=== PATIENT | female | born 1935 | race Caucasian/White ===

== ENCOUNTER 2016-11-03 | Outpatient (CLI) | payer MEDICARE, OTHER | END 2016-11-03 20:48 | disposition critical access hospital (66) | CPT/HCPCS: A0425; A0427 ==

== ENCOUNTER 2016-11-03 21:03 | Inpatient (IN) | payer MEDICARE, OTHER ==
[2016-11-03] MEDS ORDERED: IPRATROPIUM/ALBUTEROL 3 ML NEB INH STA (21:25)
[2016-11-03] MEDS ORDERED: DEXAMETHASONE 10 MG/ML VIAL IVP STA (21:26)
[2016-11-03] MEDS ORDERED: IPRATROPIUM/ALBUTEROL 3 ML NEB INH ONE (21:32)
[2016-11-03] MEDS ORDERED: DEXAMETHASONE 10 MG/ML VIAL ONE (21:35)
[2016-11-03] MEDS ORDERED: CHERRY SYRUP 10 ML UDC PO ONE (21:35)
[2016-11-03] MEDS ORDERED: OSELTAMIVIR 75 MG CAPSULE PO STA (22:00)
[2016-11-03] MEDS ORDERED: OSELTAMIVIR 75 MG CAPSULE PO ONE (22:03)
[2016-11-03] MEDS ORDERED: ALBUTEROL NEB 2.5 MG/3 ML INH STA ×2 (22:04→22:28)
[2016-11-03] MEDS ORDERED: ALBUTEROL NEB 2.5 MG/3 ML INH ONE ×2 (22:14→22:29)
[2016-11-03] MEDS ORDERED: ONDANSETRON 4 MG/2 ML VIAL IVP PRN (22:43)
[2016-11-03] MEDS ORDERED: SODIUM CHLORIDE FLUSH 0.9% 10 ML SYRINGE IVP PRN (22:43)
[2016-11-03] MEDS ORDERED: ACETAMINOPHEN 325 MG TABLET PO PRN (22:43)
[2016-11-03] MEDS ORDERED: PROCHLORPERAZINE 10 MG/2 ML VIAL IVP PRN (22:43)
[2016-11-03] MEDS ORDERED: HYDROcod/ACETAM 5/325 MG TABLET PO PRN (22:43)
[2016-11-03] MEDS ORDERED: ZOLPIDEM 5 MG TABLET PO PRN (22:43)
[2016-11-03] MEDS ORDERED: ALBUTEROL NEB 2.5 MG/3 ML INH PRN (22:43)
[2016-11-03] MEDS ORDERED: HYDROcod/ACETAM 10 MG/325 MG TABLET PO PRN (22:43)
[2016-11-03] MEDS: IPRATROPIUM/ALBUTEROL 3 ML NEB INH SCH (23:45)
[2016-11-04] MEDS: AZITHROMYCIN INJ 500 MG in SODIUM CHLORIDE 0.9% 250 ML IV SCH ×2 (00:12→22:51)
[2016-11-04] MEDS: methylPREDNISolone SUCCINATE 40 MG/ML VIAL IVP SCH ×3 (06:28→22:51)
[2016-11-04] MEDS: PANTOPRAZOLE 40 MG TABLET PO SCH (06:28)
[2016-11-04] MEDS: SODIUM CHLORIDE FLUSH 0.9% 10 ML SYRINGE IVP SCH ×3 (06:29→20:28)
[2016-11-04] MEDS: IPRATROPIUM/ALBUTEROL 3 ML NEB INH SCH ×4 (07:15→20:10)
[2016-11-04] MEDS: FENOFIBRATE 48 MG TABLET PO SCH (08:10)
[2016-11-04] MEDS: ASPIRIN EC 81 MG TABLET PO SCH (08:10)
[2016-11-04] MEDS: LISINOPRIL 5 MG TABLET PO SCH (08:10)
[2016-11-04] MEDS: LORATADINE 10 MG TABLET PO SCH (08:10)
[2016-11-04] MEDS: hydroCHLOROthiazide 25 MG TABLET PO SCH (08:11)
[2016-11-04] MEDS: METOPROLOL TARTRATE 50 MG TABLET PO SCH ×2 (08:11→20:27)
[2016-11-04] MEDS: OSELTAMIVIR 30 MG CAPSULE PO SCH ×2 (08:11→20:26)
[2016-11-04] MEDS: ENOXAPARIN 40 MG/0.4 ML SYRINGE SUBQ SCH (08:13)
[2016-11-04] MEDS: POLYETHYLENE GLYCOL 3350 17 GM PACKET PO SCH (08:14)
[2016-11-04] MEDS ORDERED: LOSARTAN 50 MG TABLET PO SCH (09:00)
[2016-11-04] MEDS: INSULIN ASPART 300 UNIT/3 ML PEN SUBQ SCH ×2 (17:10→20:27)
[2016-11-04] MEDS ORDERED: ATORVASTATIN 40 MG TABLET PO SCH (21:00)
[2016-11-05] MEDS: PANTOPRAZOLE 40 MG TABLET PO SCH (06:18)
[2016-11-05] MEDS: methylPREDNISolone SUCCINATE 40 MG/ML VIAL IVP SCH (06:19)
[2016-11-05] MEDS: SODIUM CHLORIDE FLUSH 0.9% 10 ML SYRINGE IVP SCH (06:19)
[2016-11-05] MEDS: ENOXAPARIN 40 MG/0.4 ML SYRINGE SUBQ SCH (08:07)
[2016-11-05] MEDS: METOPROLOL TARTRATE 50 MG TABLET PO SCH (08:07)
[2016-11-05] MEDS: OSELTAMIVIR 30 MG CAPSULE PO SCH (08:10)
[2016-11-05] MEDS: INSULIN ASPART 300 UNIT/3 ML PEN SUBQ SCH (08:10)
[2016-11-05] MEDS: FENOFIBRATE 48 MG TABLET PO SCH (08:10)
[2016-11-05] MEDS: hydroCHLOROthiazide 25 MG TABLET PO SCH (08:10)
[2016-11-05] MEDS: ASPIRIN EC 81 MG TABLET PO SCH (08:10)
[2016-11-05] MEDS: LISINOPRIL 5 MG TABLET PO SCH (08:10)
[2016-11-05] MEDS: LORATADINE 10 MG TABLET PO SCH (08:10)
[2016-11-05] MEDS: POLYETHYLENE GLYCOL 3350 17 GM PACKET PO SCH (08:36)
[2016-11-05] MEDS ORDERED: FERROUS SULFATE 325 MG TABLET PO SCH (09:00)
[2016-11-05] MEDS ORDERED: DOCUSATE SODIUM 250 MG CAPSULE PO SCH (09:00)
== END 2016-11-05 10:15 | disposition home or self-care (01) | DRG 194 ==
DX: J10.1 Influenza due to other identified influenza virus with other respiratory manifestations (principal); J44.1 Chronic obstructive pulmonary disease with (acute) exacerbation; J06.9 Acute upper respiratory infection, unspecified; J45.901 Unspecified asthma with (acute) exacerbation; E78.00 Pure hypercholesterolemia, unspecified; Z68.41 Body mass index [BMI] 40.0-44.9, adult; I10 Essential (primary) hypertension; Z79.82 Long term (current) use of aspirin; I25.10 Atherosclerotic heart disease of native coronary artery without angina pectoris; Z95.1 Presence of aortocoronary bypass graft; J45.909 Unspecified asthma, uncomplicated; Z95.5 Presence of coronary angioplasty implant and graft; I25.2 Old myocardial infarction; K21.9 Gastro-esophageal reflux disease without esophagitis; D72.829 Elevated white blood cell count, unspecified; T38.0X5A Adverse effect of glucocorticoids and synthetic analogues, initial encounter; E78.5 Hyperlipidemia, unspecified; Z85.3 Personal history of malignant neoplasm of breast; E66.01 Morbid (severe) obesity due to excess calories; Z81.1 Family history of alcohol abuse and dependence; Z77.22 Contact with and (suspected) exposure to environmental tobacco smoke (acute) (chronic); Z85.42 Personal history of malignant neoplasm of other parts of uterus; R09.02 Hypoxemia; M19.90 Unspecified osteoarthritis, unspecified site; M54.9 Dorsalgia, unspecified; M25.559 Pain in unspecified hip; G89.29 Other chronic pain; M25.562 Pain in left knee; M25.561 Pain in right knee; Z92.21 Personal history of antineoplastic chemotherapy; Z92.3 Personal history of irradiation

== ENCOUNTER 2017-11-08 17:08 | Outpatient (CLI) | payer MEDICARE, OTHER | END 2017-11-08 17:09 | disposition short-term general hospital (02) | LOC: EMS 17:08 | PROVIDERS: ATTEND Surgery | DX: R53.1 Weakness (principal); R42 Dizziness and giddiness; R06.02 Shortness of breath | CPT/HCPCS: A0425; A0429; A0888 ==

== ENCOUNTER 2017-11-25 08:00 | Outpatient (CLI) | payer MEDICARE, OTHER ==
[2017-11-25 19:29] LABS: INR 1.3 (0.8-1.2); PT - PROTHROMBIN TIME 14.2 secs (9.9-12.6)
[2017-11-25 19:35] LABS: CALCIUM 9.2 mg/dL (8.5-10.3); CREATININE 1.2 mg/dL (0.4-1.0)
== END 2017-11-25 23:59 | disposition home or self-care (01) ==
LOC: LAB.N 08:00
PROVIDERS: ATTEND Family Medicine
DX: I48.0 Paroxysmal atrial fibrillation (principal); I10 Essential (primary) hypertension; I50.20 Unspecified systolic (congestive) heart failure; E78.5 Hyperlipidemia, unspecified
CPT/HCPCS: 36415; 80048; 85610

== ENCOUNTER 2017-12-01 19:52 | Outpatient (CLI) | payer MEDICARE, OTHER | END 2017-12-01 19:53 | disposition critical access hospital (66) | LOC: EMS 19:52 | PROVIDERS: ATTEND Surgery | DX: R07.9 Chest pain, unspecified (principal) | CPT/HCPCS: A0425; A0427 ==

== ENCOUNTER 2017-12-01 20:13 | Emergency (ER) | payer MEDICARE, OTHER ==
--- NOTE | 2017-12-01 20:29 | ED Physician Documentation ---
PD HPI CHEST PAIN - Stated complaint Stated Complaint: CP - Chief complaint Chief Complaint: Cardiac - History obtained from History obtained from: Patient - History of Present Illness Timing - onset: Today (this morning) Timing - onset during: Rest Timing - details: Gradual onset, Now resolved, Waxing and waning Pain level now: 0 (at time of triage nurse's assessment, patient reported 3 (of 10) pain, but she tells me on my HPI that her symptoms have resolved) Quality: Other (burning) Location: Epigastric Radiation: Back, Other (chest) Improved by: Nothing Worsened by: Other (no exacerbating factors) Associated symptoms: Shortness of air (mild), Nausea, Vomiting (x 1). No: Feeling faint / dizzy, General Weakness, Palpitations Recently seen: Emergency Dept (T+R from ED 3 days ago; notes reviewed on MIN- NS and they reflect similar presentation with unremarkable w/u including blood tests and CT A/P with contrast) Review of Systems Constitutional: denies: Fever, Chills, Sweats Cardiac: reports: Chest pain / pressure. denies: Palpitations Respiratory: reports: Dyspnea. denies: Cough GI: reports: Abdominal Pain, Nausea, Vomiting. denies: Abdominal Swelling, Constipation, Diarrhea : denies: Dysuria, Frequency Musculoskeletal: reports: Back pain Neurologic: denies: Generalized weakness, Focal weakness, Numbness, Altered mental status, Headache PD PAST MEDICAL HISTORY - Past Medical History Cardiovascular: Hypertension, High cholesterol, Coronary artery disease, [place] Respiratory: Asthma, Pneumonia, Other Endocrine/Autoimmune: None GI: GERD, Colon polyps, Chronic diarrhea, Other : Kidney stones, Other HEENT: Other Psych: Anxiety, Other Musculoskeletal: Osteoarthritis, Chronic back pain Derm: None - Past Surgical History General: Cholecystectomy, Colonoscopy Ortho: Arthroscopic surgery /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 MANAGER: 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, Other Cardiovascular: CABG, Coronary stent - Present Medications Home Medications: Ambulatory Orders Medication Instructions Recorded Confirmed Albuterol Sulfate [Proair Hfa 2 puffs INH Q6H PRN 03/31/15 11/04/16 Inhaler] Aspirin [Aspir 81] 81 mg PO DAILY 03/31/15 11/03/16 Docusate Calcium 240 mg PO DAILY 03/31/15 11/03/16 Esomeprazole Magnesium 40 mg PO DAILY 03/31/15 11/03/16 Fenofibrate 160 mg PO DAILY 03/31/15 11/03/16 Hydrochlorothiazide 25 mg PO DAILY 03/31/15 11/03/16 Loratadine [Allergy Relief] 10 mg PO DAILY 03/31/15 11/03/16 Losartan Potassium 50 mg PO DAILY 03/31/15 11/03/16 Metoprolol Tartrate [Lopressor] 50 mg PO BID 03/31/15 11/03/16 [place]-3 Fatty Acids/Fish Oil 1 gm PO DAILY 03/31/15 11/04/16 [[place] 3 1,000 mg Softgel] Simvastatin 80 mg PO QPM 03/31/15 11/03/16 Docusate Sodium [Dss] 250 mg PO DAILY 11/04/16 11/04/16 Ferrous Sulfate 325 mg PO DAILY 11/04/16 11/04/16 Azithromycin 500 mg PO DAILY #3 tablet 11/05/16 Omeprazole [PriLOSEC] 10 mg PO QDAC #30 capsule 11/05/16 Oseltamivir [Tamiflu] 30 mg PO BID #16 capsule 11/05/16 - Allergies Allergies/Adverse Reactions: Allergies Allergy/AdvReac Type Severity Reaction Status Date / Time furosemide Allergy Intermediate Rash Verified 12/01/17 20:23 lisinopril AdvReac Mild Cough Verified 12/01/17 20:23 - Social History Does the pt smoke?: No Smoking Status: Never smoker Does the pt drink ETOH?: No Does the pt have substance abuse?: No - Immunizations Immunizations are current?: Yes PD ED PE NORMAL - Vitals Vital signs reviewed: Yes - General General: Alert and oriented X 3, No acute distress, Well developed/nourished - HEENT HEENT: Moist mucous membranes - Neck Neck: Supple, no meningeal sign - Cardiac Cardiac: RRR, No murmur - Respiratory Respiratory: No respiratory distress, Clear bilaterally - Abdomen Abdomen: Soft, Non tender, Non distended - Back Back: No CVA TTP - Derm Derm: Normal color, Warm and dry - Extremities Extremities: No edema - Neuro Neuro: Alert and oriented X 3 Results - Vitals Vitals: Vital Signs - 24 hr 12/01/17 12/01/17 12/01/17 20:15 20:20 21:00 Temperature 36.0 C L Heart Rate 67 68 Respiratory 16 23 Rate Blood Pressure 149/84 H 149/84 H Blood Pressure 149/84 H [Left] Blood Pressure 163/80 H [Right] O2 Saturation 95 96 12/01/17 12/01/17 21:31 22:40 Temperature 36.3 C L Heart Rate 68 69 Respiratory 18 18 Rate Blood Pressure 163/87 H 148/80 H Blood Pressure [Left] Blood Pressure [Right] O2 Saturation 94 97 Oxygen O2 Source Room air - EKG (time done) No standard instances Rate: Rate (enter#) (70) Rhythm: NSR [place]: Normal Intervals: Normal [place] QRS: Normal Ischemia: Normal ST segments, Non specific changes (flat T waves diffusely) - Labs Labs: Laboratory Tests 12/01/17 12/01/17 12/01/17 20:45 20:45 20:45 WBC 7.7 RBC 4.30 Hgb 12.9 Hct 39.5 MCV 91.9 MCH 30.0 MCHC 32.6 RDW 13.9 Plt Count 246 MPV 8.4 Neut # 5.5 Lymph # 1.5 [place] # 0.5 Eos # 0.1 Baso # 0.1 Absolute Nucleated RBC 0.00 Nucleated RBC % 0.0 PT INR APTT Sodium 135 Potassium 3.6 Chloride 102 Carbon Dioxide 24 Anion Gap 9.0 BUN 19 Creatinine 1.0 Estimated GFR (MDRD) 53 L Glucose 135 H Calcium 9.0 Total Bilirubin 0.3 AST 17 ALT 11 Alkaline Phosphatase 81 Troponin I < 0.04 Total Protein 6.7 Albumin 3.7 Globulin 3.0 Albumin/Globulin Ratio 1.2 Lipase 12 L Urine Color Urine Clarity Urine pH Ur Specific [place] Urine Protein Urine Glucose (UA) Urine Ketones Urine Occult Blood Urine Nitrite Urine Bilirubin Urine Urobilinogen Ur Leukocyte Esterase Ur Microscopic Review Urine Culture Comments 12/01/17 12/01/17 20:45 21:40 WBC RBC Hgb Hct MCV MCH MCHC RDW Plt Count MPV Neut # Lymph # [place] # Eos # Baso # Absolute Nucleated RBC Nucleated RBC % PT 29.7 H INR 2.7 H APTT 39.8 H Sodium Potassium Chloride Carbon Dioxide Anion Gap BUN Creatinine Estimated GFR (MDRD) Glucose Calcium Total Bilirubin AST ALT Alkaline Phosphatase Troponin I Total Protein Albumin Globulin Albumin/Globulin Ratio Lipase Urine Color YELLOW Urine Clarity CLEAR Urine pH 6.0 Ur Specific [place] 1.010 Urine Protein NEGATIVE Urine Glucose (UA) NEGATIVE Urine Ketones NEGATIVE Urine Occult Blood NEGATIVE Urine Nitrite NEGATIVE Urine Bilirubin NEGATIVE Urine Urobilinogen 0.2 (NORMAL) Ur Leukocyte Esterase NEGATIVE Ur Microscopic Review NOT INDICATED Urine Culture Comments NOT INDICATED PD MEDICAL DECISION MAKING - ED course Complexity details: reviewed old records (reviewed CT report and ED report from [facility] ED visit (on [facility] system)), reviewed results, re-evaluated patient, considered differential, d/w patient ED course: Patient remained asymptomatic during ED stay Departure - Departure Disposition: 01 Home, Self Care Clinical Impression: Chest pain, Abdominal pain Condition: Good Instructions: ED Abdominal Pain Unkn Cause, ED Chest Pain Atypical Unkn Cause Follow-Up: Ariela Mohan DO [Primary Care Provider] - (Tuesday as scheduled) Discharge Date/Time: 12/01/17 21:45
[2017-12-01 20:55] LABS: BASOPHILS # (AUTO) 0.1 10^3/uL (0.0-0.1); BASOPHILS % (AUTO) 0.8 %; EOSINOPHILS # (AUTO) 0.1 10^3/uL (0.0-0.7); EOSINOPHILS % (AUTO) 0.7 %; HGB - HEMOGLOBIN 12.9 g/dL (12.0-16.0); LYMPHOCYTES # (AUTO) 1.5 10^3/uL (1.5-3.5); LYMPHOCYTES % (AUTO) 19.6 %; MEAN CORPUSCULAR HGB CONC 32.6 g/dL (32.0-36.0); MEAN CORPUSCULAR VOLUME 91.9 fL (81.0-99.0); MEAN PLATELET VOLUME 8.4 fL (7.9-10.8); MONOCYTES # (AUTO) 0.5 10^3/uL (0.0-1.0); MONOCYTES % (AUTO) 6.5 %; NEUTROPHILS # (AUTO) 5.5 10^3/uL (1.5-6.6); NEUTROPHILS % (AUTO) 72.4 %; PLT - PLATELET COUNT 246 10^3/uL (130-450); RED CELL DISTRIBUTION WIDTH 13.9 % (12.0-15.0); WHITE BLOOD COUNT 7.7 x10^3/uL (4.8-10.8)
[2017-12-01 20:58] LABS: INR 2.7 (0.8-1.2); PT - PROTHROMBIN TIME 29.7 secs (9.9-12.6)
[2017-12-01 21:07] LABS: ALBUMIN 3.7 g/dL (3.2-5.5); ALBUMIN/GLOBULIN RATIO 1.2 (1.0-2.2); BILIRUBIN,TOTAL 0.3 mg/dL (0.2-1.0); TOTAL PROTEIN 6.7 g/dL (6.7-8.2)
[2017-12-01 21:46] LABS: BILIRUBIN,URINE NEGATIVE (NEGATIVE); GLUCOSE, URINE (UA) NEGATIVE (NEGATIVE); KETONES,URINE (UA) NEGATIVE (NEGATIVE); LEUKOCYTE ESTERASE, URINE NEGATIVE (NEGATIVE); NITRITE,URINE NEGATIVE (NEGATIVE); OCCULT BLOOD,URINE NEGATIVE (NEGATIVE); PROTEIN,URINE NEGATIVE (NEGATIVE); UROBILINOGEN,URINE 0.2 (NORMAL) E.U./dL (NORMAL)
[2017-12-01 21:47] LABS: CLARITY,URINE CLEAR (CLEAR)
[2017-12-01 22:48] VITALS: BP 148/80
== END 2017-12-01 21:45 | disposition home or self-care (01) ==
LOC: ED 20:13
DX: R07.9 Chest pain, unspecified (principal); R10.9 Unspecified abdominal pain; I45.81 Long QT syndrome; I10 Essential (primary) hypertension; I25.2 Old myocardial infarction; I25.10 Atherosclerotic heart disease of native coronary artery without angina pectoris; E78.00 Pure hypercholesterolemia, unspecified; Z95.1 Presence of aortocoronary bypass graft; Z95.5 Presence of coronary angioplasty implant and graft; Z79.82 Long term (current) use of aspirin
CPT/HCPCS: 36415; 80053; 81001; 81003; 83690; 84484; 85025; 85610; 85730; 87086; 93005; 99283; 99284

== ENCOUNTER 2017-12-13 10:10 | Outpatient (CLI) | payer MEDICARE, OTHER ==
[2017-12-13 13:31] LABS: GLUCOSE, URINE (UA) NEGATIVE (NEGATIVE); KETONES,URINE (UA) NEGATIVE (NEGATIVE); LEUKOCYTE ESTERASE, URINE MODERATE (NEGATIVE); NITRITE,URINE NEGATIVE (NEGATIVE); OCCULT BLOOD,URINE SMALL (NEGATIVE); PH,URINE 5.5 PH (5.0-7.5); PROTEIN,URINE NEGATIVE (NEGATIVE); UROBILINOGEN,URINE 0.2 (NORMAL) E.U./dL (NORMAL)
[2017-12-13 13:34] LABS: BILIRUBIN,URINE NEGATIVE (NEGATIVE); CLARITY,URINE CLOUDY (CLEAR); ICTOTEST,URINE NEGATIVE
[2017-12-13 13:41] LABS: BACTERIA,URINE Many /HPF (None Seen); RBC,URINE 0-5 /HPF (0-5); SQUAMOUS EPITHELIAL CELL,UR FEW Squamous (<= Few)
== END 2017-12-13 10:11 | disposition home or self-care (01) ==
LOC: LAB.R 10:10
PROVIDERS: ATTEND Psychiatry & Neurology Neurology
DX: R30.0 Dysuria (principal)
CPT/HCPCS: 81001; 81003; 87086

== ENCOUNTER 2017-12-14 12:00 | Outpatient (CLI) | payer MEDICARE, OTHER | END 2017-12-14 12:01 | disposition home or self-care (01) | LOC: LAB.R 12:00 | PROVIDERS: ATTEND Family Medicine | DX: R19.7 Diarrhea, unspecified (principal) | CPT/HCPCS: 87045; 87046; 87177; 87209; 87493 ==

== ENCOUNTER 2018-01-01 04:00 | Outpatient (CLI) | payer MEDICARE, OTHER ==
[2018-01-02 19:08] LABS: BILIRUBIN,URINE NEGATIVE (NEGATIVE); GLUCOSE, URINE (UA) NEGATIVE (NEGATIVE); KETONES,URINE (UA) NEGATIVE (NEGATIVE); LEUKOCYTE ESTERASE, URINE SMALL (NEGATIVE); NITRITE,URINE NEGATIVE (NEGATIVE); OCCULT BLOOD,URINE NEGATIVE (NEGATIVE); PH,URINE 5.5 PH (5.0-7.5); PROTEIN,URINE NEGATIVE (NEGATIVE); UROBILINOGEN,URINE 0.2 (NORMAL) E.U./dL (NORMAL)
[2018-01-02 19:17] LABS: CLARITY,URINE HAZY (CLEAR)
[2018-01-02 19:36] LABS: BACTERIA,URINE Many /HPF (None Seen); RBC,URINE 0-5 /HPF (0-5); SQUAMOUS EPITHELIAL CELL,UR FEW Squamous (<= Few)
== END 2018-01-02 08:01 | disposition home or self-care (01) ==
LOC: LAB.N 04:00
PROVIDERS: ATTEND Family Medicine
DX: R30.0 Dysuria (principal)
CPT/HCPCS: 81001; 81003; 87086

== ENCOUNTER 2018-01-18 12:30 | Outpatient (CLI) | payer MEDICARE, OTHER | END 2018-01-18 12:31 | disposition critical access hospital (66) | LOC: EMS 12:30 | PROVIDERS: ATTEND Surgery | DX: R47.81 Slurred speech (principal) | CPT/HCPCS: A0425; A0427 ==

== ENCOUNTER 2018-01-18 12:52 | Emergency (ER) | payer MEDICARE, OTHER ==
[2018-01-18 13:11] VITALS: BP 146/82
--- NOTE | 2018-01-18 13:12 | ED Physician Documentation ---
PD HPI FOCAL NEURO - Stated complaint Stated Complaint: POSS STROKE - Chief complaint Chief Complaint: Neuro - History obtained from History obtained from: Patient, EMS, Other (records review) - History of Present Illness Timing - onset: Other (82-year-old woman who per EMS report had stroke with left -sided deficits a couple of months ago. She is a history of A. fib, CABG. She is not currently on anticoagulation. She is also had uterine cancer, breast cancer. She is undergoing home health care, recently had diarrheal illness which has resolved. C. difficile tests and cultures were negative per report. She presents to the emergency department because over the last few days she has had difficulty using the right lower extremity, it is burning and giving out on her.) Review of Systems Ten Systems: 10 systems reviewed and negative Constitutional: denies: Fever, Chills Cardiac: denies: Chest pain / pressure, Palpitations Respiratory: denies: Dyspnea, Cough GI: reports: Nausea, Vomiting, Diarrhea. 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: 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, Other Cardiovascular: CABG, Coronary stent - Present Medications Home Medications: Ambulatory Orders Medication Instructions Recorded Confirmed Albuterol Sulfate [Proair Hfa 2 puffs INH Q6H PRN 03/31/15 11/04/16 Inhaler] Aspirin [Aspir 81] 81 mg PO DAILY 03/31/15 11/03/16 Docusate Calcium 240 mg PO DAILY 03/31/15 11/03/16 Esomeprazole Magnesium 40 mg PO DAILY 03/31/15 11/03/16 Fenofibrate 160 mg PO DAILY 03/31/15 11/03/16 Hydrochlorothiazide 25 mg PO DAILY 03/31/15 11/03/16 Loratadine [Allergy Relief] 10 mg PO DAILY 03/31/15 11/03/16 Losartan Potassium 50 mg PO DAILY 03/31/15 11/03/16 Metoprolol Tartrate [Lopressor] 50 mg PO BID 03/31/15 11/03/16 [place]-3 Fatty Acids/Fish Oil 1 gm PO DAILY 03/31/15 11/04/16 [[place] 3 1,000 mg Softgel] Simvastatin 80 mg PO QPM 03/31/15 11/03/16 Docusate Sodium [Dss] 250 mg PO DAILY 11/04/16 11/04/16 Ferrous Sulfate 325 mg PO DAILY 11/04/16 11/04/16 Azithromycin 500 mg PO DAILY #3 tablet 11/05/16 Omeprazole [PriLOSEC] 10 mg PO QDAC #30 capsule 11/05/16 Oseltamivir [Tamiflu] 30 mg PO BID #16 capsule 11/05/16 - Allergies Allergies/Adverse Reactions: Allergies Allergy/AdvReac Type Severity Reaction Status Date / Time furosemide Allergy Intermediate Rash Verified 12/01/17 20:23 lisinopril AdvReac Mild Cough Verified 12/01/17 20:23 - Social History Does the pt smoke?: No Smoking Status: Never smoker Does the pt drink ETOH?: No Does the pt have substance abuse?: No - Family History Family history: reports: Non contributory - Immunizations Immunizations are current?: Yes - POLST Patient has POLST: No PD ED PE NORMAL - Vitals Vital signs reviewed: Yes - General General: No acute distress, Well developed/nourished, Other (She is oriented to person and place but is fuzzy on the date) - HEENT HEENT: PERRL, EOMI - Neck Neck: Supple, no meningeal sign, No bony TTP - Cardiac Cardiac: RRR, No murmur - Respiratory Respiratory: No respiratory distress, Clear bilaterally - Abdomen Abdomen: Normal bowel sounds, Soft, Non tender - Derm Derm: Normal color, Warm and dry - Extremities Extremities: Other (The right lower extremity is pulseless, and unable to identify pedal pulses by hand or with the Doppler. It is slightly discolored compared to the left and is diffusely tender. She has normal radial pulses on the right.) - Neuro Neuro: traffic line painter 2-12 intact Eye Opening: Spontaneous Motor: Obeys Commands Verbal: Confused (slight) GCS Score: 14 - Psych Psych: Normal mood, Normal affect NIHSS - Time Time: 14:05 - Level of Consciousness Level of consciousness: (0) Alert, Keenly responsive LOC Questions: (1) Answers one Q correctly (says it is November) LOC Commands: (0) Performs both correctly - Gaze Best Gaze: (0) Normal - Visual Visual: (0) No loss - Facial Palsy Facial Palsy: (0) Normal, symmetrical movement - Motor Arms (both separate) Motor Arm (right): (0) No drift Motor Arm (left): (0) No drift - Motor Legs (both separate) Motor Leg (right): (1) Drift Motor Leg (left): (1) Drift - Limb Ataxia Limb Ataxia: (0) Absent - Sensory Sensory: (0) Normal - Best Language Best Language: (0) No aphasia - Dysarthria Dysarthria: (0) Normal - Extinction and Inattention (formally neg Extinction and inattention: (0) No abnormality - Total Score/Results Total Score/Result: 3 Results - Vitals Vitals: Vital Signs - 24 hr 01/18/18 01/18/18 12:42 13:11 Temperature 36.2 C L Heart Rate 90 88 Respiratory 18 16 Rate Blood Pressure 145/76 H 146/82 H O2 Saturation 99 99 Oxygen O2 Source Room air - EKG (time done) 1303 Rate: Rate (enter#) (91) Rhythm: NSR [place]: Normal Intervals: Normal [place] QRS: Normal Ischemia: Non specific changes Computer interpretation: Agree with computer - Labs Labs: Laboratory Tests 01/18/18 01/18/18 01/18/18 13:13 13:13 13:13 WBC 8.3 RBC 3.75 L Hgb 11.6 L Hct 35.1 L MCV 93.7 MCH 31.0 MCHC 33.1 RDW 15.2 H Plt Count 205 MPV 7.9 Neut # 6.3 Lymph # 1.4 L [place] # 0.5 Eos # 0.1 Baso # 0.0 Absolute Nucleated RBC 0.00 Nucleated RBC % 0.0 PT 11.7 INR 1.0 Sodium 137 Potassium 2.8 L Chloride 102 Carbon Dioxide 24 Anion Gap 11.0 BUN 13 Creatinine 1.3 H Estimated GFR (MDRD) 39 L Glucose 123 H Lactic Acid Calcium 8.8 Total Bilirubin 0.9 AST 32 ALT 15 Alkaline Phosphatase 72 Total Protein 6.4 L Albumin 3.4 Globulin 3.0 Albumin/Globulin Ratio 1.1 Lipase 12 L Urine Color Urine Clarity Urine pH Ur Specific [place] Urine Protein Urine Glucose (UA) Urine Ketones Urine Occult Blood Urine Nitrite Urine Bilirubin Urine Urobilinogen Ur Leukocyte Esterase Ur Microscopic Review Urine Culture Comments 01/18/18 01/18/18 13:13 14:21 WBC RBC Hgb Hct MCV MCH MCHC RDW Plt Count MPV Neut # Lymph # [place] # Eos # Baso # Absolute Nucleated RBC Nucleated RBC % PT INR Sodium Potassium Chloride Carbon Dioxide Anion Gap BUN Creatinine Estimated GFR (MDRD) Glucose Lactic Acid 1.4 Calcium Total Bilirubin AST ALT Alkaline Phosphatase Total Protein Albumin Globulin Albumin/Globulin Ratio Lipase Urine Color YELLOW Urine Clarity CLEAR Urine pH 5.5 Ur Specific [place] 1.020 Urine Protein NEGATIVE Urine Glucose (UA) NEGATIVE Urine Ketones NEGATIVE Urine Occult Blood NEGATIVE Urine Nitrite NEGATIVE Urine Bilirubin NEGATIVE Urine Urobilinogen 0.2 (NORMAL) Ur Leukocyte Esterase NEGATIVE Ur Microscopic Review NOT INDICATED Urine Culture Comments NOT INDICATED - Rads (name of study) CT Head Radiology: EMP read contemporaneously (Old Lg Right parietal infarct) 2v chest Radiology: EMP read contemporaneously (NAD) RLE arterial duplex Radiology: Discussed with rads (Per Dr. 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 She presents as a stroke code with right leg not working but also pain and is found on exam to have a pulseless leg. She was sent over to ultrasound which confirmed that she had a large arterial occlusion in that leg, she was started on a heparin drip and the case was discussed by phone with Dr. Tobias, the vascular surgeon at [facility] who accepted the patient and would like her flown because he anticipates she will need to go to the operating room posthaste. [place] were completed. Departure - Departure Disposition: 02 Transfer Acute Care Hosp Clinical Impression: Arterial occlusion, lower extremity, Stroke-like symptoms Condition: Serious Discharge Date/Time: 01/18/18 15:20
[2018-01-18 13:20] LABS: BASOPHILS % (AUTO) 0.4 %; EOSINOPHILS # (AUTO) 0.1 10^3/uL (0.0-0.7); EOSINOPHILS % (AUTO) 1.1 %; HGB - HEMOGLOBIN 11.6 g/dL (12.0-16.0); LYMPHOCYTES # (AUTO) 1.4 10^3/uL (1.5-3.5); LYMPHOCYTES % (AUTO) 16.9 %; MEAN CORPUSCULAR HGB CONC 33.1 g/dL (32.0-36.0); MEAN CORPUSCULAR VOLUME 93.7 fL (81.0-99.0); MEAN PLATELET VOLUME 7.9 fL (7.9-10.8); MONOCYTES # (AUTO) 0.5 10^3/uL (0.0-1.0); MONOCYTES % (AUTO) 5.8 %; NEUTROPHILS # (AUTO) 6.3 10^3/uL (1.5-6.6); NEUTROPHILS % (AUTO) 75.8 %; PLT - PLATELET COUNT 205 10^3/uL (130-450); RED BLOOD COUNT 3.75 10^6/uL (4.20-5.40); RED CELL DISTRIBUTION WIDTH 15.2 % (12.0-15.0); WHITE BLOOD COUNT 8.3 x10^3/uL (4.8-10.8)
[2018-01-18 13:27] LABS: PT - PROTHROMBIN TIME 11.7 secs (9.9-12.6)
[2018-01-18 13:33] LABS: ALBUMIN 3.4 g/dL (3.2-5.5); ALBUMIN/GLOBULIN RATIO 1.1 (1.0-2.2); BILIRUBIN,TOTAL 0.9 mg/dL (0.2-1.0); CALCIUM 8.8 mg/dL (8.5-10.3); CREATININE 1.3 mg/dL (0.4-1.0); TOTAL PROTEIN 6.4 g/dL (6.7-8.2)
--- NOTE | 2018-01-18 13:51 | CT Preliminary Report ---
Exam: CT HEAD W/O IMPRESSION: 1. No acute hemorrhage or mass effect. 2. 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 [facility] SITE ID: [id number]
--- NOTE | 2018-01-18 13:51 | CT Report ---
EXAM: CT HEAD EXAM DATE: 01/18/2018 01:26 PM. CLINICAL HISTORY: R side defects. COMPARISON: None. TECHNIQUE: Multiaxial CT images were obtained from the foramen magnum to the vertex. Reformats: Coron al. IV contrast: None. In accordance with CT protocol optimization, one or more of the following dose reduction techniques w ere utilized for this exam: automated exposure control, adjustment of mA and/or KV based on patient s ize, or use of iterative reconstructive technique. FINDINGS: Parenchyma: There is a moderate to large chronic-appearing area of encephalomalacia in the right temp oral lobe and parietal lobe. Negative for acute intracranial hemorrhage. There is no midline shift. N o herniation. Extraaxial Spaces: Normal for age. No subdural or epidural collections identified. Ventricles: Normal in size and position. Sinuses and Orbits: Imaged paranasal sinuses, orbits, and mastoids show no significant abnormality. Bones: There is an incidental calcified mass in the anterior right scalp measuring 9 mm in diameter. There is no calvarium fracture. Other: None. IMPRESSION: 1. No acute hemorrhage or mass effect. 2. 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 [facility] Referring Provider Line: [phone] SITE ID: [id number]
--- NOTE | 2018-01-18 14:00 | XRAY Report ---
EXAM: CHEST RADIOGRAPHY EXAM DATE: 01/18/2018 01:33 PM. CLINICAL HISTORY: CVA, afib. COMPARISON: 11/03/2016. TECHNIQUE: 2 views. FINDINGS: Lungs/Pleura: No focal opacities evident. No pleural effusion. No pneumothorax. Normal volumes. Mediastinum: Previous median sternotomy noted. Trachea is midline. Other: None. IMPRESSION: No acute cardiopulmonary abnormality. [facility] Referring Provider Line: [phone] SITE ID: [id number]
--- NOTE | 2018-01-18 14:00 | XRAY Preliminary Report ---
Exam: XR CHEST 2 VIEW X-RAY IMPRESSION: No acute cardiopulmonary abnormality. [facility] SITE ID: [id number]
[2018-01-18] MEDS ORDERED: HEPARIN 25000UNITS/500ML (D5W) 25,000 UNIT/500 ML BAG IV STA (14:04)
[2018-01-18] MEDS ORDERED: HEPARIN 5,000 UNIT/ML VIAL IVP ONE (14:04)
[2018-01-18] MEDS ORDERED: POTASSIUM CHLOR 10 MEQ/100 ML 10 MEQ/100 ML BAG IV ONE (14:27)
[2018-01-18 14:29] LABS: BILIRUBIN,URINE NEGATIVE (NEGATIVE); GLUCOSE, URINE (UA) NEGATIVE (NEGATIVE); KETONES,URINE (UA) NEGATIVE (NEGATIVE); LEUKOCYTE ESTERASE, URINE NEGATIVE (NEGATIVE); NITRITE,URINE NEGATIVE (NEGATIVE); OCCULT BLOOD,URINE NEGATIVE (NEGATIVE); PH,URINE 5.5 PH (5.0-7.5); PROTEIN,URINE NEGATIVE (NEGATIVE); UROBILINOGEN,URINE 0.2 (NORMAL) E.U./dL (NORMAL)
[2018-01-18 14:31] LABS: CLARITY,URINE CLEAR (CLEAR)
--- NOTE | 2018-01-18 15:19 | Ultrasound Report ---
EXAM: RIGHT LEG ARTERIAL DUPLEX 01/18/2018 CLINICAL INDICATION: Pulseless right leg. TECHNIQUE: Real-time sonographic vascular imaging was performed by the parachute manufacturing supervisor through the RIGHT lower extremity utilizing both color flow and Doppler spectral analysis. Multiple patient service representative static images were saved for review. RIGHT SIDE SITE PSV WAVEFORM STEN SMOKING PIPE MOUNTER -- occluded -- PSFA -- occluded -- MSFA -- occluded -- DSFA 14 monophasic -- PFA -- occluded -- POP 11 monophasic -- ZENIA 4 monophasic -- WARP SPLITTER 9 monophasic -- PER -- not well seen -- DPA -- not well seen -- FINDINGS: There is no arterial flow in the right common femoral, proximal superficial femoral, profunda femoris, or mid superficial femoral artery. There is a collateral vessel providing inflow to the distal superficial femoral artery, with monophasic flow in the distal superficial femoral, popliteal, anterior tibial, and posterior tibial arteries. The peroneal artery and dorsalis pedis were not identified. Scanning up the right external iliac flow demonstrates a small amount of flow proximally, with occlusion in the mid portion. IMPRESSION: RIGHT LEG EXTERNAL ILIAC ARTERY, COMMON FEMORAL, AND SUPERFICIAL FEMORAL OCCLUSION, WITH COLLATERAL RECONSTITUTION IN THE RIGHT DISTAL SUPERFICIAL FEMORAL ARTERY PROVIDING MONOPHASIC FLOW INTO THE CALF. CRITICAL RESULT: Results called to Dr. Segundo in the emergency department on at 2 p.m. TD: 01/18/2018 15:18 MTDD
== END 2018-01-18 15:20 | disposition short-term general hospital (02) ==
LOC: EDUNIT# → ED 12:52
DX: I74.3 Embolism and thrombosis of arteries of the lower extremities (principal); I74.5 Embolism and thrombosis of iliac artery; I25.10 Atherosclerotic heart disease of native coronary artery without angina pectoris; E78.00 Pure hypercholesterolemia, unspecified; I10 Essential (primary) hypertension; I25.2 Old myocardial infarction; C50.919 Malignant neoplasm of unspecified site of unspecified female breast; C55 Malignant neoplasm of uterus, part unspecified; R94.31 Abnormal electrocardiogram [ECG] [EKG]; I48.91 Unspecified atrial fibrillation; Z79.01 Long term (current) use of anticoagulants; Z86.73 Personal history of transient ischemic attack (TIA), and cerebral infarction without residual deficits; Z95.5 Presence of coronary angioplasty implant and graft; Z95.1 Presence of aortocoronary bypass graft; Z79.82 Long term (current) use of aspirin
CPT/HCPCS: 36415; 51701; 70450; 71046; 80053; 81001; 81003; 83605; 83690; 85025; 85610; 87086; 93005; 96365; 96375; 96376; 99284; 99285

== ENCOUNTER 2018-02-06 08:00 | Outpatient (CLI) | payer MEDICARE, OTHER ==
[2018-02-06 22:50] LABS: HGB - HEMOGLOBIN 9.3 g/dL (12.0-16.0); MEAN CORPUSCULAR HGB CONC 31.9 g/dL (32.0-36.0); MEAN CORPUSCULAR VOLUME 94.1 fL (81.0-99.0); MEAN PLATELET VOLUME 8.4 fL (7.9-10.8); RED BLOOD COUNT 3.11 10^6/uL (4.20-5.40); RED CELL DISTRIBUTION WIDTH 17.4 % (12.0-15.0); WHITE BLOOD COUNT 5.2 x10^3/uL (4.8-10.8)
== END 2018-02-06 23:59 ==
LOC: LAB.R 08:00
DX: G08 Intracranial and intraspinal phlebitis and thrombophlebitis (principal); I82.C11 Acute embolism and thrombosis of right internal jugular vein
CPT/HCPCS: 85027

== ENCOUNTER 2018-05-14 19:52 | Outpatient (CLI) | payer MEDICARE, OTHER | END 2018-05-14 19:53 | disposition critical access hospital (66) | LOC: EMS 19:52 | PROVIDERS: ATTEND Surgery | DX: R11.2 Nausea with vomiting, unspecified (principal); R10.9 Unspecified abdominal pain; R07.9 Chest pain, unspecified | CPT/HCPCS: A0425; A0427 ==

== ENCOUNTER 2018-05-14 20:15 | Inpatient (IN) | payer MEDICARE, OTHER ==
[2018-05-14] MEDS ORDERED: ONDANSETRON 4 MG/2 ML VIAL IVP STA (20:34)
--- NOTE | 2018-05-14 20:40 | ED Physician Documentation ---
PD HPI ABD PAIN - Stated complaint Stated Complaint: CHEST PAIN - Chief complaint Chief Complaint: General - History obtained from History obtained from: Patient - History of Present Illness Timing - onset: Today Timing - details: Gradual onset, Still present Quality: Cramping, Aching Location: All over / everywhere Radiation: Chest Similar symptoms before: Has not had sx before Recently seen: Not recently seen - Additional information Additional information: Patient is an 82 year old female with a history of cad and chronic yeast infections who is presenting to the emergency department for nausea, vomiting diarrhea abdominal pain and chest pain. patient reports that she has had the abdominal symptoms for the last two days but developed the chest pain about an hour ago. ems was called and patient was treated with nitro with no relief. Review of Systems Constitutional: reports: Chills. denies: Fever Eyes: reports: Reviewed and negative Nose: reports: Reviewed and negative Throat: reports: Reviewed and negative Cardiac: reports: Chest pain / pressure, Palpitations, Pedal edema Respiratory: denies: Dyspnea, Cough GI: reports: Abdominal Pain, Nausea, Vomiting, Diarrhea : denies: Dysuria, Frequency Musculoskeletal: reports: Back pain Neurologic: reports: Reviewed and negative PD PAST MEDICAL HISTORY - Past Medical History Cardiovascular: Hypertension, High cholesterol, Coronary artery disease, [place] Respiratory: Asthma, Pneumonia, Other Endocrine/Autoimmune: None GI: GERD, Colon polyps, Chronic diarrhea, Other : Kidney stones, Other HEENT: Other Psych: Anxiety, Other Musculoskeletal: Osteoarthritis, Chronic back pain Derm: None - Past Surgical History General: Cholecystectomy, Colonoscopy 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: 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, Other Cardiovascular: CABG, Coronary stent - Present Medications Home Medications: Ambulatory Orders Medication Instructions Recorded Confirmed Albuterol Sulfate [Proair Hfa 2 puffs INH Q6H PRN 03/31/15 11/04/16 Inhaler] Aspirin [Aspir 81] 81 mg PO DAILY 03/31/15 11/03/16 Docusate Calcium 240 mg PO DAILY 03/31/15 11/03/16 Esomeprazole Magnesium 40 mg PO DAILY 03/31/15 11/03/16 Fenofibrate 160 mg PO DAILY 03/31/15 11/03/16 Hydrochlorothiazide 25 mg PO DAILY 03/31/15 11/03/16 Loratadine [Allergy Relief] 10 mg PO DAILY 03/31/15 11/03/16 Losartan Potassium 50 mg PO DAILY 03/31/15 11/03/16 Metoprolol Tartrate [Lopressor] 50 mg PO BID 03/31/15 11/03/16 [place]-3 Fatty Acids/Fish Oil 1 gm PO DAILY 03/31/15 11/04/16 [[place] 3 1,000 mg Softgel] Simvastatin 80 mg PO QPM 03/31/15 11/03/16 Docusate Sodium [Dss] 250 mg PO DAILY 11/04/16 11/04/16 Ferrous Sulfate 325 mg PO DAILY 11/04/16 11/04/16 Azithromycin 500 mg PO DAILY #3 tablet 11/05/16 Omeprazole [PriLOSEC] 10 mg PO QDAC #30 capsule 11/05/16 Oseltamivir [Tamiflu] 30 mg PO BID #16 capsule 11/05/16 - Allergies Allergies/Adverse Reactions: Allergies Allergy/AdvReac Type Severity Reaction Status Date / Time furosemide Allergy Intermediate Rash Verified 05/14/18 20:25 lisinopril AdvReac Mild Cough Verified 05/14/18 20:25 - Social History Does the pt smoke?: No Smoking Status: Never smoker Does the pt drink ETOH?: No Does the pt have substance abuse?: No - Immunizations Immunizations are current?: Yes - POLST Patient has POLST: No PD ED PE NORMAL - Vitals Vital signs reviewed: Yes - General General: Alert and oriented X 3 - HEENT HEENT: Atraumatic - Cardiac Cardiac: RRR - Respiratory Respiratory: No respiratory distress, Clear bilaterally - Abdomen Abdomen: Soft - Neuro Neuro: Alert and oriented X 3, Normal speech Eye Opening: Spontaneous - Psych Psych: Normal mood PD ED PE EXPANDED - HEENT HEENT: Dry mucous membranes - Abdomen Abdomen: Tender to palpation, Epigastric, Generalized/diffuse. No: Rebound - Derm Derm: Other (rash in patient's diaper region consistent with yeast infection) Results - Vitals Vitals: Vital Signs - 24 hr 05/14/18 05/14/18 20:19 22:20 Temperature 36.6 C Heart Rate 89 96 Respiratory 18 15 Rate Blood Pressure 152/86 H 152/85 H O2 Saturation 95 100 Oxygen O2 Source Room air - EKG (time done) 2025 Rate: Rate (enter#) (93) Rhythm: NSR, Other (trigeminy) [place]: Normal Intervals: Normal MA Compare to prior EKG: Changed from prior EKG - Labs Labs: Laboratory Tests 05/14/18 05/14/18 05/14/18 20:49 20:49 20:49 WBC 6.7 RBC 4.01 L Hgb 11.6 L Hct 35.9 L MCV 89.4 MCH 29.0 MCHC 32.4 RDW 20.5 H Plt Count 253 MPV 8.5 Neut # (Auto) 4.0 Lymph # (Auto) 2.1 [place] # (Auto) 0.6 Eos # (Auto) 0.0 Baso # (Auto) 0.0 Absolute Nucleated RBC 0.00 Nucleated RBC % 0.0 Manual Slide Review Indicated Platelet Estimate NORMAL (130-450,000) Platelet Morphology NORMAL APPEARANCE RBC Morph Micro Appear 2+ POIKILOCYTOSIS Sodium 137 Potassium 2.5 L* Chloride 98 L Carbon Dioxide 25 Anion Gap 14.0 H BUN 7 Creatinine 0.5 Estimated GFR (MDRD) 119 Glucose 87 Calcium 8.3 L Total Bilirubin 1.0 AST 12 ALT < 10 L Alkaline Phosphatase 94 Troponin I < 0.04 B-Natriuretic Peptide Total Protein 6.1 L Albumin 2.6 L Globulin 3.5 Albumin/Globulin Ratio 0.7 L Lipase 27 Urine Color Urine Clarity Urine pH Ur Specific [place] Urine Protein Urine Glucose (UA) Urine Ketones Urine Occult Blood Urine Nitrite Urine Bilirubin Urine Urobilinogen Ur Leukocyte Esterase Ur Microscopic Review Urine Culture Comments 05/14/18 05/14/18 20:49 21:30 WBC RBC Hgb Hct MCV MCH MCHC RDW Plt Count MPV Neut # (Auto) Lymph # (Auto) [place] # (Auto) Eos # (Auto) Baso # (Auto) Absolute Nucleated RBC Nucleated RBC % Manual Slide Review Platelet Estimate Platelet Morphology RBC Morph Micro Appear Sodium Potassium Chloride Carbon Dioxide Anion Gap BUN Creatinine Estimated GFR (MDRD) Glucose Calcium Total Bilirubin AST ALT Alkaline Phosphatase Troponin I B-Natriuretic Peptide 96 Total Protein Albumin Globulin Albumin/Globulin Ratio Lipase Urine Color LT. YELLOW Urine Clarity CLEAR Urine pH 6.0 Ur Specific [place] <=1.005 Urine Protein NEGATIVE Urine Glucose (UA) NEGATIVE Urine Ketones 15 H Urine Occult Blood NEGATIVE Urine Nitrite NEGATIVE Urine Bilirubin NEGATIVE Urine Urobilinogen 0.2 (NORMAL) Ur Leukocyte Esterase NEGATIVE Ur Microscopic Review NOT INDICATED Urine Culture Comments NOT INDICATED - Rads (name of study) ct abd pelvis Radiology: Final report received (no acute intrabdominal pathology) PD MEDICAL DECISION MAKING - ED course Complexity details: reviewed old records, reviewed results, re-evaluated patient , considered differential, d/w patient, d/w family, d/w sr 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 Iv access was gained and labs were drawn. patient was treated with fluids, and zofran. Imaging was ordered. ekg was performed and patient was found to be in trigeminy. Patient's was found to be hypokalemic at 2.5 and potassium was started. Patient's other diagnostics were relatively unremarkable. case was discussed with the hospitalist and patient was placed in observation for further care. - Sepsis Event Vital Signs: Vital Signs - 24 hr 05/14/18 05/14/18 20:19 22:20 Temperature 36.6 C Heart Rate 89 96 Respiratory 18 15 Rate Blood Pressure 152/86 H 152/85 H O2 Saturation 95 100 Oxygen O2 Source Room air Departure - Departure Disposition: ED Place in Observation Clinical Impression: Hypokalemia, Abdominal pain Condition: Stable
[2018-05-14 20:56] LABS: BASOPHILS % (AUTO) 0.4 %; EOSINOPHILS % (AUTO) 0.4 %; HGB - HEMOGLOBIN 11.6 g/dL (12.0-16.0); LYMPHOCYTES # (AUTO) 2.1 10^3/uL (1.5-3.5); LYMPHOCYTES % (AUTO) 31.6 %; MEAN CORPUSCULAR HGB CONC 32.4 g/dL (32.0-36.0); MEAN CORPUSCULAR VOLUME 89.4 fL (81.0-99.0); MEAN PLATELET VOLUME 8.5 fL (7.9-10.8); MONOCYTES # (AUTO) 0.6 10^3/uL (0.0-1.0); MONOCYTES % (AUTO) 8.3 %; NEUTROPHILS % (AUTO) 59.3 %; PLT - PLATELET COUNT 253 10^3/uL (130-450); RED BLOOD COUNT 4.01 10^6/uL (4.20-5.40); RED CELL DISTRIBUTION WIDTH 20.5 % (12.0-15.0); WHITE BLOOD COUNT 6.7 x10^3/uL (4.8-10.8)
[2018-05-14 21:10] LABS: ALBUMIN 2.6 g/dL (3.2-5.5); ALBUMIN/GLOBULIN RATIO 0.7 (1.0-2.2); ALKALINE PHOSPHATASE 94 IU/L (42-121); ALT ALANINE AMINOTRANSFERASE < 10 IU/L (10-60); AST ASPARTATE AMINOTRANSFERASE 12 IU/L (10-42); BUN - BLOOD UREA NITROGEN 7 mg/dL (6-20); CALCIUM 8.3 mg/dL (8.5-10.3); CARBON DIOXIDE - CO2 25 mmol/L (21-32); CHLORIDE 98 mmol/L (101-111); CREATININE 0.5 mg/dL (0.4-1.0); GFR - MDRD 119 (>89); GLUCOSE 87 mg/dL (70-100); LIPASE 27 U/L (22-51); SODIUM 137 mmol/L (135-145); TOTAL PROTEIN 6.1 g/dL (6.7-8.2)
[2018-05-14 21:12] LABS: PLATELET ESTIMATE, MANUAL NORMAL (130-450,000) (NORMAL); PLATELET MORPHOLOGY NORMAL APPEARANCE (NORMAL)
[2018-05-14] MEDS ORDERED: SODIUM CHLORIDE 0.9% 1,000 ML IV ONE (21:29)
[2018-05-14] MEDS ORDERED: POTASSIUM CHLOR 10 MEQ/100 ML 10 MEQ/100 ML BAG IV ONE (21:29)
[2018-05-14 21:48] LABS: GLUCOSE, URINE (UA) NEGATIVE (NEGATIVE); KETONES,URINE (UA) 15 mg/dL (NEGATIVE); LEUKOCYTE ESTERASE, URINE NEGATIVE (NEGATIVE); NITRITE,URINE NEGATIVE (NEGATIVE); OCCULT BLOOD,URINE NEGATIVE (NEGATIVE); PROTEIN,URINE NEGATIVE (NEGATIVE); UROBILINOGEN,URINE 0.2 (NORMAL) E.U./dL (NORMAL)
[2018-05-14 21:50] LABS: BILIRUBIN,URINE NEGATIVE (NEGATIVE); CLARITY,URINE CLEAR (CLEAR); ICTOTEST,URINE NEGATIVE
[2018-05-14] MEDS ORDERED: IOPAMIDOL-300 100 ML VIAL ONE (21:52)
[2018-05-14] MEDS ORDERED: IOPAMIDOL-300 100 ML VIAL IVP ONE (23:17)
--- NOTE | 2018-05-14 23:31 | CT Report ---
Procedure Date: 05/14/2018 Accession Number: [id number] / [id number] Procedure: CT - Abdomen/Pelvis W/ CPT Code: FULL RESULT: EXAM: CT ABDOMEN AND PELVIS EXAM DATE: 05/14/2018 10:59 PM. CLINICAL HISTORY: Diffuse abdomen pain. Nausea and vomiting for 2 days. COMPARISONS: None. TECHNIQUE: Routine helical CT imaging was performed through the abdomen and pelvis. IV contrast: 100 cc of Isovue-300. Enteric contrast: No. Reconstructions: Coronal and sagittal. In accordance with CT protocol optimization, one or more of the following dose reduction techniques were utilized for this exam: automated exposure control, adjustment of mA and/or KV based on patient size, or use of iterative reconstructive technique. FINDINGS: Lung Bases: Coronary artery calcification noted. Liver: Normal. No masses. Gallbladder/Bile Ducts: Cholecystectomy. No dilated ducts. Spleen: Normal. Pancreas: Normal. Adrenal Glands: Normal. Kidneys: Small right upper pole cyst, otherwise unremarkable. Peritoneal Cavity/Bowel: Mild diverticulosis. No free fluid, free air or adenopathy. No masses or acute inflammatory process. The appendix is well visualized and normal. Pelvic Organs: 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. Unremarkable bladder. Vasculature: No aortic enlargement. Moderate atherosclerotic calcification Bones: No significant abnormality. Other: None. IMPRESSION: 1. Mild diverticulosis without diverticulitis or other acute bowel abnormality. 2. Cholecystectomy and hysterectomy noted. RADIA
[2018-05-15] MEDS ORDERED: TEMAZEPAM 15 MG CAPSULE PO PRN (00:16)
[2018-05-15] MEDS ORDERED: FLUCONAZOLE 100 MG TABLET PO STA (00:28)
--- NOTE | 2018-05-15 00:30 | HISTORY & PHYSICAL EXAMINATION ---
Chief Complaint - Chief Complaint Chief Complaint: Nausea, vomiting, abdominal and chest pain History of Present Illness - Admitted From Admitted From:: home - History Obtained From History obtained from: Pt, Pt's son, ED physician - History of Present Illness HPI Comment/Other: Mrs. Pina Middleton is a very pleasant 82-year-old female who lives with her son and has a past medical history significant for coronary artery disease, status post coronary artery bypass graft 8 or 9 years ago, left breast cancer, morbid obesity, uterine cancer, hypertension, hyperlipidemia, COPD, osteoarthritis, and gastroesophageal reflux disease. She also has a history of chronic yeast infections. Over the past few days the patient has been having increasing abdominal discomfort with nausea and vomiting; she had diarrhea 2 days ago. Her son brought her to the emergency department where she was examined and found to be in mild distress. Initial labs found the patient have significant hypokalemia with a potassium level of 2.5., And a mildly elevated anion gap of 14. She is also found to be malnourished with total protein of 6.1 and albumin of 2.6. Initial troponin was negative. A BNP was done which was within normal limits, 96. A urinalysis was done which was negative for any urinary tract infection, and a CT scan of the abdomen and pelvis was positive only for mild diverticulosis without diverticulitis or other acute bowel abnormality and noted that the patient had undergone a cholecystectomy and hysterectomy in the past. At this time, given the patient's significant hypokalemia at 2.5, her weakness and probable dehydrated state, and it is felt to be prudent to bring her into the hospital in an observation bed on telemetry, replace her electrolyte abnormalities, and rehydrate her. We will continue with the serial troponins and treat her comorbidities. 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, Other Cardiovascular: reports: CABG, Coronary stent - Family & Social History Family History: Mother: (Mother in childbirth), Father: , Cancer (Father of throat cancer), Sister: , Diabetes, Type 2, Brother: , CAD, Hyperlipidemia, Hypertension, [place] Living arrangement: At home Living Situation: With family - Substance History Use: Uses substance without health or social issues: NONE Abuse: Recurrent use of substance despite neg consequences: NONE Dependence: Experiences withdrawal or developed tolerances: NONE - POLST Patient has POLST: No POLST Status: Full Code Meds/Allgy - Home Medications Home Medications: Ambulatory Orders Medication Instructions Recorded Confirmed Albuterol Sulfate [Proair Hfa 2 puffs INH Q6H PRN 03/31/15 11/04/16 Inhaler] Aspirin [Aspir 81] 81 mg PO DAILY 03/31/15 11/03/16 Docusate Calcium 240 mg PO DAILY 03/31/15 11/03/16 Esomeprazole Magnesium 40 mg PO DAILY 03/31/15 11/03/16 Fenofibrate 160 mg PO DAILY 03/31/15 11/03/16 Hydrochlorothiazide 25 mg PO DAILY 03/31/15 11/03/16 Loratadine [Allergy Relief] 10 mg PO DAILY 03/31/15 11/03/16 Losartan Potassium 50 mg PO DAILY 03/31/15 11/03/16 Metoprolol Tartrate [Lopressor] 50 mg PO BID 03/31/15 11/03/16 [place]-3 Fatty Acids/Fish Oil 1 gm PO DAILY 03/31/15 11/04/16 [[place] 3 1,000 mg Softgel] Simvastatin 80 mg PO QPM 03/31/15 11/03/16 Docusate Sodium [Dss] 250 mg PO DAILY 11/04/16 11/04/16 Ferrous Sulfate 325 mg PO DAILY 11/04/16 11/04/16 Azithromycin 500 mg PO DAILY #3 tablet 11/05/16 Omeprazole [PriLOSEC] 10 mg PO QDAC #30 capsule 11/05/16 Oseltamivir [Tamiflu] 30 mg PO BID #16 capsule 11/05/16 - Allergies Allergies/Adverse Reactions: Allergies Allergy/AdvReac Type Severity Reaction Status Date / Time furosemide Allergy Intermediate Rash Verified 05/14/18 20:25 lisinopril AdvReac Mild Cough Verified 05/14/18 20:25 Review of Systems - Constitutional Constitutional: reports: Fatigue, Weakness, Poor appetite, Weight loss. denies : Fever, Chills - Eyes Eyes: denies: Pain, Irritation, Amaurosis, Blurred vision, Dipolpia - Ears, Nose & Throat Ears, Nose & Throat: reports: Hearing loss. denies: Ear pain, Tinnitus, Vertigo , Nasal pain, Nosebleeds, Mouth lesions - Cardiovascular Cariovascular: denies: Palpitations, Chest pain, Edema, Syncope, Orthopnea - Respiratory Respiratory: denies: Cough, Sputum production, Wheezing, Hemoptysis, Orthopnea, SOB at rest, SOB with exertion - Gastrointestinal Gastrointestinal: reports: Abdominal pain, Diarrhea, Nausea, Vomiting. denies: Rectal bleeding, Black stools, Bloody stools, Bile emesis - Genitourinary Genitourinary: denies: Dysuria, Frequency, Urgency, Hematuria - Musculoskeletal Musculoskeletal: denies: Muscle pain, Back pain, Muscle aches, Stiffness - Integumentary Integumentary: denies: Rash, Pruritis, Lesions, Dryness - Neurological Neurological: reports: General weakness. denies: Focal weakness, Headache, Dizziness - Psychiatric Psychiatric: denies: Depression, Anxiety, Suicidal, Hallucinations - Endocrine Endocrine: denies: Polyuria, Polydypsia, Polyphagia - Hematologic/Lymphatic Hematologic/Lymphatic: denies: Anemia, Bruising, Petechiae, Lymphadenopathy - All Other Systems All Other Systems: reports: Reviewed and negative Exam - Vital Signs Reviewed Vital Signs: Yes Vital Signs: Vital Signs x48h Temp Pulse Resp BP Pulse Ox 05/14/18 22:20 96 15 152/85 H 100 05/14/18 20:19 36.6 C 89 18 152/86 H 95 - Physical Exam General Appearance: positive: No acute distress, Alert Eyes Bilateral: positive: Normal inspection, PERRL, EOMI, No lid inflammation, Conjunctivae nml, No scleral icterus ENT: positive: ENT inspection nml, Pharynx nml, Dry mucous membranes. negative : Oral lesions Neck: positive: Nml inspection, Thyroid nml, No JVD, Trachea midline. negative : Thyromegaly Respiratory: positive: Chest non-tender, No respiratory distress, Breath sounds nml. negative: Wheezes, Rales, Rhonchi Cardiovascular: positive: Regular rate & rhythm, No murmur, No gallop Peripheral Pulses: positive: 1+ Abdomen: positive: Non-tender, No organomegaly, Nml bowel sounds, No distention. negative: Guarding, Rebound Back: positive: Nml inspection. negative: CVA tenderness (R), CVA tenderness (L ) Skin: positive: Color nml, No rash, Warm, Dry. negative: Cyanosis Extremities: positive: Non-tender, Full ROM, Nml appearance, No pedal edema Neurologic/Psychiatric: positive: Oriented x3, CN's nml (2-12), Motor nml, Sensation nml, Mood/affect nml Conclusion/Plan - Problem List (1) Hypokalemia Conclusion/Plan: The patient was severely hypokalemic and we are correcting with IV fluids, IV riders, and oral supplements. I am unsure as to why the patient has become so hypokalemic; does not appear to be related to her current medications. I will ask pharmacy to review. (2) Abdominal pain Conclusion/Plan: The patient has had abdominal pain, nausea, vomiting, and diarrhea. This appears to be viral gastroenteritis. We will rehydrate her, correct her electrolyte abnormalities, and start her on a clear liquid diet, advancing as tolerated. (3) HTN (hypertension) Conclusion/Plan: The patient has a history of hypertension and takes metoprolol, losartan, and hydrochlorothiazide at home. We will restart these medications while she is inpatient. If she continues to be hypertensive we will consider adding as needed clonidine. (4) Coronary artery disease Conclusion/Plan: The patient has a history of coronary artery disease and underwent a CABG about 8 or 9 years ago. There is also remote history of a myocardial infarction according to the medical records. I will restart her on her baby aspirin and medications for her dyslipidemia and hypertension. We will obtain an echocardiogram because of the [place] history. (5) Hyperlipidemia Conclusion/Plan: The patient has a history of dyslipidemia and takes fenofibrate, omega-3 fatty acids, and simvastatin at home. We will continue these while she is inpatient. (6) COPD (chronic obstructive pulmonary disease) Conclusion/Plan: Patient has a history of COPD and takes albuterol at home. We will order DuoNeb nebulizer treatments as needed. (7) Gastroesophageal reflux disease Conclusion/Plan: The patient has a history of gastroesophageal reflux disease and takes Nexium at home. We will continue this while she is inpatient. (8) History of left breast cancer Conclusion/Plan: The patient has a history of breast cancer and is status post left mastectomy. There is no evidence of recurrence at this time. (9) Morbid obesity Conclusion/Plan: The patient is morbidly obese. We will obtain a nutritional consult. - Lab Results Lab results reviewed: Yes Fish Bones: 05/14/18 20:49 05/14/18 20:49 - Diagnostic Imaging Results Diagnostic Imaging Results: positive: Final report reviewed Diagnostic Imaging Results Comments: EXAM: CT ABDOMEN AND PELVIS EXAM DATE: 05/14/2018 10:59 PM. CLINICAL HISTORY: Diffuse abdomen pain. Nausea and vomiting for 2 days. COMPARISONS: None. TECHNIQUE: Routine helical CT imaging was performed through the abdomen and pelvis. IV contrast: 100 cc of Isovue-300. Enteric contrast: No. Reconstructions: Coronal and sagittal. In accordance with CT protocol optimization, one or more of the following dose reduction techniques were utilized for this exam: automated exposure control, adjustment of mA and/or KV based on patient size, or use of iterative reconstructive technique. FINDINGS: Lung Bases: Coronary artery calcification noted. Liver: Normal. No masses. Gallbladder/Bile Ducts: Cholecystectomy. No dilated ducts. Spleen: Normal. Pancreas: Normal. Adrenal Glands: Normal. Kidneys: Small right upper pole cyst, otherwise unremarkable. Peritoneal Cavity/Bowel: Mild diverticulosis. No free fluid, free air or adenopathy. No masses or acute inflammatory process. The appendix is well visualized and normal. Pelvic Organs: 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. Unremarkable bladder. Vasculature: No aortic enlargement. Moderate atherosclerotic calcification Bones: No significant abnormality. Other: None. IMPRESSION: 1. Mild diverticulosis without diverticulitis or other acute bowel abnormality. 2. Cholecystectomy and hysterectomy noted. Core Measures - Anticipated LOS I expect patient to be DC'd or transferred within 96 hours.: Yes - DVT/VTE - Prophylaxis VTE/DVT Device ordered at admit?: Yes
[2018-05-15] MEDS ORDERED: D5.45NS W/20 MEQ KCL 1,000 ML IV SCH (01:00)
[2018-05-15] MEDS: SODIUM CHLORIDE FLUSH 0.9% 10 ML SYRINGE IVP SCH ×4 (01:05→23:22)
[2018-05-15] MEDS ORDERED: IPRATROPIUM/ALBUTEROL 3 ML NEB INH PRN (01:11)
[2018-05-15 05:50] LABS: PT - PROTHROMBIN TIME 50.5 secs (9.9-12.6)
[2018-05-15 05:51] LABS: HGB - HEMOGLOBIN 11.4 g/dL (12.0-16.0); MEAN CORPUSCULAR HEMOGLOBIN 28.9 pg (27.0-31.0); MEAN CORPUSCULAR HGB CONC 32.4 g/dL (32.0-36.0); MEAN PLATELET VOLUME 8.7 fL (7.9-10.8); RED BLOOD COUNT 3.94 10^6/uL (4.20-5.40); RED CELL DISTRIBUTION WIDTH 20.3 % (12.0-15.0); WHITE BLOOD COUNT 8.6 x10^3/uL (4.8-10.8)
[2018-05-15 05:54] LABS: INR 4.7 (0.8-1.2)
[2018-05-15 05:55] LABS: CALCIUM 8.1 mg/dL (8.5-10.3); CREATININE 0.5 mg/dL (0.4-1.0)
[2018-05-15] MEDS: PANTOPRAZOLE 40 MG TABLET PO SCH (06:15)
[2018-05-15] MEDS: HYDROcod/ACETAM 5/325 MG TABLET PO PRN (06:15)
[2018-05-15] MEDS ORDERED: MIN OIL/DIMETHICON/COCONUT OIL 92 GM TUBE TOP PRN (07:10)
[2018-05-15] MEDS ORDERED: POTASSIUM CHLORIDE 20 MEQ TABLET PO SCH (07:20)
[2018-05-15] MEDS ORDERED: POTASSIUM CHLORIDE INJ 40 MEQ in SODIUM CHLORIDE 0.9% 480 ML IV ONE (08:00)
[2018-05-15] MEDS: ASPIRIN EC 81 MG TABLET PO SCH (08:38)
[2018-05-15] MEDS: hydroCHLOROthiazide 25 MG TABLET PO SCH (08:38)
[2018-05-15] MEDS: LOSARTAN 50 MG TABLET PO SCH (08:38)
[2018-05-15] MEDS: METOPROLOL TARTRATE 50 MG TABLET PO SCH ×2 (08:38→20:35)
[2018-05-15] MEDS: POLYETHYLENE GLYCOL 3350 17 GM PACKET PO SCH (08:45)
[2018-05-15] MEDS: NYSTATIN POWDER 15 GM TOP SCH ×2 (08:46→20:39)
[2018-05-15] MEDS: CALCIUM CARBONATE CHEW 500 MG TABLET PO SCH ×2 (09:08→20:35)
[2018-05-15] MEDS ORDERED: NITROGLYCERIN SL 0.4 MG TABLET SL PRN (10:47)
[2018-05-15] MEDS ORDERED: ALBUTEROL NEB 2.5 MG/3 ML INH PRN ×2 (10:47→22:59)
[2018-05-15] MEDS ORDERED: NYSTATIN CREAM 15 GM TUBE TOP SCH (12:00)
[2018-05-15] MEDS ORDERED: PROMETHAZINE INJ 25 MG in SODIUM CHLORIDE 0.9% 50 ML IV PRN (13:08)
--- NOTE | 2018-05-15 13:12 | PROVIDER PROGRESS NOTE ---
Subjective - Prog Note Date Prog Note Date: 05/15/18 - Subjective Subjective: pt denies chest pain. pt report she burning sensation from upper epigastric to lower quadrant of abdomen. Pt denies fever, chill, cough, shortness of breath. pt report she still has some nausea and vomiting. Current Medications - Current Medications Current Medications: Active Medications Hydrocodone Bitart/Acetaminophen ([place] 5/325) 1 tab PO Q4HR PRN PRN Reason: Pain 5 to 7 Last Admin: 05/15/18 06:15 Dose: 1 tab Albuterol () 2.5 mg INH RTQ4H PRN PRN Reason: Wheezing Albuterol/Ipratropium (Duoneb) 3 ml INH Q4HR PRN PRN Reason: Wheezing Aspirin (Ecotrin) 81 mg PO DAILY [facility] Last Admin: 05/15/18 08:38 Dose: 81 mg Atorvastatin Calcium (Lipitor) 80 mg PO QPM [facility] Calcium Carbonate/Glycine (Tums) 500 mg PO BID [facility] Last Admin: 05/15/18 09:08 Dose: 500 mg Hydrochlorothiazide (Hydrodiuril) 25 mg PO DAILY [facility] Last Admin: 05/15/18 08:38 Dose: 25 mg Sodium Chloride (Normal Saline 0.9%) 1,000 mls @ 100 mls/hr IV .Q10H [facility] Promethazine HCl 25 mg/ Sodium (Chloride) 51 mls @ 100 mls/hr IV Q6H PRN PRN Reason: Nausea / Vomiting Loratadine (Claritin) 10 mg PO DAILY [facility] Losartan Potassium (Cozaar) 50 mg PO DAILY [facility] Last Admin: 05/15/18 08:38 Dose: 50 mg Metoprolol Tartrate (Lopressor) 50 mg PO BID [facility] Last Admin: 05/15/18 08:38 Dose: 50 mg Mineral Oil (Cavilon) 1 applic TOP PRN PRN PRN Reason: Skin Care Last Admin: 05/15/18 07:26 Dose: 1 applic Nitroglycerin (Nitrostat) 0.4 mg SL Q5MIN PRN PRN Reason: Chest Pain Nystatin (Nystop) 0 applic TOP BID [facility] Last Admin: 05/15/18 08:46 Dose: 1 applic Nystatin (Mycostatin Cream) 1 applic TOP BID [facility] [id number]-6-[id number] Ethyl Esters (Lovaza) 1 gm PO DAILY [facility] Pantoprazole Sodium (Protonix) 40 mg PO QDAC [facility] Last Admin: 05/15/18 06:15 Dose: 40 mg Polyethylene Glycol (Miralax) 17 gm PO DAILY [facility] Last Admin: 05/15/18 08:45 Dose: 17 gm Sodium Chloride (Normal Saline Flush 0.9%) 10 ml IVP PRN PRN PRN Reason: NEEDED PER PROVIDER ORDERS Sodium Chloride (Normal Saline Flush 0.9%) 10 ml IVP 0100,0900,1700 [facility] Last Admin: 05/15/18 08:47 Dose: Not Given Temazepam (Restoril) 15 mg PO QPM PRN PRN Reason: Insomnia Albuterol Sulfate [Proair Hfa Inhaler] 2 puffs INH Q6H PRN 03/31/15 Loratadine [Allergy Relief] 10 mg PO DAILY 03/31/15 Metoprolol Tartrate [Lopressor] 50 mg PO BID 03/31/15 [place]-3 Fatty Acids/Fish Oil [[place] 3 1,000 mg Softgel] 1 gm PO DAILY 03/31/15 Atorvastatin Calcium 80 mg PO QPM 05/15/18 Hydrocodone/Acetaminophen [Hydrocodone-Acetamin 5-325 mg] 1 tab PO BID PRN 05/15 Nitroglycerin [Nitroglycerin] 0.4 mg SL Q5MIN PRN MDD 3 DOSES 05/15/18 Ondansetron Odt [Zofran Odt] 4 mg PO Q6HR PRN 05/15/18 Pantoprazole Sodium 40 mg PO DAILY 05/15/18 Warfarin Sodium [Warfarin Sodium] 5 mg PO DAILY 05/15/18 Objective - Vital Signs/Intake & Output Reviewed Vital Signs: Yes Vital Signs: Vital Signs x48h Temp Pulse Resp BP BP Pulse Ox 05/15/18 12:39 36.6 C 77 16 108/51 L 95 05/15/18 08:38 127/76 05/15/18 07:26 36.6 C 94 18 127/76 95 Intake & Output: Intake & Output 05/12/18 05/13/18 05/14/18 05/15/18 23:59 23:59 23:59 23:59 Intake Total 2500 Balance 2500 - Objective General Appearance: positive: No acute distress, Alert. negative: Lethargic Eyes Bilateral: positive: Normal inspection, PERRL, No lid inflammation, Conjunctivae nml ENT: positive: ENT inspection nml, Pharynx nml, No signs of dehydration. negative: Purulent nasal drainage, Pharyngeal erythema, Oral lesions Neck: positive: Nml inspection, Thyroid nml, No JVD, Trachea midline. negative : Thyromegaly, Lymphadenopathy (R), Lymphadenopathy (L), Stiff neck, Swelling/ bruising, Tracheal deviation Respiratory: positive: Chest non-tender, No respiratory distress, Breath sounds nml. negative: Wheezes, Rales, Rhonchi Cardiovascular: positive: Regular rate & rhythm, No murmur, No gallop. negative : Irregularly irregular, Extrasystoles, Tachycardia, Bradycardia, JVD present, Systolic murmur, Diastolic murmur Peripheral Pulses: 2+ Radial (R), 2+ Radial (L), 2+ Dorsalis pedis (R), 2+ Dorsalis pedis (L) Abdomen: positive: Non-tender, No organomegaly, Nml bowel sounds, No distention. negative: Tenderness, Guarding, Rebound Back: positive: Nml inspection. negative: CVA tenderness (R), CVA tenderness (L ) Skin: positive: Color nml, No rash, Warm, Dry. negative: Cyanosis, Diaphoresis , Pallor Extremities: positive: Non-tender, Full ROM, Nml appearance. negative: Calf tenderness, Joint swelling, Chelsy's sign/cords Neurologic/Psychiatric: positive: Motor nml, Sensation nml. negative: Weakness , Sensory loss, Facial droop, Slurred/abnml speech, Depressed mood/affect - Lab Results Fish Bones: 05/15/18 05:35 05/15/18 12:45 Other Labs: Lab Results x24hrs 05/15/18 05/15/18 05/15/18 Range/Units 12:45 07:55 07:55 WBC (4.8-10.8) x10^3/uL RBC (4.20-5.40) 10^6/uL Hgb (12.0-16.0) g/dL Hct (37.0-47.0) % MCV (81.0-99.0) fL MCH (27.0-31.0) pg MCHC (32.0-36.0) g/dL RDW (12.0-15.0) % Plt Count (130-450) 10^3/uL MPV (7.9-10.8) fL PT (9.9-12.6) secs INR (0.8-1.2) D-Dimer < 200.0 L (200.0-255.0) ng/mL Sodium (135-145) mmol/L Potassium 4.0 (3.5-5.0) mmol/L Chloride (101-111) mmol/L Carbon Dioxide (21-32) mmol/L Anion Gap (6-13) BUN (6-20) mg/dL Creatinine (0.4-1.0) mg/dL Estimated GFR (MDRD) (>89) Glucose (70-100) mg/dL Calcium (8.5-10.3) mg/dL Troponin I < 0.04 (<0.49) ng/mL 05/15/18 05/15/18 05/15/18 Range/Units 05:35 05:35 05:35 WBC 8.6 (4.8-10.8) x10^3/uL RBC 3.94 L (4.20-5.40) 10^6/uL Hgb 11.4 L (12.0-16.0) g/dL Hct 35.1 L (37.0-47.0) % MCV 89.0 (81.0-99.0) fL MCH 28.9 (27.0-31.0) pg MCHC 32.4 (32.0-36.0) g/dL RDW 20.3 H (12.0-15.0) % Plt Count 277 (130-450) 10^3/uL MPV 8.7 (7.9-10.8) fL PT 50.5 H (9.9-12.6) secs INR 4.7 H* (0.8-1.2) D-Dimer (200.0-255.0) ng/mL Sodium 138 (135-145) mmol/L Potassium 2.8 L (3.5-5.0) mmol/L Chloride 101 (101-111) mmol/L Carbon Dioxide 25 (21-32) mmol/L Anion Gap 12.0 (6-13) BUN 5 L (6-20) mg/dL Creatinine 0.5 (0.4-1.0) mg/dL Estimated GFR (MDRD) 119 (>89) Glucose 108 H (70-100) mg/dL Calcium 8.1 L (8.5-10.3) mg/dL Troponin I (<0.49) ng/mL 05/15/18 Range/Units 05:32 WBC (4.8-10.8) x10^3/uL RBC (4.20-5.40) 10^6/uL Hgb (12.0-16.0) g/dL Hct (37.0-47.0) % MCV (81.0-99.0) fL MCH (27.0-31.0) pg MCHC (32.0-36.0) g/dL RDW (12.0-15.0) % Plt Count (130-450) 10^3/uL MPV (7.9-10.8) fL PT (9.9-12.6) secs INR (0.8-1.2) D-Dimer (200.0-255.0) ng/mL Sodium (135-145) mmol/L Potassium (3.5-5.0) mmol/L Chloride (101-111) mmol/L Carbon Dioxide (21-32) mmol/L Anion Gap (6-13) BUN (6-20) mg/dL Creatinine (0.4-1.0) mg/dL Estimated GFR (MDRD) (>89) Glucose (70-100) mg/dL Calcium (8.5-10.3) mg/dL Troponin I < 0.04 (<0.49) ng/mL ABX Reporting Has patient been on IV antibiotics over the past 48 hours?: No Assessment/Plan - Problem List (1) Hypokalemia Impression: Conclusion/Plan: resolved The patient was severely hypokalemic and we are correcting with IV fluids, IV riders, and oral supplements. I am unsure as to why the patient has become so hypokalemic; does not appear to be related to her current medications. I will ask pharmacy to review. (2) Abdominal pain Conclusion/Plan: 05/15, better, CT of abdomen is unremarkable. pt report burning sensation of upper and lower GI pain, add Tums PRN The patient has had abdominal pain, nausea, vomiting, and diarrhea. This appears to be viral gastroenteritis. We will rehydrate her, correct her electrolyte abnormalities, and start her on a clear liquid diet, advancing as tolerated. (3) HTN (hypertension) Conclusion/Plan: stable The patient has a history of hypertension and takes metoprolol, losartan, and hydrochlorothiazide at home. We will restart these medications while she is inpatient. If she continues to be hypertensive we will consider adding as needed clonidine. (4) Coronary artery disease Conclusion/Plan: stable, monitor with tele/vital The patient has a history of coronary artery disease and underwent a CABG about 8 or 9 years ago. There is also remote history of a myocardial infarction according to the medical records. I will restart her on her baby aspirin and medications for her dyslipidemia and hypertension. We will obtain an echocardiogram because of the [facility]. (5) Hyperlipidemia Conclusion/Plan: The patient has a history of dyslipidemia and takes fenofibrate, omega-3 fatty acids, and simvastatin at home. We will continue these while she is inpatient. (6) COPD (chronic obstructive pulmonary disease) Conclusion/Plan: Patient has a history of COPD and takes albuterol at home. We will order DuoNeb nebulizer treatments as needed. (7) Gastroesophageal reflux disease Conclusion/Plan: The patient has a history of gastroesophageal reflux disease and takes Nexium at home. We will continue this while she is inpatient. (8) History of left breast cancer continue support (9) nausea and vomiting it seems from pt's viral gastritis IVF, hydration antiemesis PRN daily lab and vital monitor
[2018-05-15] MEDS: SODIUM CHLORIDE 0.9% 1,000 ML IV SCH (14:10)
[2018-05-15] MEDS: MICONAZOLE CREAM (EXTRA-THICK) 92 GM TUBE TOP PRN (14:47)
[2018-05-15] MEDS: ATORVASTATIN 40 MG TABLET PO SCH (20:35)
[2018-05-15] MEDS: MICONAZOLE CREAM (EXTRA-THICK) 92 GM TUBE TOP SCH (20:35)
[2018-05-16] MEDS: SODIUM CHLORIDE 0.9% 1,000 ML IV SCH (00:02)
[2018-05-16] MEDS: HYDROcod/ACETAM 5/325 MG TABLET PO PRN ×2 (00:06→13:32)
[2018-05-16] MEDS: MICONAZOLE CREAM (EXTRA-THICK) 92 GM TUBE TOP PRN ×3 (00:24→21:52)
[2018-05-16] MEDS: PANTOPRAZOLE 40 MG TABLET PO SCH (06:16)
[2018-05-16 06:19] LABS: MEAN CORPUSCULAR HEMOGLOBIN 29.3 pg (27.0-31.0); MEAN CORPUSCULAR HGB CONC 33.1 g/dL (32.0-36.0); MEAN CORPUSCULAR VOLUME 88.4 fL (81.0-99.0); MEAN PLATELET VOLUME 7.9 fL (7.9-10.8); RED BLOOD COUNT 3.43 10^6/uL (4.20-5.40); RED CELL DISTRIBUTION WIDTH 20.3 % (12.0-15.0); WHITE BLOOD COUNT 5.4 x10^3/uL (4.8-10.8)
[2018-05-16 06:25] LABS: PT - PROTHROMBIN TIME 66.6 secs (9.9-12.6)
[2018-05-16 06:34] LABS: BUN - BLOOD UREA NITROGEN < 5 mg/dL (6-20); CALCIUM 7.8 mg/dL (8.5-10.3); CARBON DIOXIDE - CO2 28 mmol/L (21-32); CHLORIDE 106 mmol/L (101-111); CREATININE 0.5 mg/dL (0.4-1.0); GFR - MDRD 119 (>89); GLUCOSE 81 mg/dL (70-100); SODIUM 139 mmol/L (135-145)
[2018-05-16 06:41] LABS: INR 6.3 (0.8-1.2)
[2018-05-16] MEDS ORDERED: POTASSIUM CHLORIDE 20 MEQ TABLET PO ONE (07:31)
[2018-05-16] MEDS ORDERED: POTASSIUM CHLOR 10 MEQ/100 ML 10 MEQ/100 ML BAG IV ONE (07:32)
[2018-05-16] MEDS ORDERED: CALCIUM GLUCONATE 1,000 MG in SODIUM CHLORIDE 0.9% 50 ML IV ONE (07:34)
[2018-05-16 07:54] LABS: MEAN RETIC VALUE 127.8; RED BLOOD COUNT 3.42 10^6/uL (4.20-5.40)
[2018-05-16] MEDS: CALCIUM CITRATE 250 MG TABLET PO SCH ×2 (08:15→09:53)
[2018-05-16 08:20] LABS: FERRITIN 200.3 ng/mL (11.0-306.8)
[2018-05-16 08:23] LABS: % IRON SATURATION 40 % (20-50); IRON 52 ug/dL (28-170); TOTAL IRON BINDING CAPACITY 130 ug/dL (250-450); TRANSFERRIN 93 mg/dL (192-382)
[2018-05-16] MEDS ORDERED: PROCHLORPERAZINE 10 MG/2 ML VIAL IVP PRN (08:49)
[2018-05-16] MEDS: SODIUM CHLORIDE FLUSH 0.9% 10 ML SYRINGE IVP SCH ×2 (08:51→18:30)
[2018-05-16] MEDS: ONDANSETRON 4 MG/2 ML VIAL IVP PRN (08:51)
[2018-05-16] MEDS: POLYETHYLENE GLYCOL 3350 17 GM PACKET PO SCH (08:55)
[2018-05-16] MEDS: OMEGA-3 ACID ETHYL ESTERS 1 GM CAPSULE PO SCH (09:29)
[2018-05-16] MEDS: METOPROLOL TARTRATE 50 MG TABLET PO SCH ×2 (09:29→21:49)
[2018-05-16] MEDS: LOSARTAN 50 MG TABLET PO SCH (09:29)
[2018-05-16] MEDS: LORATADINE 10 MG TABLET PO SCH (09:30)
[2018-05-16] MEDS: hydroCHLOROthiazide 25 MG TABLET PO SCH (09:30)
[2018-05-16] MEDS: ASPIRIN EC 81 MG TABLET PO SCH (09:31)
[2018-05-16] MEDS: CALCIUM CARBONATE CHEW 500 MG TABLET PO SCH ×2 (09:34→21:52)
[2018-05-16] MEDS: PANTOPRAZOLE 40 MG VIAL IVP SCH ×2 (09:35→21:52)
--- NOTE | 2018-05-16 09:37 | XRAY Report ---
Procedure Date: 05/16/2018 Accession Number: [id number] / [id number] Procedure: XR - Chest 1 View X-Ray CPT Code: 54954 FULL RESULT: EXAM: CHEST RADIOGRAPHY EXAM DATE: 05/16/2018 09:12 AM. CLINICAL HISTORY: SOB. COMPARISON: 01/18/2018 TECHNIQUE: 1 view. FINDINGS: Lungs/Pleura: No focal opacities evident. No pleural effusion. No pneumothorax. Mediastinum: Status post sternotomy and coronary artery bypass. Grossly normal heart size. Other: Surgical clips left axilla. IMPRESSION: Clear lungs. No acute findings. [facility]
[2018-05-16] MEDS: NYSTATIN POWDER 15 GM TOP SCH ×2 (09:54→21:52)
[2018-05-16] MEDS: MICONAZOLE CREAM (EXTRA-THICK) 92 GM TUBE TOP SCH ×2 (09:54→21:53)
[2018-05-16 11:06] LABS: BILIRUBIN,URINE NEGATIVE (NEGATIVE); GLUCOSE, URINE (UA) NEGATIVE (NEGATIVE); KETONES,URINE (UA) NEGATIVE (NEGATIVE); LEUKOCYTE ESTERASE, URINE NEGATIVE (NEGATIVE); NITRITE,URINE NEGATIVE (NEGATIVE); OCCULT BLOOD,URINE NEGATIVE (NEGATIVE); PROTEIN,URINE NEGATIVE (NEGATIVE); UROBILINOGEN,URINE 0.2 (NORMAL) E.U./dL (NORMAL)
[2018-05-16 11:10] LABS: CLARITY,URINE CLEAR (CLEAR)
[2018-05-16] MEDS: NS W/20 MEQ KCL 1,000 ML IV SCH (11:33)
[2018-05-16 11:38] LABS: BACTERIA,URINE Rare /HPF (None Seen); RBC,URINE None Seen /HPF (0-5); SQUAMOUS EPITHELIAL CELL,UR FEW Squamous (<= Few)
--- NOTE | 2018-05-16 12:31 | CT Report ---
Procedure Date: 05/16/2018 Accession Number: [id number] / [id number] Procedure: CT - Head W/O CPT Code: FULL RESULT: EXAM: CT HEAD EXAM DATE: 05/16/2018 10:36 AM. CLINICAL HISTORY: Headache. COMPARISON: 01/18/2018. TECHNIQUE: Multiaxial CT images were obtained from the foramen magnum to the vertex. Reformats: Sagittal and coronal. IV contrast: None. In accordance with CT protocol optimization, one or more of the following dose reduction techniques were utilized for this exam: automated exposure control, adjustment of mA and/or KV based on patient size, or use of iterative reconstructive technique. FINDINGS: Parenchyma: No intraparenchymal hemorrhage. No evidence of mass, midline shift, or CT findings of acute infarction. 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 Nino-white differentiation is distinct. Extraaxial Spaces: Normal for age. No subdural or epidural collections identified. Ventricles: Normal in size and position. Sinuses and Orbits: Imaged paranasal sinuses, orbits, and mastoids show no significant abnormality. Bones: No evidence of fracture or calvarial defect. 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 Other: No acute findings since 01/18/2018. IMPRESSION: Negative for an acute intracranial process or significant change compared with 01/18/2018. Chronic changes are present. [facility]IA
[2018-05-16] MEDS: SACCHAROMYCES BOULARDII 250 MG CAPSULE PO SCH ×2 (13:32→18:42)
--- NOTE | 2018-05-16 13:45 | PROVIDER PROGRESS NOTE ---
Subjective - Prog Note Date Prog Note Date: 05/16/18 - Subjective Pt reports feeling: No change Subjective: pt still complain of nausea and vomiting. he abdominal pain is controlled. she report she did not have much appetite as well. She denies cough, fever, chill, chest pain, shortness of breath. Current Medications - Current Medications Current Medications: Active Medications Hydrocodone Bitart/Acetaminophen ([place] 5/325) 1 tab PO Q4HR PRN PRN Reason: Pain 5 to 7 Last Admin: 05/16/18 13:32 Dose: 1 tab Albuterol () 2.5 mg INH Q6HR PRN PRN Reason: Wheezing Last Admin: 05/16/18 08:29 Dose: 2.5 mg Aspirin (Ecotrin) 81 mg PO DAILY REPLACED BY [facility] Last Admin: 05/16/18 09:31 Dose: 81 mg Atorvastatin Calcium (Lipitor) 80 mg PO QPM [facility]PL[facility] BY [facility] Last Admin: 05/15/18 20:35 Dose: 80 mg Calcium Carbonate/Glycine (Tums) 500 mg PO BID [facility] Last Admin: 05/16/18 09:34 Dose: 500 mg Calcium Citrate () 250 mg PO DAILY [facility] Last Admin: 05/16/18 09:53 Dose: 250 mg Carboxymethylcellulose (Refresh 1% Ophth Drops) 1 drops EACHEYE Q4HR PRN PRN Reason: Dry Eye Hydrochlorothiazide (Hydrodiuril) 25 mg PO DAILY [facility] Last Admin: 05/16/18 09:30 Dose: 25 mg Promethazine HCl 25 mg/ Sodium (Chloride) 51 mls @ 100 mls/hr IV Q6H PRN PRN Reason: Nausea / Vomiting Potassium Chloride/Sodium Chloride (Normal Saline 0.9% W/20 Meq Kcl) 1,000 mls @ 85 mls/hr IV .[id number] REPLACED BY [facility] Last Infusion: 05/16/18 13:42 Dose: 0 mls/hr Loratadine (Claritin) 10 mg PO DAILY [facility] Last Admin: 05/16/18 09:30 Dose: 10 mg Losartan Potassium (Cozaar) 50 mg PO DAILY [facility] Last Admin: 05/16/18 09:29 Dose: 50 mg Metoprolol Tartrate (Lopressor) 50 mg PO BID [facility] Last Admin: 05/16/18 09:29 Dose: 50 mg Miconazole (Secura Extra-Thick) 1 applic TOP BID [facility]PL[facility] BY [facility] Last Admin: 05/16/18 09:54 Dose: 1 applic Miconazole (Secura Extra-Thick) 1 applic TOP PRN PRN PRN Reason: AFFECTED SKIN Last Admin: 05/16/18 09:54 Dose: 1 applic Mineral Oil (Cavilon) 1 applic TOP PRN PRN PRN Reason: Skin Care Last Admin: 05/15/18 07:26 Dose: 1 applic Multivitamins/Minerals (Theragran M) 1 tab PO DAILYWM REPLACED BY [facility] Nitroglycerin (Nitrostat) 0.4 mg SL Q5MIN PRN PRN Reason: Chest Pain Nystatin (Nystop) 0 applic TOP BID [facility]PL[facility] BY [facility] Last Admin: 05/16/18 09:54 Dose: Not Given Detzw-8-Jjyn Ethyl Esters (Lovaza) 1 gm PO DAILY [facility]PL[facility] BY [facility] Last Admin: 05/16/18 09:29 Dose: 1 gm Ondansetron HCl (Zofran Inj) 4 mg IVP Q4HR PRN PRN Reason: Nausea / Vomiting Last Admin: 05/16/18 08:51 Dose: 4 mg Pantoprazole Sodium (Protonix) 40 mg IVP BID [facility]PL[facility] BY [facility] Last Admin: 05/16/18 09:35 Dose: 40 mg Polyethylene Glycol (Miralax) 17 gm PO DAILY [facility]PL[facility] BY [facility] Last Admin: 05/16/18 08:55 Dose: Not Given Prochlorperazine Edisylate (Compazine Inj) 10 mg IVP Q4HR PRN PRN Reason: Nausea / Vomiting Saccharomyces Boulardii (Florastor) 250 mg PO BIDWM REPLACED BY [facility] Last Admin: 05/16/18 13:32 Dose: 250 mg Sodium Chloride (Normal Saline Flush 0.9%) 10 ml IVP PRN PRN PRN Reason: NEEDED PER PROVIDER ORDERS Sodium Chloride (Normal Saline Flush 0.9%) 10 ml IVP 0100,0900,1700 REPLACED BY [facility] Last Admin: 05/16/18 08:51 Dose: 10 ml Temazepam (Restoril) 15 mg PO QPM PRN PRN Reason: Insomnia Albuterol Sulfate [Proair Hfa Inhaler] 2 puffs INH Q6H PRN 03/31/15 Loratadine [Allergy Relief] 10 mg PO DAILY 03/31/15 Metoprolol Tartrate [Lopressor] 50 mg PO BID 07/06/15 [place]-3 Fatty Acids/Fish Oil [[place] 3 1,000 mg Softgel] 1 gm PO DAILY 03/31/15 Atorvastatin Calcium 80 mg PO QPM 05/15/18 Hydrocodone/Acetaminophen [Hydrocodone-Acetamin 5-325 mg] 1 tab PO BID PRN 05/15 Nitroglycerin [Nitroglycerin] 0.4 mg SL Q5MIN PRN MDD 3 DOSES 05/15/18 Ondansetron Odt [Zofran Odt] 4 mg PO Q6HR PRN 05/15/18 Pantoprazole Sodium 40 mg PO DAILY 05/15/18 Warfarin Sodium [Warfarin Sodium] 1.5 mg PO DAILY 05/15/18 Objective - Vital Signs/Intake & Output Reviewed Vital Signs: Yes Intake & Output: Intake & Output 05/13/18 05/14/18 05/15/18 05/16/18 23:59 23:59 23:59 23:59 Intake Total 392.75 Output Total 0 Balance 392.75 - Objective General Appearance: positive: No acute distress, Alert. negative: Lethargic Eyes Bilateral: positive: Normal inspection, PERRL, No lid inflammation, Conjunctivae nml ENT: positive: ENT inspection nml, Pharynx nml, No signs of dehydration. negative: Purulent nasal drainage, Pharyngeal erythema, Oral lesions Neck: positive: Nml inspection, Thyroid nml, No JVD, Trachea midline. negative : Thyromegaly, Lymphadenopathy (R), Lymphadenopathy (L), Stiff neck, Swelling/ bruising, Tracheal deviation Respiratory: positive: Chest non-tender, No respiratory distress, Breath sounds nml. negative: Wheezes, Rales, Rhonchi Cardiovascular: positive: Regular rate & rhythm, No murmur, No gallop. negative : Irregularly irregular, Extrasystoles, Tachycardia, Bradycardia, JVD present, Systolic murmur, Diastolic murmur Peripheral Pulses: 2+ Radial (R), 2+ Radial (L), 2+ Dorsalis pedis (R), 2+ Dorsalis pedis (L) Abdomen: positive: Non-tender, No organomegaly, Nml bowel sounds, No distention. negative: Tenderness, Guarding, Rebound Back: positive: Nml inspection. negative: CVA tenderness (R), CVA tenderness (L ) Skin: positive: Color nml, Warm, Dry, Skin rash, Decubitus. negative: Cyanosis , Diaphoresis, Pallor Extremities: positive: Non-tender, Full ROM, Nml appearance. negative: Calf tenderness, Joint swelling, Chelsy's sign/cords Neurologic/Psychiatric: positive: Oriented x3, Sensation nml, Mood/affect nml. negative: Weakness, Sensory loss, Facial droop, Slurred/abnml speech, Depressed mood/affect - Lab Results Fish Bones: 05/16/18 06:11 05/16/18 06:11 Other Labs: Lab Results x24hrs 05/16/18 05/16/18 Range/Units 11:31 10:50 Lactic Acid 2.9 H (0.5-2.2) mmol/L Urine Color YELLOW Urine Clarity CLEAR (CLEAR) Urine pH 6.0 (5.0-7.5) PH Ur Specific [place] 1.010 (1.002-1.030) Urine Protein NEGATIVE (NEGATIVE) mg/dL Urine Glucose (UA) NEGATIVE (NEGATIVE) mg/dL Urine Ketones NEGATIVE (NEGATIVE) mg/dL Urine Occult Blood NEGATIVE (NEGATIVE) Urine Nitrite NEGATIVE (NEGATIVE) Urine Bilirubin NEGATIVE (NEGATIVE) Urine Urobilinogen 0.2 (NORMAL) (NORMAL) E.U./dL Ur Leukocyte Esterase NEGATIVE (NEGATIVE) Urine RBC None Seen (0-5) /HPF Urine WBC 0-3 (0-5) /HPF Ur Squamous Epith Cells FEW Squamous (<= Few) Urine Bacteria Rare (None Seen) /HPF Urine Culture Comments NOT INDICATED ABX Reporting Has patient been on IV antibiotics over the past 48 hours?: No Assessment/Plan - Problem List (1) Hypokalemia Impression: Conclusion/Plan: 05/16 pt continue to have N/V, potassium today is 3. replacement of potassium recheck potassium control N/V resolved The patient was severely hypokalemic and we are correcting with IV fluids, IV riders, and oral supplements. I am unsure as to why the patient has become so hypokalemic; does not appear to be related to her current medications. I will ask pharmacy to review. (2) Abdominal pain Conclusion/Plan: controlled. 05/15, better, CT of abdomen is unremarkable. pt report burning sensation of upper and lower GI pain, add Tums PRN The patient has had abdominal pain, nausea, vomiting, and diarrhea. This appears to be viral gastroenteritis. We will rehydrate her, correct her electrolyte abnormalities, and start her on a clear liquid diet, advancing as tolerated. (3) HTN (hypertension) Conclusion/Plan: stable The patient has a history of hypertension and takes metoprolol, losartan, and hydrochlorothiazide at home. We will restart these medications while she is inpatient. If she continues to be hypertensive we will consider adding as needed clonidine. (4) Coronary artery disease Conclusion/Plan: stable, monitor with tele/vital The patient has a history of coronary artery disease and underwent a CABG about 8 or 9 years ago. There is also remote history of a myocardial infarction according to the medical records. I will restart her on her baby aspirin and medications for her dyslipidemia and hypertension. We will obtain an echocardiogram because of the [facility] history. (5) Hyperlipidemia Conclusion/Plan: The patient has a history of dyslipidemia and takes fenofibrate, omega-3 fatty acids, and simvastatin at home. We will continue these while she is inpatient. (6) COPD (chronic obstructive pulmonary disease) Conclusion/Plan: Patient has a history of COPD and takes albuterol at home. We will order DuoNeb nebulizer treatments as needed. (7) Gastroesophageal reflux disease Conclusion/Plan: 05/16 IV of Protonix Bid The patient has a history of gastroesophageal reflux disease and takes Nexium at home. We will continue this while she is inpatient. (8) History of left breast cancer continue support (9) nausea and vomiting 05/16 pt report she still has some N/V add Protonix IV Bid add Compazine and Phanergan PRN continue IVF of NS it seems from pt's viral gastritis IVF, hydration antiemesis PRN daily lab and vital monitor
[2018-05-16] MEDS: ATORVASTATIN 40 MG TABLET PO SCH (21:49)
[2018-05-17] MEDS: SODIUM CHLORIDE FLUSH 0.9% 10 ML SYRINGE IVP SCH ×4 (00:19→19:40)
[2018-05-17] MEDS: NS W/20 MEQ KCL 1,000 ML IV SCH (00:19)
[2018-05-17 04:55] LABS: HGB - HEMOGLOBIN 10.3 g/dL (12.0-16.0); MEAN CORPUSCULAR HEMOGLOBIN 29.4 pg (27.0-31.0); MEAN CORPUSCULAR VOLUME 88.9 fL (81.0-99.0); MEAN PLATELET VOLUME 8.7 fL (7.9-10.8); RED BLOOD COUNT 3.52 10^6/uL (4.20-5.40); WHITE BLOOD COUNT 5.7 x10^3/uL (4.8-10.8)
[2018-05-17 05:00] LABS: PT - PROTHROMBIN TIME 64.7 secs (9.9-12.6)
[2018-05-17 05:01] LABS: BUN - BLOOD UREA NITROGEN < 5 mg/dL (6-20); CALCIUM 8.1 mg/dL (8.5-10.3); CARBON DIOXIDE - CO2 28 mmol/L (21-32); CHLORIDE 105 mmol/L (101-111); CREATININE 0.5 mg/dL (0.4-1.0); GFR - MDRD 119 (>89); GLUCOSE 81 mg/dL (70-100); SODIUM 138 mmol/L (135-145)
[2018-05-17 05:18] LABS: INR 6.1 (0.8-1.2)
[2018-05-17] MEDS: CARBOXYMETHYLCELLULOSE OPHTH DROPS EACHEYE PRN ×2 (06:42→17:38)
[2018-05-17] MEDS: MICONAZOLE CREAM (EXTRA-THICK) 92 GM TUBE TOP PRN ×2 (06:44→08:36)
[2018-05-17] MEDS: LOSARTAN 50 MG TABLET PO SCH (08:32)
[2018-05-17] MEDS: LORATADINE 10 MG TABLET PO SCH (08:32)
[2018-05-17] MEDS: CALCIUM CITRATE 250 MG TABLET PO SCH (08:32)
[2018-05-17] MEDS: hydroCHLOROthiazide 25 MG TABLET PO SCH (08:32)
[2018-05-17] MEDS: CALCIUM CARBONATE CHEW 500 MG TABLET PO SCH ×2 (08:33→19:39)
[2018-05-17] MEDS: SACCHAROMYCES BOULARDII 250 MG CAPSULE PO SCH ×2 (08:33→17:33)
[2018-05-17] MEDS: OMEGA-3 ACID ETHYL ESTERS 1 GM CAPSULE PO SCH (08:33)
[2018-05-17] MEDS: METOPROLOL TARTRATE 50 MG TABLET PO SCH ×2 (08:33→19:40)
[2018-05-17] MEDS: ASPIRIN EC 81 MG TABLET PO SCH (08:36)
[2018-05-17] MEDS: NYSTATIN POWDER 15 GM TOP SCH ×2 (08:37→19:42)
[2018-05-17] MEDS: POLYETHYLENE GLYCOL 3350 17 GM PACKET PO SCH (08:37)
[2018-05-17] MEDS: MICONAZOLE CREAM (EXTRA-THICK) 92 GM TUBE TOP SCH ×2 (08:37→19:41)
[2018-05-17] MEDS: PANTOPRAZOLE 40 MG VIAL IVP SCH ×2 (08:37→19:40)
[2018-05-17] MEDS ORDERED: IOPAMIDOL-300 100 ML VIAL ONE (09:08)
[2018-05-17] MEDS ORDERED: chlorproMAZINE 25 MG in SODIUM CHLORIDE 0.9% 500 ML IV ONE (10:30)
[2018-05-17] MEDS ORDERED: chlorproMAZINE 25 MG TABLET PO PRN (12:00)
[2018-05-17] MEDS ORDERED: D5.45NS W/20 MEQ KCL 1,000 ML IV STA (12:04)
[2018-05-17] MEDS: MULTIVITAMIN W/MINERALS TABLET PO SCH (12:06)
--- NOTE | 2018-05-17 13:02 | CT Report ---
Procedure Date: 05/17/2018 Accession Number: [id number] / [id number] Procedure: CT - Chest W/ CPT Code: FULL RESULT: EXAM: CT CHEST EXAM DATE: 05/17/2018 10:01 AM. CLINICAL HISTORY: SOB, cough. COMPARISONS: 07/13/2010 TECHNIQUE: Routine helical CT imaging was performed through the chest. IV contrast: 80 cc Isovue 300 Reconstructions: Coronal and sagittal. In accordance with CT protocol optimization, one or more of the following dose reduction techniques were utilized for this exam: automated exposure control, adjustment of mA and/or KV based on patient size, or use of iterative reconstructive technique. FINDINGS: Lungs/Pleura: No nodules, bronchial thickening, consolidation, or edema. Pulmonary vasculature is normal. No pericardial effusion. Bilateral Pleural effusion are present. No pneumothorax. Mediastinum: Status post sternotomy and CABG. No adenopathy or masses. The heart size is normal calcification in the aortic arch. Bones: Degenerative change thoracic spine Included upper Abdomen: Right renal cyst. Surgical clips right upper quadrant and left axilla. Other: None. IMPRESSION: Bilateral pleural effusions. Otherwise negative chest CT status post CABG [facility]
[2018-05-17] MEDS ORDERED: IOPAMIDOL-300 100 ML VIAL IVP ONE (13:06)
[2018-05-17] MEDS: HYDROcod/ACETAM 5/325 MG TABLET PO PRN (13:12)
--- NOTE | 2018-05-17 13:19 | PROVIDER PROGRESS NOTE ---
Subjective - Prog Note Date Prog Note Date: 05/17/18 - Subjective Pt reports feeling: No change Subjective: pt report she continue to have intermittent nausea and vomiting. pt's son reported pt had EGD done at [facility] on January 2018. Since pt had dysphagia after pt had stroke on 2017. Per pt's son state pt did not have significant findings at that EGD. I will request the report. Pt also present mild wheezing and mild cough. Pt is allergy to furosemide. Pt denies fever, chill, chest pain. Current Medications - Current Medications Current Medications: Active Medications Hydrocodone Bitart/Acetaminophen ([place] 5/325) 1 tab PO Q4HR PRN PRN Reason: Pain 5 to 7 Last Admin: 05/17/18 13:12 Dose: 1 tab Albuterol () 2.5 mg INH Q6HR PRN PRN Reason: Wheezing Last Admin: 05/16/18 08:29 Dose: 2.5 mg Aspirin (Ecotrin) 81 mg PO DAILY [facility] Last Admin: 05/17/18 08:36 Dose: 81 mg Atorvastatin Calcium (Lipitor) 80 mg PO QPM [facility] Last Admin: 05/16/18 21:49 Dose: 80 mg Calcium Carbonate/Glycine (Tums) 500 mg PO BID [facility] Last Admin: 05/17/18 08:33 Dose: 500 mg Calcium Citrate () 250 mg PO DAILY [facility] Last Admin: 05/17/18 08:32 Dose: 250 mg Carboxymethylcellulose (Refresh 1% Ophth Drops) 1 drops EACHEYE Q4HR PRN PRN Reason: Dry Eye Last Admin: 05/17/18 06:42 Dose: 1 drops Chlorpromazine HCl (Thorazine) 25 mg PO TID PRN PRN Reason: Hiccups Diphenhydramine HCl (Benadryl) 25 mg PO Q4HR PRN PRN Reason: Allergy Symptoms Hydrochlorothiazide (Hydrodiuril) 25 mg PO DAILY [facility] Last Admin: 05/17/18 08:32 Dose: 25 mg Promethazine HCl 25 mg/ Sodium (Chloride) 51 mls @ 100 mls/hr IV Q6H PRN PRN Reason: Nausea / Vomiting Loratadine (Claritin) 10 mg PO DAILY [facility] Last Admin: 05/17/18 08:32 Dose: 10 mg Losartan Potassium (Cozaar) 50 mg PO DAILY [facility] Last Admin: 05/17/18 08:32 Dose: 50 mg Metoprolol Tartrate (Lopressor) 50 mg PO BID [facility] Last Admin: 05/17/18 08:33 Dose: 50 mg Miconazole (Secura Extra-Thick) 1 applic TOP BID [facility] Last Admin: 05/17/18 08:37 Dose: 1 applic Miconazole (Secura Extra-Thick) 1 applic TOP PRN PRN PRN Reason: AFFECTED SKIN Last Admin: 05/17/18 08:36 Dose: 1 applic Mineral Oil (Cavilon) 1 applic TOP PRN PRN PRN Reason: Skin Care Last Admin: 05/15/18 07:26 Dose: 1 applic Multivitamins/Minerals (Theragran M) 1 tab PO DAILYWM [facility] Last Admin: 05/17/18 12:06 Dose: Not Given Nitroglycerin (Nitrostat) 0.4 mg SL Q5MIN PRN PRN Reason: Chest Pain Nystatin (Nystop) 0 applic TOP BID [facility] Last Admin: 05/17/18 08:37 Dose: 1 applic [id number] Ethyl Esters (Lovaza) 1 gm PO DAILY [facility] Last Admin: 05/17/18 08:33 Dose: 1 gm Ondansetron HCl (Zofran Inj) 4 mg IVP Q4HR PRN PRN Reason: Nausea / Vomiting Last Admin: 05/16/18 08:51 Dose: 4 mg Pantoprazole Sodium (Protonix) 40 mg IVP BID [facility] Last Admin: 05/17/18 08:37 Dose: 40 mg Polyethylene Glycol (Miralax) 17 gm PO DAILY [facility] Last Admin: 05/17/18 08:37 Dose: Not Given Prochlorperazine Edisylate (Compazine Inj) 10 mg IVP Q4HR PRN PRN Reason: Nausea / Vomiting Saccharomyces Boulardii (Florastor) 250 mg PO BIDWM [facility] Last Admin: 05/17/18 08:33 Dose: 250 mg Sodium Chloride (Normal Saline Flush 0.9%) 10 ml IVP PRN PRN PRN Reason: NEEDED PER PROVIDER ORDERS Sodium Chloride (Normal Saline Flush 0.9%) 10 ml IVP 0100,0900,1700 [facility] Last Admin: 05/17/18 08:38 Dose: 10 ml Temazepam (Restoril) 15 mg PO QPM PRN PRN Reason: Insomnia Albuterol Sulfate [Proair Hfa Inhaler] 2 puffs INH Q6H PRN 03/31/15 Loratadine [Allergy Relief] 10 mg PO DAILY 03/31/15 Metoprolol Tartrate [Lopressor] 50 mg PO BID 03/31/15 [place]-3 Fatty Acids/Fish Oil [[place] 3 1,000 mg Softgel] 1 gm PO DAILY 03/31/15 Atorvastatin Calcium 80 mg PO QPM 05/15/18 Hydrocodone/Acetaminophen [Hydrocodone-Acetamin 5-325 mg] 1 tab PO BID PRN 05/15 Nitroglycerin [Nitroglycerin] 0.4 mg SL Q5MIN PRN MDD 3 DOSES 05/15/18 Ondansetron Odt [Zofran Odt] 4 mg PO Q6HR PRN 05/15/18 Pantoprazole Sodium 40 mg PO DAILY 05/15/18 Warfarin Sodium [Warfarin Sodium] 1.5 mg PO DAILY 05/15/18 Objective - Vital Signs/Intake & Output Reviewed Vital Signs: Yes Vital Signs: Vital Signs x48h Temp Pulse Pulse Resp BP BP Pulse Ox 05/17/18 12:03 36.7 C 82 20 144/77 H 96 05/17/18 09:30 84 19 05/17/18 08:33 153/84 H 05/17/18 08:10 36.7 C 87 20 153/84 H 95 05/17/18 05:32 36.9 C 84 16 144/61 H 94 Intake & Output: Intake & Output 05/14/18 05/15/18 05/16/18 05/17/18 23:59 23:59 23:59 23:59 Intake Total 1662.75 2053.25 Output Total 450 750 Balance 1212.75 1303.25 - Objective General Appearance: positive: No acute distress, Alert. negative: Lethargic Eyes Bilateral: positive: Normal inspection, PERRL, No lid inflammation, Conjunctivae nml ENT: positive: ENT inspection nml, Pharynx nml, No signs of dehydration. negative: Purulent nasal drainage, Pharyngeal erythema, Oral lesions Neck: positive: Nml inspection, Thyroid nml, No JVD, Trachea midline. negative : Thyromegaly, Lymphadenopathy (R), Lymphadenopathy (L), Stiff neck, Swelling/ bruising, Tracheal deviation Respiratory: positive: Chest non-tender, No respiratory distress, Wheezes. negative: Rales, Rhonchi Cardiovascular: positive: Regular rate & rhythm, No murmur, No gallop. negative : Irregularly irregular, Extrasystoles, Tachycardia, Bradycardia, JVD present, Systolic murmur, Diastolic murmur Peripheral Pulses: 2+ Radial (R), 2+ Radial (L), 2+ Dorsalis pedis (R), 2+ Dorsalis pedis (L) Abdomen: positive: Non-tender, No organomegaly, Nml bowel sounds, No distention. negative: Tenderness, Guarding, Rebound Back: positive: Nml inspection. negative: CVA tenderness (R), CVA tenderness (L ) Skin: positive: Color nml, No rash, Warm, Dry. negative: Cyanosis, Diaphoresis , Pallor, Skin rash Extremities: positive: Non-tender, Full ROM, Nml appearance. negative: Calf tenderness, Joint swelling, Chelsy's sign/cords Neurologic/Psychiatric: positive: Sensation nml, Mood/affect nml. negative: Weakness, Sensory loss, Facial droop, Slurred/abnml speech, Depressed mood/ affect - Lab Results Fish Bones: 05/17/18 04:25 05/17/18 04:25 Other Labs: Lab Results x24hrs 05/17/18 05/17/18 05/17/18 Range/Units 04:25 04:25 04:25 WBC 5.7 (4.8-10.8) x10^3/uL RBC 3.52 L (4.20-5.40) 10^6/uL Hgb 10.3 L (12.0-16.0) g/dL Hct 31.3 L (37.0-47.0) % MCV 88.9 (81.0-99.0) fL MCH 29.4 (27.0-31.0) pg MCHC 33.0 (32.0-36.0) g/dL RDW 21.0 H (12.0-15.0) % Plt Count 224 (130-450) 10^3/uL MPV 8.7 (7.9-10.8) fL PT 64.7 H (9.9-12.6) secs INR 6.1 H* (0.8-1.2) Sodium 138 (135-145) mmol/L Potassium 3.9 (3.5-5.0) mmol/L Chloride 105 (101-111) mmol/L Carbon Dioxide 28 (21-32) mmol/L Anion Gap 5.0 L (6-13) BUN < 5 L (6-20) mg/dL Creatinine 0.5 (0.4-1.0) mg/dL Estimated GFR (MDRD) 119 (>89) Glucose 81 (70-100) mg/dL Lactic Acid (0.5-2.2) mmol/L Calcium 8.1 L (8.5-10.3) mg/dL Lactate Dehydrogenase (91-225) IU/L 05/17/18 05/16/18 Range/Units 04:25 14:56 WBC (4.8-10.8) x10^3/uL RBC (4.20-5.40) 10^6/uL Hgb (12.0-16.0) g/dL Hct (37.0-47.0) % MCV (81.0-99.0) fL MCH (27.0-31.0) pg MCHC (32.0-36.0) g/dL RDW (12.0-15.0) % Plt Count (130-450) 10^3/uL MPV (7.9-10.8) fL PT (9.9-12.6) secs INR (0.8-1.2) Sodium (135-145) mmol/L Potassium (3.5-5.0) mmol/L Chloride (101-111) mmol/L Carbon Dioxide (21-32) mmol/L Anion Gap (6-13) BUN (6-20) mg/dL Creatinine (0.4-1.0) mg/dL Estimated GFR (MDRD) (>89) Glucose (70-100) mg/dL Lactic Acid 2.7 H (0.5-2.2) mmol/L Calcium (8.5-10.3) mg/dL Lactate Dehydrogenase 137 (91-225) IU/L ABX Reporting Has patient been on IV antibiotics over the past 48 hours?: No Assessment/Plan - Problem List (1) Hypokalemia Impression: Impression: 05/17 resolved 05/16 pt continue to have N/V, potassium today is 3. replacement of potassium recheck potassium control N/V resolved The patient was severely hypokalemic and we are correcting with IV fluids, IV riders, and oral supplements. I am unsure as to why the patient has become so hypokalemic; does not appear to be related to her current medications. I will ask pharmacy to review. (2) Abdominal pain Conclusion/Plan: 05/17 no complaints for abdominal pain controlled. 05/15, better, CT of abdomen is unremarkable. pt report burning sensation of upper and lower GI pain, add Tums PRN The patient has had abdominal pain, nausea, vomiting, and diarrhea. This appears to be viral gastroenteritis. We will rehydrate her, correct her electrolyte abnormalities, and start her on a clear liquid diet, advancing as tolerated. (3) HTN (hypertension) Conclusion/Plan: stable The patient has a history of hypertension and takes metoprolol, losartan, and hydrochlorothiazide at home. We will restart these medications while she is inpatient. If she continues to be hypertensive we will consider adding as needed clonidine. (4) Coronary artery disease Conclusion/Plan: stable, monitor with tele/[email or web address] The patient has a history of coronary artery disease and underwent a CABG about 8 or 9 years ago. There is also remote history of a myocardial infarction according to the medical records. I will restart her on her baby aspirin and medications for her dyslipidemia and hypertension. We will obtain an echocardiogram because of the [place] history. (5) Hyperlipidemia Conclusion/Plan: The patient has a history of dyslipidemia and takes fenofibrate, omega-3 fatty acids, and simvastatin at home. We will continue these while she is inpatient. (6) COPD (chronic obstructive pulmonary disease) Conclusion/Plan: Patient has a history of COPD and takes albuterol at home. We will order DuoNeb nebulizer treatments as needed. (7) Gastroesophageal reflux disease Conclusion/Plan: 05/16 IV of Protonix Bid The patient has a history of gastroesophageal reflux disease and takes Nexium at home. We will continue this while she is inpatient. (8) History of left breast cancer continue support (9) nausea and vomiting 05/17, pt's son report pt has been dysphagia, persistent hiccups-like nausea and vomiting since pt had stroke on 2017. [facility]. This was found in this EGD: ulcerates mucosa in the esophagus, LA grade D erosive esophagitis, normal stomach, normal examination duodenum, no specimens collected. Pt is advised to take Omeprazole Bid for 2 months, then 40 mg daily, and follow repeat EGD in 2-3 months to confirm. But pt did not follow up yet consult with Dr. Pedraza to see if we can do EGD in here to see if healing of her esophagitis continue Protonix Bid IV continue antiemesis PRN 05/16 pt report she still has some N/V add Protonix IV Bid add Compazine and Phanergan PRN continue IVF of NS it seems from pt's viral gastritis IVF, hydration antiemesis PRN daily lab and vital monitor (10) Wheezing 05/[address] reveals bilateral pleural effusion without other significant findings pt had 96% sats on room air pt is allergy to Lasix, but rash allergy. discussed with pharmacy if another diuretics for pt No other good choose, PO Lasix at 20 mg, PRN Benadryl, nurse closely monitor pt for any allergy reaction potassium 20 meq lab and vital monitor
[2018-05-17] MEDS ORDERED: POTASSIUM CHLORIDE 20 MEQ TABLET PO ONE (14:15)
[2018-05-17] MEDS ORDERED: [UNRECOGNIZED DRUG - OTHER] IV ONE (14:15)
[2018-05-17] MEDS ORDERED: SODIUM CHLORIDE 0.9% IV ONE (14:15)
[2018-05-17] MEDS ORDERED: FUROSEMIDE 20 MG TABLET PO STA (14:38)
[2018-05-17] MEDS ORDERED: diphenhydrAMINE 25 MG CAPSULE PO PRN (14:52)
--- NOTE | 2018-05-17 18:48 | CONSULTATION NOTE ---
Referring Provider Name of Referring Provider:: Zuniga Consult Date: 05/17/18 Chief Complaint - Chief Complaint Chief Complaint: N/V/abd pain History of Present Illness - Admitted From Admitted From:: ER - History Obtained From Records Reviewed: yes History obtained from: pt, records Exam Limitations: memory impairment - History of Present Illness HPI Comment/Other: 82 yo female admitted 2 days ago with several day hx of N/V/periumbilical abdominal pain/diarrhea, nonbloody, with associated volume depletion. She was evaluated with Chest and abd/pelvic CT studies which failed to show significant pathology. Since admission her sx have slowly improved and now reports no further diarrhea, no abd pain, and is able to tolerate a liquid diet well today. No fever/chills. She is s/p remote cholecystectomy and has no hx PUD. 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 She was treated with PPI therapy and advised to have a f/u EGD in 2 months, but has yet to f/u. She reports minimal dysphagia at present, primarily for pills. She denies heartburn on her present medical regimen. She doesn't beilieve that she has ever had a colonoscopy but her record notes a hx of colon polyps. She thinks her father may have suffered from colon cancer. No recent wt changes that she is aware of. No melena/BRBPR. 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, Alzhiemer's, CVA Endocrine/Autoimmune: reports: None GI: reports: GERD, Colon polyps, Chronic diarrhea, Other : reports: Kidney stones, Other HEENT: reports: Other Psych: reports: Anxiety, Other Musculoskeletal: reports: Osteoarthritis, Chronic back pain Derm: reports: None MRSA Hx?: No - Past Surgical History General: reports: Cholecystectomy, Colonoscopy Ortho: reports: Arthroscopic surgery /[employer] TITLES: reports: 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, Other Cardiovascular: reports: CABG, Coronary stent - Family & Social History Family History: Mother: (Mother in childbirth), Father: , Cancer (Father of throat cancer), Sister: , Diabetes, Type 2, Brother: , CAD, Hyperlipidemia, Hypertension, [place] Living arrangement: At home Living Situation: With family - Substance History Use: Uses substance without health or social issues: NONE Abuse: Recurrent use of substance despite neg consequences: NONE Dependence: Experiences withdrawal or developed tolerances: NONE - POLST Patient has POLST: No POLST Status: Full Code Meds/Allgy - Home Medications Home Medications: Ambulatory Orders Medication Instructions Recorded Confirmed Albuterol Sulfate [Proair Hfa 2 puffs INH Q6H PRN 03/31/15 05/15/18 Inhaler] Loratadine [Allergy Relief] 10 mg PO DAILY 03/31/15 05/15/18 Metoprolol Tartrate [Lopressor] 50 mg PO BID 03/31/15 05/15/18 [place]-3 Fatty Acids/Fish Oil 1 gm PO DAILY 03/31/15 05/15/18 [[place] 3 1,000 mg Softgel] Atorvastatin Calcium 80 mg PO QPM 05/15/18 05/15/18 Hydrocodone/Acetaminophen 1 tab PO BID PRN 05/15/18 05/15/18 [Hydrocodone-Acetamin 5-325 mg] Nitroglycerin [Nitroglycerin] 0.4 mg SL Q5MIN PRN MDD 3 DOSES 05/15/18 05/15/18 Ondansetron Odt [Zofran Odt] 4 mg PO Q6HR PRN 05/15/18 05/15/18 Pantoprazole Sodium 40 mg PO DAILY 05/15/18 05/15/18 Warfarin Sodium [Warfarin Sodium] 1.5 mg PO DAILY 05/15/18 - Allergies Allergies/Adverse Reactions: Allergies Allergy/AdvReac Type Severity Reaction Status Date / Time furosemide Allergy Intermediate Rash Verified 05/14/18 20:25 lisinopril AdvReac Mild Cough Verified 05/14/18 20:25 Review of Systems - Constitutional Constitutional: reports: Poor appetite. denies: Fatigue, Fever, Chills, Weakness, Weight gain, Weight loss - Gastrointestinal Gastrointestinal: reports: Abdominal pain, Diarrhea, Change in bowel habits, Nausea, Vomiting, Reflux/heartburn, Poor appetite. denies: Black stools, Bloody stools, Abdoul blood emesis, Coffee grounds emesis - Hematologic/Lymphatic Hematologic/Lymphatic: denies: Blood clots, Bleeding tendencies - All Other Systems All Other Systems: reports: Other (limited by memory dysfunction) Exam - Vital Signs Reviewed Vital Signs: Yes Vital Signs: Vital Signs x48h Temp Pulse Resp BP Pulse Ox 05/17/18 15:45 36.8 C 98 18 148/66 H 93 05/17/18 12:03 36.7 C 82 20 144/77 H 96 - Physical Exam General Appearance: positive: No acute distress, Alert Eyes Bilateral: positive: Conjunctivae nml, No scleral icterus ENT: positive: Pharynx nml, No signs of dehydration Neck: positive: No JVD. negative: Lymphadenopathy (R), Lymphadenopathy (L) Respiratory: positive: Chest non-tender, No respiratory distress, Breath sounds nml Cardiovascular: positive: Regular rate & rhythm, No murmur, No gallop Abdomen: positive: Non-tender, No organomegaly, Nml bowel sounds, No distention. negative: Guarding, Rebound, Hepatomegaly, Splenomegaly, Mass Skin: positive: Color nml, No rash, Warm, Dry. negative: Cyanosis Extremities: positive: Nml appearance, Pedal edema (1+). negative: Calf tenderness Conclusion/Plan - Diagnosis Diagnosis: 1. N/V/abd pain/diarrhea, resolving; likely viral syndrome/ gastroenteritis with associated volume depletion. 2. GERD with severe erosive esophagitis, clinically improve with PPI therapy. 3. hypoprothrombinemia of unclear etiology, likely due to drug interaction, stress of associated GI illness, etc - Plan Plan: Agree with advancing diet as tolerated; correct over anticoagulation status; consider outpt f/u of erosive esophagitis with EGD either here or back in [place]. Thanks, - Lab Results Lab results reviewed: Yes Fish Bones: 05/17/18 04:25 05/17/18 04:25 Other Lab Results: INR 6; lactate was 2.7; lft's nl. - Diagnostic Imaging Results Diagnostic Imaging Results: positive: Final report reviewed Diagnostic Imaging Results Comments: see hpi - EKG Results EKG Interpreted Independently: No
[2018-05-17] MEDS: ATORVASTATIN 40 MG TABLET PO SCH (19:40)
[2018-05-18] MEDS: SODIUM CHLORIDE FLUSH 0.9% 10 ML SYRINGE IVP SCH ×3 (00:26→17:00)
[2018-05-18] MEDS: HYDROcod/ACETAM 5/325 MG TABLET PO PRN (00:26)
[2018-05-18] MEDS: CARBOXYMETHYLCELLULOSE OPHTH DROPS EACHEYE PRN ×2 (00:27→20:41)
[2018-05-18] MEDS: MICONAZOLE CREAM (EXTRA-THICK) 92 GM TUBE TOP PRN ×2 (00:27→17:01)
[2018-05-18] MEDS: ONDANSETRON 4 MG/2 ML VIAL IVP PRN ×2 (00:42→10:38)
[2018-05-18] MEDS: SODIUM CHLORIDE FLUSH 0.9% 10 ML SYRINGE IVP PRN ×2 (00:42→20:42)
[2018-05-18 05:09] LABS: HGB - HEMOGLOBIN 10.5 g/dL (12.0-16.0); MEAN CORPUSCULAR HGB CONC 32.5 g/dL (32.0-36.0); MEAN CORPUSCULAR VOLUME 89.3 fL (81.0-99.0); RED BLOOD COUNT 3.62 10^6/uL (4.20-5.40); RED CELL DISTRIBUTION WIDTH 20.3 % (12.0-15.0); WHITE BLOOD COUNT 5.4 x10^3/uL (4.8-10.8)
[2018-05-18 05:19] LABS: INR 4.3 (0.8-1.2); PT - PROTHROMBIN TIME 45.9 secs (9.9-12.6)
[2018-05-18 05:20] LABS: BUN - BLOOD UREA NITROGEN < 5 mg/dL (6-20); CALCIUM 8.2 mg/dL (8.5-10.3); CARBON DIOXIDE - CO2 31 mmol/L (21-32); CHLORIDE 103 mmol/L (101-111); CREATININE 0.6 mg/dL (0.4-1.0); GFR - MDRD 96 (>89); GLUCOSE 87 mg/dL (70-100); SODIUM 139 mmol/L (135-145)
[2018-05-18] MEDS: PANTOPRAZOLE 40 MG VIAL IVP SCH ×2 (09:02→20:41)
[2018-05-18] MEDS: POLYETHYLENE GLYCOL 3350 17 GM PACKET PO SCH (09:07)
[2018-05-18] MEDS: METOPROLOL TARTRATE 50 MG TABLET PO SCH ×2 (09:07→20:42)
[2018-05-18] MEDS: CALCIUM CARBONATE CHEW 500 MG TABLET PO SCH ×2 (09:07→20:42)
[2018-05-18] MEDS: OMEGA-3 ACID ETHYL ESTERS 1 GM CAPSULE PO SCH (09:07)
[2018-05-18] MEDS: LOSARTAN 50 MG TABLET PO SCH (09:13)
[2018-05-18] MEDS: hydroCHLOROthiazide 25 MG TABLET PO SCH (09:13)
[2018-05-18] MEDS: FUROSEMIDE 20 MG TABLET PO SCH (09:13)
[2018-05-18] MEDS: MULTIVITAMIN W/MINERALS TABLET PO SCH (09:13)
[2018-05-18] MEDS: CALCIUM CITRATE 250 MG TABLET PO SCH (09:13)
[2018-05-18] MEDS: MICONAZOLE CREAM (EXTRA-THICK) 92 GM TUBE TOP SCH ×2 (09:14→20:48)
[2018-05-18] MEDS: LORATADINE 10 MG TABLET PO SCH (09:14)
[2018-05-18] MEDS: SACCHAROMYCES BOULARDII 250 MG CAPSULE PO SCH ×2 (09:14→17:00)
[2018-05-18] MEDS: NYSTATIN POWDER 15 GM TOP SCH ×2 (09:14→20:48)
[2018-05-18] MEDS ORDERED: LIDOCAINE-MPF 2% 5 ML VIAL IM ONE (10:00)
[2018-05-18] MEDS ORDERED: PROPOFOL 200 MG/20 ML VIAL IVP ONE (10:00)
--- NOTE | 2018-05-18 10:22 | XRAY Report ---
Reason: abdominal pain Procedure Date: 05/18/2018 Accession Number: [id number] / [id number] Procedure: XR - Abdomen 2 View X-Ray CPT Code: 96467 FULL RESULT: EXAM: ABDOMEN RADIOGRAPHY EXAM DATE: 05/18/2018 10:02 AM. CLINICAL HISTORY: Abdomen pain COMPARISON: CT 05/14/2018. TECHNIQUE: 2 views. FINDINGS: Lung Bases: Unremarkable. Bowel Gas Pattern: Within normal limits. No dilated loops or abnormal fluid levels. Free Air: None. Other: Changes of prior sternotomy. Surgical clips left axilla and right upper quadrant. Degenerative change in the spine. IMPRESSION: Nonspecific 2-view abdomen x-ray. [facility]
--- NOTE | 2018-05-18 12:55 | PROVIDER PROGRESS NOTE ---
Subjective - Prog Note Date Prog Note Date: 05/18/18 - Subjective Pt reports feeling: No change Subjective: pt still has some nausea and vomiting, and some mild diffused abdominal pain. Pt 's PCP, Dr. Edwards, call me today morning. Dr. Edwards reports pt has been on nausea, vomiting and mild abdominal pain for quite long period time. It is pt 's chronic condition for a while. She will fax pt's last SNF discharge to me. Pt had EGD done at [facility], which found pt had grade D erosive esophagitis. pt did not follow up to have EGD to monitor healing condition. Discuss with Dr. Ajay Pedraza to Plan pt have EGD on tomorrow. Pt's INR is 4.3, already hold Coumadin when pt was inpt. Pt's CT was unremarkable. Plate xray is ordered to monitor pt any gas pattern change Current Medications - Current Medications Current Medications: Active Medications Hydrocodone Bitart/Acetaminophen ([place] 5/325) 1 tab PO Q4HR PRN PRN Reason: Pain 5 to 7 Last Admin: 05/18/18 00:26 Dose: 1 tab Albuterol () 2.5 mg INH Q6HR PRN PRN Reason: Wheezing Last Admin: 05/16/18 08:29 Dose: 2.5 mg Atorvastatin Calcium (Lipitor) 80 mg PO QPM [facility] Last Admin: 05/17/18 19:40 Dose: 80 mg Calcium Carbonate/Glycine (Tums) 500 mg PO BID [facility] Last Admin: 05/18/18 09:07 Dose: 500 mg Calcium Citrate () 250 mg PO DAILY [facility] Last Admin: 05/18/18 09:13 Dose: 250 mg Carboxymethylcellulose (Refresh 1% Ophth Drops) 1 drops EACHEYE Q4HR PRN PRN Reason: Dry Eye Last Admin: 05/18/18 00:27 Dose: 1 drops Chlorpromazine HCl (Thorazine) 25 mg PO TID PRN PRN Reason: Hiccups Diphenhydramine HCl (Benadryl) 25 mg PO Q4HR PRN PRN Reason: Allergy Symptoms Furosemide (Lasix) 20 mg PO DAILY [facility] Last Admin: 05/18/18 09:13 Dose: 20 mg Hydrochlorothiazide (Hydrodiuril) 25 mg PO DAILY [facility] Last Admin: 05/18/18 09:13 Dose: 25 mg Promethazine HCl 25 mg/ Sodium (Chloride) 51 mls @ 100 mls/hr IV Q6H PRN PRN Reason: Nausea / Vomiting Loratadine (Claritin) 10 mg PO DAILY [facility] Last Admin: 05/18/18 09:14 Dose: 10 mg Losartan Potassium (Cozaar) 50 mg PO DAILY [facility] Last Admin: 05/18/18 09:13 Dose: 50 mg Metoprolol Tartrate (Lopressor) 50 mg PO BID [facility] Last Admin: 05/18/18 09:07 Dose: 50 mg Miconazole (Secura Extra-Thick) 1 applic TOP BID [facility] Last Admin: 05/18/18 09:14 Dose: 1 applic Miconazole (Secura Extra-Thick) 1 applic TOP PRN PRN PRN Reason: AFFECTED SKIN Last Admin: 05/18/18 00:27 Dose: 1 applic Mineral Oil (Cavilon) 1 applic TOP PRN PRN PRN Reason: Skin Care Last Admin: 05/15/18 07:26 Dose: 1 applic Multivitamins/Minerals (Theragran M) 1 tab PO DAILYWM [facility] Last Admin: 05/18/18 09:13 Dose: 1 tab Nitroglycerin (Nitrostat) 0.4 mg SL Q5MIN PRN PRN Reason: Chest Pain Nystatin (Nystop) 0 applic TOP BID [facility] Last Admin: 05/18/18 09:14 Dose: Not Given [id number] Ethyl Esters (Lovaza) 1 gm PO DAILY [facility] Last Admin: 05/18/18 09:07 Dose: 1 gm Ondansetron HCl (Zofran Inj) 4 mg IVP Q4HR PRN PRN Reason: Nausea / Vomiting Last Admin: 05/18/18 10:38 Dose: 4 mg Pantoprazole Sodium (Protonix) 40 mg IVP BID [facility] Last Admin: 05/18/18 09:02 Dose: 40 mg Polyethylene Glycol (Miralax) 17 gm PO DAILY [facility] Last Admin: 05/18/18 09:07 Dose: Not Given Prochlorperazine Edisylate (Compazine Inj) 10 mg IVP Q4HR PRN PRN Reason: Nausea / Vomiting Saccharomyces Boulardii (Florastor) 250 mg PO BIDWM [facility] Last Admin: 05/18/18 09:14 Dose: 250 mg Sodium Chloride (Normal Saline Flush 0.9%) 10 ml IVP PRN PRN PRN Reason: NEEDED PER PROVIDER ORDERS Last Admin: 05/18/18 00:42 Dose: 10 ml Sodium Chloride (Normal Saline Flush 0.9%) 10 ml IVP [id number],0900,1700 [facility] Last Admin: 05/18/18 09:03 Dose: 10 ml Temazepam (Restoril) 15 mg PO QPM PRN PRN Reason: Insomnia Albuterol Sulfate [Proair Hfa Inhaler] 2 puffs INH Q6H PRN 03/31/15 Loratadine [Allergy Relief] 10 mg PO DAILY 03/31/15 Metoprolol Tartrate [Lopressor] 50 mg PO BID 03/31/15 [place]-3 Fatty Acids/Fish Oil [[place] 3 1,000 mg Softgel] 1 gm PO DAILY 03/31/15 Atorvastatin Calcium 80 mg PO QPM 05/15/18 Hydrocodone/Acetaminophen [Hydrocodone-Acetamin 5-325 mg] 1 tab PO BID PRN 05/15 Nitroglycerin [Nitroglycerin] 0.4 mg SL Q5MIN PRN MDD 3 DOSES 05/15/18 Ondansetron Odt [Zofran Odt] 4 mg PO Q6HR PRN 05/15/18 Pantoprazole Sodium 40 mg PO DAILY 05/15/18 Warfarin Sodium [Warfarin Sodium] 1.5 mg PO DAILY 05/15/18 Objective - Vital Signs/Intake & Output Reviewed Vital Signs: Yes Vital Signs: Vital Signs x48h Temp Pulse Resp BP BP Pulse Ox 05/18/18 09:27 36.8 C 80 20 143/74 H 94 05/18/18 09:07 143/74 H Intake & Output: Intake & Output 05/15/18 05/16/18 05/17/18 05/18/18 23:59 23:59 23:59 23:59 Intake Total 1662.75 3843.25 100 Output Total 450 1850 200 Balance 1212.75 1993.25 -100 - Objective General Appearance: positive: No acute distress, Alert. negative: Lethargic Eyes Bilateral: positive: Normal inspection, PERRL, No lid inflammation, Conjunctivae nml ENT: positive: ENT inspection nml, Pharynx nml, No signs of dehydration. negative: Purulent nasal drainage, Pharyngeal erythema, Oral lesions Neck: positive: Nml inspection, Thyroid nml, No JVD, Trachea midline. negative : Thyromegaly, Lymphadenopathy (R), Lymphadenopathy (L), Stiff neck, Swelling/ bruising, Tracheal deviation Respiratory: positive: Chest non-tender, No respiratory distress, Breath sounds nml. negative: Wheezes, Rales, Rhonchi Cardiovascular: positive: Regular rate & rhythm, No murmur, No gallop. negative : Irregularly irregular, Extrasystoles, Tachycardia, Bradycardia, JVD present, Systolic murmur, Diastolic murmur Peripheral Pulses: 2+ Radial (R), 2+ Radial (L), 2+ Dorsalis pedis (R), 2+ Dorsalis pedis (L) Abdomen: positive: No organomegaly, Nml bowel sounds, No distention, Tenderness. negative: Guarding, Rebound Back: positive: Nml inspection. negative: CVA tenderness (R), CVA tenderness (L ) Skin: positive: Color nml, No rash, Warm, Dry. negative: Cyanosis, Diaphoresis , Pallor Extremities: positive: Non-tender, Nml appearance. negative: Pedal edema, Calf tenderness, Joint swelling, Chelsy's sign/cords Neurologic/Psychiatric: positive: Sensation nml, Mood/affect nml. negative: Disoriented to time, Weakness, Facial droop, Slurred/abnml speech, Depressed mood/affect - Lab Results Fish Bones: 05/18/18 04:30 05/18/18 04:30 Other Labs: Lab Results x24hrs 05/18/18 05/18/18 05/18/18 Range/Units 08:29 04:30 04:30 WBC (4.8-10.8) x10^3/uL RBC (4.20-5.40) 10^6/uL Hgb (12.0-16.0) g/dL Hct (37.0-47.0) % MCV (81.0-99.0) fL MCH (27.0-31.0) pg MCHC (32.0-36.0) g/dL RDW (12.0-15.0) % Plt Count (130-450) 10^3/uL MPV (7.9-10.8) fL PT 45.9 H (9.9-12.6) secs INR 4.3 H (0.8-1.2) Sodium 139 (135-145) mmol/L Potassium 4.0 (3.5-5.0) mmol/L Chloride 103 (101-111) mmol/L Carbon Dioxide 31 (21-32) mmol/L Anion Gap 5.0 L (6-13) BUN < 5 L (6-20) mg/dL Creatinine 0.6 (0.4-1.0) mg/dL Estimated GFR (MDRD) 96 (>89) Glucose 87 (70-100) mg/dL Lactic Acid 1.1 (0.5-2.2) mmol/L Calcium 8.2 L (8.5-10.3) mg/dL 05/18/18 Range/Units 04:30 WBC 5.4 (4.8-10.8) x10^3/uL RBC 3.62 L (4.20-5.40) 10^6/uL Hgb 10.5 L (12.0-16.0) g/dL Hct 32.3 L (37.0-47.0) % MCV 89.3 (81.0-99.0) fL MCH 29.0 (27.0-31.0) pg MCHC 32.5 (32.0-36.0) g/dL RDW 20.3 H (12.0-15.0) % Plt Count 224 (130-450) 10^3/uL MPV 9.0 (7.9-10.8) fL PT (9.9-12.6) secs INR (0.8-1.2) Sodium (135-145) mmol/L Potassium (3.5-5.0) mmol/L Chloride (101-111) mmol/L Carbon Dioxide (21-32) mmol/L Anion Gap (6-13) BUN (6-20) mg/dL Creatinine (0.4-1.0) mg/dL Estimated GFR (MDRD) (>89) Glucose (70-100) mg/dL Lactic Acid (0.5-2.2) mmol/L Calcium (8.5-10.3) mg/dL ABX Reporting Has patient been on IV antibiotics over the past 48 hours?: No Assessment/Plan - Problem List (1) Hypokalemia Impression: Impression: 05/18 resolved 05/17 resolved 05/16 pt continue to have N/V, potassium today is 3. replacement of potassium recheck potassium control N/V resolved The patient was severely hypokalemic and we are correcting with IV fluids, IV riders, and oral supplements. I am unsure as to why the patient has become so hypokalemic; does not appear to be related to her current medications. I will ask pharmacy to review. (2) Abdominal pain Conclusion/Plan: 05/18 still complain of diffused abdominal pain. Pt's PCP called me pt has been this chronic condition for quite long time. CT of abdomen was unremarkable. Xray of abdomen reveals no acute abnormal pattern. will have EGD on tomorrow to monitor the healing status since pt did not follow up check of her severe erosive esophagitis and ulcer. 05/17 no complaints for abdominal pain controlled. 05/15, better, CT of abdomen is unremarkable. pt report burning sensation of upper and lower GI pain, add Tums PRN The patient has had abdominal pain, nausea, vomiting, and diarrhea. This appears to be viral gastroenteritis. We will rehydrate her, correct her electrolyte abnormalities, and start her on a clear liquid diet, advancing as tolerated. (3) HTN (hypertension) Conclusion/Plan: stable The patient has a history of hypertension and takes metoprolol, losartan, and hydrochlorothiazide at home. We will restart these medications while she is inpatient. If she continues to be hypertensive we will consider adding as needed clonidine. (4) Coronary artery disease Conclusion/Plan: stable, monitor with tele/vital The patient has a history of coronary artery disease and underwent a CABG about 8 or 9 years ago. There is also remote history of a myocardial infarction according to the medical records. I will restart her on her baby aspirin and medications for her dyslipidemia and hypertension. We will obtain an echocardiogram because of the NC history. (5) Hyperlipidemia Conclusion/Plan: The patient has a history of dyslipidemia and takes fenofibrate, omega-3 fatty acids, and simvastatin at home. We will continue these while she is inpatient. (6) COPD (chronic obstructive pulmonary disease) Conclusion/Plan: Patient has a history of COPD and takes albuterol at home. We will order DuoNeb nebulizer treatments as needed. (7) Gastroesophageal reflux disease Conclusion/Plan: 05/16 IV of Protonix Bid The patient has a history of gastroesophageal reflux disease and takes Nexium at home. We will continue this while she is inpatient. (8) History of left breast cancer continue support (9) nausea and vomiting 05/18 request nurse on time let pt have antiemesis PRN pt will have EGD on tomorrow to check healing status of erosive esophagitis continue lab monitor, vital monitor 05/17, pt's son report pt has been dysphagia, persistent hiccups-like nausea and vomiting since pt had stroke on 2017. Pt had EGD done at [facility] on 01/2018. This was found in this EGD: ulcerates mucosa in the esophagus, LA grade D erosive esophagitis, normal stomach, normal examination duodenum, no specimens collected. Pt is advised to take Omeprazole Bid for 2 months, then 40 mg daily, and follow repeat EGD in 2-3 months to confirm. But pt did not follow up yet consult with Dr. Pedraza to see if we can do EGD in here to see if healing of her esophagitis continue Protonix Bid IV continue antiemesis PRN 05/16 pt report she still has some N/V add Protonix IV Bid add Compazine and Phanergan PRN continue IVF of NS it seems from pt's viral gastritis IVF, hydration antiemesis PRN daily lab and vital monitor (10) Wheezing 05/18 great improved. no SOB. pt has 94% sats on room air continue lower dosage of Lasix. 05/[address] reveals bilateral pleural effusion without other significant findings pt had 96% sats on room air pt is allergy to Lasix, but rash allergy. discussed with pharmacy if another diuretics for pt No other good choose, PO Lasix at 20 mg, PRN Benadryl, nurse closely monitor pt for any allergy reaction potassium 20 meq lab and vital monitor
--- NOTE | 2018-05-18 17:54 | PROVIDER PROGRESS NOTE ---
Assessment/Plan - Problem List (1) Abdominal pain Qualifiers: Abdominal location: generalized Qualified Code(s): R10.84 - Generalized abdominal pain Assessment/Plan: Appears to be slowly improving but morning N/V persists. Rec: EGD in am. Dr. Gomez aware and will see pt in am to arrange. - Current Meds Current Meds: Current Medications Generic Name Dose Route Start Last Admin Trade Name Freq PRN Reason Stop Dose Admin Hydrocodone Bitart/Acetaminophen 1 tab 05/15/18 00:16 05/18/18 00:26 [place] 5/325 PO 1 tab Q4HR PRN Administration Pain 5 to 7 Albuterol 2.5 mg 05/15/18 22:59 05/16/18 08:29 INH 2.5 mg Q6HR PRN Administration Wheezing Atorvastatin Calcium 80 mg 05/15/18 21:00 05/17/18 19:40 Lipitor PO 80 mg QPM [facility] Administration Calcium Carbonate/Glycine 500 mg 05/15/18 09:00 05/18/18 09:07 Tums PO 500 mg BID [facility] Administration Calcium Citrate 250 mg 05/16/18 08:00 05/18/18 09:13 PO 250 mg DAILY [facility] Administration Carboxymethylcellulose 1 drops 05/16/18 09:25 05/18/18 00:27 Refresh 1% Ophth Drops EACHEYE 1 drops Q4HR PRN Administration Dry Eye Furosemide 20 mg 05/18/18 09:00 05/18/18 09:13 Lasix PO 20 mg DAILY [facility] Administration Hydrochlorothiazide 25 mg 05/15/18 09:00 05/18/18 09:13 Hydrodiuril PO 25 mg DAILY [facility] Administration Loratadine 10 mg 05/16/18 09:00 05/18/18 09:14 Claritin PO 10 mg DAILY [facility] Administration Losartan Potassium 50 mg 05/15/18 09:00 05/18/18 09:13 Cozaar PO 50 mg DAILY [facility] Administration Metoprolol Tartrate 50 mg 05/15/18 09:00 05/18/18 09:07 Lopressor PO 50 mg BID [facility] Administration Miconazole 1 applic 05/15/18 21:00 05/18/18 09:14 Secura Extra-Thick TOP 1 applic BID [facility] Administration Miconazole 1 applic 05/15/18 14:28 05/18/18 17:01 Secura Extra-Thick TOP 1 applic PRN PRN Administration AFFECTED SKIN Mineral Oil 1 applic 05/15/18 07:10 05/15/18 07:26 Cavilon TOP 1 applic PRN PRN Administration Skin Care Multivitamins/Minerals 1 tab 05/17/18 11:30 05/18/18 09:13 Theragran M PO 1 tab DAILYWM [facility] Administration Nystatin 0 applic 05/15/18 09:00 05/18/18 09:14 Nystop TOP Not Given BID [facility] [id number]-[id number] Ethyl Esters 1 gm 05/16/18 09:00 05/18/18 09:07 Lovaza PO 1 gm DAILY [facility] Administration Ondansetron HCl 4 mg 05/16/18 08:08 05/18/18 10:38 Zofran Inj IVP 4 mg Q4HR PRN Administration Nausea / Vomiting Pantoprazole Sodium 40 mg 05/16/18 09:00 05/18/18 09:02 Protonix IVP 40 mg BID [facility] Administration Polyethylene Glycol 17 gm 05/15/18 09:00 05/18/18 09:07 Miralax PO Not Given DAILY [facility] Saccharomyces Boulardii 250 mg 05/16/18 13:00 05/18/18 17:00 Florastor PO 250 mg BIDWM [facility] Administration Sodium Chloride 10 ml 05/15/18 00:16 05/18/18 00:42 Normal Saline Flush 0.9% IVP 10 ml PRN PRN Administration NEEDED PER PROVIDER ORDERS Sodium Chloride 10 ml 05/15/18 01:00 05/18/18 17:00 Normal Saline Flush 0.9% IVP 10 ml 0100,0900,1700 DENILSON Administration - Lab Result Lab results reviewed: Yes Fish Bone Diagrams: 05/18/18 04:30 05/18/18 04:30 - Diagnostic Imaging Results Diagnostic Imaging Results: Final report reviewed Diagnostic Imaging Results Comments: 2 view abd series this am nl. - Additional Planning Condition/Complexity: Improved (Abd pain, N/V persist, slowly improving, may be chronic condition; no evidence of bowel obstruction or intraabd neoplasm or inflammatory process at present. Plan EGD tomorrow if INR satisfactory to reassess erosive esophagitis and further evaluate UGI sx.) Subjective - Subjective Patient Reports: Feeling Better (noted abd pain, N/V this am but now resolved, tolerated evening meal without difficulty.) Objective Vital Signs: Vital Signs - 24 hr 05/17/18 05/17/18 05/17/18 18:55 19:40 21:58 Temperature 36.8 C Heart Rate 88 Heart Rate [ 100 Brachial] Respiratory 18 18 Rate Blood Pressure 153/81 H Blood Pressure [Right Ankle] Blood Pressure 153/81 H [Right Brachial artery] O2 Saturation 92 05/18/18 05/18/18 05/18/18 00:25 04:15 09:07 Temperature 37.0 C 37.0 C Heart Rate Heart Rate [ 75 80 Brachial] Respiratory 16 16 Rate Blood Pressure 143/74 H Blood Pressure [Right Ankle] Blood Pressure 122/66 131/48 H [Right Brachial artery] O2 Saturation 93 93 05/18/18 05/18/18 05/18/18 09:27 14:45 15:30 Temperature 36.8 C 36.8 C 36.3 C L Heart Rate Heart Rate [ 80 66 81 Brachial] Respiratory 20 18 20 Rate Blood Pressure Blood Pressure 149/77 H 95/58 L [Right Ankle] Blood Pressure 143/74 H [Right Brachial artery] O2 Saturation 94 95 94 05/18/18 15:48 Temperature Heart Rate Heart Rate [ Brachial] Respiratory Rate Blood Pressure Blood Pressure [Right Ankle] Blood Pressure 135/67 H [Right Brachial artery] O2 Saturation Oxygen O2 Source Room air I&O (Last 24 Hrs): Intake and Output Totals x24h 05/16/18 05/17/18 05/18/18 23:59 23:59 23:59 Intake Total 1662.75 3843.25 500 Output Total 450 1850 1600 Balance 1212.75 1993.25 -1100 General: Alert, Cooperative, No acute distress Abdomen: Normal bowel sounds, Soft, No tenderness, No hepatospenomegaly, No masses - Results Results: Laboratory Results WBC 5.4 x10^3/uL (4.8-10.8) 05/18/18 04:30 RBC 3.62 10^6/uL (4.20-5.40) L 05/18/18 04:30 Hgb 10.5 g/dL (12.0-16.0) L 05/18/18 04:30 Hct 32.3 % (37.0-47.0) L 05/18/18 04:30 MCV 89.3 fL (81.0-99.0) 05/18/18 04:30 MCH 29.0 pg (27.0-31.0) 05/18/18 04:30 MCHC 32.5 g/dL (32.0-36.0) 05/18/18 04:30 RDW 20.3 % (12.0-15.0) H 05/18/18 04:30 Plt Count 224 10^3/uL (130-450) 05/18/18 04:30 MPV 9.0 fL (7.9-10.8) 05/18/18 04:30 Reticulocyte % (Auto) 0.83 % (0.5-2.3) 05/16/18 06:11 Neut # (Auto) 4.0 10^3/uL (1.5-6.6) 05/14/18 20:49 Lymph # (Auto) 2.1 10^3/uL (1.5-3.5) 05/14/18 20:49 [place] # (Auto) 0.6 10^3/uL (0.0-1.0) 05/14/18 20:49 Eos # (Auto) 0.0 10^3/uL (0.0-0.7) 05/14/18 20:49 Baso # (Auto) 0.0 10^3/uL (0.0-0.1) 05/14/18 20:49 Absolute Nucleated RBC 0.00 x10^3/uL 05/14/18 20:49 Nucleated RBC % 0.0 /100WBC 05/14/18 20:49 Manual Slide Review Indicated 05/14/18 20:49 Platelet Estimate NORMAL (130-450,000) (NORMAL) 05/14/18 20:49 Platelet Morphology NORMAL APPEARANCE (NORMAL) 05/14/18 20:49 RBC Morph Micro Appear 2+ ANISOCYTOSIS (NORMAL) 1+ HYPOCHROMASIA (NORMAL) 2 + POIKILOCYTOSIS (NORMAL) 05/14/18 20:49 RBC Morph Micro Appear 2+ ANISOCYTOSIS (NORMAL) 1+ HYPOCHROMASIA (NORMAL) 2 + POIKILOCYTOSIS (NORMAL) 05/14/18 20:49 RBC Morph Micro Appear 2+ ANISOCYTOSIS (NORMAL) 1+ HYPOCHROMASIA (NORMAL) 2 + POIKILOCYTOSIS (NORMAL) 05/14/18 20:49 Absolute Retic 0.028 10^6/uL (0.020-0.110) 05/16/18 06:11 PT 45.9 secs (9.9-12.6) H 05/18/18 04:30 INR 4.3 (0.8-1.2) H 05/18/18 04:30 D-Dimer < 200.0 ng/mL (200.0-255.0) L 05/15/18 07:55 Sodium 139 mmol/L (135-145) 05/18/18 04:30 Potassium 4.0 mmol/L (3.5-5.0) 05/18/18 04:30 Chloride 103 mmol/L (101-111) 05/18/18 04:30 Carbon Dioxide 31 mmol/L (21-32) 05/18/18 04:30 Anion Gap 5.0 (6-13) L 05/18/18 04:30 BUN < 5 mg/dL (6-20) L 05/18/18 04:30 Creatinine 0.6 mg/dL (0.4-1.0) 05/18/18 04:30 Estimated GFR (MDRD) 96 (>89) 05/18/18 04:30 Glucose 87 mg/dL (70-100) 05/18/18 04:30 Lactic Acid 1.1 mmol/L (0.5-2.2) 05/18/18 08:29 Calcium 8.2 mg/dL (8.5-10.3) L 05/18/18 04:30 Iron 52 ug/dL (28-170) 05/16/18 06:11 TIBC 130 ug/dL (250-450) L 05/16/18 06:11 % Saturation 40 % (20-50) 05/16/18 06:11 Transferrin 93 mg/dL (192-382) L 05/16/18 06:11 Ferritin 200.3 ng/mL (11.0-306.8) 05/16/18 06:11 Total Bilirubin 1.0 mg/dL (0.2-1.0) 05/14/18 20:49 AST 12 IU/L (10-42) 05/14/18 20:49 ALT < 10 IU/L (10-60) L 05/14/18 20:49 Alkaline Phosphatase 94 IU/L (42-121) 05/14/18 20:49 Lactate Dehydrogenase 137 IU/L (91-225) 05/17/18 04:25 Troponin I < 0.04 ng/mL (<0.49) 05/15/18 07:55 B-Natriuretic Peptide 96 pg/mL (5-100) 05/14/18 20:49 Total Protein 6.1 g/dL (6.7-8.2) L 05/14/18 20:49 Albumin 2.6 g/dL (3.2-5.5) L 05/14/18 20:49 Globulin 3.5 g/dL (2.1-4.2) 05/14/18 20:49 Albumin/Globulin Ratio 0.7 (1.0-2.2) L 05/14/18 20:49 Lipase 27 U/L (22-51) 05/14/18 20:49 Vitamin B12 243 pg/mL (180-914) 05/16/18 06:11 Urine Color YELLOW 05/16/18 10:50 Urine Clarity CLEAR (CLEAR) 05/16/18 10:50 Urine pH 6.0 PH (5.0-7.5) 05/16/18 10:50 Ur Specific [place] 1.010 (1.002-1.030) 05/16/18 10:50 Urine Protein NEGATIVE mg/dL (NEGATIVE) 05/16/18 10:50 Urine Glucose (UA) NEGATIVE mg/dL (NEGATIVE) 05/16/18 10:50 Urine Ketones NEGATIVE mg/dL (NEGATIVE) 05/16/18 10:50 Urine Occult Blood NEGATIVE (NEGATIVE) 05/16/18 10:50 Urine Nitrite NEGATIVE (NEGATIVE) 05/16/18 10:50 Urine Bilirubin NEGATIVE (NEGATIVE) 05/16/18 10:50 Urine Urobilinogen 0.2 (NORMAL) E.U./dL (NORMAL) 05/16/18 10:50 Ur Leukocyte Esterase NEGATIVE (NEGATIVE) 05/16/18 10:50 Urine RBC None Seen /HPF (0-5) 05/16/18 10:50 Urine WBC 0-3 /HPF (0-5) 05/16/18 10:50 Ur Squamous Epith Cells FEW Squamous (<= Few) 05/16/18 10:50 Urine Bacteria Rare /HPF (None Seen) 05/16/18 10:50 Ur Microscopic Review NOT INDICATED 05/14/18 21:30 Urine Culture Comments NOT INDICATED 05/16/18 10:50 - Procedures Procedures: Procedures LOCAL EXCIS BREAST LES (04/01/15) ABX Reporting Has patient been on IV antibiotics over the past 48 hours?: No
[2018-05-18] MEDS: ATORVASTATIN 40 MG TABLET PO SCH (20:42)
[2018-05-19] MEDS: SODIUM CHLORIDE FLUSH 0.9% 10 ML SYRINGE IVP SCH ×2 (01:57→09:06)
[2018-05-19 05:20] LABS: BASOPHILS % (AUTO) 0.3 %; EOSINOPHILS # (AUTO) 0.2 10^3/uL (0.0-0.7); EOSINOPHILS % (AUTO) 2.8 %; HGB - HEMOGLOBIN 11.1 g/dL (12.0-16.0); LYMPHOCYTES # (AUTO) 2.7 10^3/uL (1.5-3.5); LYMPHOCYTES % (AUTO) 39.4 %; MEAN CORPUSCULAR HEMOGLOBIN 28.9 pg (27.0-31.0); MEAN CORPUSCULAR HGB CONC 32.5 g/dL (32.0-36.0); MEAN CORPUSCULAR VOLUME 88.8 fL (81.0-99.0); MEAN PLATELET VOLUME 9.2 fL (7.9-10.8); MONOCYTES # (AUTO) 0.6 10^3/uL (0.0-1.0); MONOCYTES % (AUTO) 9.1 %; NEUTROPHILS # (AUTO) 3.4 10^3/uL (1.5-6.6); NEUTROPHILS % (AUTO) 48.4 %; PLT - PLATELET COUNT 251 10^3/uL (130-450); RED BLOOD COUNT 3.84 10^6/uL (4.20-5.40); RED CELL DISTRIBUTION WIDTH 20.6 % (12.0-15.0); WHITE BLOOD COUNT 6.9 x10^3/uL (4.8-10.8)
[2018-05-19 05:25] LABS: ALBUMIN 2.1 g/dL (3.2-5.5); ALBUMIN/GLOBULIN RATIO 0.7 (1.0-2.2); ALKALINE PHOSPHATASE 90 IU/L (42-121); ALT ALANINE AMINOTRANSFERASE 11 IU/L (10-60); AST ASPARTATE AMINOTRANSFERASE 18 IU/L (10-42); BILIRUBIN,TOTAL 0.9 mg/dL (0.2-1.0); BUN - BLOOD UREA NITROGEN < 5 mg/dL (6-20); CALCIUM 8.2 mg/dL (8.5-10.3); CARBON DIOXIDE - CO2 29 mmol/L (21-32); CHLORIDE 101 mmol/L (101-111); CREATININE 0.6 mg/dL (0.4-1.0); GFR - MDRD 96 (>89); GLUCOSE 94 mg/dL (70-100); MAGNESIUM 1.1 mg/dL (1.7-2.8); SODIUM 137 mmol/L (135-145)
[2018-05-19] MEDS ORDERED: ONDANSETRON ODT 4 MG TABLET PO PRN (08:03)
[2018-05-19] MEDS ORDERED: HYDROcod/ACET 5/325 Prepack 4 PO PRN (08:03)
[2018-05-19] MEDS ORDERED: LIDO GARGLE 30 ML BOTTLE ONE (08:41)
[2018-05-19] MEDS ORDERED: LIDO GARGLE 30 ML BOTTLE PO ONE (08:46)
[2018-05-19] MEDS: MICONAZOLE CREAM (EXTRA-THICK) 92 GM TUBE TOP PRN (09:05)
[2018-05-19] MEDS: NYSTATIN POWDER 15 GM TOP SCH (09:05)
[2018-05-19] MEDS: ONDANSETRON 4 MG/2 ML VIAL IVP PRN (09:06)
[2018-05-19] MEDS: MICONAZOLE CREAM (EXTRA-THICK) 92 GM TUBE TOP SCH (09:08)
--- NOTE | 2018-05-19 09:25 | ANESTHESIA ---
Pre-Anesthesia VS, & Labs - Diagnosis Diagnosis 1. N/V/abd pain/diarrhea, resolving; likely viral syndrome/gastroenteritis with associated volume depletion. 2. GERD with severe erosive esophagitis, clinically improve with PPI therapy. 3. hypoprothrombinemia of unclear etiology, likely due to drug interaction, stress of associated GI illness, etc - Procedure EGD Vital Signs: Temp Pulse Resp BP Pulse Ox 36.7 C 79 18 141/68 H 94 05/19/18 08:11 05/19/18 08:11 05/19/18 08:11 05/19/18 08:11 05/19/18 08:11 - NPO >8 hours - Is Patient ?: Not Applicable - Lab Results Lab results reviewed: Yes Fish Bones: 05/19/18 04:35 05/19/18 04:35 Home Medications and Allergies Home Medications: Ambulatory Orders Medication Instructions Recorded Confirmed Albuterol Sulfate [Proair Hfa 2 puffs INH Q6H PRN 03/31/15 05/15/18 Inhaler] Loratadine [Allergy Relief] 10 mg PO DAILY 03/31/15 05/15/18 Metoprolol Tartrate [Lopressor] 50 mg PO BID 03/31/15 05/15/18 [place]-3 Fatty Acids/Fish Oil 1 gm PO DAILY 03/31/15 05/15/18 [[place] 3 1,000 mg Softgel] Atorvastatin Calcium 80 mg PO QPM 05/15/18 05/15/18 Hydrocodone/Acetaminophen 1 tab PO BID PRN 05/15/18 05/15/18 [Hydrocodone-Acetamin 5-325 mg] Nitroglycerin [Nitroglycerin] 0.4 mg SL Q5MIN PRN MDD 3 DOSES 05/15/18 05/15/18 Ondansetron Odt [Zofran Odt] 4 mg PO Q6HR PRN 05/15/18 05/15/18 Pantoprazole Sodium 40 mg PO DAILY 05/15/18 05/15/18 Warfarin Sodium [Warfarin Sodium] 1.5 mg PO DAILY 05/15/18 Allergies/Adverse Reactions: Allergies Allergy/AdvReac Type Severity Reaction Status Date / Time furosemide Allergy Intermediate Rash Verified 05/14/18 20:25 lisinopril AdvReac Mild Cough Verified 05/14/18 20:25 Anes History & Medical History - Anesthetic History Anesthesia Complications: reports: No previous complications - Medical History Cardiovascular: reports: Hypertension, High cholesterol, Coronary artery disease , [place] Pulmonary: reports: Asthma, Pneumonia, Other Gastrointestinal: reports: GERD, Colon polyps, Chronic diarrhea, Other Urinary: reports: Kidney stones, Other 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, Alzhiemer's, CVA Musculoskeletal: reports: Osteoarthritis, Chronic back pain Endocrine/Autoimmune: reports: None Blood Disorders: reports: None Skin: reports: None Smoking Status: Never smoker - Surgical History General: Cholecystectomy, Colonoscopy Cardiothoracic: CABG, Coronary stent Gynecologic: 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, Other Orthopedic: Arthroscopic surgery Exam Dental: WNL Mallampati classification: III Respiratory: Lungs clear Cardiovascular: Regular rate, Normal S1, Normal S2 Mental/Cognitive Status: Alert/Oriented X3 Plan Anesthesia Type: MAC Consent for Procedure(s) Verified and Reviewed: Yes Code Status: Attempt Resuscitation ASA classification: 3-Severe systemic disease Is this case an emergency?: Yes
[2018-05-19] MEDS ORDERED: LACTATED RINGERS 1,000 ML IV ONE (09:30)
--- NOTE | 2018-05-19 10:00 | OPERATIVE REPORT ---
Operative Report - General Admit Date: 05/16/18 Procedure Date: 05/19/18 Planned Procedure: EGD Pre-Op Diagnosis: Epigastric abdominal pain; N/V; h/o erosive esophagitis/ gastritis Procedure Performed: EGD Post Op Diagnosis: normal EGD - Procedure Note Primary Surgeon: Rocio Gambino MD Anesthesia Provider: Chantal Franklin Anesthesia Technique: MAC Pathology: N/A Complications: NONE - Other Other Information/Narrative: After informed consent was obtained, the pt was taken to the endoscopy room and a time-out was done. IV sedation was initiated and she was placed in the lateral decubitus position with the head of the bed elevated 30 degrees. A bite block was placed. Once she was adequately sedated, the scope was inserted and advanced into the esophagus and into the stomach. The stomach was insufflated. It was noted to be normal in appearance. The pylorus was also normal. The pylorus was entered and the scope advanced into the first and second parts of the duodenum which appeared normal. The scope was withdrawn back into the stomach and no abnormalities were seen. The scope was retroflexed and the EG junction was also noted to be normal. The scope was withdrawn and again the stomach and esophagus showed no abnormalities. The pt tolerated the procedure well and was sent to the PACU in stable condition.
[2018-05-19] MEDS: CALCIUM CARBONATE CHEW 500 MG TABLET PO SCH (10:46)
[2018-05-19] MEDS: POLYETHYLENE GLYCOL 3350 17 GM PACKET PO SCH (10:47)
[2018-05-19] MEDS: SACCHAROMYCES BOULARDII 250 MG CAPSULE PO SCH ×2 (11:06→16:26)
[2018-05-19] MEDS: LORATADINE 10 MG TABLET PO SCH (11:07)
[2018-05-19] MEDS: METOPROLOL TARTRATE 50 MG TABLET PO SCH (11:07)
[2018-05-19] MEDS: LOSARTAN 50 MG TABLET PO SCH (11:07)
[2018-05-19] MEDS: FUROSEMIDE 20 MG TABLET PO SCH (11:07)
[2018-05-19] MEDS: hydroCHLOROthiazide 25 MG TABLET PO SCH (11:07)
[2018-05-19] MEDS: CALCIUM CITRATE 250 MG TABLET PO SCH (11:07)
[2018-05-19] MEDS: OMEGA-3 ACID ETHYL ESTERS 1 GM CAPSULE PO SCH (11:07)
[2018-05-19] MEDS ORDERED: MAGNESIUM OXIDE 400 MG TABLET PO ONE ×2 (14:23→17:00)
--- NOTE | 2018-05-19 15:50 | Discharge Plan ---
Discharge Plan Disposition: Home, Self Care Condition: Good Diet: Regular Activity Restrictions: Activity as Tolerated Shower Restrictions: No Driving Restrictions: Yes Weight Bearing: Full Weight Additional Instructions or Follow Up instructions: You were admitted with nausea, vomiting and diarrhea. Your electrolytes were replaced, and you underwent an EGD that was normal, preliminary reports. You were watched closely for post-procedure side effects. You were given a lunch time meal, and tolerated this well. We recommend no new medications, and continue taking all of your previous home medications. You can resume your blood thinner, coumadin. This morning your INR was 3.0. Please see your PCP within one week as a follow up to this hospital stay. No Smoking: If you smoke, Please STOP! Call for help. Follow-up with: Ariela Mhoan DO [Primary Care Provider] -
--- NOTE | 2018-05-19 15:58 | DISCHARGE SUMMARY ---
"Discharge Summary Admit Date: 05/15/18 Discharge Date: 05/19/18 Discharging Provider: JULIETTE Noonan Primary Care Provider: Ariela Mohan Code Status: Attempt Resuscitation Condition at Discharge: Good Discharge Disposition: 01 Home, Self Care - DIAGNOSES Admission Diagnoses: Hypokalemia (E87.6) Unspecified abdominal pain (R10.9) Essential (primary) hypertension (I10) Atherosclerotic heart disease of [place] coronary artery without angina pectoris (I25.10) Hyperlipidemia, unspecified (E78.5) Chronic obstructive pulmonary disease, unspecified (J44.9) Gastro-esophageal reflux disease without esophagitis (K21.9) Personal history of malignant neoplasm of breast (Z85.3) Morbid (severe) obesity due to excess calories (E66.01) Discharge Diagnoses with Status of Each Condition: Hypokalemia (E87.6) resolved. Abdominal pain (R10.9) chronic, stable. Hypertension (I10) chronic, stable. Coronary artery disease (I25.10) chronic, stable. Hyperlipidemia (E78.5) chronic, stable. COPD (chronic obstructive pulmonary disease) (J44.9) chronic, stable. Gastroesophageal reflux disease (K21.9) chronic, stable. History of left breast cancer (Z85.3) chronic, stable. Nausea & vomiting (R11.2) chronic, normal EGD, stable. - HPI History of Present Illness: Mrs. Pina Middleton is an 82-year-old female who lives with her son and has a past medical history of coronary artery disease, status post coronary artery bypass graft 8 or 9 years ago, left breast cancer, morbid obesity, uterine cancer, hypertension, hyperlipidemia, COPD, osteoarthritis, gastroesophageal reflux disease and recurrent, chronic yeast infections. Over the past few days the patient has been having increasing abdominal discomfort with nausea and vomiting, with reports of diarrhea 2 days ago. Her son brought her to the emergency department where she was examined and found to be in mild distress. Initial labs showed significant hypokalemia with a potassium level of 2.5, a mildly elevated anion gap of 14. She is also found to be malnourished with total protein of 6.1 and albumin of 2.6. Initial troponin was negative. A BNP was done which was within normal limits, at 96. A UA was collected and was negative for a urinary tract infection. An abdomen and pelvis CT was positive for mild diverticulosis without diverticulitis or other acute bowel abnormalities, showed evidence of a previous cholecystectomy and hysterectomy in the past. She has been accepted to be admitted to observation to further treat significant hypokalemia at 2.5, give IVFs to treat her suspected dehydrated state, evaluate the etiology of her profound weakness, monitor on telemetry, and continue with the serial troponins and treat her co-morbidities. - CONSULTS | PROCEDURES Consultations: General surgery-EGD - HOSPITAL COURSE Hospital Course: Although the patient was originally intended for observation status, due to her increased INR and the waiting period required, she was changed to an inpatient status so that she would undergo appropriate testing for her presenting symptoms of nausea. Upon discharge she was noted to have her usual chronic, daily nausea, but was no longer vomiting and tolerated a few meals after her EGD procedure that was completed by our GI (general surgery team). Our hospitalist staff received a call from the patient's PCP, Dr. Edwards, and reports that the patient has had ongoing nausea, vomiting and mild abdominal pain for quite long period time. A fax of the the patient's last SNF discharge was obtained which clarified the prior testing at [facility], which found a grade D erosive esophagitis, and recommended a follow up EGD to monitor healing condition-and this was not completed. Our GI team was consulted, and as stated earlier, the patient underwent an EGD, which found no abnormalities, and no clear explanation for her chronic nausea. Disposition: The patient was discharged home late in the day after her EGD to monitor and was considered to be medically stable. She was transported via private car home with her son and her presenting condition was thought to be at baseline. She did not require oxygen and was instructed to see her PCP within one week of this stay. I personally spoke to her son over the phone to inform him of the discharge plans. - ALLERGIES Allergies/Adverse Reactions: Allergies Allergy/AdvReac Type Severity Reaction Status Date / Time furosemide Allergy Intermediate Rash Verified 05/14/18 20:25 lisinopril AdvReac Mild Cough Verified 05/14/18 20:25 - MEDICATIONS Home Medications: Ambulatory Orders Medication Instructions Recorded Confirmed Albuterol Sulfate [Proair Hfa 2 puffs INH Q6H PRN 03/31/15 05/15/18 Inhaler] Loratadine [Allergy Relief] 10 mg PO DAILY 03/31/15 05/15/18 Metoprolol Tartrate [Lopressor] 50 mg PO BID 03/31/15 05/15/18 [place]-3 Fatty Acids/Fish Oil 1 gm PO DAILY 03/31/15 05/15/18 [[place] 3 1,000 mg Softgel] Atorvastatin Calcium 80 mg PO QPM 05/15/18 05/15/18 Hydrocodone/Acetaminophen 1 tab PO BID PRN 05/15/18 05/15/18 [Hydrocodone-Acetamin 5-325 mg] Nitroglycerin 0.4 mg SL Q5MIN PRN MDD 3 DOSES 05/15/18 05/15/18 Ondansetron Odt [Zofran Odt] 4 mg PO Q6HR PRN 05/15/18 05/15/18 Pantoprazole Sodium 40 mg PO DAILY 05/15/18 05/15/18 Warfarin Sodium 1.5 mg PO DAILY 05/15/18 - PHYSICAL EXAM AT DISCHARGE General Appearance: positive: No acute distress, Alert Eyes Bilateral: positive: Normal inspection, PERRL ENT: positive: ENT inspection nml, Pharynx nml, No signs of dehydration Neck: positive: Nml inspection, Thyroid nml, No JVD, Trachea midline Respiratory: positive: Chest non-tender, No respiratory distress, Breath sounds nml Cardiovascular: positive: Regular rate & rhythm, No gallop, Systolic murmur, Decreased pulse(s) Peripheral Pulses: positive: 2+ Abdomen: positive: Non-tender, Nml bowel sounds, No distention Back: positive: Nml inspection Skin: positive: No rash, Warm, Dry Extremities: positive: Non-tender, Full ROM, Pedal edema (chronic, BLE) Neurologic/Psychiatric: positive: CN's nml (2-12), Weakness, Sensory loss, Slurred/abnml speech (chronic, sluggish speech related to dementia.), Depressed mood/affect Reflexes: Bicep (R): 2+, Bicep (L): 2+ - LABS Result Diagrams: 05/19/18 04:35 05/19/18 04:35 - DIAGNOSTIC IMAGING Diagnostic Imaging Results: Final report reviewed Diagnostic Imaging Results Comments: EXAM: CT ABDOMEN AND PELVIS EXAM DATE: 05/14/2018 10:59 PM. IMPRESSION: 1. Mild diverticulosis without diverticulitis or other acute bowel abnormality. 2. Cholecystectomy and hysterectomy noted. EXAM: CHEST RADIOGRAPHY EXAM DATE: 05/16/2018 09:12 AM. IMPRESSION: Clear lungs. No acute findings. EXAM: CT HEAD EXAM DATE: 05/16/2018 10:36 AM. Other: No acute findings since 01/18/2018. IMPRESSION: Negative for an acute intracranial process or significant change compared with 01/18/2018. Chronic changes are present. EXAM: CT CHEST EXAM DATE: 05/17/2018 10:01 AM. IMPRESSION: Bilateral pleural effusions. Otherwise negative chest CT status post CABG EXAM: ABDOMEN RADIOGRAPHY EXAM DATE: 05/18/2018 10:02 AM. IMPRESSION: Nonspecific 2-view abdomen x-ray. ECHOCARDIOGRAM: 05/15/18 Final results read by Rhoda Mckinney MD 1. Overall LV systolic function is normal with an EF of 65-70%. 2. The RV is normal in size and function. 3. Mild tricuspid regurg. 4. Mildly abnormal right heart pressures. 5. The RVSP at rest is 48 mmHg. - FOLLOW UP Follow Up: Disposition: Home, Self Care Condition: Good Diet: Regular Activity Restrictions: Activity as Tolerated Shower Restrictions: No Driving Restrictions: Yes Weight Bearing: Full Weight Additional Instructions or Follow Up instructions: You were admitted with nausea, vomiting and diarrhea. Your electrolytes were replaced, and you underwent an EGD that was normal, preliminary reports. You were watched closely for post-procedure side effects. You were given a lunch time meal, and tolerated this well. We recommend no new medications, and continue taking all of your previous home medications. You can resume your blood thinner, coumadin. This morning your INR was 3.0. Please see your PCP within one week as a follow up to this hospital stay. - TIME SPENT Time Spent in Discharge (Minutes): 65"
[2018-05-19 16:08] VITALS: BP 144/69
[2018-05-19] MEDS: HYDROcod/ACETAM 5/325 MG TABLET PO PRN (16:34)
[2018-05-20] MEDS ORDERED: PANTOPRAZOLE 40 MG TABLET PO SCH (07:00)
== END 2018-05-19 17:00 | disposition home or self-care (01) | DRG 392 ==
LOC: EDUNIT# → ED 20:15 → MS2 05-15 00:16 → OBSVTOIN 05-16 10:06
PROVIDERS: ADMIT Hospitalist; ATTEND Nurse Practitioner
PROC: 0DJ08ZZ Inspection of Upper Intestinal Tract, Via Natural or Artificial Opening Endoscopic (ICD-10-PCS; principal; 2018-05-19 09:40)
DX: R11.2 Nausea with vomiting, unspecified (principal); J90 Pleural effusion, not elsewhere classified; E46 Unspecified protein-calorie malnutrition; E87.6 Hypokalemia; E86.0 Dehydration; R10.9 Unspecified abdominal pain; I25.10 Atherosclerotic heart disease of native coronary artery without angina pectoris; Z95.1 Presence of aortocoronary bypass graft; E66.01 Morbid (severe) obesity due to excess calories; Z68.33 Body mass index [BMI] 33.0-33.9, adult; I10 Essential (primary) hypertension; E78.5 Hyperlipidemia, unspecified; J44.9 Chronic obstructive pulmonary disease, unspecified; K21.9 Gastro-esophageal reflux disease without esophagitis; B37.2 Candidiasis of skin and nail; L22 Diaper dermatitis; K57.90 Diverticulosis of intestine, part unspecified, without perforation or abscess without bleeding; Z79.01 Long term (current) use of anticoagulants; R13.10 Dysphagia, unspecified; Z85.3 Personal history of malignant neoplasm of breast
CPT/HCPCS: 36415; 70450; 71045; 71260; 74019; 74177; 80048; 80053; 81001; 81003; 82607; 82728; 83540; 83605; 83615; 83690; 83735; 83880; 84132; 84466; 84484; 85025; 85027; 85044; 85379; 85610; 87040; 87086; 93005; 93306; 94640; 96361; 96365; 96366; 96367; 96375; 96376; 99284

== ENCOUNTER 2018-06-06 10:14 | Outpatient (CLI) | payer MEDICARE, OTHER | END 2018-06-06 10:15 | disposition short-term general hospital (02) | LOC: EMS 10:14 | PROVIDERS: ATTEND Surgery | DX: R11.2 Nausea with vomiting, unspecified (principal); R10.817 Generalized abdominal tenderness | CPT/HCPCS: A0425; A0429 ==

== ENCOUNTER 2018-07-13 15:47 | Outpatient (CLI) | payer MEDICARE, OTHER | END 2018-07-13 15:48 | disposition short-term general hospital (02) | LOC: EMS 15:47 | PROVIDERS: ATTEND Surgery | DX: R55 Syncope and collapse (principal) | CPT/HCPCS: A0425; A0427; A0888 ==

== ENCOUNTER 2019-09-23 12:33 | Outpatient (CLI) | payer MEDICARE, OTHER | END 2019-09-23 12:34 | disposition short-term general hospital (02) | LOC: EMS 12:33 | PROVIDERS: ATTEND Surgery | DX: R11.2 Nausea with vomiting, unspecified (principal); R19.7 Diarrhea, unspecified | CPT/HCPCS: A0425; A0429; A0888 ==

== ENCOUNTER 2020-07-11 18:51 | Outpatient (CLI) | payer MEDICARE, OTHER | END 2020-07-11 18:52 | disposition critical access hospital (66) | LOC: EMS 18:51 | PROVIDERS: ATTEND Surgery | DX: R41.82 Altered mental status, unspecified (principal); R30.0 Dysuria | CPT/HCPCS: A0425; A0427 ==

== ENCOUNTER 2020-07-11 19:09 | Emergency (ER) | payer MEDICARE, OTHER ==
--- NOTE | 2020-07-11 19:21 | ED Physician Documentation ---
PD HPI FOCAL NEURO - Stated complaint Stated Complaint: AMS, AGITATED - Chief complaint Chief Complaint: Neuro - History obtained from History obtained from: Patient, EMS - Additional information Additional information: This is an 84-year-old woman who presents by ambulance for sudden altered mental status. Per the chart she has a history of coronary disease, bypass graft, breast cancer, COPD, GERD. Patient is unable to give any history because of altered mental status, but report from the paramedics suggest that at her baseline mentally seems normal. Her son is not accompanying her on initial evaluation. Acutely became altered and agitated at 6:15 PM tonight. Blood sugar in route was 71. Noted to be in atrial fibrillation in route. 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 EDITOR: 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, Other Cardiovascular: CABG, Coronary stent - Present Medications Home Medications: Ambulatory Orders Medication Instructions Recorded Confirmed Albuterol Sulfate [Proair Hfa 2 puffs INH Q6H PRN 03/31/15 05/15/18 Inhaler] Loratadine [Allergy Relief] 10 mg PO DAILY 03/31/15 05/15/18 Metoprolol Tartrate [Lopressor] 50 mg PO BID 03/31/15 05/15/18 [place]-3 Fatty Acids/Fish Oil 1 gm PO DAILY 03/31/15 05/15/18 [[place] 3 1,000 mg Softgel] Atorvastatin Calcium 80 mg PO QPM 05/15/18 05/15/18 Hydrocodone/Acetaminophen 1 tab PO BID PRN 05/15/18 05/15/18 [Hydrocodone-Acetamin 5-325 mg] Nitroglycerin 0.4 mg SL Q5MIN PRN MDD 3 DOSES 05/15/18 05/15/18 Ondansetron Odt [Zofran Odt] 4 mg PO Q6HR PRN 05/15/18 05/15/18 Pantoprazole Sodium 40 mg PO DAILY 05/15/18 05/15/18 Warfarin Sodium 1.5 mg PO DAILY 05/15/18 - Allergies Allergies/Adverse Reactions: Allergies Allergy/AdvReac Type Severity Reaction Status Date / Time furosemide Allergy Intermediate Rash Verified 05/14/18 20:25 Penicillins Allergy Rash Verified 07/11/20 19:18 lisinopril AdvReac Mild Cough Verified 05/14/18 20:25 - Social History Does the pt smoke?: No Smoking Status: Never smoker Does the pt drink ETOH?: No Does the pt have substance abuse?: No - Immunizations Immunizations are current?: Yes - POLST Patient has POLST: No POLST Status: Full Code PD ED PE NORMAL - Vitals Vital signs reviewed: Yes - General General: Other (Says her name but otherwise just says "help me". She is somewhat agitated. Only follows very simple commands on occasion, usually not) - HEENT HEENT: PERRL, Moist mucous membranes - Cardiac Cardiac: Other (Irregularly irregular) - Respiratory Respiratory: No respiratory distress, Clear bilaterally - Abdomen Abdomen: Non tender - Back Back: No CVA TTP, No spinal TTP - Derm Derm: Normal color, Warm and dry - Extremities Extremities: No edema - Neuro Neuro: Other (Moves all 4 extremities with good strength and withdraws to all 4 by pain. Will not follow commands to check specifics though.) Eye Opening: Spontaneous Motor: Localizes to Pain Verbal: Inappropriate GCS Score: 12 Results - Vitals Vitals: Vital Signs - 24 hr 07/11/20 07/11/20 07/11/20 19:14 19:23 21:17 Temperature 96.6 C H 35.9 C L 36.6 C Heart Rate 101 H 101 H 76 Respiratory 20 20 16 Rate Blood Pressure 169/109 H 169/109 H 109/87 H O2 Saturation 98 98 99 Oxygen O2 Source Room air - EKG (time done) 2005 Rate: Rate (enter#) (82) Rhythm: Atrial fibrillation Leon: Normal QRS: LVH Ischemia: Non specific changes Computer interpretation: Agree with computer - Labs Labs: Laboratory Tests 07/11/20 07/11/20 07/11/20 19:29 19:29 19:29 WBC 5.6 RBC 4.30 Hgb 13.2 Hct 41.1 MCV 95.6 MCH 30.7 MCHC 32.1 RDW 13.3 Plt Count 180 MPV 9.4 Neut # (Auto) 3.1 Lymph # (Auto) 1.8 Frontier # (Auto) 0.6 Eos # (Auto) 0.1 Baso # (Auto) 0.0 Absolute Nucleated RBC 0.00 Nucleated RBC % 0.0 PT 12.4 INR 1.1 Sodium 135 Potassium 3.8 Chloride 99 L Carbon Dioxide 24 Anion Gap 12.0 BUN 13 Creatinine 0.7 Estimated GFR (MDRD) 80 L Glucose 83 Calcium 9.4 Total Bilirubin 1.5 H AST 17 ALT 11 Alkaline Phosphatase 90 Total Protein 7.5 Albumin 4.1 Globulin 3.4 Albumin/Globulin Ratio 1.2 PD MEDICAL DECISION MAKING - ED course ED course: 84-year-old woman presents with an aphasia, agitation, potentially some left-s ided deficits. Not much else that would cause such an acute changes what was described by the paramedics. The son was not here on initial evaluation nor did he arrived promptly to discuss the case. Went over the CT which showed an old right parietal stroke present on prior imaging but a newer age-indeterminate left cerebellar stroke. No large vessel occlusion on angiography. She did have some carotid stenoses but nothing tight. This was discussed with telestroke neurologist who will examine her as well. I tried calling all 3 numbers on the chart to try to get a hold of the son. 2 were disconnected and one said the customer was simply unavailable without an option for voicemail. Dr. Schneider, telestroke neurologist saw the patient and examined her and felt that she should receive P TPA, felt likely that she was having a right MCA stroke that was acute. TPA was ordered but her blood pressure at that time was 200/149 necessitating blood pressure control prior to TPA administration. Note that we could not consent the patient for TPA and her son was unreachable, the telestroke neurologist felt that we should go ahead and give it regardless. We did discuss that she is right at the 3-hour tammie too and feels like it is currently the standard of care to give TPA under the circumstances. After labetalol we were able to control her blood pressure and TPA bolus was given at 9:35 PM. Arrangements were being made to send her to [facility]. "Beds were tight." Care to Dr. Silva at shift change to give signout to the union representative at [facility] for transfer. - Critical Care Time(min): 45 Time Includes: Direct patient care, Review records, Reassess patient, Document care, Coordinate care, Medical consult Data interpretation: Labs, Pulse ox Procedures excluded from critical care time: EKG Departure - Departure Disposition: 02 Transfer Acute Care Hosp Clinical Impression: Cerebrovascular accident (CVA) Condition: Critical
[2020-07-11] MEDS ORDERED: LORazepam 2 MG/ML VIAL IVP STA (19:28)
[2020-07-11] MEDS ORDERED: IOVERSOL 320 100 ML VIAL IVP ONE ×2 (19:30→20:15)
[2020-07-11 19:33] LABS: BASOPHILS % (AUTO) 0.7 %; EOSINOPHILS # (AUTO) 0.1 10^3/uL (0.0-0.7); EOSINOPHILS % (AUTO) 1.4 %; HGB - HEMOGLOBIN 13.2 g/dL (12.0-16.0); LYMPHOCYTES # (AUTO) 1.8 10^3/uL (1.5-3.5); LYMPHOCYTES % (AUTO) 32.3 %; MEAN CORPUSCULAR HEMOGLOBIN 30.7 pg (27.0-31.0); MEAN CORPUSCULAR HGB CONC 32.1 g/dL (32.0-36.0); MEAN CORPUSCULAR VOLUME 95.6 fL (81.0-99.0); MEAN PLATELET VOLUME 9.4 fL (7.9-10.8); MONOCYTES # (AUTO) 0.6 10^3/uL (0.0-1.0); MONOCYTES % (AUTO) 9.9 %; NEUTROPHILS # (AUTO) 3.1 10^3/uL (1.5-6.6); NEUTROPHILS % (AUTO) 55.5 %; PLT - PLATELET COUNT 180 10^3/uL (130-450); RED CELL DISTRIBUTION WIDTH 13.3 % (12.0-15.0); WHITE BLOOD COUNT 5.6 x10^3/uL (4.8-10.8)
[2020-07-11 19:38] LABS: INR 1.1 (0.8-1.2); PT - PROTHROMBIN TIME 12.4 secs (9.9-12.6)
[2020-07-11 19:44] LABS: ALBUMIN 4.1 g/dL (3.2-5.5); ALBUMIN/GLOBULIN RATIO 1.2 (1.0-2.2); BILIRUBIN,TOTAL 1.5 mg/dL (0.2-1.0); CALCIUM 9.4 mg/dL (8.5-10.3); CREATININE 0.7 mg/dL (0.4-1.0); TOTAL PROTEIN 7.5 g/dL (6.7-8.2)
--- NOTE | 2020-07-11 20:15 | CT Report ---
PROCEDURE: Head W/O Stroke Protocol INDICATIONS: stroke like symptoms TECHNIQUE: Noncontrast 4.5 mm thick angled axial sections acquired from the foramen magnum to the vertex, with c oronal reformats. For radiation dose reduction, the following was used: automated exposure control, adjustment of mA and/or kV according to patient size. COMPARISON: 05/16/2018 FINDINGS: Image quality: Excellent. CSF spaces: Basal cisterns are patent. No extra-axial fluid collections. Ventricles are normal in size and shape. Brain: Old moderate right temporal MCA distribution infarct. Subtle hypodensity, superior right cereb ellum, not previously present. Skull and face: Calvarium and visualized facial bones are intact, without suspicious lesions. Sinuses: Visualized sinuses and mastoids are clear. IMPRESSION: 1. Old moderate right MCA distribution infarct. 2. Small subtle hypodensity, superior right cerebellum, representing a possible infarct of uncertain, not previously present. Above discussed with ABBEY OCHOA at the time of dictation on 07/11/2020 at 2014 hours. This study fulfills neurological imaging criteria for inclusion or exclusion of acute stroke therapie s based on available published neurological imaging guidelines. Reviewed by: Isidro Jeff MD on 07/11/2020 8:13 PM PDT Approved by: Isidro Jeff MD on 07/11/2020 8:13 PM PDT Station ID: [id number]
--- NOTE | 2020-07-11 20:26 | CT Report ---
PROCEDURE: ANGIO NECK W INDICATIONS: stroke like symptoms CONTRAST: IV CONTRAST: Optiray 320 ml: 100 PO CONTRAST: *NO PO CONTRAST TECHNIQUE: After the administration of intravenous contrast, 1.5 mm axial sections acquired from the aortic arch to the [place]. Coronal 3-D maximum intensity projection (MIP) and/or volume rendering ref ormats were then performed. For radiation dose reduction, the following was used: automated exposur e control, adjustment of mA and/or kV according to patient size. COMPARISON: None. FINDINGS: Image quality: Excellent. Carotid system: The great vessels demonstrate a conventional anatomy as they arise from the aortic a [facility]. The origins of the common carotid arteries appear patent. The common carotid arteries demonstr ate normal calibers and courses. There is bilateral calcified atherosclerotic plaque at the bifurcati on regions with less than 50% bilateral internal carotid artery origin stenoses. Posterior circulation: The origins of the vertebral arteries appear patent. The more superior porti ons of the vertebral arteries demonstrate normal course and caliber. They join to form a normal appe aring basilar artery. Soft tissues: Visualized neck soft tissues demonstrate no suspicious abnormalities. The thyroid gla nd is normal in size. Bones: No suspicious bony lesions. Visualized cervical spine appears normally aligned. IMPRESSION: 1. Bilateral less than 50% internal carotid artery origin stenoses. 2. Otherwise unremarkable CTA neck with contrast. Above discussed with ABBEY OCHOA at the time of dictation on 07/11/2020 at 2030 hours. The estimate of stenosis included in the report of the imaging study was calculated using the NASCET method Reviewed by: Isidro Jeff MD on 07/11/2020 8:25 PM PDT Approved by: Isidro Jeff MD on 07/11/2020 8:25 PM PDT Station ID: [id number]
--- NOTE | 2020-07-11 20:31 | CT Report ---
PROCEDURE: ANGIO HEAD W/WO INDICATIONS: stroke like symptoms CONTRAST: IV CONTRAST: Optiray 320 ml: 100 PO CONTRAST: *NO PO CONTRAST TECHNIQUE: Precontrast 4.5 mm thick angled axial sections acquired from the foramen magnum to the vertex. Afte r the administration of intravenous contrast, 1 mm thick sections acquired through the [place] of [place] is. Postcontrast 4.5 mm thick sections then re-acquired from the foramen magnum to the vertex. 3-di mensional dcxmnsp-ltlppwxkc-okilmcztlh (MIP) and/or volume rendering reformats were acquired of the c entral intracranial vasculature. For radiation dose reduction, the following was used: automated ex posure control, adjustment of mA and/or kV according to patient size. COMPARISON: CTA Neck with contrast from the same day. Noncontrast head CT from the same day. FINDINGS: Image quality: Excellent. Anterior circulation: Intracranial internal carotid arteries are normal in size and flow. The flow within the paired anterior cerebral arteries is normal and symmetric. The flow within the middle cer ebral arteries is normal and symmetric. The anterior communicating artery is seen. No aneurysms are seen. Posterior circulation: Visualized portions of the vertebral arteries demonstrate normal caliber, and join to form a normal appearing basilar artery. Flow within the posterior cerebral arteries is norm al and symmetric. No aneurysms are seen. CSF spaces: Ventricles are normal in size and shape. Basal cisterns are patent. No extra-axial flu id collections. Brain: Old moderate right MCA distribution right temporal infarct. Subtle small, right superior cereb ellum, possibly representing infarct of unknown duration. Skull and face: Calvarium and facial bones appear intact, without suspicious lesions. Sinuses: Visualized sinuses and mastoids are clear. IMPRESSION: 1. Old moderate right MCA distribution infarct. 2. Age-indeterminate small focal superior right cerebellar infarct. 3. No evidence of intracranial stenosis, aneurysm, occlusion, or focal filling defect. Above discussed with ABBEY OCHOA at the time of dictation on 07/11/2020 at 2030 hours. Reviewed by: Isidro Jeff MD on 07/11/2020 8:29 PM PDT Approved by: Isidro Jeff MD on 07/11/2020 8:29 PM PDT Station ID: [id number]
[2020-07-11] MEDS ORDERED: ALTEPLASE 100 MG in WATER FOR INJECTION,STERILE 100 ML IV STA (21:10)
[2020-07-11] MEDS ORDERED: LABETALOL 20 MG/4 ML SYRINGE IVP STA (21:10)
[2020-07-11] MEDS ORDERED: LABETALOL 20 MG/4 ML SYRINGE IVP ONE (21:19)
[2020-07-11] MEDS ORDERED: ALTEPLASE IV STA (21:26)
[2020-07-11] MEDS ORDERED: WATER FOR INJECTION STERILE IV STA (21:26)
[2020-07-11] MEDS ORDERED: ALTEPLASE 100 MG VIAL ONE (21:35)
[2020-07-11 23:01] VITALS: BP 140/100
--- NOTE | 2020-07-11 23:02 | ED Physician Documentation ---
ED Addendum - Addendum Addendum: 07/11/20 23:00 The son arrived. I updated him about the tpa and CVA findings on exam. He states pt taken off anticoagulation about 1 yr ago, b/c ""she was fine, didn't need it anymore." Doesn't sound like there was any contraindication to anticoagulation (i.e I asked about bleeding). I asked registration to update his contact info. He did agree to tpa after the fact.
--- NOTE | 2020-07-12 07:50 | ED Physician Documentation ---
ED Addendum - Addendum Addendum: 07/12/20 07:49 Received sign out from Dr. Segundo at end of his shift. Patient received tPA for suspected CVA and sign out is given for pending disposition to [facility]. I heard back from call taker at [facility], Dr. Иван Villarreal, who accepts patient. Patient transferred to [facility] by air.
== END 2020-07-11 23:46 | disposition short-term general hospital (02) ==
LOC: EDUNIT# → ED 19:09
DX: I63.9 Cerebral infarction, unspecified (principal); R47.01 Aphasia; I48.91 Unspecified atrial fibrillation; G30.9 Alzheimer's disease, unspecified; F02.80 Dementia in other diseases classified elsewhere, unspecified severity, without behavioral disturbance, psychotic disturbance, mood disturbance, and anxiety; I10 Essential (primary) hypertension; J44.9 Chronic obstructive pulmonary disease, unspecified; I25.10 Atherosclerotic heart disease of native coronary artery without angina pectoris; Z95.1 Presence of aortocoronary bypass graft; I25.2 Old myocardial infarction; K21.9 Gastro-esophageal reflux disease without esophagitis; Z85.3 Personal history of malignant neoplasm of breast
CPT/HCPCS: 36415; 37195; 70496; 70498; 80053; 85025; 85610; 93005; 96374; 96375; 99291; J2060; J2997; Q9967; 70450; 96365

== ENCOUNTER 2021-03-27 09:30 | Outpatient (CLI) | payer MEDICARE, OTHER | END 2021-03-27 09:31 | disposition short-term general hospital (02) | LOC: EMS 09:30 | DX: R10.9 Unspecified abdominal pain (principal); R11.2 Nausea with vomiting, unspecified; R19.7 Diarrhea, unspecified; R30.0 Dysuria | CPT/HCPCS: A0425; A0429 ==

== ENCOUNTER 2021-06-08 18:48 | Outpatient (CLI) | payer MEDICARE, OTHER | END 2021-06-08 18:49 | disposition short-term general hospital (02) | LOC: EMS 18:48 | DX: R07.9 Chest pain, unspecified (principal); R06.02 Shortness of breath; R30.0 Dysuria | CPT/HCPCS: A0425; A0427 ==

== ENCOUNTER 2021-07-10 15:33 | Outpatient (CLI) | payer MEDICARE, OTHER | END 2021-07-10 15:34 | disposition short-term general hospital (02) | LOC: EMS 15:33 | DX: R06.00 Dyspnea, unspecified (principal); R53.1 Weakness | CPT/HCPCS: A0425; A0429 ==

== ENCOUNTER 2021-10-10 19:15 | Outpatient (CLI) | payer MEDICARE, OTHER | END 2021-10-10 19:16 | disposition critical access hospital (66) | LOC: EMS 19:15 | DX: R10.9 Unspecified abdominal pain (principal); K59.00 Constipation, unspecified | CPT/HCPCS: A0425; A0429 ==

== ENCOUNTER 2021-10-10 19:34 | Emergency (ER) | payer MEDICARE, OTHER ==
--- NOTE | 2021-10-10 19:51 | ED Physician Documentation ---
PD HPI ABD PAIN - Stated complaint Stated Complaint: CONSTIPATION/ABD PX - Chief complaint Chief Complaint: Abd Pain - History obtained from History obtained from: Patient, EMS - Additional information Additional information: 85-year-old woman presents by ambulance for constipation. States she has not had any bowel movement for the last 2 weeks. Nothing specific changed that would have caused her to be constipated. She has a history of coronary disease with CABG, breast cancer, COPD GERD and stroke. She is complaining of both abdominal and rectal pressure. Review of Systems Ten Systems: 10 systems reviewed and negative Constitutional: reports: Reviewed and negative Throat: reports: Reviewed and negative Cardiac: reports: Reviewed and negative PD PAST MEDICAL HISTORY - Past Medical History Cardiovascular: Hypertension, High cholesterol, Coronary artery disease, [place] Respiratory: Asthma, Pneumonia, Other Neuro: None, Alzhiemer's, CVA, Peripheral neuropathy Endocrine/Autoimmune: None GI: GERD, Colon polyps, Chronic diarrhea, Other : Kidney stones, Other HEENT: Other Psych: Anxiety, Other Musculoskeletal: Osteoarthritis, Chronic back pain Derm: None - Past Surgical History Past Surgical History: Yes General: Cholecystectomy, Colonoscopy Ortho: Arthroscopic surgery /[employer]: 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, Other Cardiovascular: CABG, Coronary stent - Present Medications Home Medications: Ambulatory Orders Medication Instructions Recorded Confirmed Albuterol Sulfate [Proair Hfa 2 puffs INH Q6H PRN 03/31/15 05/15/18 Inhaler] Loratadine [Allergy Relief] 10 mg PO DAILY 03/31/15 05/15/18 Metoprolol Tartrate [Lopressor] 50 mg PO BID 03/31/15 05/15/18 [place]-3 Fatty Acids/Fish Oil 1 gm PO DAILY 03/31/15 05/15/18 [[place] 3 1,000 mg Softgel] Atorvastatin Calcium 80 mg PO QPM 05/15/18 05/15/18 Hydrocodone/Acetaminophen 1 tab PO BID PRN 05/15/18 05/15/18 [Hydrocodone-Acetamin 5-325 mg] Nitroglycerin 0.4 mg SL Q5MIN PRN MDD 3 DOSES 05/15/18 05/15/18 Ondansetron Odt [Zofran Odt] 4 mg PO Q6HR PRN 05/15/18 05/15/18 Pantoprazole Sodium 40 mg PO DAILY 05/15/18 05/15/18 Warfarin Sodium 1.5 mg PO DAILY 05/15/18 polyethylene glycoL 3350 [Miralax] 17 gm PO DAILY PRN #1 bottle 10/10/21 - Allergies Allergies/Adverse Reactions: Allergies Allergy/AdvReac Type Severity Reaction Status Date / Time furosemide Allergy Intermediate Rash Verified 10/10/21 19:47 Penicillins Allergy Rash Verified 10/10/21 19:47 lisinopril AdvReac Mild Cough Verified 10/10/21 19:47 - Social History Does the pt smoke?: No Smoking Status: Never smoker Does the pt drink ETOH?: No Does the pt have substance abuse?: No - Immunizations Immunizations are current?: Yes - POLST Patient has POLST: No POLST Status: Full Code PD ED PE NORMAL - Vitals Vital signs reviewed: Yes - General General: Alert and oriented X 3, No acute distress - HEENT HEENT: PERRL, EOMI - Cardiac Cardiac: No murmur, Other (Frequent extrasystoles on the monitor looking like PACs.) - Respiratory Respiratory: No respiratory distress, Clear bilaterally - Abdomen Abdomen: Other (Diminished but not absent bowel sounds without abdominal tenderness.) - Female Female : Other (Mariajose DOAN present and chaperoning, firm fecal impaction which was partially disimpacted and a oil enema was placed during exam.) - Back Back: No CVA TTP, No spinal TTP - Derm Derm: Normal color, Warm and dry - Extremities Extremities: No edema, No calf tenderness / cord - Neuro Neuro: Alert and oriented X 3, Normal speech Results - Vitals Vitals: Vital Signs - 24 hr 10/10/21 10/10/21 10/10/21 19:36 19:46 21:46 Temperature 36.8 C 36.8 C 36.6 C Heart Rate 68 68 66 Respiratory 16 16 16 Rate Blood Pressure 189/75 H 189/75 H 160/80 H O2 Saturation 94 94 96 Oxygen O2 Source Room air PD MEDICAL DECISION MAKING - ED course ED course: 85-year-old woman with a fecal impaction. Initial mineral oil enema was placed during the initial examination. RN reported to me a small bowel movement after but the patient was not feeling much better. This was followed by magnesium citrate and Dulcolax as well as second enema with no output. I personally reexamined the patient and did a soapsuds enema followed by a large volume manual disimpaction with significant stool output. Departure - Departure Disposition: 01 Home, Self Care Clinical Impression: Fecal impaction Condition: Good Record reviewed to determine appropriate education?: Yes Instructions: ED Impaction Fecal Treated Prescriptions: polyethylene glycoL 3350 [Miralax] 17 gm PO DAILY PRN #1 bottle PRN Reason: Constipation Comments: You were seen today with for a fecal impaction which is a large ball of stool stuck in the bottom part of the colon. This was removed with a combination of manual disimpaction and enemas x3. Return for new or worsening symptoms or if not better over the next 24 hours. Follow-up with your doctor next week for reevaluation.
[2021-10-10] MEDS ORDERED: MAGNESIUM CITRATE 296 ML BOTTLE PO STA (21:04)
[2021-10-10 23:33] VITALS: BP 158/82
== END 2021-10-10 23:33 | disposition home or self-care (01) ==
LOC: EDUNIT# → ED 19:34
DX: K56.41 Fecal impaction (principal); I49.1 Atrial premature depolarization; I10 Essential (primary) hypertension; I25.10 Atherosclerotic heart disease of native coronary artery without angina pectoris; Z95.1 Presence of aortocoronary bypass graft
CPT/HCPCS: 99282; 99283; A9270

== ENCOUNTER 2021-12-16 08:00 | Outpatient (CLI) | payer MEDICARE, OTHER | END 2021-12-16 23:59 | LOC: LAB.N 08:00 | PROVIDERS: ATTEND Nurse Practitioner | DX: R30.0 Dysuria (principal) | CPT/HCPCS: 87086 ==

== ENCOUNTER 2022-01-18 08:13 | Outpatient (CLI) | payer MEDICARE, OTHER | END 2022-01-18 08:14 | disposition short-term general hospital (02) | LOC: EMS 08:13 | DX: R06.00 Dyspnea, unspecified (principal); R60.0 Localized edema | CPT/HCPCS: A0425; A0429 ==

== ENCOUNTER 2022-02-03 13:52 | Outpatient (CLI) | payer MEDICARE, OTHER | END 2022-02-03 23:59 | disposition short-term general hospital (02) | LOC: EMS 13:52 | DX: M79.605 Pain in left leg (principal); M79.604 Pain in right leg; M79.89 Other specified soft tissue disorders; R26.2 Difficulty in walking, not elsewhere classified | CPT/HCPCS: A0425; A0429 ==

== ENCOUNTER 2022-02-13 19:57 | Outpatient (CLI) | payer MEDICARE, OTHER | END 2022-02-13 19:58 | disposition short-term general hospital (02) | LOC: EMS 19:57 | DX: R10.30 Lower abdominal pain, unspecified (principal); M25.562 Pain in left knee; Z59.1 Inadequate housing | CPT/HCPCS: A0425; A0429 ==

== ENCOUNTER 2022-02-16 17:44 | Outpatient (CLI) | payer MEDICARE, OTHER | END 2022-02-16 17:45 | disposition short-term general hospital (02) | LOC: EMS 17:44 | DX: R40.0 Somnolence (principal); I48.91 Unspecified atrial fibrillation | CPT/HCPCS: A0425; A0427 ==

== ENCOUNTER 2022-06-02 15:59 | Outpatient (CLI) | payer MEDICARE, OTHER | END 2022-06-02 16:00 | disposition critical access hospital (66) | LOC: EMS 15:59 | DX: H57.13 Ocular pain, bilateral (principal); M79.672 Pain in left foot; M79.671 Pain in right foot; F03.90 Unspecified dementia, unspecified severity, without behavioral disturbance, psychotic disturbance, mood disturbance, and anxiety; Z59.00 Homelessness unspecified ==

== ENCOUNTER 2022-06-02 16:18 | Inpatient (IN) | payer MEDICARE, OTHER, MEDICAID ==
[2022-06-02] MEDS ORDERED: POLYMYXIN B/TRIMETH OPHTH DROPS EACHEYE STA (16:44)
--- OUTSIDE RECORDS SUMMARY | 2022-06-02 16:45 | EXTERNAL MEDICAL SUMMARY RPT | Continuity of Care Document ---
:1935 Author Organization [facility] Address [address] [place] [address] Phone Allergies and Intolerances date description facility type (no date) Mild [facility] (unknown) (no date) furosemide [facility] (unknown) (no date) lisinopril [facility] (unknown) (no date) sertraline [facility] (unknown) Encounters No information. Functional Status No information. Immunizations No information. Medications date description facility +0000 gabapentin 300 MG Oral Capsule [facility] [id number]+0000 Mirtazapine 15 MG Oral Tablet [facility] +0000 Diclofenac Sodium 0.01 MG/MG Topical G el [facility] +0000 Acetaminophen 325 MG / Hydrocodone [facility] Bitartrate 5 MG Oral Tablet +0000 Metoprolol Tartrate 25 MG Oral Tablet [facility] [id number]+0000 Losartan Potassium 50 MG Oral Tablet [facility] Problems No information. Procedures date description facility + Diagnosis [facility] +0000 Finding [facility] +0000 General Physician [facility] Results/Labs test date author facility value unit interpret ation Result panel 1 (unknown) (no (unknown) (unknown) (no value) (units (unk nown) date) unknown) (unknown) (no (unknown) (unknown) [address] [place] [address] (units (unknown) date) unknown) (unknown) (no (unknown) (unknown) [place], [place] (units ( unknown) date) [id number] unknown) (unknown) (no (unknown) (unknown) [facility] (units (unknown) date) unknown) (unknown) (no (unknown) (unknown) Signed (units (unkno wn) date) unknown) (unknown) (no (unknown) (unknown) XRay Report (units (un known) date) unknown) (unknown) (no (unknown) (unknown) (no value) (units (unk nown) date) unknown) (unknown) (no (unknown) (unknown) 03/17/22 (units (unkno wn) date) unknown) (unknown) (no (unknown) (unknown) 1. 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 (unknown) (no (unknown) (unknown) Approved by: (units (u nknown) date) Hemant Marvin, unknown) Peterson on 03/17/2022 at 23:01 (unknown) (no (unknown) (unknown) Bones and chest (units (unknown) date) wall: No unknown) suspicious bony lesions. Overlying soft tissues (unknown) (no (unknown) (unknown) COMPARISON: (units (un known) date) [facility], unknown) CR, XR CHEST 1V, 02/13/2022, 20:46. (unknown) (no (unknown) (unknown) Dictated by: (units (u nknown) date) Hemant Marvin, unknown) Peterson on 03/17/2022 at 23:00 (unknown) (no (unknown) (unknown) FINDINGS: (units (unkn own) date) unknown) (unknown) (no (unknown) (unknown) IMPRESSION: (units (un known) date) unknown) (unknown) (no (unknown) (unknown) INDICATIONS: (units (u nknown) date) chest pain unknown) (unknown) (no (unknown) (unknown) Lungs and (units (unkn own) date) pleura: There is unknown) hyperinflation of the lungs with flattening of the (unknown) (no (unknown) (unknown) [id number] (units (unk nown) date) unknown) (unknown) (no (unknown) (unknown) Mediastinum: (units (u nknown) date) Mediastinal unknown) contours are unchanged. Heart size is mildly (unknown) (no (unknown) (unknown) Surgical changes (units (unknown) date) and devices: unknown) Postsurgical changes are redemonstrated in the (unknown) (no (unknown) (unknown) TECHNIQUE: One (units (unknown) date) view of the chest unknown) was acquired. (unknown) (no (unknown) (unknown) and left axilla. (units (unknown) date) unknown) (unknown) (no (unknown) (unknown) hemidiaphragms (units (unknown) date) compatible with unknown) COPD. No acute consolidation. No pleural (unknown) (no (unknown) (unknown) pneumothorax. (units ( unknown) date) unknown) (unknown) (no (unknown) (unknown) unremarkable. (units ( unknown) date) unknown) (unknown) (no (unknown) (unknown) Accession (units (unkn own) date) Number: unknown) [id number] (unknown) (no (unknown) (unknown) Age/Sex: 86 / F (units (unknown) date) Date of unknown) Service: (unknown) (no (unknown) (unknown) : 1935 (units (unknown) date) Acct:[id number] unknown) (unknown) (no (unknown) (unknown) Loc: ED (units (unkno wn) date) unknown) (unknown) (no (unknown) (unknown) Ordering (units (unkno wn) date) Provider: unknown) Jossue Salcido MD (unknown) (no (unknown) (unknown) PROCEDURE: XR (units (unknown) date) CHEST 1V unknown) (unknown) (no (unknown) (unknown) Patient: (units (unkno wn) date) Jackie Prather unknown) S MR#: (unknown) (no (unknown) (unknown) Procedure: XR (units ( unknown) date) chest 1V unknown) (unknown) (no (unknown) (unknown) appear (units (unkno wn) date) unknown) (unknown) (no (unknown) (unknown) effusions or (units (u nknown) date) unknown) (unknown) (no (unknown) (unknown) enlarged. (units (unkn own) date) unknown) (unknown) (no (unknown) (unknown) mediastinum (units (un known) date) unknown) Result panel 2 (unknown) (no (unknown) (unknown) 2. This likely is (units (unknown) date) contributing unknown) greatly to problem 1. Continue home (unknown) (no (unknown) (unknown) Qty: 1 0RF (units (unk nown) date) unknown) (unknown) (no (unknown) (unknown) (no value) (units (unk nown) date) unknown) (unknown) (no (unknown) (unknown) Date of Service: (units (unknown) date) 03/17/22 unknown) (unknown) (no (unknown) (unknown) (no value) (units (unk nown) date) unknown) (unknown) (no (unknown) (unknown) 'DRUGGED' (units (unkn own) date) unknown) (unknown) (no (unknown) (unknown) 02/16/22 23:18 (units (unknown) date) unknown) (unknown) (no (unknown) (unknown) 02/17/22 01:58 (units (unknown) date) unknown) (unknown) (no (unknown) (unknown) 02/17/22 02:01 (units (unknown) date) unknown) (unknown) (no (unknown) (unknown) 02/17/22 05:08 (units (unknown) date) unknown) (unknown) (no (unknown) (unknown) 03/17/22 20:07 (units (unknown) date) unknown) (unknown) (no (unknown) (unknown) 1 tab PO BID PRN (units (unknown) date) (Reason: pain) Qty: unknown) 20 0RF (unknown) (no (unknown) (unknown) 1 tab under tongue (units (unknown) date) every five minutes unknown) up to three times, call 911 if no (unknown) (no (unknown) (unknown) 1. Physical (units (un known) date) debility/deconditio unknown) gelacio (unknown) (no (unknown) (unknown) 12.5 mg PO DAILY (units (unknown) date) Qty: 45 0RF unknown) (unknown) (no (unknown) (unknown) 2 g topical QID (units (unknown) date) Qty: 100 0RF unknown) (unknown) (no (unknown) (unknown) 3. Atrial (units (unkn own) date) fibrillation unknown) (unknown) (no (unknown) (unknown) 300 mg PO TID Qty: (units (unknown) date) 270 0RF unknown) (unknown) (no (unknown) (unknown) 4. 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 Will continue (units (unknown) date) torsemide 20 mg unknown) daily on discharge. (unknown) (no (unknown) (unknown) 40 mg PO BEDTIME (units (unknown) date) Qty: 90 0RF unknown) (unknown) (no (unknown) (unknown) 40 mg PO DAILY (units (unknown) date) Qty: 90 0RF unknown) (unknown) (no (unknown) (unknown) 5 mg PO BID Qty: (units (unknown) date) 180 1RF unknown) (unknown) (no (unknown) (unknown) 5. Hypertension (units (unknown) date) unknown) (unknown) (no (unknown) (unknown) 5. Will resume (units (unknown) date) home losartan 50 mg unknown) daily. (unknown) (no (unknown) (unknown) 50 mg PO DAILY (units (unknown) date) Qty: 90 1RF unknown) (unknown) (no (unknown) (unknown) 6. Conservative (units (unknown) date) management and unknown) encouraged ambulation. (unknown) (no (unknown) (unknown) 6. Constipation (units (unknown) date) with impaction, unknown) improved (unknown) (no (unknown) (unknown) Allergies (units (unkn own) date) unknown) (unknown) (no (unknown) (unknown) As directed (units (un known) date) unknown) (unknown) (no (unknown) (unknown) Assessment: (units (un known) date) unknown) (unknown) (no (unknown) (unknown) Comment: (units (unkno wn) date) unknown) (unknown) (no (unknown) (unknown) Comment: APS case (units (unknown) date) for neglect unknown) (unknown) (no (unknown) (unknown) Comment: Failure (units (unknown) date) to thrive, needs unknown) placement? (unknown) (no (unknown) (unknown) Comment: Prior (units (unknown) date) CVA, mild unknown) dysarthria, syncopal episode (unknown) (no (unknown) (unknown) Comment: Prior (units (unknown) date) CVA, syncopal unknown) episode (unknown) (no (unknown) (unknown) Comment: Prior (units (unknown) date) CVA, syncopal unknown) episode, cognitive eval (unknown) (no (unknown) (unknown) Consult to (units (unk nown) date) Dietitian, Adult unknown) Routine (unknown) (no (unknown) (unknown) Consult to (units (unk nown) date) Discharge Planning unknown) Routine (unknown) (no (unknown) (unknown) Consult to [facility] - (units (unknown) 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) Routine (unknown) (no (unknown) (unknown) Consult to (units (unk nown) date) Occupational unknown) Therapy Evaluate + Treat (unknown) (no (unknown) (unknown) Consult to (units (unk nown) date) Physical Therapy unknown) Evaluate + Treat (unknown) (no (unknown) (unknown) Consult to Social (units (unknown) date) Services Routine unknown) (unknown) (no (unknown) (unknown) Consult to Speech (units (unknown) date) Therapy Evaluate + unknown) Treat (unknown) (no (unknown) (unknown) Discharge (units (unkn own) date) Diagnosis: unknown) (unknown) (no (unknown) (unknown) Discharge Summary (units (unknown) date) unknown) (unknown) (no (unknown) (unknown) Discharge (units (unkn own) date) provider: unknown) (unknown) (no (unknown) (unknown) Dose Instruction: (units (unknown) date) unknown) (unknown) (no (unknown) (unknown) ED Orders (units (unkn own) date) unknown) (unknown) (no (unknown) (unknown) Emergency Report (units (unknown) date) unknown) (unknown) (no (unknown) (unknown) Soo Singh MD (units (unknown) date) unknown) (unknown) (no (unknown) (unknown) Hold Instructions: (units (unknown) date) stopped at unknown) [facility] ([facility]) (no (unknown) (unknown) Hospital Course (units (unknown) date) unknown) (unknown) (no (unknown) (unknown) [facility] (units (unknown) date) [address] unknown) [place] [address] (unknown) (no (unknown) (unknown) Patient unable to (units (unknown) date) walk 200 feet unknown) without stopping to rest. (unknown) (no (unknown) (unknown) Physician (units (unkn own) date) Instructions: unknown) Evaluate and Treat (unknown) (no (unknown) (unknown) Physician (units (unkn own) date) Instructions: unknown) Evaluate and treat (unknown) (no (unknown) (unknown) Plan: (units (unkno wn) date) unknown) (unknown) (no (unknown) (unknown) Previous Rx's (units ( unknown) date) unknown) (unknown) (no (unknown) (unknown) Reason For Exam: (units (unknown) date) malnutrition + no unknown) teeth (unknown) (no (unknown) (unknown) Rx Instructions: (units (unknown) date) unknown) (unknown) (no (unknown) (unknown) See Rx (units (unkno wn) date) Instructions unknown) .ROUTE .MEDSUPPLY Qty: 1 0RF (unknown) (no (unknown) (unknown) See Rx (units (unkno wn) date) Instructions unknown) Sublingual PRN PRN (Reason: Chest Pain) Qty: 30 0RF (unknown) (no (unknown) (unknown) Stop: 03/17/22 (units (unknown) date) 21:32 unknown) (unknown) (no (unknown) (unknown) Summary (units (unkno wn) date) unknown) (unknown) (no (unknown) (unknown) Vital Signs - 8 hr (units (unknown) date) unknown) (unknown) (no (unknown) (unknown) apply to single (units (unknown) date) elbow, wrist or unknown) hand; for hand includes palm/fingers/back of (unknown) (no (unknown) (unknown) (no value) (units (unk nown) date) unknown) (unknown) (no (unknown) (unknown) (DME) Aerochamber (units (unknown) date) MV Spacer unknown) (unknown) (no (unknown) (unknown) (DME) Handicap (units (unknown) date) Parking unknown) (unknown) (no (unknown) (unknown) ADDENDUMAs an (units (unknown) date) addendum to the unknown) assessment and plan portion of this note, (unknown) (no (unknown) (unknown) apixaban 5 mg (units ( unknown) date) tablet unknown) (unknown) (no (unknown) (unknown) atorvastatin 40 mg (units (unknown) date) tablet unknown) (unknown) (no (unknown) (unknown) diclofenac sodium (units (unknown) date) 1 % gel unknown) (unknown) (no (unknown) (unknown) gabapentin (units (unk nown) date) [Neurontin] 300 mg unknown) capsule (unknown) (no (unknown) (unknown) hydrocodone-acetam (units (unknown) date) inophen 5-325 mg unknown) tablet (unknown) (no (unknown) (unknown) losartan 50 mg (units (unknown) date) tablet unknown) (unknown) (no (unknown) (unknown) metoprolol (units (unk nown) date) tartrate 25 mg unknown) tablet (unknown) (no (unknown) (unknown) nitroglycerin (units ( unknown) date) [Nitrostat] 0.4 mg unknown) tablet, sublingual (unknown) (no (unknown) (unknown) pantoprazole 40 mg (units (unknown) date) tablet,delayed unknown) release (DR/EC) (unknown) (no (unknown) (unknown) 03/17/22 (units (unkno wn) date) unknown) (unknown) (no (unknown) (unknown) 3. Will continue (units (unknown) date) Eliquis 5 mg bid unknown) for anticoagulation, with Lopressor 12.5 mg (unknown) (no (unknown) (unknown) Medication (units (unk nown) date) Instructions unknown) Recorded (unknown) (no (unknown) (unknown) Patient is awake (units (unknown) date) alert oriented x3. unknown) (unknown) (no (unknown) (unknown) <Electronically (units (unknown) date) signed by Soo unknown) MD [facility]> (unknown) (no (unknown) (unknown) (12/05/17) (units (unk nown) date) unknown) (unknown) (no (unknown) (unknown) (Aerochamber MV (units (unknown) date) spacer) unknown) (unknown) (no (unknown) (unknown) (Neurontin) (units (un known) date) unknown) (unknown) (no (unknown) (unknown) 02/16/22 21:54 (units (unknown) date) unknown) (unknown) (no (unknown) (unknown) 02/20/22 1321 (units ( unknown) date) unknown) (unknown) (no (unknown) (unknown) 03/17/22 20:07 (units (unknown) date) unknown) (unknown) (no (unknown) (unknown) 03/17/22 21:08 (units (unknown) date) unknown) (unknown) (no (unknown) (unknown) 03/17/22 21:09 (units (unknown) date) unknown) (unknown) (no (unknown) (unknown) 1. Physical (units (un known) date) debility/deconditio unknown) gelacio (unknown) (no (unknown) (unknown) 1. This is likely (units (unknown) date) a function of unknown) advancing age and sedentary status at home. The (unknown) (no (unknown) (unknown) 1. This is likely (units (unknown) date) a function of unknown) advancing age and sedentary status at home. 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 This likely is (units (unknown) date) contributing unknown) greatly to problem 1. Continue home (unknown) (no (unknown) (unknown) 21:05 (units (unkno wn) date) unknown) (unknown) (no (unknown) (unknown) 3. Atrial (units (unkn own) date) fibrillation unknown) (unknown) (no (unknown) (unknown) 3. Will continue (units (unknown) date) Eliquis 5 mg bid unknown) for anticoagulation, with Lopressor 12.5 mg (unknown) (no (unknown) (unknown) 4. 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 Will continue (units (unknown) date) torsemide 20 mg unknown) daily on discharge. (unknown) (no (unknown) (unknown) 5. Hypertension (units (unknown) date) unknown) (unknown) (no (unknown) (unknown) 5. Will resume (units (unknown) date) home losartan 50 mg unknown) daily. (unknown) (no (unknown) (unknown) 6. Conservative (units (unknown) date) management and unknown) encouraged ambulation. (unknown) (no (unknown) (unknown) 6. Constipation (units (unknown) date) with impaction, unknown) improved (unknown) (no (unknown) (unknown) ? (units (unknown) date) ? unknown) ? Date of (unknown) (no (unknown) (unknown) Abdominal pain (units (unknown) date) unknown) (unknown) (no (unknown) (unknown) Acct:[id number] (units (unknown) date) unknown) (unknown) (no (unknown) (unknown) Acute pancreatitis (units (unknown) date) unknown) (unknown) (no (unknown) (unknown) Addendum (units (unkno wn) date) Documented By: unknown) (unknown) (no (unknown) (unknown) Addendum Signed (units (unknown) date) By: unknown) (unknown) (no (unknown) (unknown) Age/Sex: 86 / F (units (unknown) date) unknown) (unknown) (no (unknown) (unknown) Age/Sex: 86 / F (units (unknown) date) unknown) (unknown) (no (unknown) (unknown) Allergy/AdvReac (units (unknown) date) Type Severity unknown) Reaction Status Date / Time (unknown) (no (unknown) (unknown) Anesthesia (units (unk nown) date) unknown) (unknown) (no (unknown) (unknown) Anxiety (units (unkno wn) date) unknown) 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 () (unknown) (no (unknown) (unknown) 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 unknown) (unknown) (no (unknown) (unknown) Blood Pressure (units (unknown) date) 201/119 H 03/17/22 unknown) 21:05 (unknown) (no (unknown) (unknown) Blood Pressure (units (unknown) date) 201/119 H unknown) (unknown) (no (unknown) (unknown) Breast cancer (units ( unknown) date) () unknown) (unknown) (no (unknown) (unknown) 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) unknown) (unknown) (no (unknown) (unknown) CARDIOVASCULAR: (units (unknown) date) Positive for chest unknown) pain, negative for palpitations (unknown) (no (unknown) (unknown) CARDIOVASCULAR: (units (unknown) date) Regular rate and unknown) rhythm without murmurs (unknown) (no (unknown) (unknown) CT of the head did (units (unknown) date) report prior unknown) cortical and subcortical encephalomalacia on the (unknown) (no (unknown) (unknown) Calcified nodule (units (unknown) date) unknown) (unknown) (no (unknown) (unknown) Jackie Prather (units (unknown) date) is an 86-year-old unknown) female with a history of chronic abdominal (unknown) (no (unknown) (unknown) 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 (unknown) (no (unknown) (unknown) Cervical cancer, (units (unknown) date) FIGO stage I unknown) (unknown) (no (unknown) (unknown) Chief Complaint: (units (unknown) date) Chest Pain unknown) (unknown) (no (unknown) (unknown) Chief complaint: (units (unknown) date) Decreased LOC unknown) (unknown) (no (unknown) (unknown) Cholelithiasis (units (unknown) date) unknown) (unknown) (no (unknown) (unknown) Chronic back pain (units (unknown) date) unknown) (unknown) (no (unknown) (unknown) Complete Blood (units (unknown) date) Count AUTO DIFF unknown) Stat (unknown) (no (unknown) (unknown) Comprehensive (units ( unknown) date) Metabolic Panel unknown) Stat (unknown) (no (unknown) (unknown) Consult to [facility] - (units (unknown) 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) Stat (unknown) (no (unknown) (unknown) Consults: (units (unkn own) date) unknown) (unknown) (no (unknown) (unknown) Course (units (unkno wn) date) unknown) (unknown) (no (unknown) (unknown) Course Narrative: (units (unknown) date) unknown) (unknown) (no (unknown) (unknown) : 1935 (units (unknown) date) Acct:[id number] unknown) (unknown) (no (unknown) (unknown) : 1935 (units (unknown) date) unknown) (unknown) (no (unknown) (unknown) Date of admission: (units (unknown) date) unknown) (unknown) (no (unknown) (unknown) Departure (units (unkn own) date) unknown) (unknown) (no (unknown) (unknown) Developmental (units ( unknown) date) disorder unknown) (unknown) (no (unknown) (unknown) Diarrhea (units (unkno wn) date) unknown) (unknown) (no (unknown) (unknown) Differential (units (u nknown) date) Diagnosis unknown) (unknown) (no (unknown) (unknown) Differential (units (un known) date) diagnosis: Likely unknown) stable angina, unstable angina pectoris, atypical (unknown) (no (unknown) (unknown) Discharge (units (unkn own) date) Assessment + Plan unknown) (unknown) (no (unknown) (unknown) Discharge Date: (units (unknown) date) 02/19/22 unknown) (unknown) (no (unknown) (unknown) Discharge Plan (units (unknown) date) unknown) (unknown) (no (unknown) (unknown) Discharge (units (unkn own) date) Providers unknown) (unknown) (no (unknown) (unknown) Discontinued (units (u nknown) date) Medications unknown) (unknown) (no (unknown) (unknown) ECG Data (units (unkno wn) date) unknown) (unknown) (no (unknown) (unknown) EKG-12 Lead Stat (units (unknown) date) unknown) (unknown) (no (unknown) (unknown) ENT: Mucous (units (u nknown) date) membranes moist. unknown) (unknown) (no (unknown) (unknown) ER Physician: (units ( unknown) date) Jossue Salcido MD unknown) (unknown) (no (unknown) (unknown) EXTREMITIES: No (units (unknown) date) gross deformities. unknown) (unknown) (no (unknown) (unknown) EYES: Pupils equal (units (unknown) date) round No scleral unknown) icterus. (unknown) (no (unknown) (unknown) Essential (units (unkn own) date) hypertension unknown) (09/28/12) (unknown) (no (unknown) (unknown) Exam (units (unkno wn) date) unknown) (unknown) (no (unknown) (unknown) Exam Narrative: (units (unknown) date) unknown) (unknown) (no (unknown) (unknown) Failure to thrive (units (unknown) date) in adult unknown) (unknown) (no (unknown) (unknown) Fibrocystic breast (units (unknown) date) disease unknown) (unknown) (no (unknown) (unknown) GASTROINTESTINAL: (units (unknown) date) Abdomen soft, unknown) non-tender (unknown) (no (unknown) (unknown) GASTROINTESTINAL: (units (unknown) date) Denies nausea, unknown) vomiting, abdominal pain (unknown) (no (unknown) (unknown) GENERAL: Denies (units (unknown) date) chills, fatigue, unknown) malaise, fever, sweats. (unknown) (no (unknown) (unknown) GENERAL: in no (units (unknown) date) distress, not toxic unknown) not dyspneic (unknown) (no (unknown) (unknown) GERD (units (unkno wn) date) (gastroesophageal unknown) reflux disease) (unknown) (no (unknown) (unknown) : Denies (units (unk nown) date) dysuria, frequency, unknown) hematuria (unknown) (no (unknown) (unknown) Alyssa Robison MD (units (unknown) date) unknown) (unknown) (no (unknown) (unknown) General (units (unkno wn) date) unknown) (unknown) (no (unknown) (unknown) HEAD: (units (unkno wn) date) Normocephalic. unknown) (unknown) (no (unknown) (unknown) HEENT: Denies (units ( unknown) date) sinus pain, ear unknown) pain, sore throat (unknown) (no (unknown) (unknown) HPI - Chest Pain (units (unknown) date) unknown) (unknown) (no (unknown) (unknown) HPI narrative: (units (unknown) date) unknown) (unknown) (no (unknown) (unknown) Handicap Parking (units (unknown) date) #1 ea 01/12/19 unknown) (unknown) (no (unknown) (unknown) Soo Singh MD (units (unknown) date) unknown) (unknown) (no (unknown) (unknown) History of Present (units (unknown) date) Illness unknown) (unknown) (no (unknown) (unknown) History of colon (units (unknown) date) polyps (09/28/12) unknown) (unknown) (no (unknown) (unknown) History of left (units (unknown) date) breast cancer unknown) (-2008) (unknown) (no (unknown) (unknown) Hyperlipidemia (units (unknown) date) unknown) 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) unknown) (unknown) (no (unknown) (unknown) Initial Vital (units ( unknown) date) Signs unknown) (unknown) (no (unknown) (unknown) Initial Vital (units ( unknown) date) Signs: unknown) (unknown) (no (unknown) (unknown) Interpretation: (units (unknown) date) unknown) (unknown) (no (unknown) (unknown) Lab Data (units (unkno wn) date) unknown) (unknown) (no (unknown) (unknown) Limitations: (units (u nknown) date) altered mental unknown) status (unknown) (no (unknown) (unknown) Lipase Stat (units (un known) date) unknown) (unknown) (no (unknown) (unknown) [id number] (units (unk nown) date) unknown) (unknown) (no (unknown) (unknown) MCA territory and (units (unknown) date) suggested if there unknown) were concerned of an acute on chronic CVA (unknown) (no (unknown) (unknown) MDM - Chest Pain (units (unknown) date) unknown) (unknown) (no (unknown) (unknown) MR#: [id number] (units (unknown) date) unknown) (unknown) (no (unknown) (unknown) MUSCULOSKELETAL: (units (unknown) date) denies muscle or unknown) bony pain (unknown) (no (unknown) (unknown) Magnesium Stat (units (unknown) date) unknown) (unknown) (no (unknown) (unknown) Measles (units (unkno wn) date) unknown) (unknown) (no (unknown) (unknown) Medical History (units (unknown) date) (Reviewed 03/17/22 unknown) @ 21:36 by Jossue Salcido MD) 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 unknown) (unknown) (no (unknown) (unknown) NEURO: AOx4. (units (u nknown) date) unknown) (unknown) (no (unknown) (unknown) NEUROLOGIC: Denies (units (unknown) date) weakness, numbness unknown) (unknown) (no (unknown) (unknown) Narrative (units (unkn own) date) unknown) (unknown) (no (unknown) (unknown) Narrative: (units (unk nown) date) unknown) (unknown) (no (unknown) (unknown) Narrative: (units (unk nown) date) unknown) (unknown) (no (unknown) (unknown) No Action (units (unkn own) date) unknown) (unknown) (no (unknown) (unknown) No new issues (units ( unknown) date) during course of unknown) stay (unknown) (no (unknown) (unknown) No recent illness (units (unknown) date) fever chills cough unknown) cold or congestion. No urinary complaints. (unknown) (no (unknown) (unknown) Ordered: (units (unkno wn) date) unknown) (unknown) (no (unknown) (unknown) Orders (units (unkno wn) date) unknown) (unknown) (no (unknown) (unknown) Osteoarthritis of (units (unknown) date) knees, bilateral unknown) (unknown) (no (unknown) (unknown) Oxygen Delivery (units (unknown) date) Method 03/17/22 unknown) 21:05 (unknown) (no (unknown) (unknown) Oxygen Delivery (units (unknown) date) Method Room Air unknown) (unknown) (no (unknown) (unknown) PSYCH: Not (units (un known) date) anxious, is unknown) cooperative (unknown) (no (unknown) (unknown) Patient (units (unkno wn) date) Disposition: Home unknown) (unknown) (no (unknown) (unknown) Patient History (units (unknown) date) unknown) (unknown) (no (unknown) (unknown) Patient brought (units (unknown) date) here by ambulance unknown) from home. Complaints of chest pain relief (unknown) (no (unknown) (unknown) Patient: (units (unkno wn) date) Jackie Prather unknown) MR#: (unknown) (no (unknown) (unknown) Patient: (units (unkno wn) date) Jackie Prather unknown) (unknown) (no (unknown) (unknown) 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) (unknown) (no (unknown) (unknown) Plan: (units (unkno wn) date) unknown) (unknown) (no (unknown) (unknown) Prescriptions: (units (unknown) date) unknown) (unknown) (no (unknown) (unknown) Primary care (units (u nknown) date) physician: unknown) (unknown) (no (unknown) (unknown) 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) () (unknown) (no (unknown) (unknown) 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) (unknown) (no (unknown) (unknown) Provider (units (unkno wn) date) unknown) (unknown) (no (unknown) (unknown) Provider:?Lex Singh (units (unknown) date) megan REGAN unknown) (unknown) (no (unknown) (unknown) Pulse Oximetry 96 (units (unknown) date) 03/17/22 21:05 unknown) (unknown) (no (unknown) (unknown) Pulse Oximetry 96 (units (unknown) date) unknown) (unknown) (no (unknown) (unknown) Pulse Rate 118 H (units (unknown) date) 03/17/22 21:05 unknown) (unknown) (no (unknown) (unknown) Pulse Rate 118 H (units (unknown) date) unknown) (unknown) (no (unknown) (unknown) RESPIRATORY: Clear (units (unknown) date) to auscultation. unknown) Breath sounds equal bilaterally. No wheezes, (unknown) (no (unknown) (unknown) RESPIRATORY: (units (u nknown) date) Denies dyspnea, unknown) cough (unknown) (no (unknown) (unknown) ROS Unobtainable: (units (unknown) date) All systems unknown) reviewed + are unremarkable except as noted in HPI (unknown) (no (unknown) (unknown) Related Data (units (u nknown) date) unknown) (unknown) (no (unknown) (unknown) Respiratory Rate (units (unknown) date) 20 03/17/22 21:05 unknown) (unknown) (no (unknown) (unknown) Respiratory Rate (units (unknown) date) 20 unknown) (unknown) (no (unknown) (unknown) Result diagrams: (units (unknown) date) unknown) (unknown) (no (unknown) (unknown) Review of Systems (units (unknown) date) unknown) (unknown) (no (unknown) (unknown) SKIN: Warm and (units (unknown) date) dry unknown) (unknown) (no (unknown) (unknown) SKIN: Denies rash, (units (unknown) date) skin lesions unknown) (unknown) (no (unknown) (unknown) Service: 02/16/22 (units (unknown) date) unknown) (unknown) (no (unknown) (unknown) She presented (units ( unknown) date) today with EMS and unknown) she was very confused and apparently covered (unknown) (no (unknown) (unknown) She told the nurse (units (unknown) date) that she lives in unknown) an apartment that is connected to the house (unknown) (no (unknown) (unknown) Signed By: (units (unk nown) date) unknown) (unknown) (no (unknown) (unknown) Smoking Status: (units (unknown) date) Never smoker unknown) (unknown) (no (unknown) (unknown) Smoking Status: (units (unknown) date) Never smoker unknown) (unknown) (no (unknown) (unknown) Social History (units (unknown) date) (Reviewed 03/17/22 unknown) @ 21:36 by Jossue Salcido MD) (unknown) (no (unknown) (unknown) Source: patient (units (unknown) date) unknown) (unknown) (no (unknown) (unknown) Speech and (units (unk nown) date) language unknown) 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 (09/28/12) (unknown) (no (unknown) (unknown) Stated Complaint: (units (unknown) date) Chest Pain, Welfare unknown) check (unknown) (no (unknown) (unknown) Status post (units (un known) date) arthroscopy unknown) (unknown) (no (unknown) (unknown) Status post biopsy (units (unknown) date) () unknown) (unknown) (no (unknown) (unknown) Status post breast (units (unknown) date) lumpectomy () unknown) (unknown) (no (unknown) (unknown) Status post (units (un known) date) cholecystectomy unknown) (unknown) (no (unknown) (unknown) 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 (unknown) (no (unknown) (unknown) Status post (units (un known) date) hysterectomy unknown) () (unknown) (no (unknown) (unknown) Substance Use (units ( unknown) date) Type: does not use unknown) (unknown) (no (unknown) (unknown) Surgical History (units (unknown) date) (Reviewed 03/17/22 unknown) @ 21:36 by Jossue Salcido MD) (unknown) (no (unknown) (unknown) 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, NYHA (unknown) (no (unknown) (unknown) Temperature 97.7 (units (unknown) date) F 03/17/22 21:05 unknown) (unknown) (no (unknown) (unknown) Temperature 97.7 F (units (unknown) date) unknown) (unknown) (no (unknown) (unknown) Time Seen by (units (u nknown) date) Provider: 03/17/22 unknown) 21:24 (unknown) (no (unknown) (unknown) Troponin + CK (units ( unknown) date) Cardiac Panel Stat unknown) (unknown) (no (unknown) (unknown) Vital Signs (units (un known) date) unknown) (unknown) (no (unknown) (unknown) Vital signs: (units (u nknown) date) unknown) (unknown) (no (unknown) (unknown) Written by (units (unk nown) date) admitting provider. unknown) (unknown) (no (unknown) (unknown) XR chest 1V Stat (units (unknown) date) unknown) (unknown) (no (unknown) (unknown) [Embedded Image (units (unknown) date) Not Available] unknown) (unknown) (no (unknown) (unknown) acute (units (unkno wn) date) diverticulitis.? unknown) WBC is unremarkable, she has a creatinine bump of 1.06 (unknown) (no (unknown) (unknown) alcohol intake (units (unknown) date) frequency: unknown) holidays/special occasions only (unknown) (no (unknown) (unknown) alcohol intake: (units (unknown) date) never unknown) (unknown) (no (unknown) (unknown) and apparently that (units (unknown) date) is been an issue.? unknown) Review of case management note written on (unknown) (no (unknown) (unknown) and below (units (unkn own) date) unknown) (unknown) (no (unknown) (unknown) apixaban 5 mg (units ( unknown) date) tablet 5 mg PO BID unknown) #180 tabs 03/11/21 (unknown) (no (unknown) (unknown) atherosclerotic (units (unknown) date) plaque protecting unknown) meds. (unknown) (no (unknown) (unknown) atorvastatin 40 mg (units (unknown) date) tablet 40 mg PO unknown) BEDTIME #90 tabs 12/11/21 (unknown) (no (unknown) (unknown) because supposedly (units (unknown) date) her son found her unknown) passed out on the ?marcell potty'.? Patient (unknown) (no (unknown) (unknown) butter cookies and (units (unknown) date) then has maybe a unknown) hot meal, usually hamburger.? (unknown) (no (unknown) (unknown) by cab.? She was (units (unknown) date) apparently seen in unknown) the emergency department on February 14 and at (unknown) (no (unknown) (unknown) chest abdomen and (units (unknown) date) pelvis reported a unknown) small right upper lobe 0.4 cm pulmonary (unknown) (no (unknown) (unknown) chest pain, st (units (unknown) date) elevation unknown) myocardial infarction and chest pain (unknown) (no (unknown) (unknown) class 2 (06/05/11) (units (unknown) date) unknown) (unknown) (no (unknown) (unknown) contaminated and a (units (unknown) date) culture was not unknown) able to be grown or specified. (unknown) (no (unknown) (unknown) daily for rate (units (unknown) date) control. unknown) (unknown) (no (unknown) (unknown) diclofenac sodium (units (unknown) date) 1 % topical gel 2 g unknown) topical QID #100 grams 02/03/22 (unknown) (no (unknown) (unknown) discharge note (units (unknown) date) below. Denies any unknown) recent illness. No fall or injury. She (unknown) (no (unknown) (unknown) distention in the (units (unknown) date) rectum likely unknown) impaction and colonic diverticulosis without (unknown) (no (unknown) (unknown) furosemide (units (unk nown) date) [FUROSEMIDE] unknown) Allergy Mild RASH Verified 02/16/22 18:19 (unknown) (no (unknown) (unknown) gabapentin 300 mg (units (unknown) date) capsule 300 mg PO unknown) TID #270 caps 11/18/21 (unknown) (no (unknown) (unknown) hand (units (unkno wn) date) unknown) (unknown) (no (unknown) (unknown) household members: (units (unknown) date) children unknown) (unknown) (no (unknown) (unknown) hydrocodone 5 (units ( unknown) date) mg-acetaminophen unknown) 325 1 tab PO BID PRN pain #20 tabs 03/02/22 (unknown) (no (unknown) (unknown) in the process of (units (unknown) date) being evicted from unknown) an apartment however she has tenant rights (unknown) (no (unknown) (unknown) inhalational (units (u nknown) date) spacing device #1 unknown) ea 11/01/19 (unknown) (no (unknown) (unknown) last month for (units (unknown) date) multiple problems. unknown) Did have echocardiogram done. Please see (unknown) (no (unknown) (unknown) likely adversely (units (unknown) date) affecting all of unknown) the patient's other comorbidities. (unknown) (no (unknown) (unknown) lisinopril AdvReac (units (unknown) date) Mild Cough Verified unknown) 02/16/22 18:19 (unknown) (no (unknown) (unknown) lives with her son (units (unknown) date) and was recently unknown) homeless.? She was apparently confused, (unknown) (no (unknown) (unknown) losartan 50 mg (units (unknown) date) tablet 50 mg PO unknown) DAILY #90 tabs 02/09/22 (unknown) (no (unknown) (unknown) metoprolol (units (unk nown) date) tartrate 25 mg unknown) tablet 12.5 mg PO DAILY #45 tabs 12/11/21 (unknown) (no (unknown) (unknown) mg tablet (units (unkn own) date) unknown) (unknown) (no (unknown) (unknown) multiple times (units (unknown) date) when the son was unknown) contacted he was hard to be connected to and (unknown) (no (unknown) (unknown) nitroglycerin 0.4 (units (unknown) date) mg sublingual See unknown) Rx Instructions sublingual PRN 10/26/21 (unknown) (no (unknown) (unknown) nodule with (units (un known) date) recommendations for unknown) follow-up in 12 months and moderate stool (unknown) (no (unknown) (unknown) pain, CAD, (units (unk nown) date) anxiety, atrial unknown) fibrillation on anticoagulation, history of (unknown) (no (unknown) (unknown) pantoprazole 40 mg (units (unknown) date) tablet,delayed 40 unknown) mg PO DAILY #90 tabs 02/09/22 (unknown) (no (unknown) (unknown) patient declined (units (unknown) date) SNF placement, and unknown) will receive home health aide on discharge. (unknown) (no (unknown) (unknown) please add the (units (unknown) date) following: severe, unknown) acute protein-calorie malnutrition. This is (unknown) (no (unknown) (unknown) rales, or rhonchi. (units (unknown) date) unknown) (unknown) (no (unknown) (unknown) release (units (unkno wn) date) unknown) (unknown) (no (unknown) (unknown) relief. (units (unkno wn) date) unknown) (unknown) (no (unknown) (unknown) right MCA infarct (units (unknown) date) unknown) (unknown) (no (unknown) (unknown) right parietal and (units (unknown) date) temporal lobes unknown) consistent with a prior infarct in the right (unknown) (no (unknown) (unknown) sertraline (units (unk nown) date) [SERTRALINE] unknown) Allergy Mild FEELS Verified 02/16/22 18:19 (unknown) (no (unknown) (unknown) states she is in a (units (unknown) date) better living unknown) condition since being discharged last month. (unknown) (no (unknown) (unknown) states she only (units (unknown) date) eats 2 times a day unknown) consisting mostly of putting and peanut (unknown) (no (unknown) (unknown) tablet (Nitrostat) (units (unknown) date) PRN Chest Pain #30 unknown) tabs (unknown) (no (unknown) (unknown) that her son lives (units (unknown) date) in and when unknown) discussing her case with the ED provider, she was (unknown) (no (unknown) (unknown) that time there (units (unknown) date) objective will to unknown) obtain a urinalysis however it appeared to be (unknown) (no (unknown) (unknown) the indicates (units (unknown) date) that she has no unknown) running water in her home and reportedly (unknown) (no (unknown) (unknown) 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 History of (units (unknown) date) coronary disease unknown) with bypass surgery. Recently admitted here (unknown) (no (unknown) (unknown) to have the (units (un known) date) patient undergo MRI unknown) imaging to further delineate this.? CT of the (unknown) (no (unknown) (unknown) trace leukocyte (units (unknown) date) esterase and will unknown) be cultured.? COVID-19 PCR is negative. (unknown) (no (unknown) (unknown) unkempt and (units (un known) date) appeared to be not unknown) cared for hygienic Jael.? It appears that (unknown) (no (unknown) (unknown) when they were (units (unknown) date) able to reach him unknown) he would request that the patient be sent home (unknown) (no (unknown) (unknown) with an EGFR of (units (unknown) date) 52, alk-phos unknown) elevated at 146 UA is positive for ketones and (unknown) (no (unknown) (unknown) with home (units (unkn own) date) nitroglycerin. To unknown) calm 81 mg aspirin. Denies any chest pain at this (unknown) (no (unknown) (unknown) with stool and (units (unknown) date) urine. unknown) Result panel 3 (unknown) (no date) (unknown) (unknown) 0 /uL (unkn own) (unknown) (no date) (unknown) (unknown) 0 /uL (unkn own) (unknown) (no date) (unknown) (unknown) 0.7 % (unkn own) (unknown) (no date) (unknown) (unknown) 0.8 % (unkn own) (unknown) (no date) (unknown) (unknown) 13.0 g/dL (unkn own) (unknown) (no date) (unknown) (unknown) 1300 /uL (unkn own) (unknown) (no date) (unknown) (unknown) 14.7 % (unkn own) (unknown) (no date) (unknown) (unknown) 20.2 % (unkn own) (unknown) (no date) (unknown) (unknown) 250 X10 3/uL (unkn own) (unknown) (no date) (unknown) (unknown) 30.1 PG (unkn own) (unknown) (no date) (unknown) (unknown) 33.2 % (unkn own) (unknown) (no date) (unknown) (unknown) 39.2 % (unkn own) (unknown) (no date) (unknown) (unknown) 4.32 X10 6/uL (unkn own) (unknown) (no date) (unknown) (unknown) 400 /uL (unkn own) (unknown) (no date) (unknown) (unknown) 4400 /uL (unkn own) (unknown) (no date) (unknown) (unknown) 6.2 X10 3/uL (unkn own) (unknown) (no date) (unknown) (unknown) 7.2 % (unkn own) (unknown) (no date) (unknown) (unknown) 71.1 % (unkn own) (unknown) (no date) (unknown) (unknown) 90.9 fL (unkn own) Result panel 4 (unknown) (no date) (unknown) (unknown) > 60 mL/min (unkn own) (unknown) (no date) (unknown) (unknown) < 20 U/L (unkn own) (unknown) (no date) (unknown) (unknown) 0.87 mg/dL (unkn own) (unknown) (no date) (unknown) (unknown) 0.9 mg/dL (unkn own) (unknown) (no date) (unknown) (unknown) 1.2 (units (unkn own) unknown) (unknown) (no date) (unknown) (unknown) 10 IU/L (unkn own) (unknown) (no date) (unknown) (unknown) 103 mmol/L (unkn own) (unknown) (no date) (unknown) (unknown) 116 U/L (unkn own) (unknown) (no date) (unknown) (unknown) 140 mmol/L (unkn own) (unknown) (no date) (unknown) (unknown) 18 mg/dL (unkn own) (unknown) (no date) (unknown) (unknown) 2.0 mg/dL (unkn own) (unknown) (no date) (unknown) (unknown) 20.7 (units (unkn own) unknown) (unknown) (no date) (unknown) (unknown) 26 IU/L (unkn own) (unknown) (no date) (unknown) (unknown) 27 mmol/L (unkn own) (unknown) (no date) (unknown) (unknown) 3.5 g/dL (unkn own) (unknown) (no date) (unknown) (unknown) 4.1 g/dL (unkn own) (unknown) (no date) (unknown) (unknown) 4.5 mmol/L (unkn own) (unknown) (no date) (unknown) (unknown) 45 U/L (unkn own) (unknown) (no date) (unknown) (unknown) 7.6 g/dL (unkn own) (unknown) (no date) (unknown) (unknown) 9.1 mg/dL (unkn own) (unknown) (no date) (unknown) (unknown) 99 mg/dL (unkn own) (unknown) (no date) (unknown) (unknown) Test not % (unkn own) performed (unknown) (no date) (unknown) (unknown) Test not ng/mL (unkn own) performed Result panel 5 (unknown) (no date) (unknown) (unknown) > 60 mL/min (unkn own) (unknown) (no date) (unknown) (unknown) < 0.012 ng/mL (unkn own) (unknown) (no date) (unknown) (unknown) < 20 U/L (unkn own) (unknown) (no date) (unknown) (unknown) 0.87 mg/dL (unkn own) (unknown) (no date) (unknown) (unknown) 0.9 mg/dL (unkn own) (unknown) (no date) (unknown) (unknown) 1.2 (units (unkn own) unknown) (unknown) (no date) (unknown) (unknown) 10 IU/L (unkn own) (unknown) (no date) (unknown) (unknown) 103 mmol/L (unkn own) (unknown) (no date) (unknown) (unknown) 116 U/L (unkn own) (unknown) (no date) (unknown) (unknown) 140 mmol/L (unkn own) (unknown) (no date) (unknown) (unknown) 18 mg/dL (unkn own) (unknown) (no date) (unknown) (unknown) 2.0 mg/dL (unkn own) (unknown) (no date) (unknown) (unknown) 20.7 (units (unkn own) unknown) (unknown) (no date) (unknown) (unknown) 26 IU/L (unkn own) (unknown) (no date) (unknown) (unknown) 27 mmol/L (unkn own) (unknown) (no date) (unknown) (unknown) 3.5 g/dL (unkn own) (unknown) (no date) (unknown) (unknown) 4.1 g/dL (unkn own) (unknown) (no date) (unknown) (unknown) 4.5 mmol/L (unkn own) (unknown) (no date) (unknown) (unknown) 45 U/L (unkn own) (unknown) (no date) (unknown) (unknown) 7.6 g/dL (unkn own) (unknown) (no date) (unknown) (unknown) 9.1 mg/dL (unkn own) (unknown) (no date) (unknown) (unknown) 99 mg/dL (unkn own) (unknown) (no date) (unknown) (unknown) Test not % (unkn own) performed (unknown) (no date) (unknown) (unknown) Test not ng/mL (unkn own) performed Result panel 6 (unknown) (no date) (unknown) (unknown) Negative (units (unkn own) unknown) Result panel 7 (unknown) (no date) (unknown) (unknown) < 0.012 ng/mL (unkn own) Result panel 8 (unknown) (no (unknown) (unknown) 2. This likely is (units (unknown) date) contributing unknown) greatly to problem 1. Continue home (unknown) (no (unknown) (unknown) Qty: 1 0RF (units (unk nown) date) unknown) (unknown) (no (unknown) (unknown) (no value) (units (unk nown) date) unknown) (unknown) (no (unknown) (unknown) Date of Service: (units (unknown) date) 03/17/22 unknown) (unknown) (no (unknown) (unknown) (no value) (units (unk nown) date) unknown) (unknown) (no (unknown) (unknown) 'DRUGGED' (units (unkn own) date) unknown) (unknown) (no (unknown) (unknown) 02/16/22 23:18 (units (unknown) date) unknown) (unknown) (no (unknown) (unknown) 02/17/22 01:58 (units (unknown) date) unknown) (unknown) (no (unknown) (unknown) 02/17/22 02:01 (units (unknown) date) unknown) (unknown) (no (unknown) (unknown) 02/17/22 05:08 (units (unknown) date) unknown) (unknown) (no (unknown) (unknown) 03/17/22 20:07 (units (unknown) date) unknown) (unknown) (no (unknown) (unknown) 1 tab PO BID PRN (units (unknown) date) (Reason: pain) Qty: unknown) 20 0RF (unknown) (no (unknown) (unknown) 1 tab under tongue (units (unknown) date) every five minutes unknown) up to three times, call 911 if no (unknown) (no (unknown) (unknown) 1. Physical (units (un known) date) debility/deconditio unknown) gelacio (unknown) (no (unknown) (unknown) 12.5 mg PO DAILY (units (unknown) date) Qty: 45 0RF unknown) (unknown) (no (unknown) (unknown) [facility] (units (unknown) date) unknown) (unknown) (no (unknown) (unknown) 2 g topical QID (units (unknown) date) Qty: 100 0RF unknown) (unknown) (no (unknown) (unknown) 3. Atrial (units (unkn own) date) fibrillation unknown) (unknown) (no (unknown) (unknown) 300 mg PO TID Qty: (units (unknown) date) 270 0RF unknown) (unknown) (no (unknown) (unknown) 4. 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 Will continue (units (unknown) date) torsemide 20 mg unknown) daily on discharge. (unknown) (no (unknown) (unknown) 40 mg PO BEDTIME (units (unknown) date) Qty: 90 0RF unknown) (unknown) (no (unknown) (unknown) 40 mg PO DAILY (units (unknown) date) Qty: 90 0RF unknown) (unknown) (no (unknown) (unknown) 5 mg PO BID Qty: (units (unknown) date) 180 1RF unknown) (unknown) (no (unknown) (unknown) 5. Hypertension (units (unknown) date) unknown) (unknown) (no (unknown) (unknown) 5. Will resume (units (unknown) date) home losartan 50 mg unknown) daily. (unknown) (no (unknown) (unknown) 50 mg PO DAILY (units (unknown) date) Qty: 90 1RF unknown) (unknown) (no (unknown) (unknown) 6. Conservative (units (unknown) date) management and unknown) encouraged ambulation. (unknown) (no (unknown) (unknown) 6. Constipation (units (unknown) date) with impaction, unknown) improved (unknown) (no (unknown) (unknown) Allergies (units (unkn own) date) unknown) (unknown) (no (unknown) (unknown) [place], [place] (units ( unknown) date) [id number] unknown) (unknown) (no (unknown) (unknown) As directed (units (un known) date) unknown) (unknown) (no (unknown) (unknown) Assessment: (units (un known) date) unknown) (unknown) (no (unknown) (unknown) Comment: (units (unkno wn) date) unknown) (unknown) (no (unknown) (unknown) Comment: APS case (units (unknown) date) for neglect unknown) (unknown) (no (unknown) (unknown) Comment: Failure (units (unknown) date) to thrive, needs unknown) placement? (unknown) (no (unknown) (unknown) Comment: Prior (units (unknown) date) CVA, mild unknown) dysarthria, syncopal episode (unknown) (no (unknown) (unknown) Comment: Prior (units (unknown) date) CVA, syncopal unknown) episode (unknown) (no (unknown) (unknown) Comment: Prior (units (unknown) date) CVA, syncopal unknown) episode, cognitive eval (unknown) (no (unknown) (unknown) Consult to (units (unk nown) date) Dietitian, Adult unknown) Routine (unknown) (no (unknown) (unknown) Consult to (units (unk nown) date) Discharge Planning unknown) Routine (unknown) (no (unknown) (unknown) Consult to [facility] - (units (unknown) 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) Routine (unknown) (no (unknown) (unknown) Consult to (units (unk nown) date) Occupational unknown) Therapy Evaluate + Treat (unknown) (no (unknown) (unknown) Consult to (units (unk nown) date) Physical Therapy unknown) Evaluate + Treat (unknown) (no (unknown) (unknown) Consult to Social (units (unknown) date) Services Routine unknown) (unknown) (no (unknown) (unknown) Consult to Speech (units (unknown) date) Therapy Evaluate + unknown) Treat (unknown) (no (unknown) (unknown) Discharge (units (unkn own) date) Diagnosis: unknown) (unknown) (no (unknown) (unknown) Discharge Summary (units (unknown) date) unknown) (unknown) (no (unknown) (unknown) Discharge (units (unkn own) date) provider: unknown) (unknown) (no (unknown) (unknown) Documented By: EB (units (unknown) date) unknown) (unknown) (no (unknown) (unknown) Documented By: NR (units (unknown) date) unknown) (unknown) (no (unknown) (unknown) Dose Instruction: (units (unknown) date) unknown) (unknown) (no (unknown) (unknown) ED Orders (units (unkn own) date) unknown) (unknown) (no (unknown) (unknown) Echocardiography (units (unknown) date) Report unknown) (unknown) (no (unknown) (unknown) Emergency Report (units (unknown) date) unknown) (unknown) (no (unknown) (unknown) Soo Singh MD (units (unknown) date) unknown) (unknown) (no (unknown) (unknown) Hold Instructions: (units (unknown) date) stopped at unknown) [facility] ([facility]) (no (unknown) (unknown) Hospital Course (units (unknown) date) unknown) (unknown) (no (unknown) (unknown) [facility] (units (unknown) date) unknown) (unknown) (no (unknown) (unknown) [facility] (units (unknown) date) [address] unknown) [place] [id number] (unknown) (no (unknown) (unknown) Lab Results (units (un known) date) unknown) (unknown) (no (unknown) (unknown) Last Admin: (units (un known) date) 03/17/22 22:13 unknown) Dose: 243 mg (unknown) (no (unknown) (unknown) Last Admin: (units (un known) date) 03/18/22 00:06 unknown) Dose: 25 mg (unknown) (no (unknown) (unknown) Last Admin: (units (un known) date) 03/18/22 00:06 unknown) Dose: 5 mg (unknown) (no (unknown) (unknown) Patient unable to (units (unknown) date) walk 200 feet unknown) without stopping to rest. (unknown) (no (unknown) (unknown) Physician (units (unkn own) date) Instructions: unknown) Evaluate and Treat (unknown) (no (unknown) (unknown) Physician (units (unkn own) date) Instructions: unknown) Evaluate and treat (unknown) (no (unknown) (unknown) Plan: (units (unkno wn) date) unknown) (unknown) (no (unknown) (unknown) Previous Rx's (units ( unknown) date) unknown) (unknown) (no (unknown) (unknown) Reason For Exam: (units (unknown) date) malnutrition + no unknown) teeth (unknown) (no (unknown) (unknown) Rx Instructions: (units (unknown) date) unknown) (unknown) (no (unknown) (unknown) See Rx (units (unkno wn) date) Instructions unknown) .ROUTE .MEDSUPPLY Qty: 1 0RF (unknown) (no (unknown) (unknown) See Rx (units (unkno wn) date) Instructions unknown) Sublingual PRN PRN (Reason: Chest Pain) Qty: 30 0RF (unknown) (no (unknown) (unknown) Signed (units (unkno wn) date) unknown) (unknown) (no (unknown) (unknown) Stop: 03/17/22 (units (unknown) date) 21:32 unknown) (unknown) (no (unknown) (unknown) Stop: 03/17/22 (units (unknown) date) 23:33 unknown) (unknown) (no (unknown) (unknown) Summary (units (unkno wn) date) unknown) (unknown) (no (unknown) (unknown) Vital Signs - 8 hr (units (unknown) date) unknown) (unknown) (no (unknown) (unknown) apply to single (units (unknown) date) elbow, wrist or unknown) hand; for hand includes palm/fingers/back of (unknown) (no (unknown) (unknown) (no value) (units (unk nown) date) unknown) (unknown) (no (unknown) (unknown) (DME) Aerochamber (units (unknown) date) MV Spacer unknown) (unknown) (no (unknown) (unknown) (DME) Handicap (units (unknown) date) Parking unknown) (unknown) (no (unknown) (unknown) ADDENDUMAs an (units (unknown) date) addendum to the unknown) assessment and plan portion of this note, (unknown) (no (unknown) (unknown) 01:30 (units (unkno wn) date) unknown) (unknown) (no (unknown) (unknown) 03/17/22 03/17/22 (units (unknown) date) 03/17/22 unknown) Range/Units (unknown) (no (unknown) (unknown) 03/18/22 (units (unkno wn) date) Range/Units unknown) (unknown) (no (unknown) (unknown) 20:07 20:07 22:12 (units (unknown) date) unknown) (unknown) (no (unknown) (unknown) apixaban 5 mg (units ( unknown) date) tablet unknown) (unknown) (no (unknown) (unknown) atorvastatin 40 mg (units (unknown) date) tablet unknown) (unknown) (no (unknown) (unknown) diclofenac sodium (units (unknown) date) 1 % gel unknown) (unknown) (no (unknown) (unknown) gabapentin (units (unk nown) date) [Neurontin] 300 mg unknown) capsule (unknown) (no (unknown) (unknown) hydrocodone-acetam (units (unknown) date) inophen 5-325 mg unknown) tablet (unknown) (no (unknown) (unknown) losartan 50 mg (units (unknown) date) tablet unknown) (unknown) (no (unknown) (unknown) metoprolol (units (unk nown) date) tartrate 25 mg unknown) tablet (unknown) (no (unknown) (unknown) nitroglycerin (units ( unknown) date) [Nitrostat] 0.4 mg unknown) tablet, sublingual (unknown) (no (unknown) (unknown) pantoprazole 40 mg (units (unknown) date) tablet,delayed unknown) release (DR/EC) (unknown) (no (unknown) (unknown) 03/17/22 (units (unkno wn) date) unknown) (unknown) (no (unknown) (unknown) 3. Will continue (units (unknown) date) Eliquis 5 mg bid unknown) for anticoagulation, with Lopressor 12.5 mg (unknown) (no (unknown) (unknown) Medication (units (unk nown) date) Instructions unknown) Recorded (unknown) (no (unknown) (unknown) Patient is awake (units (unknown) date) alert oriented x3. unknown) (unknown) (no (unknown) (unknown) and below (units (unkn own) date) unknown) (unknown) (no (unknown) (unknown) chest pain, st (units (unknown) date) elevation unknown) myocardial infarction and chest pain (unknown) (no (unknown) (unknown) rales, or rhonchi. (units (unknown) date) unknown) (unknown) (no (unknown) (unknown) <Electronically (units (unknown) date) signed by Soo unknown) MD [facility]> (unknown) (no (unknown) (unknown) (12/05/17) (units (unk nown) date) unknown) (unknown) (no (unknown) (unknown) (Aerochamber MV (units (unknown) date) spacer) unknown) (unknown) (no (unknown) (unknown) (Neurontin) (units (un known) date) unknown) (unknown) (no (unknown) (unknown) +---------+? (units (unknown) date) ? unknown) [phone]? +---------+ (unknown) (no (unknown) (unknown) +---------+? (units (unknown) date) ? unknown) Hospital? +---------+ (unknown) (no (unknown) (unknown) + (units (unknown) date) unknown) ---+ (unknown) (no (unknown) (unknown) 00:06 03/18/22 (units (unknown) date) unknown) (unknown) (no (unknown) (unknown) 01:00 (units (unkno wn) date) unknown) (unknown) (no (unknown) (unknown) 02/16/22 21:54 (units (unknown) date) unknown) (unknown) (no (unknown) (unknown) 02/20/22 1321 (units ( unknown) date) unknown) (unknown) (no (unknown) (unknown) 03/17/22 20:07 (units (unknown) date) unknown) (unknown) (no (unknown) (unknown) 03/17/22 21:08 (units (unknown) date) unknown) (unknown) (no (unknown) (unknown) 03/17/22 21:09 (units (unknown) date) unknown) (unknown) (no (unknown) (unknown) 03/18/22 00:22 (units (unknown) date) unknown) (unknown) (no (unknown) (unknown) 03/18/22 01:30 (units (unknown) date) unknown) (unknown) (no (unknown) (unknown) 1. Physical (units (un known) date) debility/deconditio unknown) gelacio (unknown) (no (unknown) (unknown) 1. This is likely (units (unknown) date) a function of unknown) advancing age and sedentary status at home. The (unknown) (no (unknown) (unknown) 1. This is likely (units (unknown) date) a function of unknown) advancing age and sedentary status at home. 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 This likely is (units (unknown) date) contributing unknown) greatly to problem 1. Continue home (unknown) (no (unknown) (unknown) 215-1 (units (unkno wn) date) unknown) (unknown) (no (unknown) (unknown) 21:05 03/18/22 (units (unknown) date) unknown) (unknown) (no (unknown) (unknown) 3. Atrial (units (unkn own) date) fibrillation unknown) (unknown) (no (unknown) (unknown) 3. Will continue (units (unknown) date) Eliquis 5 mg bid unknown) for anticoagulation, with Lopressor 12.5 mg (unknown) (no (unknown) (unknown) 4. 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 Will continue (units (unknown) date) torsemide 20 mg unknown) daily on discharge. (unknown) (no (unknown) (unknown) 5. Hypertension (units (unknown) date) unknown) (unknown) (no (unknown) (unknown) 5. Will resume (units (unknown) date) home losartan 50 mg unknown) daily. (unknown) (no (unknown) (unknown) 6. Conservative (units (unknown) date) management and unknown) encouraged ambulation. (unknown) (no (unknown) (unknown) 6. Constipation (units (unknown) date) with impaction, unknown) improved (unknown) (no (unknown) (unknown) : ? : ? ? ? (units (unknown) date) ? unknown) Phone: [phone]? : ? : (unknown) (no (unknown) (unknown) : ? :? (units (unknown) date) ? [address] ? : ? : (unknown) (no (unknown) (unknown) : ? :? (units (unknown) date) ? unknown) [id number] ? : ? : (unknown) (no (unknown) (unknown) : ? :? (units (unknown) date) ? unknown) [place], [place] ? : ? : (unknown) (no (unknown) (unknown) :Account #: (units (un known) date) [id number]? unknown) Gender: Female ? BSA: 1.7 m2? ? : (unknown) (no (unknown) (unknown) :: 1935? (units (unknown) date) ? Age: unknown) 86 yrs? BP: 184/97 mmHg: (unknown) (no (unknown) (unknown) :Hospital MRN #: (units (unknown) date) [id number] ? ? unknown) ReadingLocation: ? Weight: 128 lb : (unknown) (no (unknown) (unknown) :Name: YAMILKA, (units (unknown) date) JACKIE S? ? ? unknown) Study Date: 02/17/2022 ? Height: 67 in? : (unknown) (no (unknown) (unknown) :Ordering (units (unkn own) date) Physician: ASHA, unknown) DEBRAPerformed By: Lyly Casanova? : (unknown) (no (unknown) (unknown) :Reason For Study: (units (unknown) date) CVA? unknown) ? : (unknown) (no (unknown) (unknown) :Referring: BARRY, (units (unknown) date) ELIANA ? unknown) ? : (unknown) (no (unknown) (unknown) ? (units (unkno wn) date) unknown) (unknown) (no (unknown) (unknown) ? (units (unknown) date) ? unknown) ? Date of (unknown) (no (unknown) (unknown) ? (units (unknown) date) ? unknown) [place] (unknown) (no (unknown) (unknown) ? (units (unknown) date) Electronically unknown) signed by: Charlie Clemente on 02/17/2022 09:11 (unknown) (no (unknown) (unknown) ? (units (unkno wn) date) unknown) (unknown) (no (unknown) (unknown) ? (units (unknown) date) ? unknown) sev ratio: 0.49 (unknown) (no (unknown) (unknown) ? (units (unknown) date) ? unknown) Echocardiogram Report (unknown) (no (unknown) (unknown) ALT (<35) IU/L (units (unknown) date) unknown) (unknown) (no (unknown) (unknown) ALT 10 (<35) (units (unknown) date) IU/L unknown) (unknown) (no (unknown) (unknown) AST (14-36) (units ( unknown) date) IU/L unknown) (unknown) (no (unknown) (unknown) AST 26 (14-36) (units (unknown) date) IU/L unknown) (unknown) (no (unknown) (unknown) Abdominal pain (units (unknown) date) unknown) (unknown) (no (unknown) (unknown) Accession Number: (units (unknown) date) [id number] ?? unknown) (unknown) (no (unknown) (unknown) Acct:[id number] (units (unknown) date) unknown) (unknown) (no (unknown) (unknown) Acute pancreatitis (units (unknown) date) unknown) (unknown) (no (unknown) (unknown) Addendum (units (unkno wn) date) Documented By: unknown) (unknown) (no (unknown) (unknown) Addendum Signed (units (unknown) date) By: unknown) (unknown) (no (unknown) (unknown) Age/Sex: 86 / F (units (unknown) date) unknown) (unknown) (no (unknown) (unknown) Age/Sex: 86 / F (units (unknown) date) unknown) (unknown) (no (unknown) (unknown) Albumin (units (o wn) date) (3.5-5.0) g/dL unknown) (unknown) (no (unknown) (unknown) Albumin 4.1 (units ( unknown) date) (3.5-5.0) g/dL unknown) (unknown) (no (unknown) (unknown) Albumin/Globulin (units (unknown) date) Ratio (1.0-2.8) unknown) (unknown) (no (unknown) (unknown) Albumin/Globulin (units (unknown) date) Ratio 1.2 unknown) (1.0-2.8) (unknown) (no (unknown) (unknown) Alkaline (units (o wn) date) Phosphatase unknown) (38-126) U/L (unknown) (no (unknown) (unknown) Alkaline (units (o wn) date) Phosphatase 116 unknown) (38-126) U/L (unknown) (no (unknown) (unknown) Allergy/AdvReac (units (unknown) date) Type Severity unknown) Reaction Status Date / Time (unknown) (no (unknown) (unknown) Anesthesia (units (unk nown) date) unknown) (unknown) (no (unknown) (unknown) Anxiety (units (unkno wn) date) unknown) (unknown) (no (unknown) (unknown) Ao V2 VTI: 24.6 cm (units (unknown) date) ? unknown) SALO(V,D): 1.4 cm2 (unknown) (no (unknown) (unknown) Ao V2 max: 137.4 (units (unknown) date) cm/sec? unknown) LVOT Max Benjamin: 61.4 cm/sec (unknown) (no (unknown) (unknown) Ao V2 mean: 98.4 (units (unknown) date) cm/sec? LV unknown) V1 max P.5 mmHg (unknown) (no (unknown) (unknown) Ao max P.6 (units (unknown) date) mmHg? unknown) LV V1 VTI: 11.9 cm (unknown) (no (unknown) (unknown) Ao mean P.3 (units (unknown) date) mmHg ? unknown) SALO(I,D): 1.5 cm2 (unknown) (no (unknown) (unknown) Aortic Valve: ? (units (unknown) date) The aortic valve is unknown) mildly calcified. 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 The left (units (unknown) date) atrium is severely unknown) dilated. The right atrium is severely (unknown) (no (unknown) (unknown) Atrial (units (unkno wn) date) fibrillation rate unknown) [address] elevation or depression (unknown) (no (unknown) (unknown) BACK: No flank (units (unknown) date) tenderness. unknown) (unknown) (no (unknown) (unknown) BUN (7-17) (units (u nknown) date) mg/dL unknown) (unknown) (no (unknown) (unknown) BUN 18 H (units (unk nown) date) (7-17) mg/dL unknown) (unknown) (no (unknown) (unknown) BUN/Creatinine (units (unknown) date) Ratio (6-) unknown) (unknown) (no (unknown) (unknown) BUN/Creatinine (units (unknown) date) Ratio 20.7 unknown) (-22) (unknown) (no (unknown) (unknown) Baso # (Auto) (units ( unknown) date) (0-100) /uL unknown) (unknown) (no (unknown) (unknown) Baso # (Auto) 0 (units (unknown) date) (0-100) /uL unknown) (unknown) (no (unknown) (unknown) Baso % (Auto) (units ( unknown) date) (0-2) % unknown) (unknown) (no (unknown) (unknown) Baso % (Auto) 0.7 (units (unknown) date) (0-2) % unknown) (unknown) (no (unknown) (unknown) Blood Pressure (units (unknown) date) 201/119 H 03/17/22 unknown) 21:05 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) unknown) (unknown) (no (unknown) (unknown) CARDIOVASCULAR: (units (unknown) date) Positive for chest unknown) pain, negative for palpitations (unknown) (no (unknown) (unknown) CARDIOVASCULAR: (units (unknown) date) Regular rate and unknown) rhythm without murmurs (unknown) (no (unknown) (unknown) CK-MB (CK-2) (units (u nknown) date) unknown) (unknown) (no (unknown) (unknown) CK-MB (CK-2) TNP (units (unknown) date) unknown) (unknown) (no (unknown) (unknown) CK-MB (CK-2) Rel (units (unknown) date) Index unknown) (unknown) (no (unknown) (unknown) CK-MB (CK-2) Rel (units (unknown) date) Index TNP unknown) (unknown) (no (unknown) (unknown) COVID19 -Nasal (units (unknown) date) RAPID/Pre-Proc Stat unknown) (unknown) (no (unknown) (unknown) CT of the head did (units (unknown) date) report prior unknown) cortical and subcortical encephalomalacia on the (unknown) (no (unknown) (unknown) Calcified nodule (units (unknown) date) unknown) (unknown) (no (unknown) (unknown) Calcium (units (unkno wn) date) (8.4-10.2) mg/dL unknown) (unknown) (no (unknown) (unknown) Calcium 9.1 (units ( unknown) date) (8.4-10.2) mg/dL unknown) (unknown) (no (unknown) (unknown) Carbon Dioxide (units (unknown) date) (22-32) mmol/L unknown) (unknown) (no (unknown) (unknown) Carbon Dioxide (units (unknown) date) 27 (22-32) unknown) mmol/L (unknown) (no (unknown) (unknown) Jackie Prather (units (unknown) date) is an 86-year-old unknown) female with a history of chronic abdominal (unknown) (no (unknown) (unknown) 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 (unknown) (no (unknown) (unknown) Cervical cancer, (units (unknown) date) FIGO stage I unknown) (unknown) (no (unknown) (unknown) Chief Complaint: (units (unknown) date) Chest Pain unknown) (unknown) (no (unknown) (unknown) Chief complaint: (units (unknown) date) Decreased LOC unknown) (unknown) (no (unknown) (unknown) Chloride (units (unkno wn) date) (98-107) mmol/L unknown) (unknown) (no (unknown) (unknown) Chloride 103 (units (unknown) date) (98-107) mmol/L unknown) (unknown) (no (unknown) (unknown) Cholelithiasis (units (unknown) date) unknown) (unknown) (no (unknown) (unknown) Chronic back pain (units (unknown) date) unknown) (unknown) (no (unknown) (unknown) Comparison is made (units (unknown) date) with the unknown) echocardiogram of 08/17/2019. The patient was in (unknown) (no (unknown) (unknown) Complete Blood (units (unknown) date) Count AUTO DIFF unknown) Stat (unknown) (no (unknown) (unknown) Comprehensive (units ( unknown) date) Metabolic Panel unknown) Stat (unknown) (no (unknown) (unknown) Consult to [facility] - (units (unknown) 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) Stat (unknown) (no (unknown) (unknown) Consults: (units (unkn own) date) unknown) (unknown) (no (unknown) (unknown) Course (units (unkno wn) date) unknown) (unknown) (no (unknown) (unknown) Course Narrative: (units (unknown) date) unknown) (unknown) (no (unknown) (unknown) Creatinine (units (unk nown) date) (0.52-1.04) mg/dL unknown) (unknown) (no (unknown) (unknown) Creatinine 0.87 (units (unknown) date) (0.52-1.04) mg/dL unknown) (unknown) (no (unknown) (unknown) : 1935 (units (unknown) date) Acct:[id number] unknown) (unknown) (no (unknown) (unknown) : 1935 (units (unknown) date) unknown) (unknown) (no (unknown) (unknown) Date of Service: (units (unknown) date) 02/17/22 unknown) (unknown) (no (unknown) (unknown) Date of admission: (units (unknown) date) unknown) (unknown) (no (unknown) (unknown) Departure (units (unkn own) date) unknown) (unknown) (no (unknown) (unknown) Developmental (units ( unknown) date) disorder unknown) (unknown) (no (unknown) (unknown) Diarrhea (units (unkno wn) date) unknown) (unknown) (no (unknown) (unknown) Differential (units (u nknown) date) Diagnosis unknown) (unknown) (no (unknown) (unknown) Differential (units (un known) date) diagnosis: Likely unknown) stable angina, unstable angina pectoris, atypical (unknown) (no (unknown) (unknown) Discharge (units (unkn own) date) Assessment + Plan unknown) (unknown) (no (unknown) (unknown) Discharge Date: (units (unknown) date) 02/19/22 unknown) (unknown) (no (unknown) (unknown) Discharge Plan (units (unknown) date) unknown) (unknown) (no (unknown) (unknown) Discharge (units (unkn own) date) Providers unknown) (unknown) (no (unknown) (unknown) Discontinued (units (u nknown) date) Medications unknown) (unknown) (no (unknown) (unknown) Doppler (units (unkno wn) date) Measurements + unknown) Calculations (unknown) (no (unknown) (unknown) E/E' lat: 10.4 (units (unknown) date) unknown) (unknown) (no (unknown) (unknown) E/E' med: 16.6 ? ? (units (unknown) date) ? PA unknown) mean P.8 mmHg (unknown) (no (unknown) (unknown) E/e' average: 13.5 (units (unknown) date) unknown) (unknown) (no (unknown) (unknown) ECG Data (units (unkno wn) date) unknown) (unknown) (no (unknown) (unknown) EKG-12 Lead Stat (units (unknown) date) unknown) (unknown) (no (unknown) (unknown) ENT: Mucous (units (u nknown) date) membranes moist. unknown) (unknown) (no (unknown) (unknown) ER Physician: (units ( unknown) date) Jossue Salcido MD unknown) (unknown) (no (unknown) (unknown) EXTREMITIES: No (units (unknown) date) gross deformities. unknown) (unknown) (no (unknown) (unknown) EYES: Pupils equal (units (unknown) date) round No scleral unknown) icterus. (unknown) (no (unknown) (unknown) Eos # (Auto) (units (u nknown) date) (0-450) /uL unknown) (unknown) (no (unknown) (unknown) Eos # (Auto) 0 (units (unknown) date) (0-450) /uL unknown) (unknown) (no (unknown) (unknown) Eos % (Auto) (units (u nknown) date) (2-4) % unknown) (unknown) (no (unknown) (unknown) Eos % (Auto) 0.8 (units (unknown) date) L (2-4) % unknown) (unknown) (no (unknown) (unknown) Essential (units (unkn own) date) hypertension unknown) (09/28/12) (unknown) (no (unknown) (unknown) Estimated GFR > (units (unknown) date) 60 (>60) mL/min unknown) (unknown) (no (unknown) (unknown) Estimated GFR (units ( unknown) date) (>60) mL/min unknown) (unknown) (no (unknown) (unknown) Exam (units (unkno wn) date) unknown) (unknown) (no (unknown) (unknown) Exam Narrative: (units (unknown) date) unknown) (unknown) (no (unknown) (unknown) FS: 18.5 %? (units (unknown) date) ? unknown) ? asc Aorta Diam: 3.2 cm (unknown) (no (unknown) (unknown) Failure to thrive (units (unknown) date) in adult unknown) (unknown) (no (unknown) (unknown) Fibrocystic breast (units (unknown) date) disease unknown) (unknown) (no (unknown) (unknown) GASTROINTESTINAL: (units (unknown) date) Abdomen soft, unknown) non-tender (unknown) (no (unknown) (unknown) GASTROINTESTINAL: (units (unknown) date) Denies nausea, unknown) vomiting, abdominal pain (unknown) (no (unknown) (unknown) GENERAL: Denies (units (unknown) date) chills, fatigue, unknown) malaise, fever, sweats. (unknown) (no (unknown) (unknown) GENERAL: in no (units (unknown) date) distress, not toxic unknown) not dyspneic (unknown) (no (unknown) (unknown) GERD (units (unkno wn) date) (gastroesophageal unknown) reflux disease) (unknown) (no (unknown) (unknown) : Denies (units (unk nown) date) dysuria, frequency, unknown) hematuria (unknown) (no (unknown) (unknown) Alyssa Robison MD (units (unknown) date) unknown) (unknown) (no (unknown) (unknown) General (units (unkno wn) date) unknown) (unknown) (no (unknown) (unknown) GenericComposite[?? (units (unknown) date) ? unknown) ? SALO indexed to BSA (cm^2/m^2): 0.90 ] (unknown) (no (unknown) (unknown) GenericComposite[L (units (unknown) date) V cage. unknown) diameter/BSA (cm/m^2): 2.9 ] (unknown) (no (unknown) (unknown) GenericComposite[L (units (unknown) date) V sys. diameter/BSA unknown) (cm/m^2): 2.4 ] (unknown) (no (unknown) (unknown) GenericComposite[P (units (unknown) date) lt Count unknown) (150-400) X10^3/uL ] (unknown) (no (unknown) (unknown) GenericComposite[P (units (unknown) date) lt Count 250 unknown) (150-400) X10^3/uL ] (unknown) (no (unknown) (unknown) GenericComposite[R (units (unknown) date) BC (4.0-5.2) unknown) X10^6/uL ] (unknown) (no (unknown) (unknown) GenericComposite[R (units (unknown) date) BC 4.32 unknown) (4.0-5.2) X10^6/uL ] (unknown) (no (unknown) (unknown) GenericComposite[W (units (unknown) date) BC (4.5-11.0) unknown) X10^3/uL ] (unknown) (no (unknown) (unknown) GenericComposite[W (units (unknown) date) BC 6.2 unknown) (4.5-11.0) X10^3/uL ] (unknown) (no (unknown) (unknown) Globulin (units (unkno wn) date) (1.7-4.1) g/dL unknown) (unknown) (no (unknown) (unknown) Globulin 3.5 (units (unknown) date) (1.7-4.1) g/dL unknown) (unknown) (no (unknown) (unknown) Glucose (80-110) (units (unknown) date) mg/dL unknown) (unknown) (no (unknown) (unknown) Glucose 99 (units (u nknown) date) (80-110) mg/dL unknown) (unknown) (no (unknown) (unknown) Great Vessels: ? (units (unknown) date) The aortic root is unknown) normal size. The dimensions of the (unknown) (no (unknown) (unknown) HEAD: (units (unkno wn) date) Normocephalic. unknown) (unknown) (no (unknown) (unknown) HEENT: Denies (units ( unknown) date) sinus pain, ear unknown) pain, sore throat (unknown) (no (unknown) (unknown) HPI - Chest Pain (units (unknown) date) unknown) (unknown) (no (unknown) (unknown) HPI narrative: (units (unknown) date) unknown) (unknown) (no (unknown) (unknown) Handicap Parking (units (unknown) date) #1 ea 01/12/19 unknown) (unknown) (no (unknown) (unknown) Soo Singh MD (units (unknown) date) unknown) (unknown) (no (unknown) (unknown) Hct (36-46) % (units (unknown) date) unknown) (unknown) (no (unknown) (unknown) Hct 39.2 (units (unkn own) date) (36-46) % unknown) (unknown) (no (unknown) (unknown) Hgb (12.0-16.0) (units (unknown) date) g/dL unknown) (unknown) (no (unknown) (unknown) Hgb 13.0 (units (unkn own) date) (12.0-16.0) g/dL unknown) (unknown) (no (unknown) (unknown) History of Present (units (unknown) date) Illness unknown) (unknown) (no (unknown) (unknown) History of colon (units (unknown) date) polyps (09/28/12) unknown) (unknown) (no (unknown) (unknown) History of left (units (unknown) date) breast cancer unknown) (-2008) (unknown) (no (unknown) (unknown) Hyperlipidemia (units (unknown) date) unknown) 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 unknown) ? RA long axis: 6.0 cm (unknown) (no (unknown) (unknown) LA A4 area: 30.0 (units (unknown) date) cm2? unknown) ? RA area: 23.9 cm2 (unknown) (no (unknown) (unknown) LA length (vol): (units (unknown) date) 6.6 cm ? unknown) ? RA vol: 80.6 ml (unknown) (no (unknown) (unknown) LA vol index: 63.5 (units (unknown) date) ml/m2? unknown) ? IVC diam: 1.4 cm (unknown) (no (unknown) (unknown) LA vol: 106.2 ml? (units (unknown) date) ? unknown) ? RA : 48.2 ml/m2 (unknown) (no (unknown) (unknown) LVIDd: 4.9 cm ? ? (units (unknown) date) ? unknown) ? LVOT diam: 2.0 cm (unknown) (no (unknown) (unknown) LVIDs: 4.0 cm ? ? (units (unknown) date) ? unknown) ? Ao root diam: 3.2 cm (unknown) (no (unknown) (unknown) LVPWd: 0.96 cm (units (unknown) date) unknown) (unknown) (no (unknown) (unknown) Lab Data (units (unkno wn) date) unknown) (unknown) (no (unknown) (unknown) Labs: (units (unkno wn) date) unknown) (unknown) (no (unknown) (unknown) Lat Peak E[place]: (units (unknown) date) 9.3 cm/sec? ? ? PA unknown) pr(Accel): 44.7 mmHg (unknown) (no (unknown) (unknown) Left Ventricle: ? (units (unknown) date) The left ventricle unknown) is normal in size and wall thickness. The (unknown) (no (unknown) (unknown) Limitations: (units (u nknown) date) altered mental unknown) status (unknown) (no (unknown) (unknown) Lipase (23-300) (units (unknown) date) U/L unknown) (unknown) (no (unknown) (unknown) Lipase 45 (units (un known) date) (23-300) U/L unknown) (unknown) (no (unknown) (unknown) Lipase Stat (units (un known) date) unknown) (unknown) (no (unknown) (unknown) Loc: [facility] (units (unkno wn) date) unknown) (unknown) (no (unknown) (unknown) Lymph # (Auto) (units (unknown) date) (4100-1401) /uL unknown) (unknown) (no (unknown) (unknown) Lymph # (Auto) (units (unknown) date) 1300 (9468-1879) unknown) /uL (unknown) (no (unknown) (unknown) Lymph % (Auto) (units (unknown) date) (25-40) % unknown) (unknown) (no (unknown) (unknown) Lymph % (Auto) (units (unknown) date) 20.2 L (25-40) unknown) % (unknown) (no (unknown) (unknown) [id number] (units (unk nown) date) unknown) (unknown) (no (unknown) (unknown) MCA territory and (units (unknown) date) suggested if there unknown) were concerned of an acute on chronic CVA (unknown) (no (unknown) (unknown) MCH (26-34) PG (units (unknown) date) unknown) (unknown) (no (unknown) (unknown) MCH 30.1 (units (unkn own) date) (26-34) PG unknown) (unknown) (no (unknown) (unknown) MCHC (30-36) % (units (unknown) date) unknown) (unknown) (no (unknown) (unknown) MCHC 33.2 (units (unk nown) date) (30-36) % unknown) (unknown) (no (unknown) (unknown) MCV (80-100) fL (units (unknown) date) unknown) (unknown) (no (unknown) (unknown) MCV 90.9 (units (unkn own) date) (80-100) fL unknown) (unknown) (no (unknown) (unknown) MDM - Chest Pain (units (unknown) date) unknown) (unknown) (no (unknown) (unknown) MMode/2D (units (unkno wn) date) Measurements + unknown) Calculations (unknown) (no (unknown) (unknown) MR#: [id number] (units (unknown) date) unknown) (unknown) (no (unknown) (unknown) MUSCULOSKELETAL: (units (unknown) date) denies muscle or unknown) bony pain (unknown) (no (unknown) (unknown) MV A max benjamin: 2.1 (units (unknown) date) cm/sec ? TR unknown) max P.8 mmHg (unknown) (no (unknown) (unknown) MV E max benjamin: 96.4 (units (unknown) date) cm/sec? TR unknown) max benjamin: 228.2 cm/sec (unknown) (no (unknown) (unknown) MV E/A: 46.5 ? ? ? (units (unknown) date) ? PA V2 unknown) max: 95.2 cm/sec (unknown) (no (unknown) (unknown) MV dec time: 0.23 (units (unknown) date) sec unknown) (unknown) (no (unknown) (unknown) Magnesium (units (unkn own) date) (1.6-2.3) mg/dL unknown) (unknown) (no (unknown) (unknown) Magnesium 2.0 (units (unknown) date) (1.6-2.3) mg/dL unknown) (unknown) (no (unknown) (unknown) Magnesium Stat (units (unknown) date) unknown) (unknown) (no (unknown) (unknown) Measles (units (unkno wn) date) unknown) (unknown) (no (unknown) (unknown) Med Peak E' Benjamin: (units (unknown) date) 5.8 cm/sec? ? ? 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 (units (unknown) date) There is moderate unknown) mitral annular calcification. The mitral (unknown) (no (unknown) (unknown) Mode of arrival: (units (unknown) date) EMS unknown) (unknown) (no (unknown) (unknown) [place] # (Auto) (units ( unknown) date) (0-900) /uL unknown) (unknown) (no (unknown) (unknown) [place] # (Auto) 400 (units (unknown) date) (0-900) /uL unknown) (unknown) (no (unknown) (unknown) [place] % (Auto) (units ( unknown) date) (3-14) % unknown) (unknown) (no (unknown) (unknown) [place] % (Auto) 7.2 (units (unknown) date) (3-14) % unknown) (unknown) (no (unknown) (unknown) NECK: Trachea (units ( unknown) date) midline. unknown) (unknown) (no (unknown) (unknown) NEURO: AOx4. (units (u nknown) date) unknown) (unknown) (no (unknown) (unknown) NEUROLOGIC: Denies (units (unknown) date) weakness, numbness unknown) (unknown) (no (unknown) (unknown) Narrative (units (unkn own) date) unknown) (unknown) (no (unknown) (unknown) Narrative: (units (unk nown) date) unknown) (unknown) (no (unknown) (unknown) Narrative: (units (unk nown) date) unknown) (unknown) (no (unknown) (unknown) Neut # (Auto) (units ( unknown) date) (1774-0885) /uL unknown) (unknown) (no (unknown) (unknown) Neut # (Auto) (units ( unknown) date) 4400 (0762-7310) unknown) /uL (unknown) (no (unknown) (unknown) Neut % (Auto) (units ( unknown) date) (50-75) % unknown) (unknown) (no (unknown) (unknown) Neut % (Auto) (units ( unknown) date) 71.1 (50-75) % unknown) (unknown) (no (unknown) (unknown) No Action (units (unkn own) date) unknown) (unknown) (no (unknown) (unknown) No chest pain (units ( unknown) date) here. Blood unknown) pressure 170/89. It has improved. Reviewed results (unknown) (no (unknown) (unknown) No new issues (units ( unknown) date) during course of unknown) stay (unknown) (no (unknown) (unknown) No recent illness (units (unknown) date) fever chills cough unknown) cold or congestion. No urinary complaints. (unknown) (no (unknown) (unknown) Ordered: (units (unkno wn) date) unknown) (unknown) (no (unknown) (unknown) Ordering Provider: (units (unknown) date) Eliana Barry unknown) (unknown) (no (unknown) (unknown) Orders (units (unkno wn) date) unknown) (unknown) (no (unknown) (unknown) Osteoarthritis of (units (unknown) date) knees, bilateral unknown) (unknown) (no (unknown) (unknown) Overall no (units (unk nown) date) significant change unknown) from prior exam. However, there the MR and TR (unknown) (no (unknown) (unknown) Oxygen Delivery (units (unknown) date) Method 03/17/22 unknown) 21:05 (unknown) (no (unknown) (unknown) Oxygen Delivery (units (unknown) date) Method Room Air unknown) (unknown) (no (unknown) (unknown) PSYCH: Not (units (un known) date) anxious, is unknown) cooperative (unknown) (no (unknown) (unknown) Patient (units (unkno wn) date) Disposition: Home unknown) (unknown) (no (unknown) (unknown) Patient History (units (unknown) date) unknown) (unknown) (no (unknown) (unknown) Patient brought (units (unknown) date) here by ambulance unknown) from home. Complaints of chest pain relief (unknown) (no (unknown) (unknown) Patient: (units (unkno wn) date) Jackie Prather unknown) MR#: (unknown) (no (unknown) (unknown) Patient: (units (unkno wn) date) Jackie Prather unknown) (unknown) (no (unknown) (unknown) Pericardium/ (units (u nknown) date) Pleura ? There is unknown) no pericardial effusion. 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 (units (unknown) date) The pulmonic valve unknown) is not well seen, but is grossly normal. (unknown) (no (unknown) (unknown) Pulse Oximetry 96 (units (unknown) date) 03/17/22 21:05 unknown) (unknown) (no (unknown) (unknown) Pulse Oximetry 96 (units (unknown) date) unknown) (unknown) (no (unknown) (unknown) Pulse Rate 118 H (units (unknown) date) 03/17/22 21:05 unknown) (unknown) (no (unknown) (unknown) Pulse Rate 118 H (units (unknown) date) 98 H 82 unknown) (unknown) (no (unknown) (unknown) RDW (11.6-14.8) (units (unknown) date) % unknown) (unknown) (no (unknown) (unknown) RDW 14.7 (units (unkn own) date) (11.6-14.8) % unknown) (unknown) (no (unknown) (unknown) RESPIRATORY: Clear (units (unknown) date) to auscultation. unknown) Breath sounds equal bilaterally. No wheezes, (unknown) (no (unknown) (unknown) RESPIRATORY: (units (u nknown) date) Denies dyspnea, unknown) cough (unknown) (no (unknown) (unknown) ROS Unobtainable: (units (unknown) date) All systems unknown) reviewed + are unremarkable except as noted in HPI (unknown) (no (unknown) (unknown) RVD1 (basal): 3.8 (units (unknown) date) cm unknown) (unknown) (no (unknown) (unknown) RVD2 (mid): 3.8 cm (units (unknown) date) unknown) (unknown) (no (unknown) (unknown) Reading (units (unkno wn) date) Physician:AM unknown) (unknown) (no (unknown) (unknown) Reevaluation #1: (units (unknown) date) unknown) (unknown) (no (unknown) (unknown) Reevaluation(s) (units (unknown) date) unknown) (unknown) (no (unknown) (unknown) Related Data (units (u nknown) date) unknown) (unknown) (no (unknown) (unknown) Respiratory Rate (units (unknown) date) 20 03/17/22 21:05 unknown) (unknown) (no (unknown) (unknown) Respiratory Rate (units (unknown) date) 20 unknown) (unknown) (no (unknown) (unknown) Result diagrams: (units (unknown) date) unknown) (unknown) (no (unknown) (unknown) Review of Systems (units (unknown) date) unknown) (unknown) (no (unknown) (unknown) Right Ventricle: ? (units (unknown) date) The right ventricle unknown) is normal size. Right ventricular (unknown) (no (unknown) (unknown) Right ventricular (units (unknown) date) systolic function unknown) is mild to moderately reduced. (unknown) (no (unknown) (unknown) SARS-CoV-2 (PCR) (units (unknown) date) Negative unknown) (Negative) (unknown) (no (unknown) (unknown) SARS-CoV-2 (PCR) (units (unknown) date) (Negative) unknown) (unknown) (no (unknown) (unknown) SKIN: Warm and (units (unknown) date) dry unknown) (unknown) (no (unknown) (unknown) SKIN: Denies rash, (units (unknown) date) skin lesions unknown) (unknown) (no (unknown) (unknown) SV(LVOT): 36.8 ml (units (unknown) date) unknown) (unknown) (no (unknown) (unknown) Service: 02/16/22 (units (unknown) date) unknown) (unknown) (no (unknown) (unknown) She presented (units ( unknown) date) today with EMS and unknown) she was very confused and apparently covered (unknown) (no (unknown) (unknown) She told the nurse (units (unknown) date) that she lives in unknown) an apartment that is connected to the house (unknown) (no (unknown) (unknown) Signed By: (units (unk nown) date) unknown) (unknown) (no (unknown) (unknown) Smoking Status: (units (unknown) date) Never smoker unknown) (unknown) (no (unknown) (unknown) Smoking Status: (units (unknown) date) Never smoker unknown) (unknown) (no (unknown) (unknown) Social History (units (unknown) date) (Reviewed 03/17/22 unknown) @ 21:36 by Jossue Salcido MD) (unknown) (no (unknown) (unknown) Sodium (137-145) (units (unknown) date) mmol/L unknown) (unknown) (no (unknown) (unknown) Sodium 140 (units (u nknown) date) (137-145) mmol/L unknown) (unknown) (no (unknown) (unknown) Source: patient (units (unknown) date) unknown) (unknown) (no (unknown) (unknown) Speech and (units (unk nown) date) language unknown) 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 (09/28/12) (unknown) (no (unknown) (unknown) Stated Complaint: (units (unknown) date) Chest Pain, Welfare unknown) check (unknown) (no (unknown) (unknown) Status post (units (un known) date) arthroscopy unknown) (unknown) (no (unknown) (unknown) Status post biopsy (units (unknown) date) () unknown) (unknown) (no (unknown) (unknown) Status post breast (units (unknown) date) lumpectomy (-2008) unknown) (unknown) (no (unknown) (unknown) Status post (units (un known) date) cholecystectomy unknown) (unknown) (no (unknown) (unknown) 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 (unknown) (no (unknown) (unknown) Status post (units (un known) date) hysterectomy unknown) (-2009) (unknown) (no (unknown) (unknown) Substance Use (units ( unknown) date) Type: does not use unknown) (unknown) (no (unknown) (unknown) Surgical History (units (unknown) date) (Reviewed 03/17/22 unknown) @ 21:36 by Jossue Salcido MD) (unknown) (no (unknown) (unknown) 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 (unknown) (no (unknown) (unknown) The ejection (units (u nknown) date) fraction is unknown) estimated to be 35-40%. (unknown) (no (unknown) (unknown) The inferior and (units (unknown) date) inferposterior are unknown) relatively more hypokinetic, but overall (unknown) (no (unknown) (unknown) The left atrium is (units (unknown) date) severely dilated. unknown) (unknown) (no (unknown) (unknown) The left ventricle (units (unknown) date) is normal in size unknown) and wall thickness. (unknown) (no (unknown) (unknown) The pulmonary (units ( unknown) date) hypertension is unknown) improved from prior exam. (unknown) (no (unknown) (unknown) The right atrium (units (unknown) date) is severely unknown) dilated. (unknown) (no (unknown) (unknown) The right (units (unkn own) date) ventricular unknown) systolic pressure is estimated to be at least 29 mmHg (unknown) (no (unknown) (unknown) There is mild (units ( unknown) date) mitral unknown) regurgitation. (unknown) (no (unknown) (unknown) There is mild to (units (unknown) date) moderate global unknown) hypokinesis of the left ventricle. (unknown) (no (unknown) (unknown) There is mild (units ( unknown) date) tricuspid unknown) regurgitation. The right ventricular systolic pressure (unknown) (no (unknown) (unknown) There is moderate (units (unknown) date) mitral annular unknown) calcification. (unknown) (no (unknown) (unknown) There is no (units (un known) date) pulmonic valvular unknown) regurgitation. (unknown) (no (unknown) (unknown) Time Seen by (units (u nknown) date) Provider: 03/17/22 unknown) 21:24 (unknown) (no (unknown) (unknown) Time: 02:33 (units (un known) date) unknown) (unknown) (no (unknown) (unknown) Total Bilirubin (units (unknown) date) (0.2-1.3) mg/dL unknown) (unknown) (no (unknown) (unknown) Total Bilirubin (units (unknown) date) 0.9 (0.2-1.3) unknown) mg/dL (unknown) (no (unknown) (unknown) Total Creatine (units (unknown) date) Kinase < 20 L unknown) (30-135) U/L (unknown) (no (unknown) (unknown) Total Creatine (units (unknown) date) Kinase (30-135) unknown) U/L (unknown) (no (unknown) (unknown) Total Protein (units ( unknown) date) (6.3-8.2) g/dL unknown) (unknown) (no (unknown) (unknown) Total Protein (units ( unknown) date) 7.6 (6.3-8.2) unknown) g/dL (unknown) (no (unknown) (unknown) Tricuspid Valve: ? (units (unknown) date) The tricuspid valve unknown) is normal in structure and function. (unknown) (no (unknown) (unknown) Troponin + CK (units ( unknown) date) Cardiac Panel Stat unknown) (unknown) (no (unknown) (unknown) Troponin I < (units (unknown) date) 0.012 unknown) (0.01-0.034) ng/mL (unknown) (no (unknown) (unknown) Troponin I < (units ( unknown) date) 0.012 (0.01-0.034) unknown) ng/mL (unknown) (no (unknown) (unknown) Troponin I Stat (units (unknown) date) unknown) (unknown) (no (unknown) (unknown) Vital Signs (units (un known) date) unknown) (unknown) (no (unknown) (unknown) Vital signs: (units (u nknown) date) unknown) (unknown) (no (unknown) (unknown) Written by (units (unk nown) date) admitting provider. unknown) (unknown) (no (unknown) (unknown) XR chest 1V Stat (units (unknown) date) unknown) (unknown) (no (unknown) (unknown) [Embedded Image (units (unknown) date) Not Available] unknown) (unknown) (no (unknown) (unknown) (units (unknown) date) unknown) ___ (unknown) (no (unknown) (unknown) acute (units (unkno wn) date) diverticulitis.? unknown) WBC is unremarkable, she has a creatinine bump of 1.06 (unknown) (no (unknown) (unknown) alcohol intake (units (unknown) date) frequency: unknown) holidays/special occasions only (unknown) (no (unknown) (unknown) alcohol intake: (units (unknown) date) never unknown) (unknown) (no (unknown) (unknown) and Doppler was (units (unknown) date) performed. The unknown) study quality was technically adequate. (unknown) (no (unknown) (unknown) and apparently that (units (unknown) date) is been an issue.? unknown) Review of case management note written on (unknown) (no (unknown) (unknown) apixaban 5 mg (units ( unknown) date) tablet 5 mg PO BID unknown) #180 tabs 03/11/21 (unknown) (no (unknown) (unknown) are now mild (units (u nknown) date) instead of unknown) moderate. (unknown) (no (unknown) (unknown) ascending aorta (units (unknown) date) are normal. The IVC unknown) is of normal diameter and collapses less (unknown) (no (unknown) (unknown) atherosclerotic (units (unknown) date) plaque protecting unknown) meds. (unknown) (no (unknown) (unknown) atorvastatin 40 mg (units (unknown) date) tablet 40 mg PO unknown) BEDTIME #90 tabs 12/11/21 (unknown) (no (unknown) (unknown) atrial (units (unkno wn) date) fibrillation with unknown) heart rates between 54-75 bpm during the exam. (unknown) (no (unknown) (unknown) based on an (units (un known) date) estimated right unknown) atrial pressure of 8 mm Hg. (unknown) (no (unknown) (unknown) because supposedly (units (unknown) date) her son found her unknown) passed out on the ?marcell potty'.? Patient (unknown) (no (unknown) (unknown) butter cookies and (units (unknown) date) then has maybe a unknown) hot meal, usually hamburger.? (unknown) (no (unknown) (unknown) by cab.? She was (units (unknown) date) apparently seen in unknown) the emergency department on February 14 and at (unknown) (no (unknown) (unknown) chest abdomen and (units (unknown) date) pelvis reported a unknown) small right upper lobe 0.4 cm pulmonary (unknown) (no (unknown) (unknown) class 2 (06/05/11) (units (unknown) date) unknown) (unknown) (no (unknown) (unknown) contaminated and a (units (unknown) date) culture was not unknown) able to be grown or specified. (unknown) (no (unknown) (unknown) daily for rate (units (unknown) date) control. unknown) (unknown) (no (unknown) (unknown) diclofenac sodium (units (unknown) date) 1 % topical gel 2 g unknown) topical QID #100 grams 02/03/22 (unknown) (no (unknown) (unknown) dilated. There is (units (unknown) date) no Doppler evidence unknown) for an interatrial shunt. (unknown) (no (unknown) (unknown) discharge note (units (unknown) date) below. Denies any unknown) recent illness. No fall or injury. She (unknown) (no (unknown) (unknown) distention in the (units (unknown) date) rectum likely unknown) impaction and colonic diverticulosis without (unknown) (no (unknown) (unknown) effusion. (units (unkn own) date) unknown) (unknown) (no (unknown) (unknown) ejection fraction (units (unknown) date) is estimated to be unknown) 35-40%. There is mild to moderate global (unknown) (no (unknown) (unknown) function could not (units (unknown) date) be accurately unknown) assessed due to atrial fibrillation. (unknown) (no (unknown) (unknown) furosemide (units (unk nown) date) [FUROSEMIDE] unknown) Allergy Mild RASH Verified 02/16/22 18:19 (unknown) (no (unknown) (unknown) gabapentin 300 mg (units (unknown) date) capsule 300 mg PO unknown) TID #270 caps 11/18/21 (unknown) (no (unknown) (unknown) hand (units (unkno wn) date) unknown) (unknown) (no (unknown) (unknown) hemodynamically (units (unknown) date) significant unknown) valvular aortic stenosis. There is trace aortic (unknown) (no (unknown) (unknown) household members: (units (unknown) date) children unknown) (unknown) (no (unknown) (unknown) hydrocodone 5 (units ( unknown) date) mg-acetaminophen unknown) 325 1 tab PO BID PRN pain #20 tabs 03/02/22 (unknown) (no (unknown) (unknown) hypokinesis of the (units (unknown) date) left ventricle. The unknown) inferior and inferposterior are (unknown) (no (unknown) (unknown) in the process of (units (unknown) date) being evicted from unknown) an apartment however she has tenant rights (unknown) (no (unknown) (unknown) inhalational (units (u nknown) date) spacing device #1 unknown) ea 11/01/19 (unknown) (no (unknown) (unknown) is estimated to be (units (unknown) date) at least 29 mmHg unknown) based on an estimated right atrial (unknown) (no (unknown) (unknown) last month for (units (unknown) date) multiple problems. unknown) Did have echocardiogram done. Please see (unknown) (no (unknown) (unknown) likely adversely (units (unknown) date) affecting all of unknown) the patient's other comorbidities. (unknown) (no (unknown) (unknown) lisinopril AdvReac (units (unknown) date) Mild Cough Verified unknown) 02/16/22 18:19 (unknown) (no (unknown) (unknown) lives with her son (units (unknown) date) and was recently unknown) homeless.? She was apparently confused, (unknown) (no (unknown) (unknown) losartan 50 mg (units (unknown) date) tablet 50 mg PO unknown) DAILY #90 tabs 02/09/22 (unknown) (no (unknown) (unknown) metoprolol (units (unk nown) date) tartrate 25 mg unknown) tablet 12.5 mg PO DAILY #45 tabs 12/11/21 (unknown) (no (unknown) (unknown) mg tablet (units (unkn own) date) unknown) (unknown) (no (unknown) (unknown) multiple times (units (unknown) date) when the son was unknown) contacted he was hard to be connected to and (unknown) (no (unknown) (unknown) nitroglycerin 0.4 (units (unknown) date) mg sublingual See unknown) Rx Instructions sublingual PRN 10/26/21 (unknown) (no (unknown) (unknown) nodule with (units (un known) date) recommendations for unknown) follow-up in 12 months and moderate stool (unknown) (no (unknown) (unknown) pain, CAD, (units (unk nown) date) anxiety, atrial unknown) fibrillation on anticoagulation, history of (unknown) (no (unknown) (unknown) pantoprazole 40 mg (units (unknown) date) tablet,delayed 40 unknown) mg PO DAILY #90 tabs 02/09/22 (unknown) (no (unknown) (unknown) patient declined (units (unknown) date) SNF placement, and unknown) will receive home health aide on discharge. (unknown) (no (unknown) (unknown) please add the (units (unknown) date) following: severe, unknown) acute protein-calorie malnutrition. This is (unknown) (no (unknown) (unknown) pressure of 8 mm (units (unknown) date) Hg. unknown) (unknown) (no (unknown) (unknown) regurgitation. (units (unknown) date) unknown) (unknown) (no (unknown) (unknown) relatively more (units (unknown) date) hypokinetic, but unknown) overall unchanged from prior exam. Diastolic (unknown) (no (unknown) (unknown) release (units (unkno wn) date) unknown) (unknown) (no (unknown) (unknown) relief. (units (unkno wn) date) unknown) (unknown) (no (unknown) (unknown) right MCA infarct (units (unknown) date) unknown) (unknown) (no (unknown) (unknown) right parietal and (units (unknown) date) temporal lobes unknown) consistent with a prior infarct in the right (unknown) (no (unknown) (unknown) sertraline (units (unk nown) date) [SERTRALINE] unknown) Allergy Mild FEELS Verified 02/16/22 18:19 (unknown) (no (unknown) (unknown) states she is in a (units (unknown) date) better living unknown) condition since being discharged last month. (unknown) (no (unknown) (unknown) states she only (units (unknown) date) eats 2 times a day unknown) consisting mostly of putting and peanut (unknown) (no (unknown) (unknown) systolic function (units (unknown) date) is mild to unknown) moderately reduced. (unknown) (no (unknown) (unknown) tablet (Nitrostat) (units (unknown) date) PRN Chest Pain #30 unknown) tabs (unknown) (no (unknown) (unknown) than 50% with a (units (unknown) date) sniff. This unknown) suggests a right atrial pressure of 8 mm Hg. 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 History of (units (unknown) date) coronary disease unknown) with bypass surgery. Recently admitted here (unknown) (no (unknown) (unknown) to have the (units (un known) date) patient undergo MRI unknown) imaging to further delineate this.? CT of the (unknown) (no (unknown) (unknown) trace leukocyte (units (unknown) date) esterase and will unknown) be cultured.? COVID-19 PCR is negative. (unknown) (no (unknown) (unknown) unchanged from (units (unknown) date) prior exam. unknown) (unknown) (no (unknown) (unknown) unkempt and (units (un known) date) appeared to be not unknown) cared for [facility].? It appears that (unknown) (no (unknown) (unknown) valve leaflets are (units (unknown) date) mildly calcified. unknown) There is mild mitral regurgitation. (unknown) (no (unknown) (unknown) when they were (units (unknown) date) able to reach him unknown) he would request that the patient be sent home (unknown) (no (unknown) (unknown) with an EGFR of (units (unknown) date) 52, alk-phos unknown) elevated at 146 UA is positive for ketones and (unknown) (no (unknown) (unknown) with home (units (unkn own) date) nitroglycerin. To unknown) calm 81 mg aspirin. Denies any chest pain at this (unknown) (no (unknown) (unknown) with patient. (units ( unknown) date) Agrees for admit. unknown) (unknown) (no (unknown) (unknown) with stool and (units (unknown) date) urine. unknown) Result panel 9 (unknown) (no (unknown) (unknown) 2. This likely is (units (unknown) date) contributing unknown) greatly to problem 1. Continue home (unknown) (no (unknown) (unknown) Qty: 1 0RF (units (unk nown) date) unknown) (unknown) (no (unknown) (unknown) (no value) (units (unk nown) date) unknown) (unknown) (no (unknown) (unknown) Date of Service: (units (unknown) date) 03/17/22 unknown) (unknown) (no (unknown) (unknown) (no value) (units (unk nown) date) unknown) (unknown) (no (unknown) (unknown) 'DRUGGED' (units (unkn own) date) unknown) (unknown) (no (unknown) (unknown) 02/16/22 23:18 (units (unknown) date) unknown) (unknown) (no (unknown) (unknown) 02/17/22 01:58 (units (unknown) date) unknown) (unknown) (no (unknown) (unknown) 02/17/22 02:01 (units (unknown) date) unknown) (unknown) (no (unknown) (unknown) 02/17/22 05:08 (units (unknown) date) unknown) (unknown) (no (unknown) (unknown) 03/17/22 20:07 (units (unknown) date) unknown) (unknown) (no (unknown) (unknown) 1 tab PO BID PRN (units (unknown) date) (Reason: pain) Qty: unknown) 20 0RF (unknown) (no (unknown) (unknown) 1 tab under tongue (units (unknown) date) every five minutes unknown) up to three times, call 911 if no (unknown) (no (unknown) (unknown) 1. Physical (units (un known) date) debility/deconditio unknown) gelacio (unknown) (no (unknown) (unknown) 12.5 mg PO DAILY (units (unknown) date) Qty: 45 0RF unknown) (unknown) (no (unknown) (unknown) [address] [place] [address] (units (unknown) date) unknown) (unknown) (no (unknown) (unknown) 2 g topical QID (units (unknown) date) Qty: 100 0RF unknown) (unknown) (no (unknown) (unknown) 3. Atrial (units (unkn own) date) fibrillation unknown) (unknown) (no (unknown) (unknown) 300 mg PO TID Qty: (units (unknown) date) 270 0RF unknown) (unknown) (no (unknown) (unknown) 4. 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 Will continue (units (unknown) date) torsemide 20 mg unknown) daily on discharge. (unknown) (no (unknown) (unknown) 40 mg PO BEDTIME (units (unknown) date) Qty: 90 0RF unknown) (unknown) (no (unknown) (unknown) 40 mg PO DAILY (units (unknown) date) Qty: 90 0RF unknown) (unknown) (no (unknown) (unknown) 5 mg PO BID Qty: (units (unknown) date) 180 1RF unknown) (unknown) (no (unknown) (unknown) 5. Hypertension (units (unknown) date) unknown) (unknown) (no (unknown) (unknown) 5. Will resume (units (unknown) date) home losartan 50 mg unknown) daily. (unknown) (no (unknown) (unknown) 50 mg PO DAILY (units (unknown) date) Qty: 90 1RF unknown) (unknown) (no (unknown) (unknown) 6. Conservative (units (unknown) date) management and unknown) encouraged ambulation. (unknown) (no (unknown) (unknown) 6. Constipation (units (unknown) date) with impaction, unknown) improved (unknown) (no (unknown) (unknown) Allergies (units (unkn own) date) unknown) (unknown) (no (unknown) (unknown) [place], [place] (units ( unknown) date) [id number] unknown) (unknown) (no (unknown) (unknown) As directed (units (un known) date) unknown) (unknown) (no (unknown) (unknown) Assessment: (units (un known) date) unknown) (unknown) (no (unknown) (unknown) Comment: (units (unkno wn) date) unknown) (unknown) (no (unknown) (unknown) Comment: APS case (units (unknown) date) for neglect unknown) (unknown) (no (unknown) (unknown) Comment: Failure (units (unknown) date) to thrive, needs unknown) placement? (unknown) (no (unknown) (unknown) Comment: Prior (units (unknown) date) CVA, mild unknown) dysarthria, syncopal episode (unknown) (no (unknown) (unknown) Comment: Prior (units (unknown) date) CVA, syncopal unknown) episode (unknown) (no (unknown) (unknown) Comment: Prior (units (unknown) date) CVA, syncopal unknown) episode, cognitive eval (unknown) (no (unknown) (unknown) Consult to (units (unk nown) date) Dietitian, Adult unknown) Routine (unknown) (no (unknown) (unknown) Consult to (units (unk nown) date) Discharge Planning unknown) Routine (unknown) (no (unknown) (unknown) Consult to WE[employer]TER - (units (unknown) 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) Routine (unknown) (no (unknown) (unknown) Consult to (units (unk nown) date) Occupational unknown) Therapy Evaluate + Treat (unknown) (no (unknown) (unknown) Consult to (units (unk nown) date) Physical Therapy unknown) Evaluate + Treat (unknown) (no (unknown) (unknown) Consult to Social (units (unknown) date) Services Routine unknown) (unknown) (no (unknown) (unknown) Consult to Speech (units (unknown) date) Therapy Evaluate + unknown) Treat (unknown) (no (unknown) (unknown) Discharge (units (unkn own) date) Diagnosis: unknown) (unknown) (no (unknown) (unknown) Discharge Summary (units (unknown) date) unknown) (unknown) (no (unknown) (unknown) Discharge (units (unkn own) date) provider: unknown) (unknown) (no (unknown) (unknown) Documented By: EB (units (unknown) date) unknown) (unknown) (no (unknown) (unknown) Documented By: NR (units (unknown) date) unknown) (unknown) (no (unknown) (unknown) Dose Instruction: (units (unknown) date) unknown) (unknown) (no (unknown) (unknown) ED Orders (units (unkn own) date) unknown) (unknown) (no (unknown) (unknown) Echocardiography (units (unknown) date) Report unknown) (unknown) (no (unknown) (unknown) Emergency Report (units (unknown) date) unknown) (unknown) (no (unknown) (unknown) Soo Singh MD (units (unknown) date) unknown) (unknown) (no (unknown) (unknown) Hold Instructions: (units (unknown) date) stopped at unknown) [facility] ([facility]) (no (unknown) (unknown) Hospital Course (units (unknown) date) unknown) (unknown) (no (unknown) (unknown) [facility] (units (unknown) date) unknown) (unknown) (no (unknown) (unknown) [facility] (units (unknown) date) [address] unknown) [place] [address] (unknown) (no (unknown) (unknown) Lab Results (units (un known) date) unknown) (unknown) (no (unknown) (unknown) Last Admin: (units (un known) date) 03/17/22 22:13 unknown) Dose: 243 mg (unknown) (no (unknown) (unknown) Last Admin: (units (un known) date) 03/18/22 00:06 unknown) Dose: 25 mg (unknown) (no (unknown) (unknown) Last Admin: (units (un known) date) 03/18/22 00:06 unknown) Dose: 5 mg (unknown) (no (unknown) (unknown) Patient unable to (units (unknown) date) walk 200 feet unknown) without stopping to rest. (unknown) (no (unknown) (unknown) Physician (units (unkn own) date) Instructions: unknown) Evaluate and Treat (unknown) (no (unknown) (unknown) Physician (units (unkn own) date) Instructions: unknown) Evaluate and treat (unknown) (no (unknown) (unknown) Plan: (units (unkno wn) date) unknown) (unknown) (no (unknown) (unknown) Previous Rx's (units ( unknown) date) unknown) (unknown) (no (unknown) (unknown) Reason For Exam: (units (unknown) date) malnutrition + no unknown) teeth (unknown) (no (unknown) (unknown) Rx Instructions: (units (unknown) date) unknown) (unknown) (no (unknown) (unknown) See Rx (units (unkno wn) date) Instructions unknown) .ROUTE .MEDSUPPLY Qty: 1 0RF (unknown) (no (unknown) (unknown) See Rx (units (unkno wn) date) Instructions unknown) Sublingual PRN PRN (Reason: Chest Pain) Qty: 30 0RF (unknown) (no (unknown) (unknown) Signed (units (unkno wn) date) unknown) (unknown) (no (unknown) (unknown) Stop: 03/17/22 (units (unknown) date) 21:32 unknown) (unknown) (no (unknown) (unknown) Stop: 03/17/22 (units (unknown) date) 23:33 unknown) (unknown) (no (unknown) (unknown) Summary (units (unkno wn) date) unknown) (unknown) (no (unknown) (unknown) Vital Signs - 8 hr (units (unknown) date) unknown) (unknown) (no (unknown) (unknown) apply to single (units (unknown) date) elbow, wrist or unknown) hand; for hand includes palm/fingers/back of (unknown) (no (unknown) (unknown) (no value) (units (unk nown) date) unknown) (unknown) (no (unknown) (unknown) (DME) Aerochamber (units (unknown) date) MV Spacer unknown) (unknown) (no (unknown) (unknown) (DME) Handicap (units (unknown) date) Parking unknown) (unknown) (no (unknown) (unknown) ADDENDUMAs an (units (unknown) date) addendum to the unknown) assessment and plan portion of this note, (unknown) (no (unknown) (unknown) 01:30 (units (o wn) date) unknown) (unknown) (no (unknown) (unknown) 03/17/22 03/17/22 (units (unknown) date) 03/17/22 unknown) Range/Units (unknown) (no (unknown) (unknown) 03/18/22 (units (o wn) date) Range/Units unknown) (unknown) (no (unknown) (unknown) 20:07 20:07 22:12 (units (unknown) date) unknown) (unknown) (no (unknown) (unknown) apixaban 5 mg (units ( unknown) date) tablet unknown) (unknown) (no (unknown) (unknown) atorvastatin 40 mg (units (unknown) date) tablet unknown) (unknown) (no (unknown) (unknown) diclofenac sodium (units (unknown) date) 1 % gel unknown) (unknown) (no (unknown) (unknown) gabapentin (units (unk n) date) [Neurontin] 300 mg unknown) capsule (unknown) (no (unknown) (unknown) hydrocodone-acetam (units (unknown) date) inophen 5-325 mg unknown) tablet (unknown) (no (unknown) (unknown) losartan 50 mg (units (unknown) date) tablet unknown) (unknown) (no (unknown) (unknown) metoprolol (units (unk nown) date) tartrate 25 mg unknown) tablet (unknown) (no (unknown) (unknown) nitroglycerin (units ( unknown) date) [Nitrostat] 0.4 mg unknown) tablet, sublingual (unknown) (no (unknown) (unknown) pantoprazole 40 mg (units (unknown) date) tablet,delayed unknown) release (DR/EC) (unknown) (no (unknown) (unknown) 03/17/22 (units (unkno wn) date) unknown) (unknown) (no (unknown) (unknown) 3. Will continue (units (unknown) date) Eliquis 5 mg bid unknown) for anticoagulation, with Lopressor 12.5 mg (unknown) (no (unknown) (unknown) Medication (units (unk nown) date) Instructions unknown) Recorded (unknown) (no (unknown) (unknown) Patient is awake (units (unknown) date) alert oriented x3. unknown) (unknown) (no (unknown) (unknown) and below (units (unkn own) date) unknown) (unknown) (no (unknown) (unknown) chest pain, st (units (unknown) date) elevation unknown) myocardial infarction and chest pain (unknown) (no (unknown) (unknown) rales, or rhonchi. (units (unknown) date) unknown) (unknown) (no (unknown) (unknown) <Electronically (units (unknown) date) signed by Soo unknown) MD Francisco> (unknown) (no (unknown) (unknown) (12/05/17) (units (unk nown) date) unknown) (unknown) (no (unknown) (unknown) (Aerochamber MV (units (unknown) date) spacer) unknown) (unknown) (no (unknown) (unknown) (Neurontin) (units (un known) date) unknown) (unknown) (no (unknown) (unknown) +---------+? (units (unknown) date) ? unknown) [phone]? +---------+ (unknown) (no (unknown) (unknown) +---------+? (units (unknown) date) ? unknown) Hospital? +---------+ (unknown) (no (unknown) (unknown) + (units (unknown) date) unknown) ---+ (unknown) (no (unknown) (unknown) 00:06 03/18/22 (units (unknown) date) unknown) (unknown) (no (unknown) (unknown) 01:00 (units (unkno wn) date) unknown) (unknown) (no (unknown) (unknown) 02/16/22 21:54 (units (unknown) date) unknown) (unknown) (no (unknown) (unknown) 02/20/22 1321 (units ( unknown) date) unknown) (unknown) (no (unknown) (unknown) 03/17/22 20:07 (units (unknown) date) unknown) (unknown) (no (unknown) (unknown) 03/17/22 21:08 (units (unknown) date) unknown) (unknown) (no (unknown) (unknown) 03/17/22 21:09 (units (unknown) date) unknown) (unknown) (no (unknown) (unknown) 03/18/22 00:22 (units (unknown) date) unknown) (unknown) (no (unknown) (unknown) 03/18/22 01:30 (units (unknown) date) unknown) (unknown) (no (unknown) (unknown) 1. Physical (units (un known) date) debility/deconditio unknown) gelacio (unknown) (no (unknown) (unknown) 1. This is likely (units (unknown) date) a function of unknown) advancing age and sedentary status at home. The (unknown) (no (unknown) (unknown) 1. This is likely (units (unknown) date) a function of unknown) advancing age and sedentary status at home. 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 This likely is (units (unknown) date) contributing unknown) greatly to problem 1. Continue home (unknown) (no (unknown) (unknown) 215-1 (units (unkno wn) date) unknown) (unknown) (no (unknown) (unknown) 21:05 03/18/22 (units (unknown) date) unknown) (unknown) (no (unknown) (unknown) 3. Atrial (units (unkn own) date) fibrillation unknown) (unknown) (no (unknown) (unknown) 3. Will continue (units (unknown) date) Eliquis 5 mg bid unknown) for anticoagulation, with Lopressor 12.5 mg (unknown) (no (unknown) (unknown) 4. 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 Will continue (units (unknown) date) torsemide 20 mg unknown) daily on discharge. (unknown) (no (unknown) (unknown) 5. Hypertension (units (unknown) date) unknown) (unknown) (no (unknown) (unknown) 5. Will resume (units (unknown) date) home losartan 50 mg unknown) daily. (unknown) (no (unknown) (unknown) 6. Conservative (units (unknown) date) management and unknown) encouraged ambulation. (unknown) (no (unknown) (unknown) 6. Constipation (units (unknown) date) with impaction, unknown) improved (unknown) (no (unknown) (unknown) : ? : ? ? ? (units (unknown) date) ? unknown) Phone: [phone]? : ? : (unknown) (no (unknown) (unknown) : ? :? (units (unknown) date) ? [address] ? : ? : (unknown) (no (unknown) (unknown) : ? :? (units (unknown) date) ? unknown) [id number] ? : ? : (unknown) (no (unknown) (unknown) : ? :? (units (unknown) date) ? unknown) [place], [place] ? : ? : (unknown) (no (unknown) (unknown) :Account #: (units (un known) date) [id number]? unknown) Gender: Female ? BSA: 1.7 m2? ? : (unknown) (no (unknown) (unknown) :: 1935? (units (unknown) date) ? Age: unknown) 86 yrs? BP: 184/97 mmHg: (unknown) (no (unknown) (unknown) :Hospital MRN #: (units (unknown) date) [id number] ? ? unknown) ReadingLocation: ? Weight: 128 lb : (unknown) (no (unknown) (unknown) :Name: YAMILKA, (units (unknown) date) JACKIE Barba? ? ? unknown) Study Date: 02/17/2022 ? Height: 67 in? : (unknown) (no (unknown) (unknown) :Ordering (units (unkn own) date) Physician: ASHA, ozzy) DEBRAPerformed By: Lyly Casanova? : (unknown) (no (unknown) (unknown) :Reason For Study: (units (unknown) date) CVA? unknown) ? : (unknown) (no (unknown) (unknown) :Referring: ASHA, (units (unknown) date) ELIANA ? unknown) ? : (unknown) (no (unknown) (unknown) ? (units (unkno wn) date) unknown) (unknown) (no (unknown) (unknown) ? (units (unknown) date) ? unknown) ? Date of (unknown) (no (unknown) (unknown) ? (units (unknown) date) ? unknown) [place] (unknown) (no (unknown) (unknown) ? (units (unknown) date) Electronically unknown) signed by: Charlie Clemente on 02/17/2022 09:11 (unknown) (no (unknown) (unknown) ? (units (unkno wn) date) unknown) (unknown) (no (unknown) (unknown) ? (units (unknown) date) ? unknown) sev ratio: 0.49 (unknown) (no (unknown) (unknown) ? (units (unknown) date) ? unknown) Echocardiogram Report (unknown) (no (unknown) (unknown) ALT (<35) IU/L (units (unknown) date) unknown) (unknown) (no (unknown) (unknown) ALT 10 (<35) (units (unknown) date) IU/L unknown) (unknown) (no (unknown) (unknown) AST (14-36) (units ( unknown) date) IU/L unknown) (unknown) (no (unknown) (unknown) AST 26 (14-36) (units (unknown) date) IU/L unknown) (unknown) (no (unknown) (unknown) Abdominal pain (units (unknown) date) unknown) (unknown) (no (unknown) (unknown) Accession Number: (units (unknown) date) [id number] ?? unknown) (unknown) (no (unknown) (unknown) Acct:[id number] (units (unknown) date) unknown) (unknown) (no (unknown) (unknown) Acute pancreatitis (units (unknown) date) unknown) (unknown) (no (unknown) (unknown) Addendum (units (unkno wn) date) Documented By: unknown) (unknown) (no (unknown) (unknown) Addendum Signed (units (unknown) date) By: unknown) (unknown) (no (unknown) (unknown) Age/Sex: 86 / F (units (unknown) date) unknown) (unknown) (no (unknown) (unknown) Age/Sex: 86 / F (units (unknown) date) unknown) (unknown) (no (unknown) (unknown) Albumin (units (unkno wn) date) (3.5-5.0) g/dL unknown) (unknown) (no (unknown) (unknown) Albumin 4.1 (units ( unknown) date) (3.5-5.0) g/dL unknown) (unknown) (no (unknown) (unknown) Albumin/Globulin (units (unknown) date) Ratio (1.0-2.8) unknown) (unknown) (no (unknown) (unknown) Albumin/Globulin (units (unknown) date) Ratio 1.2 unknown) (1.0-2.8) (unknown) (no (unknown) (unknown) Alkaline (units (unkno wn) date) Phosphatase unknown) (38-126) U/L (unknown) (no (unknown) (unknown) Alkaline (units (unkno wn) date) Phosphatase 116 unknown) (38-126) U/L (unknown) (no (unknown) (unknown) Allergy/AdvReac (units (unknown) date) Type Severity unknown) Reaction Status Date / Time (unknown) (no (unknown) (unknown) Anesthesia (units (unk nown) date) unknown) (unknown) (no (unknown) (unknown) Anxiety (units (unkno wn) date) unknown) (unknown) (no (unknown) (unknown) Ao V2 VTI: 24.6 cm (units (unknown) date) ? unknown) SALO(V,D): 1.4 cm2 (unknown) (no (unknown) (unknown) Ao V2 max: 137.4 (units (unknown) date) cm/sec? unknown) LVOT Max Benjamin: 61.4 cm/sec (unknown) (no (unknown) (unknown) Ao V2 mean: 98.4 (units (unknown) date) cm/sec? LV unknown) V1 max P.5 mmHg (unknown) (no (unknown) (unknown) Ao max P.6 (units (unknown) date) mmHg? unknown) LV V1 VTI: 11.9 cm (unknown) (no (unknown) (unknown) Ao mean P.3 (units (unknown) date) mmHg ? unknown) SALO(I,D): 1.5 cm2 (unknown) (no (unknown) (unknown) Aortic Valve: ? (units (unknown) date) The aortic valve is unknown) mildly calcified. 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 The left (units (unknown) date) atrium is severely unknown) dilated. The right atrium is severely (unknown) (no (unknown) (unknown) Atrial (units (unkno wn) date) fibrillation rate unknown) [address] elevation or depression (unknown) (no (unknown) (unknown) BACK: No flank (units (unknown) date) tenderness. unknown) (unknown) (no (unknown) (unknown) BUN (7-17) (units (u nknown) date) mg/dL unknown) (unknown) (no (unknown) (unknown) BUN 18 H (units (unk nown) date) (7-17) mg/dL unknown) (unknown) (no (unknown) (unknown) BUN/Creatinine (units (unknown) date) Ratio (6-22) unknown) (unknown) (no (unknown) (unknown) BUN/Creatinine (units (unknown) date) Ratio 20.7 unknown) (6-22) (unknown) (no (unknown) (unknown) Baso # (Auto) (units ( unknown) date) (0-100) /uL unknown) (unknown) (no (unknown) (unknown) Baso # (Auto) 0 (units (unknown) date) (0-100) /uL unknown) (unknown) (no (unknown) (unknown) Baso % (Auto) (units ( unknown) date) (0-2) % unknown) (unknown) (no (unknown) (unknown) Baso % (Auto) 0.7 (units (unknown) date) (0-2) % unknown) (unknown) (no (unknown) (unknown) Blood Pressure (units (unknown) date) 201/119 H 03/17/22 unknown) 21:05 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) unknown) (unknown) (no (unknown) (unknown) CARDIOVASCULAR: (units (unknown) date) Positive for chest unknown) pain, negative for palpitations (unknown) (no (unknown) (unknown) CARDIOVASCULAR: (units (unknown) date) Regular rate and unknown) rhythm without murmurs (unknown) (no (unknown) (unknown) CK-MB (CK-2) (units (u nknown) date) unknown) (unknown) (no (unknown) (unknown) CK-MB (CK-2) TNP (units (unknown) date) unknown) (unknown) (no (unknown) (unknown) CK-MB (CK-2) Rel (units (unknown) date) Index unknown) (unknown) (no (unknown) (unknown) CK-MB (CK-2) Rel (units (unknown) date) Index TNP unknown) (unknown) (no (unknown) (unknown) COVID19 -Nasal (units (unknown) date) RAPID/Pre-Proc Stat unknown) (unknown) (no (unknown) (unknown) CT of the head did (units (unknown) date) report prior unknown) cortical and subcortical encephalomalacia on the (unknown) (no (unknown) (unknown) Calcified nodule (units (unknown) date) unknown) (unknown) (no (unknown) (unknown) Calcium (units (unkno wn) date) (8.4-10.2) mg/dL unknown) (unknown) (no (unknown) (unknown) Calcium 9.1 (units ( unknown) date) (8.4-10.2) mg/dL unknown) (unknown) (no (unknown) (unknown) Carbon Dioxide (units (unknown) date) (22-32) mmol/L unknown) (unknown) (no (unknown) (unknown) Carbon Dioxide (units (unknown) date) 27 (22-32) unknown) mmol/L (unknown) (no (unknown) (unknown) Jackie Prather (units (unknown) date) is an 86-year-old unknown) female with a history of chronic abdominal (unknown) (no (unknown) (unknown) 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 (unknown) (no (unknown) (unknown) Cervical cancer, (units (unknown) date) FIGO stage I unknown) (unknown) (no (unknown) (unknown) Chief Complaint: (units (unknown) date) Chest Pain unknown) (unknown) (no (unknown) (unknown) Chief complaint: (units (unknown) date) Decreased LOC unknown) (unknown) (no (unknown) (unknown) Chloride (units (unkno wn) date) (98-107) mmol/L unknown) (unknown) (no (unknown) (unknown) Chloride 103 (units (unknown) date) (98-107) mmol/L unknown) (unknown) (no (unknown) (unknown) Cholelithiasis (units (unknown) date) unknown) (unknown) (no (unknown) (unknown) Chronic back pain (units (unknown) date) unknown) (unknown) (no (unknown) (unknown) Comparison is made (units (unknown) date) with the unknown) echocardiogram of 08/17/2019. 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) Stat (unknown) (no (unknown) (unknown) Consults: (units (unkn own) date) unknown) (unknown) (no (unknown) (unknown) Course (units (unkno wn) date) unknown) (unknown) (no (unknown) (unknown) Course Narrative: (units (unknown) date) unknown) (unknown) (no (unknown) (unknown) Creatinine (units (unk nown) date) (0.52-1.04) mg/dL unknown) (unknown) (no (unknown) (unknown) Creatinine 0.87 (units (unknown) date) (0.52-1.04) mg/dL unknown) (unknown) (no (unknown) (unknown) : 1935 (units (unknown) date) Acct:[id number] unknown) (unknown) (no (unknown) (unknown) : 1935 (units (unknown) date) unknown) (unknown) (no (unknown) (unknown) Date of Service: (units (unknown) date) 02/17/22 unknown) (unknown) (no (unknown) (unknown) Date of admission: (units (unknown) date) unknown) (unknown) (no (unknown) (unknown) Departure (units (unkn own) date) unknown) (unknown) (no (unknown) (unknown) Developmental (units ( unknown) date) disorder unknown) (unknown) (no (unknown) (unknown) Diarrhea (units (unkno wn) date) unknown) (unknown) (no (unknown) (unknown) Differential (units (u nknown) date) Diagnosis unknown) (unknown) (no (unknown) (unknown) Differential (units (un known) date) diagnosis: Likely unknown) stable angina, unstable angina pectoris, atypical (unknown) (no (unknown) (unknown) Discharge (units (unkn own) date) Assessment + Plan unknown) (unknown) (no (unknown) (unknown) Discharge Date: (units (unknown) date) 02/19/22 unknown) (unknown) (no (unknown) (unknown) Discharge Plan (units (unknown) date) unknown) (unknown) (no (unknown) (unknown) Discharge (units (unkn own) date) Providers unknown) (unknown) (no (unknown) (unknown) Discontinued (units (u nknown) date) Medications unknown) (unknown) (no (unknown) (unknown) Doppler (units (unkno wn) date) Measurements + unknown) Calculations (unknown) (no (unknown) (unknown) E/E' lat: 10.4 (units (unknown) date) unknown) (unknown) (no (unknown) (unknown) E/E' med: 16.6 ? ? (units (unknown) date) ? PA unknown) mean P.8 mmHg (unknown) (no (unknown) (unknown) E/e' average: 13.5 (units (unknown) date) unknown) (unknown) (no (unknown) (unknown) ECG Data (units (unkno wn) date) unknown) (unknown) (no (unknown) (unknown) EKG-12 Lead Stat (units (unknown) date) unknown) (unknown) (no (unknown) (unknown) ENT: Mucous (units (u nknown) date) membranes moist. unknown) (unknown) (no (unknown) (unknown) ER Physician: (units ( unknown) date) Jossue Salcido MD unknown) (unknown) (no (unknown) (unknown) EXTREMITIES: No (units (unknown) date) gross deformities. unknown) (unknown) (no (unknown) (unknown) EYES: Pupils equal (units (unknown) date) round No scleral unknown) icterus. (unknown) (no (unknown) (unknown) Eos # (Auto) (units (u nknown) date) (0-450) /uL unknown) (unknown) (no (unknown) (unknown) Eos # (Auto) 0 (units (unknown) date) (0-450) /uL unknown) (unknown) (no (unknown) (unknown) Eos % (Auto) (units (u nknown) date) (2-4) % unknown) (unknown) (no (unknown) (unknown) Eos % (Auto) 0.8 (units (unknown) date) L (2-4) % unknown) (unknown) (no (unknown) (unknown) Essential (units (unkn own) date) hypertension unknown) (09/28/12) (unknown) (no (unknown) (unknown) Estimated GFR > (units (unknown) date) 60 (>60) mL/min unknown) (unknown) (no (unknown) (unknown) Estimated GFR (units ( unknown) date) (>60) mL/min unknown) (unknown) (no (unknown) (unknown) Exam (units (unkno wn) date) unknown) (unknown) (no (unknown) (unknown) Exam Narrative: (units (unknown) date) unknown) (unknown) (no (unknown) (unknown) FS: 18.5 %? (units (unknown) date) ? unknown) ? asc Aorta Diam: 3.2 cm (unknown) (no (unknown) (unknown) Failure to thrive (units (unknown) date) in adult unknown) (unknown) (no (unknown) (unknown) Fibrocystic breast (units (unknown) date) disease unknown) (unknown) (no (unknown) (unknown) GASTROINTESTINAL: (units (unknown) date) Abdomen soft, unknown) non-tender (unknown) (no (unknown) (unknown) GASTROINTESTINAL: (units (unknown) date) Denies nausea, unknown) vomiting, abdominal pain (unknown) (no (unknown) (unknown) GENERAL: Denies (units (unknown) date) chills, fatigue, unknown) malaise, fever, sweats. (unknown) (no (unknown) (unknown) GENERAL: in no (units (unknown) date) distress, not toxic unknown) not dyspneic (unknown) (no (unknown) (unknown) GERD (units (unkno wn) date) (gastroesophageal unknown) reflux disease) (unknown) (no (unknown) (unknown) : Denies (units (unk nown) date) dysuria, frequency, unknown) hematuria (unknown) (no (unknown) (unknown) Alyssa Robison MD (units (unknown) date) unknown) (unknown) (no (unknown) (unknown) General (units (unkno wn) date) unknown) (unknown) (no (unknown) (unknown) GenericComposite[?? (units (unknown) date) ? unknown) ? SALO indexed to BSA (cm^2/m^2): 0.90 ] (unknown) (no (unknown) (unknown) GenericComposite[L (units (unknown) date) V cage. unknown) diameter/BSA (cm/m^2): 2.9 ] (unknown) (no (unknown) (unknown) GenericComposite[L (units (unknown) date) V sys. diameter/BSA unknown) (cm/m^2): 2.4 ] (unknown) (no (unknown) (unknown) GenericComposite[P (units (unknown) date) lt Count unknown) (150-400) X10^3/uL ] (unknown) (no (unknown) (unknown) GenericComposite[P (units (unknown) date) lt Count 250 unknown) (150-400) X10^3/uL ] (unknown) (no (unknown) (unknown) GenericComposite[R (units (unknown) date) BC (4.0-5.2) unknown) X10^6/uL ] (unknown) (no (unknown) (unknown) GenericComposite[R (units (unknown) date) BC 4.32 unknown) (4.0-5.2) X10^6/uL ] (unknown) (no (unknown) (unknown) GenericComposite[W (units (unknown) date) BC (4.5-11.0) unknown) X10^3/uL ] (unknown) (no (unknown) (unknown) GenericComposite[W (units (unknown) date) BC 6.2 unknown) (4.5-11.0) X10^3/uL ] (unknown) (no (unknown) (unknown) Globulin (units (unkno wn) date) (1.7-4.1) g/dL unknown) (unknown) (no (unknown) (unknown) Globulin 3.5 (units (unknown) date) (1.7-4.1) g/dL unknown) (unknown) (no (unknown) (unknown) Glucose (80-110) (units (unknown) date) mg/dL unknown) (unknown) (no (unknown) (unknown) Glucose 99 (units (u nknown) date) (80-110) mg/dL unknown) (unknown) (no (unknown) (unknown) Great Vessels: ? (units (unknown) date) The aortic root is unknown) normal size. The dimensions of the (unknown) (no (unknown) (unknown) HEAD: (units (unkno wn) date) Normocephalic. unknown) (unknown) (no (unknown) (unknown) HEENT: Denies (units ( unknown) date) sinus pain, ear unknown) pain, sore throat (unknown) (no (unknown) (unknown) HPI - Chest Pain (units (unknown) date) unknown) (unknown) (no (unknown) (unknown) HPI narrative: (units (unknown) date) unknown) (unknown) (no (unknown) (unknown) Handicap Parking (units (unknown) date) #1 ea 01/12/19 unknown) (unknown) (no (unknown) (unknown) Soo Singh MD (units (unknown) date) unknown) (unknown) (no (unknown) (unknown) Hct (36-46) % (units (unknown) date) unknown) (unknown) (no (unknown) (unknown) Hct 39.2 (units (unkn own) date) (36-46) % unknown) (unknown) (no (unknown) (unknown) Hgb (12.0-16.0) (units (unknown) date) g/dL unknown) (unknown) (no (unknown) (unknown) Hgb 13.0 (units (unkn own) date) (12.0-16.0) g/dL unknown) (unknown) (no (unknown) (unknown) History of Present (units (unknown) date) Illness unknown) (unknown) (no (unknown) (unknown) History of colon (units (unknown) date) polyps (09/28/12) unknown) (unknown) (no (unknown) (unknown) History of left (units (unknown) date) breast cancer unknown) (-2008) (unknown) (no (unknown) (unknown) Hyperlipidemia (units (unknown) date) unknown) 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 unknown) ? RA long axis: 6.0 cm (unknown) (no (unknown) (unknown) LA A4 area: 30.0 (units (unknown) date) cm2? unknown) ? RA area: 23.9 cm2 (unknown) (no (unknown) (unknown) LA length (vol): (units (unknown) date) 6.6 cm ? unknown) ? RA vol: 80.6 ml (unknown) (no (unknown) (unknown) LA vol index: 63.5 (units (unknown) date) ml/m2? unknown) ? IVC diam: 1.4 cm (unknown) (no (unknown) (unknown) LA vol: 106.2 ml? (units (unknown) date) ? unknown) ? RA : 48.2 ml/m2 (unknown) (no (unknown) (unknown) LVIDd: 4.9 cm ? ? (units (unknown) date) ? unknown) ? LVOT diam: 2.0 cm (unknown) (no (unknown) (unknown) LVIDs: 4.0 cm ? ? (units (unknown) date) ? unknown) ? Ao root diam: 3.2 cm (unknown) (no (unknown) (unknown) LVPWd: 0.96 cm (units (unknown) date) unknown) (unknown) (no (unknown) (unknown) Lab Data (units (unkno wn) date) unknown) (unknown) (no (unknown) (unknown) Labs: (units (unkno wn) date) unknown) (unknown) (no (unknown) (unknown) Lat Peak E' Benjamin: (units (unknown) date) 9.3 cm/sec? ? ? PA unknown) pr(Accel): 44.7 mmHg (unknown) (no (unknown) (unknown) Left Ventricle: ? (units (unknown) date) The left ventricle unknown) is normal in size and wall thickness. The (unknown) (no (unknown) (unknown) Limitations: (units (u nknown) date) altered mental unknown) status (unknown) (no (unknown) (unknown) Lipase (23-300) (units (unknown) date) U/L unknown) (unknown) (no (unknown) (unknown) Lipase 45 (units (un known) date) (23-300) U/L unknown) (unknown) (no (unknown) (unknown) Lipase Stat (units (un known) date) unknown) (unknown) (no (unknown) (unknown) Loc: [facility] (units (unkno wn) date) unknown) (unknown) (no (unknown) (unknown) Lymph # (Auto) (units (unknown) date) (0308-0923) /uL unknown) (unknown) (no (unknown) (unknown) Lymph # (Auto) (units (unknown) date) 1300 (5907-8356) unknown) /uL (unknown) (no (unknown) (unknown) Lymph % (Auto) (units (unknown) date) (25-40) % unknown) (unknown) (no (unknown) (unknown) Lymph % (Auto) (units (unknown) date) 20.2 L (25-40) unknown) % (unknown) (no (unknown) (unknown) [id number] (units (unk nown) date) unknown) (unknown) (no (unknown) (unknown) MCA territory and (units (unknown) date) suggested if there unknown) were concerned of an acute on chronic CVA (unknown) (no (unknown) (unknown) MCH (26-34) PG (units (unknown) date) unknown) (unknown) (no (unknown) (unknown) MCH 30.1 (units (unkn own) date) (26-34) PG unknown) (unknown) (no (unknown) (unknown) MCHC (30-36) % (units (unknown) date) unknown) (unknown) (no (unknown) (unknown) MCHC 33.2 (units (unk nown) date) (30-36) % unknown) (unknown) (no (unknown) (unknown) MCV (80-100) fL (units (unknown) date) unknown) (unknown) (no (unknown) (unknown) MCV 90.9 (units (unkn own) date) (80-100) fL unknown) (unknown) (no (unknown) (unknown) MDM - Chest Pain (units (unknown) date) unknown) (unknown) (no (unknown) (unknown) MMode/2D (units (unkno wn) date) Measurements + unknown) Calculations (unknown) (no (unknown) (unknown) MR#: [id number] (units (unknown) date) unknown) (unknown) (no (unknown) (unknown) MUSCULOSKELETAL: (units (unknown) date) denies muscle or unknown) bony pain (unknown) (no (unknown) (unknown) MV A max benjamin: 2.1 (units (unknown) date) cm/sec ? TR unknown) max P.8 mmHg (unknown) (no (unknown) (unknown) MV E max benjamin: 96.4 (units (unknown) date) cm/sec? TR unknown) max benjamin: 228.2 cm/sec (unknown) (no (unknown) (unknown) MV E/A: 46.5 ? ? ? (units (unknown) date) ? PA V2 unknown) max: 95.2 cm/sec (unknown) (no (unknown) (unknown) MV dec time: 0.23 (units (unknown) date) sec unknown) (unknown) (no (unknown) (unknown) Magnesium (units (unkn own) date) (1.6-2.3) mg/dL unknown) (unknown) (no (unknown) (unknown) Magnesium 2.0 (units (unknown) date) (1.6-2.3) mg/dL unknown) (unknown) (no (unknown) (unknown) Magnesium Stat (units (unknown) date) unknown) (unknown) (no (unknown) (unknown) Measles (units (unkno wn) date) unknown) (unknown) (no (unknown) (unknown) Med Peak E' Benjamin: (units (unknown) date) 5.8 cm/sec? ? ? 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 (units (unknown) date) There is moderate unknown) mitral annular calcification. The mitral (unknown) (no (unknown) (unknown) Mode of arrival: (units (unknown) date) EMS unknown) (unknown) (no (unknown) (unknown) [place] # (Auto) (units ( unknown) date) (0-900) /uL unknown) (unknown) (no (unknown) (unknown) [place] # (Auto) 400 (units (unknown) date) (0-900) /uL unknown) (unknown) (no (unknown) (unknown) [place] % (Auto) (units ( unknown) date) (3-14) % unknown) (unknown) (no (unknown) (unknown) [place] % (Auto) 7.2 (units (unknown) date) (3-14) % unknown) (unknown) (no (unknown) (unknown) NECK: Trachea (units ( unknown) date) midline. unknown) (unknown) (no (unknown) (unknown) NEURO: AOx4. (units (u nknown) date) unknown) (unknown) (no (unknown) (unknown) NEUROLOGIC: Denies (units (unknown) date) weakness, numbness unknown) (unknown) (no (unknown) (unknown) Narrative (units (unkn own) date) unknown) (unknown) (no (unknown) (unknown) Narrative: (units (unk nown) date) unknown) (unknown) (no (unknown) (unknown) Narrative: (units (unk nown) date) unknown) (unknown) (no (unknown) (unknown) Neut # (Auto) (units ( unknown) date) (8068-5880) /uL unknown) (unknown) (no (unknown) (unknown) Neut # (Auto) (units ( unknown) date) 4400 (7486-9110) unknown) /uL (unknown) (no (unknown) (unknown) Neut % (Auto) (units ( unknown) date) (50-75) % unknown) (unknown) (no (unknown) (unknown) Neut % (Auto) (units ( unknown) date) 71.1 (50-75) % unknown) (unknown) (no (unknown) (unknown) No Action (units (unkn own) date) unknown) (unknown) (no (unknown) (unknown) No chest pain (units ( unknown) date) here. Blood unknown) pressure 170/89. It has improved. Reviewed results (unknown) (no (unknown) (unknown) No new issues (units ( unknown) date) during course of unknown) stay (unknown) (no (unknown) (unknown) No recent illness (units (unknown) date) fever chills cough unknown) cold or congestion. No urinary complaints. (unknown) (no (unknown) (unknown) Ordered: (units (unkno wn) date) unknown) (unknown) (no (unknown) (unknown) Ordering Provider: (units (unknown) date) Eliana Barry unknown) (unknown) (no (unknown) (unknown) Orders (units (unkno wn) date) unknown) (unknown) (no (unknown) (unknown) Osteoarthritis of (units (unknown) date) knees, bilateral unknown) (unknown) (no (unknown) (unknown) Overall no (units (unk nown) date) significant change unknown) from prior exam. However, there the MR and TR (unknown) (no (unknown) (unknown) Oxygen Delivery (units (unknown) date) Method 03/17/22 unknown) 21:05 (unknown) (no (unknown) (unknown) Oxygen Delivery (units (unknown) date) Method Room Air unknown) (unknown) (no (unknown) (unknown) PSYCH: Not (units (un known) date) anxious, is unknown) cooperative (unknown) (no (unknown) (unknown) Patient (units (unkno wn) date) Disposition: Home unknown) (unknown) (no (unknown) (unknown) Patient History (units (unknown) date) unknown) (unknown) (no (unknown) (unknown) Patient brought (units (unknown) date) here by ambulance unknown) from home. Complaints of chest pain relief (unknown) (no (unknown) (unknown) Patient: (units (unkno wn) date) Jackie Prather unknown) MR#: (unknown) (no (unknown) (unknown) Patient: (units (unkno wn) date) Jackie Prather unknown) (unknown) (no (unknown) (unknown) Pericardium/ (units (u nknown) date) Pleura ? There is unknown) no pericardial effusion. 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 (units (unknown) date) The pulmonic valve unknown) is not well seen, but is grossly normal. (unknown) (no (unknown) (unknown) Pulse Oximetry 96 (units (unknown) date) 03/17/22 21:05 unknown) (unknown) (no (unknown) (unknown) Pulse Oximetry 96 (units (unknown) date) unknown) (unknown) (no (unknown) (unknown) Pulse Rate 118 H (units (unknown) date) 03/17/22 21:05 unknown) (unknown) (no (unknown) (unknown) Pulse Rate 118 H (units (unknown) date) 98 H 82 unknown) (unknown) (no (unknown) (unknown) RDW (11.6-14.8) (units (unknown) date) % unknown) (unknown) (no (unknown) (unknown) RDW 14.7 (units (unkn own) date) (11.6-14.8) % unknown) (unknown) (no (unknown) (unknown) RESPIRATORY: Clear (units (unknown) date) to auscultation. unknown) Breath sounds equal bilaterally. No wheezes, (unknown) (no (unknown) (unknown) RESPIRATORY: (units (u nknown) date) Denies dyspnea, unknown) cough (unknown) (no (unknown) (unknown) ROS Unobtainable: (units (unknown) date) All systems unknown) reviewed + are unremarkable except as noted in HPI (unknown) (no (unknown) (unknown) RVD1 (basal): 3.8 (units (unknown) date) cm unknown) (unknown) (no (unknown) (unknown) RVD2 (mid): 3.8 cm (units (unknown) date) unknown) (unknown) (no (unknown) (unknown) Reading (units (unkno wn) date) Physician:AM unknown) (unknown) (no (unknown) (unknown) Reevaluation #1: (units (unknown) date) unknown) (unknown) (no (unknown) (unknown) Reevaluation(s) (units (unknown) date) unknown) (unknown) (no (unknown) (unknown) Related Data (units (u nknown) date) unknown) (unknown) (no (unknown) (unknown) Respiratory Rate (units (unknown) date) 20 03/17/22 21:05 unknown) (unknown) (no (unknown) (unknown) Respiratory Rate (units (unknown) date) 20 unknown) (unknown) (no (unknown) (unknown) Result diagrams: (units (unknown) date) unknown) (unknown) (no (unknown) (unknown) Review of Systems (units (unknown) date) unknown) (unknown) (no (unknown) (unknown) Right Ventricle: ? (units (unknown) date) The right ventricle unknown) is normal size. Right ventricular (unknown) (no (unknown) (unknown) Right ventricular (units (unknown) date) systolic function unknown) is mild to moderately reduced. (unknown) (no (unknown) (unknown) SARS-CoV-2 (PCR) (units (unknown) date) Negative unknown) (Negative) (unknown) (no (unknown) (unknown) SARS-CoV-2 (PCR) (units (unknown) date) (Negative) unknown) (unknown) (no (unknown) (unknown) SKIN: Warm and (units (unknown) date) dry unknown) (unknown) (no (unknown) (unknown) SKIN: Denies rash, (units (unknown) date) skin lesions unknown) (unknown) (no (unknown) (unknown) SV(LVOT): 36.8 ml (units (unknown) date) unknown) (unknown) (no (unknown) (unknown) Service: 02/16/22 (units (unknown) date) unknown) (unknown) (no (unknown) (unknown) She presented (units ( unknown) date) today with EMS and unknown) she was very confused and apparently covered (unknown) (no (unknown) (unknown) She told the nurse (units (unknown) date) that she lives in unknown) an apartment that is connected to the house (unknown) (no (unknown) (unknown) Signed By: (units (unk nown) date) unknown) (unknown) (no (unknown) (unknown) Smoking Status: (units (unknown) date) Never smoker unknown) (unknown) (no (unknown) (unknown) Smoking Status: (units (unknown) date) Never smoker unknown) (unknown) (no (unknown) (unknown) Social History (units (unknown) date) (Reviewed 03/17/22 unknown) @ 21:36 by Jossue Salcido MD) (unknown) (no (unknown) (unknown) Sodium (137-145) (units (unknown) date) mmol/L unknown) (unknown) (no (unknown) (unknown) Sodium 140 (units (u nknown) date) (137-145) mmol/L unknown) (unknown) (no (unknown) (unknown) Source: patient (units (unknown) date) unknown) (unknown) (no (unknown) (unknown) Speech and (units (unk nown) date) language unknown) 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 (09/28/12) (unknown) (no (unknown) (unknown) Stated Complaint: (units (unknown) date) Chest Pain, Welfare unknown) check (unknown) (no (unknown) (unknown) Status post (units (un known) date) arthroscopy unknown) (unknown) (no (unknown) (unknown) Status post biopsy (units (unknown) date) () unknown) (unknown) (no (unknown) (unknown) Status post breast (units (unknown) date) lumpectomy () unknown) (unknown) (no (unknown) (unknown) Status post (units (un known) date) cholecystectomy unknown) (unknown) (no (unknown) (unknown) 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 (unknown) (no (unknown) (unknown) Status post (units (un known) date) hysterectomy unknown) () (unknown) (no (unknown) (unknown) Substance Use (units ( unknown) date) Type: does not use unknown) (unknown) (no (unknown) (unknown) Surgical History (units (unknown) date) (Reviewed 03/17/22 unknown) @ 21:36 by Jossue Salcido MD) (unknown) (no (unknown) (unknown) 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 (unknown) (no (unknown) (unknown) The ejection (units (u nknown) date) fraction is unknown) estimated to be 35-40%. (unknown) (no (unknown) (unknown) The inferior and (units (unknown) date) inferposterior are unknown) relatively more hypokinetic, but overall (unknown) (no (unknown) (unknown) The left atrium is (units (unknown) date) severely dilated. unknown) (unknown) (no (unknown) (unknown) The left ventricle (units (unknown) date) is normal in size unknown) and wall thickness. (unknown) (no (unknown) (unknown) The pulmonary (units ( unknown) date) hypertension is unknown) improved from prior exam. (unknown) (no (unknown) (unknown) The right atrium (units (unknown) date) is severely unknown) dilated. (unknown) (no (unknown) (unknown) The right (units (unkn own) date) ventricular unknown) systolic pressure is estimated to be at least 29 mmHg (unknown) (no (unknown) (unknown) There is mild (units ( unknown) date) mitral unknown) regurgitation. (unknown) (no (unknown) (unknown) There is mild to (units (unknown) date) moderate global unknown) hypokinesis of the left ventricle. (unknown) (no (unknown) (unknown) There is mild (units ( unknown) date) tricuspid unknown) regurgitation. The right ventricular systolic pressure (unknown) (no (unknown) (unknown) There is moderate (units (unknown) date) mitral annular unknown) calcification. (unknown) (no (unknown) (unknown) There is no (units (un known) date) pulmonic valvular unknown) regurgitation. (unknown) (no (unknown) (unknown) Time Seen by (units (u nknown) date) Provider: 03/17/22 unknown) 21:24 (unknown) (no (unknown) (unknown) Time: 02:33 (units (un known) date) unknown) (unknown) (no (unknown) (unknown) Total Bilirubin (units (unknown) date) (0.2-1.3) mg/dL unknown) (unknown) (no (unknown) (unknown) Total Bilirubin (units (unknown) date) 0.9 (0.2-1.3) unknown) mg/dL (unknown) (no (unknown) (unknown) Total Creatine (units (unknown) date) Kinase < 20 L unknown) (30-135) U/L (unknown) (no (unknown) (unknown) Total Creatine (units (unknown) date) Kinase (30-135) unknown) U/L (unknown) (no (unknown) (unknown) Total Protein (units ( unknown) date) (6.3-8.2) g/dL unknown) (unknown) (no (unknown) (unknown) Total Protein (units ( unknown) date) 7.6 (6.3-8.2) unknown) g/dL (unknown) (no (unknown) (unknown) Tricuspid Valve: ? (units (unknown) date) The tricuspid valve unknown) is normal in structure and function. (unknown) (no (unknown) (unknown) Troponin + CK (units ( unknown) date) Cardiac Panel Stat unknown) (unknown) (no (unknown) (unknown) Troponin I < (units (unknown) date) 0.012 unknown) (0.01-0.034) ng/mL (unknown) (no (unknown) (unknown) Troponin I < (units ( unknown) date) 0.012 (0.01-0.034) unknown) ng/mL (unknown) (no (unknown) (unknown) Troponin I Stat (units (unknown) date) unknown) (unknown) (no (unknown) (unknown) Vital Signs (units (un known) date) unknown) (unknown) (no (unknown) (unknown) Vital signs: (units (u nknown) date) unknown) (unknown) (no (unknown) (unknown) Written by (units (unk nown) date) admitting provider. unknown) (unknown) (no (unknown) (unknown) XR chest 1V Stat (units (unknown) date) unknown) (unknown) (no (unknown) (unknown) [Embedded Image (units (unknown) date) Not Available] unknown) (unknown) (no (unknown) (unknown) (units (unknown) date) unknown) ___ (unknown) (no (unknown) (unknown) acute (units (unkno wn) date) diverticulitis.? unknown) WBC is unremarkable, she has a creatinine bump of 1.06 (unknown) (no (unknown) (unknown) alcohol intake (units (unknown) date) frequency: unknown) holidays/special occasions only (unknown) (no (unknown) (unknown) alcohol intake: (units (unknown) date) never unknown) (unknown) (no (unknown) (unknown) and Doppler was (units (unknown) date) performed. The unknown) study quality was technically adequate. (unknown) (no (unknown) (unknown) and apparently that (units (unknown) date) is been an issue.? unknown) Review of case management note written on (unknown) (no (unknown) (unknown) apixaban 5 mg (units ( unknown) date) tablet 5 mg PO BID unknown) #180 tabs 03/11/21 (unknown) (no (unknown) (unknown) are now mild (units (u nknown) date) instead of unknown) moderate. (unknown) (no (unknown) (unknown) ascending aorta (units (unknown) date) are normal. The IVC unknown) is of normal diameter and collapses less (unknown) (no (unknown) (unknown) atherosclerotic (units (unknown) date) plaque protecting unknown) meds. (unknown) (no (unknown) (unknown) atorvastatin 40 mg (units (unknown) date) tablet 40 mg PO unknown) BEDTIME #90 tabs 12/11/21 (unknown) (no (unknown) (unknown) atrial (units (unkno wn) date) fibrillation with unknown) heart rates between 54-75 bpm during the exam. (unknown) (no (unknown) (unknown) based on an (units (un known) date) estimated right unknown) atrial pressure of 8 mm Hg. (unknown) (no (unknown) (unknown) because supposedly (units (unknown) date) her son found her unknown) passed out on the ?m[place] potty'.? Patient (unknown) (no (unknown) (unknown) butter cookies and (units (unknown) date) then has maybe a unknown) hot meal, usually hamburger.? (unknown) (no (unknown) (unknown) by cab.? She was (units (unknown) date) apparently seen in unknown) the emergency department on February 14 and at (unknown) (no (unknown) (unknown) chest abdomen and (units (unknown) date) pelvis reported a unknown) small right upper lobe 0.4 cm pulmonary (unknown) (no (unknown) (unknown) class 2 (06/05/11) (units (unknown) date) unknown) (unknown) (no (unknown) (unknown) contaminated and a (units (unknown) date) culture was not unknown) able to be grown or specified. (unknown) (no (unknown) (unknown) daily for rate (units (unknown) date) control. unknown) (unknown) (no (unknown) (unknown) diclofenac sodium (units (unknown) date) 1 % topical gel 2 g unknown) topical QID #100 grams 02/03/22 (unknown) (no (unknown) (unknown) dilated. There is (units (unknown) date) no Doppler evidence unknown) for an interatrial shunt. (unknown) (no (unknown) (unknown) discharge note (units (unknown) date) below. Denies any unknown) recent illness. No fall or injury. She (unknown) (no (unknown) (unknown) distention in the (units (unknown) date) rectum likely unknown) impaction and colonic diverticulosis without (unknown) (no (unknown) (unknown) effusion. (units (unkn own) date) unknown) (unknown) (no (unknown) (unknown) ejection fraction (units (unknown) date) is estimated to be unknown) 35-40%. There is mild to moderate global (unknown) (no (unknown) (unknown) function could not (units (unknown) date) be accurately unknown) assessed due to atrial fibrillation. (unknown) (no (unknown) (unknown) furosemide (units (unk nown) date) [FUROSEMIDE] unknown) Allergy Mild RASH Verified 02/16/22 18:19 (unknown) (no (unknown) (unknown) gabapentin 300 mg (units (unknown) date) capsule 300 mg PO unknown) TID #270 caps 11/18/21 (unknown) (no (unknown) (unknown) hand (units (unkno wn) date) unknown) (unknown) (no (unknown) (unknown) hemodynamically (units (unknown) date) significant unknown) valvular aortic stenosis. There is trace aortic (unknown) (no (unknown) (unknown) household members: (units (unknown) date) children unknown) (unknown) (no (unknown) (unknown) hydrocodone 5 (units ( unknown) date) mg-acetaminophen unknown) 325 1 tab PO BID PRN pain #20 tabs 03/02/22 (unknown) (no (unknown) (unknown) hypokinesis of the (units (unknown) date) left ventricle. The unknown) inferior and inferposterior are (unknown) (no (unknown) (unknown) in the process of (units (unknown) date) being evicted from unknown) an apartment however she has tenant rights (unknown) (no (unknown) (unknown) inhalational (units (u nknown) date) spacing device #1 unknown) ea 11/01/19 (unknown) (no (unknown) (unknown) is estimated to be (units (unknown) date) at least 29 mmHg unknown) based on an estimated right atrial (unknown) (no (unknown) (unknown) last month for (units (unknown) date) multiple problems. unknown) Did have echocardiogram done. Please see (unknown) (no (unknown) (unknown) likely adversely (units (unknown) date) affecting all of unknown) the patient's other comorbidities. (unknown) (no (unknown) (unknown) lisinopril AdvReac (units (unknown) date) Mild Cough Verified unknown) 02/16/22 18:19 (unknown) (no (unknown) (unknown) lives with her son (units (unknown) date) and was recently unknown) homeless.? She was apparently confused, (unknown) (no (unknown) (unknown) losartan 50 mg (units (unknown) date) tablet 50 mg PO unknown) DAILY #90 tabs 02/09/22 (unknown) (no (unknown) (unknown) metoprolol (units (unk nown) date) tartrate 25 mg unknown) tablet 12.5 mg PO DAILY #45 tabs 12/11/21 (unknown) (no (unknown) (unknown) mg tablet (units (unkn own) date) unknown) (unknown) (no (unknown) (unknown) multiple times (units (unknown) date) when the son was unknown) contacted he was hard to be connected to and (unknown) (no (unknown) (unknown) nitroglycerin 0.4 (units (unknown) date) mg sublingual See unknown) Rx Instructions sublingual PRN 10/26/21 (unknown) (no (unknown) (unknown) nodule with (units (un known) date) recommendations for unknown) follow-up in 12 months and moderate stool (unknown) (no (unknown) (unknown) pain, CAD, (units (unk nown) date) anxiety, atrial unknown) fibrillation on anticoagulation, history of (unknown) (no (unknown) (unknown) pantoprazole 40 mg (units (unknown) date) tablet,delayed 40 unknown) mg PO DAILY #90 tabs 02/09/22 (unknown) (no (unknown) (unknown) patient declined (units (unknown) date) SNF placement, and unknown) will receive home health aide on discharge. (unknown) (no (unknown) (unknown) please add the (units (unknown) date) following: severe, unknown) acute protein-calorie malnutrition. This is (unknown) (no (unknown) (unknown) pressure of 8 mm (units (unknown) date) Hg. unknown) (unknown) (no (unknown) (unknown) regurgitation. (units (unknown) date) unknown) (unknown) (no (unknown) (unknown) relatively more (units (unknown) date) hypokinetic, but unknown) overall unchanged from prior exam. Diastolic (unknown) (no (unknown) (unknown) release (units (unkno wn) date) unknown) (unknown) (no (unknown) (unknown) relief. (units (unkno wn) date) unknown) (unknown) (no (unknown) (unknown) right MCA infarct (units (unknown) date) unknown) (unknown) (no (unknown) (unknown) right parietal and (units (unknown) date) temporal lobes unknown) consistent with a prior infarct in the right (unknown) (no (unknown) (unknown) sertraline (units (unk nown) date) [SERTRALINE] unknown) Allergy Mild FEELS Verified 02/16/22 18:19 (unknown) (no (unknown) (unknown) states she is in a (units (unknown) date) better living unknown) condition since being discharged last month. (unknown) (no (unknown) (unknown) states she only (units (unknown) date) eats 2 times a day unknown) consisting mostly of putting and peanut (unknown) (no (unknown) (unknown) systolic function (units (unknown) date) is mild to unknown) moderately reduced. (unknown) (no (unknown) (unknown) tablet (Nitrostat) (units (unknown) date) PRN Chest Pain #30 unknown) tabs (unknown) (no (unknown) (unknown) than 50% with a (units (unknown) date) sniff. This unknown) suggests a right atrial pressure of 8 mm Hg. 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 History of (units (unknown) date) coronary disease unknown) with bypass surgery. Recently admitted here (unknown) (no (unknown) (unknown) to have the (units (un known) date) patient undergo MRI unknown) imaging to further delineate this.? CT of the (unknown) (no (unknown) (unknown) trace leukocyte (units (unknown) date) esterase and will unknown) be cultured.? COVID-19 PCR is negative. (unknown) (no (unknown) (unknown) unchanged from (units (unknown) date) prior exam. unknown) (unknown) (no (unknown) (unknown) unkempt and (units (un known) date) appeared to be not unknown) cared for hygienic [place].? It appears that (unknown) (no (unknown) (unknown) valve leaflets are (units (unknown) date) mildly calcified. unknown) There is mild mitral regurgitation. (unknown) (no (unknown) (unknown) when they were (units (unknown) date) able to reach him unknown) he would request that the patient be sent home (unknown) (no (unknown) (unknown) with an EGFR of (units (unknown) date) 52, alk-phos unknown) elevated at 146 UA is positive for ketones and (unknown) (no (unknown) (unknown) with home (units (unkn own) date) nitroglycerin. To unknown) calm 81 mg aspirin. Denies any chest pain at this (unknown) (no (unknown) (unknown) with patient. (units ( unknown) date) Agrees for admit. unknown) (unknown) (no (unknown) (unknown) with stool and (units (unknown) date) urine. unknown) Result panel 10 (unknown) (no (unknown) (unknown) 2. This likely is (units (unknown) date) contributing unknown) greatly to problem 1. Continue home (unknown) (no (unknown) (unknown) Qty: 1 0RF (units (unk nown) date) unknown) (unknown) (no (unknown) (unknown) (no value) (units (unk nown) date) unknown) (unknown) (no (unknown) (unknown) Radiologist's (units ( unknown) date) Impression: unknown) (unknown) (no (unknown) (unknown) Date of Service: (units (unknown) date) 03/17/22 unknown) (unknown) (no (unknown) (unknown) (no value) (units (unk nown) date) unknown) (unknown) (no (unknown) (unknown) 'DRUGGED' (units (unkn own) date) unknown) (unknown) (no (unknown) (unknown) 02/16/22 23:18 (units (unknown) date) unknown) (unknown) (no (unknown) (unknown) 02/17/22 01:58 (units (unknown) date) unknown) (unknown) (no (unknown) (unknown) 02/17/22 02:01 (units (unknown) date) unknown) (unknown) (no (unknown) (unknown) 02/17/22 05:08 (units (unknown) date) unknown) (unknown) (no (unknown) (unknown) 03/17/22 20:07 (units (unknown) date) unknown) (unknown) (no (unknown) (unknown) 1 tab PO BID PRN (units (unknown) date) (Reason: pain) Qty: unknown) 20 0RF (unknown) (no (unknown) (unknown) 1 tab under tongue (units (unknown) date) every five minutes unknown) up to three times, call 911 if no (unknown) (no (unknown) (unknown) 1. Physical (units (un known) date) debility/deconditio unknown) gelacio (unknown) (no (unknown) (unknown) 12.5 mg PO DAILY (units (unknown) date) Qty: 45 0RF unknown) (unknown) (no (unknown) (unknown) [address] [place] [address] (units (unknown) date) unknown) (unknown) (no (unknown) (unknown) 2 g topical QID (units (unknown) date) Qty: 100 0RF unknown) (unknown) (no (unknown) (unknown) 3. Atrial (units (unkn own) date) fibrillation unknown) (unknown) (no (unknown) (unknown) 300 mg PO TID Qty: (units (unknown) date) 270 0RF unknown) (unknown) (no (unknown) (unknown) 4. 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 Will continue (units (unknown) date) torsemide 20 mg unknown) daily on discharge. (unknown) (no (unknown) (unknown) 40 mg PO BEDTIME (units (unknown) date) Qty: 90 0RF unknown) (unknown) (no (unknown) (unknown) 40 mg PO DAILY (units (unknown) date) Qty: 90 0RF unknown) (unknown) (no (unknown) (unknown) 5 mg PO BID Qty: (units (unknown) date) 180 1RF unknown) (unknown) (no (unknown) (unknown) 5. Hypertension (units (unknown) date) unknown) (unknown) (no (unknown) (unknown) 5. Will resume (units (unknown) date) home losartan 50 mg unknown) daily. (unknown) (no (unknown) (unknown) 50 mg PO DAILY (units (unknown) date) Qty: 90 1RF unknown) (unknown) (no (unknown) (unknown) 6. Conservative (units (unknown) date) management and unknown) encouraged ambulation. (unknown) (no (unknown) (unknown) 6. Constipation (units (unknown) date) with impaction, unknown) improved (unknown) (no (unknown) (unknown) Allergies (units (unkn own) date) unknown) (unknown) (no (unknown) (unknown) [place], [place] (units ( unknown) date) [id number] unknown) (unknown) (no (unknown) (unknown) As directed (units (un known) date) unknown) (unknown) (no (unknown) (unknown) Assessment: (units (un known) date) unknown) (unknown) (no (unknown) (unknown) Comment: (units (unkno wn) date) unknown) (unknown) (no (unknown) (unknown) Comment: APS case (units (unknown) date) for neglect unknown) (unknown) (no (unknown) (unknown) Comment: Failure (units (unknown) date) to thrive, needs unknown) placement? (unknown) (no (unknown) (unknown) Comment: Prior (units (unknown) date) CVA, mild unknown) dysarthria, syncopal episode (unknown) (no (unknown) (unknown) Comment: Prior (units (unknown) date) CVA, syncopal unknown) episode (unknown) (no (unknown) (unknown) Comment: Prior (units (unknown) date) CVA, syncopal unknown) episode, cognitive eval (unknown) (no (unknown) (unknown) Consult to (units (unk nown) date) Dietitian, Adult unknown) Routine (unknown) (no (unknown) (unknown) Consult to (units (unk nown) date) Discharge Planning unknown) Routine (unknown) (no (unknown) (unknown) Consult to [employer] - (units (unknown) 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) Routine (unknown) (no (unknown) (unknown) Consult to (units (unk nown) date) Occupational unknown) Therapy Evaluate + Treat (unknown) (no (unknown) (unknown) Consult to (units (unk nown) date) Physical Therapy unknown) Evaluate + Treat (unknown) (no (unknown) (unknown) Consult to Social (units (unknown) date) Services Routine unknown) (unknown) (no (unknown) (unknown) Consult to Speech (units (unknown) date) Therapy Evaluate + unknown) Treat (unknown) (no (unknown) (unknown) Discharge (units (unkn own) date) Diagnosis: unknown) (unknown) (no (unknown) (unknown) Discharge Summary (units (unknown) date) unknown) (unknown) (no (unknown) (unknown) Discharge (units (unkn own) date) provider: unknown) (unknown) (no (unknown) (unknown) Documented By: EB (units (unknown) date) unknown) (unknown) (no (unknown) (unknown) Documented By: NR (units (unknown) date) unknown) (unknown) (no (unknown) (unknown) Dose Instruction: (units (unknown) date) unknown) (unknown) (no (unknown) (unknown) ED Orders (units (unkn own) date) unknown) (unknown) (no (unknown) (unknown) Echocardiography (units (unknown) date) Report unknown) (unknown) (no (unknown) (unknown) Emergency Report (units (unknown) date) unknown) (unknown) (no (unknown) (unknown) Soo Singh MD (units (unknown) date) unknown) (unknown) (no (unknown) (unknown) Hold Instructions: (units (unknown) date) stopped at unknown) [facility] ([facility]) (no (unknown) (unknown) Hospital Course (units (unknown) date) unknown) (unknown) (no (unknown) (unknown) [facility] (units (unknown) date) unknown) (unknown) (no (unknown) (unknown) [facility] (units (unknown) date) [address] unknown) [place] [id number] (unknown) (no (unknown) (unknown) Lab Results (units (un known) date) unknown) (unknown) (no (unknown) (unknown) Last Admin: (units (un known) date) 03/17/22 22:13 unknown) Dose: 243 mg (unknown) (no (unknown) (unknown) Last Admin: (units (un known) date) 03/18/22 00:06 unknown) Dose: 25 mg (unknown) (no (unknown) (unknown) Last Admin: (units (un known) date) 03/18/22 00:06 unknown) Dose: 5 mg (unknown) (no (unknown) (unknown) Patient unable to (units (unknown) date) walk 200 feet unknown) without stopping to rest. (unknown) (no (unknown) (unknown) Physician (units (unkn own) date) Instructions: unknown) Evaluate and Treat (unknown) (no (unknown) (unknown) Physician (units (unkn own) date) Instructions: unknown) Evaluate and treat (unknown) (no (unknown) (unknown) Plan: (units (unkno wn) date) unknown) (unknown) (no (unknown) (unknown) Previous Rx's (units ( unknown) date) unknown) (unknown) (no (unknown) (unknown) Reason For Exam: (units (unknown) date) malnutrition + no unknown) teeth (unknown) (no (unknown) (unknown) Rx Instructions: (units (unknown) date) unknown) (unknown) (no (unknown) (unknown) See Rx (units (unkno wn) date) Instructions unknown) .ROUTE .MEDSUPPLY Qty: 1 0RF (unknown) (no (unknown) (unknown) See Rx (units (unkno wn) date) Instructions unknown) Sublingual PRN PRN (Reason: Chest Pain) Qty: 30 0RF (unknown) (no (unknown) (unknown) Signed (units (unkno wn) date) unknown) (unknown) (no (unknown) (unknown) Stop: 03/17/22 (units (unknown) date) 21:32 unknown) (unknown) (no (unknown) (unknown) Stop: 03/17/22 (units (unknown) date) 23:33 unknown) (unknown) (no (unknown) (unknown) Summary (units (unkno wn) date) unknown) (unknown) (no (unknown) (unknown) Vital Signs - 8 hr (units (unknown) date) unknown) (unknown) (no (unknown) (unknown) XRay Report (units (un known) date) unknown) (unknown) (no (unknown) (unknown) apply to single (units (unknown) date) elbow, wrist or unknown) hand; for hand includes palm/fingers/back of (unknown) (no (unknown) (unknown) (no value) (units (unk nown) date) unknown) (unknown) (no (unknown) (unknown) (DME) Aerochamber (units (unknown) date) MV Spacer unknown) (unknown) (no (unknown) (unknown) (DME) Handicap (units (unknown) date) Parking unknown) (unknown) (no (unknown) (unknown) ADDENDUMAs an (units (unknown) date) addendum to the unknown) assessment and plan portion of this note, (unknown) (no (unknown) (unknown) 01:30 (units (unkno wn) date) unknown) (unknown) (no (unknown) (unknown) 03/17/22 03/17/22 (units (unknown) date) 03/17/22 unknown) Range/Units (unknown) (no (unknown) (unknown) 03/18/22 (units (unkno wn) date) Range/Units unknown) (unknown) (no (unknown) (unknown) 20:07 20:07 22:12 (units (unknown) date) unknown) (unknown) (no (unknown) (unknown) apixaban 5 mg (units ( unknown) date) tablet unknown) (unknown) (no (unknown) (unknown) atorvastatin 40 mg (units (unknown) date) tablet unknown) (unknown) (no (unknown) (unknown) diclofenac sodium (units (unknown) date) 1 % gel unknown) (unknown) (no (unknown) (unknown) gabapentin (units (unk nown) date) [Neurontin] 300 mg unknown) capsule (unknown) (no (unknown) (unknown) hydrocodone-acetam (units (unknown) date) inophen 5-325 mg unknown) tablet (unknown) (no (unknown) (unknown) losartan 50 mg (units (unknown) date) tablet unknown) (unknown) (no (unknown) (unknown) metoprolol (units (unk nown) date) tartrate 25 mg unknown) tablet (unknown) (no (unknown) (unknown) nitroglycerin (units ( unknown) date) [Nitrostat] 0.4 mg unknown) tablet, sublingual (unknown) (no (unknown) (unknown) pantoprazole 40 mg (units (unknown) date) tablet,delayed unknown) release (DR/EC) (unknown) (no (unknown) (unknown) 03/17/22 (units (unkno wn) date) unknown) (unknown) (no (unknown) (unknown) 3. Will continue (units (unknown) date) Eliquis 5 mg bid unknown) for anticoagulation, with Lopressor 12.5 mg (unknown) (no (unknown) (unknown) Medication (units (unk nown) date) Instructions unknown) Recorded (unknown) (no (unknown) (unknown) Patient is awake (units (unknown) date) alert oriented x3. unknown) (unknown) (no (unknown) (unknown) and below (units (unkn own) date) unknown) (unknown) (no (unknown) (unknown) chest pain, st (units (unknown) date) elevation unknown) myocardial infarction and chest pain (unknown) (no (unknown) (unknown) rales, or rhonchi. (units (unknown) date) unknown) (unknown) (no (unknown) (unknown) <Electronically (units (unknown) date) signed by Soo unknown) MD Francisco> (unknown) (no (unknown) (unknown) (12/05/17) (units (unk nown) date) unknown) (unknown) (no (unknown) (unknown) (Aerochamber MV (units (unknown) date) spacer) unknown) (unknown) (no (unknown) (unknown) (Neurontin) (units (un known) date) unknown) (unknown) (no (unknown) (unknown) +---------+? (units (unknown) date) ? unknown) [phone]? +---------+ (unknown) (no (unknown) (unknown) +---------+? (units (unknown) date) ? unknown) Hospital? +---------+ (unknown) (no (unknown) (unknown) + (units (unknown) date) unknown) ---+ (unknown) (no (unknown) (unknown) 00:06 03/18/22 (units (unknown) date) unknown) (unknown) (no (unknown) (unknown) 01:00 (units (unkno wn) date) unknown) (unknown) (no (unknown) (unknown) 02/16/22 21:54 (units (unknown) date) unknown) (unknown) (no (unknown) (unknown) 02/20/22 1321 (units ( unknown) date) unknown) (unknown) (no (unknown) (unknown) 03/17/22 20:07 (units (unknown) date) unknown) (unknown) (no (unknown) (unknown) 03/17/22 21:08 (units (unknown) date) unknown) (unknown) (no (unknown) (unknown) 03/17/22 21:09 (units (unknown) date) unknown) (unknown) (no (unknown) (unknown) 03/18/22 00:22 (units (unknown) date) unknown) (unknown) (no (unknown) (unknown) 03/18/22 01:30 (units (unknown) date) unknown) (unknown) (no (unknown) (unknown) 1. 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 (unknown) (no (unknown) (unknown) 1. Physical (units (un known) date) debility/deconditio unknown) gelacio (unknown) (no (unknown) (unknown) 1. This is likely (units (unknown) date) a function of unknown) advancing age and sedentary status at home. The (unknown) (no (unknown) (unknown) 1. This is likely (units (unknown) date) a function of unknown) advancing age and sedentary status at home. 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 This likely is (units (unknown) date) contributing unknown) greatly to problem 1. Continue home (unknown) (no (unknown) (unknown) 215-1 (units (unkno wn) date) unknown) (unknown) (no (unknown) (unknown) 21:05 03/18/22 (units (unknown) date) unknown) (unknown) (no (unknown) (unknown) 3. Atrial (units (unkn own) date) fibrillation unknown) (unknown) (no (unknown) (unknown) 3. Will continue (units (unknown) date) Eliquis 5 mg bid unknown) for anticoagulation, with Lopressor 12.5 mg (unknown) (no (unknown) (unknown) 4. 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 Will continue (units (unknown) date) torsemide 20 mg unknown) daily on discharge. (unknown) (no (unknown) (unknown) 5. Hypertension (units (unknown) date) unknown) (unknown) (no (unknown) (unknown) 5. Will resume (units (unknown) date) home losartan 50 mg unknown) daily. (unknown) (no (unknown) (unknown) 6. Conservative (units (unknown) date) management and unknown) encouraged ambulation. (unknown) (no (unknown) (unknown) 6. Constipation (units (unknown) date) with impaction, unknown) improved (unknown) (no (unknown) (unknown) : ? : ? ? ? (units (unknown) date) ? unknown) Phone: [phone]? : ? : (unknown) (no (unknown) (unknown) : ? :? (units (unknown) date) ? [address] ? : ? : (unknown) (no (unknown) (unknown) : ? :? (units (unknown) date) ? unknown) [id number] ? : ? : (unknown) (no (unknown) (unknown) : ? :? (units (unknown) date) ? unknown) [place], [place] ? : ? : (unknown) (no (unknown) (unknown) :Account #: (units (un known) date) [id number]? unknown) Gender: Female ? BSA: 1.7 m2? ? : (unknown) (no (unknown) (unknown) :: 1935? (units (unknown) date) ? Age: unknown) 86 yrs? BP: 184/97 mmHg: (unknown) (no (unknown) (unknown) :Hospital MRN #: (units (unknown) date) [id number] ? ? unknown) ReadingLocation: ? Weight: 128 lb : (unknown) (no (unknown) (unknown) :Name: YAMILKA, (units (unknown) date) JACKIE Barba? ? ? unknown) Study Date: 02/17/2022 ? Height: 67 in? : (unknown) (no (unknown) (unknown) :Ordering (units (unkn own) date) Physician: ASHA, unknown) DEBRAPerformed By: Lyly Casanova? : (unknown) (no (unknown) (unknown) :Reason For Study: (units (unknown) date) CVA? unknown) ? : (unknown) (no (unknown) (unknown) :Referring: BARRY, (units (unknown) date) ELIANA ? unknown) ? : (unknown) (no (unknown) (unknown) ? (units (unkno wn) date) unknown) (unknown) (no (unknown) (unknown) ? (units (unknown) date) ? unknown) ? Date of (unknown) (no (unknown) (unknown) ? (units (unknown) date) ? unknown) [place] (unknown) (no (unknown) (unknown) ? (units (unknown) date) Electronically unknown) signed by: Charlie Clemente on 02/17/2022 09:11 (unknown) (no (unknown) (unknown) ? (units (unkno wn) date) unknown) (unknown) (no (unknown) (unknown) ? (units (unknown) date) ? unknown) sev ratio: 0.49 (unknown) (no (unknown) (unknown) ? (units (unknown) date) ? unknown) Echocardiogram Report (unknown) (no (unknown) (unknown) ALT (<35) IU/L (units (unknown) date) unknown) (unknown) (no (unknown) (unknown) ALT 10 (<35) (units (unknown) date) IU/L unknown) (unknown) (no (unknown) (unknown) AST (14-36) (units ( unknown) date) IU/L unknown) (unknown) (no (unknown) (unknown) AST 26 (14-36) (units (unknown) date) IU/L unknown) (unknown) (no (unknown) (unknown) Abdominal pain (units (unknown) date) unknown) (unknown) (no (unknown) (unknown) Accession Number: (units (unknown) date) [id number] ?? unknown) (unknown) (no (unknown) (unknown) Accession Number: (units (unknown) date) [id number] ?? unknown) (unknown) (no (unknown) (unknown) Acct:[id number] (units (unknown) date) unknown) (unknown) (no (unknown) (unknown) Acct:[id number] (units (unknown) date) unknown) (unknown) (no (unknown) (unknown) Acute pancreatitis (units (unknown) date) unknown) (unknown) (no (unknown) (unknown) Addendum (units (unkno wn) date) Documented By: unknown) (unknown) (no (unknown) (unknown) Addendum Signed (units (unknown) date) By: unknown) (unknown) (no (unknown) (unknown) Age/Sex: 86 / F (units (unknown) date) unknown) (unknown) (no (unknown) (unknown) Age/Sex: 86 / F (units (unknown) date) unknown) (unknown) (no (unknown) (unknown) Albumin (units (o wn) date) (3.5-5.0) g/dL unknown) (unknown) (no (unknown) (unknown) Albumin 4.1 (units ( unknown) date) (3.5-5.0) g/dL unknown) (unknown) (no (unknown) (unknown) Albumin/Globulin (units (unknown) date) Ratio (1.0-2.8) unknown) (unknown) (no (unknown) (unknown) Albumin/Globulin (units (unknown) date) Ratio 1.2 unknown) (1.0-2.8) (unknown) (no (unknown) (unknown) Alkaline (units (o wn) date) Phosphatase unknown) (38-126) U/L (unknown) (no (unknown) (unknown) Alkaline (units (o wn) date) Phosphatase 116 unknown) (38-126) U/L (unknown) (no (unknown) (unknown) Allergy/AdvReac (units (unknown) date) Type Severity unknown) Reaction Status Date / Time (unknown) (no (unknown) (unknown) Anesthesia (units (unk nown) date) unknown) (unknown) (no (unknown) (unknown) Anxiety (units (unkno wn) date) unknown) (unknown) (no (unknown) (unknown) Ao V2 VTI: 24.6 cm (units (unknown) date) ? unknown) SALO(V,D): 1.4 cm2 (unknown) (no (unknown) (unknown) Ao V2 max: 137.4 (units (unknown) date) cm/sec? unknown) LVOT Max Benjamin: 61.4 cm/sec (unknown) (no (unknown) (unknown) Ao V2 mean: 98.4 (units (unknown) date) cm/sec? LV unknown) V1 max P.5 mmHg (unknown) (no (unknown) (unknown) Ao max P.6 (units (unknown) date) mmHg? unknown) LV V1 VTI: 11.9 cm (unknown) (no (unknown) (unknown) Ao mean P.3 (units (unknown) date) mmHg ? unknown) SALO(I,D): 1.5 cm2 (unknown) (no (unknown) (unknown) Aortic Valve: ? (units (unknown) date) The aortic valve is unknown) mildly calcified. There is no (unknown) (no (unknown) (unknown) Apixaban (Apixaban (units (unknown) date) 5 Mg Tablet) 5 mg unknown) PO NOW ONE (unknown) (no (unknown) (unknown) Approved by: (units (u nknown) date) Hemant Marvin, unknownShruti Winkler on 03/17/2022 at 23:01 ? 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 The left (units (unknown) date) atrium is severely unknown) dilated. The right atrium is severely (unknown) (no (unknown) (unknown) Atrial (units (unkno wn) date) fibrillation rate unknown) [address] elevation or depression (unknown) (no (unknown) (unknown) BACK: No flank (units (unknown) date) tenderness. unknown) (unknown) (no (unknown) (unknown) BUN (7-17) (units (u nknown) date) mg/dL unknown) (unknown) (no (unknown) (unknown) BUN 18 H (units (unk nown) date) (7-17) mg/dL unknown) (unknown) (no (unknown) (unknown) BUN/Creatinine (units (unknown) date) Ratio (6-) unknown) (unknown) (no (unknown) (unknown) BUN/Creatinine (units (unknown) date) Ratio 20.7 unknown) (-) (unknown) (no (unknown) (unknown) Baso # (Auto) (units ( unknown) date) (0-100) /uL unknown) (unknown) (no (unknown) (unknown) Baso # (Auto) 0 (units (unknown) date) (0-100) /uL unknown) (unknown) (no (unknown) (unknown) Baso % (Auto) (units ( unknown) date) (0-2) % unknown) (unknown) (no (unknown) (unknown) Baso % (Auto) 0.7 (units (unknown) date) (0-2) % unknown) (unknown) (no (unknown) (unknown) Blood Pressure (units (unknown) date) 201/119 H 03/17/22 unknown) 21:05 (unknown) (no (unknown) (unknown) Blood Pressure (units (unknown) date) 201/119 H 191/91 H unknown) 202/98 H (unknown) (no (unknown) (unknown) Bones and chest (units (unknown) date) wall:? No unknown) suspicious bony lesions.? 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) unknown) (unknown) (no (unknown) (unknown) CARDIOVASCULAR: (units (unknown) date) Positive for chest unknown) pain, negative for palpitations (unknown) (no (unknown) (unknown) CARDIOVASCULAR: (units (unknown) date) Regular rate and unknown) rhythm without murmurs (unknown) (no (unknown) (unknown) CK-MB (CK-2) (units (u nknown) date) unknown) (unknown) (no (unknown) (unknown) CK-MB (CK-2) TNP (units (unknown) date) unknown) (unknown) (no (unknown) (unknown) CK-MB (CK-2) Rel (units (unknown) date) Index unknown) (unknown) (no (unknown) (unknown) CK-MB (CK-2) Rel (units (unknown) date) Index TNP unknown) (unknown) (no (unknown) (unknown) COMPARISON:? (units (u nknown) date) [facility], unknown) CR, XR CHEST 1V, 02/13/2022, 20:46. (unknown) (no (unknown) (unknown) COVID19 -Nasal (units (unknown) date) RAPID/Pre-Proc Stat unknown) (unknown) (no (unknown) (unknown) CT of the head did (units (unknown) date) report prior unknown) cortical and subcortical encephalomalacia on the (unknown) (no (unknown) (unknown) Calcified nodule (units (unknown) date) unknown) (unknown) (no (unknown) (unknown) Calcium (units (unkno wn) date) (8.4-10.2) mg/dL unknown) (unknown) (no (unknown) (unknown) Calcium 9.1 (units ( unknown) date) (8.4-10.2) mg/dL unknown) (unknown) (no (unknown) (unknown) Carbon Dioxide (units (unknown) date) (22-32) mmol/L unknown) (unknown) (no (unknown) (unknown) Carbon Dioxide (units (unknown) date) 27 (22-32) unknown) mmol/L (unknown) (no (unknown) (unknown) Jackie Prather (units (unknown) date) is an 86-year-old unknown) female with a history of chronic abdominal (unknown) (no (unknown) (unknown) 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 (unknown) (no (unknown) (unknown) Cervical cancer, (units (unknown) date) FIGO stage I unknown) (unknown) (no (unknown) (unknown) Chest x-ray: (units (u nknown) date) unknown) (unknown) (no (unknown) (unknown) Chief Complaint: (units (unknown) date) Chest Pain unknown) (unknown) (no (unknown) (unknown) Chief complaint: (units (unknown) date) Decreased LOC unknown) (unknown) (no (unknown) (unknown) Chloride (units (unkno wn) date) (98-107) mmol/L unknown) (unknown) (no (unknown) (unknown) Chloride 103 (units (unknown) date) (98-107) mmol/L unknown) (unknown) (no (unknown) (unknown) Cholelithiasis (units (unknown) date) unknown) (unknown) (no (unknown) (unknown) Chronic back pain (units (unknown) date) unknown) (unknown) (no (unknown) (unknown) Comparison is made (units (unknown) date) with the unknown) echocardiogram of 08/17/2019. 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) Stat (unknown) (no (unknown) (unknown) Consultation #1: (units (unknown) date) unknown) (unknown) (no (unknown) (unknown) Consultations (units ( unknown) date) unknown) (unknown) (no (unknown) (unknown) Consults: (units (unkn own) date) unknown) (unknown) (no (unknown) (unknown) Course (units (unkno wn) date) unknown) (unknown) (no (unknown) (unknown) Course Narrative: (units (unknown) date) unknown) (unknown) (no (unknown) (unknown) Creatinine (units (unk nown) date) (0.52-1.04) mg/dL unknown) (unknown) (no (unknown) (unknown) Creatinine 0.87 (units (unknown) date) (0.52-1.04) mg/dL unknown) (unknown) (no (unknown) (unknown) : 1935 (units (unknown) date) Acct:[id number] unknown) (unknown) (no (unknown) (unknown) : 1935 (units (unknown) date) unknown) (unknown) (no (unknown) (unknown) Date of Service: (units (unknown) date) 02/17/22 unknown) (unknown) (no (unknown) (unknown) Date of Service: (units (unknown) date) 03/17/22 unknown) (unknown) (no (unknown) (unknown) Date of admission: (units (unknown) date) unknown) (unknown) (no (unknown) (unknown) Decision to Admit (units (unknown) date) Date: 03/18/22 unknown) (unknown) (no (unknown) (unknown) Decision to Admit (units (unknown) date) time: 02:42 unknown) (unknown) (no (unknown) (unknown) Departure (units (unkn own) date) unknown) (unknown) (no (unknown) (unknown) Developmental (units ( unknown) date) disorder unknown) (unknown) (no (unknown) (unknown) Diarrhea (units (unkno wn) date) unknown) (unknown) (no (unknown) (unknown) Dictated by: (units (u nknown) date) cally Barton M.D. on 03/17/2022 at 23:00 ? ? (unknown) (no (unknown) (unknown) Differential (units (u nknown) date) Diagnosis unknown) (unknown) (no (unknown) (unknown) Differential (units (un known) date) diagnosis: Likely unknown) stable angina, unstable angina pectoris, atypical (unknown) (no (unknown) (unknown) Discharge (units (unkn own) date) Assessment + Plan unknown) (unknown) (no (unknown) (unknown) Discharge Date: (units (unknown) date) 02/19/22 unknown) (unknown) (no (unknown) (unknown) Discharge Plan (units (unknown) date) unknown) (unknown) (no (unknown) (unknown) Discharge (units (unkn own) date) Providers unknown) (unknown) (no (unknown) (unknown) Discontinued (units (u nknown) date) Medications unknown) (unknown) (no (unknown) (unknown) Doppler (units (unkno wn) date) Measurements + unknown) Calculations (unknown) (no (unknown) (unknown) E/E' lat: 10.4 (units (unknown) date) unknown) (unknown) (no (unknown) (unknown) E/E' med: 16.6 ? ? (units (unknown) date) ? PA unknown) mean P.8 mmHg (unknown) (no (unknown) (unknown) E/e' average: 13.5 (units (unknown) date) unknown) (unknown) (no (unknown) (unknown) ECG Data (units (unkno wn) date) unknown) (unknown) (no (unknown) (unknown) EKG-12 Lead Stat (units (unknown) date) unknown) (unknown) (no (unknown) (unknown) ENT: Mucous (units (u nknown) date) membranes moist. unknown) (unknown) (no (unknown) (unknown) ER Physician: (units ( unknown) date) Jossue Salcido MD unknown) (unknown) (no (unknown) (unknown) EXTREMITIES: No (units (unknown) date) gross deformities. unknown) (unknown) (no (unknown) (unknown) EYES: Pupils equal (units (unknown) date) round No scleral unknown) icterus. (unknown) (no (unknown) (unknown) Eos # (Auto) (units (u nknown) date) (0-450) /uL unknown) (unknown) (no (unknown) (unknown) Eos # (Auto) 0 (units (unknown) date) (0-450) /uL unknown) (unknown) (no (unknown) (unknown) Eos % (Auto) (units (u nknown) date) (2-4) % unknown) (unknown) (no (unknown) (unknown) Eos % (Auto) 0.8 (units (unknown) date) L (2-4) % unknown) (unknown) (no (unknown) (unknown) Essential (units (unkn own) date) hypertension unknown) (09/28/12) (unknown) (no (unknown) (unknown) Estimated GFR > (units (unknown) date) 60 (>60) mL/min unknown) (unknown) (no (unknown) (unknown) Estimated GFR (units ( unknown) date) (>60) mL/min unknown) (unknown) (no (unknown) (unknown) Exam (units (unkno wn) date) unknown) (unknown) (no (unknown) (unknown) Exam Narrative: (units (unknown) date) unknown) (unknown) (no (unknown) (unknown) FINDINGS:? (units (unk nown) date) unknown) (unknown) (no (unknown) (unknown) FS: 18.5 %? (units (unknown) date) ? unknown) ? asc Aorta Diam: 3.2 cm (unknown) (no (unknown) (unknown) Failure to thrive (units (unknown) date) in adult unknown) (unknown) (no (unknown) (unknown) Fibrocystic breast (units (unknown) date) disease unknown) (unknown) (no (unknown) (unknown) GASTROINTESTINAL: (units (unknown) date) Abdomen soft, unknown) non-tender (unknown) (no (unknown) (unknown) GASTROINTESTINAL: (units (unknown) date) Denies nausea, unknown) vomiting, abdominal pain (unknown) (no (unknown) (unknown) GENERAL: Denies (units (unknown) date) chills, fatigue, unknown) malaise, fever, sweats. (unknown) (no (unknown) (unknown) GENERAL: in no (units (unknown) date) distress, not toxic unknown) not dyspneic (unknown) (no (unknown) (unknown) GERD (units (unkno wn) date) (gastroesophageal unknown) reflux disease) (unknown) (no (unknown) (unknown) : Denies (units (unk nown) date) dysuria, frequency, unknown) hematuria (unknown) (no (unknown) (unknown) Alyssa Robison MD (units (unknown) date) unknown) (unknown) (no (unknown) (unknown) General (units (unkno wn) date) unknown) (unknown) (no (unknown) (unknown) GenericComposite[?? (units (unknown) date) ? unknown) ? SALO indexed to BSA (cm^2/m^2): 0.90 ] (unknown) (no (unknown) (unknown) GenericComposite[L (units (unknown) date) V cage. unknown) diameter/BSA (cm/m^2): 2.9 ] (unknown) (no (unknown) (unknown) GenericComposite[L (units (unknown) date) V sys. diameter/BSA unknown) (cm/m^2): 2.4 ] (unknown) (no (unknown) (unknown) GenericComposite[P (units (unknown) date) lt Count unknown) (150-400) X10^3/uL ] (unknown) (no (unknown) (unknown) GenericComposite[P (units (unknown) date) lt Count 250 unknown) (150-400) X10^3/uL ] (unknown) (no (unknown) (unknown) GenericComposite[R (units (unknown) date) BC (4.0-5.2) unknown) X10^6/uL ] (unknown) (no (unknown) (unknown) GenericComposite[R (units (unknown) date) BC 4.32 unknown) (4.0-5.2) X10^6/uL ] (unknown) (no (unknown) (unknown) GenericComposite[W (units (unknown) date) BC (4.5-11.0) unknown) X10^3/uL ] (unknown) (no (unknown) (unknown) GenericComposite[W (units (unknown) date) BC 6.2 unknown) (4.5-11.0) X10^3/uL ] (unknown) (no (unknown) (unknown) Globulin (units (unkno wn) date) (1.7-4.1) g/dL unknown) (unknown) (no (unknown) (unknown) Globulin 3.5 (units (unknown) date) (1.7-4.1) g/dL unknown) (unknown) (no (unknown) (unknown) Glucose (80-110) (units (unknown) date) mg/dL unknown) (unknown) (no (unknown) (unknown) Glucose 99 (units (u nknown) date) (80-110) mg/dL unknown) (unknown) (no (unknown) (unknown) Great Vessels: ? (units (unknown) date) The aortic root is unknown) normal size. The dimensions of the (unknown) (no (unknown) (unknown) HEAD: (units (unkno wn) date) Normocephalic. unknown) (unknown) (no (unknown) (unknown) HEENT: Denies (units ( unknown) date) sinus pain, ear unknown) pain, sore throat (unknown) (no (unknown) (unknown) HPI - Chest Pain (units (unknown) date) unknown) (unknown) (no (unknown) (unknown) HPI narrative: (units (unknown) date) unknown) (unknown) (no (unknown) (unknown) Handicap Parking (units (unknown) date) #1 ea 01/12/19 unknown) (unknown) (no (unknown) (unknown) Soo Singh MD (units (unknown) date) unknown) (unknown) (no (unknown) (unknown) Hct (36-46) % (units (unknown) date) unknown) (unknown) (no (unknown) (unknown) Hct 39.2 (units (unkn own) date) (36-46) % unknown) (unknown) (no (unknown) (unknown) Hgb (12.0-16.0) (units (unknown) date) g/dL unknown) (unknown) (no (unknown) (unknown) Hgb 13.0 (units (unkn own) date) (12.0-16.0) g/dL unknown) (unknown) (no (unknown) (unknown) History of Present (units (unknown) date) Illness unknown) (unknown) (no (unknown) (unknown) History of colon (units (unknown) date) polyps (09/28/12) unknown) (unknown) (no (unknown) (unknown) History of left (units (unknown) date) breast cancer unknown) (-2008) (unknown) (no (unknown) (unknown) Hyperlipidemia (units (unknown) date) unknown) 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 (units (u nknown) date) unknown) (unknown) (no (unknown) (unknown) INDICATIONS:? (units ( unknown) date) chest pain unknown) (unknown) (no (unknown) (unknown) IVSd: 1.1 cm (units (u nknown) date) unknown) (unknown) (no (unknown) (unknown) Imaging Data (units (u nknown) date) unknown) (unknown) (no (unknown) (unknown) Initial Vital (units ( unknown) date) Signs unknown) (unknown) (no (unknown) (unknown) Initial Vital (units ( unknown) date) Signs: unknown) (unknown) (no (unknown) (unknown) Interpretation (units (unknown) date) Summary unknown) (unknown) (no (unknown) (unknown) Interpretation: (units (unknown) date) unknown) (unknown) (no (unknown) (unknown) LA A2 area: 27.3 (units (unknown) date) cm2? unknown) ? RA long axis: 6.0 cm (unknown) (no (unknown) (unknown) LA A4 area: 30.0 (units (unknown) date) cm2? unknown) ? RA area: 23.9 cm2 (unknown) (no (unknown) (unknown) LA length (vol): (units (unknown) date) 6.6 cm ? unknown) ? RA vol: 80.6 ml (unknown) (no (unknown) (unknown) LA vol index: 63.5 (units (unknown) date) ml/m2? unknown) ? IVC diam: 1.4 cm (unknown) (no (unknown) (unknown) LA vol: 106.2 ml? (units (unknown) date) ? unknown) ? RA : 48.2 ml/m2 (unknown) (no (unknown) (unknown) LVIDd: 4.9 cm ? ? (units (unknown) date) ? unknown) ? LVOT diam: 2.0 cm (unknown) (no (unknown) (unknown) LVIDs: 4.0 cm ? ? (units (unknown) date) ? unknown) ? Ao root diam: 3.2 cm (unknown) (no (unknown) (unknown) LVPWd: 0.96 cm (units (unknown) date) unknown) (unknown) (no (unknown) (unknown) Lab Data (units (unkno wn) date) unknown) (unknown) (no (unknown) (unknown) Labs: (units (unkno wn) date) unknown) (unknown) (no (unknown) (unknown) Lat Peak E' Benjamin: (units (unknown) date) 9.3 cm/sec? ? ? PA unknown) pr(Accel): 44.7 mmHg (unknown) (no (unknown) (unknown) Left Ventricle: ? (units (unknown) date) The left ventricle unknown) is normal in size and wall thickness. The (unknown) (no (unknown) (unknown) Limitations: (units (u nknown) date) altered mental unknown) status (unknown) (no (unknown) (unknown) Lipase (23-300) (units (unknown) date) U/L unknown) (unknown) (no (unknown) (unknown) Lipase 45 (units (un known) date) (23-300) U/L unknown) (unknown) (no (unknown) (unknown) Lipase Stat (units (un known) date) unknown) (unknown) (no (unknown) (unknown) Loc: AC (units (unkno wn) date) unknown) (unknown) (no (unknown) (unknown) Loc: ED (units (unkno wn) date) unknown) (unknown) (no (unknown) (unknown) Lungs and pleura:? (units (unknown) date) There is unknown) hyperinflation of the lungs with flattening of the (unknown) (no (unknown) (unknown) Lymph # (Auto) (units (unknown) date) (2140-5992) /uL unknown) (unknown) (no (unknown) (unknown) Lymph # (Auto) (units (unknown) date) 1300 (4748-6148) unknown) /uL (unknown) (no (unknown) (unknown) Lymph % (Auto) (units (unknown) date) (25-40) % unknown) (unknown) (no (unknown) (unknown) Lymph % (Auto) (units (unknown) date) 20.2 L (25-40) unknown) % (unknown) (no (unknown) (unknown) [id number] (units (unk nown) date) unknown) (unknown) (no (unknown) (unknown) MCA territory and (units (unknown) date) suggested if there unknown) were concerned of an acute on chronic CVA (unknown) (no (unknown) (unknown) MCH (26-34) PG (units (unknown) date) unknown) (unknown) (no (unknown) (unknown) MCH 30.1 (units (unkn own) date) (26-34) PG unknown) (unknown) (no (unknown) (unknown) MCHC (30-36) % (units (unknown) date) unknown) (unknown) (no (unknown) (unknown) MCHC 33.2 (units (unk nown) date) (30-36) % unknown) (unknown) (no (unknown) (unknown) MCV (80-100) fL (units (unknown) date) unknown) (unknown) (no (unknown) (unknown) MCV 90.9 (units (unkn own) date) (80-100) fL unknown) (unknown) (no (unknown) (unknown) MDM - Chest Pain (units (unknown) date) unknown) (unknown) (no (unknown) (unknown) MMode/2D (units (unkno wn) date) Measurements + unknown) Calculations (unknown) (no (unknown) (unknown) MR#: [id number] (units (unknown) date) unknown) (unknown) (no (unknown) (unknown) MUSCULOSKELETAL: (units (unknown) date) denies muscle or unknown) bony pain (unknown) (no (unknown) (unknown) MV A max benjamin: 2.1 (units (unknown) date) cm/sec ? TR unknown) max P.8 mmHg (unknown) (no (unknown) (unknown) MV E max benjamin: 96.4 (units (unknown) date) cm/sec? TR unknown) max benjamin: 228.2 cm/sec (unknown) (no (unknown) (unknown) MV E/A: 46.5 ? ? ? (units (unknown) date) ? PA V2 unknown) max: 95.2 cm/sec (unknown) (no (unknown) (unknown) MV dec time: 0.23 (units (unknown) date) sec unknown) (unknown) (no (unknown) (unknown) Magnesium (units (unkn own) date) (1.6-2.3) mg/dL unknown) (unknown) (no (unknown) (unknown) Magnesium 2.0 (units (unknown) date) (1.6-2.3) mg/dL unknown) (unknown) (no (unknown) (unknown) Magnesium Stat (units (unknown) date) unknown) (unknown) (no (unknown) (unknown) Measles (units (unkno wn) date) unknown) (unknown) (no (unknown) (unknown) Med Peak E' Benjamin: (units (unknown) date) 5.8 cm/sec? ? ? PA unknown) V2 mean: 64.6 cm/sec (unknown) (no (unknown) (unknown) Mediastinum:? (units ( unknown) date) Mediastinal unknown) contours are unchanged.? 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 (units (unknown) date) There is moderate unknown) mitral annular calcification. The mitral (unknown) (no (unknown) (unknown) Mode of arrival: (units (unknown) date) EMS unknown) (unknown) (no (unknown) (unknown) [place] # (Auto) (units ( unknown) date) (0-900) /uL unknown) (unknown) (no (unknown) (unknown) [place] # (Auto) 400 (units (unknown) date) (0-900) /uL unknown) (unknown) (no (unknown) (unknown) [place] % (Auto) (units ( unknown) date) (3-14) % unknown) (unknown) (no (unknown) (unknown) [place] % (Auto) 7.2 (units (unknown) date) (3-14) % unknown) (unknown) (no (unknown) (unknown) NECK: Trachea (units ( unknown) date) midline. unknown) (unknown) (no (unknown) (unknown) NEURO: AOx4. (units (u nknown) date) unknown) (unknown) (no (unknown) (unknown) NEUROLOGIC: Denies (units (unknown) date) weakness, numbness unknown) (unknown) (no (unknown) (unknown) Narrative (units (unkn own) date) unknown) (unknown) (no (unknown) (unknown) Narrative: (units (unk nown) date) unknown) (unknown) (no (unknown) (unknown) Narrative: (units (unk nown) date) unknown) (unknown) (no (unknown) (unknown) Neut # (Auto) (units ( unknown) date) (6895-4696) /uL unknown) (unknown) (no (unknown) (unknown) Neut # (Auto) (units ( unknown) date) 4400 (1885-3661) unknown) /uL (unknown) (no (unknown) (unknown) Neut % (Auto) (units ( unknown) date) (50-75) % unknown) (unknown) (no (unknown) (unknown) Neut % (Auto) (units ( unknown) date) 71.1 (50-75) % unknown) (unknown) (no (unknown) (unknown) No Action (units (unkn own) date) unknown) (unknown) (no (unknown) (unknown) No chest pain (units ( unknown) date) here. Blood unknown) pressure 170/89. It has improved. Reviewed results (unknown) (no (unknown) (unknown) No new issues (units ( unknown) date) during course of unknown) stay (unknown) (no (unknown) (unknown) No recent illness (units (unknown) date) fever chills cough unknown) cold or congestion. No urinary complaints. (unknown) (no (unknown) (unknown) Ordered: (units (unkno wn) date) unknown) (unknown) (no (unknown) (unknown) Ordering Provider: (units (unknown) date) Jossue Salcido MD unknown) (unknown) (no (unknown) (unknown) Ordering Provider: (units (unknown) date) Eliana Barry unknown) (unknown) (no (unknown) (unknown) Orders (units (unkno wn) date) unknown) (unknown) (no (unknown) (unknown) Osteoarthritis of (units (unknown) date) knees, bilateral unknown) (unknown) (no (unknown) (unknown) Overall no (units (unk nown) date) significant change unknown) from prior exam. However, there the MR and TR (unknown) (no (unknown) (unknown) Oxygen Delivery (units (unknown) date) Method 03/17/22 unknown) 21:05 (unknown) (no (unknown) (unknown) Oxygen Delivery (units (unknown) date) Method Room Air unknown) (unknown) (no (unknown) (unknown) PROCEDURE:? XR (units (unknown) date) CHEST 1V unknown) (unknown) (no (unknown) (unknown) PSYCH: Not (units (un known) date) anxious, is unknown) cooperative (unknown) (no (unknown) (unknown) Patient (units (unkno wn) date) Disposition: Home unknown) (unknown) (no (unknown) (unknown) Patient History (units (unknown) date) unknown) (unknown) (no (unknown) (unknown) Patient brought (units (unknown) date) here by ambulance unknown) from home. Complaints of chest pain relief (unknown) (no (unknown) (unknown) Patient: (units (unkno wn) date) Jackie Prather unknown) MR#: (unknown) (no (unknown) (unknown) Patient: (units (unkno wn) date) Jackie Prather unknown) (unknown) (no (unknown) (unknown) Pericardium/ (units (u nknown) date) Pleura ? There is unknown) no pericardial effusion. 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 (units (unknown) date) The pulmonic valve unknown) is not well seen, but is grossly normal. (unknown) (no (unknown) (unknown) Pulse Oximetry 96 (units (unknown) date) 03/17/22 21:05 unknown) (unknown) (no (unknown) (unknown) Pulse Oximetry 96 (units (unknown) date) unknown) (unknown) (no (unknown) (unknown) Pulse Rate 118 H (units (unknown) date) 03/17/22 21:05 unknown) (unknown) (no (unknown) (unknown) Pulse Rate 118 H (units (unknown) date) 98 H 82 unknown) (unknown) (no (unknown) (unknown) RDW (11.6-14.8) (units (unknown) date) % unknown) (unknown) (no (unknown) (unknown) RDW 14.7 (units (unkn own) date) (11.6-14.8) % unknown) (unknown) (no (unknown) (unknown) RESPIRATORY: Clear (units (unknown) date) to auscultation. unknown) Breath sounds equal bilaterally. No wheezes, (unknown) (no (unknown) (unknown) RESPIRATORY: (units (u nknown) date) Denies dyspnea, unknown) cough (unknown) (no (unknown) (unknown) ROS Unobtainable: (units (unknown) date) All systems unknown) reviewed + are unremarkable except as noted in HPI (unknown) (no (unknown) (unknown) RVD1 (basal): 3.8 (units (unknown) date) cm unknown) (unknown) (no (unknown) (unknown) RVD2 (mid): 3.8 cm (units (unknown) date) unknown) (unknown) (no (unknown) (unknown) Reading (units (unkno wn) date) Physician:AM unknown) (unknown) (no (unknown) (unknown) Reevaluation #1: (units (unknown) date) unknown) (unknown) (no (unknown) (unknown) Reevaluation(s) (units (unknown) date) unknown) (unknown) (no (unknown) (unknown) Related Data (units (u nknown) date) unknown) (unknown) (no (unknown) (unknown) Respiratory Rate (units (unknown) date) 20 03/17/22 21:05 unknown) (unknown) (no (unknown) (unknown) Respiratory Rate (units (unknown) date) 20 unknown) (unknown) (no (unknown) (unknown) Result diagrams: (units (unknown) date) unknown) (unknown) (no (unknown) (unknown) Review of Systems (units (unknown) date) unknown) (unknown) (no (unknown) (unknown) Right Ventricle: ? (units (unknown) date) The right ventricle unknown) is normal size. Right ventricular (unknown) (no (unknown) (unknown) Right ventricular (units (unknown) date) systolic function unknown) is mild to moderately reduced. (unknown) (no (unknown) (unknown) SARS-CoV-2 (PCR) (units (unknown) date) Negative unknown) (Negative) (unknown) (no (unknown) (unknown) SARS-CoV-2 (PCR) (units (unknown) date) (Negative) unknown) (unknown) (no (unknown) (unknown) SKIN: Warm and (units (unknown) date) dry unknown) (unknown) (no (unknown) (unknown) SKIN: Denies rash, (units (unknown) date) skin lesions unknown) (unknown) (no (unknown) (unknown) SV(LVOT): 36.8 ml (units (unknown) date) unknown) (unknown) (no (unknown) (unknown) Service: 02/16/22 (units (unknown) date) unknown) (unknown) (no (unknown) (unknown) She presented (units ( unknown) date) today with EMS and unknown) she was very confused and apparently covered (unknown) (no (unknown) (unknown) She told the nurse (units (unknown) date) that she lives in unknown) an apartment that is connected to the house (unknown) (no (unknown) (unknown) Signed By: (units (unk nown) date) unknown) (unknown) (no (unknown) (unknown) Smoking Status: (units (unknown) date) Never smoker unknown) (unknown) (no (unknown) (unknown) Smoking Status: (units (unknown) date) Never smoker unknown) (unknown) (no (unknown) (unknown) Social History (units (unknown) date) (Reviewed 03/17/22 unknown) @ 21:36 by Jossue Salcido MD) (unknown) (no (unknown) (unknown) Sodium (137-145) (units (unknown) date) mmol/L unknown) (unknown) (no (unknown) (unknown) Sodium 140 (units (u nknown) date) (137-145) mmol/L unknown) (unknown) (no (unknown) (unknown) Source: patient (units (unknown) date) unknown) (unknown) (no (unknown) (unknown) Speech and (units (unk n) date) language unknown) 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 (09/28/12) (unknown) (no (unknown) (unknown) Spoke with (units (unk n) date) Cardiology, unknown) Goldie recommends admission and get a nuclear (unknown) (no (unknown) (unknown) Stated Complaint: (units (unknown) date) Chest Pain, Welfare unknown) check (unknown) (no (unknown) (unknown) Status post (units (un known) date) arthroscopy unknown) (unknown) (no (unknown) (unknown) Status post biopsy (units (unknown) date) () unknown) (unknown) (no (unknown) (unknown) Status post breast (units (unknown) date) lumpectomy () unknown) (unknown) (no (unknown) (unknown) Status post (units (un known) date) cholecystectomy unknown) (unknown) (no (unknown) (unknown) 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 One (units (unknown) date) view of the chest unknown) was acquired.? (unknown) (no (unknown) (unknown) Temperature 97.7 (units (unknown) date) F 03/17/22 21:05 unknown) (unknown) (no (unknown) (unknown) Temperature 97.7 F (units (unknown) date) unknown) (unknown) (no (unknown) (unknown) The aortic valve (units (unknown) date) is mildly unknown) calcified. (unknown) (no (unknown) (unknown) The ejection (units (u nknown) date) fraction is unknown) estimated to be 35-40%. (unknown) (no (unknown) (unknown) The inferior and (units (unknown) date) inferposterior are unknown) relatively more hypokinetic, but overall (unknown) (no (unknown) (unknown) The left atrium is (units (unknown) date) severely dilated. unknown) (unknown) (no (unknown) (unknown) The left ventricle (units (unknown) date) is normal in size unknown) and wall thickness. (unknown) (no (unknown) (unknown) The pulmonary (units ( unknown) date) hypertension is unknown) improved from prior exam. (unknown) (no (unknown) (unknown) The right atrium (units (unknown) date) is severely unknown) dilated. (unknown) (no (unknown) (unknown) The right (units (unkn own) date) ventricular unknown) systolic pressure is estimated to be at least 29 mmHg (unknown) (no (unknown) (unknown) There is mild (units ( unknown) date) mitral unknown) regurgitation. (unknown) (no (unknown) (unknown) There is mild to (units (unknown) date) moderate global unknown) hypokinesis of the left ventricle. (unknown) (no (unknown) (unknown) There is mild (units ( unknown) date) tricuspid unknown) regurgitation. The right ventricular systolic pressure (unknown) (no (unknown) (unknown) There is moderate (units (unknown) date) mitral annular unknown) calcification. (unknown) (no (unknown) (unknown) There is no (units (un known) date) pulmonic valvular unknown) regurgitation. (unknown) (no (unknown) (unknown) Time Seen by (units (u nknown) date) Provider: 03/17/22 unknown) 21:24 (unknown) (no (unknown) (unknown) Time: 02:33 (units (un known) date) unknown) (unknown) (no (unknown) (unknown) Time: 02:43 (units (un known) date) unknown) (unknown) (no (unknown) (unknown) Total Bilirubin (units (unknown) date) (0.2-1.3) mg/dL unknown) (unknown) (no (unknown) (unknown) Total Bilirubin (units (unknown) date) 0.9 (0.2-1.3) unknown) mg/dL (unknown) (no (unknown) (unknown) Total Creatine (units (unknown) date) Kinase < 20 L unknown) (30-135) U/L (unknown) (no (unknown) (unknown) Total Creatine (units (unknown) date) Kinase (30-135) unknown) U/L (unknown) (no (unknown) (unknown) Total Protein (units ( unknown) date) (6.3-8.2) g/dL unknown) (unknown) (no (unknown) (unknown) Total Protein (units ( unknown) date) 7.6 (6.3-8.2) unknown) g/dL (unknown) (no (unknown) (unknown) Tricuspid Valve: ? (units (unknown) date) The tricuspid valve unknown) is normal in structure and function. (unknown) (no (unknown) (unknown) Troponin + CK (units ( unknown) date) Cardiac Panel Stat unknown) (unknown) (no (unknown) (unknown) Troponin I < (units (unknown) date) 0.012 unknown) (0.01-0.034) ng/mL (unknown) (no (unknown) (unknown) Troponin I < (units ( unknown) date) 0.012 (0.01-0.034) unknown) ng/mL (unknown) (no (unknown) (unknown) Troponin I Stat (units (unknown) date) unknown) (unknown) (no (unknown) (unknown) Vital Signs (units (un known) date) unknown) (unknown) (no (unknown) (unknown) Vital signs: (units (u nknown) date) unknown) (unknown) (no (unknown) (unknown) Written by (units (unk nown) date) admitting provider. unknown) (unknown) (no (unknown) (unknown) XR chest 1V Stat (units (unknown) date) unknown) (unknown) (no (unknown) (unknown) [Embedded Image (units (unknown) date) Not Available] unknown) (unknown) (no (unknown) (unknown) (units (unknown) date) unknown) ___ (unknown) (no (unknown) (unknown) acute (units (unkno wn) date) diverticulitis.? unknown) WBC is unremarkable, she has a creatinine bump of 1.06 (unknown) (no (unknown) (unknown) alcohol intake (units (unknown) date) frequency: unknown) holidays/special occasions only (unknown) (no (unknown) (unknown) alcohol intake: (units (unknown) date) never unknown) (unknown) (no (unknown) (unknown) and Doppler was (units (unknown) date) performed. The unknown) study quality was technically adequate. (unknown) (no (unknown) (unknown) and apparently that (units (unknown) date) is been an issue.? unknown) Review of case management note written on (unknown) (no (unknown) (unknown) and left axilla. (units (unknown) date) unknown) (unknown) (no (unknown) (unknown) apixaban 5 mg (units ( unknown) date) tablet 5 mg PO BID unknown) #180 tabs 03/11/21 (unknown) (no (unknown) (unknown) appear (units (unkno wn) date) unknown) (unknown) (no (unknown) (unknown) are now mild (units (u nknown) date) instead of unknown) moderate. (unknown) (no (unknown) (unknown) ascending aorta (units (unknown) date) are normal. The IVC unknown) is of normal diameter and collapses less (unknown) (no (unknown) (unknown) atherosclerotic (units (unknown) date) plaque protecting unknown) meds. (unknown) (no (unknown) (unknown) atorvastatin 40 mg (units (unknown) date) tablet 40 mg PO unknown) BEDTIME #90 tabs 12/11/21 (unknown) (no (unknown) (unknown) atrial (units (unkno wn) date) fibrillation with unknown) heart rates between 54-75 bpm during the exam. (unknown) (no (unknown) (unknown) based on an (units (un known) date) estimated right unknown) atrial pressure of 8 mm Hg. (unknown) (no (unknown) (unknown) because supposedly (units (unknown) date) her son found her unknown) passed out on the ?m[place]ell potty'.? Patient (unknown) (no (unknown) (unknown) butter cookies and (units (unknown) date) then has maybe a unknown) hot meal, usually hamburger.? (unknown) (no (unknown) (unknown) by cab.? She was (units (unknown) date) apparently seen in unknown) the emergency department on February 14 and at (unknown) (no (unknown) (unknown) chest abdomen and (units (unknown) date) pelvis reported a unknown) small right upper lobe 0.4 cm pulmonary (unknown) (no (unknown) (unknown) class 2 (06/05/11) (units (unknown) date) unknown) (unknown) (no (unknown) (unknown) contaminated and a (units (unknown) date) culture was not unknown) able to be grown or specified. (unknown) (no (unknown) (unknown) daily for rate (units (unknown) date) control. unknown) (unknown) (no (unknown) (unknown) diclofenac sodium (units (unknown) date) 1 % topical gel 2 g unknown) topical QID #100 grams 02/03/22 (unknown) (no (unknown) (unknown) dilated. There is (units (unknown) date) no Doppler evidence unknown) for an interatrial shunt. (unknown) (no (unknown) (unknown) discharge note (units (unknown) date) below. Denies any unknown) recent illness. No fall or injury. She (unknown) (no (unknown) (unknown) distention in the (units (unknown) date) rectum likely unknown) impaction and colonic diverticulosis without (unknown) (no (unknown) (unknown) effusion. (units (unkn own) date) unknown) (unknown) (no (unknown) (unknown) effusions or (units (u nknown) date) unknown) (unknown) (no (unknown) (unknown) ejection fraction (units (unknown) date) is estimated to be unknown) 35-40%. There is mild to moderate global (unknown) (no (unknown) (unknown) enlarged. (units (unkn own) date) unknown) (unknown) (no (unknown) (unknown) function could not (units (unknown) date) be accurately unknown) assessed due to atrial fibrillation. 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 No acute consolidation.? No pleural (unknown) (no (unknown) (unknown) hemodynamically (units (unknown) date) significant unknown) valvular aortic stenosis. There is trace aortic (unknown) (no (unknown) (unknown) household members: (units (unknown) date) children unknown) (unknown) (no (unknown) (unknown) hydrocodone 5 (units ( unknown) date) mg-acetaminophen unknown) 325 1 tab PO BID PRN pain #20 tabs 03/02/22 (unknown) (no (unknown) (unknown) hypokinesis of the (units (unknown) date) left ventricle. The unknown) inferior and inferposterior are (unknown) (no (unknown) (unknown) in the process of (units (unknown) date) being evicted from unknown) an apartment however she has tenant rights (unknown) (no (unknown) (unknown) inhalational (units (u nknown) date) spacing device #1 unknown) ea 11/01/19 (unknown) (no (unknown) (unknown) is estimated to be (units (unknown) date) at least 29 mmHg unknown) based on an estimated right atrial (unknown) (no (unknown) (unknown) last month for (units (unknown) date) multiple problems. unknown) Did have echocardiogram done. Please see (unknown) (no (unknown) (unknown) likely adversely (units (unknown) date) affecting all of unknown) the patient's other comorbidities. (unknown) (no (unknown) (unknown) lisinopril AdvReac (units (unknown) date) Mild Cough Verified unknown) 02/16/22 18:19 (unknown) (no (unknown) (unknown) lives with her son (units (unknown) date) and was recently unknown) homeless.? She was apparently confused, (unknown) (no (unknown) (unknown) losartan 50 mg (units (unknown) date) tablet 50 mg PO unknown) DAILY #90 tabs 02/09/22 (unknown) (no (unknown) (unknown) mediastinum (units (un known) date) unknown) (unknown) (no (unknown) (unknown) metoprolol (units (unk nown) date) tartrate 25 mg unknown) tablet 12.5 mg PO DAILY #45 tabs 12/11/21 (unknown) (no (unknown) (unknown) mg tablet (units (unkn own) date) unknown) (unknown) (no (unknown) (unknown) multiple times (units (unknown) date) when the son was unknown) contacted he was hard to be connected to and (unknown) (no (unknown) (unknown) nitroglycerin 0.4 (units (unknown) date) mg sublingual See unknown) Rx Instructions sublingual PRN 10/26/21 (unknown) (no (unknown) (unknown) nodule with (units (un known) date) recommendations for unknown) follow-up in 12 months and moderate stool (unknown) (no (unknown) (unknown) pain, CAD, (units (unk nown) date) anxiety, atrial unknown) fibrillation on anticoagulation, history of (unknown) (no (unknown) (unknown) pantoprazole 40 mg (units (unknown) date) tablet,delayed 40 unknown) mg PO DAILY #90 tabs 02/09/22 (unknown) (no (unknown) (unknown) patient declined (units (unknown) date) SNF placement, and unknown) will receive home health aide on discharge. (unknown) (no (unknown) (unknown) please add the (units (unknown) date) following: severe, unknown) acute protein-calorie malnutrition. This is (unknown) (no (unknown) (unknown) pneumothorax.? (units (unknown) date) unknown) (unknown) (no (unknown) (unknown) pressure of 8 mm (units (unknown) date) Hg. unknown) (unknown) (no (unknown) (unknown) regurgitation. (units (unknown) date) unknown) (unknown) (no (unknown) (unknown) relatively more (units (unknown) date) hypokinetic, but unknown) overall unchanged from prior exam. Diastolic (unknown) (no (unknown) (unknown) release (units (unkno wn) date) unknown) (unknown) (no (unknown) (unknown) relief. (units (unkno wn) date) unknown) (unknown) (no (unknown) (unknown) right MCA infarct (units (unknown) date) unknown) (unknown) (no (unknown) (unknown) right parietal and (units (unknown) date) temporal lobes unknown) consistent with a prior infarct in the right (unknown) (no (unknown) (unknown) sertraline (units (unk nown) date) [SERTRALINE] unknown) Allergy Mild FEELS Verified 02/16/22 18:19 (unknown) (no (unknown) (unknown) states she is in a (units (unknown) date) better living unknown) condition since being discharged last month. (unknown) (no (unknown) (unknown) states she only (units (unknown) date) eats 2 times a day unknown) consisting mostly of putting and peanut (unknown) (no (unknown) (unknown) stress test (units (un known) date) unknown) (unknown) (no (unknown) (unknown) systolic function (units (unknown) date) is mild to unknown) moderately reduced. (unknown) (no (unknown) (unknown) tablet (Nitrostat) (units (unknown) date) PRN Chest Pain #30 unknown) tabs (unknown) (no (unknown) (unknown) than 50% with a (units (unknown) date) sniff. This unknown) suggests a right atrial pressure of 8 mm Hg. 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 History of (units (unknown) date) coronary disease unknown) with bypass surgery. Recently admitted here (unknown) (no (unknown) (unknown) to have the (units (un known) date) patient undergo MRI unknown) imaging to further delineate this.? CT of the (unknown) (no (unknown) (unknown) trace leukocyte (units (unknown) date) esterase and will unknown) be cultured.? COVID-19 PCR is negative. (unknown) (no (unknown) (unknown) unchanged from (units (unknown) date) prior exam. unknown) (unknown) (no (unknown) (unknown) unkempt and (units (un known) date) appeared to be not unknown) cared for [facility].? It appears that (unknown) (no (unknown) (unknown) unremarkable.? (units (unknown) date) unknown) (unknown) (no (unknown) (unknown) valve leaflets are (units (unknown) date) mildly calcified. unknown) There is mild mitral regurgitation. (unknown) (no (unknown) (unknown) when they were (units (unknown) date) able to reach him unknown) he would request that the patient be sent home (unknown) (no (unknown) (unknown) with an EGFR of (units (unknown) date) 52, alk-phos unknown) elevated at 146 UA is positive for ketones and (unknown) (no (unknown) (unknown) with home (units (unkn own) date) nitroglycerin. To unknown) calm 81 mg aspirin. Denies any chest pain at this (unknown) (no (unknown) (unknown) with patient. (units ( unknown) date) Agrees for admit. unknown) (unknown) (no (unknown) (unknown) with stool and (units (unknown) date) urine. unknown) Result panel 11 (unknown) (no (unknown) (unknown) 2. This likely is (units (unknown) date) contributing unknown) greatly to problem 1. Continue home (unknown) (no (unknown) (unknown) Qty: 1 0RF (units (unk nown) date) unknown) (unknown) (no (unknown) (unknown) (no value) (units (unk nown) date) unknown) (unknown) (no (unknown) (unknown) Radiologist's (units ( unknown) date) Impression: unknown) (unknown) (no (unknown) (unknown) Date of Service: (units (unknown) date) 03/17/22 unknown) (unknown) (no (unknown) (unknown) (no value) (units (unk nown) date) unknown) (unknown) (no (unknown) (unknown) 'DRUGGED' (units (unkn own) date) unknown) (unknown) (no (unknown) (unknown) 02/16/22 23:18 (units (unknown) date) unknown) (unknown) (no (unknown) (unknown) 02/17/22 01:58 (units (unknown) date) unknown) (unknown) (no (unknown) (unknown) 02/17/22 02:01 (units (unknown) date) unknown) (unknown) (no (unknown) (unknown) 02/17/22 05:08 (units (unknown) date) unknown) (unknown) (no (unknown) (unknown) 03/17/22 20:07 (units (unknown) date) unknown) (unknown) (no (unknown) (unknown) 1 tab PO BID PRN (units (unknown) date) (Reason: pain) Qty: unknown) 20 0RF (unknown) (no (unknown) (unknown) 1 tab under tongue (units (unknown) date) every five minutes unknown) up to three times, call 911 if no (unknown) (no (unknown) (unknown) 1. Physical (units (un known) date) debility/deconditio unknown) gelacio (unknown) (no (unknown) (unknown) 12.5 mg PO DAILY (units (unknown) date) Qty: 45 0RF unknown) (unknown) (no (unknown) (unknown) [address] [place] [address] (units (unknown) date) unknown) (unknown) (no (unknown) (unknown) 2 g topical QID (units (unknown) date) Qty: 100 0RF unknown) (unknown) (no (unknown) (unknown) 3. Atrial (units (unkn own) date) fibrillation unknown) (unknown) (no (unknown) (unknown) 300 mg PO TID Qty: (units (unknown) date) 270 0RF unknown) (unknown) (no (unknown) (unknown) 4. 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 Will continue (units (unknown) date) torsemide 20 mg unknown) daily on discharge. (unknown) (no (unknown) (unknown) 40 mg PO BEDTIME (units (unknown) date) Qty: 90 0RF unknown) (unknown) (no (unknown) (unknown) 40 mg PO DAILY (units (unknown) date) Qty: 90 0RF unknown) (unknown) (no (unknown) (unknown) 5 mg PO BID Qty: (units (unknown) date) 180 1RF unknown) (unknown) (no (unknown) (unknown) 5. Hypertension (units (unknown) date) unknown) (unknown) (no (unknown) (unknown) 5. Will resume (units (unknown) date) home losartan 50 mg unknown) daily. (unknown) (no (unknown) (unknown) 50 mg PO DAILY (units (unknown) date) Qty: 90 1RF unknown) (unknown) (no (unknown) (unknown) 6. Conservative (units (unknown) date) management and unknown) encouraged ambulation. (unknown) (no (unknown) (unknown) 6. Constipation (units (unknown) date) with impaction, unknown) improved (unknown) (no (unknown) (unknown) Allergies (units (unkn own) date) unknown) (unknown) (no (unknown) (unknown) [place], [place] (units ( unknown) date) [id number] unknown) (unknown) (no (unknown) (unknown) As directed (units (un known) date) unknown) (unknown) (no (unknown) (unknown) Assessment: (units (un known) date) unknown) (unknown) (no (unknown) (unknown) Comment: (units (unkno wn) date) unknown) (unknown) (no (unknown) (unknown) Comment: APS case (units (unknown) date) for neglect unknown) (unknown) (no (unknown) (unknown) Comment: Failure (units (unknown) date) to thrive, needs unknown) placement? (unknown) (no (unknown) (unknown) Comment: Prior (units (unknown) date) CVA, mild unknown) dysarthria, syncopal episode (unknown) (no (unknown) (unknown) Comment: Prior (units (unknown) date) CVA, syncopal unknown) episode (unknown) (no (unknown) (unknown) Comment: Prior (units (unknown) date) CVA, syncopal unknown) episode, cognitive eval (unknown) (no (unknown) (unknown) Consult to (units (unk nown) date) Dietitian, Adult unknown) Routine (unknown) (no (unknown) (unknown) Consult to (units (unk nown) date) Discharge Planning unknown) Routine (unknown) (no (unknown) (unknown) Consult to [employer] - (units (unknown) 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) Routine (unknown) (no (unknown) (unknown) Consult to (units (unk nown) date) Occupational unknown) Therapy Evaluate + Treat (unknown) (no (unknown) (unknown) Consult to (units (unk nown) date) Physical Therapy unknown) Evaluate + Treat (unknown) (no (unknown) (unknown) Consult to Social (units (unknown) date) Services Routine unknown) (unknown) (no (unknown) (unknown) Consult to Speech (units (unknown) date) Therapy Evaluate + unknown) Treat (unknown) (no (unknown) (unknown) Discharge (units (unkn own) date) Diagnosis: unknown) (unknown) (no (unknown) (unknown) Discharge Summary (units (unknown) date) unknown) (unknown) (no (unknown) (unknown) Discharge (units (unkn own) date) provider: unknown) (unknown) (no (unknown) (unknown) Documented By: EB (units (unknown) date) unknown) (unknown) (no (unknown) (unknown) Documented By: NR (units (unknown) date) unknown) (unknown) (no (unknown) (unknown) Dose Instruction: (units (unknown) date) unknown) (unknown) (no (unknown) (unknown) ED Orders (units (unkn own) date) unknown) (unknown) (no (unknown) (unknown) Echocardiography (units (unknown) date) Report unknown) (unknown) (no (unknown) (unknown) Emergency Report (units (unknown) date) unknown) (unknown) (no (unknown) (unknown) Soo Singh MD (units (unknown) date) unknown) (unknown) (no (unknown) (unknown) Hold Instructions: (units (unknown) date) stopped at unknown) [facility] ([facility]) (no (unknown) (unknown) Hospital Course (units (unknown) date) unknown) (unknown) (no (unknown) (unknown) [facility] (units (unknown) date) unknown) (unknown) (no (unknown) (unknown) [facility] (units (unknown) date) [address] unknown) [place] [address] (unknown) (no (unknown) (unknown) Lab Results (units (un known) date) unknown) (unknown) (no (unknown) (unknown) Last Admin: (units (un known) date) 03/17/22 22:13 unknown) Dose: 243 mg (unknown) (no (unknown) (unknown) Last Admin: (units (un known) date) 03/18/22 00:06 unknown) Dose: 25 mg (unknown) (no (unknown) (unknown) Last Admin: (units (un known) date) 03/18/22 00:06 unknown) Dose: 5 mg (unknown) (no (unknown) (unknown) Patient unable to (units (unknown) date) walk 200 feet unknown) without stopping to rest. (unknown) (no (unknown) (unknown) Physician (units (unkn own) date) Instructions: unknown) Evaluate and Treat (unknown) (no (unknown) (unknown) Physician (units (unkn own) date) Instructions: unknown) Evaluate and treat (unknown) (no (unknown) (unknown) Plan: (units (unkno wn) date) unknown) (unknown) (no (unknown) (unknown) Previous Rx's (units ( unknown) date) unknown) (unknown) (no (unknown) (unknown) Reason For Exam: (units (unknown) date) malnutrition + no unknown) teeth (unknown) (no (unknown) (unknown) Rx Instructions: (units (unknown) date) unknown) (unknown) (no (unknown) (unknown) See Rx (units (unkno wn) date) Instructions unknown) .ROUTE .MEDSUPPLY Qty: 1 0RF (unknown) (no (unknown) (unknown) See Rx (units (unkno wn) date) Instructions unknown) Sublingual PRN PRN (Reason: Chest Pain) Qty: 30 0RF (unknown) (no (unknown) (unknown) Signed (units (unkno wn) date) unknown) (unknown) (no (unknown) (unknown) Stop: 03/17/22 (units (unknown) date) 21:32 unknown) (unknown) (no (unknown) (unknown) Stop: 03/17/22 (units (unknown) date) 23:33 unknown) (unknown) (no (unknown) (unknown) Summary (units (unkno wn) date) unknown) (unknown) (no (unknown) (unknown) Vital Signs - 8 hr (units (unknown) date) unknown) (unknown) (no (unknown) (unknown) XRay Report (units (un known) date) unknown) (unknown) (no (unknown) (unknown) apply to single (units (unknown) date) elbow, wrist or unknown) hand; for hand includes palm/fingers/back of (unknown) (no (unknown) (unknown) (no value) (units (unk nown) date) unknown) (unknown) (no (unknown) (unknown) (DME) Aerochamber (units (unknown) date) MV Spacer unknown) (unknown) (no (unknown) (unknown) (DME) Handicap (units (unknown) date) Parking unknown) (unknown) (no (unknown) (unknown) ADDENDUMAs an (units (unknown) date) addendum to the unknown) assessment and plan portion of this note, (unknown) (no (unknown) (unknown) 01:30 (units (unkno wn) date) unknown) (unknown) (no (unknown) (unknown) 03/17/22 03/17/22 (units (unknown) date) 03/17/22 unknown) Range/Units (unknown) (no (unknown) (unknown) 03/18/22 (units (unkno wn) date) Range/Units unknown) (unknown) (no (unknown) (unknown) 20:07 20:07 22:12 (units (unknown) date) unknown) (unknown) (no (unknown) (unknown) apixaban 5 mg (units ( unknown) date) tablet unknown) (unknown) (no (unknown) (unknown) atorvastatin 40 mg (units (unknown) date) tablet unknown) (unknown) (no (unknown) (unknown) diclofenac sodium (units (unknown) date) 1 % gel unknown) (unknown) (no (unknown) (unknown) gabapentin (units (unk nown) date) [Neurontin] 300 mg unknown) capsule (unknown) (no (unknown) (unknown) hydrocodone-acetam (units (unknown) date) inophen 5-325 mg unknown) tablet (unknown) (no (unknown) (unknown) losartan 50 mg (units (unknown) date) tablet unknown) (unknown) (no (unknown) (unknown) metoprolol (units (unk nown) date) tartrate 25 mg unknown) tablet (unknown) (no (unknown) (unknown) nitroglycerin (units ( unknown) date) [Nitrostat] 0.4 mg unknown) tablet, sublingual (unknown) (no (unknown) (unknown) pantoprazole 40 mg (units (unknown) date) tablet,delayed unknown) release (DR/EC) (unknown) (no (unknown) (unknown) 03/17/22 (units (unkno wn) date) unknown) (unknown) (no (unknown) (unknown) 3. Will continue (units (unknown) date) Eliquis 5 mg bid unknown) for anticoagulation, with Lopressor 12.5 mg (unknown) (no (unknown) (unknown) Medication (units (unk nown) date) Instructions unknown) Recorded (unknown) (no (unknown) (unknown) Patient is awake (units (unknown) date) alert oriented x3. unknown) (unknown) (no (unknown) (unknown) and below (units (unkn own) date) unknown) (unknown) (no (unknown) (unknown) chest pain, st (units (unknown) date) elevation unknown) myocardial infarction and chest pain (unknown) (no (unknown) (unknown) rales, or rhonchi. (units (unknown) date) unknown) (unknown) (no (unknown) (unknown) <Electronically (units (unknown) date) signed by Soo unknown) MD Francisco> (unknown) (no (unknown) (unknown) (12/05/17) (units (unk nown) date) unknown) (unknown) (no (unknown) (unknown) (Aerochamber MV (units (unknown) date) spacer) unknown) (unknown) (no (unknown) (unknown) (Neurontin) (units (un known) date) unknown) (unknown) (no (unknown) (unknown) +---------+? (units (unknown) date) ? unknown) [phone]? +---------+ (unknown) (no (unknown) (unknown) +---------+? (units (unknown) date) ? unknown) Hospital? +---------+ (unknown) (no (unknown) (unknown) + (units (unknown) date) unknown) ---+ (unknown) (no (unknown) (unknown) 00:06 03/18/22 (units (unknown) date) unknown) (unknown) (no (unknown) (unknown) 01:00 (units (unkno wn) date) unknown) (unknown) (no (unknown) (unknown) 02/16/22 21:54 (units (unknown) date) unknown) (unknown) (no (unknown) (unknown) 02/20/22 1321 (units ( unknown) date) unknown) (unknown) (no (unknown) (unknown) 03/17/22 20:07 (units (unknown) date) unknown) (unknown) (no (unknown) (unknown) 03/17/22 21:08 (units (unknown) date) unknown) (unknown) (no (unknown) (unknown) 03/17/22 21:09 (units (unknown) date) unknown) (unknown) (no (unknown) (unknown) 03/18/22 00:22 (units (unknown) date) unknown) (unknown) (no (unknown) (unknown) 03/18/22 01:30 (units (unknown) date) unknown) (unknown) (no (unknown) (unknown) 1. 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 (unknown) (no (unknown) (unknown) 1. Physical (units (un known) date) debility/deconditio unknown) gelacio (unknown) (no (unknown) (unknown) 1. This is likely (units (unknown) date) a function of unknown) advancing age and sedentary status at home. The (unknown) (no (unknown) (unknown) 1. This is likely (units (unknown) date) a function of unknown) advancing age and sedentary status at home. 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 This likely is (units (unknown) date) contributing unknown) greatly to problem 1. Continue home (unknown) (no (unknown) (unknown) 215-1 (units (unkno wn) date) unknown) (unknown) (no (unknown) (unknown) 21:05 03/18/22 (units (unknown) date) unknown) (unknown) (no (unknown) (unknown) 3. Atrial (units (unkn own) date) fibrillation unknown) (unknown) (no (unknown) (unknown) 3. Will continue (units (unknown) date) Eliquis 5 mg bid unknown) for anticoagulation, with Lopressor 12.5 mg (unknown) (no (unknown) (unknown) 4. 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 Will continue (units (unknown) date) torsemide 20 mg unknown) daily on discharge. (unknown) (no (unknown) (unknown) 5. Hypertension (units (unknown) date) unknown) (unknown) (no (unknown) (unknown) 5. Will resume (units (unknown) date) home losartan 50 mg unknown) daily. (unknown) (no (unknown) (unknown) 6. Conservative (units (unknown) date) management and unknown) encouraged ambulation. (unknown) (no (unknown) (unknown) 6. Constipation (units (unknown) date) with impaction, unknown) improved (unknown) (no (unknown) (unknown) : ? : ? ? ? (units (unknown) date) ? unknown) Phone: 360-? : ? : (unknown) (no (unknown) (unknown) : ? :? (units (unknown) date) ? [address] unknown) [address] ? : ? : (unknown) (no (unknown) (unknown) : ? :? (units (unknown) date) ? unknown) [id number] ? : ? : (unknown) (no (unknown) (unknown) : ? :? (units (unknown) date) ? unknown) [place], [place] ? : ? : (unknown) (no (unknown) (unknown) :Account #: (units (un known) date) [id number]? unknown) Gender: Female ? BSA: 1.7 m2? ? : (unknown) (no (unknown) (unknown) :: 1935? (units (unknown) date) ? Age: unknown) 86 yrs? BP: 184/97 mmHg: (unknown) (no (unknown) (unknown) :Hospital MRN #: (units (unknown) date) [id number] ? ? unknown) ReadingLocation: ? Weight: 128 lb : (unknown) (no (unknown) (unknown) :Name: YAMILKA, (units (unknown) date) JACKIE Barba? ? ? unknown) Study Date: 02/17/2022 ? Height: 67 in? : (unknown) (no (unknown) (unknown) :Ordering (units (unkn own) date) Physician: ASHA, unknown) DEBRAPerformed By: Lyly Casanova? : (unknown) (no (unknown) (unknown) :Reason For Study: (units (unknown) date) CVA? unknown) ? : (unknown) (no (unknown) (unknown) :Referring: BARRY, (units (unknown) date) ELIANA ? unknown) ? : (unknown) (no (unknown) (unknown) ? (units (unkno wn) date) unknown) (unknown) (no (unknown) (unknown) ? (units (unknown) date) ? unknown) ? Date of (unknown) (no (unknown) (unknown) ? (units (unknown) date) ? unknown) [place] (unknown) (no (unknown) (unknown) ? (units (unknown) date) Electronically unknown) signed by: Charlie Clemente on 02/17/2022 09:11 (unknown) (no (unknown) (unknown) ? (units (unkno wn) date) unknown) (unknown) (no (unknown) (unknown) ? (units (unknown) date) ? unknown) sev ratio: 0.49 (unknown) (no (unknown) (unknown) ? (units (unknown) date) ? unknown) Echocardiogram Report (unknown) (no (unknown) (unknown) ALT (<35) IU/L (units (unknown) date) unknown) (unknown) (no (unknown) (unknown) ALT 10 (<35) (units (unknown) date) IU/L unknown) (unknown) (no (unknown) (unknown) AST (14-36) (units ( unknown) date) IU/L unknown) (unknown) (no (unknown) (unknown) AST 26 (14-36) (units (unknown) date) IU/L unknown) (unknown) (no (unknown) (unknown) Abdominal pain (units (unknown) date) unknown) (unknown) (no (unknown) (unknown) Accession Number: (units (unknown) date) [id number] ?? unknown) (unknown) (no (unknown) (unknown) Accession Number: (units (unknown) date) [id number] ?? unknown) (unknown) (no (unknown) (unknown) Acct:[id number] (units (unknown) date) unknown) (unknown) (no (unknown) (unknown) Acct:[id number] (units (unknown) date) unknown) (unknown) (no (unknown) (unknown) Acute pancreatitis (units (unknown) date) unknown) (unknown) (no (unknown) (unknown) Addendum (units (unkno wn) date) Documented By: unknown) (unknown) (no (unknown) (unknown) Addendum Signed (units (unknown) date) By: unknown) (unknown) (no (unknown) (unknown) Age/Sex: 86 / F (units (unknown) date) unknown) (unknown) (no (unknown) (unknown) Age/Sex: 86 / F (units (unknown) date) unknown) (unknown) (no (unknown) (unknown) Albumin (units (unkno wn) date) (3.5-5.0) g/dL unknown) (unknown) (no (unknown) (unknown) Albumin 4.1 (units ( unknown) date) (3.5-5.0) g/dL unknown) (unknown) (no (unknown) (unknown) Albumin/Globulin (units (unknown) date) Ratio (1.0-2.8) unknown) (unknown) (no (unknown) (unknown) Albumin/Globulin (units (unknown) date) Ratio 1.2 unknown) (1.0-2.8) (unknown) (no (unknown) (unknown) Alkaline (units (unkno wn) date) Phosphatase unknown) (38-126) U/L (unknown) (no (unknown) (unknown) Alkaline (units (unkno wn) date) Phosphatase 116 unknown) (38-126) U/L (unknown) (no (unknown) (unknown) Allergy/AdvReac (units (unknown) date) Type Severity unknown) Reaction Status Date / Time (unknown) (no (unknown) (unknown) Anesthesia (units (unk nown) date) unknown) (unknown) (no (unknown) (unknown) Anxiety (units (unkno wn) date) unknown) (unknown) (no (unknown) (unknown) Ao V2 VTI: 24.6 cm (units (unknown) date) ? unknown) SALO(V,D): 1.4 cm2 (unknown) (no (unknown) (unknown) Ao V2 max: 137.4 (units (unknown) date) cm/sec? unknown) LVOT Max Benjamin: 61.4 cm/sec (unknown) (no (unknown) (unknown) Ao V2 mean: 98.4 (units (unknown) date) cm/sec? LV unknown) V1 max P.5 mmHg (unknown) (no (unknown) (unknown) Ao max P.6 (units (unknown) date) mmHg? unknown) LV V1 VTI: 11.9 cm (unknown) (no (unknown) (unknown) Ao mean P.3 (units (unknown) date) mmHg ? unknown) SALO(I,D): 1.5 cm2 (unknown) (no (unknown) (unknown) Aortic Valve: ? (units (unknown) date) The aortic valve is unknown) mildly calcified. There is no (unknown) (no (unknown) (unknown) Apixaban (Apixaban (units (unknown) date) 5 Mg Tablet) 5 mg unknown) PO NOW ONE (unknown) (no (unknown) (unknown) Approved by: (units (u nknown) date) Hemant Marvin, unknownShruti Winkler on 03/17/2022 at 23:01 ? 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 The left (units (unknown) date) atrium is severely unknown) dilated. The right atrium is severely (unknown) (no (unknown) (unknown) Atrial (units (unkno wn) date) fibrillation rate unknown) [address] elevation or depression (unknown) (no (unknown) (unknown) BACK: No flank (units (unknown) date) tenderness. unknown) (unknown) (no (unknown) (unknown) BUN (7-17) (units (u nknown) date) mg/dL unknown) (unknown) (no (unknown) (unknown) BUN 18 H (units (unk nown) date) (7-17) mg/dL unknown) (unknown) (no (unknown) (unknown) BUN/Creatinine (units (unknown) date) Ratio (6-22) unknown) (unknown) (no (unknown) (unknown) BUN/Creatinine (units (unknown) date) Ratio 20.7 unknown) (6-22) (unknown) (no (unknown) (unknown) Baso # (Auto) (units ( unknown) date) (0-100) /uL unknown) (unknown) (no (unknown) (unknown) Baso # (Auto) 0 (units (unknown) date) (0-100) /uL unknown) (unknown) (no (unknown) (unknown) Baso % (Auto) (units ( unknown) date) (0-2) % unknown) (unknown) (no (unknown) (unknown) Baso % (Auto) 0.7 (units (unknown) date) (0-2) % unknown) (unknown) (no (unknown) (unknown) Blood Pressure (units (unknown) date) 201/119 H // unknown) 21:05 (unknown) (no (unknown) (unknown) Blood Pressure (units (unknown) date) 201/119 H 191/91 H unknown) 202/98 H (unknown) (no (unknown) (unknown) Bones and chest (units (unknown) date) wall:? No unknown) suspicious bony lesions.? 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) unknown) (unknown) (no (unknown) (unknown) CARDIOVASCULAR: (units (unknown) date) Positive for chest unknown) pain, negative for palpitations (unknown) (no (unknown) (unknown) CARDIOVASCULAR: (units (unknown) date) Regular rate and unknown) rhythm without murmurs (unknown) (no (unknown) (unknown) CK-MB (CK-2) (units (u nknown) date) unknown) (unknown) (no (unknown) (unknown) CK-MB (CK-2) TNP (units (unknown) date) unknown) (unknown) (no (unknown) (unknown) CK-MB (CK-2) Rel (units (unknown) date) Index unknown) (unknown) (no (unknown) (unknown) CK-MB (CK-2) Rel (units (unknown) date) Index TNP unknown) (unknown) (no (unknown) (unknown) COMPARISON:? (units (u nknown) date) [facility], unknown) CR, XR CHEST 1V, 02/13/2022, 20:46. (unknown) (no (unknown) (unknown) COVID19 -Nasal (units (unknown) date) RAPID/Pre-Proc Stat unknown) (unknown) (no (unknown) (unknown) CT of the head did (units (unknown) date) report prior unknown) cortical and subcortical encephalomalacia on the (unknown) (no (unknown) (unknown) Calcified nodule (units (unknown) date) unknown) (unknown) (no (unknown) (unknown) Calcium (units (unkno wn) date) (8.4-10.2) mg/dL unknown) (unknown) (no (unknown) (unknown) Calcium 9.1 (units ( unknown) date) (8.4-10.2) mg/dL unknown) (unknown) (no (unknown) (unknown) Carbon Dioxide (units (unknown) date) (22-32) mmol/L unknown) (unknown) (no (unknown) (unknown) Carbon Dioxide (units (unknown) date) 27 (22-32) unknown) mmol/L (unknown) (no (unknown) (unknown) Jackie Prather (units (unknown) date) is an 86-year-old unknown) female with a history of chronic abdominal (unknown) (no (unknown) (unknown) 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 (unknown) (no (unknown) (unknown) Cervical cancer, (units (unknown) date) FIGO stage I unknown) (unknown) (no (unknown) (unknown) Chest x-ray: (units (u nknown) date) unknown) (unknown) (no (unknown) (unknown) Chief Complaint: (units (unknown) date) Chest Pain unknown) (unknown) (no (unknown) (unknown) Chief complaint: (units (unknown) date) Decreased LOC unknown) (unknown) (no (unknown) (unknown) Chloride (units (unkno wn) date) (98-107) mmol/L unknown) (unknown) (no (unknown) (unknown) Chloride 103 (units (unknown) date) (98-107) mmol/L unknown) (unknown) (no (unknown) (unknown) Cholelithiasis (units (unknown) date) unknown) (unknown) (no (unknown) (unknown) Chronic back pain (units (unknown) date) unknown) (unknown) (no (unknown) (unknown) Comparison is made (units (unknown) date) with the unknown) echocardiogram of 08/17/2019. 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) Stat (unknown) (no (unknown) (unknown) Consultation #1: (units (unknown) date) unknown) (unknown) (no (unknown) (unknown) Consultations (units ( unknown) date) unknown) (unknown) (no (unknown) (unknown) Consults: (units (unkn own) date) unknown) (unknown) (no (unknown) (unknown) Course (units (unkno wn) date) unknown) (unknown) (no (unknown) (unknown) Course Narrative: (units (unknown) date) unknown) (unknown) (no (unknown) (unknown) Creatinine (units (unk nown) date) (0.52-1.04) mg/dL unknown) (unknown) (no (unknown) (unknown) Creatinine 0.87 (units (unknown) date) (0.52-1.04) mg/dL unknown) (unknown) (no (unknown) (unknown) : 1935 (units (unknown) date) Acct:[id number] unknown) (unknown) (no (unknown) (unknown) : 1935 (units (unknown) date) unknown) (unknown) (no (unknown) (unknown) Date of Service: (units (unknown) date) 02/17/22 unknown) (unknown) (no (unknown) (unknown) Date of Service: (units (unknown) date) 03/17/22 unknown) (unknown) (no (unknown) (unknown) Date of admission: (units (unknown) date) unknown) (unknown) (no (unknown) (unknown) Decision to Admit (units (unknown) date) Date: 03/18/22 unknown) (unknown) (no (unknown) (unknown) Decision to Admit (units (unknown) date) time: 02:42 unknown) (unknown) (no (unknown) (unknown) Departure (units (unkn own) date) unknown) (unknown) (no (unknown) (unknown) Developmental (units ( unknown) date) disorder unknown) (unknown) (no (unknown) (unknown) Diarrhea (units (unkno wn) date) unknown) (unknown) (no (unknown) (unknown) Dictated by: (units (u nknown) date) cally Barton M.D. on 03/17/2022 at 23:00 ? ? (unknown) (no (unknown) (unknown) Differential (units (u nknown) date) Diagnosis unknown) (unknown) (no (unknown) (unknown) Differential (units (un known) date) diagnosis: Likely unknown) stable angina, unstable angina pectoris, atypical (unknown) (no (unknown) (unknown) Discharge (units (unkn own) date) Assessment + Plan unknown) (unknown) (no (unknown) (unknown) Discharge Date: (units (unknown) date) 02/19/22 unknown) (unknown) (no (unknown) (unknown) Discharge Plan (units (unknown) date) unknown) (unknown) (no (unknown) (unknown) Discharge (units (unkn own) date) Providers unknown) (unknown) (no (unknown) (unknown) Discontinued (units (u nknown) date) Medications unknown) (unknown) (no (unknown) (unknown) Doppler (units (unkno wn) date) Measurements + unknown) Calculations (unknown) (no (unknown) (unknown) E/E' lat: 10.4 (units (unknown) date) unknown) (unknown) (no (unknown) (unknown) E/E' med: 16.6 ? ? (units (unknown) date) ? PA unknown) mean P.8 mmHg (unknown) (no (unknown) (unknown) E/e' average: 13.5 (units (unknown) date) unknown) (unknown) (no (unknown) (unknown) ECG Data (units (unkno wn) date) unknown) (unknown) (no (unknown) (unknown) EKG-12 Lead Stat (units (unknown) date) unknown) (unknown) (no (unknown) (unknown) ENT: Mucous (units (u nknown) date) membranes moist. unknown) (unknown) (no (unknown) (unknown) ER Physician: (units ( unknown) date) Jossue Salcido MD unknown) (unknown) (no (unknown) (unknown) EXTREMITIES: No (units (unknown) date) gross deformities. unknown) (unknown) (no (unknown) (unknown) EYES: Pupils equal (units (unknown) date) round No scleral unknown) icterus. (unknown) (no (unknown) (unknown) Eos # (Auto) (units (u nknown) date) (0-450) /uL unknown) (unknown) (no (unknown) (unknown) Eos # (Auto) 0 (units (unknown) date) (0-450) /uL unknown) (unknown) (no (unknown) (unknown) Eos % (Auto) (units (u nknown) date) (2-4) % unknown) (unknown) (no (unknown) (unknown) Eos % (Auto) 0.8 (units (unknown) date) L (2-4) % unknown) (unknown) (no (unknown) (unknown) Essential (units (unkn own) date) hypertension unknown) (09/28/12) (unknown) (no (unknown) (unknown) Estimated GFR > (units (unknown) date) 60 (>60) mL/min unknown) (unknown) (no (unknown) (unknown) Estimated GFR (units ( unknown) date) (>60) mL/min unknown) (unknown) (no (unknown) (unknown) Exam (units (unkno wn) date) unknown) (unknown) (no (unknown) (unknown) Exam Narrative: (units (unknown) date) unknown) (unknown) (no (unknown) (unknown) FINDINGS:? (units (unk nown) date) unknown) (unknown) (no (unknown) (unknown) FS: 18.5 %? (units (unknown) date) ? unknown) ? asc Aorta Diam: 3.2 cm (unknown) (no (unknown) (unknown) Failure to thrive (units (unknown) date) in adult unknown) (unknown) (no (unknown) (unknown) Fibrocystic breast (units (unknown) date) disease unknown) (unknown) (no (unknown) (unknown) GASTROINTESTINAL: (units (unknown) date) Abdomen soft, unknown) non-tender (unknown) (no (unknown) (unknown) GASTROINTESTINAL: (units (unknown) date) Denies nausea, unknown) vomiting, abdominal pain (unknown) (no (unknown) (unknown) GENERAL: Denies (units (unknown) date) chills, fatigue, unknown) malaise, fever, sweats. (unknown) (no (unknown) (unknown) GENERAL: in no (units (unknown) date) distress, not toxic unknown) not dyspneic (unknown) (no (unknown) (unknown) GERD (units (unkno wn) date) (gastroesophageal unknown) reflux disease) (unknown) (no (unknown) (unknown) : Denies (units (unk nown) date) dysuria, frequency, unknown) hematuria (unknown) (no (unknown) (unknown) Alyssa Robison MD (units (unknown) date) unknown) (unknown) (no (unknown) (unknown) General (units (unkno wn) date) unknown) (unknown) (no (unknown) (unknown) GenericComposite[?? (units (unknown) date) ? unknown) ? SALO indexed to BSA (cm^2/m^2): 0.90 ] (unknown) (no (unknown) (unknown) GenericComposite[L (units (unknown) date) V cage. unknown) diameter/BSA (cm/m^2): 2.9 ] (unknown) (no (unknown) (unknown) GenericComposite[L (units (unknown) date) V sys. diameter/BSA unknown) (cm/m^2): 2.4 ] (unknown) (no (unknown) (unknown) GenericComposite[P (units (unknown) date) lt Count unknown) (150-400) X10^3/uL ] (unknown) (no (unknown) (unknown) GenericComposite[P (units (unknown) date) lt Count 250 unknown) (150-400) X10^3/uL ] (unknown) (no (unknown) (unknown) GenericComposite[R (units (unknown) date) BC (4.0-5.2) unknown) X10^6/uL ] (unknown) (no (unknown) (unknown) GenericComposite[R (units (unknown) date) BC 4.32 unknown) (4.0-5.2) X10^6/uL ] (unknown) (no (unknown) (unknown) GenericComposite[W (units (unknown) date) BC (4.5-11.0) unknown) X10^3/uL ] (unknown) (no (unknown) (unknown) GenericComposite[W (units (unknown) date) BC 6.2 unknown) (4.5-11.0) X10^3/uL ] (unknown) (no (unknown) (unknown) Globulin (units (unkno wn) date) (1.7-4.1) g/dL unknown) (unknown) (no (unknown) (unknown) Globulin 3.5 (units (unknown) date) (1.7-4.1) g/dL unknown) (unknown) (no (unknown) (unknown) Glucose (80-110) (units (unknown) date) mg/dL unknown) (unknown) (no (unknown) (unknown) Glucose 99 (units (u nknown) date) (80-110) mg/dL unknown) (unknown) (no (unknown) (unknown) Great Vessels: ? (units (unknown) date) The aortic root is unknown) normal size. The dimensions of the (unknown) (no (unknown) (unknown) HEAD: (units (unkno wn) date) Normocephalic. unknown) (unknown) (no (unknown) (unknown) HEART Score (units (un known) date) unknown) (unknown) (no (unknown) (unknown) HEENT: Denies (units ( unknown) date) sinus pain, ear unknown) pain, sore throat (unknown) (no (unknown) (unknown) HPI - Chest Pain (units (unknown) date) unknown) (unknown) (no (unknown) (unknown) HPI narrative: (units (unknown) date) unknown) (unknown) (no (unknown) (unknown) Handicap Parking (units (unknown) date) #1 ea 01/12/19 unknown) (unknown) (no (unknown) (unknown) Soo Singh MD (units (unknown) date) unknown) (unknown) (no (unknown) (unknown) Hct (36-46) % (units (unknown) date) unknown) (unknown) (no (unknown) (unknown) Hct 39.2 (units (unkn own) date) (36-46) % unknown) (unknown) (no (unknown) (unknown) Heart Score Age: > (units (unknown) date) or = 65 years old unknown) (unknown) (no (unknown) (unknown) Heart Score EKG: (units (unknown) date) Non-Specific unknown) repolarization disturbance (unknown) (no (unknown) (unknown) Heart Score Total: (units (unknown) date) 7 unknown) (unknown) (no (unknown) (unknown) Heart Score (units (un known) date) history: Highly unknown) Suspicious (unknown) (no (unknown) (unknown) Heart Score risk (units (unknown) date) factors: > 3 risk unknown) factors or hx of atherosclerotic disease (unknown) (no (unknown) (unknown) Heart Score (units (un known) date) troponin: < or = to unknown) normal limit (unknown) (no (unknown) (unknown) Hgb (12.0-16.0) (units (unknown) date) g/dL unknown) (unknown) (no (unknown) (unknown) Hgb 13.0 (units (unkn own) date) (12.0-16.0) g/dL unknown) (unknown) (no (unknown) (unknown) History of Present (units (unknown) date) Illness unknown) (unknown) (no (unknown) (unknown) History of colon (units (unknown) date) polyps (09/28/12) unknown) (unknown) (no (unknown) (unknown) History of left (units (unknown) date) breast cancer unknown) (-2008) (unknown) (no (unknown) (unknown) Hyperlipidemia (units (unknown) date) unknown) 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 (units (u nknown) date) unknown) (unknown) (no (unknown) (unknown) INDICATIONS:? (units ( unknown) date) chest pain unknown) (unknown) (no (unknown) (unknown) IVSd: 1.1 cm (units (u nknown) date) unknown) (unknown) (no (unknown) (unknown) Imaging Data (units (u nknown) date) unknown) (unknown) (no (unknown) (unknown) Initial Vital (units ( unknown) date) Signs unknown) (unknown) (no (unknown) (unknown) Initial Vital (units ( unknown) date) Signs: unknown) (unknown) (no (unknown) (unknown) Interpretation (units (unknown) date) Summary unknown) (unknown) (no (unknown) (unknown) Interpretation: (units (unknown) date) unknown) (unknown) (no (unknown) (unknown) LA A2 area: 27.3 (units (unknown) date) cm2? unknown) ? RA long axis: 6.0 cm (unknown) (no (unknown) (unknown) LA A4 area: 30.0 (units (unknown) date) cm2? unknown) ? RA area: 23.9 cm2 (unknown) (no (unknown) (unknown) LA length (vol): (units (unknown) date) 6.6 cm ? unknown) ? RA vol: 80.6 ml (unknown) (no (unknown) (unknown) LA vol index: 63.5 (units (unknown) date) ml/m2? unknown) ? IVC diam: 1.4 cm (unknown) (no (unknown) (unknown) LA vol: 106.2 ml? (units (unknown) date) ? unknown) ? RA : 48.2 ml/m2 (unknown) (no (unknown) (unknown) LVIDd: 4.9 cm ? ? (units (unknown) date) ? unknown) ? LVOT diam: 2.0 cm (unknown) (no (unknown) (unknown) LVIDs: 4.0 cm ? ? (units (unknown) date) ? unknown) ? Ao root diam: 3.2 cm (unknown) (no (unknown) (unknown) LVPWd: 0.96 cm (units (unknown) date) unknown) (unknown) (no (unknown) (unknown) Lab Data (units (unkno wn) date) unknown) (unknown) (no (unknown) (unknown) Labs: (units (unkno wn) date) unknown) (unknown) (no (unknown) (unknown) Lat Peak E' Benjamin: (units (unknown) date) 9.3 cm/sec? ? ? PA unknown) pr(Accel): 44.7 mmHg (unknown) (no (unknown) (unknown) Left Ventricle: ? (units (unknown) date) The left ventricle unknown) is normal in size and wall thickness. The (unknown) (no (unknown) (unknown) Limitations: (units (u nknown) date) altered mental unknown) status (unknown) (no (unknown) (unknown) Lipase (23-300) (units (unknown) date) U/L unknown) (unknown) (no (unknown) (unknown) Lipase 45 (units (un known) date) (23-300) U/L unknown) (unknown) (no (unknown) (unknown) Lipase Stat (units (un known) date) unknown) (unknown) (no (unknown) (unknown) Loc: AC (units (unkno wn) date) unknown) (unknown) (no (unknown) (unknown) Loc: ED (units (unkno wn) date) unknown) (unknown) (no (unknown) (unknown) Lungs and pleura:? (units (unknown) date) There is unknown) hyperinflation of the lungs with flattening of the (unknown) (no (unknown) (unknown) Lymph # (Auto) (units (unknown) date) (5940-8011) /uL unknown) (unknown) (no (unknown) (unknown) Lymph # (Auto) (units (unknown) date) 1300 (8809-4186) unknown) /uL (unknown) (no (unknown) (unknown) Lymph % (Auto) (units (unknown) date) (25-40) % unknown) (unknown) (no (unknown) (unknown) Lymph % (Auto) (units (unknown) date) 20.2 L (25-40) unknown) % (unknown) (no (unknown) (unknown) [id number] (units (unk nown) date) unknown) (unknown) (no (unknown) (unknown) MCA territory and (units (unknown) date) suggested if there unknown) were concerned of an acute on chronic CVA (unknown) (no (unknown) (unknown) MCH (26-34) PG (units (unknown) date) unknown) (unknown) (no (unknown) (unknown) MCH 30.1 (units (unkn own) date) (26-34) PG unknown) (unknown) (no (unknown) (unknown) MCHC (30-36) % (units (unknown) date) unknown) (unknown) (no (unknown) (unknown) MCHC 33.2 (units (unk nown) date) (30-36) % unknown) (unknown) (no (unknown) (unknown) MCV (80-100) fL (units (unknown) date) unknown) (unknown) (no (unknown) (unknown) MCV 90.9 (units (unkn own) date) (80-100) fL unknown) (unknown) (no (unknown) (unknown) MDM - Chest Pain (units (unknown) date) unknown) (unknown) (no (unknown) (unknown) MMode/2D (units (unkno wn) date) Measurements + unknown) Calculations (unknown) (no (unknown) (unknown) MR#: [id number] (units (unknown) date) unknown) (unknown) (no (unknown) (unknown) MUSCULOSKELETAL: (units (unknown) date) denies muscle or unknown) bony pain (unknown) (no (unknown) (unknown) MV A max benjamin: 2.1 (units (unknown) date) cm/sec ? TR unknown) max P.8 mmHg (unknown) (no (unknown) (unknown) MV E max benjamin: 96.4 (units (unknown) date) cm/sec? TR unknown) max benjamin: 228.2 cm/sec (unknown) (no (unknown) (unknown) MV E/A: 46.5 ? ? ? (units (unknown) date) ? PA V2 unknown) max: 95.2 cm/sec (unknown) (no (unknown) (unknown) MV dec time: 0.23 (units (unknown) date) sec unknown) (unknown) (no (unknown) (unknown) Magnesium (units (unkn own) date) (1.6-2.3) mg/dL unknown) (unknown) (no (unknown) (unknown) Magnesium 2.0 (units (unknown) date) (1.6-2.3) mg/dL unknown) (unknown) (no (unknown) (unknown) Magnesium Stat (units (unknown) date) unknown) (unknown) (no (unknown) (unknown) Measles (units (unkno wn) date) unknown) (unknown) (no (unknown) (unknown) Med Peak E' Benjamin: (units (unknown) date) 5.8 cm/sec? ? ? PA unknown) V2 mean: 64.6 cm/sec (unknown) (no (unknown) (unknown) Mediastinum:? (units ( unknown) date) Mediastinal unknown) contours are unchanged.? 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 (units (unknown) date) There is moderate unknown) mitral annular calcification. The mitral (unknown) (no (unknown) (unknown) Mode of arrival: (units (unknown) date) EMS unknown) (unknown) (no (unknown) (unknown) [place] # (Auto) (units ( unknown) date) (0-900) /uL unknown) (unknown) (no (unknown) (unknown) [place] # (Auto) 400 (units (unknown) date) (0-900) /uL unknown) (unknown) (no (unknown) (unknown) [place] % (Auto) (units ( unknown) date) (3-14) % unknown) (unknown) (no (unknown) (unknown) [place] % (Auto) 7.2 (units (unknown) date) (3-14) % unknown) (unknown) (no (unknown) (unknown) NECK: Trachea (units ( unknown) date) midline. unknown) (unknown) (no (unknown) (unknown) NEURO: AOx4. (units (u nknown) date) unknown) (unknown) (no (unknown) (unknown) NEUROLOGIC: Denies (units (unknown) date) weakness, numbness unknown) (unknown) (no (unknown) (unknown) Narrative (units (unkn own) date) unknown) (unknown) (no (unknown) (unknown) Narrative: (units (unk nown) date) unknown) (unknown) (no (unknown) (unknown) Narrative: (units (unk nown) date) unknown) (unknown) (no (unknown) (unknown) Neut # (Auto) (units ( unknown) date) (5050-3298) /uL unknown) (unknown) (no (unknown) (unknown) Neut # (Auto) (units ( unknown) date) 4400 (4468-1998) unknown) /uL (unknown) (no (unknown) (unknown) Neut % (Auto) (units ( unknown) date) (50-75) % unknown) (unknown) (no (unknown) (unknown) Neut % (Auto) (units ( unknown) date) 71.1 (50-75) % unknown) (unknown) (no (unknown) (unknown) No Action (units (unkn own) date) unknown) (unknown) (no (unknown) (unknown) No chest pain (units ( unknown) date) here. Blood unknown) pressure 170/89. It has improved. Reviewed results (unknown) (no (unknown) (unknown) No new issues (units ( unknown) date) during course of unknown) stay (unknown) (no (unknown) (unknown) No recent illness (units (unknown) date) fever chills cough unknown) cold or congestion. No urinary complaints. (unknown) (no (unknown) (unknown) Ordered: (units (unkno wn) date) unknown) (unknown) (no (unknown) (unknown) Ordering Provider: (units (unknown) date) Jossue Salcido MD unknown) (unknown) (no (unknown) (unknown) Ordering Provider: (units (unknown) date) Eliana Barry unknown) (unknown) (no (unknown) (unknown) Orders (units (unkno wn) date) unknown) (unknown) (no (unknown) (unknown) Osteoarthritis of (units (unknown) date) knees, bilateral unknown) (unknown) (no (unknown) (unknown) Overall no (units (unk nown) date) significant change unknown) from prior exam. However, there the MR and TR (unknown) (no (unknown) (unknown) Oxygen Delivery (units (unknown) date) Method 03/17/22 unknown) 21:05 (unknown) (no (unknown) (unknown) Oxygen Delivery (units (unknown) date) Method Room Air unknown) (unknown) (no (unknown) (unknown) PROCEDURE:? XR (units (unknown) date) CHEST 1V unknown) (unknown) (no (unknown) (unknown) PSYCH: Not (units (un known) date) anxious, is unknown) cooperative (unknown) (no (unknown) (unknown) Patient (units (unkno wn) date) Disposition: Home unknown) (unknown) (no (unknown) (unknown) Patient History (units (unknown) date) unknown) (unknown) (no (unknown) (unknown) Patient brought (units (unknown) date) here by ambulance unknown) from home. Complaints of chest pain relief (unknown) (no (unknown) (unknown) Patient: (units (unkno wn) date) Jackie Prather unknown) MR#: (unknown) (no (unknown) (unknown) Patient: (units (unkno wn) date) Jackie Prather unknown) (unknown) (no (unknown) (unknown) Pericardium/ (units (u nknown) date) Pleura ? There is unknown) no pericardial effusion. 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 (units (unknown) date) The pulmonic valve unknown) is not well seen, but is grossly normal. (unknown) (no (unknown) (unknown) Pulse Oximetry 96 (units (unknown) date) 03/17/22 21:05 unknown) (unknown) (no (unknown) (unknown) Pulse Oximetry 96 (units (unknown) date) unknown) (unknown) (no (unknown) (unknown) Pulse Rate 118 H (units (unknown) date) 03/17/22 21:05 unknown) (unknown) (no (unknown) (unknown) Pulse Rate 118 H (units (unknown) date) 98 H 82 unknown) (unknown) (no (unknown) (unknown) RDW (11.6-14.8) (units (unknown) date) % unknown) (unknown) (no (unknown) (unknown) RDW 14.7 (units (unkn own) date) (11.6-14.8) % unknown) (unknown) (no (unknown) (unknown) RESPIRATORY: Clear (units (unknown) date) to auscultation. unknown) Breath sounds equal bilaterally. No wheezes, (unknown) (no (unknown) (unknown) RESPIRATORY: (units (u nknown) date) Denies dyspnea, unknown) cough (unknown) (no (unknown) (unknown) ROS Unobtainable: (units (unknown) date) All systems unknown) reviewed + are unremarkable except as noted in HPI (unknown) (no (unknown) (unknown) RVD1 (basal): 3.8 (units (unknown) date) cm unknown) (unknown) (no (unknown) (unknown) RVD2 (mid): 3.8 cm (units (unknown) date) unknown) (unknown) (no (unknown) (unknown) Reading (units (unkno wn) date) Physician:AM unknown) (unknown) (no (unknown) (unknown) Reevaluation #1: (units (unknown) date) unknown) (unknown) (no (unknown) (unknown) Reevaluation(s) (units (unknown) date) unknown) (unknown) (no (unknown) (unknown) Related Data (units (u nknown) date) unknown) (unknown) (no (unknown) (unknown) Respiratory Rate (units (unknown) date) 20 03/17/22 21:05 unknown) (unknown) (no (unknown) (unknown) Respiratory Rate (units (unknown) date) 20 unknown) (unknown) (no (unknown) (unknown) Result diagrams: (units (unknown) date) unknown) (unknown) (no (unknown) (unknown) Review of Systems (units (unknown) date) unknown) (unknown) (no (unknown) (unknown) Right Ventricle: ? (units (unknown) date) The right ventricle unknown) is normal size. Right ventricular (unknown) (no (unknown) (unknown) Right ventricular (units (unknown) date) systolic function unknown) is mild to moderately reduced. (unknown) (no (unknown) (unknown) SARS-CoV-2 (PCR) (units (unknown) date) Negative unknown) (Negative) (unknown) (no (unknown) (unknown) SARS-CoV-2 (PCR) (units (unknown) date) (Negative) unknown) (unknown) (no (unknown) (unknown) SKIN: Warm and (units (unknown) date) dry unknown) (unknown) (no (unknown) (unknown) SKIN: Denies rash, (units (unknown) date) skin lesions unknown) (unknown) (no (unknown) (unknown) SV(LVOT): 36.8 ml (units (unknown) date) unknown) (unknown) (no (unknown) (unknown) Scores (units (unkno wn) date) unknown) (unknown) (no (unknown) (unknown) Service: 02/16/22 (units (unknown) date) unknown) (unknown) (no (unknown) (unknown) She presented (units ( unknown) date) today with EMS and unknown) she was very confused and apparently covered (unknown) (no (unknown) (unknown) She told the nurse (units (unknown) date) that she lives in unknown) an apartment that is connected to the house (unknown) (no (unknown) (unknown) Signed By: (units (unk nown) date) unknown) (unknown) (no (unknown) (unknown) Smoking Status: (units (unknown) date) Never smoker unknown) (unknown) (no (unknown) (unknown) Smoking Status: (units (unknown) date) Never smoker unknown) (unknown) (no (unknown) (unknown) Social History (units (unknown) date) (Reviewed 03/17/22 unknown) @ 21:36 by Jossue Salcido MD) (unknown) (no (unknown) (unknown) Sodium (137-145) (units (unknown) date) mmol/L unknown) (unknown) (no (unknown) (unknown) Sodium 140 (units (u nknown) date) (137-145) mmol/L unknown) (unknown) (no (unknown) (unknown) Source: patient (units (unknown) date) unknown) (unknown) (no (unknown) (unknown) Speech and (units (unk n) date) language unknown) 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 (09/28/12) (unknown) (no (unknown) (unknown) Spoke with (units (unk n) date) Cardiology, unknown) Goldie recommends admission and get a nuclear (unknown) (no (unknown) (unknown) Stated Complaint: (units (unknown) date) Chest Pain, Welfare unknown) check (unknown) (no (unknown) (unknown) Status post (units (un known) date) arthroscopy unknown) (unknown) (no (unknown) (unknown) Status post biopsy (units (unknown) date) (-2014) unknown) (unknown) (no (unknown) (unknown) Status post breast (units (unknown) date) lumpectomy (-2008) unknown) (unknown) (no (unknown) (unknown) Status post (units (un known) date) cholecystectomy unknown) (unknown) (no (unknown) (unknown) 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 One (units (unknown) date) view of the chest unknown) was acquired.? (unknown) (no (unknown) (unknown) Temperature 97.7 (units (unknown) date) F 03/17/22 21:05 unknown) (unknown) (no (unknown) (unknown) Temperature 97.7 F (units (unknown) date) unknown) (unknown) (no (unknown) (unknown) The aortic valve (units (unknown) date) is mildly unknown) calcified. (unknown) (no (unknown) (unknown) The ejection (units (u nknown) date) fraction is unknown) estimated to be 35-40%. (unknown) (no (unknown) (unknown) The inferior and (units (unknown) date) inferposterior are unknown) relatively more hypokinetic, but overall (unknown) (no (unknown) (unknown) The left atrium is (units (unknown) date) severely dilated. unknown) (unknown) (no (unknown) (unknown) The left ventricle (units (unknown) date) is normal in size unknown) and wall thickness. (unknown) (no (unknown) (unknown) The pulmonary (units ( unknown) date) hypertension is unknown) improved from prior exam. (unknown) (no (unknown) (unknown) The right atrium (units (unknown) date) is severely unknown) dilated. (unknown) (no (unknown) (unknown) The right (units (unkn own) date) ventricular unknown) systolic pressure is estimated to be at least 29 mmHg (unknown) (no (unknown) (unknown) There is mild (units ( unknown) date) mitral unknown) regurgitation. (unknown) (no (unknown) (unknown) There is mild to (units (unknown) date) moderate global unknown) hypokinesis of the left ventricle. (unknown) (no (unknown) (unknown) There is mild (units ( unknown) date) tricuspid unknown) regurgitation. The right ventricular systolic pressure (unknown) (no (unknown) (unknown) There is moderate (units (unknown) date) mitral annular unknown) calcification. (unknown) (no (unknown) (unknown) There is no (units (un known) date) pulmonic valvular unknown) regurgitation. (unknown) (no (unknown) (unknown) Time Seen by (units (u nknown) date) Provider: 03/17/22 unknown) 21:24 (unknown) (no (unknown) (unknown) Time: 02:33 (units (un known) date) unknown) (unknown) (no (unknown) (unknown) Time: 02:43 (units (un known) date) unknown) (unknown) (no (unknown) (unknown) Time: 02:46 (units (un known) date) unknown) (unknown) (no (unknown) (unknown) Total Bilirubin (units (unknown) date) (0.2-1.3) mg/dL unknown) (unknown) (no (unknown) (unknown) Total Bilirubin (units (unknown) date) 0.9 (0.2-1.3) unknown) mg/dL (unknown) (no (unknown) (unknown) Total Creatine (units (unknown) date) Kinase < 20 L unknown) (30-135) U/L (unknown) (no (unknown) (unknown) Total Creatine (units (unknown) date) Kinase (30-135) unknown) U/L (unknown) (no (unknown) (unknown) Total Protein (units ( unknown) date) (6.3-8.2) g/dL unknown) (unknown) (no (unknown) (unknown) Total Protein (units ( unknown) date) 7.6 (6.3-8.2) unknown) g/dL (unknown) (no (unknown) (unknown) Tricuspid Valve: ? (units (unknown) date) The tricuspid valve unknown) is normal in structure and function. (unknown) (no (unknown) (unknown) Troponin + CK (units ( unknown) date) Cardiac Panel Stat unknown) (unknown) (no (unknown) (unknown) Troponin I < (units (unknown) date) 0.012 unknown) (0.01-0.034) ng/mL (unknown) (no (unknown) (unknown) Troponin I < (units ( unknown) date) 0.012 (0.01-0.034) unknown) ng/mL (unknown) (no (unknown) (unknown) Troponin I Stat (units (unknown) date) unknown) (unknown) (no (unknown) (unknown) Vital Signs (units (un known) date) unknown) (unknown) (no (unknown) (unknown) Vital signs: (units (u nknown) date) unknown) (unknown) (no (unknown) (unknown) Written by (units (unk nown) date) admitting provider. unknown) (unknown) (no (unknown) (unknown) XR chest 1V Stat (units (unknown) date) unknown) (unknown) (no (unknown) (unknown) [Embedded Image (units (unknown) date) Not Available] unknown) (unknown) (no (unknown) (unknown) (units (unknown) date) unknown) ___ (unknown) (no (unknown) (unknown) acute (units (unkno wn) date) diverticulitis.? unknown) WBC is unremarkable, she has a creatinine bump of 1.06 (unknown) (no (unknown) (unknown) alcohol intake (units (unknown) date) frequency: unknown) holidays/special occasions only (unknown) (no (unknown) (unknown) alcohol intake: (units (unknown) date) never unknown) (unknown) (no (unknown) (unknown) and Doppler was (units (unknown) date) performed. The unknown) study quality was technically adequate. (unknown) (no (unknown) (unknown) and apparently that (units (unknown) date) is been an issue.? unknown) Review of case management note written on (unknown) (no (unknown) (unknown) and left axilla. (units (unknown) date) unknown) (unknown) (no (unknown) (unknown) apixaban 5 mg (units ( unknown) date) tablet 5 mg PO BID unknown) #180 tabs 03/11/21 (unknown) (no (unknown) (unknown) appear (units (unkno wn) date) unknown) (unknown) (no (unknown) (unknown) are now mild (units (u nknown) date) instead of unknown) moderate. (unknown) (no (unknown) (unknown) ascending aorta (units (unknown) date) are normal. The IVC unknown) is of normal diameter and collapses less (unknown) (no (unknown) (unknown) atherosclerotic (units (unknown) date) plaque protecting unknown) meds. (unknown) (no (unknown) (unknown) atorvastatin 40 mg (units (unknown) date) tablet 40 mg PO unknown) BEDTIME #90 tabs 12/11/21 (unknown) (no (unknown) (unknown) atrial (units (unkno wn) date) fibrillation with unknown) heart rates between 54-75 bpm during the exam. (unknown) (no (unknown) (unknown) based on an (units (un known) date) estimated right unknown) atrial pressure of 8 mm Hg. (unknown) (no (unknown) (unknown) because supposedly (units (unknown) date) her son found her unknown) passed out on the ?marcell potty'.? Patient (unknown) (no (unknown) (unknown) butter cookies and (units (unknown) date) then has maybe a unknown) hot meal, usually hamburger.? (unknown) (no (unknown) (unknown) by cab.? She was (units (unknown) date) apparently seen in unknown) the emergency department on February 14 and at (unknown) (no (unknown) (unknown) chest abdomen and (units (unknown) date) pelvis reported a unknown) small right upper lobe 0.4 cm pulmonary (unknown) (no (unknown) (unknown) class 2 (06/05/11) (units (unknown) date) unknown) (unknown) (no (unknown) (unknown) contaminated and a (units (unknown) date) culture was not unknown) able to be grown or specified. (unknown) (no (unknown) (unknown) daily for rate (units (unknown) date) control. unknown) (unknown) (no (unknown) (unknown) diclofenac sodium (units (unknown) date) 1 % topical gel 2 g unknown) topical QID #100 grams 02/03/22 (unknown) (no (unknown) (unknown) dilated. There is (units (unknown) date) no Doppler evidence unknown) for an interatrial shunt. (unknown) (no (unknown) (unknown) discharge note (units (unknown) date) below. Denies any unknown) recent illness. No fall or injury. She (unknown) (no (unknown) (unknown) distention in the (units (unknown) date) rectum likely unknown) impaction and colonic diverticulosis without (unknown) (no (unknown) (unknown) effusion. (units (unkn own) date) unknown) (unknown) (no (unknown) (unknown) effusions or (units (u nknown) date) unknown) (unknown) (no (unknown) (unknown) ejection fraction (units (unknown) date) is estimated to be unknown) 35-40%. There is mild to moderate global (unknown) (no (unknown) (unknown) enlarged. (units (unkn own) date) unknown) (unknown) (no (unknown) (unknown) function could not (units (unknown) date) be accurately unknown) assessed due to atrial fibrillation. 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 No acute consolidation.? No pleural (unknown) (no (unknown) (unknown) hemodynamically (units (unknown) date) significant unknown) valvular aortic stenosis. There is trace aortic (unknown) (no (unknown) (unknown) household members: (units (unknown) date) children unknown) (unknown) (no (unknown) (unknown) hydrocodone 5 (units ( unknown) date) mg-acetaminophen unknown) 325 1 tab PO BID PRN pain #20 tabs 03/02/22 (unknown) (no (unknown) (unknown) hypokinesis of the (units (unknown) date) left ventricle. The unknown) inferior and inferposterior are (unknown) (no (unknown) (unknown) in the process of (units (unknown) date) being evicted from unknown) an apartment however she has tenant rights (unknown) (no (unknown) (unknown) inhalational (units (u nknown) date) spacing device #1 unknown) ea 11/01/19 (unknown) (no (unknown) (unknown) is estimated to be (units (unknown) date) at least 29 mmHg unknown) based on an estimated right atrial (unknown) (no (unknown) (unknown) last month for (units (unknown) date) multiple problems. unknown) Did have echocardiogram done. Please see (unknown) (no (unknown) (unknown) likely adversely (units (unknown) date) affecting all of unknown) the patient's other comorbidities. (unknown) (no (unknown) (unknown) lisinopril AdvReac (units (unknown) date) Mild Cough Verified unknown) 02/16/22 18:19 (unknown) (no (unknown) (unknown) lives with her son (units (unknown) date) and was recently unknown) homeless.? She was apparently confused, (unknown) (no (unknown) (unknown) losartan 50 mg (units (unknown) date) tablet 50 mg PO unknown) DAILY #90 tabs 02/09/22 (unknown) (no (unknown) (unknown) mediastinum (units (un known) date) unknown) (unknown) (no (unknown) (unknown) metoprolol (units (unk nown) date) tartrate 25 mg unknown) tablet 12.5 mg PO DAILY #45 tabs 12/11/21 (unknown) (no (unknown) (unknown) mg tablet (units (unkn own) date) unknown) (unknown) (no (unknown) (unknown) multiple times (units (unknown) date) when the son was unknown) contacted he was hard to be connected to and (unknown) (no (unknown) (unknown) nitroglycerin 0.4 (units (unknown) date) mg sublingual See unknown) Rx Instructions sublingual PRN 10/26/21 (unknown) (no (unknown) (unknown) nodule with (units (un known) date) recommendations for unknown) follow-up in 12 months and moderate stool (unknown) (no (unknown) (unknown) pain, CAD, (units (unk nown) date) anxiety, atrial unknown) fibrillation on anticoagulation, history of (unknown) (no (unknown) (unknown) pantoprazole 40 mg (units (unknown) date) tablet,delayed 40 unknown) mg PO DAILY #90 tabs 02/09/22 (unknown) (no (unknown) (unknown) patient declined (units (unknown) date) SNF placement, and unknown) will receive home health aide on discharge. (unknown) (no (unknown) (unknown) please add the (units (unknown) date) following: severe, unknown) acute protein-calorie malnutrition. This is (unknown) (no (unknown) (unknown) pneumothorax.? (units (unknown) date) unknown) (unknown) (no (unknown) (unknown) pressure of 8 mm (units (unknown) date) Hg. unknown) (unknown) (no (unknown) (unknown) regurgitation. (units (unknown) date) unknown) (unknown) (no (unknown) (unknown) relatively more (units (unknown) date) hypokinetic, but unknown) overall unchanged from prior exam. Diastolic (unknown) (no (unknown) (unknown) release (units (unkno wn) date) unknown) (unknown) (no (unknown) (unknown) relief. (units (unkno wn) date) unknown) (unknown) (no (unknown) (unknown) right MCA infarct (units (unknown) date) unknown) (unknown) (no (unknown) (unknown) right parietal and (units (unknown) date) temporal lobes unknown) consistent with a prior infarct in the right (unknown) (no (unknown) (unknown) sertraline (units (unk nown) date) [SERTRALINE] unknown) Allergy Mild FEELS Verified 02/16/22 18:19 (unknown) (no (unknown) (unknown) states she is in a (units (unknown) date) better living unknown) condition since being discharged last month. (unknown) (no (unknown) (unknown) states she only (units (unknown) date) eats 2 times a day unknown) consisting mostly of putting and peanut (unknown) (no (unknown) (unknown) stress test (units (un known) date) unknown) (unknown) (no (unknown) (unknown) systolic function (units (unknown) date) is mild to unknown) moderately reduced. (unknown) (no (unknown) (unknown) tablet (Nitrostat) (units (unknown) date) PRN Chest Pain #30 unknown) tabs (unknown) (no (unknown) (unknown) than 50% with a (units (unknown) date) sniff. This unknown) suggests a right atrial pressure of 8 mm Hg. 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 History of (units (unknown) date) coronary disease unknown) with bypass surgery. Recently admitted here (unknown) (no (unknown) (unknown) to have the (units (un known) date) patient undergo MRI unknown) imaging to further delineate this.? CT of the (unknown) (no (unknown) (unknown) trace leukocyte (units (unknown) date) esterase and will unknown) be cultured.? COVID-19 PCR is negative. (unknown) (no (unknown) (unknown) unchanged from (units (unknown) date) prior exam. unknown) (unknown) (no (unknown) (unknown) unkempt and (units (un known) date) appeared to be not unknown) cared for hygienic Jael.? It appears that (unknown) (no (unknown) (unknown) unremarkable.? (units (unknown) date) unknown) (unknown) (no (unknown) (unknown) valve leaflets are (units (unknown) date) mildly calcified. unknown) There is mild mitral regurgitation. (unknown) (no (unknown) (unknown) when they were (units (unknown) date) able to reach him unknown) he would request that the patient be sent home (unknown) (no (unknown) (unknown) with an EGFR of (units (unknown) date) 52, alk-phos unknown) elevated at 146 UA is positive for ketones and (unknown) (no (unknown) (unknown) with home (units (unkn own) date) nitroglycerin. To unknown) calm 81 mg aspirin. Denies any chest pain at this (unknown) (no (unknown) (unknown) with patient. (units ( unknown) date) Agrees for admit. unknown) (unknown) (no (unknown) (unknown) with stool and (units (unknown) date) urine. unknown) Result panel 12 (unknown) (no (unknown) (unknown) 2. This likely is (units (unknown) date) contributing unknown) greatly to problem 1. Continue home (unknown) (no (unknown) (unknown) Qty: 1 0RF (units (unk nown) date) unknown) (unknown) (no (unknown) (unknown) (no value) (units (unk nown) date) unknown) (unknown) (no (unknown) (unknown) Radiologist's (units ( unknown) date) Impression: unknown) (unknown) (no (unknown) (unknown) Date of Service: (units (unknown) date) 03/18/22 unknown) (unknown) (no (unknown) (unknown) (no value) (units (unk nown) date) unknown) (unknown) (no (unknown) (unknown) 'DRUGGED' (units (unkn own) date) unknown) (unknown) (no (unknown) (unknown) 02/16/22 23:18 (units (unknown) date) unknown) (unknown) (no (unknown) (unknown) 02/17/22 01:58 (units (unknown) date) unknown) (unknown) (no (unknown) (unknown) 02/17/22 02:01 (units (unknown) date) unknown) (unknown) (no (unknown) (unknown) 02/17/22 05:08 (units (unknown) date) unknown) (unknown) (no (unknown) (unknown) 03/17/22 20:07 (units (unknown) date) unknown) (unknown) (no (unknown) (unknown) 1 tab PO BID PRN (units (unknown) date) (Reason: pain) Qty: unknown) 20 0RF (unknown) (no (unknown) (unknown) 1 tab under tongue (units (unknown) date) every five minutes unknown) up to three times, call 911 if no (unknown) (no (unknown) (unknown) 1. Physical (units (un known) date) debility/deconditio unknown) gelacio (unknown) (no (unknown) (unknown) 12.5 mg PO DAILY (units (unknown) date) Qty: 45 0RF unknown) (unknown) (no (unknown) (unknown) [address] [place] [address] (units (unknown) date) unknown) (unknown) (no (unknown) (unknown) 2 g topical QID (units (unknown) date) Qty: 100 0RF unknown) (unknown) (no (unknown) (unknown) 3. Atrial (units (unkn own) date) fibrillation unknown) (unknown) (no (unknown) (unknown) 300 mg PO TID Qty: (units (unknown) date) 270 0RF unknown) (unknown) (no (unknown) (unknown) 4. 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 Will continue (units (unknown) date) torsemide 20 mg unknown) daily on discharge. (unknown) (no (unknown) (unknown) 40 mg PO BEDTIME (units (unknown) date) Qty: 90 0RF unknown) (unknown) (no (unknown) (unknown) 40 mg PO DAILY (units (unknown) date) Qty: 90 0RF unknown) (unknown) (no (unknown) (unknown) 5 mg PO BID Qty: (units (unknown) date) 180 1RF unknown) (unknown) (no (unknown) (unknown) 5. Hypertension (units (unknown) date) unknown) (unknown) (no (unknown) (unknown) 5. Will resume (units (unknown) date) home losartan 50 mg unknown) daily. (unknown) (no (unknown) (unknown) 50 mg PO DAILY (units (unknown) date) Qty: 90 1RF unknown) (unknown) (no (unknown) (unknown) 6. Conservative (units (unknown) date) management and unknown) encouraged ambulation. (unknown) (no (unknown) (unknown) 6. Constipation (units (unknown) date) with impaction, unknown) improved (unknown) (no (unknown) (unknown) Allergies (units (unkn own) date) unknown) (unknown) (no (unknown) (unknown) [place], [place] (units ( unknown) date) [id number] unknown) (unknown) (no (unknown) (unknown) As directed (units (un known) date) unknown) (unknown) (no (unknown) (unknown) Assessment: (units (un known) date) unknown) (unknown) (no (unknown) (unknown) Comment: (units (unkno wn) date) unknown) (unknown) (no (unknown) (unknown) Comment: APS case (units (unknown) date) for neglect unknown) (unknown) (no (unknown) (unknown) Comment: Failure (units (unknown) date) to thrive, needs unknown) placement? (unknown) (no (unknown) (unknown) Comment: Prior (units (unknown) date) CVA, mild unknown) dysarthria, syncopal episode (unknown) (no (unknown) (unknown) Comment: Prior (units (unknown) date) CVA, syncopal unknown) episode (unknown) (no (unknown) (unknown) Comment: Prior (units (unknown) date) CVA, syncopal unknown) episode, cognitive eval (unknown) (no (unknown) (unknown) Consult to (units (unk nown) date) Dietitian, Adult unknown) Routine (unknown) (no (unknown) (unknown) Consult to (units (unk nown) date) Discharge Planning unknown) Routine (unknown) (no (unknown) (unknown) Consult to WE[facility]TER - (units (unknown) 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) Routine (unknown) (no (unknown) (unknown) Consult to (units (unk nown) date) Occupational unknown) Therapy Evaluate + Treat (unknown) (no (unknown) (unknown) Consult to (units (unk nown) date) Physical Therapy unknown) Evaluate + Treat (unknown) (no (unknown) (unknown) Consult to Social (units (unknown) date) Services Routine unknown) (unknown) (no (unknown) (unknown) Consult to Speech (units (unknown) date) Therapy Evaluate + unknown) Treat (unknown) (no (unknown) (unknown) Discharge (units (unkn own) date) Diagnosis: unknown) (unknown) (no (unknown) (unknown) Discharge Summary (units (unknown) date) unknown) (unknown) (no (unknown) (unknown) Discharge (units (unkn own) date) provider: unknown) (unknown) (no (unknown) (unknown) Documented By: EB (units (unknown) date) unknown) (unknown) (no (unknown) (unknown) Documented By: NR (units (unknown) date) unknown) (unknown) (no (unknown) (unknown) Dose Instruction: (units (unknown) date) unknown) (unknown) (no (unknown) (unknown) ED Orders (units (unkn own) date) unknown) (unknown) (no (unknown) (unknown) Echocardiography (units (unknown) date) Report unknown) (unknown) (no (unknown) (unknown) Emergency Report (units (unknown) date) unknown) (unknown) (no (unknown) (unknown) Soo Singh MD (units (unknown) date) unknown) (unknown) (no (unknown) (unknown) Hold Instructions: (units (unknown) date) stopped at unknown) [place] ([facility]) (no (unknown) (unknown) Hospital Course (units (unknown) date) unknown) (unknown) (no (unknown) (unknown) [facility] (units (unknown) date) unknown) (unknown) (no (unknown) (unknown) [facility] (units (unknown) date) [address] unknown) [place] [id number] (unknown) (no (unknown) (unknown) Lab Results (units (un known) date) unknown) (unknown) (no (unknown) (unknown) Last Admin: (units (un known) date) 03/17/22 22:13 unknown) Dose: 243 mg (unknown) (no (unknown) (unknown) Last Admin: (units (un known) date) 03/18/22 00:06 unknown) Dose: 25 mg (unknown) (no (unknown) (unknown) Last Admin: (units (un known) date) 03/18/22 00:06 unknown) Dose: 5 mg (unknown) (no (unknown) (unknown) Patient unable to (units (unknown) date) walk 200 feet unknown) without stopping to rest. (unknown) (no (unknown) (unknown) Physician (units (unkn own) date) Instructions: unknown) Evaluate and Treat (unknown) (no (unknown) (unknown) Physician (units (unkn own) date) Instructions: unknown) Evaluate and treat (unknown) (no (unknown) (unknown) Plan: (units (unkno wn) date) unknown) (unknown) (no (unknown) (unknown) Previous Rx's (units ( unknown) date) unknown) (unknown) (no (unknown) (unknown) Reason For Exam: (units (unknown) date) malnutrition + no unknown) teeth (unknown) (no (unknown) (unknown) Rx Instructions: (units (unknown) date) unknown) (unknown) (no (unknown) (unknown) See Rx (units (unkno wn) date) Instructions unknown) .ROUTE .MEDSUPPLY Qty: 1 0RF (unknown) (no (unknown) (unknown) See Rx (units (unkno wn) date) Instructions unknown) Sublingual PRN PRN (Reason: Chest Pain) Qty: 30 0RF (unknown) (no (unknown) (unknown) Signed (units (unkno wn) date) unknown) (unknown) (no (unknown) (unknown) Stop: 03/17/22 (units (unknown) date) 21:32 unknown) (unknown) (no (unknown) (unknown) Stop: 03/17/22 (units (unknown) date) 23:33 unknown) (unknown) (no (unknown) (unknown) Summary (units (unkno wn) date) unknown) (unknown) (no (unknown) (unknown) Vital Signs - 8 hr (units (unknown) date) unknown) (unknown) (no (unknown) (unknown) XRay Report (units (un known) date) unknown) (unknown) (no (unknown) (unknown) apply to single (units (unknown) date) elbow, wrist or unknown) hand; for hand includes palm/fingers/back of (unknown) (no (unknown) (unknown) (no value) (units (unk nown) date) unknown) (unknown) (no (unknown) (unknown) (DME) Aerochamber (units (unknown) date) MV Spacer unknown) (unknown) (no (unknown) (unknown) (DME) Handicap (units (unknown) date) Parking unknown) (unknown) (no (unknown) (unknown) ADDENDUMAs an (units (unknown) date) addendum to the unknown) assessment and plan portion of this note, (unknown) (no (unknown) (unknown) 01:30 (units (unkno wn) date) unknown) (unknown) (no (unknown) (unknown) 03/17/22 03/17/22 (units (unknown) date) 03/17/22 unknown) Range/Units (unknown) (no (unknown) (unknown) 03/18/22 (units (unkno wn) date) Range/Units unknown) (unknown) (no (unknown) (unknown) 20:07 20:07 22:12 (units (unknown) date) unknown) (unknown) (no (unknown) (unknown) apixaban 5 mg (units ( unknown) date) tablet unknown) (unknown) (no (unknown) (unknown) atorvastatin 40 mg (units (unknown) date) tablet unknown) (unknown) (no (unknown) (unknown) diclofenac sodium (units (unknown) date) 1 % gel unknown) (unknown) (no (unknown) (unknown) gabapentin (units (unk nown) date) [Neurontin] 300 mg unknown) capsule (unknown) (no (unknown) (unknown) hydrocodone-acetam (units (unknown) date) inophen 5-325 mg unknown) tablet (unknown) (no (unknown) (unknown) losartan 50 mg (units (unknown) date) tablet unknown) (unknown) (no (unknown) (unknown) metoprolol (units (unk nown) date) tartrate 25 mg unknown) tablet (unknown) (no (unknown) (unknown) nitroglycerin (units ( unknown) date) [Nitrostat] 0.4 mg unknown) tablet, sublingual (unknown) (no (unknown) (unknown) pantoprazole 40 mg (units (unknown) date) tablet,delayed unknown) release (DR/EC) (unknown) (no (unknown) (unknown) 03/17/22 (units (unkno wn) date) unknown) (unknown) (no (unknown) (unknown) 3. Will continue (units (unknown) date) Eliquis 5 mg bid unknown) for anticoagulation, with Lopressor 12.5 mg (unknown) (no (unknown) (unknown) Chest pain (units (unk nown) date) unknown) (unknown) (no (unknown) (unknown) Medication (units (unk nown) date) Instructions unknown) Recorded (unknown) (no (unknown) (unknown) Patient is awake (units (unknown) date) alert oriented x3. unknown) (unknown) (no (unknown) (unknown) and below (units (unkn own) date) unknown) (unknown) (no (unknown) (unknown) chest pain, st (units (unknown) date) elevation unknown) myocardial infarction and chest pain (unknown) (no (unknown) (unknown) rales, or rhonchi. (units (unknown) date) unknown) (unknown) (no (unknown) (unknown) <Electronically (units (unknown) date) signed by Soo unknown) MD [facility]> (unknown) (no (unknown) (unknown) (12/05/17) (units (unk nown) date) unknown) (unknown) (no (unknown) (unknown) (Aerochamber MV (units (unknown) date) spacer) unknown) (unknown) (no (unknown) (unknown) (Neurontin) (units (un known) date) unknown) (unknown) (no (unknown) (unknown) +---------+? (units (unknown) date) ? unknown) [phone]? +---------+ (unknown) (no (unknown) (unknown) +---------+? (units (unknown) date) ? unknown) Hospital? +---------+ (unknown) (no (unknown) (unknown) + (units (unknown) date) unknown) ---+ (unknown) (no (unknown) (unknown) 00:06 03/18/22 (units (unknown) date) unknown) (unknown) (no (unknown) (unknown) 01:00 (units (unkno wn) date) unknown) (unknown) (no (unknown) (unknown) 02/16/22 21:54 (units (unknown) date) unknown) (unknown) (no (unknown) (unknown) 02/20/22 1321 (units ( unknown) date) unknown) (unknown) (no (unknown) (unknown) 03/17/22 20:07 (units (unknown) date) unknown) (unknown) (no (unknown) (unknown) 03/17/22 21:08 (units (unknown) date) unknown) (unknown) (no (unknown) (unknown) 03/17/22 21:09 (units (unknown) date) unknown) (unknown) (no (unknown) (unknown) 03/18/22 00:22 (units (unknown) date) unknown) (unknown) (no (unknown) (unknown) 03/18/22 01:30 (units (unknown) date) unknown) (unknown) (no (unknown) (unknown) 1. 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 (unknown) (no (unknown) (unknown) 1. Physical (units (un known) date) debility/deconditio unknown) gelcaio (unknown) (no (unknown) (unknown) 1. This is likely (units (unknown) date) a function of unknown) advancing age and sedentary status at home. The (unknown) (no (unknown) (unknown) 1. This is likely (units (unknown) date) a function of unknown) advancing age and sedentary status at home. 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 This likely is (units (unknown) date) contributing unknown) greatly to problem 1. Continue home (unknown) (no (unknown) (unknown) 215-1 (units (unkno wn) date) unknown) (unknown) (no (unknown) (unknown) 21:05 03/18/22 (units (unknown) date) unknown) (unknown) (no (unknown) (unknown) 3. Atrial (units (unkn own) date) fibrillation unknown) (unknown) (no (unknown) (unknown) 3. Will continue (units (unknown) date) Eliquis 5 mg bid unknown) for anticoagulation, with Lopressor 12.5 mg (unknown) (no (unknown) (unknown) 4. 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 Will continue (units (unknown) date) torsemide 20 mg unknown) daily on discharge. (unknown) (no (unknown) (unknown) 5. Hypertension (units (unknown) date) unknown) (unknown) (no (unknown) (unknown) 5. Will resume (units (unknown) date) home losartan 50 mg unknown) daily. (unknown) (no (unknown) (unknown) 6. Conservative (units (unknown) date) management and unknown) encouraged ambulation. (unknown) (no (unknown) (unknown) 6. Constipation (units (unknown) date) with impaction, unknown) improved (unknown) (no (unknown) (unknown) : ? : ? ? ? (units (unknown) date) ? unknown) Phone: [phone]? : ? : (unknown) (no (unknown) (unknown) : ? :? (units (unknown) date) ? 1211 unknown) . ? : ? : (unknown) (no (unknown) (unknown) : ? :? (units (unknown) date) ? unknown) [id number] ? : ? : (unknown) (no (unknown) (unknown) : ? :? (units (unknown) date) ? unknown) [place], [place] ? : ? : (unknown) (no (unknown) (unknown) :Account #: (units (un known) date) [id number]? unknown) Gender: Female ? BSA: 1.7 m2? ? : (unknown) (no (unknown) (unknown) :: 1935? (units (unknown) date) ? Age: unknown) 86 yrs? BP: 184/97 mmHg: (unknown) (no (unknown) (unknown) :Hospital MRN #: (units (unknown) date) [id number] ? ? unknown) ReadingLocation: ? Weight: 128 lb : (unknown) (no (unknown) (unknown) :Name: YAMILKA, (units (unknown) date) JACKIE Barba? ? ? unknown) Study Date: 02/17/2022 ? Height: 67 in? : (unknown) (no (unknown) (unknown) :Ordering (units (unkn own) date) Physician: ASHA, unknown) DEBRAPerformed By: Lyly Casanova? : (unknown) (no (unknown) (unknown) :Reason For Study: (units (unknown) date) CVA? unknown) ? : (unknown) (no (unknown) (unknown) :Referring: ASHA (units (unknown) date) ELIANA ? unknown) ? : (unknown) (no (unknown) (unknown) ? (units (unkno wn) date) unknown) (unknown) (no (unknown) (unknown) ? (units (unknown) date) ? unknown) ? Date of (unknown) (no (unknown) (unknown) ? (units (unknown) date) ? unknown) [place] (unknown) (no (unknown) (unknown) ? (units (unknown) date) Electronically unknown) signed by: Charlie Clemente on 02/17/2022 09:11 (unknown) (no (unknown) (unknown) ? (units (unkno wn) date) unknown) (unknown) (no (unknown) (unknown) ? (units (unknown) date) ? unknown) sev ratio: 0.49 (unknown) (no (unknown) (unknown) ? (units (unknown) date) ? unknown) Echocardiogram Report (unknown) (no (unknown) (unknown) ALT (<35) IU/L (units (unknown) date) unknown) (unknown) (no (unknown) (unknown) ALT 10 (<35) (units (unknown) date) IU/L unknown) (unknown) (no (unknown) (unknown) AST (14-36) (units ( unknown) date) IU/L unknown) (unknown) (no (unknown) (unknown) AST 26 (14-36) (units (unknown) date) IU/L unknown) (unknown) (no (unknown) (unknown) Abdominal pain (units (unknown) date) unknown) (unknown) (no (unknown) (unknown) Accession Number: (units (unknown) date) [id number] ?? unknown) (unknown) (no (unknown) (unknown) Accession Number: (units (unknown) date) [id number] ?? unknown) (unknown) (no (unknown) (unknown) Acct:[id number] (units (unknown) date) unknown) (unknown) (no (unknown) (unknown) Acct:[id number] (units (unknown) date) unknown) (unknown) (no (unknown) (unknown) Acute pancreatitis (units (unknown) date) unknown) (unknown) (no (unknown) (unknown) Addendum (units (unkno wn) date) Documented By: unknown) (unknown) (no (unknown) (unknown) Addendum Signed (units (unknown) date) By: unknown) (unknown) (no (unknown) (unknown) Age/Sex: 86 / F (units (unknown) date) unknown) (unknown) (no (unknown) (unknown) Age/Sex: 86 / F (units (unknown) date) unknown) (unknown) (no (unknown) (unknown) Albumin (units (o wn) date) (3.5-5.0) g/dL unknown) (unknown) (no (unknown) (unknown) Albumin 4.1 (units ( unknown) date) (3.5-5.0) g/dL unknown) (unknown) (no (unknown) (unknown) Albumin/Globulin (units (unknown) date) Ratio (1.0-2.8) unknown) (unknown) (no (unknown) (unknown) Albumin/Globulin (units (unknown) date) Ratio 1.2 unknown) (1.0-2.8) (unknown) (no (unknown) (unknown) Alkaline (units (o wn) date) Phosphatase unknown) (38-126) U/L (unknown) (no (unknown) (unknown) Alkaline (units (o wn) date) Phosphatase 116 unknown) (38-126) U/L (unknown) (no (unknown) (unknown) Allergy/AdvReac (units (unknown) date) Type Severity unknown) Reaction Status Date / Time (unknown) (no (unknown) (unknown) Anesthesia (units (unk nown) date) unknown) (unknown) (no (unknown) (unknown) Anxiety (units (unkno wn) date) unknown) (unknown) (no (unknown) (unknown) Ao V2 VTI: 24.6 cm (units (unknown) date) ? unknown) SALO(V,D): 1.4 cm2 (unknown) (no (unknown) (unknown) Ao V2 max: 137.4 (units (unknown) date) cm/sec? unknown) LVOT Max Benjamin: 61.4 cm/sec (unknown) (no (unknown) (unknown) Ao V2 mean: 98.4 (units (unknown) date) cm/sec? LV unknown) V1 max P.5 mmHg (unknown) (no (unknown) (unknown) Ao max P.6 (units (unknown) date) mmHg? unknown) LV V1 VTI: 11.9 cm (unknown) (no (unknown) (unknown) Ao mean P.3 (units (unknown) date) mmHg ? unknown) SALO(I,D): 1.5 cm2 (unknown) (no (unknown) (unknown) Aortic Valve: ? (units (unknown) date) The aortic valve is unknown) mildly calcified. There is no (unknown) (no (unknown) (unknown) Apixaban (Apixaban (units (unknown) date) 5 Mg Tablet) 5 mg unknown) PO NOW ONE (unknown) (no (unknown) (unknown) Appropriate for (units (unknown) date) admission. Will unknown) need stress test. Review with Cardiology and (unknown) (no (unknown) (unknown) Approved by: (units (u nknown) date) Hemant Marvin, unknownShruti Winkler on 03/17/2022 at 23:01 ? 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 The left (units (unknown) date) atrium is severely unknown) dilated. The right atrium is severely (unknown) (no (unknown) (unknown) Atrial (units (unkno wn) date) fibrillation rate unknown) [address] elevation or depression (unknown) (no (unknown) (unknown) BACK: No flank (units (unknown) date) tenderness. unknown) (unknown) (no (unknown) (unknown) BUN (7-17) (units (u nknown) date) mg/dL unknown) (unknown) (no (unknown) (unknown) BUN 18 H (units (unk nown) date) (7-17) mg/dL unknown) (unknown) (no (unknown) (unknown) BUN/Creatinine (units (unknown) date) Ratio (6-) unknown) (unknown) (no (unknown) (unknown) BUN/Creatinine (units (unknown) date) Ratio 20.7 unknown) (-22) (unknown) (no (unknown) (unknown) Baso # (Auto) (units ( unknown) date) (0-100) /uL unknown) (unknown) (no (unknown) (unknown) Baso # (Auto) 0 (units (unknown) date) (0-100) /uL unknown) (unknown) (no (unknown) (unknown) Baso % (Auto) (units ( unknown) date) (0-2) % unknown) (unknown) (no (unknown) (unknown) Baso % (Auto) 0.7 (units (unknown) date) (0-2) % unknown) (unknown) (no (unknown) (unknown) Blood Pressure (units (unknown) date) 201/119 H 03/17/22 unknown) 21:05 (unknown) (no (unknown) (unknown) Blood Pressure (units (unknown) date) 201/119 H 191/91 H unknown) 202/98 H (unknown) (no (unknown) (unknown) Bones and chest (units (unknown) date) wall:? No unknown) suspicious bony lesions.? 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) unknown) (unknown) (no (unknown) (unknown) CARDIOVASCULAR: (units (unknown) date) Positive for chest unknown) pain, negative for palpitations (unknown) (no (unknown) (unknown) CARDIOVASCULAR: (units (unknown) date) Regular rate and unknown) rhythm without murmurs (unknown) (no (unknown) (unknown) CK-MB (CK-2) (units (u nknown) date) unknown) (unknown) (no (unknown) (unknown) CK-MB (CK-2) TNP (units (unknown) date) unknown) (unknown) (no (unknown) (unknown) CK-MB (CK-2) Rel (units (unknown) date) Index unknown) (unknown) (no (unknown) (unknown) CK-MB (CK-2) Rel (units (unknown) date) Index TNP unknown) (unknown) (no (unknown) (unknown) COMPARISON:? (units (u nknown) date) [facility], unknown) CR, XR CHEST 1V, 02/13/2022, 20:46. (unknown) (no (unknown) (unknown) COVID19 -Nasal (units (unknown) date) RAPID/Pre-Proc Stat unknown) (unknown) (no (unknown) (unknown) CT of the head did (units (unknown) date) report prior unknown) cortical and subcortical encephalomalacia on the (unknown) (no (unknown) (unknown) Calcified nodule (units (unknown) date) unknown) (unknown) (no (unknown) (unknown) Calcium (units (unkno wn) date) (8.4-10.2) mg/dL unknown) (unknown) (no (unknown) (unknown) Calcium 9.1 (units ( unknown) date) (8.4-10.2) mg/dL unknown) (unknown) (no (unknown) (unknown) Carbon Dioxide (units (unknown) date) (22-32) mmol/L unknown) (unknown) (no (unknown) (unknown) Carbon Dioxide (units (unknown) date) 27 (22-32) unknown) mmol/L (unknown) (no (unknown) (unknown) Jackie Prather (units (unknown) date) is an 86-year-old unknown) female with a history of chronic abdominal (unknown) (no (unknown) (unknown) 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 (unknown) (no (unknown) (unknown) Cervical cancer, (units (unknown) date) FIGO stage I unknown) (unknown) (no (unknown) (unknown) Chest x-ray: (units (u nknown) date) unknown) (unknown) (no (unknown) (unknown) Chief Complaint: (units (unknown) date) Chest Pain unknown) (unknown) (no (unknown) (unknown) Chief complaint: (units (unknown) date) Decreased LOC unknown) (unknown) (no (unknown) (unknown) Chloride (units (unkno wn) date) (98-107) mmol/L unknown) (unknown) (no (unknown) (unknown) Chloride 103 (units (unknown) date) (98-107) mmol/L unknown) (unknown) (no (unknown) (unknown) Cholelithiasis (units (unknown) date) unknown) (unknown) (no (unknown) (unknown) Chronic back pain (units (unknown) date) unknown) (unknown) (no (unknown) (unknown) Clinical (units (unkno wn) date) Impression: unknown) (unknown) (no (unknown) (unknown) Comparison is made (units (unknown) date) with the unknown) echocardiogram of 08/17/2019. 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) Stat (unknown) (no (unknown) (unknown) Consultation #1: (units (unknown) date) unknown) (unknown) (no (unknown) (unknown) Consultation #2: (units (unknown) date) unknown) (unknown) (no (unknown) (unknown) Consultations (units ( unknown) date) unknown) (unknown) (no (unknown) (unknown) Consults: (units (unkn own) date) unknown) (unknown) (no (unknown) (unknown) Course (units (unkno wn) date) unknown) (unknown) (no (unknown) (unknown) Course Narrative: (units (unknown) date) unknown) (unknown) (no (unknown) (unknown) Creatinine (units (unk nown) date) (0.52-1.04) mg/dL unknown) (unknown) (no (unknown) (unknown) Creatinine 0.87 (units (unknown) date) (0.52-1.04) mg/dL unknown) (unknown) (no (unknown) (unknown) : 1935 (units (unknown) date) Acct:[id number] unknown) (unknown) (no (unknown) (unknown) : 1935 (units (unknown) date) unknown) (unknown) (no (unknown) (unknown) Date of Service: (units (unknown) date) 02/17/22 unknown) (unknown) (no (unknown) (unknown) Date of Service: (units (unknown) date) 03/17/22 unknown) (unknown) (no (unknown) (unknown) Date of admission: (units (unknown) date) unknown) (unknown) (no (unknown) (unknown) Decision to Admit (units (unknown) date) Date: 03/18/22 unknown) (unknown) (no (unknown) (unknown) Decision to Admit (units (unknown) date) time: 02:42 unknown) (unknown) (no (unknown) (unknown) Departure (units (unkn own) date) unknown) (unknown) (no (unknown) (unknown) Developmental (units ( unknown) date) disorder unknown) (unknown) (no (unknown) (unknown) Diarrhea (units (unkno wn) date) unknown) (unknown) (no (unknown) (unknown) Dictated by: (units (u nknown) date) cally Barton M.D. on 03/17/2022 at 23:00 ? ? (unknown) (no (unknown) (unknown) Differential (units (u nknown) date) Diagnosis unknown) (unknown) (no (unknown) (unknown) Differential (units (un known) date) diagnosis: Likely unknown) stable angina, unstable angina pectoris, atypical (unknown) (no (unknown) (unknown) Discharge (units (unkn own) date) Assessment + Plan unknown) (unknown) (no (unknown) (unknown) Discharge Date: (units (unknown) date) 02/19/22 unknown) (unknown) (no (unknown) (unknown) Discharge Plan (units (unknown) date) unknown) (unknown) (no (unknown) (unknown) Discharge (units (unkn own) date) Providers unknown) (unknown) (no (unknown) (unknown) Discontinued (units (u nknown) date) Medications unknown) (unknown) (no (unknown) (unknown) Doppler (units (unkno wn) date) Measurements + unknown) Calculations (unknown) (no (unknown) (unknown) E/E' lat: 10.4 (units (unknown) date) unknown) (unknown) (no (unknown) (unknown) E/E' med: 16.6 ? ? (units (unknown) date) ? PA unknown) mean P.8 mmHg (unknown) (no (unknown) (unknown) E/e' average: 13.5 (units (unknown) date) unknown) (unknown) (no (unknown) (unknown) ECG Data (units (unkno wn) date) unknown) (unknown) (no (unknown) (unknown) EKG-12 Lead Stat (units (unknown) date) unknown) (unknown) (no (unknown) (unknown) ENT: Mucous (units (u nknown) date) membranes moist. unknown) (unknown) (no (unknown) (unknown) ER Physician: (units ( unknown) date) Jossue Salcido MD unknown) (unknown) (no (unknown) (unknown) EXTREMITIES: No (units (unknown) date) gross deformities. unknown) (unknown) (no (unknown) (unknown) EYES: Pupils equal (units (unknown) date) round No scleral unknown) icterus. (unknown) (no (unknown) (unknown) Eos # (Auto) (units (u nknown) date) (0-450) /uL unknown) (unknown) (no (unknown) (unknown) Eos # (Auto) 0 (units (unknown) date) (0-450) /uL unknown) (unknown) (no (unknown) (unknown) Eos % (Auto) (units (u nknown) date) (2-4) % unknown) (unknown) (no (unknown) (unknown) Eos % (Auto) 0.8 (units (unknown) date) L (2-4) % unknown) (unknown) (no (unknown) (unknown) Essential (units (unkn own) date) hypertension unknown) (09/28/12) (unknown) (no (unknown) (unknown) Estimated GFR > (units (unknown) date) 60 (>60) mL/min unknown) (unknown) (no (unknown) (unknown) Estimated GFR (units ( unknown) date) (>60) mL/min unknown) (unknown) (no (unknown) (unknown) Exam (units (unkno wn) date) unknown) (unknown) (no (unknown) (unknown) Exam Narrative: (units (unknown) date) unknown) (unknown) (no (unknown) (unknown) FINDINGS:? (units (unk nown) date) unknown) (unknown) (no (unknown) (unknown) FS: 18.5 %? (units (unknown) date) ? unknown) ? asc Aorta Diam: 3.2 cm (unknown) (no (unknown) (unknown) Failure to thrive (units (unknown) date) in adult unknown) (unknown) (no (unknown) (unknown) Fibrocystic breast (units (unknown) date) disease unknown) (unknown) (no (unknown) (unknown) GASTROINTESTINAL: (units (unknown) date) Abdomen soft, unknown) non-tender (unknown) (no (unknown) (unknown) GASTROINTESTINAL: (units (unknown) date) Denies nausea, unknown) vomiting, abdominal pain (unknown) (no (unknown) (unknown) GENERAL: Denies (units (unknown) date) chills, fatigue, unknown) malaise, fever, sweats. (unknown) (no (unknown) (unknown) GENERAL: in no (units (unknown) date) distress, not toxic unknown) not dyspneic (unknown) (no (unknown) (unknown) GERD (units (unkno wn) date) (gastroesophageal unknown) reflux disease) (unknown) (no (unknown) (unknown) : Denies (units (unk nown) date) dysuria, frequency, unknown) hematuria (unknown) (no (unknown) (unknown) Alyssa Robison MD (units (unknown) date) unknown) (unknown) (no (unknown) (unknown) General (units (unkno wn) date) unknown) (unknown) (no (unknown) (unknown) GenericComposite[?? (units (unknown) date) ? unknown) ? SALO indexed to BSA (cm^2/m^2): 0.90 ] (unknown) (no (unknown) (unknown) GenericComposite[L (units (unknown) date) V cage. unknown) diameter/BSA (cm/m^2): 2.9 ] (unknown) (no (unknown) (unknown) GenericComposite[L (units (unknown) date) V sys. diameter/BSA unknown) (cm/m^2): 2.4 ] (unknown) (no (unknown) (unknown) GenericComposite[P (units (unknown) date) lt Count unknown) (150-400) X10^3/uL ] (unknown) (no (unknown) (unknown) GenericComposite[P (units (unknown) date) lt Count 250 unknown) (150-400) X10^3/uL ] (unknown) (no (unknown) (unknown) GenericComposite[R (units (unknown) date) BC (4.0-5.2) unknown) X10^6/uL ] (unknown) (no (unknown) (unknown) GenericComposite[R (units (unknown) date) BC 4.32 unknown) (4.0-5.2) X10^6/uL ] (unknown) (no (unknown) (unknown) GenericComposite[W (units (unknown) date) BC (4.5-11.0) unknown) X10^3/uL ] (unknown) (no (unknown) (unknown) GenericComposite[W (units (unknown) date) BC 6.2 unknown) (4.5-11.0) X10^3/uL ] (unknown) (no (unknown) (unknown) Globulin (units (unkno wn) date) (1.7-4.1) g/dL unknown) (unknown) (no (unknown) (unknown) Globulin 3.5 (units (unknown) date) (1.7-4.1) g/dL unknown) (unknown) (no (unknown) (unknown) Glucose (80-110) (units (unknown) date) mg/dL unknown) (unknown) (no (unknown) (unknown) Glucose 99 (units (u nknown) date) (80-110) mg/dL unknown) (unknown) (no (unknown) (unknown) Great Vessels: ? (units (unknown) date) The aortic root is unknown) normal size. The dimensions of the (unknown) (no (unknown) (unknown) HEAD: (units (unkno wn) date) Normocephalic. unknown) (unknown) (no (unknown) (unknown) HEART Score (units (un known) date) unknown) (unknown) (no (unknown) (unknown) HEENT: Denies (units ( unknown) date) sinus pain, ear unknown) pain, sore throat (unknown) (no (unknown) (unknown) HPI - Chest Pain (units (unknown) date) unknown) (unknown) (no (unknown) (unknown) HPI narrative: (units (unknown) date) unknown) (unknown) (no (unknown) (unknown) Handicap Parking (units (unknown) date) #1 ea 01/12/19 unknown) (unknown) (no (unknown) (unknown) Soo Singh MD (units (unknown) date) unknown) (unknown) (no (unknown) (unknown) Hct (36-46) % (units (unknown) date) unknown) (unknown) (no (unknown) (unknown) Hct 39.2 (units (unkn own) date) (36-46) % unknown) (unknown) (no (unknown) (unknown) Heart Score Age: > (units (unknown) date) or = 65 years old unknown) (unknown) (no (unknown) (unknown) Heart Score EKG: (units (unknown) date) Non-Specific unknown) repolarization disturbance (unknown) (no (unknown) (unknown) Heart Score Total: (units (unknown) date) 7 unknown) (unknown) (no (unknown) (unknown) Heart Score (units (un known) date) history: Highly unknown) Suspicious (unknown) (no (unknown) (unknown) Heart Score risk (units (unknown) date) factors: > 3 risk unknown) factors or hx of atherosclerotic disease (unknown) (no (unknown) (unknown) Heart Score (units (un known) date) troponin: < or = to unknown) normal limit (unknown) (no (unknown) (unknown) Hgb (12.0-16.0) (units (unknown) date) g/dL unknown) (unknown) (no (unknown) (unknown) Hgb 13.0 (units (unkn own) date) (12.0-16.0) g/dL unknown) (unknown) (no (unknown) (unknown) History of Present (units (unknown) date) Illness unknown) (unknown) (no (unknown) (unknown) History of colon (units (unknown) date) polyps (09/28/12) unknown) (unknown) (no (unknown) (unknown) History of left (units (unknown) date) breast cancer unknown) (-2008) (unknown) (no (unknown) (unknown) Hyperlipidemia (units (unknown) date) unknown) 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 (units (u nknown) date) unknown) (unknown) (no (unknown) (unknown) INDICATIONS:? (units ( unknown) date) chest pain unknown) (unknown) (no (unknown) (unknown) IVSd: 1.1 cm (units (u nknown) date) unknown) (unknown) (no (unknown) (unknown) Imaging Data (units (u nknown) date) unknown) (unknown) (no (unknown) (unknown) Initial Vital (units ( unknown) date) Signs unknown) (unknown) (no (unknown) (unknown) Initial Vital (units ( unknown) date) Signs: unknown) (unknown) (no (unknown) (unknown) Interpretation (units (unknown) date) Summary unknown) (unknown) (no (unknown) (unknown) Interpretation: (units (unknown) date) unknown) (unknown) (no (unknown) (unknown) LA A2 area: 27.3 (units (unknown) date) cm2? unknown) ? RA long axis: 6.0 cm (unknown) (no (unknown) (unknown) LA A4 area: 30.0 (units (unknown) date) cm2? unknown) ? RA area: 23.9 cm2 (unknown) (no (unknown) (unknown) LA length (vol): (units (unknown) date) 6.6 cm ? unknown) ? RA vol: 80.6 ml (unknown) (no (unknown) (unknown) LA vol index: 63.5 (units (unknown) date) ml/m2? unknown) ? IVC diam: 1.4 cm (unknown) (no (unknown) (unknown) LA vol: 106.2 ml? (units (unknown) date) ? unknown) ? RA : 48.2 ml/m2 (unknown) (no (unknown) (unknown) LVIDd: 4.9 cm ? ? (units (unknown) date) ? unknown) ? LVOT diam: 2.0 cm (unknown) (no (unknown) (unknown) LVIDs: 4.0 cm ? ? (units (unknown) date) ? unknown) ? Ao root diam: 3.2 cm (unknown) (no (unknown) (unknown) LVPWd: 0.96 cm (units (unknown) date) unknown) (unknown) (no (unknown) (unknown) Lab Data (units (unkno wn) date) unknown) (unknown) (no (unknown) (unknown) Labs: (units (unkno wn) date) unknown) (unknown) (no (unknown) (unknown) Lat Peak E' Benjamin: (units (unknown) date) 9.3 cm/sec? ? ? PA unknown) pr(Accel): 44.7 mmHg (unknown) (no (unknown) (unknown) Left Ventricle: ? (units (unknown) date) The left ventricle unknown) is normal in size and wall thickness. The (unknown) (no (unknown) (unknown) Limitations: (units (u nknown) date) altered mental unknown) status (unknown) (no (unknown) (unknown) Lipase (23-300) (units (unknown) date) U/L unknown) (unknown) (no (unknown) (unknown) Lipase 45 (units (un known) date) (23-300) U/L unknown) (unknown) (no (unknown) (unknown) Lipase Stat (units (un known) date) unknown) (unknown) (no (unknown) (unknown) Loc: [facility] (units (unkno wn) date) unknown) (unknown) (no (unknown) (unknown) Loc: ED (units (unkno wn) date) unknown) (unknown) (no (unknown) (unknown) Lungs and pleura:? (units (unknown) date) There is unknown) hyperinflation of the lungs with flattening of the (unknown) (no (unknown) (unknown) Lymph # (Auto) (units (unknown) date) (1117-3178) /uL unknown) (unknown) (no (unknown) (unknown) Lymph # (Auto) (units (unknown) date) 1300 (0976-4254) unknown) /uL (unknown) (no (unknown) (unknown) Lymph % (Auto) (units (unknown) date) (25-40) % unknown) (unknown) (no (unknown) (unknown) Lymph % (Auto) (units (unknown) date) 20.2 L (25-40) unknown) % (unknown) (no (unknown) (unknown) [id number] (units (unk nown) date) unknown) (unknown) (no (unknown) (unknown) MCA territory and (units (unknown) date) suggested if there unknown) were concerned of an acute on chronic CVA (unknown) (no (unknown) (unknown) MCH (26-34) PG (units (unknown) date) unknown) (unknown) (no (unknown) (unknown) MCH 30.1 (units (unkn own) date) (26-34) PG unknown) (unknown) (no (unknown) (unknown) MCHC (30-36) % (units (unknown) date) unknown) (unknown) (no (unknown) (unknown) MCHC 33.2 (units (unk nown) date) (30-36) % unknown) (unknown) (no (unknown) (unknown) MCV (80-100) fL (units (unknown) date) unknown) (unknown) (no (unknown) (unknown) MCV 90.9 (units (unkn own) date) (80-100) fL unknown) (unknown) (no (unknown) (unknown) MDM - Chest Pain (units (unknown) date) unknown) (unknown) (no (unknown) (unknown) MDM Narrative (units ( unknown) date) unknown) (unknown) (no (unknown) (unknown) MMode/2D (units (unkno wn) date) Measurements + unknown) Calculations (unknown) (no (unknown) (unknown) MR#: [id number] (units (unknown) date) unknown) (unknown) (no (unknown) (unknown) MUSCULOSKELETAL: (units (unknown) date) denies muscle or unknown) bony pain (unknown) (no (unknown) (unknown) MV A max benjamin: 2.1 (units (unknown) date) cm/sec ? TR unknown) max P.8 mmHg (unknown) (no (unknown) (unknown) MV E max benjamin: 96.4 (units (unknown) date) cm/sec? TR unknown) max benjamin: 228.2 cm/sec (unknown) (no (unknown) (unknown) MV E/A: 46.5 ? ? ? (units (unknown) date) ? PA V2 unknown) max: 95.2 cm/sec (unknown) (no (unknown) (unknown) MV dec time: 0.23 (units (unknown) date) sec unknown) (unknown) (no (unknown) (unknown) Magnesium (units (unkn own) date) (1.6-2.3) mg/dL unknown) (unknown) (no (unknown) (unknown) Magnesium 2.0 (units (unknown) date) (1.6-2.3) mg/dL unknown) (unknown) (no (unknown) (unknown) Magnesium Stat (units (unknown) date) unknown) (unknown) (no (unknown) (unknown) Measles (units (unkno wn) date) unknown) (unknown) (no (unknown) (unknown) Med Peak E' Benjamin: (units (unknown) date) 5.8 cm/sec? ? ? PA unknown) V2 mean: 64.6 cm/sec (unknown) (no (unknown) (unknown) Mediastinum:? (units ( unknown) date) Mediastinal unknown) contours are unchanged.? 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 (units (unknown) date) There is moderate unknown) mitral annular calcification. The mitral (unknown) (no (unknown) (unknown) Mode of arrival: (units (unknown) date) EMS unknown) (unknown) (no (unknown) (unknown) [place] # (Auto) (units ( unknown) date) (0-900) /uL unknown) (unknown) (no (unknown) (unknown) [place] # (Auto) 400 (units (unknown) date) (0-900) /uL unknown) (unknown) (no (unknown) (unknown) [place] % (Auto) (units ( unknown) date) (3-14) % unknown) (unknown) (no (unknown) (unknown) [place] % (Auto) 7.2 (units (unknown) date) (3-14) % unknown) (unknown) (no (unknown) (unknown) NECK: Trachea (units ( unknown) date) midline. unknown) (unknown) (no (unknown) (unknown) NEURO: AOx4. (units (u nknown) date) unknown) (unknown) (no (unknown) (unknown) NEUROLOGIC: Denies (units (unknown) date) weakness, numbness unknown) (unknown) (no (unknown) (unknown) Narrative (units (unkn own) date) unknown) (unknown) (no (unknown) (unknown) Narrative: (units (unk nown) date) unknown) (unknown) (no (unknown) (unknown) Narrative: (units (unk nown) date) unknown) (unknown) (no (unknown) (unknown) Neut # (Auto) (units ( unknown) date) (2449-3202) /uL unknown) (unknown) (no (unknown) (unknown) Neut # (Auto) (units ( unknown) date) 4400 (9056-5846) unknown) /uL (unknown) (no (unknown) (unknown) Neut % (Auto) (units ( unknown) date) (50-75) % unknown) (unknown) (no (unknown) (unknown) Neut % (Auto) (units ( unknown) date) 71.1 (50-75) % unknown) (unknown) (no (unknown) (unknown) No Action (units (unkn own) date) unknown) (unknown) (no (unknown) (unknown) No chest pain (units ( unknown) date) here. Blood unknown) pressure 170/89. It has improved. Reviewed results (unknown) (no (unknown) (unknown) No new issues (units ( unknown) date) during course of unknown) stay (unknown) (no (unknown) (unknown) No recent illness (units (unknown) date) fever chills cough unknown) cold or congestion. No urinary complaints. (unknown) (no (unknown) (unknown) Ordered: (units (unkno wn) date) unknown) (unknown) (no (unknown) (unknown) Ordering Provider: (units (unknown) date) Jossue Salcido MD unknown) (unknown) (no (unknown) (unknown) Ordering Provider: (units (unknown) date) Eliana Barry unknown) (unknown) (no (unknown) (unknown) Orders (units (unkno wn) date) unknown) (unknown) (no (unknown) (unknown) Osteoarthritis of (units (unknown) date) knees, bilateral unknown) (unknown) (no (unknown) (unknown) Overall no (units (unk nown) date) significant change unknown) from prior exam. However, there the MR and TR (unknown) (no (unknown) (unknown) Oxygen Delivery (units (unknown) date) Method 03/17/22 unknown) 21:05 (unknown) (no (unknown) (unknown) Oxygen Delivery (units (unknown) date) Method Room Air unknown) (unknown) (no (unknown) (unknown) PROCEDURE:? XR (units (unknown) date) CHEST 1V unknown) (unknown) (no (unknown) (unknown) PSYCH: Not (units (un known) date) anxious, is unknown) cooperative (unknown) (no (unknown) (unknown) Patient (units (unkno wn) date) Disposition: unknown) Admitted as Observation (unknown) (no (unknown) (unknown) Patient (units (unkno wn) date) Disposition: Home unknown) (unknown) (no (unknown) (unknown) Patient History (units (unknown) date) unknown) (unknown) (no (unknown) (unknown) Patient brought (units (unknown) date) here by ambulance unknown) from home. Complaints of chest pain relief (unknown) (no (unknown) (unknown) Patient: (units (unkno wn) date) Jackie Prather unknown) MR#: (unknown) (no (unknown) (unknown) Patient: (units (unkno wn) date) Jackie Prather unknown) (unknown) (no (unknown) (unknown) Pericardium/ (units (u nknown) date) Pleura ? There is unknown) no pericardial effusion. 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 (units (unknown) date) The pulmonic valve unknown) is not well seen, but is grossly normal. (unknown) (no (unknown) (unknown) Pulse Oximetry 96 (units (unknown) date) 03/17/22 21:05 unknown) (unknown) (no (unknown) (unknown) Pulse Oximetry 96 (units (unknown) date) unknown) (unknown) (no (unknown) (unknown) Pulse Rate 118 H (units (unknown) date) 03/17/22 21:05 unknown) (unknown) (no (unknown) (unknown) Pulse Rate 118 H (units (unknown) date) 98 H 82 unknown) (unknown) (no (unknown) (unknown) RDW (11.6-14.8) (units (unknown) date) % unknown) (unknown) (no (unknown) (unknown) RDW 14.7 (units (unkn own) date) (11.6-14.8) % unknown) (unknown) (no (unknown) (unknown) RESPIRATORY: Clear (units (unknown) date) to auscultation. unknown) Breath sounds equal bilaterally. No wheezes, (unknown) (no (unknown) (unknown) RESPIRATORY: (units (u nknown) date) Denies dyspnea, unknown) cough (unknown) (no (unknown) (unknown) ROS Unobtainable: (units (unknown) date) All systems unknown) reviewed + are unremarkable except as noted in HPI (unknown) (no (unknown) (unknown) RVD1 (basal): 3.8 (units (unknown) date) cm unknown) (unknown) (no (unknown) (unknown) RVD2 (mid): 3.8 cm (units (unknown) date) unknown) (unknown) (no (unknown) (unknown) Reading (units (unkno wn) date) Physician:AM unknown) (unknown) (no (unknown) (unknown) Reevaluation #1: (units (unknown) date) unknown) (unknown) (no (unknown) (unknown) Reevaluation(s) (units (unknown) date) unknown) (unknown) (no (unknown) (unknown) Related Data (units (u nknown) date) unknown) (unknown) (no (unknown) (unknown) Respiratory Rate (units (unknown) date) 20 03/17/22 21:05 unknown) (unknown) (no (unknown) (unknown) Respiratory Rate (units (unknown) date) 20 unknown) (unknown) (no (unknown) (unknown) Result diagrams: (units (unknown) date) unknown) (unknown) (no (unknown) (unknown) Review of Systems (units (unknown) date) unknown) (unknown) (no (unknown) (unknown) Right Ventricle: ? (units (unknown) date) The right ventricle unknown) is normal size. Right ventricular (unknown) (no (unknown) (unknown) Right ventricular (units (unknown) date) systolic function unknown) is mild to moderately reduced. (unknown) (no (unknown) (unknown) SARS-CoV-2 (PCR) (units (unknown) date) Negative unknown) (Negative) (unknown) (no (unknown) (unknown) SARS-CoV-2 (PCR) (units (unknown) date) (Negative) unknown) (unknown) (no (unknown) (unknown) SKIN: Warm and (units (unknown) date) dry unknown) (unknown) (no (unknown) (unknown) SKIN: Denies rash, (units (unknown) date) skin lesions unknown) (unknown) (no (unknown) (unknown) SV(LVOT): 36.8 ml (units (unknown) date) unknown) (unknown) (no (unknown) (unknown) Scores (units (unkno wn) date) unknown) (unknown) (no (unknown) (unknown) Service: 02/16/22 (units (unknown) date) unknown) (unknown) (no (unknown) (unknown) She presented (units ( unknown) date) today with EMS and unknown) she was very confused and apparently covered (unknown) (no (unknown) (unknown) She told the nurse (units (unknown) date) that she lives in unknown) an apartment that is connected to the house (unknown) (no (unknown) (unknown) Signed By: (units (unk nown) date) unknown) (unknown) (no (unknown) (unknown) Smoking Status: (units (unknown) date) Never smoker unknown) (unknown) (no (unknown) (unknown) Smoking Status: (units (unknown) date) Never smoker unknown) (unknown) (no (unknown) (unknown) Social History (units (unknown) date) (Reviewed 03/17/22 unknown) @ 21:36 by Jossue Salcido MD) (unknown) (no (unknown) (unknown) Sodium (137-145) (units (unknown) date) mmol/L unknown) (unknown) (no (unknown) (unknown) Sodium 140 (units (u nknown) date) (137-145) mmol/L unknown) (unknown) (no (unknown) (unknown) Source: patient (units (unknown) date) unknown) (unknown) (no (unknown) (unknown) Speech and (units (unk n) date) language unknown) 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 (09/28/12) (unknown) (no (unknown) (unknown) Spoke with (units (unk n) date) Cardiology, unknown) Goldie, recommends admission and get a nuclear (unknown) (no (unknown) (unknown) Spoke with (units (unk n) date) hospitalist, unknown) Deidra, will admit (unknown) (no (unknown) (unknown) Stated Complaint: (units (unknown) date) Chest Pain, Welfare unknown) check (unknown) (no (unknown) (unknown) Status post (units (un known) date) arthroscopy unknown) (unknown) (no (unknown) (unknown) Status post biopsy (units (unknown) date) (-2014) unknown) (unknown) (no (unknown) (unknown) Status post breast (units (unknown) date) lumpectomy (-2008) unknown) (unknown) (no (unknown) (unknown) Status post (units (un known) date) cholecystectomy unknown) (unknown) (no (unknown) (unknown) 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 One (units (unknown) date) view of the chest unknown) was acquired.? (unknown) (no (unknown) (unknown) Temperature 97.7 (units (unknown) date) F 03/17/22 21:05 unknown) (unknown) (no (unknown) (unknown) Temperature 97.7 F (units (unknown) date) unknown) (unknown) (no (unknown) (unknown) The aortic valve (units (unknown) date) is mildly unknown) calcified. (unknown) (no (unknown) (unknown) The ejection (units (u nknown) date) fraction is unknown) estimated to be 35-40%. (unknown) (no (unknown) (unknown) The inferior and (units (unknown) date) inferposterior are unknown) relatively more hypokinetic, but overall (unknown) (no (unknown) (unknown) The left atrium is (units (unknown) date) severely dilated. unknown) (unknown) (no (unknown) (unknown) The left ventricle (units (unknown) date) is normal in size unknown) and wall thickness. (unknown) (no (unknown) (unknown) The pulmonary (units ( unknown) date) hypertension is unknown) improved from prior exam. (unknown) (no (unknown) (unknown) The right atrium (units (unknown) date) is severely unknown) dilated. (unknown) (no (unknown) (unknown) The right (units (unkn own) date) ventricular unknown) systolic pressure is estimated to be at least 29 mmHg (unknown) (no (unknown) (unknown) There is mild (units ( unknown) date) mitral unknown) regurgitation. (unknown) (no (unknown) (unknown) There is mild to (units (unknown) date) moderate global unknown) hypokinesis of the left ventricle. (unknown) (no (unknown) (unknown) There is mild (units ( unknown) date) tricuspid unknown) regurgitation. The right ventricular systolic pressure (unknown) (no (unknown) (unknown) There is moderate (units (unknown) date) mitral annular unknown) calcification. (unknown) (no (unknown) (unknown) There is no (units (un known) date) pulmonic valvular unknown) regurgitation. (unknown) (no (unknown) (unknown) Time Seen by (units (u nknown) date) Provider: 03/17/22 unknown) 21:24 (unknown) (no (unknown) (unknown) Time: 02:33 (units (un known) date) unknown) (unknown) (no (unknown) (unknown) Time: 02:43 (units (un known) date) unknown) (unknown) (no (unknown) (unknown) Time: 02:46 (units (un known) date) unknown) (unknown) (no (unknown) (unknown) Total Bilirubin (units (unknown) date) (0.2-1.3) mg/dL unknown) (unknown) (no (unknown) (unknown) Total Bilirubin (units (unknown) date) 0.9 (0.2-1.3) unknown) mg/dL (unknown) (no (unknown) (unknown) Total Creatine (units (unknown) date) Kinase < 20 L unknown) (30-135) U/L (unknown) (no (unknown) (unknown) Total Creatine (units (unknown) date) Kinase (30-135) unknown) U/L (unknown) (no (unknown) (unknown) Total Protein (units ( unknown) date) (6.3-8.2) g/dL unknown) (unknown) (no (unknown) (unknown) Total Protein (units ( unknown) date) 7.6 (6.3-8.2) unknown) g/dL (unknown) (no (unknown) (unknown) Tricuspid Valve: ? (units (unknown) date) The tricuspid valve unknown) is normal in structure and function. (unknown) (no (unknown) (unknown) Troponin + CK (units ( unknown) date) Cardiac Panel Stat unknown) (unknown) (no (unknown) (unknown) Troponin I < (units (unknown) date) 0.012 unknown) (0.01-0.034) ng/mL (unknown) (no (unknown) (unknown) Troponin I < (units ( unknown) date) 0.012 (0.01-0.034) unknown) ng/mL (unknown) (no (unknown) (unknown) Troponin I Stat (units (unknown) date) unknown) (unknown) (no (unknown) (unknown) Vital Signs (units (un known) date) unknown) (unknown) (no (unknown) (unknown) Vital signs: (units (u nknown) date) unknown) (unknown) (no (unknown) (unknown) Written by (units (unk nown) date) admitting provider. unknown) (unknown) (no (unknown) (unknown) XR chest 1V Stat (units (unknown) date) unknown) (unknown) (no (unknown) (unknown) [Embedded Image (units (unknown) date) Not Available] unknown) (unknown) (no (unknown) (unknown) (units (unknown) date) unknown) ___ (unknown) (no (unknown) (unknown) acute (units (unkno wn) date) diverticulitis.? unknown) WBC is unremarkable, she has a creatinine bump of 1.06 (unknown) (no (unknown) (unknown) alcohol intake (units (unknown) date) frequency: unknown) holidays/special occasions only (unknown) (no (unknown) (unknown) alcohol intake: (units (unknown) date) never unknown) (unknown) (no (unknown) (unknown) and Doppler was (units (unknown) date) performed. The unknown) study quality was technically adequate. (unknown) (no (unknown) (unknown) and apparently that (units (unknown) date) is been an issue.? unknown) Review of case management note written on (unknown) (no (unknown) (unknown) and left axilla. (units (unknown) date) unknown) (unknown) (no (unknown) (unknown) apixaban 5 mg (units ( unknown) date) tablet 5 mg PO BID unknown) #180 tabs 03/11/21 (unknown) (no (unknown) (unknown) appear (units (unkno wn) date) unknown) (unknown) (no (unknown) (unknown) are now mild (units (u nknown) date) instead of unknown) moderate. (unknown) (no (unknown) (unknown) ascending aorta (units (unknown) date) are normal. The IVC unknown) is of normal diameter and collapses less (unknown) (no (unknown) (unknown) atherosclerotic (units (unknown) date) plaque protecting unknown) meds. (unknown) (no (unknown) (unknown) atorvastatin 40 mg (units (unknown) date) tablet 40 mg PO unknown) BEDTIME #90 tabs 12/11/21 (unknown) (no (unknown) (unknown) atrial (units (unkno wn) date) fibrillation with unknown) heart rates between 54-75 bpm during the exam. (unknown) (no (unknown) (unknown) based on an (units (un known) date) estimated right unknown) atrial pressure of 8 mm Hg. (unknown) (no (unknown) (unknown) because supposedly (units (unknown) date) her son found her unknown) passed out on the ?marcell potty'.? Patient (unknown) (no (unknown) (unknown) butter cookies and (units (unknown) date) then has maybe a unknown) hot meal, usually hamburger.? (unknown) (no (unknown) (unknown) by cab.? She was (units (unknown) date) apparently seen in unknown) the emergency department on February 14 and at (unknown) (no (unknown) (unknown) chest abdomen and (units (unknown) date) pelvis reported a unknown) small right upper lobe 0.4 cm pulmonary (unknown) (no (unknown) (unknown) class 2 (06/05/11) (units (unknown) date) unknown) (unknown) (no (unknown) (unknown) contaminated and a (units (unknown) date) culture was not unknown) able to be grown or specified. (unknown) (no (unknown) (unknown) daily for rate (units (unknown) date) control. unknown) (unknown) (no (unknown) (unknown) diclofenac sodium (units (unknown) date) 1 % topical gel 2 g unknown) topical QID #100 grams 02/03/22 (unknown) (no (unknown) (unknown) dilated. There is (units (unknown) date) no Doppler evidence unknown) for an interatrial shunt. (unknown) (no (unknown) (unknown) discharge note (units (unknown) date) below. Denies any unknown) recent illness. No fall or injury. She (unknown) (no (unknown) (unknown) distention in the (units (unknown) date) rectum likely unknown) impaction and colonic diverticulosis without (unknown) (no (unknown) (unknown) effusion. (units (unkn own) date) unknown) (unknown) (no (unknown) (unknown) effusions or (units (u nknown) date) unknown) (unknown) (no (unknown) (unknown) ejection fraction (units (unknown) date) is estimated to be unknown) 35-40%. There is mild to moderate global (unknown) (no (unknown) (unknown) enlarged. (units (unkn own) date) unknown) (unknown) (no (unknown) (unknown) function could not (units (unknown) date) be accurately unknown) assessed due to atrial fibrillation. 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 No acute consolidation.? No pleural (unknown) (no (unknown) (unknown) hemodynamically (units (unknown) date) significant unknown) valvular aortic stenosis. There is trace aortic (unknown) (no (unknown) (unknown) hospitalist. (units (u nknown) date) Agree for admit. unknown) (unknown) (no (unknown) (unknown) household members: (units (unknown) date) children unknown) (unknown) (no (unknown) (unknown) hydrocodone 5 (units ( unknown) date) mg-acetaminophen unknown) 325 1 tab PO BID PRN pain #20 tabs 03/02/22 (unknown) (no (unknown) (unknown) hypokinesis of the (units (unknown) date) left ventricle. The unknown) inferior and inferposterior are (unknown) (no (unknown) (unknown) in the process of (units (unknown) date) being evicted from unknown) an apartment however she has tenant rights (unknown) (no (unknown) (unknown) inhalational (units (u nknown) date) spacing device #1 unknown) ea 11/01/19 (unknown) (no (unknown) (unknown) is estimated to be (units (unknown) date) at least 29 mmHg unknown) based on an estimated right atrial (unknown) (no (unknown) (unknown) last month for (units (unknown) date) multiple problems. unknown) Did have echocardiogram done. Please see (unknown) (no (unknown) (unknown) likely adversely (units (unknown) date) affecting all of unknown) the patient's other comorbidities. (unknown) (no (unknown) (unknown) lisinopril AdvReac (units (unknown) date) Mild Cough Verified unknown) 02/16/22 18:19 (unknown) (no (unknown) (unknown) lives with her son (units (unknown) date) and was recently unknown) homeless.? She was apparently confused, (unknown) (no (unknown) (unknown) losartan 50 mg (units (unknown) date) tablet 50 mg PO unknown) DAILY #90 tabs 02/09/22 (unknown) (no (unknown) (unknown) mediastinum (units (un known) date) unknown) (unknown) (no (unknown) (unknown) metoprolol (units (unk nown) date) tartrate 25 mg unknown) tablet 12.5 mg PO DAILY #45 tabs 12/11/21 (unknown) (no (unknown) (unknown) mg tablet (units (unkn own) date) unknown) (unknown) (no (unknown) (unknown) multiple times (units (unknown) date) when the son was unknown) contacted he was hard to be connected to and (unknown) (no (unknown) (unknown) nitroglycerin 0.4 (units (unknown) date) mg sublingual See unknown) Rx Instructions sublingual PRN 10/26/21 (unknown) (no (unknown) (unknown) nodule with (units (un known) date) recommendations for unknown) follow-up in 12 months and moderate stool (unknown) (no (unknown) (unknown) pain, CAD, (units (unk nown) date) anxiety, atrial unknown) fibrillation on anticoagulation, history of (unknown) (no (unknown) (unknown) pantoprazole 40 mg (units (unknown) date) tablet,delayed 40 unknown) mg PO DAILY #90 tabs 02/09/22 (unknown) (no (unknown) (unknown) patient declined (units (unknown) date) SNF placement, and unknown) will receive home health aide on discharge. (unknown) (no (unknown) (unknown) please add the (units (unknown) date) following: severe, unknown) acute protein-calorie malnutrition. This is (unknown) (no (unknown) (unknown) pneumothorax.? (units (unknown) date) unknown) (unknown) (no (unknown) (unknown) pressure of 8 mm (units (unknown) date) Hg. unknown) (unknown) (no (unknown) (unknown) regurgitation. (units (unknown) date) unknown) (unknown) (no (unknown) (unknown) relatively more (units (unknown) date) hypokinetic, but unknown) overall unchanged from prior exam. Diastolic (unknown) (no (unknown) (unknown) release (units (unkno wn) date) unknown) (unknown) (no (unknown) (unknown) relief. (units (unkno wn) date) unknown) (unknown) (no (unknown) (unknown) right MCA infarct (units (unknown) date) unknown) (unknown) (no (unknown) (unknown) right parietal and (units (unknown) date) temporal lobes unknown) consistent with a prior infarct in the right (unknown) (no (unknown) (unknown) sertraline (units (unk nown) date) [SERTRALINE] unknown) Allergy Mild FEELS Verified 02/16/22 18:19 (unknown) (no (unknown) (unknown) states she is in a (units (unknown) date) better living unknown) condition since being discharged last month. (unknown) (no (unknown) (unknown) states she only (units (unknown) date) eats 2 times a day unknown) consisting mostly of putting and peanut (unknown) (no (unknown) (unknown) stress test (units (un known) date) unknown) (unknown) (no (unknown) (unknown) systolic function (units (unknown) date) is mild to unknown) moderately reduced. (unknown) (no (unknown) (unknown) tablet (Nitrostat) (units (unknown) date) PRN Chest Pain #30 unknown) tabs (unknown) (no (unknown) (unknown) than 50% with a (units (unknown) date) sniff. This unknown) suggests a right atrial pressure of 8 mm Hg. 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 History of (units (unknown) date) coronary disease unknown) with bypass surgery. Recently admitted here (unknown) (no (unknown) (unknown) to have the (units (un known) date) patient undergo MRI unknown) imaging to further delineate this.? CT of the (unknown) (no (unknown) (unknown) trace leukocyte (units (unknown) date) esterase and will unknown) be cultured.? COVID-19 PCR is negative. (unknown) (no (unknown) (unknown) unchanged from (units (unknown) date) prior exam. unknown) (unknown) (no (unknown) (unknown) unkempt and (units (un known) date) appeared to be not unknown) cared for [facility].? It appears that (unknown) (no (unknown) (unknown) unremarkable.? (units (unknown) date) unknown) (unknown) (no (unknown) (unknown) valve leaflets are (units (unknown) date) mildly calcified. unknown) There is mild mitral regurgitation. (unknown) (no (unknown) (unknown) when they were (units (unknown) date) able to reach him unknown) he would request that the patient be sent home (unknown) (no (unknown) (unknown) with an EGFR of (units (unknown) date) 52, alk-phos unknown) elevated at 146 UA is positive for ketones and (unknown) (no (unknown) (unknown) with home (units (unkn own) date) nitroglycerin. To unknown) calm 81 mg aspirin. Denies any chest pain at this (unknown) (no (unknown) (unknown) with patient. (units ( unknown) date) Agrees for admit. unknown) (unknown) (no (unknown) (unknown) with stool and (units (unknown) date) urine. unknown) Result panel 13 (unknown) (no (unknown) (unknown) (no value) (units (unk nown) date) unknown) (unknown) (no (unknown) (unknown) [address] [place] [address] (units (unknown) date) unknown) (unknown) (no (unknown) (unknown) [place] [address] (unit s (unknown) date) unknown) (unknown) (no (unknown) (unknown) [facility] (units (unknown) date) unknown) (unknown) (no (unknown) (unknown) Nuclear [facility] (units (unknown) date) Report unknown) (unknown) (no (unknown) (unknown) Signed (units (unkno wn) date) unknown) (unknown) (no (unknown) (unknown) (no value) (units (unk nown) date) unknown) (unknown) (no (unknown) (unknown) 03/18/22 (units (unkno wn) date) unknown) (unknown) (no (unknown) (unknown) A pharmacologic (units (unknown) date) stress test was unknown) performed under the supervision of an attending (unknown) (no (unknown) (unknown) Approved by: Sera (unit s (unknown) date) Eric English on unknown) 03/18/2022 at 16:22 (unknown) (no (unknown) (unknown) CARDIAC STRESS: (units (unknown) date) unknown) (unknown) (no (unknown) (unknown) COMPARISON: None. (units (unknown) date) unknown) (unknown) (no (unknown) (unknown) Dictated by: Sera (unit s (unknown) date) Erci English on unknown) 03/18/2022 at 15:46 (unknown) (no (unknown) (unknown) EKG: No diagnostic (unit s (unknown) date) changes of ischemia; unknown) no ectopy. (unknown) (no (unknown) (unknown) FINDINGS: (units (unkn own) date) unknown) (unknown) (no (unknown) (unknown) Hemodynamic data: (units (unknown) date) There is normal blood unknown) pressure and heart rate response to (unknown) (no (unknown) (unknown) IMPRESSION: (units (un known) date) unknown) (unknown) (no (unknown) (unknown) INDICATIONS: chest (unit s (unknown) date) pain unknown) (unknown) (no (unknown) (unknown) Left ventricle (units (unknown) date) function: Gated unknown) images demonstrate normal left ventricular wall (unknown) (no (unknown) (unknown) [id number] (units (unk nown) date) unknown) (unknown) (no (unknown) (unknown) Myocardial (units (unk nown) date) perfusion: There is unknown) a medium size, mild intensity, mid to distal (unknown) (no (unknown) (unknown) No definite (units (un known) date) ischemia. unknown) (unknown) (no (unknown) (unknown) No transient (units (u nknown) date) ischemic dilation; unknown) TID is 0.91 (normal less than 1.3). Left (unknown) (no (unknown) (unknown) RADIOPHARMACEUTICAL: (uni ts (unknown) date) 11.6 mCi Tc-99m unknown) tetrafosmin IV at rest and 27.3 mCi Tc- (unknown) (no (unknown) (unknown) Raw data: There is (unit s (unknown) date) good myocardial unknown) uptake of radiotracer. No significant (unknown) (no (unknown) (unknown) Rest and (units (unkno wn) date) pharmacological unknown) stress myocardial perfusion SPECT with gated imaging (unknown) (no (unknown) (unknown) SPECT images were (units (unknown) date) obtained. SPECT unknown) myocardial perfusion images were displayed (unknown) (no (unknown) (unknown) Symptoms: The (units (unknown) date) patient denied unknown) anginal chest pain. (unknown) (no (unknown) (unknown) TECHNIQUE: (units (unk nown) date) Radiopharmaceutical unknown) was injected at peak stress test, and also at (unknown) (no (unknown) (unknown) There is a medium (units (unknown) date) size, mild intensity, unknown) mid to distal fixed anterior and apical (unknown) (no (unknown) (unknown) anterior and apical (unit s (unknown) date) wall defect. unknown) (unknown) (no (unknown) (unknown) artifacts. (units (unk nown) date) Yhbi-rj-eyoge ratio unknown) is 0.22 (normal is less than 0.38 for (unknown) (no (unknown) (unknown) attenuation. (units (u nknown) date) unknown) (unknown) (no (unknown) (unknown) axis, horizontal (units (unknown) date) long axis, and unknown) vertical long axis views. Gated images were (unknown) (no (unknown) (unknown) defect. While there (uni ts (unknown) date) is global unknown) hypokinesis, the contractility does not appear (unknown) (no (unknown) (unknown) ejection fraction (units (unknown) date) unknown) (unknown) (no (unknown) (unknown) normal range is (units (unknown) date) above 45%. unknown) (unknown) (no (unknown) (unknown) pharmacologic (units ( unknown) date) stress. unknown) (unknown) (no (unknown) (unknown) resting end (units (un known) date) diastolic volume is unknown) 125 mL. Left ventricle stress ejection (unknown) (no (unknown) (unknown) tetrafosmin IV at (units (unknown) date) peak effect of unknown) pharmacological stress. Obj-eei-xytziqao was (unknown) (no (unknown) (unknown) the areas of the (units (unknown) date) perfusion defect unknown) making this most likely consistent with (unknown) (no (unknown) (unknown) thickening. No (units (unknown) date) segmental wall motion unknown) abnormalities, however global hypokinesis (unknown) (no (unknown) (unknown) tracer). (units (unkno wn) date) unknown) (unknown) (no (unknown) (unknown) using AutoQUANT (units (unknown) date) software. unknown) (unknown) (no (unknown) (unknown) using an infusion of (uni ts (unknown) date) Regadenoson. unknown) (unknown) (no (unknown) (unknown) 99m (units (unkno wn) date) unknown) (unknown) (no (unknown) (unknown) Accession Number: (units (unknown) date) [id number] unknown) (unknown) (no (unknown) (unknown) Age/Sex: 86 / F (units (unknown) date) Date of Service: unknown) (unknown) (no (unknown) (unknown) : 1935 (units (unknown) date) Acct:[id number] unknown) (unknown) (no (unknown) (unknown) Loc: 214-1 (units (unknown) date) unknown) (unknown) (no (unknown) (unknown) Ordering Provider: (units (unknown) date) Eliana Barry unknown) (unknown) (no (unknown) (unknown) PROCEDURE: NM GIANCARLO (units (unknown) date) PERF SPECT R+S PHARM unknown) (unknown) (no (unknown) (unknown) Patient: (units (unkno wn) date) Jackie Prather S unknown) MR#: (unknown) (no (unknown) (unknown) Procedure: NM giancarlo (units (unknown) date) perf SPECT R+S pharm unknown) (unknown) (no (unknown) (unknown) and (units (unkno wn) date) unknown) (unknown) (no (unknown) (unknown) breast (units (unkno wn) date) unknown) (unknown) (no (unknown) (unknown) fixed (units (unkno wn) date) unknown) (unknown) (no (unknown) (unknown) fraction is 47%; (units (unknown) date) unknown) (unknown) (no (unknown) (unknown) in short (units (unkno wn) date) unknown) (unknown) (no (unknown) (unknown) motion (units (unkno wn) date) unknown) (unknown) (no (unknown) (unknown) noted. (units (unkno wn) date) unknown) (unknown) (no (unknown) (unknown) performed. (units (unk nown) date) unknown) (unknown) (no (unknown) (unknown) rest. (units (unkno wn) date) unknown) (unknown) (no (unknown) (unknown) reviewed (units (unkno wn) date) unknown) (unknown) (no (unknown) (unknown) staff, (units (unkno wn) date) unknown) (unknown) (no (unknown) (unknown) tetrafosmin (units (un known) date) unknown) (unknown) (no (unknown) (unknown) ventricle (units (unkn own) date) unknown) (unknown) (no (unknown) (unknown) wall (units (unkno wn) date) unknown) (unknown) (no (unknown) (unknown) worse in (units (unkno wn) date) unknown) Result panel 14 (unknown) (no date) (unknown) (unknown) * (units (unkn own) unknown) (unknown) (no date) (unknown) (unknown) 0-1/LPF (units (unkn own) unknown) (unknown) (no date) (unknown) (unknown) 1-5 /HPF (units (unkn own) unknown) (unknown) (no date) (unknown) (unknown) 1-5/HPF (units (unkn own) unknown) (unknown) (no date) (unknown) (unknown) None Seen (units (unk nown) unknown) (unknown) (no date) (unknown) (unknown) None Seen (units (unk nown) unknown) Result panel 15 (unknown) (no (unknown) (unknown) (no value) (units (unk nown) date) unknown) (unknown) (no (unknown) (unknown) (no value) (units (unk nown) date) unknown) (unknown) (no (unknown) (unknown) Date of Service: (units (unknown) date) 03/18/22 unknown) (unknown) (no (unknown) (unknown) (no value) (units (unk nown) date) unknown) (unknown) (no (unknown) (unknown) 'DRUGGED' (units (unkn own) date) unknown) (unknown) (no (unknown) (unknown) - (units (unkno wn) date) unknown) (unknown) (no (unknown) (unknown) 03/17/22 20:07 (units (unknown) date) unknown) (unknown) (no (unknown) (unknown) Allergies (units (unkn own) date) unknown) (unknown) (no (unknown) (unknown) History + Physical (units (unknown) date) Report unknown) (unknown) (no (unknown) (unknown) Home Medications (units (unknown) date) unknown) (unknown) (no (unknown) (unknown) [facility] (units (unknown) date) [address] [place] [address] unknown) [place] [address] (unknown) (no (unknown) (unknown) Laboratory Results (units (unknown) date) - last 24 hr unknown) (unknown) (no (unknown) (unknown) (no value) (units (unk nown) date) unknown) (unknown) (no (unknown) (unknown) 01:30 (units (unkno wn) date) unknown) (unknown) (no (unknown) (unknown) 03/17/22 03/17/22 (units (unknown) date) 03/17/22 unknown) (unknown) (no (unknown) (unknown) 03/18/22 (units (unkno wn) date) unknown) (unknown) (no (unknown) (unknown) 20:07 20:07 22:12 (units (unknown) date) unknown) (unknown) (no (unknown) (unknown) 03/17/22 (units (unkno wn) date) unknown) (unknown) (no (unknown) (unknown) Medication (units (unk nown) date) Instructions unknown) Recorded Confirmed Type (unknown) (no (unknown) (unknown) (12/05/17) (units (unk nown) date) unknown) (unknown) (no (unknown) (unknown) (Aerochamber MV (units (unknown) date) spacer) unknown) (unknown) (no (unknown) (unknown) (Neurontin) (units (un known) date) unknown) (unknown) (no (unknown) (unknown) (past 8 hours): (units (unknown) date) unknown) (unknown) (no (unknown) (unknown) 00:06 03/18/22 (units (unknown) date) unknown) (unknown) (no (unknown) (unknown) 01:00 (units (unkno wn) date) unknown) (unknown) (no (unknown) (unknown) 02/17/22 Rx (units (un known) date) unknown) (unknown) (no (unknown) (unknown) 21:05 03/18/22 (units (unknown) date) unknown) (unknown) (no (unknown) (unknown) 86-year-old female (units (unknown) date) with a history of unknown) atrial fibrillation anticoagulated on (unknown) (no (unknown) (unknown) ALT (units (unkno wn) date) unknown) (unknown) (no (unknown) (unknown) ALT 10 (units (unkno wn) date) unknown) (unknown) (no (unknown) (unknown) AST (units (unkno wn) date) unknown) (unknown) (no (unknown) (unknown) AST 26 (units (unkno wn) date) unknown) (unknown) (no (unknown) (unknown) Abdominal pain (units (unknown) date) unknown) (unknown) (no (unknown) (unknown) Acute pancreatitis (units (unknown) date) unknown) (unknown) (no (unknown) (unknown) Age/Sex: 86 / F (units (unknown) date) unknown) (unknown) (no (unknown) (unknown) Albumin (units (unkno wn) date) unknown) (unknown) (no (unknown) (unknown) Albumin 4.1 (units ( unknown) date) unknown) (unknown) (no (unknown) (unknown) Albumin/Globulin (units (unknown) date) Ratio unknown) (unknown) (no (unknown) (unknown) Albumin/Globulin (units (unknown) date) Ratio 1.2 unknown) (unknown) (no (unknown) (unknown) Alkaline (units (unkno wn) date) Phosphatase unknown) (unknown) (no (unknown) (unknown) Alkaline (units (unkno wn) date) Phosphatase 116 unknown) (unknown) (no (unknown) (unknown) Allergy/AdvReac (units (unknown) date) Type Severity unknown) Reaction Status Date / Time (unknown) (no (unknown) (unknown) Anesthesia (units (unk nown) date) unknown) (unknown) (no (unknown) (unknown) Anticoagulated (units (unknown) date) unknown) (unknown) (no (unknown) (unknown) Anxiety (units (unkno wn) date) unknown) 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 () (unknown) (no (unknown) (unknown) 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 (09/28/12) (unknown) (no (unknown) (unknown) Assessment + Plan (units (unknown) date) unknown) (unknown) (no (unknown) (unknown) Asthma (units (unkno wn) date) unknown) (unknown) (no (unknown) (unknown) BUN (units (unkno wn) date) unknown) (unknown) (no (unknown) (unknown) BUN 18 H (units (unk n) date) unknown) (unknown) (no (unknown) (unknown) BUN/Creatinine (units (unknown) date) Ratio unknown) (unknown) (no (unknown) (unknown) BUN/Creatinine (units (unknown) date) Ratio 20.7 unknown) (unknown) (no (unknown) (unknown) Baso # (Auto) (units ( unknown) date) unknown) (unknown) (no (unknown) (unknown) Baso # (Auto) 0 (units (unknown) date) unknown) (unknown) (no (unknown) (unknown) Baso % (Auto) (units ( unknown) date) unknown) (unknown) (no (unknown) (unknown) Baso % (Auto) 0.7 (units (unknown) date) unknown) (unknown) (no (unknown) (unknown) Been Physically (units (unknown) date) Hurt or No unknown) 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) unknown) (unknown) (no (unknown) (unknown) CK-MB (CK-2) (units (u nknown) date) unknown) (unknown) (no (unknown) (unknown) CK-MB (CK-2) TNP (units (unknown) date) unknown) (unknown) (no (unknown) (unknown) CK-MB (CK-2) Rel (units (unknown) date) Index unknown) (unknown) (no (unknown) (unknown) CK-MB (CK-2) Rel (units (unknown) date) Index TNP unknown) (unknown) (no (unknown) (unknown) Calcified nodule (units (unknown) date) unknown) (unknown) (no (unknown) (unknown) Calcium (units (unkno wn) date) unknown) (unknown) (no (unknown) (unknown) Calcium 9.1 (units ( unknown) date) unknown) (unknown) (no (unknown) (unknown) Carbon Dioxide (units (unknown) date) unknown) (unknown) (no (unknown) (unknown) Carbon Dioxide (units (unknown) date) 27 unknown) (unknown) (no (unknown) (unknown) 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 (unknown) (no (unknown) (unknown) Cervical cancer, (units (unknown) date) FIGO stage I unknown) (unknown) (no (unknown) (unknown) Chief complaint: (units (unknown) date) Chest Pain unknown) (unknown) (no (unknown) (unknown) Chloride (units (unkno wn) date) unknown) (unknown) (no (unknown) (unknown) Chloride 103 (units (unknown) date) unknown) (unknown) (no (unknown) (unknown) Cholelithiasis (units (unknown) date) unknown) (unknown) (no (unknown) (unknown) Chronic back pain (units (unknown) date) unknown) (unknown) (no (unknown) (unknown) Creatinine (units (unk nown) date) unknown) (unknown) (no (unknown) (unknown) Creatinine 0.87 (units (unknown) date) unknown) (unknown) (no (unknown) (unknown) Critical Care (units ( unknown) date) time: unknown) (unknown) (no (unknown) (unknown) : 1935 (units (unknown) date) Acct:[id number] unknown) (unknown) (no (unknown) (unknown) Developmental (units ( unknown) date) disorder unknown) (unknown) (no (unknown) (unknown) Diarrhea (units (unkno wn) date) unknown) (unknown) (no (unknown) (unknown) Environment (units (un known) date) unknown) (unknown) (no (unknown) (unknown) Eos # (Auto) (units (u nknown) date) unknown) (unknown) (no (unknown) (unknown) Eos # (Auto) 0 (units (unknown) date) unknown) (unknown) (no (unknown) (unknown) Eos % (Auto) (units (u nknown) date) unknown) (unknown) (no (unknown) (unknown) Eos % (Auto) 0.8 (units (unknown) date) L unknown) (unknown) (no (unknown) (unknown) Essential (units (unkn own) date) hypertension unknown) (09/28/12) (unknown) (no (unknown) (unknown) Estimated GFR (units ( unknown) date) unknown) (unknown) (no (unknown) (unknown) Estimated GFR > (units (unknown) date) 60 unknown) (unknown) (no (unknown) (unknown) Exam (units (unkno wn) date) unknown) (unknown) (no (unknown) (unknown) Failure to thrive (units (unknown) date) in adult unknown) (unknown) (no (unknown) (unknown) Family + Social (units (unknown) date) History unknown) (unknown) (no (unknown) (unknown) Feels Safe in (units ( unknown) date) Current Yes unknown) (unknown) (no (unknown) (unknown) Fibrocystic breast (units (unknown) date) disease unknown) (unknown) (no (unknown) (unknown) GERD (units (unkno wn) date) (gastroesophageal unknown) reflux disease) (unknown) (no (unknown) (unknown) Globulin (units (unkno wn) date) unknown) (unknown) (no (unknown) (unknown) Globulin 3.5 (units (unknown) date) unknown) (unknown) (no (unknown) (unknown) Glucose (units (unkno wn) date) unknown) (unknown) (no (unknown) (unknown) Glucose 99 (units (u nknown) date) unknown) (unknown) (no (unknown) (unknown) Handicap Parking (units (unknown) date) #1 ea 01/12/19 unknown) 02/17/22 Rx (unknown) (no (unknown) (unknown) Hct (units (unkno wn) date) unknown) (unknown) (no (unknown) (unknown) Hct 39.2 (units (unkn own) date) unknown) (unknown) (no (unknown) (unknown) Hgb (units (unkno wn) date) unknown) (unknown) (no (unknown) (unknown) Hgb 13.0 (units (unkn own) date) unknown) (unknown) (no (unknown) (unknown) History of Present (units (unknown) date) Illness unknown) (unknown) (no (unknown) (unknown) History of colon (units (unknown) date) polyps (09/28/12) unknown) (unknown) (no (unknown) (unknown) History of left (units (unknown) date) breast cancer unknown) () (unknown) (no (unknown) (unknown) Home Medications (units (unknown) date) and Allergies 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) unknown) (unknown) (no (unknown) (unknown) Labs (units (unkno wn) date) unknown) (unknown) (no (unknown) (unknown) Labs: (units (unkno wn) date) unknown) (unknown) (no (unknown) (unknown) Lipase (units (unkno wn) date) unknown) (unknown) (no (unknown) (unknown) Lipase 45 (units (un known) date) unknown) (unknown) (no (unknown) (unknown) Lymph # (Auto) (units (unknown) date) unknown) (unknown) (no (unknown) (unknown) Lymph # (Auto) (units (unknown) date) 1300 unknown) (unknown) (no (unknown) (unknown) Lymph % (Auto) (units (unknown) date) unknown) (unknown) (no (unknown) (unknown) Lymph % (Auto) (units (unknown) date) 20.2 L unknown) (unknown) (no (unknown) (unknown) [id number] (units (unk nown) date) unknown) (unknown) (no (unknown) (unknown) MCH (units (unkno wn) date) unknown) (unknown) (no (unknown) (unknown) MCH 30.1 (units (unkn own) date) unknown) (unknown) (no (unknown) (unknown) MCHC (units (unkno wn) date) unknown) (unknown) (no (unknown) (unknown) MCHC 33.2 (units (unk nown) date) unknown) (unknown) (no (unknown) (unknown) MCV (units (unkno wn) date) unknown) (unknown) (no (unknown) (unknown) MCV 90.9 (units (unkn own) date) unknown) (unknown) (no (unknown) (unknown) Magnesium (units (unkn own) date) unknown) (unknown) (no (unknown) (unknown) Magnesium 2.0 (units (unknown) date) unknown) (unknown) (no (unknown) (unknown) May for adult (units ( unknown) date) failure to thrive, unknown) per patient she is living in a better (unknown) (no (unknown) (unknown) [place] (units (unkno wn) date) unknown) (unknown) (no (unknown) (unknown) Medical History (units (unknown) date) (Updated 03/18/22 @ unknown) 03:05 by JULIETTE Alfred) (unknown) (no (unknown) (unknown) Meds (units (unkno wn) date) unknown) 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 unknown) () (unknown) (no (unknown) (unknown) [place] # (Auto) (units ( unknown) date) unknown) (unknown) (no (unknown) (unknown) [place] # (Auto) 400 (units (unknown) date) unknown) (unknown) (no (unknown) (unknown) [place] % (Auto) (units ( unknown) date) unknown) (unknown) (no (unknown) (unknown) [place] % (Auto) 7.2 (units (unknown) date) unknown) (unknown) (no (unknown) (unknown) Narrative: (units (unk nown) date) unknown) (unknown) (no (unknown) (unknown) Neut # (Auto) (units ( unknown) date) unknown) (unknown) (no (unknown) (unknown) Neut # (Auto) (units ( unknown) date) 4400 unknown) (unknown) (no (unknown) (unknown) Neut % (Auto) (units ( unknown) date) unknown) (unknown) (no (unknown) (unknown) Neut % (Auto) (units ( unknown) date) 71.1 unknown) (unknown) (no (unknown) (unknown) Objective (units (unkn own) date) unknown) (unknown) (no (unknown) (unknown) Osteoarthritis of (units (unknown) date) knees, bilateral unknown) (unknown) (no (unknown) (unknown) Oxygen Delivery (units (unknown) date) Method Room Air unknown) (unknown) (no (unknown) (unknown) Oxygen Delivery (units (unknown) date) Method Room Air unknown) (unknown) (no (unknown) (unknown) Patient History (units (unknown) date) unknown) 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) (unknown) (no (unknown) (unknown) Plt Count (units (unkn own) date) unknown) (unknown) (no (unknown) (unknown) Plt Count 250 (units (unknown) date) unknown) (unknown) (no (unknown) (unknown) Potassium (units (unkn own) date) unknown) (unknown) (no (unknown) (unknown) Potassium 4.5 (units (unknown) date) unknown) (unknown) (no (unknown) (unknown) 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) () (unknown) (no (unknown) (unknown) 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 unknown) () (unknown) (no (unknown) (unknown) Provider: (units (unkn own) date) Eliana Barry unknown) (unknown) (no (unknown) (unknown) Pulse Oximetry 96 (units (unknown) date) unknown) (unknown) (no (unknown) (unknown) Pulse Rate 118 H (units (unknown) date) 98 H 82 unknown) (unknown) (no (unknown) (unknown) RBC (units (unkno wn) date) unknown) (unknown) (no (unknown) (unknown) RBC 4.32 (units (unkn own) date) unknown) (unknown) (no (unknown) (unknown) RDW (units (unkno wn) date) unknown) (unknown) (no (unknown) (unknown) RDW 14.7 (units (unkn own) date) unknown) (unknown) (no (unknown) (unknown) Respiratory Rate (units (unknown) date) 20 unknown) (unknown) (no (unknown) (unknown) Result Diagrams: (units (unknown) date) unknown) (unknown) (no (unknown) (unknown) Rx (units (unkno wn) date) unknown) (unknown) (no (unknown) (unknown) SARS-CoV-2 (PCR) (units (unknown) date) Negative unknown) (unknown) (no (unknown) (unknown) SARS-CoV-2 (PCR) (units (unknown) date) unknown) (unknown) (no (unknown) (unknown) Safety + (units (unkno wn) date) Behavioral: unknown) (unknown) (no (unknown) (unknown) Signed By: (units (unk nown) date) unknown) (unknown) (no (unknown) (unknown) Smoking Status (units (unknown) date) Never smoker unknown) (unknown) (no (unknown) (unknown) Social History: (units (unknown) date) unknown) (unknown) (no (unknown) (unknown) Sodium (units (unkno wn) date) unknown) (unknown) (no (unknown) (unknown) Sodium 140 (units (u nknown) date) unknown) (unknown) (no (unknown) (unknown) Speech and (units (unk nown) date) language unknown) 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 (09/28/12) (unknown) (no (unknown) (unknown) Status post (units (un known) date) arthroscopy unknown) (unknown) (no (unknown) (unknown) Status post biopsy (units (unknown) date) () unknown) (unknown) (no (unknown) (unknown) Status post breast (units (unknown) date) lumpectomy () unknown) (unknown) (no (unknown) (unknown) Status post (units (un known) date) cholecystectomy unknown) (unknown) (no (unknown) (unknown) 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 (unknown) (no (unknown) (unknown) Status post (units (un known) date) hysterectomy unknown) () (unknown) (no (unknown) (unknown) Substance Use Type (units (unknown) date) does not use unknown) (unknown) (no (unknown) (unknown) Surgical History (units (unknown) date) (Reviewed 03/17/22 unknown) @ 21:36 by Jossue Salcido MD) (unknown) (no (unknown) (unknown) 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, NYHA (unknown) (no (unknown) (unknown) Temperature 97.7 F (units (unknown) date) unknown) (unknown) (no (unknown) (unknown) Threatened By a (units (unknown) date) Person unknown) (unknown) (no (unknown) (unknown) Time Spent With (units (unknown) date) Patient unknown) (unknown) (no (unknown) (unknown) Tobacco + (units (unkn own) date) Substance use: unknown) (unknown) (no (unknown) (unknown) Total Bilirubin (units (unknown) date) unknown) (unknown) (no (unknown) (unknown) Total Bilirubin (units (unknown) date) 0.9 unknown) (unknown) (no (unknown) (unknown) Total Creatine (units (unknown) date) Kinase unknown) (unknown) (no (unknown) (unknown) Total Creatine (units (unknown) date) Kinase < 20 L unknown) (unknown) (no (unknown) (unknown) Total Protein (units ( unknown) date) unknown) (unknown) (no (unknown) (unknown) Total Protein (units ( unknown) date) 7.6 unknown) (unknown) (no (unknown) (unknown) Troponin I < (units (unknown) date) 0.012 unknown) (unknown) (no (unknown) (unknown) Troponin I < (units ( unknown) date) 0.012 unknown) (unknown) (no (unknown) (unknown) Vital Signs (units (un known) date) unknown) (unknown) (no (unknown) (unknown) WBC (units (unkno wn) date) unknown) (unknown) (no (unknown) (unknown) WBC 6.2 (units (unkno wn) date) unknown) (unknown) (no (unknown) (unknown) [Embedded Image (units (unknown) date) Not Available] unknown) (unknown) (no (unknown) (unknown) alcohol intake (units (unknown) date) never unknown) (unknown) (no (unknown) (unknown) alcohol intake (units (unknown) date) frequency unknown) holiday/special occasion (unknown) (no (unknown) (unknown) apixaban 5 mg (units ( unknown) date) tablet 5 mg PO BID unknown) #180 tabs 03/11/21 02/17/22 Rx (unknown) (no (unknown) (unknown) apixaban, history (units (unknown) date) of heart failure, unknown) hypertension, hyperlipidemia, prior history (unknown) (no (unknown) (unknown) atorvastatin 40 mg (units (unknown) date) tablet 40 mg PO unknown) BEDTIME #90 tabs 12/11/21 02/17/22 Rx (unknown) (no (unknown) (unknown) class 2 (06/05/11) (units (unknown) date) unknown) (unknown) (no (unknown) (unknown) diclofenac sodium (units (unknown) date) 1 % topical gel 2 g unknown) topical QID #100 grams 02/03/22 02/17/22 (unknown) (no (unknown) (unknown) furosemide (units (unk nown) date) [FUROSEMIDE] unknown) Allergy Mild RASH Verified 02/16/22 18:19 (unknown) (no (unknown) (unknown) gabapentin 300 mg (units (unknown) date) capsule 300 mg PO unknown) TID #270 caps 11/18/21 02/17/22 Rx (unknown) (no (unknown) (unknown) household members (units (unknown) date) children unknown) (unknown) (no (unknown) (unknown) hydrocodone 5 (units ( unknown) date) mg-acetaminophen unknown) 325 1 tab PO BID PRN pain #20 tabs 03/02/22 Rx (unknown) (no (unknown) (unknown) inhalational (units (u nknown) date) spacing device #1 unknown) ea 11/01/19 02/17/22 Rx (unknown) (no (unknown) (unknown) lisinopril AdvReac (units (unknown) date) Mild Cough Verified unknown) 02/16/22 18:19 (unknown) (no (unknown) (unknown) losartan 50 mg (units (unknown) date) tablet 50 mg PO unknown) DAILY #90 tabs 02/09/22 02/17/22 Rx (unknown) (no (unknown) (unknown) metoprolol (units (unk nown) date) tartrate 25 mg unknown) tablet 12.5 mg PO DAILY #45 tabs 12/11/21 02/17/22 Rx (unknown) (no (unknown) (unknown) mg tablet (units (unkn own) date) unknown) (unknown) (no (unknown) (unknown) nitroglycerin 0.4 (units (unknown) date) mg sublingual See unknown) Rx Instructions sublingual PRN 10/26/21 (unknown) (no (unknown) (unknown) nitroglycerin at (units (unknown) date) home and the pain unknown) resolved. Patient previously here in late (unknown) (no (unknown) (unknown) of CVA, presents (units (unknown) date) to the emergency unknown) department with chest pain. She took (unknown) (no (unknown) (unknown) pantoprazole 40 mg (units (unknown) date) tablet,delayed 40 unknown) mg PO DAILY #90 tabs 22 02/17/22 Rx (unknown) (no (unknown) (unknown) release (units (unkno wn) date) unknown) (unknown) (no (unknown) (unknown) sertraline (units (unk nown) date) [SERTRALINE] unknown) Allergy Mild FEELS Verified 02/16/22 18:19 (unknown) (no (unknown) (unknown) situation. (units (unk nown) date) unknown) (unknown) (no (unknown) (unknown) tablet (Nitrostat) (units (unknown) date) PRN Chest Pain #30 unknown) tabs (unknown) (no (unknown) (unknown) today; this time (units (unknown) date) is exclusive of unknown) procedural time. Result panel 16 (unknown) (no (unknown) (unknown) (no value) (units (unk nown) date) unknown) (unknown) (no (unknown) (unknown) (no value) (units (unk nown) date) unknown) (unknown) (no (unknown) (unknown) Date of Service: (units (unknown) date) 03/18/22 unknown) (unknown) (no (unknown) (unknown) (no value) (units (unk nown) date) unknown) (unknown) (no (unknown) (unknown) 'DRUGGED' (units (unkn own) date) unknown) (unknown) (no (unknown) (unknown) - (units (unkno wn) date) unknown) (unknown) (no (unknown) (unknown) 03/17/22 20:07 (units (unknown) date) unknown) (unknown) (no (unknown) (unknown) Allergies (units (unkn own) date) unknown) (unknown) (no (unknown) (unknown) History + Physical (units (unknown) date) Report unknown) (unknown) (no (unknown) (unknown) Home Medications (units (unknown) date) unknown) (unknown) (no (unknown) (unknown) [facility] (units (unknown) date) [address] unknown) [place] [address] (unknown) (no (unknown) (unknown) Laboratory Results (units (unknown) date) - last 24 hr unknown) (unknown) (no (unknown) (unknown) (no value) (units (unk nown) date) unknown) (unknown) (no (unknown) (unknown) 01:30 (units (unkno wn) date) unknown) (unknown) (no (unknown) (unknown) 03/17/22 03/17/22 (units (unknown) date) 03/17/22 unknown) (unknown) (no (unknown) (unknown) 03/18/22 (units (unkno wn) date) unknown) (unknown) (no (unknown) (unknown) 20:07 20:07 22:12 (units (unknown) date) unknown) (unknown) (no (unknown) (unknown) 03/17/22 (units (unkno wn) date) unknown) (unknown) (no (unknown) (unknown) Medication (units (unk nown) date) Instructions unknown) Recorded Confirmed Type (unknown) (no (unknown) (unknown) Surrogate decision (units (unknown) date) maker is in unknown) patient?s record [If Yes, STOP here]: Yes (unknown) (no (unknown) (unknown) surrogate and POA. (units (unknown) date) unknown) (unknown) (no (unknown) (unknown) (12/05/17) (units (unk nown) date) unknown) (unknown) (no (unknown) (unknown) ([place]) Inhibitor, (units (unknown) date) or Angiotensin unknown) Receptor Annie (ARB).: Yes (unknown) (no (unknown) (unknown) (Aerochamber MV (units (unknown) date) spacer) unknown) (unknown) (no (unknown) (unknown) (Neurontin) (units (un known) date) unknown) (unknown) (no (unknown) (unknown) (past 8 hours): (units (unknown) date) unknown) (unknown) (no (unknown) (unknown) 00:06 03/18/22 (units (unknown) date) unknown) (unknown) (no (unknown) (unknown) 01:00 (units (unkno wn) date) unknown) (unknown) (no (unknown) (unknown) 02/17/22 Rx (units (un known) date) unknown) (unknown) (no (unknown) (unknown) 21:05 03/18/22 (units (unknown) date) unknown) (unknown) (no (unknown) (unknown) 86-year-old female (units (unknown) date) with a history of unknown) atrial fibrillation anticoagulated on (unknown) (no (unknown) (unknown) A + B, STOP here]: (units (unknown) date) Yes unknown) (unknown) (no (unknown) (unknown) A. The patient was (units (unknown) date) prescribed or unknown) already taking an Angiotensin-Convert ing Enzyme (unknown) (no (unknown) (unknown) ALT (units (unkno wn) date) unknown) (unknown) (no (unknown) (unknown) ALT 10 (units (unkno wn) date) unknown) (unknown) (no (unknown) (unknown) AST (units (unkno wn) date) unknown) (unknown) (no (unknown) (unknown) AST 26 (units (unkno wn) date) unknown) (unknown) (no (unknown) (unknown) Abd: soft, (units (unk nown) date) non-tender, unknown) normoactive BTs (unknown) (no (unknown) (unknown) Abdominal pain (units (unknown) date) unknown) (unknown) (no (unknown) (unknown) Acute pancreatitis (units (unknown) date) unknown) (unknown) (no (unknown) (unknown) Age/Sex: 86 / F (units (unknown) date) unknown) (unknown) (no (unknown) (unknown) Albumin (units (unkno wn) date) unknown) (unknown) (no (unknown) (unknown) Albumin 4.1 (units ( unknown) date) unknown) (unknown) (no (unknown) (unknown) Albumin/Globulin (units (unknown) date) Ratio unknown) (unknown) (no (unknown) (unknown) Albumin/Globulin (units (unknown) date) Ratio 1.2 unknown) (unknown) (no (unknown) (unknown) Alkaline (units (unkno wn) date) Phosphatase unknown) (unknown) (no (unknown) (unknown) Alkaline (units (unkno wn) date) Phosphatase 116 unknown) (unknown) (no (unknown) (unknown) Allergy/AdvReac (units (unknown) date) Type Severity unknown) Reaction Status Date / Time (unknown) (no (unknown) (unknown) Anesthesia (units (unk nown) date) unknown) (unknown) (no (unknown) (unknown) Anticoagulated (units (unknown) date) unknown) (unknown) (no (unknown) (unknown) Anxiety (units (unkno wn) date) unknown) 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 () (unknown) (no (unknown) (unknown) 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 The patient was (units (unknown) date) prescribed or unknown) already taking a beta-annie. [If Yes to Both (unknown) (no (unknown) (unknown) BUN (units (unkno wn) date) unknown) (unknown) (no (unknown) (unknown) BUN 18 H (units (unk nown) date) unknown) (unknown) (no (unknown) (unknown) BUN/Creatinine (units (unknown) date) Ratio unknown) (unknown) (no (unknown) (unknown) BUN/Creatinine (units (unknown) date) Ratio 20.7 unknown) (unknown) (no (unknown) (unknown) Baso # (Auto) (units ( unknown) date) unknown) (unknown) (no (unknown) (unknown) Baso # (Auto) 0 (units (unknown) date) unknown) (unknown) (no (unknown) (unknown) Baso % (Auto) (units ( unknown) date) unknown) (unknown) (no (unknown) (unknown) Baso % (Auto) 0.7 (units (unknown) date) unknown) (unknown) (no (unknown) (unknown) Been Physically (units (unknown) date) Hurt or No unknown) (unknown) (no (unknown) (unknown) Bilateral SCDs [] (units (unknown) date) Patient is unknown) currently anticoagulated on []. 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) unknown) (unknown) (no (unknown) (unknown) CK-MB (CK-2) (units (u nknown) date) unknown) (unknown) (no (unknown) (unknown) CK-MB (CK-2) TNP (units (unknown) date) unknown) (unknown) (no (unknown) (unknown) CK-MB (CK-2) Rel (units (unknown) date) Index unknown) (unknown) (no (unknown) (unknown) CK-MB (CK-2) Rel (units (unknown) date) Index TNP unknown) (unknown) (no (unknown) (unknown) COVID-19 (units (unkno wn) date) unknown) (unknown) (no (unknown) (unknown) COVID-19 status: (units (unknown) date) Negative unknown) (unknown) (no (unknown) (unknown) CV: RRR, no murmur (units (unknown) date) or rubs unknown) (unknown) (no (unknown) (unknown) Calcified nodule (units (unknown) date) unknown) (unknown) (no (unknown) (unknown) Calcium (units (unkno wn) date) unknown) (unknown) (no (unknown) (unknown) Calcium 9.1 (units ( unknown) date) unknown) (unknown) (no (unknown) (unknown) Carbon Dioxide (units (unknown) date) unknown) (unknown) (no (unknown) (unknown) Carbon Dioxide (units (unknown) date) 27 unknown) (unknown) (no (unknown) (unknown) 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 (unknown) (no (unknown) (unknown) Cervical cancer, (units (unknown) date) FIGO stage I unknown) (unknown) (no (unknown) (unknown) Chief complaint: (units (unknown) date) Chest Pain unknown) (unknown) (no (unknown) (unknown) Chloride (units (unkno wn) date) unknown) (unknown) (no (unknown) (unknown) Chloride 103 (units (unknown) date) unknown) (unknown) (no (unknown) (unknown) Cholelithiasis (units (unknown) date) unknown) (unknown) (no (unknown) (unknown) Chronic back pain (units (unknown) date) unknown) (unknown) (no (unknown) (unknown) Clinical signs and (units (unknown) date) symptoms of DVT: No unknown) (unknown) (no (unknown) (unknown) Code status: [] as (units (unknown) date) discussed with the unknown) patient who identifies [] as [] his [] her (unknown) (no (unknown) (unknown) Consultants [] (units (unknown) date) None [] care and unknown) involvement in the patient?s care is (unknown) (no (unknown) (unknown) Creatinine (units (unk nown) date) unknown) (unknown) (no (unknown) (unknown) Creatinine 0.87 (units (unknown) date) unknown) (unknown) (no (unknown) (unknown) Critical Care (units ( unknown) date) time: unknown) (unknown) (no (unknown) (unknown) : 1935 (units (unknown) date) Acct:[id number]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 Yes, STOP here]: Yes (unknown) (no (unknown) (unknown) female, asleep but (units (unknown) date) arousable unknown) (unknown) (no (unknown) (unknown) surrogate and POA. (units (unknown) date) unknown) (unknown) (no (unknown) (unknown) to undergo (units (unk nown) date) pharmacological unknown) stress testing. (unknown) (no (unknown) (unknown) (12/05/17) (units (unk nown) date) unknown) (unknown) (no (unknown) (unknown) ([place]) Inhibitor, (units (unknown) date) or Angiotensin unknown) Receptor Annie (ARB).: Yes (unknown) (no (unknown) (unknown) (Aerochamber MV (units (unknown) date) spacer) unknown) (unknown) (no (unknown) (unknown) (Neurontin) (units (un known) date) unknown) (unknown) (no (unknown) (unknown) (past 8 hours): (units (unknown) date) unknown) (unknown) (no (unknown) (unknown) * She will undergo (units (unknown) date) pharmacological unknown) stress testing (unknown) (no (unknown) (unknown) * Will need to (units (unknown) date) hold her metoprolol unknown) (unknown) (no (unknown) (unknown) 00:06 03/18/22 (units (unknown) date) unknown) (unknown) (no (unknown) (unknown) 01:00 (units (unkno wn) date) unknown) (unknown) (no (unknown) (unknown) 02/17/22 Rx (units (un known) date) unknown) (unknown) (no (unknown) (unknown) 1. Chest pain, (units (unknown) date) resolved with unknown) nitroglycerin during the day (unknown) (no (unknown) (unknown) 170s, heart rate (units (unknown) date) 82, respiratory unknown) rate 20, oxygen saturation 96% on room air, she (unknown) (no (unknown) (unknown) 21:05 03/18/22 (units (unknown) date) unknown) (unknown) (no (unknown) (unknown) 86-year-old female (units (unknown) date) with a history of unknown) atrial fibrillation anticoagulated on (unknown) (no (unknown) (unknown) A + B, STOP here]: (units (unknown) date) Yes unknown) (unknown) (no (unknown) (unknown) A. The patient was (units (unknown) date) prescribed or unknown) already taking an Angiotensin-Convert ing Enzyme (unknown) (no (unknown) (unknown) ALT (units (unkno wn) date) unknown) (unknown) (no (unknown) (unknown) ALT 10 (units (unkno wn) date) unknown) (unknown) (no (unknown) (unknown) AST (units (unkno wn) date) unknown) (unknown) (no (unknown) (unknown) AST 26 (units (unkno wn) date) unknown) (unknown) (no (unknown) (unknown) Abd: soft, (units (unk nown) date) non-tender, unknown) normoactive BTs (unknown) (no (unknown) (unknown) Abdominal pain (units (unknown) date) unknown) (unknown) (no (unknown) (unknown) Acute pancreatitis (units (unknown) date) unknown) (unknown) (no (unknown) (unknown) Age/Sex: 86 / F (units (unknown) date) unknown) (unknown) (no (unknown) (unknown) Albumin (units (unkno wn) date) unknown) (unknown) (no (unknown) (unknown) Albumin 4.1 (units ( unknown) date) unknown) (unknown) (no (unknown) (unknown) Albumin/Globulin (units (unknown) date) Ratio unknown) (unknown) (no (unknown) (unknown) Albumin/Globulin (units (unknown) date) Ratio 1.2 unknown) (unknown) (no (unknown) (unknown) Alkaline (units (unkno wn) date) Phosphatase unknown) (unknown) (no (unknown) (unknown) Alkaline (units (unkno wn) date) Phosphatase 116 unknown) (unknown) (no (unknown) (unknown) Allergy/AdvReac (units (unknown) date) Type Severity unknown) Reaction Status Date / Time (unknown) (no (unknown) (unknown) Anesthesia (units (unk nown) date) unknown) (unknown) (no (unknown) (unknown) Anticoagulated (units (unknown) date) unknown) (unknown) (no (unknown) (unknown) Anxiety (units (unkno wn) date) unknown) 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 () (unknown) (no (unknown) (unknown) 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 The patient was (units (unknown) date) prescribed or unknown) already taking a beta-annie. [If Yes to Both (unknown) (no (unknown) (unknown) BUN (units (unkno wn) date) unknown) (unknown) (no (unknown) (unknown) BUN 18 H (units (unk nown) date) unknown) (unknown) (no (unknown) (unknown) BUN/Creatinine (units (unknown) date) Ratio unknown) (unknown) (no (unknown) (unknown) BUN/Creatinine (units (unknown) date) Ratio 20.7 unknown) (unknown) (no (unknown) (unknown) Baso # (Auto) (units ( unknown) date) unknown) (unknown) (no (unknown) (unknown) Baso # (Auto) 0 (units (unknown) date) unknown) (unknown) (no (unknown) (unknown) Baso % (Auto) (units ( unknown) date) unknown) (unknown) (no (unknown) (unknown) Baso % (Auto) 0.7 (units (unknown) date) unknown) (unknown) (no (unknown) (unknown) Been Physically (units (unknown) date) Hurt or No unknown) (unknown) (no (unknown) (unknown) Bilateral SCDs [] (units (unknown) date) Patient is unknown) currently anticoagulated on []. 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) unknown) (unknown) (no (unknown) (unknown) CK-MB (CK-2) (units (u nknown) date) unknown) (unknown) (no (unknown) (unknown) CK-MB (CK-2) TNP (units (unknown) date) unknown) (unknown) (no (unknown) (unknown) CK-MB (CK-2) Rel (units (unknown) date) Index unknown) (unknown) (no (unknown) (unknown) CK-MB (CK-2) Rel (units (unknown) date) Index TNP unknown) (unknown) (no (unknown) (unknown) COVID-19 (units (unkno wn) date) unknown) (unknown) (no (unknown) (unknown) COVID-19 status: (units (unknown) date) Negative unknown) (unknown) (no (unknown) (unknown) CV: RRR, no murmur (units (unknown) date) or rubs unknown) (unknown) (no (unknown) (unknown) Calcified nodule (units (unknown) date) unknown) (unknown) (no (unknown) (unknown) Calcium (units (unkno wn) date) unknown) (unknown) (no (unknown) (unknown) Calcium 9.1 (units ( unknown) date) unknown) (unknown) (no (unknown) (unknown) Carbon Dioxide (units (unknown) date) unknown) (unknown) (no (unknown) (unknown) Carbon Dioxide (units (unknown) date) 27 unknown) (unknown) (no (unknown) (unknown) 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 She is afebrile, blood (unknown) (no (unknown) (unknown) Chief complaint: (units (unknown) date) Chest Pain unknown) (unknown) (no (unknown) (unknown) Chloride (units (unkno wn) date) unknown) (unknown) (no (unknown) (unknown) Chloride 103 (units (unknown) date) unknown) (unknown) (no (unknown) (unknown) Cholelithiasis (units (unknown) date) unknown) (unknown) (no (unknown) (unknown) Chronic back pain (units (unknown) date) unknown) (unknown) (no (unknown) (unknown) Clinical signs and (units (unknown) date) symptoms of DVT: No unknown) (unknown) (no (unknown) (unknown) Code status: [] as (units (unknown) date) discussed with the unknown) patient who identifies [] as [] his [] her (unknown) (no (unknown) (unknown) Consultants [] (units (unknown) date) None [] care and unknown) involvement in the patient?s care is (unknown) (no (unknown) (unknown) Creatinine (units (unk nown) date) unknown) (unknown) (no (unknown) (unknown) Creatinine 0.87 (units (unknown) date) unknown) (unknown) (no (unknown) (unknown) Critical Care (units ( unknown) date) time: unknown) (unknown) (no (unknown) (unknown) : 1935 (units (unknown) date) Acct:[id number] unknown) (unknown) (no (unknown) (unknown) Date Patient Seen: (units (unknown) date) 03/18/22 unknown) (unknown) (no (unknown) (unknown) Deep Vein (units (unkn own) date) Thrombosis/Pulmonar unknown) y Embolism Present on Admission: No (unknown) (no (unknown) (unknown) Developmental (units ( unknown) date) disorder unknown) (unknown) (no (unknown) (unknown) Diarrhea (units (unkno wn) date) unknown) (unknown) (no (unknown) (unknown) Dispo: [] (units (unkn own) date) unknown) (unknown) (no (unknown) (unknown) Environment (units (un known) date) unknown) (unknown) (no (unknown) (unknown) Eos # (Auto) (units (u nknown) date) unknown) (unknown) (no (unknown) (unknown) Eos # (Auto) 0 (units (unknown) date) unknown) (unknown) (no (unknown) (unknown) Eos % (Auto) (units (u nknown) date) unknown) (unknown) (no (unknown) (unknown) Eos % (Auto) 0.8 (units (unknown) date) L unknown) (unknown) (no (unknown) (unknown) Essential (units (unkn own) date) hypertension unknown) (09/28/12) (unknown) (no (unknown) (unknown) Estimated GFR (units ( unknown) date) unknown) (unknown) (no (unknown) (unknown) Estimated GFR > (units (unknown) date) 60 unknown) (unknown) (no (unknown) (unknown) Exam (units (unkno wn) date) unknown) (unknown) (no (unknown) (unknown) Exam Narrative: (units (unknown) date) unknown) (unknown) (no (unknown) (unknown) Extremities: moves (units (unknown) date) all 4 extremities, unknown) is ambulatory, negative Chelsy?s sign (unknown) (no (unknown) (unknown) FEN: IV fluids: (units (unknown) date) [], diet: [], labs: unknown) CBC, C/BMP, liver enzymes, Mag, PT/INR (unknown) (no (unknown) (unknown) Failure to thrive (units (unknown) date) in adult unknown) (unknown) (no (unknown) (unknown) Family + Social (units (unknown) date) History unknown) (unknown) (no (unknown) (unknown) Family History (units (unknown) date) (Reviewed 03/18/22 unknown) @ 04:05 by JULIETTE Alfred) (unknown) (no (unknown) (unknown) Father (units (unknown) date) Myocardial infarct unknown) (unknown) (no (unknown) (unknown) Feels Safe in (units ( unknown) date) Current Yes unknown) (unknown) (no (unknown) (unknown) Fibrocystic breast (units (unknown) date) disease unknown) (unknown) (no (unknown) (unknown) GERD (units (unkno wn) date) (gastroesophageal unknown) reflux disease) (unknown) (no (unknown) (unknown) Gen: Alert, (units (un known) date) oriented, unknown) chronically ill appearing and cachectic 56 y.o. (unknown) (no (unknown) (unknown) Globulin (units (unkno wn) date) unknown) (unknown) (no (unknown) (unknown) Globulin 3.5 (units (unknown) date) unknown) (unknown) (no (unknown) (unknown) Glucose (units (unkno wn) date) unknown) (unknown) (no (unknown) (unknown) Glucose 99 (units (u nknown) date) unknown) (unknown) (no (unknown) (unknown) HEENT: (units (unkno wn) date) normocephalic, unknown) atraumatic, conjunctiva clear, sclera non-icteric, oral (unknown) (no (unknown) (unknown) Handicap Parking (units (unknown) date) #1 ea 01/12/19 unknown) 02/17/22 Rx (unknown) (no (unknown) (unknown) Hct (units (unkno wn) date) unknown) (unknown) (no (unknown) (unknown) Hct 39.2 (units (unkn own) date) unknown) (unknown) (no (unknown) (unknown) Heart rate > 100: (units (unknown) date) No unknown) (unknown) (no (unknown) (unknown) Hemoptysis: No (units (unknown) date) unknown) (unknown) (no (unknown) (unknown) Hgb (units (unkno wn) date) unknown) (unknown) (no (unknown) (unknown) Hgb 13.0 (units (unkn own) date) unknown) (unknown) (no (unknown) (unknown) History of PE or (units (unknown) date) DVT: No unknown) (unknown) (no (unknown) (unknown) History of Present (units (unknown) date) Illness unknown) (unknown) (no (unknown) (unknown) History of colon (units (unknown) date) polyps (09/28/12) unknown) (unknown) (no (unknown) (unknown) History of left (units (unknown) date) breast cancer unknown) (-2008) (unknown) (no (unknown) (unknown) Home Medications (units (unknown) date) and Allergies unknown) (unknown) (no (unknown) (unknown) Hyperlipidemia (units (unknown) date) unknown) (unknown) (no (unknown) (unknown) I confirm the (units (u nknown) date) patient?s Advance unknown) Care Plan is present, Code status is documented, (unknown) (no (unknown) (unknown) I spent a total of (units (unknown) date) [] minutes of unknown) critical care time on this patient's care 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) unknown) (unknown) (no (unknown) (unknown) Immobilization at (units (unknown) date) least 3 days or unknown) surg in previous 4 weeks: No (unknown) (no (unknown) (unknown) Roslyn Prather is (units (unknown) date) an 86-year-old unknown) female and will be observed overnight in order (unknown) (no (unknown) (unknown) Labs (units (unkno wn) date) unknown) (unknown) (no (unknown) (unknown) Labs: (units (unkno wn) date) unknown) (unknown) (no (unknown) (unknown) Lipase (units (unkno wn) date) unknown) (unknown) (no (unknown) (unknown) Lipase 45 (units (un known) date) unknown) (unknown) (no (unknown) (unknown) Lymph # (Auto) (units (unknown) date) unknown) (unknown) (no (unknown) (unknown) Lymph # (Auto) (units (unknown) date) 1300 unknown) (unknown) (no (unknown) (unknown) Lymph % (Auto) (units (unknown) date) unknown) (unknown) (no (unknown) (unknown) Lymph % (Auto) (units (unknown) date) 20.2 L unknown) (unknown) (no (unknown) (unknown) [id number] (units (unk nown) date) unknown) (unknown) (no (unknown) (unknown) MCH (units (unkno wn) date) unknown) (unknown) (no (unknown) (unknown) MCH 30.1 (units (unkn own) date) unknown) (unknown) (no (unknown) (unknown) MCHC (units (unkno wn) date) unknown) (unknown) (no (unknown) (unknown) MCHC 33.2 (units (unk nown) date) unknown) (unknown) (no (unknown) (unknown) MCV (units (unkno wn) date) unknown) (unknown) (no (unknown) (unknown) MCV 90.9 (units (unkn own) date) unknown) (unknown) (no (unknown) (unknown) MIPS - Admit (units (u nknown) date) unknown) (unknown) (no (unknown) (unknown) MIPS - DC (units (unkn own) date) unknown) (unknown) (no (unknown) (unknown) Magnesium (units (unkn own) date) unknown) (unknown) (no (unknown) (unknown) Magnesium 2.0 (units (unknown) date) unknown) (unknown) (no (unknown) (unknown) Malignancy (units (unk nown) date) w/Treatment within unknown) 6 months or palliative: No (unknown) (no (unknown) (unknown) Measles (units (unkno wn) date) unknown) (unknown) (no (unknown) (unknown) Medical History (units (unknown) date) (Reviewed 03/18/22 unknown) @ 04:05 by JULIETTE Alfred) (unknown) (no (unknown) (unknown) Meds (units (unkno wn) date) unknown) 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) (unknown) (no (unknown) (unknown) [place] # (Auto) (units ( unknown) date) unknown) (unknown) (no (unknown) (unknown) [place] # (Auto) 400 (units (unknown) date) unknown) (unknown) (no (unknown) (unknown) [place] % (Auto) (units ( unknown) date) unknown) (unknown) (no (unknown) (unknown) [place] % (Auto) 7.2 (units (unknown) date) unknown) (unknown) (no (unknown) (unknown) Mother (units (unknown) date) Maternal unknown) complication related to childbirth (unknown) (no (unknown) (unknown) Narrative (units (unkn own) date) unknown) (unknown) (no (unknown) (unknown) Narrative: (units (unk nown) date) unknown) (unknown) (no (unknown) (unknown) Neck: supple, full (units (unknown) date) ROM, no JVD, unknown) trachea is midline (unknown) (no (unknown) (unknown) Neuro: Alert and (units (unknown) date) oriented X 4 w/no unknown) focal deficits. Speech clear and coherent. (unknown) (no (unknown) (unknown) Neut # (Auto) (units ( unknown) date) unknown) (unknown) (no (unknown) (unknown) Neut # (Auto) (units ( unknown) date) 4400 unknown) (unknown) (no (unknown) (unknown) Neut % (Auto) (units ( unknown) date) unknown) (unknown) (no (unknown) (unknown) Neut % (Auto) (units ( unknown) date) 71.1 unknown) (unknown) (no (unknown) (unknown) Objective (units (unkn own) date) unknown) (unknown) (no (unknown) (unknown) Osteoarthritis of (units (unknown) date) knees, bilateral unknown) (unknown) (no (unknown) (unknown) Oxygen Delivery (units (unknown) date) Method Room Air unknown) (unknown) (no (unknown) (unknown) Oxygen Delivery (units (unknown) date) Method Room Air unknown) (unknown) (no (unknown) (unknown) PE is #1 Dx or (units (unknown) date) equally likely: No unknown) (unknown) (no (unknown) (unknown) Patient History (units (unknown) date) unknown) 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) (unknown) (no (unknown) (unknown) Plt Count (units (unkn own) date) unknown) (unknown) (no (unknown) (unknown) Plt Count 250 (units (unknown) date) unknown) (unknown) (no (unknown) (unknown) Potassium (units (unkn own) date) unknown) (unknown) (no (unknown) (unknown) Potassium 4.5 (units (unknown) date) unknown) (unknown) (no (unknown) (unknown) 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 unknown) (unknown) (no (unknown) (unknown) Pulse Oximetry 96 (units (unknown) date) unknown) (unknown) (no (unknown) (unknown) Pulse Rate 118 H (units (unknown) date) 98 H 82 unknown) (unknown) (no (unknown) (unknown) Quality (units (unkno wn) date) unknown) (unknown) (no (unknown) (unknown) RBC (units (unkno wn) date) unknown) (unknown) (no (unknown) (unknown) RBC 4.32 (units (unkn own) date) unknown) (unknown) (no (unknown) (unknown) RDW (units (unkno wn) date) unknown) (unknown) (no (unknown) (unknown) RDW 14.7 (units (unkn own) date) unknown) (unknown) (no (unknown) (unknown) ROS: Yes All (units (u nknown) date) systems reviewed unknown) with the patient and are negative except as (unknown) (no (unknown) (unknown) Resp: Lungs CTA, (units (unknown) date) non-labored unknown) breathing (unknown) (no (unknown) (unknown) Respiratory Rate (units (unknown) date) 20 unknown) (unknown) (no (unknown) (unknown) Result Diagrams: (units (unknown) date) unknown) (unknown) (no (unknown) (unknown) Result date/Date (units (unknown) date) tested (Pos, unknown) Neg/Pending): 03/18/22 (unknown) (no (unknown) (unknown) Review of Systems (units (unknown) date) unknown) (unknown) (no (unknown) (unknown) Rx (units (unkno wn) date) unknown) (unknown) (no (unknown) (unknown) SARS-CoV-2 (PCR) (units (unknown) date) Negative unknown) (unknown) (no (unknown) (unknown) SARS-CoV-2 (PCR) (units (unknown) date) unknown) (unknown) (no (unknown) (unknown) Safety + (units (unkno wn) date) Behavioral: unknown) (unknown) (no (unknown) (unknown) Scores (units (unkno wn) date) unknown) (unknown) (no (unknown) (unknown) She recently had a (units (unknown) date) 2 day admission for unknown) adult failure to thrive. She has a (unknown) (no (unknown) (unknown) She was discharged (units (unknown) date) on metoprolol and unknown) losartan. (unknown) (no (unknown) (unknown) Signed By: (units (unk nown) date) unknown) (unknown) (no (unknown) (unknown) Sister (units (unknown) date) Traumatic unknown) amputation (unknown) (no (unknown) (unknown) Skin: no lesions (units (unknown) date) or rashes, dry and unknown) intact (unknown) (no (unknown) (unknown) Smoking Status (units (unknown) date) Never smoker unknown) (unknown) (no (unknown) (unknown) Social History: (units (unknown) date) unknown) (unknown) (no (unknown) (unknown) Sodium (units (unkno wn) date) unknown) (unknown) (no (unknown) (unknown) Sodium 140 (units (u nknown) date) unknown) (unknown) (no (unknown) (unknown) Speech and (units (unk nown) date) language unknown) 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 (09/28/12) (unknown) (no (unknown) (unknown) Status post (units (un known) date) arthroscopy unknown) (unknown) (no (unknown) (unknown) Status post biopsy (units (unknown) date) (-2015) unknown) (unknown) (no (unknown) (unknown) Status post breast (units (unknown) date) lumpectomy (-2008) unknown) (unknown) (no (unknown) (unknown) Status post (units (un known) date) cholecystectomy unknown) (unknown) (no (unknown) (unknown) 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 (unknown) (no (unknown) (unknown) Status post (units (un known) date) hysterectomy unknown) () (unknown) (no (unknown) (unknown) Substance Use Type (units (unknown) date) does not use unknown) (unknown) (no (unknown) (unknown) Surgical History (units (unknown) date) (Reviewed 03/18/22 unknown) @ 04:05 by JULIETTE Alfred) (unknown) (no (unknown) (unknown) 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, NYHA (unknown) (no (unknown) (unknown) Temperature 97.7 F (units (unknown) date) unknown) (unknown) (no (unknown) (unknown) The patient has (units (unknown) date) current or prior unknown) documentation of left ventricular ejection (unknown) (no (unknown) (unknown) Threatened By a (units (unknown) date) Person unknown) (unknown) (no (unknown) (unknown) Time Spent With (units (unknown) date) Patient unknown) (unknown) (no (unknown) (unknown) Tobacco + (units (unkn own) date) Substance use: unknown) (unknown) (no (unknown) (unknown) Total Bilirubin (units (unknown) date) unknown) (unknown) (no (unknown) (unknown) Total Bilirubin (units (unknown) date) 0.9 unknown) (unknown) (no (unknown) (unknown) Total Creatine (units (unknown) date) Kinase unknown) (unknown) (no (unknown) (unknown) Total Creatine (units (unknown) date) Kinase < 20 L unknown) (unknown) (no (unknown) (unknown) Total Protein (units ( unknown) date) unknown) (unknown) (no (unknown) (unknown) Total Protein (units ( unknown) date) 7.6 unknown) (unknown) (no (unknown) (unknown) Troponin I < (units (unknown) date) 0.012 unknown) (unknown) (no (unknown) (unknown) Troponin I < (units ( unknown) date) 0.012 unknown) (unknown) (no (unknown) (unknown) VTE (units (unkno wn) date) unknown) (unknown) (no (unknown) (unknown) VTE Prophylaxis: (units (unknown) date) Wells risk score [] unknown) []Enoxaparin 40 mg subQ once daily [] (unknown) (no (unknown) (unknown) Vital Signs (units (un known) date) unknown) (unknown) (no (unknown) (unknown) WBC (units (unkno wn) date) unknown) (unknown) (no (unknown) (unknown) WBC 6.2 (units (unkno wn) date) unknown) (unknown) (no (unknown) (unknown) Wells' Criteria (units (unknown) date) for PE unknown) (unknown) (no (unknown) (unknown) Wells' PE Score (units (unknown) date) total: 0 unknown) (unknown) (no (unknown) (unknown) [Embedded Image (units (unknown) date) Not Available] unknown) (unknown) (no (unknown) (unknown) [X] I have (units (unk nown) date) utilized all unknown) available immediate resources to obtain, update, or (unknown) (no (unknown) (unknown) []Patient is (units (u nknown) date) admitted to the unknown) inpatient service due to the severity of disease, (unknown) (no (unknown) (unknown) []Patient is (units (u nknown) date) placed into unknown) observation as [] stay is not expected to exceed 2 (unknown) (no (unknown) (unknown) alcohol intake (units (unknown) date) never unknown) (unknown) (no (unknown) (unknown) alcohol intake (units (unknown) date) frequency unknown) holiday/special occasion (unknown) (no (unknown) (unknown) ambulance, but (units (unknown) date) does not remember unknown) who. Denies shortness of breath, does endorse (unknown) (no (unknown) (unknown) apixaban 5 mg (units ( unknown) date) tablet 5 mg PO BID unknown) #180 tabs 03/11/21 02/17/22 Rx (unknown) (no (unknown) (unknown) apixaban, history (units (unknown) date) of heart failure, unknown) hypertension, hyperlipidemia, prior history (unknown) (no (unknown) (unknown) appreciated. (units (u nknown) date) unknown) (unknown) (no (unknown) (unknown) atorvastatin 40 mg (units (unknown) date) tablet 40 mg PO unknown) BEDTIME #90 tabs 12/11/21 02/17/22 Rx (unknown) (no (unknown) (unknown) class 2 (06/05/11) (units (unknown) date) unknown) (unknown) (no (unknown) (unknown) denies having (units ( unknown) date) diarrhea. Positive unknown) for urinary burning and constipation, has not (unknown) (no (unknown) (unknown) diclofenac sodium (units (unknown) date) 1 % topical gel 2 g unknown) topical QID #100 grams 02/03/22 02/17/22 (unknown) (no (unknown) (unknown) enzymes are within (units (unknown) date) normal limits, unknown) troponins x2 are not negative, UA is negative (unknown) (no (unknown) (unknown) for UTI and (units (un known) date) COVID-19 PCR is unknown) negative. (unknown) (no (unknown) (unknown) fraction (LVEF) (units (unknown) date) less than 40%, or unknown) moderate or severely depressed left (unknown) (no (unknown) (unknown) furosemide (units (unk nown) date) [FUROSEMIDE] unknown) Allergy Mild RASH Verified 02/16/22 18:19 (unknown) (no (unknown) (unknown) gabapentin 300 mg (units (unknown) date) capsule 300 mg PO unknown) TID #270 caps 11/18/21 02/17/22 Rx (unknown) (no (unknown) (unknown) had a bm in Patient (units (unknown) date) previously here in unknown) late January for adult failure to thrive, per (unknown) (no (unknown) (unknown) having pain on the (units (unknown) date) left side of her unknown) neck, right arm. Denies nausea or vomiting, (unknown) (no (unknown) (unknown) history of atrial (units (unknown) date) fibrillation and an unknown) echocardiogram was done on February 17 and (unknown) (no (unknown) (unknown) household members (units (unknown) date) children unknown) (unknown) (no (unknown) (unknown) hydrocodone 5 (units ( unknown) date) mg-acetaminophen unknown) 325 1 tab PO BID PRN pain #20 tabs 03/02/22 Rx (unknown) (no (unknown) (unknown) inhalational (units (u nknown) date) spacing device #1 unknown) ea 11/01/19 02/17/22 Rx (unknown) (no (unknown) (unknown) lisinopril AdvReac (units (unknown) date) Mild Cough Verified unknown) 02/16/22 18:19 (unknown) (no (unknown) (unknown) losartan 50 mg (units (unknown) date) tablet 50 mg PO unknown) DAILY #90 tabs 02/09/22 02/17/22 Rx (unknown) (no (unknown) (unknown) metoprolol (units (unk nown) date) tartrate 25 mg unknown) tablet 12.5 mg PO DAILY #45 tabs 12/11/21 02/17/22 Rx (unknown) (no (unknown) (unknown) mg tablet (units (unkn own) date) unknown) (unknown) (no (unknown) (unknown) midnights. (units (unk nown) date) unknown) (unknown) (no (unknown) (unknown) mucosa pink and (units (unknown) date) moist unknown) (unknown) (no (unknown) (unknown) nitroglycerin 0.4 (units (unknown) date) mg sublingual See unknown) Rx Instructions sublingual PRN 10/26/21 (unknown) (no (unknown) (unknown) nitroglycerin at (units (unknown) date) home and the pain unknown) resolved. States 'someone' called the (unknown) (no (unknown) (unknown) of CVA, presents (units (unknown) date) to the emergency unknown) department with chest pain. She took (unknown) (no (unknown) (unknown) otherwise (units (unkn own) date) documented unknown) (unknown) (no (unknown) (unknown) pantoprazole 40 mg (units (unknown) date) tablet,delayed 40 unknown) mg PO DAILY #90 tabs 02/09/22 02/17/22 Rx (unknown) (no (unknown) (unknown) patient she is (units (unknown) date) living in a better unknown) situation. (unknown) (no (unknown) (unknown) pressure is 202/98 (units (unknown) date) however in the ED unknown) her systolic blood pressure was actually (unknown) (no (unknown) (unknown) release (units (unkno wn) date) unknown) (unknown) (no (unknown) (unknown) review of the (units ( unknown) date) patient's current unknown) medications (unknown) (no (unknown) (unknown) risks of further (units (unknown) date) disease progression unknown) and this stay is expected to exceed 2 (unknown) (no (unknown) (unknown) sertraline (units (unk nown) date) [SERTRALINE] unknown) Allergy Mild FEELS Verified 02/16/22 18:19 (unknown) (no (unknown) (unknown) she was found to (units (unknown) date) have an EF of unknown) 35-40% 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 (unknown) (no (unknown) (unknown) tablet (Nitrostat) (units (unknown) date) PRN Chest Pain #30 unknown) tabs (unknown) (no (unknown) (unknown) today; this time (units (unknown) date) is exclusive of unknown) procedural time. (unknown) (no (unknown) (unknown) ventricular (units (un known) date) systolic function.: unknown) Yes (unknown) (no (unknown) (unknown) weighs 62.2 kg (units (unknown) date) with a BMI of 20.2. unknown) CBC and chemistries are unremarkable, liver Result panel 19 (unknown) (no (unknown) (unknown) (no value) (units (unk nown) date) unknown) (unknown) (no (unknown) (unknown) (no value) (units (unk nown) date) unknown) (unknown) (no (unknown) (unknown) Date of Service: (units (unknown) date) 03/18/22 unknown) (unknown) (no (unknown) (unknown) (no value) (units (unk nown) date) unknown) (unknown) (no (unknown) (unknown) 'DRUGGED' (units (unkn own) date) unknown) (unknown) (no (unknown) (unknown) - (units (unkno wn) date) unknown) (unknown) (no (unknown) (unknown) 03/17/22 20:07 (units (unknown) date) unknown) (unknown) (no (unknown) (unknown) 03/18/22 0420 (units ( unknown) date) unknown) (unknown) (no (unknown) (unknown) Allergies (units (unkn own) date) unknown) (unknown) (no (unknown) (unknown) History + Physical (units (unknown) date) Report unknown) (unknown) (no (unknown) (unknown) Home Medications (units (unknown) date) unknown) (unknown) (no (unknown) (unknown) [facility] (units (unknown) date) [address] unknown) [place] [address] (unknown) (no (unknown) (unknown) Laboratory Results (units (unknown) date) - last 24 hr unknown) (unknown) (no (unknown) (unknown) (no value) (units (unk nown) date) unknown) (unknown) (no (unknown) (unknown) 01:30 (units (unkno wn) date) unknown) (unknown) (no (unknown) (unknown) 03/17/22 03/17/22 (units (unknown) date) 03/17/22 unknown) (unknown) (no (unknown) (unknown) 03/18/22 (units (unkno wn) date) unknown) (unknown) (no (unknown) (unknown) 20:07 20:07 22:12 (units (unknown) date) unknown) (unknown) (no (unknown) (unknown) end up being (units (u nknown) date) deferred to Tuesday unknown) morning. (unknown) (no (unknown) (unknown) 03/17/22 (units (unkno wn) date) unknown) (unknown) (no (unknown) (unknown) Medication (units (unk nown) date) Instructions unknown) Recorded Confirmed Type (unknown) (no (unknown) (unknown) Surrogate decision (units (unknown) date) maker is in unknown) patient?s record [If Yes, STOP here]: Yes (unknown) (no (unknown) (unknown) as her surrogate (units (unknown) date) and POA. unknown) (unknown) (no (unknown) (unknown) female, asleep but (units (unknown) date) arousable unknown) (unknown) (no (unknown) (unknown) to undergo (units (unk nown) date) pharmacological unknown) stress testing. (unknown) (no (unknown) (unknown) (12/05/17) (units (unk nown) date) unknown) (unknown) (no (unknown) (unknown) ([place]ILL) Inhibitor, (units (unknown) date) or Angiotensin unknown) Receptor Annie (ARB).: Yes (unknown) (no (unknown) (unknown) (Aerochamber MV (units (unknown) date) spacer) unknown) (unknown) (no (unknown) (unknown) (Neurontin) (units (un known) date) unknown) (unknown) (no (unknown) (unknown) (past 8 hours): (units (unknown) date) unknown) (unknown) (no (unknown) (unknown) * Apparently she (units (unknown) date) was given unknown) metoprolol in the ED, so obtaining a stress test may (unknown) (no (unknown) (unknown) * Continue home (units (unknown) date) dose of apixaban unknown) (unknown) (no (unknown) (unknown) * Continue home (units (unknown) date) dose of unknown) atorvastatin 40 mg po daily (unknown) (no (unknown) (unknown) * Continue home (units (unknown) date) dose of unknown) pantoprazole 40 mg po daily (unknown) (no (unknown) (unknown) * Due to ischemic (units (unknown) date) cardiomyopathy unknown) (unknown) (no (unknown) (unknown) * Nitro if she has (units (unknown) date) any more episodes unknown) of chest pain (unknown) (no (unknown) (unknown) * She is currently (units (unknown) date) taking a beta unknown) annie and an ARB. (unknown) (no (unknown) (unknown) * She will undergo (units (unknown) date) pharmacological unknown) stress testing (unknown) (no (unknown) (unknown) * This was (units (unk nown) date) observed in her EKG unknown) (unknown) (no (unknown) (unknown) * Will need to (units (unknown) date) hold her unknown) metoprolol. (unknown) (no (unknown) (unknown) 00:06 03/18/22 (units (unknown) date) unknown) (unknown) (no (unknown) (unknown) 01:00 (units (unkno wn) date) unknown) (unknown) (no (unknown) (unknown) 02/17/22 Rx (units (un known) date) unknown) (unknown) (no (unknown) (unknown) 1. Chest pain, (units (unknown) date) resolved with unknown) nitroglycerin during the day (unknown) (no (unknown) (unknown) 170s, heart rate (units (unknown) date) 82, respiratory unknown) rate 20, oxygen saturation 96% on room air, she (unknown) (no (unknown) (unknown) 2. Atrial (units (unkn own) date) fibrillation, unknown) likely permanent (unknown) (no (unknown) (unknown) 21:05 03/18/22 (units (unknown) date) unknown) (unknown) (no (unknown) (unknown) 3. (units (unkno wn) date) CAD/dyslipidemia, unknown) chronic (unknown) (no (unknown) (unknown) 4. GERD, chronic (units (unknown) date) unknown) (unknown) (no (unknown) (unknown) 5. Congestive (units ( unknown) date) heart failure with unknown) a Chads 2 Vas score of 8, chronic (unknown) (no (unknown) (unknown) 86-year-old female (units (unknown) date) with a history of unknown) atrial fibrillation anticoagulated on (unknown) (no (unknown) (unknown) A + B, STOP here]: (units (unknown) date) Yes unknown) (unknown) (no (unknown) (unknown) A. The patient was (units (unknown) date) prescribed or unknown) already taking an Angiotensin-Convert ing Enzyme (unknown) (no (unknown) (unknown) ALT (units (unkno wn) date) unknown) (unknown) (no (unknown) (unknown) ALT 10 (units (unkno wn) date) unknown) (unknown) (no (unknown) (unknown) AST (units (unkno wn) date) unknown) (unknown) (no (unknown) (unknown) AST 26 (units (unkno wn) date) unknown) (unknown) (no (unknown) (unknown) Abd: soft, (units (unk nown) date) non-tender, unknown) normoactive BTs (unknown) (no (unknown) (unknown) Abdominal pain (units (unknown) date) unknown) (unknown) (no (unknown) (unknown) Acute pancreatitis (units (unknown) date) unknown) (unknown) (no (unknown) (unknown) Age 67 to 76 (units (u nknown) date) years: no unknown) (unknown) (no (unknown) (unknown) Age 77 years or (units (unknown) date) older: yes unknown) (unknown) (no (unknown) (unknown) Age/Sex: 86 / F (units (unknown) date) unknown) (unknown) (no (unknown) (unknown) Albumin (units (unkno wn) date) unknown) (unknown) (no (unknown) (unknown) Albumin 4.1 (units ( unknown) date) unknown) (unknown) (no (unknown) (unknown) Albumin/Globulin (units (unknown) date) Ratio unknown) (unknown) (no (unknown) (unknown) Albumin/Globulin (units (unknown) date) Ratio 1.2 unknown) (unknown) (no (unknown) (unknown) Alkaline (units (unkno wn) date) Phosphatase unknown) (unknown) (no (unknown) (unknown) Alkaline (units (unkno wn) date) Phosphatase 116 unknown) (unknown) (no (unknown) (unknown) Allergy/AdvReac (units (unknown) date) Type Severity unknown) Reaction Status Date / Time (unknown) (no (unknown) (unknown) Anesthesia (units (unk nown) date) unknown) (unknown) (no (unknown) (unknown) Anticoagulated (units (unknown) date) unknown) (unknown) (no (unknown) (unknown) Anxiety (units (unkno wn) date) unknown) 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 () (unknown) (no (unknown) (unknown) 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 The patient was (units (unknown) date) prescribed or unknown) already taking a beta-annie. [If Yes to Both (unknown) (no (unknown) (unknown) BUN (units (unkno wn) date) unknown) (unknown) (no (unknown) (unknown) BUN 18 H (units (unk nown) date) unknown) (unknown) (no (unknown) (unknown) BUN/Creatinine (units (unknown) date) Ratio unknown) (unknown) (no (unknown) (unknown) BUN/Creatinine (units (unknown) date) Ratio 20.7 unknown) (unknown) (no (unknown) (unknown) Baso # (Auto) (units ( unknown) date) unknown) (unknown) (no (unknown) (unknown) Baso # (Auto) 0 (units (unknown) date) unknown) (unknown) (no (unknown) (unknown) Baso % (Auto) (units ( unknown) date) unknown) (unknown) (no (unknown) (unknown) Baso % (Auto) 0.7 (units (unknown) date) unknown) (unknown) (no (unknown) (unknown) Been Physically (units (unknown) date) Hurt or No unknown) (unknown) (no (unknown) (unknown) Blood Pressure (units (unknown) date) 201/119 H 191/91 H unknown) 202/98 H (unknown) (no (unknown) (unknown) Breast cancer (units ( unknown) date) () unknown) (unknown) (no (unknown) (unknown) 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) unknown) (unknown) (no (unknown) (unknown) CHADS-VASc (units (unk nown) date) unknown) (unknown) (no (unknown) (unknown) CHADS-VASc Score: (units (unknown) date) 8 unknown) (unknown) (no (unknown) (unknown) CK-MB (CK-2) (units (u nknown) date) unknown) (unknown) (no (unknown) (unknown) CK-MB (CK-2) TNP (units (unknown) date) unknown) (unknown) (no (unknown) (unknown) CK-MB (CK-2) Rel (units (unknown) date) Index unknown) (unknown) (no (unknown) (unknown) CK-MB (CK-2) Rel (units (unknown) date) Index TNP unknown) (unknown) (no (unknown) (unknown) COVID-19 (units (unkno wn) date) unknown) (unknown) (no (unknown) (unknown) COVID-19 status: (units (unknown) date) Negative unknown) (unknown) (no (unknown) (unknown) CV: RRR, no murmur (units (unknown) date) or rubs unknown) (unknown) (no (unknown) (unknown) Calcified nodule (units (unknown) date) unknown) (unknown) (no (unknown) (unknown) Calcium (units (unkno wn) date) unknown) (unknown) (no (unknown) (unknown) Calcium 9.1 (units ( unknown) date) unknown) (unknown) (no (unknown) (unknown) Carbon Dioxide (units (unknown) date) unknown) (unknown) (no (unknown) (unknown) Carbon Dioxide (units (unknown) date) 27 unknown) (unknown) (no (unknown) (unknown) 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 She is afebrile, blood (unknown) (no (unknown) (unknown) Chief complaint: (units (unknown) date) Chest Pain unknown) (unknown) (no (unknown) (unknown) Chloride (units (unkno wn) date) unknown) (unknown) (no (unknown) (unknown) Chloride 103 (units (unknown) date) unknown) (unknown) (no (unknown) (unknown) Cholelithiasis (units (unknown) date) unknown) (unknown) (no (unknown) (unknown) Chronic back pain (units (unknown) date) unknown) (unknown) (no (unknown) (unknown) Clinical signs and (units (unknown) date) symptoms of DVT: No unknown) (unknown) (no (unknown) (unknown) Code status: Full (units (unknown) date) code as discussed unknown) with the patient who identifies her son Ino (unknown) (no (unknown) (unknown) Congestive heart (units (unknown) date) failure: yes unknown) (unknown) (no (unknown) (unknown) Consultants None (units (unknown) date) care and unknown) involvement in the patient?s care is appreciated. (unknown) (no (unknown) (unknown) Creatinine (units (unk nown) date) unknown) (unknown) (no (unknown) (unknown) Creatinine 0.87 (units (unknown) date) unknown) (unknown) (no (unknown) (unknown) : 1935 (units (unknown) date) Acct:[id number] unknown) (unknown) (no (unknown) (unknown) Date Patient Seen: (units (unknown) date) 03/18/22 unknown) (unknown) (no (unknown) (unknown) Deep Vein (units (unkn own) date) Thrombosis/Pulmonar unknown) y Embolism Present on Admission: No (unknown) (no (unknown) (unknown) Developmental (units ( unknown) date) disorder unknown) (unknown) (no (unknown) (unknown) Diabetes mellitus: (units (unknown) date) no unknown) (unknown) (no (unknown) (unknown) Diarrhea (units (unkno wn) date) unknown) (unknown) (no (unknown) (unknown) Dispo: probable (units (unknown) date) d/c to home unknown) (unknown) (no (unknown) (unknown) Environment (units (un known) date) unknown) (unknown) (no (unknown) (unknown) Eos # (Auto) (units (u nknown) date) unknown) (unknown) (no (unknown) (unknown) Eos # (Auto) 0 (units (unknown) date) unknown) (unknown) (no (unknown) (unknown) Eos % (Auto) (units (u nknown) date) unknown) (unknown) (no (unknown) (unknown) Eos % (Auto) 0.8 (units (unknown) date) L unknown) (unknown) (no (unknown) (unknown) Essential (units (unkn own) date) hypertension unknown) (09/28/12) (unknown) (no (unknown) (unknown) Estimated GFR (units ( unknown) date) unknown) (unknown) (no (unknown) (unknown) Estimated GFR > (units (unknown) date) 60 unknown) (unknown) (no (unknown) (unknown) Exam (units (unkno wn) date) unknown) (unknown) (no (unknown) (unknown) Exam Narrative: (units (unknown) date) unknown) (unknown) (no (unknown) (unknown) Extremities: moves (units (unknown) date) all 4 extremities, unknown) is ambulatory, negative Chelsy?s sign (unknown) (no (unknown) (unknown) FEN: IV fluids: (units (unknown) date) saline lock, diet: unknown) heart healthy, labs: CBC, C/BMP, liver (unknown) (no (unknown) (unknown) Failure to thrive (units (unknown) date) in adult unknown) (unknown) (no (unknown) (unknown) Family + Social (units (unknown) date) History unknown) (unknown) (no (unknown) (unknown) Family History (units (unknown) date) (Reviewed 03/18/22 unknown) @ 04:05 by JULIETTE Alfred) (unknown) (no (unknown) (unknown) Father (units (unknown) date) Myocardial infarct unknown) (unknown) (no (unknown) (unknown) Feels Safe in (units ( unknown) date) Current Yes unknown) (unknown) (no (unknown) (unknown) Fibrocystic breast (units (unknown) date) disease unknown) (unknown) (no (unknown) (unknown) GERD (units (unkno wn) date) (gastroesophageal unknown) reflux disease) (unknown) (no (unknown) (unknown) Gen: Alert, (units (un known) date) oriented, unknown) chronically ill appearing and cachectic 56 y.o. (unknown) (no (unknown) (unknown) Globulin (units (unkno wn) date) unknown) (unknown) (no (unknown) (unknown) Globulin 3.5 (units (unknown) date) unknown) (unknown) (no (unknown) (unknown) Glucose (units (unkno wn) date) unknown) (unknown) (no (unknown) (unknown) Glucose 99 (units (u nknown) date) unknown) (unknown) (no (unknown) (unknown) HEENT: (units (unkno wn) date) normocephalic, unknown) atraumatic, conjunctiva clear, sclera non-icteric, oral (unknown) (no (unknown) (unknown) Handicap Parking (units (unknown) date) #1 ea 04/19/19 unknown) 02/17/22 Rx (unknown) (no (unknown) (unknown) Hct (units (unkno wn) date) unknown) (unknown) (no (unknown) (unknown) Hct 39.2 (units (unkn own) date) unknown) (unknown) (no (unknown) (unknown) Heart rate > 100: (units (unknown) date) No unknown) (unknown) (no (unknown) (unknown) Hemoptysis: No (units (unknown) date) unknown) (unknown) (no (unknown) (unknown) Hgb (units (unkno wn) date) unknown) (unknown) (no (unknown) (unknown) Hgb 13.0 (units (unkn own) date) unknown) (unknown) (no (unknown) (unknown) History of PE or (units (unknown) date) DVT: No unknown) (unknown) (no (unknown) (unknown) History of Present (units (unknown) date) Illness unknown) (unknown) (no (unknown) (unknown) History of colon (units (unknown) date) polyps (09/28/12) unknown) (unknown) (no (unknown) (unknown) History of left (units (unknown) date) breast cancer unknown) (-2008) (unknown) (no (unknown) (unknown) Home Medications (units (unknown) date) and Allergies unknown) (unknown) (no (unknown) (unknown) Hyperlipidemia (units (unknown) date) unknown) (unknown) (no (unknown) (unknown) Hypertension: yes (units (unknown) date) unknown) (unknown) (no (unknown) (unknown) I confirm the (units (u nknown) date) patient?s Advance unknown) Care Plan is present, Code status is documented, 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) unknown) (unknown) (no (unknown) (unknown) Immobilization at (units (unknown) date) least 3 days or unknown) surg in previous 4 weeks: No (unknown) (no (unknown) (unknown) Roslyn Prather is (units (unknown) date) an 86-year-old unknown) female and will be observed overnight in order (unknown) (no (unknown) (unknown) Labs (units (unkno wn) date) unknown) (unknown) (no (unknown) (unknown) Labs: (units (unkno wn) date) unknown) (unknown) (no (unknown) (unknown) Lipase (units (unkno wn) date) unknown) (unknown) (no (unknown) (unknown) Lipase 45 (units (un known) date) unknown) (unknown) (no (unknown) (unknown) Lymph # (Auto) (units (unknown) date) unknown) (unknown) (no (unknown) (unknown) Lymph # (Auto) (units (unknown) date) 1300 unknown) (unknown) (no (unknown) (unknown) Lymph % (Auto) (units (unknown) date) unknown) (unknown) (no (unknown) (unknown) Lymph % (Auto) (units (unknown) date) 20.2 L unknown) (unknown) (no (unknown) (unknown) [id number] (units (unk nown) date) unknown) (unknown) (no (unknown) (unknown) MCH (units (unkno wn) date) unknown) (unknown) (no (unknown) (unknown) MCH 30.1 (units (unkn own) date) unknown) (unknown) (no (unknown) (unknown) MCHC (units (unkno wn) date) unknown) (unknown) (no (unknown) (unknown) MCHC 33.2 (units (unk nown) date) unknown) (unknown) (no (unknown) (unknown) MCV (units (unkno wn) date) unknown) (unknown) (no (unknown) (unknown) MCV 90.9 (units (unkn own) date) unknown) (unknown) (no (unknown) (unknown) MIPS - Admit (units (u nknown) date) unknown) (unknown) (no (unknown) (unknown) MIPS - DC (units (unkn own) date) unknown) (unknown) (no (unknown) (unknown) Magnesium (units (unkn own) date) unknown) (unknown) (no (unknown) (unknown) Magnesium 2.0 (units (unknown) date) unknown) (unknown) (no (unknown) (unknown) Malignancy (units (unk nown) date) w/Treatment within unknown) 6 months or palliative: No (unknown) (no (unknown) (unknown) Measles (units (unkno wn) date) unknown) (unknown) (no (unknown) (unknown) Medical History (units (unknown) date) (Reviewed 03/18/22 unknown) @ 04:05 by JULIETTE Alfred) (unknown) (no (unknown) (unknown) Meds (units (unkno wn) date) unknown) 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) (unknown) (no (unknown) (unknown) [place] # (Auto) (units ( unknown) date) unknown) (unknown) (no (unknown) (unknown) [place] # (Auto) 400 (units (unknown) date) unknown) (unknown) (no (unknown) (unknown) [place] % (Auto) (units ( unknown) date) unknown) (unknown) (no (unknown) (unknown) [place] % (Auto) 7.2 (units (unknown) date) unknown) (unknown) (no (unknown) (unknown) Mother (units (unknown) date) Maternal unknown) complication related to childbirth (unknown) (no (unknown) (unknown) Narrative (units (unkn own) date) unknown) (unknown) (no (unknown) (unknown) Narrative: (units (unk nown) date) unknown) (unknown) (no (unknown) (unknown) Neck: supple, full (units (unknown) date) ROM, no JVD, unknown) trachea is midline (unknown) (no (unknown) (unknown) Neuro: Alert and (units (unknown) date) oriented X 4 w/no unknown) focal deficits. Speech clear and coherent. (unknown) (no (unknown) (unknown) Neut # (Auto) (units ( unknown) date) unknown) (unknown) (no (unknown) (unknown) Neut # (Auto) (units ( unknown) date) 4400 unknown) (unknown) (no (unknown) (unknown) Neut % (Auto) (units ( unknown) date) unknown) (unknown) (no (unknown) (unknown) Neut % (Auto) (units ( unknown) date) 71.1 unknown) (unknown) (no (unknown) (unknown) Objective (units (unkn own) date) unknown) (unknown) (no (unknown) (unknown) Osteoarthritis of (units (unknown) date) knees, bilateral unknown) (unknown) (no (unknown) (unknown) Oxygen Delivery (units (unknown) date) Method Room Air unknown) (unknown) (no (unknown) (unknown) Oxygen Delivery (units (unknown) date) Method Room Air unknown) (unknown) (no (unknown) (unknown) PE is #1 Dx or (units (unknown) date) equally likely: No unknown) (unknown) (no (unknown) (unknown) Patient History (units (unknown) date) unknown) (unknown) (no (unknown) (unknown) Patient is placed (units (unknown) date) into observation as unknown) her stay is not expected to exceed 2 (unknown) (no (unknown) (unknown) Patient: (units (unkno wn) date) Jackie Prather unknown) MR#: (unknown) (no (unknown) (unknown) 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) (unknown) (no (unknown) (unknown) Plt Count (units (unkn own) date) unknown) (unknown) (no (unknown) (unknown) Plt Count 250 (units (unknown) date) unknown) (unknown) (no (unknown) (unknown) Potassium (units (unkn own) date) unknown) (unknown) (no (unknown) (unknown) Potassium 4.5 (units (unknown) date) unknown) (unknown) (no (unknown) (unknown) 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 unknown) (unknown) (no (unknown) (unknown) Pulse Oximetry 96 (units (unknown) date) unknown) (unknown) (no (unknown) (unknown) Pulse Rate 118 H (units (unknown) date) 98 H 82 unknown) (unknown) (no (unknown) (unknown) Quality (units (unkno wn) date) unknown) (unknown) (no (unknown) (unknown) RBC (units (unkno wn) date) unknown) (unknown) (no (unknown) (unknown) RBC 4.32 (units (unkn own) date) unknown) (unknown) (no (unknown) (unknown) RDW (units (unkno wn) date) unknown) (unknown) (no (unknown) (unknown) RDW 14.7 (units (unkn own) date) unknown) (unknown) (no (unknown) (unknown) ROS: Yes All (units (u nknown) date) systems reviewed unknown) with the patient and are negative except as (unknown) (no (unknown) (unknown) Resp: Lungs CTA, (units (unknown) date) non-labored unknown) breathing (unknown) (no (unknown) (unknown) Respiratory Rate (units (unknown) date) 20 unknown) (unknown) (no (unknown) (unknown) Result Diagrams: (units (unknown) date) unknown) (unknown) (no (unknown) (unknown) Result date/Date (units (unknown) date) tested (Pos, unknown) Neg/Pending): 03/18/22 (unknown) (no (unknown) (unknown) Review of Systems (units (unknown) date) unknown) (unknown) (no (unknown) (unknown) Rx (units (unkno wn) date) unknown) (unknown) (no (unknown) (unknown) SARS-CoV-2 (PCR) (units (unknown) date) Negative unknown) (unknown) (no (unknown) (unknown) SARS-CoV-2 (PCR) (units (unknown) date) unknown) (unknown) (no (unknown) (unknown) Safety + (units (unkno wn) date) Behavioral: unknown) (unknown) (no (unknown) (unknown) Scores (units (unkno wn) date) unknown) (unknown) (no (unknown) (unknown) Sex category (units (u nknown) date) (female): Female unknown) (unknown) (no (unknown) (unknown) She recently had a (units (unknown) date) 2 day admission for unknown) adult failure to thrive. She has a (unknown) (no (unknown) (unknown) She was discharged (units (unknown) date) on metoprolol and unknown) losartan. She states she and her son moved (unknown) (no (unknown) (unknown) Signed (units (unkno wn) date) By:<Electronically unknown) signed by Eliana Barry> (unknown) (no (unknown) (unknown) Sister (units (unknown) date) Traumatic unknown) amputation (unknown) (no (unknown) (unknown) Skin: no lesions (units (unknown) date) or rashes, dry and unknown) intact (unknown) (no (unknown) (unknown) Smoking Status (units (unknown) date) Never smoker unknown) (unknown) (no (unknown) (unknown) Social History: (units (unknown) date) unknown) (unknown) (no (unknown) (unknown) Sodium (units (unkno wn) date) unknown) (unknown) (no (unknown) (unknown) Sodium 140 (units (u nknown) date) unknown) (unknown) (no (unknown) (unknown) Speech and (units (unk nown) date) language unknown) 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 (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/12) (unknown) (no (unknown) (unknown) Status post (units (un known) date) arthroscopy unknown) (unknown) (no (unknown) (unknown) Status post biopsy (units (unknown) date) (-2014) unknown) (unknown) (no (unknown) (unknown) Status post breast (units (unknown) date) lumpectomy (-2008) unknown) (unknown) (no (unknown) (unknown) Status post (units (un known) date) cholecystectomy unknown) (unknown) (no (unknown) (unknown) 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 (unknown) (no (unknown) (unknown) Status post (units (un known) date) hysterectomy unknown) (-2009) (unknown) (no (unknown) (unknown) Stroke, TIA, or (units (unknown) date) TE: yes unknown) (unknown) (no (unknown) (unknown) Substance Use Type (units (unknown) date) does not use unknown) (unknown) (no (unknown) (unknown) Surgical History (units (unknown) date) (Reviewed 03/18/22 unknown) @ 04:05 by JULIETTE Alfred) (unknown) (no (unknown) (unknown) 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, NYHA (unknown) (no (unknown) (unknown) Temperature 97.7 F (units (unknown) date) unknown) (unknown) (no (unknown) (unknown) The patient has (units (unknown) date) current or prior unknown) documentation of left ventricular ejection (unknown) (no (unknown) (unknown) Threatened By a (units (unknown) date) Person unknown) (unknown) (no (unknown) (unknown) Tobacco + (units (unkn own) date) Substance use: unknown) (unknown) (no (unknown) (unknown) Total Bilirubin (units (unknown) date) unknown) (unknown) (no (unknown) (unknown) Total Bilirubin (units (unknown) date) 0.9 unknown) (unknown) (no (unknown) (unknown) Total Creatine (units (unknown) date) Kinase unknown) (unknown) (no (unknown) (unknown) Total Creatine (units (unknown) date) Kinase < 20 L unknown) (unknown) (no (unknown) (unknown) Total Protein (units ( unknown) date) unknown) (unknown) (no (unknown) (unknown) Total Protein (units ( unknown) date) 7.6 unknown) (unknown) (no (unknown) (unknown) Troponin I < (units (unknown) date) 0.012 unknown) (unknown) (no (unknown) (unknown) Troponin I < (units ( unknown) date) 0.012 unknown) (unknown) (no (unknown) (unknown) VTE (units (unkno wn) date) unknown) (unknown) (no (unknown) (unknown) VTE Prophylaxis: (units (unknown) date) Wells risk score unknown) 1.5 [X] Bilateral SCDs Patient is currently (unknown) (no (unknown) (unknown) Vascular disease: (units (unknown) date) yes unknown) (unknown) (no (unknown) (unknown) Vital Signs (units (un known) date) unknown) (unknown) (no (unknown) (unknown) WBC (units (unkno wn) date) unknown) (unknown) (no (unknown) (unknown) WBC 6.2 (units (unkno wn) date) unknown) (unknown) (no (unknown) (unknown) Wells' Criteria (units (unknown) date) for PE unknown) (unknown) (no (unknown) (unknown) Wells' PE Score (units (unknown) date) total: 0 unknown) (unknown) (no (unknown) (unknown) [Embedded Image (units (unknown) date) Not Available] unknown) (unknown) (no (unknown) (unknown) [X] I have (units (unk nown) date) utilized all unknown) available immediate resources to obtain, update, or (unknown) (no (unknown) (unknown) alcohol intake (units (unknown) date) never unknown) (unknown) (no (unknown) (unknown) alcohol intake (units (unknown) date) frequency unknown) holiday/special occasion (unknown) (no (unknown) (unknown) ambulance, but (units (unknown) date) does not remember unknown) who. Denies shortness of breath, does endorse (unknown) (no (unknown) (unknown) anticoagulated on (units (unknown) date) Apixaban. unknown) (unknown) (no (unknown) (unknown) apixaban 5 mg (units ( unknown) date) tablet 5 mg PO BID unknown) #180 tabs 03/11/21 02/17/22 Rx (unknown) (no (unknown) (unknown) apixaban, history (units (unknown) date) of heart failure, unknown) hypertension, hyperlipidemia, prior history (unknown) (no (unknown) (unknown) atorvastatin 40 mg (units (unknown) date) tablet 40 mg PO unknown) BEDTIME #90 tabs 12/11/21 02/17/22 Rx (unknown) (no (unknown) (unknown) class 2 (06/05/11) (units (unknown) date) unknown) (unknown) (no (unknown) (unknown) denies having (units ( unknown) date) diarrhea. Positive unknown) for urinary burning and constipation, has not (unknown) (no (unknown) (unknown) diclofenac sodium (units (unknown) date) 1 % topical gel 2 g unknown) topical QID #100 grams 02/03/22 02/17/22 (unknown) (no (unknown) (unknown) enzymes are within (units (unknown) date) normal limits, unknown) troponins x2 are not negative, UA is negative (unknown) (no (unknown) (unknown) enzymes, Mag, (units ( unknown) date) PT/INR unknown) (unknown) (no (unknown) (unknown) for UTI and (units (un known) date) COVID-19 PCR is unknown) negative. (unknown) (no (unknown) (unknown) fraction (LVEF) (units (unknown) date) less than 40%, or unknown) moderate or severely depressed left (unknown) (no (unknown) (unknown) furosemide (units (unk nown) date) [FUROSEMIDE] unknown) Allergy Mild RASH Verified 02/16/22 18:19 (unknown) (no (unknown) (unknown) gabapentin 300 mg (units (unknown) date) capsule 300 mg PO unknown) TID #270 caps 11/18/21 02/17/22 Rx (unknown) (no (unknown) (unknown) had a bm in Patient (units (unknown) date) previously here in unknown) late January for adult failure to thrive, per (unknown) (no (unknown) (unknown) having pain on the (units (unknown) date) left side of her unknown) neck, right arm. Denies nausea or vomiting, (unknown) (no (unknown) (unknown) history of atrial (units (unknown) date) fibrillation and an unknown) echocardiogram was done on February 17 and (unknown) (no (unknown) (unknown) household members (units (unknown) date) children unknown) (unknown) (no (unknown) (unknown) hydrocodone 5 (units ( unknown) date) mg-acetaminophen unknown) 325 1 tab PO BID PRN pain #20 tabs 03/02/22 Rx (unknown) (no (unknown) (unknown) inhalational (units (u nknown) date) spacing device #1 unknown) ea 11/01/19 02/17/22 Rx (unknown) (no (unknown) (unknown) into the house (units (unknown) date) they previously unknown) lived in and had to give up her trailer. (unknown) (no (unknown) (unknown) lisinopril AdvReac (units (unknown) date) Mild Cough Verified unknown) 02/16/22 18:19 (unknown) (no (unknown) (unknown) losartan 50 mg (units (unknown) date) tablet 50 mg PO unknown) DAILY #90 tabs 02/09/22 02/17/22 Rx (unknown) (no (unknown) (unknown) metoprolol (units (unk nown) date) tartrate 25 mg unknown) tablet 12.5 mg PO DAILY #45 tabs 12/11/21 02/17/22 Rx (unknown) (no (unknown) (unknown) mg tablet (units (unkn own) date) unknown) (unknown) (no (unknown) (unknown) midnights. (units (unk nown) date) unknown) (unknown) (no (unknown) (unknown) mucosa pink and (units (unknown) date) moist unknown) (unknown) (no (unknown) (unknown) nitroglycerin 0.4 (units (unknown) date) mg sublingual See unknown) Rx Instructions sublingual PRN 10/26/21 (unknown) (no (unknown) (unknown) nitroglycerin at (units (unknown) date) home and the pain unknown) resolved. States 'someone' called the (unknown) (no (unknown) (unknown) of CVA, presents (units (unknown) date) to the emergency unknown) department with chest pain. She took (unknown) (no (unknown) (unknown) otherwise (units (unkn own) date) documented unknown) (unknown) (no (unknown) (unknown) pantoprazole 40 mg (units (unknown) date) tablet,delayed 40 unknown) mg PO DAILY #90 tabs 02/09/22 02/17/22 Rx (unknown) (no (unknown) (unknown) patient she is (units (unknown) date) living in a better unknown) situation. (unknown) (no (unknown) (unknown) pressure is 202/98 (units (unknown) date) however in the ED unknown) her systolic blood pressure was actually (unknown) (no (unknown) (unknown) release (units (unkno wn) date) unknown) (unknown) (no (unknown) (unknown) review of the (units ( unknown) date) patient's current unknown) medications (unknown) (no (unknown) (unknown) sertraline (units (unk nown) date) [SERTRALINE] unknown) Allergy Mild FEELS Verified 02/16/22 18:19 (unknown) (no (unknown) (unknown) she was found to (units (unknown) date) have an EF of unknown) 35-40% 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 (unknown) (no (unknown) (unknown) tablet (Nitrostat) (units (unknown) date) PRN Chest Pain #30 unknown) tabs (unknown) (no (unknown) (unknown) ventricular (units (un known) date) systolic function.: unknown) Yes (unknown) (no (unknown) (unknown) weighs 62.2 kg (units (unknown) date) with a BMI of 20.2. unknown) CBC and chemistries are unremarkable, liver Result panel 20 (unknown) (no date) (unknown) (unknown) 111 mg/dL (unkn own) (unknown) (no date) (unknown) (unknown) 170 mg/dL (unkn own) (unknown) (no date) (unknown) (unknown) 58 mg/dL (unkn own) (unknown) (no date) (unknown) (unknown) 90 mg/dL (unkn own) Result panel 21 (unknown) (no (unknown) (unknown) 2. This likely is (units (unknown) date) contributing unknown) greatly to problem 1. Continue home (unknown) (no (unknown) (unknown) (no value) (units (unk nown) date) unknown) (unknown) (no (unknown) (unknown) Radiologist's (units ( unknown) date) Impression: unknown) (unknown) (no (unknown) (unknown) Date of Service: (units (unknown) date) 03/18/22 unknown) (unknown) (no (unknown) (unknown) (no value) (units (unk nown) date) unknown) (unknown) (no (unknown) (unknown) <Electronically (units (unknown) date) signed by Jossue unknown) MD Loly> (unknown) (no (unknown) (unknown) 'DRUGGED' (units (unkn own) date) unknown) (unknown) (no (unknown) (unknown) 02/16/22 23:18 (units (unknown) date) unknown) (unknown) (no (unknown) (unknown) 02/17/22 01:58 (units (unknown) date) unknown) (unknown) (no (unknown) (unknown) 02/17/22 02:01 (units (unknown) date) unknown) (unknown) (no (unknown) (unknown) 02/17/22 05:08 (units (unknown) date) unknown) (unknown) (no (unknown) (unknown) 03/17/22 20:07 (units (unknown) date) unknown) (unknown) (no (unknown) (unknown) 03/18/22 1801 (units ( unknown) date) unknown) (unknown) (no (unknown) (unknown) 1. Physical (units (un known) date) debility/deconditio unknown) gelacio (unknown) (no (unknown) (unknown) [address] [place] [address] (units (unknown) date) unknown) (unknown) (no (unknown) (unknown) 3. Atrial (units (unkn own) date) fibrillation unknown) (unknown) (no (unknown) (unknown) 4. 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 Will continue (units (unknown) date) torsemide 20 mg unknown) daily on discharge. (unknown) (no (unknown) (unknown) 5. Hypertension (units (unknown) date) unknown) (unknown) (no (unknown) (unknown) 5. Will resume (units (unknown) date) home losartan 50 mg unknown) daily. (unknown) (no (unknown) (unknown) 6. Conservative (units (unknown) date) management and unknown) encouraged ambulation. (unknown) (no (unknown) (unknown) 6. Constipation (units (unknown) date) with impaction, unknown) improved (unknown) (no (unknown) (unknown) Admin: 03/18/22 (units (unknown) date) 10:47 Dose: 300 mg unknown) (unknown) (no (unknown) (unknown) Allergies (units (unkn own) date) unknown) (unknown) (no (unknown) (unknown) [place], [place] (units ( unknown) date) [id number] unknown) (unknown) (no (unknown) (unknown) Assessment: (units (un known) date) unknown) (unknown) (no (unknown) (unknown) Comment: (units (unkno wn) date) unknown) (unknown) (no (unknown) (unknown) Comment: APS case (units (unknown) date) for neglect unknown) (unknown) (no (unknown) (unknown) Comment: Failure (units (unknown) date) to thrive, needs unknown) placement? (unknown) (no (unknown) (unknown) Comment: Prior (units (unknown) date) CVA, mild unknown) dysarthria, syncopal episode (unknown) (no (unknown) (unknown) Comment: Prior (units (unknown) date) CVA, syncopal unknown) episode (unknown) (no (unknown) (unknown) Comment: Prior (units (unknown) date) CVA, syncopal unknown) episode, cognitive eval (unknown) (no (unknown) (unknown) Consult to (units (unk nown) date) Dietitian, Adult unknown) Routine (unknown) (no (unknown) (unknown) Consult to (units (unk nown) date) Discharge Planning unknown) Routine (unknown) (no (unknown) (unknown) Consult to [employer] - (units (unknown) 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) Routine (unknown) (no (unknown) (unknown) Consult to (units (unk nown) date) Occupational unknown) Therapy Evaluate + Treat (unknown) (no (unknown) (unknown) Consult to (units (unk nown) date) Physical Therapy unknown) Evaluate + Treat (unknown) (no (unknown) (unknown) Consult to Social (units (unknown) date) Services Routine unknown) (unknown) (no (unknown) (unknown) Consult to Speech (units (unknown) date) Therapy Evaluate + unknown) Treat (unknown) (no (unknown) (unknown) Discharge (units (unkn own) date) Diagnosis: unknown) (unknown) (no (unknown) (unknown) Discharge Summary (units (unknown) date) unknown) (unknown) (no (unknown) (unknown) Discharge (units (unkn own) date) provider: unknown) (unknown) (no (unknown) (unknown) Documented By: EB (units (unknown) date) unknown) (unknown) (no (unknown) (unknown) Documented By: EJ (units (unknown) date) unknown) (unknown) (no (unknown) (unknown) Documented By: HNG (units (unknown) date) unknown) (unknown) (no (unknown) (unknown) Documented By: KEB (units (unknown) date) unknown) (unknown) (no (unknown) (unknown) Documented By: NR (units (unknown) date) unknown) (unknown) (no (unknown) (unknown) Echocardiography (units (unknown) date) Report unknown) (unknown) (no (unknown) (unknown) Emergency Report (units (unknown) date) unknown) (unknown) (no (unknown) (unknown) Soo Singh MD (units (unknown) date) unknown) (unknown) (no (unknown) (unknown) Hospital Course (units (unknown) date) unknown) (unknown) (no (unknown) (unknown) [facility] (units (unknown) date) unknown) (unknown) (no (unknown) (unknown) [facility] (units (unknown) date) [address] unknown) [place] [address] (unknown) (no (unknown) (unknown) Lab Results (units (un known) date) unknown) (unknown) (no (unknown) (unknown) Last Admin: (units (un known) date) 03/17/22 22:13 unknown) Dose: 243 mg (unknown) (no (unknown) (unknown) Last Admin: (units (un known) date) 03/18/22 00:06 unknown) Dose: 25 mg (unknown) (no (unknown) (unknown) Last Admin: (units (un known) date) 03/18/22 00:06 unknown) Dose: 5 mg (unknown) (no (unknown) (unknown) Last Admin: (units (un known) date) 03/18/22 06:14 unknown) Dose: 50 mg (unknown) (no (unknown) (unknown) Last Admin: (units (un known) date) 03/18/22 10:46 unknown) Dose: 40 mg (unknown) (no (unknown) (unknown) Last Admin: (units (un known) date) 03/18/22 10:46 unknown) Dose: 5 mg (unknown) (no (unknown) (unknown) Last Admin: (units (un known) date) 03/18/22 16:00 unknown) Dose: 300 mg (unknown) (no (unknown) (unknown) Last Admin: (units (un known) date) 03/18/22 16:20 unknown) Dose: 650 mg (unknown) (no (unknown) (unknown) PRN Reason: Chest (units (unknown) date) Pain unknown) (unknown) (no (unknown) (unknown) PRN Reason: (units (un known) date) Fever/Mild Pain unknown) (1-3) (unknown) (no (unknown) (unknown) PRN Reason: Nausea (units (unknown) date) And Vomiting unknown) (unknown) (no (unknown) (unknown) PRN Reason: Opiate (units (unknown) date) Reversal unknown) (unknown) (no (unknown) (unknown) PRN Reason: Pain, (units (unknown) date) Moderate (4-6) unknown) (unknown) (no (unknown) (unknown) Physician (units (unkn own) date) Instructions: unknown) Evaluate and Treat (unknown) (no (unknown) (unknown) Physician (units (unkn own) date) Instructions: unknown) Evaluate and treat (unknown) (no (unknown) (unknown) Plan: (units (unkno wn) date) unknown) (unknown) (no (unknown) (unknown) Previous Rx's (units ( unknown) date) unknown) (unknown) (no (unknown) (unknown) Reason For Exam: (units (unknown) date) malnutrition + no unknown) teeth (unknown) (no (unknown) (unknown) Signed (units (unkno wn) date) unknown) (unknown) (no (unknown) (unknown) Stop: 03/17/22 (units (unknown) date) 21:32 unknown) (unknown) (no (unknown) (unknown) Stop: 03/17/22 (units (unknown) date) 23:33 unknown) (unknown) (no (unknown) (unknown) Summary (units (unkno wn) date) unknown) (unknown) (no (unknown) (unknown) Urine Dip (units (unkn own) date) unknown) (unknown) (no (unknown) (unknown) Vital Signs - 8 hr (units (unknown) date) unknown) (unknown) (no (unknown) (unknown) XRay Report (units (un known) date) unknown) (unknown) (no (unknown) (unknown) (no value) (units (unk nown) date) unknown) (unknown) (no (unknown) (unknown) ADDENDUMAs an (units (unknown) date) addendum to the unknown) assessment and plan portion of this note, (unknown) (no (unknown) (unknown) 01:30 01:30 02:34 (units (unknown) date) unknown) (unknown) (no (unknown) (unknown) 03/17/22 03/17/22 (units (unknown) date) 03/17/22 unknown) Range/Units (unknown) (no (unknown) (unknown) 03/18/22 03/18/22 (units (unknown) date) 03/18/22 unknown) Range/Units (unknown) (no (unknown) (unknown) 20:07 20:07 22:12 (units (unknown) date) unknown) (unknown) (no (unknown) (unknown) 03/17/22 (units (unkno wn) date) unknown) (unknown) (no (unknown) (unknown) 3. Will continue (units (unknown) date) Eliquis 5 mg bid unknown) for anticoagulation, with Lopressor 12.5 mg (unknown) (no (unknown) (unknown) Chest pain (units (unk nown) date) unknown) (unknown) (no (unknown) (unknown) Medication (units (unk nown) date) Instructions unknown) Recorded (unknown) (no (unknown) (unknown) Patient is awake (units (unknown) date) alert oriented x3. unknown) (unknown) (no (unknown) (unknown) and below (units (unkn own) date) unknown) (unknown) (no (unknown) (unknown) chest pain, st (units (unknown) date) elevation unknown) myocardial infarction and chest pain (unknown) (no (unknown) (unknown) rales, or rhonchi. (units (unknown) date) unknown) (unknown) (no (unknown) (unknown) <Electronically (units (unknown) date) signed by Soo unknown) MD Francisco> (unknown) (no (unknown) (unknown) (12/05/17) (units (unk nown) date) unknown) (unknown) (no (unknown) (unknown) (Aerochamber MV (units (unknown) date) spacer) unknown) (unknown) (no (unknown) (unknown) (Neurontin) (units (un known) date) unknown) (unknown) (no (unknown) (unknown) +---------+? (units (unknown) date) ? unknown) [phone]? +---------+ (unknown) (no (unknown) (unknown) +---------+? (units (unknown) date) ? unknown) Hospital? +---------+ (unknown) (no (unknown) (unknown) + (units (unknown) date) unknown) ---+ (unknown) (no (unknown) (unknown) 00:06 03/18/22 (units (unknown) date) unknown) (unknown) (no (unknown) (unknown) 01:00 (units (unkno wn) date) unknown) (unknown) (no (unknown) (unknown) 02/16/22 21:54 (units (unknown) date) unknown) (unknown) (no (unknown) (unknown) 02/20/22 1321 (units ( unknown) date) unknown) (unknown) (no (unknown) (unknown) 1. 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 (unknown) (no (unknown) (unknown) 1. Physical (units (un known) date) debility/deconditio unknown) gelacio (unknown) (no (unknown) (unknown) 1. This is likely (units (unknown) date) a function of unknown) advancing age and sedentary status at home. The (unknown) (no (unknown) (unknown) 1. This is likely (units (unknown) date) a function of unknown) advancing age and sedentary status at home. 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 This likely is (units (unknown) date) contributing unknown) greatly to problem 1. Continue home (unknown) (no (unknown) (unknown) 215-1 (units (unkno wn) date) unknown) (unknown) (no (unknown) (unknown) 21:05 03/18/22 (units (unknown) date) unknown) (unknown) (no (unknown) (unknown) 3. Atrial (units (unkn own) date) fibrillation unknown) (unknown) (no (unknown) (unknown) 3. Will continue (units (unknown) date) Eliquis 5 mg bid unknown) for anticoagulation, with Lopressor 12.5 mg (unknown) (no (unknown) (unknown) 4. 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 Will continue (units (unknown) date) torsemide 20 mg unknown) daily on discharge. (unknown) (no (unknown) (unknown) 5. Hypertension (units (unknown) date) unknown) (unknown) (no (unknown) (unknown) 5. Will resume (units (unknown) date) home losartan 50 mg unknown) daily. (unknown) (no (unknown) (unknown) 6. Conservative (units (unknown) date) management and unknown) encouraged ambulation. (unknown) (no (unknown) (unknown) 6. Constipation (units (unknown) date) with impaction, unknown) improved (unknown) (no (unknown) (unknown) : ? : ? ? ? (units (unknown) date) ? unknown) Phone: 360-? : ? : (unknown) (no (unknown) (unknown) : ? :? (units (unknown) date) ? 1211 unknown) . ? : ? : (unknown) (no (unknown) (unknown) : ? :? (units (unknown) date) ? unknown) [id number] ? : ? : (unknown) (no (unknown) (unknown) : ? :? (units (unknown) date) ? unknown) DIOGENES Chen ? : ? : (unknown) (no (unknown) (unknown) :Account #: (units (un known) date) [id number]? unknown) Gender: Female ? BSA: 1.7 m2? ? : (unknown) (no (unknown) (unknown) :: 1935? (units (unknown) date) ? Age: unknown) 86 yrs? BP: 184/97 mmHg: (unknown) (no (unknown) (unknown) :Hospital MRN #: (units (unknown) date) [id number] ? ? unknown) ReadingLocation: ? Weight: 128 lb : (unknown) (no (unknown) (unknown) :Name: YAMILKA, (units (unknown) date) JACKIE Barba? ? ? unknown) Study Date: 02/17/2022 ? Height: 67 in? : (unknown) (no (unknown) (unknown) :Ordering (units (unkn own) date) Physician: ozzy BARRY) DEBRAPerformed By: Lyly Casanova? : (unknown) (no (unknown) (unknown) :Reason For Study: (units (unknown) date) CVA? unknown) ? : (unknown) (no (unknown) (unknown) :Referring: ASHA (units (unknown) date) ELIANA ? unknown) ? : (unknown) (no (unknown) (unknown) ? (units (unkno wn) date) unknown) (unknown) (no (unknown) (unknown) ? (units (unknown) date) ? unknown) ? Date of (unknown) (no (unknown) (unknown) ? (units (unknown) date) ? unknown) [place] (unknown) (no (unknown) (unknown) ? (units (unknown) date) Electronically unknown) signed by: Charlie Clemente on 02/17/2022 09:11 (unknown) (no (unknown) (unknown) ? (units (unkno wn) date) unknown) (unknown) (no (unknown) (unknown) ? (units (unknown) date) ? unknown) sev ratio: 0.49 (unknown) (no (unknown) (unknown) ? (units (unknown) date) ? unknown) Echocardiogram Report (unknown) (no (unknown) (unknown) ALT (<35) (units ( unknown) date) IU/L unknown) (unknown) (no (unknown) (unknown) ALT 10 (<35) (units (unknown) date) IU/L unknown) (unknown) (no (unknown) (unknown) AST (14-36) (units (unknown) date) IU/L unknown) (unknown) (no (unknown) (unknown) AST 26 (14-36) (units (unknown) date) IU/L unknown) (unknown) (no (unknown) (unknown) Abdominal pain (units (unknown) date) unknown) (unknown) (no (unknown) (unknown) Accession Number: (units (unknown) date) [id number] ?? unknown) (unknown) (no (unknown) (unknown) Accession Number: (units (unknown) date) [id number] ?? unknown) (unknown) (no (unknown) (unknown) Acct:[id number] (units (unknown) date) unknown) (unknown) (no (unknown) (unknown) Acct:[id number] (units (unknown) date) unknown) (unknown) (no (unknown) (unknown) Acetaminophen (units ( unknown) date) (Acetaminophen 325 unknown) Mg Tablet) 650 mg PO Q6HR PRN (unknown) (no (unknown) (unknown) Acute pancreatitis (units (unknown) date) unknown) (unknown) (no (unknown) (unknown) Addendum (units (o wn) date) Documented By: unknown) (unknown) (no (unknown) (unknown) Addendum Signed (units (unknown) date) By: unknown) (unknown) (no (unknown) (unknown) Admit Date/Time: (units (unknown) date) 03/18/22 02:55 unknown) (unknown) (no (unknown) (unknown) Admit Provider: (units (unknown) date) Eliana Barry unknown) (unknown) (no (unknown) (unknown) Age/Sex: 86 / F (units (unknown) date) unknown) (unknown) (no (unknown) (unknown) Age/Sex: 86 / F (units (unknown) date) unknown) (unknown) (no (unknown) (unknown) Albumin (units (o wn) date) (3.5-5.0) g/dL unknown) (unknown) (no (unknown) (unknown) Albumin 4.1 (units ( unknown) date) (3.5-5.0) g/dL unknown) (unknown) (no (unknown) (unknown) Albumin/Globulin (units (unknown) date) Ratio (1.0-2.8) unknown) (unknown) (no (unknown) (unknown) Albumin/Globulin (units (unknown) date) Ratio 1.2 unknown) (1.0-2.8) (unknown) (no (unknown) (unknown) Alkaline (units (o wn) date) Phosphatase unknown) (38-126) U/L (unknown) (no (unknown) (unknown) Alkaline (units (o wn) date) Phosphatase 116 unknown) (38-126) U/L (unknown) (no (unknown) (unknown) Allergy/AdvReac (units (unknown) date) Type Severity unknown) Reaction Status Date / Time (unknown) (no (unknown) (unknown) Anesthesia (units (unk nown) date) unknown) (unknown) (no (unknown) (unknown) Anticoagulated (units (unknown) date) unknown) (unknown) (no (unknown) (unknown) Anxiety (units (unkno wn) date) unknown) (unknown) (no (unknown) (unknown) Ao V2 VTI: 24.6 cm (units (unknown) date) ? unknown) SALO(V,D): 1.4 cm2 (unknown) (no (unknown) (unknown) Ao V2 max: 137.4 (units (unknown) date) cm/sec? unknown) LVOT Max Benjamin: 61.4 cm/sec (unknown) (no (unknown) (unknown) Ao V2 mean: 98.4 (units (unknown) date) cm/sec? LV unknown) V1 max P.5 mmHg (unknown) (no (unknown) (unknown) Ao max P.6 (units (unknown) date) mmHg? unknown) LV V1 VTI: 11.9 cm (unknown) (no (unknown) (unknown) Ao mean P.3 (units (unknown) date) mmHg ? unknown) SALO(I,D): 1.5 cm2 (unknown) (no (unknown) (unknown) Aortic Valve: ? (units (unknown) date) The aortic valve is unknown) mildly calcified. There is no (unknown) (no (unknown) (unknown) Apixaban (Apixaban (units (unknown) date) 5 Mg Tablet) 5 mg unknown) PO BID DENILSON (unknown) (no (unknown) (unknown) Apixaban (Apixaban (units (unknown) date) 5 Mg Tablet) 5 mg unknown) PO NOW ONE (unknown) (no (unknown) (unknown) Appropriate for (units (unknown) date) admission. Will unknown) need stress test. Review with Cardiology and (unknown) (no (unknown) (unknown) Approved by: (units (u nknown) date) Hemant Marvin, unknownShruti Winkler on 03/17/2022 at 23:01 ? 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 The left (units (unknown) date) atrium is severely unknown) dilated. The right atrium is severely (unknown) (no (unknown) (unknown) Atrial (units (unkno wn) date) fibrillation rate unknown) [address] elevation or depression (unknown) (no (unknown) (unknown) BACK: No flank (units (unknown) date) tenderness. unknown) (unknown) (no (unknown) (unknown) BUN (7-17) (units (unknown) date) mg/dL unknown) (unknown) (no (unknown) (unknown) BUN 18 H (units (unk nown) date) (7-17) mg/dL unknown) (unknown) (no (unknown) (unknown) BUN/Creatinine (units (unknown) date) Ratio (6-22) unknown) (unknown) (no (unknown) (unknown) BUN/Creatinine (units (unknown) date) Ratio 20.7 unknown) (6-22) (unknown) (no (unknown) (unknown) Baso # (Auto) (units ( unknown) date) (0-100) /uL unknown) (unknown) (no (unknown) (unknown) Baso # (Auto) 0 (units (unknown) date) (0-100) /uL unknown) (unknown) (no (unknown) (unknown) Baso % (Auto) (units ( unknown) date) (0-2) % unknown) (unknown) (no (unknown) (unknown) Baso % (Auto) 0.7 (units (unknown) date) (0-2) % unknown) (unknown) (no (unknown) (unknown) Bedside Urine (units ( unknown) date) Bilirubin - unknown) Negative (unknown) (no (unknown) (unknown) Bedside Urine (units ( unknown) date) Glucose Negative unknown) (unknown) (no (unknown) (unknown) Bedside Urine (units ( unknown) date) Ketone +/- 5 unknown) (unknown) (no (unknown) (unknown) Bedside Urine (units ( unknown) date) Leukocytes - unknown) Negative (unknown) (no (unknown) (unknown) Bedside Urine (units ( unknown) date) Nitrite - unknown) Negative (unknown) (no (unknown) (unknown) Bedside Urine (units ( unknown) date) Occult Blood - unknown) Negative (unknown) (no (unknown) (unknown) Bedside Urine (units ( unknown) date) Protein ++ 100 unknown) (unknown) (no (unknown) (unknown) Bedside Urine (units ( unknown) date) Urobilinogen unknown) +/- 1mg (unknown) (no (unknown) (unknown) Bedside Urine pH (units (unknown) date) 6.0 unknown) (unknown) (no (unknown) (unknown) Blood Pressure (units (unknown) date) 201/119 H 191/91 H unknown) 202/98 H (unknown) (no (unknown) (unknown) Bones and chest (units (unknown) date) wall:? No unknown) suspicious bony lesions.? 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) unknown) (unknown) (no (unknown) (unknown) CARDIOVASCULAR: (units (unknown) date) Positive for chest unknown) pain, negative for palpitations (unknown) (no (unknown) (unknown) CARDIOVASCULAR: (units (unknown) date) Regular rate and unknown) rhythm without murmurs (unknown) (no (unknown) (unknown) CK-MB (CK-2) (units (u nknown) date) unknown) (unknown) (no (unknown) (unknown) CK-MB (CK-2) TNP (units (unknown) date) unknown) (unknown) (no (unknown) (unknown) CK-MB (CK-2) Rel (units (unknown) date) Index unknown) (unknown) (no (unknown) (unknown) CK-MB (CK-2) Rel (units (unknown) date) Index TNP unknown) (unknown) (no (unknown) (unknown) COMPARISON:? (units (u nknown) date) [facility], unknown) CR, XR CHEST 1V, 02/13/2022, 20:46. (unknown) (no (unknown) (unknown) CT of the head did (units (unknown) date) report prior unknown) cortical and subcortical encephalomalacia on the (unknown) (no (unknown) (unknown) Calcified nodule (units (unknown) date) unknown) (unknown) (no (unknown) (unknown) Calcium (units (unkno wn) date) (8.4-10.2) mg/dL unknown) (unknown) (no (unknown) (unknown) Calcium 9.1 (units ( unknown) date) (8.4-10.2) mg/dL unknown) (unknown) (no (unknown) (unknown) Carbon Dioxide (units (unknown) date) (22-32) mmol/L unknown) (unknown) (no (unknown) (unknown) Carbon Dioxide (units (unknown) date) 27 (22-32) unknown) mmol/L (unknown) (no (unknown) (unknown) Jackie Prather (units (unknown) date) is an 86-year-old unknown) female with a history of chronic abdominal (unknown) (no (unknown) (unknown) 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 (unknown) (no (unknown) (unknown) Cervical cancer, (units (unknown) date) FIGO stage I unknown) (unknown) (no (unknown) (unknown) Chest x-ray: (units (u nknown) date) unknown) (unknown) (no (unknown) (unknown) Chief Complaint: (units (unknown) date) Chest Pain unknown) (unknown) (no (unknown) (unknown) Chief complaint: (units (unknown) date) Decreased LOC unknown) (unknown) (no (unknown) (unknown) Chloride (units (unkno wn) date) (98-107) mmol/L unknown) (unknown) (no (unknown) (unknown) Chloride 103 (units (unknown) date) (98-107) mmol/L unknown) (unknown) (no (unknown) (unknown) Cholelithiasis (units (unknown) date) unknown) (unknown) (no (unknown) (unknown) Cholesterol (units (un known) date) (140-199) mg/dL unknown) (unknown) (no (unknown) (unknown) Cholesterol 170 (units (unknown) date) (140-199) mg/dL unknown) (unknown) (no (unknown) (unknown) Chronic back pain (units (unknown) date) unknown) (unknown) (no (unknown) (unknown) Clinical (units (unkno wn) date) Impression: unknown) (unknown) (no (unknown) (unknown) Comparison is made (units (unknown) date) with the unknown) echocardiogram of 08/17/2019. The patient was in (unknown) (no (unknown) (unknown) Consultation #1: (units (unknown) date) unknown) (unknown) (no (unknown) (unknown) Consultation #2: (units (unknown) date) unknown) (unknown) (no (unknown) (unknown) Consultations (units ( unknown) date) unknown) (unknown) (no (unknown) (unknown) Consults: (units (unkn own) date) unknown) (unknown) (no (unknown) (unknown) Course (units (unkno wn) date) unknown) (unknown) (no (unknown) (unknown) Course Narrative: (units (unknown) date) unknown) (unknown) (no (unknown) (unknown) Creatinine (units (unk nown) date) (0.52-1.04) mg/dL unknown) (unknown) (no (unknown) (unknown) Creatinine 0.87 (units (unknown) date) (0.52-1.04) mg/dL unknown) (unknown) (no (unknown) (unknown) : 1935 (units (unknown) date) Acct:[id number] unknown) (unknown) (no (unknown) (unknown) : 1935 (units (unknown) date) unknown) (unknown) (no (unknown) (unknown) Date of Service: (units (unknown) date) 02/17/22 unknown) (unknown) (no (unknown) (unknown) Date of Service: (units (unknown) date) 03/17/22 unknown) (unknown) (no (unknown) (unknown) Date of admission: (units (unknown) date) unknown) (unknown) (no (unknown) (unknown) Decision to Admit (units (unknown) date) Date: 03/18/22 unknown) (unknown) (no (unknown) (unknown) Decision to Admit (units (unknown) date) time: 02:42 unknown) (unknown) (no (unknown) (unknown) Departure (units (unkn own) date) unknown) (unknown) (no (unknown) (unknown) Developmental (units ( unknown) date) disorder unknown) (unknown) (no (unknown) (unknown) Diarrhea (units (unkno wn) date) unknown) (unknown) (no (unknown) (unknown) Dictated by: (units (u nknown) date) Hemant Marvin unknownShruti Winkler on 03/17/2022 at 23:00 ? ? (unknown) (no (unknown) (unknown) Differential (units (u nknown) date) Diagnosis unknown) (unknown) (no (unknown) (unknown) Differential (units (un known) date) diagnosis: Likely unknown) stable angina, unstable angina pectoris, atypical (unknown) (no (unknown) (unknown) Discharge (units (unkn own) date) Assessment + Plan unknown) (unknown) (no (unknown) (unknown) Discharge Date: (units (unknown) date) 02/19/22 unknown) (unknown) (no (unknown) (unknown) Discharge Plan (units (unknown) date) unknown) (unknown) (no (unknown) (unknown) Discharge (units (unkn own) date) Providers unknown) (unknown) (no (unknown) (unknown) Discontinued (units (u nknown) date) Medications unknown) (unknown) (no (unknown) (unknown) Doppler (units (unkno wn) date) Measurements + unknown) Calculations (unknown) (no (unknown) (unknown) E/E' lat: 10.4 (units (unknown) date) unknown) (unknown) (no (unknown) (unknown) E/E' med: 16.6 ? ? (units (unknown) date) ? PA unknown) mean P.8 mmHg (unknown) (no (unknown) (unknown) E/e' average: 13.5 (units (unknown) date) unknown) (unknown) (no (unknown) (unknown) ECG Data (units (unkno wn) date) unknown) (unknown) (no (unknown) (unknown) ENT: Mucous (units (u nknown) date) membranes moist. unknown) (unknown) (no (unknown) (unknown) ER Physician: (units ( unknown) date) Jossue Salcido MD unknown) (unknown) (no (unknown) (unknown) EXTREMITIES: No (units (unknown) date) gross deformities. unknown) (unknown) (no (unknown) (unknown) EYES: Pupils equal (units (unknown) date) round No scleral unknown) icterus. (unknown) (no (unknown) (unknown) Eos # (Auto) (units (u nknown) date) (0-450) /uL unknown) (unknown) (no (unknown) (unknown) Eos # (Auto) 0 (units (unknown) date) (0-450) /uL unknown) (unknown) (no (unknown) (unknown) Eos % (Auto) (units (u nknown) date) (2-4) % unknown) (unknown) (no (unknown) (unknown) Eos % (Auto) 0.8 (units (unknown) date) L (2-4) % unknown) (unknown) (no (unknown) (unknown) Essential (units (unkn own) date) hypertension unknown) (09/28/12) (unknown) (no (unknown) (unknown) Esterase (units (unkno wn) date) unknown) (unknown) (no (unknown) (unknown) Estimated GFR (units ( unknown) date) (>60) mL/min unknown) (unknown) (no (unknown) (unknown) Estimated GFR > (units (unknown) date) 60 (>60) mL/min unknown) (unknown) (no (unknown) (unknown) Exam (units (unkno wn) date) unknown) (unknown) (no (unknown) (unknown) Exam Narrative: (units (unknown) date) unknown) (unknown) (no (unknown) (unknown) FINDINGS:? (units (unk nown) date) unknown) (unknown) (no (unknown) (unknown) FS: 18.5 %? (units (unknown) date) ? unknown) ? asc Aorta Diam: 3.2 cm (unknown) (no (unknown) (unknown) Failure to thrive (units (unknown) date) in adult unknown) (unknown) (no (unknown) (unknown) Family History (units (unknown) date) (Reviewed 03/18/22 unknown) @ 04:05 by JULIETTE Alfred) (unknown) (no (unknown) (unknown) Father (units (unknown) date) Myocardial infarct unknown) (unknown) (no (unknown) (unknown) Fibrocystic breast (units (unknown) date) disease unknown) (unknown) (no (unknown) (unknown) GASTROINTESTINAL: (units (unknown) date) Abdomen soft, unknown) non-tender (unknown) (no (unknown) (unknown) GASTROINTESTINAL: (units (unknown) date) Denies nausea, unknown) vomiting, abdominal pain (unknown) (no (unknown) (unknown) GENERAL: Denies (units (unknown) date) chills, fatigue, unknown) malaise, fever, sweats. (unknown) (no (unknown) (unknown) GENERAL: in no (units (unknown) date) distress, not toxic unknown) not dyspneic (unknown) (no (unknown) (unknown) GERD (units (unkno wn) date) (gastroesophageal unknown) reflux disease) (unknown) (no (unknown) (unknown) : Denies (units (unk nown) date) dysuria, frequency, unknown) hematuria (unknown) (no (unknown) (unknown) Gabapentin (units (unk nown) date) (Gabapentin 300 Mg unknown) Capsule) 300 mg PO TID DENILSON (unknown) (no (unknown) (unknown) Alyssa Robison MD (units (unknown) date) unknown) (unknown) (no (unknown) (unknown) General (units (unkno wn) date) unknown) (unknown) (no (unknown) (unknown) GenericComposite[?? (units (unknown) date) ? unknown) ? SALO indexed to BSA (cm^2/m^2): 0.90 ] (unknown) (no (unknown) (unknown) GenericComposite[L (units (unknown) date) V cage. unknown) diameter/BSA (cm/m^2): 2.9 ] (unknown) (no (unknown) (unknown) GenericComposite[L (units (unknown) date) V sys. diameter/BSA unknown) (cm/m^2): 2.4 ] (unknown) (no (unknown) (unknown) GenericComposite[P (units (unknown) date) lt Count unknown) (150-400) X10^3/uL ] (unknown) (no (unknown) (unknown) GenericComposite[P (units (unknown) date) lt Count 250 unknown) (150-400) X10^3/uL ] (unknown) (no (unknown) (unknown) GenericComposite[R (units (unknown) date) BC (4.0-5.2) unknown) X10^6/uL ] (unknown) (no (unknown) (unknown) GenericComposite[R (units (unknown) date) BC 4.32 unknown) (4.0-5.2) X10^6/uL ] (unknown) (no (unknown) (unknown) GenericComposite[W (units (unknown) date) BC (4.5-11.0) unknown) X10^3/uL ] (unknown) (no (unknown) (unknown) GenericComposite[W (units (unknown) date) BC 6.2 unknown) (4.5-11.0) X10^3/uL ] (unknown) (no (unknown) (unknown) Globulin (units (unkno wn) date) (1.7-4.1) g/dL unknown) (unknown) (no (unknown) (unknown) Globulin 3.5 (units (unknown) date) (1.7-4.1) g/dL unknown) (unknown) (no (unknown) (unknown) Glucose (units (unkno wn) date) (80-110) mg/dL unknown) (unknown) (no (unknown) (unknown) Glucose 99 (units (u nknown) date) (80-110) mg/dL unknown) (unknown) (no (unknown) (unknown) Great Vessels: ? (units (unknown) date) The aortic root is unknown) normal size. The dimensions of the (unknown) (no (unknown) (unknown) HDL Cholesterol (units (unknown) date) (40-60) mg/dL unknown) (unknown) (no (unknown) (unknown) HDL Cholesterol (units (unknown) date) 58 (40-60) mg/dL unknown) (unknown) (no (unknown) (unknown) HEAD: (units (unkno wn) date) Normocephalic. unknown) (unknown) (no (unknown) (unknown) HEART Score (units (un known) date) unknown) (unknown) (no (unknown) (unknown) HEENT: Denies (units ( unknown) date) sinus pain, ear unknown) pain, sore throat (unknown) (no (unknown) (unknown) HPI - Chest Pain (units (unknown) date) unknown) (unknown) (no (unknown) (unknown) HPI narrative: (units (unknown) date) unknown) (unknown) (no (unknown) (unknown) Handicap Parking (units (unknown) date) #1 ea 01/12/19 unknown) (unknown) (no (unknown) (unknown) Soo Singh MD (units (unknown) date) unknown) (unknown) (no (unknown) (unknown) Hct (36-46) % (units (unknown) date) unknown) (unknown) (no (unknown) (unknown) Hct 39.2 (units (unkn own) date) (36-46) % unknown) (unknown) (no (unknown) (unknown) Heart Score Age: > (units (unknown) date) or = 65 years old unknown) (unknown) (no (unknown) (unknown) Heart Score EKG: (units (unknown) date) Non-Specific unknown) repolarization disturbance (unknown) (no (unknown) (unknown) Heart Score Total: (units (unknown) date) 7 unknown) (unknown) (no (unknown) (unknown) Heart Score (units (un known) date) history: Highly unknown) Suspicious (unknown) (no (unknown) (unknown) Heart Score risk (units (unknown) date) factors: > 3 risk unknown) factors or hx of atherosclerotic disease (unknown) (no (unknown) (unknown) Heart Score (units (un known) date) troponin: < or = to unknown) normal limit (unknown) (no (unknown) (unknown) Hgb (units (unkno wn) date) (12.0-16.0) g/dL unknown) (unknown) (no (unknown) (unknown) Hgb 13.0 (units (unkn own) date) (12.0-16.0) g/dL unknown) (unknown) (no (unknown) (unknown) History of Present (units (unknown) date) Illness unknown) (unknown) (no (unknown) (unknown) History of colon (units (unknown) date) polyps (09/28/12) unknown) (unknown) (no (unknown) (unknown) History of left (units (unknown) date) breast cancer unknown) (-2008) (unknown) (no (unknown) (unknown) Hyaline Casts (units ( unknown) date) (None) unknown) (unknown) (no (unknown) (unknown) Hyaline Casts (units ( unknown) date) 0-1/lpf (None) unknown) (unknown) (no (unknown) (unknown) Hyperlipidemia (units (unknown) date) unknown) 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 (units (u nknown) date) unknown) (unknown) (no (unknown) (unknown) INDICATIONS:? (units ( unknown) date) chest pain unknown) (unknown) (no (unknown) (unknown) IVSd: 1.1 cm (units (u nknown) date) unknown) (unknown) (no (unknown) (unknown) Imaging Data (units (u nknown) date) unknown) (unknown) (no (unknown) (unknown) Initial Vital (units ( unknown) date) Signs unknown) (unknown) (no (unknown) (unknown) Initial Vital (units ( unknown) date) Signs: unknown) (unknown) (no (unknown) (unknown) Interpretation (units (unknown) date) Summary unknown) (unknown) (no (unknown) (unknown) Interpretation: (units (unknown) date) unknown) (unknown) (no (unknown) (unknown) LA A2 area: 27.3 (units (unknown) date) cm2? unknown) ? RA long axis: 6.0 cm (unknown) (no (unknown) (unknown) LA A4 area: 30.0 (units (unknown) date) cm2? unknown) ? RA area: 23.9 cm2 (unknown) (no (unknown) (unknown) LA length (vol): (units (unknown) date) 6.6 cm ? unknown) ? RA vol: 80.6 ml (unknown) (no (unknown) (unknown) LA vol index: 63.5 (units (unknown) date) ml/m2? unknown) ? IVC diam: 1.4 cm (unknown) (no (unknown) (unknown) LA vol: 106.2 ml? (units (unknown) date) ? unknown) ? RA : 48.2 ml/m2 (unknown) (no (unknown) (unknown) LDL Cholesterol, (units (unknown) date) Calc (<100) unknown) mg/dL (unknown) (no (unknown) (unknown) LDL Cholesterol, (units (unknown) date) Calc 90 (<100) unknown) mg/dL (unknown) (no (unknown) (unknown) LVIDd: 4.9 cm ? ? (units (unknown) date) ? unknown) ? LVOT diam: 2.0 cm (unknown) (no (unknown) (unknown) LVIDs: 4.0 cm ? ? (units (unknown) date) ? unknown) ? Ao root diam: 3.2 cm (unknown) (no (unknown) (unknown) LVPWd: 0.96 cm (units (unknown) date) unknown) (unknown) (no (unknown) (unknown) Lab Data (units (unkno wn) date) unknown) (unknown) (no (unknown) (unknown) Labs: (units (unkno wn) date) unknown) (unknown) (no (unknown) (unknown) Lat Peak E' Benjamin: (units (unknown) date) 9.3 cm/sec? ? ? PA unknown) pr(Accel): 44.7 mmHg (unknown) (no (unknown) (unknown) Left Ventricle: ? (units (unknown) date) The left ventricle unknown) is normal in size and wall thickness. The (unknown) (no (unknown) (unknown) Limitations: (units (u nknown) date) altered mental unknown) status (unknown) (no (unknown) (unknown) Lipase (units (unkno wn) date) (23-300) U/L unknown) (unknown) (no (unknown) (unknown) Lipase 45 (units (un known) date) (23-300) U/L unknown) (unknown) (no (unknown) (unknown) Loc: AC (units (unkno wn) date) unknown) (unknown) (no (unknown) (unknown) Loc: ED (units (unkno wn) date) unknown) (unknown) (no (unknown) (unknown) Losartan Potassium (units (unknown) date) (Losartan 50 Mg unknown) Tablet) 50 mg PO DAILY [facility]ILSON (unknown) (no (unknown) (unknown) Lungs and pleura:? (units (unknown) date) There is unknown) hyperinflation of the lungs with flattening of the (unknown) (no (unknown) (unknown) Lymph # (Auto) (units (unknown) date) (3337-9095) /uL unknown) (unknown) (no (unknown) (unknown) Lymph # (Auto) (units (unknown) date) 1300 (3710-4264) unknown) /uL (unknown) (no (unknown) (unknown) Lymph % (Auto) (units (unknown) date) (25-40) % unknown) (unknown) (no (unknown) (unknown) Lymph % (Auto) (units (unknown) date) 20.2 L (25-40) unknown) % (unknown) (no (unknown) (unknown) [id number] (units (unk nown) date) unknown) (unknown) (no (unknown) (unknown) MCA territory and (units (unknown) date) suggested if there unknown) were concerned of an acute on chronic CVA (unknown) (no (unknown) (unknown) MCH (26-34) (units (unknown) date) PG unknown) (unknown) (no (unknown) (unknown) MCH 30.1 (units (unkn own) date) (26-34) PG unknown) (unknown) (no (unknown) (unknown) MCHC (30-36) (units (unknown) date) % unknown) (unknown) (no (unknown) (unknown) MCHC 33.2 (units (unk nown) date) (30-36) % unknown) (unknown) (no (unknown) (unknown) MCV (80-100) (units (unknown) date) fL unknown) (unknown) (no (unknown) (unknown) MCV 90.9 (units (unkn own) date) (80-100) fL unknown) (unknown) (no (unknown) (unknown) MDM - Chest Pain (units (unknown) date) unknown) (unknown) (no (unknown) (unknown) MDM Narrative (units ( unknown) date) unknown) (unknown) (no (unknown) (unknown) MMode/2D (units (unkno wn) date) Measurements + unknown) Calculations (unknown) (no (unknown) (unknown) MR#: [id number] (units (unknown) date) unknown) (unknown) (no (unknown) (unknown) MUSCULOSKELETAL: (units (unknown) date) denies muscle or unknown) bony pain (unknown) (no (unknown) (unknown) MV A max benjamin: 2.1 (units (unknown) date) cm/sec ? TR unknown) max P.8 mmHg (unknown) (no (unknown) (unknown) MV E max benjamin: 96.4 (units (unknown) date) cm/sec? TR unknown) max benjamin: 228.2 cm/sec (unknown) (no (unknown) (unknown) MV E/A: 46.5 ? ? ? (units (unknown) date) ? PA V2 unknown) max: 95.2 cm/sec (unknown) (no (unknown) (unknown) MV dec time: 0.23 (units (unknown) date) sec unknown) (unknown) (no (unknown) (unknown) Magnesium (units (unkn own) date) (1.6-2.3) mg/dL unknown) (unknown) (no (unknown) (unknown) Magnesium 2.0 (units (unknown) date) (1.6-2.3) mg/dL unknown) (unknown) (no (unknown) (unknown) Measles (units (unkno wn) date) unknown) (unknown) (no (unknown) (unknown) Med Peak E' Benjamin: (units (unknown) date) 5.8 cm/sec? ? ? PA unknown) V2 mean: 64.6 cm/sec (unknown) (no (unknown) (unknown) Mediastinum:? (units ( unknown) date) Mediastinal unknown) contours are unchanged.? Heart size is mildly (unknown) (no (unknown) (unknown) Medical History (units (unknown) date) (Reviewed 03/18/22 unknown) @ 04:05 by JULIETTE Alfred) (unknown) (no (unknown) (unknown) Medical decision (units (unknown) date) making narrative: unknown) (unknown) (no (unknown) (unknown) Metoprolol (units (unk nown) date) Succinate unknown) (Metoprolol Er 25 Mg Tablet) 25 mg PO NOW ONE (unknown) (no (unknown) (unknown) Metoprolol (units (unk nown) date) Tartrate unknown) (Metoprolol Ir 25 Mg Tablet) 12.5 mg PO DAILY [facility]ILSON (unknown) (no (unknown) (unknown) Micro UA Comment (units (unknown) date) unknown) (unknown) (no (unknown) (unknown) Micro UA Comment (units (unknown) date) * unknown) 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 (units (unknown) date) There is moderate unknown) mitral annular calcification. The mitral (unknown) (no (unknown) (unknown) Mode of arrival: (units (unknown) date) EMS unknown) (unknown) (no (unknown) (unknown) [place] # (Auto) (units ( unknown) date) (0-900) /uL unknown) (unknown) (no (unknown) (unknown) [place] # (Auto) 400 (units (unknown) date) (0-900) /uL unknown) (unknown) (no (unknown) (unknown) [place] % (Auto) (units ( unknown) date) (3-14) % unknown) (unknown) (no (unknown) (unknown) [place] % (Auto) 7.2 (units (unknown) date) (3-14) % unknown) (unknown) (no (unknown) (unknown) Morphine Sulfate (units (unknown) date) (Morphine 2 Mg/Ml unknown) Inj) 2 mg IV Q5MIN PRN (unknown) (no (unknown) (unknown) Mother (units (unknown) date) Maternal unknown) complication related to childbirth (unknown) (no (unknown) (unknown) NECK: Trachea (units ( unknown) date) midline. unknown) (unknown) (no (unknown) (unknown) NEURO: AOx4. (units (u nknown) date) unknown) (unknown) (no (unknown) (unknown) NEUROLOGIC: Denies (units (unknown) date) weakness, numbness unknown) (unknown) (no (unknown) (unknown) Naloxone HCl (units (u nknown) date) (Naloxone 0.4 Mg/Ml unknown) Vial) 0.2 mg IV Q2MIN PRN (unknown) (no (unknown) (unknown) Narrative (units (unkn own) date) unknown) (unknown) (no (unknown) (unknown) Narrative: (units (unk nown) date) unknown) (unknown) (no (unknown) (unknown) Narrative: (units (unk nown) date) unknown) (unknown) (no (unknown) (unknown) Neut # (Auto) (units ( unknown) date) (6175-6420) /uL unknown) (unknown) (no (unknown) (unknown) Neut # (Auto) (units ( unknown) date) 4400 (7435-9808) unknown) /uL (unknown) (no (unknown) (unknown) Neut % (Auto) (units ( unknown) date) (50-75) % unknown) (unknown) (no (unknown) (unknown) Neut % (Auto) (units ( unknown) date) 71.1 (50-75) % unknown) (unknown) (no (unknown) (unknown) Nitroglycerin (units ( unknown) date) (Nitroglycerin 0.4 unknown) Mg Sl Tab) 0.4 mg SL [id number] PRN (unknown) (no (unknown) (unknown) No chest pain (units ( unknown) date) here. Blood unknown) pressure 170/89. It has improved. Reviewed results (unknown) (no (unknown) (unknown) No new issues (units ( unknown) date) during course of unknown) stay (unknown) (no (unknown) (unknown) No recent illness (units (unknown) date) fever chills cough unknown) cold or congestion. No urinary complaints. (unknown) (no (unknown) (unknown) Ondansetron HCl (units (unknown) date) (Ondansetron 4 Mg/2 unknown) Ml Inj) 4 mg IV Q8HR PRN (unknown) (no (unknown) (unknown) Ordered: (units (unkno wn) date) unknown) (unknown) (no (unknown) (unknown) Ordering Provider: (units (unknown) date) Jossue Salcido MD unknown) (unknown) (no (unknown) (unknown) Ordering Provider: (units (unknown) date) Eliana Barry unknown) (unknown) (no (unknown) (unknown) Orders (units (unkno wn) date) unknown) (unknown) (no (unknown) (unknown) Osteoarthritis of (units (unknown) date) knees, bilateral unknown) (unknown) (no (unknown) (unknown) Overall no (units (unk nown) date) significant change unknown) from prior exam. However, there the MR and TR (unknown) (no (unknown) (unknown) Oxygen Delivery (units (unknown) date) Method Room Air unknown) (unknown) (no (unknown) (unknown) PROCEDURE:? XR (units (unknown) date) CHEST 1V unknown) (unknown) (no (unknown) (unknown) PSYCH: Not (units (un known) date) anxious, is unknown) cooperative (unknown) (no (unknown) (unknown) Pantoprazole (units (u nknown) date) Sodium unknown) (Pantoprazole Dr 40 Mg Tablet) 40 mg PO DAILY DENILSON (unknown) (no (unknown) (unknown) Patient (units (unkno wn) date) Disposition: unknown) Admitted as Observation (unknown) (no (unknown) (unknown) Patient (units (unkno wn) date) Disposition: Home unknown) (unknown) (no (unknown) (unknown) Patient History (units (unknown) date) unknown) (unknown) (no (unknown) (unknown) Patient brought (units (unknown) date) here by ambulance unknown) from home. Complaints of chest pain relief (unknown) (no (unknown) (unknown) Patient: (units (unkno wn) date) Jackie Prather unknown) MR#: (unknown) (no (unknown) (unknown) Patient: (units (unkno wn) date) Jackie Prather unknown) (unknown) (no (unknown) (unknown) Pericardium/ (units (u nknown) date) Pleura ? There is unknown) no pericardial effusion. 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 (units (unknown) date) The pulmonic valve unknown) is not well seen, but is grossly normal. (unknown) (no (unknown) (unknown) Pulse Oximetry 95 (units (unknown) date) 03/17/22 20:51 unknown) (unknown) (no (unknown) (unknown) Pulse Oximetry 96 (units (unknown) date) unknown) (unknown) (no (unknown) (unknown) Pulse Rate 94 H (units (unknown) date) 03/17/22 20:51 unknown) (unknown) (no (unknown) (unknown) Pulse Rate 118 H (units (unknown) date) 98 H 82 unknown) (unknown) (no (unknown) (unknown) RDW (units (unkno wn) date) (11.6-14.8) % unknown) (unknown) (no (unknown) (unknown) RDW 14.7 (units (unkn own) date) (11.6-14.8) % unknown) (unknown) (no (unknown) (unknown) RESPIRATORY: Clear (units (unknown) date) to auscultation. unknown) Breath sounds equal bilaterally. No wheezes, (unknown) (no (unknown) (unknown) RESPIRATORY: (units (u nknown) date) Denies dyspnea, unknown) cough (unknown) (no (unknown) (unknown) ROS Unobtainable: (units (unknown) date) All systems unknown) reviewed + are unremarkable except as noted in HPI (unknown) (no (unknown) (unknown) RVD1 (basal): 3.8 (units (unknown) date) cm unknown) (unknown) (no (unknown) (unknown) RVD2 (mid): 3.8 cm (units (unknown) date) unknown) (unknown) (no (unknown) (unknown) Reading (units (unkno wn) date) Physician:AM unknown) (unknown) (no (unknown) (unknown) Reevaluation #1: (units (unknown) date) unknown) (unknown) (no (unknown) (unknown) Reevaluation(s) (units (unknown) date) unknown) (unknown) (no (unknown) (unknown) Related Data (units (u nknown) date) unknown) (unknown) (no (unknown) (unknown) Respiratory Rate (units (unknown) date) 20 03/17/22 20:51 unknown) (unknown) (no (unknown) (unknown) Respiratory Rate (units (unknown) date) 20 unknown) (unknown) (no (unknown) (unknown) Result diagrams: (units (unknown) date) unknown) (unknown) (no (unknown) (unknown) Review of Systems (units (unknown) date) unknown) (unknown) (no (unknown) (unknown) Right Ventricle: ? (units (unknown) date) The right ventricle unknown) is normal size. Right ventricular (unknown) (no (unknown) (unknown) Right ventricular (units (unknown) date) systolic function unknown) is mild to moderately reduced. (unknown) (no (unknown) (unknown) SARS-CoV-2 (PCR) (units (unknown) date) (Negative) unknown) (unknown) (no (unknown) (unknown) SARS-CoV-2 (PCR) (units (unknown) date) Negative unknown) (Negative) (unknown) (no (unknown) (unknown) SKIN: Warm and (units (unknown) date) dry unknown) (unknown) (no (unknown) (unknown) SKIN: Denies rash, (units (unknown) date) skin lesions unknown) (unknown) (no (unknown) (unknown) SV(LVOT): 36.8 ml (units (unknown) date) unknown) (unknown) (no (unknown) (unknown) Scores (units (unkno wn) date) unknown) (unknown) (no (unknown) (unknown) Service: 02/16/22 (units (unknown) date) unknown) (unknown) (no (unknown) (unknown) She presented (units ( unknown) date) today with EMS and unknown) she was very confused and apparently covered (unknown) (no (unknown) (unknown) She told the nurse (units (unknown) date) that she lives in unknown) an apartment that is connected to the house (unknown) (no (unknown) (unknown) Signed By: (units (unk nown) date) unknown) (unknown) (no (unknown) (unknown) Sister (units (unknown) date) Traumatic unknown) amputation (unknown) (no (unknown) (unknown) Smoking Status: (units (unknown) date) Never smoker unknown) (unknown) (no (unknown) (unknown) Smoking Status: (units (unknown) date) Never smoker unknown) (unknown) (no (unknown) (unknown) Social History (units (unknown) date) (Reviewed 03/17/22 unknown) @ 21:36 by Jossue Salcido MD) (unknown) (no (unknown) (unknown) Sodium (units (unkno wn) date) (137-145) mmol/L unknown) (unknown) (no (unknown) (unknown) Sodium 140 (units (u nknown) date) (137-145) mmol/L unknown) (unknown) (no (unknown) (unknown) Source: patient (units (unknown) date) unknown) (unknown) (no (unknown) (unknown) Speech and (units (unk nown) date) language unknown) 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 (09/28/12) (unknown) (no (unknown) (unknown) Spoke with (units (unk nown) date) Cardiology, unknown) Goldie, recommends admission and get a nuclear (unknown) (no (unknown) (unknown) Spoke with (units (unk nown) date) hospitalist, unknown) Deidra, will admit (unknown) (no (unknown) (unknown) Stated Complaint: (units (unknown) date) Chest Pain, Welfare unknown) check (unknown) (no (unknown) (unknown) Status post (units (un known) date) arthroscopy unknown) (unknown) (no (unknown) (unknown) Status post biopsy (units (unknown) date) () unknown) (unknown) (no (unknown) (unknown) Status post breast (units (unknown) date) lumpectomy () unknown) (unknown) (no (unknown) (unknown) Status post (units (un known) date) cholecystectomy unknown) (unknown) (no (unknown) (unknown) 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 One (units (unknown) date) view of the chest unknown) was acquired.? (unknown) (no (unknown) (unknown) Temperature 97.7 F (units (unknown) date) unknown) (unknown) (no (unknown) (unknown) The aortic valve (units (unknown) date) is mildly unknown) calcified. (unknown) (no (unknown) (unknown) The ejection (units (u nknown) date) fraction is unknown) estimated to be 35-40%. (unknown) (no (unknown) (unknown) The inferior and (units (unknown) date) inferposterior are unknown) relatively more hypokinetic, but overall (unknown) (no (unknown) (unknown) The left atrium is (units (unknown) date) severely dilated. unknown) (unknown) (no (unknown) (unknown) The left ventricle (units (unknown) date) is normal in size unknown) and wall thickness. (unknown) (no (unknown) (unknown) The pulmonary (units ( unknown) date) hypertension is unknown) improved from prior exam. (unknown) (no (unknown) (unknown) The right atrium (units (unknown) date) is severely unknown) dilated. (unknown) (no (unknown) (unknown) The right (units (unkn own) date) ventricular unknown) systolic pressure is estimated to be at least 29 mmHg (unknown) (no (unknown) (unknown) There is mild (units ( unknown) date) mitral unknown) regurgitation. (unknown) (no (unknown) (unknown) There is mild to (units (unknown) date) moderate global unknown) hypokinesis of the left ventricle. (unknown) (no (unknown) (unknown) There is mild (units ( unknown) date) tricuspid unknown) regurgitation. The right ventricular systolic pressure (unknown) (no (unknown) (unknown) There is moderate (units (unknown) date) mitral annular unknown) calcification. (unknown) (no (unknown) (unknown) There is no (units (un known) date) pulmonic valvular unknown) regurgitation. (unknown) (no (unknown) (unknown) Time Seen by (units (u nknown) date) Provider: 03/17/22 unknown) 21:24 (unknown) (no (unknown) (unknown) Time: 02:33 (units (un known) date) unknown) (unknown) (no (unknown) (unknown) Time: 02:43 (units (un known) date) unknown) (unknown) (no (unknown) (unknown) Time: 02:46 (units (un known) date) unknown) (unknown) (no (unknown) (unknown) Total Bilirubin (units (unknown) date) (0.2-1.3) mg/dL unknown) (unknown) (no (unknown) (unknown) Total Bilirubin (units (unknown) date) 0.9 (0.2-1.3) unknown) mg/dL (unknown) (no (unknown) (unknown) Total Creatine (units (unknown) date) Kinase (30-135) unknown) U/L (unknown) (no (unknown) (unknown) Total Creatine (units (unknown) date) Kinase < 20 L unknown) (30-135) U/L (unknown) (no (unknown) (unknown) Total Protein (units ( unknown) date) (6.3-8.2) g/dL unknown) (unknown) (no (unknown) (unknown) Total Protein (units ( unknown) date) 7.6 (6.3-8.2) unknown) g/dL (unknown) (no (unknown) (unknown) Tramadol HCl (units (u nknown) date) (Tramadol 50 Mg unknown) Tablet) 50 mg PO Q4H PRN (unknown) (no (unknown) (unknown) Tricuspid Valve: ? (units (unknown) date) The tricuspid valve unknown) is normal in structure and function. (unknown) (no (unknown) (unknown) Triglycerides (units ( unknown) date) (35-150) mg/dL unknown) (unknown) (no (unknown) (unknown) Triglycerides (units ( unknown) date) 111 (35-150) unknown) mg/dL (unknown) (no (unknown) (unknown) Troponin I < (units (unknown) date) 0.012 unknown) (0.01-0.034) ng/mL (unknown) (no (unknown) (unknown) Troponin I < (units ( unknown) date) 0.012 unknown) (0.01-0.034) ng/mL (unknown) (no (unknown) (unknown) Ur Culture (units (unk nown) date) Indicated? unknown) (unknown) (no (unknown) (unknown) Ur Culture (units (unk nown) date) Indicated? unknown) Culture not indicate (unknown) (no (unknown) (unknown) Ur Squamous Epith (units (unknown) date) Cells (0-5/HPF) unknown) (unknown) (no (unknown) (unknown) Ur Squamous Epith (units (unknown) date) Cells 1-5 /hpf unknown) (0-5/HPF) (unknown) (no (unknown) (unknown) Urine Bacteria (units (unknown) date) (None) unknown) (unknown) (no (unknown) (unknown) Urine Bacteria (units (unknown) date) None seen (None) unknown) (unknown) (no (unknown) (unknown) Urine RBC (units (unkn own) date) (0-5/HPF) unknown) (unknown) (no (unknown) (unknown) Urine RBC None (units (unknown) date) seen (0-5/HPF) unknown) (unknown) (no (unknown) (unknown) Urine Specific (units (unknown) date) [place] 1.030 unknown) (unknown) (no (unknown) (unknown) Urine WBC (units (unkn own) date) (0-5/HPF) unknown) (unknown) (no (unknown) (unknown) Urine WBC (units (unkn own) date) 1-5/hpf (0-5/HPF) unknown) (unknown) (no (unknown) (unknown) Vital Signs (units (un known) date) unknown) (unknown) (no (unknown) (unknown) Vital signs: (units (u nknown) date) unknown) (unknown) (no (unknown) (unknown) Written by (units (unk nown) date) admitting provider. unknown) (unknown) (no (unknown) (unknown) [Embedded Image (units (unknown) date) Not Available] unknown) (unknown) (no (unknown) (unknown) (units (unknown) date) unknown) ___ (unknown) (no (unknown) (unknown) acute (units (unkno wn) date) diverticulitis.? unknown) WBC is unremarkable, she has a creatinine bump of 1.06 (unknown) (no (unknown) (unknown) alcohol intake (units (unknown) date) frequency: unknown) holidays/special occasions only (unknown) (no (unknown) (unknown) alcohol intake: (units (unknown) date) never unknown) (unknown) (no (unknown) (unknown) and Doppler was (units (unknown) date) performed. The unknown) study quality was technically adequate. (unknown) (no (unknown) (unknown) and apparently that (units (unknown) date) is been an issue.? unknown) Review of case management note written on (unknown) (no (unknown) (unknown) and left axilla. (units (unknown) date) unknown) (unknown) (no (unknown) (unknown) apixaban 5 mg (units ( unknown) date) tablet 5 mg PO BID unknown) #180 tabs 03/11/21 (unknown) (no (unknown) (unknown) appear (units (unkno wn) date) unknown) (unknown) (no (unknown) (unknown) are now mild (units (u nknown) date) instead of unknown) moderate. (unknown) (no (unknown) (unknown) ascending aorta (units (unknown) date) are normal. The IVC unknown) is of normal diameter and collapses less (unknown) (no (unknown) (unknown) atherosclerotic (units (unknown) date) plaque protecting unknown) meds. (unknown) (no (unknown) (unknown) atorvastatin 40 mg (units (unknown) date) tablet 40 mg PO unknown) BEDTIME #90 tabs 12/11/21 (unknown) (no (unknown) (unknown) atrial (units (unkno wn) date) fibrillation with unknown) heart rates between 54-75 bpm during the exam. (unknown) (no (unknown) (unknown) based on an (units (un known) date) estimated right unknown) atrial pressure of 8 mm Hg. (unknown) (no (unknown) (unknown) because supposedly (units (unknown) date) her son found her unknown) passed out on the ?marcell potty'.? Patient (unknown) (no (unknown) (unknown) butter cookies and (units (unknown) date) then has maybe a unknown) hot meal, usually hamburger.? (unknown) (no (unknown) (unknown) by cab.? She was (units (unknown) date) apparently seen in unknown) the emergency department on February 14 and at (unknown) (no (unknown) (unknown) chest abdomen and (units (unknown) date) pelvis reported a unknown) small right upper lobe 0.4 cm pulmonary (unknown) (no (unknown) (unknown) class 2 (06/05/11) (units (unknown) date) unknown) (unknown) (no (unknown) (unknown) contaminated and a (units (unknown) date) culture was not unknown) able to be grown or specified. (unknown) (no (unknown) (unknown) daily for rate (units (unknown) date) control. unknown) (unknown) (no (unknown) (unknown) diclofenac sodium (units (unknown) date) 1 % topical gel 2 g unknown) topical QID #100 grams 02/03/22 (unknown) (no (unknown) (unknown) dilated. There is (units (unknown) date) no Doppler evidence unknown) for an interatrial shunt. (unknown) (no (unknown) (unknown) discharge note (units (unknown) date) below. Denies any unknown) recent illness. No fall or injury. She (unknown) (no (unknown) (unknown) distention in the (units (unknown) date) rectum likely unknown) impaction and colonic diverticulosis without (unknown) (no (unknown) (unknown) effusion. (units (unkn own) date) unknown) (unknown) (no (unknown) (unknown) effusions or (units (u nknown) date) unknown) (unknown) (no (unknown) (unknown) ejection fraction (units (unknown) date) is estimated to be unknown) 35-40%. There is mild to moderate global (unknown) (no (unknown) (unknown) enlarged. (units (unkn own) date) unknown) (unknown) (no (unknown) (unknown) function could not (units (unknown) date) be accurately unknown) assessed due to atrial fibrillation. 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 No acute consolidation.? No pleural (unknown) (no (unknown) (unknown) hemodynamically (units (unknown) date) significant unknown) valvular aortic stenosis. There is trace aortic (unknown) (no (unknown) (unknown) hospitalist. (units (u nknown) date) Agree for admit. unknown) (unknown) (no (unknown) (unknown) household members: (units (unknown) date) children unknown) (unknown) (no (unknown) (unknown) hydrocodone 5 (units ( unknown) date) mg-acetaminophen unknown) 325 1 tab PO BID PRN pain #20 tabs 03/02/22 (unknown) (no (unknown) (unknown) hypokinesis of the (units (unknown) date) left ventricle. The unknown) inferior and inferposterior are (unknown) (no (unknown) (unknown) in the process of (units (unknown) date) being evicted from unknown) an apartment however she has tenant rights (unknown) (no (unknown) (unknown) inhalational (units (u nknown) date) spacing device #1 unknown) ea 11/01/19 (unknown) (no (unknown) (unknown) is estimated to be (units (unknown) date) at least 29 mmHg unknown) based on an estimated right atrial (unknown) (no (unknown) (unknown) last month for (units (unknown) date) multiple problems. unknown) Did have echocardiogram done. Please see (unknown) (no (unknown) (unknown) likely adversely (units (unknown) date) affecting all of unknown) the patient's other comorbidities. (unknown) (no (unknown) (unknown) lisinopril AdvReac (units (unknown) date) Mild Cough Verified unknown) 02/16/22 18:19 (unknown) (no (unknown) (unknown) lives with her son (units (unknown) date) and was recently unknown) homeless.? She was apparently confused, (unknown) (no (unknown) (unknown) losartan 50 mg (units (unknown) date) tablet 50 mg PO unknown) DAILY #90 tabs 02/09/22 (unknown) (no (unknown) (unknown) mediastinum (units (un known) date) unknown) (unknown) (no (unknown) (unknown) metoprolol (units (unk nown) date) tartrate 25 mg unknown) tablet 12.5 mg PO DAILY #45 tabs 12/11/21 (unknown) (no (unknown) (unknown) mg tablet (units (unkn own) date) unknown) (unknown) (no (unknown) (unknown) multiple times (units (unknown) date) when the son was unknown) contacted he was hard to be connected to and (unknown) (no (unknown) (unknown) nitroglycerin 0.4 (units (unknown) date) mg sublingual See unknown) Rx Instructions sublingual PRN 10/26/21 (unknown) (no (unknown) (unknown) nodule with (units (un known) date) recommendations for unknown) follow-up in 12 months and moderate stool (unknown) (no (unknown) (unknown) pain, CAD, (units (unk nown) date) anxiety, atrial unknown) fibrillation on anticoagulation, history of (unknown) (no (unknown) (unknown) pantoprazole 40 mg (units (unknown) date) tablet,delayed 40 unknown) mg PO DAILY #90 tabs 02/09/22 (unknown) (no (unknown) (unknown) patient declined (units (unknown) date) SNF placement, and unknown) will receive home health aide on discharge. (unknown) (no (unknown) (unknown) please add the (units (unknown) date) following: severe, unknown) acute protein-calorie malnutrition. This is (unknown) (no (unknown) (unknown) pneumothorax.? (units (unknown) date) unknown) (unknown) (no (unknown) (unknown) pressure of 8 mm (units (unknown) date) Hg. unknown) (unknown) (no (unknown) (unknown) regurgitation. (units (unknown) date) unknown) (unknown) (no (unknown) (unknown) relatively more (units (unknown) date) hypokinetic, but unknown) overall unchanged from prior exam. Diastolic (unknown) (no (unknown) (unknown) release (units (unkno wn) date) unknown) (unknown) (no (unknown) (unknown) right MCA infarct (units (unknown) date) unknown) (unknown) (no (unknown) (unknown) right parietal and (units (unknown) date) temporal lobes unknown) consistent with a prior infarct in the right (unknown) (no (unknown) (unknown) sertraline (units (unk nown) date) [SERTRALINE] unknown) Allergy Mild FEELS Verified 02/16/22 18:19 (unknown) (no (unknown) (unknown) states she is in a (units (unknown) date) better living unknown) condition since being discharged last month. (unknown) (no (unknown) (unknown) states she only (units (unknown) date) eats 2 times a day unknown) consisting mostly of putting and peanut (unknown) (no (unknown) (unknown) stress test (units (un known) date) unknown) (unknown) (no (unknown) (unknown) systolic function (units (unknown) date) is mild to unknown) moderately reduced. (unknown) (no (unknown) (unknown) tablet (Nitrostat) (units (unknown) date) PRN Chest Pain #30 unknown) tabs (unknown) (no (unknown) (unknown) than 50% with a (units (unknown) date) sniff. This unknown) suggests a right atrial pressure of 8 mm Hg. 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 History of (units (unknown) date) coronary disease unknown) with bypass surgery. Recently admitted here (unknown) (no (unknown) (unknown) to have the (units (un known) date) patient undergo MRI unknown) imaging to further delineate this.? CT of the (unknown) (no (unknown) (unknown) trace leukocyte (units (unknown) date) esterase and will unknown) be cultured.? COVID-19 PCR is negative. (unknown) (no (unknown) (unknown) unchanged from (units (unknown) date) prior exam. unknown) (unknown) (no (unknown) (unknown) unkempt and (units (un known) date) appeared to be not unknown) cared for [facility].? It appears that (unknown) (no (unknown) (unknown) unremarkable.? (units (unknown) date) unknown) (unknown) (no (unknown) (unknown) valve leaflets are (units (unknown) date) mildly calcified. unknown) There is mild mitral regurgitation. (unknown) (no (unknown) (unknown) when they were (units (unknown) date) able to reach him unknown) he would request that the patient be sent home (unknown) (no (unknown) (unknown) with an EGFR of (units (unknown) date) 52, alk-phos unknown) elevated at 146 UA is positive for ketones and (unknown) (no (unknown) (unknown) with home (units (unkn own) date) nitroglycerin. To unknown) calm 81 mg aspirin. Denies any chest pain at this (unknown) (no (unknown) (unknown) with patient. (units ( unknown) date) Agrees for admit. unknown) (unknown) (no (unknown) (unknown) with stool and (units (unknown) date) urine. unknown) Result panel 22 (unknown) (no (unknown) (unknown) Qty: 1 0RF (units (unk nown) date) unknown) (unknown) (no (unknown) (unknown) (no value) (units (unk nown) date) unknown) (unknown) (no (unknown) (unknown) Date of Service: (units (unknown) date) 03/18/22 unknown) (unknown) (no (unknown) (unknown) (no value) (units (unk nown) date) unknown) (unknown) (no (unknown) (unknown) - (units (unkno wn) date) unknown) (unknown) (no (unknown) (unknown) 03/17/22 20:07 (units (unknown) date) unknown) (unknown) (no (unknown) (unknown) 03/18/22 1903 (units ( unknown) date) unknown) (unknown) (no (unknown) (unknown) 1 tab PO BID PRN (units (unknown) date) (Reason: pain) Qty: unknown) 20 0RF (unknown) (no (unknown) (unknown) 1 tab under tongue (units (unknown) date) every five minutes unknown) up to three times, call 911 if no (unknown) (no (unknown) (unknown) 12.5 mg PO DAILY (units (unknown) date) Qty: 45 0RF unknown) (unknown) (no (unknown) (unknown) 2 g topical QID (units (unknown) date) Qty: 100 0RF unknown) (unknown) (no (unknown) (unknown) 300 mg PO TID Qty: (units (unknown) date) 270 0RF unknown) (unknown) (no (unknown) (unknown) 40 mg PO BEDTIME (units (unknown) date) Qty: 90 0RF unknown) (unknown) (no (unknown) (unknown) 40 mg PO DAILY (units (unknown) date) Qty: 90 0RF unknown) (unknown) (no (unknown) (unknown) 5 mg PO BID Qty: (units (unknown) date) 180 1RF unknown) (unknown) (no (unknown) (unknown) 50 mg PO DAILY (units (unknown) date) Qty: 90 1RF unknown) (unknown) (no (unknown) (unknown) As directed (units (un known) date) unknown) (unknown) (no (unknown) (unknown) Comment: (units (unkno wn) date) unknown) (unknown) (no (unknown) (unknown) Discharge Summary (units (unknown) date) unknown) (unknown) (no (unknown) (unknown) Dose Instruction: (units (unknown) date) unknown) (unknown) (no (unknown) (unknown) Hold Instructions: (units (unknown) date) stopped at unknown) [place] (unknown) (no (unknown) (unknown) [facility] (units (unknown) date) [address] unknown) [place] [id number] (unknown) (no (unknown) (unknown) Laboratory Results (units (unknown) date) - last 24 hr unknown) (unknown) (no (unknown) (unknown) Patient unable to (units (unknown) date) walk 200 feet unknown) without stopping to rest. (unknown) (no (unknown) (unknown) Rx Instructions: (units (unknown) date) unknown) (unknown) (no (unknown) (unknown) See Rx (units (unkno wn) date) Instructions unknown) .ROUTE .MEDSUPPLY Qty: 1 0RF (unknown) (no (unknown) (unknown) See Rx (units (unkno wn) date) Instructions unknown) Sublingual PRN PRN (Reason: Chest Pain) Qty: 30 0RF (unknown) (no (unknown) (unknown) apply to single (units (unknown) date) elbow, wrist or unknown) hand; for hand includes palm/fingers/back of (unknown) (no (unknown) (unknown) (no value) (units (unk nown) date) unknown) (unknown) (no (unknown) (unknown) (DME) Aerochamber (units (unknown) date) MV Spacer unknown) (unknown) (no (unknown) (unknown) (DME) Handicap (units (unknown) date) Parking unknown) (unknown) (no (unknown) (unknown) 01:30 01:30 02:34 (units (unknown) date) unknown) (unknown) (no (unknown) (unknown) 03/17/22 03/17/22 (units (unknown) date) 03/17/22 unknown) (unknown) (no (unknown) (unknown) 03/18/22 03/18/22 (units (unknown) date) 03/18/22 unknown) (unknown) (no (unknown) (unknown) 20:07 20:07 22:12 (units (unknown) date) unknown) (unknown) (no (unknown) (unknown) apixaban 5 mg (units ( unknown) date) tablet unknown) (unknown) (no (unknown) (unknown) atorvastatin 40 mg (units (unknown) date) tablet unknown) (unknown) (no (unknown) (unknown) diclofenac sodium (units (unknown) date) 1 % gel unknown) (unknown) (no (unknown) (unknown) gabapentin (units (unk nown) date) [Neurontin] 300 mg unknown) capsule (unknown) (no (unknown) (unknown) hydrocodone-acetam (units (unknown) date) inophen 5-325 mg unknown) tablet (unknown) (no (unknown) (unknown) losartan 50 mg (units (unknown) date) tablet unknown) (unknown) (no (unknown) (unknown) metoprolol (units (unk nown) date) tartrate 25 mg unknown) tablet (unknown) (no (unknown) (unknown) nitroglycerin (units ( unknown) date) [Nitrostat] 0.4 mg unknown) tablet, sublingual (unknown) (no (unknown) (unknown) pantoprazole 40 mg (units (unknown) date) tablet,delayed unknown) release (DR/EC) (unknown) (no (unknown) (unknown) 03/18/22 (units (unkno wn) date) unknown) (unknown) (no (unknown) (unknown) did not have a (units (unknown) date) heart attack. Her unknown) blood tests were reassuring. Her stress test (unknown) (no (unknown) (unknown) (12/05/17) (units (unk nown) date) unknown) (unknown) (no (unknown) (unknown) (past 8 hours): (units (unknown) date) unknown) (unknown) (no (unknown) (unknown) 03/17/22 21:08 (units (unknown) date) unknown) (unknown) (no (unknown) (unknown) 03/18/22 02:55 (units (unknown) date) unknown) (unknown) (no (unknown) (unknown) 1. Atypical chest (units (unknown) date) pain, resolved unknown) (unknown) (no (unknown) (unknown) 11:00 03/18/22 (units (unknown) date) unknown) (unknown) (no (unknown) (unknown) 11:30 03/18/22 (units (unknown) date) unknown) (unknown) (no (unknown) (unknown) 12:00 (units (unkno wn) date) unknown) (unknown) (no (unknown) (unknown) 13:58 03/18/22 (units (unknown) date) unknown) (unknown) (no (unknown) (unknown) 13:59 03/18/22 (units (unknown) date) unknown) (unknown) (no (unknown) (unknown) 14:00 (units (unkno wn) date) unknown) (unknown) (no (unknown) (unknown) 170s, heart rate (units (unknown) date) 82, respiratory unknown) rate 20, oxygen saturation 96% on room air, she (unknown) (no (unknown) (unknown) 18:00 (units (unkno wn) date) unknown) (unknown) (no (unknown) (unknown) 2. Atrial (units (unkn own) date) fibrillation unknown) (unknown) (no (unknown) (unknown) 3. CAD (units (unkno wn) date) unknown) (unknown) (no (unknown) (unknown) 4. Hyperlipidemia (units (unknown) date) unknown) (unknown) (no (unknown) (unknown) 5. GERD (units (unkno wn) date) unknown) (unknown) (no (unknown) (unknown) 6. CHFrEF, chronic (units (unknown) date) unknown) (unknown) (no (unknown) (unknown) 86-year-old female (units (unknown) date) with a history of unknown) atrial fibrillation anticoagulated on (unknown) (no (unknown) (unknown) ALT (units (unkno wn) date) unknown) (unknown) (no (unknown) (unknown) ALT 10 (units (unkno wn) date) unknown) (unknown) (no (unknown) (unknown) AST (units (unkno wn) date) unknown) (unknown) (no (unknown) (unknown) AST 26 (units (unkno wn) date) unknown) (unknown) (no (unknown) (unknown) Abd: soft, (units (unk nown) date) non-tender, normal unknown) bowel sounds (unknown) (no (unknown) (unknown) Abdominal pain (units (unknown) date) unknown) (unknown) (no (unknown) (unknown) Acute pancreatitis (units (unknown) date) unknown) (unknown) (no (unknown) (unknown) Age/Sex: 86 / F (units (unknown) date) unknown) (unknown) (no (unknown) (unknown) Albumin (units (unkno wn) date) unknown) (unknown) (no (unknown) (unknown) Albumin 4.1 (units ( unknown) date) unknown) (unknown) (no (unknown) (unknown) Albumin/Globulin (units (unknown) date) Ratio unknown) (unknown) (no (unknown) (unknown) Albumin/Globulin (units (unknown) date) Ratio 1.2 unknown) (unknown) (no (unknown) (unknown) Alkaline (units (unkno wn) date) Phosphatase unknown) (unknown) (no (unknown) (unknown) Alkaline (units (unkno wn) date) Phosphatase 116 unknown) (unknown) (no (unknown) (unknown) Anesthesia (units (unk nown) date) unknown) (unknown) (no (unknown) (unknown) Anticoagulated (units (unknown) date) unknown) (unknown) (no (unknown) (unknown) Anxiety (units (unkno wn) date) unknown) 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 () (unknown) (no (unknown) (unknown) 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 (09/28/12) (unknown) (no (unknown) (unknown) Asthma (units (unkno wn) date) unknown) (unknown) (no (unknown) (unknown) Attending (units (unkn own) date) Provider: unknown) Eliana Barry (unknown) (no (unknown) (unknown) BUN (units (unkno wn) date) unknown) (unknown) (no (unknown) (unknown) BUN 18 H (units (unk nown) date) unknown) (unknown) (no (unknown) (unknown) BUN/Creatinine (units (unknown) date) Ratio unknown) (unknown) (no (unknown) (unknown) BUN/Creatinine (units (unknown) date) Ratio 20.7 unknown) (unknown) (no (unknown) (unknown) Baso # (Auto) (units ( unknown) date) unknown) (unknown) (no (unknown) (unknown) Baso # (Auto) 0 (units (unknown) date) unknown) (unknown) (no (unknown) (unknown) Baso % (Auto) (units ( unknown) date) unknown) (unknown) (no (unknown) (unknown) Baso % (Auto) 0.7 (units (unknown) date) unknown) (unknown) (no (unknown) (unknown) Blood Pressure (units (unknown) date) 189/99 H unknown) (unknown) (no (unknown) (unknown) Blood Pressure (units (unknown) date) 148/92 H unknown) (unknown) (no (unknown) (unknown) Blood Pressure (units (unknown) date) 169/92 H 169/92 H unknown) (unknown) (no (unknown) (unknown) Breast cancer (units ( unknown) date) (-2001) unknown) (unknown) (no (unknown) (unknown) 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) unknown) (unknown) (no (unknown) (unknown) CK-MB (CK-2) (units (u nknown) date) unknown) (unknown) (no (unknown) (unknown) CK-MB (CK-2) TNP (units (unknown) date) unknown) (unknown) (no (unknown) (unknown) CK-MB (CK-2) Rel (units (unknown) date) Index unknown) (unknown) (no (unknown) (unknown) CK-MB (CK-2) Rel (units (unknown) date) Index TNP unknown) (unknown) (no (unknown) (unknown) CV: regular rate (units (unknown) date) and rhythm, tender unknown) to palpation over left chest (unknown) (no (unknown) (unknown) Calcified nodule (units (unknown) date) unknown) (unknown) (no (unknown) (unknown) Calcium (units (unkno wn) date) unknown) (unknown) (no (unknown) (unknown) Calcium 9.1 (units ( unknown) date) unknown) (unknown) (no (unknown) (unknown) Carbon Dioxide (units (unknown) date) unknown) (unknown) (no (unknown) (unknown) Carbon Dioxide (units (unknown) date) 27 unknown) (unknown) (no (unknown) (unknown) Case management (units (unknown) date) was aware and in unknown) discussion with APS about follow up after (unknown) (no (unknown) (unknown) 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 She is afebrile, blood (unknown) (no (unknown) (unknown) Chief complaint: (units (unknown) date) Chest Pain unknown) (unknown) (no (unknown) (unknown) Chloride (units (unkno wn) date) unknown) (unknown) (no (unknown) (unknown) Chloride 103 (units (unknown) date) unknown) (unknown) (no (unknown) (unknown) Cholelithiasis (units (unknown) date) unknown) (unknown) (no (unknown) (unknown) Cholesterol (units (un known) date) unknown) (unknown) (no (unknown) (unknown) Cholesterol 170 (units (unknown) date) unknown) (unknown) (no (unknown) (unknown) Chronic back pain (units (unknown) date) unknown) (unknown) (no (unknown) (unknown) Consult to [facility] - (units (unknown) 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) Stat (unknown) (no (unknown) (unknown) Consults: (units (unkn own) date) unknown) (unknown) (no (unknown) (unknown) Continued (units (unkn own) date) unknown) (unknown) (no (unknown) (unknown) Creatinine (units (unk nown) date) unknown) (unknown) (no (unknown) (unknown) Creatinine 0.87 (units (unknown) date) unknown) (unknown) (no (unknown) (unknown) : 1935 (units (unknown) date) Acct:[id number] unknown) (unknown) (no (unknown) (unknown) Date Patient Seen: (units (unknown) date) 03/18/22 unknown) (unknown) (no (unknown) (unknown) Date of admission: (units (unknown) date) unknown) (unknown) (no (unknown) (unknown) Deep Vein (units (unkn own) date) Thrombosis/Pulmonar unknown) y Embolism Present on Admission: No (unknown) (no (unknown) (unknown) Developmental (units ( unknown) date) disorder unknown) (unknown) (no (unknown) (unknown) Diarrhea (units (unkno wn) date) unknown) (unknown) (no (unknown) (unknown) Diet/Activity/[place] (units (unknown) date) tments unknown) (unknown) (no (unknown) (unknown) Diet: Regular (units ( unknown) date) unknown) (unknown) (no (unknown) (unknown) Discharge Data (units (unknown) date) unknown) (unknown) (no (unknown) (unknown) Discharge Date: (units (unknown) date) 03/18/22 unknown) (unknown) (no (unknown) (unknown) Discharge (units (unkn own) date) Diagnosis: unknown) (unknown) (no (unknown) (unknown) Discharge Plan (units (unknown) date) unknown) (unknown) (no (unknown) (unknown) Discharge (units (unkn own) date) Providers unknown) (unknown) (no (unknown) (unknown) Discharge orders + (units (unknown) date) Medications unknown) (unknown) (no (unknown) (unknown) Discharge (units (unkn own) date) provider: unknown) (unknown) (no (unknown) (unknown) Eos # (Auto) (units (u nknown) date) unknown) (unknown) (no (unknown) (unknown) Eos # (Auto) 0 (units (unknown) date) unknown) (unknown) (no (unknown) (unknown) Eos % (Auto) (units (u nknown) date) unknown) (unknown) (no (unknown) (unknown) Eos % (Auto) 0.8 (units (unknown) date) L unknown) (unknown) (no (unknown) (unknown) Essential (units (unkn own) date) hypertension unknown) (09/28/12) (unknown) (no (unknown) (unknown) Estimated GFR (units ( unknown) date) unknown) (unknown) (no (unknown) (unknown) Estimated GFR > (units (unknown) date) 60 unknown) (unknown) (no (unknown) (unknown) Exam (units (unkno wn) date) unknown) (unknown) (no (unknown) (unknown) Exam Narrative: (units (unknown) date) unknown) (unknown) (no (unknown) (unknown) Failure to thrive (units (unknown) date) in adult unknown) (unknown) (no (unknown) (unknown) Family History (units (unknown) date) (Reviewed 03/18/22 unknown) @ 04:05 by JULIETTE Alfred) (unknown) (no (unknown) (unknown) Father (units (unknown) date) Myocardial infarct unknown) (unknown) (no (unknown) (unknown) Fibrocystic breast (units (unknown) date) disease unknown) (unknown) (no (unknown) (unknown) GEN: no acute (units ( unknown) date) distress unknown) (unknown) (no (unknown) (unknown) GERD (units (unkno wn) date) (gastroesophageal unknown) reflux disease) (unknown) (no (unknown) (unknown) Globulin (units (unkno wn) date) unknown) (unknown) (no (unknown) (unknown) Globulin 3.5 (units (unknown) date) unknown) (unknown) (no (unknown) (unknown) Glucose (units (unkno wn) date) unknown) (unknown) (no (unknown) (unknown) Glucose 99 (units (u nknown) date) unknown) (unknown) (no (unknown) (unknown) HDL Cholesterol (units (unknown) date) unknown) (unknown) (no (unknown) (unknown) HDL Cholesterol (units (unknown) date) 58 unknown) (unknown) (no (unknown) (unknown) Hct (units (unkno wn) date) unknown) (unknown) (no (unknown) (unknown) Hct 39.2 (units (unkn own) date) unknown) (unknown) (no (unknown) (unknown) Hgb (units (unkno wn) date) unknown) (unknown) (no (unknown) (unknown) Hgb 13.0 (units (unkn own) date) unknown) (unknown) (no (unknown) (unknown) History of Present (units (unknown) date) Illness unknown) (unknown) (no (unknown) (unknown) History of colon (units (unknown) date) polyps (09/28/12) unknown) (unknown) (no (unknown) (unknown) History of left (units (unknown) date) breast cancer unknown) (-2008) (unknown) (no (unknown) (unknown) Hospital Course (units (unknown) date) unknown) (unknown) (no (unknown) (unknown) Hospital Course: (units (unknown) date) unknown) (unknown) (no (unknown) (unknown) Hyaline Casts (units ( unknown) date) unknown) (unknown) (no (unknown) (unknown) Hyaline Casts (units ( unknown) date) 0-1/lpf unknown) (unknown) (no (unknown) (unknown) Hyperlipidemia (units (unknown) date) unknown) 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) unknown) (unknown) (no (unknown) (unknown) Alcon De La Cruz MD (units (unknown) date) unknown) (unknown) (no (unknown) (unknown) LDL Cholesterol, (units (unknown) date) Calc unknown) (unknown) (no (unknown) (unknown) LDL Cholesterol, (units (unknown) date) Calc 90 unknown) (unknown) (no (unknown) (unknown) Labs (units (unkno wn) date) unknown) (unknown) (no (unknown) (unknown) Labs: (units (unkno wn) date) unknown) (unknown) (no (unknown) (unknown) Lipase (units (unkno wn) date) unknown) (unknown) (no (unknown) (unknown) Lipase 45 (units (un known) date) unknown) (unknown) (no (unknown) (unknown) Lymph # (Auto) (units (unknown) date) unknown) (unknown) (no (unknown) (unknown) Lymph # (Auto) (units (unknown) date) 1300 unknown) (unknown) (no (unknown) (unknown) Lymph % (Auto) (units (unknown) date) unknown) (unknown) (no (unknown) (unknown) Lymph % (Auto) (units (unknown) date) 20.2 L unknown) (unknown) (no (unknown) (unknown) [id number] (units (unk nown) date) unknown) (unknown) (no (unknown) (unknown) MCH (units (unkno wn) date) unknown) (unknown) (no (unknown) (unknown) MCH 30.1 (units (unkn own) date) unknown) (unknown) (no (unknown) (unknown) MCHC (units (unkno wn) date) unknown) (unknown) (no (unknown) (unknown) MCHC 33.2 (units (unk nown) date) unknown) (unknown) (no (unknown) (unknown) MCV (units (unkno wn) date) unknown) (unknown) (no (unknown) (unknown) MCV 90.9 (units (unkn own) date) unknown) (unknown) (no (unknown) (unknown) Magnesium (units (unkn own) date) unknown) (unknown) (no (unknown) (unknown) Magnesium 2.0 (units (unknown) date) unknown) (unknown) (no (unknown) (unknown) Measles (units (unkno wn) date) unknown) (unknown) (no (unknown) (unknown) Medical History (units (unknown) date) (Reviewed 03/18/22 unknown) @ 04:05 by JULIETTE Alfred) (unknown) (no (unknown) (unknown) Micro UA Comment (units (unknown) date) unknown) (unknown) (no (unknown) (unknown) Micro UA Comment (units (unknown) date) * unknown) 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 Prather was (units (unknown) date) admitted to the unknown) hospital with an episode of chest pain. (unknown) (no (unknown) (unknown) Narrative (units (unkn own) date) unknown) (unknown) (no (unknown) (unknown) Narrative: (units (unk nown) date) unknown) (unknown) (no (unknown) (unknown) Neut # (Auto) (units ( unknown) date) unknown) (unknown) (no (unknown) (unknown) Neut # (Auto) (units ( unknown) date) 4400 unknown) (unknown) (no (unknown) (unknown) Neut % (Auto) (units ( unknown) date) unknown) (unknown) (no (unknown) (unknown) Neut % (Auto) (units ( unknown) date) 71.1 unknown) (unknown) (no (unknown) (unknown) Objective (units (unkn own) date) unknown) (unknown) (no (unknown) (unknown) Osteoarthritis of (units (unknown) date) knees, bilateral unknown) (unknown) (no (unknown) (unknown) Oxygen Delivery (units (unknown) date) Method unknown) (unknown) (no (unknown) (unknown) Oxygen Delivery (units (unknown) date) Method Room Air unknown) (unknown) (no (unknown) (unknown) Oxygen Delivery (units (unknown) date) Method unknown) (unknown) (no (unknown) (unknown) Oxygen Delivery (units (unknown) date) Method Room Air unknown) (unknown) (no (unknown) (unknown) Oxygen Flow Rate (units (unknown) date) unknown) (unknown) (no (unknown) (unknown) Oxygen Flow Rate (units (unknown) date) 0 unknown) (unknown) (no (unknown) (unknown) Oxygen Flow Rate (units (unknown) date) 0 unknown) (unknown) (no (unknown) (unknown) Oxygen Flow Rate 0 (units (unknown) date) unknown) (unknown) (no (unknown) (unknown) PFSH (units (unkno wn) date) unknown) (unknown) (no (unknown) (unknown) PULM: clear (units (un known) date) bilaterally unknown) (unknown) (no (unknown) (unknown) Patient (units (unkno wn) date) Disposition: Home unknown) (unknown) (no (unknown) (unknown) Patient: (units (unkno wn) date) Jackie Prather S unknown) MR#: (unknown) (no (unknown) (unknown) Per admitting (units ( unknown) date) provider: unknown) (unknown) (no (unknown) (unknown) 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) (unknown) (no (unknown) (unknown) Plt Count (units (unkn own) date) unknown) (unknown) (no (unknown) (unknown) Plt Count 250 (units (unknown) date) unknown) (unknown) (no (unknown) (unknown) Potassium (units (unkn own) date) unknown) (unknown) (no (unknown) (unknown) Potassium 4.5 (units (unknown) date) unknown) (unknown) (no (unknown) (unknown) Prescriptions: (units (unknown) date) unknown) (unknown) (no (unknown) (unknown) 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 Prather unknown) came to the hospital with chest pain. She (unknown) (no (unknown) (unknown) Provider: (units (unkn own) date) Alcon De La Cruz MD unknown) (unknown) (no (unknown) (unknown) Pulse Oximetry (units (unknown) date) unknown) (unknown) (no (unknown) (unknown) Pulse Oximetry 98 (units (unknown) date) 98 96 unknown) (unknown) (no (unknown) (unknown) Pulse Oximetry 99 (units (unknown) date) unknown) (unknown) (no (unknown) (unknown) Pulse Rate 61 (units ( unknown) date) unknown) (unknown) (no (unknown) (unknown) Pulse Rate 71 58 L (units (unknown) date) 64 unknown) (unknown) (no (unknown) (unknown) Pulse Rate 82 82 (units (unknown) date) unknown) (unknown) (no (unknown) (unknown) Quality (units (unkno wn) date) unknown) (unknown) (no (unknown) (unknown) RBC (units (unkno wn) date) unknown) (unknown) (no (unknown) (unknown) RBC 4.32 (units (unkn own) date) unknown) (unknown) (no (unknown) (unknown) RDW (units (unkno wn) date) unknown) (unknown) (no (unknown) (unknown) RDW 14.7 (units (unkn own) date) unknown) (unknown) (no (unknown) (unknown) Reportedly it was (units (unknown) date) relieved with unknown) nitro. When I examined her, she had reproducible (unknown) (no (unknown) (unknown) Respiratory Rate (units (unknown) date) 16 unknown) (unknown) (no (unknown) (unknown) Respiratory Rate (units (unknown) date) 16 16 11 L unknown) (unknown) (no (unknown) (unknown) Respiratory Rate (units (unknown) date) 18 18 unknown) (unknown) (no (unknown) (unknown) Result Diagrams: (units (unknown) date) unknown) (unknown) (no (unknown) (unknown) SARS-CoV-2 (PCR) (units (unknown) date) unknown) (unknown) (no (unknown) (unknown) SARS-CoV-2 (PCR) (units (unknown) date) Negative unknown) (unknown) (no (unknown) (unknown) She recently had a (units (unknown) date) 2 day admission for unknown) adult failure to thrive. She has a (unknown) (no (unknown) (unknown) She was discharged (units (unknown) date) on metoprolol and unknown) losartan. She states she and her son moved (unknown) (no (unknown) (unknown) Signed (units (unkno wn) date) By:<Electronically unknown) signed by Alcon De La Cruz MD> (unknown) (no (unknown) (unknown) Sister (units (unknown) date) Traumatic unknown) amputation (unknown) (no (unknown) (unknown) Smoking Status: (units (unknown) date) Never smoker unknown) (unknown) (no (unknown) (unknown) Social History (units (unknown) date) (Reviewed 03/17/22 unknown) @ 21:36 by Jossue Salcido MD) (unknown) (no (unknown) (unknown) Sodium (units (unkno wn) date) unknown) (unknown) (no (unknown) (unknown) Sodium 140 (units (u nknown) date) unknown) (unknown) (no (unknown) (unknown) Speech and (units (unk nown) date) language unknown) 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 (09/28/12) (unknown) (no (unknown) (unknown) Status post (units (un known) date) arthroscopy unknown) (unknown) (no (unknown) (unknown) Status post biopsy (units (unknown) date) (-2014) unknown) (unknown) (no (unknown) (unknown) Status post breast (units (unknown) date) lumpectomy () unknown) (unknown) (no (unknown) (unknown) Status post (units (un known) date) cholecystectomy unknown) (unknown) (no (unknown) (unknown) 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 (unknown) (no (unknown) (unknown) Status post (units (un known) date) hysterectomy unknown) () (unknown) (no (unknown) (unknown) Summary (units (unkno wn) date) unknown) (unknown) (no (unknown) (unknown) Surgical History (units (unknown) date) (Reviewed 03/18/22 unknown) @ 04:05 by JULIETTE Alfred) (unknown) (no (unknown) (unknown) 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, NYHA (unknown) (no (unknown) (unknown) Temperature (units (un known) date) unknown) (unknown) (no (unknown) (unknown) Temperature 97.1 F (units (unknown) date) L 97.1 F L unknown) (unknown) (no (unknown) (unknown) Temperature 97.5 F (units (unknown) date) L unknown) (unknown) (no (unknown) (unknown) Total Bilirubin (units (unknown) date) unknown) (unknown) (no (unknown) (unknown) Total Bilirubin (units (unknown) date) 0.9 unknown) (unknown) (no (unknown) (unknown) Total Creatine (units (unknown) date) Kinase unknown) (unknown) (no (unknown) (unknown) Total Creatine (units (unknown) date) Kinase < 20 L unknown) (unknown) (no (unknown) (unknown) Total Protein (units ( unknown) date) unknown) (unknown) (no (unknown) (unknown) Total Protein (units ( unknown) date) 7.6 unknown) (unknown) (no (unknown) (unknown) Triglycerides (units ( unknown) date) unknown) (unknown) (no (unknown) (unknown) Triglycerides (units ( unknown) date) 111 unknown) (unknown) (no (unknown) (unknown) Troponin I < (units (unknown) date) 0.012 unknown) (unknown) (no (unknown) (unknown) Troponin I < (units ( unknown) date) 0.012 unknown) (unknown) (no (unknown) (unknown) Ur Culture (units (unk nown) date) Indicated? unknown) (unknown) (no (unknown) (unknown) Ur Culture (units (unk nown) date) Indicated? unknown) Culture not indicate (unknown) (no (unknown) (unknown) Ur Squamous Epith (units (unknown) date) Cells unknown) (unknown) (no (unknown) (unknown) Ur Squamous Epith (units (unknown) date) Cells 1-5 /hpf unknown) (unknown) (no (unknown) (unknown) Urine Bacteria (units (unknown) date) unknown) (unknown) (no (unknown) (unknown) Urine Bacteria (units (unknown) date) None seen unknown) (unknown) (no (unknown) (unknown) Urine RBC (units (unkn own) date) unknown) (unknown) (no (unknown) (unknown) Urine RBC None (units (unknown) date) seen unknown) (unknown) (no (unknown) (unknown) Urine WBC (units (unkn own) date) unknown) (unknown) (no (unknown) (unknown) Urine WBC (units (unkn own) date) 1-5/hpf unknown) (unknown) (no (unknown) (unknown) VTE (units (unkno wn) date) unknown) (unknown) (no (unknown) (unknown) Vital Signs (units (un known) date) unknown) (unknown) (no (unknown) (unknown) WBC (units (unkno wn) date) unknown) (unknown) (no (unknown) (unknown) WBC 6.2 (units (unkno wn) date) unknown) (unknown) (no (unknown) (unknown) [Embedded Image (units (unknown) date) Not Available] unknown) (unknown) (no (unknown) (unknown) adamant she did (units (unknown) date) not want to be in a unknown) facility and wanted to be discharged home. (unknown) (no (unknown) (unknown) alcohol intake: (units (unknown) date) never unknown) (unknown) (no (unknown) (unknown) ambulance, but (units (unknown) date) does not remember unknown) who. Denies shortness of breath, does endorse (unknown) (no (unknown) (unknown) apixaban, history (units (unknown) date) of heart failure, unknown) hypertension, hyperlipidemia, prior history (unknown) (no (unknown) (unknown) class 2 (06/05/11) (units (unknown) date) unknown) (unknown) (no (unknown) (unknown) denies having (units ( unknown) date) diarrhea. Positive unknown) for urinary burning and constipation, has not (unknown) (no (unknown) (unknown) discharge. (units (unk nown) date) unknown) (unknown) (no (unknown) (unknown) enzymes are within (units (unknown) date) normal limits, unknown) troponins x2 are not negative, UA is negative (unknown) (no (unknown) (unknown) for UTI and (units (un known) date) COVID-19 PCR is unknown) negative. (unknown) (no (unknown) (unknown) had a bm in Patient (units (unknown) date) previously here in unknown) late January for adult failure to thrive, per (unknown) (no (unknown) (unknown) had an APS report (units (unknown) date) filed which noted unknown) concern about living situation, and (unknown) (no (unknown) (unknown) hand (units (unkno wn) date) unknown) (unknown) (no (unknown) (unknown) having pain on the (units (unknown) date) left side of her unknown) neck, right arm. Denies nausea or vomiting, (unknown) (no (unknown) (unknown) history of atrial (units (unknown) date) fibrillation and an unknown) echocardiogram was done on February 17 and (unknown) (no (unknown) (unknown) hospital. She had (units (unknown) date) no shortness of unknown) breath. She had troponins trended and (unknown) (no (unknown) (unknown) household members: (units (unknown) date) children unknown) (unknown) (no (unknown) (unknown) into the house (units (unknown) date) they previously unknown) lived in and had to give up her trailer. (unknown) (no (unknown) (unknown) left sided chest (units (unknown) date) pain. Otherwise her unknown) symptoms completely resolved in the (unknown) (no (unknown) (unknown) negative. She had (units (unknown) date) a low risk stress unknown) test. She was stable for discharge. She has (unknown) (no (unknown) (unknown) nitroglycerin at (units (unknown) date) home and the pain unknown) resolved. States 'someone' called the (unknown) (no (unknown) (unknown) of CVA, presents (units (unknown) date) to the emergency unknown) department with chest pain. She took (unknown) (no (unknown) (unknown) patient she is (units (unknown) date) living in a better unknown) situation. (unknown) (no (unknown) (unknown) pressure is 202/98 (units (unknown) date) however in the ED unknown) her systolic blood pressure was actually (unknown) (no (unknown) (unknown) recommendation for (units (unknown) date) placement. Patient unknown) clearly could make decisions and was (unknown) (no (unknown) (unknown) relief. (units (unkno wn) date) unknown) (unknown) (no (unknown) (unknown) she was found to (units (unknown) date) have an EF of unknown) 35-40% 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 (unknown) (no (unknown) (unknown) was not abnormal. (units (unknown) date) She should follow unknown) up with her PCP in one week. (unknown) (no (unknown) (unknown) weighs 62.2 kg (units (unknown) date) with a BMI of 20.2. unknown) CBC and chemistries are unremarkable, liver Result panel 23 (unknown) (no date) (unknown) (unknown) (no value) (units (un known) unknown) (unknown) (no date) (unknown) (unknown) Mixed gram + (units ( unknown) juliette. Deemed unknown) unsuitable for further studies. Result panel 24 (unknown) (no (unknown) (unknown) (no value) (units (unk nown) date) unknown) (unknown) (no (unknown) (unknown) Date of Service: (units (unknown) date) 03/18/22 unknown) (unknown) (no (unknown) (unknown) (no value) (units (unk nown) date) unknown) (unknown) (no (unknown) (unknown) - (units (unkno wn) date) unknown) (unknown) (no (unknown) (unknown) 03/17/22 20:07 (units (unknown) date) unknown) (unknown) (no (unknown) (unknown) 03/19/22 1532 (units ( unknown) date) unknown) (unknown) (no (unknown) (unknown) [facility] (units (unknown) date) [address] unknown) [place] [address] (unknown) (no (unknown) (unknown) Progress Note (units ( unknown) date) unknown) (unknown) (no (unknown) (unknown) (no value) (units (unk nown) date) unknown) (unknown) (no (unknown) (unknown) 8. Acute severe (units (unknown) date) protein calorie unknown) malnutrition (unknown) (no (unknown) (unknown) 86-year-old female (units (unknown) date) with known coronary unknown) artery disease, permanent atrial (unknown) (no (unknown) (unknown) APS referral was (units (unknown) date) sent yesterday. unknown) Care management is talking to APS again (unknown) (no (unknown) (unknown) Appears euvolemic (units (unknown) date) presently. unknown) (unknown) (no (unknown) (unknown) Patient is unable (units (unknown) date) to tell me where unknown) she lives. She states she lives 'in the (unknown) (no (unknown) (unknown) Remains rate (units (u nknown) date) controlled. Is on unknown) chronic apixaban. (unknown) (no (unknown) (unknown) Suspect this could (units (unknown) date) be contributing to unknown) her chest pain. It may be she has (unknown) (no (unknown) (unknown) Uncertain as to (units (unknown) date) her previous unknown) cardiac interventions. She does have a scar (unknown) (no (unknown) (unknown) 03/19/22 (units (unkno wn) date) unknown) (unknown) (no (unknown) (unknown) 1. Chest pain (units ( unknown) date) unknown) (unknown) (no (unknown) (unknown) 6. Psychosocial (units (unknown) date) issues / caregiving unknown) issues (unknown) (no (unknown) (unknown) 7. Cognitive (units (u nknown) date) impairment/dementia unknown) (unknown) (no (unknown) (unknown) atrial (units (unkno wn) date) fibrillation, no unknown) acute ST or T-wave changes, unchanged from prior (unknown) (no (unknown) (unknown) code status (units (un known) date) unknown) (unknown) (no (unknown) (unknown) disposition (units (un known) date) unknown) (unknown) (no (unknown) (unknown) in origin. She (units (unknown) date) appears to have unknown) some migratory pain and anxiety. (unknown) (no (unknown) (unknown) patient presented (units (unknown) date) with complaints of unknown) chest pain. Negative workup for [place]. Low (unknown) (no (unknown) (unknown) prophylaxis (units (un known) date) unknown) (unknown) (no (unknown) (unknown) (12/05/17) (units (unk nown) date) unknown) (unknown) (no (unknown) (unknown) (past 8 hours): (units (unknown) date) unknown) (unknown) (no (unknown) (unknown) 08:00 (units (unkno wn) date) unknown) (unknown) (no (unknown) (unknown) 08:00 03/19/22 (units (unknown) date) unknown) (unknown) (no (unknown) (unknown) 09:55 03/19/22 (units (unknown) date) unknown) (unknown) (no (unknown) (unknown) 10:15 (units (unkno wn) date) unknown) (unknown) (no (unknown) (unknown) 11:46 03/19/22 (units (unknown) date) unknown) (unknown) (no (unknown) (unknown) 2. Atrial (units (unkn own) date) fibrillation, felt unknown) to be permanent (unknown) (no (unknown) (unknown) 3. Coronary (units (u nknown) date) artery disease unknown) (unknown) (no (unknown) (unknown) 4. Chronic GERD (units (unknown) date) unknown) (unknown) (no (unknown) (unknown) 5. CHF (units (unkno wn) date) unknown) (unknown) (no (unknown) (unknown) ABD: Soft, mildly (units (unknown) date) diffusely tender, unknown) nondistended,, BT present in all 4 (unknown) (no (unknown) (unknown) Abdominal pain (units (unknown) date) unknown) (unknown) (no (unknown) (unknown) Acute pancreatitis (units (unknown) date) unknown) (unknown) (no (unknown) (unknown) Age/Sex: 86 / F (units (unknown) date) unknown) (unknown) (no (unknown) (unknown) Anesthesia (units (unk nown) date) unknown) (unknown) (no (unknown) (unknown) Anticoagulated (units (unknown) date) unknown) (unknown) (no (unknown) (unknown) Anxiety (units (unkno wn) date) unknown) 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 () (unknown) (no (unknown) (unknown) 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 (09/28/12) (unknown) (no (unknown) (unknown) Assessment + Plan (units (unknown) date) unknown) (unknown) (no (unknown) (unknown) Assessment + Plan (units (unknown) date) narrative: unknown) (unknown) (no (unknown) (unknown) Asthma (units (unkno wn) date) unknown) (unknown) (no (unknown) (unknown) Blood Pressure (units (unknown) date) 157/72 H unknown) (unknown) (no (unknown) (unknown) Blood Pressure (units (unknown) date) 184/89 H 175/99 H unknown) 153/68 H (unknown) (no (unknown) (unknown) Breast cancer (units ( unknown) date) (-2001) unknown) (unknown) (no (unknown) (unknown) 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) unknown) (unknown) (no (unknown) (unknown) CHEST: Respiratory (units (unknown) date) excursions unknown) symmetric, CTAB (unknown) (no (unknown) (unknown) CV: RRR, no M/R/G, (units (unknown) date) she does have point unknown) tenderness across her entire chest (unknown) (no (unknown) (unknown) Calcified nodule (units (unknown) date) unknown) (unknown) (no (unknown) (unknown) Care management (units (unknown) date) notes they have unknown) been unable to get in touch with the son today (unknown) (no (unknown) (unknown) 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 (unknown) (no (unknown) (unknown) Cervical cancer, (units (unknown) date) FIGO stage I unknown) (unknown) (no (unknown) (unknown) Cholelithiasis (units (unknown) date) unknown) (unknown) (no (unknown) (unknown) Chronic back pain (units (unknown) date) unknown) (unknown) (no (unknown) (unknown) Critical Care (units ( unknown) date) time: unknown) (unknown) (no (unknown) (unknown) : 1935 (units (unknown) date) Acct:[id number] unknown) (unknown) (no (unknown) (unknown) Date Patient Seen: (units (unknown) date) 03/19/22 unknown) (unknown) (no (unknown) (unknown) Deep Vein (units (unkn own) date) Thrombosis/Pulmonar unknown) y Embolism Present on Admission: No (unknown) (no (unknown) (unknown) Developmental (units ( unknown) date) disorder unknown) (unknown) (no (unknown) (unknown) Diarrhea (units (unkno wn) date) unknown) (unknown) (no (unknown) (unknown) ECG (units (unkno wn) date) unknown) (unknown) (no (unknown) (unknown) EXTR: warm, well (units (unknown) date) perfused, no C/C/E unknown) (unknown) (no (unknown) (unknown) Essential (units (unkn own) date) hypertension unknown) (09/28/12) (unknown) (no (unknown) (unknown) Exam (units (unkno wn) date) unknown) (unknown) (no (unknown) (unknown) Exam Narrative: (units (unknown) date) unknown) (unknown) (no (unknown) (unknown) Failure to thrive (units (unknown) date) in adult unknown) (unknown) (no (unknown) (unknown) Family History (units (unknown) date) (Reviewed 03/18/22 unknown) @ 04:05 by JULIETTE Alfred) (unknown) (no (unknown) (unknown) Father (units (unknown) date) Myocardial infarct unknown) (unknown) (no (unknown) (unknown) Fibrocystic breast (units (unknown) date) disease unknown) (unknown) (no (unknown) (unknown) Full (units (unkno wn) date) unknown) (unknown) (no (unknown) (unknown) GEN: (units (unkno wn) date) frail-appearing unknown) elderly female,Alert and oriented x 2, appears anxious (unknown) (no (unknown) (unknown) GERD (units (unkno wn) date) (gastroesophageal unknown) reflux disease) (unknown) (no (unknown) (unknown) HEENT:NC, Face (units (unknown) date) symmetric unknown) (unknown) (no (unknown) (unknown) History of colon (units (unknown) date) polyps (09/28/12) unknown) (unknown) (no (unknown) (unknown) History of left (units (unknown) date) breast cancer unknown) () (unknown) (no (unknown) (unknown) Hyperlipidemia (units (unknown) date) unknown) (unknown) (no (unknown) (unknown) I am unable to (units (unknown) date) verify her history. 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) unknown) (unknown) (no (unknown) (unknown) Impression: (units (un known) date) unknown) (unknown) (no (unknown) (unknown) Interval history: (units (unknown) date) unknown) (unknown) (no (unknown) (unknown) Labs (units (unkno wn) date) unknown) (unknown) (no (unknown) (unknown) [id number] (units (unk nown) date) unknown) (unknown) (no (unknown) (unknown) MUSCULOSKEL: (units (u nknown) date) patient complains unknown) of pain in most spots that I touch her, (unknown) (no (unknown) (unknown) Measles (units (unkno wn) date) unknown) (unknown) (no (unknown) (unknown) Medical History (units (unknown) date) (Reviewed 03/18/22 unknown) @ 04:05 by JULIETTE Alfred) 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) (unknown) (no (unknown) (unknown) Mother (units (unknown) date) Maternal unknown) complication related to childbirth (unknown) (no (unknown) (unknown) NEURO: Alert and (units (unknown) date) oriented x 3, unknown) nonfocal (unknown) (no (unknown) (unknown) Narrative (units (unkn own) date) unknown) (unknown) (no (unknown) (unknown) Objective (units (unkn own) date) unknown) (unknown) (no (unknown) (unknown) On apixaban (units (un known) date) unknown) (unknown) (no (unknown) (unknown) Osteoarthritis of (units (unknown) date) knees, bilateral unknown) (unknown) (no (unknown) (unknown) Oxygen Delivery (units (unknown) date) Method unknown) (unknown) (no (unknown) (unknown) Oxygen Delivery (units (unknown) date) Method Room Air unknown) (unknown) (no (unknown) (unknown) Oxygen Delivery (units (unknown) date) Method Room Air unknown) (unknown) (no (unknown) (unknown) Oxygen Flow Rate (units (unknown) date) 0 unknown) (unknown) (no (unknown) (unknown) Oxygen Flow Rate 0 (units (unknown) date) unknown) (unknown) (no (unknown) (unknown) Oxygen Flow Rate 0 (units (unknown) date) unknown) (unknown) (no (unknown) (unknown) PFSH (units (unkno wn) date) unknown) (unknown) (no (unknown) (unknown) Pain was minimally (units (unknown) date) responsive to unknown) nitroglycerin. Suspect this is musculoskeletal (unknown) (no (unknown) (unknown) Patient has had a (units (unknown) date) 7 and 0.5% weight unknown) loss over the last 3 months. 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 unknown) () (unknown) (no (unknown) (unknown) Provider: (units (unkn own) date) Linda David MD unknown) (unknown) (no (unknown) (unknown) Pulse Oximetry 97 (units (unknown) date) 94 unknown) (unknown) (no (unknown) (unknown) Pulse Oximetry 99 (units (unknown) date) unknown) (unknown) (no (unknown) (unknown) Pulse Rate 58 L 70 (units (unknown) date) 69 unknown) (unknown) (no (unknown) (unknown) Pulse Rate 63 (units ( unknown) date) unknown) (unknown) (no (unknown) (unknown) Quality (units (unkno wn) date) unknown) (unknown) (no (unknown) (unknown) Respiratory Rate (units (unknown) date) 16 unknown) (unknown) (no (unknown) (unknown) Respiratory Rate (units (unknown) date) 16 unknown) (unknown) (no (unknown) (unknown) Result Diagrams: (units (unknown) date) unknown) (unknown) (no (unknown) (unknown) SKIN: warm and (units (unknown) date) dry, no rash unknown) (unknown) (no (unknown) (unknown) Signed (units (unkno wn) date) By:<Electronically unknown) signed by Linda David MD> (unknown) (no (unknown) (unknown) Sister (units (unknown) date) Traumatic unknown) amputation (unknown) (no (unknown) (unknown) Smoking Status: (units (unknown) date) Never smoker unknown) (unknown) (no (unknown) (unknown) Social History (units (unknown) date) (Reviewed 03/17/22 unknown) @ 21:36 by Jossue Salcido MD) (unknown) (no (unknown) (unknown) Speech and (units (unk nown) date) language unknown) 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 (09/28/12) (unknown) (no (unknown) (unknown) Status post (units (un known) date) arthroscopy unknown) (unknown) (no (unknown) (unknown) Status post biopsy (units (unknown) date) () unknown) (unknown) (no (unknown) (unknown) Status post breast (units (unknown) date) lumpectomy () unknown) (unknown) (no (unknown) (unknown) Status post (units (un known) date) cholecystectomy unknown) (unknown) (no (unknown) (unknown) 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 (unknown) (no (unknown) (unknown) Status post (units (un known) date) hysterectomy unknown) () (unknown) (no (unknown) (unknown) Subjective (units (unk nown) date) unknown) (unknown) (no (unknown) (unknown) Surgical History (units (unknown) date) (Reviewed 03/18/22 unknown) @ 04:05 by JULIETTE Alfred) (unknown) (no (unknown) (unknown) 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, NYHA (unknown) (no (unknown) (unknown) Temperature 96.4 F (units (unknown) date) L unknown) (unknown) (no (unknown) (unknown) Temperature 97.4 F (units (unknown) date) L unknown) (unknown) (no (unknown) (unknown) Time Spent With (units (unknown) date) Patient unknown) (unknown) (no (unknown) (unknown) VTE (units (unkno wn) date) unknown) (unknown) (no (unknown) (unknown) Vital Signs (units (un known) date) unknown) (unknown) (no (unknown) (unknown) [Embedded Image (units (unknown) date) Not Available] unknown) (unknown) (no (unknown) (unknown) alcohol intake: (units (unknown) date) never unknown) (unknown) (no (unknown) (unknown) also has of (units (un known) date) substernal scar unknown) which she states was related to her heart disease. (unknown) (no (unknown) (unknown) and burning pain (units (unknown) date) down her left leg. unknown) She also complains of right-sided chest (unknown) (no (unknown) (unknown) anywhere I place (units (unknown) date) the stethoscope unknown) (unknown) (no (unknown) (unknown) approved for (units (u nknown) date) discharge unknown) yesterday, but staff could not get her son on the phone (unknown) (no (unknown) (unknown) as well. Earlier (units (unknown) date) this afternoon, unknown) patient complained of chest pain which was (unknown) (no (unknown) (unknown) be performed. (units ( unknown) date) unknown) (unknown) (no (unknown) (unknown) caregiving and (units (unknown) date) safety at home. unknown) (unknown) (no (unknown) (unknown) chest pain. (units (un known) date) Patient underwent unknown) stress testing and had a low risk scan. She was (unknown) (no (unknown) (unknown) class 2 (06/05/11) (units (unknown) date) unknown) (unknown) (no (unknown) (unknown) describes feeling (units (unknown) date) dizzy like things unknown) are spinning, complains of abdominal pain, (unknown) (no (unknown) (unknown) diastolic), (units (unk nown) date) hypertension, unknown) hyperlipidemia, and prior stroke who was admitted with (unknown) (no (unknown) (unknown) does not believe (units (unknown) date) she has had It unknown) here. (unknown) (no (unknown) (unknown) esophageal spasm (units (unknown) date) that is responsive unknown) to nitroglycerin. (unknown) (no (unknown) (unknown) fibrillation on (units (unknown) date) apixaban, history unknown) of div hurt failure ( unknown if systolic or (unknown) (no (unknown) (unknown) home. APS (units (unk nown) date) referral was made unknown) yesterday in light of ongoing caregiving concerns. (unknown) (no (unknown) (unknown) household members: (units (unknown) date) children unknown) (unknown) (no (unknown) (unknown) noted over her (units (unknown) date) left chest which unknown) she states was related to cancer surgery. She (unknown) (no (unknown) (unknown) nurses as being (units (unknown) date) focal and to me as unknown) being more generalized. EKG is unchanged. (unknown) (no (unknown) (unknown) nutritional (units (un known) date) supplementation as unknown) tolerated. (unknown) (no (unknown) (unknown) pain. She states (units (unknown) date) she has been unknown) anxious and takes 'a nerve pill' at baseline and (unknown) (no (unknown) (unknown) quadrants, no (units ( unknown) date) organomegaly or unknown) masses appreciated (unknown) (no (unknown) (unknown) recurrent. She (units (unknown) date) was describing it unknown) as 'crushing'. EKG was performed which (unknown) (no (unknown) (unknown) revealed atrial (units (unknown) date) fibrillation with unknown) no acute changes. She was given nitroglycerin (unknown) (no (unknown) (unknown) risk cardiac (units (u nknown) date) stress test. unknown) Recurrent symptoms today which she described the (unknown) (no (unknown) (unknown) shoulder, chest, (units (unknown) date) abdomen, legs unknown) (unknown) (no (unknown) (unknown) that she hurts all (units (unknown) date) over. She unknown) describes the chest pain as crushing but also (unknown) (no (unknown) (unknown) today regarding (units (unknown) date) difficulty unknown) contacting the POA for discharge. (unknown) (no (unknown) (unknown) today; this time (units (unknown) date) is exclusive of unknown) procedural time. (unknown) (no (unknown) (unknown) who is her POA. (units (unknown) date) She remained in the unknown) hospital pending his ability to take her (unknown) (no (unknown) (unknown) with no dramatic (units (unknown) date) improvement. I am unknown) seeing her shortly thereafter. She states (unknown) (no (unknown) (unknown) jones'. Suspect (units (unknown) date) some degree of unknown) underlying dementia. Will request that a [place] Result panel 25 (unknown) (no date) (unknown) (unknown) 0.95 mg/dL (unkn own) (unknown) (no date) (unknown) (unknown) 104 mmol/L (unkn own) (unknown) (no date) (unknown) (unknown) 137 mmol/L (unkn own) (unknown) (no date) (unknown) (unknown) 2.1 mg/dL (unkn own) (unknown) (no date) (unknown) (unknown) 27 mmol/L (unkn own) (unknown) (no date) (unknown) (unknown) 39 mg/dL (unkn own) (unknown) (no date) (unknown) (unknown) 4.8 mmol/L (unkn own) (unknown) (no date) (unknown) (unknown) 41.1 (units unknown) (unknown) (unknown) (no date) (unknown) (unknown) 59 mL/min (unkn own) (unknown) (no date) (unknown) (unknown) 8.8 mg/dL (unkn own) (unknown) (no date) (unknown) (unknown) 94 mg/dL (unkn own) Result panel 26 (unknown) (no date) (unknown) (unknown) 0 /uL (unkn own) (unknown) (no date) (unknown) (unknown) 0.7 % (unkn own) (unknown) (no date) (unknown) (unknown) 10.3 % (unkn own) (unknown) (no date) (unknown) (unknown) 11.4 g/dL (unkn own) (unknown) (no date) (unknown) (unknown) 15.2 % (unkn own) (unknown) (no date) (unknown) (unknown) 2.6 % (unkn own) (unknown) (no date) (unknown) (unknown) 200 /uL (unkn own) (unknown) (no date) (unknown) (unknown) 2100 /uL (unkn own) (unknown) (no date) (unknown) (unknown) 242 X10 3/uL (unkn own) (unknown) (no date) (unknown) (unknown) 29.8 PG (unkn own) (unknown) (no date) (unknown) (unknown) 3.82 X10 6/uL (unkn own) (unknown) (no date) (unknown) (unknown) 31.7 % (unkn own) (unknown) (no date) (unknown) (unknown) 33.1 % (unkn own) (unknown) (no date) (unknown) (unknown) 34.4 % (unkn own) (unknown) (no date) (unknown) (unknown) 3700 /uL (unkn own) (unknown) (no date) (unknown) (unknown) 54.7 % (unkn own) (unknown) (no date) (unknown) (unknown) 6.7 X10 3/uL (unkn own) (unknown) (no date) (unknown) (unknown) 700 /uL (unkn own) (unknown) (no date) (unknown) (unknown) 90.0 fL (unkn own) Result panel 27 (unknown) (no (unknown) (unknown) (no value) (units (unk nown) date) unknown) (unknown) (no (unknown) (unknown) Date of Service: (units (unknown) date) 03/18/22 unknown) (unknown) (no (unknown) (unknown) (no value) (units (unk nown) date) unknown) (unknown) (no (unknown) (unknown) - (units (unkno wn) date) unknown) (unknown) (no (unknown) (unknown) 03/20/22 06:42 (units (unknown) date) unknown) (unknown) (no (unknown) (unknown) 03/20/22 1535 (units ( unknown) date) unknown) (unknown) (no (unknown) (unknown) [facility] (units (unknown) date) [address] unknown) [place] [address] (unknown) (no (unknown) (unknown) Laboratory Results (units (unknown) date) - last 24 hr unknown) (unknown) (no (unknown) (unknown) Progress Note (units ( unknown) date) unknown) (unknown) (no (unknown) (unknown) (no value) (units (unk nown) date) unknown) (unknown) (no (unknown) (unknown) 03/20/22 03/20/22 (units (unknown) date) unknown) (unknown) (no (unknown) (unknown) 06:42 06:42 (units (un known) date) unknown) (unknown) (no (unknown) (unknown) 03/20/22 (units (unkno wn) date) unknown) (unknown) (no (unknown) (unknown) consistent with (units (unknown) date) dementia. She will unknown) need 24 supervision. (unknown) (no (unknown) (unknown) (12/05/17) (units (unk nown) date) unknown) (unknown) (no (unknown) (unknown) (past 8 hours): (units (unknown) date) unknown) (unknown) (no (unknown) (unknown) 08:00 (units (unkno wn) date) unknown) (unknown) (no (unknown) (unknown) 08:00 03/20/22 (units (unknown) date) unknown) (unknown) (no (unknown) (unknown) 08:46 03/20/22 (units (unknown) date) unknown) (unknown) (no (unknown) (unknown) 11:00 a.m. last (units (unknown) date) night. She is unknown) hopeful to be able to go home once her son is (unknown) (no (unknown) (unknown) 11:44 03/20/22 (units (unknown) date) unknown) (unknown) (no (unknown) (unknown) 14:00 (units (unkno wn) date) unknown) (unknown) (no (unknown) (unknown) 2. 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 Chronic GERD (units (unknown) date) unknown) (unknown) (no (unknown) (unknown) 5. CHF (units (unkno wn) date) unknown) (unknown) (no (unknown) (unknown) 86-year-old female (units (unknown) date) with known coronary unknown) artery disease, permanent atrial (unknown) (no (unknown) (unknown) ? 8. Acute severe (units (unknown) date) protein calorie unknown) malnutrition (unknown) (no (unknown) (unknown) ? APS referral was (units (unknown) date) sent 2 days ago. unknown) Continue to await for contact from (unknown) (no (unknown) (unknown) ? Appears (units (unkn own) date) euvolemic unknown) presently. (unknown) (no (unknown) (unknown) ? Remains rate (units (unknown) date) controlled.? Is on unknown) chronic apixaban. (unknown) (no (unknown) (unknown) ? Suspect this (units (unknown) date) could be unknown) contributing to her chest pain.? It may be she has (unknown) (no (unknown) (unknown) ? Uncertain as to (units (unknown) date) her previous unknown) cardiac interventions.? She does have a scar (unknown) (no (unknown) (unknown) ?1. Chest pain (units (unknown) date) unknown) (unknown) (no (unknown) (unknown) ?6. Psychosocial (units (unknown) date) issues / caregiving unknown) issues (unknown) (no (unknown) (unknown) ?7. Cognitive (units ( unknown) date) impairment/dementia unknown) (unknown) (no (unknown) (unknown) ?A slums assessment (units (unknown) date) was performed by unknown) Occupational therapy with a score of 13/30, (unknown) (no (unknown) (unknown) ?code status (units (u nknown) date) unknown) (unknown) (no (unknown) (unknown) ?disposition (units (u nknown) date) unknown) (unknown) (no (unknown) (unknown) ?patient presented (units (unknown) date) with complaints of unknown) chest pain.? Negative workup for [place]. Low (unknown) (no (unknown) (unknown) ?prophylaxis (units (u nknown) date) unknown) (unknown) (no (unknown) (unknown) ABD: (units (unkno wn) date) Soft,?nontender, unknown) nondistended,, BT present in all 4 quadrants, no (unknown) (no (unknown) (unknown) Abdominal pain (units (unknown) date) unknown) (unknown) (no (unknown) (unknown) Acute pancreatitis (units (unknown) date) unknown) (unknown) (no (unknown) (unknown) Age/Sex: 86 / F (units (unknown) date) unknown) (unknown) (no (unknown) (unknown) Anesthesia (units (unk nown) date) unknown) (unknown) (no (unknown) (unknown) Anticoagulated (units (unknown) date) unknown) (unknown) (no (unknown) (unknown) Anxiety (units (unkno wn) date) unknown) 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 () (unknown) (no (unknown) (unknown) 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 (09/28/12) (unknown) (no (unknown) (unknown) As noted low risk (units (unknown) date) nuclear stress test unknown) done here. (unknown) (no (unknown) (unknown) Assessment + Plan (units (unknown) date) unknown) (unknown) (no (unknown) (unknown) Assessment + Plan (units (unknown) date) narrative: unknown) (unknown) (no (unknown) (unknown) Asthma (units (unkno wn) date) unknown) (unknown) (no (unknown) (unknown) BUN 39 H (units (unk nown) date) unknown) (unknown) (no (unknown) (unknown) BUN/Creatinine (units (unknown) date) Ratio 41.1 H unknown) (unknown) (no (unknown) (unknown) Baso # (Auto) 0 (units (unknown) date) unknown) (unknown) (no (unknown) (unknown) Baso % (Auto) 0.7 (units (unknown) date) unknown) (unknown) (no (unknown) (unknown) Blood Pressure (units (unknown) date) 135/64 unknown) (unknown) (no (unknown) (unknown) Blood Pressure (units (unknown) date) 138/71 138/71 unknown) (unknown) (no (unknown) (unknown) Breast cancer (units ( unknown) date) (-2001) unknown) (unknown) (no (unknown) (unknown) 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) unknown) (unknown) (no (unknown) (unknown) CHEST: Respiratory (units (unknown) date) excursions unknown) symmetric, CTAB (unknown) (no (unknown) (unknown) CV: Irregularly (units (unknown) date) irregular, no unknown) M/R/G, some point tenderness where the (unknown) (no (unknown) (unknown) Calcified nodule (units (unknown) date) unknown) (unknown) (no (unknown) (unknown) Calcium 8.8 (units ( unknown) date) unknown) (unknown) (no (unknown) (unknown) Carbon Dioxide (units (unknown) date) 27 unknown) (unknown) (no (unknown) (unknown) 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 (unknown) (no (unknown) (unknown) Cervical cancer, (units (unknown) date) FIGO stage I unknown) (unknown) (no (unknown) (unknown) Chloride 104 (units (unknown) date) unknown) (unknown) (no (unknown) (unknown) Cholelithiasis (units (unknown) date) unknown) (unknown) (no (unknown) (unknown) Chronic back pain (units (unknown) date) unknown) (unknown) (no (unknown) (unknown) Creatinine 0.95 (units (unknown) date) unknown) (unknown) (no (unknown) (unknown) Critical Care (units ( unknown) date) time: unknown) (unknown) (no (unknown) (unknown) : 1935 (units (unknown) date) Acct:[id number] unknown) (unknown) (no (unknown) (unknown) Date Patient Seen: (units (unknown) date) 03/20/22 unknown) (unknown) (no (unknown) (unknown) Deep Vein (units (unkn own) date) Thrombosis/Pulmonar unknown) y Embolism Present on Admission: No (unknown) (no (unknown) (unknown) Developmental (units ( unknown) date) disorder unknown) (unknown) (no (unknown) (unknown) Diarrhea (units (unkno wn) date) unknown) (unknown) (no (unknown) (unknown) EXTR: warm, well (units (unknown) date) perfused, no C/C/E unknown) (unknown) (no (unknown) (unknown) Eos # (Auto) 200 (units (unknown) date) unknown) (unknown) (no (unknown) (unknown) Eos % (Auto) 2.6 (units (unknown) date) unknown) (unknown) (no (unknown) (unknown) Essential (units (unkn own) date) hypertension unknown) (09/28/12) (unknown) (no (unknown) (unknown) Estimated GFR 59 (units (unknown) date) L unknown) (unknown) (no (unknown) (unknown) Exam (units (unkno wn) date) unknown) (unknown) (no (unknown) (unknown) Exam Narrative: (units (unknown) date) unknown) (unknown) (no (unknown) (unknown) Failure to thrive (units (unknown) date) in adult unknown) (unknown) (no (unknown) (unknown) Family History (units (unknown) date) (Reviewed 03/18/22 unknown) @ 04:05 by JULIETTE Alfred) (unknown) (no (unknown) (unknown) Father (units (unknown) date) Myocardial infarct unknown) (unknown) (no (unknown) (unknown) Fibrocystic breast (units (unknown) date) disease unknown) (unknown) (no (unknown) (unknown) Full (units (unkno wn) date) unknown) (unknown) (no (unknown) (unknown) GEN:? (units (unkno wn) date) frail-appearing unknown) elderly female,Alert and oriented x 3,?much more calm (unknown) (no (unknown) (unknown) GERD (units (unkno wn) date) (gastroesophageal unknown) reflux disease) (unknown) (no (unknown) (unknown) Glucose 94 (units (u nknown) date) unknown) (unknown) (no (unknown) (unknown) HEENT:NC, Face (units (unknown) date) symmetric unknown) (unknown) (no (unknown) (unknown) Hct 34.4 L (units (un known) date) unknown) (unknown) (no (unknown) (unknown) Hgb 11.4 L (units (un known) date) unknown) (unknown) (no (unknown) (unknown) History of colon (units (unknown) date) polyps (09/28/12) unknown) (unknown) (no (unknown) (unknown) History of left (units (unknown) date) breast cancer unknown) (-2008) (unknown) (no (unknown) (unknown) Hyperlipidemia (units (unknown) date) 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) unknown) (unknown) (no (unknown) (unknown) Interval history: (units (unknown) date) unknown) (unknown) (no (unknown) (unknown) Labs (units (unkno wn) date) unknown) (unknown) (no (unknown) (unknown) Labs: (units (unkno wn) date) unknown) (unknown) (no (unknown) (unknown) Lymph # (Auto) (units (unknown) date) 2100 unknown) (unknown) (no (unknown) (unknown) Lymph % (Auto) (units (unknown) date) 31.7 unknown) (unknown) (no (unknown) (unknown) [id number] (units (unk nown) date) unknown) (unknown) (no (unknown) (unknown) MCH 29.8 (units (unkn own) date) unknown) (unknown) (no (unknown) (unknown) MCHC 33.1 (units (unk nown) date) unknown) (unknown) (no (unknown) (unknown) MCV 90.0 (units (unkn own) date) unknown) (unknown) (no (unknown) (unknown) Magnesium 2.1 (units (unknown) date) unknown) (unknown) (no (unknown) (unknown) Measles (units (unkno wn) date) unknown) (unknown) (no (unknown) (unknown) Medical History (units (unknown) date) (Reviewed 03/18/22 unknown) @ 04:05 by JULIETTE Alfred) 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) (unknown) (no (unknown) (unknown) [place] # (Auto) 700 (units (unknown) date) unknown) (unknown) (no (unknown) (unknown) [place] % (Auto) (units ( unknown) date) 10.3 unknown) (unknown) (no (unknown) (unknown) Mother (units (unknown) date) Maternal unknown) complication related to childbirth (unknown) (no (unknown) (unknown) NEURO: Alert and (units (unknown) date) oriented x 3, unknown) nonfocal (unknown) (no (unknown) (unknown) Narrative (units (unkn own) date) unknown) (unknown) (no (unknown) (unknown) Neut # (Auto) (units ( unknown) date) 3700 unknown) (unknown) (no (unknown) (unknown) Neut % (Auto) (units ( unknown) date) 54.7 unknown) (unknown) (no (unknown) (unknown) Objective (units (unkn own) date) unknown) (unknown) (no (unknown) (unknown) On apixaban (units (un known) date) unknown) (unknown) (no (unknown) (unknown) Osteoarthritis of (units (unknown) date) knees, bilateral unknown) (unknown) (no (unknown) (unknown) Oxygen Delivery (units (unknown) date) Method Room Air unknown) (unknown) (no (unknown) (unknown) Oxygen Delivery (units (unknown) date) Method Room Air unknown) (unknown) (no (unknown) (unknown) Oxygen Delivery (units (unknown) date) Method Room Air unknown) (unknown) (no (unknown) (unknown) Oxygen Flow Rate (units (unknown) date) 0 unknown) (unknown) (no (unknown) (unknown) Oxygen Flow Rate 0 (units (unknown) date) unknown) (unknown) (no (unknown) (unknown) Oxygen Flow Rate 0 (units (unknown) date) unknown) (unknown) (no (unknown) (unknown) PFSH (units (unkno wn) date) unknown) (unknown) (no (unknown) (unknown) Patient has had a (units (unknown) date) 7 and 0.5% weight unknown) loss over the last 3 months.? 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) () (unknown) (no (unknown) (unknown) 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 unknown) () (unknown) (no (unknown) (unknown) Provider: (units (unkn own) date) Linda David MD unknown) (unknown) (no (unknown) (unknown) Pulse Oximetry 96 (units (unknown) date) unknown) (unknown) (no (unknown) (unknown) Pulse Oximetry 98 (units (unknown) date) unknown) (unknown) (no (unknown) (unknown) Pulse Rate 110 H (units (unknown) date) 110 H unknown) (unknown) (no (unknown) (unknown) Pulse Rate 65 (units ( unknown) date) unknown) (unknown) (no (unknown) (unknown) Quality (units (unkno wn) date) unknown) (unknown) (no (unknown) (unknown) RBC 3.82 L (units (un known) date) unknown) (unknown) (no (unknown) (unknown) RDW 15.2 H (units (un known) date) unknown) (unknown) (no (unknown) (unknown) Respiratory Rate (units (unknown) date) 16 unknown) (unknown) (no (unknown) (unknown) Respiratory Rate (units (unknown) date) 18 unknown) (unknown) (no (unknown) (unknown) Result Diagrams: (units (unknown) date) unknown) (unknown) (no (unknown) (unknown) SKIN: warm and (units (unknown) date) dry, no rash unknown) (unknown) (no (unknown) (unknown) Signed (units (unkno wn) date) By:<Electronically unknown) signed by Linda David MD> (unknown) (no (unknown) (unknown) Sister (units (unknown) date) Traumatic unknown) amputation (unknown) (no (unknown) (unknown) Smoking Status: (units (unknown) date) Never smoker unknown) (unknown) (no (unknown) (unknown) Social History (units (unknown) date) (Reviewed 03/17/22 unknown) @ 21:36 by Jossue Salcido MD) (unknown) (no (unknown) (unknown) Sodium 137 (units (u nknown) date) unknown) (unknown) (no (unknown) (unknown) Speech and (units (unk nown) date) language unknown) 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 (09/28/12) (unknown) (no (unknown) (unknown) Status post (units (un known) date) arthroscopy unknown) (unknown) (no (unknown) (unknown) Status post biopsy (units (unknown) date) (-2014) unknown) (unknown) (no (unknown) (unknown) Status post breast (units (unknown) date) lumpectomy () unknown) (unknown) (no (unknown) (unknown) Status post (units (un known) date) cholecystectomy unknown) (unknown) (no (unknown) (unknown) 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 (unknown) (no (unknown) (unknown) Status post (units (un known) date) hysterectomy unknown) () (unknown) (no (unknown) (unknown) Subjective (units (unk nown) date) unknown) (unknown) (no (unknown) (unknown) Surgical History (units (unknown) date) (Reviewed 03/18/22 unknown) @ 04:05 by JULIETTE Alfred) (unknown) (no (unknown) (unknown) 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, NYHA (unknown) (no (unknown) (unknown) Temperature 96.2 F (units (unknown) date) L unknown) (unknown) (no (unknown) (unknown) Temperature 96.7 F (units (unknown) date) L unknown) (unknown) (no (unknown) (unknown) Time Spent With (units (unknown) date) Patient unknown) (unknown) (no (unknown) (unknown) VTE (units (unkno wn) date) unknown) (unknown) (no (unknown) (unknown) Vital Signs (units (un known) date) unknown) (unknown) (no (unknown) (unknown) WBC 6.7 (units (unkno wn) date) unknown) (unknown) (no (unknown) (unknown) [Embedded Image (units (unknown) date) Not Available] unknown) (unknown) (no (unknown) (unknown) able to pick her (units (unknown) date) up. 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 (unknown) (no (unknown) (unknown) approved for (units (u nknown) date) discharge on February unknown) , but staff could not get her son on the (unknown) (no (unknown) (unknown) caregiver.? (units (un known) date) Patient reports she unknown) has not had any pain since approximately 10 or (unknown) (no (unknown) (unknown) caregiving and (units (unknown) date) safety at home. unknown) (unknown) (no (unknown) (unknown) chest pain.? (units (u nknown) date) Patient underwent unknown) stress testing and had a low risk scan.? She was (unknown) (no (unknown) (unknown) class 2 (06/05/11) (units (unknown) date) unknown) (unknown) (no (unknown) (unknown) concerns.? Care (units (unknown) date) management notes unknown) they have been unable to get in touch with the (unknown) (no (unknown) (unknown) diastolic), (units (unk nown) date) hypertension, unknown) hyperlipidemia, and prior stroke who was admitted with (unknown) (no (unknown) (unknown) esophageal spasm (units (unknown) date) that is responsive unknown) to nitroglycerin. Well controlled today. (unknown) (no (unknown) (unknown) fibrillation on (units (unknown) date) apixaban, history unknown) of div hurt failure ( unknown if systolic or (unknown) (no (unknown) (unknown) her home.? APS (units (unknown) date) referral was made unknown) [facility] in light of ongoing caregiving (unknown) (no (unknown) (unknown) household members: (units (unknown) date) children unknown) (unknown) (no (unknown) (unknown) noted over her (units (unknown) date) left chest which unknown) she states was related to cancer surgery.? She (unknown) (no (unknown) (unknown) nutritional (units (un known) date) supplementation as unknown) tolerated. (unknown) (no (unknown) (unknown) organomegaly or (units (unknown) date) masses appreciated unknown) (unknown) (no (unknown) (unknown) patient's son who (units (unknown) date) is her caregiver. unknown) (unknown) (no (unknown) (unknown) phone who is her (units (unknown) date) POA.? She remained unknown) in the hospital pending his ability to take (unknown) (no (unknown) (unknown) risk cardiac (units (u nknown) date) stress test.? unknown) Likely musculoskeletal in nature. Yesterday she had (unknown) (no (unknown) (unknown) son, who has this (units (unknown) date) to her apartment unknown) and would be her ride home as well as her (unknown) (no (unknown) (unknown) stethoscope was (units (unknown) date) placed unknown) (unknown) (no (unknown) (unknown) symptoms that were (units (unknown) date) very consistent unknown) with musculoskeletal etiology. No symptoms (unknown) (no (unknown) (unknown) today (units (unkno wn) date) unknown) (unknown) (no (unknown) (unknown) today. (units (unkno wn) date) unknown) (unknown) (no (unknown) (unknown) today; this time (units (unknown) date) is exclusive of unknown) procedural time. Result panel 28 (unknown) (no (unknown) (unknown) (no value) (units (unk nown) date) unknown) (unknown) (no (unknown) (unknown) Date of Service: (units (unknown) date) 03/18/22 unknown) (unknown) (no (unknown) (unknown) (no value) (units (unk nown) date) unknown) (unknown) (no (unknown) (unknown) ADDENDUM (units (u nknown) date) unknown) (unknown) (no (unknown) (unknown) - (units (unkno wn) date) unknown) (unknown) (no (unknown) (unknown) 03/20/22 06:42 (units (unknown) date) unknown) (unknown) (no (unknown) (unknown) 03/20/22 1535 (units ( unknown) date) unknown) (unknown) (no (unknown) (unknown) 03/20/22 1712 (units ( unknown) date) unknown) (unknown) (no (unknown) (unknown) [facility] (units (unknown) date) [address] unknown) [place] [address] (unknown) (no (unknown) (unknown) Laboratory Results (units (unknown) date) - last 24 hr unknown) (unknown) (no (unknown) (unknown) Progress Note (units ( unknown) date) unknown) (unknown) (no (unknown) (unknown) (no value) (units (unk nown) date) unknown) (unknown) (no (unknown) (unknown) 03/20/22 03/20/22 (units (unknown) date) unknown) (unknown) (no (unknown) (unknown) 06:42 06:42 (units (un known) date) unknown) (unknown) (no (unknown) (unknown) 03/20/22 (units (unkno wn) date) unknown) (unknown) (no (unknown) (unknown) consistent with (units (unknown) date) dementia. She will unknown) need 24/7 supervision. (unknown) (no (unknown) (unknown) (12/05/17) (units (unk nown) date) unknown) (unknown) (no (unknown) (unknown) (past 8 hours): (units (unknown) date) unknown) (unknown) (no (unknown) (unknown) 08:00 (units (unkno wn) date) unknown) (unknown) (no (unknown) (unknown) 08:00 03/20/22 (units (unknown) date) unknown) (unknown) (no (unknown) (unknown) 08:46 03/20/22 (units (unknown) date) unknown) (unknown) (no (unknown) (unknown) 11:00 a.m. last (units (unknown) date) night. She is unknown) hopeful to be able to go home once her son is (unknown) (no (unknown) (unknown) 11:44 03/20/22 (units (unknown) date) unknown) (unknown) (no (unknown) (unknown) 14:00 (units (unkno wn) date) unknown) (unknown) (no (unknown) (unknown) 2. 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 Chronic GERD (units (unknown) date) unknown) (unknown) (no (unknown) (unknown) 5. CHF (units (unkno wn) date) unknown) (unknown) (no (unknown) (unknown) 86-year-old female (units (unknown) date) with known coronary unknown) artery disease, permanent atrial (unknown) (no (unknown) (unknown) ? 8. Acute severe (units (unknown) date) protein calorie unknown) malnutrition (unknown) (no (unknown) (unknown) ? APS referral was (units (unknown) date) sent 2 days ago. unknown) Continue to await for contact from (unknown) (no (unknown) (unknown) ? Appears (units (unkn own) date) euvolemic unknown) presently. (unknown) (no (unknown) (unknown) ? Remains rate (units (unknown) date) controlled.? Is on unknown) chronic apixaban. (unknown) (no (unknown) (unknown) ? Suspect this (units (unknown) date) could be unknown) contributing to her chest pain.? It may be she has (unknown) (no (unknown) (unknown) ? Uncertain as to (units (unknown) date) her previous unknown) cardiac interventions.? She does have a scar (unknown) (no (unknown) (unknown) ?1. Chest pain (units (unknown) date) unknown) (unknown) (no (unknown) (unknown) ?6. Psychosocial (units (unknown) date) issues / caregiving unknown) issues (unknown) (no (unknown) (unknown) ?7. Cognitive (units ( unknown) date) impairment/dementia unknown) (unknown) (no (unknown) (unknown) ?A slums assessment (units (unknown) date) was performed by unknown) Occupational therapy with a score of 13/30, (unknown) (no (unknown) (unknown) ?code status (units (u nknown) date) unknown) (unknown) (no (unknown) (unknown) ?disposition (units (u nknown) date) unknown) (unknown) (no (unknown) (unknown) ?patient presented (units (unknown) date) with complaints of unknown) chest pain.? Negative workup for [place]. Low (unknown) (no (unknown) (unknown) ?prophylaxis (units (u nknown) date) unknown) (unknown) (no (unknown) (unknown) ABD: (units (unkno wn) date) Soft,?nontender, unknown) nondistended,, BT present in all 4 quadrants, no (unknown) (no (unknown) (unknown) Abdominal pain (units (unknown) date) unknown) (unknown) (no (unknown) (unknown) Acute pancreatitis (units (unknown) date) unknown) (unknown) (no (unknown) (unknown) Addendum (units (unkno wn) date) Documented By: unknown) Linda David MD (unknown) (no (unknown) (unknown) Addendum Signed (units (unknown) date) By: unknown) <Electronically signed by Linda David, (unknown) (no (unknown) (unknown) Age/Sex: 86 / F (units (unknown) date) unknown) (unknown) (no (unknown) (unknown) Anesthesia (units (unk nown) date) unknown) (unknown) (no (unknown) (unknown) Anticoagulated (units (unknown) date) unknown) (unknown) (no (unknown) (unknown) Anxiety (units (unkno wn) date) unknown) 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 () (unknown) (no (unknown) (unknown) 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 (09/28/12) (unknown) (no (unknown) (unknown) As noted low risk (units (unknown) date) nuclear stress test unknown) done here. (unknown) (no (unknown) (unknown) Assessment + Plan (units (unknown) date) unknown) (unknown) (no (unknown) (unknown) Assessment + Plan (units (unknown) date) narrative: unknown) (unknown) (no (unknown) (unknown) Asthma (units (unkno wn) date) unknown) (unknown) (no (unknown) (unknown) BUN 39 H (units (unk nown) date) unknown) (unknown) (no (unknown) (unknown) BUN/Creatinine (units (unknown) date) Ratio 41.1 H unknown) (unknown) (no (unknown) (unknown) Baso # (Auto) 0 (units (unknown) date) unknown) (unknown) (no (unknown) (unknown) Baso % (Auto) 0.7 (units (unknown) date) unknown) (unknown) (no (unknown) (unknown) Blood Pressure (units (unknown) date) 135/64 unknown) (unknown) (no (unknown) (unknown) Blood Pressure (units (unknown) date) 138/71 138/71 unknown) (unknown) (no (unknown) (unknown) Breast cancer (units ( unknown) date) (-2001) unknown) (unknown) (no (unknown) (unknown) 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) unknown) (unknown) (no (unknown) (unknown) CHEST: Respiratory (units (unknown) date) excursions unknown) symmetric, CTAB (unknown) (no (unknown) (unknown) CV: Irregularly (units (unknown) date) irregular, no unknown) M/R/G, some point tenderness where the (unknown) (no (unknown) (unknown) Calcified nodule (units (unknown) date) unknown) (unknown) (no (unknown) (unknown) Calcium 8.8 (units ( unknown) date) unknown) (unknown) (no (unknown) (unknown) Carbon Dioxide (units (unknown) date) 27 unknown) (unknown) (no (unknown) (unknown) 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 (unknown) (no (unknown) (unknown) Cervical cancer, (units (unknown) date) FIGO stage I unknown) (unknown) (no (unknown) (unknown) Chloride 104 (units (unknown) date) unknown) (unknown) (no (unknown) (unknown) Cholelithiasis (units (unknown) date) unknown) (unknown) (no (unknown) (unknown) Chronic back pain (units (unknown) date) unknown) (unknown) (no (unknown) (unknown) Creatinine 0.95 (units (unknown) date) unknown) (unknown) (no (unknown) (unknown) Critical Care (units ( unknown) date) time: unknown) (unknown) (no (unknown) (unknown) : 1935 (units (unknown) date) Acct:[id number] unknown) (unknown) (no (unknown) (unknown) Date Patient Seen: (units (unknown) date) 03/20/22 unknown) (unknown) (no (unknown) (unknown) Deep Vein (units (unkn own) date) Thrombosis/Pulmonar unknown) y Embolism Present on Admission: No (unknown) (no (unknown) (unknown) Developmental (units ( unknown) date) disorder unknown) (unknown) (no (unknown) (unknown) Diarrhea (units (unkno wn) date) unknown) (unknown) (no (unknown) (unknown) EXTR: warm, well (units (unknown) date) perfused, no C/C/E unknown) (unknown) (no (unknown) (unknown) Eos # (Auto) 200 (units (unknown) date) unknown) (unknown) (no (unknown) (unknown) Eos % (Auto) 2.6 (units (unknown) date) unknown) (unknown) (no (unknown) (unknown) Essential (units (unkn own) date) hypertension unknown) (09/28/12) (unknown) (no (unknown) (unknown) Estimated GFR 59 (units (unknown) date) L unknown) (unknown) (no (unknown) (unknown) Exam (units (unkno wn) date) unknown) (unknown) (no (unknown) (unknown) Exam Narrative: (units (unknown) date) unknown) (unknown) (no (unknown) (unknown) Failure to thrive (units (unknown) date) in adult unknown) (unknown) (no (unknown) (unknown) Family History (units (unknown) date) (Reviewed 03/18/22 unknown) @ 04:05 by Eliana Barry, [employer]PER[employer]) (unknown) (no (unknown) (unknown) Father (units (unknown) date) Myocardial infarct unknown) (unknown) (no (unknown) (unknown) Fibrocystic breast (units (unknown) date) disease unknown) (unknown) (no (unknown) (unknown) Full (units (unkno wn) date) unknown) (unknown) (no (unknown) (unknown) GEN:? (units (unkno wn) date) frail-appearing unknown) elderly female,Alert and oriented x 3,?much more calm (unknown) (no (unknown) (unknown) GERD (units (unkno wn) date) (gastroesophageal unknown) reflux disease) (unknown) (no (unknown) (unknown) Glucose 94 (units (u nknown) date) unknown) (unknown) (no (unknown) (unknown) HEENT:NC, Face (units (unknown) date) symmetric unknown) (unknown) (no (unknown) (unknown) Hct 34.4 L (units (un known) date) unknown) (unknown) (no (unknown) (unknown) Hgb 11.4 L (units (un known) date) unknown) (unknown) (no (unknown) (unknown) History of colon (units (unknown) date) polyps (09/28/12) unknown) (unknown) (no (unknown) (unknown) History of left (units (unknown) date) breast cancer unknown) () (unknown) (no (unknown) (unknown) Hyperlipidemia (units (unknown) date) 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) unknown) (unknown) (no (unknown) (unknown) Interval history: (units (unknown) date) unknown) (unknown) (no (unknown) (unknown) Labs (units (unkno wn) date) unknown) (unknown) (no (unknown) (unknown) Labs: (units (unkno wn) date) unknown) (unknown) (no (unknown) (unknown) Lymph # (Auto) (units (unknown) date) 2100 unknown) (unknown) (no (unknown) (unknown) Lymph % (Auto) (units (unknown) date) 31.7 unknown) (unknown) (no (unknown) (unknown) [id number] (units (unk nown) date) unknown) (unknown) (no (unknown) (unknown) MCH 29.8 (units (unkn own) date) unknown) (unknown) (no (unknown) (unknown) MCHC 33.1 (units (unk nown) date) unknown) (unknown) (no (unknown) (unknown) MCV 90.0 (units (unkn own) date) unknown) (unknown) (no (unknown) (unknown) MD> 03/20/22 (units (unknown) date) 1713 unknown) (unknown) (no (unknown) (unknown) Magnesium 2.1 (units (unknown) date) unknown) (unknown) (no (unknown) (unknown) Measles (units (unkno wn) date) unknown) (unknown) (no (unknown) (unknown) Medical History (units (unknown) date) (Reviewed 03/18/22 unknown) @ 04:05 by JULIETTE Alfred) (unknown) (no (unknown) (unknown) Message left for (units (unknown) date) patient's son, unknown) [place]. 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 unknown) () (unknown) (no (unknown) (unknown) [place] # (Auto) 700 (units (unknown) date) unknown) (unknown) (no (unknown) (unknown) [place] % (Auto) (units ( unknown) date) 10.3 unknown) (unknown) (no (unknown) (unknown) Mother (units (unknown) date) Maternal unknown) complication related to childbirth (unknown) (no (unknown) (unknown) NEURO: Alert and (units (unknown) date) oriented x 3, unknown) nonfocal (unknown) (no (unknown) (unknown) Narrative (units (unkn own) date) unknown) (unknown) (no (unknown) (unknown) Neut # (Auto) (units ( unknown) date) 3700 unknown) (unknown) (no (unknown) (unknown) Neut % (Auto) (units ( unknown) date) 54.7 unknown) (unknown) (no (unknown) (unknown) Objective (units (unkn own) date) unknown) (unknown) (no (unknown) (unknown) On apixaban (units (un known) date) unknown) (unknown) (no (unknown) (unknown) Osteoarthritis of (units (unknown) date) knees, bilateral unknown) (unknown) (no (unknown) (unknown) Oxygen Delivery (units (unknown) date) Method Room Air unknown) (unknown) (no (unknown) (unknown) Oxygen Delivery (units (unknown) date) Method Room Air unknown) (unknown) (no (unknown) (unknown) Oxygen Delivery (units (unknown) date) Method Room Air unknown) (unknown) (no (unknown) (unknown) Oxygen Flow Rate (units (unknown) date) 0 unknown) (unknown) (no (unknown) (unknown) Oxygen Flow Rate 0 (units (unknown) date) unknown) (unknown) (no (unknown) (unknown) Oxygen Flow Rate 0 (units (unknown) date) unknown) (unknown) (no (unknown) (unknown) PFSH (units (unkno wn) date) unknown) (unknown) (no (unknown) (unknown) Patient has had a (units (unknown) date) 7 and 0.5% weight unknown) loss over the last 3 months.? 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) () (unknown) (no (unknown) (unknown) 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 unknown) () (unknown) (no (unknown) (unknown) Provider: (units (unkn own) date) Linda David MD unknown) (unknown) (no (unknown) (unknown) Pulse Oximetry 96 (units (unknown) date) unknown) (unknown) (no (unknown) (unknown) Pulse Oximetry 98 (units (unknown) date) unknown) (unknown) (no (unknown) (unknown) Pulse Rate 110 H (units (unknown) date) 110 H unknown) (unknown) (no (unknown) (unknown) Pulse Rate 65 (units ( unknown) date) unknown) (unknown) (no (unknown) (unknown) Quality (units (unkno wn) date) unknown) (unknown) (no (unknown) (unknown) RBC 3.82 L (units (un known) date) unknown) (unknown) (no (unknown) (unknown) RDW 15.2 H (units (un known) date) unknown) (unknown) (no (unknown) (unknown) Respiratory Rate (units (unknown) date) 16 unknown) (unknown) (no (unknown) (unknown) Respiratory Rate (units (unknown) date) 16 unknown) (unknown) (no (unknown) (unknown) Result Diagrams: (units (unknown) date) unknown) (unknown) (no (unknown) (unknown) SKIN: warm and (units (unknown) date) dry, no rash unknown) (unknown) (no (unknown) (unknown) Signed (units (unkno wn) date) By:<Electronically unknown) signed by Linda David MD> (unknown) (no (unknown) (unknown) Sister (units (unknown) date) Traumatic unknown) amputation (unknown) (no (unknown) (unknown) Smoking Status: (units (unknown) date) Never smoker unknown) (unknown) (no (unknown) (unknown) Social History (units (unknown) date) (Reviewed 03/17/22 unknown) @ 21:36 by Jossue Salcido MD) (unknown) (no (unknown) (unknown) Sodium 137 (units (u nknown) date) unknown) (unknown) (no (unknown) (unknown) Speech and (units (unk nown) date) language unknown) 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 (09/28/12) (unknown) (no (unknown) (unknown) Status post (units (un known) date) arthroscopy unknown) (unknown) (no (unknown) (unknown) Status post biopsy (units (unknown) date) (-2014) unknown) (unknown) (no (unknown) (unknown) Status post breast (units (unknown) date) lumpectomy (-2008) unknown) (unknown) (no (unknown) (unknown) Status post (units (un known) date) cholecystectomy unknown) (unknown) (no (unknown) (unknown) 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 (unknown) (no (unknown) (unknown) Status post (units (un known) date) hysterectomy unknown) (-2009) (unknown) (no (unknown) (unknown) Subjective (units (unk nown) date) unknown) (unknown) (no (unknown) (unknown) Surgical History (units (unknown) date) (Reviewed 03/18/22 unknown) @ 04:05 by JULIETTE Alfred) (unknown) (no (unknown) (unknown) 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, NYHA (unknown) (no (unknown) (unknown) Temperature 96.2 F (units (unknown) date) L unknown) (unknown) (no (unknown) (unknown) Temperature 96.7 F (units (unknown) date) L unknown) (unknown) (no (unknown) (unknown) Time Spent With (units (unknown) date) Patient unknown) (unknown) (no (unknown) (unknown) VTE (units (unkno wn) date) unknown) (unknown) (no (unknown) (unknown) Vital Signs (units (un known) date) unknown) (unknown) (no (unknown) (unknown) WBC 6.7 (units (unkno wn) date) unknown) (unknown) (no (unknown) (unknown) [Embedded Image (units (unknown) date) Not Available] unknown) (unknown) (no (unknown) (unknown) able to pick her (units (unknown) date) up. 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 (unknown) (no (unknown) (unknown) approved for (units (u nknown) date) discharge on February unknown) , but staff could not get her son on the (unknown) (no (unknown) (unknown) caregiver.? (units (un known) date) Patient reports she unknown) has not had any pain since approximately 10 or (unknown) (no (unknown) (unknown) caregiving and (units (unknown) date) safety at home. unknown) (unknown) (no (unknown) (unknown) chest pain.? (units (u nknown) date) Patient underwent unknown) stress testing and had a low risk scan.? She was (unknown) (no (unknown) (unknown) class 2 (06/05/11) (units (unknown) date) unknown) (unknown) (no (unknown) (unknown) concerns.? Care (units (unknown) date) management notes unknown) they have been unable to get in touch with the (unknown) (no (unknown) (unknown) diastolic), (units (unk nown) date) hypertension, unknown) hyperlipidemia, and prior stroke who was admitted with (unknown) (no (unknown) (unknown) esophageal spasm (units (unknown) date) that is responsive unknown) to nitroglycerin. Well controlled today. (unknown) (no (unknown) (unknown) fibrillation on (units (unknown) date) apixaban, history unknown) of div hurt failure ( unknown if systolic or (unknown) (no (unknown) (unknown) her home.? APS (units (unknown) date) referral was made unknown) March 18 in light of ongoing caregiving (unknown) (no (unknown) (unknown) household members: (units (unknown) date) children unknown) (unknown) (no (unknown) (unknown) noted over her (units (unknown) date) left chest which unknown) she states was related to cancer surgery.? She (unknown) (no (unknown) (unknown) nutritional (units (un known) date) supplementation as unknown) tolerated. (unknown) (no (unknown) (unknown) organomegaly or (units (unknown) date) masses appreciated unknown) (unknown) (no (unknown) (unknown) patient's son who (units (unknown) date) is her caregiver. unknown) (unknown) (no (unknown) (unknown) phone who is her (units (unknown) date) POA.? She remained unknown) in the hospital pending his ability to take (unknown) (no (unknown) (unknown) risk cardiac (units (u nknown) date) stress test.? unknown) Likely musculoskeletal in nature. Yesterday she had (unknown) (no (unknown) (unknown) son, who has this (units (unknown) date) to her apartment unknown) and would be her ride home as well as her (unknown) (no (unknown) (unknown) stethoscope was (units (unknown) date) placed unknown) (unknown) (no (unknown) (unknown) symptoms that were (units (unknown) date) very consistent unknown) with musculoskeletal etiology. No symptoms (unknown) (no (unknown) (unknown) today (units (unkno wn) date) unknown) (unknown) (no (unknown) (unknown) today. (units (unkno wn) date) unknown) (unknown) (no (unknown) (unknown) today; this time (units (unknown) date) is exclusive of unknown) procedural time. Result panel 29 (unknown) (no (unknown) (unknown) (no value) (units (unk nown) date) unknown) (unknown) (no (unknown) (unknown) Date of Service: (units (unknown) date) 03/18/22 unknown) (unknown) (no (unknown) (unknown) (no value) (units (unk nown) date) unknown) (unknown) (no (unknown) (unknown) - (units (unkno wn) date) unknown) (unknown) (no (unknown) (unknown) 03/20/22 06:42 (units (unknown) date) unknown) (unknown) (no (unknown) (unknown) 03/21/22 1351 (units ( unknown) date) unknown) (unknown) (no (unknown) (unknown) [facility] (units (unknown) date) [address] unknown) [place] [address] (unknown) (no (unknown) (unknown) Progress Note (units ( unknown) date) unknown) (unknown) (no (unknown) (unknown) (no value) (units (unk nown) date) unknown) (unknown) (no (unknown) (unknown) 03/21/22 (units (unkno wn) date) unknown) (unknown) (no (unknown) (unknown) consistent with (units (unknown) date) dementia.? She will unknown) need 24/7 supervision. She likely does not (unknown) (no (unknown) (unknown) have capacity to (units (unknown) date) make her own unknown) healthcare decisions. (unknown) (no (unknown) (unknown) (12/05/17) (units (unk nown) date) unknown) (unknown) (no (unknown) (unknown) (past 8 hours): (units (unknown) date) unknown) (unknown) (no (unknown) (unknown) 07:00 (units (unkno wn) date) unknown) (unknown) (no (unknown) (unknown) 08:00 (units (unkno wn) date) unknown) (unknown) (no (unknown) (unknown) 08:32 03/21/22 (units (unknown) date) unknown) (unknown) (no (unknown) (unknown) 08:41 03/21/22 (units (unknown) date) unknown) (unknown) (no (unknown) (unknown) 2. 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 Chronic GERD (units (unknown) date) unknown) (unknown) (no (unknown) (unknown) 5. CHF (units (unkno wn) date) unknown) (unknown) (no (unknown) (unknown) 86-year-old female (units (unknown) date) with known coronary unknown) artery disease, permanent atrial (unknown) (no (unknown) (unknown) ? 8. Acute severe (units (unknown) date) protein calorie unknown) malnutrition (unknown) (no (unknown) (unknown) ? APS referral was (units (unknown) date) sent 3 days ago.? unknown) Continue to await for contact from (unknown) (no (unknown) (unknown) ? Appears (units (unkn own) date) euvolemic unknown) presently. (unknown) (no (unknown) (unknown) ? Remains rate (units (unknown) date) controlled.? Is on unknown) chronic apixaban. (unknown) (no (unknown) (unknown) ? Suspect this (units (unknown) date) could be unknown) contributing to her chest pain.? It may be she has (unknown) (no (unknown) (unknown) ? Uncertain as to (units (unknown) date) her previous unknown) cardiac interventions.? Has a sternal scar from (unknown) (no (unknown) (unknown) ?1. Chest pain (units (unknown) date) unknown) (unknown) (no (unknown) (unknown) ?6. Psychosocial (units (unknown) date) issues / caregiving unknown) issues (unknown) (no (unknown) (unknown) ?7. Cognitive (units ( unknown) date) impairment/dementia unknown) (unknown) (no (unknown) (unknown) ?A slums assessment (units (unknown) date) was performed by unknown) Occupational therapy with a score of 13/30, (unknown) (no (unknown) (unknown) ?Patient presented (units (unknown) date) with complaints of unknown) chest pain.? Negative workup for [place]. Low (unknown) (no (unknown) (unknown) ?code status (units (u nknown) date) unknown) (unknown) (no (unknown) (unknown) ?disposition (units (u nknown) date) unknown) (unknown) (no (unknown) (unknown) ?prophylaxis (units (u nknown) date) unknown) (unknown) (no (unknown) (unknown) ABD: Soft,?mildly (units (unknown) date) diffusely tender, unknown) nondistended, BT present in all 4 quadrants, (unknown) (no (unknown) (unknown) Abdominal pain (units (unknown) date) unknown) (unknown) (no (unknown) (unknown) Acute pancreatitis (units (unknown) date) unknown) (unknown) (no (unknown) (unknown) Age/Sex: 86 / F (units (unknown) date) unknown) (unknown) (no (unknown) (unknown) Anesthesia (units (unk nown) date) unknown) (unknown) (no (unknown) (unknown) Anticoagulated (units (unknown) date) unknown) (unknown) (no (unknown) (unknown) Anxiety (units (unkno wn) date) unknown) 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) (unknown) (no (unknown) (unknown) 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 (09/28/12) (unknown) (no (unknown) (unknown) Assessment + Plan (units (unknown) date) unknown) (unknown) (no (unknown) (unknown) Assessment + Plan (units (unknown) date) narrative: unknown) (unknown) (no (unknown) (unknown) Asthma (units (unkno wn) date) unknown) (unknown) (no (unknown) (unknown) Blood Pressure (units (unknown) date) unknown) (unknown) (no (unknown) (unknown) Blood Pressure (units (unknown) date) 114/47 L 127/57 L unknown) (unknown) (no (unknown) (unknown) Breast cancer (units ( unknown) date) () unknown) (unknown) (no (unknown) (unknown) 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) unknown) (unknown) (no (unknown) (unknown) CHEST: Respiratory (units (unknown) date) excursions unknown) symmetric, CTAB (unknown) (no (unknown) (unknown) CV:? 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 (unknown) (no (unknown) (unknown) Cervical cancer, (units (unknown) date) FIGO stage I unknown) (unknown) (no (unknown) (unknown) Cholelithiasis (units (unknown) date) unknown) (unknown) (no (unknown) (unknown) Chronic back pain (units (unknown) date) unknown) (unknown) (no (unknown) (unknown) Critical Care (units ( unknown) date) time: unknown) (unknown) (no (unknown) (unknown) : 1935 (units (unknown) date) Acct:[id number] unknown) (unknown) (no (unknown) (unknown) Date Patient Seen: (units (unknown) date) 03/21/22 unknown) (unknown) (no (unknown) (unknown) Deep Vein (units (unkn own) date) Thrombosis/Pulmonar unknown) y Embolism Present on Admission: No (unknown) (no (unknown) (unknown) Developmental (units ( unknown) date) disorder unknown) (unknown) (no (unknown) (unknown) Diarrhea (units (unkno wn) date) unknown) (unknown) (no (unknown) (unknown) EXTR: warm, well (units (unknown) date) perfused, no C/C/E unknown) (unknown) (no (unknown) (unknown) Essential (units (unkn own) date) hypertension unknown) (09/28/12) (unknown) (no (unknown) (unknown) Exam (units (unkno wn) date) unknown) (unknown) (no (unknown) (unknown) Exam Narrative: (units (unknown) date) unknown) (unknown) (no (unknown) (unknown) Failure to thrive (units (unknown) date) in adult unknown) (unknown) (no (unknown) (unknown) Family History (units (unknown) date) (Reviewed 03/18/22 unknown) @ 04:05 by JULIETTE Alfred) (unknown) (no (unknown) (unknown) Father (units (unknown) date) Myocardial infarct unknown) (unknown) (no (unknown) (unknown) Fibrocystic breast (units (unknown) date) disease unknown) (unknown) (no (unknown) (unknown) Full (units (unkno wn) date) unknown) (unknown) (no (unknown) (unknown) GEN:? (units (unkno wn) date) frail-appearing unknown) elderly female,Alert and oriented x 2, NAD (unknown) (no (unknown) (unknown) GERD (units (unkno wn) date) (gastroesophageal unknown) reflux disease) (unknown) (no (unknown) (unknown) HEENT:NC, Face (units (unknown) date) symmetric unknown) (unknown) (no (unknown) (unknown) History of colon (units (unknown) date) polyps (09/28/12) unknown) (unknown) (no (unknown) (unknown) History of left (units (unknown) date) breast cancer unknown) (-2008) (unknown) (no (unknown) (unknown) Hyperlipidemia (units (unknown) date) 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) unknown) (unknown) (no (unknown) (unknown) Interval history: (units (unknown) date) unknown) (unknown) (no (unknown) (unknown) Labs (units (unkno wn) date) unknown) (unknown) (no (unknown) (unknown) [id number] (units (unk nown) date) unknown) (unknown) (no (unknown) (unknown) Measles (units (unkno wn) date) unknown) (unknown) (no (unknown) (unknown) Medical History (units (unknown) date) (Reviewed 03/18/22 unknown) @ 04:05 by JULIETTE Alfred) 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 unknown) () (unknown) (no (unknown) (unknown) Mother (units (unknown) date) Maternal unknown) complication related to childbirth (unknown) (no (unknown) (unknown) NEURO: Alert and (units (unknown) date) oriented x 2, unknown) nonfocal (unknown) (no (unknown) (unknown) Narrative (units (unkn own) date) unknown) (unknown) (no (unknown) (unknown) Objective (units (unkn own) date) unknown) (unknown) (no (unknown) (unknown) On apixaban (units (un known) date) unknown) (unknown) (no (unknown) (unknown) Osteoarthritis of (units (unknown) date) knees, bilateral unknown) (unknown) (no (unknown) (unknown) Oxygen Delivery (units (unknown) date) Method Room Air unknown) (unknown) (no (unknown) (unknown) Oxygen Delivery (units (unknown) date) Method Room Air unknown) (unknown) (no (unknown) (unknown) Oxygen Delivery (units (unknown) date) Method Room Air unknown) (unknown) (no (unknown) (unknown) Oxygen Flow Rate (units (unknown) date) 0 unknown) (unknown) (no (unknown) (unknown) Oxygen Flow Rate (units (unknown) date) unknown) (unknown) (no (unknown) (unknown) Oxygen Flow Rate (units (unknown) date) 0 unknown) (unknown) (no (unknown) (unknown) PFSH (units (unkno wn) date) unknown) (unknown) (no (unknown) (unknown) Patient has had a (units (unknown) date) 7 and 0.5% weight unknown) loss over the last 3 months.? 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 unknown) () (unknown) (no (unknown) (unknown) Provider: (units (unkn own) date) Linda David MD unknown) (unknown) (no (unknown) (unknown) Pt had an episode (units (unknown) date) of chest/abdominal unknown) pain last evening which responded to (unknown) (no (unknown) (unknown) Pulse Oximetry (units (unknown) date) unknown) (unknown) (no (unknown) (unknown) Pulse Oximetry 96 (units (unknown) date) unknown) (unknown) (no (unknown) (unknown) Pulse Rate (units (unk nown) date) unknown) (unknown) (no (unknown) (unknown) Pulse Rate 60 73 (units (unknown) date) unknown) (unknown) (no (unknown) (unknown) Quality (units (unkno wn) date) unknown) (unknown) (no (unknown) (unknown) Respiratory Rate (units (unknown) date) unknown) (unknown) (no (unknown) (unknown) Respiratory Rate (units (unknown) date) 16 unknown) (unknown) (no (unknown) (unknown) Result Diagrams: (units (unknown) date) unknown) (unknown) (no (unknown) (unknown) SKIN: warm and (units (unknown) date) dry, no rash unknown) (unknown) (no (unknown) (unknown) Signed (units (unkno wn) date) By:<Electronically unknown) signed by Linda David MD> (unknown) (no (unknown) (unknown) Sister (units (unknown) date) Traumatic unknown) amputation (unknown) (no (unknown) (unknown) Smoking Status: (units (unknown) date) Never smoker unknown) (unknown) (no (unknown) (unknown) Social History (units (unknown) date) (Reviewed 03/17/22 unknown) @ 21:36 by Jossue Salcido MD) (unknown) (no (unknown) (unknown) Speech and (units (unk nown) date) language unknown) 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 (09/28/12) (unknown) (no (unknown) (unknown) Status post (units (un known) date) arthroscopy unknown) (unknown) (no (unknown) (unknown) Status post biopsy (units (unknown) date) () unknown) (unknown) (no (unknown) (unknown) Status post breast (units (unknown) date) lumpectomy () unknown) (unknown) (no (unknown) (unknown) Status post (units (un known) date) cholecystectomy unknown) (unknown) (no (unknown) (unknown) 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 (unknown) (no (unknown) (unknown) Status post (units (un known) date) hysterectomy unknown) () (unknown) (no (unknown) (unknown) Subjective (units (unk nown) date) unknown) (unknown) (no (unknown) (unknown) Surgical History (units (unknown) date) (Reviewed 03/18/22 unknown) @ 04:05 by JULIETTE Alfred) (unknown) (no (unknown) (unknown) 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 (units (unk nown) date) unknown) (unknown) (no (unknown) (unknown) alcohol intake: (units (unknown) date) never unknown) (unknown) (no (unknown) (unknown) approved for (units (u nknown) date) discharge on February unknown) , but staff could not get her son on the (unknown) (no (unknown) (unknown) caregiver.?Son has (units (unknown) date) not been in contact unknown) w/hospital staff or the patient. (unknown) (no (unknown) (unknown) caregiving and (units (unknown) date) safety at home. unknown) (unknown) (no (unknown) (unknown) chest pain.? (units (u nknown) date) Patient underwent unknown) stress testing and had a low risk scan.? She was (unknown) (no (unknown) (unknown) class 2 (06/05/11) (units (unknown) date) unknown) (unknown) (no (unknown) (unknown) concerns.? Care (units (unknown) date) management notes unknown) they have been unable to get in touch with the (unknown) (no (unknown) (unknown) diastolic), (units (unk nown) date) hypertension, unknown) hyperlipidemia, and prior stroke who was admitted with (unknown) (no (unknown) (unknown) esophageal spasm (units (unknown) date) that is responsive unknown) to nitroglycerin.? Well controlled today. (unknown) (no (unknown) (unknown) fibrillation on (units (unknown) date) apixaban, history unknown) of div hurt failure ( unknown if systolic or (unknown) (no (unknown) (unknown) her home.? APS (units (unknown) date) referral was made unknown) March 18 in light of ongoing caregiving (unknown) (no (unknown) (unknown) household members: (units (unknown) date) children unknown) (unknown) (no (unknown) (unknown) no organomegaly or (units (unknown) date) masses appreciated unknown) (unknown) (no (unknown) (unknown) nutritional (units (un known) date) supplementation as unknown) tolerated. (unknown) (no (unknown) (unknown) patient's son who (units (unknown) date) is her caregiver. unknown) Care mgmt to contact the police dept for a (unknown) (no (unknown) (unknown) phone who is her (units (unknown) date) POA.? She remained unknown) in the hospital pending his ability to take (unknown) (no (unknown) (unknown) prior intervention (units (unknown) date) (pt does not recall unknown) what was done). Low risk nuc this (unknown) (no (unknown) (unknown) risk cardiac (units (u nknown) date) stress test.? unknown) Likely musculoskeletal in nature.? No symptoms today (unknown) (no (unknown) (unknown) son, who has this (units (unknown) date) to her apartment unknown) and would be her ride home as well as her (unknown) (no (unknown) (unknown) today; this time (units (unknown) date) is exclusive of unknown) procedural time. (unknown) (no (unknown) (unknown) treatment (units (unkn own) date) w/tramadol and unknown) zofran. (unknown) (no (unknown) (unknown) welfare check. (units (unknown) date) unknown) Result panel 30 (unknown) (no date) (unknown) (unknown) 0 /uL (unkn own) (unknown) (no date) (unknown) (unknown) 0.6 % (unkn own) (unknown) (no date) (unknown) (unknown) 10.3 % (unkn own) (unknown) (no date) (unknown) (unknown) 11.4 g/dL (unkn own) (unknown) (no date) (unknown) (unknown) 14.9 % (unkn own) (unknown) (no date) (unknown) (unknown) 200 /uL (unkn own) (unknown) (no date) (unknown) (unknown) 2100 /uL (unkn own) (unknown) (no date) (unknown) (unknown) 237 X10 3/uL (unkn own) (unknown) (no date) (unknown) (unknown) 29.7 PG (unkn own) (unknown) (no date) (unknown) (unknown) 3.2 % (unkn own) (unknown) (no date) (unknown) (unknown) 3.85 X10 6/uL (unkn own) (unknown) (no date) (unknown) (unknown) 3100 /uL (unkn own) (unknown) (no date) (unknown) (unknown) 32.4 % (unkn own) (unknown) (no date) (unknown) (unknown) 34.4 % (unkn own) (unknown) (no date) (unknown) (unknown) 35.3 % (unkn own) (unknown) (no date) (unknown) (unknown) 51.5 % (unkn own) (unknown) (no date) (unknown) (unknown) 6.0 X10 3/uL (unkn own) (unknown) (no date) (unknown) (unknown) 600 /uL (unkn own) (unknown) (no date) (unknown) (unknown) 91.5 fL (unkn own) Result panel 31 (unknown) (no date) (unknown) (unknown) 0.99 mg/dL (unkn own) (unknown) (no date) (unknown) (unknown) 102 mmol/L (unkn own) (unknown) (no date) (unknown) (unknown) 113 mg/dL (unkn own) (unknown) (no date) (unknown) (unknown) 138 mmol/L (unkn own) (unknown) (no date) (unknown) (unknown) 31 mmol/L (unkn own) (unknown) (no date) (unknown) (unknown) 4.8 mmol/L (unkn own) (unknown) (no date) (unknown) (unknown) 43 mg/dL (unkn own) (unknown) (no date) (unknown) (unknown) 43.4 (units unknown) (unknown) (unknown) (no date) (unknown) (unknown) 56 mL/min (unkn own) (unknown) (no date) (unknown) (unknown) 8.7 mg/dL (unkn own) Result panel 32 (unknown) (no date) (unknown) (unknown) <=1.005 (units (unkn own) unknown) (unknown) (no date) (unknown) (unknown) 0.2 E.U./dL (unkn own) (unknown) (no date) (unknown) (unknown) 1+ (units (unkn own) unknown) (unknown) (no date) (unknown) (unknown) 7.0 (units (unkn own) unknown) (unknown) (no date) (unknown) (unknown) NEGATIVE (units (unkn own) unknown) (unknown) (no date) (unknown) (unknown) NEGATIVE g/dL (unkn own) (unknown) (no date) (unknown) (unknown) SL CLOUDY (units (unk nown) unknown) (unknown) (no date) (unknown) (unknown) TRACE-INTACT (units ( unknown) unknown) (unknown) (no date) (unknown) (unknown) YELLOW (units (unkn own) unknown) Result panel 33 (unknown) (no date) (unknown) (unknown) <=1.005 (units (unkn own) unknown) (unknown) (no date) (unknown) (unknown) 0-1 /HPF (units (unkn own) unknown) (unknown) (no date) (unknown) (unknown) 0.2 E.U./dL (unkn own) (unknown) (no date) (unknown) (unknown) 1+ (units (unkn own) unknown) (unknown) (no date) (unknown) (unknown) 5-10/HPF (units (unkn own) unknown) (unknown) (no date) (unknown) (unknown) 7.0 (units (unkn own) unknown) (unknown) (no date) (unknown) (unknown) NEGATIVE (units (unkn own) unknown) (unknown) (no date) (unknown) (unknown) NEGATIVE g/dL (unkn own) (unknown) (no date) (unknown) (unknown) None Seen (units (unk nown) unknown) (unknown) (no date) (unknown) (unknown) None Seen (units (unk nown) unknown) (unknown) (no date) (unknown) (unknown) SL CLOUDY (units (unk nown) unknown) (unknown) (no date) (unknown) (unknown) Specimen (units (unkn own) Cultured unknown) (unknown) (no date) (unknown) (unknown) TRACE-INTACT (units ( unknown) unknown) (unknown) (no date) (unknown) (unknown) YELLOW (units (unkn own) unknown) Result panel 34 (unknown) (no (unknown) (unknown) (no value) (units (unk nown) date) unknown) (unknown) (no (unknown) (unknown) Date of Service: (units (unknown) date) 03/18/22 unknown) (unknown) (no (unknown) (unknown) (no value) (units (unk nown) date) unknown) (unknown) (no (unknown) (unknown) - (units (unkno wn) date) unknown) (unknown) (no (unknown) (unknown) 03/22/22 05:47 (units (unknown) date) unknown) (unknown) (no (unknown) (unknown) [facility] (units (unknown) date) [address] unknown) [place] [address] (unknown) (no (unknown) (unknown) Laboratory Results (units (unknown) date) - last 24 hr unknown) (unknown) (no (unknown) (unknown) Progress Note (units ( unknown) date) unknown) (unknown) (no (unknown) (unknown) (no value) (units (unk nown) date) unknown) (unknown) (no (unknown) (unknown) 05:47 05:47 10:00 (units (unknown) date) unknown) (unknown) (no (unknown) (unknown) 03/22/22 03/22/22 (units (unknown) date) 03/22/22 unknown) (unknown) (no (unknown) (unknown) 03/22/22 (units (unkno wn) date) unknown) (unknown) (no (unknown) (unknown) (12/05/17) (units (unk nown) date) unknown) (unknown) (no (unknown) (unknown) (past 8 hours): (units (unknown) date) unknown) (unknown) (no (unknown) (unknown) 07:56 06/27/22 (units (unknown) date) unknown) (unknown) (no (unknown) (unknown) 11:21 03/22/22 (units (unknown) date) unknown) (unknown) (no (unknown) (unknown) 11:33 (units (unkno wn) date) unknown) (unknown) (no (unknown) (unknown) Abdominal pain (units (unknown) date) unknown) (unknown) (no (unknown) (unknown) Acute pancreatitis (units (unknown) date) unknown) (unknown) (no (unknown) (unknown) Age/Sex: 86 / F (units (unknown) date) unknown) (unknown) (no (unknown) (unknown) Anesthesia (units (unk nown) date) unknown) (unknown) (no (unknown) (unknown) Anticoagulated (units (unknown) date) unknown) (unknown) (no (unknown) (unknown) Anxiety (units (unkno wn) date) unknown) 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 () (unknown) (no (unknown) (unknown) 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 (09/28/12) (unknown) (no (unknown) (unknown) Assessment + Plan (units (unknown) date) unknown) (unknown) (no (unknown) (unknown) Assessment + Plan (units (unknown) date) narrative: unknown) (unknown) (no (unknown) (unknown) Asthma (units (unkno wn) date) unknown) (unknown) (no (unknown) (unknown) BUN 43 H (units (unk nown) date) unknown) (unknown) (no (unknown) (unknown) BUN/Creatinine (units (unknown) date) Ratio 43.4 H unknown) (unknown) (no (unknown) (unknown) Baso # (Auto) 0 (units (unknown) date) unknown) (unknown) (no (unknown) (unknown) Baso % (Auto) 0.6 (units (unknown) date) unknown) (unknown) (no (unknown) (unknown) Blood Pressure (units (unknown) date) 146/53 H unknown) (unknown) (no (unknown) (unknown) Breast cancer (units ( unknown) date) () unknown) (unknown) (no (unknown) (unknown) 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 (unknown) (no (unknown) (unknown) Cervical cancer, (units (unknown) date) FIGO stage I unknown) (unknown) (no (unknown) (unknown) Chloride 102 (units (unknown) date) unknown) (unknown) (no (unknown) (unknown) Cholelithiasis (units (unknown) date) unknown) (unknown) (no (unknown) (unknown) Chronic back pain (units (unknown) date) unknown) (unknown) (no (unknown) (unknown) Creatinine 0.99 (units (unknown) date) unknown) (unknown) (no (unknown) (unknown) Critical Care (units ( unknown) date) time: unknown) (unknown) (no (unknown) (unknown) : 1935 (units (unknown) date) Acct:[id number] unknown) (unknown) (no (unknown) (unknown) Deep Vein (units (unkn own) date) Thrombosis/Pulmonar unknown) y Embolism Present on Admission: No (unknown) (no (unknown) (unknown) Developmental (units ( unknown) date) disorder unknown) (unknown) (no (unknown) (unknown) Diarrhea (units (unkno wn) date) unknown) (unknown) (no (unknown) (unknown) Eos # (Auto) 200 (units (unknown) date) unknown) (unknown) (no (unknown) (unknown) Eos % (Auto) 3.2 (units (unknown) date) unknown) (unknown) (no (unknown) (unknown) Essential (units (unkn own) date) hypertension unknown) (09/28/12) (unknown) (no (unknown) (unknown) Estimated GFR 56 (units (unknown) date) L unknown) (unknown) (no (unknown) (unknown) Exam (units (unkno wn) date) unknown) (unknown) (no (unknown) (unknown) Exam Narrative: (units (unknown) date) unknown) (unknown) (no (unknown) (unknown) Failure to thrive (units (unknown) date) in adult unknown) (unknown) (no (unknown) (unknown) Family History (units (unknown) date) (Reviewed 03/18/22 unknown) @ 04:05 by JULIETTE Alfred) (unknown) (no (unknown) (unknown) Father (units (unknown) date) Myocardial infarct unknown) (unknown) (no (unknown) (unknown) Fibrocystic breast (units (unknown) date) disease unknown) (unknown) (no (unknown) (unknown) GERD (units (unkno wn) date) (gastroesophageal unknown) reflux disease) (unknown) (no (unknown) (unknown) Gastrointestinal: (units (unknown) date) Bowel sounds unknown) normal. Nontender. (unknown) (no (unknown) (unknown) Glucose 113 H (units (unknown) date) unknown) (unknown) (no (unknown) (unknown) HEENT: Pupils (units (unknown) date) equal react to unknown) light extraocular movements normal. Neck nodes (unknown) (no (unknown) (unknown) Hct 35.3 L (units (un known) date) unknown) (unknown) (no (unknown) (unknown) Hgb 11.4 L (units (un known) date) unknown) (unknown) (no (unknown) (unknown) History of colon (units (unknown) date) polyps (09/28/12) unknown) (unknown) (no (unknown) (unknown) History of left (units (unknown) date) breast cancer unknown) () (unknown) (no (unknown) (unknown) Hospital follow-up (units (unknown) date) visit. 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) unknown) (unknown) (no (unknown) (unknown) Interval history: (units (unknown) date) unknown) (unknown) (no (unknown) (unknown) Labs (units (unkno wn) date) unknown) (unknown) (no (unknown) (unknown) Labs: (units (unkno wn) date) unknown) (unknown) (no (unknown) (unknown) Lymph # (Auto) (units (unknown) date) 2100 unknown) (unknown) (no (unknown) (unknown) Lymph % (Auto) (units (unknown) date) 34.4 unknown) (unknown) (no (unknown) (unknown) [id number] (units (unk nown) date) unknown) (unknown) (no (unknown) (unknown) MCH 29.7 (units (unkn own) date) unknown) (unknown) (no (unknown) (unknown) MCHC 32.4 (units (unk nown) date) unknown) (unknown) (no (unknown) (unknown) MCV 91.5 (units (unkn own) date) unknown) (unknown) (no (unknown) (unknown) Measles (units (unkno wn) date) unknown) (unknown) (no (unknown) (unknown) Medical History (units (unknown) date) (Reviewed 03/18/22 unknown) @ 04:05 by JULIETTE Alfred) 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 No localized (unknown) (no (unknown) (unknown) Narrative (units (unkn own) date) unknown) (unknown) (no (unknown) (unknown) Neuro: Normal (units (unknown) date) sensation of all unknown) extremities (unknown) (no (unknown) (unknown) Neut # (Auto) (units ( unknown) date) 3100 unknown) (unknown) (no (unknown) (unknown) Neut % (Auto) (units ( unknown) date) 51.5 unknown) (unknown) (no (unknown) (unknown) Objective (units (unkn own) date) unknown) (unknown) (no (unknown) (unknown) Osteoarthritis of (units (unknown) date) knees, bilateral unknown) (unknown) (no (unknown) (unknown) Oxygen Delivery (units (unknown) date) Method Room Air unknown) (unknown) (no (unknown) (unknown) Oxygen Delivery (units (unknown) date) Method Room Air unknown) Room Air (unknown) (no (unknown) (unknown) Oxygen Flow Rate (units (unknown) date) 0 unknown) (unknown) (no (unknown) (unknown) Oxygen Flow Rate (units (unknown) date) 0 unknown) (unknown) (no (unknown) (unknown) PFSH (units (unkno wn) date) unknown) (unknown) (no (unknown) (unknown) Patient appears in (units (unknown) date) no acute distress. unknown) Resting comfortably in bed. Alert and (unknown) (no (unknown) (unknown) Patient has no new (units (unknown) date) concerns. Nursing unknown) has no new concerns. (unknown) (no (unknown) (unknown) Patient is (units (unk nown) date) actually ready for unknown) discharge. 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) (unknown) (no (unknown) (unknown) Provider: (units (unkn own) date) Meli Lomax unknown) (unknown) (no (unknown) (unknown) Pulse Oximetry 93 (units (unknown) date) 97 unknown) (unknown) (no (unknown) (unknown) Pulse Rate 77 (units (unknown) date) unknown) (unknown) (no (unknown) (unknown) Quality (units (unkno wn) date) unknown) (unknown) (no (unknown) (unknown) RBC 3.85 L (units (un known) date) unknown) (unknown) (no (unknown) (unknown) RDW 14.9 H (units (un known) date) unknown) (unknown) (no (unknown) (unknown) Respiratory Rate (units (unknown) date) 16 16 unknown) (unknown) (no (unknown) (unknown) Respiratory: Good (units (unknown) date) air entry. No unknown) wheezes or crackles (unknown) (no (unknown) (unknown) Result Diagrams: (units (unknown) date) unknown) (unknown) (no (unknown) (unknown) Signed By: (units (unk nown) date) unknown) (unknown) (no (unknown) (unknown) Sister (units (unknown) date) Traumatic unknown) amputation (unknown) (no (unknown) (unknown) Smoking Status: (units (unknown) date) Never smoker unknown) (unknown) (no (unknown) (unknown) Social History (units (unknown) date) (Reviewed 03/17/22 unknown) @ 21:36 by Jossue Salcido MD) (unknown) (no (unknown) (unknown) Sodium 138 (units (u nknown) date) unknown) (unknown) (no (unknown) (unknown) Speech and (units (unk nown) date) language unknown) 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 (09/28/12) (unknown) (no (unknown) (unknown) Status post (units (un known) date) arthroscopy unknown) (unknown) (no (unknown) (unknown) Status post biopsy (units (unknown) date) () unknown) (unknown) (no (unknown) (unknown) Status post breast (units (unknown) date) lumpectomy (-2008) unknown) (unknown) (no (unknown) (unknown) Status post (units (un known) date) cholecystectomy unknown) (unknown) (no (unknown) (unknown) 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 (unknown) (no (unknown) (unknown) Status post (units (un known) date) hysterectomy unknown) (-2009) (unknown) (no (unknown) (unknown) Subjective (units (unk nown) date) unknown) (unknown) (no (unknown) (unknown) Surgical History (units (unknown) date) (Reviewed 03/18/22 unknown) @ 04:05 by JULIETTE Alfred) (unknown) (no (unknown) (unknown) 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 unknown) Specimen cultured (unknown) (no (unknown) (unknown) Ur Leukocyte (units (u nknown) date) Esterase 1+ H unknown) (unknown) (no (unknown) (unknown) Ur Specific (units (un known) date) [place] <=1.005 unknown) (unknown) (no (unknown) (unknown) Ur Squamous Epith (units (unknown) date) Cells 0-1 /hpf unknown) (unknown) (no (unknown) (unknown) Urine Appearance (units (unknown) date) Sl cloudy unknown) (unknown) (no (unknown) (unknown) Urine Bacteria (units (unknown) date) None seen unknown) (unknown) (no (unknown) (unknown) Urine Bilirubin (units (unknown) date) Negative unknown) (unknown) (no (unknown) (unknown) Urine Color (units (un known) date) Yellow unknown) (unknown) (no (unknown) (unknown) Urine Glucose (UA) (units (unknown) date) Negative unknown) (unknown) (no (unknown) (unknown) Urine Ketones (units ( unknown) date) Negative unknown) (unknown) (no (unknown) (unknown) Urine Nitrate (units ( unknown) date) Negative unknown) (unknown) (no (unknown) (unknown) Urine Occult Blood (units (unknown) date) Trace-intact unknown) (unknown) (no (unknown) (unknown) Urine Protein (units ( unknown) date) Negative unknown) (unknown) (no (unknown) (unknown) Urine RBC None (units (unknown) date) seen unknown) (unknown) (no (unknown) (unknown) Urine Urobilinogen (units (unknown) date) 0.2 unknown) (unknown) (no (unknown) (unknown) Urine WBC (units (unkn own) date) 5-10/hpf H unknown) (unknown) (no (unknown) (unknown) Urine pH 7.0 (units (unknown) date) unknown) (unknown) (no (unknown) (unknown) VTE (units (unkno wn) date) unknown) (unknown) (no (unknown) (unknown) Vital Signs (units (un known) date) unknown) (unknown) (no (unknown) (unknown) WBC 6.0 (units (unkno wn) date) unknown) (unknown) (no (unknown) (unknown) [Embedded Image (units (unknown) date) Not Available] unknown) (unknown) (no (unknown) (unknown) alcohol intake: (units (unknown) date) never unknown) (unknown) (no (unknown) (unknown) are nonpalpable (units (unknown) date) and nontender. unknown) (unknown) (no (unknown) (unknown) be discharged to a (units (unknown) date) safe environment at unknown) home with the son taking care of her or (unknown) (no (unknown) (unknown) class 2 (06/05/11) (units (unknown) date) unknown) (unknown) (no (unknown) (unknown) her son whom she (units (unknown) date) thinks takes well unknown) care of her. (unknown) (no (unknown) (unknown) household members: (units (unknown) date) children unknown) (unknown) (no (unknown) (unknown) if she needs to go (units (unknown) date) to a skilled unknown) nursing facility. Patient currently is not (unknown) (no (unknown) (unknown) oriented to place (units (unknown) date) and person unknown) (unknown) (no (unknown) (unknown) strength deficits. (units (unknown) date) unknown) (unknown) (no (unknown) (unknown) today; this time (units (unknown) date) is exclusive of unknown) procedural time. (unknown) (no (unknown) (unknown) wanting to go to (units (unknown) date) [facility] unknown) facility since she prefers to be at home with Result panel 35 (unknown) (no (unknown) (unknown) (no value) (units (unk nown) date) unknown) (unknown) (no (unknown) (unknown) Date of Service: (units (unknown) date) 03/18/22 unknown) (unknown) (no (unknown) (unknown) (no value) (units (unk nown) date) unknown) (unknown) (no (unknown) (unknown) - (units (unkno wn) date) unknown) (unknown) (no (unknown) (unknown) 03/22/22 05:47 (units (unknown) date) unknown) (unknown) (no (unknown) (unknown) 03/22/22 1605 (units ( unknown) date) unknown) (unknown) (no (unknown) (unknown) [facility] (units (unknown) date) [address] unknown) [place] [address] (unknown) (no (unknown) (unknown) Laboratory Results (units (unknown) date) - last 24 hr unknown) (unknown) (no (unknown) (unknown) Progress Note (units ( unknown) date) unknown) (unknown) (no (unknown) (unknown) (no value) (units (unk nown) date) unknown) (unknown) (no (unknown) (unknown) 05:47 05:47 10:00 (units (unknown) date) unknown) (unknown) (no (unknown) (unknown) 03/22/22 03/22/22 (units (unknown) date) 03/22/22 unknown) (unknown) (no (unknown) (unknown) 03/22/22 (units (unkno wn) date) unknown) (unknown) (no (unknown) (unknown) nursing facility. (units (unknown) date) unknown) (unknown) (no (unknown) (unknown) (03/12/18) (units (unk nown) date) unknown) (unknown) (no (unknown) (unknown) (past 8 hours): (units (unknown) date) unknown) (unknown) (no (unknown) (unknown) 07:56 03/22/22 (units (unknown) date) unknown) (unknown) (no (unknown) (unknown) 11:21 03/22/22 (units (unknown) date) unknown) (unknown) (no (unknown) (unknown) 11:33 (units (unkno wn) date) unknown) (unknown) (no (unknown) (unknown) Abdominal pain (units (unknown) date) unknown) (unknown) (no (unknown) (unknown) Acute pancreatitis (units (unknown) date) unknown) (unknown) (no (unknown) (unknown) Age/Sex: 86 / F (units (unknown) date) unknown) (unknown) (no (unknown) (unknown) Anesthesia (units (unk nown) date) unknown) (unknown) (no (unknown) (unknown) Anticoagulated (units (unknown) date) unknown) (unknown) (no (unknown) (unknown) Anxiety (units (unkno wn) date) unknown) 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 () (unknown) (no (unknown) (unknown) 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 (09/28/12) (unknown) (no (unknown) (unknown) Assessment + Plan (units (unknown) date) unknown) (unknown) (no (unknown) (unknown) Assessment + Plan (units (unknown) date) narrative: unknown) (unknown) (no (unknown) (unknown) Asthma (units (unkno wn) date) unknown) (unknown) (no (unknown) (unknown) BUN 43 H (units (unk nown) date) unknown) (unknown) (no (unknown) (unknown) BUN/Creatinine (units (unknown) date) Ratio 43.4 H unknown) (unknown) (no (unknown) (unknown) Baso # (Auto) 0 (units (unknown) date) unknown) (unknown) (no (unknown) (unknown) Baso % (Auto) 0.6 (units (unknown) date) unknown) (unknown) (no (unknown) (unknown) Blood Pressure (units (unknown) date) 146/53 H unknown) (unknown) (no (unknown) (unknown) Breast cancer (units ( unknown) date) (-2001) unknown) (unknown) (no (unknown) (unknown) 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 (unknown) (no (unknown) (unknown) Cervical cancer, (units (unknown) date) FIGO stage I unknown) (unknown) (no (unknown) (unknown) Chloride 102 (units (unknown) date) unknown) (unknown) (no (unknown) (unknown) Cholelithiasis (units (unknown) date) unknown) (unknown) (no (unknown) (unknown) Chronic back pain (units (unknown) date) unknown) (unknown) (no (unknown) (unknown) Creatinine 0.99 (units (unknown) date) unknown) (unknown) (no (unknown) (unknown) Critical Care (units ( unknown) date) time: unknown) (unknown) (no (unknown) (unknown) : 1935 (units (unknown) date) Acct:[id number] unknown) (unknown) (no (unknown) (unknown) Deep Vein (units (unkn own) date) Thrombosis/Pulmonar unknown) y Embolism Present on Admission: No (unknown) (no (unknown) (unknown) Developmental (units ( unknown) date) disorder unknown) (unknown) (no (unknown) (unknown) Diarrhea (units (unkno wn) date) unknown) (unknown) (no (unknown) (unknown) Eos # (Auto) 200 (units (unknown) date) unknown) (unknown) (no (unknown) (unknown) Eos % (Auto) 3.2 (units (unknown) date) unknown) (unknown) (no (unknown) (unknown) Essential (units (unkn own) date) hypertension unknown) (09/28/12) (unknown) (no (unknown) (unknown) Estimated GFR 56 (units (unknown) date) L unknown) (unknown) (no (unknown) (unknown) Exam (units (unkno wn) date) unknown) (unknown) (no (unknown) (unknown) Exam Narrative: (units (unknown) date) unknown) (unknown) (no (unknown) (unknown) Failure to thrive (units (unknown) date) in adult unknown) (unknown) (no (unknown) (unknown) Family History (units (unknown) date) (Reviewed 03/18/22 unknown) @ 04:05 by JULIETTE Alfred) (unknown) (no (unknown) (unknown) Father (units (unknown) date) Myocardial infarct unknown) (unknown) (no (unknown) (unknown) Fibrocystic breast (units (unknown) date) disease unknown) (unknown) (no (unknown) (unknown) GERD (units (unkno wn) date) (gastroesophageal unknown) reflux disease) (unknown) (no (unknown) (unknown) Gastrointestinal: (units (unknown) date) Bowel sounds unknown) normal. Nontender. (unknown) (no (unknown) (unknown) Glucose 113 H (units (unknown) date) unknown) (unknown) (no (unknown) (unknown) HEENT: Pupils (units (unknown) date) equal react to unknown) light extraocular movements normal. Neck nodes (unknown) (no (unknown) (unknown) Hct 35.3 L (units (un known) date) unknown) (unknown) (no (unknown) (unknown) Hgb 11.4 L (units (un known) date) unknown) (unknown) (no (unknown) (unknown) History of colon (units (unknown) date) polyps (09/28/12) unknown) (unknown) (no (unknown) (unknown) History of left (units (unknown) date) breast cancer unknown) () (unknown) (no (unknown) (unknown) Hospital follow-up (units (unknown) date) visit. 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) unknown) (unknown) (no (unknown) (unknown) Interval history: (units (unknown) date) unknown) (unknown) (no (unknown) (unknown) Labs (units (unkno wn) date) unknown) (unknown) (no (unknown) (unknown) Labs: (units (unkno wn) date) unknown) (unknown) (no (unknown) (unknown) Lymph # (Auto) (units (unknown) date) 2100 unknown) (unknown) (no (unknown) (unknown) Lymph % (Auto) (units (unknown) date) 34.4 unknown) (unknown) (no (unknown) (unknown) [id number] (units (unk nown) date) unknown) (unknown) (no (unknown) (unknown) MCH 29.7 (units (unkn own) date) unknown) (unknown) (no (unknown) (unknown) MCHC 32.4 (units (unk nown) date) unknown) (unknown) (no (unknown) (unknown) MCV 91.5 (units (unkn own) date) unknown) (unknown) (no (unknown) (unknown) Measles (units (unkno wn) date) unknown) (unknown) (no (unknown) (unknown) Medical History (units (unknown) date) (Reviewed 03/18/22 unknown) @ 04:05 by JULIETTE Alfred) 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 No localized (unknown) (no (unknown) (unknown) Narrative (units (unkn own) date) unknown) (unknown) (no (unknown) (unknown) Neuro: Normal (units (unknown) date) sensation of all unknown) extremities (unknown) (no (unknown) (unknown) Neut # (Auto) (units ( unknown) date) 3100 unknown) (unknown) (no (unknown) (unknown) Neut % (Auto) (units ( unknown) date) 51.5 unknown) (unknown) (no (unknown) (unknown) Objective (units (unkn own) date) unknown) (unknown) (no (unknown) (unknown) Osteoarthritis of (units (unknown) date) knees, bilateral unknown) (unknown) (no (unknown) (unknown) Oxygen Delivery (units (unknown) date) Method Room Air unknown) (unknown) (no (unknown) (unknown) Oxygen Delivery (units (unknown) date) Method Room Air unknown) Room Air (unknown) (no (unknown) (unknown) Oxygen Flow Rate (units (unknown) date) 0 unknown) (unknown) (no (unknown) (unknown) Oxygen Flow Rate (units (unknown) date) 0 unknown) (unknown) (no (unknown) (unknown) PFSH (units (unkno wn) date) unknown) (unknown) (no (unknown) (unknown) Patient appears in (units (unknown) date) no acute distress. unknown) Resting comfortably in bed. Alert and (unknown) (no (unknown) (unknown) Patient has no new (units (unknown) date) concerns. Nursing unknown) has no new concerns. (unknown) (no (unknown) (unknown) Patient is (units (unk nown) date) actually ready for unknown) discharge. 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 unknown) () (unknown) (no (unknown) (unknown) Provider: (units (unkn own) date) Meli Lomax unknown) (unknown) (no (unknown) (unknown) Pulse Oximetry 93 (units (unknown) date) 97 unknown) (unknown) (no (unknown) (unknown) Pulse Rate 77 (units (unknown) date) unknown) (unknown) (no (unknown) (unknown) Quality (units (unkno wn) date) unknown) (unknown) (no (unknown) (unknown) RBC 3.85 L (units (un known) date) unknown) (unknown) (no (unknown) (unknown) RDW 14.9 H (units (un known) date) unknown) (unknown) (no (unknown) (unknown) Respiratory Rate (units (unknown) date) 16 16 unknown) (unknown) (no (unknown) (unknown) Respiratory: Good (units (unknown) date) air entry. No unknown) wheezes or crackles (unknown) (no (unknown) (unknown) Result Diagrams: (units (unknown) date) unknown) (unknown) (no (unknown) (unknown) Signed (units (unkno wn) date) By:<Electronically unknown) signed by Meli Lomax MD> (unknown) (no (unknown) (unknown) Sister (units (unknown) date) Traumatic unknown) amputation (unknown) (no (unknown) (unknown) Smoking Status: (units (unknown) date) Never smoker unknown) (unknown) (no (unknown) (unknown) Social History (units (unknown) date) (Reviewed 03/17/22 unknown) @ 21:36 by Jossue Salcido MD) (unknown) (no (unknown) (unknown) Sodium 138 (units (u nknown) date) unknown) (unknown) (no (unknown) (unknown) Speech and (units (unk nown) date) language unknown) 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 (09/28/12) (unknown) (no (unknown) (unknown) Status post (units (un known) date) arthroscopy unknown) (unknown) (no (unknown) (unknown) Status post biopsy (units (unknown) date) (-2014) unknown) (unknown) (no (unknown) (unknown) Status post breast (units (unknown) date) lumpectomy () unknown) (unknown) (no (unknown) (unknown) Status post (units (un known) date) cholecystectomy unknown) (unknown) (no (unknown) (unknown) 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 (unknown) (no (unknown) (unknown) Status post (units (un known) date) hysterectomy unknown) () (unknown) (no (unknown) (unknown) Subjective (units (unk nown) date) unknown) (unknown) (no (unknown) (unknown) Surgical History (units (unknown) date) (Reviewed 03/18/22 unknown) @ 04:05 by JULIETTE Alfred) (unknown) (no (unknown) (unknown) 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 unknown) Specimen cultured (unknown) (no (unknown) (unknown) Ur Leukocyte (units (u nknown) date) Esterase 1+ H unknown) (unknown) (no (unknown) (unknown) Ur Specific (units (un known) date) [place] <=1.005 unknown) (unknown) (no (unknown) (unknown) Ur Squamous Epith (units (unknown) date) Cells 0-1 /hpf unknown) (unknown) (no (unknown) (unknown) Urine Appearance (units (unknown) date) Sl cloudy unknown) (unknown) (no (unknown) (unknown) Urine Bacteria (units (unknown) date) None seen unknown) (unknown) (no (unknown) (unknown) Urine Bilirubin (units (unknown) date) Negative unknown) (unknown) (no (unknown) (unknown) Urine Color (units (un known) date) Yellow unknown) (unknown) (no (unknown) (unknown) Urine Glucose (UA) (units (unknown) date) Negative unknown) (unknown) (no (unknown) (unknown) Urine Ketones (units ( unknown) date) Negative unknown) (unknown) (no (unknown) (unknown) Urine Nitrate (units ( unknown) date) Negative unknown) (unknown) (no (unknown) (unknown) Urine Occult Blood (units (unknown) date) Trace-intact unknown) (unknown) (no (unknown) (unknown) Urine Protein (units ( unknown) date) Negative unknown) (unknown) (no (unknown) (unknown) Urine RBC None (units (unknown) date) seen unknown) (unknown) (no (unknown) (unknown) Urine Urobilinogen (units (unknown) date) 0.2 unknown) (unknown) (no (unknown) (unknown) Urine WBC (units (unkn own) date) 5-10/hpf H unknown) (unknown) (no (unknown) (unknown) Urine pH 7.0 (units (unknown) date) unknown) (unknown) (no (unknown) (unknown) VTE (units (unkno wn) date) unknown) (unknown) (no (unknown) (unknown) Vital Signs (units (un known) date) unknown) (unknown) (no (unknown) (unknown) WBC 6.0 (units (unkno wn) date) unknown) (unknown) (no (unknown) (unknown) [Embedded Image (units (unknown) date) Not Available] unknown) (unknown) (no (unknown) (unknown) alcohol intake: (units (unknown) date) never unknown) (unknown) (no (unknown) (unknown) are nonpalpable (units (unknown) date) and nontender. unknown) (unknown) (no (unknown) (unknown) be discharged to a (units (unknown) date) safe environment at unknown) home with the son taking care of her or (unknown) (no (unknown) (unknown) class 2 (06/05/11) (units (unknown) date) unknown) (unknown) (no (unknown) (unknown) from her son that (units (unknown) date) her dogs are well unknown) taken care of if she were to go to a skilled (unknown) (no (unknown) (unknown) her son whom she (units (unknown) date) thinks takes well unknown) care of her. She also has to confirmation (unknown) (no (unknown) (unknown) household members: (units (unknown) date) children unknown) (unknown) (no (unknown) (unknown) if she needs to go (units (unknown) date) to a skilled unknown) nursing facility. Patient currently is not (unknown) (no (unknown) (unknown) oriented to place (units (unknown) date) and person unknown) (unknown) (no (unknown) (unknown) strength deficits. (units (unknown) date) unknown) (unknown) (no (unknown) (unknown) today; this time (units (unknown) date) is exclusive of unknown) procedural time. (unknown) (no (unknown) (unknown) wanting to go to (units (unknown) date) fci unknown) facility since she prefers to be at home with Result panel 36 (unknown) (no (unknown) (unknown) >100,000 CFU/ml (unkno wn) date) (unknown) (no (unknown) (unknown) GenericComposite[ (units (unknown) date) GNB^Gram negative unknown) bacilli] (unknown) (no (unknown) (unknown) Identification (units (unknown) date) and Sensitivity to unknown) Follow Result panel 37 (unknown) (no (unknown) (unknown) (no value) (units (unk nown) date) unknown) (unknown) (no (unknown) (unknown) Date of Service: (units (unknown) date) 03/18/22 unknown) (unknown) (no (unknown) (unknown) (no value) (units (unk nown) date) unknown) (unknown) (no (unknown) (unknown) - (units (unkno wn) date) unknown) (unknown) (no (unknown) (unknown) 03/22/22 05:47 (units (unknown) date) unknown) (unknown) (no (unknown) (unknown) [facility] (units (unknown) date) [address] unknown) [place] [address] (unknown) (no (unknown) (unknown) Laboratory Results (units (unknown) date) - last 24 hr unknown) (unknown) (no (unknown) (unknown) Progress Note (units ( unknown) date) unknown) (unknown) (no (unknown) (unknown) (no value) (units (unk nown) date) unknown) (unknown) (no (unknown) (unknown) 03/22/22 (units (unkno wn) date) unknown) (unknown) (no (unknown) (unknown) 10:00 (units (unkno wn) date) unknown) (unknown) (no (unknown) (unknown) 03/23/22 (units (unkno wn) date) unknown) (unknown) (no (unknown) (unknown) (12/05/17) (units (unk nown) date) unknown) (unknown) (no (unknown) (unknown) (past 8 hours): (units (unknown) date) unknown) (unknown) (no (unknown) (unknown) 05:00 03/23/22 (units (unknown) date) unknown) (unknown) (no (unknown) (unknown) 06:00 03/23/22 (units (unknown) date) unknown) (unknown) (no (unknown) (unknown) 07:57 (units (unkno wn) date) unknown) (unknown) (no (unknown) (unknown) 08:12 (units (unkno wn) date) unknown) (unknown) (no (unknown) (unknown) Abdominal pain (units (unknown) date) unknown) (unknown) (no (unknown) (unknown) Acute pancreatitis (units (unknown) date) unknown) (unknown) (no (unknown) (unknown) Age/Sex: 86 / F (units (unknown) date) unknown) (unknown) (no (unknown) (unknown) Anesthesia (units (unk nown) date) unknown) (unknown) (no (unknown) (unknown) Anticoagulated (units (unknown) date) unknown) (unknown) (no (unknown) (unknown) Anxiety (units (unkno wn) date) unknown) 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 () (unknown) (no (unknown) (unknown) 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 (09/28/12) (unknown) (no (unknown) (unknown) Assessment + Plan (units (unknown) date) unknown) (unknown) (no (unknown) (unknown) Asthma (units (unkno wn) date) unknown) (unknown) (no (unknown) (unknown) Blood Pressure (units (unknown) date) unknown) (unknown) (no (unknown) (unknown) Blood Pressure (units (unknown) date) 136/60 152/69 H 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 (unknown) (no (unknown) (unknown) Cervical cancer, (units (unknown) date) FIGO stage I unknown) (unknown) (no (unknown) (unknown) Cholelithiasis (units (unknown) date) unknown) (unknown) (no (unknown) (unknown) Chronic back pain (units (unknown) date) unknown) (unknown) (no (unknown) (unknown) Critical Care (units ( unknown) date) time: unknown) (unknown) (no (unknown) (unknown) : 1935 (units (unknown) date) Acct:[id number] unknown) (unknown) (no (unknown) (unknown) Deep Vein (units (unkn own) date) Thrombosis/Pulmonar unknown) y Embolism Present on Admission: No (unknown) (no (unknown) (unknown) Developmental (units ( unknown) date) disorder unknown) (unknown) (no (unknown) (unknown) Diarrhea (units (unkno wn) date) unknown) (unknown) (no (unknown) (unknown) Essential (units (unkn own) date) hypertension unknown) (09/28/12) (unknown) (no (unknown) (unknown) Exam (units (unkno wn) date) unknown) (unknown) (no (unknown) (unknown) Failure to thrive (units (unknown) date) in adult unknown) (unknown) (no (unknown) (unknown) Family History (units (unknown) date) (Reviewed 03/18/22 unknown) @ 04:05 by JULIETTE Alfred) (unknown) (no (unknown) (unknown) Father (units (unknown) date) Myocardial infarct unknown) (unknown) (no (unknown) (unknown) Fibrocystic breast (units (unknown) date) disease unknown) (unknown) (no (unknown) (unknown) GERD (units (unkno wn) date) (gastroesophageal unknown) reflux disease) (unknown) (no (unknown) (unknown) History of colon (units (unknown) date) polyps (09/28/12) unknown) (unknown) (no (unknown) (unknown) History of left (units (unknown) date) breast cancer unknown) () (unknown) (no (unknown) (unknown) Hospitalist (units (un known) date) follow-up visit. 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) unknown) (unknown) (no (unknown) (unknown) Interval history: (units (unknown) date) unknown) (unknown) (no (unknown) (unknown) Labs (units (unkno wn) date) unknown) (unknown) (no (unknown) (unknown) Labs: (units (unkno wn) date) unknown) (unknown) (no (unknown) (unknown) [id number] (units (unk nown) date) unknown) (unknown) (no (unknown) (unknown) Measles (units (unkno wn) date) unknown) (unknown) (no (unknown) (unknown) Medical History (units (unknown) date) (Reviewed 03/18/22 unknown) @ 04:05 by JULIETTE Alfred) 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 unknown) () (unknown) (no (unknown) (unknown) Mother (units (unknown) date) Maternal unknown) complication related to childbirth (unknown) (no (unknown) (unknown) Objective (units (unkn own) date) unknown) (unknown) (no (unknown) (unknown) Osteoarthritis of (units (unknown) date) knees, bilateral unknown) (unknown) (no (unknown) (unknown) Oxygen Delivery (units (unknown) date) Method Room Air unknown) (unknown) (no (unknown) (unknown) Oxygen Delivery (units (unknown) date) Method Room Air unknown) (unknown) (no (unknown) (unknown) Oxygen Delivery (units (unknown) date) Method Room Air unknown) (unknown) (no (unknown) (unknown) Oxygen Flow Rate (units (unknown) date) 0 unknown) (unknown) (no (unknown) (unknown) Oxygen Flow Rate (units (unknown) date) unknown) (unknown) (no (unknown) (unknown) Oxygen Flow Rate (units (unknown) date) 0 0 unknown) (unknown) (no (unknown) (unknown) PFSH (units (unkno wn) date) unknown) (unknown) (no (unknown) (unknown) Patient quite (units (u nknown) date) distraught and the unknown) fact that her son is unable to take care of her (unknown) (no (unknown) (unknown) Patient: (units (unkno wn) date) YamilkaJackie S unknown) MR#: (unknown) (no (unknown) (unknown) 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) (unknown) (no (unknown) (unknown) 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) () (unknown) (no (unknown) (unknown) 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 unknown) () (unknown) (no (unknown) (unknown) Provider: (units (unkn own) date) Meli Lomax unknown) (unknown) (no (unknown) (unknown) Pulse Oximetry 96 (units (unknown) date) unknown) (unknown) (no (unknown) (unknown) Pulse Oximetry 98 (units (unknown) date) 98 96 unknown) (unknown) (no (unknown) (unknown) Pulse Rate (units (unk nown) date) unknown) (unknown) (no (unknown) (unknown) Pulse Rate 67 89 (units (unknown) date) unknown) (unknown) (no (unknown) (unknown) Quality (units (unkno wn) date) unknown) (unknown) (no (unknown) (unknown) Respiratory Rate (units (unknown) date) 14 16 unknown) (unknown) (no (unknown) (unknown) Respiratory Rate (units (unknown) date) 16 unknown) (unknown) (no (unknown) (unknown) Result Diagrams: (units (unknown) date) unknown) (unknown) (no (unknown) (unknown) Signed By: (units (unk nown) date) unknown) (unknown) (no (unknown) (unknown) Sister (units (unknown) date) Traumatic unknown) amputation (unknown) (no (unknown) (unknown) Smoking Status: (units (unknown) date) Never smoker unknown) (unknown) (no (unknown) (unknown) Social History (units (unknown) date) (Reviewed 03/17/22 unknown) @ 21:36 by Jossue Salcido MD) (unknown) (no (unknown) (unknown) Speech and (units (unk nown) date) language unknown) 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 (09/28/12) (unknown) (no (unknown) (unknown) Status post (units (un known) date) arthroscopy unknown) (unknown) (no (unknown) (unknown) Status post biopsy (units (unknown) date) (-2014) unknown) (unknown) (no (unknown) (unknown) Status post breast (units (unknown) date) lumpectomy (-2008) unknown) (unknown) (no (unknown) (unknown) Status post (units (un known) date) cholecystectomy unknown) (unknown) (no (unknown) (unknown) 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 (unknown) (no (unknown) (unknown) Status post (units (un known) date) hysterectomy unknown) (-2009) (unknown) (no (unknown) (unknown) Subjective (units (unk nown) date) unknown) (unknown) (no (unknown) (unknown) Surgical History (units (unknown) date) (Reviewed 03/18/22 unknown) @ 04:05 by JULIETTE Alfred) (unknown) (no (unknown) (unknown) 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 unknown) Specimen cultured (unknown) (no (unknown) (unknown) Ur Leukocyte (units (u nknown) date) Esterase 1+ H unknown) (unknown) (no (unknown) (unknown) Ur Specific (units (un known) date) [place] <=1.005 unknown) (unknown) (no (unknown) (unknown) Ur Squamous Epith (units (unknown) date) Cells 0-1 /hpf unknown) (unknown) (no (unknown) (unknown) Urine Appearance (units (unknown) date) Sl cloudy unknown) (unknown) (no (unknown) (unknown) Urine Bacteria (units (unknown) date) None seen unknown) (unknown) (no (unknown) (unknown) Urine Bilirubin (units (unknown) date) Negative unknown) (unknown) (no (unknown) (unknown) Urine Color (units (un known) date) Yellow unknown) (unknown) (no (unknown) (unknown) Urine Glucose (UA) (units (unknown) date) Negative unknown) (unknown) (no (unknown) (unknown) Urine Ketones (units ( unknown) date) Negative unknown) (unknown) (no (unknown) (unknown) Urine Nitrate (units ( unknown) date) Negative unknown) (unknown) (no (unknown) (unknown) Urine Occult Blood (units (unknown) date) Trace-intact unknown) (unknown) (no (unknown) (unknown) Urine Protein (units ( unknown) date) Negative unknown) (unknown) (no (unknown) (unknown) Urine RBC None (units (unknown) date) seen unknown) (unknown) (no (unknown) (unknown) Urine Urobilinogen (units (unknown) date) 0.2 unknown) (unknown) (no (unknown) (unknown) Urine WBC (units (unkn own) date) 5-10/hpf H unknown) (unknown) (no (unknown) (unknown) Urine pH 7.0 (units ( unknown) date) unknown) (unknown) (no (unknown) (unknown) VTE (units (unkno wn) date) unknown) (unknown) (no (unknown) (unknown) Vital Signs (units (un known) date) unknown) (unknown) (no (unknown) (unknown) [Embedded Image (units (unknown) date) Not Available] unknown) (unknown) (no (unknown) (unknown) alcohol intake: (units (unknown) date) never unknown) (unknown) (no (unknown) (unknown) anymore. Hospital (units (unknown) date) has been notified unknown) by Adult Protective based on their visit to (unknown) (no (unknown) (unknown) class 2 (06/05/11) (units (unknown) date) unknown) (unknown) (no (unknown) (unknown) household members: (units (unknown) date) children unknown) (unknown) (no (unknown) (unknown) raise ?. Except (units (unknown) date) now she has no unknown) siblings with her. (unknown) (no (unknown) (unknown) the situation. She (units (unknown) date) feels abandoned. unknown) Unfortunately this brings back memories of (unknown) (no (unknown) (unknown) this son's (units (unk nown) date) premises. Patient unknown) would really like her son to visit and explained (unknown) (no (unknown) (unknown) today; this time (units (unknown) date) is exclusive of unknown) procedural time. (unknown) (no (unknown) (unknown) when her father (units (unknown) date) had to ?give her unknown) and her siblings away to her grandmother to Result panel 38 (unknown) (no (unknown) (unknown) (no value) (units (unk nown) date) unknown) (unknown) (no (unknown) (unknown) Date of Service: (units (unknown) date) 03/18/22 unknown) (unknown) (no (unknown) (unknown) (no value) (units (unk nown) date) unknown) (unknown) (no (unknown) (unknown) - (units (unkno wn) date) unknown) (unknown) (no (unknown) (unknown) 03/22/22 05:47 (units (unknown) date) unknown) (unknown) (no (unknown) (unknown) [facility] (units (unknown) date) [address] unknown) [place] [address] (unknown) (no (unknown) (unknown) Laboratory Results (units (unknown) date) - last 24 hr unknown) (unknown) (no (unknown) (unknown) Progress Note (units ( unknown) date) unknown) (unknown) (no (unknown) (unknown) (no value) (units (unk nown) date) unknown) (unknown) (no (unknown) (unknown) 03/22/22 (units (unkno wn) date) unknown) (unknown) (no (unknown) (unknown) 10:00 (units (unkno wn) date) unknown) (unknown) (no (unknown) (unknown) 03/23/22 (units (unkno wn) date) unknown) (unknown) (no (unknown) (unknown) (12/05/17) (units (unk nown) date) unknown) (unknown) (no (unknown) (unknown) (past 8 hours): (units (unknown) date) unknown) (unknown) (no (unknown) (unknown) 05:00 03/23/22 (units (unknown) date) unknown) (unknown) (no (unknown) (unknown) 06:00 03/23/22 (units (unknown) date) unknown) (unknown) (no (unknown) (unknown) 07:57 (units (unkno wn) date) unknown) (unknown) (no (unknown) (unknown) 08:12 (units (unkno wn) date) unknown) (unknown) (no (unknown) (unknown) Abdominal pain (units (unknown) date) unknown) (unknown) (no (unknown) (unknown) Acute pancreatitis (units (unknown) date) unknown) (unknown) (no (unknown) (unknown) Age/Sex: 86 / F (units (unknown) date) unknown) (unknown) (no (unknown) (unknown) Anesthesia (units (unk nown) date) unknown) (unknown) (no (unknown) (unknown) Anticoagulated (units (unknown) date) unknown) (unknown) (no (unknown) (unknown) Anxiety (units (unkno wn) date) unknown) 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) (unknown) (no (unknown) (unknown) 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 (09/28/12) (unknown) (no (unknown) (unknown) Assessment + Plan (units (unknown) date) unknown) (unknown) (no (unknown) (unknown) Asthma (units (unkno wn) date) unknown) (unknown) (no (unknown) (unknown) Blood Pressure (units (unknown) date) unknown) (unknown) (no (unknown) (unknown) Blood Pressure (units (unknown) date) 136/60 152/69 H unknown) (unknown) (no (unknown) (unknown) Breast cancer (units ( unknown) date) () unknown) (unknown) (no (unknown) (unknown) 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) unknown) (unknown) (no (unknown) (unknown) Calcified nodule (units (unknown) date) unknown) (unknown) (no (unknown) (unknown) Cardiovascular: (units (unknown) date) Heart sounds S1 and unknown) S2. No extra sounds or murmurs. 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 (unknown) (no (unknown) (unknown) Cervical cancer, (units (unknown) date) FIGO stage I unknown) (unknown) (no (unknown) (unknown) Cholelithiasis (units (unknown) date) unknown) (unknown) (no (unknown) (unknown) Chronic back pain (units (unknown) date) unknown) (unknown) (no (unknown) (unknown) Critical Care (units ( unknown) date) time: unknown) (unknown) (no (unknown) (unknown) : 1935 (units (unknown) date) Acct:[id number] unknown) (unknown) (no (unknown) (unknown) Deep Vein (units (unkn own) date) Thrombosis/Pulmonar unknown) y Embolism Present on Admission: No (unknown) (no (unknown) (unknown) Developmental (units ( unknown) date) disorder unknown) (unknown) (no (unknown) (unknown) Diarrhea (units (unkno wn) date) unknown) (unknown) (no (unknown) (unknown) Essential (units (unkn own) date) hypertension unknown) (09/28/12) (unknown) (no (unknown) (unknown) Exam (units (unkno wn) date) unknown) (unknown) (no (unknown) (unknown) Exam Narrative: (units (unknown) date) unknown) (unknown) (no (unknown) (unknown) Failure to thrive (units (unknown) date) in adult unknown) (unknown) (no (unknown) (unknown) Family History (units (unknown) date) (Reviewed 03/18/22 unknown) @ 04:05 by JULIETTE Alfred) (unknown) (no (unknown) (unknown) Father (units (unknown) date) Myocardial infarct unknown) (unknown) (no (unknown) (unknown) Fibrocystic breast (units (unknown) date) disease unknown) (unknown) (no (unknown) (unknown) GERD (units (unkno wn) date) (gastroesophageal unknown) reflux disease) (unknown) (no (unknown) (unknown) Gastrointestinal: (units (unknown) date) Abdomen is soft. unknown) Nontender. Bowel sounds normal. (unknown) (no (unknown) (unknown) HEENT: Pupils (units (unknown) date) equal reactive to unknown) light. Extraocular movements normal. Neck is (unknown) (no (unknown) (unknown) History of colon (units (unknown) date) polyps (09/28/12) unknown) (unknown) (no (unknown) (unknown) History of left (units (unknown) date) breast cancer unknown) (-2008) (unknown) (no (unknown) (unknown) Hospitalist (units (un known) date) follow-up visit. 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) unknown) (unknown) (no (unknown) (unknown) Interval history: (units (unknown) date) unknown) (unknown) (no (unknown) (unknown) Labs (units (unkno wn) date) unknown) (unknown) (no (unknown) (unknown) Labs: (units (unkno wn) date) unknown) (unknown) (no (unknown) (unknown) [id number] (units (unk nown) date) unknown) (unknown) (no (unknown) (unknown) Measles (units (unkno wn) date) unknown) (unknown) (no (unknown) (unknown) Medical History (units (unknown) date) (Reviewed 03/18/22 unknown) @ 04:05 by JULIETTE Alfred) 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 No specific localized (unknown) (no (unknown) (unknown) Narrative (units (unkn own) date) unknown) (unknown) (no (unknown) (unknown) Neuro: Normal (units (unknown) date) sensation of all unknown) extremities. Normal mood. A little teary (unknown) (no (unknown) (unknown) Objective (units (unkn own) date) unknown) (unknown) (no (unknown) (unknown) Osteoarthritis of (units (unknown) date) knees, bilateral unknown) (unknown) (no (unknown) (unknown) Oxygen Delivery (units (unknown) date) Method Room Air unknown) (unknown) (no (unknown) (unknown) Oxygen Delivery (units (unknown) date) Method Room Air unknown) (unknown) (no (unknown) (unknown) Oxygen Delivery (units (unknown) date) Method Room Air unknown) (unknown) (no (unknown) (unknown) Oxygen Flow Rate (units (unknown) date) 0 unknown) (unknown) (no (unknown) (unknown) Oxygen Flow Rate (units (unknown) date) unknown) (unknown) (no (unknown) (unknown) Oxygen Flow Rate (units (unknown) date) 0 0 unknown) (unknown) (no (unknown) (unknown) PFSH (units (unkno wn) date) unknown) (unknown) (no (unknown) (unknown) Patient alert (units ( unknown) date) oriented to person unknown) and place. (unknown) (no (unknown) (unknown) Patient appears in (units (unknown) date) no acute distress. 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 unknown) () (unknown) (no (unknown) (unknown) Provider: (units (unkn own) date) Meli Lomax unknown) (unknown) (no (unknown) (unknown) Pulse Oximetry 96 (units (unknown) date) unknown) (unknown) (no (unknown) (unknown) Pulse Oximetry 98 (units (unknown) date) 98 96 unknown) (unknown) (no (unknown) (unknown) Pulse Rate (units (unk nown) date) unknown) (unknown) (no (unknown) (unknown) Pulse Rate 67 89 (units (unknown) date) unknown) (unknown) (no (unknown) (unknown) Quality (units (unkno wn) date) unknown) (unknown) (no (unknown) (unknown) Respiratory Rate (units (unknown) date) 14 16 unknown) (unknown) (no (unknown) (unknown) Respiratory Rate (units (unknown) date) 16 unknown) (unknown) (no (unknown) (unknown) Respiratory: (units (u nknown) date) Adequate air entry unknown) throughout the lung cintron. No wheezes or (unknown) (no (unknown) (unknown) Result Diagrams: (units (unknown) date) unknown) (unknown) (no (unknown) (unknown) Signed By: (units (unk nown) date) unknown) (unknown) (no (unknown) (unknown) Sister (units (unknown) date) Traumatic unknown) amputation (unknown) (no (unknown) (unknown) Skin: No rashes (units (unknown) date) or lesions. 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 (09/28/12) (unknown) (no (unknown) (unknown) Status post (units (un known) date) arthroscopy unknown) (unknown) (no (unknown) (unknown) Status post biopsy (units (unknown) date) () unknown) (unknown) (no (unknown) (unknown) Status post breast (units (unknown) date) lumpectomy () unknown) (unknown) (no (unknown) (unknown) Status post (units (un known) date) cholecystectomy unknown) (unknown) (no (unknown) (unknown) 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 (unknown) (no (unknown) (unknown) Status post (units (un known) date) hysterectomy unknown) () (unknown) (no (unknown) (unknown) Subjective (units (unk nown) date) unknown) (unknown) (no (unknown) (unknown) Surgical History (units (unknown) date) (Reviewed 03/18/22 unknown) @ 04:05 by JULIETTE Alfred) (unknown) (no (unknown) (unknown) 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 unknown) Specimen cultured (unknown) (no (unknown) (unknown) Ur Leukocyte (units (u nknown) date) Esterase 1+ H unknown) (unknown) (no (unknown) (unknown) Ur Specific (units (un known) date) [place] <=1.005 unknown) (unknown) (no (unknown) (unknown) Ur Squamous Epith (units (unknown) date) Cells 0-1 /hpf unknown) (unknown) (no (unknown) (unknown) Urine Appearance (units (unknown) date) Sl cloudy unknown) (unknown) (no (unknown) (unknown) Urine Bacteria (units (unknown) date) None seen unknown) (unknown) (no (unknown) (unknown) Urine Bilirubin (units (unknown) date) Negative unknown) (unknown) (no (unknown) (unknown) Urine Color (units (un known) date) Yellow unknown) (unknown) (no (unknown) (unknown) Urine Glucose (UA) (units (unknown) date) Negative unknown) (unknown) (no (unknown) (unknown) Urine Ketones (units ( unknown) date) Negative unknown) (unknown) (no (unknown) (unknown) Urine Nitrate (units ( unknown) date) Negative unknown) (unknown) (no (unknown) (unknown) Urine Occult Blood (units (unknown) date) Trace-intact unknown) (unknown) (no (unknown) (unknown) Urine Protein (units ( unknown) date) Negative unknown) (unknown) (no (unknown) (unknown) Urine RBC None (units (unknown) date) seen unknown) (unknown) (no (unknown) (unknown) Urine Urobilinogen (units (unknown) date) 0.2 unknown) (unknown) (no (unknown) (unknown) Urine WBC (units (unkn own) date) 5-10/hpf H unknown) (unknown) (no (unknown) (unknown) Urine pH 7.0 (units ( unknown) date) unknown) (unknown) (no (unknown) (unknown) VTE (units (unkno wn) date) unknown) (unknown) (no (unknown) (unknown) Vital Signs (units (un known) date) unknown) (unknown) (no (unknown) (unknown) [Embedded Image (units (unknown) date) Not Available] unknown) (unknown) (no (unknown) (unknown) alcohol intake: (units (unknown) date) never unknown) (unknown) (no (unknown) (unknown) anymore. Hospital (units (unknown) date) has been notified unknown) by Adult Protective based on their visit to (unknown) (no (unknown) (unknown) class 2 (06/05/11) (units (unknown) date) unknown) (unknown) (no (unknown) (unknown) crackles. (units (unkn own) date) unknown) (unknown) (no (unknown) (unknown) edema. (units (unkno wn) date) unknown) (unknown) (no (unknown) (unknown) household members: (units (unknown) date) children unknown) (unknown) (no (unknown) (unknown) however due to (units (unknown) date) news that she unknown) cannot go home. (unknown) (no (unknown) (unknown) raise ?. Except (units (unknown) date) now she has no unknown) siblings with her. (unknown) (no (unknown) (unknown) strength deficits. (units (unknown) date) unknown) (unknown) (no (unknown) (unknown) supple. No neck (units (unknown) date) nodes. unknown) (unknown) (no (unknown) (unknown) the situation. She (units (unknown) date) feels abandoned. unknown) Unfortunately this brings back memories of (unknown) (no (unknown) (unknown) this son's (units (unk nown) date) premises. Patient unknown) would really like her son to visit and explained (unknown) (no (unknown) (unknown) today; this time (units (unknown) date) is exclusive of unknown) procedural time. (unknown) (no (unknown) (unknown) when her father (units (unknown) date) had to ?give her unknown) and her siblings away to her grandmother to Result panel 39 (unknown) (no (unknown) (unknown) (no value) (units (unk nown) date) unknown) (unknown) (no (unknown) (unknown) Date of Service: (units (unknown) date) 03/18/22 unknown) (unknown) (no (unknown) (unknown) (no value) (units (unk nown) date) unknown) (unknown) (no (unknown) (unknown) - (units (unkno wn) date) unknown) (unknown) (no (unknown) (unknown) 03/22/22 05:47 (units (unknown) date) unknown) (unknown) (no (unknown) (unknown) 03/23/22 1123 (units ( unknown) date) unknown) (unknown) (no (unknown) (unknown) [facility] (units (unknown) date) [address] unknown) [place] [address] (unknown) (no (unknown) (unknown) Laboratory Results (units (unknown) date) - last 24 hr unknown) (unknown) (no (unknown) (unknown) Progress Note (units ( unknown) date) unknown) (unknown) (no (unknown) (unknown) (no value) (units (unk nown) date) unknown) (unknown) (no (unknown) (unknown) 03/22/22 (units (unkno wn) date) unknown) (unknown) (no (unknown) (unknown) 10:00 (units (unkno wn) date) unknown) (unknown) (no (unknown) (unknown) 03/23/22 (units (unkno wn) date) unknown) (unknown) (no (unknown) (unknown) endocrine no (units (u nknown) date) longer take care of unknown) the patient. Placement needs to be found for (unknown) (no (unknown) (unknown) own healthcare (units (unknown) date) decisions. unknown) (unknown) (no (unknown) (unknown) the patient. (units (u nknown) date) unknown) (unknown) (no (unknown) (unknown) (12/05/17) (units (unk nown) date) unknown) (unknown) (no (unknown) (unknown) (past 8 hours): (units (unknown) date) unknown) (unknown) (no (unknown) (unknown) 05:00 03/23/22 (units (unknown) date) unknown) (unknown) (no (unknown) (unknown) 06:00 03/23/22 (units (unknown) date) unknown) (unknown) (no (unknown) (unknown) 07:57 (units (unkno wn) date) unknown) (unknown) (no (unknown) (unknown) 08:12 (units (unkno wn) date) unknown) (unknown) (no (unknown) (unknown) 1. Chest pain (units ( unknown) date) unknown) (unknown) (no (unknown) (unknown) 2. 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 Chronic GERD (units (unknown) date) unknown) (unknown) (no (unknown) (unknown) 5. CHF (units (unkno wn) date) unknown) (unknown) (no (unknown) (unknown) ? 8. Acute severe (units (unknown) date) protein calorie unknown) malnutrition (unknown) (no (unknown) (unknown) ? Appears (units (unkn own) date) euvolemic unknown) presently. (unknown) (no (unknown) (unknown) ? Remains rate (units (unknown) date) controlled.? Is on unknown) chronic apixaban. (unknown) (no (unknown) (unknown) ? She will need (units (unknown) date) 18/04 supervision.? unknown) She likely does not have capacity to make her (unknown) (no (unknown) (unknown) ? Suspect this (units (unknown) date) could be unknown) contributing to her chest pain.? It may be she has (unknown) (no (unknown) (unknown) ? Uncertain as to (units (unknown) date) her previous unknown) cardiac interventions.? Has a sternal scar from (unknown) (no (unknown) (unknown) ?6. Psychosocial (units (unknown) date) issues / caregiving unknown) issues (unknown) (no (unknown) (unknown) ?7. Cognitive (units ( unknown) date) impairment/dementia unknown) (unknown) (no (unknown) (unknown) ?Patient presented (units (unknown) date) with complaints of unknown) chest pain.? Negative workup for [place]. Low (unknown) (no (unknown) (unknown) ?code status (units (u nknown) date) unknown) (unknown) (no (unknown) (unknown) ?disposition (units (u nknown) date) unknown) (unknown) (no (unknown) (unknown) ?prophylaxis (units (u nknown) date) unknown) (unknown) (no (unknown) (unknown) Abdominal pain (units (unknown) date) unknown) (unknown) (no (unknown) (unknown) Acute pancreatitis (units (unknown) date) unknown) (unknown) (no (unknown) (unknown) Age/Sex: 86 / F (units (unknown) date) unknown) (unknown) (no (unknown) (unknown) Anesthesia (units (unk nown) date) unknown) (unknown) (no (unknown) (unknown) Anticoagulated (units (unknown) date) unknown) (unknown) (no (unknown) (unknown) Anxiety (units (unkno wn) date) unknown) 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 () (unknown) (no (unknown) (unknown) 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 (09/28/12) (unknown) (no (unknown) (unknown) Assessment + Plan (units (unknown) date) unknown) (unknown) (no (unknown) (unknown) Assessment + Plan (units (unknown) date) narrative: unknown) (unknown) (no (unknown) (unknown) Asthma (units (unkno wn) date) unknown) (unknown) (no (unknown) (unknown) Blood Pressure (units (unknown) date) unknown) (unknown) (no (unknown) (unknown) Blood Pressure (units (unknown) date) 136/60 152/69 H unknown) (unknown) (no (unknown) (unknown) Breast cancer (units ( unknown) date) (-2001) unknown) (unknown) (no (unknown) (unknown) 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) unknown) (unknown) (no (unknown) (unknown) Calcified nodule (units (unknown) date) unknown) (unknown) (no (unknown) (unknown) Cardiovascular: (units (unknown) date) Heart sounds S1 and unknown) S2. No extra sounds or murmurs. 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 (unknown) (no (unknown) (unknown) Cervical cancer, (units (unknown) date) FIGO stage I unknown) (unknown) (no (unknown) (unknown) Cholelithiasis (units (unknown) date) unknown) (unknown) (no (unknown) (unknown) Chronic back pain (units (unknown) date) unknown) (unknown) (no (unknown) (unknown) Critical Care (units ( unknown) date) time: unknown) (unknown) (no (unknown) (unknown) Current status of (units (unknown) date) diagnosis are as unknown) follows: (unknown) (no (unknown) (unknown) : 1935 (units (unknown) date) Acct:[id number] unknown) (unknown) (no (unknown) (unknown) Deep Vein (units (unkn own) date) Thrombosis/Pulmonar unknown) y Embolism Present on Admission: No (unknown) (no (unknown) (unknown) Developmental (units ( unknown) date) disorder unknown) (unknown) (no (unknown) (unknown) Diarrhea (units (unkno wn) date) unknown) (unknown) (no (unknown) (unknown) Essential (units (unkn own) date) hypertension unknown) (09/28/12) (unknown) (no (unknown) (unknown) Exam (units (unkno wn) date) unknown) (unknown) (no (unknown) (unknown) Exam Narrative: (units (unknown) date) unknown) (unknown) (no (unknown) (unknown) Failure to thrive (units (unknown) date) in adult unknown) (unknown) (no (unknown) (unknown) Family History (units (unknown) date) (Reviewed 03/18/22 unknown) @ 04:05 by JULIETTE Alfred) (unknown) (no (unknown) (unknown) Father (units (unknown) date) Myocardial infarct unknown) (unknown) (no (unknown) (unknown) Fibrocystic breast (units (unknown) date) disease unknown) (unknown) (no (unknown) (unknown) Full (units (unkno wn) date) unknown) (unknown) (no (unknown) (unknown) GERD (units (unkno wn) date) (gastroesophageal unknown) reflux disease) (unknown) (no (unknown) (unknown) Gastrointestinal: (units (unknown) date) Abdomen is soft. unknown) Nontender. Bowel sounds normal. (unknown) (no (unknown) (unknown) HEENT: Pupils (units (unknown) date) equal reactive to unknown) light. Extraocular movements normal. Neck is (unknown) (no (unknown) (unknown) History of colon (units (unknown) date) polyps (09/28/12) unknown) (unknown) (no (unknown) (unknown) History of left (units (unknown) date) breast cancer unknown) () (unknown) (no (unknown) (unknown) Hospitalist (units (un known) date) follow-up visit. 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) unknown) (unknown) (no (unknown) (unknown) Interval history: (units (unknown) date) unknown) (unknown) (no (unknown) (unknown) Labs (units (unkno wn) date) unknown) (unknown) (no (unknown) (unknown) Labs: (units (unkno wn) date) unknown) (unknown) (no (unknown) (unknown) [id number] (units (unk nown) date) unknown) (unknown) (no (unknown) (unknown) Measles (units (unkno wn) date) unknown) (unknown) (no (unknown) (unknown) Medical History (units (unknown) date) (Reviewed 03/18/22 unknown) @ 04:05 by JULIETTE Alfred) 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 No specific localized (unknown) (no (unknown) (unknown) Narrative (units (unkn own) date) unknown) (unknown) (no (unknown) (unknown) Neuro: Normal (units (unknown) date) sensation of all unknown) extremities. Normal mood. A little teary (unknown) (no (unknown) (unknown) Objective (units (unkn own) date) unknown) (unknown) (no (unknown) (unknown) On apixaban (units (un known) date) unknown) (unknown) (no (unknown) (unknown) Osteoarthritis of (units (unknown) date) knees, bilateral unknown) (unknown) (no (unknown) (unknown) Oxygen Delivery (units (unknown) date) Method Room Air unknown) (unknown) (no (unknown) (unknown) Oxygen Delivery (units (unknown) date) Method Room Air unknown) (unknown) (no (unknown) (unknown) Oxygen Delivery (units (unknown) date) Method Room Air unknown) (unknown) (no (unknown) (unknown) Oxygen Flow Rate (units (unknown) date) 0 unknown) (unknown) (no (unknown) (unknown) Oxygen Flow Rate (units (unknown) date) unknown) (unknown) (no (unknown) (unknown) Oxygen Flow Rate (units (unknown) date) 0 0 unknown) (unknown) (no (unknown) (unknown) PFSH (units (unkno wn) date) unknown) (unknown) (no (unknown) (unknown) Patient alert (units ( unknown) date) oriented to person unknown) and place. (unknown) (no (unknown) (unknown) Patient appears in (units (unknown) date) no acute distress. 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 unknown) () (unknown) (no (unknown) (unknown) Provider: (units (unkn own) date) Meli Lomax unknown) (unknown) (no (unknown) (unknown) Pulse Oximetry 96 (units (unknown) date) unknown) (unknown) (no (unknown) (unknown) Pulse Oximetry 98 (units (unknown) date) 98 96 unknown) (unknown) (no (unknown) (unknown) Pulse Rate (units (unk nown) date) unknown) (unknown) (no (unknown) (unknown) Pulse Rate 67 89 (units (unknown) date) unknown) (unknown) (no (unknown) (unknown) Quality (units (unkno wn) date) unknown) (unknown) (no (unknown) (unknown) Respiratory Rate (units (unknown) date) 14 16 unknown) (unknown) (no (unknown) (unknown) Respiratory Rate (units (unknown) date) 16 unknown) (unknown) (no (unknown) (unknown) Respiratory: (units (u nknown) date) Adequate air entry unknown) throughout the lung cintron. No wheezes or (unknown) (no (unknown) (unknown) Result Diagrams: (units (unknown) date) unknown) (unknown) (no (unknown) (unknown) Signed (units (unkno wn) date) By:<Electronically unknown) signed by Meli Lomax MD> (unknown) (no (unknown) (unknown) Sister (units (unknown) date) Traumatic unknown) amputation (unknown) (no (unknown) (unknown) Skin: No rashes (units (unknown) date) or lesions. unknown) (unknown) (no (unknown) (unknown) Smoking Status: (units (unknown) date) Never smoker unknown) (unknown) (no (unknown) (unknown) Social History (units (unknown) date) (Reviewed 03/17/22 unknown) @ 21:36 by Jossue Salcido MD) (unknown) (no (unknown) (unknown) Son able to take (units (unknown) date) care of patient. 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 (09/28/12) (unknown) (no (unknown) (unknown) Status post (units (un known) date) arthroscopy unknown) (unknown) (no (unknown) (unknown) Status post biopsy (units (unknown) date) () unknown) (unknown) (no (unknown) (unknown) Status post breast (units (unknown) date) lumpectomy () unknown) (unknown) (no (unknown) (unknown) Status post (units (un known) date) cholecystectomy unknown) (unknown) (no (unknown) (unknown) 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 (unknown) (no (unknown) (unknown) Status post (units (un known) date) hysterectomy unknown) () (unknown) (no (unknown) (unknown) Subjective (units (unk nown) date) unknown) (unknown) (no (unknown) (unknown) Surgical History (units (unknown) date) (Reviewed 03/18/22 unknown) @ 04:05 by JULIETTE Alfred) (unknown) (no (unknown) (unknown) 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 unknown) Specimen cultured (unknown) (no (unknown) (unknown) Ur Leukocyte (units (u nknown) date) Esterase 1+ H unknown) (unknown) (no (unknown) (unknown) Ur Specific (units (un known) date) [place] <=1.005 unknown) (unknown) (no (unknown) (unknown) Ur Squamous Epith (units (unknown) date) Cells 0-1 /hpf unknown) (unknown) (no (unknown) (unknown) Urine Appearance (units (unknown) date) Sl cloudy unknown) (unknown) (no (unknown) (unknown) Urine Bacteria (units (unknown) date) None seen unknown) (unknown) (no (unknown) (unknown) Urine Bilirubin (units (unknown) date) Negative unknown) (unknown) (no (unknown) (unknown) Urine Color (units (un known) date) Yellow unknown) (unknown) (no (unknown) (unknown) Urine Glucose (UA) (units (unknown) date) Negative unknown) (unknown) (no (unknown) (unknown) Urine Ketones (units ( unknown) date) Negative unknown) (unknown) (no (unknown) (unknown) Urine Nitrate (units ( unknown) date) Negative unknown) (unknown) (no (unknown) (unknown) Urine Occult Blood (units (unknown) date) Trace-intact unknown) (unknown) (no (unknown) (unknown) Urine Protein (units ( unknown) date) Negative unknown) (unknown) (no (unknown) (unknown) Urine RBC None (units (unknown) date) seen unknown) (unknown) (no (unknown) (unknown) Urine Urobilinogen (units (unknown) date) 0.2 unknown) (unknown) (no (unknown) (unknown) Urine WBC (units (unkn own) date) 5-10/hpf H unknown) (unknown) (no (unknown) (unknown) Urine pH 7.0 (units ( unknown) date) unknown) (unknown) (no (unknown) (unknown) VTE (units (unkno wn) date) unknown) (unknown) (no (unknown) (unknown) Vital Signs (units (un known) date) unknown) (unknown) (no (unknown) (unknown) Weight loss over (units (unknown) date) the last 3 months.? unknown) Oral nutritional supplementation as (unknown) (no (unknown) (unknown) [Embedded Image (units (unknown) date) Not Available] unknown) (unknown) (no (unknown) (unknown) alcohol intake: (units (unknown) date) never unknown) (unknown) (no (unknown) (unknown) anymore. Hospital (units (unknown) date) has been notified unknown) by Adult Protective based on their visit to (unknown) (no (unknown) (unknown) class 2 (06/05/11) (units (unknown) date) unknown) (unknown) (no (unknown) (unknown) crackles. (units (unkn own) date) unknown) (unknown) (no (unknown) (unknown) edema. (units (unkno wn) date) unknown) (unknown) (no (unknown) (unknown) esophageal spasm (units (unknown) date) that is responsive unknown) to nitroglycerin.? Well controlled today. (unknown) (no (unknown) (unknown) household members: (units (unknown) date) children unknown) (unknown) (no (unknown) (unknown) however due to (units (unknown) date) news that she unknown) cannot go home. (unknown) (no (unknown) (unknown) prior intervention (units (unknown) date) (pt does not recall unknown) what was done).? (unknown) (no (unknown) (unknown) raise ?. Except (units (unknown) date) now she has no unknown) siblings with her. (unknown) (no (unknown) (unknown) risk cardiac (units (u nknown) date) stress test.? unknown) Likely musculoskeletal in nature.? No symptoms today (unknown) (no (unknown) (unknown) strength deficits. (units (unknown) date) unknown) (unknown) (no (unknown) (unknown) supple. No neck (units (unknown) date) nodes. unknown) (unknown) (no (unknown) (unknown) the patient. (units (u nknown) date) unknown) (unknown) (no (unknown) (unknown) the situation. She (units (unknown) date) feels abandoned. unknown) Unfortunately this brings back memories of (unknown) (no (unknown) (unknown) this son's (units (unk nown) date) premises. Patient unknown) would really like her son to visit and explained (unknown) (no (unknown) (unknown) today; this time (units (unknown) date) is exclusive of unknown) procedural time. (unknown) (no (unknown) (unknown) tolerated. (units (unk nown) date) Patient eating well unknown) in the hospital. (unknown) (no (unknown) (unknown) when her father (units (unknown) date) had to ?give her unknown) and her siblings away to her grandmother to Result panel 40 (unknown) (no date) (unknown) (unknown) >100,000 CFU/ml (unkn own) (unknown) (no date) (unknown) (unknown) <=0.12 (units (unkn own) unknown) (unknown) (no date) (unknown) (unknown) <=0.25 (units (unkn own) unknown) (unknown) (no date) (unknown) (unknown) <=0.5 (units (unkn own) unknown) (unknown) (no date) (unknown) (unknown) <=1 (units (unkn own) unknown) (unknown) (no date) (unknown) (unknown) <=16 (units (unkn own) unknown) (unknown) (no date) (unknown) (unknown) <=2 (units (unkn own) unknown) (unknown) (no date) (unknown) (unknown) <=20 (units (unkn own) unknown) (unknown) (no date) (unknown) (unknown) <=4 (units (unkn own) unknown) (unknown) (no date) (unknown) (unknown) 4 (units (unkn own) unknown) (unknown) (no date) (unknown) (unknown) GenericCompos (units (unknown) ite[ESCCOL^Esc unknown) herichia coli] Result panel 41 (unknown) (no (unknown) (unknown) (no value) (units (unk nown) date) unknown) (unknown) (no (unknown) (unknown) Date of Service: (units (unknown) date) 03/18/22 unknown) (unknown) (no (unknown) (unknown) (no value) (units (unk nown) date) unknown) (unknown) (no (unknown) (unknown) - (units (unkno wn) date) unknown) (unknown) (no (unknown) (unknown) 03/22/22 05:47 (units (unknown) date) unknown) (unknown) (no (unknown) (unknown) [facility] (units (unknown) date) [address] unknown) [place] [address] (unknown) (no (unknown) (unknown) Progress Note (units ( unknown) date) unknown) (unknown) (no (unknown) (unknown) (no value) (units (unk nown) date) unknown) (unknown) (no (unknown) (unknown) 03/24/22 (units (unkno wn) date) unknown) (unknown) (no (unknown) (unknown) (12/05/17) (units (unk nown) date) unknown) (unknown) (no (unknown) (unknown) (past 8 hours): (units (unknown) date) unknown) (unknown) (no (unknown) (unknown) 08:02 03/24/22 (units (unknown) date) unknown) (unknown) (no (unknown) (unknown) 11:00 03/24/22 (units (unknown) date) unknown) (unknown) (no (unknown) (unknown) 12:00 (units (unkno wn) date) unknown) (unknown) (no (unknown) (unknown) Abdominal pain (units (unknown) date) unknown) (unknown) (no (unknown) (unknown) Acute pancreatitis (units (unknown) date) unknown) (unknown) (no (unknown) (unknown) Age/Sex: 86 / F (units (unknown) date) unknown) (unknown) (no (unknown) (unknown) Anesthesia (units (unk nown) date) unknown) (unknown) (no (unknown) (unknown) Anticoagulated (units (unknown) date) unknown) (unknown) (no (unknown) (unknown) Anxiety (units (unkno wn) date) unknown) 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 () (unknown) (no (unknown) (unknown) 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 (09/28/12) (unknown) (no (unknown) (unknown) Assessment + Plan (units (unknown) date) unknown) (unknown) (no (unknown) (unknown) Asthma (units (unkno wn) date) unknown) (unknown) (no (unknown) (unknown) Blood Pressure (units (unknown) date) 101/62 112/62 unknown) (unknown) (no (unknown) (unknown) Breast cancer (units ( unknown) date) (-2001) unknown) (unknown) (no (unknown) (unknown) 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 unknown) No extra sounds or murmurs. 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 (unknown) (no (unknown) (unknown) Cervical cancer, (units (unknown) date) FIGO stage I unknown) (unknown) (no (unknown) (unknown) Cholelithiasis (units (unknown) date) unknown) (unknown) (no (unknown) (unknown) Chronic back pain (units (unknown) date) unknown) (unknown) (no (unknown) (unknown) Critical Care (units ( unknown) date) time: unknown) (unknown) (no (unknown) (unknown) : 1935 (units (unknown) date) Acct:[id number] unknown) (unknown) (no (unknown) (unknown) Date Patient Seen: (units (unknown) date) 03/24/22 unknown) (unknown) (no (unknown) (unknown) Deep Vein (units (unkn own) date) Thrombosis/Pulmonar unknown) y Embolism Present on Admission: No (unknown) (no (unknown) (unknown) Developmental (units ( unknown) date) disorder unknown) (unknown) (no (unknown) (unknown) Diarrhea (units (unkno wn) date) unknown) (unknown) (no (unknown) (unknown) Essential (units (unkn own) date) hypertension unknown) (09/28/12) (unknown) (no (unknown) (unknown) Exam (units (unkno wn) date) unknown) (unknown) (no (unknown) (unknown) Exam Narrative: (units (unknown) date) unknown) (unknown) (no (unknown) (unknown) Failure to thrive (units (unknown) date) in adult unknown) (unknown) (no (unknown) (unknown) Family History (units (unknown) date) (Reviewed 03/18/22 unknown) @ 04:05 by JULIETTE Alfred) (unknown) (no (unknown) (unknown) Father (units (unknown) date) Myocardial infarct unknown) (unknown) (no (unknown) (unknown) Fibrocystic breast (units (unknown) date) disease unknown) (unknown) (no (unknown) (unknown) GERD (units (unkno wn) date) (gastroesophageal unknown) reflux disease) (unknown) (no (unknown) (unknown) Gastrointestinal: (units (unknown) date) Abdomen is soft. unknown) Bowel sounds normal. (unknown) (no (unknown) (unknown) HEENT: Pupils (units (unknown) date) equal react to unknown) light extraocular movements normal. Neck is (unknown) (no (unknown) (unknown) History of colon (units (unknown) date) polyps (09/28/12) unknown) (unknown) (no (unknown) (unknown) History of left (units (unknown) date) breast cancer unknown) (-2008) (unknown) (no (unknown) (unknown) Hospitalist follow (units (unknown) date) up visit. 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) unknown) (unknown) (no (unknown) (unknown) Interval history: (units (unknown) date) unknown) (unknown) (no (unknown) (unknown) Labs (units (unkno wn) date) unknown) (unknown) (no (unknown) (unknown) [id number] (units (unk nown) date) unknown) (unknown) (no (unknown) (unknown) Measles (units (unkno wn) date) unknown) (unknown) (no (unknown) (unknown) Medical History (units (unknown) date) (Reviewed 03/18/22 unknown) @ 04:05 by Eliana Barry, [employer]PERATOR) 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 No localized (unknown) (no (unknown) (unknown) Narrative (units (unkn own) date) unknown) (unknown) (no (unknown) (unknown) Neuro: Normal (units (unknown) date) sensation of all unknown) extremities. No localized deficits. (unknown) (no (unknown) (unknown) Objective (units (unkn own) date) unknown) (unknown) (no (unknown) (unknown) Osteoarthritis of (units (unknown) date) knees, bilateral unknown) (unknown) (no (unknown) (unknown) Oxygen Delivery (units (unknown) date) Method Room Air unknown) (unknown) (no (unknown) (unknown) Oxygen Delivery (units (unknown) date) Method Room Air unknown) (unknown) (no (unknown) (unknown) Oxygen Flow Rate (units (unknown) date) 0 unknown) (unknown) (no (unknown) (unknown) Oxygen Flow Rate (units (unknown) date) 0 unknown) (unknown) (no (unknown) (unknown) PFSH (units (unkno wn) date) unknown) (unknown) (no (unknown) (unknown) Patient alert (units ( unknown) date) oriented to place unknown) and person. Appears to be in no distress. (unknown) (no (unknown) (unknown) Patient resting (units (unknown) date) comfortably. 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 (09/28/12) (unknown) (no (unknown) (unknown) Status post (units (un known) date) arthroscopy unknown) (unknown) (no (unknown) (unknown) Status post biopsy (units (unknown) date) () unknown) (unknown) (no (unknown) (unknown) Status post breast (units (unknown) date) lumpectomy () unknown) (unknown) (no (unknown) (unknown) Status post (units (un known) date) cholecystectomy unknown) (unknown) (no (unknown) (unknown) 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 (unknown) (no (unknown) (unknown) Status post (units (un known) date) hysterectomy unknown) (-2009) (unknown) (no (unknown) (unknown) Subjective (units (unk nown) date) unknown) (unknown) (no (unknown) (unknown) Surgical History (units (unknown) date) (Reviewed 03/18/22 unknown) @ 04:05 by JULIETTE Alfred) (unknown) (no (unknown) (unknown) 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, NYHA (unknown) (no (unknown) (unknown) Temperature 97.0 (units (unknown) date) F L unknown) (unknown) (no (unknown) (unknown) Time Spent With (units (unknown) date) Patient unknown) (unknown) (no (unknown) (unknown) VTE (units (unkno wn) date) unknown) (unknown) (no (unknown) (unknown) Vital Signs (units (un known) date) unknown) (unknown) (no (unknown) (unknown) [Embedded Image (units (unknown) date) Not Available] unknown) (unknown) (no (unknown) (unknown) alcohol intake: (units (unknown) date) never unknown) (unknown) (no (unknown) (unknown) class 2 (06/05/11) (units (unknown) date) unknown) (unknown) (no (unknown) (unknown) cough. No (units (unk nown) date) abdominal pain unknown) constipation or diarrhea. Able to move all (unknown) (no (unknown) (unknown) crackles. (units (unkn own) date) unknown) (unknown) (no (unknown) (unknown) diaphoresis. No (units (unknown) date) chest pain or unknown) palpitations. No shortness of breath wheezing or (unknown) (no (unknown) (unknown) extremities (units (un known) date) volitionally. Does unknown) have general weakness (unknown) (no (unknown) (unknown) has not seen her (units (unknown) date) son. Not unknown) complaining of any fever chills nausea vomiting or (unknown) (no (unknown) (unknown) household members: (units (unknown) date) children unknown) (unknown) (no (unknown) (unknown) pulses equal (units (u nknown) date) bilaterally. unknown) (unknown) (no (unknown) (unknown) strength deficits. (units (unknown) date) unknown) (unknown) (no (unknown) (unknown) supple. Trachea (units (unknown) date) is midline. unknown) (unknown) (no (unknown) (unknown) today. Feels that (units (unknown) date) she is being well unknown) taken care of. Still very sad better she (unknown) (no (unknown) (unknown) today; this time (units (unknown) date) is exclusive of unknown) procedural time. Result panel 42 (unknown) (no (unknown) (unknown) (no value) (units (unk nown) date) unknown) (unknown) (no (unknown) (unknown) Date of Service: (units (unknown) date) 03/18/22 unknown) (unknown) (no (unknown) (unknown) (no value) (units (unk nown) date) unknown) (unknown) (no (unknown) (unknown) - (units (unkno wn) date) unknown) (unknown) (no (unknown) (unknown) 03/22/22 05:47 (units (unknown) date) unknown) (unknown) (no (unknown) (unknown) 03/24/22 1606 (units ( unknown) date) unknown) (unknown) (no (unknown) (unknown) [facility] (units (unknown) date) [address]) [place] [address] (unknown) (no (unknown) (unknown) Progress Note (units ( unknown) date) unknown) (unknown) (no (unknown) (unknown) (no value) (units (unk nown) date) unknown) (unknown) (no (unknown) (unknown) 03/24/22 (units (unkno wn) date) unknown) (unknown) (no (unknown) (unknown) for the patient. (units (unknown) date) unknown) (unknown) (no (unknown) (unknown) own healthcare (units (unknown) date) decisions. Have unknown) consulted Psychiatry to help with this. (unknown) (no (unknown) (unknown) (12/05/17) (units (unk nown) date) unknown) (unknown) (no (unknown) (unknown) (past 8 hours): (units (unknown) date) unknown) (unknown) (no (unknown) (unknown) 08:02 03/24/22 (units (unknown) date) unknown) (unknown) (no (unknown) (unknown) 1. Chest pain (units ( unknown) date) unknown) (unknown) (no (unknown) (unknown) 11:00 03/24/22 (units (unknown) date) unknown) (unknown) (no (unknown) (unknown) 12:00 (units (unkno wn) date) unknown) (unknown) (no (unknown) (unknown) 2. 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 Chronic GERD (units (unknown) date) unknown) (unknown) (no (unknown) (unknown) 5. CHF (units (unkno wn) date) unknown) (unknown) (no (unknown) (unknown) 9. Some depression (units (unknown) date) secondary to loss unknown) of interaction with her son. Have (unknown) (no (unknown) (unknown) ? 8. Acute severe (units (unknown) date) protein calorie unknown) malnutrition (unknown) (no (unknown) (unknown) ? Appears (units (unkn own) date) euvolemic unknown) presently. (unknown) (no (unknown) (unknown) ? Remains rate (units (unknown) date) controlled.? Is on unknown) chronic apixaban. (unknown) (no (unknown) (unknown) ? She will need (units (unknown) date) 18/04 supervision.? unknown) She likely does not have capacity to make her (unknown) (no (unknown) (unknown) ? Suspect this (units (unknown) date) could have been unknown) contributing to her chest pain.? It may be she (unknown) (no (unknown) (unknown) ? Uncertain as to (units (unknown) date) her previous unknown) cardiac interventions.? Has a sternal scar from (unknown) (no (unknown) (unknown) ?6. Psychosocial (units (unknown) date) issues / caregiving unknown) issues (unknown) (no (unknown) (unknown) ?7. Cognitive (units ( unknown) date) impairment/dementia unknown) (unknown) (no (unknown) (unknown) ?Patient presented (units (unknown) date) with complaints of unknown) chest pain.? Negative workup for [place]. Low (unknown) (no (unknown) (unknown) ?code status (units (u nknown) date) unknown) (unknown) (no (unknown) (unknown) ?prophylaxis (units (u nknown) date) unknown) (unknown) (no (unknown) (unknown) Abdominal pain (units (unknown) date) unknown) (unknown) (no (unknown) (unknown) Acute pancreatitis (units (unknown) date) unknown) (unknown) (no (unknown) (unknown) Age/Sex: 86 / F (units (unknown) date) unknown) (unknown) (no (unknown) (unknown) Anesthesia (units (unk nown) date) unknown) (unknown) (no (unknown) (unknown) Anticoagulated (units (unknown) date) unknown) (unknown) (no (unknown) (unknown) Anxiety (units (unkno wn) date) unknown) 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 () (unknown) (no (unknown) (unknown) 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 (09/28/12) (unknown) (no (unknown) (unknown) Assessment + Plan (units (unknown) date) unknown) (unknown) (no (unknown) (unknown) Assessment + Plan (units (unknown) date) narrative: unknown) (unknown) (no (unknown) (unknown) Asthma (units (unkno wn) date) unknown) (unknown) (no (unknown) (unknown) Blood Pressure (units (unknown) date) 101/62 112/62 unknown) (unknown) (no (unknown) (unknown) Breast cancer (units ( unknown) date) (-2001) unknown) (unknown) (no (unknown) (unknown) 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 unknown) No extra sounds or murmurs. 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 (unknown) (no (unknown) (unknown) Cervical cancer, (units (unknown) date) FIGO stage I unknown) (unknown) (no (unknown) (unknown) Cholelithiasis (units (unknown) date) unknown) (unknown) (no (unknown) (unknown) Chronic back pain (units (unknown) date) unknown) (unknown) (no (unknown) (unknown) Critical Care (units ( unknown) date) time: unknown) (unknown) (no (unknown) (unknown) Current status of (units (unknown) date) diagnosis are as unknown) follows: (unknown) (no (unknown) (unknown) : 1935 (units (unknown) date) Acct:[id number] unknown) (unknown) (no (unknown) (unknown) Date Patient Seen: (units (unknown) date) 03/24/22 unknown) (unknown) (no (unknown) (unknown) Deep Vein (units (unkn own) date) Thrombosis/Pulmonar unknown) y Embolism Present on Admission: No (unknown) (no (unknown) (unknown) Developmental (units ( unknown) date) disorder unknown) (unknown) (no (unknown) (unknown) Diarrhea (units (unkno wn) date) unknown) (unknown) (no (unknown) (unknown) Essential (units (unkn own) date) hypertension unknown) (09/28/12) (unknown) (no (unknown) (unknown) Exam (units (unkno wn) date) unknown) (unknown) (no (unknown) (unknown) Exam Narrative: (units (unknown) date) unknown) (unknown) (no (unknown) (unknown) Failure to thrive (units (unknown) date) in adult unknown) (unknown) (no (unknown) (unknown) Family History (units (unknown) date) (Reviewed 03/18/22 unknown) @ 04:05 by JULIETTE Alfred) (unknown) (no (unknown) (unknown) Father (units (unknown) date) Myocardial infarct unknown) (unknown) (no (unknown) (unknown) Fibrocystic breast (units (unknown) date) disease unknown) (unknown) (no (unknown) (unknown) Full (units (unkno wn) date) unknown) (unknown) (no (unknown) (unknown) GERD (units (unkno wn) date) (gastroesophageal unknown) reflux disease) (unknown) (no (unknown) (unknown) Gastrointestinal: (units (unknown) date) Abdomen is soft. unknown) Bowel sounds normal. (unknown) (no (unknown) (unknown) HEENT: Pupils (units (unknown) date) equal react to unknown) light extraocular movements normal. Neck is (unknown) (no (unknown) (unknown) History of colon (units (unknown) date) polyps (09/28/12) unknown) (unknown) (no (unknown) (unknown) History of left (units (unknown) date) breast cancer unknown) (-2008) (unknown) (no (unknown) (unknown) Hospitalist follow (units (unknown) date) up visit. 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) unknown) (unknown) (no (unknown) (unknown) Interval history: (units (unknown) date) unknown) (unknown) (no (unknown) (unknown) Labs (units (unkno wn) date) unknown) (unknown) (no (unknown) (unknown) [id number] (units (unk nown) date) unknown) (unknown) (no (unknown) (unknown) Measles (units (unkno wn) date) unknown) (unknown) (no (unknown) (unknown) Medical History (units (unknown) date) (Reviewed 03/18/22 unknown) @ 04:05 by JULIETTE Alfred) 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 No localized (unknown) (no (unknown) (unknown) Narrative (units (unkn own) date) unknown) (unknown) (no (unknown) (unknown) Neuro: Normal (units (unknown) date) sensation of all unknown) extremities. No localized deficits. (unknown) (no (unknown) (unknown) Objective (units (unkn own) date) unknown) (unknown) (no (unknown) (unknown) On apixaban (units (un known) date) unknown) (unknown) (no (unknown) (unknown) Osteoarthritis of (units (unknown) date) knees, bilateral unknown) (unknown) (no (unknown) (unknown) Oxygen Delivery (units (unknown) date) Method Room Air unknown) (unknown) (no (unknown) (unknown) Oxygen Delivery (units (unknown) date) Method Room Air unknown) (unknown) (no (unknown) (unknown) Oxygen Flow Rate (units (unknown) date) 0 unknown) (unknown) (no (unknown) (unknown) Oxygen Flow Rate (units (unknown) date) 0 unknown) (unknown) (no (unknown) (unknown) PFSH (units (unkno wn) date) unknown) (unknown) (no (unknown) (unknown) Patient alert (units ( unknown) date) oriented to place unknown) and person. Appears to be in no distress. (unknown) (no (unknown) (unknown) Patient resting (units (unknown) date) comfortably. 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 No wheezes or (unknown) (no (unknown) (unknown) Result Diagrams: (units (unknown) date) unknown) (unknown) (no (unknown) (unknown) Signed (units (unkno wn) date) By:<Electronically unknown) signed by Meli Lomax MD> (unknown) (no (unknown) (unknown) Sister (units (unknown) date) Traumatic unknown) amputation (unknown) (no (unknown) (unknown) Smoking Status: (units (unknown) date) Never smoker unknown) (unknown) (no (unknown) (unknown) Social History (units (unknown) date) (Reviewed 03/17/22 unknown) @ 21:36 by Jossue Salcido MD) (unknown)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 unknown) Oral nutritional supplementation as (unknown) (no (unknown) (unknown) [Embedded Image (units (unknown) date) Not Available] unknown) (unknown) (no (unknown) (unknown) alcohol intake: (units (unknown) date) never unknown) (unknown) (no (unknown) (unknown) and calcium for (units (unknown) date) regular unknown) supplementation. (unknown) (no (unknown) (unknown) and comb etc. and a (units (unknown) date) few other unknown) belongings that very personal to her including her (unknown) (no (unknown) (unknown) appreciate their (units (unknown) date) input.? unknown) (unknown) (no (unknown) (unknown) bank book. She is (units (unknown) date) worried that they unknown) were going to be thrown out and she does (unknown) (no (unknown) (unknown) class 2 (06/05/11) (units (unknown) date) unknown) (unknown) (no (unknown) (unknown) crackles. (units (unkn own) date) unknown) (unknown) (no (unknown) (unknown) edema (units (unkno wn) date) unknown) (unknown) (no (unknown) (unknown) has esophageal (units (unknown) date) spasm that was unknown) responsive to nitroglycerin.? Well controlled (unknown) (no (unknown) (unknown) her mind. Start (units (unknown) date) mirtazapine 7.5 mg unknown) q.h.s. Have consulted Psychiatry and (unknown) (no (unknown) (unknown) household members: (units (unknown) date) children unknown) (unknown) (no (unknown) (unknown) legs. Is in a (units (unknown) date) good mood other unknown) than her worry about her things. (unknown) (no (unknown) (unknown) liked her clothes, (units (unknown) date) her photos of her unknown) family, some personal items like deodorant (unknown) (no (unknown) (unknown) normal. neck is (units (unknown) date) supple. Neck nodes unknown) are nontender and nonpalpable. (unknown) (no (unknown) (unknown) not want that to (units (unknown) date) happen. Also she unknown) is worried about the puppy that was living (unknown) (no (unknown) (unknown) prior intervention (units (unknown) date) (pt does not recall unknown) what was done).? (unknown) (no (unknown) (unknown) properly. She is (units (unknown) date) not as focused on unknown) her son today. It is more practical (unknown) (no (unknown) (unknown) reasonable (units (unk nown) date) concerns of hers to unknown) feel connected to her things that she owned. (unknown) (no (unknown) (unknown) reassured that we (units (unknown) date) are looking into unknown) that for her. (unknown) (no (unknown) (unknown) residence. (units (unk nown) date) unknown) (unknown) (no (unknown) (unknown) risk cardiac (units (u nknown) date) stress test.? unknown) Likely musculoskeletal in nature.? No symptoms today (unknown) (no (unknown) (unknown) strength deficits (units (unknown) date) unknown) (unknown) (no (unknown) (unknown) today in treating (units (unknown) date) with pantoprazole. unknown) (unknown) (no (unknown) (unknown) today; this time (units (unknown) date) is exclusive of unknown) procedural time. (unknown) (no (unknown) (unknown) tolerated.? (units (un known) date) Patient eating well unknown) in the hospital. Had multivitamin, vitamin-D (unknown) (no (unknown) (unknown) with her whether (units (unknown) date) it is being taking unknown) care of and getting its nail clipped Result panel 45 (unknown) (no (unknown) (unknown) (no value) (units (unk nown) date) unknown) (unknown) (no (unknown) (unknown) Date of Service: (units (unknown) date) 03/18/22 unknown) (unknown) (no (unknown) (unknown) (no value) (units (unk nown) date) unknown) (unknown) (no (unknown) (unknown) - (units (unkno wn) date) unknown) (unknown) (no (unknown) (unknown) 03/22/22 05:47 (units (unknown) date) unknown) (unknown) (no (unknown) (unknown) [facility] (units (unknown) date) [id number]) [place] [address] (unknown) (no (unknown) (unknown) Progress Note (units ( unknown) date) unknown) (unknown) (no (unknown) (unknown) (no value) (units (unk nown) date) unknown) (unknown) (no (unknown) (unknown) 03/26/22 (units (unkno wn) date) unknown) (unknown) (no (unknown) (unknown) for the patient. (units (unknown) date) Patient is worried unknown) about how this will be found. She is also (unknown) (no (unknown) (unknown) normal reactive (units (unknown) date) depression, is unknown) improving as patient search through things in (unknown) (no (unknown) (unknown) own healthcare (units (unknown) date) decisions.? Have unknown) consulted Psychiatry to help with this. (unknown) (no (unknown) (unknown) worried that her (units (unknown) date) personal things unknown) over the thrown out from her previous (unknown) (no (unknown) (unknown) (12/05/17) (units (unk nown) date) unknown) (unknown) (no (unknown) (unknown) (past 8 hours): (units (unknown) date) unknown) (unknown) (no (unknown) (unknown) -stable, no new (units (unknown) date) tra unknown) (unknown) (no (unknown) (unknown) 09:00 03/26/22 (units (unknown) date) unknown) (unknown) (no (unknown) (unknown) 09:26 03/26/22 (units (unknown) date) unknown) (unknown) (no (unknown) (unknown) 1. Chest pain (units ( unknown) date) unknown) (unknown) (no (unknown) (unknown) 11:00 (units (unkno wn) date) unknown) (unknown) (no (unknown) (unknown) 12:00 (units (unkno wn) date) unknown) (unknown) (no (unknown) (unknown) 2. 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 Chronic GERD (units (unknown) date) unknown) (unknown) (no (unknown) (unknown) 5. CHF (units (unkno wn) date) unknown) (unknown) (no (unknown) (unknown) 9. Some depression (units (unknown) date) secondary to loss unknown) of interaction with her son. Appears to be (unknown) (no (unknown) (unknown) ? 8. Acute severe (units (unknown) date) protein calorie unknown) malnutrition (unknown) (no (unknown) (unknown) ? Appears (units (unkn own) date) euvolemic unknown) presently. (unknown) (no (unknown) (unknown) ? Remains rate (units (unknown) date) controlled.? Is on unknown) chronic apixaban. (unknown) (no (unknown) (unknown) ? She will need (units (unknown) date) 24/7 supervision.? unknown) She likely does not have capacity to make her (unknown) (no (unknown) (unknown) ?-controlled (units (u nknown) date) unknown) (unknown) (no (unknown) (unknown) ?6. Psychosocial (units (unknown) date) issues / caregiving unknown) issues (unknown) (no (unknown) (unknown) ?7. Cognitive (units ( unknown) date) impairment/dementia unknown) (unknown) (no (unknown) (unknown) ?Patient presented (units (unknown) date) with complaints of unknown) chest pain.? Negative workup for [place]. Low (unknown) (no (unknown) (unknown) ?code status (units (u nknown) date) unknown) (unknown) (no (unknown) (unknown) Abdominal pain (units (unknown) date) unknown) (unknown) (no (unknown) (unknown) Acute pancreatitis (units (unknown) date) unknown) (unknown) (no (unknown) (unknown) Age/Sex: 86 / F (units (unknown) date) unknown) (unknown) (no (unknown) (unknown) Anesthesia (units (unk nown) date) unknown) (unknown) (no (unknown) (unknown) Anticoagulated (units (unknown) date) unknown) (unknown) (no (unknown) (unknown) Anxiety (units (unkno wn) date) unknown) 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 () (unknown) (no (unknown) (unknown) 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 (09/28/12) (unknown) (no (unknown) (unknown) Assessment + Plan (units (unknown) date) unknown) (unknown) (no (unknown) (unknown) Assessment + Plan (units (unknown) date) narrative: unknown) (unknown) (no (unknown) (unknown) Asthma (units (unkno wn) date) unknown) (unknown) (no (unknown) (unknown) Blood Pressure (units (unknown) date) 102/61 unknown) (unknown) (no (unknown) (unknown) Blood Pressure (units (unknown) date) 134/77 134/77 unknown) (unknown) (no (unknown) (unknown) Breast cancer (units ( unknown) date) () unknown) (unknown) (no (unknown) (unknown) 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) unknown) (unknown) (no (unknown) (unknown) CV: regular rate (units (unknown) date) and rhythm, no unknown) murmurs (unknown) (no (unknown) (unknown) Calcified nodule (units (unknown) date) unknown) (unknown) (no (unknown) (unknown) 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 (unknown) (no (unknown) (unknown) Cervical cancer, (units (unknown) date) FIGO stage I unknown) (unknown) (no (unknown) (unknown) Cholelithiasis (units (unknown) date) unknown) (unknown) (no (unknown) (unknown) Chronic back pain (units (unknown) date) unknown) (unknown) (no (unknown) (unknown) Critical Care (units ( unknown) date) time: unknown) (unknown) (no (unknown) (unknown) : 1935 (units (unknown) date) Acct:[id number] unknown) (unknown) (no (unknown) (unknown) Date Patient Seen: (units (unknown) date) 03/26/22 unknown) (unknown) (no (unknown) (unknown) Deep Vein (units (unkn own) date) Thrombosis/Pulmonar unknown) y Embolism Present on Admission: No (unknown) (no (unknown) (unknown) Depression (units (unk nown) date) (emotion) unknown) (unknown) (no (unknown) (unknown) Developmental (units ( unknown) date) disorder unknown) (unknown) (no (unknown) (unknown) Diarrhea (units (unkno wn) date) unknown) (unknown) (no (unknown) (unknown) Essential (units (unkn own) date) hypertension unknown) (09/28/12) (unknown) (no (unknown) (unknown) Exam (units (unkno wn) date) unknown) (unknown) (no (unknown) (unknown) Exam Narrative: (units (unknown) date) unknown) (unknown) (no (unknown) (unknown) Failure to thrive (units (unknown) date) in adult unknown) (unknown) (no (unknown) (unknown) Family History (units (unknown) date) (Reviewed 03/18/22 unknown) @ 04:05 by JULIETTE Alfred) (unknown) (no (unknown) (unknown) Father (units (unknown) date) Myocardial infarct unknown) (unknown) (no (unknown) (unknown) Fibrocystic breast (units (unknown) date) disease unknown) (unknown) (no (unknown) (unknown) Full (units (unkno wn) date) unknown) (unknown) (no (unknown) (unknown) GEN: no acute (units ( unknown) date) distress unknown) (unknown) (no (unknown) (unknown) GERD (units (unkno wn) date) (gastroesophageal unknown) reflux disease) (unknown) (no (unknown) (unknown) History of colon (units (unknown) date) polyps (09/28/12) unknown) (unknown) (no (unknown) (unknown) History of left (units (unknown) date) breast cancer unknown) () (unknown) (no (unknown) (unknown) Hyperlipidemia (units (unknown) date) 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) unknown) (unknown) (no (unknown) (unknown) Interval history: (units (unknown) date) unknown) (unknown) (no (unknown) (unknown) Labs (units (unkno wn) date) unknown) (unknown) (no (unknown) (unknown) [id number] (units (unk nown) date) unknown) (unknown) (no (unknown) (unknown) Measles (units (unkno wn) date) unknown) (unknown) (no (unknown) (unknown) Medical History (units (unknown) date) (Updated 03/24/22 @ unknown) 18:03 by Humza Yip DO) 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 unknown) () (unknown) (no (unknown) (unknown) Mother (units (unknown) date) Maternal unknown) complication related to childbirth (unknown) (no (unknown) (unknown) Narrative (units (unkn own) date) unknown) (unknown) (no (unknown) (unknown) Objective (units (unkn own) date) unknown) (unknown) (no (unknown) (unknown) Osteoarthritis of (units (unknown) date) knees, bilateral unknown) (unknown) (no (unknown) (unknown) Oxygen Delivery (units (unknown) date) Method Room Air unknown) (unknown) (no (unknown) (unknown) Oxygen Delivery (units (unknown) date) Method unknown) (unknown) (no (unknown) (unknown) Oxygen Delivery (units (unknown) date) Method Room Air unknown) (unknown) (no (unknown) (unknown) Oxygen Flow Rate (units (unknown) date) 0 unknown) (unknown) (no (unknown) (unknown) Oxygen Flow Rate (units (unknown) date) 0 unknown) (unknown) (no (unknown) (unknown) Oxygen Flow Rate 0 (units (unknown) date) unknown) (unknown) (no (unknown) (unknown) PFSH (units (unkno wn) date) unknown) 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 unknown) () (unknown) (no (unknown) (unknown) Provider: (units (unkn own) date) Alcon De La Cruz MD unknown) (unknown) (no (unknown) (unknown) Pulse Oximetry 98 (units (unknown) date) unknown) (unknown) (no (unknown) (unknown) Pulse Oximetry 96 (units (unknown) date) unknown) (unknown) (no (unknown) (unknown) Pulse Rate 64 (units ( unknown) date) unknown) (unknown) (no (unknown) (unknown) Pulse Rate 66 66 (units (unknown) date) unknown) (unknown) (no (unknown) (unknown) Quality (units (unkno wn) date) unknown) (unknown) (no (unknown) (unknown) Respiratory Rate (units (unknown) date) 18 unknown) (unknown) (no (unknown) (unknown) Respiratory Rate (units (unknown) date) 16 unknown) (unknown) (no (unknown) (unknown) Respiratory: (units (u nknown) date) clear bilaterally unknown) (unknown) (no (unknown) (unknown) Result Diagrams: (units (unknown) date) unknown) (unknown) (no (unknown) (unknown) Signed By: (units (unk nown) date) unknown) (unknown) (no (unknown) (unknown) Sister (units (unknown) date) Traumatic unknown) amputation (unknown) (no (unknown) (unknown) Smoking Status: (units (unknown) date) Never smoker unknown) (unknown) (no (unknown) (unknown) Social History (units (unknown) date) (Reviewed 03/17/22 unknown) @ 21:36 by Jossue Salcido MD) (unknown) (no (unknown) (unknown) Son not able to (units (unknown) date) take care of unknown) patient.? 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 (09/28/12) (unknown) (no (unknown) (unknown) Status post (units (un known) date) arthroscopy unknown) (unknown) (no (unknown) (unknown) Status post biopsy (units (unknown) date) () unknown) (unknown) (no (unknown) (unknown) Status post breast (units (unknown) date) lumpectomy (-2008) unknown) (unknown) (no (unknown) (unknown) Status post (units (un known) date) cholecystectomy unknown) (unknown) (no (unknown) (unknown) 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 (unknown) (no (unknown) (unknown) Status post (units (un known) date) hysterectomy unknown) (-2009) (unknown) (no (unknown) (unknown) Subjective (units (unk nown) date) unknown) (unknown) (no (unknown) (unknown) Surgical History (units (unknown) date) (Reviewed 03/18/22 unknown) @ 04:05 by JULIETTE Alfred) (unknown) (no (unknown) (unknown) 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 unknown) (unknown) (no (unknown) (unknown) VTE (units (unkno wn) date) unknown) (unknown) (no (unknown) (unknown) Vital Signs (units (un known) date) unknown) (unknown) (no (unknown) (unknown) Weight loss over (units (unknown) date) the last 3 months.? unknown) Oral nutritional supplementation as (unknown) (no (unknown) (unknown) [Embedded Image (units (unknown) date) Not Available] unknown) (unknown) (no (unknown) (unknown) alcohol intake: (units (unknown) date) never unknown) (unknown) (no (unknown) (unknown) and calcium for (units (unknown) date) regular unknown) supplementation. (unknown) (no (unknown) (unknown) appreciate their (units (unknown) date) input.? unknown) (unknown) (no (unknown) (unknown) class 2 (06/05/11) (units (unknown) date) unknown) (unknown) (no (unknown) (unknown) her mind. Start (units (unknown) date) mirtazapine 7.5 mg unknown) q.h.s. Have consulted Psychiatry and (unknown) (no (unknown) (unknown) household members: (units (unknown) date) children unknown) (unknown) (no (unknown) (unknown) residence. (units (unk nown) date) unknown) (unknown) (no (unknown) (unknown) risk cardiac (units (u nknown) date) stress test. unknown) (unknown) (no (unknown) (unknown) today; this time (units (unknown) date) is exclusive of unknown) procedural time. (unknown) (no (unknown) (unknown) tolerated.? (units (un known) date) Patient eating well unknown) in the hospital. Had multivitamin, vitamin-D Result panel 46 (unknown) (no (unknown) (unknown) (no value) (units (unk nown) date) unknown) (unknown) (no (unknown) (unknown) Date of Service: (units (unknown) date) 03/18/22 unknown) (unknown) (no (unknown) (unknown) (no value) (units (unk nown) date) unknown) (unknown) (no (unknown) (unknown) - (units (unkno wn) date) unknown) (unknown) (no (unknown) (unknown) 03/22/22 05:47 (units (unknown) date) unknown) (unknown) (no (unknown) (unknown) 03/26/22 1702 (units ( unknown) date) unknown) (unknown) (no (unknown) (unknown) [facility] (units (unknown) date) [address]) [place] [address] (unknown) (no (unknown) (unknown) Progress Note (units ( unknown) date) unknown) (unknown) (no (unknown) (unknown) (no value) (units (unk nown) date) unknown) (unknown) (no (unknown) (unknown) 03/26/22 (units (unkno wn) date) unknown) (unknown) (no (unknown) (unknown) (12/05/17) (units (unk nown) date) unknown) (unknown) (no (unknown) (unknown) (past 8 hours): (units (unknown) date) unknown) (unknown) (no (unknown) (unknown) -continue (units (unkn own) date) mirtazapine unknown) (unknown) (no (unknown) (unknown) -follow dietary (units (unknown) date) recs unknown) (unknown) (no (unknown) (unknown) -needs 24/ (units (un known) date) supervision unknown) (unknown) (no (unknown) (unknown) -oral (units (unkno wn) date) supplementation unknown) ordered (unknown) (no (unknown) (unknown) -son not available (units (unknown) date) to take care of unknown) patient (unknown) (no (unknown) (unknown) -stable, euvolemic (units (unknown) date) unknown) (unknown) (no (unknown) (unknown) -stable, no new (units (unknown) date) tra unknown) (unknown) (no (unknown) (unknown) -weight loss over (units (unknown) date) 3 months unknown) (unknown) (no (unknown) (unknown) 09:00 03/26/22 (units (unknown) date) unknown) (unknown) (no (unknown) (unknown) 09:26 03/26/22 (units (unknown) date) unknown) (unknown) (no (unknown) (unknown) 1. Chest pain (units ( unknown) date) unknown) (unknown) (no (unknown) (unknown) 11:00 (units (unkno wn) date) unknown) (unknown) (no (unknown) (unknown) 12:00 (units (unkno wn) date) unknown) (unknown) (no (unknown) (unknown) 2. 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 Chronic GERD (units (unknown) date) unknown) (unknown) (no (unknown) (unknown) 5. CHF (units (unkno wn) date) unknown) (unknown) (no (unknown) (unknown) 9. Depression (units ( unknown) date) unknown) (unknown) (no (unknown) (unknown) ? 8. Acute severe (units (unknown) date) protein calorie unknown) malnutrition (unknown) (no (unknown) (unknown) ? Remains rate (units (unknown) date) controlled.? Is on unknown) chronic apixaban. (unknown) (no (unknown) (unknown) ?-controlled, (units ( unknown) date) continue PPI unknown) (unknown) (no (unknown) (unknown) ?6. Psychosocial (units (unknown) date) issues / caregiving unknown) issues (unknown) (no (unknown) (unknown) ?7. Cognitive (units ( unknown) date) impairment/dementia unknown) (unknown) (no (unknown) (unknown) ?Patient presented (units (unknown) date) with complaints of unknown) chest pain.? Negative workup for [place]. 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 () (unknown) (no (unknown) (unknown) 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 (09/28/12) (unknown) (no (unknown) (unknown) Assessment + Plan (units (unknown) date) unknown) (unknown) (no (unknown) (unknown) Assessment + Plan (units (unknown) date) narrative: unknown) (unknown) (no (unknown) (unknown) Asthma (units (unkno wn) date) unknown) (unknown) (no (unknown) (unknown) Blood Pressure (units (unknown) date) 102/61 unknown) (unknown) (no (unknown) (unknown) Blood Pressure (units (unknown) date) 134/77 134/77 unknown) (unknown) (no (unknown) (unknown) Breast cancer (units ( unknown) date) () unknown) (unknown) (no (unknown) (unknown) 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) unknown) (unknown) (no (unknown) (unknown) CV: regular rate (units (unknown) date) and rhythm, no unknown) murmurs (unknown) (no (unknown) (unknown) Calcified nodule (units (unknown) date) unknown) (unknown) (no (unknown) (unknown) 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 (unknown) (no (unknown) (unknown) Cervical cancer, (units (unknown) date) FIGO stage I unknown) (unknown) (no (unknown) (unknown) Cholelithiasis (units (unknown) date) unknown) (unknown) (no (unknown) (unknown) Chronic back pain (units (unknown) date) unknown) (unknown) (no (unknown) (unknown) Critical Care (units ( unknown) date) time: unknown) (unknown) (no (unknown) (unknown) : 1935 (units (unknown) date) Acct:[id number] unknown) (unknown) (no (unknown) (unknown) Date Patient Seen: (units (unknown) date) 03/26/22 unknown) (unknown) (no (unknown) (unknown) Deep Vein (units (unkn own) date) Thrombosis/Pulmonar unknown) y Embolism Present on Admission: No (unknown) (no (unknown) (unknown) Depression (units (unk nown) date) (emotion) unknown) (unknown) (no (unknown) (unknown) Developmental (units ( unknown) date) disorder unknown) (unknown) (no (unknown) (unknown) Diarrhea (units (unkno wn) date) unknown) (unknown) (no (unknown) (unknown) Dispo: likely (units ( unknown) date) 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, medically stable for dischargel (unknown) (no (unknown) (unknown) Essential (units (unkn own) date) hypertension unknown) (09/28/12) (unknown) (no (unknown) (unknown) Exam (units (unkno wn) date) unknown) (unknown) (no (unknown) (unknown) Exam Narrative: (units (unknown) date) unknown) (unknown) (no (unknown) (unknown) Failure to thrive (units (unknown) date) in adult unknown) (unknown) (no (unknown) (unknown) Family History (units (unknown) date) (Reviewed 03/18/22 unknown) @ 04:05 by JULIETTE Alfred) (unknown) (no (unknown) (unknown) Father (units (unknown) date) Myocardial infarct unknown) (unknown) (no (unknown) (unknown) Fibrocystic breast (units (unknown) date) disease unknown) (unknown) (no (unknown) (unknown) GEN: no acute (units ( unknown) date) distress unknown) (unknown) (no (unknown) (unknown) GERD (units (unkno wn) date) (gastroesophageal unknown) reflux disease) (unknown) (no (unknown) (unknown) History of colon (units (unknown) date) polyps (09/28/12) unknown) (unknown) (no (unknown) (unknown) History of left (units (unknown) date) breast cancer unknown) () (unknown) (no (unknown) (unknown) Hyperlipidemia (units (unknown) date) 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) unknown) (unknown) (no (unknown) (unknown) Interval history: (units (unknown) date) unknown) (unknown) (no (unknown) (unknown) Labs (units (unkno wn) date) unknown) (unknown) (no (unknown) (unknown) [id number] (units (unk nown) date) unknown) (unknown) (no (unknown) (unknown) Measles (units (unkno wn) date) unknown) (unknown) (no (unknown) (unknown) Medical History (units (unknown) date) (Updated 03/24/22 @ unknown) 18:03 by Humza Yip DO) 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 unknown) () (unknown) (no (unknown) (unknown) Mother (units (unknown) date) Maternal unknown) complication related to childbirth (unknown) (no (unknown) (unknown) Narrative (units (unkn own) date) unknown) (unknown) (no (unknown) (unknown) Objective (units (unkn own) date) unknown) (unknown) (no (unknown) (unknown) Osteoarthritis of (units (unknown) date) knees, bilateral unknown) (unknown) (no (unknown) (unknown) Oxygen Delivery (units (unknown) date) Method Room Air unknown) (unknown) (no (unknown) (unknown) Oxygen Delivery (units (unknown) date) Method unknown) (unknown) (no (unknown) (unknown) Oxygen Delivery (units (unknown) date) Method Room Air unknown) (unknown) (no (unknown) (unknown) Oxygen Flow Rate (units (unknown) date) 0 unknown) (unknown) (no (unknown) (unknown) Oxygen Flow Rate (units (unknown) date) 0 unknown) (unknown) (no (unknown) (unknown) Oxygen Flow Rate 0 (units (unknown) date) unknown) (unknown) (no (unknown) (unknown) PFSH (units (unkno wn) date) unknown) (unknown) (no (unknown) (unknown) Patient: (units (unkno wn) date) Jackie Prather unknown) MR#: (unknown) (no (unknown) (unknown) 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) (unknown) (no (unknown) (unknown) 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) () (unknown) (no (unknown) (unknown) 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 unknown) () (unknown) (no (unknown) (unknown) Provider: (units (unkn own) date) Alcon De La Cruz MD unknown) (unknown) (no (unknown) (unknown) Pulse Oximetry 98 (units (unknown) date) unknown) (unknown) (no (unknown) (unknown) Pulse Oximetry 96 (units (unknown) date) unknown) (unknown) (no (unknown) (unknown) Pulse Rate 64 (units ( unknown) date) unknown) (unknown) (no (unknown) (unknown) Pulse Rate 66 66 (units (unknown) date) unknown) (unknown) (no (unknown) (unknown) Quality (units (unkno wn) date) unknown) (unknown) (no (unknown) (unknown) Respiratory Rate (units (unknown) date) 18 unknown) (unknown) (no (unknown) (unknown) Respiratory Rate (units (unknown) date) 16 unknown) (unknown) (no (unknown) (unknown) Respiratory: (units (u nknown) date) clear bilaterally unknown) (unknown) (no (unknown) (unknown) Result Diagrams: (units (unknown) date) unknown) 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 (09/28/12) (unknown) (no (unknown) (unknown) Status post (units (un known) date) arthroscopy unknown) (unknown) (no (unknown) (unknown) Status post biopsy (units (unknown) date) (-2014) unknown) (unknown) (no (unknown) (unknown) Status post breast (units (unknown) date) lumpectomy () unknown) (unknown) (no (unknown) (unknown) Status post (units (un known) date) cholecystectomy unknown) (unknown) (no (unknown) (unknown) 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 (unknown) (no (unknown) (unknown) Status post (units (un known) date) hysterectomy unknown) () (unknown) (no (unknown) (unknown) Subjective (units (unk nown) date) unknown) (unknown) (no (unknown) (unknown) Surgical History (units (unknown) date) (Reviewed 03/18/22 unknown) @ 04:05 by JULIETTE Alfred) (unknown) (no (unknown) (unknown) 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 unknown) (unknown) (no (unknown) (unknown) VTE (units (unkno wn) date) unknown) (unknown) (no (unknown) (unknown) Vital Signs (units (un known) date) unknown) (unknown) (no (unknown) (unknown) Weight loss over (units (unknown) date) the last 3 months.? unknown) Oral nutritional supplementation as (unknown) (no (unknown) (unknown) [Embedded Image (units (unknown) date) Not Available] unknown) (unknown) (no (unknown) (unknown) alcohol intake: (units (unknown) date) never unknown) (unknown) (no (unknown) (unknown) and calcium for (units (unknown) date) regular unknown) supplementation. (unknown) (no (unknown) (unknown) class 2 (06/05/11) (units (unknown) date) unknown) (unknown) (no (unknown) (unknown) household members: (units (unknown) date) children unknown) (unknown) (no (unknown) (unknown) risk cardiac (units (u nknown) date) stress test. unknown) (unknown) (no (unknown) (unknown) today; this time (units (unknown) date) is exclusive of unknown) procedural time. (unknown) (no (unknown) (unknown) tolerated.? (units (un known) date) Patient eating well unknown) in the hospital. Had multivitamin, vitamin-D Result panel 47 (unknown) (no (unknown) (unknown) (no value) (units (unk nown) date) unknown) (unknown) (no (unknown) (unknown) Date of Service: (units (unknown) date) 03/18/22 unknown) (unknown) (no (unknown) (unknown) (no value) (units (unk nown) date) unknown) (unknown) (no (unknown) (unknown) - (units (unkno wn) date) unknown) (unknown) (no (unknown) (unknown) 03/22/22 05:47 (units (unknown) date) unknown) (unknown) (no (unknown) (unknown) 03/27/22 1512 (units ( unknown) date) unknown) (unknown) (no (unknown) (unknown) [facility] (units (unknown) date) [address] unknown) [place] [id number] (unknown) (no (unknown) (unknown) Progress Note (units ( unknown) date) unknown) (unknown) (no (unknown) (unknown) (no value) (units (unk nown) date) unknown) (unknown) (no (unknown) (unknown) 03/27/22 (units (unkno wn) date) unknown) (unknown) (no (unknown) (unknown) (12/05/17) (units (unk nown) date) unknown) (unknown) (no (unknown) (unknown) (past 8 hours): (units (unknown) date) unknown) (unknown) (no (unknown) (unknown) -continue (units (unkn own) date) mirtazapine unknown) (unknown) (no (unknown) (unknown) -follow dietary (units (unknown) date) recs unknown) (unknown) (no (unknown) (unknown) -needs 18/04 (units (un known) date) supervision unknown) (unknown) (no (unknown) (unknown) -oral (units (unkno wn) date) supplementation unknown) ordered (unknown) (no (unknown) (unknown) -son not available (units (unknown) date) to take care of unknown) patient (unknown) (no (unknown) (unknown) -stable, euvolemic (units (unknown) date) unknown) (unknown) (no (unknown) (unknown) -stable, no new (units (unknown) date) tra unknown) (unknown) (no (unknown) (unknown) -weight loss over (units (unknown) date) 3 months unknown) (unknown) (no (unknown) (unknown) 1. Chest pain (units ( unknown) date) unknown) (unknown) (no (unknown) (unknown) 10:12 03/27/22 (units (unknown) date) unknown) (unknown) (no (unknown) (unknown) 12:00 (units (unkno wn) date) unknown) (unknown) (no (unknown) (unknown) 2. 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 Chronic GERD (units (unknown) date) unknown) (unknown) (no (unknown) (unknown) 5. CHF (units (unkno wn) date) unknown) (unknown) (no (unknown) (unknown) 9. Depression (units ( unknown) date) unknown) (unknown) (no (unknown) (unknown) ? 8. Acute severe (units (unknown) date) protein calorie unknown) malnutrition (unknown) (no (unknown) (unknown) ? Remains rate (units (unknown) date) controlled.? Is on unknown) chronic apixaban. (unknown) (no (unknown) (unknown) ?-controlled, (units ( unknown) date) continue PPI unknown) (unknown) (no (unknown) (unknown) ?6. Psychosocial (units (unknown) date) issues / caregiving unknown) issues (unknown) (no (unknown) (unknown) ?7. Cognitive (units ( unknown) date) impairment/dementia unknown) (unknown) (no (unknown) (unknown) ?Patient presented (units (unknown) date) with complaints of unknown) chest pain.? Negative workup for [place]. 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 () (unknown) (no (unknown) (unknown) 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 (09/28/12) (unknown) (no (unknown) (unknown) Assessment + Plan (units (unknown) date) unknown) (unknown) (no (unknown) (unknown) Assessment + Plan (units (unknown) date) narrative: unknown) (unknown) (no (unknown) (unknown) Asthma (units (unkno wn) date) unknown) (unknown) (no (unknown) (unknown) Blood Pressure (units (unknown) date) 145/79 H unknown) (unknown) (no (unknown) (unknown) Breast cancer (units ( unknown) date) (-2001) unknown) (unknown) (no (unknown) (unknown) 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) unknown) (unknown) (no (unknown) (unknown) CV: regular rate (units (unknown) date) and rhythm, no unknown) murmurs (unknown) (no (unknown) (unknown) Calcified nodule (units (unknown) date) unknown) (unknown) (no (unknown) (unknown) 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 (unknown) (no (unknown) (unknown) Cervical cancer, (units (unknown) date) FIGO stage I unknown) (unknown) (no (unknown) (unknown) Cholelithiasis (units (unknown) date) unknown) (unknown) (no (unknown) (unknown) Chronic back pain (units (unknown) date) unknown) (unknown) (no (unknown) (unknown) Critical Care (units ( unknown) date) time: unknown) (unknown) (no (unknown) (unknown) : 1935 (units (unknown) date) Acct:[id number] unknown) (unknown) (no (unknown) (unknown) Date Patient Seen: (units (unknown) date) 03/27/22 unknown) (unknown) (no (unknown) (unknown) Deep Vein (units (unkn own) date) Thrombosis/Pulmonar unknown) y Embolism Present on Admission: No (unknown) (no (unknown) (unknown) Depression (units (unk nown) date) (emotion) unknown) (unknown) (no (unknown) (unknown) Developmental (units ( unknown) date) disorder unknown) (unknown) (no (unknown) (unknown) Diarrhea (units (unkno wn) date) unknown) (unknown) (no (unknown) (unknown) Dispo: likely (units ( unknown) date) needs shelter unknown) care, medically stable for discharge (unknown) (no (unknown) (unknown) Essential (units (unkn own) date) hypertension unknown) (09/28/12) (unknown) (no (unknown) (unknown) Exam (units (unkno wn) date) unknown) (unknown) (no (unknown) (unknown) Exam Narrative: (units (unknown) date) unknown) (unknown) (no (unknown) (unknown) Failure to thrive (units (unknown) date) in adult unknown) (unknown) (no (unknown) (unknown) Family History (units (unknown) date) (Reviewed 03/18/22 unknown) @ 04:05 by JULIETTE Alfred) (unknown) (no (unknown) (unknown) Father (units (unknown) date) Myocardial infarct unknown) (unknown) (no (unknown) (unknown) Fibrocystic breast (units (unknown) date) disease unknown) (unknown) (no (unknown) (unknown) GEN: no acute (units ( unknown) date) distress unknown) (unknown) (no (unknown) (unknown) GERD (units (unkno wn) date) (gastroesophageal unknown) reflux disease) (unknown) (no (unknown) (unknown) History of colon (units (unknown) date) polyps (09/28/12) unknown) (unknown) (no (unknown) (unknown) History of left (units (unknown) date) breast cancer unknown) () (unknown) (no (unknown) (unknown) Hyperlipidemia (units (unknown) date) 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) unknown) (unknown) (no (unknown) (unknown) Interval history: (units (unknown) date) unknown) (unknown) (no (unknown) (unknown) Labs (units (unkno wn) date) unknown) (unknown) (no (unknown) (unknown) [id number] (units (unk nown) date) unknown) (unknown) (no (unknown) (unknown) Measles (units (unkno wn) date) unknown) (unknown) (no (unknown) (unknown) Medical History (units (unknown) date) (Updated 03/24/22 @ unknown) 18:03 by Humza Yip DO) 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 unknown) () (unknown) (no (unknown) (unknown) Mother (units (unknown) date) Maternal unknown) complication related to childbirth (unknown) (no (unknown) (unknown) Narrative (units (unkn own) date) unknown) (unknown) (no (unknown) (unknown) Objective (units (unkn own) date) unknown) (unknown) (no (unknown) (unknown) Osteoarthritis of (units (unknown) date) knees, bilateral unknown) (unknown) (no (unknown) (unknown) Oxygen Delivery (units (unknown) date) Method Room Air unknown) (unknown) (no (unknown) (unknown) Oxygen Delivery (units (unknown) date) Method Room Air unknown) Room Air (unknown) (no (unknown) (unknown) Oxygen Flow Rate (units (unknown) date) 0 unknown) (unknown) (no (unknown) (unknown) Oxygen Flow Rate (units (unknown) date) 0 unknown) (unknown) (no (unknown) (unknown) PFSH (units (unkno wn) date) unknown) 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 unknown) () (unknown) (no (unknown) (unknown) Provider: (units (unkn own) date) Alcon De La Cruz MD unknown) (unknown) (no (unknown) (unknown) Pulse Oximetry 98 (units (unknown) date) 99 unknown) (unknown) (no (unknown) (unknown) Pulse Rate 91 H (units (unknown) date) unknown) (unknown) (no (unknown) (unknown) Quality (units (unkno wn) date) unknown) (unknown) (no (unknown) (unknown) Respiratory Rate (units (unknown) date) 17 unknown) (unknown) (no (unknown) (unknown) Respiratory: (units (u nknown) date) clear bilaterally unknown) (unknown) (no (unknown) (unknown) Result Diagrams: (units (unknown) date) unknown) (unknown) (no (unknown) (unknown) She was (units (unkno wn) date) complaining of unknown) headache today. 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 (09/28/12) (unknown) (no (unknown) (unknown) Status post (units (un known) date) arthroscopy unknown) (unknown) (no (unknown) (unknown) Status post biopsy (units (unknown) date) (-2014) unknown) (unknown) (no (unknown) (unknown) Status post breast (units (unknown) date) lumpectomy (-2008) unknown) (unknown) (no (unknown) (unknown) Status post (units (un known) date) cholecystectomy unknown) (unknown) (no (unknown) (unknown) 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 (unknown) (no (unknown) (unknown) Status post (units (un known) date) hysterectomy unknown) (-2009) (unknown) (no (unknown) (unknown) Subjective (units (unk nown) date) unknown) (unknown) (no (unknown) (unknown) Surgical History (units (unknown) date) (Reviewed 03/18/22 unknown) @ 04:05 by JULIETTE Alfred) (unknown) (no (unknown) (unknown) 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 unknown) Oral nutritional supplementation as (unknown) (no (unknown) (unknown) [Embedded Image (units (unknown) date) Not Available] unknown) (unknown) (no (unknown) (unknown) alcohol intake: (units (unknown) date) never unknown) (unknown) (no (unknown) (unknown) and calcium for (units (unknown) date) regular unknown) supplementation. (unknown) (no (unknown) (unknown) class 2 (06/05/11) (units (unknown) date) unknown) (unknown) (no (unknown) (unknown) household members: (units (unknown) date) children unknown) (unknown) (no (unknown) (unknown) risk cardiac (units (u nknown) date) stress test. unknown) (unknown) (no (unknown) (unknown) today; this time (units (unknown) date) is exclusive of unknown) procedural time. (unknown) (no (unknown) (unknown) tolerated.? (units (un known) date) Patient eating well unknown) in the hospital. Had multivitamin, vitamin-D Result panel 48 (unknown) (no (unknown) (unknown) (no value) (units (unk nown) date) unknown) (unknown) (no (unknown) (unknown) Date of Service: (units (unknown) date) 03/18/22 unknown) (unknown) (no (unknown) (unknown) (no value) (units (unk nown) date) unknown) (unknown) (no (unknown) (unknown) - (units (unkno wn) date) unknown) (unknown) (no (unknown) (unknown) 03/22/22 05:47 (units (unknown) date) unknown) (unknown) (no (unknown) (unknown) 03/28/22 1256 (units ( unknown) date) unknown) (unknown) (no (unknown) (unknown) [facility] (units (unknown) date) [address] unknown) [place] [address] (unknown) (no (unknown) (unknown) Progress Note (units ( unknown) date) unknown) (unknown) (no (unknown) (unknown) (no value) (units (unk nown) date) unknown) (unknown) (no (unknown) (unknown) hospital.? Had (units (unknown) date) multivitamin, unknown) vitamin-D and calcium for regular (unknown) (no (unknown) (unknown) supplementation. (units (unknown) date) unknown) (unknown) (no (unknown) (unknown) 03/28/22 (units (unkno wn) date) unknown) (unknown) (no (unknown) (unknown) Surrogate decision (units (unknown) date) maker is in unknown) patient?s record [If Yes, STOP here]: Yes (unknown) (no (unknown) (unknown) living (units (unkno wn) date) environment. unknown) (unknown) (no (unknown) (unknown) (12/05/17) (units (unk nown) date) unknown) (unknown) (no (unknown) (unknown) (past 8 hours): (units (unknown) date) unknown) (unknown) (no (unknown) (unknown) * Currently denies (units (unknown) date) unknown) (unknown) (no (unknown) (unknown) * Negative workup (units (unknown) date) for [place]. Low risk unknown) cardiac stress test. (unknown) (no (unknown) (unknown) * Oral nutritional (units (unknown) date) supplementation as unknown) tolerated.? Patient eating well in the (unknown) (no (unknown) (unknown) * Son not (units (unkn own) date) available or unknown) appears to be able to take care of patient (unknown) (no (unknown) (unknown) * continue (units (unk nown) date) mirtazapine unknown) (unknown) (no (unknown) (unknown) * controlled, (units ( unknown) date) continue PPI unknown) (unknown) (no (unknown) (unknown) * follow dietary (units (unknown) date) recs unknown) (unknown) (no (unknown) (unknown) * needs 24/ (units (u nknown) date) supervision unknown) (unknown) (no (unknown) (unknown) * oral (units (unkno wn) date) supplementation unknown) ordered (unknown) (no (unknown) (unknown) * rate (units (unkno wn) date) controlled.? Is on unknown) chronic apixaban. (unknown) (no (unknown) (unknown) * stable, no new (units (unknown) date) complaints unknown) (unknown) (no (unknown) (unknown) * stable, she is (units (unknown) date) euvolemic unknown) (unknown) (no (unknown) (unknown) * weight loss over (units (unknown) date) 3 months unknown) (unknown) (no (unknown) (unknown) 08:00 03/28/22 (units (unknown) date) unknown) (unknown) (no (unknown) (unknown) 09:00 (units (unkno wn) date) unknown) (unknown) (no (unknown) (unknown) 09:25 03/28/22 (units (unknown) date) unknown) (unknown) (no (unknown) (unknown) 1. Chest pain (units ( unknown) date) unknown) (unknown) (no (unknown) (unknown) 11:59 (units (unkno wn) date) unknown) (unknown) (no (unknown) (unknown) 2. 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 Chronic GERD (units (unknown) date) unknown) (unknown) (no (unknown) (unknown) 5. CHF (units (unkno wn) date) unknown) (unknown) (no (unknown) (unknown) 8. Acute severe (units (unknown) date) protein calorie unknown) malnutrition (unknown) (no (unknown) (unknown) 9. Depression (units ( unknown) date) unknown) (unknown) (no (unknown) (unknown) ?6. Psychosocial (units (unknown) date) issues / caregiving unknown) issues (unknown) (no (unknown) (unknown) ?7. Cognitive (units ( unknown) date) impairment/dementia unknown) (unknown) (no (unknown) (unknown) Abd: soft, (units (unk nown) date) non-tender, unknown) normoactive BTs (unknown) (no (unknown) (unknown) Abdominal pain (units (unknown) date) unknown) (unknown) (no (unknown) (unknown) Acute pancreatitis (units (unknown) date) unknown) (unknown) (no (unknown) (unknown) Age/Sex: 86 / F (units (unknown) date) unknown) (unknown) (no (unknown) (unknown) Anesthesia (units (unk nown) date) unknown) (unknown) (no (unknown) (unknown) Anticoagulated (units (unknown) date) unknown) (unknown) (no (unknown) (unknown) Anxiety (units (unkno wn) date) unknown) 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 () (unknown) (no (unknown) (unknown) 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 (09/28/12) (unknown) (no (unknown) (unknown) Assessment + Plan (units (unknown) date) unknown) (unknown) (no (unknown) (unknown) Assessment + Plan (units (unknown) date) narrative: unknown) (unknown) (no (unknown) (unknown) Asthma (units (unkno wn) date) unknown) (unknown) (no (unknown) (unknown) Blood Pressure (units (unknown) date) 112/66 unknown) (unknown) (no (unknown) (unknown) Blood Pressure (units (unknown) date) 151/77 H 151/77 H unknown) (unknown) (no (unknown) (unknown) Breast cancer (units ( unknown) date) (-2001) unknown) (unknown) (no (unknown) (unknown) 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) unknown) (unknown) (no (unknown) (unknown) COVID-19 (units (unkno wn) date) unknown) (unknown) (no (unknown) (unknown) COVID-19 status: (units (unknown) date) Negative unknown) (unknown) (no (unknown) (unknown) CV: RRR, no murmur (units (unknown) date) or rubs unknown) (unknown) (no (unknown) (unknown) Calcified nodule (units (unknown) date) unknown) (unknown) (no (unknown) (unknown) Jackie Prather (units (unknown) date) is an 86-year-old unknown) female admitted by wa on March 18 one month (unknown) (no (unknown) (unknown) Jackie Prather is (units (unknown) date) currently awaiting unknown) guardianship eventual placement to a safe (unknown) (no (unknown) (unknown) 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 (unknown) (no (unknown) (unknown) Cervical cancer, (units (unknown) date) FIGO stage I unknown) (unknown) (no (unknown) (unknown) Cholelithiasis (units (unknown) date) unknown) (unknown) (no (unknown) (unknown) Chronic back pain (units (unknown) date) unknown) (unknown) (no (unknown) (unknown) Critical Care (units ( unknown) date) time: unknown) (unknown) (no (unknown) (unknown) : 1935 (units (unknown) date) Acct:[id number] unknown) (unknown) (no (unknown) (unknown) Date Patient Seen: (units (unknown) date) 03/28/22 unknown) (unknown) (no (unknown) (unknown) Deep Vein (units (unkn own) date) Thrombosis/Pulmonar unknown) y Embolism Present on Admission: No (unknown) (no (unknown) (unknown) Depression (units (unk nown) date) (emotion) unknown) (unknown) (no (unknown) (unknown) Developmental (units ( unknown) date) disorder unknown) (unknown) (no (unknown) (unknown) Diarrhea (units (unkno wn) date) unknown) (unknown) (no (unknown) (unknown) Essential (units (unkn own) date) hypertension unknown) (09/28/12) (unknown) (no (unknown) (unknown) Exam (units (unkno wn) date) unknown) (unknown) (no (unknown) (unknown) Exam Narrative: (units (unknown) date) unknown) (unknown) (no (unknown) (unknown) Extremities: moves (units (unknown) date) all 4 extremities, unknown) is ambulatory, negative Chelsy?s sign (unknown) (no (unknown) (unknown) Failure to thrive (units (unknown) date) in adult unknown) (unknown) (no (unknown) (unknown) Family History (units (unknown) date) (Reviewed 03/28/22 unknown) @ 12:48 by JULIETTE Alfred) (unknown) (no (unknown) (unknown) Father (units (unknown) date) Myocardial infarct unknown) (unknown) (no (unknown) (unknown) Fibrocystic breast (units (unknown) date) disease unknown) (unknown) (no (unknown) (unknown) GERD (units (unkno wn) date) (gastroesophageal unknown) reflux disease) (unknown) (no (unknown) (unknown) Gen: Alert, (units (un known) date) oriented, cachectic unknown) appearing 86 y.o. female, NAD (unknown) (no (unknown) (unknown) HEENT: (units (unkno wn) date) normocephalic, unknown) atraumatic, conjunctiva clear, sclera non-icteric, oral (unknown) (no (unknown) (unknown) History of colon (units (unknown) date) polyps (09/28/12) unknown) (unknown) (no (unknown) (unknown) History of left (units (unknown) date) breast cancer unknown) (-2008) (unknown) (no (unknown) (unknown) Hyperlipidemia (units (unknown) date) unknown) (unknown) (no (unknown) (unknown) I confirm the (units (u nknown) date) patient?s Advance unknown) Care Plan is present, Code status is documented, (unknown) (no (unknown) (unknown) I spent a total of (units (unknown) date) [] minutes of unknown) critical care time on this patient's care 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) unknown) (unknown) (no (unknown) (unknown) Interval history: (units (unknown) date) unknown) (unknown) (no (unknown) (unknown) Labs (units (unkno wn) date) unknown) (unknown) (no (unknown) (unknown) [id number] (units (unk nown) date) unknown) (unknown) (no (unknown) (unknown) MIPS - Admit (units (u nknown) date) unknown) (unknown) (no (unknown) (unknown) MIPS - DC (units (unkn own) date) unknown) (unknown) (no (unknown) (unknown) Measles (units (unkno wn) date) unknown) (unknown) (no (unknown) (unknown) Medical History (units (unknown) date) (Reviewed 03/28/22 unknown) @ 12:48 by JULIETTE Alfred) 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 Speech clear (unknown) (no (unknown) (unknown) Objective (units (unkn own) date) unknown) (unknown) (no (unknown) (unknown) Osteoarthritis of (units (unknown) date) knees, bilateral unknown) (unknown) (no (unknown) (unknown) Oxygen Delivery (units (unknown) date) Method Room Air unknown) (unknown) (no (unknown) (unknown) Oxygen Delivery (units (unknown) date) Method unknown) (unknown) (no (unknown) (unknown) Oxygen Delivery (units (unknown) date) Method Room Air unknown) (unknown) (no (unknown) (unknown) Oxygen Flow Rate (units (unknown) date) 0 unknown) (unknown) (no (unknown) (unknown) Oxygen Flow Rate (units (unknown) date) 0 0 unknown) (unknown) (no (unknown) (unknown) Oxygen Flow Rate 0 (units (unknown) date) unknown) (unknown) (no (unknown) (unknown) PFSH (units (unkno wn) date) unknown) 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 (unknown) (no (unknown) (unknown) Pulse Oximetry 92 (units (unknown) date) 92 unknown) (unknown) (no (unknown) (unknown) Pulse Oximetry 97 (units (unknown) date) unknown) (unknown) (no (unknown) (unknown) Pulse Rate 85 (units (unknown) date) unknown) (unknown) (no (unknown) (unknown) Pulse Rate 58 L (units (unknown) date) unknown) (unknown) (no (unknown) (unknown) Quality (units (unkno wn) date) unknown) (unknown) (no (unknown) (unknown) Resp: Lungs sounds (units (unknown) date) are diminished but unknown) clear, non-labored breathing (unknown) (no (unknown) (unknown) Respiratory Rate (units (unknown) date) 16 unknown) (unknown) (no (unknown) (unknown) Respiratory Rate (units (unknown) date) 16 unknown) (unknown) (no (unknown) (unknown) Result Diagrams: (units (unknown) date) unknown) (unknown) (no (unknown) (unknown) Result date/Date (units (unknown) date) tested (Pos, unknown) Neg/Pending): 03/17/22 (unknown) (no (unknown) (unknown) She asks where her (units (unknown) date) son is and where unknown) her belongings are that were in the (unknown) (no (unknown) (unknown) She states that (units (unknown) date) she does not really unknown) care for the food here because she does not (unknown) (no (unknown) (unknown) Signed (units (unkno wn) date) By:<Electronically unknown) signed by Eliana Barry> (unknown) (no (unknown) (unknown) Sister (units (unknown) date) Traumatic unknown) amputation (unknown) (no (unknown) (unknown) Skin: no lesions (units (unknown) date) or rashes, dry and unknown) intact (unknown) (no (unknown) (unknown) Smoking Status: (units (unknown) date) Never smoker unknown) (unknown) (no (unknown) (unknown) Social History (units (unknown) date) (Reviewed 03/28/22 unknown) @ 12:48 by JULIETTE Alfred) (unknown) (no (unknown) (unknown) Speech and (units (unk nown) date) language unknown) 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 (09/28/12) (unknown) (no (unknown) (unknown) Status post (units (un known) date) arthroscopy unknown) (unknown) (no (unknown) (unknown) Status post biopsy (units (unknown) date) (-2014) unknown) (unknown) (no (unknown) (unknown) Status post breast (units (unknown) date) lumpectomy (-2008) unknown) (unknown) (no (unknown) (unknown) Status post (units (un known) date) cholecystectomy unknown) (unknown) (no (unknown) (unknown) 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 (unknown) (no (unknown) (unknown) Status post (units (un known) date) hysterectomy unknown) (-2009) (unknown) (no (unknown) (unknown) Subjective (units (unk nown) date) unknown) (unknown) (no (unknown) (unknown) Surgical History (units (unknown) date) (Reviewed 03/28/22 unknown) @ 12:48 by JULIETTE Alfred) (unknown) (no (unknown) (unknown) 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, NYHA (unknown) (no (unknown) (unknown) Temperature 96.9 (units (unknown) date) F L unknown) (unknown) (no (unknown) (unknown) Temperature 97.1 F (units (unknown) date) L unknown) (unknown) (no (unknown) (unknown) The patient has (units (unknown) date) current or prior unknown) documentation of left ventricular ejection (unknown) (no (unknown) (unknown) Time Patient Seen: (units (unknown) date) 08:30 unknown) (unknown) (no (unknown) (unknown) Time Spent With (units (unknown) date) Patient unknown) (unknown) (no (unknown) (unknown) VTE (units (unkno wn) date) unknown) (unknown) (no (unknown) (unknown) Vital Signs (units (un known) date) unknown) (unknown) (no (unknown) (unknown) [Embedded Image (units (unknown) date) Not Available] unknown) (unknown) (no (unknown) (unknown) admitted for chest (units (unknown) date) pain found to be unknown) reproducible and found to be noncardiac. (unknown) (no (unknown) (unknown) after she had been (units (unknown) date) admitted and unknown) discharged for failure to thrive. Patient was (unknown) (no (unknown) (unknown) alcohol intake: (units (unknown) date) never unknown) (unknown) (no (unknown) (unknown) and coherent. (units ( unknown) date) unknown) (unknown) (no (unknown) (unknown) apartment she was (units (unknown) date) living in. She unknown) denies currently having chest pain, nausea (unknown) (no (unknown) (unknown) class 2 (06/05/11) (units (unknown) date) unknown) (unknown) (no (unknown) (unknown) fraction (LVEF) (units (unknown) date) less than 40%, or unknown) moderate or severely depressed left (unknown) (no (unknown) (unknown) get her usual (units (u nknown) date) carbohydrates that unknown) she likes to eat. Patient is currently pending (unknown) (no (unknown) (unknown) guardianship as (units (unknown) date) her family appears unknown) to have abandoned their responsibility in (unknown) (no (unknown) (unknown) have a slums score (units (unknown) date) of 13 of 20, was unknown) evaluated by Psychiatry who rendered an (unknown) (no (unknown) (unknown) household members: (units (unknown) date) children unknown) (unknown) (no (unknown) (unknown) mucosa pink and (units (unknown) date) moist unknown) (unknown) (no (unknown) (unknown) opinion that she (units (unknown) date) likely did not have unknown) decisional capacity but that they did want (unknown) (no (unknown) (unknown) taking care of her (units (unknown) date) and she does not unknown) really have a place to go. She was found to (unknown) (no (unknown) (unknown) to weigh in on (units (unknown) date) whether she was unknown) legally capable of making her own decisions. (unknown) (no (unknown) (unknown) today; this time (units (unknown) date) is exclusive of unknown) procedural time. (unknown) (no (unknown) (unknown) ventricular (units (un known) date) systolic function.: unknown) No (unknown) (no (unknown) (unknown) vomiting, (units (unkn own) date) shortness of unknown) breath, abdominal pain, dysuria, diarrhea constipation. Result panel 49 (unknown) (no (unknown) (unknown) (no value) (units (unk nown) date) unknown) (unknown) (no (unknown) (unknown) (no value) (units (unk nown) date) unknown) (unknown) (no (unknown) (unknown) Date of Service: (units (unknown) date) 03/18/22 unknown) (unknown) (no (unknown) (unknown) (no value) (units (unk nown) date) unknown) (unknown) (no (unknown) (unknown) - (units (unkno wn) date) unknown) (unknown) (no (unknown) (unknown) 03/22/22 05:47 (units (unknown) date) unknown) (unknown) (no (unknown) (unknown) 03/29/22 1356 (units ( unknown) date) unknown) (unknown) (no (unknown) (unknown) [facility] (units (unknown) date) [address] unknown) [place] [address] (unknown) (no (unknown) (unknown) Progress Note (units ( unknown) date) unknown) (unknown) (no (unknown) (unknown) (no value) (units (unk nown) date) unknown) (unknown) (no (unknown) (unknown) 03/29/22 (units (unkno wn) date) unknown) (unknown) (no (unknown) (unknown) (12/05/17) (units (unk nown) date) unknown) (unknown) (no (unknown) (unknown) (past 8 hours): (units (unknown) date) unknown) (unknown) (no (unknown) (unknown) 06:40 03/29/22 (units (unknown) date) unknown) (unknown) (no (unknown) (unknown) 11:11 (units (unkno wn) date) unknown) (unknown) (no (unknown) (unknown) 12:00 (units (unkno wn) date) unknown) (unknown) (no (unknown) (unknown) . This is (units (unknown) date) consistent with unknown) dementia. She will need 24/ supervision. She (unknown) (no (unknown) (unknown) 2. 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 Chronic GERD (units (unknown) date) unknown) (unknown) (no (unknown) (unknown) 5. CHF (units (unkno wn) date) unknown) (unknown) (no (unknown) (unknown) 6. Acute severe (units (unknown) date) protein calorie unknown) malnutrition (unknown) (no (unknown) (unknown) 86-year-old female (units (unknown) date) with known coronary unknown) artery disease, permanent atrial (unknown) (no (unknown) (unknown) ? Appears (units (unkn own) date) euvolemic unknown) presently. (unknown) (no (unknown) (unknown) ? Remains rate (units (unknown) date) controlled.? Is on unknown) chronic apixaban. (unknown) (no (unknown) (unknown) ? Suspect this (units (unknown) date) could be unknown) contributing to her chest pain.? It may be she has (unknown) (no (unknown) (unknown) ? Uncertain as to (units (unknown) date) her previous unknown) cardiac interventions.? Has a sternal scar from (unknown) (no (unknown) (unknown) ?1. Dementia (units (u nknown) date) unknown) (unknown) (no (unknown) (unknown) ?Code status (units (u nknown) date) unknown) (unknown) (no (unknown) (unknown) ?Disposition (units (u nknown) date) unknown) (unknown) (no (unknown) (unknown) ?Prophylaxis (units (u nknown) date) unknown) (unknown) (no (unknown) (unknown) ABD: Soft, mildly (units (unknown) date) diffusely tender, unknown) ND, BT present in all 4 quadrants, no (unknown) (no (unknown) (unknown) Abdominal pain (units (unknown) date) unknown) (unknown) (no (unknown) (unknown) Acute pancreatitis (units (unknown) date) unknown) (unknown) (no (unknown) (unknown) Age/Sex: 86 / F (units (unknown) date) unknown) (unknown) (no (unknown) (unknown) Anesthesia (units (unk nown) date) unknown) (unknown) (no (unknown) (unknown) Anticoagulated (units (unknown) date) unknown) (unknown) (no (unknown) (unknown) Anxiety (units (unkno wn) date) unknown) 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 () (unknown) (no (unknown) (unknown) 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 (09/28/12) (unknown) (no (unknown) (unknown) Assessment + Plan (units (unknown) date) unknown) (unknown) (no (unknown) (unknown) Assessment + Plan (units (unknown) date) narrative: unknown) (unknown) (no (unknown) (unknown) Asthma (units (unkno wn) date) unknown) (unknown) (no (unknown) (unknown) Await guardianship (units (unknown) date) and placement unknown) (unknown) (no (unknown) (unknown) Blood Pressure (units (unknown) date) unknown) (unknown) (no (unknown) (unknown) Blood Pressure (units (unknown) date) 107/63 138/74 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 (unknown) (no (unknown) (unknown) Cervical cancer, (units (unknown) date) FIGO stage I unknown) (unknown) (no (unknown) (unknown) Chest pain, ruled (units (unknown) date) out for myocardial unknown) infarction, low risk stress test (unknown) (no (unknown) (unknown) Cholelithiasis (units (unknown) date) unknown) (unknown) (no (unknown) (unknown) Chronic back pain (units (unknown) date) unknown) (unknown) (no (unknown) (unknown) Critical Care (units ( unknown) date) time: unknown) (unknown) (no (unknown) (unknown) : 1935 (units (unknown) date) Acct:[id number] unknown) (unknown) (no (unknown) (unknown) Date Patient Seen: (units (unknown) date) 03/29/22 unknown) (unknown) (no (unknown) (unknown) Deep Vein (units (unkn own) date) Thrombosis/Pulmonar unknown) y Embolism Present on Admission: No (unknown) (no (unknown) (unknown) Depression (units (unk nown) date) (emotion) unknown) (unknown) (no (unknown) (unknown) Developmental (units ( unknown) date) disorder unknown) (unknown) (no (unknown) (unknown) Diarrhea (units (unkno wn) date) unknown) (unknown) (no (unknown) (unknown) EXTR: warm, well (units (unknown) date) perfused, no C/C/E unknown) (unknown) (no (unknown) (unknown) Essential (units (unkn own) date) hypertension unknown) (09/28/12) (unknown) (no (unknown) (unknown) Exam (units (unkno wn) date) unknown) (unknown) (no (unknown) (unknown) Exam Narrative: (units (unknown) date) unknown) (unknown) (no (unknown) (unknown) Failure to thrive (units (unknown) date) in adult unknown) (unknown) (no (unknown) (unknown) Family History (units (unknown) date) (Reviewed 03/28/22 unknown) @ 12:48 by JULIETTE Alfred) (unknown) (no (unknown) (unknown) Father (units (unknown) date) Myocardial infarct unknown) (unknown) (no (unknown) (unknown) Fibrocystic breast (units (unknown) date) disease unknown) (unknown) (no (unknown) (unknown) Full (units (unkno wn) date) unknown) (unknown) (no (unknown) (unknown) GEN: Drowsy (units (u nknown) date) elderly female, unknown) lying in the hospital room on bed, NAD (unknown) (no (unknown) (unknown) GERD (units (unkno wn) date) (gastroesophageal unknown) reflux disease) (unknown) (no (unknown) (unknown) HEENT:NC, Face (units (unknown) date) symmetric unknown) (unknown) (no (unknown) (unknown) History of colon (units (unknown) date) polyps (09/28/12) unknown) (unknown) (no (unknown) (unknown) History of left (units (unknown) date) breast cancer unknown) (-2008) (unknown) (no (unknown) (unknown) Hyperlipidemia (units (unknown) date) 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) unknown) (unknown) (no (unknown) (unknown) Interval history: (units (unknown) date) unknown) (unknown) (no (unknown) (unknown) Labs (units (unkno wn) date) unknown) (unknown) (no (unknown) (unknown) [id number] (units (unk nown) date) unknown) (unknown) (no (unknown) (unknown) Measles (units (unkno wn) date) unknown) (unknown) (no (unknown) (unknown) Medical History (units (unknown) date) (Reviewed 03/28/22 unknown) @ 12:48 by JULIETTE Alfred) 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 unknown) () (unknown) (no (unknown) (unknown) Mother (units (unknown) date) Maternal unknown) complication related to childbirth (unknown) (no (unknown) (unknown) NEURO: Nonfocal (units (unknown) date) unknown) (unknown) (no (unknown) (unknown) Narrative (units (unkn own) date) unknown) (unknown) (no (unknown) (unknown) Objective (units (unkn own) date) unknown) (unknown) (no (unknown) (unknown) On apixaban (units (un known) date) unknown) (unknown) (no (unknown) (unknown) Osteoarthritis of (units (unknown) date) knees, bilateral unknown) (unknown) (no (unknown) (unknown) Oxygen Delivery (units (unknown) date) Method Room Air unknown) (unknown) (no (unknown) (unknown) Oxygen Delivery (units (unknown) date) Method Room Air unknown) (unknown) (no (unknown) (unknown) Oxygen Delivery (units (unknown) date) Method Room Air unknown) (unknown) (no (unknown) (unknown) Oxygen Flow Rate (units (unknown) date) 0 unknown) (unknown) (no (unknown) (unknown) Oxygen Flow Rate (units (unknown) date) unknown) (unknown) (no (unknown) (unknown) Oxygen Flow Rate (units (unknown) date) 0 0 unknown) (unknown) (no (unknown) (unknown) PFSH (units (unkno wn) date) unknown) (unknown) (no (unknown) (unknown) Patient has had a (units (unknown) date) 7.5% weight loss unknown) over the last 3 months.? Oral nutritional (unknown) (no (unknown) (unknown) Patient was asleep (units (unknown) date) on my arrival. She unknown) briefly woke up and denied any (unknown) (no (unknown) (unknown) Patient will (units (u nknown) date) benefit from a unknown) memory care unit placement. 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 This is now being pursued. (unknown) (no (unknown) (unknown) Pulse Oximetry (units (unknown) date) unknown) (unknown) (no (unknown) (unknown) Pulse Oximetry 96 (units (unknown) date) 96 96 unknown) (unknown) (no (unknown) (unknown) Pulse Rate (units (unk nown) date) unknown) (unknown) (no (unknown) (unknown) Pulse Rate 76 78 (units (unknown) date) unknown) (unknown) (no (unknown) (unknown) Quality (units (unkno wn) date) unknown) (unknown) (no (unknown) (unknown) Respiratory Rate (units (unknown) date) unknown) (unknown) (no (unknown) (unknown) Respiratory Rate (units (unknown) date) 16 16 unknown) (unknown) (no (unknown) (unknown) Result Diagrams: (units (unknown) date) unknown) (unknown) (no (unknown) (unknown) Result issues: (units (unknown) date) unknown) (unknown) (no (unknown) (unknown) SKIN: warm and (units (unknown) date) dry, no rash unknown) (unknown) (no (unknown) (unknown) Signed (units (unkno wn) date) By:<Electronically unknown) signed by Linda David MD> (unknown) (no (unknown) (unknown) Sister (units (unknown) date) Traumatic unknown) amputation (unknown) (no (unknown) (unknown) Slums assessment (units (unknown) date) was performed unknown) earlier this hospitalization with a score of (unknown) (no (unknown) (unknown) Smoking Status: (units (unknown) date) Never smoker unknown) (unknown) (no (unknown) (unknown) Social History (units (unknown) date) (Reviewed 03/28/22 unknown) @ 12:48 by JULIETTE Alfred) (unknown) (no (unknown) (unknown) Speech and (units (unk nown) date) language unknown) 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 (09/28/12) (unknown) (no (unknown) (unknown) Status post (units (un known) date) arthroscopy unknown) (unknown) (no (unknown) (unknown) Status post biopsy (units (unknown) date) (-2014) unknown) (unknown) (no (unknown) (unknown) Status post breast (units (unknown) date) lumpectomy (-2008) unknown) (unknown) (no (unknown) (unknown) Status post (units (un known) date) cholecystectomy unknown) (unknown) (no (unknown) (unknown) 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 (unknown) (no (unknown) (unknown) Status post (units (un known) date) hysterectomy unknown) (-2009) (unknown) (no (unknown) (unknown) Subjective (units (unk nown) date) unknown) (unknown) (no (unknown) (unknown) Surgical History (units (unknown) date) (Reviewed 03/28/22 unknown) @ 12:48 by JULIETTE Alfred) (unknown) (no (unknown) (unknown) 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 APS unknown) referral was made March 18 in light of ongoing (unknown) (no (unknown) (unknown) admission. (units (unk nown) date) unknown) (unknown) (no (unknown) (unknown) admitted with (units ( unknown) date) chest pain.? unknown) Patient underwent stress testing and had a low risk (unknown) (no (unknown) (unknown) alcohol intake: (units (unknown) date) never unknown) (unknown) (no (unknown) (unknown) caregiving (units (unkn own) date) concerns.? 1 APS unknown) attempted to make contact with the patient's son, it (unknown) (no (unknown) (unknown) class 2 (06/05/11) (units (unknown) date) unknown) (unknown) (no (unknown) (unknown) complaints. (units (un known) date) unknown) (unknown) (no (unknown) (unknown) difficult to (units (u nknown) date) contact and unknown) apparently they have been evicted from apartment. (unknown) (no (unknown) (unknown) does not have (units ( unknown) date) capacity to make unknown) her own healthcare decisions. 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 No symptoms reported (unknown) (no (unknown) (unknown) fibrillation on (units (unknown) date) apixaban, history unknown) of congestive heart failure ( unknown if (unknown) (no (unknown) (unknown) household members: (units (unknown) date) children unknown) (unknown) (no (unknown) (unknown) organomegaly or (units (unknown) date) masses unknown) (unknown) (no (unknown) (unknown) prior intervention (units (unknown) date) (pt does not recall unknown) what was done).? Low risk nuc this (unknown) (no (unknown) (unknown) reported the (units (u nknown) date) patient has signed unknown) him out of the [facility] with a machete, looked at (unknown) (no (unknown) (unknown) scan.? She was (units (unknown) date) approved for unknown) discharge on March 18, but staff could not get her (unknown) (no (unknown) (unknown) son on the phone (units (unknown) date) who is her POA.? unknown) She remained in the hospital pending his (unknown) (no (unknown) (unknown) supplementation as (units (unknown) date) tolerated. unknown) Continue multivitamin (unknown) (no (unknown) (unknown) systolic or (units (un known) date) diastolic), unknown) hypertension, hyperlipidemia, and prior stroke who was (unknown) (no (unknown) (unknown) them, and returned (units (unknown) date) into the [facility]. unknown) Patient has since been evaluated by (unknown) (no (unknown) (unknown) today. (units (unkno wn) date) unknown) (unknown) (no (unknown) (unknown) today; this time (units (unknown) date) is exclusive of unknown) procedural time. (unknown) (no (unknown) (unknown) was discovered (units (unknown) date) that they had unknown) evidently been evicted. Additionally, they Result panel 50 (unknown) (no date) (unknown) (unknown) 0 /uL (unkn own) (unknown) (no date) (unknown) (unknown) 0.5 % (unkn own) (unknown) (no date) (unknown) (unknown) 1.7 % (unkn own) (unknown) (no date) (unknown) (unknown) 10.6 g/dL (unkn own) (unknown) (no date) (unknown) (unknown) 100 /uL (unkn own) (unknown) (no date) (unknown) (unknown) 14.9 % (unkn own) (unknown) (no date) (unknown) (unknown) 2100 /uL (unkn own) (unknown) (no date) (unknown) (unknown) 243 X10 3/uL (unkn own) (unknown) (no date) (unknown) (unknown) 3.53 X10 6/uL (unkn own) (unknown) (no date) (unknown) (unknown) 30.1 PG (unkn own) (unknown) (no date) (unknown) (unknown) 30.2 % (unkn own) (unknown) (no date) (unknown) (unknown) 31.9 % (unkn own) (unknown) (no date) (unknown) (unknown) 33.4 % (unkn own) (unknown) (no date) (unknown) (unknown) 4000 /uL (unkn own) (unknown) (no date) (unknown) (unknown) 57.7 % (unkn own) (unknown) (no date) (unknown) (unknown) 6.9 X10 3/uL (unkn own) (unknown) (no date) (unknown) (unknown) 700 /uL (unkn own) (unknown) (no date) (unknown) (unknown) 9.9 % (unkn own) (unknown) (no date) (unknown) (unknown) 90.4 fL (unkn own) Result panel 51 (unknown) (no date) (unknown) (unknown) 1.08 mg/dL (unkn own) (unknown) (no date) (unknown) (unknown) 134 mmol/L (unkn own) (unknown) (no date) (unknown) (unknown) 29 mmol/L (unkn own) (unknown) (no date) (unknown) (unknown) 5.1 mmol/L (unkn own) (unknown) (no date) (unknown) (unknown) 51 mL/min (unkn own) (unknown) (no date) (unknown) (unknown) 53.7 (units unknown) (unknown) (unknown) (no date) (unknown) (unknown) 58 mg/dL (unkn own) (unknown) (no date) (unknown) (unknown) 8.6 mg/dL (unkn own) (unknown) (no date) (unknown) (unknown) 89 mg/dL (unkn own) (unknown) (no date) (unknown) (unknown) 98 mmol/L (unkn own) Result panel 52 (unknown) (no (unknown) (unknown) (no value) (units (unk nown) date) unknown) (unknown) (no (unknown) (unknown) (no value) (units (unk nown) date) unknown) (unknown) (no (unknown) (unknown) Date of Service: (units (unknown) date) 03/18/22 unknown) (unknown) (no (unknown) (unknown) (no value) (units (unk nown) date) unknown) (unknown) (no (unknown) (unknown) - (units (unkno wn) date) unknown) (unknown) (no (unknown) (unknown) 03/30/22 05:15 (units (unknown) date) unknown) (unknown) (no (unknown) (unknown) [facility] (units (unknown) date) [address] unknown) [place] [address] (unknown) (no (unknown) (unknown) Laboratory Results (units (unknown) date) - last 24 hr unknown) (unknown) (no (unknown) (unknown) Progress Note (units ( unknown) date) unknown) (unknown) (no (unknown) (unknown) (no value) (units (unk nown) date) unknown) (unknown) (no (unknown) (unknown) 05:15 05:15 (units (un known) date) unknown) (unknown) (no (unknown) (unknown) 03/30/22 03/30/22 (units (unknown) date) unknown) (unknown) (no (unknown) (unknown) 03/30/22 (units (unkno wn) date) unknown) (unknown) (no (unknown) (unknown) (12/05/17) (units (unk nown) date) unknown) (unknown) (no (unknown) (unknown) (past 8 hours): (units (unknown) date) unknown) (unknown) (no (unknown) (unknown) 00:00 03/30/22 (units (unknown) date) unknown) (unknown) (no (unknown) (unknown) 05:23 (units (unkno wn) date) unknown) (unknown) (no (unknown) (unknown) . This is (units (unknown) date) consistent with unknown) dementia. She will need 18/04 supervision. She (unknown) (no (unknown) (unknown) 2. 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 Chronic GERD (units (unknown) date) unknown) (unknown) (no (unknown) (unknown) 5. CHF (units (unkno wn) date) unknown) (unknown) (no (unknown) (unknown) 6. Acute severe (units (unknown) date) protein calorie unknown) malnutrition (unknown) (no (unknown) (unknown) 86-year-old female (units (unknown) date) with known coronary unknown) artery disease, permanent atrial (unknown) (no (unknown) (unknown) ? Appears (units (unkn own) date) euvolemic unknown) presently. (unknown) (no (unknown) (unknown) ? Remains rate (units (unknown) date) controlled.? Is on unknown) chronic apixaban. (unknown) (no (unknown) (unknown) ? Suspect this (units (unknown) date) could be unknown) contributing to her chest pain.? It may be she has (unknown) (no (unknown) (unknown) ? Uncertain as to (units (unknown) date) her previous unknown) cardiac interventions.? Has a sternal scar from (unknown) (no (unknown) (unknown) ?1. Dementia (units (u nknown) date) unknown) (unknown) (no (unknown) (unknown) ?Code status (units (u nknown) date) unknown) (unknown) (no (unknown) (unknown) ?Disposition (units (u nknown) date) unknown) (unknown) (no (unknown) (unknown) ?Prophylaxis (units (u nknown) date) unknown) (unknown) (no (unknown) (unknown) ABD: Soft, mildly (units (unknown) date) diffusely tender, unknown) ND, BT present in all 4 quadrants, no (unknown) (no (unknown) (unknown) Abdominal pain (units (unknown) date) unknown) (unknown) (no (unknown) (unknown) Acute pancreatitis (units (unknown) date) unknown) (unknown) (no (unknown) (unknown) Age/Sex: 86 / F (units (unknown) date) unknown) (unknown) (no (unknown) (unknown) Anesthesia (units (unk nown) date) unknown) (unknown) (no (unknown) (unknown) Anticoagulated (units (unknown) date) unknown) (unknown) (no (unknown) (unknown) Anxiety (units (unkno wn) date) unknown) 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 () (unknown) (no (unknown) (unknown) 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 (09/28/12) (unknown) (no (unknown) (unknown) Assessment + Plan (units (unknown) date) unknown) (unknown) (no (unknown) (unknown) Assessment + Plan (units (unknown) date) narrative: unknown) (unknown) (no (unknown) (unknown) Asthma (units (unkno wn) date) unknown) (unknown) (no (unknown) (unknown) Await guardianship (units (unknown) date) and placement unknown) (unknown) (no (unknown) (unknown) BUN 58 H (units (unk nown) date) unknown) (unknown) (no (unknown) (unknown) BUN/Creatinine (units (unknown) date) Ratio 53.7 H unknown) (unknown) (no (unknown) (unknown) Baso # (Auto) 0 (units (unknown) date) unknown) (unknown) (no (unknown) (unknown) Baso % (Auto) 0.5 (units (unknown) date) unknown) (unknown) (no (unknown) (unknown) Blood Pressure (units (unknown) date) unknown) (unknown) (no (unknown) (unknown) Blood Pressure (units (unknown) date) 122/55 L 118/68 unknown) (unknown) (no (unknown) (unknown) Breast cancer (units ( unknown) date) (-2001) unknown) (unknown) (no (unknown) (unknown) 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) unknown) (unknown) (no (unknown) (unknown) CHEST: Respiratory (units (unknown) date) excursions unknown) symmetric, CTAB (unknown) (no (unknown) (unknown) CV: RRR, no M/R/G (units (unknown) date) unknown) (unknown) (no (unknown) (unknown) Calcified nodule (units (unknown) date) unknown) (unknown) (no (unknown) (unknown) Calcium 8.6 (units ( unknown) date) unknown) (unknown) (no (unknown) (unknown) Carbon Dioxide (units (unknown) date) 29 unknown) (unknown) (no (unknown) (unknown) 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 (unknown) (no (unknown) (unknown) Cervical cancer, (units (unknown) date) FIGO stage I unknown) (unknown) (no (unknown) (unknown) Chest pain, ruled (units (unknown) date) out for myocardial unknown) infarction, low risk stress test (unknown) (no (unknown) (unknown) Chloride 98 (units ( unknown) date) unknown) (unknown) (no (unknown) (unknown) Cholelithiasis (units (unknown) date) unknown) (unknown) (no (unknown) (unknown) Chronic back pain (units (unknown) date) unknown) (unknown) (no (unknown) (unknown) Creatinine 1.08 (units (unknown) date) H unknown) (unknown) (no (unknown) (unknown) Critical Care (units ( unknown) date) time: unknown) (unknown) (no (unknown) (unknown) : 1935 (units (unknown) date) Acct:[id number] unknown) (unknown) (no (unknown) (unknown) Date Patient Seen: (units (unknown) date) 03/29/22 unknown) (unknown) (no (unknown) (unknown) Deep Vein (units (unkn own) date) Thrombosis/Pulmonar unknown) y Embolism Present on Admission: No (unknown) (no (unknown) (unknown) Depression (units (unk nown) date) (emotion) unknown) (unknown) (no (unknown) (unknown) Developmental (units ( unknown) date) disorder unknown) (unknown) (no (unknown) (unknown) Diarrhea (units (unkno wn) date) unknown) (unknown) (no (unknown) (unknown) EXTR: warm, well (units (unknown) date) perfused, no C/C/E unknown) (unknown) (no (unknown) (unknown) Eos # (Auto) 100 (units (unknown) date) unknown) (unknown) (no (unknown) (unknown) Eos % (Auto) 1.7 (units (unknown) date) L unknown) (unknown) (no (unknown) (unknown) Essential (units (unkn own) date) hypertension unknown) (09/28/12) (unknown) (no (unknown) (unknown) Estimated GFR 51 (units (unknown) date) L unknown) (unknown) (no (unknown) (unknown) Exam (units (unkno wn) date) unknown) (unknown) (no (unknown) (unknown) Exam Narrative: (units (unknown) date) unknown) (unknown) (no (unknown) (unknown) Failure to thrive (units (unknown) date) in adult unknown) (unknown) (no (unknown) (unknown) Family History (units (unknown) date) (Reviewed 03/30/22 unknown) @ 07:25 by Stephane Gonzalez DO) (unknown) (no (unknown) (unknown) Father (units (unknown) date) Myocardial infarct unknown) (unknown) (no (unknown) (unknown) Fibrocystic breast (units (unknown) date) disease unknown) (unknown) (no (unknown) (unknown) Full (units (unkno wn) date) unknown) (unknown) (no (unknown) (unknown) GEN: Drowsy (units (u nknown) date) elderly female, unknown) lying in the hospital room on bed, NAD (unknown) (no (unknown) (unknown) GERD (units (unkno wn) date) (gastroesophageal unknown) reflux disease) (unknown) (no (unknown) (unknown) Glucose 89 (units (u nknown) date) unknown) (unknown) (no (unknown) (unknown) HEENT:NC, Face (units (unknown) date) symmetric unknown) (unknown) (no (unknown) (unknown) Hct 31.9 L (units (un known) date) unknown) (unknown) (no (unknown) (unknown) Hgb 10.6 L (units (un known) date) unknown) (unknown) (no (unknown) (unknown) History of colon (units (unknown) date) polyps (09/28/12) unknown) (unknown) (no (unknown) (unknown) History of left (units (unknown) date) breast cancer unknown) () (unknown) (no (unknown) (unknown) Hyperlipidemia (units (unknown) date) 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) unknown) (unknown) (no (unknown) (unknown) Interval history: (units (unknown) date) unknown) (unknown) (no (unknown) (unknown) Labs (units (unkno wn) date) unknown) (unknown) (no (unknown) (unknown) Labs: (units (unkno wn) date) unknown) (unknown) (no (unknown) (unknown) Lymph # (Auto) (units (unknown) date) 2100 unknown) (unknown) (no (unknown) (unknown) Lymph % (Auto) (units (unknown) date) 30.2 unknown) (unknown) (no (unknown) (unknown) [id number] (units (unk nown) date) unknown) (unknown) (no (unknown) (unknown) MCH 30.1 (units (unkn own) date) unknown) (unknown) (no (unknown) (unknown) MCHC 33.4 (units (unk nown) date) unknown) (unknown) (no (unknown) (unknown) MCV 90.4 (units (unkn own) date) unknown) (unknown) (no (unknown) (unknown) Measles (units (unkno wn) date) unknown) (unknown) (no (unknown) (unknown) Medical History (units (unknown) date) (Reviewed 03/30/22 unknown) @ 07:25 by Stephane Gonzalez DO) 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 unknown) () (unknown) (no (unknown) (unknown) [place] # (Auto) 700 (units (unknown) date) unknown) (unknown) (no (unknown) (unknown) [place] % (Auto) 9.9 (units (unknown) date) unknown) (unknown) (no (unknown) (unknown) Mother (units (unknown) date) Maternal unknown) complication related to childbirth (unknown) (no (unknown) (unknown) NEURO: Nonfocal (units (unknown) date) unknown) (unknown) (no (unknown) (unknown) Narrative (units (unkn own) date) unknown) (unknown) (no (unknown) (unknown) Neut # (Auto) (units ( unknown) date) 4000 unknown) (unknown) (no (unknown) (unknown) Neut % (Auto) (units ( unknown) date) 57.7 unknown) (unknown) (no (unknown) (unknown) Objective (units (unkn own) date) unknown) (unknown) (no (unknown) (unknown) On apixaban (units (un known) date) unknown) (unknown) (no (unknown) (unknown) Osteoarthritis of (units (unknown) date) knees, bilateral unknown) (unknown) (no (unknown) (unknown) Oxygen Delivery (units (unknown) date) Method Room Air unknown) (unknown) (no (unknown) (unknown) Oxygen Delivery (units (unknown) date) Method Room Air unknown) (unknown) (no (unknown) (unknown) Oxygen Delivery (units (unknown) date) Method Room Air unknown) (unknown) (no (unknown) (unknown) Oxygen Flow Rate (units (unknown) date) 0 unknown) (unknown) (no (unknown) (unknown) Oxygen Flow Rate 0 (units (unknown) date) unknown) (unknown) (no (unknown) (unknown) Oxygen Flow Rate 0 (units (unknown) date) 0 0 unknown) (unknown) (no (unknown) (unknown) PFSH (units (unkno wn) date) unknown) (unknown) (no (unknown) (unknown) Patient has had a (units (unknown) date) 7.5% weight loss unknown) over the last 3 months.? Oral nutritional (unknown) (no (unknown) (unknown) Patient was asleep (units (unknown) date) on my arrival. She unknown) briefly woke up and denied any (unknown) (no (unknown) (unknown) Patient will (units (u nknown) date) benefit from a unknown) memory care unit placement. 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 (unknown) (no (unknown) (unknown) Psychiatry with (units (unknown) date) shins for unknown) guardianship. This is now being pursued. (unknown) (no (unknown) (unknown) Pulse Oximetry 94 (units (unknown) date) 94 97 unknown) (unknown) (no (unknown) (unknown) Pulse Oximetry 97 (units (unknown) date) unknown) (unknown) (no (unknown) (unknown) Pulse Rate (units (unk nown) date) unknown) (unknown) (no (unknown) (unknown) Pulse Rate 72 51 (units (unknown) date) L unknown) (unknown) (no (unknown) (unknown) Quality (units (unkno wn) date) unknown) (unknown) (no (unknown) (unknown) RBC 3.53 L (units (un known) date) unknown) (unknown) (no (unknown) (unknown) RDW 14.9 H (units (un known) date) unknown) (unknown) (no (unknown) (unknown) Respiratory Rate (units (unknown) date) unknown) (unknown) (no (unknown) (unknown) Respiratory Rate (units (unknown) date) 18 18 unknown) (unknown) (no (unknown) (unknown) Result Diagrams: (units (unknown) date) unknown) (unknown) (no (unknown) (unknown) Result issues: (units (unknown) date) unknown) (unknown) (no (unknown) (unknown) SKIN: warm and (units (unknown) date) dry, no rash unknown) (unknown) (no (unknown) (unknown) Signed By: (units (unk nown) date) unknown) (unknown) (no (unknown) (unknown) Sister (units (unknown) date) Traumatic unknown) amputation (unknown) (no (unknown) (unknown) Slums assessment (units (unknown) date) was performed unknown) earlier this hospitalization with a score of (unknown) (no (unknown) (unknown) Smoking Status: (units (unknown) date) Never smoker unknown) (unknown) (no (unknown) (unknown) Social History (units (unknown) date) (Reviewed 03/30/22 unknown) @ 07:25 by Stephane Gonzalez DO) (unknown) (no (unknown) (unknown) Sodium 134 L (units (unknown) date) unknown) (unknown) (no (unknown) (unknown) Speech and (units (unk nown) date) language unknown) 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 (09/28/12) (unknown) (no (unknown) (unknown) Status post (units (un known) date) arthroscopy unknown) (unknown) (no (unknown) (unknown) Status post biopsy (units (unknown) date) (-2014) unknown) (unknown) (no (unknown) (unknown) Status post breast (units (unknown) date) lumpectomy (-2008) unknown) (unknown) (no (unknown) (unknown) Status post (units (un known) date) cholecystectomy unknown) (unknown) (no (unknown) (unknown) 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 (unknown) (no (unknown) (unknown) Status post (units (un known) date) hysterectomy unknown) (-2009) (unknown) (no (unknown) (unknown) Subjective (units (unk nown) date) unknown) (unknown) (no (unknown) (unknown) Surgical History (units (unknown) date) (Reviewed 03/30/22 unknown) @ 07:25 by Stephane Gonzalez DO) (unknown) (no (unknown) (unknown) 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, NYHA (unknown) (no (unknown) (unknown) Temperature (units (un known) date) unknown) (unknown) (no (unknown) (unknown) Temperature 97.4 F (units (unknown) date) L 97.7 F unknown) (unknown) (no (unknown) (unknown) Time Spent With (units (unknown) date) Patient unknown) (unknown) (no (unknown) (unknown) VTE (units (unkno wn) date) unknown) (unknown) (no (unknown) (unknown) Vital Signs (units (un known) date) unknown) (unknown) (no (unknown) (unknown) WBC 6.9 (units (unkno wn) date) unknown) (unknown) (no (unknown) (unknown) [Embedded Image (units (unknown) date) Not Available] unknown) (unknown) (no (unknown) (unknown) ability to take (units (unknown) date) her home.? APS unknown) referral was made March 18 in light of ongoing (unknown) (no (unknown) (unknown) admission. (units (unk nown) date) unknown) (unknown) (no (unknown) (unknown) admitted with (units ( unknown) date) chest pain.? unknown) Patient underwent stress testing and had a low risk (unknown) (no (unknown) (unknown) alcohol intake: (units (unknown) date) never unknown) (unknown) (no (unknown) (unknown) caregiving (units (unkn own) date) concerns.? 1 APS unknown) attempted to make contact with the patient's son, it (unknown) (no (unknown) (unknown) class 2 (06/05/11) (units (unknown) date) unknown) (unknown) (no (unknown) (unknown) complaints. (units (un known) date) unknown) (unknown) (no (unknown) (unknown) difficult to (units (u nknown) date) contact and unknown) apparently they have been evicted from apartment. (unknown) (no (unknown) (unknown) does not have (units ( unknown) date) capacity to make unknown) her own healthcare decisions. 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 No symptoms reported (unknown) (no (unknown) (unknown) fibrillation on (units (unknown) date) apixaban, history unknown) of congestive heart failure ( unknown if (unknown) (no (unknown) (unknown) household members: (units (unknown) date) children unknown) (unknown) (no (unknown) (unknown) organomegaly or (units (unknown) date) masses unknown) (unknown) (no (unknown) (unknown) prior intervention (units (unknown) date) (pt does not recall unknown) what was done).? Low risk nuc this (unknown) (no (unknown) (unknown) reported the (units (u nknown) date) patient has signed unknown) him out of the [facility] with a machete, looked at (unknown) (no (unknown) (unknown) scan.? She was (units (unknown) date) approved for unknown) discharge on March 18, but staff could not get her (unknown) (no (unknown) (unknown) son on the phone (units (unknown) date) who is her POA.? unknown) She remained in the hospital pending his (unknown) (no (unknown) (unknown) supplementation as (units (unknown) date) tolerated. unknown) Continue multivitamin (unknown) (no (unknown) (unknown) systolic or (units (un known) date) diastolic), unknown) hypertension, hyperlipidemia, and prior stroke who was (unknown) (no (unknown) (unknown) them, and [facility]units (unknown) [facility]) Patient has since been evaluated by (unknown) (no (unknown) (unknown) today. (units (unkno wn) date) unknown) (unknown) (no (unknown) (unknown) today; this time (units (unknown) date) is exclusive of unknown) procedural time. (unknown) (no (unknown) (unknown) was discovered (units (unknown) date) that they had unknown) evidently been evicted. Additionally, they Result panel 53 (unknown) (no (unknown) (unknown) (no value) (units (unk nown) date) unknown) (unknown) (no (unknown) (unknown) (no value) (units (unk nown) date) unknown) (unknown) (no (unknown) (unknown) Date of Service: (units (unknown) date) 03/18/22 unknown) (unknown) (no (unknown) (unknown) (no value) (units (unk nown) date) unknown) (unknown) (no (unknown) (unknown) - (units (unkno wn) date) unknown) (unknown) (no (unknown) (unknown) 03/30/22 05:15 (units (unknown) date) unknown) (unknown) (no (unknown) (unknown) [facility] (units (unknown) date) [address] unknown) [place] [address] (unknown) (no (unknown) (unknown) Laboratory Results (units (unknown) date) - last 24 hr unknown) (unknown) (no (unknown) (unknown) Progress Note (units ( unknown) date) unknown) (unknown) (no (unknown) (unknown) (no value) (units (unk nown) date) unknown) (unknown) (no (unknown) (unknown) 05:15 05:15 (units (un known) date) unknown) (unknown) (no (unknown) (unknown) 03/30/22 03/30/22 (units (unknown) date) unknown) (unknown) (no (unknown) (unknown) 03/30/22 (units (unkno wn) date) unknown) (unknown) (no (unknown) (unknown) (12/05/17) (units (unk nown) date) unknown) (unknown) (no (unknown) (unknown) (past 8 hours): (units (unknown) date) unknown) (unknown) (no (unknown) (unknown) 00:00 03/30/22 (units (unknown) date) unknown) (unknown) (no (unknown) (unknown) 05:23 (units (unkno wn) date) unknown) (unknown) (no (unknown) (unknown) . This is (units (unknown) date) consistent with unknown) dementia. She will need 18/04 supervision. She (unknown) (no (unknown) (unknown) 2. 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 Chronic GERD (units (unknown) date) unknown) (unknown) (no (unknown) (unknown) 5. CHF (units (unkno wn) date) unknown) (unknown) (no (unknown) (unknown) 6. Acute severe (units (unknown) date) protein calorie unknown) malnutrition (unknown) (no (unknown) (unknown) ? Appears (units (unkn own) date) euvolemic unknown) presently. (unknown) (no (unknown) (unknown) ? Remains rate (units (unknown) date) controlled.? Is on unknown) chronic apixaban. (unknown) (no (unknown) (unknown) ? Suspect this (units (unknown) date) could be unknown) contributing to her chest pain.? It may be she has (unknown) (no (unknown) (unknown) ? Uncertain as to (units (unknown) date) her previous unknown) cardiac interventions.? Has a sternal scar from (unknown) (no (unknown) (unknown) ?1. Dementia (units (u nknown) date) unknown) (unknown) (no (unknown) (unknown) ?Code status (units (u nknown) date) unknown) (unknown) (no (unknown) (unknown) ?Disposition (units (u nknown) date) unknown) (unknown) (no (unknown) (unknown) ?Prophylaxis (units (u nknown) date) unknown) (unknown) (no (unknown) (unknown) ABD: Soft, mildly (units (unknown) date) diffusely tender, unknown) ND, BT present in all 4 quadrants, no (unknown) (no (unknown) (unknown) Abdominal pain (units (unknown) date) unknown) (unknown) (no (unknown) (unknown) Acute pancreatitis (units (unknown) date) unknown) (unknown) (no (unknown) (unknown) Age/Sex: 86 / F (units (unknown) date) unknown) (unknown) (no (unknown) (unknown) Anesthesia (units (unk nown) date) unknown) (unknown) (no (unknown) (unknown) Anticoagulated (units (unknown) date) unknown) (unknown) (no (unknown) (unknown) Anxiety (units (unkno wn) date) unknown) 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 () (unknown) (no (unknown) (unknown) 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 (09/28/12) (unknown) (no (unknown) (unknown) Assessment + Plan (units (unknown) date) unknown) (unknown) (no (unknown) (unknown) Assessment + Plan (units (unknown) date) narrative: unknown) (unknown) (no (unknown) (unknown) Asthma (units (unkno wn) date) unknown) (unknown) (no (unknown) (unknown) Await guardianship (units (unknown) date) and placement unknown) (unknown) (no (unknown) (unknown) BUN 58 H (units (unk nown) date) unknown) (unknown) (no (unknown) (unknown) BUN/Creatinine (units (unknown) date) Ratio 53.7 H unknown) (unknown) (no (unknown) (unknown) Baso # (Auto) 0 (units (unknown) date) unknown) (unknown) (no (unknown) (unknown) Baso % (Auto) 0.5 (units (unknown) date) unknown) (unknown) (no (unknown) (unknown) Blood Pressure (units (unknown) date) unknown) (unknown) (no (unknown) (unknown) Blood Pressure (units (unknown) date) 122/55 L 118/68 unknown) (unknown) (no (unknown) (unknown) Breast cancer (units ( unknown) date) () unknown) (unknown) (no (unknown) (unknown) 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) unknown) (unknown) (no (unknown) (unknown) CHEST: Respiratory (units (unknown) date) excursions unknown) symmetric, CTAB (unknown) (no (unknown) (unknown) CV: RRR, no M/R/G (units (unknown) date) unknown) (unknown) (no (unknown) (unknown) Calcified nodule (units (unknown) date) unknown) (unknown) (no (unknown) (unknown) Calcium 8.6 (units ( unknown) date) unknown) (unknown) (no (unknown) (unknown) Carbon Dioxide (units (unknown) date) 29 unknown) (unknown) (no (unknown) (unknown) 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 (unknown) (no (unknown) (unknown) Cervical cancer, (units (unknown) date) FIGO stage I unknown) (unknown) (no (unknown) (unknown) Chest pain, ruled (units (unknown) date) out for myocardial unknown) infarction, low risk stress test (unknown) (no (unknown) (unknown) Chloride 98 (units ( unknown) date) unknown) (unknown) (no (unknown) (unknown) Cholelithiasis (units (unknown) date) unknown) (unknown) (no (unknown) (unknown) Chronic back pain (units (unknown) date) unknown) (unknown) (no (unknown) (unknown) Creatinine 1.08 (units (unknown) date) H unknown) (unknown) (no (unknown) (unknown) Critical Care (units ( unknown) date) time: unknown) (unknown) (no (unknown) (unknown) : 1935 (units (unknown) date) Acct:[id number] unknown) (unknown) (no (unknown) (unknown) Date Patient Seen: (units (unknown) date) 03/29/22 unknown) (unknown) (no (unknown) (unknown) Deep Vein (units (unkn own) date) Thrombosis/Pulmonar unknown) y Embolism Present on Admission: No (unknown) (no (unknown) (unknown) Depression (units (unk nown) date) (emotion) unknown) (unknown) (no (unknown) (unknown) Developmental (units ( unknown) date) disorder unknown) (unknown) (no (unknown) (unknown) Diarrhea (units (unkno wn) date) unknown) (unknown) (no (unknown) (unknown) EXTR: warm, well (units (unknown) date) perfused, no C/C/E unknown) (unknown) (no (unknown) (unknown) Eos # (Auto) 100 (units (unknown) date) unknown) (unknown) (no (unknown) (unknown) Eos % (Auto) 1.7 (units (unknown) date) L unknown) (unknown) (no (unknown) (unknown) Essential (units (unkn own) date) hypertension unknown) (09/28/12) (unknown) (no (unknown) (unknown) Estimated GFR 51 (units (unknown) date) L unknown) (unknown) (no (unknown) (unknown) Exam (units (unkno wn) date) unknown) (unknown) (no (unknown) (unknown) Exam Narrative: (units (unknown) date) unknown) (unknown) (no (unknown) (unknown) Failure to thrive (units (unknown) date) in adult unknown) (unknown) (no (unknown) (unknown) Family History (units (unknown) date) (Reviewed 03/30/22 unknown) @ 07:25 by Stephane Gonzalez DO) (unknown) (no (unknown) (unknown) Father (units (unknown) date) Myocardial infarct unknown) (unknown) (no (unknown) (unknown) Fibrocystic breast (units (unknown) date) disease unknown) (unknown) (no (unknown) (unknown) Full (units (unkno wn) date) unknown) (unknown) (no (unknown) (unknown) GEN: Drowsy (units (u nknown) date) elderly female, unknown) lying in the hospital room on bed, NAD (unknown) (no (unknown) (unknown) GERD (units (unkno wn) date) (gastroesophageal unknown) reflux disease) (unknown) (no (unknown) (unknown) Glucose 89 (units (u nknown) date) unknown) (unknown) (no (unknown) (unknown) HEENT:NC, Face (units (unknown) date) symmetric unknown) (unknown) (no (unknown) (unknown) Hct 31.9 L (units (un known) date) unknown) (unknown) (no (unknown) (unknown) Hgb 10.6 L (units (un known) date) unknown) (unknown) (no (unknown) (unknown) History of colon (units (unknown) date) polyps (09/28/12) unknown) (unknown) (no (unknown) (unknown) History of left (units (unknown) date) breast cancer unknown) (-2008) (unknown) (no (unknown) (unknown) Hyperlipidemia (units (unknown) date) 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) unknown) (unknown) (no (unknown) (unknown) Interval history: (units (unknown) date) unknown) (unknown) (no (unknown) (unknown) Labs (units (unkno wn) date) unknown) (unknown) (no (unknown) (unknown) Labs: (units (unkno wn) date) unknown) (unknown) (no (unknown) (unknown) Lymph # (Auto) (units (unknown) date) 2100 unknown) (unknown) (no (unknown) (unknown) Lymph % (Auto) (units (unknown) date) 30.2 unknown) (unknown) (no (unknown) (unknown) [id number] (units (unk nown) date) unknown) (unknown) (no (unknown) (unknown) MCH 30.1 (units (unkn own) date) unknown) (unknown) (no (unknown) (unknown) MCHC 33.4 (units (unk nown) date) unknown) (unknown) (no (unknown) (unknown) MCV 90.4 (units (unkn own) date) unknown) (unknown) (no (unknown) (unknown) Measles (units (unkno wn) date) unknown) (unknown) (no (unknown) (unknown) Medical History (units (unknown) date) (Reviewed 03/30/22 unknown) @ 07:25 by Stephane Gonzalez DO) 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 unknown) () (unknown) (no (unknown) (unknown) [place] # (Auto) 700 (units (unknown) date) unknown) (unknown) (no (unknown) (unknown) [place] % (Auto) 9.9 (units (unknown) date) unknown) (unknown) (no (unknown) (unknown) Mother (units (unknown) date) Maternal unknown) complication related to childbirth (unknown) (no (unknown) (unknown) NEURO: Right (units ( unknown) date) facial droop and unknown) right-sided weakness from previous stroke (unknown) (no (unknown) (unknown) Narrative (units (unkn own) date) unknown) (unknown) (no (unknown) (unknown) Neut # (Auto) (units ( unknown) date) 4000 unknown) (unknown) (no (unknown) (unknown) Neut % (Auto) (units ( unknown) date) 57.7 unknown) (unknown) (no (unknown) (unknown) Objective (units (unkn own) date) unknown) (unknown) (no (unknown) (unknown) On apixaban (units (un known) date) unknown) (unknown) (no (unknown) (unknown) Osteoarthritis of (units (unknown) date) knees, bilateral unknown) (unknown) (no (unknown) (unknown) Oxygen Delivery (units (unknown) date) Method Room Air unknown) (unknown) (no (unknown) (unknown) Oxygen Delivery (units (unknown) date) Method Room Air unknown) (unknown) (no (unknown) (unknown) Oxygen Delivery (units (unknown) date) Method Room Air unknown) (unknown) (no (unknown) (unknown) Oxygen Flow Rate (units (unknown) date) 0 unknown) (unknown) (no (unknown) (unknown) Oxygen Flow Rate 0 (units (unknown) date) unknown) (unknown) (no (unknown) (unknown) Oxygen Flow Rate 0 (units (unknown) date) 0 0 unknown) (unknown) (no (unknown) (unknown) PFSH (units (unkno wn) date) unknown) (unknown) (no (unknown) (unknown) Patient has had a (units (unknown) date) 7.5% weight loss unknown) over the last 3 months.? Oral nutritional (unknown) (no (unknown) (unknown) Patient sleepy but (units (unknown) date) says the right side unknown) of her body hurts. No other complaints. (unknown) (no (unknown) (unknown) Patient will (units (u nknown) date) benefit from a unknown) memory care unit placement. 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 (unknown) (no (unknown) (unknown) Pulse Oximetry 94 (units (unknown) date) 94 97 unknown) (unknown) (no (unknown) (unknown) Pulse Oximetry 97 (units (unknown) date) unknown) (unknown) (no (unknown) (unknown) Pulse Rate (units (unk nown) date) unknown) (unknown) (no (unknown) (unknown) Pulse Rate 72 51 (units (unknown) date) L unknown) (unknown) (no (unknown) (unknown) Quality (units (unkno wn) date) unknown) (unknown) (no (unknown) (unknown) RBC 3.53 L (units (un known) date) unknown) (unknown) (no (unknown) (unknown) RDW 14.9 H (units (un known) date) unknown) (unknown) (no (unknown) (unknown) Respiratory Rate (units (unknown) date) unknown) (unknown) (no (unknown) (unknown) Respiratory Rate (units (unknown) date) 18 18 unknown) (unknown) (no (unknown) (unknown) Result Diagrams: (units (unknown) date) unknown) (unknown) (no (unknown) (unknown) Result issues: (units (unknown) date) unknown) (unknown) (no (unknown) (unknown) SKIN: warm and (units (unknown) date) dry, no rash unknown) (unknown) (no (unknown) (unknown) Signed By: (units (unk nown) date) unknown) (unknown) (no (unknown) (unknown) Sister (units (unknown) date) Traumatic unknown) amputation (unknown) (no (unknown) (unknown) Slums assessment (units (unknown) date) was performed unknown) earlier this hospitalization with a score of (unknown) (no (unknown) (unknown) Smoking Status: (units (unknown) date) Never smoker unknown) (unknown) (no (unknown) (unknown) Social History (units (unknown) date) (Reviewed 03/30/22 unknown) @ 07:25 by Stephane Gonzalez DO) (unknown) (no (unknown) (unknown) Sodium 134 L (units (unknown) date) unknown) (unknown) (no (unknown) (unknown) Speech and (units (unk nown) date) language unknown) 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 (09/28/12) (unknown) (no (unknown) (unknown) Status post (units (un known) date) arthroscopy unknown) (unknown) (no (unknown) (unknown) Status post biopsy (units (unknown) date) (-2014) unknown) (unknown) (no (unknown) (unknown) Status post breast (units (unknown) date) lumpectomy () unknown) (unknown) (no (unknown) (unknown) Status post (units (un known) date) cholecystectomy unknown) (unknown) (no (unknown) (unknown) 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 (unknown) (no (unknown) (unknown) Status post (units (un known) date) hysterectomy unknown) () (unknown) (no (unknown) (unknown) Subjective (units (unk nown) date) unknown) (unknown) (no (unknown) (unknown) Surgical History (units (unknown) date) (Reviewed 03/30/22 unknown) @ 07:25 by Stephane Gonzalez DO) (unknown) (no (unknown) (unknown) 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, NYHA (unknown) (no (unknown) (unknown) Temperature (units (un known) date) unknown) (unknown) (no (unknown) (unknown) Temperature 97.4 F (units (unknown) date) L 97.7 F unknown) (unknown) (no (unknown) (unknown) Time Spent With (units (unknown) date) Patient unknown) (unknown) (no (unknown) (unknown) VTE (units (unkno wn) date) unknown) (unknown) (no (unknown) (unknown) Vital Signs (units (un known) date) unknown) (unknown) (no (unknown) (unknown) WBC 6.9 (units (unkno wn) date) unknown) (unknown) (no (unknown) (unknown) [Embedded Image (units (unknown) date) Not Available] unknown) (unknown) (no (unknown) (unknown) admission. (units (unk nown) date) unknown) (unknown) (no (unknown) (unknown) alcohol intake: (units (unknown) date) never unknown) (unknown) (no (unknown) (unknown) class 2 (06/05/11) (units (unknown) date) unknown) (unknown) (no (unknown) (unknown) difficult to (units (u nknown) date) contact and unknown) apparently they have been evicted from apartment. (unknown) (no (unknown) (unknown) does not have (units ( unknown) date) capacity to make unknown) her own healthcare decisions. 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 No symptoms reported (unknown) (no (unknown) (unknown) household members: (units (unknown) date) children unknown) (unknown) (no (unknown) (unknown) organomegaly or (units (unknown) date) masses unknown) (unknown) (no (unknown) (unknown) prior intervention (units (unknown) date) (pt does not recall unknown) what was done).? Low risk nuc this (unknown) (no (unknown) (unknown) supplementation as (units (unknown) date) tolerated. unknown) Continue multivitamin (unknown) (no (unknown) (unknown) today. (units (unkno wn) date) unknown) (unknown) (no (unknown) (unknown) today; this time (units (unknown) date) is exclusive of unknown) procedural time. Result panel 54 (unknown) (no (unknown) (unknown) (no value) (units (unk nown) date) unknown) (unknown) (no (unknown) (unknown) (no value) (units (unk nown) date) unknown) (unknown) (no (unknown) (unknown) Date of Service: (units (unknown) date) 03/18/22 unknown) (unknown) (no (unknown) (unknown) (no value) (units (unk nown) date) unknown) (unknown) (no (unknown) (unknown) - (units (unkno wn) date) unknown) (unknown) (no (unknown) (unknown) 03/30/22 05:15 (units (unknown) date) unknown) (unknown) (no (unknown) (unknown) 03/30/22 1642 (units ( unknown) date) unknown) (unknown) (no (unknown) (unknown) [facility] (units (unknown) date) [address] unknown) [place] [address] (unknown) (no (unknown) (unknown) Laboratory Results (units (unknown) date) - last 24 hr unknown) (unknown) (no (unknown) (unknown) Progress Note (units ( unknown) date) unknown) (unknown) (no (unknown) (unknown) (no value) (units (unk nown) date) unknown) (unknown) (no (unknown) (unknown) 05:15 05:15 (units (un known) date) unknown) (unknown) (no (unknown) (unknown) 03/30/22 03/30/22 (units (unknown) date) unknown) (unknown) (no (unknown) (unknown) 03/30/22 (units (unkno wn) date) unknown) (unknown) (no (unknown) (unknown) (12/05/17) (units (unk nown) date) unknown) (unknown) (no (unknown) (unknown) (past 8 hours): (units (unknown) date) unknown) (unknown) (no (unknown) (unknown) 00:00 03/30/22 (units (unknown) date) unknown) (unknown) (no (unknown) (unknown) 05:23 (units (unkno wn) date) unknown) (unknown) (no (unknown) (unknown) . This is (units (unknown) date) consistent with unknown) dementia. She will need 18/04 supervision. She (unknown) (no (unknown) (unknown) 2. 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 Chronic GERD (units (unknown) date) unknown) (unknown) (no (unknown) (unknown) 5. CHF (units (unkno wn) date) unknown) (unknown) (no (unknown) (unknown) 6. Acute severe (units (unknown) date) protein calorie unknown) malnutrition (unknown) (no (unknown) (unknown) ? Appears (units (unkn own) date) euvolemic unknown) presently. (unknown) (no (unknown) (unknown) ? Remains rate (units (unknown) date) controlled.? Is on unknown) chronic apixaban. (unknown) (no (unknown) (unknown) ? Suspect this (units (unknown) date) could be unknown) contributing to her chest pain.? It may be she has (unknown) (no (unknown) (unknown) ? Uncertain as to (units (unknown) date) her previous unknown) cardiac interventions.? Has a sternal scar from (unknown) (no (unknown) (unknown) ?1. Dementia (units (u nknown) date) unknown) (unknown) (no (unknown) (unknown) ?Code status (units (u nknown) date) unknown) (unknown) (no (unknown) (unknown) ?Disposition (units (u nknown) date) unknown) (unknown) (no (unknown) (unknown) ?Prophylaxis (units (u nknown) date) unknown) (unknown) (no (unknown) (unknown) ABD: Soft, mildly (units (unknown) date) diffusely tender, unknown) ND, BT present in all 4 quadrants, no (unknown) (no (unknown) (unknown) Abdominal pain (units (unknown) date) unknown) (unknown) (no (unknown) (unknown) Acute pancreatitis (units (unknown) date) unknown) (unknown) (no (unknown) (unknown) Age/Sex: 86 / F (units (unknown) date) unknown) (unknown) (no (unknown) (unknown) Anesthesia (units (unk nown) date) unknown) (unknown) (no (unknown) (unknown) Anticoagulated (units (unknown) date) unknown) (unknown) (no (unknown) (unknown) Anxiety (units (unkno wn) date) unknown) 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 () (unknown) (no (unknown) (unknown) 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 (09/28/12) (unknown) (no (unknown) (unknown) Assessment + Plan (units (unknown) date) unknown) (unknown) (no (unknown) (unknown) Assessment + Plan (units (unknown) date) narrative: unknown) (unknown) (no (unknown) (unknown) Asthma (units (unkno wn) date) unknown) (unknown) (no (unknown) (unknown) Await guardianship (units (unknown) date) and placement unknown) (unknown) (no (unknown) (unknown) BUN 58 H (units (unk nown) date) unknown) (unknown) (no (unknown) (unknown) BUN/Creatinine (units (unknown) date) Ratio 53.7 H unknown) (unknown) (no (unknown) (unknown) Baso # (Auto) 0 (units (unknown) date) unknown) (unknown) (no (unknown) (unknown) Baso % (Auto) 0.5 (units (unknown) date) unknown) (unknown) (no (unknown) (unknown) Blood Pressure (units (unknown) date) unknown) (unknown) (no (unknown) (unknown) Blood Pressure (units (unknown) date) 122/55 L 118/68 unknown) (unknown) (no (unknown) (unknown) Breast cancer (units ( unknown) date) () unknown) (unknown) (no (unknown) (unknown) 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) unknown) (unknown) (no (unknown) (unknown) CHEST: Respiratory (units (unknown) date) excursions unknown) symmetric, CTAB (unknown) (no (unknown) (unknown) CV: RRR, no M/R/G (units (unknown) date) unknown) (unknown) (no (unknown) (unknown) Calcified nodule (units (unknown) date) unknown) (unknown) (no (unknown) (unknown) Calcium 8.6 (units ( unknown) date) unknown) (unknown) (no (unknown) (unknown) Carbon Dioxide (units (unknown) date) 29 unknown) (unknown) (no (unknown) (unknown) 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 (unknown) (no (unknown) (unknown) Cervical cancer, (units (unknown) date) FIGO stage I unknown) (unknown) (no (unknown) (unknown) Chest pain, ruled (units (unknown) date) out for myocardial unknown) infarction, low risk stress test (unknown) (no (unknown) (unknown) Chloride 98 (units ( unknown) date) unknown) (unknown) (no (unknown) (unknown) Cholelithiasis (units (unknown) date) unknown) (unknown) (no (unknown) (unknown) Chronic back pain (units (unknown) date) unknown) (unknown) (no (unknown) (unknown) Creatinine 1.08 (units (unknown) date) H unknown) (unknown) (no (unknown) (unknown) Critical Care (units ( unknown) date) time: unknown) (unknown) (no (unknown) (unknown) : 1935 (units (unknown) date) Acct:[id number] unknown) (unknown) (no (unknown) (unknown) Date Patient Seen: (units (unknown) date) 03/29/22 unknown) (unknown) (no (unknown) (unknown) Deep Vein (units (unkn own) date) Thrombosis/Pulmonar unknown) y Embolism Present on Admission: No (unknown) (no (unknown) (unknown) Depression (units (unk nown) date) (emotion) unknown) (unknown) (no (unknown) (unknown) Developmental (units ( unknown) date) disorder unknown) (unknown) (no (unknown) (unknown) Diarrhea (units (unkno wn) date) unknown) (unknown) (no (unknown) (unknown) EXTR: warm, well (units (unknown) date) perfused, no C/C/E unknown) (unknown) (no (unknown) (unknown) Eos # (Auto) 100 (units (unknown) date) unknown) (unknown) (no (unknown) (unknown) Eos % (Auto) 1.7 (units (unknown) date) L unknown) (unknown) (no (unknown) (unknown) Essential (units (unkn own) date) hypertension unknown) (09/28/12) (unknown) (no (unknown) (unknown) Estimated GFR 51 (units (unknown) date) L unknown) (unknown) (no (unknown) (unknown) Exam (units (unkno wn) date) unknown) (unknown) (no (unknown) (unknown) Exam Narrative: (units (unknown) date) unknown) (unknown) (no (unknown) (unknown) Failure to thrive (units (unknown) date) in adult unknown) (unknown) (no (unknown) (unknown) Family History (units (unknown) date) (Reviewed 03/30/22 unknown) @ 07:25 by Stephane Gonzalez DO) (unknown) (no (unknown) (unknown) Father (units (unknown) date) Myocardial infarct unknown) (unknown) (no (unknown) (unknown) Fibrocystic breast (units (unknown) date) disease unknown) (unknown) (no (unknown) (unknown) Full (units (unkno wn) date) unknown) (unknown) (no (unknown) (unknown) GEN: Drowsy (units (u nknown) date) elderly female, unknown) lying in the hospital room on bed, NAD (unknown) (no (unknown) (unknown) GERD (units (unkno wn) date) (gastroesophageal unknown) reflux disease) (unknown) (no (unknown) (unknown) Glucose 89 (units (u nknown) date) unknown) (unknown) (no (unknown) (unknown) HEENT:NC, Face (units (unknown) date) symmetric unknown) (unknown) (no (unknown) (unknown) Hct 31.9 L (units (un known) date) unknown) (unknown) (no (unknown) (unknown) Hgb 10.6 L (units (un known) date) unknown) (unknown) (no (unknown) (unknown) History of colon (units (unknown) date) polyps (09/28/12) unknown) (unknown) (no (unknown) (unknown) History of left (units (unknown) date) breast cancer unknown) (-2008) (unknown) (no (unknown) (unknown) Hyperlipidemia (units (unknown) date) 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) unknown) (unknown) (no (unknown) (unknown) Interval history: (units (unknown) date) unknown) (unknown) (no (unknown) (unknown) Labs (units (unkno wn) date) unknown) (unknown) (no (unknown) (unknown) Labs: (units (unkno wn) date) unknown) (unknown) (no (unknown) (unknown) Lymph # (Auto) (units (unknown) date) 2100 unknown) (unknown) (no (unknown) (unknown) Lymph % (Auto) (units (unknown) date) 30.2 unknown) (unknown) (no (unknown) (unknown) [id number] (units (unk nown) date) unknown) (unknown) (no (unknown) (unknown) MCH 30.1 (units (unkn own) date) unknown) (unknown) (no (unknown) (unknown) MCHC 33.4 (units (unk nown) date) unknown) (unknown) (no (unknown) (unknown) MCV 90.4 (units (unkn own) date) unknown) (unknown) (no (unknown) (unknown) Measles (units (unkno wn) date) unknown) (unknown) (no (unknown) (unknown) Medical History (units (unknown) date) (Reviewed 03/30/22 unknown) @ 07:25 by Stephane Gonzalez DO) 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 unknown) () (unknown) (no (unknown) (unknown) [place] # (Auto) 700 (units (unknown) date) unknown) (unknown) (no (unknown) (unknown) [place] % (Auto) 9.9 (units (unknown) date) unknown) (unknown) (no (unknown) (unknown) Mother (units (unknown) date) Maternal unknown) complication related to childbirth (unknown) (no (unknown) (unknown) NEURO: Right (units ( unknown) date) facial droop and unknown) right-sided weakness from previous stroke (unknown) (no (unknown) (unknown) Narrative (units (unkn own) date) unknown) (unknown) (no (unknown) (unknown) Neut # (Auto) (units ( unknown) date) 4000 unknown) (unknown) (no (unknown) (unknown) Neut % (Auto) (units ( unknown) date) 57.7 unknown) (unknown) (no (unknown) (unknown) Objective (units (unkn own) date) unknown) (unknown) (no (unknown) (unknown) On apixaban (units (un known) date) unknown) (unknown) (no (unknown) (unknown) Osteoarthritis of (units (unknown) date) knees, bilateral unknown) (unknown) (no (unknown) (unknown) Oxygen Delivery (units (unknown) date) Method Room Air unknown) (unknown) (no (unknown) (unknown) Oxygen Delivery (units (unknown) date) Method Room Air unknown) (unknown) (no (unknown) (unknown) Oxygen Delivery (units (unknown) date) Method Room Air unknown) (unknown) (no (unknown) (unknown) Oxygen Flow Rate (units (unknown) date) 0 unknown) (unknown) (no (unknown) (unknown) Oxygen Flow Rate 0 (units (unknown) date) unknown) (unknown) (no (unknown) (unknown) Oxygen Flow Rate 0 (units (unknown) date) 0 0 unknown) (unknown) (no (unknown) (unknown) PFSH (units (unkno wn) date) unknown) (unknown) (no (unknown) (unknown) Patient has had a (units (unknown) date) 7.5% weight loss unknown) over the last 3 months.? Oral nutritional (unknown) (no (unknown) (unknown) Patient sleepy but (units (unknown) date) says the right side unknown) of her body hurts. No other complaints. (unknown) (no (unknown) (unknown) Patient will (units (u nknown) date) benefit from a unknown) memory care unit placement and [facility] working on this. 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 (unknown) (no (unknown) (unknown) Pulse Oximetry 94 (units (unknown) date) 94 97 unknown) (unknown) (no (unknown) (unknown) Pulse Oximetry 97 (units (unknown) date) unknown) (unknown) (no (unknown) (unknown) Pulse Rate (units (unk nown) date) unknown) (unknown) (no (unknown) (unknown) Pulse Rate 72 51 (units (unknown) date) L unknown) (unknown) (no (unknown) (unknown) Quality (units (unkno wn) date) unknown) (unknown) (no (unknown) (unknown) RBC 3.53 L (units (un known) date) unknown) (unknown) (no (unknown) (unknown) RDW 14.9 H (units (un known) date) unknown) (unknown) (no (unknown) (unknown) Respiratory Rate (units (unknown) date) unknown) (unknown) (no (unknown) (unknown) Respiratory Rate (units (unknown) date) 18 18 unknown) (unknown) (no (unknown) (unknown) Result Diagrams: (units (unknown) date) unknown) (unknown) (no (unknown) (unknown) Result issues: (units (unknown) date) unknown) (unknown) (no (unknown) (unknown) SKIN: warm and (units (unknown) date) dry, no rash unknown) (unknown) (no (unknown) (unknown) Signed (units (unkno wn) date) By:<Electronically unknown) signed by Keya SanfordO.> (unknown) (no (unknown) (unknown) Sister (units (unknown) date) Traumatic unknown) amputation (unknown) (no (unknown) (unknown) Slums assessment (units (unknown) date) was performed unknown) earlier this hospitalization with a score of (unknown) (no (unknown) (unknown) Smoking Status: (units (unknown) date) Never smoker unknown) (unknown) (no (unknown) (unknown) Social History (units (unknown) date) (Reviewed 03/30/22 unknown) @ 07:25 by Stephane Gonzalez DO) (unknown) (no (unknown) (unknown) Sodium 134 L (units (unknown) date) unknown) (unknown) (no (unknown) (unknown) Speech and (units (unk nown) date) language unknown) 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 (09/28/12) (unknown) (no (unknown) (unknown) Status post (units (un known) date) arthroscopy unknown) (unknown) (no (unknown) (unknown) Status post biopsy (units (unknown) date) (-2014) unknown) (unknown) (no (unknown) (unknown) Status post breast (units (unknown) date) lumpectomy () unknown) (unknown) (no (unknown) (unknown) Status post (units (un known) date) cholecystectomy unknown) (unknown) (no (unknown) (unknown) 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 (unknown) (no (unknown) (unknown) Status post (units (un known) date) hysterectomy unknown) () (unknown) (no (unknown) (unknown) Subjective (units (unk nown) date) unknown) (unknown) (no (unknown) (unknown) Surgical History (units (unknown) date) (Reviewed 03/30/22 unknown) @ 07:25 by Stephane A Gonzalez, DO) (unknown) (no (unknown) (unknown) 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, NYHA (unknown) (no (unknown) (unknown) Temperature (units (un known) date) unknown) (unknown) (no (unknown) (unknown) Temperature 97.4 F (units (unknown) date) L 97.7 F unknown) (unknown) (no (unknown) (unknown) Time Spent With (units (unknown) date) Patient unknown) (unknown) (no (unknown) (unknown) VTE (units (unkno wn) date) unknown) (unknown) (no (unknown) (unknown) Vital Signs (units (un known) date) unknown) (unknown) (no (unknown) (unknown) WBC 6.9 (units (unkno wn) date) unknown) (unknown) (no (unknown) (unknown) [Embedded Image (units (unknown) date) Not Available] unknown) (unknown) (no (unknown) (unknown) admission. (units (unk nown) date) unknown) (unknown) (no (unknown) (unknown) alcohol intake: (units (unknown) date) never unknown) (unknown) (no (unknown) (unknown) class 2 (06/05/11) (units (unknown) date) unknown) (unknown) (no (unknown) (unknown) difficult to (units (u nknown) date) contact and unknown) apparently they have been evicted from apartment. (unknown) (no (unknown) (unknown) does not have (units ( unknown) date) capacity to make unknown) her own healthcare decisions. 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 No symptoms reported (unknown) (no (unknown) (unknown) household members: (units (unknown) date) children unknown) (unknown) (no (unknown) (unknown) organomegaly or (units (unknown) date) masses unknown) (unknown) (no (unknown) (unknown) prior intervention (units (unknown) date) (pt does not recall unknown) what was done).? Low risk nuc this (unknown) (no (unknown) (unknown) supplementation as (units (unknown) date) tolerated. unknown) Continue multivitamin (unknown) (no (unknown) (unknown) today. Start PPI. (units (unknown) date) unknown) (unknown) (no (unknown) (unknown) today; this time (units (unknown) date) is exclusive of unknown) procedural time. Result panel 55 (unknown) (no date) (unknown) (unknown) 0 /uL (unkn own) (unknown) (no date) (unknown) (unknown) 0.5 % (unkn own) (unknown) (no date) (unknown) (unknown) 10.5 g/dL (unkn own) (unknown) (no date) (unknown) (unknown) 100 /uL (unkn own) (unknown) (no date) (unknown) (unknown) 11.3 % (unkn own) (unknown) (no date) (unknown) (unknown) 15.2 % (unkn own) (unknown) (no date) (unknown) (unknown) 2.5 % (unkn own) (unknown) (no date) (unknown) (unknown) 2200 /uL (unkn own) (unknown) (no date) (unknown) (unknown) 228 X10 3/uL (unkn own) (unknown) (no date) (unknown) (unknown) 2300 /uL (unkn own) (unknown) (no date) (unknown) (unknown) 3.51 X10 6/uL (unkn own) (unknown) (no date) (unknown) (unknown) 30.0 PG (unkn own) (unknown) (no date) (unknown) (unknown) 31.9 % (unkn own) (unknown) (no date) (unknown) (unknown) 33.1 % (unkn own) (unknown) (no date) (unknown) (unknown) 41.5 % (unkn own) (unknown) (no date) (unknown) (unknown) 44.2 % (unkn own) (unknown) (no date) (unknown) (unknown) 5.3 X10 3/uL (unkn own) (unknown) (no date) (unknown) (unknown) 600 /uL (unkn own) (unknown) (no date) (unknown) (unknown) 90.8 fL (unkn own) Result panel 56 (unknown) (no date) (unknown) (unknown) 0.97 mg/dL (unkn own) (unknown) (no date) (unknown) (unknown) 131 mmol/L (unkn own) (unknown) (no date) (unknown) (unknown) 29 mmol/L (unkn own) (unknown) (no date) (unknown) (unknown) 5.1 mmol/L (unkn own) (unknown) (no date) (unknown) (unknown) 58 mL/min (unkn own) (unknown) (no date) (unknown) (unknown) 61 mg/dL (unkn own) (unknown) (no date) (unknown) (unknown) 62.9 (units unknown) (unknown) (unknown) (no date) (unknown) (unknown) 78 mg/dL (unkn own) (unknown) (no date) (unknown) (unknown) 8.3 mg/dL (unkn own) (unknown) (no date) (unknown) (unknown) 97 mmol/L (unkn own) Result panel 57 (unknown) (no (unknown) (unknown) (no value) (units (unk nown) date) unknown) (unknown) (no (unknown) (unknown) (no value) (units (unk nown) date) unknown) (unknown) (no (unknown) (unknown) Date of Service: (units (unknown) date) 03/18/22 unknown) (unknown) (no (unknown) (unknown) (no value) (units (unk nown) date) unknown) (unknown) (no (unknown) (unknown) - (units (unkno wn) date) unknown) (unknown) (no (unknown) (unknown) 03/31/22 05:50 (units (unknown) date) unknown) (unknown) (no (unknown) (unknown) 03/31/22 1423 (units ( unknown) date) unknown) (unknown) (no (unknown) (unknown) [facility] (units (unknown) date) [address] unknown) [place] [address] (unknown) (no (unknown) (unknown) Laboratory Results (units (unknown) date) - last 24 hr unknown) (unknown) (no (unknown) (unknown) Progress Note (units ( unknown) date) unknown) (unknown) (no (unknown) (unknown) (no value) (units (unk nown) date) unknown) (unknown) (no (unknown) (unknown) 05:50 05:50 (units (un known) date) unknown) (unknown) (no (unknown) (unknown) 03/31/22 03/31/22 (units (unknown) date) unknown) (unknown) (no (unknown) (unknown) 03/31/22 (units (unkno wn) date) unknown) (unknown) (no (unknown) (unknown) (12/05/17) (units (unk nown) date) unknown) (unknown) (no (unknown) (unknown) (past 8 hours): (units (unknown) date) unknown) (unknown) (no (unknown) (unknown) 07:32 03/31/22 (units (unknown) date) unknown) (unknown) (no (unknown) (unknown) 09:08 03/31/22 (units (unknown) date) unknown) (unknown) (no (unknown) (unknown) 11:00 (units (unkno wn) date) unknown) (unknown) (no (unknown) (unknown) . This is (units (unknown) date) consistent with unknown) dementia. She will need 18/04 supervision. She (unknown) (no (unknown) (unknown) 13:18 (units (unkno wn) date) unknown) (unknown) (no (unknown) (unknown) 2. 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 Chronic GERD (units (unknown) date) unknown) (unknown) (no (unknown) (unknown) 5. CHF (units (unkno wn) date) unknown) (unknown) (no (unknown) (unknown) 6. Acute severe (units (unknown) date) protein calorie unknown) malnutrition (unknown) (no (unknown) (unknown) 86-year-old female (units (unknown) date) with known coronary unknown) artery disease, permanent atrial (unknown) (no (unknown) (unknown) ? Appears (units (unkn own) date) euvolemic unknown) presently. (unknown) (no (unknown) (unknown) ? Remains rate (units (unknown) date) controlled.? Is on unknown) chronic apixaban. (unknown) (no (unknown) (unknown) ? Suspect this (units (unknown) date) could be unknown) contributing to her chest pain.? It may be she has (unknown) (no (unknown) (unknown) ? Uncertain as to (units (unknown) date) her previous unknown) cardiac interventions.? Has a sternal scar from (unknown) (no (unknown) (unknown) ?1. Dementia (units (u nknown) date) unknown) (unknown) (no (unknown) (unknown) ?Code status (units (u nknown) date) unknown) (unknown) (no (unknown) (unknown) ?Disposition (units (u nknown) date) unknown) (unknown) (no (unknown) (unknown) ?Prophylaxis (units (u nknown) date) unknown) (unknown) (no (unknown) (unknown) ABD: Soft, mildly (units (unknown) date) diffusely tender, unknown) ND, BT present in all 4 quadrants, no (unknown) (no (unknown) (unknown) Abdominal pain (units (unknown) date) unknown) (unknown) (no (unknown) (unknown) Acute pancreatitis (units (unknown) date) unknown) (unknown) (no (unknown) (unknown) Age/Sex: 86 / F (units (unknown) date) unknown) (unknown) (no (unknown) (unknown) Anesthesia (units (unk nown) date) unknown) (unknown) (no (unknown) (unknown) Anticoagulated (units (unknown) date) unknown) (unknown) (no (unknown) (unknown) Anxiety (units (unkno wn) date) unknown) 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 () (unknown) (no (unknown) (unknown) 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 (09/28/12) (unknown) (no (unknown) (unknown) Assessment + Plan (units (unknown) date) unknown) (unknown) (no (unknown) (unknown) Assessment + Plan (units (unknown) date) narrative: unknown) (unknown) (no (unknown) (unknown) Asthma (units (unkno wn) date) unknown) (unknown) (no (unknown) (unknown) Await guardianship (units (unknown) date) and placement unknown) (unknown) (no (unknown) (unknown) BUN 61 H (units (unk nown) date) unknown) (unknown) (no (unknown) (unknown) BUN/Creatinine (units (unknown) date) Ratio 62.9 H unknown) (unknown) (no (unknown) (unknown) Baso # (Auto) 0 (units (unknown) date) unknown) (unknown) (no (unknown) (unknown) Baso % (Auto) 0.5 (units (unknown) date) unknown) (unknown) (no (unknown) (unknown) Blood Pressure (units (unknown) date) unknown) (unknown) (no (unknown) (unknown) Blood Pressure (units (unknown) date) 130/53 L 130/53 L unknown) 120/49 L (unknown) (no (unknown) (unknown) Breast cancer (units ( unknown) date) (-2001) unknown) (unknown) (no (unknown) (unknown) 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) unknown) (unknown) (no (unknown) (unknown) CHEST: Respiratory (units (unknown) date) excursions unknown) symmetric, CTAB (unknown) (no (unknown) (unknown) CV: RRR, no M/R/G (units (unknown) date) unknown) (unknown) (no (unknown) (unknown) Calcified nodule (units (unknown) date) unknown) (unknown) (no (unknown) (unknown) Calcium 8.3 L (units (unknown) date) unknown) (unknown) (no (unknown) (unknown) Carbon Dioxide (units (unknown) date) 29 unknown) (unknown) (no (unknown) (unknown) 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 (unknown) (no (unknown) (unknown) Cervical cancer, (units (unknown) date) FIGO stage I unknown) (unknown) (no (unknown) (unknown) Chest pain, ruled (units (unknown) date) out for myocardial unknown) infarction, low risk stress test (unknown) (no (unknown) (unknown) Chloride 97 L (units (unknown) date) unknown) (unknown) (no (unknown) (unknown) Cholelithiasis (units (unknown) date) unknown) (unknown) (no (unknown) (unknown) Chronic back pain (units (unknown) date) unknown) (unknown) (no (unknown) (unknown) Creatinine 0.97 (units (unknown) date) unknown) (unknown) (no (unknown) (unknown) Critical Care (units ( unknown) date) time: unknown) (unknown) (no (unknown) (unknown) Currently pending (units (unknown) date) placement. unknown) (unknown) (no (unknown) (unknown) : 1935 (units (unknown) date) Acct:[id number] unknown) (unknown) (no (unknown) (unknown) Date Patient Seen: (units (unknown) date) 03/31/22 unknown) (unknown) (no (unknown) (unknown) Deep Vein (units (unkn own) date) Thrombosis/Pulmonar unknown) y Embolism Present on Admission: No (unknown) (no (unknown) (unknown) Depression (units (unk nown) date) (emotion) unknown) (unknown) (no (unknown) (unknown) Developmental (units ( unknown) date) disorder unknown) (unknown) (no (unknown) (unknown) Diarrhea (units (unkno wn) date) unknown) (unknown) (no (unknown) (unknown) EXTR: warm, well (units (unknown) date) perfused, no C/C/E unknown) (unknown) (no (unknown) (unknown) Eos # (Auto) 100 (units (unknown) date) unknown) (unknown) (no (unknown) (unknown) Eos % (Auto) 2.5 (units (unknown) date) unknown) (unknown) (no (unknown) (unknown) Essential (units (unkn own) date) hypertension unknown) (09/28/12) (unknown) (no (unknown) (unknown) Estimated GFR 58 (units (unknown) date) L unknown) (unknown) (no (unknown) (unknown) Exam (units (unkno wn) date) unknown) (unknown) (no (unknown) (unknown) Exam Narrative: (units (unknown) date) unknown) (unknown) (no (unknown) (unknown) Failure to thrive (units (unknown) date) in adult unknown) (unknown) (no (unknown) (unknown) Family History (units (unknown) date) (Reviewed 03/30/22 unknown) @ 07:25 by Stephane Gonzalez DO) (unknown) (no (unknown) (unknown) Father (units (unknown) date) Myocardial infarct unknown) (unknown) (no (unknown) (unknown) Fibrocystic breast (units (unknown) date) disease unknown) (unknown) (no (unknown) (unknown) Full (units (unkno wn) date) unknown) (unknown) (no (unknown) (unknown) GEN: Drowsy (units (u nknown) date) elderly female, unknown) lying in the hospital room on bed, NAD (unknown) (no (unknown) (unknown) GERD (units (unkno wn) date) (gastroesophageal unknown) reflux disease) (unknown) (no (unknown) (unknown) Glucose 78 L (units (unknown) date) unknown) (unknown) (no (unknown) (unknown) HEENT:NC, Face (units (unknown) date) symmetric unknown) (unknown) (no (unknown) (unknown) Hct 31.9 L (units (un known) date) unknown) (unknown) (no (unknown) (unknown) Hgb 10.5 L (units (un known) date) unknown) (unknown) (no (unknown) (unknown) History of colon (units (unknown) date) polyps (09/28/12) unknown) (unknown) (no (unknown) (unknown) History of left (units (unknown) date) breast cancer unknown) (-2008) (unknown) (no (unknown) (unknown) Hyperlipidemia (units (unknown) date) 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) unknown) (unknown) (no (unknown) (unknown) Interval history: (units (unknown) date) unknown) (unknown) (no (unknown) (unknown) Labs (units (unkno wn) date) unknown) (unknown) (no (unknown) (unknown) Labs: (units (unkno wn) date) unknown) (unknown) (no (unknown) (unknown) Lymph # (Auto) (units (unknown) date) 2200 unknown) (unknown) (no (unknown) (unknown) Lymph % (Auto) (units (unknown) date) 41.5 H unknown) (unknown) (no (unknown) (unknown) [id number] (units (unk nown) date) unknown) (unknown) (no (unknown) (unknown) MCH 30.0 (units (unkn own) date) unknown) (unknown) (no (unknown) (unknown) MCHC 33.1 (units (unk nown) date) unknown) (unknown) (no (unknown) (unknown) MCV 90.8 (units (unkn own) date) unknown) (unknown) (no (unknown) (unknown) [place]as[place] (units (unkno wn) date) unknown) (unknown) (no (unknown) (unknown) Medical History (units (unknown) date) (Reviewed 03/30/22 unknown) @ 07:25 by Stephane Gonzalez DO) 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 unknown) () (unknown) (no (unknown) (unknown) [place] # (Auto) 600 (units (unknown) date) unknown) (unknown) (no (unknown) (unknown) [place] % (Auto) (units ( unknown) date) 11.3 unknown) (unknown) (no (unknown) (unknown) Mother (units (unknown) date) Maternal unknown) complication related to childbirth (unknown) (no (unknown) (unknown) NEURO: Right (units ( unknown) date) facial droop and unknown) right-sided weakness from previous stroke (unknown) (no (unknown) (unknown) Narrative (units (unkn own) date) unknown) (unknown) (no (unknown) (unknown) Neut # (Auto) (units ( unknown) date) 2300 unknown) (unknown) (no (unknown) (unknown) Neut % (Auto) (units ( unknown) date) 44.2 L unknown) (unknown) (no (unknown) (unknown) Objective (units (unkn own) date) unknown) (unknown) (no (unknown) (unknown) On apixaban (units (un known) date) unknown) (unknown) (no (unknown) (unknown) Osteoarthritis of (units (unknown) date) knees, bilateral unknown) (unknown) (no (unknown) (unknown) Oxygen Delivery (units (unknown) date) Method unknown) (unknown) (no (unknown) (unknown) Oxygen Delivery (units (unknown) date) Method Room Air unknown) (unknown) (no (unknown) (unknown) Oxygen Delivery (units (unknown) date) Method Room Air unknown) (unknown) (no (unknown) (unknown) Oxygen Flow Rate (units (unknown) date) 0 unknown) (unknown) (no (unknown) (unknown) PFSH (units (unkno wn) date) unknown) (unknown) (no (unknown) (unknown) Patient has had a (units (unknown) date) 7.5% weight loss unknown) over the last 3 months.? 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 unknown) (unknown) (no (unknown) (unknown) Pulse Oximetry 95 (units (unknown) date) unknown) (unknown) (no (unknown) (unknown) Pulse Oximetry 99 (units (unknown) date) 93 unknown) (unknown) (no (unknown) (unknown) Pulse Rate (units (unk nown) date) unknown) (unknown) (no (unknown) (unknown) Pulse Rate 67 88 (units (unknown) date) unknown) (unknown) (no (unknown) (unknown) Quality (units (unkno wn) date) unknown) (unknown) (no (unknown) (unknown) RBC 3.51 L (units (un known) date) unknown) (unknown) (no (unknown) (unknown) RDW 15.2 H (units (un known) date) unknown) (unknown) (no (unknown) (unknown) Respiratory Rate (units (unknown) date) unknown) (unknown) (no (unknown) (unknown) Respiratory Rate (units (unknown) date) 16 16 unknown) (unknown) (no (unknown) (unknown) Result Diagrams: (units (unknown) date) unknown) (unknown) (no (unknown) (unknown) Result issues: (units (unknown) date) unknown) (unknown) (no (unknown) (unknown) SKIN: warm and (units (unknown) date) dry, no rash unknown) (unknown) (no (unknown) (unknown) Signed (units (unkno wn) date) By:<Electronically unknown) signed by Harvey Cid D.O.> (unknown) (no (unknown) (unknown) Sister (units (unknown) date) Traumatic unknown) amputation (unknown) (no (unknown) (unknown) Slums assessment (units (unknown) date) was performed unknown) earlier this hospitalization with a score of (unknown) (no (unknown) (unknown) Smoking Status: (units (unknown) date) Never smoker unknown) (unknown) (no (unknown) (unknown) Social History (units (unknown) date) (Reviewed 03/30/22 unknown) @ 07:25 by Stephane Gonzalez DO) (unknown) (no (unknown) (unknown) Sodium 131 L (units (unknown) date) unknown) (unknown) (no (unknown) (unknown) Speech and (units (unk nown) date) language unknown) 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 (09/28/12) (unknown) (no (unknown) (unknown) Status post (units (un known) date) arthroscopy unknown) (unknown) (no (unknown) (unknown) Status post biopsy (units (unknown) date) (-2014) unknown) (unknown) (no (unknown) (unknown) Status post breast (units (unknown) date) lumpectomy () unknown) (unknown) (no (unknown) (unknown) Status post (units (un known) date) cholecystectomy unknown) (unknown) (no (unknown) (unknown) 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 (unknown) (no (unknown) (unknown) Status post (units (un known) date) hysterectomy unknown) (-2009) (unknown) (no (unknown) (unknown) Subjective (units (unk nown) date) unknown) (unknown) (no (unknown) (unknown) Surgical History (units (unknown) date) (Reviewed 03/30/22 unknown) @ 07:25 by Stephane Gonzalez DO) (unknown) (no (unknown) (unknown) 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, NYHA (unknown) (no (unknown) (unknown) Temperature (units (un known) date) unknown) (unknown) (no (unknown) (unknown) Temperature 97.3 F (units (unknown) date) L 97.5 F L unknown) (unknown) (no (unknown) (unknown) Time Spent With (units (unknown) date) Patient unknown) (unknown) (no (unknown) (unknown) VTE (units (unkno wn) date) unknown) (unknown) (no (unknown) (unknown) Vital Signs (units (un known) date) unknown) (unknown) (no (unknown) (unknown) WBC 5.3 (units (unkno wn) date) unknown) (unknown) (no (unknown) (unknown) [Embedded Image (units (unknown) date) Not Available] unknown) (unknown) (no (unknown) (unknown) ability to take (units (unknown) date) her home.? APS unknown) referral was made March 18 in light of ongoing (unknown) (no (unknown) (unknown) admission. (units (unk nown) date) unknown) (unknown) (no (unknown) (unknown) admitted with (units ( unknown) date) chest pain.? unknown) Patient underwent stress testing and had a low risk (unknown) (no (unknown) (unknown) alcohol intake: (units (unknown) date) never unknown) (unknown) (no (unknown) (unknown) caregiving (units (unk nown) date) concerns and is now unknown) pending guardianship. (unknown) (no (unknown) (unknown) class 2 (06/05/11) (units (unknown) date) unknown) (unknown) (no (unknown) (unknown) difficult to (units (u nknown) date) contact and unknown) apparently they have been evicted from apartment. (unknown) (no (unknown) (unknown) does not have (units ( unknown) date) capacity to make unknown) her own healthcare decisions. 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 No symptoms reported (unknown) (no (unknown) (unknown) fibrillation on (units (unknown) date) apixaban, history unknown) of congestive heart failure ( unknown if (unknown) (no (unknown) (unknown) household members: (units (unknown) date) children unknown) (unknown) (no (unknown) (unknown) organomegaly or (units (unknown) date) masses unknown) (unknown) (no (unknown) (unknown) prior intervention (units (unknown) date) (pt does not recall unknown) what was done).? Low risk nuc this (unknown) (no (unknown) (unknown) scan.? She was (units (unknown) date) approved for unknown) discharge on March 18, but staff could not get her (unknown) (no (unknown) (unknown) son on the phone (units (unknown) date) who is her POA.? unknown) She remained in the hospital pending his (unknown) (no (unknown) (unknown) supplementation as (units (unknown) date) tolerated. unknown) Continue multivitamin (unknown) (no (unknown) (unknown) systolic or (units (un known) date) diastolic), unknown) hypertension, hyperlipidemia, and prior stroke who was (unknown) (no (unknown) (unknown) today. Start PPI. (units (unknown) date) unknown) (unknown) (no (unknown) (unknown) today; this time (units (unknown) date) is exclusive of unknown) procedural time. Result panel 58 (unknown) (no (unknown) (unknown) (no value) (units (unk nown) date) unknown) (unknown) (no (unknown) (unknown) (no value) (units (unk nown) date) unknown) (unknown) (no (unknown) (unknown) Date of Service: (units (unknown) date) 03/18/22 unknown) (unknown) (no (unknown) (unknown) (no value) (units (unk nown) date) unknown) (unknown) (no (unknown) (unknown) - (units (unkno wn) date) unknown) (unknown) (no (unknown) (unknown) 03/31/22 05:50 (units (unknown) date) unknown) (unknown) (no (unknown) (unknown) 04/01/22 1541 (units ( unknown) date) unknown) (unknown) (no (unknown) (unknown) [facility] (units (unknown) date) [address] unknown) [place] [address] (unknown) (no (unknown) (unknown) Progress Note (units ( unknown) date) unknown) (unknown) (no (unknown) (unknown) (no value) (units (unk nown) date) unknown) (unknown) (no (unknown) (unknown) 04/01/22 (units (unkno wn) date) unknown) (unknown) (no (unknown) (unknown) (12/05/17) (units (unk nown) date) unknown) (unknown) (no (unknown) (unknown) (past 8 hours): (units (unknown) date) unknown) (unknown) (no (unknown) (unknown) 09:53 04/01/22 (units (unknown) date) unknown) (unknown) (no (unknown) (unknown) 11:00 04/01/22 (units (unknown) date) unknown) (unknown) (no (unknown) (unknown) 12:00 (units (unkno wn) date) unknown) (unknown) (no (unknown) (unknown) . This is (units (unknown) date) consistent with unknown) dementia. She will need 18/04 supervision. She (unknown) (no (unknown) (unknown) 2. 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 Chronic GERD (units (unknown) date) unknown) (unknown) (no (unknown) (unknown) 5. CHF (units (unkno wn) date) unknown) (unknown) (no (unknown) (unknown) 6. Acute severe (units (unknown) date) protein calorie unknown) malnutrition (unknown) (no (unknown) (unknown) 86-year-old female (units (unknown) date) with known coronary unknown) artery disease, permanent atrial (unknown) (no (unknown) (unknown) ? Appears (units (unkn own) date) euvolemic unknown) presently. (unknown) (no (unknown) (unknown) ? Remains rate (units (unknown) date) controlled.? Is on unknown) chronic apixaban. (unknown) (no (unknown) (unknown) ? Suspect this (units (unknown) date) could be unknown) contributing to her chest pain.? It may be she has (unknown) (no (unknown) (unknown) ? Uncertain as to (units (unknown) date) her previous unknown) cardiac interventions.? Has a sternal scar from (unknown) (no (unknown) (unknown) ?1. Dementia (units (u nknown) date) unknown) (unknown) (no (unknown) (unknown) ?Code status (units (u nknown) date) unknown) (unknown) (no (unknown) (unknown) ?Disposition (units (u nknown) date) unknown) (unknown) (no (unknown) (unknown) ?Prophylaxis (units (u nknown) date) unknown) (unknown) (no (unknown) (unknown) ABD: Soft, mildly (units (unknown) date) diffusely tender, unknown) ND, BT present in all 4 quadrants, no (unknown) (no (unknown) (unknown) Abdominal pain (units (unknown) date) unknown) (unknown) (no (unknown) (unknown) Acute pancreatitis (units (unknown) date) unknown) (unknown) (no (unknown) (unknown) Age/Sex: 86 / F (units (unknown) date) unknown) (unknown) (no (unknown) (unknown) Anesthesia (units (unk nown) date) unknown) (unknown) (no (unknown) (unknown) Anticoagulated (units (unknown) date) unknown) (unknown) (no (unknown) (unknown) Anxiety (units (unkno wn) date) unknown) 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 () (unknown) (no (unknown) (unknown) 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 (09/28/12) (unknown) (no (unknown) (unknown) Assessment + Plan (units (unknown) date) unknown) (unknown) (no (unknown) (unknown) Assessment + Plan (units (unknown) date) narrative: unknown) (unknown) (no (unknown) (unknown) Asthma (units (unkno wn) date) unknown) (unknown) (no (unknown) (unknown) Await guardianship (units (unknown) date) and placement unknown) (unknown) (no (unknown) (unknown) Blood Pressure (units (unknown) date) 103/58 L 108/73 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 unknown) (unknown) (no (unknown) (unknown) : 1935 (units (unknown) date) Acct:[id number] unknown) (unknown) (no (unknown) (unknown) Date Patient Seen: (units (unknown) date) 04/01/22 unknown) (unknown) (no (unknown) (unknown) Deep Vein (units (unkn own) date) Thrombosis/Pulmonar unknown) y Embolism Present on Admission: No (unknown) (no (unknown) (unknown) Depression (units (unk nown) date) (emotion) unknown) (unknown) (no (unknown) (unknown) Developmental (units ( unknown) date) disorder unknown) (unknown) (no (unknown) (unknown) Diarrhea (units (unkno wn) date) unknown) (unknown) (no (unknown) (unknown) EXTR: warm, well (units (unknown) date) perfused, no C/C/E unknown) (unknown) (no (unknown) (unknown) Essential (units (unkn own) date) hypertension unknown) (09/28/12) (unknown) (no (unknown) (unknown) Exam (units (unkno wn) date) unknown) (unknown) (no (unknown) (unknown) Exam Narrative: (units (unknown) date) unknown) (unknown) (no (unknown) (unknown) Failure to thrive (units (unknown) date) in adult unknown) (unknown) (no (unknown) (unknown) Family History (units (unknown) date) (Reviewed 03/30/22 unknown) @ 07:25 by Stephane Gonzalez DO) (unknown) (no (unknown) (unknown) Father (units (unknown) date) Myocardial infarct unknown) (unknown) (no (unknown) (unknown) Fibrocystic breast (units (unknown) date) disease unknown) (unknown) (no (unknown) (unknown) Full (units (unkno wn) date) unknown) (unknown) (no (unknown) (unknown) GEN: Drowsy (units (u nknown) date) elderly female, unknown) lying in the hospital room on bed, NAD (unknown) (no (unknown) (unknown) GERD (units (unkno wn) date) (gastroesophageal unknown) reflux disease) (unknown) (no (unknown) (unknown) HEENT:NC, Face (units (unknown) date) symmetric unknown) (unknown) (no (unknown) (unknown) History of colon (units (unknown) date) polyps (09/28/12) unknown) (unknown) (no (unknown) (unknown) History of left (units (unknown) date) breast cancer unknown) (-2008) (unknown) (no (unknown) (unknown) Hyperlipidemia (units (unknown) date) 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) unknown) (unknown) (no (unknown) (unknown) Interval history: (units (unknown) date) unknown) (unknown) (no (unknown) (unknown) Labs (units (unkno wn) date) unknown) (unknown) (no (unknown) (unknown) [id number] (units (unk nown) date) unknown) (unknown) (no (unknown) (unknown) Measles (units (unkno wn) date) unknown) (unknown) (no (unknown) (unknown) Medical History (units (unknown) date) (Reviewed 03/30/22 unknown) @ 07:25 by Stephane Gonzalez DO) 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 unknown) () (unknown) (no (unknown) (unknown) Mother (units (unknown) date) Maternal unknown) complication related to childbirth (unknown) (no (unknown) (unknown) NEURO: Right (units ( unknown) date) facial droop and unknown) right-sided weakness from previous stroke (unknown) (no (unknown) (unknown) Narrative (units (unkn own) date) unknown) (unknown) (no (unknown) (unknown) Objective (units (unkn own) date) unknown) (unknown) (no (unknown) (unknown) On apixaban (units (un known) date) unknown) (unknown) (no (unknown) (unknown) Osteoarthritis of (units (unknown) date) knees, bilateral unknown) (unknown) (no (unknown) (unknown) Oxygen Delivery (units (unknown) date) Method Room Air unknown) (unknown) (no (unknown) (unknown) Oxygen Delivery (units (unknown) date) Method Room Air unknown) (unknown) (no (unknown) (unknown) Oxygen Flow Rate (units (unknown) date) 0 unknown) (unknown) (no (unknown) (unknown) Oxygen Flow Rate (units (unknown) date) 0 unknown) (unknown) (no (unknown) (unknown) PFSH (units (unkno wn) date) unknown) (unknown) (no (unknown) (unknown) Patient has had a (units (unknown) date) 7.5% weight loss unknown) over the last 3 months.? 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 unknown) (unknown) (no (unknown) (unknown) Pulse Oximetry 96 (units (unknown) date) 96 unknown) (unknown) (no (unknown) (unknown) Pulse Rate 75 (units (unknown) date) unknown) (unknown) (no (unknown) (unknown) Quality (units (unkno wn) date) unknown) (unknown) (no (unknown) (unknown) Respiratory Rate (units (unknown) date) 16 unknown) (unknown) (no (unknown) (unknown) Result Diagrams: (units (unknown) date) unknown) (unknown) (no (unknown) (unknown) Result issues: (units (unknown) date) unknown) (unknown) (no (unknown) (unknown) SKIN: warm and (units (unknown) date) dry, no rash unknown) (unknown) (no (unknown) (unknown) Signed (units (unkno wn) date) By:<Electronically unknown) signed by Harvey Cid D.O.> (unknown) (no (unknown) (unknown) Sister (units (unknown) date) Traumatic unknown) amputation (unknown) (no (unknown) (unknown) Slums assessment (units (unknown) date) was performed unknown) earlier this hospitalization with a score of (unknown) (no (unknown) (unknown) Smoking Status: (units (unknown) date) Never smoker unknown) (unknown) (no (unknown) (unknown) Social History (units (unknown) date) (Reviewed 03/30/22 unknown) @ 07:25 by Stephane Gonzalez DO) (unknown) (no (unknown) (unknown) Speech and (units (unk nown) date) language unknown) 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 (09/28/12) (unknown) (no (unknown) (unknown) Status post (units (un known) date) arthroscopy unknown) (unknown) (no (unknown) (unknown) Status post biopsy (units (unknown) date) (-2014) unknown) (unknown) (no (unknown) (unknown) Status post breast (units (unknown) date) lumpectomy () unknown) (unknown) (no (unknown) (unknown) Status post (units (un known) date) cholecystectomy unknown) (unknown) (no (unknown) (unknown) 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 (unknown) (no (unknown) (unknown) Status post (units (un known) date) hysterectomy unknown) () (unknown) (no (unknown) (unknown) Subjective (units (unk nown) date) unknown) (unknown) (no (unknown) (unknown) Surgical History (units (unknown) date) (Reviewed 03/30/22 unknown) @ 07:25 by Stephane Gonzalez DO) (unknown) (no (unknown) (unknown) 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, NYHA (unknown) (no (unknown) (unknown) Temperature 97.2 (units (unknown) date) F L unknown) (unknown) (no (unknown) (unknown) Time Spent With (units (unknown) date) Patient unknown) (unknown) (no (unknown) (unknown) VTE (units (unkno wn) date) unknown) (unknown) (no (unknown) (unknown) Vital Signs (units (un known) date) unknown) (unknown) (no (unknown) (unknown) [Embedded Image (units (unknown) date) Not Available] unknown) (unknown) (no (unknown) (unknown) ability to take (units (unknown) date) her home.? APS unknown) referral was made March 18 in light of ongoing (unknown) (no (unknown) (unknown) admission. (units (unk nown) date) unknown) (unknown) (no (unknown) (unknown) admitted with (units ( unknown) date) chest pain.? unknown) Patient underwent stress testing and had a low risk (unknown) (no (unknown) (unknown) alcohol intake: (units (unknown) date) never unknown) (unknown) (no (unknown) (unknown) caregiving (units (unk nown) date) concerns and is now unknown) pending guardianship. (unknown) (no (unknown) (unknown) class 2 (06/05/11) (units (unknown) date) unknown) (unknown) (no (unknown) (unknown) difficult to (units (u nknown) date) contact and unknown) apparently they have been evicted from apartment. (unknown) (no (unknown) (unknown) does not have (units ( unknown) date) capacity to make unknown) her own healthcare decisions. 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 No symptoms reported (unknown) (no (unknown) (unknown) fibrillation on (units (unknown) date) apixaban, history unknown) of congestive heart failure ( unknown if (unknown) (no (unknown) (unknown) household members: (units (unknown) date) children unknown) (unknown) (no (unknown) (unknown) organomegaly or (units (unknown) date) masses unknown) (unknown) (no (unknown) (unknown) prior intervention (units (unknown) date) (pt does not recall unknown) what was done).? Low risk nuc this (unknown) (no (unknown) (unknown) scan.? She was (units (unknown) date) approved for unknown) discharge on March 18, but staff could not get her (unknown) (no (unknown) (unknown) son on the phone (units (unknown) date) who is her POA.? unknown) She remained in the hospital pending his (unknown) (no (unknown) (unknown) supplementation as (units (unknown) date) tolerated. unknown) Continue multivitamin (unknown) (no (unknown) (unknown) systolic or (units (un known) date) diastolic), unknown) hypertension, hyperlipidemia, and prior stroke who was (unknown) (no (unknown) (unknown) today. Start PPI. (units (unknown) date) unknown) (unknown) (no (unknown) (unknown) today; this time (units (unknown) date) is exclusive of unknown) procedural time. Result panel 59 (unknown) (no (unknown) (unknown) (no value) (units (unk nown) date) unknown) (unknown) (no (unknown) (unknown) (no value) (units (unk nown) date) unknown) (unknown) (no (unknown) (unknown) Date of Service: (units (unknown) date) 03/18/22 unknown) (unknown) (no (unknown) (unknown) (no value) (units (unk nown) date) unknown) (unknown) (no (unknown) (unknown) - (units (unkno wn) date) unknown) (unknown) (no (unknown) (unknown) 03/31/22 05:50 (units (unknown) date) unknown) (unknown) (no (unknown) (unknown) 04/02/22 1607 (units ( unknown) date) unknown) (unknown) (no (unknown) (unknown) [facility] (units (unknown) date) [address] unknown) [place] [address] (unknown) (no (unknown) (unknown) Progress Note (units ( unknown) date) unknown) (unknown) (no (unknown) (unknown) (no value) (units (unk nown) date) unknown) (unknown) (no (unknown) (unknown) 04/02/22 (units (unkno wn) date) unknown) (unknown) (no (unknown) (unknown) (12/05/17) (units (unk nown) date) unknown) (unknown) (no (unknown) (unknown) (past 8 hours): (units (unknown) date) unknown) (unknown) (no (unknown) (unknown) 08:50 04/02/22 (units (unknown) date) unknown) (unknown) (no (unknown) (unknown) 09:22 04/02/22 (units (unknown) date) unknown) (unknown) (no (unknown) (unknown) 12:00 (units (unkno wn) date) unknown) (unknown) (no (unknown) (unknown) . This is (units (unknown) date) consistent with unknown) dementia. She will need 18/04 supervision. She (unknown) (no (unknown) (unknown) 2. 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 Chronic GERD (units (unknown) date) unknown) (unknown) (no (unknown) (unknown) 5. CHF (units (unkno wn) date) unknown) (unknown) (no (unknown) (unknown) 6. Acute severe (units (unknown) date) protein calorie unknown) malnutrition (unknown) (no (unknown) (unknown) ? Appears (units (unkn own) date) euvolemic unknown) presently. (unknown) (no (unknown) (unknown) ? Remains rate (units (unknown) date) controlled.? Is on unknown) chronic apixaban. (unknown) (no (unknown) (unknown) ? Suspect this (units (unknown) date) could be unknown) contributing to her chest pain.? It may be she has (unknown) (no (unknown) (unknown) ? Uncertain as to (units (unknown) date) her previous unknown) cardiac interventions.? Has a sternal scar from (unknown) (no (unknown) (unknown) ?1. Dementia (units (u nknown) date) unknown) (unknown) (no (unknown) (unknown) ?Code status (units (u nknown) date) unknown) (unknown) (no (unknown) (unknown) ?Disposition (units (u nknown) date) unknown) (unknown) (no (unknown) (unknown) ?Prophylaxis (units (u nknown) date) unknown) (unknown) (no (unknown) (unknown) ABD: Soft, mildly (units (unknown) date) diffusely tender, unknown) ND, BT present in all 4 quadrants, no (unknown) (no (unknown) (unknown) Abdominal pain (units (unknown) date) unknown) (unknown) (no (unknown) (unknown) Acute pancreatitis (units (unknown) date) unknown) (unknown) (no (unknown) (unknown) Age/Sex: 86 / F (units (unknown) date) unknown) (unknown) (no (unknown) (unknown) Anesthesia (units (unk nown) date) unknown) (unknown) (no (unknown) (unknown) Anticoagulated (units (unknown) date) unknown) (unknown) (no (unknown) (unknown) Anxiety (units (unkno wn) date) unknown) 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 () (unknown) (no (unknown) (unknown) 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 (09/28/12) (unknown) (no (unknown) (unknown) Assessment + Plan (units (unknown) date) unknown) (unknown) (no (unknown) (unknown) Assessment + Plan (units (unknown) date) narrative: unknown) (unknown) (no (unknown) (unknown) Asthma (units (unkno wn) date) unknown) (unknown) (no (unknown) (unknown) Await guardianship (units (unknown) date) and placement unknown) (unknown) (no (unknown) (unknown) Blood Pressure (units (unknown) date) 135/67 135/69 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 unknown) (unknown) (no (unknown) (unknown) : 1935 (units (unknown) date) Acct:[id number] unknown) (unknown) (no (unknown) (unknown) Deep Vein (units (unkn own) date) Thrombosis/Pulmonar unknown) y Embolism Present on Admission: No (unknown) (no (unknown) (unknown) Depression (units (unk nown) date) (emotion) unknown) (unknown) (no (unknown) (unknown) Developmental (units ( unknown) date) disorder unknown) (unknown) (no (unknown) (unknown) Diarrhea (units (unkno wn) date) unknown) (unknown) (no (unknown) (unknown) EXTR: warm, well (units (unknown) date) perfused, no C/C/E unknown) (unknown) (no (unknown) (unknown) Essential (units (unkn own) date) hypertension unknown) (09/28/12) (unknown) (no (unknown) (unknown) Exam (units (unkno wn) date) unknown) (unknown) (no (unknown) (unknown) Exam Narrative: (units (unknown) date) unknown) (unknown) (no (unknown) (unknown) Failure to thrive (units (unknown) date) in adult unknown) (unknown) (no (unknown) (unknown) Family History (units (unknown) date) (Reviewed 03/30/22 unknown) @ 07:25 by Stephane Gonzalez DO) (unknown) (no (unknown) (unknown) Father (units (unknown) date) Myocardial infarct unknown) (unknown) (no (unknown) (unknown) Fibrocystic breast (units (unknown) date) disease unknown) (unknown) (no (unknown) (unknown) Full (units (unkno wn) date) unknown) (unknown) (no (unknown) (unknown) GEN: Drowsy (units (u nknown) date) elderly female, unknown) lying in the hospital room on bed, NAD (unknown) (no (unknown) (unknown) GERD (units (unkno wn) date) (gastroesophageal unknown) reflux disease) (unknown) (no (unknown) (unknown) HEENT:NC, Face (units (unknown) date) symmetric unknown) (unknown) (no (unknown) (unknown) History of colon (units (unknown) date) polyps (09/28/12) unknown) (unknown) (no (unknown) (unknown) History of left (units (unknown) date) breast cancer unknown) () (unknown) (no (unknown) (unknown) Hyperlipidemia (units (unknown) date) 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) unknown) (unknown) (no (unknown) (unknown) Labs (units (unkno wn) date) unknown) (unknown) (no (unknown) (unknown) [id number] (units (unk nown) date) unknown) (unknown) (no (unknown) (unknown) Measles (units (unkno wn) date) unknown) (unknown) (no (unknown) (unknown) Medical History (units (unknown) date) (Reviewed 03/30/22 unknown) @ 07:25 by Stephane Gonzalez DO) 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 unknown) () (unknown) (no (unknown) (unknown) Mother (units (unknown) date) Maternal unknown) complication related to childbirth (unknown) (no (unknown) (unknown) NEURO: Right (units ( unknown) date) facial droop and unknown) right-sided weakness from previous stroke (unknown) (no (unknown) (unknown) Narrative (units (unkn own) date) unknown) (unknown) (no (unknown) (unknown) Objective (units (unkn own) date) unknown) (unknown) (no (unknown) (unknown) On apixaban (units (un known) date) unknown) (unknown) (no (unknown) (unknown) Osteoarthritis of (units (unknown) date) knees, bilateral unknown) (unknown) (no (unknown) (unknown) Oxygen Delivery (units (unknown) date) Method Room Air unknown) (unknown) (no (unknown) (unknown) Oxygen Delivery (units (unknown) date) Method Room Air unknown) (unknown) (no (unknown) (unknown) Oxygen Flow Rate (units (unknown) date) 0 unknown) (unknown) (no (unknown) (unknown) Oxygen Flow Rate 0 (units (unknown) date) unknown) (unknown) (no (unknown) (unknown) PFSH (units (unkno wn) date) unknown) (unknown) (no (unknown) (unknown) Patient has had a (units (unknown) date) 7.5% weight loss unknown) over the last 3 months.? 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 unknown) (unknown) (no (unknown) (unknown) Pulse Oximetry 97 (units (unknown) date) 95 unknown) (unknown) (no (unknown) (unknown) Pulse Rate 64 67 (units (unknown) date) unknown) (unknown) (no (unknown) (unknown) Quality (units (unkno wn) date) unknown) (unknown) (no (unknown) (unknown) Respiratory Rate (units (unknown) date) 18 unknown) (unknown) (no (unknown) (unknown) Result Diagrams: (units (unknown) date) unknown) (unknown) (no (unknown) (unknown) Result issues: (units (unknown) date) unknown) (unknown) (no (unknown) (unknown) SKIN: warm and (units (unknown) date) dry, no rash unknown) (unknown) (no (unknown) (unknown) Signed (units (unkno wn) date) By:<Electronically unknown) signed by Harvey Cid D.O.> (unknown) (no (unknown) (unknown) Sister (units (unknown) date) Traumatic unknown) amputation (unknown) (no (unknown) (unknown) Slums assessment (units (unknown) date) was performed unknown) earlier this hospitalization with a score of (unknown) (no (unknown) (unknown) Smoking Status: (units (unknown) date) Never smoker unknown) (unknown) (no (unknown) (unknown) Social History (units (unknown) date) (Reviewed 03/30/22 unknown) @ 07:25 by Stephane Gonzalez DO) (unknown) (no (unknown) (unknown) Speech and (units (unk nown) date) language unknown) 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 (09/28/12) (unknown) (no (unknown) (unknown) Status post (units (un known) date) arthroscopy unknown) (unknown) (no (unknown) (unknown) Status post biopsy (units (unknown) date) (-2014) unknown) (unknown) (no (unknown) (unknown) Status post breast (units (unknown) date) lumpectomy (-2008) unknown) (unknown) (no (unknown) (unknown) Status post (units (un known) date) cholecystectomy unknown) (unknown) (no (unknown) (unknown) 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 (unknown) (no (unknown) (unknown) Status post (units (un known) date) hysterectomy unknown) (-2009) (unknown) (no (unknown) (unknown) Surgical History (units (unknown) date) (Reviewed 03/30/22 unknown) @ 07:25 by Stephane Gonzalez DO) (unknown) (no (unknown) (unknown) 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 (units (unk nown) date) unknown) (unknown) (no (unknown) (unknown) alcohol intake: (units (unknown) date) never unknown) (unknown) (no (unknown) (unknown) class 2 (06/05/11) (units (unknown) date) unknown) (unknown) (no (unknown) (unknown) difficult to (units (u nknown) date) contact and unknown) apparently they have been evicted from apartment. (unknown) (no (unknown) (unknown) does not have (units ( unknown) date) capacity to make unknown) her own healthcare decisions. 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 No symptoms reported (unknown) (no (unknown) (unknown) household members: (units (unknown) date) children unknown) (unknown) (no (unknown) (unknown) organomegaly or (units (unknown) date) masses unknown) (unknown) (no (unknown) (unknown) prior intervention (units (unknown) date) (pt does not recall unknown) what was done).? Low risk nuc this (unknown) (no (unknown) (unknown) supplementation as (units (unknown) date) tolerated. unknown) Continue multivitamin (unknown) (no (unknown) (unknown) today. Start PPI. (units (unknown) date) unknown) (unknown) (no (unknown) (unknown) today; this time (units (unknown) date) is exclusive of unknown) procedural time. Result panel 60 (unknown) (no (unknown) (unknown) (no value) (units (unk nown) date) unknown) (unknown) (no (unknown) (unknown) (no value) (units (unk nown) date) unknown) (unknown) (no (unknown) (unknown) Date of Service: (units (unknown) date) 03/18/22 unknown) (unknown) (no (unknown) (unknown) (no value) (units (unk nown) date) unknown) (unknown) (no (unknown) (unknown) - (units (unkno wn) date) unknown) (unknown) (no (unknown) (unknown) 03/31/22 05:50 (units (unknown) date) unknown) (unknown) (no (unknown) (unknown) [facility] (units (unknown) date) [address] unknown) [place] [address] (unknown) (no (unknown) (unknown) Progress Note (units ( unknown) date) unknown) (unknown) (no (unknown) (unknown) (no value) (units (unk nown) date) unknown) (unknown) (no (unknown) (unknown) 04/03/22 (units (unkno wn) date) unknown) (unknown) (no (unknown) (unknown) (12/05/17) (units (unk nown) date) unknown) (unknown) (no (unknown) (unknown) (past 8 hours): (units (unknown) date) unknown) (unknown) (no (unknown) (unknown) 07:00 (units (unkno wn) date) unknown) (unknown) (no (unknown) (unknown) 08:34 04/03/22 (units (unknown) date) unknown) (unknown) (no (unknown) (unknown) 09:00 04/03/22 (units (unknown) date) unknown) (unknown) (no (unknown) (unknown) 11:00 04/03/22 (units (unknown) date) unknown) (unknown) (no (unknown) (unknown) 11:24 (units (unkno wn) date) unknown) (unknown) (no (unknown) (unknown) . This is (units (unknown) date) consistent with unknown) dementia. She will need 18/04 supervision. She (unknown) (no (unknown) (unknown) 2. 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 Chronic GERD (units (unknown) date) unknown) (unknown) (no (unknown) (unknown) 5. CHFrEF (units (unkn own) date) unknown) (unknown) (no (unknown) (unknown) 6. Acute severe (units (unknown) date) protein calorie unknown) malnutrition (unknown) (no (unknown) (unknown) 86-year-old female (units (unknown) date) with known coronary unknown) artery disease, permanent atrial (unknown) (no (unknown) (unknown) ? Appears (units (unkn own) date) euvolemic unknown) presently. Patient is on ARB and beta annie therapy. (unknown) (no (unknown) (unknown) ? Remains rate (units (unknown) date) controlled.? Is on unknown) chronic apixaban. (unknown) (no (unknown) (unknown) ? Suspect this (units (unknown) date) could be unknown) contributing to her chest pain.? It may be she has (unknown) (no (unknown) (unknown) ? Uncertain as to (units (unknown) date) her previous unknown) cardiac interventions.? Has a sternal scar from (unknown) (no (unknown) (unknown) ?1. Dementia (units (u nknown) date) unknown) (unknown) (no (unknown) (unknown) ?Code status (units (u nknown) date) unknown) (unknown) (no (unknown) (unknown) ?Disposition (units (u nknown) date) unknown) (unknown) (no (unknown) (unknown) ?Prophylaxis (units (u nknown) date) unknown) (unknown) (no (unknown) (unknown) ABD: Soft, NT ND (units (unknown) date) unknown) (unknown) (no (unknown) (unknown) Abdominal pain (units (unknown) date) unknown) (unknown) (no (unknown) (unknown) Acute pancreatitis (units (unknown) date) unknown) (unknown) (no (unknown) (unknown) Age/Sex: 86 / F (units (unknown) date) unknown) (unknown) (no (unknown) (unknown) Anesthesia (units (unk nown) date) unknown) (unknown) (no (unknown) (unknown) Anticoagulated (units (unknown) date) unknown) (unknown) (no (unknown) (unknown) Anxiety (units (unkno wn) date) unknown) 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 () (unknown) (no (unknown) (unknown) 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 (09/28/12) (unknown) (no (unknown) (unknown) Assessment + Plan (units (unknown) date) unknown) (unknown) (no (unknown) (unknown) Assessment + Plan (units (unknown) date) narrative: unknown) (unknown) (no (unknown) (unknown) Asthma (units (unkno wn) date) unknown) (unknown) (no (unknown) (unknown) Await guardianship (units (unknown) date) and placement unknown) (unknown) (no (unknown) (unknown) Blood Pressure (units (unknown) date) 95/52 L unknown) (unknown) (no (unknown) (unknown) Blood Pressure (units (unknown) date) 151/67 H 151/67 H 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 unknown) (unknown) (no (unknown) (unknown) : 1935 (units (unknown) date) Acct:[id number] unknown) (unknown) (no (unknown) (unknown) Date Patient Seen: (units (unknown) date) 04/03/22 unknown) (unknown) (no (unknown) (unknown) Deep Vein (units (unkn own) date) Thrombosis/Pulmonar unknown) y Embolism Present on Admission: No (unknown) (no (unknown) (unknown) Depression (units (unk nown) date) (emotion) unknown) (unknown) (no (unknown) (unknown) Developmental (units ( unknown) date) disorder unknown) (unknown) (no (unknown) (unknown) Diarrhea (units (unkno wn) date) unknown) (unknown) (no (unknown) (unknown) EXTR: warm, well (units (unknown) date) perfused, no C/C/E unknown) (unknown) (no (unknown) (unknown) Essential (units (unkn own) date) hypertension unknown) (09/28/12) (unknown) (no (unknown) (unknown) Exam (units (unkno wn) date) unknown) (unknown) (no (unknown) (unknown) Exam Narrative: (units (unknown) date) unknown) (unknown) (no (unknown) (unknown) Failure to thrive (units (unknown) date) in adult unknown) (unknown) (no (unknown) (unknown) Family History (units (unknown) date) (Reviewed 03/30/22 unknown) @ 07:25 by Stephane Gonzalez DO) (unknown) (no (unknown) (unknown) Father (units (unknown) date) Myocardial infarct unknown) (unknown) (no (unknown) (unknown) Fibrocystic breast (units (unknown) date) disease unknown) (unknown) (no (unknown) (unknown) Full (units (unkno wn) date) unknown) (unknown) (no (unknown) (unknown) GEN: Drowsy (units (u nknown) date) elderly female, unknown) lying in the hospital room on bed, NAD (unknown) (no (unknown) (unknown) GERD (units (unkno wn) date) (gastroesophageal unknown) reflux disease) (unknown) (no (unknown) (unknown) HEENT:NC, Face (units (unknown) date) symmetric unknown) (unknown) (no (unknown) (unknown) History of colon (units (unknown) date) polyps (09/28/12) unknown) (unknown) (no (unknown) (unknown) History of left (units (unknown) date) breast cancer unknown) () (unknown) (no (unknown) (unknown) Hyperlipidemia (units (unknown) date) 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) unknown) (unknown) (no (unknown) (unknown) Interval history: (units (unknown) date) unknown) (unknown) (no (unknown) (unknown) Labs (units (unkno wn) date) unknown) (unknown) (no (unknown) (unknown) [id number] (units (unk nown) date) unknown) (unknown) (no (unknown) (unknown) Measles (units (unkno wn) date) unknown) (unknown) (no (unknown) (unknown) Medical History (units (unknown) date) (Reviewed 03/30/22 unknown) @ 07:25 by Stephane Gonzalez DO) 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 unknown) () (unknown) (no (unknown) (unknown) Mother (units (unknown) date) Maternal unknown) complication related to childbirth (unknown) (no (unknown) (unknown) NEURO: Right (units ( unknown) date) facial droop and unknown) right-sided weakness from previous stroke (unknown) (no (unknown) (unknown) Narrative (units (unkn own) date) unknown) (unknown) (no (unknown) (unknown) Objective (units (unkn own) date) unknown) (unknown) (no (unknown) (unknown) On apixaban (units (un known) date) unknown) (unknown) (no (unknown) (unknown) Osteoarthritis of (units (unknown) date) knees, bilateral unknown) (unknown) (no (unknown) (unknown) Oxygen Delivery (units (unknown) date) Method Room Air unknown) (unknown) (no (unknown) (unknown) Oxygen Delivery (units (unknown) date) Method Room Air unknown) (unknown) (no (unknown) (unknown) Oxygen Delivery (units (unknown) date) Method Room Air unknown) (unknown) (no (unknown) (unknown) Oxygen Flow Rate (units (unknown) date) 0 unknown) (unknown) (no (unknown) (unknown) Oxygen Flow Rate (units (unknown) date) 0 unknown) (unknown) (no (unknown) (unknown) Oxygen Flow Rate (units (unknown) date) 0 unknown) (unknown) (no (unknown) (unknown) PFSH (units (unkno wn) date) unknown) (unknown) (no (unknown) (unknown) POA.? She remained (units (unknown) date) in the hospital unknown) pending his ability to take her home.? APS (unknown) (no (unknown) (unknown) Patient has had a (units (unknown) date) 7.5% weight loss unknown) over the last 3 months.? 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 unknown) (unknown) (no (unknown) (unknown) Pulse Oximetry (units (unknown) date) 100 unknown) (unknown) (no (unknown) (unknown) Pulse Oximetry 98 (units (unknown) date) unknown) (unknown) (no (unknown) (unknown) Pulse Rate 67 (units (unknown) date) unknown) (unknown) (no (unknown) (unknown) Pulse Rate 84 67 (units (unknown) date) unknown) (unknown) (no (unknown) (unknown) Quality (units (unkno wn) date) unknown) (unknown) (no (unknown) (unknown) Reduce losartan, (units (unknown) date) low normal BP unknown) today. (unknown) (no (unknown) (unknown) Respiratory Rate (units (unknown) date) 18 unknown) (unknown) (no (unknown) (unknown) Respiratory Rate (units (unknown) date) 18 unknown) (unknown) (no (unknown) (unknown) Result Diagrams: (units (unknown) date) unknown) (unknown) (no (unknown) (unknown) Result issues: (units (unknown) date) unknown) (unknown) (no (unknown) (unknown) SKIN: warm and (units (unknown) date) dry, no rash unknown) (unknown) (no (unknown) (unknown) Signed By: (units (unk nown) date) unknown) (unknown) (no (unknown) (unknown) Sister (units (unknown) date) Traumatic unknown) amputation (unknown) (no (unknown) (unknown) Slums assessment (units (unknown) date) was performed unknown) earlier this hospitalization with a score of (unknown) (no (unknown) (unknown) Smoking Status: (units (unknown) date) Never smoker unknown) (unknown) (no (unknown) (unknown) Social History (units (unknown) date) (Reviewed 03/30/22 unknown) @ 07:25 by Stephane Gonzalez DO) (unknown) (no (unknown) (unknown) Speech and (units (unk nown) date) language unknown) 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 (09/28/12) (unknown) (no (unknown) (unknown) Status post (units (un known) date) arthroscopy unknown) (unknown) (no (unknown) (unknown) Status post biopsy (units (unknown) date) () unknown) (unknown) (no (unknown) (unknown) Status post breast (units (unknown) date) lumpectomy () unknown) (unknown) (no (unknown) (unknown) Status post (units (un known) date) cholecystectomy unknown) (unknown) (no (unknown) (unknown) 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 (unknown) (no (unknown) (unknown) Status post (units (un known) date) hysterectomy unknown) () (unknown) (no (unknown) (unknown) Subjective (units (unk nown) date) unknown) (unknown) (no (unknown) (unknown) Surgical History (units (unknown) date) (Reviewed 03/30/22 unknown) @ 07:25 by Stephane Gonzalez DO) (unknown) (no (unknown) (unknown) 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, NYHA (unknown) (no (unknown) (unknown) Temperature (units (un known) date) unknown) (unknown) (no (unknown) (unknown) Temperature 98.1 (units (unknown) date) F unknown) (unknown) (no (unknown) (unknown) Time Spent With (units (unknown) date) Patient unknown) (unknown) (no (unknown) (unknown) VTE (units (unkno wn) date) unknown) (unknown) (no (unknown) (unknown) Vital Signs (units (un known) date) unknown) (unknown) (no (unknown) (unknown) [Embedded Image (units (unknown) date) Not Available] unknown) (unknown) (no (unknown) (unknown) admission. (units (unk nown) date) unknown) (unknown) (no (unknown) (unknown) alcohol intake: (units (unknown) date) never unknown) (unknown) (no (unknown) (unknown) class 2 (06/05/11) (units (unknown) date) unknown) (unknown) (no (unknown) (unknown) difficult to (units (u nknown) date) contact and unknown) apparently they have been evicted from apartment. (unknown) (no (unknown) (unknown) discharge on February (units (unknown) date) , but staff unknown) could not get her son on the phone who is her (unknown) (no (unknown) (unknown) does not have (units ( unknown) date) capacity to make unknown) her own healthcare decisions. 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 No symptoms reported (unknown) (no (unknown) (unknown) fibrillation on (units (unknown) date) apixaban, history unknown) of congestive heart failure , hypertension, (unknown) (no (unknown) (unknown) household members: (units (unknown) date) children unknown) (unknown) (no (unknown) (unknown) hyperlipidemia, (units (unknown) date) and prior stroke unknown) who was admitted with chest pain.? Patient (unknown) (no (unknown) (unknown) pending (units (unkno wn) date) guardianship. unknown) (unknown) (no (unknown) (unknown) prior intervention (units (unknown) date) (pt does not recall unknown) what was done).? Low risk nuc this (unknown) (no (unknown) (unknown) referral was made (units (unknown) date) March 18 in light unknown) of ongoing caregiving concerns and is now (unknown) (no (unknown) (unknown) supplementation as (units (unknown) date) tolerated. unknown) Continue multivitamin (unknown) (no (unknown) (unknown) today. Start PPI. (units (unknown) date) unknown) (unknown) (no (unknown) (unknown) today; this time (units (unknown) date) is exclusive of unknown) procedural time. (unknown) (no (unknown) (unknown) underwent stress (units (unknown) date) testing and had a unknown) low risk scan.? She was approved for Result panel 61 (unknown) (no (unknown) (unknown) (no value) (units (unk nown) date) unknown) (unknown) (no (unknown) (unknown) (no value) (units (unk nown) date) unknown) (unknown) (no (unknown) (unknown) Date of Service: (units (unknown) date) 03/18/22 unknown) (unknown) (no (unknown) (unknown) (no value) (units (unk nown) date) unknown) (unknown) (no (unknown) (unknown) - (units (unkno wn) date) unknown) (unknown) (no (unknown) (unknown) 03/31/22 05:50 (units (unknown) date) unknown) (unknown) (no (unknown) (unknown) 04/03/22 1441 (units ( unknown) date) unknown) (unknown) (no (unknown) (unknown) [facility] (units (unknown) date) [address] unknown) [place] [address] (unknown) (no (unknown) (unknown) Progress Note (units ( unknown) date) unknown) (unknown) (no (unknown) (unknown) (no value) (units (unk nown) date) unknown) (unknown) (no (unknown) (unknown) 04/03/22 (units (unkno wn) date) unknown) (unknown) (no (unknown) (unknown) (12/05/17) (units (unk nown) date) unknown) (unknown) (no (unknown) (unknown) (past 8 hours): (units (unknown) date) unknown) (unknown) (no (unknown) (unknown) 07:00 (units (unkno wn) date) unknown) (unknown) (no (unknown) (unknown) 08:34 04/03/22 (units (unknown) date) unknown) (unknown) (no (unknown) (unknown) 09:00 04/03/22 (units (unknown) date) unknown) (unknown) (no (unknown) (unknown) 11:00 04/03/22 (units (unknown) date) unknown) (unknown) (no (unknown) (unknown) 11:24 (units (unkno wn) date) unknown) (unknown) (no (unknown) (unknown) . This is (units (unknown) date) consistent with unknown) dementia. She will need 18/04 supervision. She (unknown) (no (unknown) (unknown) 2. 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 Chronic GERD (units (unknown) date) unknown) (unknown) (no (unknown) (unknown) 5. CHFrEF (units (unkn own) date) unknown) (unknown) (no (unknown) (unknown) 6. Acute severe (units (unknown) date) protein calorie unknown) malnutrition (unknown) (no (unknown) (unknown) 86-year-old female (units (unknown) date) with known coronary unknown) artery disease, permanent atrial (unknown) (no (unknown) (unknown) ? Appears (units (unkn own) date) euvolemic unknown) presently. Patient is on ARB and beta annie therapy. (unknown) (no (unknown) (unknown) ? Remains rate (units (unknown) date) controlled.? Is on unknown) chronic apixaban. (unknown) (no (unknown) (unknown) ? Suspect this (units (unknown) date) could be unknown) contributing to her chest pain.? It may be she has (unknown) (no (unknown) (unknown) ? Uncertain as to (units (unknown) date) her previous unknown) cardiac interventions.? Has a sternal scar from (unknown) (no (unknown) (unknown) ?1. Dementia (units (u nknown) date) unknown) (unknown) (no (unknown) (unknown) ?Code status (units (u nknown) date) unknown) (unknown) (no (unknown) (unknown) ?Disposition (units (u nknown) date) unknown) (unknown) (no (unknown) (unknown) ?Prophylaxis (units (u nknown) date) unknown) (unknown) (no (unknown) (unknown) ABD: Soft, NT ND (units (unknown) date) unknown) (unknown) (no (unknown) (unknown) Abdominal pain (units (unknown) date) unknown) (unknown) (no (unknown) (unknown) Acute pancreatitis (units (unknown) date) unknown) (unknown) (no (unknown) (unknown) Age/Sex: 86 / F (units (unknown) date) unknown) (unknown) (no (unknown) (unknown) Anesthesia (units (unk nown) date) unknown) (unknown) (no (unknown) (unknown) Anticoagulated (units (unknown) date) unknown) (unknown) (no (unknown) (unknown) Anxiety (units (unkno wn) date) unknown) 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 () (unknown) (no (unknown) (unknown) 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 (09/28/12) (unknown) (no (unknown) (unknown) Assessment + Plan (units (unknown) date) unknown) (unknown) (no (unknown) (unknown) Assessment + Plan (units (unknown) date) narrative: unknown) (unknown) (no (unknown) (unknown) Asthma (units (unkno wn) date) unknown) (unknown) (no (unknown) (unknown) Await guardianship (units (unknown) date) and placement unknown) (unknown) (no (unknown) (unknown) Blood Pressure (units (unknown) date) 95/52 L unknown) (unknown) (no (unknown) (unknown) Blood Pressure (units (unknown) date) 151/67 H 151/67 H 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 unknown) (unknown) (no (unknown) (unknown) : 1935 (units (unknown) date) Acct:[id number] unknown) (unknown) (no (unknown) (unknown) Date Patient Seen: (units (unknown) date) 04/03/22 unknown) (unknown) (no (unknown) (unknown) Deep Vein (units (unkn own) date) Thrombosis/Pulmonar unknown) y Embolism Present on Admission: No (unknown) (no (unknown) (unknown) Depression (units (unk nown) date) (emotion) unknown) (unknown) (no (unknown) (unknown) Developmental (units ( unknown) date) disorder unknown) (unknown) (no (unknown) (unknown) Diarrhea (units (unkno wn) date) unknown) (unknown) (no (unknown) (unknown) EXTR: warm, well (units (unknown) date) perfused, no C/C/E unknown) (unknown) (no (unknown) (unknown) Essential (units (unkn own) date) hypertension unknown) (09/28/12) (unknown) (no (unknown) (unknown) Exam (units (unkno wn) date) unknown) (unknown) (no (unknown) (unknown) Exam Narrative: (units (unknown) date) unknown) (unknown) (no (unknown) (unknown) Failure to thrive (units (unknown) date) in adult unknown) (unknown) (no (unknown) (unknown) Family History (units (unknown) date) (Reviewed 03/30/22 unknown) @ 07:25 by Stephane Gonzalez DO) (unknown) (no (unknown) (unknown) Father (units (unknown) date) Myocardial infarct unknown) (unknown) (no (unknown) (unknown) Fibrocystic breast (units (unknown) date) disease unknown) (unknown) (no (unknown) (unknown) Full (units (unkno wn) date) unknown) (unknown) (no (unknown) (unknown) GEN: Drowsy (units (u nknown) date) elderly female, unknown) lying in the hospital room on bed, NAD (unknown) (no (unknown) (unknown) GERD (units (unkno wn) date) (gastroesophageal unknown) reflux disease) (unknown) (no (unknown) (unknown) HEENT:NC, Face (units (unknown) date) symmetric unknown) (unknown) (no (unknown) (unknown) History of colon (units (unknown) date) polyps (09/28/12) unknown) (unknown) (no (unknown) (unknown) History of left (units (unknown) date) breast cancer unknown) (-2008) (unknown) (no (unknown) (unknown) Hyperlipidemia (units (unknown) date) 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) unknown) (unknown) (no (unknown) (unknown) Interval history: (units (unknown) date) unknown) (unknown) (no (unknown) (unknown) Labs (units (unkno wn) date) unknown) (unknown) (no (unknown) (unknown) [id number] (units (unk nown) date) unknown) (unknown) (no (unknown) (unknown) Measles (units (unkno wn) date) unknown) (unknown) (no (unknown) (unknown) Medical History (units (unknown) date) (Reviewed 03/30/22 unknown) @ 07:25 by Stephane Gonzalez DO) 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) (unknown) (no (unknown) (unknown) Mother (units (unknown) date) Maternal unknown) complication related to childbirth (unknown) (no (unknown) (unknown) NEURO: Right (units ( unknown) date) facial droop and unknown) right-sided weakness from previous stroke (unknown) (no (unknown) (unknown) Narrative (units (unkn own) date) unknown) (unknown) (no (unknown) (unknown) Objective (units (unkn own) date) unknown) (unknown) (no (unknown) (unknown) On apixaban (units (un known) date) unknown) (unknown) (no (unknown) (unknown) Osteoarthritis of (units (unknown) date) knees, bilateral unknown) (unknown) (no (unknown) (unknown) Oxygen Delivery (units (unknown) date) Method Room Air unknown) (unknown) (no (unknown) (unknown) Oxygen Delivery (units (unknown) date) Method Room Air unknown) (unknown) (no (unknown) (unknown) Oxygen Delivery (units (unknown) date) Method Room Air unknown) (unknown) (no (unknown) (unknown) Oxygen Flow Rate (units (unknown) date) 0 unknown) (unknown) (no (unknown) (unknown) Oxygen Flow Rate (units (unknown) date) 0 unknown) (unknown) (no (unknown) (unknown) Oxygen Flow Rate (units (unknown) date) 0 unknown) (unknown) (no (unknown) (unknown) PFSH (units (unkno wn) date) unknown) (unknown) (no (unknown) (unknown) POA.? She remained (units (unknown) date) in the hospital unknown) pending his ability to take her home.? APS (unknown) (no (unknown) (unknown) Patient has had a (units (unknown) date) 7.5% weight loss unknown) over the last 3 months.? 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 unknown) (unknown) (no (unknown) (unknown) Pulse Oximetry (units (unknown) date) 100 unknown) (unknown) (no (unknown) (unknown) Pulse Oximetry 98 (units (unknown) date) unknown) (unknown) (no (unknown) (unknown) Pulse Rate 67 (units (unknown) date) unknown) (unknown) (no (unknown) (unknown) Pulse Rate 84 67 (units (unknown) date) unknown) (unknown) (no (unknown) (unknown) Quality (units (unkno wn) date) unknown) (unknown) (no (unknown) (unknown) Reduce losartan, (units (unknown) date) low normal BP unknown) today. (unknown) (no (unknown) (unknown) Respiratory Rate (units (unknown) date) 18 unknown) (unknown) (no (unknown) (unknown) Respiratory Rate (units (unknown) date) 18 unknown) (unknown) (no (unknown) (unknown) Result Diagrams: (units (unknown) date) unknown) (unknown) (no (unknown) (unknown) Result issues: (units (unknown) date) unknown) (unknown) (no (unknown) (unknown) SKIN: warm and (units (unknown) date) dry, no rash unknown) (unknown) (no (unknown) (unknown) Signed (units (unkno wn) date) By:<Electronically unknown) signed by Harvey Cid D.O.> (unknown) (no (unknown) (unknown) Sister (units (unknown) date) Traumatic unknown) amputation (unknown) (no (unknown) (unknown) Slums assessment (units (unknown) date) was performed unknown) earlier this hospitalization with a score of (unknown) (no (unknown) (unknown) Smoking Status: (units (unknown) date) Never smoker unknown) (unknown) (no (unknown) (unknown) Social History (units (unknown) date) (Reviewed 03/30/22 unknown) @ 07:25 by Stephane Gonzalez DO) (unknown) (no (unknown) (unknown) Speech and (units (unk nown) date) language unknown) 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 (09/28/12) (unknown) (no (unknown) (unknown) Status post (units (un known) date) arthroscopy unknown) (unknown) (no (unknown) (unknown) Status post biopsy (units (unknown) date) (-2014) unknown) (unknown) (no (unknown) (unknown) Status post breast (units (unknown) date) lumpectomy () unknown) (unknown) (no (unknown) (unknown) Status post (units (un known) date) cholecystectomy unknown) (unknown) (no (unknown) (unknown) 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 (unknown) (no (unknown) (unknown) Status post (units (un known) date) hysterectomy unknown) () (unknown) (no (unknown) (unknown) Subjective (units (unk nown) date) unknown) (unknown) (no (unknown) (unknown) Surgical History (units (unknown) date) (Reviewed 03/30/22 unknown) @ 07:25 by Stephane Gonzalez DO) (unknown) (no (unknown) (unknown) 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, NYHA (unknown) (no (unknown) (unknown) Temperature (units (un known) date) unknown) (unknown) (no (unknown) (unknown) Temperature 98.1 (units (unknown) date) F unknown) (unknown) (no (unknown) (unknown) Time Spent With (units (unknown) date) Patient unknown) (unknown) (no (unknown) (unknown) VTE (units (unkno wn) date) unknown) (unknown) (no (unknown) (unknown) Vital Signs (units (un known) date) unknown) (unknown) (no (unknown) (unknown) [Embedded Image (units (unknown) date) Not Available] unknown) (unknown) (no (unknown) (unknown) admission. (units (unk nown) date) unknown) (unknown) (no (unknown) (unknown) alcohol intake: (units (unknown) date) never unknown) (unknown) (no (unknown) (unknown) class 2 (06/05/11) (units (unknown) date) unknown) (unknown) (no (unknown) (unknown) difficult to (units (u nknown) date) contact and unknown) apparently they have been evicted from apartment. (unknown) (no (unknown) (unknown) discharge on February (units (unknown) date) , but staff unknown) could not get her son on the phone who is her (unknown) (no (unknown) (unknown) does not have (units ( unknown) date) capacity to make unknown) her own healthcare decisions. 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 No symptoms reported (unknown) (no (unknown) (unknown) fibrillation on (units (unknown) date) apixaban, history unknown) of congestive heart failure , hypertension, (unknown) (no (unknown) (unknown) household members: (units (unknown) date) children unknown) (unknown) (no (unknown) (unknown) hyperlipidemia, (units (unknown) date) and prior stroke unknown) who was admitted with chest pain.? Patient (unknown) (no (unknown) (unknown) pending (units (unkno wn) date) guardianship. unknown) (unknown) (no (unknown) (unknown) prior intervention (units (unknown) date) (pt does not recall unknown) what was done).? Low risk nuc this (unknown) (no (unknown) (unknown) referral was made (units (unknown) date) March 18 in light unknown) of ongoing caregiving concerns and is now (unknown) (no (unknown) (unknown) supplementation as (units (unknown) date) tolerated. unknown) Continue multivitamin (unknown) (no (unknown) (unknown) today. Start PPI. (units (unknown) date) unknown) (unknown) (no (unknown) (unknown) today; this time (units (unknown) date) is exclusive of unknown) procedural time. (unknown) (no (unknown) (unknown) underwent stress (units (unknown) date) testing and had a unknown) low risk scan.? She was approved for Result panel 62 (unknown) (no (unknown) (unknown) (no value) (units (unk nown) date) unknown) (unknown) (no (unknown) (unknown) (no value) (units (unk nown) date) unknown) (unknown) (no (unknown) (unknown) Date of Service: (units (unknown) date) 03/18/22 unknown) (unknown) (no (unknown) (unknown) (no value) (units (unk nown) date) unknown) (unknown) (no (unknown) (unknown) 03/31/22 05:50 (units (unknown) date) unknown) (unknown) (no (unknown) (unknown) 04/04/22 0846 (units ( unknown) date) unknown) (unknown) (no (unknown) (unknown) [facility] (units (unknown) date) [address] unknown) [place] [address] (unknown) (no (unknown) (unknown) Progress Note (units ( unknown) date) unknown) (unknown) (no (unknown) (unknown) (no value) (units (unk nown) date) unknown) (unknown) (no (unknown) (unknown) (12/05/17) (units (unk nown) date) unknown) (unknown) (no (unknown) (unknown) (past 8 hours): (units (unknown) date) unknown) (unknown) (no (unknown) (unknown) . This is (units (unknown) date) consistent with unknown) dementia. She will need 18/04 supervision. She (unknown) (no (unknown) (unknown) 2. 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 Chronic GERD (units (unknown) date) unknown) (unknown) (no (unknown) (unknown) 5. CHFrEF (units (unkn own) date) unknown) (unknown) (no (unknown) (unknown) 6. Acute severe (units (unknown) date) protein calorie unknown) malnutrition (unknown) (no (unknown) (unknown) 86-year-old female (units (unknown) date) with known coronary unknown) artery disease, permanent atrial (unknown) (no (unknown) (unknown) ? Appears (units (unkn own) date) euvolemic unknown) presently. Patient is on ARB and beta annie therapy. (unknown) (no (unknown) (unknown) ? Remains rate (units (unknown) date) controlled.? Is on unknown) chronic apixaban. (unknown) (no (unknown) (unknown) ? Suspect this (units (unknown) date) could be unknown) contributing to her chest pain.? It may be she has (unknown) (no (unknown) (unknown) ? Uncertain as to (units (unknown) date) her previous unknown) cardiac interventions.? Has a sternal scar from (unknown) (no (unknown) (unknown) ?1. Dementia (units (u nknown) date) unknown) (unknown) (no (unknown) (unknown) ?Code status (units (u nknown) date) unknown) (unknown) (no (unknown) (unknown) ?Disposition: (units ( unknown) date) pending placement unknown) (unknown) (no (unknown) (unknown) ?Prophylaxis (units (u nknown) date) unknown) (unknown) (no (unknown) (unknown) ABD: Soft, NT ND (units (unknown) date) unknown) (unknown) (no (unknown) (unknown) Abdominal pain (units (unknown) date) unknown) (unknown) (no (unknown) (unknown) Acute pancreatitis (units (unknown) date) unknown) (unknown) (no (unknown) (unknown) Age/Sex: 86 / F (units (unknown) date) unknown) (unknown) (no (unknown) (unknown) Anesthesia (units (unk nown) date) unknown) (unknown) (no (unknown) (unknown) Anticoagulated (units (unknown) date) unknown) (unknown) (no (unknown) (unknown) Anxiety (units (unkno wn) date) unknown) 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 () (unknown) (no (unknown) (unknown) 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 (09/28/12) (unknown) (no (unknown) (unknown) Assessment + Plan (units (unknown) date) unknown) (unknown) (no (unknown) (unknown) Assessment + Plan (units (unknown) date) narrative: unknown) (unknown) (no (unknown) (unknown) Asthma (units (unkno wn) date) 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 unknown) (unknown) (no (unknown) (unknown) : 1935 (units (unknown) date) Acct:[id number] unknown) (unknown) (no (unknown) (unknown) Date Patient Seen: (units (unknown) date) 04/04/22 unknown) (unknown) (no (unknown) (unknown) Deep Vein (units (unkn own) date) Thrombosis/Pulmonar unknown) y Embolism Present on Admission: No (unknown) (no (unknown) (unknown) Depression (units (unk nown) date) (emotion) unknown) (unknown) (no (unknown) (unknown) Developmental (units ( unknown) date) disorder unknown) (unknown) (no (unknown) (unknown) Diarrhea (units (unkno wn) date) unknown) (unknown) (no (unknown) (unknown) EXTR: warm, well (units (unknown) date) perfused, no C/C/E unknown) (unknown) (no (unknown) (unknown) Essential (units (unkn own) date) hypertension unknown) (09/28/12) (unknown) (no (unknown) (unknown) Exam (units (unkno wn) date) unknown) (unknown) (no (unknown) (unknown) Exam Narrative: (units (unknown) date) unknown) (unknown) (no (unknown) (unknown) Failure to thrive (units (unknown) date) in adult unknown) (unknown) (no (unknown) (unknown) Family History (units (unknown) date) (Reviewed 03/30/22 unknown) @ 07:25 by Stephane Gonzalez DO) (unknown) (no (unknown) (unknown) Father (units (unknown) date) Myocardial infarct unknown) (unknown) (no (unknown) (unknown) Fibrocystic breast (units (unknown) date) disease unknown) (unknown) (no (unknown) (unknown) Full (units (unkno wn) date) unknown) (unknown) (no (unknown) (unknown) GEN: Drowsy (units (u nknown) date) elderly female, unknown) lying in the hospital room on bed, NAD (unknown) (no (unknown) (unknown) GERD (units (unkno wn) date) (gastroesophageal unknown) reflux disease) (unknown) (no (unknown) (unknown) HEENT:NC, Face (units (unknown) date) symmetric unknown) (unknown) (no (unknown) (unknown) History of colon (units (unknown) date) polyps (09/28/12) unknown) (unknown) (no (unknown) (unknown) History of left (units (unknown) date) breast cancer unknown) () (unknown) (no (unknown) (unknown) Hyperlipidemia (units (unknown) date) 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) unknown) (unknown) (no (unknown) (unknown) Interval history: (units (unknown) date) unknown) (unknown) (no (unknown) (unknown) Labs (units (unkno wn) date) unknown) (unknown) (no (unknown) (unknown) [id number] (units (unk nown) date) unknown) (unknown) (no (unknown) (unknown) Measles (units (unkno wn) date) unknown) (unknown) (no (unknown) (unknown) Medical History (units (unknown) date) (Reviewed 03/30/22 unknown) @ 07:25 by Stephane Gonzalez DO) 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) (unknown) (no (unknown) (unknown) Mother (units (unknown) date) Maternal unknown) complication related to childbirth (unknown) (no (unknown) (unknown) NEURO: Right (units ( unknown) date) facial droop and unknown) right-sided weakness from previous stroke (unknown) (no (unknown) (unknown) Narrative (units (unkn own) date) unknown) (unknown) (no (unknown) (unknown) Objective (units (unkn own) date) unknown) (unknown) (no (unknown) (unknown) On apixaban (units (un known) date) unknown) (unknown) (no (unknown) (unknown) Osteoarthritis of (units (unknown) date) knees, bilateral unknown) (unknown) (no (unknown) (unknown) Oxygen Delivery (units (unknown) date) Method Room Air unknown) (unknown) (no (unknown) (unknown) Oxygen Flow Rate (units (unknown) date) 0 unknown) (unknown) (no (unknown) (unknown) PFSH (units (unkno wn) date) unknown) (unknown) (no (unknown) (unknown) POA.? She remained (units (unknown) date) in the hospital unknown) pending his ability to take her home.? APS (unknown) (no (unknown) (unknown) Patient has had a (units (unknown) date) 7.5% weight loss unknown) over the last 3 months.? 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 unknown) (unknown) (no (unknown) (unknown) Quality (units (unkno wn) date) unknown) (unknown) (no (unknown) (unknown) Reduced losartan, (units (unknown) date) with improved BP unknown) today. (unknown) (no (unknown) (unknown) Result Diagrams: (units (unknown) date) unknown) (unknown) (no (unknown) (unknown) Result issues: (units (unknown) date) unknown) (unknown) (no (unknown) (unknown) SKIN: warm and (units (unknown) date) dry, no rash unknown) (unknown) (no (unknown) (unknown) Signed (units (unkno wn) date) By:<Electronically unknown) signed by Harvey Cid D.O.> (unknown) (no (unknown) (unknown) Sister (units (unknown) date) Traumatic unknown) amputation (unknown) (no (unknown) (unknown) Slums assessment (units (unknown) date) was performed unknown) earlier this hospitalization with a score of (unknown) (no (unknown) (unknown) Smoking Status: (units (unknown) date) Never smoker unknown) (unknown) (no (unknown) (unknown) Social History (units (unknown) date) (Reviewed 03/30/22 unknown) @ 07:25 by Stephane Gonzalez DO) (unknown) (no (unknown) (unknown) Speech and (units (unk nown) date) language unknown) 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 (09/28/12) (unknown) (no (unknown) (unknown) Status post (units (un known) date) arthroscopy unknown) (unknown) (no (unknown) (unknown) Status post biopsy (units (unknown) date) (-2014) unknown) (unknown) (no (unknown) (unknown) Status post breast (units (unknown) date) lumpectomy (-2008) unknown) (unknown) (no (unknown) (unknown) Status post (units (un known) date) cholecystectomy unknown) (unknown) (no (unknown) (unknown) 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 (unknown) (no (unknown) (unknown) Status post (units (un known) date) hysterectomy unknown) (-2009) (unknown) (no (unknown) (unknown) Subjective (units (unk nown) date) unknown) (unknown) (no (unknown) (unknown) Surgical History (units (unknown) date) (Reviewed 03/30/22 unknown) @ 07:25 by Stephane Gonzalez DO) (unknown) (no (unknown) (unknown) 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 (units (unk nown) date) unknown) (unknown) (no (unknown) (unknown) alcohol intake: (units (unknown) date) never unknown) (unknown) (no (unknown) (unknown) class 2 (06/05/11) (units (unknown) date) unknown) (unknown) (no (unknown) (unknown) difficult to (units (u nknown) date) contact and unknown) apparently they have been evicted from apartment. (unknown) (no (unknown) (unknown) discharge on February (units (unknown) date) , but staff unknown) could not get her son on the phone who is her (unknown) (no (unknown) (unknown) does not have (units ( unknown) date) capacity to make unknown) her own healthcare decisions. 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 No symptoms reported (unknown) (no (unknown) (unknown) fibrillation on (units (unknown) date) apixaban, history unknown) of congestive heart failure , hypertension, (unknown) (no (unknown) (unknown) household members: (units (unknown) date) children unknown) (unknown) (no (unknown) (unknown) hyperlipidemia, (units (unknown) date) and prior stroke unknown) who was admitted with chest pain.? Patient (unknown) (no (unknown) (unknown) prior intervention (units (unknown) date) (pt does not recall unknown) what was done).? Low risk nuc this (unknown) (no (unknown) (unknown) referral was made (units (unknown) date) March 18 in light unknown) of ongoing caregiving concerns (unknown) (no (unknown) (unknown) supplementation as (units (unknown) date) tolerated. unknown) Continue multivitamin (unknown) (no (unknown) (unknown) today. Started (units (unknown) date) PPI. unknown) (unknown) (no (unknown) (unknown) today; this time (units (unknown) date) is exclusive of unknown) procedural time. (unknown) (no (unknown) (unknown) underwent stress (units (unknown) date) testing and had a unknown) low risk scan.? She was approved for Result panel 63 (unknown) (no (unknown) (unknown) (no value) (units (unk nown) date) unknown) (unknown) (no (unknown) (unknown) Date of Service: (units (unknown) date) 03/18/22 unknown) (unknown) (no (unknown) (unknown) (no value) (units (unk nown) date) unknown) (unknown) (no (unknown) (unknown) - (units (unkno wn) date) unknown) (unknown) (no (unknown) (unknown) 03/31/22 05:50 (units (unknown) date) unknown) (unknown) (no (unknown) (unknown) 04/05/22 1613 (units ( unknown) date) unknown) (unknown) (no (unknown) (unknown) [facility] (units (unknown) date) [address] unknown) [place] [id number] (unknown) (no (unknown) (unknown) Progress Note (units ( unknown) date) unknown) (unknown) (no (unknown) (unknown) (no value) (units (unk nown) date) unknown) (unknown) (no (unknown) (unknown) 04/05/22 (units (unkno wn) date) unknown) (unknown) (no (unknown) (unknown) in her best (units (un known) date) interest given her unknown) dementia and Slums of . This indicates (unknown) (no (unknown) (unknown) (12/05/17) (units (unk nown) date) unknown) (unknown) (no (unknown) (unknown) (past 8 hours): (units (unknown) date) unknown) (unknown) (no (unknown) (unknown) 08:30 04/05/22 (units (unknown) date) unknown) (unknown) (no (unknown) (unknown) 11:00 (units (unkno wn) date) unknown) (unknown) (no (unknown) (unknown) .? This is (units (unknown) date) consistent with unknown) dementia.? She will need 18/04 supervision.? She (unknown) (no (unknown) (unknown) 2. 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 Chronic GERD (units (unknown) date) unknown) (unknown) (no (unknown) (unknown) 5. CHFrEF (units (unkn own) date) unknown) (unknown) (no (unknown) (unknown) 6. Acute severe (units (unknown) date) protein calorie unknown) malnutrition (unknown) (no (unknown) (unknown) 86 y/o female (units ( unknown) date) admitted for chest unknown) pain with dementia awaiting placement. Patient (unknown) (no (unknown) (unknown) ? Appears (units (unkn own) date) euvolemic unknown) presently. Patient is on ARB and beta annie therapy. (unknown) (no (unknown) (unknown) ? Remains rate (units (unknown) date) controlled.? Is on unknown) chronic apixaban. (unknown) (no (unknown) (unknown) ? Suspect this (units (unknown) date) could be unknown) contributing to her chest pain.? It may be she has (unknown) (no (unknown) (unknown) ? Uncertain as to (units (unknown) date) her previous unknown) cardiac interventions.? Has a sternal scar from (unknown) (no (unknown) (unknown) ?Code status (units (u nknown) date) unknown) (unknown) (no (unknown) (unknown) ?Disposition: (units ( unknown) date) pending placement unknown) (unknown) (no (unknown) (unknown) ?Prophylaxis (units (u nknown) date) unknown) (unknown) (no (unknown) (unknown) Abd: soft/ non (units (unknown) date) tender/ unknown) nondistended (unknown) (no (unknown) (unknown) Abdominal pain (units (unknown) date) unknown) (unknown) (no (unknown) (unknown) Acute pancreatitis (units (unknown) date) unknown) (unknown) (no (unknown) (unknown) Age/Sex: 86 / F (units (unknown) date) unknown) (unknown) (no (unknown) (unknown) Anesthesia (units (unk nown) date) unknown) (unknown) (no (unknown) (unknown) Anticoagulated (units (unknown) date) unknown) (unknown) (no (unknown) (unknown) Anxiety (units (unkno wn) date) unknown) 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 () (unknown) (no (unknown) (unknown) 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 (09/28/12) (unknown) (no (unknown) (unknown) Assessment + Plan (units (unknown) date) unknown) (unknown) (no (unknown) (unknown) Assessment + Plan (units (unknown) date) narrative: unknown) (unknown) (no (unknown) (unknown) Asthma (units (unkno wn) date) unknown) (unknown) (no (unknown) (unknown) Blood Pressure (units (unknown) date) 105/59 L 102/62 unknown) (unknown) (no (unknown) (unknown) Breast cancer (units ( unknown) date) (-2001) unknown) (unknown) (no (unknown) (unknown) 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) unknown) (unknown) (no (unknown) (unknown) CV: RRR nl Sl S2 (units (unknown) date) 2/6 ENRICO unknown) (unknown) (no (unknown) (unknown) Calcified nodule (units (unknown) date) unknown) (unknown) (no (unknown) (unknown) Cardio (units (unkno wn) date) unknown) (unknown) (no (unknown) (unknown) 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 (unknown) (no (unknown) (unknown) Cervical cancer, (units (unknown) date) FIGO stage I unknown) (unknown) (no (unknown) (unknown) Chest pain, ruled (units (unknown) date) out for myocardial unknown) infarction, low risk stress test (unknown) (no (unknown) (unknown) Cholelithiasis (units (unknown) date) unknown) (unknown) (no (unknown) (unknown) Chronic back pain (units (unknown) date) unknown) (unknown) (no (unknown) (unknown) Confused elderly (units (unknown) date) female lying in bed unknown) (unknown) (no (unknown) (unknown) Critical Care (units ( unknown) date) time: unknown) (unknown) (no (unknown) (unknown) Currently pending (units (unknown) date) placement. unknown) (unknown) (no (unknown) (unknown) : 1935 (units (unknown) date) Acct:[id number] unknown) (unknown) (no (unknown) (unknown) Date Patient Seen: (units (unknown) date) 04/05/22 unknown) (unknown) (no (unknown) (unknown) Deep Vein (units (unkn own) date) Thrombosis/Pulmonar unknown) y Embolism Present on Admission: No (unknown) (no (unknown) (unknown) Dementia (units (unkno wn) date) unknown) (unknown) (no (unknown) (unknown) Depression (units (unk nown) date) (emotion) unknown) (unknown) (no (unknown) (unknown) Developmental (units ( unknown) date) disorder unknown) (unknown) (no (unknown) (unknown) Diarrhea (units (unkno wn) date) unknown) (unknown) (no (unknown) (unknown) Essential (units (unkn own) date) hypertension unknown) (09/28/12) (unknown) (no (unknown) (unknown) Exam (units (unkno wn) date) unknown) (unknown) (no (unknown) (unknown) Exam Narrative: (units (unknown) date) unknown) (unknown) (no (unknown) (unknown) Extrem (units (unkno wn) date) unknown) (unknown) (no (unknown) (unknown) Failure to thrive (units (unknown) date) in adult unknown) (unknown) (no (unknown) (unknown) Family History (units (unknown) date) (Reviewed 03/30/22 unknown) @ 07:25 by Stephane Gonzalez DO) (unknown) (no (unknown) (unknown) Father (units (unknown) date) Myocardial infarct unknown) (unknown) (no (unknown) (unknown) Fibrocystic breast (units (unknown) date) disease unknown) (unknown) (no (unknown) (unknown) Full (units (unkno wn) date) unknown) (unknown) (no (unknown) (unknown) GERD (units (unkno wn) date) (gastroesophageal unknown) reflux disease) (unknown) (no (unknown) (unknown) GI (units (unkno wn) date) unknown) (unknown) (no (unknown) (unknown) History of colon (units (unknown) date) polyps (09/28/12) unknown) (unknown) (no (unknown) (unknown) History of left (units (unknown) date) breast cancer unknown) (-2008) (unknown) (no (unknown) (unknown) Hyperlipidemia (units (unknown) date) 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) unknown) (unknown) (no (unknown) (unknown) Interval history: (units (unknown) date) unknown) (unknown) (no (unknown) (unknown) Labs (units (unkno wn) date) unknown) (unknown) (no (unknown) (unknown) Lungs: clear to (units (unknown) date) auscultation unknown) (unknown) (no (unknown) (unknown) [id number] (units (unk nown) date) unknown) (unknown) (no (unknown) (unknown) Measles (units (unkno wn) date) unknown) (unknown) (no (unknown) (unknown) Medical History (units (unknown) date) (Reviewed 03/30/22 unknown) @ 07:25 by Stephane Gonzalez DO) 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 unknown) () (unknown) (no (unknown) (unknown) Mother (units (unknown) date) Maternal unknown) complication related to childbirth (unknown) (no (unknown) (unknown) Narrative (units (unkn own) date) unknown) (unknown) (no (unknown) (unknown) Objective (units (unkn own) date) unknown) (unknown) (no (unknown) (unknown) On apixaban (units (un known) date) unknown) (unknown) (no (unknown) (unknown) Osteoarthritis of (units (unknown) date) knees, bilateral unknown) (unknown) (no (unknown) (unknown) Other: (units (unkno wn) date) unknown) (unknown) (no (unknown) (unknown) Oxygen Delivery (units (unknown) date) Method Room Air unknown) (unknown) (no (unknown) (unknown) Oxygen Delivery (units (unknown) date) Method Room Air unknown) (unknown) (no (unknown) (unknown) Oxygen Flow Rate (units (unknown) date) 0 unknown) (unknown) (no (unknown) (unknown) Oxygen Flow Rate 0 (units (unknown) date) unknown) (unknown) (no (unknown) (unknown) PFSH (units (unkno wn) date) unknown) (unknown) (no (unknown) (unknown) Patient does not (units (unknown) date) appear decisional. unknown) She does not have capacity to make decisions (unknown) (no (unknown) (unknown) Patient has had a (units (unknown) date) 7.5% weight loss unknown) over the last 3 months.? 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 (unknown) (no (unknown) (unknown) Resp (units (unkno wn) date) unknown) (unknown) (no (unknown) (unknown) Respiratory Rate (units (unknown) date) 16 unknown) (unknown) (no (unknown) (unknown) Result Diagrams: (units (unknown) date) unknown) (unknown) (no (unknown) (unknown) Result issues: (units (unknown) date) unknown) (unknown) (no (unknown) (unknown) Signed (units (unkno wn) date) By:<Electronically unknown) signed by Sandra Carrizales MD> (unknown) (no (unknown) (unknown) Sister (units (unknown) date) Traumatic unknown) amputation (unknown) (no (unknown) (unknown) Slums assessment (units (unknown) date) was performed unknown) earlier this hospitalization with a score of (unknown) (no (unknown) (unknown) Smoking Status: (units (unknown) date) Never smoker unknown) (unknown) (no (unknown) (unknown) Social History (units (unknown) date) (Reviewed 03/30/22 unknown) @ 07:25 by Stephane Gonzalez DO) (unknown) (no (unknown) (unknown) Speech and (units (unk nown) date) language unknown) 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 (09/28/12) (unknown) (no (unknown) (unknown) Status post (units (un known) date) arthroscopy unknown) (unknown) (no (unknown) (unknown) Status post biopsy (units (unknown) date) () unknown) (unknown) (no (unknown) (unknown) Status post breast (units (unknown) date) lumpectomy () unknown) (unknown) (no (unknown) (unknown) Status post (units (un known) date) cholecystectomy unknown) (unknown) (no (unknown) (unknown) 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 (unknown) (no (unknown) (unknown) Status post (units (un known) date) hysterectomy unknown) () (unknown) (no (unknown) (unknown) Subjective (units (unk nown) date) unknown) (unknown) (no (unknown) (unknown) Surgical History (units (unknown) date) (Reviewed 03/30/22 unknown) @ 07:25 by Stephane Gonzalez DO) (unknown) (no (unknown) (unknown) 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 (units (unk nown) date) unknown) (unknown) (no (unknown) (unknown) alcohol intake: (units (unknown) date) never unknown) (unknown) (no (unknown) (unknown) class 2 (06/05/11) (units (unknown) date) unknown) (unknown) (no (unknown) (unknown) difficult to (units (u nknown) date) contact and unknown) apparently they have been evicted from apartment.? (unknown) (no (unknown) (unknown) does not have (units ( unknown) date) capacity to make unknown) her own healthcare decisions.? 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 No symptoms reported (unknown) (no (unknown) (unknown) household members: (units (unknown) date) children unknown) (unknown) (no (unknown) (unknown) no edema (units (unkno wn) date) unknown) (unknown) (no (unknown) (unknown) prior intervention (units (unknown) date) (pt does not recall unknown) what was done).? Low risk nuc this (unknown) (no (unknown) (unknown) reports abdominal (units (unknown) date) pain, She states unknown) she has had it for 3-4 years. (unknown) (no (unknown) (unknown) severe cognitive (units (unknown) date) impairment. unknown) (unknown) (no (unknown) (unknown) supplementation as (units (unknown) date) tolerated.? unknown) Continue multivitamin (unknown) (no (unknown) (unknown) today. Started (units (unknown) date) PPI. unknown) (unknown) (no (unknown) (unknown) today; this time (units (unknown) date) is exclusive of unknown) procedural time. Result panel 64 (unknown) (no (unknown) (unknown) (no value) (units (unk nown) date) unknown) (unknown) (no (unknown) (unknown) Date of Service: (units (unknown) date) 03/18/22 unknown) (unknown) (no (unknown) (unknown) (no value) (units (unk nown) date) unknown) (unknown) (no (unknown) (unknown) - (units (unkno wn) date) unknown) (unknown) (no (unknown) (unknown) 03/31/22 05:50 (units (unknown) date) unknown) (unknown) (no (unknown) (unknown) [facility] (units (unknown) date) [address] unknown) [place] [address] (unknown) (no (unknown) (unknown) Progress Note (units ( unknown) date) unknown) (unknown) (no (unknown) (unknown) (no value) (units (unk nown) date) unknown) (unknown) (no (unknown) (unknown) 04/06/22 (units (unkno wn) date) unknown) (unknown) (no (unknown) (unknown) patient has (units (un known) date) cognitive ability unknown) for medical decisions but not complex medical (unknown) (no (unknown) (unknown) (12/05/17) (units (unk nown) date) unknown) (unknown) (no (unknown) (unknown) (past 8 hours): (units (unknown) date) unknown) (unknown) (no (unknown) (unknown) 07:50 04/06/22 (units (unknown) date) unknown) (unknown) (no (unknown) (unknown) 11:00 (units (unkno wn) date) unknown) (unknown) (no (unknown) (unknown) .? This is (units (unknown) date) consistent with unknown) dementia.? According to psychiatry consultation, (unknown) (no (unknown) (unknown) 2. 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 Chronic GERD (units (unknown) date) unknown) (unknown) (no (unknown) (unknown) 5. CHFrEF (units (unkn own) date) unknown) (unknown) (no (unknown) (unknown) 6. Acute severe (units (unknown) date) protein calorie unknown) malnutrition (unknown) (no (unknown) (unknown) 86 y/o female (units ( unknown) date) admitted for chest unknown) pain with dementia awaiting placement. Patient (unknown) (no (unknown) (unknown) ? Appears (units (unkn own) date) euvolemic unknown) presently. Patient is on ARB and beta annie therapy. (unknown) (no (unknown) (unknown) ? Remains rate (units (unknown) date) controlled.? Is on unknown) chronic apixaban. (unknown) (no (unknown) (unknown) ? Suspect this (units (unknown) date) could be unknown) contributing to her chest pain.? It may be she has (unknown) (no (unknown) (unknown) ? Uncertain as to (units (unknown) date) her previous unknown) cardiac interventions.? Has a sternal scar from (unknown) (no (unknown) (unknown) ?Code status (units (u nknown) date) unknown) (unknown) (no (unknown) (unknown) ?Disposition: (units ( unknown) date) pending placement unknown) (unknown) (no (unknown) (unknown) ?Prophylaxis (units (u nknown) date) unknown) (unknown) (no (unknown) (unknown) ABD: Soft, NT ND (units (unknown) date) unknown) (unknown) (no (unknown) (unknown) Abdominal pain (units (unknown) date) unknown) (unknown) (no (unknown) (unknown) Acute pancreatitis (units (unknown) date) unknown) (unknown) (no (unknown) (unknown) Age/Sex: 86 / F (units (unknown) date) unknown) (unknown) (no (unknown) (unknown) Anesthesia (units (unk nown) date) unknown) (unknown) (no (unknown) (unknown) Anticoagulated (units (unknown) date) unknown) (unknown) (no (unknown) (unknown) Anxiety (units (unkno wn) date) unknown) 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 () (unknown) (no (unknown) (unknown) 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 (09/28/12) (unknown) (no (unknown) (unknown) Assessment + Plan (units (unknown) date) unknown) (unknown) (no (unknown) (unknown) Assessment + Plan (units (unknown) date) narrative: unknown) (unknown) (no (unknown) (unknown) Asthma (units (unkno wn) date) unknown) (unknown) (no (unknown) (unknown) Blood Pressure (units (unknown) date) 138/70 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 (unknown) (no (unknown) (unknown) Cervical cancer, (units (unknown) date) FIGO stage I unknown) (unknown) (no (unknown) (unknown) Chest pain, ruled (units (unknown) date) out for myocardial unknown) infarction, low risk stress test (unknown) (no (unknown) (unknown) Cholelithiasis (units (unknown) date) unknown) (unknown) (no (unknown) (unknown) Chronic back pain (units (unknown) date) unknown) (unknown) (no (unknown) (unknown) Critical Care (units ( unknown) date) time: unknown) (unknown) (no (unknown) (unknown) : 1935 (units (unknown) date) Acct:[id number] unknown) (unknown) (no (unknown) (unknown) Date Patient Seen: (units (unknown) date) 04/06/22 unknown) (unknown) (no (unknown) (unknown) Deep Vein (units (unkn own) date) Thrombosis/Pulmonar unknown) y Embolism Present on Admission: No (unknown) (no (unknown) (unknown) Dementia (units (unkno wn) date) unknown) (unknown) (no (unknown) (unknown) Depression (units (unk nown) date) (emotion) unknown) (unknown) (no (unknown) (unknown) Developmental (units ( unknown) date) disorder unknown) (unknown) (no (unknown) (unknown) Diarrhea (units (unkno wn) date) unknown) (unknown) (no (unknown) (unknown) EXTR: warm, well (units (unknown) date) perfused, no C/C/E unknown) (unknown) (no (unknown) (unknown) Essential (units (unkn own) date) hypertension unknown) (09/28/12) (unknown) (no (unknown) (unknown) Exam (units (unkno wn) date) unknown) (unknown) (no (unknown) (unknown) Exam Narrative: (units (unknown) date) unknown) (unknown) (no (unknown) (unknown) Failure to thrive (units (unknown) date) in adult unknown) (unknown) (no (unknown) (unknown) Family History (units (unknown) date) (Reviewed 03/30/22 unknown) @ 07:25 by Stephane Gonzalez DO) (unknown) (no (unknown) (unknown) Father (units (unknown) date) Myocardial infarct unknown) (unknown) (no (unknown) (unknown) Fibrocystic breast (units (unknown) date) disease unknown) (unknown) (no (unknown) (unknown) Full (units (unkno wn) date) unknown) (unknown) (no (unknown) (unknown) GEN: Elderly (units ( unknown) date) female, no acute unknown) distress (unknown) (no (unknown) (unknown) GERD (units (unkno wn) date) (gastroesophageal unknown) reflux disease) (unknown) (no (unknown) (unknown) HEENT: NCAT, MMM (units (unknown) date) unknown) (unknown) (no (unknown) (unknown) History of colon (units (unknown) date) polyps (09/28/12) unknown) (unknown) (no (unknown) (unknown) History of left (units (unknown) date) breast cancer unknown) (-2008) (unknown) (no (unknown) (unknown) Hyperlipidemia (units (unknown) date) 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) unknown) (unknown) (no (unknown) (unknown) Interval history: (units (unknown) date) unknown) (unknown) (no (unknown) (unknown) Labs (units (unkno wn) date) unknown) (unknown) (no (unknown) (unknown) [id number] (units (unk nown) date) unknown) (unknown) (no (unknown) (unknown) Measles (units (unkno wn) date) unknown) (unknown) (no (unknown) (unknown) Medical History (units (unknown) date) (Reviewed 03/30/22 unknown) @ 07:25 by Stephane Gonzalez DO) 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 unknown) () (unknown) (no (unknown) (unknown) Mother (units (unknown) date) Maternal unknown) complication related to childbirth (unknown) (no (unknown) (unknown) NEURO: Right (units ( unknown) date) facial droop and unknown) right-sided weakness from previous stroke, alert (unknown) (no (unknown) (unknown) Narrative (units (unkn own) date) unknown) (unknown) (no (unknown) (unknown) Objective (units (unkn own) date) unknown) (unknown) (no (unknown) (unknown) On apixaban (units (un known) date) unknown) (unknown) (no (unknown) (unknown) Osteoarthritis of (units (unknown) date) knees, bilateral unknown) (unknown) (no (unknown) (unknown) Oxygen Delivery (units (unknown) date) Method Room Air unknown) (unknown) (no (unknown) (unknown) Oxygen Delivery (units (unknown) date) Method Room Air unknown) (unknown) (no (unknown) (unknown) Oxygen Flow Rate (units (unknown) date) 0 unknown) (unknown) (no (unknown) (unknown) Oxygen Flow Rate 0 (units (unknown) date) unknown) (unknown) (no (unknown) (unknown) PFSH (units (unkno wn) date) unknown) (unknown) (no (unknown) (unknown) Patient has had a (units (unknown) date) 7.5% weight loss unknown) over the last 3 months.? 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 unknown) (unknown) (no (unknown) (unknown) Pulse Oximetry 97 (units (unknown) date) 95 unknown) (unknown) (no (unknown) (unknown) Pulse Rate 79 (units ( unknown) date) unknown) (unknown) (no (unknown) (unknown) Quality (units (unkno wn) date) unknown) (unknown) (no (unknown) (unknown) Reduced losartan, (units (unknown) date) with improved BP unknown) today. (unknown) (no (unknown) (unknown) Respiratory Rate (units (unknown) date) 16 unknown) (unknown) (no (unknown) (unknown) Result Diagrams: (units (unknown) date) unknown) (unknown) (no (unknown) (unknown) Result issues: (units (unknown) date) unknown) (unknown) (no (unknown) (unknown) SKIN: warm and (units (unknown) date) dry, no rash unknown) (unknown) (no (unknown) (unknown) Signed By: (units (unk nown) date) unknown) (unknown) (no (unknown) (unknown) Sister (units (unknown) date) Traumatic unknown) amputation (unknown) (no (unknown) (unknown) Slums assessment (units (unknown) date) was performed unknown) earlier this hospitalization with a score of (unknown) (no (unknown) (unknown) Smoking Status: (units (unknown) date) Never smoker unknown) (unknown) (no (unknown) (unknown) Social History (units (unknown) date) (Reviewed 03/30/22 unknown) @ 07:25 by Stephane Gonzalez DO) (unknown) (no (unknown) (unknown) Speech and (units (unk nown) date) language unknown) 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 (09/28/12) (unknown) (no (unknown) (unknown) Status post (units (un known) date) arthroscopy unknown) (unknown) (no (unknown) (unknown) Status post biopsy (units (unknown) date) (-2014) unknown) (unknown) (no (unknown) (unknown) Status post breast (units (unknown) date) lumpectomy () unknown) (unknown) (no (unknown) (unknown) Status post (units (un known) date) cholecystectomy unknown) (unknown) (no (unknown) (unknown) 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 (unknown) (no (unknown) (unknown) Status post (units (un known) date) hysterectomy unknown) () (unknown) (no (unknown) (unknown) Subjective (units (unk nown) date) unknown) (unknown) (no (unknown) (unknown) Surgical History (units (unknown) date) (Reviewed 03/30/22 unknown) @ 07:25 by Stephane Gonzalez DO) (unknown) (no (unknown) (unknown) 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 (units (unk nown) date) unknown) (unknown) (no (unknown) (unknown) alcohol intake: (units (unknown) date) never unknown) (unknown) (no (unknown) (unknown) and oriented to (units (unknown) date) name, place, and unknown) approximate date (March 2022) (unknown) (no (unknown) (unknown) class 2 (06/05/11) (units (unknown) date) unknown) (unknown) (no (unknown) (unknown) decisions (units (unkn own) date) unknown) (unknown) (no (unknown) (unknown) esophageal spasm (units (unknown) date) that is responsive unknown) to nitroglycerin.? No symptoms reported (unknown) (no (unknown) (unknown) her dog will not (units (unknown) date) be able to live unknown) with her. (unknown) (no (unknown) (unknown) household members: (units (unknown) date) children unknown) (unknown) (no (unknown) (unknown) is here because (units (unknown) date) she cannot go home unknown) because her son was evicted. She understands (unknown) (no (unknown) (unknown) prior intervention (units (unknown) date) (pt does not recall unknown) what was done).? Low risk nuc this (unknown) (no (unknown) (unknown) reports facial (units ( unknown) date) pain, which she unknown) states is chronic. She reiterates to me today she (unknown) (no (unknown) (unknown) supplementation as (units (unknown) date) tolerated.? unknown) Continue multivitamin (unknown) (no (unknown) (unknown) that we are (units (un known) date) working to find unknown) somewhere for her to go. She is agreeable to go (unknown) (no (unknown) (unknown) there, though she (units (unknown) date) asks to be able to unknown) at least visit her dog but realizes that (unknown) (no (unknown) (unknown) today. Started (units (unknown) date) PPI. unknown) (unknown) (no (unknown) (unknown) today; this time (units (unknown) date) is exclusive of unknown) procedural time. Result panel 65 (unknown) (no (unknown) (unknown) (no value) (units (unk nown) date) unknown) (unknown) (no (unknown) (unknown) Date of Service: (units (unknown) date) 03/18/22 unknown) (unknown) (no (unknown) (unknown) (no value) (units (unk nown) date) unknown) (unknown) (no (unknown) (unknown) - (units (unkno wn) date) unknown) (unknown) (no (unknown) (unknown) 03/31/22 05:50 (units (unknown) date) unknown) (unknown) (no (unknown) (unknown) [facility] (units (unknown) date) [address] unknown) [place] [address] (unknown) (no (unknown) (unknown) Progress Note (units ( unknown) date) unknown) (unknown) (no (unknown) (unknown) (no value) (units (unk nown) date) unknown) (unknown) (no (unknown) (unknown) 04/06/22 (units (unkno wn) date) unknown) (unknown) (no (unknown) (unknown) patient has (units (un known) date) cognitive ability unknown) for some medical decisions but not complex (unknown) (no (unknown) (unknown) situation and (units ( unknown) date) appears to be able unknown) to make a decision regarding placement at this (unknown) (no (unknown) (unknown) time. (units (unkno wn) date) unknown) (unknown) (no (unknown) (unknown) (12/05/17) (units (unk nown) date) unknown) (unknown) (no (unknown) (unknown) (past 8 hours): (units (unknown) date) unknown) (unknown) (no (unknown) (unknown) 07:50 04/06/22 (units (unknown) date) unknown) (unknown) (no (unknown) (unknown) 1. Dementia (units (un known) date) unknown) (unknown) (no (unknown) (unknown) 11:00 (units (unkno wn) date) unknown) (unknown) (no (unknown) (unknown) .? This is (units (unknown) date) consistent with unknown) dementia.? According to psychiatry consultation, (unknown) (no (unknown) (unknown) 2. 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 Chronic GERD (units (unknown) date) unknown) (unknown) (no (unknown) (unknown) 5. CHFrEF (units (unkn own) date) unknown) (unknown) (no (unknown) (unknown) 6. Acute severe (units (unknown) date) protein calorie unknown) malnutrition (unknown) (no (unknown) (unknown) 86 y/o female (units ( unknown) date) admitted for chest unknown) pain with dementia awaiting placement. Patient (unknown) (no (unknown) (unknown) ? Appears (units (unkn own) date) euvolemic unknown) presently. Patient is on ARB and beta annie therapy. (unknown) (no (unknown) (unknown) ? Remains rate (units (unknown) date) controlled.? Is on unknown) chronic apixaban. (unknown) (no (unknown) (unknown) ? Suspect this (units (unknown) date) could be unknown) contributing to her chest pain.? It may be she has (unknown) (no (unknown) (unknown) ? Uncertain as to (units (unknown) date) her previous unknown) cardiac interventions.? Has a sternal scar from (unknown) (no (unknown) (unknown) ?Code status (units (u nknown) date) unknown) (unknown) (no (unknown) (unknown) ?Disposition: (units ( unknown) date) pending placement unknown) (unknown) (no (unknown) (unknown) ?Prophylaxis (units (u nknown) date) unknown) (unknown) (no (unknown) (unknown) ABD: Soft, NT ND (units (unknown) date) unknown) (unknown) (no (unknown) (unknown) Abdominal pain (units (unknown) date) unknown) (unknown) (no (unknown) (unknown) Acute pancreatitis (units (unknown) date) unknown) (unknown) (no (unknown) (unknown) Age/Sex: 86 / F (units (unknown) date) unknown) (unknown) (no (unknown) (unknown) Anesthesia (units (unk nown) date) unknown) (unknown) (no (unknown) (unknown) Anticoagulated (units (unknown) date) unknown) (unknown) (no (unknown) (unknown) Anxiety (units (unkno wn) date) unknown) 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) (unknown) (no (unknown) (unknown) 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 (09/28/12) (unknown) (no (unknown) (unknown) Assessment + Plan (units (unknown) date) unknown) (unknown) (no (unknown) (unknown) Assessment + Plan (units (unknown) date) narrative: unknown) (unknown) (no (unknown) (unknown) Asthma (units (unkno wn) date) unknown) (unknown) (no (unknown) (unknown) Blood Pressure (units (unknown) date) 138/70 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 (unknown) (no (unknown) (unknown) Cervical cancer, (units (unknown) date) FIGO stage I unknown) (unknown) (no (unknown) (unknown) Chest pain, ruled (units (unknown) date) out for myocardial unknown) infarction, low risk stress test (unknown) (no (unknown) (unknown) Cholelithiasis (units (unknown) date) unknown) (unknown) (no (unknown) (unknown) Chronic back pain (units (unknown) date) unknown) (unknown) (no (unknown) (unknown) Critical Care (units ( unknown) date) time: unknown) (unknown) (no (unknown) (unknown) : 1935 (units (unknown) date) Acct:[id number] unknown) (unknown) (no (unknown) (unknown) Date Patient Seen: (units (unknown) date) 04/06/22 unknown) (unknown) (no (unknown) (unknown) Deep Vein (units (unkn own) date) Thrombosis/Pulmonar unknown) y Embolism Present on Admission: No (unknown) (no (unknown) (unknown) Depression (units (unk nown) date) (emotion) unknown) (unknown) (no (unknown) (unknown) Developmental (units ( unknown) date) disorder unknown) (unknown) (no (unknown) (unknown) Diarrhea (units (unkno wn) date) unknown) (unknown) (no (unknown) (unknown) EXTR: warm, well (units (unknown) date) perfused, no C/C/E unknown) (unknown) (no (unknown) (unknown) Essential (units (unkn own) date) hypertension unknown) (09/28/12) (unknown) (no (unknown) (unknown) Exam (units (unkno wn) date) unknown) (unknown) (no (unknown) (unknown) Exam Narrative: (units (unknown) date) unknown) (unknown) (no (unknown) (unknown) Failure to thrive (units (unknown) date) in adult unknown) (unknown) (no (unknown) (unknown) Family History (units (unknown) date) (Reviewed 03/30/22 unknown) @ 07:25 by Stephane Gonzalez DO) (unknown) (no (unknown) (unknown) Father (units (unknown) date) Myocardial infarct unknown) (unknown) (no (unknown) (unknown) Fibrocystic breast (units (unknown) date) disease unknown) (unknown) (no (unknown) (unknown) Full (units (unkno wn) date) unknown) (unknown) (no (unknown) (unknown) GEN: Elderly (units ( unknown) date) female, no acute unknown) distress (unknown) (no (unknown) (unknown) GERD (units (unkno wn) date) (gastroesophageal unknown) reflux disease) (unknown) (no (unknown) (unknown) HEENT: NCAT, MMM (units (unknown) date) unknown) (unknown) (no (unknown) (unknown) History of colon (units (unknown) date) polyps (09/28/12) unknown) (unknown) (no (unknown) (unknown) History of left (units (unknown) date) breast cancer unknown) (-2008) (unknown) (no (unknown) (unknown) Hyperlipidemia (units (unknown) date) 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) unknown) (unknown) (no (unknown) (unknown) Interval history: (units (unknown) date) unknown) (unknown) (no (unknown) (unknown) Labs (units (unkno wn) date) unknown) (unknown) (no (unknown) (unknown) [id number] (units (unk nown) date) unknown) (unknown) (no (unknown) (unknown) Measles (units (unkno wn) date) unknown) (unknown) (no (unknown) (unknown) Medical History (units (unknown) date) (Reviewed 03/30/22 unknown) @ 07:25 by Stephane Gonzalez DO) 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 unknown) () (unknown) (no (unknown) (unknown) Mother (units (unknown) date) Maternal unknown) complication related to childbirth (unknown) (no (unknown) (unknown) NEURO: Right (units ( unknown) date) facial droop and unknown) right-sided weakness from previous stroke, alert (unknown) (no (unknown) (unknown) Narrative (units (unkn own) date) unknown) (unknown) (no (unknown) (unknown) Objective (units (unkn own) date) unknown) (unknown) (no (unknown) (unknown) On apixaban (units (un known) date) unknown) (unknown) (no (unknown) (unknown) Osteoarthritis of (units (unknown) date) knees, bilateral unknown) (unknown) (no (unknown) (unknown) Oxygen Delivery (units (unknown) date) Method Room Air unknown) (unknown) (no (unknown) (unknown) Oxygen Delivery (units (unknown) date) Method Room Air unknown) (unknown) (no (unknown) (unknown) Oxygen Flow Rate (units (unknown) date) 0 unknown) (unknown) (no (unknown) (unknown) Oxygen Flow Rate 0 (units (unknown) date) unknown) (unknown) (no (unknown) (unknown) PFSH (units (unkno wn) date) unknown) (unknown) (no (unknown) (unknown) Patient has had a (units (unknown) date) 7.5% weight loss unknown) over the last 3 months.? 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 unknown) (unknown) (no (unknown) (unknown) Pulse Oximetry 97 (units (unknown) date) 95 unknown) (unknown) (no (unknown) (unknown) Pulse Rate 79 (units ( unknown) date) unknown) (unknown) (no (unknown) (unknown) Quality (units (unkno wn) date) unknown) (unknown) (no (unknown) (unknown) Reduced losartan, (units (unknown) date) with improved BP unknown) today. (unknown) (no (unknown) (unknown) Respiratory Rate (units (unknown) date) 16 unknown) (unknown) (no (unknown) (unknown) Result Diagrams: (units (unknown) date) unknown) (unknown) (no (unknown) (unknown) Result issues: (units (unknown) date) unknown) (unknown) (no (unknown) (unknown) SKIN: warm and (units (unknown) date) dry, no rash unknown) (unknown) (no (unknown) (unknown) Signed By: (units (unk nown) date) unknown) (unknown) (no (unknown) (unknown) Sister (units (unknown) date) Traumatic unknown) amputation (unknown) (no (unknown) (unknown) Slums assessment (units (unknown) date) was performed unknown) earlier this hospitalization with a score of (unknown) (no (unknown) (unknown) Smoking Status: (units (unknown) date) Never smoker unknown) (unknown) (no (unknown) (unknown) Social History (units (unknown) date) (Reviewed 03/30/22 unknown) @ 07:25 by Stephane Gonzalez DO) (unknown) (no (unknown) (unknown) Speech and (units (unk nown) date) language unknown) 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 (09/28/12) (unknown) (no (unknown) (unknown) Status post (units (un known) date) arthroscopy unknown) (unknown) (no (unknown) (unknown) Status post biopsy (units (unknown) date) () unknown) (unknown) (no (unknown) (unknown) Status post breast (units (unknown) date) lumpectomy () unknown) (unknown) (no (unknown) (unknown) Status post (units (un known) date) cholecystectomy unknown) (unknown) (no (unknown) (unknown) 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 (unknown) (no (unknown) (unknown) Status post (units (un known) date) hysterectomy unknown) () (unknown) (no (unknown) (unknown) Subjective (units (unk nown) date) unknown) (unknown) (no (unknown) (unknown) Surgical History (units (unknown) date) (Reviewed 03/30/22 unknown) @ 07:25 by Stephane Gonzalez DO) (unknown) (no (unknown) (unknown) 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 (units (unk nown) date) unknown) (unknown) (no (unknown) (unknown) alcohol intake: (units (unknown) date) never unknown) (unknown) (no (unknown) (unknown) and oriented to (units (unknown) date) name, place, and unknown) approximate date (March 2022) (unknown) (no (unknown) (unknown) class 2 (06/05/11) (units (unknown) date) unknown) (unknown) (no (unknown) (unknown) esophageal spasm (units (unknown) date) that is responsive unknown) to nitroglycerin.? No symptoms reported (unknown) (no (unknown) (unknown) her dog will not (units (unknown) date) be able to live unknown) with her. (unknown) (no (unknown) (unknown) household members: (units (unknown) date) children unknown) (unknown) (no (unknown) (unknown) is here because (units (unknown) date) she cannot go home unknown) because her son was evicted. She understands (unknown) (no (unknown) (unknown) medical decisions. (units (unknown) date) In talking with her unknown) today she seems to comprehend the current (unknown) (no (unknown) (unknown) prior intervention (units (unknown) date) (pt does not recall unknown) what was done).? Low risk nuc this (unknown) (no (unknown) (unknown) reports facial (units ( unknown) date) pain, which she unknown) states is chronic. She reiterates to me today she (unknown) (no (unknown) (unknown) supplementation as (units (unknown) date) tolerated.? unknown) Continue multivitamin (unknown) (no (unknown) (unknown) that we are (units (un known) date) working to find unknown) somewhere for her to go. She is agreeable to go (unknown) (no (unknown) (unknown) there, though she (units (unknown) date) asks to be able to unknown) at least visit her dog but realizes that (unknown) (no (unknown) (unknown) today. Started (units (unknown) date) PPI. unknown) (unknown) (no (unknown) (unknown) today; this time (units (unknown) date) is exclusive of unknown) procedural time. Result panel 66 (unknown) (no (unknown) (unknown) (no value) (units (unk nown) date) unknown) (unknown) (no (unknown) (unknown) Date of Service: (units (unknown) date) 03/18/22 unknown) (unknown) (no (unknown) (unknown) (no value) (units (unk nown) date) unknown) (unknown) (no (unknown) (unknown) - (units (unkno wn) date) unknown) (unknown) (no (unknown) (unknown) 03/31/22 05:50 (units (unknown) date) unknown) (unknown) (no (unknown) (unknown) 04/06/22 1515 (units ( unknown) date) unknown) (unknown) (no (unknown) (unknown) [facility] (units (unknown) date) [address] unknown) [place] [address] (unknown) (no (unknown) (unknown) Progress Note (units ( unknown) date) unknown) (unknown) (no (unknown) (unknown) (no value) (units (unk nown) date) unknown) (unknown) (no (unknown) (unknown) 04/06/22 (units (unkno wn) date) unknown) (unknown) (no (unknown) (unknown) patient has (units (un known) date) cognitive ability unknown) for some medical decisions but not complex (unknown) (no (unknown) (unknown) situation and (units ( unknown) date) appears to be able unknown) to make a decision regarding placement at this (unknown) (no (unknown) (unknown) time. (units (unkno wn) date) unknown) (unknown) (no (unknown) (unknown) (12/05/17) (units (unk nown) date) unknown) (unknown) (no (unknown) (unknown) (past 8 hours): (units (unknown) date) unknown) (unknown) (no (unknown) (unknown) 07:50 04/06/22 (units (unknown) date) unknown) (unknown) (no (unknown) (unknown) 1. Dementia (units (un known) date) unknown) (unknown) (no (unknown) (unknown) 11:00 (units (unkno wn) date) unknown) (unknown) (no (unknown) (unknown) .? This is (units (unknown) date) consistent with unknown) dementia.? According to psychiatry consultation, (unknown) (no (unknown) (unknown) 2. 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 Chronic GERD (units (unknown) date) unknown) (unknown) (no (unknown) (unknown) 5. CHFrEF (units (unkn own) date) unknown) (unknown) (no (unknown) (unknown) 6. Acute severe (units (unknown) date) protein calorie unknown) malnutrition (unknown) (no (unknown) (unknown) 86 y/o female (units ( unknown) date) admitted for chest unknown) pain with dementia awaiting placement. Patient (unknown) (no (unknown) (unknown) ? Appears (units (unkn own) date) euvolemic unknown) presently. Patient is on ARB and beta annie therapy. (unknown) (no (unknown) (unknown) ? Remains rate (units (unknown) date) controlled.? Is on unknown) chronic apixaban. (unknown) (no (unknown) (unknown) ? Suspect this (units (unknown) date) could be unknown) contributing to her chest pain.? It may be she has (unknown) (no (unknown) (unknown) ? Uncertain as to (units (unknown) date) her previous unknown) cardiac interventions.? Has a sternal scar from (unknown) (no (unknown) (unknown) ?Code status (units (u nknown) date) unknown) (unknown) (no (unknown) (unknown) ?Disposition: (units ( unknown) date) pending placement unknown) (unknown) (no (unknown) (unknown) ?Prophylaxis (units (u nknown) date) unknown) (unknown) (no (unknown) (unknown) ABD: Soft, NT ND (units (unknown) date) unknown) (unknown) (no (unknown) (unknown) Abdominal pain (units (unknown) date) unknown) (unknown) (no (unknown) (unknown) Acute pancreatitis (units (unknown) date) unknown) (unknown) (no (unknown) (unknown) Age/Sex: 86 / F (units (unknown) date) unknown) (unknown) (no (unknown) (unknown) Anesthesia (units (unk nown) date) unknown) (unknown) (no (unknown) (unknown) Anticoagulated (units (unknown) date) unknown) (unknown) (no (unknown) (unknown) Anxiety (units (unkno wn) date) unknown) 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 () (unknown) (no (unknown) (unknown) 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 (09/28/12) (unknown) (no (unknown) (unknown) Assessment + Plan (units (unknown) date) unknown) (unknown) (no (unknown) (unknown) Assessment + Plan (units (unknown) date) narrative: unknown) (unknown) (no (unknown) (unknown) Asthma (units (unkno wn) date) unknown) (unknown) (no (unknown) (unknown) Blood Pressure (units (unknown) date) 138/70 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 (unknown) (no (unknown) (unknown) Cervical cancer, (units (unknown) date) FIGO stage I unknown) (unknown) (no (unknown) (unknown) Chest pain, ruled (units (unknown) date) out for myocardial unknown) infarction, low risk stress test (unknown) (no (unknown) (unknown) Cholelithiasis (units (unknown) date) unknown) (unknown) (no (unknown) (unknown) Chronic back pain (units (unknown) date) unknown) (unknown) (no (unknown) (unknown) Critical Care (units ( unknown) date) time: unknown) (unknown) (no (unknown) (unknown) : 1935 (units (unknown) date) Acct:[id number] unknown) (unknown) (no (unknown) (unknown) Date Patient Seen: (units (unknown) date) 04/06/22 unknown) (unknown) (no (unknown) (unknown) Deep Vein (units (unkn own) date) Thrombosis/Pulmonar unknown) y Embolism Present on Admission: No (unknown) (no (unknown) (unknown) Depression (units (unk nown) date) (emotion) unknown) (unknown) (no (unknown) (unknown) Developmental (units ( unknown) date) disorder unknown) (unknown) (no (unknown) (unknown) Diarrhea (units (unkno wn) date) unknown) (unknown) (no (unknown) (unknown) EXTR: warm, well (units (unknown) date) perfused, no C/C/E unknown) (unknown) (no (unknown) (unknown) Essential (units (unkn own) date) hypertension unknown) (09/28/12) (unknown) (no (unknown) (unknown) Exam (units (unkno wn) date) unknown) (unknown) (no (unknown) (unknown) Exam Narrative: (units (unknown) date) unknown) (unknown) (no (unknown) (unknown) Failure to thrive (units (unknown) date) in adult unknown) (unknown) (no (unknown) (unknown) Family History (units (unknown) date) (Reviewed 03/30/22 unknown) @ 07:25 by Stephane Gonzalez DO) (unknown) (no (unknown) (unknown) Father (units (unknown) date) Myocardial infarct unknown) (unknown) (no (unknown) (unknown) Fibrocystic breast (units (unknown) date) disease unknown) (unknown) (no (unknown) (unknown) Full (units (unkno wn) date) unknown) (unknown) (no (unknown) (unknown) GEN: Elderly (units ( unknown) date) female, no acute unknown) distress (unknown) (no (unknown) (unknown) GERD (units (unkno wn) date) (gastroesophageal unknown) reflux disease) (unknown) (no (unknown) (unknown) HEENT: NCAT, MMM (units (unknown) date) unknown) (unknown) (no (unknown) (unknown) History of colon (units (unknown) date) polyps (09/28/12) unknown) (unknown) (no (unknown) (unknown) History of left (units (unknown) date) breast cancer unknown) (-2008) (unknown) (no (unknown) (unknown) Hyperlipidemia (units (unknown) date) 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) unknown) (unknown) (no (unknown) (unknown) Interval history: (units (unknown) date) unknown) (unknown) (no (unknown) (unknown) Labs (units (unkno wn) date) unknown) (unknown) (no (unknown) (unknown) [id number] (units (unk nown) date) unknown) (unknown) (no (unknown) (unknown) Measles (units (unkno wn) date) unknown) (unknown) (no (unknown) (unknown) Medical History (units (unknown) date) (Reviewed 03/30/22 unknown) @ 07:25 by Stephane Gonzalez DO) 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) (unknown) (no (unknown) (unknown) Mother (units (unknown) date) Maternal unknown) complication related to childbirth (unknown) (no (unknown) (unknown) NEURO: Right (units ( unknown) date) facial droop and unknown) right-sided weakness from previous stroke, alert (unknown) (no (unknown) (unknown) Narrative (units (unkn own) date) unknown) (unknown) (no (unknown) (unknown) Objective (units (unkn own) date) unknown) (unknown) (no (unknown) (unknown) On apixaban (units (un known) date) unknown) (unknown) (no (unknown) (unknown) Osteoarthritis of (units (unknown) date) knees, bilateral unknown) (unknown) (no (unknown) (unknown) Oxygen Delivery (units (unknown) date) Method Room Air unknown) (unknown) (no (unknown) (unknown) Oxygen Delivery (units (unknown) date) Method Room Air unknown) (unknown) (no (unknown) (unknown) Oxygen Flow Rate (units (unknown) date) 0 unknown) (unknown) (no (unknown) (unknown) Oxygen Flow Rate 0 (units (unknown) date) unknown) (unknown) (no (unknown) (unknown) PFSH (units (unkno wn) date) unknown) (unknown) (no (unknown) (unknown) Patient has had a (units (unknown) date) 7.5% weight loss unknown) over the last 3 months.? 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 unknown) (unknown) (no (unknown) (unknown) Pulse Oximetry 97 (units (unknown) date) 95 unknown) (unknown) (no (unknown) (unknown) Pulse Rate 79 (units ( unknown) date) unknown) (unknown) (no (unknown) (unknown) Quality (units (unkno wn) date) unknown) (unknown) (no (unknown) (unknown) Reduced losartan, (units (unknown) date) with improved BP unknown) today. (unknown) (no (unknown) (unknown) Respiratory Rate (units (unknown) date) 16 unknown) (unknown) (no (unknown) (unknown) Result Diagrams: (units (unknown) date) unknown) (unknown) (no (unknown) (unknown) Result issues: (units (unknown) date) unknown) (unknown) (no (unknown) (unknown) SKIN: warm and (units (unknown) date) dry, no rash unknown) (unknown) (no (unknown) (unknown) Signed (units (unkno wn) date) By:<Electronically unknown) signed by Harvey Cid D.O.> (unknown) (no (unknown) (unknown) Sister (units (unknown) date) Traumatic unknown) amputation (unknown) (no (unknown) (unknown) Slums assessment (units (unknown) date) was performed unknown) earlier this hospitalization with a score of (unknown) (no (unknown) (unknown) Smoking Status: (units (unknown) date) Never smoker unknown) (unknown) (no (unknown) (unknown) Social History (units (unknown) date) (Reviewed 03/30/22 unknown) @ 07:25 by Stephane Gonzalez DO) (unknown) (no (unknown) (unknown) Speech and (units (unk nown) date) language unknown) 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 (09/28/12) (unknown) (no (unknown) (unknown) Status post (units (un known) date) arthroscopy unknown) (unknown) (no (unknown) (unknown) Status post biopsy (units (unknown) date) (-2014) unknown) (unknown) (no (unknown) (unknown) Status post breast (units (unknown) date) lumpectomy () unknown) (unknown) (no (unknown) (unknown) Status post (units (un known) date) cholecystectomy unknown) (unknown) (no (unknown) (unknown) 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 (unknown) (no (unknown) (unknown) Status post (units (un known) date) hysterectomy unknown) () (unknown) (no (unknown) (unknown) Subjective (units (unk nown) date) unknown) (unknown) (no (unknown) (unknown) Surgical History (units (unknown) date) (Reviewed 03/30/22 unknown) @ 07:25 by Stephane A Gonzalez, DO) (unknown) (no (unknown) (unknown) 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 (units (unk nown) date) unknown) (unknown) (no (unknown) (unknown) alcohol intake: (units (unknown) date) never unknown) (unknown) (no (unknown) (unknown) and oriented to (units (unknown) date) name, place, and unknown) approximate date (March 2022) (unknown) (no (unknown) (unknown) class 2 (06/05/11) (units (unknown) date) unknown) (unknown) (no (unknown) (unknown) esophageal spasm (units (unknown) date) that is responsive unknown) to nitroglycerin.? No symptoms reported (unknown) (no (unknown) (unknown) her dog will not (units (unknown) date) be able to live unknown) with her. (unknown) (no (unknown) (unknown) household members: (units (unknown) date) children unknown) (unknown) (no (unknown) (unknown) is here because (units (unknown) date) she cannot go home unknown) because her son was evicted. She understands (unknown) (no (unknown) (unknown) medical decisions. (units (unknown) date) In talking with her unknown) today she seems to comprehend the current (unknown) (no (unknown) (unknown) prior intervention (units (unknown) date) (pt does not recall unknown) what was done).? Low risk nuc this (unknown) (no (unknown) (unknown) reports facial (units ( unknown) date) pain, which she unknown) states is chronic. She reiterates to me today she (unknown) (no (unknown) (unknown) supplementation as (units (unknown) date) tolerated.? unknown) Continue multivitamin (unknown) (no (unknown) (unknown) that we are (units (un known) date) working to find unknown) somewhere for her to go. She is agreeable to go (unknown) (no (unknown) (unknown) there, though she (units (unknown) date) asks to be able to unknown) at least visit her dog but realizes that (unknown) (no (unknown) (unknown) today. Started (units (unknown) date) PPI. unknown) (unknown) (no (unknown) (unknown) today; this time (units (unknown) date) is exclusive of unknown) procedural time. Result panel 67 (unknown) (no (unknown) (unknown) (no value) (units (unk nown) date) unknown) (unknown) (no (unknown) (unknown) Date of Service: (units (unknown) date) 03/18/22 unknown) (unknown) (no (unknown) (unknown) (no value) (units (unk nown) date) unknown) (unknown) (no (unknown) (unknown) 03/31/22 05:50 (units (unknown) date) unknown) (unknown) (no (unknown) (unknown) 04/07/22 1904 (units ( unknown) date) unknown) (unknown) (no (unknown) (unknown) [facility] (units (unknown) date) [address]) [place] [address] (unknown) (no (unknown) (unknown) Progress Note (units ( unknown) date) unknown) (unknown) (no (unknown) (unknown) (no value) (units (unk nown) date) unknown) (unknown) (no (unknown) (unknown) patient has (units (un known) date) cognitive ability unknown) for some medical decisions but not complex (unknown) (no (unknown) (unknown) situation and (units ( unknown) date) appears to be able unknown) to make a decision regarding placement at this (unknown) (no (unknown) (unknown) time. (units (unkno wn) date) unknown) (unknown) (no (unknown) (unknown) (12/05/17) (units (unk nown) date) unknown) (unknown) (no (unknown) (unknown) (past 8 hours): (units (unknown) date) unknown) (unknown) (no (unknown) (unknown) .? This is (units (unknown) date) consistent with unknown) dementia.? According to psychiatry consultation, (unknown) (no (unknown) (unknown) 2. 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 Chronic GERD (units (unknown) date) unknown) (unknown) (no (unknown) (unknown) 5. CHFrEF (units (unkn own) date) unknown) (unknown) (no (unknown) (unknown) 6. Acute severe (units (unknown) date) protein calorie unknown) malnutrition (unknown) (no (unknown) (unknown) 86 y/o female (units ( unknown) date) awaiting placement unknown) . No complaints (unknown) (no (unknown) (unknown) ? Appears (units (unkn own) date) euvolemic unknown) presently. Patient is on ARB and beta annie therapy. (unknown) (no (unknown) (unknown) ? Remains rate (units (unknown) date) controlled.? Is on unknown) chronic apixaban. (unknown) (no (unknown) (unknown) ? Suspect this (units (unknown) date) could be unknown) contributing to her chest pain.? It may be she has (unknown) (no (unknown) (unknown) ? Uncertain as to (units (unknown) date) her previous unknown) cardiac interventions.? Has a sternal scar from (unknown) (no (unknown) (unknown) ?Dementia (units (unkn own) date) unknown) (unknown) (no (unknown) (unknown) Abd: soft/ non (units (unknown) date) tender unknown) (unknown) (no (unknown) (unknown) Abdominal pain (units (unknown) date) unknown) (unknown) (no (unknown) (unknown) Acute pancreatitis (units (unknown) date) unknown) (unknown) (no (unknown) (unknown) Age/Sex: 86 / F (units (unknown) date) unknown) (unknown) (no (unknown) (unknown) Anesthesia (units (unk nown) date) unknown) (unknown) (no (unknown) (unknown) Anticoagulated (units (unknown) date) unknown) (unknown) (no (unknown) (unknown) Anxiety (units (unkno wn) date) unknown) 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 () (unknown) (no (unknown) (unknown) 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 (09/28/12) (unknown) (no (unknown) (unknown) Assessment + Plan (units (unknown) date) unknown) (unknown) (no (unknown) (unknown) Assessment + Plan (units (unknown) date) narrative: unknown) (unknown) (no (unknown) (unknown) Asthma (units (unkno wn) date) unknown) (unknown) (no (unknown) (unknown) Awaiting placement (units (unknown) date) unknown) (unknown) (no (unknown) (unknown) Breast cancer (units ( unknown) date) () unknown) (unknown) (no (unknown) (unknown) 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) unknown) (unknown) (no (unknown) (unknown) CV: RRR nl Sl S2 (units (unknown) date) unknown) (unknown) (no (unknown) (unknown) Calcified nodule (units (unknown) date) unknown) (unknown) (no (unknown) (unknown) Cardio (units (unkno wn) date) unknown) (unknown) (no (unknown) (unknown) 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 (unknown) (no (unknown) (unknown) Cervical cancer, (units (unknown) date) FIGO stage I unknown) (unknown) (no (unknown) (unknown) Chest pain, ruled (units (unknown) date) out for myocardial unknown) infarction, low risk stress test (unknown) (no (unknown) (unknown) Cholelithiasis (units (unknown) date) unknown) (unknown) (no (unknown) (unknown) Chronic back pain (units (unknown) date) unknown) (unknown) (no (unknown) (unknown) Critical Care (units ( unknown) date) time: unknown) (unknown) (no (unknown) (unknown) : 1935 (units (unknown) date) Acct:[id number] unknown) (unknown) (no (unknown) (unknown) Date Patient Seen: (units (unknown) date) 04/07/22 unknown) (unknown) (no (unknown) (unknown) Deep Vein (units (unkn own) date) Thrombosis/Pulmonar unknown) y Embolism Present on Admission: No (unknown) (no (unknown) (unknown) Depression (units (unk nown) date) (emotion) unknown) (unknown) (no (unknown) (unknown) Developmental (units ( unknown) date) disorder unknown) (unknown) (no (unknown) (unknown) Diarrhea (units (unkno wn) date) unknown) (unknown) (no (unknown) (unknown) Essential (units (unkn own) date) hypertension unknown) (09/28/12) (unknown) (no (unknown) (unknown) Exam (units (unkno wn) date) unknown) (unknown) (no (unknown) (unknown) Exam Narrative: (units (unknown) date) unknown) (unknown) (no (unknown) (unknown) Extrem (units (unkno wn) date) unknown) (unknown) (no (unknown) (unknown) Failure to thrive (units (unknown) date) in adult unknown) (unknown) (no (unknown) (unknown) Family History (units (unknown) date) (Reviewed 03/30/22 unknown) @ 07:25 by Stephane Gonzalez DO) (unknown) (no (unknown) (unknown) Father (units (unknown) date) Myocardial infarct unknown) (unknown) (no (unknown) (unknown) Fibrocystic breast (units (unknown) date) disease unknown) (unknown) (no (unknown) (unknown) GERD (units (unkno wn) date) (gastroesophageal unknown) reflux disease) (unknown) (no (unknown) (unknown) GI (units (unkno wn) date) unknown) (unknown) (no (unknown) (unknown) History of colon (units (unknown) date) polyps (09/28/12) unknown) (unknown) (no (unknown) (unknown) History of left (units (unknown) date) breast cancer unknown) (-2008) (unknown) (no (unknown) (unknown) Hyperlipidemia (units (unknown) date) 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) unknown) (unknown) (no (unknown) (unknown) Interval history: (units (unknown) date) unknown) (unknown) (no (unknown) (unknown) Labs (units (unkno wn) date) unknown) (unknown) (no (unknown) (unknown) Lungs :clear to (units (unknown) date) auscultation unknown) (unknown) (no (unknown) (unknown) [id number] (units (unk nown) date) unknown) (unknown) (no (unknown) (unknown) Measles (units (unkno wn) date) unknown) (unknown) (no (unknown) (unknown) Medical History (units (unknown) date) (Reviewed 03/30/22 unknown) @ 07:25 by Stephane Gonzalez DO) 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 unknown) () (unknown) (no (unknown) (unknown) Mother (units (unknown) date) Maternal unknown) complication related to childbirth (unknown) (no (unknown) (unknown) Narrative (units (unkn own) date) unknown) (unknown) (no (unknown) (unknown) No edema (units (unkno wn) date) unknown) (unknown) (no (unknown) (unknown) Objective (units (unkn own) date) unknown) (unknown) (no (unknown) (unknown) Osteoarthritis of (units (unknown) date) knees, bilateral unknown) (unknown) (no (unknown) (unknown) Other: (units (unkno wn) date) unknown) (unknown) (no (unknown) (unknown) Oxygen Delivery (units (unknown) date) Method Room Air unknown) (unknown) (no (unknown) (unknown) Oxygen Flow Rate (units (unknown) date) 0 unknown) (unknown) (no (unknown) (unknown) PFSH (units (unkno wn) date) unknown) (unknown) (no (unknown) (unknown) Patient has had a (units (unknown) date) 7.5% weight loss unknown) over the last 3 months.? 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 (unknown) (no (unknown) (unknown) Resp (units (unkno wn) date) unknown) (unknown) (no (unknown) (unknown) Result Diagrams: (units (unknown) date) unknown) (unknown) (no (unknown) (unknown) Result issues: (units (unknown) date) unknown) (unknown) (no (unknown) (unknown) Signed (units (unkno wn) date) By:<Electronically unknown) signed by Sandra Carrizales MD> (unknown) (no (unknown) (unknown) Sister (units (unknown) date) Traumatic unknown) amputation (unknown) (no (unknown) (unknown) Slums assessment (units (unknown) date) was performed unknown) earlier this hospitalization with a score of (unknown) (no (unknown) (unknown) Smoking Status: (units (unknown) date) Never smoker unknown) (unknown) (no (unknown) (unknown) Social History (units (unknown) date) (Reviewed 03/30/22 unknown) @ 07:25 by Stephane Gonzalez DO) (unknown) (no (unknown) (unknown) Speech and (units (unk nown) date) language unknown) 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 (09/28/12) (unknown) (no (unknown) (unknown) Status post (units (un known) date) arthroscopy unknown) (unknown) (no (unknown) (unknown) Status post biopsy (units (unknown) date) (-2014) unknown) (unknown) (no (unknown) (unknown) Status post breast (units (unknown) date) lumpectomy () unknown) (unknown) (no (unknown) (unknown) Status post (units (un known) date) cholecystectomy unknown) (unknown) (no (unknown) (unknown) 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 (unknown) (no (unknown) (unknown) Status post (units (un known) date) hysterectomy unknown) () (unknown) (no (unknown) (unknown) Subjective (units (unk nown) date) unknown) (unknown) (no (unknown) (unknown) Surgical History (units (unknown) date) (Reviewed 03/30/22 unknown) @ 07:25 by Stephane Gonzalez DO) (unknown) (no (unknown) (unknown) 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 (units (unk nown) date) unknown) (unknown) (no (unknown) (unknown) alcohol intake: (units (unknown) date) never unknown) (unknown) (no (unknown) (unknown) class 2 (06/05/11) (units (unknown) date) unknown) (unknown) (no (unknown) (unknown) esophageal spasm (units (unknown) date) that is responsive unknown) to nitroglycerin.? No symptoms reported (unknown) (no (unknown) (unknown) household members: (units (unknown) date) children unknown) (unknown) (no (unknown) (unknown) medical decisions. (units (unknown) date) In talking with her unknown) today she seems to comprehend the current (unknown) (no (unknown) (unknown) pleasant elderly (units (unknown) date) female sitting in a unknown) chair (unknown) (no (unknown) (unknown) prior intervention (units (unknown) date) (pt does not recall unknown) what was done).? Low risk nuc this (unknown) (no (unknown) (unknown) supplementation as (units (unknown) date) tolerated.? unknown) Continue multivitamin (unknown) (no (unknown) (unknown) today. Started (units (unknown) date) PPI. unknown) (unknown) (no (unknown) (unknown) today; this time (units (unknown) date) is exclusive of unknown) procedural time. Result panel 68 (unknown) (no (unknown) (unknown) (no value) (units (unk nown) date) unknown) (unknown) (no (unknown) (unknown) Date of Service: (units (unknown) date) 03/18/22 unknown) (unknown) (no (unknown) (unknown) (no value) (units (unk nown) date) unknown) (unknown) (no (unknown) (unknown) - (units (unkno wn) date) unknown) (unknown) (no (unknown) (unknown) 03/31/22 05:50 (units (unknown) date) unknown) (unknown) (no (unknown) (unknown) 04/08/22 1705 (units ( unknown) date) unknown) (unknown) (no (unknown) (unknown) [facility] (units (unknown) date) [address] unknown) [place] [address] (unknown) (no (unknown) (unknown) Progress Note (units ( unknown) date) unknown) (unknown) (no (unknown) (unknown) (no value) (units (unk nown) date) unknown) (unknown) (no (unknown) (unknown) 04/08/22 (units (unkno wn) date) unknown) (unknown) (no (unknown) (unknown) patient has (units (un known) date) cognitive ability unknown) for some medical decisions but not complex (unknown) (no (unknown) (unknown) situation and (units ( unknown) date) appears to be able unknown) to make a decision regarding placement at this (unknown) (no (unknown) (unknown) time. (units (unkno wn) date) unknown) (unknown) (no (unknown) (unknown) (12/05/17) (units (unk nown) date) unknown) (unknown) (no (unknown) (unknown) (past 8 hours): (units (unknown) date) unknown) (unknown) (no (unknown) (unknown) 10:36 04/08/22 (units (unknown) date) unknown) (unknown) (no (unknown) (unknown) 10:38 04/08/22 (units (unknown) date) unknown) (unknown) (no (unknown) (unknown) 11:00 (units (unkno wn) date) unknown) (unknown) (no (unknown) (unknown) .? This is (units (unknown) date) consistent with unknown) dementia.? According to psychiatry consultation, (unknown) (no (unknown) (unknown) 2. 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 Chronic GERD (units (unknown) date) unknown) (unknown) (no (unknown) (unknown) 5. CHFrEF (units (unkn own) date) unknown) (unknown) (no (unknown) (unknown) 6. Acute severe (units (unknown) date) protein calorie unknown) malnutrition (unknown) (no (unknown) (unknown) 86 y/o female (units ( unknown) date) admitted with chest unknown) pain. Cardiac work up negative. She is now (unknown) (no (unknown) (unknown) ? Appears (units (unkn own) date) euvolemic unknown) presently. Patient is on ARB and beta annie therapy. (unknown) (no (unknown) (unknown) ? Remains rate (units (unknown) date) controlled.? Is on unknown) chronic apixaban. (unknown) (no (unknown) (unknown) ? Suspect this (units (unknown) date) could be unknown) contributing to her chest pain.? It may be she has (unknown) (no (unknown) (unknown) ? Uncertain as to (units (unknown) date) her previous unknown) cardiac interventions.? Has a sternal scar from (unknown) (no (unknown) (unknown) Abd: soft/ non (units (unknown) date) tender/ non unknown) distended (unknown) (no (unknown) (unknown) Abdominal pain (units (unknown) date) unknown) (unknown) (no (unknown) (unknown) Acute pancreatitis (units (unknown) date) unknown) (unknown) (no (unknown) (unknown) Age/Sex: 86 / F (units (unknown) date) unknown) (unknown) (no (unknown) (unknown) Anesthesia (units (unk nown) date) unknown) (unknown) (no (unknown) (unknown) Anticoagulated (units (unknown) date) unknown) (unknown) (no (unknown) (unknown) Anxiety (units (unkno wn) date) unknown) 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 () (unknown) (no (unknown) (unknown) 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 (09/28/12) (unknown) (no (unknown) (unknown) Assessment + Plan (units (unknown) date) unknown) (unknown) (no (unknown) (unknown) Assessment + Plan (units (unknown) date) narrative: unknown) (unknown) (no (unknown) (unknown) Asthma (units (unkno wn) date) unknown) (unknown) (no (unknown) (unknown) Awaiting placement (units (unknown) date) unknown) (unknown) (no (unknown) (unknown) Blood Pressure (units (unknown) date) 146/72 H 146/72 H unknown) (unknown) (no (unknown) (unknown) Breast cancer (units ( unknown) date) (-2001) unknown) (unknown) (no (unknown) (unknown) 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) unknown) (unknown) (no (unknown) (unknown) CV: RRR nl Sl S2 (units (unknown) date) 3/6 ENRICO unknown) (unknown) (no (unknown) (unknown) Calcified nodule (units (unknown) date) unknown) (unknown) (no (unknown) (unknown) Cardio (units (unkno wn) date) unknown) (unknown) (no (unknown) (unknown) 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 (unknown) (no (unknown) (unknown) Cervical cancer, (units (unknown) date) FIGO stage I unknown) (unknown) (no (unknown) (unknown) Cholelithiasis (units (unknown) date) unknown) (unknown) (no (unknown) (unknown) Chronic back pain (units (unknown) date) unknown) (unknown) (no (unknown) (unknown) Critical Care (units ( unknown) date) time: unknown) (unknown) (no (unknown) (unknown) : 1935 (units (unknown) date) Acct:[id number] unknown) (unknown) (no (unknown) (unknown) Date Patient Seen: (units (unknown) date) 04/08/22 unknown) (unknown) (no (unknown) (unknown) Deep Vein (units (unkn own) date) Thrombosis/Pulmonar unknown) y Embolism Present on Admission: No (unknown) (no (unknown) (unknown) Dementia (units (unkno wn) date) unknown) (unknown) (no (unknown) (unknown) Depression (units (unk nown) date) (emotion) unknown) (unknown) (no (unknown) (unknown) Developmental (units ( unknown) date) disorder unknown) (unknown) (no (unknown) (unknown) Diarrhea (units (unkno wn) date) unknown) (unknown) (no (unknown) (unknown) Essential (units (unkn own) date) hypertension unknown) (09/28/12) (unknown) (no (unknown) (unknown) Exam (units (unkno wn) date) unknown) (unknown) (no (unknown) (unknown) Exam Narrative: (units (unknown) date) unknown) (unknown) (no (unknown) (unknown) Extrem (units (unkno wn) date) unknown) (unknown) (no (unknown) (unknown) Failure to thrive (units (unknown) date) in adult unknown) (unknown) (no (unknown) (unknown) Family History (units (unknown) date) (Reviewed 03/30/22 unknown) @ 07:25 by Stephane Gonzalez DO) (unknown) (no (unknown) (unknown) Father (units (unknown) date) Myocardial infarct unknown) (unknown) (no (unknown) (unknown) Fibrocystic breast (units (unknown) date) disease unknown) (unknown) (no (unknown) (unknown) GERD (units (unkno wn) date) (gastroesophageal unknown) reflux disease) (unknown) (no (unknown) (unknown) GI (units (unkno wn) date) unknown) (unknown) (no (unknown) (unknown) History of colon (units (unknown) date) polyps (09/28/12) unknown) (unknown) (no (unknown) (unknown) History of left (units (unknown) date) breast cancer unknown) () (unknown) (no (unknown) (unknown) Hyperlipidemia (units (unknown) date) 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) unknown) (unknown) (no (unknown) (unknown) Interval history: (units (unknown) date) unknown) (unknown) (no (unknown) (unknown) Labs (units (unkno wn) date) unknown) (unknown) (no (unknown) (unknown) Lungs: Clear to (units (unknown) date) auscultation unknown) (unknown) (no (unknown) (unknown) [id number] (units (unk nown) date) unknown) (unknown) (no (unknown) (unknown) Measles (units (unkno wn) date) unknown) (unknown) (no (unknown) (unknown) Medical History (units (unknown) date) (Reviewed 03/30/22 unknown) @ 07:25 by Stephane Gonzalez DO) 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 unknown) () (unknown) (no (unknown) (unknown) Mother (units (unknown) date) Maternal unknown) complication related to childbirth (unknown) (no (unknown) (unknown) Narrative (units (unkn own) date) unknown) (unknown) (no (unknown) (unknown) No Edema (units (unkno wn) date) unknown) (unknown) (no (unknown) (unknown) Objective (units (unkn own) date) unknown) (unknown) (no (unknown) (unknown) Osteoarthritis of (units (unknown) date) knees, bilateral unknown) (unknown) (no (unknown) (unknown) Other: (units (unkno wn) date) unknown) (unknown) (no (unknown) (unknown) Oxygen Delivery (units (unknown) date) Method Room Air unknown) (unknown) (no (unknown) (unknown) Oxygen Delivery (units (unknown) date) Method Room Air unknown) (unknown) (no (unknown) (unknown) Oxygen Flow Rate (units (unknown) date) 0 unknown) (unknown) (no (unknown) (unknown) Oxygen Flow Rate 0 (units (unknown) date) 0 unknown) (unknown) (no (unknown) (unknown) PFSH (units (unkno wn) date) unknown) (unknown) (no (unknown) (unknown) Patient has had a (units (unknown) date) 7.5% weight loss unknown) over the last 3 months.? 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 (unknown) (no (unknown) (unknown) Resp (units (unkno wn) date) unknown) (unknown) (no (unknown) (unknown) Respiratory Rate (units (unknown) date) 18 unknown) (unknown) (no (unknown) (unknown) Result Diagrams: (units (unknown) date) unknown) (unknown) (no (unknown) (unknown) Signed (units (unkno wn) date) By:<Electronically unknown) signed by Sandra Carrizales MD> (unknown) (no (unknown) (unknown) Sister (units (unknown) date) Traumatic unknown) amputation (unknown) (no (unknown) (unknown) Slums assessment (units (unknown) date) was performed unknown) earlier this hospitalization with a score of (unknown) (no (unknown) (unknown) Smoking Status: (units (unknown) date) Never smoker unknown) (unknown) (no (unknown) (unknown) Social History (units (unknown) date) (Reviewed 03/30/22 unknown) @ 07:25 by Stephane Gonzalez DO) (unknown) (no (unknown) (unknown) Speech and (units (unk nown) date) language unknown) 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 (09/28/12) (unknown) (no (unknown) (unknown) Status post (units (un known) date) arthroscopy unknown) (unknown) (no (unknown) (unknown) Status post biopsy (units (unknown) date) (-2014) unknown) (unknown) (no (unknown) (unknown) Status post breast (units (unknown) date) lumpectomy (-2008) unknown) (unknown) (no (unknown) (unknown) Status post (units (un known) date) cholecystectomy unknown) (unknown) (no (unknown) (unknown) 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 (unknown) (no (unknown) (unknown) Status post (units (un known) date) hysterectomy unknown) (-2009) (unknown) (no (unknown) (unknown) Subjective (units (unk nown) date) unknown) (unknown) (no (unknown) (unknown) Surgical History (units (unknown) date) (Reviewed 03/30/22 unknown) @ 07:25 by Stephane Gonzalez DO) (unknown) (no (unknown) (unknown) 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 (units (unk nown) date) unknown) (unknown) (no (unknown) (unknown) alcohol intake: (units (unknown) date) never unknown) (unknown) (no (unknown) (unknown) awaiting (units (unkno wn) date) placement. She has unknown) no specific complaints (unknown) (no (unknown) (unknown) class 2 (06/05/11) (units (unknown) date) unknown) (unknown) (no (unknown) (unknown) esophageal spasm (units (unknown) date) that is responsive unknown) to nitroglycerin.? No symptoms reported (unknown) (no (unknown) (unknown) household members: (units (unknown) date) children unknown) (unknown) (no (unknown) (unknown) medical decisions. (units (unknown) date) In talking with her unknown) today she seems to comprehend the current (unknown) (no (unknown) (unknown) no new issues (units ( unknown) date) today unknown) (unknown) (no (unknown) (unknown) prior intervention (units (unknown) date) (pt does not recall unknown) what was done).? Low risk nuc this (unknown) (no (unknown) (unknown) rate will (units (unkn own) date) controlled unknown) (unknown) (no (unknown) (unknown) supplementation as (units (unknown) date) tolerated.? unknown) Continue multivitamin (unknown) (no (unknown) (unknown) today. Started (units (unknown) date) PPI. unknown) (unknown) (no (unknown) (unknown) today; this time (units (unknown) date) is exclusive of unknown) procedural time. Result panel 69 (unknown) (no (unknown) (unknown) (no value) (units (unk nown) date) unknown) (unknown) (no (unknown) (unknown) Date of Service: (units (unknown) date) 03/18/22 unknown) (unknown) (no (unknown) (unknown) (no value) (units (unk nown) date) unknown) (unknown) (no (unknown) (unknown) - (units (unkno wn) date) unknown) (unknown) (no (unknown) (unknown) 03/31/22 05:50 (units (unknown) date) unknown) (unknown) (no (unknown) (unknown) 04/09/22 1845 (units ( unknown) date) unknown) (unknown) (no (unknown) (unknown) [facility] (units (unknown) date) [address] unknown) [place] [address] (unknown) (no (unknown) (unknown) Progress Note (units ( unknown) date) unknown) (unknown) (no (unknown) (unknown) (no value) (units (unk nown) date) unknown) (unknown) (no (unknown) (unknown) 04/09/22 (units (unkno wn) date) unknown) (unknown) (no (unknown) (unknown) patient has (units (un known) date) cognitive ability unknown) for some medical decisions but not complex (unknown) (no (unknown) (unknown) situation and (units ( unknown) date) appears to be able unknown) to make a decision regarding placement at this (unknown) (no (unknown) (unknown) time. (units (unkno wn) date) unknown) (unknown) (no (unknown) (unknown) (12/05/17) (units (unk nown) date) unknown) (unknown) (no (unknown) (unknown) (past 8 hours): (units (unknown) date) unknown) (unknown) (no (unknown) (unknown) 11:00 04/09/22 (units (unknown) date) unknown) (unknown) (no (unknown) (unknown) 11:15 04/09/22 (units (unknown) date) unknown) (unknown) (no (unknown) (unknown) .? This is (units (unknown) date) consistent with unknown) dementia.? According to psychiatry consultation, (unknown) (no (unknown) (unknown) 17:00 (units (unkno wn) date) unknown) (unknown) (no (unknown) (unknown) 17:45 (units (unkno wn) date) unknown) (unknown) (no (unknown) (unknown) 2. 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 Chronic GERD (units (unknown) date) unknown) (unknown) (no (unknown) (unknown) 5. CHFrEF (units (unkn own) date) unknown) (unknown) (no (unknown) (unknown) 6. Acute severe (units (unknown) date) protein calorie unknown) malnutrition (unknown) (no (unknown) (unknown) 86 y/o female (units ( unknown) date) awaiting placement. unknown) no specific complaints (unknown) (no (unknown) (unknown) ? Appears (units (unkn own) date) euvolemic unknown) presently. Patient is on ARB and beta annie therapy. (unknown) (no (unknown) (unknown) ? Remains rate (units (unknown) date) controlled.? Is on unknown) chronic apixaban. (unknown) (no (unknown) (unknown) ? Suspect this (units (unknown) date) could be unknown) contributing to her chest pain.? It may be she has (unknown) (no (unknown) (unknown) ? Uncertain as to (units (unknown) date) her previous unknown) cardiac interventions.? Has a sternal scar from (unknown) (no (unknown) (unknown) Abd: soft/ non (units (unknown) date) tender unknown) (unknown) (no (unknown) (unknown) Abdominal pain (units (unknown) date) unknown) (unknown) (no (unknown) (unknown) Acute pancreatitis (units (unknown) date) unknown) (unknown) (no (unknown) (unknown) Age/Sex: 86 / F (units (unknown) date) unknown) (unknown) (no (unknown) (unknown) Anesthesia (units (unk nown) date) unknown) (unknown) (no (unknown) (unknown) Anticoagulated (units (unknown) date) unknown) (unknown) (no (unknown) (unknown) Anxiety (units (unkno wn) date) unknown) 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 () (unknown) (no (unknown) (unknown) 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 (09/28/12) (unknown) (no (unknown) (unknown) Assessment + Plan (units (unknown) date) unknown) (unknown) (no (unknown) (unknown) Assessment + Plan (units (unknown) date) narrative: unknown) (unknown) (no (unknown) (unknown) Asthma (units (unkno wn) date) unknown) (unknown) (no (unknown) (unknown) Awaiting placement (units (unknown) date) unknown) (unknown) (no (unknown) (unknown) Breast cancer (units ( unknown) date) () unknown) (unknown) (no (unknown) (unknown) 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) unknown) (unknown) (no (unknown) (unknown) CV: Irreguarly, (units (unknown) date) irregular nl Sl S2 unknown) (unknown) (no (unknown) (unknown) Calcified nodule (units (unknown) date) unknown) (unknown) (no (unknown) (unknown) Cardio (units (unkno wn) date) unknown) (unknown) (no (unknown) (unknown) 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 (unknown) (no (unknown) (unknown) Cervical cancer, (units (unknown) date) FIGO stage I unknown) (unknown) (no (unknown) (unknown) Cholelithiasis (units (unknown) date) unknown) (unknown) (no (unknown) (unknown) Chronic back pain (units (unknown) date) unknown) (unknown) (no (unknown) (unknown) Critical Care (units ( unknown) date) time: unknown) (unknown) (no (unknown) (unknown) : 1935 (units (unknown) date) Acct:[id number] unknown) (unknown) (no (unknown) (unknown) Date Patient Seen: (units (unknown) date) 04/09/22 unknown) (unknown) (no (unknown) (unknown) Deep Vein (units (unkn own) date) Thrombosis/Pulmonar unknown) y Embolism Present on Admission: No (unknown) (no (unknown) (unknown) Depression (units (unk nown) date) (emotion) unknown) (unknown) (no (unknown) (unknown) Developmental (units ( unknown) date) disorder unknown) (unknown) (no (unknown) (unknown) Diarrhea (units (unkno wn) date) unknown) (unknown) (no (unknown) (unknown) Essential (units (unkn own) date) hypertension unknown) (09/28/12) (unknown) (no (unknown) (unknown) Exam (units (unkno wn) date) unknown) (unknown) (no (unknown) (unknown) Exam Narrative: (units (unknown) date) unknown) (unknown) (no (unknown) (unknown) Extrem (units (unkno wn) date) unknown) (unknown) (no (unknown) (unknown) Failure to thrive (units (unknown) date) in adult unknown) (unknown) (no (unknown) (unknown) Family History (units (unknown) date) (Reviewed 03/30/22 unknown) @ 07:25 by Stephane Gonzalez DO) (unknown) (no (unknown) (unknown) Father (units (unknown) date) Myocardial infarct unknown) (unknown) (no (unknown) (unknown) Fibrocystic breast (units (unknown) date) disease unknown) (unknown) (no (unknown) (unknown) GERD (units (unkno wn) date) (gastroesophageal unknown) reflux disease) (unknown) (no (unknown) (unknown) GI (units (unkno wn) date) unknown) (unknown) (no (unknown) (unknown) History of colon (units (unknown) date) polyps (09/28/12) unknown) (unknown) (no (unknown) (unknown) History of left (units (unknown) date) breast cancer unknown) (-2008) (unknown) (no (unknown) (unknown) Hyperlipidemia (units (unknown) date) 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) unknown) (unknown) (no (unknown) (unknown) Interval history: (units (unknown) date) unknown) (unknown) (no (unknown) (unknown) Labs (units (unkno wn) date) unknown) (unknown) (no (unknown) (unknown) Lungs: clear to (units (unknown) date) ausculatation unknown) (unknown) (no (unknown) (unknown) [id number] (units (unk nown) date) unknown) (unknown) (no (unknown) (unknown) Measles (units (unkno wn) date) unknown) (unknown) (no (unknown) (unknown) Medical History (units (unknown) date) (Reviewed 03/30/22 unknown) @ 07:25 by Stephane Gonzalez DO) 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 unknown) () (unknown) (no (unknown) (unknown) Mother (units (unknown) date) Maternal unknown) complication related to childbirth (unknown) (no (unknown) (unknown) NO edema (units (unkno wn) date) unknown) (unknown) (no (unknown) (unknown) Narrative (units (unkn own) date) unknown) (unknown) (no (unknown) (unknown) Objective (units (unkn own) date) unknown) (unknown) (no (unknown) (unknown) Osteoarthritis of (units (unknown) date) knees, bilateral unknown) (unknown) (no (unknown) (unknown) Other: (units (unkno wn) date) unknown) (unknown) (no (unknown) (unknown) Oxygen Delivery (units (unknown) date) Method Room Air unknown) (unknown) (no (unknown) (unknown) Oxygen Delivery (units (unknown) date) Method Room Air unknown) (unknown) (no (unknown) (unknown) Oxygen Delivery (units (unknown) date) Method Room Air unknown) (unknown) (no (unknown) (unknown) Oxygen Flow Rate (units (unknown) date) 0 unknown) (unknown) (no (unknown) (unknown) Oxygen Flow Rate 0 (units (unknown) date) unknown) (unknown) (no (unknown) (unknown) Oxygen Flow Rate 0 (units (unknown) date) 0 0 unknown) (unknown) (no (unknown) (unknown) PFSH (units (unkno wn) date) unknown) (unknown) (no (unknown) (unknown) Patient has had a (units (unknown) date) 7.5% weight loss unknown) over the last 3 months.? 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 (unknown) (no (unknown) (unknown) Resp (units (unkno wn) date) unknown) (unknown) (no (unknown) (unknown) Result Diagrams: (units (unknown) date) unknown) (unknown) (no (unknown) (unknown) Signed (units (unkno wn) date) By:<Electronically unknown) signed by Sandra Carrizales MD> (unknown) (no (unknown) (unknown) Sister (units (unknown) date) Traumatic unknown) amputation (unknown) (no (unknown) (unknown) Slums assessment (units (unknown) date) was performed unknown) earlier this hospitalization with a score of (unknown) (no (unknown) (unknown) Smoking Status: (units (unknown) date) Never smoker unknown) (unknown) (no (unknown) (unknown) Social History (units (unknown) date) (Reviewed 03/30/22 unknown) @ 07:25 by Stephane Gonzalez DO) (unknown) (no (unknown) (unknown) Speech and (units (unk nown) date) language unknown) 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 (09/28/12) (unknown) (no (unknown) (unknown) Status post (units (un known) date) arthroscopy unknown) (unknown) (no (unknown) (unknown) Status post biopsy (units (unknown) date) (-2014) unknown) (unknown) (no (unknown) (unknown) Status post breast (units (unknown) date) lumpectomy () unknown) (unknown) (no (unknown) (unknown) Status post (units (un known) date) cholecystectomy unknown) (unknown) (no (unknown) (unknown) 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 (unknown) (no (unknown) (unknown) Status post (units (un known) date) hysterectomy unknown) () (unknown) (no (unknown) (unknown) Subjective (units (unk nown) date) unknown) (unknown) (no (unknown) (unknown) Surgical History (units (unknown) date) (Reviewed 03/30/22 unknown) @ 07:25 by Stephane Gonzalez DO) (unknown) (no (unknown) (unknown) 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 (units (unk nown) date) unknown) (unknown) (no (unknown) (unknown) alcohol intake: (units (unknown) date) never unknown) (unknown) (no (unknown) (unknown) class 2 (06/05/11) (units (unknown) date) unknown) (unknown) (no (unknown) (unknown) esophageal spasm (units (unknown) date) that is responsive unknown) to nitroglycerin.? No symptoms reported (unknown) (no (unknown) (unknown) household members: (units (unknown) date) children unknown) (unknown) (no (unknown) (unknown) ill appearing (units ( unknown) date) elderly female unknown) sitting slumped in a charin (unknown) (no (unknown) (unknown) medical decisions. (units (unknown) date) In talking with her unknown) today she seems to comprehend the current (unknown) (no (unknown) (unknown) no new issues (units ( unknown) date) today unknown) (unknown) (no (unknown) (unknown) prior intervention (units (unknown) date) (pt does not recall unknown) what was done).? Low risk nuc this (unknown) (no (unknown) (unknown) rate will (units (unkn own) date) controlled unknown) (unknown) (no (unknown) (unknown) still awaiting (units (unknown) date) placment unknown) (unknown) (no (unknown) (unknown) supplementation as (units (unknown) date) tolerated.? unknown) Continue multivitamin (unknown) (no (unknown) (unknown) today. Started (units (unknown) date) PPI. unknown) (unknown) (no (unknown) (unknown) today; this time (units (unknown) date) is exclusive of unknown) procedural time. Result panel 70 (unknown) (no (unknown) (unknown) (no value) (units (unk nown) date) unknown) (unknown) (no (unknown) (unknown) Date of Service: (units (unknown) date) 03/18/22 unknown) (unknown) (no (unknown) (unknown) (no value) (units (unk nown) date) unknown) (unknown) (no (unknown) (unknown) - (units (unkno wn) date) unknown) (unknown) (no (unknown) (unknown) 03/31/22 05:50 (units (unknown) date) unknown) (unknown) (no (unknown) (unknown) 04/10/22 1608 (units ( unknown) date) unknown) (unknown) (no (unknown) (unknown) [facility] (units (unknown) date) [address] unknown) [place] [address] (unknown) (no (unknown) (unknown) Progress Note (units ( unknown) date) unknown) (unknown) (no (unknown) (unknown) (no value) (units (unk nown) date) unknown) (unknown) (no (unknown) (unknown) 04/10/22 (units (unkno wn) date) unknown) (unknown) (no (unknown) (unknown) to continue to be (units (unknown) date) her DPOA. Awaiting unknown) placement at this time. (unknown) (no (unknown) (unknown) (12/05/17) (units (unk nown) date) unknown) (unknown) (no (unknown) (unknown) (past 8 hours): (units (unknown) date) unknown) (unknown) (no (unknown) (unknown) 08:15 04/10/22 (units (unknown) date) unknown) (unknown) (no (unknown) (unknown) 1. Dementia (units (un known) date) unknown) (unknown) (no (unknown) (unknown) .? This is (units (unknown) date) consistent with unknown) dementia.? She will need 18/04 supervision.? She (unknown) (no (unknown) (unknown) 15:15 (units (unkno wn) date) unknown) (unknown) (no (unknown) (unknown) 2. 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 Chronic GERD (units (unknown) date) unknown) (unknown) (no (unknown) (unknown) 5. CHF (units (unkno wn) date) unknown) (unknown) (no (unknown) (unknown) 6. Acute severe (units (unknown) date) protein calorie unknown) malnutrition (unknown) (no (unknown) (unknown) 86-year-old female (units (unknown) date) with known coronary unknown) artery disease, permanent atrial (unknown) (no (unknown) (unknown) ? Appears (units (unkn own) date) euvolemic unknown) presently. (unknown) (no (unknown) (unknown) ? Remains rate (units (unknown) date) controlled.? Is on unknown) chronic apixaban. (unknown) (no (unknown) (unknown) ?Code status (units (u nknown) date) unknown) (unknown) (no (unknown) (unknown) ?Disposition (units (u nknown) date) unknown) (unknown) (no (unknown) (unknown) ?Prophylaxis (units (u nknown) date) unknown) (unknown) (no (unknown) (unknown) ABD: Soft, mildly (units (unknown) date) diffusely tender, unknown) ND, BT present in all 4 quadrants, no (unknown) (no (unknown) (unknown) Abdominal pain (units (unknown) date) unknown) (unknown) (no (unknown) (unknown) Acute pancreatitis (units (unknown) date) unknown) (unknown) (no (unknown) (unknown) Age/Sex: 86 / F (units (unknown) date) unknown) (unknown) (no (unknown) (unknown) Anesthesia (units (unk nown) date) unknown) (unknown) (no (unknown) (unknown) Anticoagulated (units (unknown) date) unknown) (unknown) (no (unknown) (unknown) Anxiety (units (unkno wn) date) unknown) 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 (unknown) (no (unknown) (unknown) Cervical cancer, (units (unknown) date) FIGO stage I unknown) (unknown) (no (unknown) (unknown) Chest pain, ruled (units (unknown) date) out for myocardial unknown) infarction, low risk stress test (unknown) (no (unknown) (unknown) Cholelithiasis (units (unknown) date) unknown) (unknown) (no (unknown) (unknown) Chronic back pain (units (unknown) date) unknown) (unknown) (no (unknown) (unknown) Critical Care (units ( unknown) date) time: unknown) (unknown) (no (unknown) (unknown) : 1935 (units (unknown) date) Acct:[id number] unknown) (unknown) (no (unknown) (unknown) Date Patient Seen: (units (unknown) date) 04/10/22 unknown) (unknown) (no (unknown) (unknown) Deep Vein (units (unkn own) date) Thrombosis/Pulmonar unknown) y Embolism Present on Admission: No (unknown) (no (unknown) (unknown) Depression (units (unk nown) date) (emotion) unknown) (unknown) (no (unknown) (unknown) Developmental (units ( unknown) date) disorder unknown) (unknown) (no (unknown) (unknown) Diarrhea (units (unkno wn) date) unknown) (unknown) (no (unknown) (unknown) EXTR: warm, well (units (unknown) date) perfused, no C/C/E unknown) (unknown) (no (unknown) (unknown) Essential (units (unkn own) date) hypertension unknown) (09/28/12) (unknown) (no (unknown) (unknown) Exam (units (unkno wn) date) unknown) (unknown) (no (unknown) (unknown) Exam Narrative: (units (unknown) date) unknown) (unknown) (no (unknown) (unknown) Failure to thrive (units (unknown) date) in adult unknown) (unknown) (no (unknown) (unknown) Family History (units (unknown) date) (Reviewed 03/30/22 unknown) @ 07:25 by Stephane Gonzalez DO) (unknown) (no (unknown) (unknown) Father (units (unknown) date) Myocardial infarct unknown) (unknown) (no (unknown) (unknown) Fibrocystic breast (units (unknown) date) disease unknown) (unknown) (no (unknown) (unknown) Full (units (unkno wn) date) unknown) (unknown) (no (unknown) (unknown) GEN:? Drowsy (units (u nknown) date) elderly female, unknown) lying in the hospital room on bed, NAD (unknown) (no (unknown) (unknown) GERD (units (unkno wn) date) (gastroesophageal unknown) reflux disease) (unknown) (no (unknown) (unknown) HEENT:NC, Face (units (unknown) date) symmetric unknown) (unknown) (no (unknown) (unknown) History of colon (units (unknown) date) polyps (09/28/12) unknown) (unknown) (no (unknown) (unknown) History of left (units (unknown) date) breast cancer unknown) (-2008) (unknown) (no (unknown) (unknown) Hyperlipidemia (units (unknown) date) 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 Nonfocal (units (unknown) date) unknown) (unknown) (no (unknown) (unknown) Narrative (units (unkn own) date) unknown) (unknown) (no (unknown) (unknown) Objective (units (unkn own) date) unknown) (unknown) (no (unknown) (unknown) On apixaban (units (un known) date) unknown) (unknown) (no (unknown) (unknown) Osteoarthritis of (units (unknown) date) knees, bilateral unknown) (unknown) (no (unknown) (unknown) Oxygen Delivery (units (unknown) date) Method Room Air unknown) (unknown) (no (unknown) (unknown) Oxygen Delivery (units (unknown) date) Method Room Air unknown) Room Air Room Air (unknown) (no (unknown) (unknown) Oxygen Flow Rate (units (unknown) date) 0 unknown) (unknown) (no (unknown) (unknown) PFSH (units (unkno wn) date) unknown) (unknown) (no (unknown) (unknown) Patient complains (units (unknown) date) of pain all over unknown) today. She otherwise does not provide much (unknown) (no (unknown) (unknown) Patient has had a (units (unknown) date) 7.5% weight loss unknown) over the last 3 months.? 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 Since that time, patient's (unknown) (no (unknown) (unknown) Pulse Oximetry 98 (units (unknown) date) 98 unknown) (unknown) (no (unknown) (unknown) Quality (units (unkno wn) date) unknown) (unknown) (no (unknown) (unknown) Result Diagrams: (units (unknown) date) unknown) (unknown) (no (unknown) (unknown) Result issues: (units (unknown) date) unknown) (unknown) (no (unknown) (unknown) SKIN: warm and (units (unknown) date) dry, no rash unknown) (unknown) (no (unknown) (unknown) Signed (units (unkno wn) date) By:<Electronically unknown) signed by Linda David MD> (unknown) (no (unknown) (unknown) Sister (units (unknown) date) Traumatic unknown) amputation (unknown) (no (unknown) (unknown) Slums assessment (units (unknown) date) was performed unknown) earlier this hospitalization with a score of (unknown) (no (unknown) (unknown) Smoking Status: (units (unknown) date) Never smoker unknown) (unknown) (no (unknown) (unknown) Social History (units (unknown) date) (Reviewed 03/30/22 unknown) @ 07:25 by Stephane Gonzalez DO) (unknown) (no (unknown) (unknown) Speech and (units (unk nown) date) language unknown) 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 unknown) (unknown) (no (unknown) (unknown) Status post (units (un known) date) arthroscopy unknown) (unknown) (no (unknown) (unknown) Status post biopsy (units (unknown) date) () unknown) (unknown) (no (unknown) (unknown) Status post breast (units (unknown) date) lumpectomy () unknown) (unknown) (no (unknown) (unknown) Status post (units (un known) date) cholecystectomy unknown) (unknown) (no (unknown) (unknown) 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 (unknown) (no (unknown) (unknown) Status post (units (un known) date) hysterectomy unknown) () (unknown) (no (unknown) (unknown) Subjective (units (unk nown) date) unknown) (unknown) (no (unknown) (unknown) Surgical History (units (unknown) date) (Reviewed 03/30/22 unknown) @ 07:25 by Stephane Gonzalez DO) (unknown) (no (unknown) (unknown) 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 APS unknown) referral was made March 18 in light of ongoing (unknown) (no (unknown) (unknown) additional (units (unkn own) date) information. She unknown) denies any shortness of breath. Denies any other n (unknown) (no (unknown) (unknown) admitted with (units ( unknown) date) chest pain.? unknown) Patient underwent stress testing and had a low risk (unknown) (no (unknown) (unknown) alcohol intake: (units (unknown) date) never unknown) (unknown) (no (unknown) (unknown) caregiving (units (unkn own) date) concerns.? 1 APS unknown) attempted to make contact with the patient's son, it (unknown) (no (unknown) (unknown) class 2 (06/05/11) (units (unknown) date) unknown) (unknown) (no (unknown) (unknown) does not have (units (u nknown) date) capacity to make unknown) her own healthcare decisions.? Her son is willing (unknown) (no (unknown) (unknown) durable power of (units (unknown) date) research attorney and is unknown) agreeable with placement. (unknown) (no (unknown) (unknown) ew complaints. (units (unknown) date) She does ask for unknown) something ?strong? for her pain. (unknown) (no (unknown) (unknown) fibrillation on (units (unknown) date) apixaban, history unknown) of congestive heart failure ( unknown if (unknown) (no (unknown) (unknown) household members: (units (unknown) date) children unknown) (unknown) (no (unknown) (unknown) organomegaly or (units (unknown) date) masses unknown) (unknown) (no (unknown) (unknown) reported the (units (u nknown) date) patient has signed unknown) him out of the jones with a machete, looked at (unknown) (no (unknown) (unknown) scan.? She was (units (unknown) date) approved for unknown) discharge on March 18, but staff could not get her (unknown) (no (unknown) (unknown) son on the phone (units (unknown) date) who is her POA.? unknown) She remained in the hospital pending his (unknown) (no (unknown) (unknown) son was able to be (units (unknown) date) engaged in the unknown) process. He is willing to continue to be her (unknown) (no (unknown) (unknown) supplementation as (units (unknown) date) tolerated.? unknown) Continue multivitamin (unknown) (no (unknown) (unknown) systolic or (units (un known) date) diastolic), unknown) hypertension, hyperlipidemia, and prior stroke who was (unknown) (no (unknown) (unknown) them, and returned (units (unknown) date) into the [facility].? unknown) Patient has since been evaluated by (unknown) (no (unknown) (unknown) today; this time (units (unknown) date) is exclusive of unknown) procedural time. (unknown) (no (unknown) (unknown) was discovered (units (unknown) date) that they had unknown) evidently been evicted.? Additionally, they Result panel 71 (unknown) (no (unknown) (unknown) (no value) (units (unk nown) date) unknown) (unknown) (no (unknown) (unknown) Date of Service: (units (unknown) date) 03/18/22 unknown) (unknown) (no (unknown) (unknown) (no value) (units (unk nown) date) unknown) (unknown) (no (unknown) (unknown) - (units (unkno wn) date) unknown) (unknown) (no (unknown) (unknown) 03/31/22 05:50 (units (unknown) date) unknown) (unknown) (no (unknown) (unknown) [facility] (units (unknown) date) [address] unknown) [place] [address] (unknown) (no (unknown) (unknown) Progress Note (units ( unknown) date) unknown) (unknown) (no (unknown) (unknown) (no value) (units (unk nown) date) unknown) (unknown) (no (unknown) (unknown) 04/11/22 (units (unkno wn) date) unknown) (unknown) (no (unknown) (unknown) to continue to be (units (unknown) date) her DPOA.? Awaiting unknown) placement at this time. (unknown) (no (unknown) (unknown) (12/05/17) (units (unk nown) date) unknown) (unknown) (no (unknown) (unknown) (past 8 hours): (units (unknown) date) unknown) (unknown) (no (unknown) (unknown) 03:00 (units (unkno wn) date) unknown) (unknown) (no (unknown) (unknown) 1. Dementia (units (un known) date) unknown) (unknown) (no (unknown) (unknown) .? This is (units (unknown) date) consistent with unknown) dementia.? She will need 24/ supervision.? She (unknown) (no (unknown) (unknown) 2. 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 Chronic GERD (units (unknown) date) unknown) (unknown) (no (unknown) (unknown) 5. CHF (units (unkno wn) date) unknown) (unknown) (no (unknown) (unknown) 6. Acute severe (units (unknown) date) protein calorie unknown) malnutrition (unknown) (no (unknown) (unknown) 86-year-old female (units (unknown) date) with known coronary unknown) artery disease, permanent atrial (unknown) (no (unknown) (unknown) ? Appears (units (unkn own) date) euvolemic unknown) presently. (unknown) (no (unknown) (unknown) ? Remains rate (units (unknown) date) controlled.? Is on unknown) chronic apixaban. (unknown) (no (unknown) (unknown) ?Code status (units (u nknown) date) unknown) (unknown) (no (unknown) (unknown) ?Disposition (units (u nknown) date) unknown) (unknown) (no (unknown) (unknown) ?Prophylaxis (units (u nknown) date) unknown) (unknown) (no (unknown) (unknown) Abdominal pain (units (unknown) date) unknown) (unknown) (no (unknown) (unknown) Acute pancreatitis (units (unknown) date) unknown) (unknown) (no (unknown) (unknown) Age/Sex: 86 / F (units (unknown) date) unknown) (unknown) (no (unknown) (unknown) Anesthesia (units (unk nown) date) unknown) (unknown) (no (unknown) (unknown) Anticoagulated (units (unknown) date) unknown) (unknown) (no (unknown) (unknown) Anxiety (units (unkno wn) date) unknown) 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 (unknown) (no (unknown) (unknown) Cervical cancer, (units (unknown) date) FIGO stage I unknown) (unknown) (no (unknown) (unknown) Chest pain, ruled (units (unknown) date) out for myocardial unknown) infarction, low risk stress test (unknown) (no (unknown) (unknown) Cholelithiasis (units (unknown) date) unknown) (unknown) (no (unknown) (unknown) Chronic back pain (units (unknown) date) unknown) (unknown) (no (unknown) (unknown) Critical Care (units ( unknown) date) time: unknown) (unknown) (no (unknown) (unknown) : 1935 (units (unknown) date) Acct:[id number] unknown) (unknown) (no (unknown) (unknown) Date Patient Seen: (units (unknown) date) 04/11/22 unknown) (unknown) (no (unknown) (unknown) Deep Vein (units (unkn own) date) Thrombosis/Pulmonar unknown) y Embolism Present on Admission: No (unknown) (no (unknown) (unknown) Depression (units (unk nown) date) (emotion) unknown) (unknown) (no (unknown) (unknown) Developmental (units ( unknown) date) disorder unknown) (unknown) (no (unknown) (unknown) Diarrhea (units (unkno wn) date) unknown) (unknown) (no (unknown) (unknown) Essential (units (unkn own) date) hypertension unknown) (09/28/12) (unknown) (no (unknown) (unknown) Exam (units (unkno wn) date) unknown) (unknown) (no (unknown) (unknown) Failure to thrive (units (unknown) date) in adult unknown) (unknown) (no (unknown) (unknown) Family History (units (unknown) date) (Reviewed 03/30/22 unknown) @ 07:25 by Stephane Gonzalez DO) (unknown) (no (unknown) (unknown) Father (units (unknown) date) Myocardial infarct unknown) (unknown) (no (unknown) (unknown) Fibrocystic breast (units (unknown) date) disease unknown) (unknown) (no (unknown) (unknown) Full (units (unkno wn) date) unknown) (unknown) (no (unknown) (unknown) GERD (units (unkno wn) date) (gastroesophageal unknown) reflux disease) (unknown) (no (unknown) (unknown) History of colon (units (unknown) date) polyps (09/28/12) unknown) (unknown) (no (unknown) (unknown) History of left (units (unknown) date) breast cancer unknown) (-2008) (unknown) (no (unknown) (unknown) Hyperlipidemia (units (unknown) date) 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) (unknown) (no (unknown) (unknown) Mother (units (unknown) date) Maternal unknown) complication related to childbirth (unknown) (no (unknown) (unknown) Objective (units (unkn own) date) unknown) (unknown) (no (unknown) (unknown) On apixaban (units (un known) date) unknown) (unknown) (no (unknown) (unknown) Osteoarthritis of (units (unknown) date) knees, bilateral unknown) (unknown) (no (unknown) (unknown) Oxygen Delivery (units (unknown) date) Method Room Air unknown) (unknown) (no (unknown) (unknown) Oxygen Delivery (units (unknown) date) Method Room Air unknown) (unknown) (no (unknown) (unknown) Oxygen Flow Rate (units (unknown) date) 0 unknown) (unknown) (no (unknown) (unknown) Oxygen Flow Rate 0 (units (unknown) date) unknown) (unknown) (no (unknown) (unknown) PFSH (units (unkno wn) date) unknown) (unknown) (no (unknown) (unknown) Patient complains (units (unknown) date) of pain all over unknown) today.? She otherwise does not provide much (unknown) (no (unknown) (unknown) Patient has had a (units (unknown) date) 7.5% weight loss unknown) over the last 3 months.? 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 Since that time, patient's (unknown) (no (unknown) (unknown) Pulse Oximetry 95 (units (unknown) date) unknown) (unknown) (no (unknown) (unknown) Quality (units (unkno wn) date) unknown) (unknown) (no (unknown) (unknown) Result Diagrams: (units (unknown) date) unknown) (unknown) (no (unknown) (unknown) Result issues: (units (unknown) date) unknown) (unknown) (no (unknown) (unknown) Signed By: (units (unk nown) date) unknown) (unknown) (no (unknown) (unknown) Sister (units (unknown) date) Traumatic unknown) amputation (unknown) (no (unknown) (unknown) Slums assessment (units (unknown) date) was performed unknown) earlier this hospitalization with a score of (unknown) (no (unknown) (unknown) Smoking Status: (units (unknown) date) Never smoker unknown) (unknown) (no (unknown) (unknown) Social History (units (unknown) date) (Reviewed 03/30/22 unknown) @ 07:25 by Stephane Gonzalez DO) (unknown) (no (unknown) (unknown) Speech and (units (unk nown) date) language unknown) 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 unknown) (unknown) (no (unknown) (unknown) Status post (units (un known) date) arthroscopy unknown) (unknown) (no (unknown) (unknown) Status post biopsy (units (unknown) date) (-2014) unknown) (unknown) (no (unknown) (unknown) Status post breast (units (unknown) date) lumpectomy (-2008) unknown) (unknown) (no (unknown) (unknown) Status post (units (un known) date) cholecystectomy unknown) (unknown) (no (unknown) (unknown) 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 (unknown) (no (unknown) (unknown) Status post (units (un known) date) hysterectomy unknown) (-2009) (unknown) (no (unknown) (unknown) Subjective (units (unk nown) date) unknown) (unknown) (no (unknown) (unknown) Surgical History (units (unknown) date) (Reviewed 03/30/22 unknown) @ 07:25 by Stephane Gonzalez DO) (unknown) (no (unknown) (unknown) 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 APS unknown) referral was made March 18 in light of ongoing (unknown) (no (unknown) (unknown) additional (units (unkn own) date) information.? She unknown) denies any shortness of breath.? Denies any other n (unknown) (no (unknown) (unknown) admitted with (units ( unknown) date) chest pain.? unknown) Patient underwent stress testing and had a low risk (unknown) (no (unknown) (unknown) alcohol intake: (units (unknown) date) never unknown) (unknown) (no (unknown) (unknown) caregiving (units (unkn own) date) concerns.? 1 APS unknown) attempted to make contact with the patient's son, it (unknown) (no (unknown) (unknown) class 2 (06/05/11) (units (unknown) date) unknown) (unknown) (no (unknown) (unknown) does not have (units (u nknown) date) capacity to make unknown) her own healthcare decisions.? Her son is willing (unknown) (no (unknown) (unknown) durable power of (units (unknown) date) research attorney and is unknown) agreeable with placement. (unknown) (no (unknown) (unknown) ew complaints.? (units (unknown) date) She does ask for unknown) something ?strong? for her pain. (unknown) (no (unknown) (unknown) fibrillation on (units (unknown) date) apixaban, history unknown) of congestive heart failure ( unknown if (unknown) (no (unknown) (unknown) household members: (units (unknown) date) children unknown) (unknown) (no (unknown) (unknown) reported the (units (u nknown) date) patient has signed unknown) him out of the [facility] with a machete, looked at (unknown) (no (unknown) (unknown) scan.? She was (units (unknown) date) approved for unknown) discharge on March 18, but staff could not get her (unknown) (no (unknown) (unknown) son on the phone (units (unknown) date) who is her POA.? unknown) She remained in the hospital pending his (unknown) (no (unknown) (unknown) son was able to be (units (unknown) date) engaged in the unknown) process.? He is willing to continue to be her (unknown) (no (unknown) (unknown) supplementation as (units (unknown) date) tolerated.? unknown) Continue multivitamin (unknown) (no (unknown) (unknown) systolic or (units (un known) date) diastolic), unknown) hypertension, hyperlipidemia, and prior stroke who was (unknown) (no (unknown) (unknown) them, and returned (units (unknown) date) into the [facility].? unknown) Patient has since been evaluated by (unknown) (no (unknown) (unknown) today; this time (units (unknown) date) is exclusive of unknown) procedural time. (unknown) (no (unknown) (unknown) was discovered (units (unknown) date) that they had unknown) evidently been evicted.? Additionally, they Result panel 72 (unknown) (no (unknown) (unknown) (no value) (units (unk nown) date) unknown) (unknown) (no (unknown) (unknown) Date of Service: (units (unknown) date) 03/18/22 unknown) (unknown) (no (unknown) (unknown) (no value) (units (unk nown) date) unknown) (unknown) (no (unknown) (unknown) - (units (unkno wn) date) unknown) (unknown) (no (unknown) (unknown) 03/31/22 05:50 (units (unknown) date) unknown) (unknown) (no (unknown) (unknown) [facility] (units (unknown) date) [address] [place] [address] (unknown) (no (unknown) (unknown) Progress Note (units ( unknown) date) unknown) (unknown) (no (unknown) (unknown) (no value) (units (unk nown) date) unknown) (unknown) (no (unknown) (unknown) 04/11/22 (units (unkno wn) date) unknown) (unknown) (no (unknown) (unknown) to continue to be (units (unknown) date) her DPOA.? Awaiting unknown) placement at this time. (unknown) (no (unknown) (unknown) (12/05/17) (units (unk nown) date) unknown) (unknown) (no (unknown) (unknown) (past 8 hours): (units (unknown) date) unknown) (unknown) (no (unknown) (unknown) 03:00 (units (unkno wn) date) unknown) (unknown) (no (unknown) (unknown) 1. Dementia (units (un known) date) unknown) (unknown) (no (unknown) (unknown) .? This is (units (unknown) date) consistent with unknown) dementia.? She will need 18/04 supervision.? She (unknown) (no (unknown) (unknown) 2. 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 Chronic GERD (units (unknown) date) unknown) (unknown) (no (unknown) (unknown) 5. CHF (units (unkno wn) date) unknown) (unknown) (no (unknown) (unknown) 6. Acute severe (units (unknown) date) protein calorie unknown) malnutrition (unknown) (no (unknown) (unknown) 86-year-old female (units (unknown) date) with known coronary unknown) artery disease, permanent atrial (unknown) (no (unknown) (unknown) ? Appears (units (unkn own) date) euvolemic unknown) presently. (unknown) (no (unknown) (unknown) ? Remains rate (units (unknown) date) controlled.? Is on unknown) chronic apixaban. (unknown) (no (unknown) (unknown) ?Code status (units (u nknown) date) unknown) (unknown) (no (unknown) (unknown) ?Disposition (units (u nknown) date) unknown) (unknown) (no (unknown) (unknown) ?Prophylaxis (units (u nknown) date) unknown) (unknown) (no (unknown) (unknown) ABD: Soft, mildly (units (unknown) date) diffusely tender, unknown) ND, BT present in all 4 quadrants, no (unknown) (no (unknown) (unknown) Abdominal pain (units (unknown) date) unknown) (unknown) (no (unknown) (unknown) Acute pancreatitis (units (unknown) date) unknown) (unknown) (no (unknown) (unknown) Age/Sex: 86 / F (units (unknown) date) unknown) (unknown) (no (unknown) (unknown) Anesthesia (units (unk nown) date) unknown) (unknown) (no (unknown) (unknown) Anticoagulated (units (unknown) date) unknown) (unknown) (no (unknown) (unknown) Anxiety (units (unkno wn) date) unknown) 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) (unknown) (no (unknown) (unknown) 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 (09/28/12) (unknown) (no (unknown) (unknown) Assessment + Plan (units (unknown) date) unknown) (unknown) (no (unknown) (unknown) Assessment + Plan (units (unknown) date) narrative: unknown) (unknown) (no (unknown) (unknown) Asthma (units (unkno wn) date) unknown) (unknown) (no (unknown) (unknown) Await placement (units (unknown) date) and safe discharge. 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 (unknown) (no (unknown) (unknown) Cervical cancer, (units (unknown) date) FIGO stage I unknown) (unknown) (no (unknown) (unknown) Chest pain, ruled (units (unknown) date) out for myocardial unknown) infarction, low risk stress test (unknown) (no (unknown) (unknown) Cholelithiasis (units (unknown) date) unknown) (unknown) (no (unknown) (unknown) Chronic back pain (units (unknown) date) unknown) (unknown) (no (unknown) (unknown) Critical Care (units ( unknown) date) time: unknown) (unknown) (no (unknown) (unknown) : 1935 (units (unknown) date) Acct:[id number] unknown) (unknown) (no (unknown) (unknown) Date Patient Seen: (units (unknown) date) 04/11/22 unknown) (unknown) (no (unknown) (unknown) Deep Vein (units (unkn own) date) Thrombosis/Pulmonar unknown) y Embolism Present on Admission: No (unknown) (no (unknown) (unknown) Depression (units (unk nown) date) (emotion) unknown) (unknown) (no (unknown) (unknown) Developmental (units ( unknown) date) disorder unknown) (unknown) (no (unknown) (unknown) Diarrhea (units (unkno wn) date) unknown) (unknown) (no (unknown) (unknown) EXTR: warm, well (units (unknown) date) perfused, no C/C/E unknown) (unknown) (no (unknown) (unknown) Essential (units (unkn own) date) hypertension unknown) (09/28/12) (unknown) (no (unknown) (unknown) Exam (units (unkno wn) date) unknown) (unknown) (no (unknown) (unknown) Exam Narrative: (units (unknown) date) unknown) (unknown) (no (unknown) (unknown) Failure to thrive (units (unknown) date) in adult unknown) (unknown) (no (unknown) (unknown) Family History (units (unknown) date) (Reviewed 03/30/22 unknown) @ 07:25 by Stephane Gonzalez DO) (unknown) (no (unknown) (unknown) Father (units (unknown) date) Myocardial infarct unknown) (unknown) (no (unknown) (unknown) Fibrocystic breast (units (unknown) date) disease unknown) (unknown) (no (unknown) (unknown) Full (units (unkno wn) date) unknown) (unknown) (no (unknown) (unknown) GEN:? Drowsy (units (u nknown) date) elderly female, unknown) lying in the hospital room on bed, NAD (unknown) (no (unknown) (unknown) GERD (units (unkno wn) date) (gastroesophageal unknown) reflux disease) (unknown) (no (unknown) (unknown) HEENT:NC, Face (units (unknown) date) symmetric unknown) (unknown) (no (unknown) (unknown) History of colon (units (unknown) date) polyps (09/28/12) unknown) (unknown) (no (unknown) (unknown) History of left (units (unknown) date) breast cancer unknown) (-2008) (unknown) (no (unknown) (unknown) Hyperlipidemia (units (unknown) date) 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 Nonfocal (units (unknown) date) unknown) (unknown) (no (unknown) (unknown) Narrative (units (unkn own) date) unknown) (unknown) (no (unknown) (unknown) Objective (units (unkn own) date) unknown) (unknown) (no (unknown) (unknown) On apixaban (units (un known) date) unknown) (unknown) (no (unknown) (unknown) Osteoarthritis of (units (unknown) date) knees, bilateral unknown) (unknown) (no (unknown) (unknown) Oxygen Delivery (units (unknown) date) Method Room Air unknown) (unknown) (no (unknown) (unknown) Oxygen Delivery (units (unknown) date) Method Room Air unknown) (unknown) (no (unknown) (unknown) Oxygen Flow Rate (units (unknown) date) 0 unknown) (unknown) (no (unknown) (unknown) Oxygen Flow Rate 0 (units (unknown) date) unknown) (unknown) (no (unknown) (unknown) PFSH (units (unkno wn) date) unknown) (unknown) (no (unknown) (unknown) Patient complains (units (unknown) date) of pain all over unknown) today.? She otherwise does not provide much (unknown) (no (unknown) (unknown) Patient has had a (units (unknown) date) 7.5% weight loss unknown) over the last 3 months.? 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 Since that time, patient's (unknown) (no (unknown) (unknown) Pulse Oximetry 95 (units (unknown) date) unknown) (unknown) (no (unknown) (unknown) Quality (units (unkno wn) date) unknown) (unknown) (no (unknown) (unknown) Result Diagrams: (units (unknown) date) unknown) (unknown) (no (unknown) (unknown) Result issues: (units (unknown) date) unknown) (unknown) (no (unknown) (unknown) SKIN: warm and (units (unknown) date) dry, no rash unknown) (unknown) (no (unknown) (unknown) Signed By: (units (unk nown) date) unknown) (unknown) (no (unknown) (unknown) Sister (units (unknown) date) Traumatic unknown) amputation (unknown) (no (unknown) (unknown) Slums assessment (units (unknown) date) was performed unknown) earlier this hospitalization with a score of (unknown) (no (unknown) (unknown) Smoking Status: (units (unknown) date) Never smoker unknown) (unknown) (no (unknown) (unknown) Social History (units (unknown) date) (Reviewed 03/30/22 unknown) @ 07:25 by Stephane Gonzalez DO) (unknown) (no (unknown) (unknown) Speech and (units (unk nown) date) language unknown) 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 unknown) (unknown) (no (unknown) (unknown) Status post (units (un known) date) arthroscopy unknown) (unknown) (no (unknown) (unknown) Status post biopsy (units (unknown) date) () unknown) (unknown) (no (unknown) (unknown) Status post breast (units (unknown) date) lumpectomy () unknown) (unknown) (no (unknown) (unknown) Status post (units (un known) date) cholecystectomy unknown) (unknown) (no (unknown) (unknown) 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 (unknown) (no (unknown) (unknown) Status post (units (un known) date) hysterectomy unknown) () (unknown) (no (unknown) (unknown) Subjective (units (unk nown) date) unknown) (unknown) (no (unknown) (unknown) Surgical History (units (unknown) date) (Reviewed 03/30/22 unknown) @ 07:25 by Stephane Gonzalez DO) (unknown) (no (unknown) (unknown) 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 APS unknown) referral was made March 18 in light of ongoing (unknown) (no (unknown) (unknown) additional (units (unkn own) date) information.? She unknown) denies any shortness of breath.? Denies any other n (unknown) (no (unknown) (unknown) admitted with (units ( unknown) date) chest pain.? unknown) Patient underwent stress testing and had a low risk (unknown) (no (unknown) (unknown) alcohol intake: (units (unknown) date) never unknown) (unknown) (no (unknown) (unknown) caregiving (units (unkn own) date) concerns.? 1 APS unknown) attempted to make contact with the patient's son, it (unknown) (no (unknown) (unknown) class 2 (06/05/11) (units (unknown) date) unknown) (unknown) (no (unknown) (unknown) does not have (units (u nknown) date) capacity to make unknown) her own healthcare decisions.? Her son is willing (unknown) (no (unknown) (unknown) durable power of (units (unknown) date) research attorney and is unknown) agreeable with placement. (unknown) (no (unknown) (unknown) ew complaints.? (units (unknown) date) She does ask for unknown) something ?strong? for her pain. (unknown) (no (unknown) (unknown) fibrillation on (units (unknown) date) apixaban, history unknown) of congestive heart failure ( unknown if (unknown) (no (unknown) (unknown) household members: (units (unknown) date) children unknown) (unknown) (no (unknown) (unknown) organomegaly or (units (unknown) date) masses unknown) (unknown) (no (unknown) (unknown) reported the (units (u nknown) date) patient has signed unknown) him out of the jones with a machete, looked at (unknown) (no (unknown) (unknown) scan.? She was (units (unknown) date) approved for unknown) discharge on March 18, but staff could not get her (unknown) (no (unknown) (unknown) son on the phone (units (unknown) date) who is her POA.? unknown) She remained in the hospital pending his (unknown) (no (unknown) (unknown) son was able to be (units (unknown) date) engaged in the unknown) process.? He is willing to continue to be her (unknown) (no (unknown) (unknown) supplementation as (units (unknown) date) tolerated.? unknown) Continue multivitamin (unknown) (no (unknown) (unknown) systolic or (units (un known) date) diastolic), unknown) hypertension, hyperlipidemia, and prior stroke who was (unknown) (no (unknown) (unknown) them, and returned (units (unknown) date) into the [facility].? unknown) Patient has since been evaluated by (unknown) (no (unknown) (unknown) today; this time (units (unknown) date) is exclusive of unknown) procedural time. (unknown) (no (unknown) (unknown) was discovered (units (unknown) date) that they had unknown) evidently been evicted.? Additionally, they Result panel 73 (unknown) (no date) (unknown) (unknown) 0 /uL (unkn own) (unknown) (no date) (unknown) (unknown) 0.6 % (unkn own) (unknown) (no date) (unknown) (unknown) 11.1 g/dL (unkn own) (unknown) (no date) (unknown) (unknown) 15.8 % (unkn own) (unknown) (no date) (unknown) (unknown) 1600 /uL (unkn own) (unknown) (no date) (unknown) (unknown) 200 /uL (unkn own) (unknown) (no date) (unknown) (unknown) 206 X10 3/uL (unkn own) (unknown) (no date) (unknown) (unknown) 3.1 % (unkn own) (unknown) (no date) (unknown) (unknown) 3.68 X10 6/uL (unkn own) (unknown) (no date) (unknown) (unknown) 30.2 PG (unkn own) (unknown) (no date) (unknown) (unknown) 30.8 % (unkn own) (unknown) (no date) (unknown) (unknown) 3100 /uL (unkn own) (unknown) (no date) (unknown) (unknown) 33.0 % (unkn own) (unknown) (no date) (unknown) (unknown) 33.7 % (unkn own) (unknown) (no date) (unknown) (unknown) 400 /uL (unkn own) (unknown) (no date) (unknown) (unknown) 5.3 X10 3/uL (unkn own) (unknown) (no date) (unknown) (unknown) 58.7 % (unkn own) (unknown) (no date) (unknown) (unknown) 6.8 % (unkn own) (unknown) (no date) (unknown) (unknown) 91.5 fL (unkn own) Result panel 74 (unknown) (no date) (unknown) (unknown) > 60 mL/min (unkn own) (unknown) (no date) (unknown) (unknown) 0.82 mg/dL (unkn own) (unknown) (no date) (unknown) (unknown) 132 mmol/L (unkn own) (unknown) (no date) (unknown) (unknown) 32 mg/dL (unkn own) (unknown) (no date) (unknown) (unknown) 32 mmol/L (unkn own) (unknown) (no date) (unknown) (unknown) 39.0 (units unknown) (unknown) (unknown) (no date) (unknown) (unknown) 4.7 mmol/L (unkn own) (unknown) (no date) (unknown) (unknown) 8.8 mg/dL (unkn own) (unknown) (no date) (unknown) (unknown) 96 mmol/L (unkn own) (unknown) (no date) (unknown) (unknown) 97 mg/dL (unkn own) Result panel 75 (unknown) (no (unknown) (unknown) (no value) (units (unk nown) date) unknown) (unknown) (no (unknown) (unknown) Date of Service: (units (unknown) date) 03/18/22 unknown) (unknown) (no (unknown) (unknown) (no value) (units (unk nown) date) unknown) (unknown) (no (unknown) (unknown) - (units (unkno wn) date) unknown) (unknown) (no (unknown) (unknown) 04/11/22 08:50 (units (unknown) date) unknown) (unknown) (no (unknown) (unknown) 04/11/22 1356 (units ( unknown) date) unknown) (unknown) (no (unknown) (unknown) [facility] (units (unknown) date) [address] unknown) [place] [id number] (unknown) (no (unknown) (unknown) Progress Note (units ( unknown) date) unknown) (unknown) (no (unknown) (unknown) (no value) (units (unk nown) date) unknown) (unknown) (no (unknown) (unknown) 04/11/22 (units (unkno wn) date) unknown) (unknown) (no (unknown) (unknown) She also is asking (units (unknown) date) for a soda and a unknown) cookie. . (unknown) (no (unknown) (unknown) to continue to be (units (unknown) date) her DPOA.? Awaiting unknown) placement at this time. (unknown) (no (unknown) (unknown) (12/05/17) (units (unk nown) date) unknown) (unknown) (no (unknown) (unknown) (past 8 hours): (units (unknown) date) unknown) (unknown) (no (unknown) (unknown) 03:00 (units (unkno wn) date) unknown) (unknown) (no (unknown) (unknown) 1. Dementia (units (un known) date) unknown) (unknown) (no (unknown) (unknown) .? This is (units (unknown) date) consistent with unknown) dementia.? She will need 24/ supervision.? She (unknown) (no (unknown) (unknown) 2. 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 Chronic GERD (units (unknown) date) unknown) (unknown) (no (unknown) (unknown) 5. CHF (units (unkno wn) date) unknown) (unknown) (no (unknown) (unknown) 6. Acute severe (units (unknown) date) protein calorie unknown) malnutrition (unknown) (no (unknown) (unknown) 7. Generalized (units (unknown) date) pain and headache unknown) (unknown) (no (unknown) (unknown) 86-year-old female (units (unknown) date) with known coronary unknown) artery disease, permanent atrial (unknown) (no (unknown) (unknown) ? Appears (units (unkn own) date) euvolemic unknown) presently. (unknown) (no (unknown) (unknown) ? Remains rate (units (unknown) date) controlled.? Is on unknown) chronic apixaban. (unknown) (no (unknown) (unknown) ?Code status (units (u nknown) date) unknown) (unknown) (no (unknown) (unknown) ?Disposition (units (u nknown) date) unknown) (unknown) (no (unknown) (unknown) ?Prophylaxis (units (u nknown) date) unknown) (unknown) (no (unknown) (unknown) ABD: Soft, (units (unk nown) date) nontenderr, ND, BT unknown) present in all 4 quadrants, no organomegaly or (unknown) (no (unknown) (unknown) Abdominal pain (units (unknown) date) unknown) (unknown) (no (unknown) (unknown) Acute pancreatitis (units (unknown) date) unknown) (unknown) (no (unknown) (unknown) Age/Sex: 86 / F (units (unknown) date) unknown) (unknown) (no (unknown) (unknown) Anesthesia (units (unk nown) date) unknown) (unknown) (no (unknown) (unknown) Anticoagulated (units (unknown) date) unknown) (unknown) (no (unknown) (unknown) Anxiety (units (unkno wn) date) unknown) 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 This is a frequent complaint for (unknown) (no (unknown) (unknown) Critical Care (units ( unknown) date) time: unknown) (unknown) (no (unknown) (unknown) : 1935 (units (unknown) date) Acct:[id number] unknown) (unknown) (no (unknown) (unknown) Date Patient Seen: (units (unknown) date) 04/11/22 unknown) (unknown) (no (unknown) (unknown) Deep Vein (units (unkn own) date) Thrombosis/Pulmonar unknown) y Embolism Present on Admission: No (unknown) (no (unknown) (unknown) Depression (units (unk nown) date) (emotion) unknown) (unknown) (no (unknown) (unknown) Developmental (units ( unknown) date) disorder unknown) (unknown) (no (unknown) (unknown) Diarrhea (units (unkno wn) date) unknown) (unknown) (no (unknown) (unknown) EXTR: warm, well (units (unknown) date) perfused, no C/C/E unknown) (unknown) (no (unknown) (unknown) Essential (units (unkn own) date) hypertension unknown) (09/28/12) (unknown) (no (unknown) (unknown) Exam (units (unkno wn) date) unknown) (unknown) (no (unknown) (unknown) Exam Narrative: (units (unknown) date) unknown) (unknown) (no (unknown) (unknown) Failure to thrive (units (unknown) date) in adult unknown) (unknown) (no (unknown) (unknown) Family History (units (unknown) date) (Reviewed 03/30/22 unknown) @ 07:25 by Stephane Gonzalez DO) (unknown) (no (unknown) (unknown) Father (units (unknown) date) Myocardial infarct unknown) (unknown) (no (unknown) (unknown) Fibrocystic breast (units (unknown) date) disease unknown) (unknown) (no (unknown) (unknown) Full (units (unkno wn) date) unknown) (unknown) (no (unknown) (unknown) GEN:? Alert and (units (unknown) date) cooperative elderly unknown) female, lying in the hospital room on bed, (unknown) (no (unknown) (unknown) GERD (units (unkno wn) date) (gastroesophageal unknown) reflux disease) (unknown) (no (unknown) (unknown) HEENT:NC, Face (units (unknown) date) symmetric unknown) (unknown) (no (unknown) (unknown) History of colon (units (unknown) date) polyps (09/28/12) unknown) (unknown) (no (unknown) (unknown) History of left (units (unknown) date) breast cancer unknown) () (unknown) (no (unknown) (unknown) Hyperlipidemia (units (unknown) date) 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 Nonfocal (units (unknown) date) unknown) (unknown) (no (unknown) (unknown) Narrative (units (unkn own) date) unknown) (unknown) (no (unknown) (unknown) Objective (units (unkn own) date) unknown) (unknown) (no (unknown) (unknown) On apixaban (units (un known) date) unknown) (unknown) (no (unknown) (unknown) Osteoarthritis of (units (unknown) date) knees, bilateral unknown) (unknown) (no (unknown) (unknown) Oxygen Delivery (units (unknown) date) Method Room Air unknown) (unknown) (no (unknown) (unknown) Oxygen Delivery (units (unknown) date) Method Room Air unknown) (unknown) (no (unknown) (unknown) Oxygen Flow Rate (units (unknown) date) 0 unknown) (unknown) (no (unknown) (unknown) Oxygen Flow Rate 0 (units (unknown) date) unknown) (unknown) (no (unknown) (unknown) PFSH (units (unkno wn) date) unknown) (unknown) (no (unknown) (unknown) Patient has had a (units (unknown) date) 7.5% weight loss unknown) over the last 3 months.? Oral nutritional (unknown) (no (unknown) (unknown) Patient reports she (units (unknown) date) is having another unknown) bed date today. 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 Since that time, patient's (unknown) (no (unknown) (unknown) Pulse Oximetry 95 (units (unknown) date) unknown) (unknown) (no (unknown) (unknown) Quality (units (unkno wn) date) unknown) (unknown) (no (unknown) (unknown) Result Diagrams: (units (unknown) date) unknown) (unknown) (no (unknown) (unknown) Result issues: (units (unknown) date) unknown) (unknown) (no (unknown) (unknown) SKIN: warm and (units (unknown) date) dry, no rash unknown) (unknown) (no (unknown) (unknown) Signed (units (unkno wn) date) By:<Electronically unknown) signed by Linda David MD> (unknown) (no (unknown) (unknown) Sister (units (unknown) date) Traumatic unknown) amputation (unknown) (no (unknown) (unknown) Slums assessment (units (unknown) date) was performed unknown) earlier this hospitalization with a score of (unknown) (no (unknown) (unknown) Smoking Status: (units (unknown) date) Never smoker unknown) (unknown) (no (unknown) (unknown) Social History (units (unknown) date) (Reviewed 03/30/22 unknown) @ 07:25 by Stephane Gonzalez DO) (unknown) (no (unknown) (unknown) Speech and (units (unk nown) date) language unknown) 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 unknown) (unknown) (no (unknown) (unknown) Status post (units (un known) date) arthroscopy unknown) (unknown) (no (unknown) (unknown) Status post biopsy (units (unknown) date) () unknown) (unknown) (no (unknown) (unknown) Status post breast (units (unknown) date) lumpectomy () unknown) (unknown) (no (unknown) (unknown) Status post (units (un known) date) cholecystectomy unknown) (unknown) (no (unknown) (unknown) 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 (unknown) (no (unknown) (unknown) Status post (units (un known) date) hysterectomy unknown) () (unknown) (no (unknown) (unknown) Subjective (units (unk nown) date) unknown) (unknown) (no (unknown) (unknown) Surgical History (units (unknown) date) (Reviewed 03/30/22 unknown) @ 07:25 by Stephane Gonzalez DO) (unknown) (no (unknown) (unknown) 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 APS unknown) referral was made March 18 in light of ongoing (unknown) (no (unknown) (unknown) admitted with (units ( unknown) date) chest pain.? unknown) Patient underwent stress testing and had a low risk (unknown) (no (unknown) (unknown) alcohol intake: (units (unknown) date) never unknown) (unknown) (no (unknown) (unknown) but thinks she may (units (unknown) date) need another. She unknown) states she did eat a good breakfast today. (unknown) (no (unknown) (unknown) caregiving (units (unkn own) date) concerns.? 1 APS unknown) attempted to make contact with the patient's son, it (unknown) (no (unknown) (unknown) class 2 (06/05/11) (units (unknown) date) unknown) (unknown) (no (unknown) (unknown) does not have (units (u nknown) date) capacity to make unknown) her own healthcare decisions.? Her son is willing (unknown) (no (unknown) (unknown) durable power of (units (unknown) date) research attorney and is unknown) agreeable with placement. (unknown) (no (unknown) (unknown) fibrillation on (units (unknown) date) apixaban, history unknown) of congestive heart failure ( unknown if (unknown) (no (unknown) (unknown) her. (units (unkno wn) date) unknown) (unknown) (no (unknown) (unknown) household members: (units (unknown) date) children unknown) (unknown) (no (unknown) (unknown) masses (units (unkno wn) date) unknown) (unknown) (no (unknown) (unknown) of headache and (units (unknown) date) all over pain. She unknown) states she did have a pain pill a while ago (unknown) (no (unknown) (unknown) reported the (units (u nknown) date) patient has signed unknown) him out of the jones with a machete, looked at (unknown) (no (unknown) (unknown) scan.? She was (units (unknown) date) approved for unknown) discharge on March 18, but staff could not get her (unknown) (no (unknown) (unknown) son on the phone (units (unknown) date) who is her POA.? unknown) She remained in the hospital pending his (unknown) (no (unknown) (unknown) son was able to be (units (unknown) date) engaged in the unknown) process.? He is willing to continue to be her (unknown) (no (unknown) (unknown) supplementation as (units (unknown) date) tolerated.? unknown) Continue multivitamin (unknown) (no (unknown) (unknown) systolic or (units (un known) date) diastolic), unknown) hypertension, hyperlipidemia, and prior stroke who was (unknown) (no (unknown) (unknown) them, and returned (units (unknown) date) into the [facility].? unknown) Patient has since been evaluated by (unknown) (no (unknown) (unknown) today; this time (units (unknown) date) is exclusive of unknown) procedural time. (unknown) (no (unknown) (unknown) was discovered (units (unknown) date) that they had unknown) evidently been evicted.? Additionally, they Result panel 76 (unknown) (no (unknown) (unknown) (no value) (units (unk nown) date) unknown) (unknown) (no (unknown) (unknown) Date of Service: (units (unknown) date) 03/18/22 unknown) (unknown) (no (unknown) (unknown) (no value) (units (unk nown) date) unknown) (unknown) (no (unknown) (unknown) - (units (unkno wn) date) unknown) (unknown) (no (unknown) (unknown) 04/11/22 08:50 (units (unknown) date) unknown) (unknown) (no (unknown) (unknown) [facility] (units (unknown) date) [address] unknown) [place] [address] (unknown) (no (unknown) (unknown) Laboratory Results (units (unknown) date) - last 24 hr unknown) (unknown) (no (unknown) (unknown) Progress Note (units ( unknown) date) unknown) (unknown) (no (unknown) (unknown) (no value) (units (unk nown) date) unknown) (unknown) (no (unknown) (unknown) 04/11/22 04/11/22 (units (unknown) date) unknown) (unknown) (no (unknown) (unknown) 08:50 08:50 (units (un known) date) unknown) (unknown) (no (unknown) (unknown) 04/12/22 (units (unkno wn) date) unknown) (unknown) (no (unknown) (unknown) to continue to be (units (unknown) date) her DPOA.? Awaiting unknown) placement at this time. (unknown) (no (unknown) (unknown) (12/05/17) (units (unk nown) date) unknown) (unknown) (no (unknown) (unknown) (past 8 hours): (units (unknown) date) unknown) (unknown) (no (unknown) (unknown) 03:00 (units (unkno wn) date) unknown) (unknown) (no (unknown) (unknown) 1. Dementia (units (un known) date) unknown) (unknown) (no (unknown) (unknown) .? This is (units (unknown) date) consistent with unknown) dementia.? She will need / supervision.? She (unknown) (no (unknown) (unknown) 2. 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 Chronic GERD (units (unknown) date) unknown) (unknown) (no (unknown) (unknown) 5. CHF (units (unkno wn) date) unknown) (unknown) (no (unknown) (unknown) 6. Acute severe (units (unknown) date) protein calorie unknown) malnutrition (unknown) (no (unknown) (unknown) 7. Generalized (units (unknown) date) pain and headache unknown) (unknown) (no (unknown) (unknown) 86-year-old female (units (unknown) date) with known coronary unknown) artery disease, permanent atrial (unknown) (no (unknown) (unknown) ? Appears (units (unkn own) date) euvolemic unknown) presently. (unknown) (no (unknown) (unknown) ? Remains rate (units (unknown) date) controlled.? Is on unknown) chronic apixaban. (unknown) (no (unknown) (unknown) ?Code status (units (u nknown) date) unknown) (unknown) (no (unknown) (unknown) ?Disposition (units (u nknown) date) unknown) (unknown) (no (unknown) (unknown) ?Prophylaxis (units (u nknown) date) unknown) (unknown) (no (unknown) (unknown) ABD: Soft, (units (unk nown) date) nontenderr, ND, BT unknown) present in all 4 quadrants, no organomegaly or (unknown) (no (unknown) (unknown) Abdominal pain (units (unknown) date) unknown) (unknown) (no (unknown) (unknown) Acute pancreatitis (units (unknown) date) unknown) (unknown) (no (unknown) (unknown) Age/Sex: 86 / F (units (unknown) date) unknown) (unknown) (no (unknown) (unknown) Anesthesia (units (unk nown) date) unknown) (unknown) (no (unknown) (unknown) Anticoagulated (units (unknown) date) unknown) (unknown) (no (unknown) (unknown) Anxiety (units (unkno wn) date) unknown) 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 unknown) (unknown) (no (unknown) (unknown) BUN 32 H (units (unk nown) date) unknown) (unknown) (no (unknown) (unknown) BUN/Creatinine (units (unknown) date) Ratio 39.0 H unknown) (unknown) (no (unknown) (unknown) Baso # (Auto) 0 (units (unknown) date) unknown) (unknown) (no (unknown) (unknown) Baso % (Auto) 0.6 (units (unknown) date) unknown) (unknown) (no (unknown) (unknown) Breast cancer (units ( unknown) date) (-2001) unknown) (unknown) (no (unknown) (unknown) 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) unknown) (unknown) (no (unknown) (unknown) CHEST: Respiratory (units (unknown) date) excursions unknown) symmetric, CTAB (unknown) (no (unknown) (unknown) CV:? 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 This is a frequent complaint for (unknown) (no (unknown) (unknown) Creatinine 0.82 (units (unknown) date) unknown) (unknown) (no (unknown) (unknown) Critical Care (units ( unknown) date) time: unknown) (unknown) (no (unknown) (unknown) : 1935 (units (unknown) date) Acct:[id number] unknown) (unknown) (no (unknown) (unknown) Date Patient Seen: (units (unknown) date) 04/12/22 unknown) (unknown) (no (unknown) (unknown) Deep Vein (units (unkn own) date) Thrombosis/Pulmonar unknown) y Embolism Present on Admission: No (unknown) (no (unknown) (unknown) Depression (units (unk nown) date) (emotion) unknown) (unknown) (no (unknown) (unknown) Developmental (units ( unknown) date) disorder unknown) (unknown) (no (unknown) (unknown) Diarrhea (units (unkno wn) date) unknown) (unknown) (no (unknown) (unknown) EXTR: warm, well (units (unknown) date) perfused, no C/C/E unknown) (unknown) (no (unknown) (unknown) Eos # (Auto) 200 (units (unknown) date) unknown) (unknown) (no (unknown) (unknown) Eos % (Auto) 3.1 (units (unknown) date) unknown) (unknown) (no (unknown) (unknown) Essential (units (unkn own) date) hypertension unknown) (09/28/12) (unknown) (no (unknown) (unknown) Estimated GFR > (units (unknown) date) 60 unknown) (unknown) (no (unknown) (unknown) Exam (units (unkno wn) date) unknown) (unknown) (no (unknown) (unknown) Exam Narrative: (units (unknown) date) unknown) (unknown) (no (unknown) (unknown) Failure to thrive (units (unknown) date) in adult unknown) (unknown) (no (unknown) (unknown) Family History (units (unknown) date) (Reviewed 03/30/22 unknown) @ 07:25 by Stephane Gonzalez DO) (unknown) (no (unknown) (unknown) Father (units (unknown) date) Myocardial infarct unknown) (unknown) (no (unknown) (unknown) Fibrocystic breast (units (unknown) date) disease unknown) (unknown) (no (unknown) (unknown) Full (units (unkno wn) date) unknown) (unknown) (no (unknown) (unknown) GEN:? Alert and (units (unknown) date) cooperative elderly unknown) female, lying in the hospital room on bed, (unknown) (no (unknown) (unknown) GERD (units (unkno wn) date) (gastroesophageal unknown) reflux disease) (unknown) (no (unknown) (unknown) Glucose 97 (units (u nknown) date) unknown) (unknown) (no (unknown) (unknown) HEENT:NC, Face (units (unknown) date) symmetric unknown) (unknown) (no (unknown) (unknown) Hct 33.7 L (units (un known) date) unknown) (unknown) (no (unknown) (unknown) Hgb 11.1 L (units (un known) date) unknown) (unknown) (no (unknown) (unknown) History of colon (units (unknown) date) polyps (09/28/12) unknown) (unknown) (no (unknown) (unknown) History of left (units (unknown) date) breast cancer unknown) () (unknown) (no (unknown) (unknown) Hyperlipidemia (units (unknown) date) 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) unknown) (unknown) (no (unknown) (unknown) Interval history: (units (unknown) date) unknown) (unknown) (no (unknown) (unknown) Labs (units (unkno wn) date) unknown) (unknown) (no (unknown) (unknown) Labs: (units (unkno wn) date) unknown) (unknown) (no (unknown) (unknown) Low risk nuclear (units (unknown) date) stress test this unknown) admission. (unknown) (no (unknown) (unknown) Lymph # (Auto) (units (unknown) date) 1600 unknown) (unknown) (no (unknown) (unknown) Lymph % (Auto) (units (unknown) date) 30.8 unknown) (unknown) (no (unknown) (unknown) [id number] (units (unk nown) date) unknown) (unknown) (no (unknown) (unknown) MCH 30.2 (units (unkn own) date) unknown) (unknown) (no (unknown) (unknown) MCHC 33.0 (units (unk nown) date) unknown) (unknown) (no (unknown) (unknown) MCV 91.5 (units (unkn own) date) unknown) (unknown) (no (unknown) (unknown) Measles (units (unkno wn) date) unknown) (unknown) (no (unknown) (unknown) Medical History (units (unknown) date) (Reviewed 03/30/22 unknown) @ 07:25 by Stephane Gonzalez DO) 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 Nonfocal (units (unknown) date) unknown) (unknown) (no (unknown) (unknown) Narrative (units (unkn own) date) unknown) (unknown) (no (unknown) (unknown) Neut # (Auto) (units ( unknown) date) 3100 unknown) (unknown) (no (unknown) (unknown) Neut % (Auto) (units ( unknown) date) 58.7 unknown) (unknown) (no (unknown) (unknown) Objective (units (unkn own) date) unknown) (unknown) (no (unknown) (unknown) On apixaban (units (un known) date) unknown) (unknown) (no (unknown) (unknown) Osteoarthritis of (units (unknown) date) knees, bilateral unknown) (unknown) (no (unknown) (unknown) Oxygen Delivery (units (unknown) date) Method Room Air unknown) (unknown) (no (unknown) (unknown) Oxygen Delivery (units (unknown) date) Method Room Air unknown) (unknown) (no (unknown) (unknown) Oxygen Flow Rate (units (unknown) date) 0 unknown) (unknown) (no (unknown) (unknown) PFSH (units (unkno wn) date) unknown) (unknown) (no (unknown) (unknown) Patient has had a (units (unknown) date) 7.5% weight loss unknown) over the last 3 months.? Oral nutritional (unknown) (no (unknown) (unknown) Patient reports she (units (unknown) date) is having another unknown) bed date today.? 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 Since that time, patient's (unknown) (no (unknown) (unknown) Pulse Oximetry 97 (units (unknown) date) unknown) (unknown) (no (unknown) (unknown) Quality (units (unkno wn) date) unknown) (unknown) (no (unknown) (unknown) RBC 3.68 L (units (un known) date) unknown) (unknown) (no (unknown) (unknown) RDW 15.8 H (units (un known) date) unknown) (unknown) (no (unknown) (unknown) Result Diagrams: (units (unknown) date) unknown) (unknown) (no (unknown) (unknown) Result issues: (units (unknown) date) unknown) (unknown) (no (unknown) (unknown) SKIN: warm and (units (unknown) date) dry, no rash unknown) (unknown) (no (unknown) (unknown) Signed By: (units (unk nown) date) unknown) (unknown) (no (unknown) (unknown) Sister (units (unknown) date) Traumatic unknown) amputation (unknown) (no (unknown) (unknown) Slums assessment (units (unknown) date) was performed unknown) earlier this hospitalization with a score of (unknown) (no (unknown) (unknown) Smoking Status: (units (unknown) date) Never smoker unknown) (unknown) (no (unknown) (unknown) Social History (units (unknown) date) (Reviewed 03/30/22 unknown) @ 07:25 by Stephane Gonzalez DO) (unknown) (no (unknown) (unknown) Sodium 132 L (units (unknown) date) unknown) (unknown) (no (unknown) (unknown) Speech and (units (unk nown) date) language unknown) 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 unknown) (unknown) (no (unknown) (unknown) Status post (units (un known) date) arthroscopy unknown) (unknown) (no (unknown) (unknown) Status post biopsy (units (unknown) date) () unknown) (unknown) (no (unknown) (unknown) Status post breast (units (unknown) date) lumpectomy () unknown) (unknown) (no (unknown) (unknown) Status post (units (un known) date) cholecystectomy unknown) (unknown) (no (unknown) (unknown) 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 (unknown) (no (unknown) (unknown) Status post (units (un known) date) hysterectomy unknown) () (unknown) (no (unknown) (unknown) Subjective (units (unk nown) date) unknown) (unknown) (no (unknown) (unknown) Surgical History (units (unknown) date) (Reviewed 03/30/22 unknown) @ 07:25 by Stephane A Gonzalez, DO) (unknown) (no (unknown) (unknown) 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 APS unknown) referral was made March 18 in light of ongoing (unknown) (no (unknown) (unknown) admitted with (units ( unknown) date) chest pain.? unknown) Patient underwent stress testing and had a low risk (unknown) (no (unknown) (unknown) alcohol intake: (units (unknown) date) never unknown) (unknown) (no (unknown) (unknown) but thinks she may (units (unknown) date) need another.? She unknown) states she did eat a good breakfast (unknown) (no (unknown) (unknown) caregiving (units (unkn own) date) concerns.? 1 APS unknown) attempted to make contact with the patient's son, it (unknown) (no (unknown) (unknown) class 2 (06/05/11) (units (unknown) date) unknown) (unknown) (no (unknown) (unknown) does not have (units (u nknown) date) capacity to make unknown) her own healthcare decisions.? Her son is willing (unknown) (no (unknown) (unknown) durable power of (units (unknown) date) research attorney and is unknown) agreeable with placement. (unknown) (no (unknown) (unknown) fibrillation on (units (unknown) date) apixaban, history unknown) of congestive heart failure ( unknown if (unknown) (no (unknown) (unknown) her. (units (unkno wn) date) unknown) (unknown) (no (unknown) (unknown) household members: (units (unknown) date) children unknown) (unknown) (no (unknown) (unknown) masses (units (unkno wn) date) unknown) (unknown) (no (unknown) (unknown) of headache and (units (unknown) date) all over pain.? She unknown) states she did have a pain pill a while ago (unknown) (no (unknown) (unknown) reported the (units (u nknown) date) patient has signed unknown) him out of the [facility] with a machete, looked at (unknown) (no (unknown) (unknown) scan.? She was (units (unknown) date) approved for unknown) discharge on March 18, but staff could not get her (unknown) (no (unknown) (unknown) son on the phone (units (unknown) date) who is her POA.? unknown) She remained in the hospital pending his (unknown) (no (unknown) (unknown) son was able to be (units (unknown) date) engaged in the unknown) process.? He is willing to continue to be her (unknown) (no (unknown) (unknown) supplementation as (units (unknown) date) tolerated.? unknown) Continue multivitamin (unknown) (no (unknown) (unknown) systolic or (units (un known) date) diastolic), unknown) hypertension, hyperlipidemia, and prior stroke who was (unknown) (no (unknown) (unknown) them, and returned (units (unknown) date) into the [facility].? unknown) Patient has since been evaluated by (unknown) (no (unknown) (unknown) today.? She also (units (unknown) date) is asking for a unknown) soda and a cookie. . (unknown) (no (unknown) (unknown) today; this time (units (unknown) date) is exclusive of unknown) procedural time. (unknown) (no (unknown) (unknown) was discovered (units (unknown) date) that they had unknown) evidently been evicted.? Additionally, they Result panel 77 (unknown) (no (unknown) (unknown) (no value) (units (unk nown) date) unknown) (unknown) (no (unknown) (unknown) Date of Service: (units (unknown) date) 03/18/22 unknown) (unknown) (no (unknown) (unknown) (no value) (units (unk nown) date) unknown) (unknown) (no (unknown) (unknown) - (units (unkno wn) date) unknown) (unknown) (no (unknown) (unknown) 04/11/22 08:50 (units (unknown) date) unknown) (unknown) (no (unknown) (unknown) 04/12/22 1129 (units ( unknown) date) unknown) (unknown) (no (unknown) (unknown) [facility] (units (unknown) date) [address] unknown) [place] [address] (unknown) (no (unknown) (unknown) Laboratory Results (units (unknown) date) - last 24 hr unknown) (unknown) (no (unknown) (unknown) Progress Note (units ( unknown) date) unknown) (unknown) (no (unknown) (unknown) (no value) (units (unk nown) date) unknown) (unknown) (no (unknown) (unknown) 04/11/22 04/11/22 (units (unknown) date) unknown) (unknown) (no (unknown) (unknown) 08:50 08:50 (units (un known) date) unknown) (unknown) (no (unknown) (unknown) 04/12/22 (units (unkno wn) date) unknown) (unknown) (no (unknown) (unknown) to continue to be (units (unknown) date) her DPOA.? Awaiting unknown) placement at this time. (unknown) (no (unknown) (unknown) (12/05/17) (units (unk nown) date) unknown) (unknown) (no (unknown) (unknown) (past 8 hours): (units (unknown) date) unknown) (unknown) (no (unknown) (unknown) 03:00 (units (unkno wn) date) unknown) (unknown) (no (unknown) (unknown) 1. Dementia (units (un known) date) unknown) (unknown) (no (unknown) (unknown) .? This is (units (unknown) date) consistent with unknown) dementia.? She will need 24/7 supervision.? She (unknown) (no (unknown) (unknown) 2. 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 Chronic GERD (units (unknown) date) unknown) (unknown) (no (unknown) (unknown) 5. CHF (units (unkno wn) date) unknown) (unknown) (no (unknown) (unknown) 6. Acute severe (units (unknown) date) protein calorie unknown) malnutrition (unknown) (no (unknown) (unknown) 7. Generalized (units (unknown) date) pain and headache unknown) (unknown) (no (unknown) (unknown) 86-year-old female (units (unknown) date) with known coronary unknown) artery disease, permanent atrial (unknown) (no (unknown) (unknown) ? Remains rate (units (unknown) date) controlled.? Is on unknown) chronic apixaban. (unknown) (no (unknown) (unknown) ?Code status (units (u nknown) date) unknown) (unknown) (no (unknown) (unknown) ?Disposition (units (u nknown) date) unknown) (unknown) (no (unknown) (unknown) ?Prophylaxis (units (u nknown) date) unknown) (unknown) (no (unknown) (unknown) ?Remains (units (unkno wn) date) euvolemic. unknown) (unknown) (no (unknown) (unknown) ABD: Soft, mildly (units (unknown) date) diffuse tenderness, unknown) ND, BT present in all 4 quadrants, no (unknown) (no (unknown) (unknown) Abdominal pain (units (unknown) date) unknown) (unknown) (no (unknown) (unknown) Acute pancreatitis (units (unknown) date) unknown) (unknown) (no (unknown) (unknown) Age/Sex: 86 / F (units (unknown) date) unknown) (unknown) (no (unknown) (unknown) Anesthesia (units (unk nown) date) unknown) (unknown) (no (unknown) (unknown) Anticoagulated (units (unknown) date) unknown) (unknown) (no (unknown) (unknown) Anxiety (units (unkno wn) date) unknown) 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 unknown) (unknown) (no (unknown) (unknown) BUN 32 H (units (unk nown) date) unknown) (unknown) (no (unknown) (unknown) BUN/Creatinine (units (unknown) date) Ratio 39.0 H unknown) (unknown) (no (unknown) (unknown) Baso # (Auto) 0 (units (unknown) date) unknown) (unknown) (no (unknown) (unknown) Baso % (Auto) 0.6 (units (unknown) date) unknown) (unknown) (no (unknown) (unknown) Breast cancer (units ( unknown) date) () unknown) (unknown) (no (unknown) (unknown) 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) unknown) (unknown) (no (unknown) (unknown) CHEST: Respiratory (units (unknown) date) excursions unknown) symmetric, CTAB (unknown) (no (unknown) (unknown) CV:? 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 This is a frequent complaint for (unknown) (no (unknown) (unknown) Creatinine 0.82 (units (unknown) date) unknown) (unknown) (no (unknown) (unknown) Critical Care (units ( unknown) date) time: unknown) (unknown) (no (unknown) (unknown) : 1935 (units (unknown) date) Acct:[id number] unknown) (unknown) (no (unknown) (unknown) Date Patient Seen: (units (unknown) date) 04/12/22 unknown) (unknown) (no (unknown) (unknown) Deep Vein (units (unkn own) date) Thrombosis/Pulmonar unknown) y Embolism Present on Admission: No (unknown) (no (unknown) (unknown) Depression (units (unk nown) date) (emotion) unknown) (unknown) (no (unknown) (unknown) Developmental (units ( unknown) date) disorder unknown) (unknown) (no (unknown) (unknown) Diarrhea (units (unkno wn) date) unknown) (unknown) (no (unknown) (unknown) EXTR: warm, well (units (unknown) date) perfused, no C/C/E unknown) (unknown) (no (unknown) (unknown) Eos # (Auto) 200 (units (unknown) date) unknown) (unknown) (no (unknown) (unknown) Eos % (Auto) 3.1 (units (unknown) date) unknown) (unknown) (no (unknown) (unknown) Essential (units (unkn own) date) hypertension unknown) (09/28/12) (unknown) (no (unknown) (unknown) Estimated GFR > (units (unknown) date) 60 unknown) (unknown) (no (unknown) (unknown) Exam (units (unkno wn) date) unknown) (unknown) (no (unknown) (unknown) Exam Narrative: (units (unknown) date) unknown) (unknown) (no (unknown) (unknown) Failure to thrive (units (unknown) date) in adult unknown) (unknown) (no (unknown) (unknown) Family History (units (unknown) date) (Reviewed 03/30/22 unknown) @ 07:25 by Stephane Gonzalez DO) (unknown) (no (unknown) (unknown) Father (units (unknown) date) Myocardial infarct unknown) (unknown) (no (unknown) (unknown) Fibrocystic breast (units (unknown) date) disease unknown) (unknown) (no (unknown) (unknown) Full (units (unkno wn) date) unknown) (unknown) (no (unknown) (unknown) GEN:? Alert and (units (unknown) date) cooperative elderly unknown) female, lying in the hospital room on bed, (unknown) (no (unknown) (unknown) GERD (units (unkno wn) date) (gastroesophageal unknown) reflux disease) (unknown) (no (unknown) (unknown) Glucose 97 (units (u nknown) date) unknown) (unknown) (no (unknown) (unknown) HEENT:NC, Face (units (unknown) date) symmetric unknown) (unknown) (no (unknown) (unknown) Hct 33.7 L (units (un known) date) unknown) (unknown) (no (unknown) (unknown) Hgb 11.1 L (units (un known) date) unknown) (unknown) (no (unknown) (unknown) History of colon (units (unknown) date) polyps (09/28/12) unknown) (unknown) (no (unknown) (unknown) History of left (units (unknown) date) breast cancer unknown) () (unknown) (no (unknown) (unknown) Hyperlipidemia (units (unknown) date) 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) unknown) (unknown) (no (unknown) (unknown) Interval history: (units (unknown) date) unknown) (unknown) (no (unknown) (unknown) Labs (units (unkno wn) date) unknown) (unknown) (no (unknown) (unknown) Labs: (units (unkno wn) date) unknown) (unknown) (no (unknown) (unknown) Low risk nuclear (units (unknown) date) stress test this unknown) admission. (unknown) (no (unknown) (unknown) Lymph # (Auto) (units (unknown) date) 1600 unknown) (unknown) (no (unknown) (unknown) Lymph % (Auto) (units (unknown) date) 30.8 unknown) (unknown) (no (unknown) (unknown) [id number] (units (unk nown) date) unknown) (unknown) (no (unknown) (unknown) MCH 30.2 (units (unkn own) date) unknown) (unknown) (no (unknown) (unknown) MCHC 33.0 (units (unk nown) date) unknown) (unknown) (no (unknown) (unknown) MCV 91.5 (units (unkn own) date) unknown) (unknown) (no (unknown) (unknown) Measles (units (unkno wn) date) unknown) (unknown) (no (unknown) (unknown) Medical History (units (unknown) date) (Reviewed 03/30/22 unknown) @ 07:25 by Stephane Gonzalez DO) 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 Nonfocal (units (unknown) date) unknown) (unknown) (no (unknown) (unknown) Narrative (units (unkn own) date) unknown) (unknown) (no (unknown) (unknown) Neut # (Auto) (units ( unknown) date) 3100 unknown) (unknown) (no (unknown) (unknown) Neut % (Auto) (units ( unknown) date) 58.7 unknown) (unknown) (no (unknown) (unknown) Objective (units (unkn own) date) unknown) (unknown) (no (unknown) (unknown) On apixaban (units (un known) date) unknown) (unknown) (no (unknown) (unknown) Osteoarthritis of (units (unknown) date) knees, bilateral unknown) (unknown) (no (unknown) (unknown) Oxygen Delivery (units (unknown) date) Method Room Air unknown) (unknown) (no (unknown) (unknown) Oxygen Delivery (units (unknown) date) Method Room Air unknown) (unknown) (no (unknown) (unknown) Oxygen Flow Rate (units (unknown) date) 0 unknown) (unknown) (no (unknown) (unknown) PFSH (units (unkno wn) date) unknown) (unknown) (no (unknown) (unknown) Patient has had a (units (unknown) date) 7.5% weight loss unknown) over the last 3 months.? Oral nutritional (unknown) (no (unknown) (unknown) Patient reports (units (unknown) date) she is having pain unknown) again today.? 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 Since that time, patient's (unknown) (no (unknown) (unknown) Pulse Oximetry 97 (units (unknown) date) unknown) (unknown) (no (unknown) (unknown) Quality (units (unkno wn) date) unknown) (unknown) (no (unknown) (unknown) RBC 3.68 L (units (un known) date) unknown) (unknown) (no (unknown) (unknown) RDW 15.8 H (units (un known) date) unknown) (unknown) (no (unknown) (unknown) Result Diagrams: (units (unknown) date) unknown) (unknown) (no (unknown) (unknown) Result issues: (units (unknown) date) unknown) (unknown) (no (unknown) (unknown) SKIN: warm and (units (unknown) date) dry, no rash unknown) (unknown) (no (unknown) (unknown) Signed (units (unkno wn) date) By:<Electronically unknown) signed by Linda David MD> (unknown) (no (unknown) (unknown) Sister (units (unknown) date) Traumatic unknown) amputation (unknown) (no (unknown) (unknown) Slums assessment (units (unknown) date) was performed unknown) earlier this hospitalization with a score of (unknown) (no (unknown) (unknown) Smoking Status: (units (unknown) date) Never smoker unknown) (unknown) (no (unknown) (unknown) Social History (units (unknown) date) (Reviewed 03/30/22 unknown) @ 07:25 by Stephane Gonzalez DO) (unknown) (no (unknown) (unknown) Sodium 132 L (units (unknown) date) unknown) (unknown) (no (unknown) (unknown) Speech and (units (unk nown) date) language unknown) 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 unknown) (unknown) (no (unknown) (unknown) Status post (units (un known) date) arthroscopy unknown) (unknown) (no (unknown) (unknown) Status post biopsy (units (unknown) date) (-2014) unknown) (unknown) (no (unknown) (unknown) Status post breast (units (unknown) date) lumpectomy (-2008) unknown) (unknown) (no (unknown) (unknown) Status post (units (un known) date) cholecystectomy unknown) (unknown) (no (unknown) (unknown) 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 (unknown) (no (unknown) (unknown) Status post (units (un known) date) hysterectomy unknown) (-2009) (unknown) (no (unknown) (unknown) Subjective (units (unk nown) date) unknown) (unknown) (no (unknown) (unknown) Surgical History (units (unknown) date) (Reviewed 03/30/22 unknown) @ 07:25 by Stephane Gonzalez DO) (unknown) (no (unknown) (unknown) 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 APS unknown) referral was made March 18 in light of ongoing (unknown) (no (unknown) (unknown) admitted with (units ( unknown) date) chest pain.? unknown) Patient underwent stress testing and had a low risk (unknown) (no (unknown) (unknown) alcohol intake: (units (unknown) date) never unknown) (unknown) (no (unknown) (unknown) caregiving (units (unkn own) date) concerns.? 1 APS unknown) attempted to make contact with the patient's son, it (unknown) (no (unknown) (unknown) class 2 (06/05/11) (units (unknown) date) unknown) (unknown) (no (unknown) (unknown) does not have (units (u nknown) date) capacity to make unknown) her own healthcare decisions.? Her son is willing (unknown) (no (unknown) (unknown) durable power of (units (unknown) date) research attorney and is unknown) agreeable with placement. (unknown) (no (unknown) (unknown) fibrillation on (units (unknown) date) apixaban, history unknown) of congestive heart failure ( unknown if (unknown) (no (unknown) (unknown) headache and all (units (unknown) date) over pain.? She is unknown) due for a dose of pain medications. (unknown) (no (unknown) (unknown) her. (units (unkno wn) date) unknown) (unknown) (no (unknown) (unknown) household members: (units (unknown) date) children unknown) (unknown) (no (unknown) (unknown) organomegaly or (units (unknown) date) masses unknown) (unknown) (no (unknown) (unknown) reported the (units (u nknown) date) patient has signed unknown) him out of the [facility] with a machete, looked at (unknown) (no (unknown) (unknown) scan.? She was (units (unknown) date) approved for unknown) discharge on March 18, but staff could not get her (unknown) (no (unknown) (unknown) son on the phone (units (unknown) date) who is her POA.? unknown) She remained in the hospital pending his (unknown) (no (unknown) (unknown) son was able to be (units (unknown) date) engaged in the unknown) process.? He is willing to continue to be her (unknown) (no (unknown) (unknown) supplementation as (units (unknown) date) tolerated.? unknown) Continue multivitamin (unknown) (no (unknown) (unknown) systolic or (units (un known) date) diastolic), unknown) hypertension, hyperlipidemia, and prior stroke who was (unknown) (no (unknown) (unknown) them, and [facility] (units (unknown) date) [facility].? unknown) Patient has since been evaluated by (unknown) (no (unknown) (unknown) today; this time (units (unknown) date) is exclusive of unknown) procedural time. (unknown) (no (unknown) (unknown) was discovered (units (unknown) date) that they had unknown) evidently been evicted.? Additionally, they Result panel 78 (unknown) (no (unknown) (unknown) (no value) (units (unk nown) date) unknown) (unknown) (no (unknown) (unknown) Date of Service: (units (unknown) date) 03/18/22 unknown) (unknown) (no (unknown) (unknown) (no value) (units (unk nown) date) unknown) (unknown) (no (unknown) (unknown) - (units (unkno wn) date) unknown) (unknown) (no (unknown) (unknown) 04/11/22 08:50 (units (unknown) date) unknown) (unknown) (no (unknown) (unknown) 04/13/22 1127 (units ( unknown) date) unknown) (unknown) (no (unknown) (unknown) [facility] (units (unknown) date) [address] unknown) [place] [address] (unknown) (no (unknown) (unknown) Progress Note (units ( unknown) date) unknown) (unknown) (no (unknown) (unknown) (no value) (units (unk nown) date) unknown) (unknown) (no (unknown) (unknown) 04/13/22 (units (unkno wn) date) unknown) (unknown) (no (unknown) (unknown) (12/05/17) (units (unk nown) date) unknown) (unknown) (no (unknown) (unknown) (past 8 hours): (units (unknown) date) unknown) (unknown) (no (unknown) (unknown) 07:57 04/13/22 (units (unknown) date) unknown) (unknown) (no (unknown) (unknown) 09:02 (units (unkno wn) date) unknown) (unknown) (no (unknown) (unknown) 1. Dementia (units (un known) date) unknown) (unknown) (no (unknown) (unknown) , consistent (units (unknown) date) with dementia.? She unknown) will need 24/7 supervision.? She does not (unknown) (no (unknown) (unknown) 2. 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 Chronic GERD (units (unknown) date) unknown) (unknown) (no (unknown) (unknown) 5. CHF (units (unkno wn) date) unknown) (unknown) (no (unknown) (unknown) 6. Acute severe (units (unknown) date) protein calorie unknown) malnutrition (unknown) (no (unknown) (unknown) 7. Generalized (units (unknown) date) pain and headache unknown) (unknown) (no (unknown) (unknown) 86-year-old female (units (unknown) date) with known coronary unknown) artery disease, permanent atrial (unknown) (no (unknown) (unknown) ? Remains rate (units (unknown) date) controlled.? Is on unknown) chronic apixaban. (unknown) (no (unknown) (unknown) ?Code status (units (u nknown) date) unknown) (unknown) (no (unknown) (unknown) ?Disposition (units (u nknown) date) unknown) (unknown) (no (unknown) (unknown) ?Prophylaxis (units (u nknown) date) unknown) (unknown) (no (unknown) (unknown) ?Remains (units (unkno wn) date) euvolemic. unknown) (unknown) (no (unknown) (unknown) ABD: Soft, mildly (units (unknown) date) diffuse tenderness, unknown) ND, BT present in all 4 quadrants, no (unknown) (no (unknown) (unknown) Abdominal pain (units (unknown) date) unknown) (unknown) (no (unknown) (unknown) Acute pancreatitis (units (unknown) date) unknown) (unknown) (no (unknown) (unknown) Age/Sex: 86 / F (units (unknown) date) unknown) (unknown) (no (unknown) (unknown) Anesthesia (units (unk nown) date) unknown) (unknown) (no (unknown) (unknown) Anticoagulated (units (unknown) date) unknown) (unknown) (no (unknown) (unknown) Anxiety (units (unkno wn) date) unknown) 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 unknown) (unknown) (no (unknown) (unknown) Blood Pressure (units (unknown) date) 147/73 H 147/73 H unknown) (unknown) (no (unknown) (unknown) Breast cancer (units ( unknown) date) () unknown) (unknown) (no (unknown) (unknown) 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) unknown) (unknown) (no (unknown) (unknown) CHEST: Respiratory (units (unknown) date) excursions unknown) symmetric, CTAB (unknown) (no (unknown) (unknown) CV:? 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 This is a frequent complaint for (unknown) (no (unknown) (unknown) Critical Care (units ( unknown) date) time: unknown) (unknown) (no (unknown) (unknown) : 1935 (units (unknown) date) Acct:[id number] unknown) (unknown) (no (unknown) (unknown) Date Patient Seen: (units (unknown) date) 04/13/22 unknown) (unknown) (no (unknown) (unknown) Deep Vein (units (unkn own) date) Thrombosis/Pulmonar unknown) y Embolism Present on Admission: No (unknown) (no (unknown) (unknown) Depression (units (unk nown) date) (emotion) unknown) (unknown) (no (unknown) (unknown) Developmental (units ( unknown) date) disorder unknown) (unknown) (no (unknown) (unknown) Diarrhea (units (unkno wn) date) unknown) (unknown) (no (unknown) (unknown) EXTR: warm, well (units (unknown) date) perfused, no C/C/E unknown) (unknown) (no (unknown) (unknown) Essential (units (unkn own) date) hypertension unknown) (09/28/12) (unknown) (no (unknown) (unknown) Exam (units (unkno wn) date) unknown) (unknown) (no (unknown) (unknown) Exam Narrative: (units (unknown) date) unknown) (unknown) (no (unknown) (unknown) Failure to thrive (units (unknown) date) in adult unknown) (unknown) (no (unknown) (unknown) Family History (units (unknown) date) (Reviewed 03/30/22 unknown) @ 07:25 by Stephane Gonzalez DO) (unknown) (no (unknown) (unknown) Father (units (unknown) date) Myocardial infarct unknown) (unknown) (no (unknown) (unknown) Fibrocystic breast (units (unknown) date) disease unknown) (unknown) (no (unknown) (unknown) Full (units (unkno wn) date) unknown) (unknown) (no (unknown) (unknown) GEN:? Alert and (units (unknown) date) cooperative elderly unknown) female, lying in the hospital room on bed, (unknown) (no (unknown) (unknown) GERD (units (unkno wn) date) (gastroesophageal unknown) reflux disease) (unknown) (no (unknown) (unknown) HEENT:NC, Face (units (unknown) date) symmetric unknown) (unknown) (no (unknown) (unknown) History of colon (units (unknown) date) polyps (09/28/12) unknown) (unknown) (no (unknown) (unknown) History of left (units (unknown) date) breast cancer unknown) (-2008) (unknown) (no (unknown) (unknown) Hyperlipidemia (units (unknown) date) 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 Nonfocal (units (unknown) date) unknown) (unknown) (no (unknown) (unknown) Narrative (units (unkn own) date) unknown) (unknown) (no (unknown) (unknown) Objective (units (unkn own) date) unknown) (unknown) (no (unknown) (unknown) On apixaban (units (un known) date) unknown) (unknown) (no (unknown) (unknown) Osteoarthritis of (units (unknown) date) knees, bilateral unknown) (unknown) (no (unknown) (unknown) Oxygen Delivery (units (unknown) date) Method Room Air unknown) (unknown) (no (unknown) (unknown) Oxygen Flow Rate (units (unknown) date) 0 unknown) (unknown) (no (unknown) (unknown) Oxygen Flow Rate 0 (units (unknown) date) unknown) (unknown) (no (unknown) (unknown) PFSH (units (unkno wn) date) unknown) (unknown) (no (unknown) (unknown) Patient has had a (units (unknown) date) 7.5% weight loss unknown) over the last 3 months.? Oral nutritional (unknown) (no (unknown) (unknown) Patient reports (units (unknown) date) she is having pain unknown) again today.? 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 Since that time, patient's (unknown) (no (unknown) (unknown) Pulse Oximetry 97 (units (unknown) date) unknown) (unknown) (no (unknown) (unknown) Pulse Rate 55 L 55 (units (unknown) date) L unknown) (unknown) (no (unknown) (unknown) Quality (units (unkno wn) date) unknown) (unknown) (no (unknown) (unknown) Respiratory Rate (units (unknown) date) 16 unknown) (unknown) (no (unknown) (unknown) Result Diagrams: (units (unknown) date) unknown) (unknown) (no (unknown) (unknown) Result issues: (units (unknown) date) unknown) (unknown) (no (unknown) (unknown) SKIN: warm and (units (unknown) date) dry, no rash unknown) (unknown) (no (unknown) (unknown) Signed (units (unkno wn) date) By:<Electronically unknown) signed by Linda David MD> (unknown) (no (unknown) (unknown) Sister (units (unknown) date) Traumatic unknown) amputation (unknown) (no (unknown) (unknown) Slums assessment (units (unknown) date) was performed unknown) earlier this hospitalization with a score of (unknown) (no (unknown) (unknown) Smoking Status: (units (unknown) date) Never smoker unknown) (unknown) (no (unknown) (unknown) Social History (units (unknown) date) (Reviewed 03/30/22 unknown) @ 07:25 by Stephane Gonzalez DO) (unknown) (no (unknown) (unknown) Speech and (units (unk nown) date) language unknown) 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 unknown) (unknown) (no (unknown) (unknown) Status post (units (un known) date) arthroscopy unknown) (unknown) (no (unknown) (unknown) Status post biopsy (units (unknown) date) (-2014) unknown) (unknown) (no (unknown) (unknown) Status post breast (units (unknown) date) lumpectomy (-2008) unknown) (unknown) (no (unknown) (unknown) Status post (units (un known) date) cholecystectomy unknown) (unknown) (no (unknown) (unknown) 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 (unknown) (no (unknown) (unknown) Status post (units (un known) date) hysterectomy unknown) (-2009) (unknown) (no (unknown) (unknown) Subjective (units (unk nown) date) unknown) (unknown) (no (unknown) (unknown) Surgical History (units (unknown) date) (Reviewed 03/30/22 unknown) @ 07:25 by Stephane Gonzalez DO) (unknown) (no (unknown) (unknown) 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, NYHA (unknown) (no (unknown) (unknown) Temperature 96.9 F (units (unknown) date) L unknown) (unknown) (no (unknown) (unknown) Time Spent With (units (unknown) date) Patient unknown) (unknown) (no (unknown) (unknown) VTE (units (unkno wn) date) unknown) (unknown) (no (unknown) (unknown) Vital Signs (units (un known) date) unknown) (unknown) (no (unknown) (unknown) [Embedded Image (units (unknown) date) Not Available] unknown) (unknown) (no (unknown) (unknown) ability to take (units (unknown) date) her home.? APS unknown) referral was made March 18 in light of ongoing (unknown) (no (unknown) (unknown) able to do an (units ( unknown) date) assessment today. unknown) DC team hopeful for ability to discharge soon. (unknown) (no (unknown) (unknown) admitted with (units ( unknown) date) chest pain.? unknown) Patient underwent stress testing and had a low risk (unknown) (no (unknown) (unknown) alcohol intake: (units (unknown) date) never unknown) (unknown) (no (unknown) (unknown) caregiving (units (unkn own) date) concerns.? 1 APS unknown) attempted to make contact with the patient's son, it (unknown) (no (unknown) (unknown) class 2 (06/05/11) (units (unknown) date) unknown) (unknown) (no (unknown) (unknown) continue to be her (units (unknown) date) DPOA.? Awaiting unknown) placement at this time. One facility may be (unknown) (no (unknown) (unknown) durable power of (units (unknown) date) research attorney and is unknown) agreeable with placement. (unknown) (no (unknown) (unknown) fibrillation on (units (unknown) date) apixaban, history unknown) of congestive heart failure ( unknown if (unknown) (no (unknown) (unknown) generalized today. (units (unknown) date) No new c/o. She unknown) expresses being frustrated w/remaining in (unknown) (no (unknown) (unknown) have capacity to (units (unknown) date) make her own unknown) healthcare decisions.? Her son is willing to (unknown) (no (unknown) (unknown) her. (units (unkno wn) date) unknown) (unknown) (no (unknown) (unknown) household members: (units (unknown) date) children unknown) (unknown) (no (unknown) (unknown) organomegaly or (units (unknown) date) masses unknown) (unknown) (no (unknown) (unknown) reported the (units (u nknown) date) patient has signed unknown) him out of the [facility] with a machete, looked at (unknown) (no (unknown) (unknown) scan.? She was (units (unknown) date) approved for unknown) discharge on March 18, but staff could not get her (unknown) (no (unknown) (unknown) son on the phone (units (unknown) date) who is her POA.? unknown) She remained in the hospital pending his (unknown) (no (unknown) (unknown) son was able to be (units (unknown) date) engaged in the unknown) process.? He is willing to continue to be her (unknown) (no (unknown) (unknown) supplementation as (units (unknown) date) tolerated.? unknown) Continue multivitamin (unknown) (no (unknown) (unknown) systolic or (units (un known) date) diastolic), unknown) hypertension, hyperlipidemia, and prior stroke who was (unknown) (no (unknown) (unknown) the hospital. (units ( unknown) date) unknown) (unknown) (no (unknown) (unknown) them, and returned (units (unknown) date) into the [facility].? unknown) Patient has since been evaluated by (unknown) (no (unknown) (unknown) today; this time (units (unknown) date) is exclusive of unknown) procedural time. (unknown) (no (unknown) (unknown) was discovered (units (unknown) date) that they had unknown) evidently been evicted.? Additionally, they Result panel 79 (unknown) (no (unknown) (unknown) (no value) (units (unk nown) date) unknown) (unknown) (no (unknown) (unknown) Date of Service: (units (unknown) date) 03/18/22 unknown) (unknown) (no (unknown) (unknown) (no value) (units (unk nown) date) unknown) (unknown) (no (unknown) (unknown) - (units (unkno wn) date) unknown) (unknown) (no (unknown) (unknown) 04/11/22 08:50 (units (unknown) date) unknown) (unknown) (no (unknown) (unknown) [facility] (units (unknown) date) [address] unknown) [place] [address] (unknown) (no (unknown) (unknown) Progress Note (units ( unknown) date) unknown) (unknown) (no (unknown) (unknown) (no value) (units (unk nown) date) unknown) (unknown) (no (unknown) (unknown) 04/14/22 (units (unkno wn) date) unknown) (unknown) (no (unknown) (unknown) (12/05/17) (units (unk nown) date) unknown) (unknown) (no (unknown) (unknown) (past 8 hours): (units (unknown) date) unknown) (unknown) (no (unknown) (unknown) 01:00 (units (unkno wn) date) unknown) (unknown) (no (unknown) (unknown) 1. Dementia (units (un known) date) unknown) (unknown) (no (unknown) (unknown) , consistent (units (unknown) date) with dementia.? She unknown) will need 18/04 supervision.? She does not (unknown) (no (unknown) (unknown) 2. 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 Chronic GERD (units (unknown) date) unknown) (unknown) (no (unknown) (unknown) 5. CHF (units (unkno wn) date) unknown) (unknown) (no (unknown) (unknown) 6. Acute severe (units (unknown) date) protein calorie unknown) malnutrition (unknown) (no (unknown) (unknown) 7. Generalized (units (unknown) date) pain and headache unknown) (unknown) (no (unknown) (unknown) ? Remains rate (units (unknown) date) controlled.? Is on unknown) chronic apixaban. (unknown) (no (unknown) (unknown) ?Code status (units (u nknown) date) unknown) (unknown) (no (unknown) (unknown) ?Disposition (units (u nknown) date) unknown) (unknown) (no (unknown) (unknown) ?Prophylaxis (units (u nknown) date) unknown) (unknown) (no (unknown) (unknown) ?Remains (units (unkno wn) date) euvolemic. unknown) (unknown) (no (unknown) (unknown) ABD: Soft, mildly (units (unknown) date) diffuse tenderness, unknown) ND, BT present in all 4 quadrants, no (unknown) (no (unknown) (unknown) Abdominal pain (units (unknown) date) unknown) (unknown) (no (unknown) (unknown) Acute pancreatitis (units (unknown) date) unknown) (unknown) (no (unknown) (unknown) Age/Sex: 86 / F (units (unknown) date) unknown) (unknown) (no (unknown) (unknown) Anesthesia (units (unk nown) date) unknown) (unknown) (no (unknown) (unknown) Anticoagulated (units (unknown) date) unknown) (unknown) (no (unknown) (unknown) Anxiety (units (unkno wn) date) unknown) 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 unknown) (unknown) (no (unknown) (unknown) Breast cancer (units ( unknown) date) (-2001) unknown) (unknown) (no (unknown) (unknown) 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) unknown) (unknown) (no (unknown) (unknown) CHEST: Respiratory (units (unknown) date) excursions unknown) symmetric, CTAB (unknown) (no (unknown) (unknown) CV:? 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 This is a frequent complaint for (unknown) (no (unknown) (unknown) Critical Care (units ( unknown) date) time: unknown) (unknown) (no (unknown) (unknown) : 1935 (units (unknown) date) Acct:[id number] unknown) (unknown) (no (unknown) (unknown) Deep Vein (units (unkn own) date) Thrombosis/Pulmonar unknown) y Embolism Present on Admission: No (unknown) (no (unknown) (unknown) Depression (units (unk nown) date) (emotion) unknown) (unknown) (no (unknown) (unknown) Developmental (units ( unknown) date) disorder unknown) (unknown) (no (unknown) (unknown) Diarrhea (units (unkno wn) date) unknown) (unknown) (no (unknown) (unknown) EXTR: warm, well (units (unknown) date) perfused, no C/C/E unknown) (unknown) (no (unknown) (unknown) Essential (units (unkn own) date) hypertension unknown) (09/28/12) (unknown) (no (unknown) (unknown) Exam (units (unkno wn) date) unknown) (unknown) (no (unknown) (unknown) Exam Narrative: (units (unknown) date) unknown) (unknown) (no (unknown) (unknown) Failure to thrive (units (unknown) date) in adult unknown) (unknown) (no (unknown) (unknown) Family History (units (unknown) date) (Reviewed 04/14/22 unknown) @ 05:14 by Stephane Gonzalez DO) (unknown) (no (unknown) (unknown) Father (units (unknown) date) Myocardial infarct unknown) (unknown) (no (unknown) (unknown) Fibrocystic breast (units (unknown) date) disease unknown) (unknown) (no (unknown) (unknown) Full (units (unkno wn) date) unknown) (unknown) (no (unknown) (unknown) GEN:? Alert and (units (unknown) date) cooperative elderly unknown) female, lying in the hospital room on bed, (unknown) (no (unknown) (unknown) GERD (units (unkno wn) date) (gastroesophageal unknown) reflux disease) (unknown) (no (unknown) (unknown) HEENT:NC, Face (units (unknown) date) symmetric unknown) (unknown) (no (unknown) (unknown) History of colon (units (unknown) date) polyps (09/28/12) unknown) (unknown) (no (unknown) (unknown) History of left (units (unknown) date) breast cancer unknown) () (unknown) (no (unknown) (unknown) Hyperlipidemia (units (unknown) date) 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 Nonfocal (units (unknown) date) unknown) (unknown) (no (unknown) (unknown) Narrative (units (unkn own) date) unknown) (unknown) (no (unknown) (unknown) Objective (units (unkn own) date) unknown) (unknown) (no (unknown) (unknown) On apixaban (units (un known) date) unknown) (unknown) (no (unknown) (unknown) Osteoarthritis of (units (unknown) date) knees, bilateral unknown) (unknown) (no (unknown) (unknown) Oxygen Delivery (units (unknown) date) Method Room Air unknown) (unknown) (no (unknown) (unknown) Oxygen Delivery (units (unknown) date) Method Room Air unknown) (unknown) (no (unknown) (unknown) Oxygen Flow Rate (units (unknown) date) 0 unknown) (unknown) (no (unknown) (unknown) PFSH (units (unkno wn) date) unknown) (unknown) (no (unknown) (unknown) Patient awaiting (units (unknown) date) placement. Progress unknown) note copied forward with A/P mostly (unknown) (no (unknown) (unknown) Patient has had a (units (unknown) date) 7.5% weight loss unknown) over the last 3 months.? 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 (unknown) (no (unknown) (unknown) Pulse Oximetry 93 (units (unknown) date) unknown) (unknown) (no (unknown) (unknown) Quality (units (unkno wn) date) unknown) (unknown) (no (unknown) (unknown) Result Diagrams: (units (unknown) date) unknown) (unknown) (no (unknown) (unknown) Result issues: (units (unknown) date) unknown) (unknown) (no (unknown) (unknown) SKIN: warm and (units (unknown) date) dry, no rash unknown) (unknown) (no (unknown) (unknown) Signed By: (units (unk nown) date) unknown) (unknown) (no (unknown) (unknown) Sister (units (unknown) date) Traumatic unknown) amputation (unknown) (no (unknown) (unknown) Slums assessment (units (unknown) date) was performed unknown) earlier this hospitalization with a score of (unknown) (no (unknown) (unknown) Smoking Status: (units (unknown) date) Never smoker unknown) (unknown) (no (unknown) (unknown) Social History (units (unknown) date) (Reviewed 04/14/22 unknown) @ 05:14 by Stephane Gonazlez DO) (unknown) (no (unknown) (unknown) Speech and (units (unk nown) date) language unknown) 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 unknown) (unknown) (no (unknown) (unknown) Status post (units (un known) date) arthroscopy unknown) (unknown) (no (unknown) (unknown) Status post biopsy (units (unknown) date) () unknown) (unknown) (no (unknown) (unknown) Status post breast (units (unknown) date) lumpectomy () unknown) (unknown) (no (unknown) (unknown) Status post (units (un known) date) cholecystectomy unknown) (unknown) (no (unknown) (unknown) 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 (unknown) (no (unknown) (unknown) Status post (units (un known) date) hysterectomy unknown) () (unknown) (no (unknown) (unknown) Surgical History (units (unknown) date) (Reviewed 04/14/22 unknown) @ 05:14 by Stephane Gonzalez DO) (unknown) (no (unknown) (unknown) 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 unknown) DC team hopeful for ability to discharge soon. (unknown) (no (unknown) (unknown) alcohol intake: (units (unknown) date) never unknown) (unknown) (no (unknown) (unknown) class 2 (06/05/11) (units (unknown) date) unknown) (unknown) (no (unknown) (unknown) continue to be her (units (unknown) date) DPOA.? Awaiting unknown) placement at this time. One facility may be (unknown) (no (unknown) (unknown) have capacity to (units (unknown) date) make her own unknown) healthcare decisions.? Her son is willing to (unknown) (no (unknown) (unknown) her. (units (unkno wn) date) unknown) (unknown) (no (unknown) (unknown) household members: (units (unknown) date) children unknown) (unknown) (no (unknown) (unknown) organomegaly or (units (unknown) date) masses unknown) (unknown) (no (unknown) (unknown) supplementation as (units (unknown) date) tolerated.? unknown) Continue multivitamin (unknown) (no (unknown) (unknown) today; this time (units (unknown) date) is exclusive of unknown) procedural time. (unknown) (no (unknown) (unknown) unchanged. (units (unk nown) date) unknown) Result panel 80 (unknown) (no (unknown) (unknown) (no value) (units (unk nown) date) unknown) (unknown) (no (unknown) (unknown) Date of Service: (units (unknown) date) 03/18/22 unknown) (unknown) (no (unknown) (unknown) (no value) (units (unk nown) date) unknown) (unknown) (no (unknown) (unknown) - (units (unkno wn) date) unknown) (unknown) (no (unknown) (unknown) 04/11/22 08:50 (units (unknown) date) unknown) (unknown) (no (unknown) (unknown) 04/14/22 1543 (units ( unknown) date) unknown) (unknown) (no (unknown) (unknown) [facility] (units (unknown) date) [address] unknown) [place] [address] (unknown) (no (unknown) (unknown) Progress Note (units ( unknown) date) unknown) (unknown) (no (unknown) (unknown) (no value) (units (unk nown) date) unknown) (unknown) (no (unknown) (unknown) 04/14/22 (units (unkno wn) date) unknown) (unknown) (no (unknown) (unknown) (12/05/17) (units (unk nown) date) unknown) (unknown) (no (unknown) (unknown) (past 8 hours): (units (unknown) date) unknown) (unknown) (no (unknown) (unknown) 01:00 (units (unkno wn) date) unknown) (unknown) (no (unknown) (unknown) 1. Dementia (units (un known) date) unknown) (unknown) (no (unknown) (unknown) , consistent (units (unknown) date) with dementia.? She unknown) will need 18/04 supervision.? She does not (unknown) (no (unknown) (unknown) 2. 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 Chronic GERD (units (unknown) date) unknown) (unknown) (no (unknown) (unknown) 5. CHF (units (unkno wn) date) unknown) (unknown) (no (unknown) (unknown) 6. Acute severe (units (unknown) date) protein calorie unknown) malnutrition (unknown) (no (unknown) (unknown) 7. Generalized (units (unknown) date) pain and headache unknown) (unknown) (no (unknown) (unknown) ? Remains rate (units (unknown) date) controlled.? Is on unknown) chronic apixaban. (unknown) (no (unknown) (unknown) ?Code status (units (u nknown) date) unknown) (unknown) (no (unknown) (unknown) ?Disposition (units (u nknown) date) unknown) (unknown) (no (unknown) (unknown) ?Prophylaxis (units (u nknown) date) unknown) (unknown) (no (unknown) (unknown) ?Remains (units (unkno wn) date) euvolemic. unknown) (unknown) (no (unknown) (unknown) ABD: Soft, mildly (units (unknown) date) diffuse tenderness, unknown) ND, BT present in all 4 quadrants, no (unknown) (no (unknown) (unknown) Abdominal pain (units (unknown) date) unknown) (unknown) (no (unknown) (unknown) Acute pancreatitis (units (unknown) date) unknown) (unknown) (no (unknown) (unknown) Age/Sex: 86 / F (units (unknown) date) unknown) (unknown) (no (unknown) (unknown) Anesthesia (units (unk nown) date) unknown) (unknown) (no (unknown) (unknown) Anticoagulated (units (unknown) date) unknown) (unknown) (no (unknown) (unknown) Anxiety (units (unkno wn) date) unknown) 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 () (unknown) (no (unknown) (unknown) 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 (09/28/12) (unknown) (no (unknown) (unknown) Assessment + Plan (units (unknown) date) unknown) (unknown) (no (unknown) (unknown) Assessment + Plan (units (unknown) date) narrative: unknown) (unknown) (no (unknown) (unknown) Asthma (units (unkno wn) date) unknown) (unknown) (no (unknown) (unknown) Breast cancer (units ( unknown) date) () unknown) (unknown) (no (unknown) (unknown) 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) unknown) (unknown) (no (unknown) (unknown) CHEST: Respiratory (units (unknown) date) excursions unknown) symmetric, CTAB (unknown) (no (unknown) (unknown) CV:? 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 This is a frequent complaint for (unknown) (no (unknown) (unknown) Critical Care (units ( unknown) date) time: unknown) (unknown) (no (unknown) (unknown) : 1935 (units (unknown) date) Acct:[id number] unknown) (unknown) (no (unknown) (unknown) Date Patient Seen: (units (unknown) date) 04/14/22 unknown) (unknown) (no (unknown) (unknown) Deep Vein (units (unkn own) date) Thrombosis/Pulmonar unknown) y Embolism Present on Admission: No (unknown) (no (unknown) (unknown) Depression (units (unk nown) date) (emotion) unknown) (unknown) (no (unknown) (unknown) Developmental (units ( unknown) date) disorder unknown) (unknown) (no (unknown) (unknown) Diarrhea (units (unkno wn) date) unknown) (unknown) (no (unknown) (unknown) Discharging to (units (unknown) date) adult family home unknown) on 04/15. (unknown) (no (unknown) (unknown) EXTR: warm, well (units (unknown) date) perfused, no C/C/E unknown) (unknown) (no (unknown) (unknown) Essential (units (unkn own) date) hypertension unknown) (09/28/12) (unknown) (no (unknown) (unknown) Exam (units (unkno wn) date) unknown) (unknown) (no (unknown) (unknown) Exam Narrative: (units (unknown) date) unknown) (unknown) (no (unknown) (unknown) Failure to thrive (units (unknown) date) in adult unknown) (unknown) (no (unknown) (unknown) Family History (units (unknown) date) (Reviewed 04/14/22 unknown) @ 15:42 by Stephane Gonzalez DO) (unknown) (no (unknown) (unknown) Father (units (unknown) date) Myocardial infarct unknown) (unknown) (no (unknown) (unknown) Fibrocystic breast (units (unknown) date) disease unknown) (unknown) (no (unknown) (unknown) Full (units (unkno wn) date) unknown) (unknown) (no (unknown) (unknown) GEN:? Alert and (units (unknown) date) cooperative elderly unknown) female, lying in the hospital room on bed, (unknown) (no (unknown) (unknown) GERD (units (unkno wn) date) (gastroesophageal unknown) reflux disease) (unknown) (no (unknown) (unknown) HEENT:NC, Face (units (unknown) date) symmetric unknown) (unknown) (no (unknown) (unknown) History of colon (units (unknown) date) polyps (09/28/12) unknown) (unknown) (no (unknown) (unknown) History of left (units (unknown) date) breast cancer unknown) () (unknown) (no (unknown) (unknown) Hyperlipidemia (units (unknown) date) 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 Nonfocal (units (unknown) date) unknown) (unknown) (no (unknown) (unknown) Narrative (units (unkn own) date) unknown) (unknown) (no (unknown) (unknown) Objective (units (unkn own) date) unknown) (unknown) (no (unknown) (unknown) On apixaban (units (un known) date) unknown) (unknown) (no (unknown) (unknown) Osteoarthritis of (units (unknown) date) knees, bilateral unknown) (unknown) (no (unknown) (unknown) Oxygen Delivery (units (unknown) date) Method Room Air unknown) (unknown) (no (unknown) (unknown) Oxygen Delivery (units (unknown) date) Method Room Air unknown) (unknown) (no (unknown) (unknown) Oxygen Flow Rate (units (unknown) date) 0 unknown) (unknown) (no (unknown) (unknown) PFSH (units (unkno wn) date) unknown) (unknown) (no (unknown) (unknown) Patient awaiting (units (unknown) date) placement. Progress unknown) note copied forward with A/P mostly (unknown) (no (unknown) (unknown) Patient has had a (units (unknown) date) 7.5% weight loss unknown) over the last 3 months.? Oral nutritional (unknown) (no (unknown) (unknown) Patient sleeping (units (unknown) date) in bed but awakes unknown) to voice and asking for her gabapentin. 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 unknown) () (unknown) (no (unknown) (unknown) Provider: (units (unkn own) date) Stephane Gonzalez unknownShruti LauraOYael (unknown) (no (unknown) (unknown) Pulse Oximetry 93 (units (unknown) date) unknown) (unknown) (no (unknown) (unknown) Quality (units (unkno wn) date) unknown) (unknown) (no (unknown) (unknown) Result Diagrams: (units (unknown) date) unknown) (unknown) (no (unknown) (unknown) Result issues: (units (unknown) date) unknown) (unknown) (no (unknown) (unknown) SKIN: warm and (units (unknown) date) dry, no rash unknown) (unknown) (no (unknown) (unknown) Signed (units (unkno wn) date) By:<Electronically unknown) signed by Stephane Gonzalez D.O.> (unknown) (no (unknown) (unknown) Sister (units (unknown) date) Traumatic unknown) amputation (unknown) (no (unknown) (unknown) Slums assessment (units (unknown) date) was performed unknown) earlier this hospitalization with a score of (unknown) (no (unknown) (unknown) Smoking Status: (units (unknown) date) Never smoker unknown) (unknown) (no (unknown) (unknown) Social History (units (unknown) date) (Reviewed 04/14/22 unknown) @ 15:42 by Stephane Gonzalez, DO) (unknown) (no (unknown) (unknown) Speech and (units (unk nown) date) language unknown) 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 unknown) (unknown) (no (unknown) (unknown) Status post (units (un known) date) arthroscopy unknown) (unknown) (no (unknown) (unknown) Status post biopsy (units (unknown) date) (-2014) unknown) (unknown) (no (unknown) (unknown) Status post breast (units (unknown) date) lumpectomy (-2008) unknown) (unknown) (no (unknown) (unknown) Status post (units (un known) date) cholecystectomy unknown) (unknown) (no (unknown) (unknown) 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 (unknown) (no (unknown) (unknown) Status post (units (un known) date) hysterectomy unknown) (-2009) (unknown) (no (unknown) (unknown) Subjective (units (unk nown) date) unknown) (unknown) (no (unknown) (unknown) Surgical History (units (unknown) date) (Reviewed 04/14/22 unknown) @ 15:42 by Stephane Gonzalez DO) (unknown) (no (unknown) (unknown) 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 unknown) DC team hopeful for ability to discharge soon. (unknown) (no (unknown) (unknown) alcohol intake: (units (unknown) date) never unknown) (unknown) (no (unknown) (unknown) class 2 (06/05/11) (units (unknown) date) unknown) (unknown) (no (unknown) (unknown) continue to be her (units (unknown) date) DPOA.? Awaiting unknown) placement at this time. One facility may be (unknown) (no (unknown) (unknown) have capacity to (units (unknown) date) make her own unknown) healthcare decisions.? Her son is willing to (unknown) (no (unknown) (unknown) her. (units (unkno wn) date) unknown) (unknown) (no (unknown) (unknown) household members: (units (unknown) date) children unknown) (unknown) (no (unknown) (unknown) organomegaly or (units (unknown) date) masses unknown) (unknown) (no (unknown) (unknown) supplementation as (units (unknown) date) tolerated.? unknown) Continue multivitamin (unknown) (no (unknown) (unknown) today; this time (units (unknown) date) is exclusive of unknown) procedural time. (unknown) (no (unknown) (unknown) unchanged. (units (unk nown) date) unknown) Result panel 81 (unknown) (no date) (unknown) (unknown) 0 /uL (unkn own) (unknown) (no date) (unknown) (unknown) 0.6 % (unkn own) (unknown) (no date) (unknown) (unknown) 16.0 % (unkn own) (unknown) (no date) (unknown) (unknown) 192 X10 3/uL (unkn own) (unknown) (no date) (unknown) (unknown) 2.9 % (unkn own) (unknown) (no date) (unknown) (unknown) 200 /uL (unkn own) (unknown) (no date) (unknown) (unknown) 2100 /uL (unkn own) (unknown) (no date) (unknown) (unknown) 28.2 % (unkn own) (unknown) (no date) (unknown) (unknown) 2800 /uL (unkn own) (unknown) (no date) (unknown) (unknown) 3.11 X10 6/uL (unkn own) (unknown) (no date) (unknown) (unknown) 30.6 PG (unkn own) (unknown) (no date) (unknown) (unknown) 33.7 % (unkn own) (unknown) (no date) (unknown) (unknown) 37.3 % (unkn own) (unknown) (no date) (unknown) (unknown) 49.3 % (unkn own) (unknown) (no date) (unknown) (unknown) 5.7 X10 3/uL (unkn own) (unknown) (no date) (unknown) (unknown) 600 /uL (unkn own) (unknown) (no date) (unknown) (unknown) 9.5 g/dL (unkn own) (unknown) (no date) (unknown) (unknown) 9.9 % (unkn own) (unknown) (no date) (unknown) (unknown) 90.8 fL (unkn own) Result panel 82 (unknown) (no date) (unknown) (unknown) > 60 mL/min (unkn own) (unknown) (no date) (unknown) (unknown) 0.85 mg/dL (unkn own) (unknown) (no date) (unknown) (unknown) 103 mmol/L (unkn own) (unknown) (no date) (unknown) (unknown) 134 mmol/L (unkn own) (unknown) (no date) (unknown) (unknown) 29 mmol/L (unkn own) (unknown) (no date) (unknown) (unknown) 37 mg/dL (unkn own) (unknown) (no date) (unknown) (unknown) 4.9 mmol/L (unkn own) (unknown) (no date) (unknown) (unknown) 43.5 (units unknown) (unknown) (unknown) (no date) (unknown) (unknown) 8.2 mg/dL (unkn own) (unknown) (no date) (unknown) (unknown) 82 mg/dL (unkn own) Result panel 83 (unknown) (no (unknown) (unknown) Qty: 1 0RF (units (unk nown) date) unknown) (unknown) (no (unknown) (unknown) (no value) (units (unk nown) date) unknown) (unknown) (no (unknown) (unknown) Date of Service: (units (unknown) date) 03/18/22 unknown) (unknown) (no (unknown) (unknown) (no value) (units (unk nown) date) unknown) (unknown) (no (unknown) (unknown) 04/15/22 05:00 (units (unknown) date) unknown) (unknown) (no (unknown) (unknown) 1 tab PO BID PRN (units (unknown) date) (Reason: pain) Qty: unknown) 30 0RF (unknown) (no (unknown) (unknown) 1 tab PO DAILY (units (unknown) date) Qty: 30 0RF unknown) (unknown) (no (unknown) (unknown) 1 tab under tongue (units (unknown) date) every five minutes unknown) up to three times, call 911 if no (unknown) (no (unknown) (unknown) 1,000 unit PO (units ( unknown) date) DAILY Qty: 30 0RF unknown) (unknown) (no (unknown) (unknown) 12.5 mg PO DAILY (units (unknown) date) Qty: 45 0RF unknown) (unknown) (no (unknown) (unknown) 2 g topical QID (units (unknown) date) Qty: 100 0RF unknown) (unknown) (no (unknown) (unknown) 25 mg PO DAILY (units (unknown) date) Qty: 30 0RF unknown) (unknown) (no (unknown) (unknown) 40 mg PO BEDTIME (units (unknown) date) Qty: 90 0RF unknown) (unknown) (no (unknown) (unknown) 40 mg PO DAILY (units (unknown) date) Qty: 90 0RF unknown) (unknown) (no (unknown) (unknown) 5 mg PO BID Qty: (units (unknown) date) 180 1RF unknown) (unknown) (no (unknown) (unknown) 50 mg PO DAILY (units (unknown) date) Qty: 90 1RF unknown) (unknown) (no (unknown) (unknown) 600 mg PO DAILY (units (unknown) date) Qty: 30 0RF unknown) (unknown) (no (unknown) (unknown) 650 mg PO Q6HR PRN (units (unknown) date) (Reason: Fever/Mild unknown) Pain (1-3)) Qty: 30 0RF (unknown) (no (unknown) (unknown) 7.5 mg PO BEDTIME (units (unknown) date) Qty: 30 0RF unknown) (unknown) (no (unknown) (unknown) As directed (units (un known) date) unknown) (unknown) (no (unknown) (unknown) Comment: (units (unkno wn) date) unknown) (unknown) (no (unknown) (unknown) Comment: Failure (units (unknown) date) Thrive, poss unknown) depression/anx, cognitive dec (unknown) (no (unknown) (unknown) Comment: Very sad (units (unknown) date) about no contact unknown) with son, now shelter (unknown) (no (unknown) (unknown) Comment: cognitive (units (unknown) date) assessment/SLUMS unknown) (unknown) (no (unknown) (unknown) Consulting (units (unk nown) date) Provider: unknown) Carlos Goddard (unknown) (no (unknown) (unknown) Discharge Summary (units (unknown) date) unknown) (unknown) (no (unknown) (unknown) Dose Instruction: (units (unknown) date) unknown) (unknown) (no (unknown) (unknown) Has provider been (units (unknown) date) notified: No unknown) (unknown) (no (unknown) (unknown) Has provider been (units (unknown) date) notified: Yes unknown) (unknown) (no (unknown) (unknown) Hold Instructions: (units (unknown) date) stopped at unknown) [facility] (unknown) (no (unknown) (unknown) [facility] (units (unknown) date) [address] unknown) [place] [address] (unknown) (no (unknown) (unknown) Laboratory Results (units (unknown) date) - last 24 hr unknown) (unknown) (no (unknown) (unknown) Patient unable to (units (unknown) date) walk 200 feet unknown) without stopping to rest. (unknown) (no (unknown) (unknown) Physician (units (unkn own) date) Instructions: unknown) Evaluate and Treat (unknown) (no (unknown) (unknown) Physician (units (unkn own) date) Instructions: unknown) Evaluate and treat (unknown) (no (unknown) (unknown) Reason For Exam: (units (unknown) date) poor nutrition unknown) (unknown) (no (unknown) (unknown) Reason for (units (unk nown) date) consultation: unknown) Failure Thrive, poss depression/anx, cognitive dec (unknown) (no (unknown) (unknown) Reason for (units (unk nown) date) consultation: unknown) Reactive depression and question of competency (unknown) (no (unknown) (unknown) Rx Instructions: (units (unknown) date) unknown) (unknown) (no (unknown) (unknown) See Rx (units (unkno wn) date) Instructions unknown) .ROUTE .COMPLEX Qty: 270 3RF (unknown) (no (unknown) (unknown) See Rx (units (unkno wn) date) Instructions unknown) .ROUTE .MEDSUPPLY Qty: 1 0RF (unknown) (no (unknown) (unknown) See Rx (units (unkno wn) date) Instructions unknown) Sublingual PRN PRN (Reason: Chest Pain) Qty: 30 0RF (unknown) (no (unknown) (unknown) TAKE ONE CAPSULE (units (unknown) date) BY MOUTH THREE unknown) TIMES DAILY (unknown) (no (unknown) (unknown) apply to single (units (unknown) date) elbow, wrist or unknown) hand; for hand includes palm/fingers/back of (unknown) (no (unknown) (unknown) (no value) (units (unk nown) date) unknown) (unknown) (no (unknown) (unknown) (DME) Aerochamber (units (unknown) date) MV Spacer unknown) (unknown) (no (unknown) (unknown) (DME) Handicap (units (unknown) date) Parking unknown) (unknown) (no (unknown) (unknown) 05:00 05:00 (units (un known) date) unknown) (unknown) (no (unknown) (unknown) 04/15/22 04/15/22 (units (unknown) date) unknown) (unknown) (no (unknown) (unknown) acetaminophen 325 (units (unknown) date) mg Tablet unknown) (unknown) (no (unknown) (unknown) apixaban 5 mg (units ( unknown) date) tablet unknown) (unknown) (no (unknown) (unknown) atorvastatin 40 mg (units (unknown) date) tablet unknown) (unknown) (no (unknown) (unknown) calcium carbonate (units (unknown) date) [Calcium 600] 600 unknown) mg calcium (1,500 mg) Tablet (unknown) (no (unknown) (unknown) cholecalciferol (units (unknown) date) (vitamin D3) 25 mcg unknown) (1,000 unit) Tablet (unknown) (no (unknown) (unknown) diclofenac sodium (units (unknown) date) 1 % gel unknown) (unknown) (no (unknown) (unknown) gabapentin 300 mg (units (unknown) date) capsule unknown) (unknown) (no (unknown) (unknown) hydrocodone-acetam (units (unknown) date) inophen 5-325 mg unknown) tablet (unknown) (no (unknown) (unknown) losartan 50 mg (units (unknown) date) Tablet unknown) (unknown) (no (unknown) (unknown) losartan 50 mg (units (unknown) date) tablet unknown) (unknown) (no (unknown) (unknown) metoprolol (units (unk nown) date) tartrate 25 mg unknown) tablet (unknown) (no (unknown) (unknown) mirtazapine 15 mg (units (unknown) date) Tablet unknown) (unknown) (no (unknown) (unknown) multivitamin with (units (unknown) date) folic acid unknown) [Tab-A-Yin] 400 mcg Tablet (unknown) (no (unknown) (unknown) nitroglycerin (units ( unknown) date) [Nitrostat] 0.4 mg unknown) tablet, sublingual (unknown) (no (unknown) (unknown) pantoprazole 40 mg (units (unknown) date) tablet,delayed unknown) release (DR/EC) (unknown) (no (unknown) (unknown) (12/05/17) (units (unk nown) date) unknown) (unknown) (no (unknown) (unknown) (past 8 hours): (units (unknown) date) unknown) (unknown) (no (unknown) (unknown) 03/17/22 21:08 (units (unknown) date) unknown) (unknown) (no (unknown) (unknown) 03/18/22 02:55 (units (unknown) date) unknown) (unknown) (no (unknown) (unknown) 03/18/22 19:32 (units (unknown) date) unknown) (unknown) (no (unknown) (unknown) 03/19/22 16:30 (units (unknown) date) unknown) (unknown) (no (unknown) (unknown) 03/20/22 11:44 (units (unknown) date) unknown) (unknown) (no (unknown) (unknown) 03/24/22 10:10 (units (unknown) date) unknown) (unknown) (no (unknown) (unknown) 03/24/22 10:40 (units (unknown) date) unknown) (unknown) (no (unknown) (unknown) 03/27/22 09:27 (units (unknown) date) unknown) (unknown) (no (unknown) (unknown) 1. Dementia (units (un known) date) unknown) (unknown) (no (unknown) (unknown) , consistent (units (unknown) date) with dementia.? She unknown) will need 18/04 supervision.? She does not (unknown) (no (unknown) (unknown) 170s, heart rate (units (unknown) date) 82, respiratory unknown) rate 20, oxygen saturation 96% on room air, she (unknown) (no (unknown) (unknown) 2. 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 Chronic GERD (units (unknown) date) unknown) (unknown) (no (unknown) (unknown) 5. CHF (units (unkno wn) date) unknown) (unknown) (no (unknown) (unknown) 6. Acute severe (units (unknown) date) protein calorie unknown) malnutrition (unknown) (no (unknown) (unknown) 7. Generalized (units (unknown) date) pain and headache unknown) (unknown) (no (unknown) (unknown) 86-year-old female (units (unknown) date) with a history of unknown) atrial fibrillation anticoagulated on (unknown) (no (unknown) (unknown) 86-year-old female (units (unknown) date) with known coronary unknown) artery disease, permanent atrial (unknown) (no (unknown) (unknown) ? Remains rate (units (unknown) date) controlled.? Is on unknown) chronic apixaban. (unknown) (no (unknown) (unknown) ?Remains (units (unkno wn) date) euvolemic. unknown) (unknown) (no (unknown) (unknown) ABD: Soft, mildly (units (unknown) date) diffuse tenderness, unknown) ND, BT present in all 4 quadrants, no (unknown) (no (unknown) (unknown) Abdominal pain (units (unknown) date) unknown) (unknown) (no (unknown) (unknown) Activity: As (units (u nknown) date) tolerated w/assist unknown) (unknown) (no (unknown) (unknown) Acute pancreatitis (units (unknown) date) unknown) (unknown) (no (unknown) (unknown) Age/Sex: 86 / F (units (unknown) date) unknown) (unknown) (no (unknown) (unknown) Anesthesia (units (unk nown) date) unknown) (unknown) (no (unknown) (unknown) Anticoagulated (units (unknown) date) unknown) (unknown) (no (unknown) (unknown) Anxiety (units (unkno wn) date) unknown) 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) (unknown) (no (unknown) (unknown) 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 (09/28/12) (unknown) (no (unknown) (unknown) Asthma (units (unkno wn) date) unknown) (unknown) (no (unknown) (unknown) Attending (units (unkn own) date) Provider: unknown) Eliana Barry (unknown) (no (unknown) (unknown) BUN 37 H (units (unk nown) date) unknown) (unknown) (no (unknown) (unknown) BUN/Creatinine (units (unknown) date) Ratio 43.5 H unknown) (unknown) (no (unknown) (unknown) Baso # (Auto) 0 (units (unknown) date) unknown) (unknown) (no (unknown) (unknown) Baso % (Auto) 0.6 (units (unknown) date) unknown) (unknown) (no (unknown) (unknown) Breast cancer (units ( unknown) date) (-2001) unknown) (unknown) (no (unknown) (unknown) 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) unknown) (unknown) (no (unknown) (unknown) CHEST: Respiratory (units (unknown) date) excursions unknown) symmetric, CTAB (unknown) (no (unknown) (unknown) CV:? 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 She is afebrile, blood (unknown) (no (unknown) (unknown) Chief complaint: (units (unknown) date) Chest Pain unknown) (unknown) (no (unknown) (unknown) Chloride 103 (units (unknown) date) unknown) (unknown) (no (unknown) (unknown) Cholelithiasis (units (unknown) date) unknown) (unknown) (no (unknown) (unknown) Chronic back pain (units (unknown) date) unknown) (unknown) (no (unknown) (unknown) Consult to (units (unk nown) date) Dietitian, Adult unknown) Routine (unknown) (no (unknown) (unknown) Consult to WEIGHT SHIFTER - (units (unknown) 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) Routine (unknown) (no (unknown) (unknown) Consult to WEIGHT SHIFTER - (units (unknown) 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) Stat (unknown) (no (unknown) (unknown) Consult to (units (unk n) date) Occupational unknown) Therapy Evaluate + Treat (unknown) (no (unknown) (unknown) Consult to (units (unk nown) date) Pastoral Services unknown) Routine (unknown) (no (unknown) (unknown) Consult to (units (unk n) date) Physical Therapy unknown) Evaluate + Treat (unknown) (no (unknown) (unknown) Consult to (units (unk nown) date) Physician Routine unknown) (unknown) (no (unknown) (unknown) Consults: (units (unkn own) date) unknown) (unknown) (no (unknown) (unknown) Continue (units (unkno wn) date) hydrocodone and unknown) Tylenol as needed.? This is a frequent complaint for (unknown) (no (unknown) (unknown) Continued (units (unkn own) date) unknown) (unknown) (no (unknown) (unknown) Creatinine 0.85 (units (unknown) date) unknown) (unknown) (no (unknown) (unknown) : 1935 (units (unknown) date) Acct:[id number] unknown) (unknown) (no (unknown) (unknown) Date of admission: (units (unknown) date) unknown) (unknown) (no (unknown) (unknown) Deep Vein (units (unkn own) date) Thrombosis/Pulmonar unknown) y Embolism Present on Admission: No (unknown) (no (unknown) (unknown) Depression (units (unk nown) date) (emotion) unknown) (unknown) (no (unknown) (unknown) Developmental (units ( unknown) date) disorder unknown) (unknown) (no (unknown) (unknown) Diarrhea (units (unkno wn) date) unknown) (unknown) (no (unknown) (unknown) Diet comment: Easy (units (unknown) date) chew; vanilla unknown) ensure BID, pepsi okay (unknown) (no (unknown) (unknown) Diet/Activity/[place] (units (unknown) date) tments unknown) (unknown) (no (unknown) (unknown) Diet: Regular (units ( unknown) date) unknown) (unknown) (no (unknown) (unknown) Discharge Data (units (unknown) date) unknown) (unknown) (no (unknown) (unknown) Discharge Date: (units (unknown) date) 04/15/22 unknown) (unknown) (no (unknown) (unknown) Discharge (units (unkn own) date) Diagnosis: unknown) (unknown) (no (unknown) (unknown) Discharge Plan (units (unknown) date) unknown) (unknown) (no (unknown) (unknown) Discharge (units (unkn own) date) Providers unknown) (unknown) (no (unknown) (unknown) Discharge orders + (units (unknown) date) Medications unknown) (unknown) (no (unknown) (unknown) Discharge (units (unkn own) date) provider: unknown) (unknown) (no (unknown) (unknown) Discontinued (units (u nknown) date) unknown) (unknown) (no (unknown) (unknown) EXTR: warm, well (units (unknown) date) perfused, no C/C/E unknown) (unknown) (no (unknown) (unknown) Eos # (Auto) 200 (units (unknown) date) unknown) (unknown) (no (unknown) (unknown) Eos % (Auto) 2.9 (units (unknown) date) unknown) (unknown) (no (unknown) (unknown) Essential (units (unkn own) date) hypertension unknown) (09/28/12) (unknown) (no (unknown) (unknown) Estimated GFR > (units (unknown) date) 60 unknown) (unknown) (no (unknown) (unknown) Exam (units (unkno wn) date) unknown) (unknown) (no (unknown) (unknown) Exam Narrative: (units (unknown) date) unknown) (unknown) (no (unknown) (unknown) Failure to thrive (units (unknown) date) in adult unknown) (unknown) (no (unknown) (unknown) Family History (units (unknown) date) (Reviewed 04/14/22 unknown) @ 15:42 by Stephane Gonzalez DO) (unknown) (no (unknown) (unknown) Father (units (unknown) date) Myocardial infarct unknown) (unknown) (no (unknown) (unknown) Fibrocystic breast (units (unknown) date) disease unknown) (unknown) (no (unknown) (unknown) Food texture: Soft (units (unknown) date) unknown) (unknown) (no (unknown) (unknown) GEN:? Alert and (units (unknown) date) cooperative elderly unknown) female, lying in the hospital room on bed, (unknown) (no (unknown) (unknown) GERD (units (unkno wn) date) (gastroesophageal unknown) reflux disease) (unknown) (no (unknown) (unknown) Glucose 82 (units (u nknown) date) unknown) (unknown) (no (unknown) (unknown) HEENT:NC, Face (units (unknown) date) symmetric unknown) (unknown) (no (unknown) (unknown) Hct 28.2 L (units (un known) date) unknown) (unknown) (no (unknown) (unknown) Hgb 9.5 L (units (unk nown) date) unknown) (unknown) (no (unknown) (unknown) History of Present (units (unknown) date) Illness unknown) (unknown) (no (unknown) (unknown) History of colon (units (unknown) date) polyps (09/28/12) unknown) (unknown) (no (unknown) (unknown) History of left (units (unknown) date) breast cancer unknown) (-2008) (unknown) (no (unknown) (unknown) Hospital Course (units (unknown) date) unknown) (unknown) (no (unknown) (unknown) Hospital Course: (units (unknown) date) unknown) (unknown) (no (unknown) (unknown) Hyperlipidemia (units (unknown) date) unknown) 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 (unknown) (no (unknown) (unknown) Lymph # (Auto) (units (unknown) date) 2100 unknown) (unknown) (no (unknown) (unknown) Lymph % (Auto) (units (unknown) date) 37.3 unknown) (unknown) (no (unknown) (unknown) [id number] (units (unk nown) date) unknown) (unknown) (no (unknown) (unknown) MCH 30.6 (units (unkn own) date) unknown) (unknown) (no (unknown) (unknown) MCHC 33.7 (units (unk nown) date) unknown) (unknown) (no (unknown) (unknown) MCV 90.8 (units (unkn own) date) unknown) (unknown) (no (unknown) (unknown) Stephane Gonzalez, (units (unknown) date) DO unknown) (unknown) (no (unknown) (unknown) [place] (units (unkno wn) date) unknown) (unknown) (no (unknown) (unknown) Medical History (units (unknown) date) (Reviewed 04/14/22 unknown) @ 15:42 by Stephane Gonzalez, DO) 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 Nonfocal (units (unknown) date) unknown) (unknown) (no (unknown) (unknown) Narrative (units (unkn own) date) unknown) (unknown) (no (unknown) (unknown) Narrative: (units (unk nown) date) unknown) (unknown) (no (unknown) (unknown) Neut # (Auto) (units ( unknown) date) 2800 unknown) (unknown) (no (unknown) (unknown) Neut % (Auto) (units ( unknown) date) 49.3 L unknown) (unknown) (no (unknown) (unknown) New (units (unkno wn) date) unknown) (unknown) (no (unknown) (unknown) Objective (units (unkn own) date) unknown) (unknown) (no (unknown) (unknown) Osteoarthritis of (units (unknown) date) knees, bilateral unknown) (unknown) (no (unknown) (unknown) Other facility: (units (unknown) date) Adult family care unknown) home (unknown) (no (unknown) (unknown) Oxygen Delivery (units (unknown) date) Method Room Air unknown) (unknown) (no (unknown) (unknown) Oxygen Flow Rate (units (unknown) date) 0 unknown) (unknown) (no (unknown) (unknown) Oxygen: N/A (units (un known) date) unknown) (unknown) (no (unknown) (unknown) PFSH (units (unkno wn) date) unknown) (unknown) (no (unknown) (unknown) Patient (units (unkno wn) date) Disposition: unknown) Released, Other (unknown) (no (unknown) (unknown) Patient has had a (units (unknown) date) 7.5% weight loss unknown) over the last 3 months.? 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 (unknown) (no (unknown) (unknown) Psychiatry with (units (unknown) date) recommendations for unknown) guardianship.? Since that time, patient's (unknown) (no (unknown) (unknown) Quality (units (unkno wn) date) unknown) (unknown) (no (unknown) (unknown) RBC 3.11 L (units (un known) date) unknown) (unknown) (no (unknown) (unknown) RDW 16.0 H (units (un known) date) unknown) (unknown) (no (unknown) (unknown) Resolved issues: (units (unknown) date) unknown) (unknown) (no (unknown) (unknown) Result Diagrams: (units (unknown) date) unknown) (unknown) (no (unknown) (unknown) SKIN: warm and (units (unknown) date) dry, no rash unknown) (unknown) (no (unknown) (unknown) She recently had a (units (unknown) date) 2 day admission for unknown) adult failure to thrive.? She has a (unknown) (no (unknown) (unknown) She was discharged (units (unknown) date) on metoprolol and unknown) losartan. She states she and her son moved (unknown) (no (unknown) (unknown) Signed By: (units (unk nown) date) unknown) (unknown) (no (unknown) (unknown) Sister (units (unknown) date) Traumatic unknown) amputation (unknown) (no (unknown) (unknown) Slums assessment (units (unknown) date) was performed unknown) earlier this hospitalization with a score of (unknown) (no (unknown) (unknown) Smoking Status: (units (unknown) date) Never smoker unknown) (unknown) (no (unknown) (unknown) Social History (units (unknown) date) (Reviewed 04/14/22 unknown) @ 15:42 by Stephane Gonzalez DO) (unknown) (no (unknown) (unknown) Sodium 134 L (units (unknown) date) unknown) (unknown) (no (unknown) (unknown) Speech and (units (unk nown) date) language unknown) 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 unknown) (unknown) (no (unknown) (unknown) Status post (units (un known) date) arthroscopy unknown) (unknown) (no (unknown) (unknown) Status post biopsy (units (unknown) date) (-2014) unknown) (unknown) (no (unknown) (unknown) Status post breast (units (unknown) date) lumpectomy (-2008) unknown) (unknown) (no (unknown) (unknown) Status post (units (un known) date) cholecystectomy unknown) (unknown) (no (unknown) (unknown) 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 (unknown) (no (unknown) (unknown) Status post (units (un known) date) hysterectomy unknown) (-2009) (unknown) (no (unknown) (unknown) Summary (units (unkno wn) date) unknown) (unknown) (no (unknown) (unknown) Surgical History (units (unknown) date) (Reviewed 04/14/22 unknown) @ 15:42 by Stephane Gonzalez DO) (unknown) (no (unknown) (unknown) 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, NYHA (unknown) (no (unknown) (unknown) Transportation: (units (unknown) date) Wheelchair unknown) (unknown) (no (unknown) (unknown) VTE (units (unkno wn) date) unknown) (unknown) (no (unknown) (unknown) Visit (units (unkno wn) date) Report/Discharge unknown) Packet (unknown) (no (unknown) (unknown) Vital Signs (units (un known) date) unknown) (unknown) (no (unknown) (unknown) WBC 5.7 (units (unkno wn) date) unknown) (unknown) (no (unknown) (unknown) [Embedded Image (units (unknown) date) Not Available] unknown) (unknown) (no (unknown) (unknown) ability to take (units (unknown) date) her home.? APS unknown) referral was made March 18 in light of ongoing (unknown) (no (unknown) (unknown) able to do an (units ( unknown) date) assessment today.? unknown) DC team hopeful for ability to discharge soon. (unknown) (no (unknown) (unknown) admitted with (units ( unknown) date) chest pain.? unknown) Patient underwent stress testing and had a low risk (unknown) (no (unknown) (unknown) alcohol intake: (units (unknown) date) never unknown) (unknown) (no (unknown) (unknown) ambulance, but (units (unknown) date) does not remember unknown) who. Denies shortness of breath, does endorse (unknown) (no (unknown) (unknown) apixaban, history (units (unknown) date) of heart failure, unknown) hypertension, hyperlipidemia, prior history (unknown) (no (unknown) (unknown) caregiving (units (unkn own) date) concerns.? 1 APS unknown) attempted to make contact with the patient's son, it (unknown) (no (unknown) (unknown) class 2 (06/05/11) (units (unknown) date) unknown) (unknown) (no (unknown) (unknown) continue to be her (units (unknown) date) DPOA.? Awaiting unknown) placement at this time.? One facility may be (unknown) (no (unknown) (unknown) denies having (units ( unknown) date) diarrhea. Positive unknown) for urinary burning and constipation, has not (unknown) (no (unknown) (unknown) durable power of (units (unknown) date) research attorney and is unknown) agreeable with placement. (unknown) (no (unknown) (unknown) enzymes are within (units (unknown) date) normal limits, unknown) troponins x2 are not negative, UA is negative (unknown) (no (unknown) (unknown) fibrillation on (units (unknown) date) apixaban, history unknown) of congestive heart failure ( unknown if (unknown) (no (unknown) (unknown) for UTI and (units (un known) date) COVID-19 PCR is unknown) negative. (unknown) (no (unknown) (unknown) had a bm in Patient (units (unknown) date) previously here in unknown) late January for adult failure to thrive, per (unknown) (no (unknown) (unknown) hand (units (unkno wn) date) unknown) (unknown) (no (unknown) (unknown) have capacity to (units (unknown) date) make her own unknown) healthcare decisions.? Her son is willing to (unknown) (no (unknown) (unknown) having pain on the (units (unknown) date) left side of her unknown) neck, right arm. Denies nausea or vomiting, (unknown) (no (unknown) (unknown) her. (units (unkno wn) date) unknown) (unknown) (no (unknown) (unknown) history of atrial (units (unknown) date) fibrillation and an unknown) echocardiogram was done on February 17 and (unknown) (no (unknown) (unknown) household members: (units (unknown) date) children unknown) (unknown) (no (unknown) (unknown) into the house (units (unknown) date) they previously unknown) lived in and had to give up her trailer. (unknown) (no (unknown) (unknown) nitroglycerin at (units (unknown) date) home and the pain unknown) resolved.? States 'someone' called the (unknown) (no (unknown) (unknown) of CVA, presents (units (unknown) date) to the emergency unknown) department with chest pain.? She took (unknown) (no (unknown) (unknown) organomegaly or (units (unknown) date) masses unknown) (unknown) (no (unknown) (unknown) patient she is (units (unknown) date) living in a better unknown) situation. (unknown) (no (unknown) (unknown) pressure is 202/98 (units (unknown) date) however in the ED unknown) her systolic blood pressure was actually (unknown) (no (unknown) (unknown) relief. (units (unkno wn) date) unknown) (unknown) (no (unknown) (unknown) reported the (units (u nknown) date) patient has signed unknown) him out of the [facility] with a machete, looked at (unknown) (no (unknown) (unknown) scan.? She was (units (unknown) date) approved for unknown) discharge on March 18, but staff could not get her (unknown) (no (unknown) (unknown) she was found to (units (unknown) date) have an EF of unknown) 35-40% 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? (unknown) (no (unknown) (unknown) son on the phone (units (unknown) date) who is her POA.? unknown) She remained in the hospital pending his (unknown) (no (unknown) (unknown) son was able to be (units (unknown) date) engaged in the unknown) process.? He is willing to continue to be her (unknown) (no (unknown) (unknown) supplementation as (units (unknown) date) tolerated.? unknown) Continue multivitamin (unknown) (no (unknown) (unknown) systolic or (units (un known) date) diastolic), unknown) hypertension, hyperlipidemia, and prior stroke who was (unknown) (no (unknown) (unknown) them, and returned (units (unknown) date) into the [facility].? unknown) Patient has since been evaluated by (unknown) (no (unknown) (unknown) was discovered (units (unknown) date) that they had unknown) evidently been evicted.? Additionally, they (unknown) (no (unknown) (unknown) weighs 62.2 kg (units (unknown) date) with a BMI of unknown) 20.2.? CBC and chemistries are unremarkable, liver Result panel 84 (unknown) (no (unknown) (unknown) Qty: 1 0RF (units (unk nown) date) unknown) (unknown) (no (unknown) (unknown) (no value) (units (unk nown) date) unknown) (unknown) (no (unknown) (unknown) Date of Service: (units (unknown) date) 03/18/22 unknown) (unknown) (no (unknown) (unknown) (no value) (units (unk nown) date) unknown) (unknown) (no (unknown) (unknown) 04/15/22 05:00 (units (unknown) date) unknown) (unknown) (no (unknown) (unknown) 04/15/22 0836 (units ( unknown) date) unknown) (unknown) (no (unknown) (unknown) 1 tab PO BID PRN (units (unknown) date) (Reason: pain) Qty: unknown) 30 0RF (unknown) (no (unknown) (unknown) 1 tab PO DAILY (units (unknown) date) Qty: 30 0RF unknown) (unknown) (no (unknown) (unknown) 1 tab under tongue (units (unknown) date) every five minutes unknown) up to three times, call 911 if no (unknown) (no (unknown) (unknown) 12.5 mg PO BID (units (unknown) date) Qty: 30 0RF unknown) (unknown) (no (unknown) (unknown) 12.5 mg PO DAILY (units (unknown) date) Qty: 45 0RF unknown) (unknown) (no (unknown) (unknown) 2 g topical QID (units (unknown) date) Qty: 100 0RF unknown) (unknown) (no (unknown) (unknown) 25 mg PO DAILY (units (unknown) date) Qty: 30 0RF unknown) (unknown) (no (unknown) (unknown) 40 mg PO BEDTIME (units (unknown) date) Qty: 90 0RF unknown) (unknown) (no (unknown) (unknown) 40 mg PO DAILY (units (unknown) date) Qty: 90 0RF unknown) (unknown) (no (unknown) (unknown) 5 mg PO BID Qty: (units (unknown) date) 180 1RF unknown) (unknown) (no (unknown) (unknown) 50 mg PO DAILY (units (unknown) date) Qty: 90 1RF unknown) (unknown) (no (unknown) (unknown) 7.5 mg PO BEDTIME (units (unknown) date) Qty: 30 0RF unknown) (unknown) (no (unknown) (unknown) As directed (units (un known) date) unknown) (unknown) (no (unknown) (unknown) Comment: (units (unkno wn) date) unknown) (unknown) (no (unknown) (unknown) Comment: Failure (units (unknown) date) Thrive, poss unknown) depression/anx, cognitive dec (unknown) (no (unknown) (unknown) Comment: Very sad (units (unknown) date) about no contact unknown) with son, 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 (unknown) (no (unknown) (unknown) Comment: cognitive (units (unknown) date) assessment/SLUMS unknown) (unknown) (no (unknown) (unknown) Consulting (units (unk nown) date) Provider: unknown) Carlos Goddard (unknown) (no (unknown) (unknown) Discharge Summary (units (unknown) date) unknown) (unknown) (no (unknown) (unknown) Dose Instruction: (units (unknown) date) unknown) (unknown) (no (unknown) (unknown) Has provider been (units (unknown) date) notified: No unknown) (unknown) (no (unknown) (unknown) Has provider been (units (unknown) date) notified: Yes unknown) (unknown) (no (unknown) (unknown) Hold Instructions: (units (unknown) date) stopped at unknown) [facility] (unknown) (no (unknown) (unknown) [facility] (units (unknown) date) [address] [place] [address] Street unknown) [place] [address] (unknown) (no (unknown) (unknown) Laboratory Results (units (unknown) date) - last 24 hr unknown) (unknown) (no (unknown) (unknown) Ordered By: (units (un known) date) Stephane Gonzalez unknown) (unknown) (no (unknown) (unknown) Patient unable to (units (unknown) date) walk 200 feet unknown) without stopping to rest. (unknown) (no (unknown) (unknown) Physician (units (unkn own) date) Instructions: unknown) Evaluate and Treat (unknown) (no (unknown) (unknown) Physician (units (unkn own) date) Instructions: unknown) Evaluate and treat (unknown) (no (unknown) (unknown) Reason For Exam: (units (unknown) date) poor nutrition unknown) (unknown) (no (unknown) (unknown) Reason for (units (unk nown) date) consultation: unknown) Failure Thrive, poss depression/anx, cognitive dec (unknown) (no (unknown) (unknown) Reason for (units (unk nown) date) consultation: unknown) Reactive depression and question of competency (unknown) (no (unknown) (unknown) Rx Instructions: (units (unknown) date) unknown) (unknown) (no (unknown) (unknown) See Rx (units (unkno wn) date) Instructions unknown) .ROUTE .COMPLEX Qty: 270 3RF (unknown) (no (unknown) (unknown) See Rx (units (unkno wn) date) Instructions unknown) .ROUTE .MEDSUPPLY Qty: 1 0RF (unknown) (no (unknown) (unknown) See Rx (units (unkno wn) date) Instructions unknown) Sublingual PRN PRN (Reason: Chest Pain) Qty: 30 0RF (unknown) (no (unknown) (unknown) TAKE ONE CAPSULE (units (unknown) date) BY MOUTH THREE unknown) TIMES DAILY (unknown) (no (unknown) (unknown) apply to right (units (unknown) date) elbow, right wrist unknown) or right hand; for hand includes (unknown) (no (unknown) (unknown) (no value) (units (unk nown) date) unknown) (unknown) (no (unknown) (unknown) (DME) Aerochamber (units (unknown) date) MV Spacer unknown) (unknown) (no (unknown) (unknown) (DME) Handicap (units (unknown) date) Parking unknown) (unknown) (no (unknown) (unknown) 05:00 05:00 (units (un known) date) unknown) (unknown) (no (unknown) (unknown) 04/15/22 04/15/22 (units (unknown) date) unknown) (unknown) (no (unknown) (unknown) apixaban 5 mg (units ( unknown) date) tablet unknown) (unknown) (no (unknown) (unknown) atorvastatin 40 mg (units (unknown) date) tablet unknown) (unknown) (no (unknown) (unknown) diclofenac sodium (units (unknown) date) 1 % gel unknown) (unknown) (no (unknown) (unknown) gabapentin 300 mg (units (unknown) date) capsule unknown) (unknown) (no (unknown) (unknown) hydrocodone-acetam (units (unknown) date) inophen 5-325 mg unknown) tablet (unknown) (no (unknown) (unknown) losartan 50 mg (units (unknown) date) Tablet unknown) (unknown) (no (unknown) (unknown) losartan 50 mg (units (unknown) date) tablet unknown) (unknown) (no (unknown) (unknown) metoprolol (units (unk nown) date) tartrate 25 mg unknown) Tablet (unknown) (no (unknown) (unknown) metoprolol (units (unk nown) date) tartrate 25 mg unknown) tablet (unknown) (no (unknown) (unknown) mirtazapine 15 mg (units (unknown) date) Tablet unknown) (unknown) (no (unknown) (unknown) multivitamin with (units (unknown) date) folic acid unknown) [Tab-A-Yin] 400 mcg Tablet (unknown) (no (unknown) (unknown) nitroglycerin (units ( unknown) date) [Nitrostat] 0.4 mg unknown) tablet, sublingual (unknown) (no (unknown) (unknown) pantoprazole 40 mg (units (unknown) date) tablet,delayed unknown) release (DR/EC) (unknown) (no (unknown) (unknown) (12/05/17) (units (unk nown) date) unknown) (unknown) (no (unknown) (unknown) (past 8 hours): (units (unknown) date) unknown) (unknown) (no (unknown) (unknown) 03/17/22 21:08 (units (unknown) date) unknown) (unknown) (no (unknown) (unknown) 03/18/22 02:55 (units (unknown) date) unknown) (unknown) (no (unknown) (unknown) 03/18/22 19:32 (units (unknown) date) unknown) (unknown) (no (unknown) (unknown) 03/19/22 16:30 (units (unknown) date) unknown) (unknown) (no (unknown) (unknown) 03/20/22 11:44 (units (unknown) date) unknown) (unknown) (no (unknown) (unknown) 03/24/22 10:10 (units (unknown) date) unknown) (unknown) (no (unknown) (unknown) 03/24/22 10:40 (units (unknown) date) unknown) (unknown) (no (unknown) (unknown) 03/27/22 09:27 (units (unknown) date) unknown) (unknown) (no (unknown) (unknown) 1. Dementia with (units (unknown) date) SLUMS of unknown) (unknown) (no (unknown) (unknown) 170s, heart rate (units (unknown) date) 82, respiratory unknown) rate 20, oxygen saturation 96% on room air, she (unknown) (no (unknown) (unknown) 2. 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 Chronic GERD (units (unknown) date) unknown) (unknown) (no (unknown) (unknown) 5. CHF (units (unkno wn) date) unknown) (unknown) (no (unknown) (unknown) 6. Acute severe (units (unknown) date) protein calorie unknown) malnutrition (unknown) (no (unknown) (unknown) 7. Generalized (units (unknown) date) pain and headache unknown) (unknown) (no (unknown) (unknown) 86-year-old female (units (unknown) date) with a history of unknown) atrial fibrillation anticoagulated on (unknown) (no (unknown) (unknown) 86-year-old female (units (unknown) date) with known coronary unknown) artery disease, permanent atrial (unknown) (no (unknown) (unknown) ABD: Soft, mildly (units (unknown) date) diffuse tenderness, unknown) ND, BT present in all 4 quadrants, no (unknown) (no (unknown) (unknown) Abdominal pain (units (unknown) date) unknown) (unknown) (no (unknown) (unknown) Activity: As (units (u nknown) date) tolerated w/assist unknown) (unknown) (no (unknown) (unknown) Acute pancreatitis (units (unknown) date) unknown) (unknown) (no (unknown) (unknown) Age/Sex: 86 / F (units (unknown) date) unknown) (unknown) (no (unknown) (unknown) Anesthesia (units (unk nown) date) unknown) (unknown) (no (unknown) (unknown) Anticoagulated (units (unknown) date) unknown) (unknown) (no (unknown) (unknown) Anxiety (units (unkno wn) date) unknown) 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 () (unknown) (no (unknown) (unknown) 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 (09/28/12) (unknown) (no (unknown) (unknown) Asthma (units (unkno wn) date) unknown) (unknown) (no (unknown) (unknown) Attending (units (unkn own) date) Provider: unknown) Eliana Barry (unknown) (no (unknown) (unknown) BUN 37 H (units (unk nown) date) unknown) (unknown) (no (unknown) (unknown) BUN/Creatinine (units (unknown) date) Ratio 43.5 H unknown) (unknown) (no (unknown) (unknown) Baso # (Auto) 0 (units (unknown) date) unknown) (unknown) (no (unknown) (unknown) Baso % (Auto) 0.6 (units (unknown) date) unknown) (unknown) (no (unknown) (unknown) Breast cancer (units ( unknown) date) (-2001) unknown) (unknown) (no (unknown) (unknown) 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) unknown) (unknown) (no (unknown) (unknown) CHEST: Respiratory (units (unknown) date) excursions unknown) symmetric, CTAB (unknown) (no (unknown) (unknown) CV:? 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 She is afebrile, blood (unknown) (no (unknown) (unknown) Chief complaint: (units (unknown) date) Chest Pain unknown) (unknown) (no (unknown) (unknown) Chloride 103 (units (unknown) date) unknown) (unknown) (no (unknown) (unknown) Cholelithiasis (units (unknown) date) unknown) (unknown) (no (unknown) (unknown) Chronic back pain (units (unknown) date) unknown) (unknown) (no (unknown) (unknown) Consult to (units (unk nown) date) Dietitian, Adult unknown) Routine (unknown) (no (unknown) (unknown) Consult to WEIGHT SHIFTER - (units (unknown) 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) Routine (unknown) (no (unknown) (unknown) Consult to WEIGHT SHIFTER - (units (unknown) 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) Stat (unknown) (no (unknown) (unknown) Consult to (units (unk nown) date) Occupational unknown) Therapy Evaluate + Treat (unknown) (no (unknown) (unknown) Consult to (units (unk nown) date) Pastoral Services unknown) Routine (unknown) (no (unknown) (unknown) Consult to (units (unk nown) date) Physical Therapy unknown) Evaluate + Treat (unknown) (no (unknown) (unknown) Consult to (units (unk nown) date) Physician Routine unknown) (unknown) (no (unknown) (unknown) Consults: (units (unkn own) date) unknown) (unknown) (no (unknown) (unknown) Continued (units (unkn own) date) unknown) (unknown) (no (unknown) (unknown) Creatinine 0.85 (units (unknown) date) unknown) (unknown) (no (unknown) (unknown) : 1935 (units (unknown) date) Acct:[id number] unknown) (unknown) (no (unknown) (unknown) Date Patient Seen: (units (unknown) date) 04/15/22 unknown) (unknown) (no (unknown) (unknown) Date of admission: (units (unknown) date) unknown) (unknown) (no (unknown) (unknown) Deep Vein (units (unkn own) date) Thrombosis/Pulmonar unknown) y Embolism Present on Admission: No (unknown) (no (unknown) (unknown) Depression (units (unk nown) date) (emotion) unknown) (unknown) (no (unknown) (unknown) Developmental (units ( unknown) date) disorder unknown) (unknown) (no (unknown) (unknown) Diarrhea (units (unkno wn) date) unknown) (unknown) (no (unknown) (unknown) Diet comment: Easy (units (unknown) date) chew; vanilla unknown) ensure BID, pepsi okay (unknown) (no (unknown) (unknown) Diet/Activity/[place] (units (unknown) date) tments unknown) (unknown) (no (unknown) (unknown) Diet: Regular (units ( unknown) date) unknown) (unknown) (no (unknown) (unknown) Discharge (units (unkn own) date) (Order); Ordered unknown) 04/15/22 (unknown) (no (unknown) (unknown) Discharge Data (units (unknown) date) unknown) (unknown) (no (unknown) (unknown) Discharge Date: (units (unknown) date) 04/15/22 unknown) (unknown) (no (unknown) (unknown) Discharge (units (unkn own) date) Diagnosis: unknown) (unknown) (no (unknown) (unknown) Discharge Orders: (units (unknown) date) unknown) (unknown) (no (unknown) (unknown) Discharge Plan (units (unknown) date) unknown) (unknown) (no (unknown) (unknown) Discharge (units (unkn own) date) Providers unknown) (unknown) (no (unknown) (unknown) Discharge orders + (units (unknown) date) Medications unknown) (unknown) (no (unknown) (unknown) Discharge (units (unkn own) date) provider: unknown) (unknown) (no (unknown) (unknown) Discontinued (units (u nknown) date) unknown) (unknown) (no (unknown) (unknown) EXTR: warm, well (units (unknown) date) perfused, no C/C/E unknown) (unknown) (no (unknown) (unknown) Eos # (Auto) 200 (units (unknown) date) unknown) (unknown) (no (unknown) (unknown) Eos % (Auto) 2.9 (units (unknown) date) unknown) (unknown) (no (unknown) (unknown) Essential (units (unkn own) date) hypertension unknown) (09/28/12) (unknown) (no (unknown) (unknown) Estimated GFR > (units (unknown) date) 60 unknown) (unknown) (no (unknown) (unknown) Exam (units (unkno wn) date) unknown) (unknown) (no (unknown) (unknown) Exam Narrative: (units (unknown) date) unknown) (unknown) (no (unknown) (unknown) Failure to thrive (units (unknown) date) in adult unknown) (unknown) (no (unknown) (unknown) Family History (units (unknown) date) (Reviewed 04/14/22 unknown) @ 15:42 by Stephane Gonzalez DO) (unknown) (no (unknown) (unknown) Father (units (unknown) date) Myocardial infarct unknown) (unknown) (no (unknown) (unknown) Fibrocystic breast (units (unknown) date) disease unknown) (unknown) (no (unknown) (unknown) Food texture: Soft (units (unknown) date) unknown) (unknown) (no (unknown) (unknown) GEN:? Alert and (units (unknown) date) cooperative elderly unknown) female, lying in the hospital room on bed, (unknown) (no (unknown) (unknown) GERD (units (unkno wn) date) (gastroesophageal unknown) reflux disease) (unknown) (no (unknown) (unknown) Glucose 82 (units (u nknown) date) unknown) (unknown) (no (unknown) (unknown) HEENT:NC, Face (units (unknown) date) symmetric unknown) (unknown) (no (unknown) (unknown) Hct 28.2 L (units (un known) date) unknown) (unknown) (no (unknown) (unknown) Hgb 9.5 L (units (unk nown) date) unknown) (unknown) (no (unknown) (unknown) History of Present (units (unknown) date) Illness unknown) (unknown) (no (unknown) (unknown) History of colon (units (unknown) date) polyps (09/28/12) unknown) (unknown) (no (unknown) (unknown) History of left (units (unknown) date) breast cancer unknown) (-2008) (unknown) (no (unknown) (unknown) Hospital Course (units (unknown) date) unknown) (unknown) (no (unknown) (unknown) Hospital Course: (units (unknown) date) unknown) (unknown) (no (unknown) (unknown) Hyperlipidemia (units (unknown) date) unknown) (unknown) (no (unknown) (unknown) I certify the (units ( unknown) date) postop hospital unknown) fci care is medically necessary on a 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) unknown) (unknown) (no (unknown) (unknown) Instructions: (units ( unknown) date) Vertigo, How to unknown) Prevent Falls (unknown) (no (unknown) (unknown) Labs (units (unkno wn) date) unknown) (unknown) (no (unknown) (unknown) Labs: (units (unkno wn) date) unknown) (unknown) (no (unknown) (unknown) Liquid (units (unkno wn) date) consistency: unknown) Normal/Thin (unknown) (no (unknown) (unknown) Lymph # (Auto) (units (unknown) date) 2100 unknown) (unknown) (no (unknown) (unknown) Lymph % (Auto) (units (unknown) date) 37.3 unknown) (unknown) (no (unknown) (unknown) [id number] (units (unk nown) date) unknown) (unknown) (no (unknown) (unknown) MCH 30.6 (units (unkn own) date) unknown) (unknown) (no (unknown) (unknown) MCHC 33.7 (units (unk nown) date) unknown) (unknown) (no (unknown) (unknown) MCV 90.8 (units (unkn own) date) unknown) (unknown) (no (unknown) (unknown) Stephane Gonzalez, (units (unknown) date) DO unknown) (unknown) (no (unknown) (unknown) [place] (units (unkno wn) date) unknown) (unknown) (no (unknown) (unknown) Medical History (units (unknown) date) (Reviewed 04/14/22 unknown) @ 15:42 by Stephane Gonzalez, DO) 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 Nonfocal (units (unknown) date) unknown) (unknown) (no (unknown) (unknown) Narrative (units (unkn own) date) unknown) (unknown) (no (unknown) (unknown) Narrative: (units (unk nown) date) unknown) (unknown) (no (unknown) (unknown) Neut # (Auto) (units ( unknown) date) 2800 unknown) (unknown) (no (unknown) (unknown) Neut % (Auto) (units ( unknown) date) 49.3 L unknown) (unknown) (no (unknown) (unknown) New (units (unkno wn) date) unknown) (unknown) (no (unknown) (unknown) Objective (units (unkn own) date) unknown) (unknown) (no (unknown) (unknown) Osteoarthritis of (units (unknown) date) knees, bilateral unknown) (unknown) (no (unknown) (unknown) Other facility: (units (unknown) date) Adult family care unknown) home (unknown) (no (unknown) (unknown) Oxygen Delivery (units (unknown) date) Method Room Air unknown) (unknown) (no (unknown) (unknown) Oxygen Flow Rate (units (unknown) date) 0 unknown) (unknown) (no (unknown) (unknown) Oxygen: N/A (units (un known) date) unknown) (unknown) (no (unknown) (unknown) PFSH (units (unkno wn) date) unknown) (unknown) (no (unknown) (unknown) Patient (units (unkno wn) date) Disposition: unknown) Released, Other (unknown) (no (unknown) (unknown) Patient: (units (unkno wn) date) Jackie Prather unknown) MR#: (unknown) (no (unknown) (unknown) 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) (unknown) (no (unknown) (unknown) Plt Count 192 (units (unknown) date) unknown) (unknown) (no (unknown) (unknown) Potassium 4.9 (units (unknown) date) unknown) (unknown) (no (unknown) (unknown) Prescriptions: (units (unknown) date) unknown) (unknown) (no (unknown) (unknown) 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 (unknown) (no (unknown) (unknown) Psychiatry with (units (unknown) date) recommendations for unknown) guardianship given her SLUMS was (unknown) (no (unknown) (unknown) Quality (units (unkno wn) date) unknown) (unknown) (no (unknown) (unknown) RBC 3.11 L (units (un known) date) unknown) (unknown) (no (unknown) (unknown) RDW 16.0 H (units (un known) date) unknown) (unknown) (no (unknown) (unknown) Resolved issues: (units (unknown) date) unknown) (unknown) (no (unknown) (unknown) Result Diagrams: (units (unknown) date) unknown) (unknown) (no (unknown) (unknown) SKIN: warm and (units (unknown) date) dry, no rash unknown) (unknown) (no (unknown) (unknown) She recently had a (units (unknown) date) 2 day admission for unknown) adult failure to thrive.? She has a (unknown) (no (unknown) (unknown) She was discharged (units (unknown) date) on metoprolol and unknown) losartan. She states she and her son moved (unknown) (no (unknown) (unknown) Signed (units (unkno wn) date) By:<Electronically unknown) signed by Keya SafnordO.> (unknown) (no (unknown) (unknown) Sister (units (unknown) date) Traumatic unknown) amputation (unknown) (no (unknown) (unknown) Smoking Status: (units (unknown) date) Never smoker unknown) (unknown) (no (unknown) (unknown) Social History (units (unknown) date) (Reviewed 04/14/22 unknown) @ 15:42 by Stephane Gonzalez, ) (unknown) (no (unknown) (unknown) Sodium 134 L (units (unknown) date) unknown) (unknown) (no (unknown) (unknown) Speech and (units (unk nown) date) language unknown) 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 (09/28/12) (unknown) (no (unknown) (unknown) Status post (units (un known) date) arthroscopy unknown) (unknown) (no (unknown) (unknown) Status post biopsy (units (unknown) date) (-2014) unknown) (unknown) (no (unknown) (unknown) Status post breast (units (unknown) date) lumpectomy (-2008) unknown) (unknown) (no (unknown) (unknown) Status post (units (un known) date) cholecystectomy unknown) (unknown) (no (unknown) (unknown) 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 (unknown) (no (unknown) (unknown) Status post (units (un known) date) hysterectomy unknown) (-2009) (unknown) (no (unknown) (unknown) Summary (units (unkno wn) date) unknown) (unknown) (no (unknown) (unknown) Surgical History (units (unknown) date) (Reviewed 04/14/22 unknown) @ 15:42 by Stephane Gonzalez DO) (unknown) (no (unknown) (unknown) 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, NYHA (unknown) (no (unknown) (unknown) The receiving (units ( unknown) date) facility has agreed unknown) to accept transfer and provide medical (unknown) (no (unknown) (unknown) Time Patient Seen: (units (unknown) date) 08:35 unknown) (unknown) (no (unknown) (unknown) Transportation: (units (unknown) date) Wheelchair unknown) (unknown) (no (unknown) (unknown) VTE (units (unkno wn) date) unknown) (unknown) (no (unknown) (unknown) Visit (units (unkno wn) date) Report/Discharge unknown) Packet (unknown) (no (unknown) (unknown) Vital Signs (units (un known) date) unknown) (unknown) (no (unknown) (unknown) WBC 5.7 (units (unkno wn) date) unknown) (unknown) (no (unknown) (unknown) [Embedded Image (units (unknown) date) Not Available] unknown) (unknown) (no (unknown) (unknown) ability to take (units (unknown) date) her home.? APS unknown) referral was made March 18 in light of ongoing (unknown) (no (unknown) (unknown) admitted with (units ( unknown) date) chest pain.? unknown) Patient underwent stress testing and had a low risk (unknown) (no (unknown) (unknown) alcohol intake: (units (unknown) date) never unknown) (unknown) (no (unknown) (unknown) ambulance, but (units (unknown) date) does not remember unknown) who. Denies shortness of breath, does endorse (unknown) (no (unknown) (unknown) apixaban, history (units (unknown) date) of heart failure, unknown) hypertension, hyperlipidemia, prior history (unknown) (no (unknown) (unknown) caregiving (units (unk nown) date) concerns.? [facility] unknown) attempted to make contact with the patient's son, (unknown) (no (unknown) (unknown) class 2 (06/05/11) (units (unknown) date) unknown) (unknown) (no (unknown) (unknown) consistent with (units (unknown) date) dementia and will unknown) need 24/ supervision.?She was deemed not to (unknown) (no (unknown) (unknown) continuing basis (units (unknown) date) for any conditions unknown) for which he/ she received care during this (unknown) (no (unknown) (unknown) denies having (units ( unknown) date) diarrhea. Positive unknown) for urinary burning and constipation, has not (unknown) (no (unknown) (unknown) enzymes are within (units (unknown) date) normal limits, unknown) troponins x2 are not negative, UA is negative (unknown) (no (unknown) (unknown) fibrillation on (units (unknown) date) apixaban, history unknown) of congestive heart failure ( unknown if (unknown) (no (unknown) (unknown) for UTI and (units (un known) date) COVID-19 PCR is unknown) negative. (unknown) (no (unknown) (unknown) had a bm in Patient (units (unknown) date) previously here in unknown) late January for adult failure to thrive, per (unknown) (no (unknown) (unknown) have capacity to (units (unknown) date) make her own unknown) decisions. Since that time, patient's son was able (unknown) (no (unknown) (unknown) having pain on the (units (unknown) date) left side of her unknown) neck, right arm. Denies nausea or vomiting, (unknown) (no (unknown) (unknown) her metoprolol (units (unknown) date) tartrate from unknown) 12.5mg daily to BID, remeron was added and a (unknown) (no (unknown) (unknown) history of atrial (units (unknown) date) fibrillation and an unknown) echocardiogram was done on February 17 and (unknown) (no (unknown) (unknown) home through the (units (unknown) date) state after 28 days unknown) of admission in the hospital. Her home meds (unknown) (no (unknown) (unknown) hospitalization.: (units (unknown) date) Yes unknown) (unknown) (no (unknown) (unknown) household members: (units (unknown) date) children unknown) (unknown) (no (unknown) (unknown) into the house (units (unknown) date) they previously unknown) lived in and had to give up her trailer. (unknown) (no (unknown) (unknown) it was discovered (units (unknown) date) that they had unknown) evidently been evicted.? Additionally, they (unknown) (no (unknown) (unknown) multivitamin. (units ( unknown) date) unknown) (unknown) (no (unknown) (unknown) nitroglycerin at (units (unknown) date) home and the pain unknown) resolved.? States 'someone' called the (unknown) (no (unknown) (unknown) of CVA, presents (units (unknown) date) to the emergency unknown) department with chest pain.? She took (unknown) (no (unknown) (unknown) of research attorney and is (units (unknown) date) agreeable with unknown) placement. Able to be placed at adult family (unknown) (no (unknown) (unknown) organomegaly or (units (unknown) date) masses unknown) (unknown) (no (unknown) (unknown) palm/fingers/back (units (unknown) date) of hand unknown) (unknown) (no (unknown) (unknown) patient she is (units (unknown) date) living in a better unknown) situation. (unknown) (no (unknown) (unknown) pressure is 202/98 (units (unknown) date) however in the ED unknown) her systolic blood pressure was actually (unknown) (no (unknown) (unknown) relief. (units (unkno wn) date) unknown) (unknown) (no (unknown) (unknown) reported the (units (u nknown) date) patient has signed unknown) him out of the jones with a machete, looked at (unknown) (no (unknown) (unknown) scan.? She was (units (unknown) date) approved for unknown) discharge on March 18, but staff could not get her (unknown) (no (unknown) (unknown) she was found to (units (unknown) date) have an EF of unknown) 35-40% 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? (unknown) (no (unknown) (unknown) son on the phone (units (unknown) date) who is her POA.? unknown) She remained in the hospital pending his (unknown) (no (unknown) (unknown) systolic or (units (un known) date) diastolic), unknown) hypertension, hyperlipidemia, and prior stroke who was (unknown) (no (unknown) (unknown) them, and returned (units (unknown) date) into the jones.? unknown) Patient has since been evaluated by (unknown) (no (unknown) (unknown) to be engaged in (units (unknown) date) the process.? He is unknown) willing to continue to be her durable power (unknown) (no (unknown) (unknown) treatment.: Yes (units (unknown) date) unknown) (unknown) (no (unknown) (unknown) weighs 62.2 kg (units (unknown) date) with a BMI of unknown) 20.2.? CBC and chemistries are unremarkable, liver (unknown) (no (unknown) (unknown) were continued as (units (unknown) date) is other than her unknown) losartan changed from 50mg to 25mg daily, Result panel 85 (unknown) (no date) (unknown) (unknown) Negative (units (unkn own) unknown) Social History date description facility (no date) Never smoked tobacco (finding) [facility] Vital Signs date measurement value units +0000 BMI BMI 21.1 kg/m2 +0000 height_metric height_metric 170.18 cm +0000 height_standard height_standard 67 in +0000 temperature_metric temperature_metric 36.5 C +0000 temperature_standard temperature_standard 9 7.7 F +0000 weight_metric weight_metric 27.78 kg +0000 weight_standard weight_standard 61.23 lb +0000 BP_diastolic BP_diastolic 99 mm[H g] +0000 BP_systolic BP_systolic 189 mm[Hg] +0000 heart_rate heart_rate 64 /min +0000 height_metric height_metric 170.18 cm +0000 height_standard height_standard 67 in +0000 respiration_rate respiration_rate 11 /min +0000 weight_metric weight_metric 27.71 kg +0000 weight_standard weight_standard 61.1 lb +0000 temperature_metric temperature_metric 36.11 C +0000 temperature_standard temperature_standard 9 7 F +0000 BP_diastolic BP_diastolic 72 mm[H g] +0000 BP_systolic BP_systolic 146 mm[Hg] +0000 heart_rate heart_rate 62 /min +0000 respiration_rate respiration_rate 19 /min
--- NOTE | 2022-06-02 16:56 | ED Physician Documentation ---
History of Present Illness - Stated complaint Stated Complaint: CONJUNCTIVITIS - Chief complaint Chief Complaint: General - History obtained from History obtained from: Patient, EMS - History of Present Illness Pain level max: 0 Pain level now: 0 - Additonal information Additional information: Patient is an 86-year-old female who presents to the emergency department with bilateral conjunctivitis. She states has been going on for the past several weeks. Yellow drainage from the bilateral eyes. Nothing makes it better or worse. She states that she has a mild cough, present for the past several weeks as well. No fevers. No chills. She states that she has had constipation alternating with diarrhea for several years. No chest pain. No shortness of breath. She states she did not want to come to the hospital today but that the police called 911 to bring her to the hospital. Review of Systems Ten Systems: 10 systems reviewed and negative Constitutional: denies: Fever, Chills Nose: denies: Rhinorrhea / runny nose, Congestion Throat: denies: Sore throat Cardiac: denies: Chest pain / pressure Respiratory: denies: Dyspnea, Cough : denies: Dysuria Skin: denies: Rash Musculoskeletal: denies: Neck pain, Back pain Neurologic: denies: Headache PD PAST MEDICAL HISTORY - Past Medical History Cardiovascular: Hypertension, High cholesterol, Coronary artery disease, [place] Respiratory: Asthma, Pneumonia, Other Neuro: None, Alzhiemer's, CVA, Peripheral neuropathy Endocrine/Autoimmune: None GI: GERD, Colon polyps, Chronic diarrhea, Other : Kidney stones, Other HEENT: Other Psych: Anxiety, Other Musculoskeletal: Osteoarthritis, Chronic back pain Derm: None - Past Surgical History Past Surgical History: Yes General: Cholecystectomy, Colonoscopy Ortho: 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, Other Cardiovascular: CABG, Coronary stent - Present Medications Home Medications: Ambulatory Orders Medication Instructions Recorded Confirmed Albuterol Sulfate [Proair Hfa 2 puffs INH Q6H PRN 03/31/15 05/15/18 Inhaler] Loratadine [Allergy Relief] 10 mg PO DAILY 03/31/15 05/15/18 Metoprolol Tartrate [Lopressor] 50 mg PO BID 03/31/15 05/15/18 [place]-3 Fatty Acids/Fish Oil 1 gm PO DAILY 03/31/15 05/15/18 [[place] 3 1,000 mg Softgel] Atorvastatin Calcium 80 mg PO QPM 05/15/18 05/15/18 Hydrocodone/Acetaminophen 1 tab PO BID PRN 05/15/18 05/15/18 [Hydrocodone-Acetamin 5-325 mg] Nitroglycerin 0.4 mg SL Q5MIN PRN MDD 3 DOSES 05/15/18 05/15/18 Ondansetron Odt [Zofran Odt] 4 mg PO Q6HR PRN 05/15/18 05/15/18 Pantoprazole Sodium 40 mg PO DAILY 05/15/18 05/15/18 Warfarin Sodium 1.5 mg PO DAILY 05/15/18 polyethylene glycoL 3350 [Miralax] 17 gm PO DAILY PRN #1 bottle 10/10/21 Nitrofurantoin [Macrobid] 100 mg PO BID #10 cap 06/02/22 Polymyxin B/Trimeth Ophth Drop 1 drops EACHEYE Q3H 7 Days #10 ml 06/02/22 [Polytrim Ophth Drops] - Allergies Allergies/Adverse Reactions: Allergies Allergy/AdvReac Type Severity Reaction Status Date / Time furosemide Allergy Intermediate Rash Verified 06/02/22 16:45 Penicillins Allergy Rash Verified 06/02/22 16:45 lisinopril AdvReac Mild Cough Verified 06/02/22 16:45 - Social History Does the pt smoke?: No Smoking Status: Never smoker Does the pt drink ETOH?: No Does the pt have substance abuse?: No - Immunizations Immunizations are current?: Yes - POLST Patient has POLST: No POLST Status: Full Code PD ED PE NORMAL - Vitals Vital signs reviewed: Yes - General General: Alert and oriented X 3, No acute distress - HEENT HEENT: Moist mucous membranes, Other (Bilateral conjunctivitis, yellow drainage.) - Neck Neck: Supple, no meningeal sign - Cardiac Cardiac: RRR, Strong equal pulses - Respiratory Respiratory: No respiratory distress, Clear bilaterally - Abdomen Abdomen: Soft, Non tender, Non distended - Derm Derm: Warm and dry - Neuro Neuro: Alert and oriented X 3, No motor deficit, No sensory deficit, Normal speech - Psych Psych: Normal mood, Normal affect Results - Vitals Vitals: Vital Signs - 24 hr 06/02/22 06/02/22 16:35 20:47 Temperature 37.8 C 36.2 C L Heart Rate 73 67 Respiratory 16 16 Rate Blood Pressure 123/53 L 148/68 H O2 Saturation 95 99 Oxygen O2 Source Room air - Labs Labs: Laboratory Tests 06/02/22 06/02/22 06/02/22 16:57 16:57 17:25 WBC 8.3 RBC 3.46 L Hgb 10.7 L Hct 34.2 L MCV 98.8 MCH 30.9 MCHC 31.3 L RDW 15.8 H Plt Count 214 MPV 9.4 Neut # (Auto) 6.1 Lymph # (Auto) 1.4 L Motley # (Auto) 0.6 Eos # (Auto) 0.1 Baso # (Auto) 0.0 Absolute Nucleated RBC 0.00 Nucleated RBC % 0.0 Sodium 141 Potassium 4.3 Chloride 105 Carbon Dioxide 28 Anion Gap 8.0 BUN 21 H Creatinine 0.7 Estimated GFR (MDRD) 80 L Glucose 83 Calcium 9.3 Total Bilirubin 0.8 AST 14 ALT 11 Alkaline Phosphatase 85 Total Protein 7.1 Albumin 3.8 Globulin 3.3 Albumin/Globulin Ratio 1.2 Lipase 28 Urine Color YELLOW Urine Clarity HAZY Urine pH 7.0 Ur Specific Sylvia <=1.005 Urine Protein NEGATIVE Urine Glucose (UA) NEGATIVE Urine Ketones NEGATIVE Urine Occult Blood MODERATE H Urine Nitrite POSITIVE H Urine Bilirubin NEGATIVE Urine Urobilinogen 0.2 (NORMAL) Ur Leukocyte Esterase LARGE H Urine RBC 11-25 H Urine WBC >25 H Urine WBC Clumps PRESENT Ur Squamous Epith Cells FEW Squamous Urine Bacteria Many H Ur Microscopic Review INDICATED Urine Culture Comments INDICATED PD MEDICAL DECISION MAKING - ED course Complexity details: reviewed results, re-evaluated patient, considered differential, d/w patient, d/w family ED course: No significant lab abnormalities. Patient is well-appearing, nontoxic. Afebr ile. Given Rocephin for the UTI and placed on Polytrim ophthalmic for the conjunctivitis. Patient states that she does not want to stay overnight in the emergency department to speak with social work. She is requesting to be discharged home with her son. I contacted her son. He states that "you can put her out on the [employer]. I am not coming to get her". He states that he is not going to take care of her and refuses to allow her to leave the emergency department. The patient became quite tearful when she was told that she would have to stay in the emergency department and her son refused to come and take care of her. We will have her talk to social work in the morning. [facility]. Departure - Departure Clinical Impression: Conjunctivitis Qualifiers: Conjunctivitis type: acute Acute conjunctivitis type: bacterial Laterality: bilateral Qualified Code(s): H10.33 - Unspecified acute conjunctivitis, bilateral UTI (urinary tract infection) Qualifiers: Urinary tract infection type: acute cystitis Hematuria presence: without hematuria Qualified Code(s): N30.00 - Acute cystitis without hematuria Condition: Good Instructions: ED Conjunctivitis Bacterial, ED UTI Cystitis Female Follow-Up: your,doctor in 1 week for recheck [Other] Prescriptions: Nitrofurantoin [Macrobid] 100 mg PO BID #10 cap Polymyxin B/Trimeth Ophth Drop [Polytrim Ophth Drops] 1 drops EACHEYE Q3H 7 Days #10 ml
--- NOTE | 2022-06-02 17:00 | XRAY Report ---
PROCEDURE: Chest 1 View X-Ray INDICATIONS: cough TECHNIQUE: One view of the chest was acquired. COMPARISON: 05/16/2018 chest x-ray FINDINGS: Surgical changes and devices: Median sternotomy. Lungs and pleura: No pleural effusions or pneumothorax. Mild diffuse reticulonodular pulmonary opaci ty. Mediastinum: Mediastinal contours appear normal. Heart size is normal. Bones and chest wall: No suspicious bony lesions. Overlying soft tissues appear unremarkable. IMPRESSION: Mild atypical pneumonia. Reviewed by: Roxy Penaloza MD on 06/02/2022 4:59 PM PDT Approved by: Roxy Penaloza MD on 06/02/2022 4:59 PM PDT Station ID: [id number]
[2022-06-02 17:04] LABS: BASOPHILS % (AUTO) 0.4 %; EOSINOPHILS # (AUTO) 0.1 10^3/uL (0.0-0.7); EOSINOPHILS % (AUTO) 1.2 %; HCT - HEMATOCRIT 34.2 % (37.0-47.0); HGB - HEMOGLOBIN 10.7 g/dL (12.0-16.0); LYMPHOCYTES # (AUTO) 1.4 10^3/uL (1.5-3.5); LYMPHOCYTES % (AUTO) 17.3 %; MEAN CORPUSCULAR HEMOGLOBIN 30.9 pg (27.0-31.0); MEAN CORPUSCULAR HGB CONC 31.3 g/dL (32.0-36.0); MEAN CORPUSCULAR VOLUME 98.8 fL (81.0-99.0); MEAN PLATELET VOLUME 9.4 fL (7.9-10.8); MONOCYTES # (AUTO) 0.6 10^3/uL (0.0-1.0); MONOCYTES % (AUTO) 7.3 %; NEUTROPHILS # (AUTO) 6.1 10^3/uL (1.5-6.6); NEUTROPHILS % (AUTO) 73.2 %; PLT - PLATELET COUNT 214 10^3/uL (130-450); RED BLOOD COUNT 3.46 10^6/uL (4.20-5.40); RED CELL DISTRIBUTION WIDTH 15.8 % (12.0-15.0); WHITE BLOOD COUNT 8.3 x10^3/uL (4.8-10.8)
[2022-06-02 17:13] LABS: ALBUMIN 3.8 g/dL (3.2-5.5); ALBUMIN/GLOBULIN RATIO 1.2 (1.0-2.2); BILIRUBIN,TOTAL 0.8 mg/dL (0.2-1.0); CALCIUM 9.3 mg/dL (8.5-10.3); CREATININE 0.7 mg/dL (0.4-1.0); POTASSIUM 4.3 mmol/L (3.5-5.0); TOTAL PROTEIN 7.1 g/dL (6.7-8.2)
[2022-06-02 17:37] LABS: BILIRUBIN,URINE NEGATIVE (NEGATIVE); GLUCOSE, URINE (UA) NEGATIVE (NEGATIVE); KETONES,URINE (UA) NEGATIVE (NEGATIVE); LEUKOCYTE ESTERASE, URINE LARGE (NEGATIVE); NITRITE,URINE POSITIVE (NEGATIVE); OCCULT BLOOD,URINE MODERATE (NEGATIVE); PROTEIN,URINE NEGATIVE (NEGATIVE); UROBILINOGEN,URINE 0.2 (NORMAL) E.U./dL (NORMAL)
[2022-06-02 17:48] LABS: CLARITY,URINE HAZY (CLEAR)
[2022-06-02 17:49] LABS: BACTERIA,URINE Many /HPF (None Seen); SQUAMOUS EPITHELIAL CELL,UR FEW Squamous (<= Few); WBC CLUMPS,URINE PRESENT; WBC,URINE >25 /HPF (0-5)
[2022-06-02] MEDS ORDERED: NITROFURANTOIN MACRO 100 MG CAPSULE PO STA (17:56)
[2022-06-03] MEDS: NITROFURANTOIN MACRO 100 MG CAPSULE PO SCH ×2 (09:34→20:53)
[2022-06-03] MEDS: POLYMYXIN B/TRIMETH OPHTH DROPS EACHEYE SCH ×3 (09:34→21:47)
[2022-06-03] MEDS ORDERED: GABAPENTIN 100 MG CAPSULE PO STA (12:28)
[2022-06-03] MEDS ORDERED: APIXABAN 5 MG TABLET PO SCH (13:00)
[2022-06-03] MEDS: PANTOPRAZOLE 40 MG TABLET PO SCH (14:17)
[2022-06-03] MEDS: LOSARTAN 50 MG TABLET PO SCH (14:17)
--- NOTE | 2022-06-03 17:41 | ED Physician Documentation ---
ED Addendum - Addendum Addendum: 06/03/22 17:38 Patient remained stable throughout her stay in the emergency department during the course of my shift after I received her in signout at the beginning of my shift. She was awaiting social work evaluation and also, APS evaluation after being dropped off here by her son yesterday with conjunctivitis. There was some controversy over whether or not the son actually had power of personal injury attorney, though the patient had stated that she wanted to be discharged and go back with her son. The son initially did not want to take the patient back but by today, had changed his mind. Social work did speak with him and he stated that a "high-end tent" was being prepared on a friend's property and he and the patient will stay in the tent. The patient was alert and oriented x3 and was very much agreeable to this plan. She did not seem to have any qualms about going back with her son. Ultimately, it was decided that APS would continue to follow this case and that the patient would be discharged with the son as is mutually desired by both of them. However, the son says the tent will not be ready until tomorrow and so the patient will continue to board in the emergency department. Final impression: 1. Conjunctivitis 2. Urinary tract infection Disposition: The plan is to discharge the patient with her son tomorrow.
[2022-06-03] MEDS: APIXABAN 5 MG TABLET PO SCH (20:52)
[2022-06-03] MEDS: MIRTAZAPINE 15 MG TABLET PO SCH (20:53)
[2022-06-04] MEDS: POLYMYXIN B/TRIMETH OPHTH DROPS EACHEYE SCH ×3 (06:20→21:24)
[2022-06-04] MEDS: NITROFURANTOIN MACRO 100 MG CAPSULE PO SCH ×2 (09:50→21:24)
[2022-06-04] MEDS: PANTOPRAZOLE 40 MG TABLET PO SCH (09:50)
[2022-06-04] MEDS: APIXABAN 5 MG TABLET PO SCH ×2 (09:50→21:24)
[2022-06-04] MEDS: LOSARTAN 50 MG TABLET PO SCH (09:50)
[2022-06-04] MEDS ORDERED: LIDOCAINE 1% 2 ML VIAL MC ONE (10:33)
[2022-06-04] MEDS ORDERED: cefTRIAXone 1 GM VIAL IM STA (10:33)
--- NOTE | 2022-06-04 10:36 | ED Physician Documentation ---
ED Addendum - Addendum Addendum: 06/04/22 10:33 86-year-old female boarding here awaiting her son to complete the set up of a tent for her to stay in. She has been evaluated for conjunctivitis and urinary tract infection and she has been placed on some sulfamethoxazole trimethoprim drops as well as some Macrobid. It turns out her urine is sensitive to the Macrobid. She is now able to open her eyes but she has increased swelling to her face and has pain and burning associated with movement of her eyelids. I reexamined the patient and found she appears to have some facial cellulitis associated with this. I did not find the Macrobid to be sufficient for treatment of this and we have given her a dose of Rocephin IM. 06/04/22 14:47 Called into the patient's room to evaluate for elevated temperature. The patient currently has a temperature 38 7. Patient is warm to the touch she is able to communicate effectively and I do believe that her facial swelling appears somewhat improved from my examination of the patient at 10:30 AM. Here we have drawn additional blood including blood cultures and we have provided an IV and intravenous saline. 06/04/22 15:15 06/04/22 18:27 Now sleeping comfortably with reduced swelling to face and eyelids. Hospitalist called at 1600 to consider admission. 06/04/22 18:28
[2022-06-04 14:55] LABS: BASOPHILS % (AUTO) 0.5 %; EOSINOPHILS # (AUTO) 0.1 10^3/uL (0.0-0.7); EOSINOPHILS % (AUTO) 2.1 %; HCT - HEMATOCRIT 37.2 % (37.0-47.0); HGB - HEMOGLOBIN 11.2 g/dL (12.0-16.0); LYMPHOCYTES % (AUTO) 16.7 %; MEAN CORPUSCULAR HEMOGLOBIN 29.7 pg (27.0-31.0); MEAN CORPUSCULAR HGB CONC 30.1 g/dL (32.0-36.0); MEAN CORPUSCULAR VOLUME 98.7 fL (81.0-99.0); MEAN PLATELET VOLUME 9.5 fL (7.9-10.8); MONOCYTES # (AUTO) 0.6 10^3/uL (0.0-1.0); MONOCYTES % (AUTO) 10.2 %; NEUTROPHILS % (AUTO) 70.3 %; PLT - PLATELET COUNT 210 10^3/uL (130-450); RED BLOOD COUNT 3.77 10^6/uL (4.20-5.40); RED CELL DISTRIBUTION WIDTH 15.7 % (12.0-15.0); WHITE BLOOD COUNT 5.7 x10^3/uL (4.8-10.8)
[2022-06-04] MEDS ORDERED: SODIUM CHLORIDE 0.9% 1,000 ML IV ONE (15:03)
[2022-06-04 15:09] LABS: ALBUMIN 3.8 g/dL (3.2-5.5); BILIRUBIN,TOTAL 0.8 mg/dL (0.2-1.0); CALCIUM 9.4 mg/dL (8.5-10.3); CREATININE 0.9 mg/dL (0.4-1.0); POTASSIUM 4.8 mmol/L (3.5-5.0); TOTAL PROTEIN 7.5 g/dL (6.7-8.2)
[2022-06-04] MEDS: MIRTAZAPINE 15 MG TABLET PO SCH (21:24)
[2022-06-04] MEDS: cephALEXin 250 MG CAPSULE PO SCH (23:30)
[2022-06-05] MEDS: cephALEXin 250 MG CAPSULE PO SCH ×3 (05:59→18:03)
[2022-06-05] MEDS: POLYMYXIN B/TRIMETH OPHTH DROPS EACHEYE SCH ×3 (05:59→21:43)
[2022-06-05] MEDS: LOSARTAN 50 MG TABLET PO SCH (10:40)
[2022-06-05] MEDS: PANTOPRAZOLE 40 MG TABLET PO SCH (10:40)
[2022-06-05] MEDS: APIXABAN 5 MG TABLET PO SCH ×2 (10:40→21:37)
[2022-06-05] MEDS: NITROFURANTOIN MACRO 100 MG CAPSULE PO SCH (10:40)
[2022-06-05] MEDS ORDERED: cefTRIAXone 1 GM in SODIUM CHLORIDE 0.9% MINIBAG 100 ML IV STA (16:56)
[2022-06-05] MEDS ORDERED: VANCOMYCIN INJ 1.25 GM in SODIUM CHLORIDE 0.9% 250 ML IV STA (16:56)
--- NOTE | 2022-06-05 16:58 | ED Physician Documentation ---
ED Addendum - Addendum Addendum: 06/05/22 16:58 This is a 86-year-old woman has been boarding in the emergency department for predominantly social reasons for the last few days, but yesterday had a fever and worsening facial cellulitis, she also has positive urine culture for E. coli. Today her blood cultures from yesterday become positive 1 out of 2 for gram-positive cocci. I looked at Dr. West's note yesterday and it mentioned presenting to this to the hospitalist but I spoke with Dr. Ayers today and s he was not aware of the patient. I re-presented the patient and she accepts for admission. I ordered IV Rocephin and vancomycin noting that she is homeless so at high risk for MRSA. Disposition admitted to the hospital Condition: Stable Diagnoses: 1. Bacteremia 2. Facial cellulitis
[2022-06-05] MEDS ORDERED: SODIUM CHLORIDE FLUSH 0.9% 10 ML SYRINGE IVP PRN (17:41)
[2022-06-05] MEDS ORDERED: ONDANSETRON 4 MG/2 ML VIAL IVP PRN (17:41)
--- NOTE | 2022-06-05 17:54 | HISTORY & PHYSICAL EXAMINATION ---
Chief Complaint - Chief Complaint Chief Complaint: swollen eyes, fever yesterdy, now has (+) blood cx drawn yesterdy, homeless History of Present Illness - Admitted From Admitted From:: ED - History Obtained From History obtained from: ED provider - History of Present Illness HPI Comment/Other: This is an 86-year-old white female who lives with her son and now they are both homeless for unknown period of time. 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 She was brought to the ER on 06/02/2022 by her son, who then left the ER, with c/o bilateral eyes swollen and crusted shut and diagnosed with bilateral conjunctivitis, and was put on eyes drops. Her u/a was also abnormal, but she had normal WBC and normal BMP. The son did not want to return to get her from the ER to take her home. She was boarding in the ER therefore, and social work was involved in the case. On 06/03/22, her urine culture turned positive for E. coli, and she was started on Macrobid. On 06/04/22, she had a fever of 38.7 degrees C and there was evidence of swelling of her face and she was diagnosed with facial cellulitis. Blood cultures were drawn and she had one IV Rocephin given, in addition to being on p.o. Macrobid. Today, 06/05/2022, the blood culture has turned positive for gram-positive cocci. The ED provider reached out to the Hospitalist team to have her admitted for treatment of bacteremia. She has a POLST on record from 2018 which states she wants full treatment and to be a full code. Additional history obtained from ER staff told to our [facility] staff is that the patient used to live in a long-term care facility. The son signed her out of the long-term care facility to live with him in order to get her monthly Social Security check money. They used to live in a trailer. They have been kicked out of the trailer park because of his drug abuse, specifically he used meth and fentanyl. 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 - Substance History Use: Uses substance without health or social issues: NONE - POLST Patient has POLST: No POLST Status: Full Code Meds/Allgy - Home Medications Home Medications: Ambulatory Orders Medication Instructions Recorded Confirmed Albuterol Sulfate [Proair Hfa 2 puffs INH Q6H PRN 03/31/15 06/03/22 Inhaler] Loratadine [Allergy Relief] 10 mg PO DAILY 03/31/15 06/03/22 Metoprolol Tartrate [Lopressor] 25 mg PO BID 03/31/15 06/03/22 [place]-3 Fatty Acids/Fish Oil 1 gm PO DAILY 03/31/15 06/03/22 [[place] 3 1,000 mg Softgel] Atorvastatin Calcium 80 mg PO QPM 05/15/18 06/03/22 Nitroglycerin 0.4 mg SL Q5MIN PRN MDD 3 DOSES 05/15/18 06/03/22 Pantoprazole Sodium 40 mg PO DAILY 05/15/18 06/03/22 polyethylene glycoL 3350 [Miralax] 17 gm PO DAILY PRN #1 bottle 10/10/21 06/03/22 Nitrofurantoin [Macrobid] 100 mg PO BID #10 cap 06/02/22 Polymyxin B/Trimeth Ophth Drop 1 drops EACHEYE Q3H 7 Days #10 ml 06/02/22 [Polytrim Ophth Drops] Apixaban [Eliquis] 5 mg PO DAILY 06/03/22 06/03/22 Gabapentin [Neurontin] 300 mg PO TID 06/03/22 06/03/22 Losartan Potassium 25 mg PO DAILY 06/03/22 06/03/22 Mirtazapine 7.5 mg PO DAILY 06/03/22 06/03/22 Pantoprazole Sodium [Protonix] 40 mg PO DAILY 06/03/22 06/03/22 - Allergies Allergies/Adverse Reactions: Allergies Allergy/AdvReac Type Severity Reaction Status Date / Time furosemide Allergy Intermediate Rash Verified 06/02/22 16:45 Penicillins Allergy Rash Verified 06/02/22 16:45 lisinopril AdvReac Mild Cough Verified 06/02/22 16:45 Review of Systems - Constitutional Constitutional: reports: Weakness - Eyes Eyes: reports: Pain, Other (swelling and drainage with crusting of the eyelids has resolved, but they still "hurt") - Ears, Nose & Throat Ears, Nose & Throat: reports: Other (Facial redness, minimal on R side) - Respiratory Respiratory: reports: Cough - Gastrointestinal Gastrointestinal: reports: Diarrhea (Had loose stool in ED today), Nausea (longstanding Hx in the past and had W/U) - All Other Systems All Other Systems: reports: Reviewed and negative Exam - Vital Signs Reviewed Vital Signs: Yes Vital Signs: Vital Signs x48h Temp Pulse Resp BP Pulse Ox 06/05/22 17:40 37.7 C 118 H 20 122/64 100 06/05/22 12:48 36.7 C 111 H 16 118/85 H 94 - Physical Exam General Appearance: positive: No acute distress Eyes Bilateral: positive: EOMI, No lid inflammation, Other (Mild redness R conjunctiva) ENT: positive: ENT inspection nml, Other (No swelling, redness or tenderness of the face) Neck: positive: Nml inspection, No JVD Respiratory: positive: No respiratory distress, Breath sounds nml Cardiovascular: positive: Regular rate & rhythm, No murmur Abdomen: positive: Non-tender, No distention Skin: positive: Warm, Dry, Other ((+) tenting) Extremities: positive: Non-tender, No pedal edema Neurologic/Psychiatric: positive: Oriented x3 (Non-focal) Conclusion/Plan - Problem List (1) Gram-positive bacteremia Conclusion/Plan: Patient had a fever yesterday and blood cultures were drawn then, these blood cultures have turned positive today growing gram-positive cocci. Yesterday her face had swelling and she was thought to have facial cellulitis. This is likely the source of her bacteremia. Since she is homeless, and her exposures are to unknown organisms therefore she is at risk for MRSA. She has been on Macrobid for the UTI and since got IV Rocephin yesterday and today plus started on iv Vanco today. Will continue with Rocephin and Vancomycin, to cover MRSA. Will start a probiotic There was no CBC done today, in the ED, to evaluate the WBC count. Will obtain a CBC and Lactic Acid level now, to check for sepsis. Will order maintenance iv fluids, given the fever. Will draw a repeat set of blood cultures on the combined antibiotics to assure there is no future bacterial growth. Await identification of this gram-positive coccus and sensitivities to tailor antibiotics going forward. She will need an Echocardiogram to evaluate for endocarditis. Follow CBC and/or CRP daily. (2) Facial cellulitis Conclusion/Plan: This was described in the ED note from yesterday. It is likely the source of her bacteremia. Treat as per plan in #1 (3) E. coli UTI Conclusion/Plan: her U/A was abn at presentation on 06/02/22. Then on 06/03/2022 in the ED, she had a positive urine culture, growing Ecoli and she was started on oral Macrobid. Now by being ordering iv Ceftriaxone, this will cover her E. coli, which is leger- sensitive, and the Macrobid will be stopped. (4) Conjunctivitis Conclusion/Plan: This was the initial presenting symptom with crusting, crusted shut and swollen eyelids. I suspect this may also have spread to the facial cellulitis. There is no further swelling or crusting, but mild redness present. Will continue with eyedrops to complete the course Qualifiers: Conjunctivitis type: acute Acute conjunctivitis type: bacterial Laterality: bilateral Qualified Code(s): H10.33 - Unspecified acute conjunctivitis, bilateral (5) Homeless family Conclusion/Plan: An APS report has been filed according to the notes since she has presented to the ED. The plan had been to set up a "high-end" tent and at friend's backyard where she and the son would live. Will continue to request social work to find her a safer place of residence afte r [facility] (6) Hx of coronary artery disease Conclusion/Plan: We will continue with her usual prescription meds for this, which is B-michelet, ARB, prn sl NTG and her anti-coagulant, since she is not on an anti-plt agent. (7) COPD (chronic obstructive pulmonary disease) Conclusion/Plan: We will continue with her usual prescription meds for this, which is just inhaler use prn wheezing (8) History of blood clots Conclusion/Plan: Her medication list, which has been reconciled, shows she is on Eliquis 5 mg twice daily. This is not for A. fib, CAD or her stroke Hx. 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 Will continue Eliquis. This will qualify as her DVT prophylaxis. - Lab Results Fish Bones: 06/06/22 05:51 06/06/22 05:51 - Other Other Results/Comments: Attestation: The patient is expected to be discharged or transferred to another facility for 96 hours: Yes.
[2022-06-05] MEDS ORDERED: NITROGLYCERIN SL 0.4 MG TABLET SL PRN (18:11)
[2022-06-05] MEDS ORDERED: polyethylene glycoL 3350 17 GM PACKET PO PRN (18:38)
[2022-06-05] MEDS ORDERED: ALBUTEROL NEB 2.5 MG/3 ML INH PRN (18:40)
[2022-06-05 18:59] LABS: BASOPHILS % (AUTO) 0.5 %; EOSINOPHILS # (AUTO) 0.1 10^3/uL (0.0-0.7); HCT - HEMATOCRIT 39.2 % (37.0-47.0); HGB - HEMOGLOBIN 12.2 g/dL (12.0-16.0); LYMPHOCYTES % (AUTO) 15.9 %; MEAN CORPUSCULAR HEMOGLOBIN 30.6 pg (27.0-31.0); MEAN CORPUSCULAR HGB CONC 31.1 g/dL (32.0-36.0); MEAN CORPUSCULAR VOLUME 98.2 fL (81.0-99.0); MEAN PLATELET VOLUME 9.5 fL (7.9-10.8); MONOCYTES # (AUTO) 0.6 10^3/uL (0.0-1.0); MONOCYTES % (AUTO) 9.4 %; NEUTROPHILS # (AUTO) 4.7 10^3/uL (1.5-6.6); NEUTROPHILS % (AUTO) 71.9 %; PLT - PLATELET COUNT 214 10^3/uL (130-450); RED BLOOD COUNT 3.99 10^6/uL (4.20-5.40); RED CELL DISTRIBUTION WIDTH 15.7 % (12.0-15.0); WHITE BLOOD COUNT 6.5 x10^3/uL (4.8-10.8)
[2022-06-05] MEDS: METOPROLOL TARTRATE 50 MG TABLET PO SCH (21:36)
[2022-06-05] MEDS: MIRTAZAPINE 15 MG TABLET PO SCH (21:37)
[2022-06-05] MEDS: SODIUM CHLORIDE FLUSH 0.9% 10 ML SYRINGE IVP SCH (23:43)
[2022-06-06] MEDS: ACETAMINOPHEN 325 MG TABLET PO PRN ×2 (00:33→11:09)
[2022-06-06] MEDS: POLYMYXIN B/TRIMETH OPHTH DROPS EACHEYE SCH ×3 (05:26→21:29)
[2022-06-06 06:02] LABS: BASOPHILS % (AUTO) 0.4 %; EOSINOPHILS # (AUTO) 0.2 10^3/uL (0.0-0.7); EOSINOPHILS % (AUTO) 3.6 %; HCT - HEMATOCRIT 35.3 % (37.0-47.0); HGB - HEMOGLOBIN 10.9 g/dL (12.0-16.0); LYMPHOCYTES # (AUTO) 1.2 10^3/uL (1.5-3.5); LYMPHOCYTES % (AUTO) 24.7 %; MEAN CORPUSCULAR HEMOGLOBIN 30.1 pg (27.0-31.0); MEAN CORPUSCULAR HGB CONC 30.9 g/dL (32.0-36.0); MEAN CORPUSCULAR VOLUME 97.5 fL (81.0-99.0); MEAN PLATELET VOLUME 9.5 fL (7.9-10.8); MONOCYTES # (AUTO) 0.7 10^3/uL (0.0-1.0); MONOCYTES % (AUTO) 15.6 %; NEUTROPHILS # (AUTO) 2.6 10^3/uL (1.5-6.6); NEUTROPHILS % (AUTO) 55.5 %; PLT - PLATELET COUNT 198 10^3/uL (130-450); RED BLOOD COUNT 3.62 10^6/uL (4.20-5.40); RED CELL DISTRIBUTION WIDTH 15.8 % (12.0-15.0); WHITE BLOOD COUNT 4.7 x10^3/uL (4.8-10.8)
[2022-06-06 06:18] LABS: CALCIUM 8.8 mg/dL (8.5-10.3); CREATININE 0.7 mg/dL (0.4-1.0); CRP - C-REACTIVE PROTEIN 5.9 mg/dL (0-1.0); MAGNESIUM 2.1 mg/dL (1.7-2.8); POTASSIUM 4.1 mmol/L (3.5-5.0)
--- NOTE | 2022-06-06 08:25 | PROVIDER PROGRESS NOTE ---
Assessment/Plan - Problem List (1) Gram-positive bacteremia Assessment/Plan: Patient had a fever while boarding in ED and blood cultures were drawn then, these blood cultures turned positive growing gram-positive cocci. She had some face swelling reported by ED provider and thought to have facial cellulitis. This may have been the source of her bacteremia. Since she is homeless, and her exposures are to unknown organisms therefore she is at risk for MRSA, so Vanco was started and Macrobid changed to Rocephin. We started a probiotic. Lactic Acid level ordered to check for sepsis. Will order maintenance iv fluids, given the fever. Will draw a repeat set of blood cultures today, on the combined antibiotics, to assure there is no future bacterial growth. Await identification of this gram-positive coccus and sensitivities to tailor antibiotics going forward>> That blood culture result has been finalized using PCR and it is Staph epidermis which is a contaminant. Will stop the Vanco. Will decrease Rocephin for UTI, not bacteremia treatment. She was ordered to get an Echocardiogram to evaluate for endocarditis, ordered for when the Correctional Program Officer arrives, today is Sun. Will cancel this. Her WBC has been normal, low today, thus we are following CRP daily. (2) Hyponatremia Conclusion/Plan: Unknown if she was getting IV fluids while she spent 3 days in the ED. On exam she has skin tenting. This is very likely hypovolemic hyponatremia therefore. IV fluids have been started because of the fever. Follow BMP daily (3) E. coli UTI Conclusion/Plan: Her U/A was abn at presentation on 06/02/22. Then on 06/03/2022 in the ED, she had a positive urine culture, growing Ecoli and she was started on oral Macrobid. Now by being on iv Ceftriaxone, this will cover her E. coli, which is leger- sensitive, and the Macrobid was stopped. (4) Conjunctivitis Conclusion/Plan: This was the initial presenting symptom with crusting, crusted shut and swollen eyelids. I suspect this may also have spread to the facial cellulitis. There is no further swelling or crusting, but mild redness and pain present today Will continue with eyedrops to complete the course Qualifiers: Conjunctivitis type: acute Acute conjunctivitis type: bacterial Laterality: bilateral Qualified Code(s): H10.33 - Unspecified acute conjunctivitis, bilateral (5) Homeless family Conclusion/Plan: An APS report has been filed according to the notes since she has presented to the ED. The plan had been to set up a "high-end" tent and at friend's backyard where she and the son would live. Will continue to request social work to find her a safer place of residence after DCh (6) Hx of coronary artery disease Conclusion/Plan: We will continue with her usual prescription meds for this, which is B-michelet, ARB, prn sl NTG and her anti-coagulant, since she is not on an anti-plt agent. (7) COPD (chronic obstructive pulmonary disease) Conclusion/Plan: We will continue with her usual prescription meds for this, which is just inhaler use prn wheezing (8) History of blood clots Conclusion/Plan: Her medication list, which has been reconciled, shows she is on Eliquis 5 mg twice daily. This is not for A. fib, CAD or her stroke Hx. 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 Will continue Eliquis. This will qualify as her DVT prophylaxis. (9) Facial cellulitis Conclusion/Plan: Resolved. This was described in the ED note. It is likely the source of her bacteremia. Treat as per plan in #1 - Current Meds Current Meds: Current Medications Generic Name Dose Route Start Last Admin Trade Name Freq PRN Reason Stop Dose Admin Acetaminophen 650 mg 06/05/22 17:41 06/06/22 00:33 Acetaminophen 325 Mg Tablet PO 650 mg Q4HR PRN Administration Pain 1 to 4, or Fever Apixaban 5 mg 06/03/22 21:00 06/05/22 21:37 Apixaban 5 Mg Tablet PO 5 mg BID DENILSON Administration Losartan Potassium 25 mg 06/03/22 13:00 06/05/22 10:40 Losartan 50 Mg Tablet PO 25 mg DAILY DENILSON Administration Metoprolol Tartrate 25 mg 06/05/22 21:00 06/05/22 21:36 Metoprolol Tartrate 50 Mg Tablet PO 25 mg BID DENILSON Administration Mirtazapine 15 mg 06/03/22 21:00 06/05/22 21:37 Mirtazapine 15 Mg Tablet PO 15 mg QPM DENILSON Administration Pantoprazole Sodium 40 mg 06/03/22 13:00 06/05/22 10:40 Pantoprazole 40 Mg Tablet PO 40 mg DAILY DENILSON Administration Polymyxin/Trimethoprim Sulfate 1 drops 06/03/22 08:00 06/06/22 05:26 Polymyxin B/Trimeth Ophth Drops EACHEYE 1 drops TID DENILSON Administration Sodium Chloride 10 ml 06/06/22 01:00 06/05/22 23:43 Sodium Chloride Flush 0.9% 10 Ml Syringe IVP 10 ml 0100,0900,1700 DENILSON Administration - Lab Result Fish Bone Diagrams: 06/06/22 05:51 06/06/22 05:51 - Additional Planning My Orders: My Active Orders 06/05/22 17:41 IO [RC] IOSHIFT Initiate Bowel Care Protocol [RC] .protocol Initiate Line Care Protocol [RC] QSHIFT Initiate Personal Care Protoco [RC] .protocol Vital Signs [RC] Q4HR Acetaminophen [Tylenol] 650 mg PO Q4HR PRN Ondansetron Inj [Zofran Inj] 4 mg IVP Q6HR PRN Sodium Chloride Flush 0.9% [Normal Saline Flush 0.9%] 10 ml IVP PRN PRN Code Status [OTHERS] Routine Condition of Patient [OTHERS] Routine DVT Prophylaxis [OTHERS] Routine 06/05/22 17:43 Daily Weight [RC] 0600 IV Insert [RC] .ONCE 06/05/22 18:11 Nitroglycerin [Nitrostat] 0.4 mg SL Q5MIN PRN 06/05/22 18:38 polyethylene glycoL 3350 [Miralax] 17 gm PO DAILY PRN 06/05/22 18:40 Albuterol 2.5 mg INH Q6H PRN 06/05/22 21:00 Metoprolol Tartrate [Lopressor] 25 mg PO BID 06/06/22 CULTURE, BLOOD #1 [RM] Urgent CULTURE, BLOOD #2 [RM] Urgent 06/06/22 01:00 Sodium Chloride Flush 0.9% [Normal Saline Flush 0.9%] 10 ml IVP 0100,0900,1700 06/06/22 Breakfast Cardiac Diet [DIET] 06/06/22 08:00 Saccharomyces Boulardii [Florastor] 250 mg PO BIDWM 06/06/22 09:00 Pantoprazole [Protonix] 40 mg PO DAILY 06/06/22 17:00 cefTRIAXone [Rocephin] 2 gm Sodium Chloride 0.9% Minibag [Normal Saline 0.9% Minibag] 100 ml IV Q24H 06/07/22 05:00 BMP - BASIC METABOLIC PANEL [CHEM] DAILYLAB CBC - COMP BLD CT W/AUTO DIFF [HEME] DAILYLAB CRP - C-REACTIVE PROTEIN [CHEM] DAILYLAB 06/08/22 05:00 BMP - BASIC METABOLIC PANEL [CHEM] DAILYLAB CBC - COMP BLD CT W/AUTO DIFF [HEME] DAILYLAB 06/08/22 07:00 Echo Transthoracic Complete [ECHO] Routine Subjective - Subjective Patient Reports: Other (Eyes still "hurt") Objective Vital Signs: Vital Signs - 24 hr 06/05/22 06/05/22 06/05/22 09:14 12:48 17:40 Temperature 36.7 C 37.7 C Heart Rate 92 111 H 118 H Heart Rate [ Brachial] Respiratory 16 16 20 Rate Blood Pressure 125/77 118/85 H 122/64 Blood Pressure [Right Brachial artery] O2 Saturation 98 94 100 06/05/22 06/05/22 06/05/22 19:05 20:45 21:36 Temperature 36.4 C L 36.6 C Heart Rate Heart Rate [ 93 96 Brachial] Respiratory 14 20 Rate Blood Pressure 146/82 H Blood Pressure 150/89 H 136/81 H [Right Brachial artery] O2 Saturation 99 96 06/05/22 06/06/22 06/06/22 23:45 05:48 07:45 Temperature 37.9 C 36.5 C 36.5 C Heart Rate Heart Rate [ 110 H 81 64 Brachial] Respiratory 18 18 18 Rate Blood Pressure Blood Pressure 130/69 112/70 113/76 [Right Brachial artery] O2 Saturation 94 94 96 Oxygen O2 Source Room air I&O (Last 24 Hrs): Intake and Output Totals x24h 06/04/22 06/05/22 06/06/22 23:59 23:59 23:59 Intake Total 1000 470 Output Total 800 500 Balance 1000 -330 -500 General: Alert, Oriented x3 HEENT: EOMI, Other (Dry mucosa, R conjunnctiva mildly red, no lid swelling, no eyelid crusting) Neck: Supple, No JVD Neuro: Alert, Non Focal Cardiovascular: Regular rate, No murmurs Respiratory: No respiratory distress, Breath sounds nml, Other Abdomen: Normal bowel sounds, Soft, No tenderness Extremities: No edema, Other ((+) skin tenting pf upper and lower extrem) - Results Results: Laboratory Results WBC 4.7 x10^3/uL (4.8-10.8) L 06/06/22 05:51 RBC 3.62 10^6/uL (4.20-5.40) L 06/06/22 05:51 Hgb 10.9 g/dL (12.0-16.0) L 06/06/22 05:51 Hct 35.3 % (37.0-47.0) L 06/06/22 05:51 MCV 97.5 fL (81.0-99.0) 06/06/22 05:51 MCH 30.1 pg (27.0-31.0) 06/06/22 05:51 MCHC 30.9 g/dL (32.0-36.0) L 06/06/22 05:51 RDW 15.8 % (12.0-15.0) H 06/06/22 05:51 Plt Count 198 10^3/uL (130-450) 06/06/22 05:51 MPV 9.5 fL (7.9-10.8) 06/06/22 05:51 Neut # (Auto) 2.6 10^3/uL (1.5-6.6) 06/06/22 05:51 Lymph # (Auto) 1.2 10^3/uL (1.5-3.5) L 06/06/22 05:51 [place] # (Auto) 0.7 10^3/uL (0.0-1.0) 06/06/22 05:51 Eos # (Auto) 0.2 10^3/uL (0.0-0.7) 06/06/22 05:51 Baso # (Auto) 0.0 10^3/uL (0.0-0.1) 06/06/22 05:51 Absolute Nucleated RBC 0.00 x10^3/uL 06/06/22 05:51 Nucleated RBC % 0.0 /100WBC 06/06/22 05:51 Sodium 134 mmol/L (135-145) L 06/06/22 05:51 Potassium 4.1 mmol/L (3.5-5.0) 06/06/22 05:51 Chloride 100 mmol/L (101-111) L 06/06/22 05:51 Carbon Dioxide 27 mmol/L (21-32) 06/06/22 05:51 Anion Gap 7.0 (6-13) 06/06/22 05:51 BUN 20 mg/dL (6-20) 06/06/22 05:51 Creatinine 0.7 mg/dL (0.4-1.0) 06/06/22 05:51 Estimated GFR (MDRD) 80 (>89) L 06/06/22 05:51 Glucose 104 mg/dL (70-100) H 06/06/22 05:51 Lactic Acid 0.8 mmol/L (0.5-2.2) 06/04/22 14:40 Calcium 8.8 mg/dL (8.5-10.3) 06/06/22 05:51 Magnesium 2.1 mg/dL (1.7-2.8) 06/06/22 05:51 Total Bilirubin 0.8 mg/dL (0.2-1.0) 06/04/22 14:40 AST 19 IU/L (10-42) 06/04/22 14:40 ALT 12 IU/L (10-60) 06/04/22 14:40 Alkaline Phosphatase 87 IU/L (42-121) 06/04/22 14:40 C-Reactive Protein 5.9 mg/dL (0-1.0) H 06/06/22 05:51 Total Protein 7.5 g/dL (6.7-8.2) 06/04/22 14:40 Albumin 3.8 g/dL (3.2-5.5) 06/04/22 14:40 Globulin 3.7 g/dL (2.1-4.2) 06/04/22 14:40 Albumin/Globulin Ratio 1.0 (1.0-2.2) 06/04/22 14:40 Lipase 28 U/L (22-51) 06/04/22 14:40 Urine Color YELLOW 06/02/22 17:25 Urine Clarity HAZY (CLEAR) 06/02/22 17:25 Urine pH 7.0 PH (5.0-7.5) 06/02/22 17:25 Ur Specific [place] <=1.005 (1.002-1.030) 06/02/22 17:25 Urine Protein NEGATIVE mg/dL (NEGATIVE) 06/02/22 17:25 Urine Glucose (UA) NEGATIVE mg/dL (NEGATIVE) 06/02/22 17:25 Urine Ketones NEGATIVE mg/dL (NEGATIVE) 06/02/22 17:25 Urine Occult Blood MODERATE (NEGATIVE) H 06/02/22 17:25 Urine Nitrite POSITIVE (NEGATIVE) H 06/02/22 17:25 Urine Bilirubin NEGATIVE (NEGATIVE) 06/02/22 17:25 Urine Urobilinogen 0.2 (NORMAL) E.U./dL (NORMAL) 06/02/22 17:25 Ur Leukocyte Esterase LARGE (NEGATIVE) H 06/02/22 17:25 Urine RBC 11-25 /HPF (0-5) H 06/02/22 17:25 Urine WBC >25 /HPF (0-5) H 06/02/22 17:25 Urine WBC Clumps PRESENT 06/02/22 17:25 Ur Squamous Epith Cells FEW Squamous (<= Few) 06/02/22 17:25 Urine Bacteria Many /HPF (None Seen) H 06/02/22 17:25 Ur Microscopic Review INDICATED 06/02/22 17:25 Urine Culture Comments INDICATED 06/02/22 17:25 SARS-CoV-2 (PCR) NOT DETECTED 06/05/22 17:53 - Procedures Procedures: Procedures INSPECTION OF UPPER INTESTINAL TRACT, ENDO (05/16/18) LOCAL EXCIS BREAST LES (04/01/15)
[2022-06-06] MEDS: METOPROLOL TARTRATE 50 MG TABLET PO SCH ×2 (08:26→21:29)
[2022-06-06] MEDS: PANTOPRAZOLE 40 MG TABLET PO SCH (08:28)
[2022-06-06] MEDS: APIXABAN 5 MG TABLET PO SCH ×2 (08:28→21:29)
[2022-06-06] MEDS: SACCHAROMYCES BOULARDII 250 MG CAPSULE PO SCH ×2 (08:28→17:05)
[2022-06-06] MEDS: LOSARTAN 50 MG TABLET PO SCH (08:29)
[2022-06-06] MEDS: SODIUM CHLORIDE FLUSH 0.9% 10 ML SYRINGE IVP SCH ×3 (08:31→21:30)
[2022-06-06] MEDS ORDERED: PANTOPRAZOLE 40 MG TABLET PO SCH (09:00)
[2022-06-06] MEDS ORDERED: ENOXAPARIN 40 MG/0.4 ML SYRINGE SUBQ SCH (09:00)
[2022-06-06] MEDS: SODIUM CHLORIDE 0.9% 1,000 ML IV SCH (09:09)
--- NOTE | 2022-06-06 09:35 | PHARMACY PROGRESS NOTE ---
- Best Possible Medication History Admit Date and Time: 06/05/22 1746 Processed by: Nursing Medication History completed: Yes As the person ultimately responsible for medication therapy, providers are able to order a medication from an existing home medication list in [facility] via the "Reconcile Routine" prior to Confirmation of that medication by accounting support specialist. Such practice is discouraged except when the physician, in their clinical judgment, deems that a medical need exists for a medication without regard to previous use.
[2022-06-06] MEDS ORDERED: guaiFENesin/DEXTROMETHORPHAN 10 ML UDC PO PRN (14:15)
[2022-06-06] MEDS ORDERED: cefTRIAXone 2 GM in SODIUM CHLORIDE 0.9% MINIBAG 100 ML IV SCH (17:00)
[2022-06-06] MEDS: cefTRIAXone 1 GM in SODIUM CHLORIDE 0.9% MINIBAG 100 ML IV SCH (17:05)
[2022-06-06] MEDS: MIRTAZAPINE 15 MG TABLET PO SCH (21:29)
[2022-06-07] MEDS: ACETAMINOPHEN 325 MG TABLET PO PRN (02:14)
[2022-06-07] MEDS: SODIUM CHLORIDE 0.9% 1,000 ML IV SCH (02:21)
[2022-06-07] MEDS: PANTOPRAZOLE 40 MG TABLET PO SCH (05:50)
[2022-06-07] MEDS: POLYMYXIN B/TRIMETH OPHTH DROPS EACHEYE SCH ×3 (05:54→21:13)
[2022-06-07 06:20] LABS: BASOPHILS % (AUTO) 0.5 %; EOSINOPHILS # (AUTO) 0.2 10^3/uL (0.0-0.7); EOSINOPHILS % (AUTO) 3.2 %; HCT - HEMATOCRIT 36.4 % (37.0-47.0); HGB - HEMOGLOBIN 11.2 g/dL (12.0-16.0); LYMPHOCYTES # (AUTO) 1.8 10^3/uL (1.5-3.5); LYMPHOCYTES % (AUTO) 31.7 %; MEAN CORPUSCULAR HEMOGLOBIN 30.1 pg (27.0-31.0); MEAN CORPUSCULAR HGB CONC 30.8 g/dL (32.0-36.0); MEAN CORPUSCULAR VOLUME 97.8 fL (81.0-99.0); MEAN PLATELET VOLUME 9.7 fL (7.9-10.8); MONOCYTES # (AUTO) 0.8 10^3/uL (0.0-1.0); MONOCYTES % (AUTO) 13.5 %; NEUTROPHILS # (AUTO) 2.9 10^3/uL (1.5-6.6); NEUTROPHILS % (AUTO) 50.9 %; PLT - PLATELET COUNT 212 10^3/uL (130-450); RED BLOOD COUNT 3.72 10^6/uL (4.20-5.40); RED CELL DISTRIBUTION WIDTH 15.5 % (12.0-15.0); WHITE BLOOD COUNT 5.6 x10^3/uL (4.8-10.8)
[2022-06-07 06:43] LABS: CREATININE 0.8 mg/dL (0.4-1.0); CRP - C-REACTIVE PROTEIN 4.9 mg/dL (0-1.0); POTASSIUM 4.3 mmol/L (3.5-5.0)
[2022-06-07] MEDS: METOPROLOL TARTRATE 50 MG TABLET PO SCH ×2 (08:44→21:14)
[2022-06-07] MEDS: LOSARTAN 50 MG TABLET PO SCH (08:44)
[2022-06-07] MEDS: SACCHAROMYCES BOULARDII 250 MG CAPSULE PO SCH ×2 (08:44→17:26)
[2022-06-07] MEDS: APIXABAN 5 MG TABLET PO SCH ×2 (08:45→21:14)
[2022-06-07] MEDS: SODIUM CHLORIDE FLUSH 0.9% 10 ML SYRINGE IVP SCH ×3 (08:45→23:34)
--- NOTE | 2022-06-07 12:36 | PROVIDER PROGRESS NOTE ---
Assessment/Plan - Problem List (1) E. coli UTI Assessment/Plan: Her U/A was abn at presentation on 06/02/22. Then on 06/03/2022 in the ED, she had a positive urine culture, growing Ecoli and she was started on oral Macrobid. Now by being on iv Ceftriaxone, this will cover her E. coli, which is leger- sensitive, and the Macrobid was stopped. (2) Conjunctivitis Conclusion/Plan: This was the initial presenting symptom with crusting, crusted shut and swollen eyelids. I suspect this may also have spread to the facial cellulitis. There is no further swelling or crusting, and less redness and pain present today Will continue with eyedrops to complete the course Qualifiers: Conjunctivitis type: acute Acute conjunctivitis type: bacterial Laterality: bilateral Qualified Code(s): H10.33 - Unspecified acute conjunctivitis, bilateral (3) Homeless family Conclusion/Plan: An APS report has been filed according to the notes since she has presented to the ED. She describes the plan is to have the son set up a "high-end" tent at friend's backyard where she and the son would live. She says she will go by wheelchair into the friend's house for toileting. PT and OT evaluations are requested for today. OT to do a cognitive evaluation to see if she has capacity to make decisions (about her discharge location). If a DCh to a tent will be deemed unsafe, will request social work to find her a safer place of residence after DCh (4) Hx of coronary artery disease Conclusion/Plan: We are continuing with her usual prescription meds for this, which is B-michelet, ARB, prn sl NTG and her anti-coagulant, since she is not on an anti-plt agent. (5) COPD (chronic obstructive pulmonary disease) Conclusion/Plan: She is not in exacerbation We will continue with her usual prescription meds for this, which is just inhaler use prn wheezing (6) History of blood clots Conclusion/Plan: Her medication list, which has been reconciled, shows she is on Eliquis 5 mg twice daily. This is not for A. fib, CAD or her stroke Hx. 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 Will continue Eliquis. This will qualify as her DVT prophylaxis. (7) Hyponatremia Conclusion/Plan: Improving. Unknown if she was getting IV fluids while she spent 3 days in the ED. On exam she has skin tenting. This is very likely hypovolemic hyponatremia therefore. IV fluids had been started because of the fever. Fluids to stop tonight after 2L infused Following BMP daily (8) Facial cellulitis Conclusion/Plan: Resolved. This was described in the ED note. It was likely the source of her bacteremia. (9) Contamination of blood culture (R79.9) Conclusion/Plan: Patient had a fever while boarding in ED and blood cultures were drawn then, these blood cultures turned positive growing gram-positive cocci. She had some face swelling reported by ED provider and thought to have facial cellulitis. Th is may have been the source of her bacteremia. Since she is homeless, and her exposures are to unknown organisms therefore she is at risk for MRSA, so Vanco was started and Macrobid changed to Rocephin. We started a probiotic. Lactic Acid level ordered to check for sepsis. Maintenance iv fluids ordered, given the fever. We michelle a repeat set of blood cultures, on the combined antibiotics, to assure there is no future bacterial growth. That blood culture result has been finalized using PCR and it is Staph epidermis which is a contaminant. We stopped the Vanco. We decrease Rocephin for UTI, not bacteremia treatment. She was ordered to get an Echocardiogram to evaluate for endocarditis, ordered for when the Early Years Teacher arrives. We cancelled this. - Current Meds Current Meds: Current Medications Generic Name Dose Route Start Last Admin Trade Name Timmyq PRN Reason Stop Dose Admin Acetaminophen 650 mg 06/05/22 17:41 06/07/22 02:14 Acetaminophen 325 Mg Tablet PO 650 mg Q4HR PRN Administration Pain 1 to 4, or Fever Apixaban 5 mg 06/03/22 21:00 06/07/22 08:45 Apixaban 5 Mg Tablet PO 5 mg BID DENILSON Administration Sodium Chloride 1,000 mls @ 60 mls/hr 06/06/22 09:00 06/07/22 02:21 Normal Saline 0.9% IV 06/07/22 18:19 60 mls/hr .[id number] DENILSON Administration Ceftriaxone Sodium 1 gm/ 100 mls @ 200 mls/hr 06/06/22 17:00 06/06/22 18:21 Sodium Chloride IV 06/09/22 00:01 Infused Q24H DENILSON Infusion Losartan Potassium 25 mg 06/03/22 13:00 06/07/22 08:44 Losartan 50 Mg Tablet PO 25 mg DAILY DENILSON Administration Metoprolol Tartrate 25 mg 06/05/22 21:00 06/07/22 08:44 Metoprolol Tartrate 50 Mg Tablet PO 25 mg BID DENILSON Administration Mirtazapine 15 mg 06/03/22 21:00 06/06/22 21:29 Mirtazapine 15 Mg Tablet PO 15 mg QPM DENILSON Administration Pantoprazole Sodium 40 mg 06/07/22 07:00 06/07/22 05:50 Pantoprazole 40 Mg Tablet PO 40 mg QDAC DENILSON Administration Polymyxin/Trimethoprim Sulfate 1 drops 06/03/22 08:00 06/07/22 05:54 Polymyxin B/Trimeth Ophth Drops EACHEYE 1 drops TID DENILSON Administration Saccharomyces Boulardii 250 mg 06/06/22 08:00 06/07/22 08:44 Saccharomyces Boulardii 250 Mg Capsule PO 250 mg BIDWM DENILSON Administration Sodium Chloride 10 ml 06/06/22 01:00 06/07/22 08:45 Sodium Chloride Flush 0.9% 10 Ml Syringe IVP 10 ml 0100,0900,1700 DENILSON Administration - Lab Result Fish Bone Diagrams: 06/07/22 06:12 06/07/22 06:12 - Additional Planning My Orders: My Active Orders 06/06/22 14:15 guaiFENesin/DEXTROMETHORPHAN [Robitussin Dm] 10 ml PO Q6HR PRN 06/06/22 17:00 cefTRIAXone [Rocephin] 1 gm Sodium Chloride 0.9% Minibag [Normal Saline 0.9% Minibag] 100 ml IV Q24H 06/07/22 Evaluate and Treat OT [OT] Routine 06/07/22 Breakfast DIET [Dysphagia - Minced and Moist] [DIET] 06/07/22 07:00 Pantoprazole [Protonix] 40 mg PO QDAC 06/07/22 09:06 Miscellaenous Nursing Order [RC] QSHIFT 06/08/22 05:00 BMP - BASIC METABOLIC PANEL [CHEM] DAILYLAB CBC - COMP BLD CT W/AUTO DIFF [HEME] DAILYLAB Subjective - Subjective Patient Reports: Resting Comfortably, No Complaints Objective Vital Signs: Vital Signs - 24 hr 06/06/22 06/06/22 06/06/22 12:55 16:18 20:26 Temperature 36.4 C L 36.5 C 37.0 C Heart Rate [ Activity] Heart Rate [ 69 55 L 62 Brachial] Heart Rate [ Sitting] Heart Rate [ Supine] Respiratory 16 20 20 Rate Blood Pressure Blood Pressure [Activity] Blood Pressure 95/56 L 118/56 L 103/50 L [Right Brachial artery] Blood Pressure [Sitting] Blood Pressure [Supine] O2 Saturation 95 95 96 06/07/22 06/07/22 06/07/22 00:30 05:06 07:25 Temperature 36.4 C L 36.9 C 36.5 C Heart Rate [ Activity] Heart Rate [ 59 L 65 56 L Brachial] Heart Rate [ Sitting] Heart Rate [ Supine] Respiratory 16 18 16 Rate Blood Pressure Blood Pressure [Activity] Blood Pressure 117/56 L 134/56 H 152/84 H [Right Brachial artery] Blood Pressure [Sitting] Blood Pressure [Supine] O2 Saturation 98 97 97 06/07/22 06/07/22 06/07/22 08:44 10:18 11:48 Temperature 36.5 C Heart Rate [ 85 Activity] Heart Rate [ 85 Brachial] Heart Rate [ 77 Sitting] Heart Rate [ 57 L Supine] Respiratory 18 Rate Blood Pressure 152/84 H Blood Pressure 126/96 H [Activity] Blood Pressure 126/96 H [Right Brachial artery] Blood Pressure 139/92 H [Sitting] Blood Pressure 132/88 H [Supine] O2 Saturation 96 Oxygen O2 Source Room air I&O (Last 24 Hrs): Intake and Output Totals x24h 06/05/22 06/06/22 06/07/22 23:59 23:59 23:59 Intake Total 470 1950 2780 Output Total 800 2050 700 Balance -330 -100 2079 General: Alert, Other (Cachectic) HEENT: Mucous membr. moist/pink, Other (Has slight facial assymetry.) Neck: Supple, No JVD Neuro: Alert, Other (Facial droop and speech is slightly slurred, and she spaks fast) Cardiovascular: Regular rate, No murmurs Respiratory: No respiratory distress, Breath sounds nml Abdomen: Normal bowel sounds, Soft Extremities: No clubbing, No edema Skin: No rashes - Results Results: Laboratory Results WBC 5.6 x10^3/uL (4.8-10.8) 06/07/22 06:12 RBC 3.72 10^6/uL (4.20-5.40) L 06/07/22 06:12 Hgb 11.2 g/dL (12.0-16.0) L 06/07/22 06:12 Hct 36.4 % (37.0-47.0) L 06/07/22 06:12 MCV 97.8 fL (81.0-99.0) 06/07/22 06:12 MCH 30.1 pg (27.0-31.0) 06/07/22 06:12 MCHC 30.8 g/dL (32.0-36.0) L 06/07/22 06:12 RDW 15.5 % (12.0-15.0) H 06/07/22 06:12 Plt Count 212 10^3/uL (130-450) 06/07/22 06:12 MPV 9.7 fL (7.9-10.8) 06/07/22 06:12 Neut # (Auto) 2.9 10^3/uL (1.5-6.6) 06/07/22 06:12 Lymph # (Auto) 1.8 10^3/uL (1.5-3.5) 06/07/22 06:12 [place] # (Auto) 0.8 10^3/uL (0.0-1.0) 06/07/22 06:12 Eos # (Auto) 0.2 10^3/uL (0.0-0.7) 06/07/22 06:12 Baso # (Auto) 0.0 10^3/uL (0.0-0.1) 06/07/22 06:12 Absolute Nucleated RBC 0.00 x10^3/uL 06/07/22 06:12 Nucleated RBC % 0.0 /100WBC 06/07/22 06:12 Sodium 139 mmol/L (135-145) 06/07/22 06:12 Potassium 4.3 mmol/L (3.5-5.0) 06/07/22 06:12 Chloride 105 mmol/L (101-111) 06/07/22 06:12 Carbon Dioxide 27 mmol/L (21-32) 06/07/22 06:12 Anion Gap 7.0 (6-13) 06/07/22 06:12 BUN 25 mg/dL (6-20) H 06/07/22 06:12 Creatinine 0.8 mg/dL (0.4-1.0) 06/07/22 06:12 Estimated GFR (MDRD) 68 (>89) L 06/07/22 06:12 Glucose 94 mg/dL (70-100) 06/07/22 06:12 Lactic Acid 1.7 mmol/L (0.5-2.2) 06/06/22 09:00 Calcium 9.0 mg/dL (8.5-10.3) 06/07/22 06:12 Magnesium 2.1 mg/dL (1.7-2.8) 06/06/22 05:51 Total Bilirubin 0.8 mg/dL (0.2-1.0) 06/04/22 14:40 AST 19 IU/L (10-42) 06/04/22 14:40 ALT 12 IU/L (10-60) 06/04/22 14:40 Alkaline Phosphatase 87 IU/L (42-121) 06/04/22 14:40 C-Reactive Protein 4.9 mg/dL (0-1.0) H 06/07/22 06:12 Total Protein 7.5 g/dL (6.7-8.2) 06/04/22 14:40 Albumin 3.8 g/dL (3.2-5.5) 06/04/22 14:40 Globulin 3.7 g/dL (2.1-4.2) 06/04/22 14:40 Albumin/Globulin Ratio 1.0 (1.0-2.2) 06/04/22 14:40 Lipase 28 U/L (22-51) 06/04/22 14:40 Urine Color YELLOW 06/02/22 17:25 Urine Clarity HAZY (CLEAR) 06/02/22 17:25 Urine pH 7.0 PH (5.0-7.5) 06/02/22 17:25 Ur Specific [place] <=1.005 (1.002-1.030) 06/02/22 17:25 Urine Protein NEGATIVE mg/dL (NEGATIVE) 06/02/22 17:25 Urine Glucose (UA) NEGATIVE mg/dL (NEGATIVE) 06/02/22 17:25 Urine Ketones NEGATIVE mg/dL (NEGATIVE) 06/02/22 17:25 Urine Occult Blood MODERATE (NEGATIVE) H 06/02/22 17:25 Urine Nitrite POSITIVE (NEGATIVE) H 06/02/22 17:25 Urine Bilirubin NEGATIVE (NEGATIVE) 06/02/22 17:25 Urine Urobilinogen 0.2 (NORMAL) E.U./dL (NORMAL) 06/02/22 17:25 Ur Leukocyte Esterase LARGE (NEGATIVE) H 06/02/22 17:25 Urine RBC 11-25 /HPF (0-5) H 06/02/22 17:25 Urine WBC >25 /HPF (0-5) H 06/02/22 17:25 Urine WBC Clumps PRESENT 06/02/22 17:25 Ur Squamous Epith Cells FEW Squamous (<= Few) 06/02/22 17:25 Urine Bacteria Many /HPF (None Seen) H 06/02/22 17:25 Ur Microscopic Review INDICATED 06/02/22 17:25 Urine Culture Comments INDICATED 06/02/22 17:25 SARS-CoV-2 (PCR) NOT DETECTED 06/05/22 17:53 - Procedures Procedures: Procedures INSPECTION OF UPPER INTESTINAL TRACT, ENDO (05/16/18) LOCAL EXCIS BREAST LES (04/01/15)
[2022-06-07] MEDS: cefTRIAXone 1 GM in SODIUM CHLORIDE 0.9% MINIBAG 100 ML IV SCH (17:26)
[2022-06-07] MEDS: MIRTAZAPINE 15 MG TABLET PO SCH (21:14)
[2022-06-08] MEDS: PANTOPRAZOLE 40 MG TABLET PO SCH (05:24)
[2022-06-08] MEDS: POLYMYXIN B/TRIMETH OPHTH DROPS EACHEYE SCH ×3 (05:24→20:45)
[2022-06-08] MEDS: ACETAMINOPHEN 325 MG TABLET PO PRN ×3 (05:24→17:06)
[2022-06-08 09:23] LABS: BASOPHILS % (AUTO) 0.4 %; EOSINOPHILS # (AUTO) 0.2 10^3/uL (0.0-0.7); EOSINOPHILS % (AUTO) 2.8 %; HCT - HEMATOCRIT 31.9 % (37.0-47.0); HGB - HEMOGLOBIN 10.1 g/dL (12.0-16.0); LYMPHOCYTES # (AUTO) 1.7 10^3/uL (1.5-3.5); LYMPHOCYTES % (AUTO) 25.5 %; MEAN CORPUSCULAR HEMOGLOBIN 30.2 pg (27.0-31.0); MEAN CORPUSCULAR HGB CONC 31.7 g/dL (32.0-36.0); MEAN CORPUSCULAR VOLUME 95.5 fL (81.0-99.0); MEAN PLATELET VOLUME 9.9 fL (7.9-10.8); MONOCYTES # (AUTO) 0.7 10^3/uL (0.0-1.0); MONOCYTES % (AUTO) 10.9 %; NEUTROPHILS % (AUTO) 60.3 %; PLT - PLATELET COUNT 221 10^3/uL (130-450); RED BLOOD COUNT 3.34 10^6/uL (4.20-5.40); RED CELL DISTRIBUTION WIDTH 15.5 % (12.0-15.0); WHITE BLOOD COUNT 6.7 x10^3/uL (4.8-10.8)
[2022-06-08] MEDS: LOSARTAN 50 MG TABLET PO SCH (09:27)
[2022-06-08] MEDS: SACCHAROMYCES BOULARDII 250 MG CAPSULE PO SCH ×2 (09:27→17:06)
[2022-06-08] MEDS: APIXABAN 5 MG TABLET PO SCH ×2 (09:27→20:46)
[2022-06-08] MEDS: METOPROLOL TARTRATE 50 MG TABLET PO SCH ×2 (09:30→20:45)
[2022-06-08] MEDS: SODIUM CHLORIDE FLUSH 0.9% 10 ML SYRINGE IVP SCH ×3 (09:31→23:55)
[2022-06-08 09:34] LABS: CREATININE 0.7 mg/dL (0.4-1.0); POTASSIUM 4.4 mmol/L (3.5-5.0)
--- NOTE | 2022-06-08 10:26 | DISCHARGE SUMMARY ---
Discharge Summary Admit Date: 06/05/22 Discharge Date: 06/08/22 Discharging Provider: Deja Hogue MD Primary Care Provider: Alyssa Robison Code Status: Attempt Resuscitation Condition at Discharge: Good Discharge Disposition: 01 Home, Self Care - HPI History of Present Illness: This is an 86-year-old white female who lives with her son and now they are both homeless for unknown period of time. 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 She was brought to the ER on 06/02/2022 by her son, who then left the ER, with c/o bilateral eyes swollen and crusted shut and diagnosed with bilateral conjunctivitis, and was put on eyes drops. Her u/a was also abnormal, but she had normal WBC and normal BMP. The son did not want to return to get her from the ER to take her home. She was boarding in the ER therefore, and social work was involved in the case. On 06/03/22, her urine culture turned positive for E. coli, and she was started on Macrobid. On 06/04/22, she had a fever of 38.7 degrees C and there was evidence of swelling of her face and she was diagnosed with facial cellulitis. Blood cultures were drawn and she had one IV Rocephin given, in addition to being on p.o. Macrobid. Today, 06/05/2022, the blood culture has turned positive for gram-positive cocci. The ED provider reached out to the Hospitalist team to have her admitted for treatment of bacteremia. She has a POLST on record from 2018 which states she wants full treatment and to be a full code. Additional history obtained from ER staff told to our [facility] staff is that the patient used to live in a long-term care facility. The son signed her out of the long-term care facility to live with him in order to get her monthly Social Security check money. They used to live in a trailer. They have been kicked out of the trailer park because of his drug abuse, specifically he used meth and fentanyl. Past Medical History Cardiovascular: reports: Hypertension, High cholesterol, Coronary artery disease, ID Respiratory: reports: Asthma, Pneumonia, Other 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, Alzhiemer's, CVA, Peripheral neuropathy Endocrine/Autoimmune: reports: None GI: reports: GERD, Colon polyps, Chronic diarrhea, Other : reports: Kidney stones, Other HEENT: reports: Other Psych: reports: Anxiety, Other Musculoskeletal: reports: Osteoarthritis, Chronic back pain Derm: reports: None MRSA Hx?: No - Past Surgical History General: reports: Cholecystectomy, Colonoscopy Ortho: reports: Arthroscopic surgery /SAFETY ADMINISTRATOR: reports: 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, Other Cardiovascular: reports: CABG, Coronary stent - ALLERGIES Allergies/Adverse Reactions: Allergies Allergy/AdvReac Type Severity Reaction Status Date / Time furosemide Allergy Intermediate Rash Verified 06/02/22 16:45 Penicillins Allergy Rash Verified 06/02/22 16:45 lisinopril AdvReac Mild Cough Verified 06/02/22 16:45 - MEDICATIONS Home Medications: Ambulatory Orders Medication Instructions Recorded Confirmed Albuterol Sulfate [Proair Hfa 2 puffs INH Q6H PRN 03/31/15 06/03/22 Inhaler] Loratadine [Allergy Relief] 10 mg PO DAILY 03/31/15 06/03/22 Metoprolol Tartrate [Lopressor] 25 mg PO BID 03/31/15 06/03/22 [place]-3 Fatty Acids/Fish Oil 1 gm PO DAILY 03/31/15 06/03/22 [[place] 3 1,000 mg Softgel] Atorvastatin Calcium 80 mg PO QPM 05/15/18 06/03/22 Nitroglycerin 0.4 mg SL Q5MIN PRN MDD 3 DOSES 05/15/18 06/03/22 Pantoprazole Sodium 40 mg PO DAILY 05/15/18 06/03/22 polyethylene glycoL 3350 [Miralax] 17 gm PO DAILY PRN #1 bottle 10/10/21 06/03/22 Nitrofurantoin [Macrobid] 100 mg PO BID #10 cap 06/02/22 Polymyxin B/Trimeth Ophth Drop 1 drops EACHEYE Q3H 7 Days #10 ml 06/02/22 [Polytrim Ophth Drops] Apixaban [Eliquis] 5 mg PO DAILY 06/03/22 06/03/22 Gabapentin [Neurontin] 300 mg PO TID 06/03/22 06/03/22 Losartan Potassium 25 mg PO DAILY 06/03/22 06/03/22 Mirtazapine 7.5 mg PO DAILY 06/03/22 06/03/22 Pantoprazole Sodium [Protonix] 40 mg PO DAILY 06/03/22 06/03/22 - LABS Result Diagrams: 06/08/22 09:05 06/08/22 09:05
--- NOTE | 2022-06-08 10:31 | Discharge Plan ---
Discharge Plan Problem Reviewed?: Yes Disposition: Home, Self Care Condition: Good Prescriptions: Nitrofurantoin [Macrobid] 100 mg PO BID #10 cap Polymyxin B/Trimeth Ophth Drop [Polytrim Ophth Drops] 1 drops EACHEYE Q3H 7 Days #10 ml Diet: Regular Activity Restrictions: Activity as Tolerated Shower Restrictions: No Driving Restrictions: Yes (no driving) Health Concerns: You are a homeless elderly female who was brought to the Emergency Room by your son for conjunctivitis and a urinary tract infection. He opted not to pick you up and you stayed with us for a few days for these problems. We did wonder at one point if the infection had spread to your blood stream but it had not. You have responded to eye medicine and antibiotics for your urinary tact infection. Your son is now able to pick you up. While you were here, we did find you to have memory loss and your score card for memory (the highest points are 30) showed you to have a 14/30. Adult protective services has been notified to open a case for you since you are felt to be at risk because of your memory loss. Plan of Treatment: 1. You will be discharged to live in a tent with your son on a friend's backyard. 2. You need 2 more days of Macrobid to complete your treatment for urinary tract infeciton. 3. Please see your primary care provider in the next 2-3 weeks for followup. Care Goals: to complete antibiotics for infection and to find indoor housing. Assessment: patient has memory loss and has tangential conversation, and I don't think she is following completely No Smoking: If you smoke, Please STOP! Call for help. Follow-up with: your,doctor in 1 week for recheck [Other]
--- NOTE | 2022-06-08 16:43 | PROVIDER PROGRESS NOTE ---
Subjective - Prog Note Date Prog Note Date: 06/08/22 Prog Note Time: 16:40 - Subjective Subjective: She is sitting up in her chair this morning eating breakfast. Edentulous. Quite talkative. Talking about living in the tent with her son. She denies any pain. She denies any nausea. Denies any shortness of breath. Current Medications - Current Medications Current Medications: Active Medications Acetaminophen (Acetaminophen 325 Mg Tablet) 650 mg PO Q4HR PRN PRN Reason: Pain 1 to 4, or Fever Last Admin: 06/08/22 09:30 Dose: 650 mg Albuterol (Albuterol Neb 2.5 Mg/3 Ml) 2.5 mg INH Q6H PRN PRN Reason: Wheezing Apixaban (Apixaban 5 Mg Tablet) 5 mg PO BID [facility] Last Admin: 06/08/22 09:27 Dose: 5 mg Guaifenesin (Guaifenesin/Dextromethorphan 10 Ml Udc) 10 ml PO Q6HR PRN PRN Reason: Cough Ceftriaxone Sodium 1 gm/ (Sodium Chloride) 100 mls @ 200 mls/hr IV Q24H [facility] Stop: 06/09/22 00:01 Last Infusion: 06/07/22 17:56 Dose: Infused Losartan Potassium (Losartan 50 Mg Tablet) 25 mg PO DAILY [facility] Last Admin: 06/08/22 09:27 Dose: 25 mg Metoprolol Tartrate (Metoprolol Tartrate 50 Mg Tablet) 25 mg PO BID [facility] Last Admin: 06/08/22 09:30 Dose: Not Given Mirtazapine (Mirtazapine 15 Mg Tablet) 15 mg PO QPM [facility] Last Admin: 06/07/22 21:14 Dose: 15 mg Nitroglycerin (Nitroglycerin Sl 0.4 Mg Tablet) 0.4 mg SL Q5MIN PRN PRN Reason: Chest Pain Ondansetron HCl (Ondansetron 4 Mg/2 Ml Vial) 4 mg IVP Q6HR PRN PRN Reason: Nausea / Vomiting Pantoprazole Sodium (Pantoprazole 40 Mg Tablet) 40 mg PO QDAC [facility] Last Admin: 06/08/22 05:24 Dose: 40 mg Polyethylene Glycol (Polyethylene Glycol 3350 17 Gm Packet) 17 gm PO DAILY PRN PRN Reason: Constipation Polymyxin/Trimethoprim Sulfate (Polymyxin B/Trimeth Ophth Drops) 1 drops EACH EYE TID [facility] Last Admin: 06/08/22 14:49 Dose: 1 drops Saccharomyces Boulardii (Saccharomyces Boulardii 250 Mg Capsule) 250 mg PO BIDWM [facility] Last Admin: 06/08/22 09:27 Dose: 250 mg Sodium Chloride (Sodium Chloride Flush 0.9% 10 Ml Syringe) 10 ml IVP PRN PRN PRN Reason: NEEDED PER PROVIDER ORDERS Sodium Chloride (Sodium Chloride Flush 0.9% 10 Ml Syringe) 10 ml IVP 0100,0900,1700 [facility] Last Admin: 06/08/22 09:31 Dose: 10 ml Albuterol Sulfate [Proair Hfa Inhaler] 2 puffs INH Q6H PRN 03/31/15 Loratadine [Allergy Relief] 10 mg PO DAILY 03/31/15 Metoprolol Tartrate [Lopressor] 25 mg PO BID 03/31/15 [place]-3 Fatty Acids/Fish Oil [[place] 3 1,000 mg Softgel] 1 gm PO DAILY 03/31/15 Atorvastatin Calcium 80 mg PO QPM 05/15/18 Nitroglycerin 0.4 mg SL Q5MIN PRN MDD 3 DOSES 05/15/18 Pantoprazole Sodium 40 mg PO DAILY 05/15/18 Apixaban [Eliquis] 5 mg PO DAILY 06/03/22 Gabapentin [Neurontin] 300 mg PO TID 06/03/22 Losartan Potassium 25 mg PO DAILY 06/03/22 Mirtazapine 7.5 mg PO DAILY 06/03/22 Pantoprazole Sodium [Protonix] 40 mg PO DAILY 06/03/22 Objective - Vital Signs/Intake & Output Reviewed Vital Signs: Yes Vital Signs: Vital Signs x48h Temp Pulse Resp BP BP Pulse Ox 06/08/22 15:30 36.6 C 72 20 145/62 H 98 06/08/22 11:56 37.0 C 91 20 140/83 H 98 06/08/22 09:30 105/61 Intake & Output: Intake & Output 06/05/22 06/06/22 06/07/22 06/08/22 23:59 23:59 23:59 23:59 Intake Total 470 1950 4855 415 Output Total 800 3790 950 1100 Balance -330 -100 390 -065 - Objective General Appearance: positive: No acute distress, Alert, Other (Thin, cachectic elderly female, no teeth, hair all over the place, but sitting comfortably in her chair eating breakfast) Eyes Bilateral: positive: PERRL ENT: positive: No signs of dehydration Neck: positive: No JVD. negative: Stiff neck Respiratory: positive: No respiratory distress. negative: Wheezes, Rales, Rhonchi Cardiovascular: positive: Regular rate & rhythm. negative: Gallop/S4, Friction rub Abdomen: positive: Non-tender, No organomegaly, Nml bowel sounds, No distention Skin: positive: Warm, Dry Extremities: positive: Full ROM, No pedal edema Neurologic/Psychiatric: positive: Oriented x3, CN's nml (2-12). negative: Motor nml (Weak, needs contact-guard assist and sometimes 1 person assist) - Lab Results Fish Bones: 06/08/22 09:05 06/08/22 09:05 Other Labs: Lab Results x24hrs 06/08/22 06/08/22 Range/Units 09:05 09:05 WBC 6.7 (4.8-10.8) x10^3/uL RBC 3.34 L (4.20-5.40) 10^6/uL Hgb 10.1 L (12.0-16.0) g/dL Hct 31.9 L (37.0-47.0) % MCV 95.5 (81.0-99.0) fL MCH 30.2 (27.0-31.0) pg MCHC 31.7 L (32.0-36.0) g/dL RDW 15.5 H (12.0-15.0) % Plt Count 221 (130-450) 10^3/uL MPV 9.9 (7.9-10.8) fL Neut # (Auto) 4.0 (1.5-6.6) 10^3/uL Lymph # (Auto) 1.7 (1.5-3.5) 10^3/uL [place] # (Auto) 0.7 (0.0-1.0) 10^3/uL Eos # (Auto) 0.2 (0.0-0.7) 10^3/uL Baso # (Auto) 0.0 (0.0-0.1) 10^3/uL Absolute Nucleated RBC 0.00 x10^3/uL Nucleated RBC % 0.0 /100WBC Sodium 139 (135-145) mmol/L Potassium 4.4 (3.5-5.0) mmol/L Chloride 105 (101-111) mmol/L Carbon Dioxide 25 (21-32) mmol/L Anion Gap 9.0 (6-13) BUN 22 H (6-20) mg/dL Creatinine 0.7 (0.4-1.0) mg/dL Estimated GFR (MDRD) 80 L (>89) Glucose 103 H (70-100) mg/dL Calcium 9.0 (8.5-10.3) mg/dL ABX Reporting Has patient been on IV antibiotics over the past 48 hours?: Yes Assessment/Plan - Problem List (1) E. coli UTI Impression: Her U/A was abn at presentation on 06/02/22. Then on 06/03/2022 in the ED, she had a positive urine culture, growing Ecoli and she was started on oral Macrobid. She was given Rocephin on June 02, then started on p.o. Macrobid. She received Macrobid on the . On the she received Rocephin again as well as Keflex. On the she received ceftriaxone and vancomycin. And on the she has been back on ceftriaxone consistently. Today's essentially 7 days of combined IV and oral antibiotic therapy. After today I will stop her antibiotics. (2) Conjunctivitis Conclusion/Plan: This was the initial presenting symptom with crusting, crusted shut and swollen eyelids. I suspect this may also have spread to the facial cellulitis. There is no further swelling or crusting, and less redness and pain As of the 09 26. Will continue with eyedrops to complete the course Qualifiers: Conjunctivitis type: acute Acute conjunctivitis type: bacterial Laterality: bilateral Qualified Code(s): H10.33 - Unspecified acute conjunctivitis, bilateral (3) Homeless family Conclusion/Plan: An APS report has been filed according to the notes since she has presented to the ED. She describes the plan is to have the son set up a "high-end" tent at friend's backyard where she and the son would live. She says she will go by wheelchair into the friend's house for toileting. Occupational Therapy saw the patient. She does participate in the occupational therapy session and completes transitional movements with slightly decreased impulsivity and improved self-care task such as eating and grooming requiring fewer multimodal cues. Her overall score was 14 out of 30. Physical therapy did not see her this morning or this afternoon because she was asleep. The last time she was seen was the . She was impulsive, requiring contact-guard assist with gait and transfers using walker and gait belt. Physical therapy really feels she needs an assisted living facility with home health physical therapy to address her deficits in gait, balance and transfers to reduce her risk of falling. Today we prepared the patient for discharge. She was to go to this "tent" in h er son's friend's backyard. The son spoke to social work to let them know that that is no longer possible. He is not being allowed to use that backyard. As such discharge is canceled. The son has agreed to placement and we are now looking for a discharge facility for her. (4) Hx of coronary artery disease Conclusion/Plan: We are continuing with her usual prescription meds for this, which is B-michelet, ARB, prn sl NTG and her anti-coagulant, since she is not on an anti-plt agent. (5) COPD (chronic obstructive pulmonary disease) Conclusion/Plan: She is not in exacerbation We will continue with her usual prescription meds for this, which is just inhaler use prn wheezing No change (6) History of blood clots Conclusion/Plan: Her medication list, which has been reconciled, shows she is on Eliquis 5 mg twice daily. This is not for A. fib, CAD or her stroke Hx. 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 Will continue Eliquis. This will qualify as her DVT prophylaxis. No change (7) Hyponatremia Resolved as of 06/07 Conclusion/Plan: Improving. Unknown if she was getting IV fluids while she spent 3 days in the ED. On exam she has skin tenting. This is very likely hypovolemic hyponatremia therefore. IV fluids had been started because of the fever. Fluids to stop 06/07 after 2L infused Following BMP daily (8) Facial cellulitis Conclusion/Plan: Resolved. This was described in the ED note. (9) Contamination of blood culture (R79.9) Conclusion/Plan: Patient had a fever while boarding in ED and blood cultures were drawn then, these blood cultures turned positive growing gram-positive cocci. She had some face swelling reported by ED provider and thought to have facial cellulitis. It was thought to be source of her bacteremia. Since she is homeless, and her exposures are to unknown organisms therefore she is at risk for MRSA, so Vanco was started and Macrobid changed to Rocephin. We started a probiotic. Lactic Acid level ordered to check for sepsis. Maintenance iv fluids ordered, given the fever. We michelle a repeat set of blood cultures, on the combined antibiotics, to assure there is no future bacterial growth. And those were negative. That blood culture result has been finalized using PCR and it is Staph epidermis which is a contaminant. We stopped the Vanco. We decrease Rocephin for UTI, and recognized she had no bacteremia and that the bacterial growth showed up 3 days after culture done. She was ordered to get an Echocardiogram to evaluate for endocarditis, ordered for when the Fiber Picker arrives. We cancelled this.
[2022-06-08] MEDS: MIRTAZAPINE 15 MG TABLET PO SCH (20:46)
[2022-06-09] MEDS: PANTOPRAZOLE 40 MG TABLET PO SCH (05:11)
[2022-06-09] MEDS: POLYMYXIN B/TRIMETH OPHTH DROPS EACHEYE SCH ×3 (05:11→20:42)
[2022-06-09] MEDS: SACCHAROMYCES BOULARDII 250 MG CAPSULE PO SCH ×2 (07:56→16:07)
[2022-06-09] MEDS: APIXABAN 5 MG TABLET PO SCH ×2 (07:56→20:43)
[2022-06-09] MEDS: ACETAMINOPHEN 325 MG TABLET PO PRN ×3 (07:56→17:17)
[2022-06-09] MEDS: LOSARTAN 50 MG TABLET PO SCH (07:58)
[2022-06-09] MEDS: SODIUM CHLORIDE FLUSH 0.9% 10 ML SYRINGE IVP SCH ×2 (07:59→16:05)
[2022-06-09] MEDS: METOPROLOL TARTRATE 50 MG TABLET PO SCH ×2 (07:59→20:44)
--- NOTE | 2022-06-09 17:06 | PROVIDER PROGRESS NOTE ---
Subjective - Prog Note Date Prog Note Date: 06/09/22 Prog Note Time: 17:04 - Subjective Pt reports feeling: Improved Subjective: She is a lively, alert elderly female. Very participatory in conversation. Quite chatty. Will sit up in bed, sit up in chair. Cooperative with nursing. Other than aches and pains she says she is doing okay. She is disappointed that she cannot be discharged to go live in a tent with her son Current Medications - Current Medications Current Medications: Active Medications Acetaminophen (Acetaminophen 325 Mg Tablet) 650 mg PO Q4HR PRN PRN Reason: Pain 1 to 4, or Fever Last Admin: 06/09/22 12:56 Dose: 650 mg Albuterol (Albuterol Neb 2.5 Mg/3 Ml) 2.5 mg INH Q6H PRN PRN Reason: Wheezing Apixaban (Apixaban 5 Mg Tablet) 5 mg PO BID [facility] Last Admin: 06/09/22 07:56 Dose: 5 mg Guaifenesin (Guaifenesin/Dextromethorphan 10 Ml Udc) 10 ml PO Q6HR PRN PRN Reason: Cough Losartan Potassium (Losartan 50 Mg Tablet) 25 mg PO DAILY [facility] Last Admin: 06/09/22 07:58 Dose: 25 mg Metoprolol Tartrate (Metoprolol Tartrate 50 Mg Tablet) 25 mg PO BID [facility] Last Admin: 06/09/22 07:59 Dose: Not Given Mirtazapine (Mirtazapine 15 Mg Tablet) 15 mg PO QPM [facility] Last Admin: 06/08/22 20:46 Dose: 15 mg Nitroglycerin (Nitroglycerin Sl 0.4 Mg Tablet) 0.4 mg SL Q5MIN PRN PRN Reason: Chest Pain Ondansetron HCl (Ondansetron 4 Mg/2 Ml Vial) 4 mg IVP Q6HR PRN PRN Reason: Nausea / Vomiting Pantoprazole Sodium (Pantoprazole 40 Mg Tablet) 40 mg PO QDAC [facility] Last Admin: 06/09/22 05:11 Dose: 40 mg Polyethylene Glycol (Polyethylene Glycol 3350 17 Gm Packet) 17 gm PO DAILY PRN PRN Reason: Constipation Polymyxin/Trimethoprim Sulfate (Polymyxin B/Trimeth Ophth Drops) 1 drops EACHEYE TID [facility] Last Admin: 06/09/22 12:57 Dose: 1 drops Saccharomyces Boulardii (Saccharomyces Boulardii 250 Mg Capsule) 250 mg PO BIDWM [facility] Last Admin: 06/09/22 16:07 Dose: 250 mg Sodium Chloride (Sodium Chloride Flush 0.9% 10 Ml Syringe) 10 ml IVP PRN PRN PRN Reason: NEEDED PER PROVIDER ORDERS Sodium Chloride (Sodium Chloride Flush 0.9% 10 Ml Syringe) 10 ml IVP 0100,0900,1700 [facility] Last Admin: 06/09/22 16:05 Dose: 10 ml Albuterol Sulfate [Proair Hfa Inhaler] 2 puffs INH Q6H PRN 03/31/15 Loratadine [Allergy Relief] 10 mg PO DAILY 03/31/15 Metoprolol Tartrate [Lopressor] 25 mg PO BID 03/31/15 [place]-3 Fatty Acids/Fish Oil [[place] 3 1,000 mg Softgel] 1 gm PO DAILY 03/31/15 Atorvastatin Calcium 80 mg PO QPM 05/15/18 Nitroglycerin 0.4 mg SL Q5MIN PRN MDD 3 DOSES 05/15/18 Pantoprazole Sodium 40 mg PO DAILY 05/15/18 Apixaban [Eliquis] 5 mg PO DAILY 06/03/22 Gabapentin [Neurontin] 300 mg PO TID 06/03/22 Losartan Potassium 25 mg PO DAILY 06/03/22 Mirtazapine 7.5 mg PO DAILY 06/03/22 Pantoprazole Sodium [Protonix] 40 mg PO DAILY 06/03/22 Objective - Vital Signs/Intake & Output Reviewed Vital Signs: Yes Vital Signs: Vital Signs x48h Temp Pulse Resp BP Pulse Ox 06/09/22 15:38 36.6 C 75 20 116/44 L 96 06/09/22 13:00 36.7 C 59 L 16 119/82 H 100 Intake & Output: Intake & Output 06/06/22 06/07/22 06/08/22 06/09/22 23:59 23:59 23:59 23:59 Intake Total 1950 4855 1513 1210 Output Total 2051 281 2350 775 Balance -100 1797 -637 435 - Objective General Appearance: positive: No acute distress, Alert, Other (Thin, alert, cheerful elderly female, cachectic) Eyes Bilateral: positive: PERRL, EOMI ENT: positive: No signs of dehydration Neck: positive: No JVD. negative: Stiff neck Respiratory: positive: No respiratory distress. 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 Poor historian. Gets people confused easily.) - Lab Results Fish Bones: 06/08/22 09:05 06/08/22 09:05 ABX Reporting Has patient been on IV antibiotics over the past 48 hours?: No Assessment/Plan - Problem List (1) E. coli UTI Impression: Her U/A was abn at presentation on 06/02/22. Then on 06/03/2022 in the ED, she had a positive urine culture, growing Ecoli and she was started on oral Macrobid. She was given Rocephin on June 02, then started on p.o. Macrobid. She received Macrobid on the . On the she received Rocephin again as well as Keflex. On the she received ceftriaxone and vancomycin. And on the she has been back on ceftriaxone consistently. On June 08 she had 7 days of combined IV and oral antibiotic therapy. As such antibiotics were stopped after completion June 08. She has been an avoidable day since June 07. (2) Conjunctivitis Conclusion/Plan: This was the initial presenting symptom with crusting, crusted shut and swollen eyelids. I suspect this may also have spread to the facial cellulitis. There is no further swelling or crusting, and less redness and pain As of the . Will continue with eyedrops to complete the course Qualifiers: Conjunctivitis type: acute Acute conjunctivitis type: bacterial Laterality: bilateral Qualified Code(s): H10.33 - Unspecified acute conjunct ivitis, bilateral (3) Homeless family Conclusion/Plan: An APS report has been filed according to the notes since she has presented to the ED. She describes the plan is to have the son set up a "high-end" tent at friend's backyard where she and the son would live. She says she will go by wheelchair into the friend's house for toileting. Occupational Therapy saw the patient. She does participate in the occupational therapy session and completes transitional movements with slightly decreased impulsivity and improved self-care task such as eating and grooming requiring fewer multimodal cues. Her overall score was 14 out of 30. Physical therapy did not see her this morning or this afternoon because she was asleep. The last time she was seen was the . She was impulsive, requiring contact-guard assist with gait and transfers using walker and gait belt. Physical therapy really feels she needs an assisted living facility with home health physical therapy to address her deficits in gait, balance and transfers to reduce her risk of falling. On June 08 we prepared the patient for discharge. She was to go to this "tent" in her son's friend's backyard. The son then spoke to social work to let them know that that is no longer possible. He is not being allowed to use that backyard. As such discharge is canceled. The son has agreed to placement and we are now looking for a discharge facility for her. Today's avoidable day 3. Social work will continue to work with son, and facilities to see where she could go live. Son is the payee on the patient's Social Security money. He may be reluctant to let her go since he uses that money to live off of. (4) Hx of coronary artery disease Conclusion/Plan: We are continuing with her usual prescription meds for this, which is B-michelet, ARB, prn sl NTG and her anti-coagulant, since she is not on an anti-plt agent. (5) COPD (chronic obstructive pulmonary disease) Conclusion/Plan: She is not in exacerbation We will continue with her usual prescription meds for this, which is just inhaler use prn wheezing No change (6) History of blood clots Conclusion/Plan: Her medication list, which has been reconciled, shows she is on Eliquis 5 mg twice daily. This is not for A. fib, CAD or her stroke Hx. 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 Will continue Eliquis. This will qualify as her DVT prophylaxis. No change (7) Hyponatremia Resolved as of 06/07 Conclusion/Plan: Improving. Unknown if she was getting IV fluids while she spent 3 days in the ED. On exam she has skin tenting. This is very likely hypovolemic hyponatremia therefore. IV fluids had been started because of the fever. Fluids stopped 06/07 after 2L infused Following BMP daily (8) Facial cellulitis Conclusion/Plan: Resolved. This was described in the ED note. (9) Contamination of blood culture (R79.9) Conclusion/Plan: Patient had a fever while boarding in ED and blood cultures were drawn then, these blood cultures turned positive growing gram-positive cocci. She had some face swelling reported by ED provider and thought to have facial cellulitis. It was thought to be source of her bacteremia. Since she is homeless, and her exposures are to unknown organisms therefore she is at risk for MRSA, so Vanco was started and Macrobid changed to Rocephin. We started a probiotic. Lactic Acid level ordered to check for sepsis. Maintenance iv fluids ordered, given the fever. We michelle a repeat set of blood cultures, on the combined antibiotics, to assure there is no future bacterial growth. And those were negative. That blood culture result has been finalized using PCR and it is Staph epidermis which is a contaminant. We stopped the Vanco. We decrease Rocephin for UTI, and recognized she had no bacteremia and that the bacterial growth showed up 3 days after culture done. She was ordered to get an Echocardiogram to evaluate for endocarditis, ordered for when the Process Controls Technician arrives. We cancelled this.
[2022-06-09] MEDS: MIRTAZAPINE 15 MG TABLET PO SCH (20:43)
[2022-06-10] MEDS: SODIUM CHLORIDE FLUSH 0.9% 10 ML SYRINGE IVP SCH ×4 (01:12→23:45)
[2022-06-10] MEDS: POLYMYXIN B/TRIMETH OPHTH DROPS EACHEYE SCH (06:00)
[2022-06-10] MEDS: PANTOPRAZOLE 40 MG TABLET PO SCH (06:00)
[2022-06-10] MEDS: LOSARTAN 50 MG TABLET PO SCH (07:39)
[2022-06-10] MEDS: SACCHAROMYCES BOULARDII 250 MG CAPSULE PO SCH ×2 (07:39→16:52)
[2022-06-10] MEDS: METOPROLOL TARTRATE 50 MG TABLET PO SCH ×2 (07:39→20:54)
[2022-06-10] MEDS: APIXABAN 5 MG TABLET PO SCH ×2 (07:40→20:54)
[2022-06-10] MEDS: ACETAMINOPHEN 325 MG TABLET PO PRN (12:06)
--- NOTE | 2022-06-10 12:51 | PROVIDER PROGRESS NOTE ---
Subjective - Prog Note Date Prog Note Date: 06/10/22 Prog Note Time: 12:49 - Subjective Subjective: Gavi, chatty, elderly female. No new complaints. She is getting up and walking in the room. Current Medications - Current Medications Current Medications: Active Medications Acetaminophen (Acetaminophen 325 Mg Tablet) 650 mg PO Q4HR PRN PRN Reason: Pain 1 to 4, or Fever Last Admin: 06/10/22 12:06 Dose: 650 mg Albuterol (Albuterol Neb 2.5 Mg/3 Ml) 2.5 mg INH Q6H PRN PRN Reason: Wheezing Apixaban (Apixaban 5 Mg Tablet) 5 mg PO BID [facility] Last Admin: 06/10/22 07:40 Dose: 5 mg Guaifenesin (Guaifenesin/Dextromethorphan 10 Ml Udc) 10 ml PO Q6HR PRN PRN Reason: Cough Losartan Potassium (Losartan 50 Mg Tablet) 25 mg PO DAILY [facility] Last Admin: 06/10/22 07:39 Dose: 25 mg Metoprolol Tartrate (Metoprolol Tartrate 50 Mg Tablet) 25 mg PO BID [facility] Last Admin: 06/10/22 07:39 Dose: 25 mg Mirtazapine (Mirtazapine 15 Mg Tablet) 15 mg PO QPM [facility] Last Admin: 06/09/22 20:43 Dose: 15 mg Nitroglycerin (Nitroglycerin Sl 0.4 Mg Tablet) 0.4 mg SL Q5MIN PRN PRN Reason: Chest Pain Ondansetron HCl (Ondansetron 4 Mg/2 Ml Vial) 4 mg IVP Q6HR PRN PRN Reason: Nausea / Vomiting Pantoprazole Sodium (Pantoprazole 40 Mg Tablet) 40 mg PO QDAC [facility] Last Admin: 06/10/22 06:00 Dose: 40 mg Polyethylene Glycol (Polyethylene Glycol 3350 17 Gm Packet) 17 gm PO DAILY PRN PRN Reason: Constipation Polymyxin/Trimethoprim Sulfate (Polymyxin B/Trimeth Ophth Drops) 1 drops EACHEYE TID [facility] Last Admin: 06/10/22 06:00 Dose: 1 drops Saccharomyces Boulardii (Saccharomyces Boulardii 250 Mg Capsule) 250 mg PO BIDWM [facility] Last Admin: 06/10/22 07:39 Dose: 250 mg Sodium Chloride (Sodium Chloride Flush 0.9% 10 Ml Syringe) 10 ml IVP PRN PRN PRN Reason: NEEDED PER PROVIDER ORDERS Sodium Chloride (Sodium Chloride Flush 0.9% 10 Ml Syringe) 10 ml IVP 0100,0900,1700 [facility] Last Admin: 06/10/22 07:40 Dose: 10 ml Albuterol Sulfate [Proair Hfa Inhaler] 2 puffs INH Q6H PRN 03/31/15 Loratadine [Allergy Relief] 10 mg PO DAILY 03/31/15 Metoprolol Tartrate [Lopressor] 25 mg PO BID 03/31/15 [place]-3 Fatty Acids/Fish Oil [[place] 3 1,000 mg Softgel] 1 gm PO DAILY 03/31/15 Atorvastatin Calcium 80 mg PO QPM 05/15/18 Nitroglycerin 0.4 mg SL Q5MIN PRN MDD 3 DOSES 05/15/18 Pantoprazole Sodium 40 mg PO DAILY 05/15/18 Apixaban [Eliquis] 5 mg PO DAILY 06/03/22 Gabapentin [Neurontin] 300 mg PO TID 06/03/22 Losartan Potassium 25 mg PO DAILY 06/03/22 Mirtazapine 7.5 mg PO DAILY 06/03/22 Pantoprazole Sodium [Protonix] 40 mg PO DAILY 06/03/22 Objective - Vital Signs/Intake & Output Reviewed Vital Signs: Yes Vital Signs: Vital Signs x48h Temp Pulse Resp BP BP Pulse Ox 06/10/22 07:39 148/63 H 06/10/22 07:32 36.6 C 65 18 148/63 H 97 Intake & Output: Intake & Output 06/07/22 06/08/22 06/09/22 06/10/22 23:59 23:59 23:59 23:59 Intake Total 4855 1513 2177 1020 Output Total 950 2350 1775 1250 Balance 3905 -837 402 -230 - Objective General Appearance: positive: No acute distress, Alert, Other (5 foot 7 inches tall, 66.5 kg) Eyes Bilateral: positive: PERRL, EOMI ENT: positive: No signs of dehydration Neck: positive: No JVD Respiratory: positive: No respiratory distress. negative: Wheezes, Rales, Rhonchi Cardiovascular: positive: Regular rate & rhythm Abdomen: positive: Non-tender, No organomegaly, Nml bowel sounds, No distention, Other (Last bowel movement June 08. She is occasionally incontinent of urine) Skin: positive: Warm, Dry Neurologic/Psychiatric: positive: CN's nml (2-12), Motor nml, Disoriented to time, Other (Cognitively impaired elderly female. Mini-Mental status exam was 14 out of 30) - Lab Results Fish Bones: 06/08/22 09:05 06/08/22 09:05 ABX Reporting Has patient been on IV antibiotics over the past 48 hours?: No Assessment/Plan - Problem List (1) E. coli UTI Impression: Her U/A was abn at presentation on 06/02/22. Then on 06/03/2022 in the ED, she had a positive urine culture, growing Ecoli and she was started on oral Macrobid. She was given Rocephin on June 02, then started on p.o. Macrobid. She received Macrobid on the . On the she received Rocephin again as well as Keflex. On the she received ceftriaxone and vancomycin. And on the she has been back on ceftriaxone consistently. On June 08 she had 7 days of combined IV and oral antibiotic therapy. As such antibiotics were stopped after completion June 08. She has been an avoidable day since June 07. No change as of today. (2) Conjunctivitis Resolved Conclusion/Plan: This was the initial presenting symptom with crusting, crusted shut and swollen eyelids. I suspect this may also have spread to the facial cellulitis. There is no further swelling or crusting, and less redness and pain As of the . Stop eyedrops today Qualifiers: Conjunctivitis type: acute Acute conjunctivitis type: bacterial Laterality: bilateral Qualified Code(s): H10.33 - Unspecified acute conjunctivitis, bilateral (3) Homeless family Conclusion/Plan: An APS report has been filed according to the notes since she has presented to the ED. She describes the plan is to have the son set up a "high-end" tent at friend's backyard where she and the son would live. She says she will go by wheelchair into the friend's house for toileting. Occupational Therapy saw the patient. She does participate in the occupational therapy session and completes transitional movements with slightly decreased impulsivity and improved self-care task such as eating and grooming requiring fewer multimodal cues. Her overall score was 14 out of 30. Physical therapy did not see her this morning or this afternoon because she was asleep. The last time she was seen was the . She was impulsive, requiring contact-guard assist with gait and transfers using walker and gait belt. Physical therapy really feels she needs an assisted living facility with home health physical therapy to address her deficits in gait, balance and transfers to reduce her risk of falling. On June 08 we prepared the patient for discharge. She was to go to this "tent" in her son's friend's backyard. The son then spoke to social work to let them know that that is no longer possible. He is not being allowed to use that backyard. As such discharge is canceled. The son has agreed to placement and we are now looking for a discharge facility for her. Today's avoidable day 4. Social work will continue to work with son, and facilities to see where she could go live. Son is the payee on the patient's Social Security money. He may be reluctant to let her go since he uses that mon ey to live off of. (4) Hx of coronary artery disease Conclusion/Plan: We are continuing with her usual prescription meds for this, which is B-michelet, ARB, prn sl NTG and her anti-coagulant, since she is not on an anti-plt agent. (5) COPD (chronic obstructive pulmonary disease) Conclusion/Plan: She is not in exacerbation We will continue with her usual prescription meds for this, which is just inhaler use prn wheezing No change (6) History of blood clots Conclusion/Plan: Her medication list, which has been reconciled, shows she is on Eliquis 5 mg twice daily. This is not for A. fib, CAD or her stroke Hx. 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 Will continue Eliquis. This will qualify as her DVT prophylaxis. No change (7) Hyponatremia Resolved as of 06/07 Conclusion/Plan: Improving. Unknown if she was getting IV fluids while she spent 3 days in the ED. On exam she had skin tenting. This is very likely hypovolemic hyponatremia therefore. IV fluids had been started because of the fever. Fluids stopped 06/07 after 2L infused Following BMP daily (8) Facial cellulitis Conclusion/Plan: Resolved. This was described in the ED note. (9) Contamination of blood culture (R79.9) Conclusion/Plan: Patient had a fever while boarding in ED and blood cultures were drawn then, these blood cultures turned positive growing gram-positive cocci. She had some face swelling reported by ED provider and thought to have facial cellulitis. It was thought to be source of her bacteremia. Since she is homeless, and her exposures are to unknown organisms therefore she is at risk for MRSA, so Vanco was started and Macrobid changed to Rocephin. We started a probiotic. Lactic Acid level ordered to check for sepsis. Maintenance iv fluids ordered, given the fever. We michelle a repeat set of blood cultures, on the combined antibiotics, to assure there is no future bacterial growth. And those were negative. That blood culture result has been finalized using PCR and it is Staph epidermis which is a contaminant. We stopped the Vanco. We decrease Rocephin for UTI, and recognized she had no bacteremia and that the bacterial growth showed up 3 days after culture done. Today, she is growing out staph epidermidis from a June 04 blood culture. Again we think this is contaminant. She was ordered to get an Echocardiogram to evaluate for endocarditis, ordered for when the Repairer Recreational Vehicle arrives. We cancelled this.
[2022-06-10] MEDS: MIRTAZAPINE 15 MG TABLET PO SCH (20:58)
[2022-06-11] MEDS: PANTOPRAZOLE 40 MG TABLET PO SCH (06:09)
[2022-06-11] MEDS: APIXABAN 5 MG TABLET PO SCH ×2 (08:11→20:30)
[2022-06-11] MEDS: SODIUM CHLORIDE FLUSH 0.9% 10 ML SYRINGE IVP SCH ×2 (08:11→16:52)
[2022-06-11] MEDS: METOPROLOL TARTRATE 50 MG TABLET PO SCH ×2 (08:11→20:30)
[2022-06-11] MEDS: LOSARTAN 50 MG TABLET PO SCH (08:12)
[2022-06-11] MEDS: SACCHAROMYCES BOULARDII 250 MG CAPSULE PO SCH ×2 (08:12→16:52)
--- NOTE | 2022-06-11 12:33 | PROVIDER PROGRESS NOTE ---
Progress Note June 11, 2022 10 AM Patient is alert, oriented to the fact she is in the hospital. Very insistent that she would like to go live in the tent and a force with her son. She states that he called her yesterday and even though he cannot put his tent at their "friend's house", [place] and [place] would like to go live with him there. She stoutly maintains that he can take good care of her there even though there is no running water, or heat as we get into winter. Active Medications Acetaminophen (Acetaminophen 325 Mg Tablet) 650 mg PO Q4HR PRN PRN Reason: Pain 1 to 4, or Fever Last Admin: 06/10/22 12:06 Dose: 650 mg Albuterol (Albuterol Neb 2.5 Mg/3 Ml) 2.5 mg INH Q6H PRN PRN Reason: Wheezing Apixaban (Apixaban 5 Mg Tablet) 5 mg PO BID [facility] Last Admin: 06/11/22 08:11 Dose: 5 mg Guaifenesin (Guaifenesin/Dextromethorphan 10 Ml Udc) 10 ml PO Q6HR PRN PRN Reason: Cough Losartan Potassium (Losartan 50 Mg Tablet) 25 mg PO DAILY [facility] Last Admin: 06/11/22 08:12 Dose: 25 mg Metoprolol Tartrate (Metoprolol Tartrate 50 Mg Tablet) 25 mg PO BID [facility] Last Admin: 06/11/22 08:11 Dose: 25 mg Mirtazapine (Mirtazapine 15 Mg Tablet) 15 mg PO QPM [facility] Last Admin: 06/10/22 20:58 Dose: 15 mg Nitroglycerin (Nitroglycerin Sl 0.4 Mg Tablet) 0.4 mg SL Q5MIN PRN PRN Reason: Chest Pain Ondansetron HCl (Ondansetron 4 Mg/2 Ml Vial) 4 mg IVP Q6HR PRN PRN Reason: Nausea / Vomiting Pantoprazole Sodium (Pantoprazole 40 Mg Tablet) 40 mg PO QDAC [facility] Last Admin: 06/11/22 06:09 Dose: 40 mg Polyethylene Glycol (Polyethylene Glycol 3350 17 Gm Packet) 17 gm PO DAILY PRN PRN Reason: Constipation Saccharomyces Boulardii (Saccharomyces Boulardii 250 Mg Capsule) 250 mg PO BIDWM [facility] Last Admin: 06/11/22 08:12 Dose: 250 mg Sodium Chloride (Sodium Chloride Flush 0.9% 10 Ml Syringe) 10 ml IVP PRN PRN PRN Reason: NEEDED PER PROVIDER ORDERS Sodium Chloride (Sodium Chloride Flush 0.9% 10 Ml Syringe) 10 ml IVP 0100,0900,1700 [facility] Last Admin: 06/11/22 08:11 Dose: 10 ml Albuterol Sulfate [Proair Hfa Inhaler] 2 puffs INH Q6H PRN 03/31/15 Loratadine [Allergy Relief] 10 mg PO DAILY 03/31/15 Metoprolol Tartrate [Lopressor] 25 mg PO BID 03/31/15 [place]-3 Fatty Acids/Fish Oil [[place] 3 1,000 mg Softgel] 1 gm PO DAILY 03/31/15 Nitroglycerin 0.4 mg SL Q5MIN PRN MDD 3 DOSES 05/15/18 Pantoprazole Sodium 40 mg PO DAILY 05/15/18 Apixaban [Eliquis] 5 mg PO BID 06/03/22 Gabapentin [Neurontin] 300 mg PO TID 06/03/22 Losartan Potassium 25 mg PO DAILY 06/03/22 Mirtazapine 7.5 mg PO DAILY 06/03/22 Pantoprazole Sodium [Protonix] 40 mg PO DAILY 06/03/22 Atorvastatin Calcium 40 mg PO QPM 06/11/22 Temperature is 36.6. Heart rate 65. Blood pressure 139/79. 93% on room air. She is a cachectic appearing elderly female at 5 foot 7 inches tall, 65.5 inches. Short choppy hair. Partially edentulous. Shotty neck adenopathy but supple. No bruits or JVD Lungs are clear to auscultation and percussion. Rib cage is visible due to her cachexia and muscle wasting Regular rate and rhythm Abdomen soft, nontender, normal bowel sounds last bowel movement was this morning and another one was yesterday. Extremities are without edema. Diffuse muscle wasting. Neurologically she is forgetful, but knows that she is in the hospital, why she is here. Her interpretation is that her son could not take care of her temporarily but now that she is better she would like to go back to them. She is incontinent of urine and uses a pure wick but also sometimes gets up to walk to the bathroom. No focal deficits. Needs a standby assist with a gait belt and a walker. Last labs were June 08 and stable. Assessment: This is an elderly female who was brought in by EMS to our emergency room June 02. She is homeless and living with her son and their dogs on the street. She was sleeping on a park bench at night. She was brought in because of bilateral eye irritation. She was treated for conjunctivitis and then hydrated and was to be sent back to her son's care. However he did not want to pick her up. Her urine then grew E. coli a day later. Face was felt to have cellulitis while in the ER. She had a temperature 38.7. As such she was admitted for IV ceftriaxone and vancomycin. Urine grew out E. coli on June 02. Blood cultures when she had a temperature spike grew out staph epidermidis. However that staph grew out on June 07 from the June 04 blood cultures. Repeat blood cultures June 06 were negative. We do feel that those staph cultures are contaminant. She has been avoidable day since June 07. Problems resolved: E. coli UTI Conjunctivitis History of coronary artery disease COPD without exacerbation History of DVTs Hyponatremia Facial cellulitis we are awaiting placement. Son was initially to take her back home to attend but that plan has fallen through and social work will continue to find placement for this valeria female
[2022-06-11] MEDS: MIRTAZAPINE 15 MG TABLET PO SCH (20:29)
[2022-06-11] MEDS: ACETAMINOPHEN 325 MG TABLET PO PRN (20:29)
[2022-06-12] MEDS: SODIUM CHLORIDE FLUSH 0.9% 10 ML SYRINGE IVP SCH ×4 (00:40→23:50)
[2022-06-12] MEDS: ACETAMINOPHEN 325 MG TABLET PO PRN ×4 (05:32→20:08)
[2022-06-12] MEDS: PANTOPRAZOLE 40 MG TABLET PO SCH (05:33)
[2022-06-12] MEDS: LOSARTAN 50 MG TABLET PO SCH (10:46)
[2022-06-12] MEDS: SACCHAROMYCES BOULARDII 250 MG CAPSULE PO SCH ×2 (10:46→15:50)
[2022-06-12] MEDS: METOPROLOL TARTRATE 50 MG TABLET PO SCH ×2 (10:47→20:07)
[2022-06-12] MEDS: APIXABAN 5 MG TABLET PO SCH ×2 (10:47→20:09)
[2022-06-12] MEDS: CARBOXYMETHYLCELLULOSE OPHTH DROPS EACHEYE PRN (15:54)
--- NOTE | 2022-06-12 16:21 | PROVIDER PROGRESS NOTE ---
Progress Note June 12, 2022 4:20 PM There have been no new problems. Patient is stable. An avoidable day status as we await placement. Medications unchanged Temperature is 36.2. Heart rate 87. Blood pressure 103/72. Respirations 18. 98% on room air. An alert oriented elderly female, slightly cachectic. But cheerful, cooperative. Neck is supple Lungs are clear Regular rate and rhythm Abdomen soft nontender with normal bowel sounds Assessment: This is an elderly female who was brought in by EMS to our emergency room June 02. She is homeless and living with her son and their dogs on the street. She was sleeping on a park bench at night. She was brought in because of bilateral eye irritation. She was treated for conjunctivitis and then hydrated and was to be sent back to her son's care. However he did not want to pick her up. Her urine then grew E. coli a day later. Face was felt to have cellulitis while in the ER. She had a temperature 38.7. As such she was admitted for IV ceftriaxone and vancomycin. Urine grew out E. coli on June 02. Blood cultures when she had a temperature spike grew out staph epidermidis. However that staph grew out on June 07 from the June 04 blood cultures. Repeat blood cultures June 06 were negative. We do feel that those staph cultures are contaminant.She is completed treatment for her UTI. She has been avoidable day since June 07. Problems resolved: E. coli UTI Conjunctivitis History of coronary artery disease COPD without exacerbation History of DVTs Hyponatremia Facial cellulitis we are awaiting placement. Son was initially to take her back home to attend but that plan has fallen through and social work will continue to find placement for this valeria female
[2022-06-12] MEDS: MIRTAZAPINE 15 MG TABLET PO SCH (20:11)
[2022-06-12] MEDS: PHENAZOPYRIDINE 100 MG TABLET PO SCH (21:09)
[2022-06-13] MEDS: PHENAZOPYRIDINE 100 MG TABLET PO SCH ×3 (05:12→21:05)
[2022-06-13] MEDS: ACETAMINOPHEN 325 MG TABLET PO PRN ×3 (05:12→23:29)
[2022-06-13] MEDS: PANTOPRAZOLE 40 MG TABLET PO SCH (05:12)
--- NOTE | 2022-06-13 07:43 | PROVIDER PROGRESS NOTE ---
Progress Note June 13, 2022 7:37 AM No new overnight problems. Continues to be avoidable status as we await placement. Medications have been unchanged Active Medications Acetaminophen (Acetaminophen 325 Mg Tablet) 650 mg PO Q4HR PRN PRN Reason: Pain 1 to 4, or Fever Last Admin: 06/13/22 05:12 Dose: 650 mg Apixaban (Apixaban 5 Mg Tablet) 5 mg PO BID [facility] Last Admin: 06/12/22 20:09 Dose: 5 mg Carboxymethylcellulose (Carboxymethylcellulose Ophth Drops) 1 drops EACHEYE PRN PRN PRN Reason: Dry Eye Last Admin: 06/12/22 15:54 Dose: 1 drops Guaifenesin (Guaifenesin/Dextromethorphan 10 Ml Udc) 10 ml PO Q6HR PRN PRN Reason: Cough Losartan Potassium (Losartan 50 Mg Tablet) 25 mg PO DAILY [facility] Last Admin: 06/12/22 10:46 Dose: 25 mg Metoprolol Tartrate (Metoprolol Tartrate 50 Mg Tablet) 25 mg PO BID [facility] Last Admin: 06/12/22 20:07 Dose: Not Given Mirtazapine (Mirtazapine 15 Mg Tablet) 15 mg PO QPM [facility] Last Admin: 06/12/22 20:11 Dose: 15 mg Nitroglycerin (Nitroglycerin Sl 0.4 Mg Tablet) 0.4 mg SL Q5MIN PRN PRN Reason: Chest Pain Ondansetron HCl (Ondansetron 4 Mg/2 Ml Vial) 4 mg IVP Q6HR PRN PRN Reason: Nausea / Vomiting Pantoprazole Sodium (Pantoprazole 40 Mg Tablet) 40 mg PO QDAC [facility] Last Admin: 06/13/22 05:12 Dose: 40 mg Phenazopyridine HCl (Phenazopyridine 100 Mg Tablet) 100 mg PO TID [facility] Last Admin: 06/13/22 05:12 Dose: 100 mg Polyethylene Glycol (Polyethylene Glycol 3350 17 Gm Packet) 17 gm PO DAILY PRN PRN Reason: Constipation Saccharomyces Boulardii (Saccharomyces Boulardii 250 Mg Capsule) 250 mg PO BIDWM [facility] Last Admin: 06/12/22 15:50 Dose: 250 mg Sodium Chloride (Sodium Chloride Flush 0.9% 10 Ml Syringe) 10 ml IVP PRN PRN PRN Reason: NEEDED PER PROVIDER ORDERS Sodium Chloride (Sodium Chloride Flush 0.9% 10 Ml Syringe) 10 ml IVP 0100,0900,1700 [facility] Last Admin: 06/12/22 23:50 Dose: 10 ml Home Meds: Albuterol Sulfate [Proair Hfa Inhaler] 2 puffs INH Q6H PRN 03/31/15 Loratadine [Allergy Relief] 10 mg PO DAILY 03/31/15 Metoprolol Tartrate [Lopressor] 25 mg PO BID 03/31/15 Putnam-3 Fatty Acids/Fish Oil [[place] 3 1,000 mg Softgel] 1 gm PO DAILY 03/31/15 Nitroglycerin 0.4 mg SL Q5MIN PRN MDD 3 DOSES 05/15/18 Pantoprazole Sodium 40 mg PO DAILY 05/15/18 Apixaban [Eliquis] 5 mg PO BID 06/03/22 Gabapentin [Neurontin] 300 mg PO TID 06/03/22 Losartan Potassium 25 mg PO DAILY 06/03/22 Mirtazapine 7.5 mg PO DAILY 06/03/22 Pantoprazole Sodium [Protonix] 40 mg PO DAILY 06/03/22 Atorvastatin Calcium 40 mg PO QPM 06/11/22 Exam: Temperature is 36.4 heart rate is 53 blood pressure 117/96 respiration 16 , 99% on room air 5 feet 7 inches tall 66 kg Alert, forgetful but oriented to person and place elderly female Neck is supple, no bruits Lungs are clear to auscultation and percussion. She has no increased respiratory effort with speaking or sitting up or eating Regular rate and rhythm Abdomen soft, nontender, normal bowel sounds Feet without edema Neurologically the patient is ambulating with a gait belt, needs standby assist, incontinent, was complaining of dysuria yesterda Assessment: This is an elderly female who was brought in by EMS to our emergency room June 02. She is homeless and living with her son and their dogs on the street. She was sleeping on a park bench at night. She was brought in because of bilateral eye irritation. She was treated for conjunctivitis and then hydrated and was to be sent back to her son's care. However he did not want to pick her up. Her urine then grew E. coli a day later. Face was felt to have cellulitis while in the ER. She had a temperature 38.7. As such she was admitted for IV ceftriaxone and vancomycin. Urine grew out E. coli on June 02. Blood cultures when she had a temperature spike grew out staph epidermidis. However that staph grew out on June 07 from the June 04 blood cultures. Repeat blood cultures June 06 were negative. We do feel that those staph cultures are contaminant.She is completed treatment for her UTI. She has been avoidable day since June 07. Problems resolved: E. coli UTI Conjunctivitis History of coronary artery disease COPD without exacerbation History of DVTs Hyponatremia Facial cellulitis we are awaiting placement. Son was initially to take her back home to attend but that plan has fallen through and social work will continue to find placement for this valeria female
[2022-06-13] MEDS: METOPROLOL TARTRATE 50 MG TABLET PO SCH ×2 (08:22→21:05)
[2022-06-13] MEDS: APIXABAN 5 MG TABLET PO SCH ×2 (08:23→21:05)
[2022-06-13] MEDS: LOSARTAN 50 MG TABLET PO SCH (08:23)
[2022-06-13] MEDS: SACCHAROMYCES BOULARDII 250 MG CAPSULE PO SCH ×2 (08:23→16:55)
[2022-06-13] MEDS: SODIUM CHLORIDE FLUSH 0.9% 10 ML SYRINGE IVP SCH ×2 (08:24→16:03)
[2022-06-13] MEDS: CARBOXYMETHYLCELLULOSE OPHTH DROPS EACHEYE PRN (15:59)
[2022-06-13] MEDS: LIDOCAINE PATCH 5% TOP PRN (16:55)
[2022-06-13] MEDS: MIRTAZAPINE 15 MG TABLET PO SCH (21:05)
[2022-06-14] MEDS: SODIUM CHLORIDE FLUSH 0.9% 10 ML SYRINGE IVP SCH ×3 (03:22→16:52)
[2022-06-14] MEDS: ACETAMINOPHEN 325 MG TABLET PO PRN ×2 (03:55→21:40)
[2022-06-14] MEDS: PHENAZOPYRIDINE 100 MG TABLET PO SCH ×3 (05:18→21:40)
[2022-06-14] MEDS: PANTOPRAZOLE 40 MG TABLET PO SCH (05:18)
[2022-06-14] MEDS: METOPROLOL TARTRATE 50 MG TABLET PO SCH (08:17)
[2022-06-14] MEDS: LOSARTAN 50 MG TABLET PO SCH (08:19)
[2022-06-14] MEDS: SACCHAROMYCES BOULARDII 250 MG CAPSULE PO SCH ×2 (08:19→16:52)
[2022-06-14] MEDS: APIXABAN 5 MG TABLET PO SCH ×2 (08:19→21:39)
--- NOTE | 2022-06-14 12:16 | PROVIDER PROGRESS NOTE ---
Progress Note June 14, 2022 12:12 PM No changes or events for this valeria lady. Her main problem yesterday was complaining of gum pain and it hurts to chew even the shredded chicken that she received. So we started her on Magic mouthwash. She also complained of neck pain. Neck pain has been present and constant for her for many years she says. She usually uses a "patch" [id number] that her son gives her. She does not know the name of the patch. She says it does not burn or cause heat. But it causes numbness. Other than this continued problem for her, there is nothing that she wanted me to address. She continues to reiterate that she wants to go live in a campground with her son. Active Medications Acetaminophen (Acetaminophen 325 Mg Tablet) 650 mg PO Q4HR PRN PRN Reason: Pain 1 to 4, or Fever Last Admin: 06/14/22 03:55 Dose: 650 mg Apixaban (Apixaban 5 Mg Tablet) 5 mg PO BID [facility] Last Admin: 06/14/22 08:19 Dose: 5 mg Carboxymethylcellulose (Carboxymethylcellulose Ophth Drops) 1 drops EACHEYE PRN PRN PRN Reason: Dry Eye Last Admin: 06/13/22 15:59 Dose: 1 drops Guaifenesin (Guaifenesin/Dextromethorphan 10 Ml Udc) 10 ml PO Q6HR PRN PRN Reason: Cough Lidocaine (Lidocaine Patch 5%) 1 patch TOP DAILY PRN PRN Reason: PAIN Last Admin: 06/13/22 16:55 Dose: 1 patch Losartan Potassium (Losartan 50 Mg Tablet) 25 mg PO DAILY [facility] Last Admin: 06/14/22 08:19 Dose: 25 mg Metoprolol Tartrate (Metoprolol Tartrate 50 Mg Tablet) 25 mg PO BID [facility] Last Admin: 06/14/22 08:17 Dose: 25 mg Mirtazapine (Mirtazapine 15 Mg Tablet) 15 mg PO QPM [facility] Last Admin: 06/13/22 21:05 Dose: 15 mg Nitroglycerin (Nitroglycerin Sl 0.4 Mg Tablet) 0.4 mg SL Q5MIN PRN PRN Reason: Chest Pain Ondansetron HCl (Ondansetron 4 Mg/2 Ml Vial) 4 mg IVP Q6HR PRN PRN Reason: Nausea / Vomiting Pantoprazole Sodium (Pantoprazole 40 Mg Tablet) 40 mg PO QDAC [facility] Last Admin: 06/14/22 05:18 Dose: 40 mg Phenazopyridine HCl (Phenazopyridine 100 Mg Tablet) 100 mg PO TID [facility] Last Admin: 06/14/22 05:18 Dose: 100 mg Polyethylene Glycol (Polyethylene Glycol 3350 17 Gm Packet) 17 gm PO DAILY PRN PRN Reason: Constipation Saccharomyces Boulardii (Saccharomyces Boulardii 250 Mg Capsule) 250 mg PO BIDWM [facility] Last Admin: 06/14/22 08:19 Dose: 250 mg Sodium Chloride (Sodium Chloride Flush 0.9% 10 Ml Syringe) 10 ml IVP PRN PRN PRN Reason: NEEDED PER PROVIDER ORDERS Sodium Chloride (Sodium Chloride Flush 0.9% 10 Ml Syringe) 10 ml IVP 0100,0900,1700 [facility] Last Admin: 06/14/22 08:19 Dose: 10 ml Albuterol Sulfate [Proair Hfa Inhaler] 2 puffs INH Q6H PRN 03/31/15 Loratadine [Allergy Relief] 10 mg PO DAILY 03/31/15 Metoprolol Tartrate [Lopressor] 25 mg PO BID 03/31/15 Philipp-3 Fatty Acids/Fish Oil [[place]ilipp 3 1,000 mg Softgel] 1 gm PO DAILY 03/31/15 Nitroglycerin 0.4 mg SL Q5MIN PRN MDD 3 DOSES 05/15/18 Pantoprazole Sodium 40 mg PO DAILY 05/15/18 Apixaban [Eliquis] 5 mg PO BID 06/03/22 Gabapentin [Neurontin] 300 mg PO TID 06/03/22 Losartan Potassium 25 mg PO DAILY 06/03/22 Mirtazapine 7.5 mg PO DAILY 06/03/22 Pantoprazole Sodium [Protonix] 40 mg PO DAILY 06/03/22 Atorvastatin Calcium 40 mg PO QPM 06/11/22 Exam: Temperature is 36.5. Blood pressure is 151/84. Respirations 63. 17 respirations. 97% on room air. 5 foot 7 is female who is 66 kg. 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 Able to get up with a lap belt to walk in room sitting in a chair. She is feeding herself. Assessment: This is an elderly female who was brought in by EMS to our emergency room June 02. She is homeless and living with her son and their dogs on the street. She was sleeping on a park bench at night. She was brought in because of bilateral eye irritation. She was treated for conjunctivitis and then hydrated and was to be sent back to her son's care. However he did not want to pick her up. Her urine then grew E. coli a day later. Face was felt to have cellulitis while in the ER. She had a temperature 38.7. As such she was admitted 06/05 for IV ceftriaxone and vancomycin. Urine grew out E. coli on June 02. Blood cultures when she had a temperature spike grew out staph epidermidis. However that staph grew out on June 07 from the June 04 blood cultures. Repeat blood cultures June 06 were negative. We do feel that those staph cultures are contaminant.She is completed treatment for her UTI. She has been avoidable day since June 07. Problems resolved: E. coli UTI Conjunctivitis History of coronary artery disease COPD without exacerbation History of DVTs Hyponatremia Facial cellulitis we are awaiting placement. Son was initially to take her back home to attend but that plan has fallen through and social work will continue to find placement for this valeria female
[2022-06-14] MEDS: LIDOCAINE PATCH 5% TOP PRN (16:52)
[2022-06-14] MEDS: METOPROLOL TARTRATE 25 MG TABLET PO SCH (21:39)
[2022-06-14] MEDS: MIRTAZAPINE 15 MG TABLET PO SCH (21:39)
[2022-06-15] MEDS: SODIUM CHLORIDE FLUSH 0.9% 10 ML SYRINGE IVP SCH ×3 (06:00→10:48)
[2022-06-15] MEDS: PANTOPRAZOLE 40 MG TABLET PO SCH (06:04)
[2022-06-15] MEDS: PHENAZOPYRIDINE 100 MG TABLET PO SCH (06:04)
[2022-06-15] MEDS: LOSARTAN 50 MG TABLET PO SCH (08:19)
[2022-06-15] MEDS: MULTIVITAMIN W/MINERALS TABLET PO SCH (08:19)
[2022-06-15] MEDS: SACCHAROMYCES BOULARDII 250 MG CAPSULE PO SCH ×2 (08:20→16:59)
[2022-06-15] MEDS: APIXABAN 5 MG TABLET PO SCH ×2 (08:20→21:31)
[2022-06-15] MEDS: METOPROLOL TARTRATE 25 MG TABLET PO SCH ×2 (08:21→21:31)
--- NOTE | 2022-06-15 09:28 | PROVIDER PROGRESS NOTE ---
Assessment/Plan - Problem List (1) Cognitive impairment Assessment/Plan: On 06/07/22, she underwent cognitive eval and scored 14/30, indicating moderate cognitive impairment. This is likely from her old stroke. This makes her impulsive. She does work with OT to stay functional and is redirectable, communicates well, follows directions. She still claims she would be OK living in a tent with her son, who is homeless. We are looking for placement for her. (2) History of CVA (cerebrovascular accident) Assessment/Plan: The old CVA likely caused cognitive impairment and makes her impulsive (impulsivity has been documented by OT). She does ambulate on her room and was discharged already from PT since she met her goals. (3) E. coli UTI Impression: Her U/A was abn at presentation on 06/02/22. Then on 06/03/2022 in the ED, she had a positive urine culture, growing Ecoli and she was started on oral Macrobid. She was given Rocephin on June 02, then started on p.o. Macrobid. She received Macrobid on the . On the she received Rocephin again as well as Keflex. On the she received ceftriaxone and vancomycin. And on the she has been back on ceftriaxone consistently. On June 08 she had 7 days of combined IV and oral antibiotic therapy. As such antibiotics were stopped after completion June 08. She has been an avoidable days since June 07. (4) Conjunctivitis Resolved Conclusion/Plan: This was the initial presenting symptom with crusting, crusted shut and swollen eyelids. I suspect this may also have spread to the facial cellulitis. There is no further swelling or crusting, and less redness and pain As of the . Eyedrops completed Qualifiers: Conjunctivitis type: acute Acute conjunctivitis type: bacterial Laterality: bilateral Qualified Code(s): H10.33 - Unspecified acute conjunctivitis, bilateral (5) Homeless family Conclusion/Plan: An APS report has been filed according to the notes since she has presented to the ED. She described the plan is to have the son set up a "high-end" tent at friend's backyard where she and the son would live. She says she will go by wheelchair into the friend's house for toileting. Occupational Therapy saw the patient. She does participate in the occupational therapy session and completes transitional movements with slightly decreased impulsivity and improved self-care task such as eating and grooming requiring fewer multimodal cues. Her overall Cognitive score by HOUSTON scruggs was 14 out of 30. Physical therapy has completed working with her. She was impulsive, requiring contact-guard assist with gait and transfers using gait belt. On June 08 we prepared the patient for discharge. She was to go to this "tent" in her son's friend's backyard. The son then spoke to social work to let them know that that is no longer possible. He is not being allowed to use that backyard. As such discharge was canceled. The son has agreed to placement for her and we are now looking for a discharge facility for her. Today is another avoidable day. Social work will continue to work with son, and facilities to see where she could go live. Son is the payee on the patient's Social Security money. He may be reluctant to let her go since he uses that money to live off of. (6) Hx of coronary artery disease Conclusion/Plan: We are continuing with her usual prescription meds for this, which is B-michelet, ARB, prn sl NTG and her anti-coagulant, since she is not on an anti-plt agent. (7) COPD without exacerbation (J44.9) Conclusion/Plan: She is not in exacerbation We will continue with her usual prescription meds for this, which is just inha ler use prn wheezing No change (8) History of blood clots Conclusion/Plan: Her medication list, which has been reconciled, shows she is on Eliquis 5 mg twice daily. This is not for A. fib, CAD or her stroke Hx. 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 Will continue Eliquis. This will qualify as her DVT prophylaxis. No change (9) Hyponatremia Resolved as of 06/07 Conclusion/Plan: Improving. Unknown if she was getting IV fluids while she spent 3 days in the ED. On exam she had skin tenting. This is very likely hypovolemic hyponatremia therefore. IV fluids had been started because of the fever. Fluids stopped 06/07 after 2L infused (10) Facial cellulitis Conclusion/Plan: Resolved. This was described in the ED note. (11) Contamination of blood culture (R79.9) Conclusion/Plan: Patient had a fever while boarding in ED and blood cultures were drawn then, these blood cultures turned positive growing gram-positive cocci. She had some face swelling reported by ED provider and thought to have facial cellulitis. It was thought to be source of her bacteremia. Since she is homeless, and her exposures are to unknown organisms therefore she is at risk for MRSA, so Vanco was started and Macrobid changed to Rocephin. We started a probiotic. Lactic Acid level ordered to check for sepsis. Maintenance iv fluids were given We michelle a repeat set of blood cultures, on the combined antibiotics, to assure there is no future bacterial growth. And those were negative. That blood culture result has been finalized using PCR and it is Staph epidermis which is a contaminant. We stopped the Vanco. We decrease Rocephin for UTI, and recognized she had no bacteremia and that the bacterial growth showed up 3 days after culture done.It grew staph epidermidis from a June 04 blood culture. We think this is contaminant. She was ordered to get an Echocardiogram to evaluate for endocarditis, but we cancelled this. - Current Meds Current Meds: Current Medications Generic Name Dose Route Start Last Admin Trade Name Freq PRN Reason Stop Dose Admin Acetaminophen 650 mg 06/05/22 17:41 06/14/22 21:40 Acetaminophen 325 Mg Tablet PO 650 mg Q4HR PRN Administration Pain 1 to 4, or Fever Apixaban 5 mg 06/03/22 21:00 06/15/22 08:20 Apixaban 5 Mg Tablet PO 5 mg BID [facility] Administration Carboxymethylcellulose 1 drops 06/12/22 15:42 06/13/22 15:59 Carboxymethylcellulose Ophth Drops EACHEYE 1 drops PRN PRN Administration Dry Eye Lidocaine 1 patch 06/13/22 16:11 06/14/22 16:52 Lidocaine Patch 5% TOP 1 patch DAILY PRN Administration PAIN Losartan Potassium 25 mg 06/03/22 13:00 06/15/22 08:19 Losartan 50 Mg Tablet PO 25 mg DAILY [facility] Administration Metoprolol Tartrate 25 mg 06/14/22 21:00 06/15/22 08:21 Metoprolol Tartrate 25 Mg Tablet PO 25 mg BID [facility] Administration Mirtazapine 15 mg 06/03/22 21:00 06/14/22 21:39 Mirtazapine 15 Mg Tablet PO 15 mg QPM [facility] Administration Multivitamins/Minerals 1 tab 06/15/22 08:00 06/15/22 08:19 Multivitamin W/Minerals Tablet PO 1 tab DAILYWM [facility] Administration Pantoprazole Sodium 40 mg 06/07/22 07:00 06/15/22 06:04 Pantoprazole 40 Mg Tablet PO 40 mg QDAC [facility] Administration Phenazopyridine HCl 100 mg 06/12/22 22:00 06/15/22 06:04 Phenazopyridine 100 Mg Tablet PO 100 mg TID [facility] Administration Saccharomyces Boulardii 250 mg 06/06/22 08:00 06/15/22 08:20 Saccharomyces Boulardii 250 Mg Capsule PO 250 mg BIDWM [facility] Administration Sodium Chloride 10 ml 06/06/22 01:00 06/15/22 06:00 Sodium Chloride Flush 0.9% 10 Ml Syringe IVP Not Given 0100,0900,1700 [facility] - Lab Result Fish Bone Diagrams: 06/08/22 09:05 06/08/22 09:05 - Additional Planning My Orders: My Active Orders 06/14/22 21:00 Metoprolol Tartrate [Lopressor] 25 mg PO BID Subjective - Subjective Patient Reports: Resting Comfortably, No Complaints Nursing Reports: Other (Neck pain is better ever since Lidocaine patch ordered) Objective Vital Signs: Vital Signs - 24 hr 06/14/22 06/14/22 06/14/22 13:49 15:39 21:39 Temperature 36.4 C L 36.4 C L Heart Rate [ 90 77 Brachial] Respiratory 16 18 Rate Blood Pressure 110/62 Blood Pressure 143/61 H [Left Brachial artery] Blood Pressure 118/55 L [Right Brachial artery] O2 Saturation 98 95 06/15/22 06/15/22 00:40 07:36 Temperature 36.3 C L 36.5 C Heart Rate [ 46 L 52 L Brachial] Respiratory 16 16 Rate Blood Pressure Blood Pressure [Left Brachial artery] Blood Pressure 113/78 152/59 H [Right Brachial artery] O2 Saturation 96 98 Oxygen O2 Source Room air I&O (Last 24 Hrs): Intake and Output Totals x24h 06/13/22 06/14/22 06/15/22 23:59 23:59 23:59 Intake Total 2394 2530 Output Total 1500 2900 900 Balance 894 -370 -900 General: Alert, No acute distress HEENT: Mucous membr. moist/pink, Other (Cachectic) Neck: Supple Neuro: Alert, Non Focal Cardiovascular: Regular rate, No murmurs Respiratory: No respiratory distress, Breath sounds nml Abdomen: Normal bowel sounds, Soft Extremities: No edema, No tenderness/swelling - Results Results: Laboratory Results WBC 6.7 x10^3/uL (4.8-10.8) 06/08/22 09:05 RBC 3.34 10^6/uL (4.20-5.40) L 06/08/22 09:05 Hgb 10.1 g/dL (12.0-16.0) L 06/08/22 09:05 Hct 31.9 % (37.0-47.0) L 06/08/22 09:05 MCV 95.5 fL (81.0-99.0) 06/08/22 09:05 MCH 30.2 pg (27.0-31.0) 06/08/22 09:05 MCHC 31.7 g/dL (32.0-36.0) L 06/08/22 09:05 RDW 15.5 % (12.0-15.0) H 06/08/22 09:05 Plt Count 221 10^3/uL (130-450) 06/08/22 09:05 MPV 9.9 fL (7.9-10.8) 06/08/22 09:05 Neut # (Auto) 4.0 10^3/uL (1.5-6.6) 06/08/22 09:05 Lymph # (Auto) 1.7 10^3/uL (1.5-3.5) 06/08/22 09:05 [place] # (Auto) 0.7 10^3/uL (0.0-1.0) 06/08/22 09:05 Eos # (Auto) 0.2 10^3/uL (0.0-0.7) 06/08/22 09:05 Baso # (Auto) 0.0 10^3/uL (0.0-0.1) 06/08/22 09:05 Absolute Nucleated RBC 0.00 x10^3/uL 06/08/22 09:05 Nucleated RBC % 0.0 /100WBC 06/08/22 09:05 Sodium 139 mmol/L (135-145) 06/08/22 09:05 Potassium 4.4 mmol/L (3.5-5.0) 06/08/22 09:05 Chloride 105 mmol/L (101-111) 06/08/22 09:05 Carbon Dioxide 25 mmol/L (21-32) 06/08/22 09:05 Anion Gap 9.0 (6-13) 06/08/22 09:05 BUN 22 mg/dL (6-20) H 06/08/22 09:05 Creatinine 0.7 mg/dL (0.4-1.0) 06/08/22 09:05 Estimated GFR (MDRD) 80 (>89) L 06/08/22 09:05 Glucose 103 mg/dL (70-100) H 06/08/22 09:05 Lactic Acid 1.7 mmol/L (0.5-2.2) 06/06/22 09:00 Calcium 9.0 mg/dL (8.5-10.3) 06/08/22 09:05 Magnesium 2.1 mg/dL (1.7-2.8) 06/06/22 05:51 Total Bilirubin 0.8 mg/dL (0.2-1.0) 06/04/22 14:40 AST 19 IU/L (10-42) 06/04/22 14:40 ALT 12 IU/L (10-60) 06/04/22 14:40 Alkaline Phosphatase 87 IU/L (42-121) 06/04/22 14:40 C-Reactive Protein 4.9 mg/dL (0-1.0) H 06/07/22 06:12 Total Protein 7.5 g/dL (6.7-8.2) 06/04/22 14:40 Albumin 3.8 g/dL (3.2-5.5) 06/04/22 14:40 Globulin 3.7 g/dL (2.1-4.2) 06/04/22 14:40 Albumin/Globulin Ratio 1.0 (1.0-2.2) 06/04/22 14:40 Lipase 28 U/L (22-51) 06/04/22 14:40 Urine Color YELLOW 06/02/22 17:25 Urine Clarity HAZY (CLEAR) 06/02/22 17:25 Urine pH 7.0 PH (5.0-7.5) 06/02/22 17:25 Ur Specific [place] <=1.005 (1.002-1.030) 06/02/22 17:25 Urine Protein NEGATIVE mg/dL (NEGATIVE) 06/02/22 17:25 Urine Glucose (UA) NEGATIVE mg/dL (NEGATIVE) 06/02/22 17:25 Urine Ketones NEGATIVE mg/dL (NEGATIVE) 06/02/22 17:25 Urine Occult Blood MODERATE (NEGATIVE) H 06/02/22 17:25 Urine Nitrite POSITIVE (NEGATIVE) H 06/02/22 17:25 Urine Bilirubin NEGATIVE (NEGATIVE) 06/02/22 17:25 Urine Urobilinogen 0.2 (NORMAL) E.U./dL (NORMAL) 06/02/22 17:25 Ur Leukocyte Esterase LARGE (NEGATIVE) H 06/02/22 17:25 Urine RBC 11-25 /HPF (0-5) H 06/02/22 17:25 Urine WBC >25 /HPF (0-5) H 06/02/22 17:25 Urine WBC Clumps PRESENT 06/02/22 17:25 Ur Squamous Epith Cells FEW Squamous (<= Few) 06/02/22 17:25 Urine Bacteria Many /HPF (None Seen) H 06/02/22 17:25 Ur Microscopic Review INDICATED 06/02/22 17:25 Urine Culture Comments INDICATED 06/02/22 17:25 SARS-CoV-2 (PCR) NOT DETECTED 06/05/22 17:53 - Procedures Procedures: Procedures INSPECTION OF UPPER INTESTINAL TRACT, ENDO (05/16/18) LOCAL EXCIS BREAST LES (04/01/15)
[2022-06-15] MEDS: GABAPENTIN 300 MG CAPSULE PO SCH ×3 (09:47→21:30)
[2022-06-15] MEDS: CARBOXYMETHYLCELLULOSE OPHTH DROPS EACHEYE PRN (17:08)
[2022-06-15] MEDS: MIRTAZAPINE 15 MG TABLET PO SCH (21:30)
[2022-06-15] MEDS: ACETAMINOPHEN 325 MG TABLET PO PRN (21:30)
[2022-06-16] MEDS: PANTOPRAZOLE 40 MG TABLET PO SCH (05:12)
[2022-06-16] MEDS: GABAPENTIN 300 MG CAPSULE PO SCH ×3 (05:12→21:08)
[2022-06-16] MEDS: SACCHAROMYCES BOULARDII 250 MG CAPSULE PO SCH ×2 (07:58→17:11)
[2022-06-16] MEDS: APIXABAN 5 MG TABLET PO SCH ×2 (07:58→21:08)
[2022-06-16] MEDS: ACETAMINOPHEN 325 MG TABLET PO PRN (07:58)
[2022-06-16] MEDS: LOSARTAN 50 MG TABLET PO SCH (07:59)
[2022-06-16] MEDS: MULTIVITAMIN W/MINERALS TABLET PO SCH (07:59)
[2022-06-16] MEDS: METOPROLOL TARTRATE 25 MG TABLET PO SCH ×2 (08:01→21:10)
--- NOTE | 2022-06-16 13:30 | PROVIDER PROGRESS NOTE ---
Assessment/Plan - Problem List (1) Cognitive impairment Assessment/Plan: On 06/07/22, she underwent cognitive eval and scored 14/30, indicating moderate cognitive impairment. This is likely from her old stroke. This makes her impulsive. She does work with OT to stay functional and is redirectable, communicates well, follows directions. She still claims she would be OK living in a tent with her son, who is homeless, until yesterday, when she had a comment to OT that "she would be too cold in a tent". We are looking for placement for her. (2) History of CVA (cerebrovascular accident) Assessment/Plan: The old CVA likely caused cognitive impairment and makes her impulsive. Iimpulsivity was documented by OT, but has improved. She does ambulate on her room and was discharged already from PT since she met her goals. (3) Homeless family Conclusion/Plan: An APS report has been filed according to the notes since she has presented to the ED. She described the plan is to have the son set up a "high-end" tent at [facility] where she and the son would live. She says she will go by wheelchair into the friend's house for toileting. Occupational Therapy saw the patient. She does participate in the occupational therapy session and completes transitional movements with slightly decreased impulsivity and improved self-care task such as eating and grooming requiring fewer multimodal cues. Her overall Cognitive score by HOUSTON scruggs was 14 out of 30. Physical therapy has completed working with her. She was impulsive, requiring contact-guard assist with gait and transfers using gait belt. On June 08 we prepared the patient for discharge. She was to go to this "tent" in her son's friend's backyard. The son then spoke to social work to let them know that that is no longer possible. He is not being allowed to use that backyard. As such discharge was canceled. The son has agreed to placement for her and we are now looking for a discharge facility for her. Today is another avoidable day. Social work will continue to work with son, and facilities to see where she could go live. Son is the payee on the patient's Social Security money. He may be reluctant to let her go since he uses that mo gerson to live off of. (4) E. coli UTI Impression: Her U/A was abn at presentation on 06/02/22. Then on 06/03/2022 in the ED, she had a positive urine culture, growing Ecoli and she was started on oral Macrobid. She was given Rocephin on June 02, then started on p.o. Macrobid. She received Macrobid on the . On the she received Rocephin again as w ell as Keflex. On the she received ceftriaxone and vancomycin. And on the she has been back on ceftriaxone consistently. On June 08 she had 7 days of combined IV and oral antibiotic therapy. As such antibiotics were stopped after completion June 08. She has been an avoidable days since June 07. (5) Conjunctivitis Resolved Conclusion/Plan: This was the initial presenting symptom with crusting, crusted shut and swollen eyelids. I suspect this may also have spread to the facial cellulitis. There is no further swelling or crusting, and less redness and pain As of the . Eyedrops completed Qualifiers: Conjunctivitis type: acute Acute conjunctivitis type: bacterial Laterality: bilateral Qualified Code(s): H10.33 - Unspecified acute conjunctivitis, bilateral (6) Hx of coronary artery disease Conclusion/Plan: We are continuing with her usual prescription meds for this, which is B-michelet, ARB, prn sl NTG and her anti-coagulant, since she is not on an anti-plt agent. (7) COPD without exacerbation (J44.9) Conclusion/Plan: She is not in exacerbation We will continue with her usual prescription meds for this, which is just inha ler use prn wheezing No change (8) History of blood clots Conclusion/Plan: Her medication list, which has been reconciled, shows she is on Eliquis 5 mg twice daily. This is not for A. fib, CAD or her stroke Hx. 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 Will continue Eliquis. This will qualify as her DVT prophylaxis. No change (9) Hyponatremia Resolved as of 06/07 Conclusion/Plan: Improving. Unknown if she was getting IV fluids while she spent 3 days in the ED. On exam she had skin tenting. This is very likely hypovolemic hyponatremia therefore. IV fluids had been started because of the fever. Fluids stopped 06/07 after 2L infused (10) Facial cellulitis Conclusion/Plan: Resolved. This was described in the ED note. (11) Contamination of blood culture (R79.9) Conclusion/Plan: Patient had a fever while boarding in ED and blood cultures were drawn then, these blood cultures turned positive growing gram-positive cocci. She had some face swelling reported by ED provider and thought to have facial cellulitis. It was thought to be source of her bacteremia. Since she is homeless, and her exposures are to unknown organisms therefore she is at risk for MRSA, so Vanco was started and Macrobid changed to Rocephin. We started a probiotic. Lactic Acid level ordered to check for sepsis. Maintenance iv fluids were given We michelle a repeat set of blood cultures, on the combined antibiotics, to assure there is no future bacterial growth. And those were negative. That blood culture result has been finalized using PCR and it is Staph epidermis which is a contaminant. We stopped the Vanco. We decrease Rocephin for UTI, and recognized she had no bacteremia and that the bacterial growth showed up 3 days after culture done.It grew staph epidermidis from a June 04 blood culture. We think this is contaminant. She was ordered to get an Echocardiogram to evaluate for endocarditis, but we cancelled this. - Current Meds Current Meds: Current Medications Generic Name Dose Route Start Last Admin Trade Name Leah PRN Reason Stop Dose Admin Acetaminophen 650 mg 06/05/22 17:41 06/16/22 07:58 Acetaminophen 325 Mg Tablet PO 650 mg Q4HR PRN Administration Pain 1 to 4, or Fever Apixaban 5 mg 06/03/22 21:00 06/16/22 07:58 Apixaban 5 Mg Tablet PO 5 mg BID DENILSON Administration Carboxymethylcellulose 1 drops 06/12/22 15:42 06/15/22 17:08 Carboxymethylcellulose Ophth Drops EACHEYE 1 drops PRN PRN Administration Dry Eye Gabapentin 300 mg 06/15/22 10:00 06/16/22 05:12 Gabapentin 300 Mg Capsule PO 300 mg TID DENILSON Administration Lidocaine 1 patch 06/13/22 16:11 06/14/22 16:52 Lidocaine Patch 5% TOP 1 patch DAILY PRN Administration PAIN Losartan Potassium 25 mg 06/03/22 13:00 06/16/22 07:59 Losartan 50 Mg Tablet PO 25 mg DAILY DENILSON Administration Metoprolol Tartrate 25 mg 06/14/22 21:00 06/16/22 08:01 Metoprolol Tartrate 25 Mg Tablet PO 25 mg BID DENILSON Administration Mirtazapine 15 mg 06/03/22 21:00 06/15/22 21:30 Mirtazapine 15 Mg Tablet PO 15 mg QPM DENILSON Administration Multivitamins/Minerals 1 tab 06/15/22 08:00 06/16/22 07:59 Multivitamin W/Minerals Tablet PO 1 tab DAILYWM DENILSON Administration Pantoprazole Sodium 40 mg 06/07/22 07:00 06/16/22 05:12 Pantoprazole 40 Mg Tablet PO 40 mg QDAC DENILSON Administration Saccharomyces Boulardii 250 mg 06/06/22 08:00 06/16/22 07:58 Saccharomyces Boulardii 250 Mg Capsule PO 250 mg BIDWM DENILSON Administration - Lab Result Fish Bone Diagrams: 06/08/22 09:05 06/08/22 09:05 - Additional Planning My Orders: My Active Orders 06/16/22 08:10 Straight Catheter Insertion [RC] PRN Subjective - Subjective Patient Reports: Resting Comfortably, No Complaints Objective Vital Signs: Vital Signs - 24 hr 06/15/22 06/15/22 06/16/22 16:58 21:31 00:07 Temperature 36.7 C 36.5 C Heart Rate [ 70 44 L Brachial] Respiratory 18 16 Rate Blood Pressure 99/36 L Blood Pressure 115/59 L 104/44 L [Right Brachial artery] O2 Saturation 97 96 06/16/22 06/16/22 08:00 08:01 Temperature 36.4 C L Heart Rate [ 75 Brachial] Respiratory 16 Rate Blood Pressure 149/77 H Blood Pressure [Right Brachial artery] O2 Saturation 100 Oxygen O2 Source Room air I&O (Last 24 Hrs): Intake and Output Totals x24h 06/14/22 06/15/22 06/16/22 23:59 23:59 23:59 Intake Total 2530 1880 1320 Output Total 2900 1500 800 Balance -370 380 520 General: Alert HEENT: Mucous membr. moist/pink Neck: Supple, No JVD Neuro: Disoriented, Non Focal Cardiovascular: No murmurs Respiratory: No respiratory distress Abdomen: Soft Extremities: No edema - Results Results: Laboratory Results WBC 6.7 x10^3/uL (4.8-10.8) 06/08/22 09:05 RBC 3.34 10^6/uL (4.20-5.40) L 06/08/22 09:05 Hgb 10.1 g/dL (12.0-16.0) L 06/08/22 09:05 Hct 31.9 % (37.0-47.0) L 06/08/22 09:05 MCV 95.5 fL (81.0-99.0) 06/08/22 09:05 MCH 30.2 pg (27.0-31.0) 06/08/22 09:05 MCHC 31.7 g/dL (32.0-36.0) L 06/08/22 09:05 RDW 15.5 % (12.0-15.0) H 06/08/22 09:05 Plt Count 221 10^3/uL (130-450) 06/08/22 09:05 MPV 9.9 fL (7.9-10.8) 06/08/22 09:05 Neut # (Auto) 4.0 10^3/uL (1.5-6.6) 06/08/22 09:05 Lymph # (Auto) 1.7 10^3/uL (1.5-3.5) 06/08/22 09:05 [place] # (Auto) 0.7 10^3/uL (0.0-1.0) 06/08/22 09:05 Eos # (Auto) 0.2 10^3/uL (0.0-0.7) 06/08/22 09:05 Baso # (Auto) 0.0 10^3/uL (0.0-0.1) 06/08/22 09:05 Absolute Nucleated RBC 0.00 x10^3/uL 06/08/22 09:05 Nucleated RBC % 0.0 /100WBC 06/08/22 09:05 Sodium 139 mmol/L (135-145) 06/08/22 09:05 Potassium 4.4 mmol/L (3.5-5.0) 06/08/22 09:05 Chloride 105 mmol/L (101-111) 06/08/22 09:05 Carbon Dioxide 25 mmol/L (21-32) 06/08/22 09:05 Anion Gap 9.0 (6-13) 06/08/22 09:05 BUN 22 mg/dL (6-20) H 06/08/22 09:05 Creatinine 0.7 mg/dL (0.4-1.0) 06/08/22 09:05 Estimated GFR (MDRD) 80 (>89) L 06/08/22 09:05 Glucose 103 mg/dL (70-100) H 06/08/22 09:05 Lactic Acid 1.7 mmol/L (0.5-2.2) 06/06/22 09:00 Calcium 9.0 mg/dL (8.5-10.3) 06/08/22 09:05 Magnesium 2.1 mg/dL (1.7-2.8) 06/06/22 05:51 Total Bilirubin 0.8 mg/dL (0.2-1.0) 06/04/22 14:40 AST 19 IU/L (10-42) 06/04/22 14:40 ALT 12 IU/L (10-60) 06/04/22 14:40 Alkaline Phosphatase 87 IU/L (42-121) 06/04/22 14:40 C-Reactive Protein 4.9 mg/dL (0-1.0) H 06/07/22 06:12 Total Protein 7.5 g/dL (6.7-8.2) 06/04/22 14:40 Albumin 3.8 g/dL (3.2-5.5) 06/04/22 14:40 Globulin 3.7 g/dL (2.1-4.2) 06/04/22 14:40 Albumin/Globulin Ratio 1.0 (1.0-2.2) 06/04/22 14:40 Lipase 28 U/L (22-51) 06/04/22 14:40 Urine Color YELLOW 06/02/22 17:25 Urine Clarity HAZY (CLEAR) 06/02/22 17:25 Urine pH 7.0 PH (5.0-7.5) 06/02/22 17:25 Ur Specific [place] <=1.005 (1.002-1.030) 06/02/22 17:25 Urine Protein NEGATIVE mg/dL (NEGATIVE) 06/02/22 17:25 Urine Glucose (UA) NEGATIVE mg/dL (NEGATIVE) 06/02/22 17:25 Urine Ketones NEGATIVE mg/dL (NEGATIVE) 06/02/22 17:25 Urine Occult Blood MODERATE (NEGATIVE) H 06/02/22 17:25 Urine Nitrite POSITIVE (NEGATIVE) H 06/02/22 17:25 Urine Bilirubin NEGATIVE (NEGATIVE) 06/02/22 17:25 Urine Urobilinogen 0.2 (NORMAL) E.U./dL (NORMAL) 06/02/22 17:25 Ur Leukocyte Esterase LARGE (NEGATIVE) H 06/02/22 17:25 Urine RBC 11-25 /HPF (0-5) H 06/02/22 17:25 Urine WBC >25 /HPF (0-5) H 06/02/22 17:25 Urine WBC Clumps PRESENT 06/02/22 17:25 Ur Squamous Epith Cells FEW Squamous (<= Few) 06/02/22 17:25 Urine Bacteria Many /HPF (None Seen) H 06/02/22 17:25 Ur Microscopic Review INDICATED 06/02/22 17:25 Urine Culture Comments INDICATED 06/02/22 17:25 SARS-CoV-2 (PCR) NOT DETECTED 06/05/22 17:53 - Procedures Procedures: Procedures INSPECTION OF UPPER INTESTINAL TRACT, ENDO (05/16/18) LOCAL EXCIS BREAST LES (04/01/15)
[2022-06-16] MEDS: MIRTAZAPINE 15 MG TABLET PO SCH (21:09)
[2022-06-17] MEDS: ACETAMINOPHEN 325 MG TABLET PO PRN ×2 (01:07→17:04)
[2022-06-17] MEDS: PANTOPRAZOLE 40 MG TABLET PO SCH (07:17)
[2022-06-17] MEDS: GABAPENTIN 300 MG CAPSULE PO SCH ×3 (07:17→20:30)
[2022-06-17] MEDS: APIXABAN 5 MG TABLET PO SCH ×2 (08:51→20:31)
[2022-06-17] MEDS: MULTIVITAMIN W/MINERALS TABLET PO SCH (08:51)
[2022-06-17] MEDS: SACCHAROMYCES BOULARDII 250 MG CAPSULE PO SCH ×2 (08:52→16:57)
[2022-06-17] MEDS: METOPROLOL TARTRATE 25 MG TABLET PO SCH ×2 (08:52→20:29)
[2022-06-17] MEDS: LOSARTAN 50 MG TABLET PO SCH (08:52)
[2022-06-17] MEDS: LIDOCAINE PATCH 5% TOP PRN (08:53)
--- NOTE | 2022-06-17 13:36 | PROVIDER PROGRESS NOTE ---
Assessment/Plan - Problem List (1) Cognitive impairment Assessment/Plan: On 06/07/22, she underwent cognitive eval and scored 14/30, indicating moderate cognitive impairment. This is likely from her old stroke. This makes her impulsive. She does work with OT to stay functional and is redirectable, communicates well, follows directions. She still claims she would be OK living in a tent with her son, who is homeless, until recently, when she had a comment to OT that "she would be too cold in a tent". We are looking for placement for her. (2) History of CVA (cerebrovascular accident) Assessment/Plan: The old CVA likely caused cognitive impairment and makes her impulsive. Iimpulsivity was documented by OT, but has improved. She does ambulate on her room and was discharged already from PT since she met her goals. (3) Homeless family Conclusion/Plan: An APS report has been filed according to the notes since she has presented to the ED. She described the plan is to have the son set up a "high-end" tent at friend's backyard where she and the son would live. She says she will go by wheelchair into the friend's house for toileting. Occupational Therapy saw the patient. She does participate in the occupational therapy session and completes transitional movements with slightly decreased impulsivity and improved self-care task such as eating and grooming requiring fewer multimodal cues. Her overall Cognitive score by HOUSTON scruggs was 14 out of 30. Physical therapy has completed working with her. She was impulsive, requiring contact-guard assist with gait and transfers using gait belt. On June 08 we prepared the patient for discharge. She was to go to this "tent" in her son's friend's backyard. The son then spoke to social work to let them know that that is no longer possible. He is not being allowed to use that backyard. As such discharge was canceled. The son has agreed to placement for her and we are now looking for a discharge facility for her. Today is another avoidable day. Social work will continue to work with son, and facilities to see where she could go live. Son is the payee on the patient's Social Security money. He may be reluctant to let her go since he uses that mon [place] to live off of. (4) E. coli UTI Impression: Her U/A was abn at presentation on 06/02/22. Then on 06/03/2022 in the ED, she had a positive urine culture, growing Ecoli and she was started on oral Macrobid. She was given Rocephin on June 02, then started on p.o. Macrobid. She received Macrobid on the . On the she received Rocephin again as we ll as Keflex. On the she received ceftriaxone and vancomycin. And on the she has been back on ceftriaxone consistently. On June 08 she had 7 days of combined IV and oral antibiotic therapy. As such antibiotics were stopped after completion June 08. She has been an avoidable days since June 07. (5) Conjunctivitis Resolved Conclusion/Plan: This was the initial presenting symptom with crusting, crusted shut and swollen eyelids. I suspect this may also have spread to the facial cellulitis. There is no further swelling or crusting, and less redness and pain As of the . Eyedrops completed Qualifiers: Conjunctivitis type: acute Acute conjunctivitis type: bacterial Laterality: bilateral Qualified Code(s): H10.33 - Unspecified acute conjunctivitis, bilateral (6) Hx of coronary artery disease Conclusion/Plan: We are continuing with her usual prescription meds for this, which is B-michelet, ARB, prn sl NTG and her anti-coagulant, since she is not on an anti-plt agent. (7) COPD without exacerbation (J44.9) Conclusion/Plan: She is not in exacerbation We will continue with her usual prescription meds for this, which is just inhal er use prn wheezing No change (8) History of blood clots Conclusion/Plan: Her medication list, which has been reconciled, shows she is on Eliquis 5 mg twice daily. This is not for A. fib, CAD or her stroke Hx. 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 Will continue Eliquis. This will qualify as her DVT prophylaxis. No change (9) Hyponatremia Resolved as of 06/07 Conclusion/Plan: Improving. Unknown if she was getting IV fluids while she spent 3 days in the ED. On exam she had skin tenting. This is very likely hypovolemic hyponatremia therefore. IV fluids had been started because of the fever. Fluids stopped 06/07 after 2L infused Will assess a BMP tomorrow AM (10) Facial cellulitis Conclusion/Plan: Resolved. This was described in the ED note. (11) Contamination of blood culture (R79.9) Conclusion/Plan: Patient had a fever while boarding in ED and blood cultures were drawn then, these blood cultures turned positive growing gram-positive cocci. She had some face swelling reported by ED provider and thought to have facial cellulitis. It was thought to be source of her bacteremia. Since she is homeless, and her exposures are to unknown organisms therefore she is at risk for MRSA, so Vanco was started and Macrobid changed to Rocephin. We started a probiotic. Lactic Acid level ordered to check for sepsis. Maintenance iv fluids were given We michelle a repeat set of blood cultures, on the combined antibiotics, to assure there is no future bacterial growth. And those were negative. That blood culture result has been finalized using PCR and it is Staph epidermis which is a contaminant. We stopped the Vanco. We decrease Rocephin for UTI, and recognized she had no bacteremia and that the bacterial growth showed up 3 days after culture done.It grew staph epidermidis from a June 04 blood culture. We think this is contaminant. She was ordered to get an Echocardiogram to evaluate for endocarditis, but we cancelled this. - Current Meds Current Meds: Current Medications Generic Name Dose Route Start Last Admin Trade Name Leah PRN Reason Stop Dose Admin Acetaminophen 650 mg 06/05/22 17:41 06/17/22 01:07 Acetaminophen 325 Mg Tablet PO 650 mg Q4HR PRN Administration Pain 1 to 4, or Fever Apixaban 5 mg 06/03/22 21:00 06/17/22 08:51 Apixaban 5 Mg Tablet PO 5 mg BID DENILSON Administration Carboxymethylcellulose 1 drops 06/12/22 15:42 06/15/22 17:08 Carboxymethylcellulose Ophth Drops EACHEYE 1 drops PRN PRN Administration Dry Eye Gabapentin 300 mg 06/15/22 10:00 06/17/22 07:17 Gabapentin 300 Mg Capsule PO 300 mg TID DENILSON Administration Lidocaine 1 patch 06/13/22 16:11 06/17/22 08:53 Lidocaine Patch 5% TOP 1 patch DAILY PRN Administration PAIN Losartan Potassium 25 mg 06/03/22 13:00 06/17/22 08:52 Losartan 50 Mg Tablet PO 25 mg DAILY DENILSON Administration Metoprolol Tartrate 25 mg 06/14/22 21:00 06/17/22 08:52 Metoprolol Tartrate 25 Mg Tablet PO Not Given BID DENILSON Mirtazapine 15 mg 06/03/22 21:00 06/16/22 21:09 Mirtazapine 15 Mg Tablet PO 15 mg QPM DENILSON Administration Multivitamins/Minerals 1 tab 06/15/22 08:00 06/17/22 08:51 Multivitamin W/Minerals Tablet PO 1 tab DAILYWM DENILSON Administration Pantoprazole Sodium 40 mg 06/07/22 07:00 06/17/22 07:17 Pantoprazole 40 Mg Tablet PO 40 mg QDAC DENILSON Administration Saccharomyces Boulardii 250 mg 06/06/22 08:00 06/17/22 08:52 Saccharomyces Boulardii 250 Mg Capsule PO 250 mg BIDWM DENILSON Administration - Lab Result Fish Bone Diagrams: 06/08/22 09:05 06/08/22 09:05 - Additional Planning My Orders: My Active Orders 06/18/22 05:00 BMP - BASIC METABOLIC PANEL [CHEM] DAILYLAB CBC - COMP BLD CT W/AUTO DIFF [HEME] DAILYLAB MAGNESIUM [CHEM] DAILYLAB Subjective - Subjective Patient Reports: Resting Comfortably, No Complaints Objective Vital Signs: Vital Signs - 24 hr 06/16/22 06/16/22 06/16/22 16:54 21:10 23:35 Temperature 36.6 C 36.6 C Heart Rate [ 64 46 L Brachial] Respiratory 24 16 Rate Blood Pressure 127/52 L Blood Pressure 106/52 L 98/47 L [Right Brachial artery] O2 Saturation 96 97 06/17/22 07:33 Temperature 36.6 C Heart Rate [ 49 L Brachial] Respiratory 16 Rate Blood Pressure Blood Pressure 128/68 [Right Brachial artery] O2 Saturation 100 Oxygen O2 Source Room air I&O (Last 24 Hrs): Intake and Output Totals x24h 06/15/22 06/16/22 06/17/22 23:59 23:59 23:59 Intake Total 1880 2120 1770 Output Total 1500 1700 1250 Balance 380 420 520 General: Other (Asleep, awakens and speaks) HEENT: Mucous membr. moist/pink Neck: Supple, No JVD Neuro: Alert, Disoriented, Non Focal Cardiovascular: Regular rate Respiratory: No respiratory distress Abdomen: Soft Extremities: No edema - Results Results: Laboratory Results WBC 6.7 x10^3/uL (4.8-10.8) 06/08/22 09:05 RBC 3.34 10^6/uL (4.20-5.40) L 06/08/22 09:05 Hgb 10.1 g/dL (12.0-16.0) L 06/08/22 09:05 Hct 31.9 % (37.0-47.0) L 06/08/22 09:05 MCV 95.5 fL (81.0-99.0) 06/08/22 09:05 MCH 30.2 pg (27.0-31.0) 06/08/22 09:05 MCHC 31.7 g/dL (32.0-36.0) L 06/08/22 09:05 RDW 15.5 % (12.0-15.0) H 06/08/22 09:05 Plt Count 221 10^3/uL (130-450) 06/08/22 09:05 MPV 9.9 fL (7.9-10.8) 06/08/22 09:05 Neut # (Auto) 4.0 10^3/uL (1.5-6.6) 06/08/22 09:05 Lymph # (Auto) 1.7 10^3/uL (1.5-3.5) 06/08/22 09:05 [place] # (Auto) 0.7 10^3/uL (0.0-1.0) 06/08/22 09:05 Eos # (Auto) 0.2 10^3/uL (0.0-0.7) 06/08/22 09:05 Baso # (Auto) 0.0 10^3/uL (0.0-0.1) 06/08/22 09:05 Absolute Nucleated RBC 0.00 x10^3/uL 06/08/22 09:05 Nucleated RBC % 0.0 /100WBC 06/08/22 09:05 Sodium 139 mmol/L (135-145) 06/08/22 09:05 Potassium 4.4 mmol/L (3.5-5.0) 06/08/22 09:05 Chloride 105 mmol/L (101-111) 06/08/22 09:05 Carbon Dioxide 25 mmol/L (21-32) 06/08/22 09:05 Anion Gap 9.0 (6-13) 06/08/22 09:05 BUN 22 mg/dL (6-20) H 06/08/22 09:05 Creatinine 0.7 mg/dL (0.4-1.0) 06/08/22 09:05 Estimated GFR (MDRD) 80 (>89) L 06/08/22 09:05 Glucose 103 mg/dL (70-100) H 06/08/22 09:05 Lactic Acid 1.7 mmol/L (0.5-2.2) 06/06/22 09:00 Calcium 9.0 mg/dL (8.5-10.3) 06/08/22 09:05 Magnesium 2.1 mg/dL (1.7-2.8) 06/06/22 05:51 Total Bilirubin 0.8 mg/dL (0.2-1.0) 06/04/22 14:40 AST 19 IU/L (10-42) 06/04/22 14:40 ALT 12 IU/L (10-60) 06/04/22 14:40 Alkaline Phosphatase 87 IU/L (42-121) 06/04/22 14:40 C-Reactive Protein 4.9 mg/dL (0-1.0) H 06/07/22 06:12 Total Protein 7.5 g/dL (6.7-8.2) 06/04/22 14:40 Albumin 3.8 g/dL (3.2-5.5) 06/04/22 14:40 Globulin 3.7 g/dL (2.1-4.2) 06/04/22 14:40 Albumin/Globulin Ratio 1.0 (1.0-2.2) 06/04/22 14:40 Lipase 28 U/L (22-51) 06/04/22 14:40 Urine Color YELLOW 06/02/22 17:25 Urine Clarity HAZY (CLEAR) 06/02/22 17:25 Urine pH 7.0 PH (5.0-7.5) 06/02/22 17:25 Ur Specific [place] <=1.005 (1.002-1.030) 06/02/22 17:25 Urine Protein NEGATIVE mg/dL (NEGATIVE) 06/02/22 17:25 Urine Glucose (UA) NEGATIVE mg/dL (NEGATIVE) 06/02/22 17:25 Urine Ketones NEGATIVE mg/dL (NEGATIVE) 06/02/22 17:25 Urine Occult Blood MODERATE (NEGATIVE) H 06/02/22 17:25 Urine Nitrite POSITIVE (NEGATIVE) H 06/02/22 17:25 Urine Bilirubin NEGATIVE (NEGATIVE) 06/02/22 17:25 Urine Urobilinogen 0.2 (NORMAL) E.U./dL (NORMAL) 06/02/22 17:25 Ur Leukocyte Esterase LARGE (NEGATIVE) H 06/02/22 17:25 Urine RBC 11-25 /HPF (0-5) H 06/02/22 17:25 Urine WBC >25 /HPF (0-5) H 06/02/22 17:25 Urine WBC Clumps PRESENT 06/02/22 17:25 Ur Squamous Epith Cells FEW Squamous (<= Few) 06/02/22 17:25 Urine Bacteria Many /HPF (None Seen) H 06/02/22 17:25 Ur Microscopic Review INDICATED 06/02/22 17:25 Urine Culture Comments INDICATED 06/02/22 17:25 SARS-CoV-2 (PCR) NOT DETECTED 06/05/22 17:53 - Procedures Procedures: Procedures INSPECTION OF UPPER INTESTINAL TRACT, ENDO (05/16/18) LOCAL EXCIS BREAST LES (04/01/15)
[2022-06-17] MEDS: MIRTAZAPINE 15 MG TABLET PO SCH (20:31)
[2022-06-18] MEDS: LIDOCAINE PATCH 5% TOP PRN (01:39)
[2022-06-18] MEDS: PANTOPRAZOLE 40 MG TABLET PO SCH (05:22)
[2022-06-18] MEDS: GABAPENTIN 300 MG CAPSULE PO SCH ×3 (05:22→21:56)
[2022-06-18 07:54] LABS: CALCIUM 8.8 mg/dL (8.5-10.3); CREATININE 0.8 mg/dL (0.4-1.0); MAGNESIUM 2.3 mg/dL (1.7-2.8); POTASSIUM 5.2 mmol/L (3.5-5.0)
[2022-06-18 08:01] LABS: BASOPHILS % (AUTO) 0.5 %; EOSINOPHILS # (AUTO) 0.1 10^3/uL (0.0-0.7); EOSINOPHILS % (AUTO) 1.8 %; HCT - HEMATOCRIT 31.3 % (37.0-47.0); HGB - HEMOGLOBIN 10.3 g/dL (12.0-16.0); LYMPHOCYTES # (AUTO) 1.8 10^3/uL (1.5-3.5); LYMPHOCYTES % (AUTO) 29.9 %; MEAN CORPUSCULAR HEMOGLOBIN 31.2 pg (27.0-31.0); MEAN CORPUSCULAR HGB CONC 32.9 g/dL (32.0-36.0); MEAN CORPUSCULAR VOLUME 94.8 fL (81.0-99.0); MEAN PLATELET VOLUME 9.8 fL (7.9-10.8); MONOCYTES # (AUTO) 0.6 10^3/uL (0.0-1.0); MONOCYTES % (AUTO) 10.2 %; NEUTROPHILS # (AUTO) 3.5 10^3/uL (1.5-6.6); NEUTROPHILS % (AUTO) 57.1 %; PLT - PLATELET COUNT 266 10^3/uL (130-450); RED CELL DISTRIBUTION WIDTH 14.8 % (12.0-15.0); WHITE BLOOD COUNT 6.1 x10^3/uL (4.8-10.8)
[2022-06-18] MEDS: MULTIVITAMIN W/MINERALS TABLET PO SCH (08:11)
[2022-06-18] MEDS: LOSARTAN 50 MG TABLET PO SCH (08:11)
[2022-06-18] MEDS: SACCHAROMYCES BOULARDII 250 MG CAPSULE PO SCH ×2 (08:12→16:55)
[2022-06-18] MEDS: APIXABAN 5 MG TABLET PO SCH ×2 (08:12→21:33)
[2022-06-18] MEDS: METOPROLOL TARTRATE 25 MG TABLET PO SCH ×2 (09:09→21:32)
--- NOTE | 2022-06-18 09:13 | PROVIDER PROGRESS NOTE ---
Assessment/Plan - Problem List (1) Hyponatremia Assessment/Plan: Given her weakness and 3 days of hypersomnolence noted, a set of morning labs was ordered and her BMP shows a sodium severely low at 124. Her medications were reviewed and none would be adding to hyponatremia. She had hyponatremia at admission therefore, I suspect this new Hyponatremia is from poor p.o. intake. We planned to give saline IV and recheck in 8 hours to assure it is not correcting too rapidly, however the pt refuses an iv restarted. Therefore will cancel the iv saline and q8h BMP labs. Will start daily salt tablet and also add new free water restriction to diet order. Follow BMP daily until Na stabilized. (2) Cognitive impairment Assessment/Plan: On 06/07/22, she underwent cognitive eval and scored 14/30, indicating moderate cognitive impairment. This is likely from her old stroke. This makes her impulsive. She does work with OT to stay functional and is redirectable, communicates well, follows directions. She still claims she would be OK living in a tent with her son, who is homeless, until recently, when she had a comment to OT that "she would be too cold in a tent". We are looking for placement for her. (3) History of CVA (cerebrovascular accident) Assessment/Plan: The old CVA likely caused cognitive impairment and makes her impulsive. Iimpulsivity was documented by OT, but has improved. She does ambulate on her room and was discharged already from PT since she met her goals. (4) Homeless family Conclusion/Plan: An APS report has been filed according to the notes since she has presented to the ED. She described the plan is to have the son set up a "high-end" tent at friend's backyard where she and the son would live. She says she will go by wheelchair into the friend's house for toileting. Occupational Therapy saw the patient. She does participate in the occupational therapy session and completes transitional movements with slightly decreased impulsivity and improved self-care task such as eating and grooming requiring fewer multimodal cues. Her overall Cognitive score by HOUSTON scruggs was 14 out of 30. Physical therapy has completed working with her. She was impulsive, requiring contact-guard assist with gait and transfers using gait belt. On June 08 we prepared the patient for discharge. She was to go to this "tent" in her son's friend's backyard. The son then spoke to social work to let them know that that is no longer possible. He is not being allowed to use that backyard. As such discharge was canceled. The son has agreed to placement for her and we are now looking for a discharge facility for her. Today is another avoidable day. Social work will continue to work with son, and facilities to see where she could go live. Son is the payee on the patient's Social Security money. He may be reluctant to let her go since he uses that money to live off of. (5) Hx of coronary artery disease Conclusion/Plan: We are continuing with her usual prescription meds for this, which is B-michelet, ARB, prn sl NTG and her anti-coagulant, since she is not on an anti-plt agent. (6) COPD without exacerbation (J44.9) Conclusion/Plan: She is not in exacerbation We will continue with her usual prescription meds for this, which is just inhaler use prn wheezing No change (7) History of blood clots Conclusion/Plan: Her medication list, which has been reconciled, shows she is on Eliquis 5 mg twice daily. This is not for A. fib, CAD or her stroke Hx. 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 Will continue Eliquis. This will qualify as her DVT prophylaxis. (8) E. coli UTI, treated Impression: Her U/A was abn at presentation on 06/02/22. Then on 06/03/2022 in the ED, she had a positive urine culture, growing Ecoli and she was started on oral Macrobid. She was given Rocephin on June 02, then started on p.o. Macrobid. She received Macrobid on the . On the she received Rocephin again as well as Keflex. On the she received ceftriaxone and vancomycin. And on the she has been back on ceftriaxone consistently. On June 08 she had 7 days of combined IV and oral antibiotic therapy. As such antibiotics were stopped after completion June 08. She has been an avoidable days since June 07. (9) Conjunctivitis, resolved Conclusion/Plan: This was the initial presenting symptom with crusting, crusted shut and swollen eyelids. I suspect this may also have spread to the facial cellulitis. There is no further swelling or crusting, and less redness and pain As of the . Eyedrops completed Qualifiers: Conjunctivitis type: acute Acute conjunctivitis type: bacterial Laterality: bilateral Qualified Code(s): H10.33 - Unspecified acute conjunctivitis, bilateral (10) Facial cellulitis, resolved Conclusion/Plan: Resolved. This was described in the ED note. (11) Contamination of blood culture (R79.9) Conclusion/Plan: Patient had a fever while boarding in ED and blood cultures were drawn then, these blood cultures turned positive growing gram-positive cocci. She had some face swelling reported by ED provider and thought to have facial cellulitis. It was thought to be source of her bacteremia. Since she is homeless, and her exposures are to unknown organisms therefore she is at risk for MRSA, so Vanco was started and Macrobid changed to Rocephin. We started a probiotic. Lactic Acid level ordered to check for sepsis. Maintenance iv fluids were given We michelle a repeat set of blood cultures, on the combined antibiotics, to assure there is no future bacterial growth. And those were negative. That blood culture result has been finalized using PCR and it is Staph epidermis which is a contaminant. We stopped the Vanco. We decrease Rocephin for UTI, and recognized she had no bacteremia and that the bacterial growth showed up 3 days after culture done.It grew staph epidermidis from a June 04 blood culture. We think this is contaminant. She was ordered to get an Echocardiogram to evaluate for endocarditis, but we cancelled this. - Current Meds Current Meds: Current Medications Generic Name Dose Route Start Last Admin Trade Name Freq PRN Reason Stop Dose Admin Acetaminophen 650 mg 06/05/22 17:41 06/17/22 17:04 Acetaminophen 325 Mg Tablet PO 650 mg Q4HR PRN Administration Pain 1 to 4, or Fever Apixaban 5 mg 06/03/22 21:00 06/18/22 08:12 Apixaban 5 Mg Tablet PO 5 mg BID DENILSON Administration Carboxymethylcellulose 1 drops 06/12/22 15:42 06/15/22 17:08 Carboxymethylcellulose Ophth Drops EACHEYE 1 drops PRN PRN Administration Dry Eye Gabapentin 300 mg 06/15/22 10:00 06/18/22 05:22 Gabapentin 300 Mg Capsule PO 300 mg TID DENILSON Administration Lidocaine 1 patch 06/13/22 16:11 06/18/22 01:39 Lidocaine Patch 5% TOP 1 patch DAILY PRN Administration PAIN Losartan Potassium 25 mg 06/03/22 13:00 06/18/22 08:11 Losartan 50 Mg Tablet PO 25 mg DAILY DENILSON Administration Metoprolol Tartrate 25 mg 06/14/22 21:00 06/18/22 09:09 Metoprolol Tartrate 25 Mg Tablet PO Not Given BID DENILSON Mirtazapine 15 mg 06/03/22 21:00 06/17/22 20:31 Mirtazapine 15 Mg Tablet PO 15 mg QPM DENILSON Administration Multivitamins/Minerals 1 tab 06/15/22 08:00 06/18/22 08:11 Multivitamin W/Minerals Tablet PO 1 tab DAILYWM DENILSON Administration Pantoprazole Sodium 40 mg 06/07/22 07:00 06/18/22 05:22 Pantoprazole 40 Mg Tablet PO 40 mg QDAC DENILSON Administration Saccharomyces Boulardii 250 mg 06/06/22 08:00 06/18/22 08:12 Saccharomyces Boulardii 250 Mg Capsule PO 250 mg BIDWM DENILSON Administration - Lab Result Fish Bone Diagrams: 06/18/22 07:20 06/18/22 07:20 - Additional Planning My Orders: My Active Orders 06/18/22 10:00 Sodium Chloride 0.9% [Normal Saline 0.9%] 1,000 ml IV 60 mls/hr Subjective - Subjective Patient Reports: Resting Comfortably, No Complaints Objective Vital Signs: Vital Signs - 24 hr 06/17/22 06/17/22 06/18/22 16:01 20:28 00:11 Temperature 36.6 C 36.6 C Heart Rate [ 70 57 L 70 Brachial] Respiratory 20 14 Rate Blood Pressure 126/65 132/54 H 123/53 L [Right Brachial artery] O2 Saturation 97 96 Oxygen O2 Source Room air I&O (Last 24 Hrs): Intake and Output Totals x24h 06/16/22 06/17/22 06/18/22 23:59 23:59 23:59 Intake Total 2120 2307 740 Output Total 1700 3125 1750 Balance 420 -818 -1010 General: Other (Somnolent, awakens and speaks and eats and walks) HEENT: Mucous membr. moist/pink Neck: No JVD Neuro: Alert, Disoriented Cardiovascular: Regular rate Respiratory: No respiratory distress Abdomen: Soft Extremities: No edema - Results Results: Laboratory Results WBC 6.1 x10^3/uL (4.8-10.8) 06/18/22 07:20 RBC 3.30 10^6/uL (4.20-5.40) L 06/18/22 07:20 Hgb 10.3 g/dL (12.0-16.0) L 06/18/22 07:20 Hct 31.3 % (37.0-47.0) L 06/18/22 07:20 MCV 94.8 fL (81.0-99.0) 06/18/22 07:20 MCH 31.2 pg (27.0-31.0) H 06/18/22 07:20 MCHC 32.9 g/dL (32.0-36.0) 06/18/22 07:20 RDW 14.8 % (12.0-15.0) 06/18/22 07:20 Plt Count 266 10^3/uL (130-450) 06/18/22 07:20 MPV 9.8 fL (7.9-10.8) 06/18/22 07:20 Neut # (Auto) 3.5 10^3/uL (1.5-6.6) 06/18/22 07:20 Lymph # (Auto) 1.8 10^3/uL (1.5-3.5) 06/18/22 07:20 [place] # (Auto) 0.6 10^3/uL (0.0-1.0) 06/18/22 07:20 Eos # (Auto) 0.1 10^3/uL (0.0-0.7) 06/18/22 07:20 Baso # (Auto) 0.0 10^3/uL (0.0-0.1) 06/18/22 07:20 Absolute Nucleated RBC 0.00 x10^3/uL 06/18/22 07:20 Nucleated RBC % 0.0 /100WBC 06/18/22 07:20 Sodium 124 mmol/L (135-145) L 06/18/22 07:20 Potassium 5.2 mmol/L (3.5-5.0) H 06/18/22 07:20 Chloride 91 mmol/L (101-111) L 06/18/22 07:20 Carbon Dioxide 27 mmol/L (21-32) 06/18/22 07:20 Anion Gap 6.0 (6-13) 06/18/22 07:20 BUN 35 mg/dL (6-20) H 06/18/22 07:20 Creatinine 0.8 mg/dL (0.4-1.0) 06/18/22 07:20 Estimated GFR (MDRD) 68 (>89) L 06/18/22 07:20 Glucose 79 mg/dL (70-100) 06/18/22 07:20 Lactic Acid 1.7 mmol/L (0.5-2.2) 06/06/22 09:00 Calcium 8.8 mg/dL (8.5-10.3) 06/18/22 07:20 Magnesium 2.3 mg/dL (1.7-2.8) 06/18/22 07:20 Total Bilirubin 0.8 mg/dL (0.2-1.0) 06/04/22 14:40 AST 19 IU/L (10-42) 06/04/22 14:40 ALT 12 IU/L (10-60) 06/04/22 14:40 Alkaline Phosphatase 87 IU/L (42-121) 06/04/22 14:40 C-Reactive Protein 4.9 mg/dL (0-1.0) H 06/07/22 06:12 Total Protein 7.5 g/dL (6.7-8.2) 06/04/22 14:40 Albumin 3.8 g/dL (3.2-5.5) 06/04/22 14:40 Globulin 3.7 g/dL (2.1-4.2) 06/04/22 14:40 Albumin/Globulin Ratio 1.0 (1.0-2.2) 06/04/22 14:40 Lipase 28 U/L (22-51) 06/04/22 14:40 Urine Color YELLOW 06/02/22 17:25 Urine Clarity HAZY (CLEAR) 06/02/22 17:25 Urine pH 7.0 PH (5.0-7.5) 06/02/22 17:25 Ur Specific [place] <=1.005 (1.002-1.030) 06/02/22 17:25 Urine Protein NEGATIVE mg/dL (NEGATIVE) 06/02/22 17:25 Urine Glucose (UA) NEGATIVE mg/dL (NEGATIVE) 06/02/22 17:25 Urine Ketones NEGATIVE mg/dL (NEGATIVE) 06/02/22 17:25 Urine Occult Blood MODERATE (NEGATIVE) H 06/02/22 17:25 Urine Nitrite POSITIVE (NEGATIVE) H 06/02/22 17:25 Urine Bilirubin NEGATIVE (NEGATIVE) 06/02/22 17:25 Urine Urobilinogen 0.2 (NORMAL) E.U./dL (NORMAL) 06/02/22 17:25 Ur Leukocyte Esterase LARGE (NEGATIVE) H 06/02/22 17:25 Urine RBC 11-25 /HPF (0-5) H 06/02/22 17:25 Urine WBC >25 /HPF (0-5) H 06/02/22 17:25 Urine WBC Clumps PRESENT 06/02/22 17:25 Ur Squamous Epith Cells FEW Squamous (<= Few) 06/02/22 17:25 Urine Bacteria Many /HPF (None Seen) H 06/02/22 17:25 Ur Microscopic Review INDICATED 06/02/22 17:25 Urine Culture Comments INDICATED 06/02/22 17:25 SARS-CoV-2 (PCR) NOT DETECTED 06/05/22 17:53 - Procedures Procedures: Procedures INSPECTION OF UPPER INTESTINAL TRACT, ENDO (05/16/18) LOCAL EXCIS BREAST LES (04/01/15)
[2022-06-18] MEDS ORDERED: SODIUM CHLORIDE 0.9% 1,000 ML IV SCH (10:00)
[2022-06-18] MEDS: SODIUM CHLORIDE 1 GM TABLET PO SCH (11:56)
[2022-06-18] MEDS: ACETAMINOPHEN 325 MG TABLET PO PRN (13:24)
[2022-06-18] MEDS: MIRTAZAPINE 15 MG TABLET PO SCH (21:33)
[2022-06-19] MEDS: ACETAMINOPHEN 325 MG TABLET PO PRN (01:26)
[2022-06-19] MEDS: GABAPENTIN 300 MG CAPSULE PO SCH ×3 (05:38→20:59)
[2022-06-19] MEDS: PANTOPRAZOLE 40 MG TABLET PO SCH (05:38)
[2022-06-19 06:00] LABS: CALCIUM 8.9 mg/dL (8.5-10.3); CREATININE 0.7 mg/dL (0.4-1.0); POTASSIUM 5.7 mmol/L (3.5-5.0)
[2022-06-19] MEDS: METOPROLOL TARTRATE 25 MG TABLET PO SCH ×2 (08:39→20:58)
[2022-06-19] MEDS: SACCHAROMYCES BOULARDII 250 MG CAPSULE PO SCH ×2 (08:39→16:52)
[2022-06-19] MEDS: MULTIVITAMIN W/MINERALS TABLET PO SCH (08:40)
[2022-06-19] MEDS: LOSARTAN 50 MG TABLET PO SCH (08:40)
[2022-06-19] MEDS: SODIUM CHLORIDE 1 GM TABLET PO SCH (08:40)
[2022-06-19] MEDS: APIXABAN 5 MG TABLET PO SCH ×2 (08:41→20:59)
[2022-06-19] MEDS: IBUPROFEN 400 MG TABLET PO PRN ×2 (13:35→20:58)
--- NOTE | 2022-06-19 17:31 | PROVIDER PROGRESS NOTE ---
Assessment/Plan - Problem List (1) Hyponatremia Assessment/Plan: Given her weakness and several days of hypersomnolence noted, a set of morning labs was ordered and her BMP showed a sodium severely low at 124. Her medications were I had ordered to give saline IV and recheck Sodium in 8 hours to assure it is not correcting too rapidly, however the pt refused an iv restarted yesterday. Therefore will cancelled the iv saline and q8h BMP labs. We started daily salt tablet and also started a free water restriction, adding this to her diet order. Follow BMP daily until Na stabilized and to assure no dehydration per BUN/creat. (2) Cognitive impairment Assessment/Plan: On 06/07/22, she underwent cognitive eval and scored 14/30, indicating moderate cognitive impairment. This is likely from her old stroke. This made her impulsive. She does work with OT to stay functional and is redirectable, communicates well, follows directions. She still wanted to live in a tent with her son, who is homeless, until recently, when she had a comment to OT that "she would be too cold in a tent". We are looking for placement for her. However, according to SW, [facility] were interested in accepting her, but the son would not give consent to this. Since he has no address, because he is homeless, we cannot mail him a HIN letter and he refuses to come here, to be able to give him a HIN letter. This difficult placement issue may need attention from the legal dept here, since today is another avoidable day. (3) History of CVA (cerebrovascular accident) Assessment/Plan: The old CVA likely caused cognitive impairment and makes her impulsive. Iimpulsivity was documented by OT, but has improved. She does ambulate on her room and was discharged already from PT since she met her goals. (4) Homeless family Conclusion/Plan: An APS report has been filed according to the notes, when she was brought into the ED by her son, who has then refused to come get her. She described the plan was to have the son set up a "high-end" tent at friend's backyard where she and the son would live. She says she wcouldgo by wheelchair into the friend's house for toileting. Occupational Therapy saw the patient. She does participate in the occupational therapy session and completes transitional movements with slightly decreased impulsivity and improved self-care task such as eating and grooming requiring fewer multimodal cues. Her overall Cognitive score by [facility]STON scruggs was 14 out of 30. Physical therapy has completed working with her. She was impulsive, requiring contact-guard assist with gait and transfers using gait belt. On June 08 we prepared the patient for discharge. She was to go to this "t ent" in her son's friend's backyard. The son then spoke to social work to let them know that that is no longer possible. He is not being allowed to use that backyard. As such discharge was canceled. The son has agreed to placement for her and we are now looking for a discharge facility for her. However, according to SW, [facility] were interested in accepting her, but the son would not give consent to this. Since he has no address, because he is homeless, we cannot mail him a HIN letter and he refuses to come here, to be able to give him a HIN letter. This difficult placement issue may need attention from the legal dept here, since today is another avoidable day. Social work will continue to work with son, and facilities to see where she could go live. Son is the payee on the patient's Social Security money. He may be reluctant to let her go since he personally uses that money to live off of. (5) Hx of coronary artery disease Conclusion/Plan: We are continuing with her usual prescription meds for this, which is B-michelet, ARB, prn sl NTG and her anti-coagulant, since she is not on an anti-plt agent. (6) COPD without exacerbation (J44.9) Conclusion/Plan: She is not in exacerbation We will continue with her usual prescription meds for this, which is just inhaler use prn wheezing No change (7) History of blood clots Conclusion/Plan: Her medication list, which has been reconciled, shows she is on Eliquis 5 mg twice daily. This is not for A. fib, CAD or her stroke Hx. 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 Will continue Eliquis. This will qualify as her DVT prophylaxis. (8) E. coli UTI, treated Impression: Her U/A was abn at presentation on 06/02/22. Then on 06/03/2022 in the ED, she had a positive urine culture, growing Ecoli and she was started on oral Macrobid. She was given Rocephin on June 02, then started on p.o. Macrobid. She received Macrobid on the . On the she received Rocephin again as well as Keflex. On the she received ceftriaxone and vancomycin. And on the she has been back on ceftriaxone consistently. On June 08 she had 7 days of combined IV and oral antibiotic therapy. As such antibiotics were stopped after completion June 08. She has been an avoidable days since June 07. (9) Conjunctivitis, resolved Conclusion/Plan: This was the initial presenting symptom with crusting, crusted shut and swollen eyelids. I suspect this may also have spread to the facial cellulitis. There is no further swelling or crusting, and less redness and pain As of the . Eyedrops completed Qualifiers: Conjunctivitis type: acute Acute conjunctivitis type: bacterial Laterality: bilateral Qualified Code(s): H10.33 - Unspecified acute conjunctivitis, bilateral (10) Facial cellulitis, resolved Conclusion/Plan: Resolved. This was described in the ED note. (11) Contamination of blood culture (R79.9) Conclusion/Plan: Patient had a fever while boarding in ED and blood cultures were drawn then, these blood cultures turned positive growing gram-positive cocci. She had some face swelling reported by ED provider and thought to have facial cellulitis. It was thought to be source of her bacteremia. Since she is homeless, and her exposures are to unknown organisms therefore she is at risk for MRSA, so Vanco was started and Macrobid changed to Rocephin. We started a probiotic. Lactic Acid level ordered to check for sepsis. Maintenance iv fluids were given We michelle a repeat set of blood cultures, on the combined antibiotics, to assure there is no future bacterial growth. And those were negative. That blood culture result has been finalized using PCR and it is Staph epidermis which is a contaminant. We stopped the Vanco. We decrease Rocephin for UTI, and recognized she had no bacteremia and that the bacterial growth showed up 3 days after culture done.It grew staph epidermidis from a June 04 blood culture. We think this is contaminant. She was ordered to get an Echocardiogram to evaluate for endocarditis, but we cancelled this. - Current Meds Current Meds: Current Medications Generic Name Dose Route Start Last Admin Trade Name Leah PRN Reason Stop Dose Admin Apixaban 5 mg 06/03/22 21:00 06/19/22 08:41 Apixaban 5 Mg Tablet PO 5 mg BID DENILSON Administration Carboxymethylcellulose 1 drops 06/12/22 15:42 06/15/22 17:08 Carboxymethylcellulose Ophth Drops EACHEYE 1 drops PRN PRN Administration Dry Eye Gabapentin 300 mg 06/15/22 10:00 06/19/22 13:35 Gabapentin 300 Mg Capsule PO 300 mg TID DENILSON Administration Ibuprofen 400 mg 06/19/22 12:11 06/19/22 13:35 Ibuprofen 400 Mg Tablet PO 400 mg Q6HR PRN Administration PAIN Lidocaine 1 patch 06/13/22 16:11 06/18/22 01:39 Lidocaine Patch 5% TOP 1 patch DAILY PRN Administration PAIN Losartan Potassium 25 mg 06/03/22 13:00 06/19/22 08:40 Losartan 50 Mg Tablet PO 25 mg DAILY DENILSON Administration Metoprolol Tartrate 25 mg 06/14/22 21:00 06/19/22 08:39 Metoprolol Tartrate 25 Mg Tablet PO Not Given BID DENILSON Mirtazapine 15 mg 06/03/22 21:00 06/18/22 21:33 Mirtazapine 15 Mg Tablet PO 15 mg QPM DENILSON Administration Multivitamins/Minerals 1 tab 06/15/22 08:00 06/19/22 08:40 Multivitamin W/Minerals Tablet PO 1 tab DAILYWM DENILSON Administration Pantoprazole Sodium 40 mg 06/07/22 07:00 06/19/22 05:38 Pantoprazole 40 Mg Tablet PO 40 mg QDAC DENILSON Administration Saccharomyces Boulardii 250 mg 06/06/22 08:00 06/19/22 16:52 Saccharomyces Boulardii 250 Mg Capsule PO 250 mg BIDWM DENILSON Administration Sodium Chloride 1 gm 06/18/22 12:00 06/19/22 08:40 Sodium Chloride 1 Gm Tablet PO 1 gm DAILY DENILSON Administration - Lab Result Fish Bone Diagrams: 06/18/22 07:20 06/19/22 05:15 - Additional Planning My Orders: My Active Orders 06/19/22 12:11 Ibuprofen [Motrin] 400 mg PO Q6HR PRN 06/20/22 05:00 BMP - BASIC METABOLIC PANEL [CHEM] DAILYLAB 06/21/22 05:00 BMP - BASIC METABOLIC PANEL [CHEM] DAILYLAB Subjective - Subjective Patient Reports: Resting Comfortably, No Complaints Objective Vital Signs: Vital Signs - 24 hr 06/18/22 06/19/22 06/19/22 21:32 01:24 08:04 Temperature 36.3 C L 36.4 C L Heart Rate [ 63 60 Brachial] Respiratory 16 16 Rate Blood Pressure 140/58 H Blood Pressure 113/44 L 148/43 H [Right Brachial artery] O2 Saturation 96 98 06/19/22 15:46 Temperature 36.9 C Heart Rate [ 76 Brachial] Respiratory 20 Rate Blood Pressure Blood Pressure 165/52 H [Right Brachial artery] O2 Saturation 95 Oxygen O2 Source Room air I&O (Last 24 Hrs): Intake and Output Totals x24h 06/17/22 06/18/22 06/19/22 23:59 23:59 23:59 Intake Total 2307 2120 950 Output Total 3125 2900 1350 Balance -818 -780 -400 General: Other (sleepy, sitting in chair) HEENT: Mucous membr. moist/pink Neck: Supple Neuro: Alert, Disoriented Cardiovascular: Regular rate Respiratory: No respiratory distress Abdomen: Soft Extremities: No edema - Results Results: Laboratory Results WBC 6.1 x10^3/uL (4.8-10.8) 06/18/22 07:20 RBC 3.30 10^6/uL (4.20-5.40) L 06/18/22 07:20 Hgb 10.3 g/dL (12.0-16.0) L 06/18/22 07:20 Hct 31.3 % (37.0-47.0) L 06/18/22 07:20 MCV 94.8 fL (81.0-99.0) 06/18/22 07:20 MCH 31.2 pg (27.0-31.0) H 06/18/22 07:20 MCHC 32.9 g/dL (32.0-36.0) 06/18/22 07:20 RDW 14.8 % (12.0-15.0) 06/18/22 07:20 Plt Count 266 10^3/uL (130-450) 06/18/22 07:20 MPV 9.8 fL (7.9-10.8) 06/18/22 07:20 Neut # (Auto) 3.5 10^3/uL (1.5-6.6) 06/18/22 07:20 Lymph # (Auto) 1.8 10^3/uL (1.5-3.5) 06/18/22 07:20 [place] # (Auto) 0.6 10^3/uL (0.0-1.0) 06/18/22 07:20 Eos # (Auto) 0.1 10^3/uL (0.0-0.7) 06/18/22 07:20 Baso # (Auto) 0.0 10^3/uL (0.0-0.1) 06/18/22 07:20 Absolute Nucleated RBC 0.00 x10^3/uL 06/18/22 07:20 Nucleated RBC % 0.0 /100WBC 06/18/22 07:20 Sodium 128 mmol/L (135-145) L 06/19/22 05:15 Potassium 5.7 mmol/L (3.5-5.0) H 06/19/22 05:15 Chloride 93 mmol/L (101-111) L 06/19/22 05:15 Carbon Dioxide 27 mmol/L (21-32) 06/19/22 05:15 Anion Gap 8.0 (6-13) 06/19/22 05:15 BUN 33 mg/dL (6-20) H 06/19/22 05:15 Creatinine 0.7 mg/dL (0.4-1.0) 06/19/22 05:15 Estimated GFR (MDRD) 80 (>89) L 06/19/22 05:15 Glucose 87 mg/dL (70-100) 06/19/22 05:15 Lactic Acid 1.7 mmol/L (0.5-2.2) 06/06/22 09:00 Calcium 8.9 mg/dL (8.5-10.3) 06/19/22 05:15 Magnesium 2.3 mg/dL (1.7-2.8) 06/18/22 07:20 Total Bilirubin 0.8 mg/dL (0.2-1.0) 06/04/22 14:40 AST 19 IU/L (10-42) 06/04/22 14:40 ALT 12 IU/L (10-60) 06/04/22 14:40 Alkaline Phosphatase 87 IU/L (42-121) 06/04/22 14:40 C-Reactive Protein 4.9 mg/dL (0-1.0) H 06/07/22 06:12 Total Protein 7.5 g/dL (6.7-8.2) 06/04/22 14:40 Albumin 3.8 g/dL (3.2-5.5) 06/04/22 14:40 Globulin 3.7 g/dL (2.1-4.2) 06/04/22 14:40 Albumin/Globulin Ratio 1.0 (1.0-2.2) 06/04/22 14:40 Lipase 28 U/L (22-51) 06/04/22 14:40 Urine Color YELLOW 06/02/22 17:25 Urine Clarity HAZY (CLEAR) 06/02/22 17:25 Urine pH 7.0 PH (5.0-7.5) 06/02/22 17:25 Ur Specific [place] <=1.005 (1.002-1.030) 06/02/22 17:25 Urine Protein NEGATIVE mg/dL (NEGATIVE) 06/02/22 17:25 Urine Glucose (UA) NEGATIVE mg/dL (NEGATIVE) 06/02/22 17:25 Urine Ketones NEGATIVE mg/dL (NEGATIVE) 06/02/22 17:25 Urine Occult Blood MODERATE (NEGATIVE) H 06/02/22 17:25 Urine Nitrite POSITIVE (NEGATIVE) H 06/02/22 17:25 Urine Bilirubin NEGATIVE (NEGATIVE) 06/02/22 17:25 Urine Urobilinogen 0.2 (NORMAL) E.U./dL (NORMAL) 06/02/22 17:25 Ur Leukocyte Esterase LARGE (NEGATIVE) H 06/02/22 17:25 Urine RBC 11-25 /HPF (0-5) H 06/02/22 17:25 Urine WBC >25 /HPF (0-5) H 06/02/22 17:25 Urine WBC Clumps PRESENT 06/02/22 17:25 Ur Squamous Epith Cells FEW Squamous (<= Few) 06/02/22 17:25 Urine Bacteria Many /HPF (None Seen) H 06/02/22 17:25 Ur Microscopic Review INDICATED 06/02/22 17:25 Urine Culture Comments INDICATED 06/02/22 17:25 SARS-CoV-2 (PCR) NOT DETECTED 06/05/22 17:53 - Procedures Procedures: Procedures INSPECTION OF UPPER INTESTINAL TRACT, ENDO (05/16/18) LOCAL EXCIS BREAST LES (04/01/15)
[2022-06-19] MEDS: MIRTAZAPINE 15 MG TABLET PO SCH (20:58)
[2022-06-19] MEDS: LIDOCAINE PATCH 5% TOP PRN (23:56)
[2022-06-20 05:15] LABS: CALCIUM 8.9 mg/dL (8.5-10.3); CREATININE 0.7 mg/dL (0.4-1.0); POTASSIUM 5.8 mmol/L (3.5-5.0)
[2022-06-20] MEDS: PANTOPRAZOLE 40 MG TABLET PO SCH (05:18)
[2022-06-20] MEDS: GABAPENTIN 300 MG CAPSULE PO SCH ×3 (05:18→21:22)
[2022-06-20] MEDS ORDERED: SODIUM POLYSTYRENE SULFONATE 15 GM/60 ML BOTTLE PO ONE (08:43)
[2022-06-20] MEDS ORDERED: SODIUM CHLORIDE 0.9% 500 ML IV ONE (08:44)
[2022-06-20] MEDS: SODIUM CHLORIDE 1 GM TABLET PO SCH (09:03)
[2022-06-20] MEDS: SACCHAROMYCES BOULARDII 250 MG CAPSULE PO SCH ×2 (09:04→17:10)
[2022-06-20] MEDS: LOSARTAN 50 MG TABLET PO SCH (09:04)
[2022-06-20] MEDS: APIXABAN 5 MG TABLET PO SCH ×2 (09:04→21:22)
[2022-06-20] MEDS: MULTIVITAMIN W/MINERALS TABLET PO SCH (09:04)
[2022-06-20] MEDS: METOPROLOL TARTRATE 25 MG TABLET PO SCH ×2 (09:05→21:22)
--- NOTE | 2022-06-20 13:35 | PROVIDER PROGRESS NOTE ---
Assessment/Plan - Problem List (1) Hyponatremia Assessment/Plan: Given her weakness and several days of hypersomnolence noted, a set of morning labs was ordered and her BMP showed a sodium severely low at 124 2 days ago. I had ordered to give saline IV and recheck Sodium in 8 hours to assure it is not correcting too rapidly, however the pt refused an iv restarted. Therefore we cancelled the iv saline and q8h BMP labs. We started daily salt tablet and also started a free water restriction, adding this to her diet order. Since the daily serum sodium is not correcting and she is developing pre-renal azotemia with hyperkalemia, I have not convinced her to get saline with IV restart today. 2) Pre-renal azotemia Due to inadequate fluid intake p.o. See plan and #1 3) Hyperkalemia Likely due to her volume depletion. Will give Kayexalate today. Follow BMP daily. (4) Cognitive impairment Assessment/Plan: On 06/07/22, she underwent cognitive eval and scored 14/30, indicating moderate cognitive impairment. This is likely from her old stroke. This made her impulsive. She does work with OT to stay functional and is redirectable, communicates well, follows directions. She still wanted to live in a tent with her son, who is homeless, until recently, when she had a comment to OT that "she would be too cold in a tent". We are looking for placement for her. However, according to SW, [facility] were interested in accepting her, but the son would not give consent to this. Since he has no address, because he is homeless, we cannot mail him a HIN letter and he refuses to come here, to be able to give him a HIN letter. This difficult placement issue may need attention from the legal dept here (5) History of CVA (cerebrovascular accident) Assessment/Plan: The old CVA likely caused cognitive impairment and makes her impulsive. Iimpulsivity was documented by OT, but has improved. She does ambulate on her room and was discharged already from PT since she met her goals. (6) Homeless family Conclusion/Plan: An APS report has been filed according to the notes, when she was brought into the ED by her son, who has then refused to come get her. She described the plan was to have the son set up a "high-end" tent at friend's backyard where she and the son would live. She says she wcouldgo by wheelchair into the friend's house for toileting. Occupational Therapy saw the patient. She does participate in the occupational therapy session and completes transitional movements with slightly decreased impulsivity and improved self-care task such as eating and grooming requiring fewer multimodal cues. Her overall Cognitive score by HOUSTON scruggs was 14 out of 30. Physical therapy has completed working with her. She was impulsive, req uiring contact-guard assist with gait and transfers using gait belt. On June 08 we prepared the patient for discharge. She was to go to this "tent" in her son's friend's backyard. The son then spoke to social work to let them know that that is no longer possible. He is not being allowed to use that backyard. As such discharge was canceled. The son has agreed to placement for her and we are now looking for a discharge facility for her. However, according to SW, [facility] were interested in accepting her, but the son would not give consent to this. Since he has no address, because he is homeless, we cannot mail him a HIN letter and he refuses to come here, to be able to give him a HIN letter. This difficult placement issue may need attention from the legal dept here Social work will continue to work with son, and facilities to see where she could go live. Son is the payee on the patient's Social Security money. He may be reluctant to let her go since he personally uses that money to live off of. (7) Hx of coronary artery disease Conclusion/Plan: We are continuing with her usual prescription meds for this, which is B-michelet, ARB, prn sl NTG and her anti-coagulant, since she is not on an anti-plt agent. (8) COPD without exacerbation (J44.9) Conclusion/Plan: She is not in exacerbation We will continue with her usual prescription meds for this, which is just inhaler use prn wheezing No change (9) History of blood clots Conclusion/Plan: Her medication list, which has been reconciled, shows she is on Eliquis 5 mg twice daily. This is not for A. fib, CAD or her stroke Hx. 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 Will continue Eliquis. This will qualify as her DVT prophylaxis. (10) E. coli UTI, treated Impression: Her U/A was abn at presentation on 06/02/22. Then on 06/03/2022 in the ED, she had a positive urine culture, growing Ecoli and she was started on oral Macrobid. She was given Rocephin on June 02, then started on p.o. Macrobid. She received Macrobid on the . On the she received Rocephin again as well as Keflex. On the she received ceftriaxone and vancomycin. And on the she has been back on ceftriaxone consistently. On June 08 she had 7 days of combined IV and oral antibiotic therapy. As such antibiotics were stopped after completion June 08. She has had avoidable days intermittently since June 07. (11) Conjunctivitis, resolved Conclusion/Plan: This was the initial presenting symptom with crusting, crusted shut and swollen eyelids. I suspect this may also have spread to the facial cellulitis. There is no further swelling or crusting, and less redness and pain As of the . Eyedrops completed Qualifiers: Conjunctivitis type: acute Acute conjunctivitis type: bacterial Laterality: bilateral Qualified Code(s): H10.33 - Unspecified acute conjunctivitis, bilateral (12) Facial cellulitis, resolved Conclusion/Plan: Resolved. This was described in the ED note. (13) Contamination of blood culture (R79.9) Conclusion/Plan: Patient had a fever while boarding in ED and blood cultures were drawn then, these blood cultures turned positive growing gram-positive cocci. We michelle a repeat set of blood cultures, on the combined antibiotics, to assure there is no future bacterial growth. And those were negative. That blood culture result has been finalized using PCR and it is Staph epidermis which is a contaminant. - Current Meds Current Meds: Current Medications Generic Name Dose Route Start Last Admin Trade Name Freq PRN Reason Stop Dose Admin Apixaban 5 mg 06/03/22 21:00 06/20/22 09:04 Apixaban 5 Mg Tablet PO 5 mg BID DENILSON Administration Carboxymethylcellulose 1 drops 06/12/22 15:42 06/15/22 17:08 Carboxymethylcellulose Ophth Drops EACHEYE 1 drops PRN PRN Administration Dry Eye Gabapentin 300 mg 06/15/22 10:00 06/20/22 05:18 Gabapentin 300 Mg Capsule PO 300 mg TID DENILSON Administration Ibuprofen 400 mg 06/19/22 12:11 06/19/22 20:58 Ibuprofen 400 Mg Tablet PO 400 mg Q6HR PRN Administration PAIN Lidocaine 1 patch 06/13/22 16:11 06/19/22 23:56 Lidocaine Patch 5% TOP 1 patch DAILY PRN Administration PAIN Losartan Potassium 25 mg 06/03/22 13:00 06/20/22 09:04 Losartan 50 Mg Tablet PO 25 mg DAILY DENILSON Administration Metoprolol Tartrate 25 mg 06/14/22 21:00 06/20/22 09:05 Metoprolol Tartrate 25 Mg Tablet PO Not Given BID DENILSON Mirtazapine 15 mg 06/03/22 21:00 06/19/22 20:58 Mirtazapine 15 Mg Tablet PO 15 mg QPM DENILSON Administration Multivitamins/Minerals 1 tab 06/15/22 08:00 06/20/22 09:04 Multivitamin W/Minerals Tablet PO 1 tab DAILYWM DENILSON Administration Pantoprazole Sodium 40 mg 06/07/22 07:00 06/20/22 05:18 Pantoprazole 40 Mg Tablet PO 40 mg QDAC DENILSON Administration Saccharomyces Boulardii 250 mg 06/06/22 08:00 06/20/22 09:04 Saccharomyces Boulardii 250 Mg Capsule PO 250 mg BIDWM DENILSON Administration Sodium Chloride 1 gm 06/18/22 12:00 06/20/22 09:03 Sodium Chloride 1 Gm Tablet PO 1 gm DAILY DENILSON Administration - Lab Result Fish Bone Diagrams: 06/18/22 07:20 06/20/22 04:40 - Additional Planning My Orders: My Active Orders 06/20/22 13:00 Sodium Chloride 0.9% [Normal Saline 0.9%] 1,000 ml IV 83.333 mls/hr 06/21/22 05:00 BMP - BASIC METABOLIC PANEL [CHEM] DAILYLAB Subjective - Subjective Patient Reports: Resting Comfortably, No Complaints Nursing Reports: Other (Not as somnolent as the past 3 days) Objective Vital Signs: Vital Signs - 24 hr 06/19/22 06/19/22 06/19/22 15:46 20:56 20:58 Temperature 36.9 C Heart Rate [ 76 87 Brachial] Respiratory 20 Rate Blood Pressure 118/79 Blood Pressure 165/52 H 118/79 [Right Brachial artery] O2 Saturation 95 06/20/22 07:58 Temperature 36.5 C Heart Rate [ 81 Brachial] Respiratory 20 Rate Blood Pressure Blood Pressure 135/63 H [Right Brachial artery] O2 Saturation 96 Oxygen O2 Source Room air I&O (Last 24 Hrs): Intake and Output Totals x24h 06/18/22 06/19/22 06/20/22 23:59 23:59 23:59 Intake Total 2120 1570 880 Output Total 2900 1750 1600 Balance -780 -180 -720 General: Alert HEENT: Atraumatic Neck: Supple Neuro: Alert, Other (Poor memory) Cardiovascular: Regular rate Respiratory: No respiratory distress Abdomen: Soft Extremities: No edema - Results Results: Laboratory Results WBC 6.1 x10^3/uL (4.8-10.8) 06/18/22 07:20 RBC 3.30 10^6/uL (4.20-5.40) L 06/18/22 07:20 Hgb 10.3 g/dL (12.0-16.0) L 06/18/22 07:20 Hct 31.3 % (37.0-47.0) L 06/18/22 07:20 MCV 94.8 fL (81.0-99.0) 06/18/22 07:20 MCH 31.2 pg (27.0-31.0) H 06/18/22 07:20 MCHC 32.9 g/dL (32.0-36.0) 06/18/22 07:20 RDW 14.8 % (12.0-15.0) 06/18/22 07:20 Plt Count 266 10^3/uL (130-450) 06/18/22 07:20 MPV 9.8 fL (7.9-10.8) 06/18/22 07:20 Neut # (Auto) 3.5 10^3/uL (1.5-6.6) 06/18/22 07:20 Lymph # (Auto) 1.8 10^3/uL (1.5-3.5) 06/18/22 07:20 [place] # (Auto) 0.6 10^3/uL (0.0-1.0) 06/18/22 07:20 Eos # (Auto) 0.1 10^3/uL (0.0-0.7) 06/18/22 07:20 Baso # (Auto) 0.0 10^3/uL (0.0-0.1) 06/18/22 07:20 Absolute Nucleated RBC 0.00 x10^3/uL 06/18/22 07:20 Nucleated RBC % 0.0 /100WBC 06/18/22 07:20 Sodium 126 mmol/L (135-145) L 06/20/22 04:40 Potassium 5.8 mmol/L (3.5-5.0) H 06/20/22 04:40 Chloride 92 mmol/L (101-111) L 06/20/22 04:40 Carbon Dioxide 30 mmol/L (21-32) 06/20/22 04:40 Anion Gap 4.0 (6-13) L 06/20/22 04:40 BUN 40 mg/dL (6-20) H 06/20/22 04:40 Creatinine 0.7 mg/dL (0.4-1.0) 06/20/22 04:40 Estimated GFR (MDRD) 80 (>89) L 06/20/22 04:40 Glucose 84 mg/dL (70-100) 06/20/22 04:40 Lactic Acid 1.7 mmol/L (0.5-2.2) 06/06/22 09:00 Calcium 8.9 mg/dL (8.5-10.3) 06/20/22 04:40 Magnesium 2.3 mg/dL (1.7-2.8) 06/18/22 07:20 Total Bilirubin 0.8 mg/dL (0.2-1.0) 06/04/22 14:40 AST 19 IU/L (10-42) 06/04/22 14:40 ALT 12 IU/L (10-60) 06/04/22 14:40 Alkaline Phosphatase 87 IU/L (42-121) 06/04/22 14:40 C-Reactive Protein 4.9 mg/dL (0-1.0) H 06/07/22 06:12 Total Protein 7.5 g/dL (6.7-8.2) 06/04/22 14:40 Albumin 3.8 g/dL (3.2-5.5) 06/04/22 14:40 Globulin 3.7 g/dL (2.1-4.2) 06/04/22 14:40 Albumin/Globulin Ratio 1.0 (1.0-2.2) 06/04/22 14:40 Lipase 28 U/L (22-51) 06/04/22 14:40 Urine Color YELLOW 06/02/22 17:25 Urine Clarity HAZY (CLEAR) 06/02/22 17:25 Urine pH 7.0 PH (5.0-7.5) 06/02/22 17:25 Ur Specific [place] <=1.005 (1.002-1.030) 06/02/22 17:25 Urine Protein NEGATIVE mg/dL (NEGATIVE) 06/02/22 17:25 Urine Glucose (UA) NEGATIVE mg/dL (NEGATIVE) 06/02/22 17:25 Urine Ketones NEGATIVE mg/dL (NEGATIVE) 06/02/22 17:25 Urine Occult Blood MODERATE (NEGATIVE) H 06/02/22 17:25 Urine Nitrite POSITIVE (NEGATIVE) H 06/02/22 17:25 Urine Bilirubin NEGATIVE (NEGATIVE) 06/02/22 17:25 Urine Urobilinogen 0.2 (NORMAL) E.U./dL (NORMAL) 06/02/22 17:25 Ur Leukocyte Esterase LARGE (NEGATIVE) H 06/02/22 17:25 Urine RBC 11-25 /HPF (0-5) H 06/02/22 17:25 Urine WBC >25 /HPF (0-5) H 06/02/22 17:25 Urine WBC Clumps PRESENT 06/02/22 17:25 Ur Squamous Epith Cells FEW Squamous (<= Few) 06/02/22 17:25 Urine Bacteria Many /HPF (None Seen) H 06/02/22 17:25 Ur Microscopic Review INDICATED 06/02/22 17:25 Urine Culture Comments INDICATED 06/02/22 17:25 SARS-CoV-2 (PCR) NOT DETECTED 06/05/22 17:53 - Procedures Procedures: Procedures INSPECTION OF UPPER INTESTINAL TRACT, ENDO (05/16/18) LOCAL EXCIS BREAST LES (04/01/15)
[2022-06-20] MEDS: SODIUM CHLORIDE 0.9% 1,000 ML IV SCH (14:09)
[2022-06-20] MEDS: MIRTAZAPINE 15 MG TABLET PO SCH (21:22)
[2022-06-21] MEDS: SODIUM CHLORIDE 0.9% 1,000 ML IV SCH ×3 (00:19→23:54)
[2022-06-21] MEDS: IBUPROFEN 400 MG TABLET PO PRN ×3 (05:27→20:26)
[2022-06-21] MEDS: GABAPENTIN 300 MG CAPSULE PO SCH ×3 (05:27→20:26)
[2022-06-21 06:10] LABS: CALCIUM 8.8 mg/dL (8.5-10.3); CREATININE 0.7 mg/dL (0.4-1.0); POTASSIUM 5.3 mmol/L (3.5-5.0)
[2022-06-21] MEDS: PANTOPRAZOLE 40 MG TABLET PO SCH (06:41)
[2022-06-21] MEDS: LOSARTAN 50 MG TABLET PO SCH (08:22)
[2022-06-21] MEDS: APIXABAN 5 MG TABLET PO SCH ×2 (08:22→20:26)
[2022-06-21] MEDS: MULTIVITAMIN W/MINERALS TABLET PO SCH (08:22)
[2022-06-21] MEDS: METOPROLOL TARTRATE 25 MG TABLET PO SCH ×2 (08:30→20:24)
--- NOTE | 2022-06-21 18:33 | PROVIDER PROGRESS NOTE ---
Assessment/Plan - Problem List (1) Hyponatremia Assessment/Plan: Given her weakness and several days of hypersomnolence noted, a set of morning labs was ordered and her BMP showed a sodium severely low at 124, 2 days ago. I had ordered to give saline IV and recheck Sodium in 8 hours to assure it is not correcting too rapidly, however the pt refused an iv restarted. Therefore we cancelled the iv saline 2days ago. We started daily salt tablet and also started a free water restriction, adding this to her diet order. Since the daily serum sodium was not correcting and she has pre-renal azotemia with hyperkalemia, I convinced her to get saline with IV restart since yesterday. Follow BMP daily 2) Pre-renal azotemia Due to inadequate fluid intake p.o. See plan and #1 3) Hyperkalemia Likely due to her volume depletion and rising creat. We give Kayexalate yesterday Following BMP daily. (4) Cognitive impairment Assessment/Plan: On 06/07/22, she underwent cognitive eval and scored 14/30, indicating moderate cognitive impairment. This is likely from her old stroke. This made her impulsive. She does work with OT to stay functional and is redirectable, communicates well, follows directions. She still wanted to live in a tent with her son, who is homeless, until recently, when she had a comment to OT that "she would be too cold in a tent". We are looking for placement for her. However, according to SW, [facility] were interested in accepting her, but the son would not give consent to this. Since he has no address, because he is homeless, we cannot mail him a HIN letter and he refuses to come here, to be able to give him a HIN letter. This difficult placement issue may need attention from the legal dept here (5) History of CVA (cerebrovascular accident) Assessment/Plan: The old CVA likely caused cognitive impairment and makes her impulsive. Impulsivity was documented by OT, but has improved. She does ambulate on her room and was discharged already from PT since she met her goals. (6) Homeless family Conclusion/Plan: An APS report has been filed according to the notes, when she was brought into the ED by her son, who has then refused to come get her. She described the plan was to have the son set up a "high-end" tent at friend's backyard where she and the son would live. She says she wcouldgo by wheelchair into the friend's house for toileting. Occupational Therapy saw the patient. She does participate in the occupational therapy session and completes transitional movements with slightly decreased impulsivity and improved self-care task such as eating and grooming requiring fewer multimodal cues. Her overall Cognitive score by [facility] scruggs was 14 out of 30. Physical therapy has completed working with her. She was impulsive, requiring contact-guard assist with gait and transfers using gait belt. On June 08 we prepared the patient for discharge. She was to go to this "tent" in her son's friend's backyard. The son then spoke to social work to let them know that that is no longer possible. He is not being allowed to use that backyard. As such discharge was canceled. The son has agreed to placement for her and we are now looking for a discharge facility for her. However, according to SW, [facility] were interested in accepting her, but the son would not give consent to this. Since he has no address, because he is homeless, we cannot mail him a HIN letter and he refuses to come here, to be able to give him a HIN letter. This difficult placement issue may need attention from the legal dept here Social work will continue to work with son, and facilities to see where she could go live. Son is the payee on the patient's Social Security money. He may be reluctant to let her go since he personally uses that money to live off of. (7) Hx of coronary artery disease Conclusion/Plan: We are continuing with her usual prescription meds for this, which is B-michelet, ARB, prn sl NTG and her anti-coagulant, since she is not on an anti-plt agent. (8) COPD without exacerbation (J44.9) Conclusion/Plan: She is not in exacerbation We will continue with her usual prescription meds for this, which is just inhaler use prn wheezing No change (9) History of blood clots Conclusion/Plan: Her medication list, which has been reconciled, shows she is on Eliquis 5 mg twice daily. This is not for A. fib, CAD or her stroke Hx. 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 Will continue Eliquis. This will qualify as her DVT prophylaxis. (10) E. coli UTI, treated Impression: Her U/A was abn at presentation on 06/02/22. Then on 06/03/2022 in the ED, she had a positive urine culture, growing Ecoli and she was started on oral Macrobid. She was given Rocephin on June 02, then started on p.o. Macrobid. She received Macrobid on the . On the she received Rocephin again as well as Keflex. On the she received ceftriaxone and vancomycin. And on the she has been back on ceftriaxone consistently. On June 08 she had 7 days of combined IV and oral antibiotic therapy. As such antibiotics were stopped after completion June 08. She has had avoidable days intermittently since June 07. (11) Conjunctivitis, resolved Conclusion/Plan: This was the initial presenting symptom with crusting, crusted shut and swollen eyelids. I suspect this may also have spread to the facial cellulitis. There is no further swelling or crusting, and less redness and pain As of the . Eyedrops completed Qualifiers: Conjunctivitis type: acute Acute conjunctivitis type: bacterial Lateralit y: bilateral Qualified Code(s): H10.33 - Unspecified acute conjunctivitis, bilateral (12) Facial cellulitis, resolved Conclusion/Plan: Resolved. This was described in the ED note. (13) Contamination of blood culture (R79.9) Conclusion/Plan: Patient had a fever while boarding in ED and blood cultures were drawn then, these blood cultures turned positive growing gram-positive cocci. We michelle a repeat set of blood cultures, on the combined antibiotics, to assure there is no future bacterial growth. And those were negative. That blood culture result has been finalized using PCR and it is Staph epidermis which is a contaminant. - Current Meds Current Meds: Current Medications Generic Name Dose Route Start Last Admin Trade Name Freq PRN Reason Stop Dose Admin Apixaban 5 mg 06/03/22 21:00 06/21/22 08:22 Apixaban 5 Mg Tablet PO 5 mg BID DENILSON Administration Carboxymethylcellulose 1 drops 06/12/22 15:42 06/15/22 17:08 Carboxymethylcellulose Ophth Drops EACHEYE 1 drops PRN PRN Administration Dry Eye Gabapentin 300 mg 06/15/22 10:00 06/21/22 14:36 Gabapentin 300 Mg Capsule PO 300 mg TID DENILSON Administration Sodium Chloride 1,000 mls @ 83.333 mls/hr 06/20/22 13:00 06/21/22 12:46 Normal Saline 0.9% IV 83.333 mls/hr .Q12H DENILSON Administration Ibuprofen 400 mg 06/19/22 12:11 06/21/22 11:03 Ibuprofen 400 Mg Tablet PO 400 mg Q6HR PRN Administration PAIN Lidocaine 1 patch 06/13/22 16:11 06/19/22 23:56 Lidocaine Patch 5% TOP 1 patch DAILY PRN Administration PAIN Losartan Potassium 25 mg 06/03/22 13:00 06/21/22 08:22 Losartan 50 Mg Tablet PO 25 mg DAILY DENILSON Administration Metoprolol Tartrate 25 mg 06/14/22 21:00 06/21/22 08:30 Metoprolol Tartrate 25 Mg Tablet PO Not Given BID DENILSON Mirtazapine 15 mg 06/03/22 21:00 06/20/22 21:22 Mirtazapine 15 Mg Tablet PO 15 mg QPM DENILSON Administration Multivitamins/Minerals 1 tab 06/15/22 08:00 06/21/22 08:22 Multivitamin W/Minerals Tablet PO 1 tab DAILYWM DENILSON Administration Pantoprazole Sodium 40 mg 06/07/22 07:00 06/21/22 06:41 Pantoprazole 40 Mg Tablet PO 40 mg QDAC DENILSON Administration - Lab Result Fish Bone Diagrams: 06/18/22 07:20 06/21/22 05:32 - Additional Planning My Orders: My Active Orders 06/22/22 05:00 BMP - BASIC METABOLIC PANEL [CHEM] DAILYLAB CBC - COMP BLD CT W/AUTO DIFF [HEME] DAILYLAB 06/23/22 05:00 BMP - BASIC METABOLIC PANEL [CHEM] DAILYLAB 06/24/22 05:00 BMP - BASIC METABOLIC PANEL [CHEM] DAILYLAB Subjective - Subjective Patient Reports: Resting Comfortably, No Complaints Objective Vital Signs: Vital Signs - 24 hr 06/20/22 06/20/22 06/21/22 21:21 21:22 08:11 Temperature 36.7 C Heart Rate [ 81 53 L Brachial] Respiratory 18 Rate Blood Pressure 124/53 L Blood Pressure 124/53 L [Left Brachial artery] Blood Pressure 100/72 [Right Brachial artery] O2 Saturation 97 06/21/22 15:48 Temperature 37.1 C Heart Rate [ 75 Brachial] Respiratory 16 Rate Blood Pressure Blood Pressure 122/59 L [Left Brachial artery] Blood Pressure [Right Brachial artery] O2 Saturation 94 Oxygen O2 Source Room air I&O (Last 24 Hrs): Intake and Output Totals x24h 06/19/22 06/20/22 06/21/22 23:59 23:59 23:59 Intake Total 1570 1710 4017.219 Output Total 1750 1600 1650 Balance -759 450 6048.219 General: Alert, No acute distress HEENT: EOMI, Mucous membr. moist/pink Neck: Supple Neuro: Alert, Disoriented Cardiovascular: Regular rate, No murmurs Respiratory: No respiratory distress Abdomen: Soft Extremities: No clubbing, No edema - Results Results: Laboratory Results WBC 6.1 x10^3/uL (4.8-10.8) 06/18/22 07:20 RBC 3.30 10^6/uL (4.20-5.40) L 06/18/22 07:20 Hgb 10.3 g/dL (12.0-16.0) L 06/18/22 07:20 Hct 31.3 % (37.0-47.0) L 06/18/22 07:20 MCV 94.8 fL (81.0-99.0) 06/18/22 07:20 MCH 31.2 pg (27.0-31.0) H 06/18/22 07:20 MCHC 32.9 g/dL (32.0-36.0) 06/18/22 07:20 RDW 14.8 % (12.0-15.0) 06/18/22 07:20 Plt Count 266 10^3/uL (130-450) 06/18/22 07:20 MPV 9.8 fL (7.9-10.8) 06/18/22 07:20 Neut # (Auto) 3.5 10^3/uL (1.5-6.6) 06/18/22 07:20 Lymph # (Auto) 1.8 10^3/uL (1.5-3.5) 06/18/22 07:20 [place] # (Auto) 0.6 10^3/uL (0.0-1.0) 06/18/22 07:20 Eos # (Auto) 0.1 10^3/uL (0.0-0.7) 06/18/22 07:20 Baso # (Auto) 0.0 10^3/uL (0.0-0.1) 06/18/22 07:20 Absolute Nucleated RBC 0.00 x10^3/uL 06/18/22 07:20 Nucleated RBC % 0.0 /100WBC 06/18/22 07:20 Sodium 133 mmol/L (135-145) L 06/21/22 05:32 Potassium 5.3 mmol/L (3.5-5.0) H 06/21/22 05:32 Chloride 97 mmol/L (101-111) L 06/21/22 05:32 Carbon Dioxide 31 mmol/L (21-32) 06/21/22 05:32 Anion Gap 5.0 (6-13) L 06/21/22 05:32 BUN 35 mg/dL (6-20) H 06/21/22 05:32 Creatinine 0.7 mg/dL (0.4-1.0) 06/21/22 05:32 Estimated GFR (MDRD) 80 (>89) L 06/21/22 05:32 Glucose 81 mg/dL (70-100) 06/21/22 05:32 Lactic Acid 1.7 mmol/L (0.5-2.2) 06/06/22 09:00 Calcium 8.8 mg/dL (8.5-10.3) 06/21/22 05:32 Magnesium 2.3 mg/dL (1.7-2.8) 06/18/22 07:20 Total Bilirubin 0.8 mg/dL (0.2-1.0) 06/04/22 14:40 AST 19 IU/L (10-42) 06/04/22 14:40 ALT 12 IU/L (10-60) 06/04/22 14:40 Alkaline Phosphatase 87 IU/L (42-121) 06/04/22 14:40 C-Reactive Protein 4.9 mg/dL (0-1.0) H 06/07/22 06:12 Total Protein 7.5 g/dL (6.7-8.2) 06/04/22 14:40 Albumin 3.8 g/dL (3.2-5.5) 06/04/22 14:40 Globulin 3.7 g/dL (2.1-4.2) 06/04/22 14:40 Albumin/Globulin Ratio 1.0 (1.0-2.2) 06/04/22 14:40 Lipase 28 U/L (22-51) 06/04/22 14:40 Urine Color YELLOW 06/02/22 17:25 Urine Clarity HAZY (CLEAR) 06/02/22 17:25 Urine pH 7.0 PH (5.0-7.5) 06/02/22 17:25 Ur Specific [place] <=1.005 (1.002-1.030) 06/02/22 17:25 Urine Protein NEGATIVE mg/dL (NEGATIVE) 06/02/22 17:25 Urine Glucose (UA) NEGATIVE mg/dL (NEGATIVE) 06/02/22 17:25 Urine Ketones NEGATIVE mg/dL (NEGATIVE) 06/02/22 17:25 Urine Occult Blood MODERATE (NEGATIVE) H 06/02/22 17:25 Urine Nitrite POSITIVE (NEGATIVE) H 06/02/22 17:25 Urine Bilirubin NEGATIVE (NEGATIVE) 06/02/22 17:25 Urine Urobilinogen 0.2 (NORMAL) E.U./dL (NORMAL) 06/02/22 17:25 Ur Leukocyte Esterase LARGE (NEGATIVE) H 06/02/22 17:25 Urine RBC 11-25 /HPF (0-5) H 06/02/22 17:25 Urine WBC >25 /HPF (0-5) H 06/02/22 17:25 Urine WBC Clumps PRESENT 06/02/22 17:25 Ur Squamous Epith Cells FEW Squamous (<= Few) 06/02/22 17:25 Urine Bacteria Many /HPF (None Seen) H 06/02/22 17:25 Ur Microscopic Review INDICATED 06/02/22 17:25 Urine Culture Comments INDICATED 06/02/22 17:25 SARS-CoV-2 (PCR) NOT DETECTED 06/05/22 17:53 - Procedures Procedures: Procedures INSPECTION OF UPPER INTESTINAL TRACT, ENDO (05/16/18) LOCAL EXCIS BREAST LES (04/01/15)
[2022-06-21] MEDS: MIRTAZAPINE 15 MG TABLET PO SCH (20:27)
[2022-06-22 05:31] LABS: BASOPHILS % (AUTO) 0.5 %; EOSINOPHILS # (AUTO) 0.2 10^3/uL (0.0-0.7); EOSINOPHILS % (AUTO) 2.5 %; HCT - HEMATOCRIT 28.7 % (37.0-47.0); HGB - HEMOGLOBIN 9.2 g/dL (12.0-16.0); LYMPHOCYTES # (AUTO) 1.7 10^3/uL (1.5-3.5); LYMPHOCYTES % (AUTO) 28.2 %; MEAN CORPUSCULAR HGB CONC 32.1 g/dL (32.0-36.0); MEAN CORPUSCULAR VOLUME 96.6 fL (81.0-99.0); MEAN PLATELET VOLUME 9.4 fL (7.9-10.8); MONOCYTES # (AUTO) 0.6 10^3/uL (0.0-1.0); MONOCYTES % (AUTO) 10.3 %; NEUTROPHILS # (AUTO) 3.5 10^3/uL (1.5-6.6); NEUTROPHILS % (AUTO) 58.2 %; PLT - PLATELET COUNT 234 10^3/uL (130-450); RED BLOOD COUNT 2.97 10^6/uL (4.20-5.40); RED CELL DISTRIBUTION WIDTH 15.3 % (12.0-15.0)
[2022-06-22 05:52] LABS: CALCIUM 8.4 mg/dL (8.5-10.3); CREATININE 0.6 mg/dL (0.4-1.0); POTASSIUM 5.3 mmol/L (3.5-5.0)
[2022-06-22] MEDS: GABAPENTIN 300 MG CAPSULE PO SCH ×3 (06:19→20:37)
[2022-06-22] MEDS: PANTOPRAZOLE 40 MG TABLET PO SCH ×2 (06:19→10:13)
[2022-06-22] MEDS: MULTIVITAMIN W/MINERALS TABLET PO SCH (10:12)
[2022-06-22] MEDS: APIXABAN 5 MG TABLET PO SCH ×2 (10:13→20:37)
[2022-06-22] MEDS: METOPROLOL TARTRATE 25 MG TABLET PO SCH ×2 (10:15→20:36)
[2022-06-22] MEDS: LOSARTAN 50 MG TABLET PO SCH (10:19)
[2022-06-22] MEDS ORDERED: SODIUM POLYSTYRENE SULFONATE 15 GM/60 ML BOTTLE PO ONE (12:23)
[2022-06-22] MEDS: LIDOCAINE PATCH 5% TOP PRN (12:31)
[2022-06-22] MEDS: SODIUM CHLORIDE 0.9% 1,000 ML IV SCH ×2 (12:31→23:49)
--- NOTE | 2022-06-22 12:33 | PROVIDER PROGRESS NOTE ---
Subjective - Prog Note Date Prog Note Date: 06/22/22 Prog Note Time: 12:28 - Subjective Subjective: She is tearful today. [place] just go [place] with [place] today. She misses him.. Current Medications - Current Medications Current Medications: Active Medications Apixaban (Apixaban 5 Mg Tablet) 5 mg PO BID [facility] Last Admin: 06/22/22 10:13 Dose: 5 mg Carboxymethylcellulose (Carboxymethylcellulose Ophth Drops) 1 drops EACHEYE PRN PRN PRN Reason: Dry Eye Last Admin: 06/15/22 17:08 Dose: 1 drops Gabapentin (Gabapentin 300 Mg Capsule) 300 mg PO TID [facility] Last Admin: 06/22/22 06:19 Dose: 300 mg Guaifenesin (Guaifenesin/Dextromethorphan 10 Ml Udc) 10 ml PO Q6HR PRN PRN Reason: Cough Sodium Chloride (Normal Saline 0.9%) 1,000 mls @ 83.333 mls/hr IV .Q12H [facility] Last Admin: 06/22/22 12:31 Dose: 83.333 mls/hr Ibuprofen (Ibuprofen 400 Mg Tablet) 400 mg PO Q6HR PRN PRN Reason: PAIN Last Admin: 06/21/22 20:26 Dose: 400 mg Lidocaine (Lidocaine Patch 5%) 1 patch TOP DAILY PRN PRN Reason: PAIN Last Admin: 06/22/22 12:31 Dose: 1 patch Losartan Potassium (Losartan 50 Mg Tablet) 25 mg PO DAILY [facility] Last Admin: 06/22/22 10:19 Dose: 25 mg Metoprolol Tartrate (Metoprolol Tartrate 25 Mg Tablet) 25 mg PO BID [facility] Last Admin: 06/22/22 10:15 Dose: 25 mg Mirtazapine (Mirtazapine 15 Mg Tablet) 15 mg PO QPM [facility] Last Admin: 06/21/22 20:27 Dose: 15 mg Multivitamins/Minerals (Multivitamin W/Minerals Tablet) 1 tab PO DAILYWM [facility] Last Admin: 06/22/22 10:12 Dose: 1 tab Nitroglycerin (Nitroglycerin Sl 0.4 Mg Tablet) 0.4 mg SL Q5MIN PRN PRN Reason: Chest Pain Ondansetron HCl (Ondansetron 4 Mg/2 Ml Vial) 4 mg IVP Q6HR PRN PRN Reason: Nausea / Vomiting Pantoprazole Sodium (Pantoprazole 40 Mg Tablet) 40 mg PO QDAC [facility] Last Admin: 06/22/22 10:13 Dose: Not Given Polyethylene Glycol (Polyethylene Glycol 3350 17 Gm Packet) 17 gm PO DAILY PRN PRN Reason: Constipation Sodium Polystyrene Sulfonate (Sodium Polystyrene Sulfonate 15 Gm/60 Ml Bottle) 15 gm PO ONCE ONE Stop: 06/22/22 12:24 Albuterol Sulfate [Proair Hfa Inhaler] 2 puffs INH Q6H PRN 03/31/15 Loratadine [Allergy Relief] 10 mg PO DAILY 03/31/15 Metoprolol Tartrate [Lopressor] 25 mg PO BID 03/31/15 [place]-3 Fatty Acids/Fish Oil [[place] 3 1,000 mg Softgel] 1 gm PO DAILY 03/31/15 Nitroglycerin 0.4 mg SL Q5MIN PRN MDD 3 DOSES 05/15/18 Pantoprazole Sodium 40 mg PO DAILY 05/15/18 Apixaban [Eliquis] 5 mg PO BID 06/03/22 Gabapentin [Neurontin] 300 mg PO TID 06/03/22 Losartan Potassium 25 mg PO DAILY 06/03/22 Mirtazapine 7.5 mg PO DAILY 06/03/22 Pantoprazole Sodium [Protonix] 40 mg PO DAILY 06/03/22 Atorvastatin Calcium 40 mg PO QPM 06/11/22 Objective - Vital Signs/Intake & Output Reviewed Vital Signs: Yes Vital Signs: Vital Signs x48h Temp Pulse Resp BP BP Pulse Ox 06/22/22 10:15 144/48 H 06/22/22 07:40 37.2 C 70 18 125/60 96 Intake & Output: Intake & Output 06/19/22 06/20/22 06/21/22 06/22/22 23:59 23:59 23:59 23:59 Intake Total 1570 1710 5194.993 1377 Output Total 1750 1600 3750 600 Balance -219 431 9515.993 777 - Objective General Appearance: positive: No acute distress, Alert, Other (Well-nourished, thin elderly female, tearful.) Eyes Bilateral: positive: PERRL, EOMI Neck: positive: No JVD. negative: Stiff neck Respiratory: positive: No respiratory distress. negative: Wheezes, Rales, Rhonchi Cardiovascular: positive: Regular rate & rhythm. negative: Gallop/S4, Friction rub Abdomen: positive: Non-tender, No organomegaly, Nml bowel sounds, No distention Skin: positive: Warm, Dry Extremities: positive: Full ROM, No pedal edema Neurologic/Psychiatric: positive: CN's nml (2-12), Motor nml, Disoriented to time, Other (She is able to ambulate to the restroom without assist.) - Lab Results Fish Bones: 06/22/22 05:18 06/22/22 05:18 Other Labs: Lab Results x24hrs 06/22/22 06/22/22 Range/Units 05:18 05:18 WBC 6.0 (4.8-10.8) x10^3/uL RBC 2.97 L (4.20-5.40) 10^6/uL Hgb 9.2 L (12.0-16.0) g/dL Hct 28.7 L (37.0-47.0) % MCV 96.6 (81.0-99.0) fL MCH 31.0 (27.0-31.0) pg MCHC 32.1 (32.0-36.0) g/dL RDW 15.3 H (12.0-15.0) % Plt Count 234 (130-450) 10^3/uL MPV 9.4 (7.9-10.8) fL Neut # (Auto) 3.5 (1.5-6.6) 10^3/uL Lymph # (Auto) 1.7 (1.5-3.5) 10^3/uL [place] # (Auto) 0.6 (0.0-1.0) 10^3/uL Eos # (Auto) 0.2 (0.0-0.7) 10^3/uL Baso # (Auto) 0.0 (0.0-0.1) 10^3/uL Absolute Nucleated RBC 0.00 x10^3/uL Nucleated RBC % 0.0 /100WBC Sodium 131 L (135-145) mmol/L Potassium 5.3 H (3.5-5.0) mmol/L Chloride 100 L (101-111) mmol/L Carbon Dioxide 27 (21-32) mmol/L Anion Gap 4.0 L (6-13) BUN 36 H (6-20) mg/dL Creatinine 0.6 (0.4-1.0) mg/dL Estimated GFR (MDRD) 95 (>89) Glucose 88 (70-100) mg/dL Calcium 8.4 L (8.5-10.3) mg/dL ABX Reporting Has patient been on IV antibiotics over the past 48 hours?: No Assessment/Plan - Problem List (1) Hyponatremia Impression: and (2) Hyperkalemia from (3) Pre-renal azotemia Given her weakness and several days of hypersomnolence noted on 06/18, a set of morning labs was ordered and her BMP showed a sodium severely low at 124 ago. The patient refused to have an IV restarted that day. She was started on the salt tablet and a free water restriction. Sodium was not correcting and she was convinced to get a IV on June 20. Follow BMP daily She has been steadily improving. Yesterday she was 133. Today she is 131 for her sodium. Potassium continues to be elevated at 5.3 today. Plan: Continue normal saline, 1 dose of Kayexalate (4) Cognitive impairment Assessment/Plan: On 06/07/22, she underwent cognitive eval and scored 14/30, indicating moderate cognitive impairment. This is likely from her old stroke. This made her impulsive. She does work with OT to stay functional and is redirectable, communicates well, follows directions. She still wanted to live in a tent with her son, who is homeless, until recently, when she had a comment to OT that "she would be too cold in a tent". We are looking for placement for her. However, according to SW, [facility] were interested in accepting her, but the son would not give consent to this. Since he has no address, because he is homeless, we cannot mail him a HIN letter and he refuses to come here, to be able to give him a HIN letter. This difficult placement issue may need attention from the legal dept here. Social work states they are continuing to work on the problem. (5) History of CVA (cerebrovascular accident) Assessment/Plan: The old CVA likely caused cognitive impairment and makes her impulsive. Impulsivity was documented by OT, but has improved. She does ambulate on her room and was discharged already from PT since she met her goals. (6) Homeless family Conclusion/Plan: An APS report has been filed according to the notes, when she was brought into the ED by her son, who has then refused to come get her. She described the plan was to have the son set up a "high-end" tent at friend's backyard where she and the son would live. She says she could go by wheelchair into the friend's house for toileting. Occupational Therapy saw the patient. She does participate in the occupational therapy session and completes transitional movements with slightly decreased impulsivity and improved self-care task such as eating and grooming requiring fewer multimodal cues. Her overall Cognitive score by HOUSTON scruggs was 14 out of 30. Physical therapy has completed working with her. She was impulsive, req uiring contact-guard assist with gait and transfers using gait belt. On June 08 we prepared the patient for discharge. She was to go to this "tent" in her son's friend's backyard. The son then spoke to social work to let them know that that is no longer possible. He is not being allowed to use that backyard. As such discharge was canceled. The son has agreed to placement for her and we are now looking for a discharge facility for her. However, according to SW, [facility] were interested in accepting her, but the son would not give consent to this. Since he has no address, because he is homeless, we cannot mail him a HIN letter and he refuses to come here, to be able to give him a HIN letter. This difficult placement issue may need attention from the legal dept here Social work will continue to work with son, and facilities to see where she could go live. Son is the payee on the patient's Social Security money. He may be reluctant to let her go since he personally uses that money to live off of. (7) Hx of coronary artery disease Conclusion/Plan: We are continuing with her usual prescription meds for this, which is B-michelet, ARB, prn sl NTG and her anti-coagulant, since she is not on an anti-plt agent. (8) COPD without exacerbation (J44.9) Conclusion/Plan: She is not in exacerbation We will continue with her usual prescription meds for this, which is just inhaler use prn wheezing No change (9) History of blood clots Conclusion/Plan: Her medication list, which has been reconciled, shows she is on Eliquis 5 mg twice daily. This is not for A. fib, CAD or her stroke Hx. 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 Will continue Eliquis. This will qualify as her DVT prophylaxis. (10) E. coli UTI, treated Impression: Her U/A was abn at presentation on 06/02/22. Then on 06/03/2022 in the ED, she had a positive urine culture, growing Ecoli and she was started on oral Macrobid. She was given Rocephin on June 02, then started on p.o. Macrobid. She received Macrobid on the . On the she received Rocephin again as well as Keflex. On the she received ceftriaxone and vancomycin. And on the she has been back on ceftriaxone consistently. On June 08 she had 7 days of combined IV and oral antibiotic therapy. As such antibiotics were stopped after completion June 08. She has had avoidable days intermittently since June 07. (11) Conjunctivitis, resolved Conclusion/Plan: This was the initial presenting symptom with crusting, crusted shut and swollen eyelids. I suspect this may also have spread to the facial cellulitis. There is no further swelling or crusting, and less redness and pain As of the . Eyedrops completed Qualifiers: Conjunctivitis type: acute Acute conjunctivitis type: bacterial Laterality: bilateral Qualified Code(s): H10.33 - Unspecified acute conjunctivitis, bilateral (12) Facial cellulitis, resolved Conclusion/Plan: Resolved. This was described in the ED note. (13) Contamination of blood culture (R79.9) Conclusion/Plan: Patient had a fever while boarding in ED and blood cultures were drawn then, these blood cultures turned positive growing gram-positive cocci. We michelle a repeat set of blood cultures, on the combined antibiotics, to assure there is no future bacterial growth. And those were negative. That blood culture result has been finalized using PCR and it is Staph epidermis which is a contaminant.
[2022-06-22] MEDS: IBUPROFEN 400 MG TABLET PO PRN (16:25)
[2022-06-22] MEDS: MIRTAZAPINE 15 MG TABLET PO SCH (20:36)
[2022-06-23 05:10] LABS: CALCIUM 8.6 mg/dL (8.5-10.3); CREATININE 0.6 mg/dL (0.4-1.0)
[2022-06-23] MEDS: PANTOPRAZOLE 40 MG TABLET PO SCH (06:43)
[2022-06-23] MEDS: GABAPENTIN 300 MG CAPSULE PO SCH ×3 (06:44→20:17)
[2022-06-23] MEDS: IBUPROFEN 400 MG TABLET PO PRN ×2 (07:41→20:17)
[2022-06-23] MEDS: LOSARTAN 50 MG TABLET PO SCH (07:41)
[2022-06-23] MEDS: METOPROLOL TARTRATE 25 MG TABLET PO SCH ×2 (07:41→20:17)
[2022-06-23] MEDS: MULTIVITAMIN W/MINERALS TABLET PO SCH (07:42)
[2022-06-23] MEDS: APIXABAN 5 MG TABLET PO SCH ×2 (07:42→20:18)
--- NOTE | 2022-06-23 12:55 | Discharge Plan ---
Discharge Plan Problem Reviewed?: Yes Disposition: Home, Self Care Condition: Good Prescriptions: Nitroglycerin [Nitrostat] 0.4 mg SL Q5MIN PRN #30 tab PRN Reason: Chest Pain Atorvastatin Calcium 40 mg PO QPM #30 tab Losartan [Cozaar] 25 mg PO DAILY #30 tab Apixaban [Eliquis] 5 mg PO BID #30 tab Metoprolol Tartrate [Lopressor] 25 mg PO BID #60 tab Gabapentin [Neurontin] 300 mg PO TID #90 cap Pantoprazole Sodium [Protonix] 40 mg PO DAILY #30 tab Mirtazapine [Remeron] 15 mg PO QPM #30 tab Diet: Cardiac Activity Restrictions: Activity as Tolerated Shower Restrictions: No Driving Restrictions: Yes (no driving) Health Concerns: You are a homeless elderly female who was brought to the Emergency Room by your son for conjunctivitis and a urinary tract infection. He opted not to pick you up and you stayed with us for a few days for these problems. We did wonder at one point if the infection had spread to your blood stream but it had not. You have responded to eye medicine and antibiotics for your urinary tact infection. Your son is now able to pick you up. While you were here, we did find you to have memory loss and your score card for memory (the highest points are 30) showed you to have a 14/30. Adult protective services has been notified to open a case for you since you are felt to be at risk because of your memory loss. At this time you do not need any new medications. We are worried that you do not have any medications at home so we have represcribed all of your prescriptions for 30-day supply at [facility] pharmacy. Plan of Treatment: 1. You will be discharged to live in an apartment with your son . 2. You have completed therapy for urinary tract infection and eye infection. 3. Please see your primary care provider in the next 2-3 weeks for followup. Care Goals: To remain in a safe environment where you are fed, kept warm, and given your medications on a regular basis with a bath 3 times a week. We also would like you to have clean clothes on a regular basis. Assessment: patient has memory loss and has tangential conversation. She is most likely not able to make her own financial or healthcare decisions because of dementia. Son is financial and DURABLE POWER OF SWITCHGEAR REPAIRER. Adult Protective Services will be following the case. No Smoking: If you smoke, Please STOP! Call for help. Follow-up with: your,doctor in 1 week for recheck [Other]
--- NOTE | 2022-06-23 13:02 | DISCHARGE SUMMARY ---
Discharge Summary Admit Date: 06/05/22 Discharge Date: 06/23/22 Discharging Provider: Deja Hogue MD Primary Care Provider: Alyssa Robison Condition at Discharge: Good Discharge Disposition: 01 Home, Self Care - HPI History of Present Illness: This is an 86-year-old white female who lives with her son and now they are both homeless for unknown period of time. She has a Hx of CABG, HTN on Losartan, COPD on inhalers and Hx of CVA and arterial occlusion of the leg and takes Eliq uis. She was brought to the ER on 06/02/2022 by her son, who then left the ER, with c/o bilateral eyes swollen and crusted shut and diagnosed with bilateral conjunctivitis, and was put on eyes drops. Her u/a was also abnormal, but she had normal WBC and normal BMP. The son did not want to return to get her from the ER to take her home. She was boarding in the ER therefore, and social work was involved in the case. On 06/03/22, her urine culture turned positive for E. coli, and she was started on Macrobid. On 06/04/22, she had a fever of 38.7 degrees C and there was evidence of swelling of her face and she was diagnosed with facial cellulitis. Blood cultures were drawn and she had one IV Rocephin given, in addition to being on p.o. Macrobid. Today, 06/05/2022, the blood culture has turned positive for gram-positive cocci. The ED provider reached out to the Hospitalist team to have her admitted for treatment of bacteremia. She has a POLST on record from 2018 which states she wants full treatment and to be a full code. Additional history obtained from ER staff told to our [facility] staff is that the patient used to live in a long-term care facility. The son signed her out of the long-term care facility to live with him in order to get her monthly Social Security check money. They used to live in a trailer. They have been kicked out of the trailer park because of his drug abuse, specifically he used meth and fentanyl. - Past Medical History Cardiovascular: reports: Hypertension, High cholesterol, Coronary artery disease, [place] Respiratory: reports: Asthma, Pneumonia, Other 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, Alzhiemer's, CVA, Peripheral neuropathy Endocrine/Autoimmune: reports: None GI: reports: GERD, Colon polyps, Chronic diarrhea, Other : reports: Kidney stones, Other HEENT: reports: Other Psych: reports: Anxiety, Other Musculoskeletal: reports: Osteoarthritis, Chronic back pain Derm: reports: None MRSA Hx?: No - Past Surgical History General: reports: Cholecystectomy, Colonoscopy Ortho: reports: Arthroscopic surgery /LINKER UP: reports: 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, Other Cardiovascular: reports: CABG, Coronary stent - ALLERGIES Allergies/Adverse Reactions: Allergies Allergy/AdvReac Type Severity Reaction Status Date / Time furosemide Allergy Intermediate Rash Verified 06/02/22 16:45 Penicillins Allergy Rash Verified 06/02/22 16:45 lisinopril AdvReac Mild Cough Verified 06/02/22 16:45 - MEDICATIONS Home Medications: Ambulatory Orders Medication Instructions Recorded Confirmed Albuterol Sulfate [Proair Hfa 2 puffs INH Q6H PRN 03/31/15 06/03/22 Inhaler] Loratadine [Allergy Relief] 10 mg PO DAILY 03/31/15 06/03/22 [place]-3 Fatty Acids/Fish Oil 1 gm PO DAILY 03/31/15 06/03/22 [[place] 3 1,000 mg Softgel] polyethylene glycoL 3350 [Miralax] 17 gm PO DAILY PRN #1 bottle 10/10/21 06/03/22 Apixaban [Eliquis] 5 mg PO BID #30 tab 06/23/22 Atorvastatin Calcium 40 mg PO QPM #30 tab 06/23/22 Gabapentin [Neurontin] 300 mg PO TID #90 cap 06/23/22 Ibuprofen [Motrin] 400 mg PO Q6HR PRN tab 06/23/22 Losartan [Cozaar] 25 mg PO DAILY #30 tab 06/23/22 Metoprolol Tartrate [Lopressor] 25 mg PO BID #60 tab 06/23/22 Mirtazapine [Remeron] 15 mg PO QPM #30 tab 06/23/22 Multivitamin W/Minerals [[place]ag[place] 1 tab PO DAILYWM tab 06/23/22 M] Nitroglycerin [Nitrostat] 0.4 mg SL Q5MIN PRN #30 tab 06/23/22 Pantoprazole Sodium [Protonix] 40 mg PO DAILY #30 tab 06/23/22 - LABS Result Diagrams: 06/22/22 05:18 06/23/22 04:45
[2022-06-23] MEDS: DOCUSATE SODIUM 250 MG CAPSULE PO SCH (13:57)
--- NOTE | 2022-06-23 16:12 | PROVIDER PROGRESS NOTE ---
Progress Note June 23, 2022 4:09 PM We had quite a bit of a seesaw today. The son called social work and said that he had a safe discharge for his mom. He was getting be the new caregiver of someone here in [place] and his mom was good to be able to move in with him. She would have running water, a warm bed, and ability to be fed safely. He instructed social work to have a ready for discharge. We got a ready for discharge and he called us back and said that his plan is fallen apart. The place he was getting move into is not habitable. And the lady that he was good to be taking care of is now go to be having to leave her own home because it is not habitable. As such, we are canceling her discharge. She is tearful. All of her medications been changed to p.o. Active Medications Apixaban (Apixaban 5 Mg Tablet) 5 mg PO BID [facility] Last Admin: 06/23/22 07:42 Dose: 5 mg Carboxymethylcellulose (Carboxymethylcellulose Ophth Drops) 1 drops EACHEYE PRN PRN PRN Reason: Dry Eye Last Admin: 06/15/22 17:08 Dose: 1 drops Docusate Sodium (Docusate Sodium 250 Mg Capsule) 250 - 500 mg PO DAILY [facility] Last Admin: 06/23/22 13:57 Dose: Not Given Gabapentin (Gabapentin 300 Mg Capsule) 300 mg PO TID [facility] Last Admin: 06/23/22 13:57 Dose: 300 mg Guaifenesin (Guaifenesin/Dextromethorphan 10 Ml Udc) 10 ml PO Q6HR PRN PRN Reason: Cough Ibuprofen (Ibuprofen 400 Mg Tablet) 400 mg PO Q6HR PRN PRN Reason: PAIN Last Admin: 06/23/22 07:41 Dose: 400 mg Lidocaine (Lidocaine Patch 5%) 1 patch TOP DAILY PRN PRN Reason: PAIN Last Admin: 06/22/22 12:31 Dose: 1 patch Losartan Potassium (Losartan 50 Mg Tablet) 25 mg PO DAILY [facility] Last Admin: 06/23/22 07:41 Dose: 25 mg Metoprolol Tartrate (Metoprolol Tartrate 25 Mg Tablet) 25 mg PO BID [facility] Last Admin: 06/23/22 07:41 Dose: Not Given Mirtazapine (Mirtazapine 15 Mg Tablet) 15 mg PO QPM [facility] Last Admin: 06/22/22 20:36 Dose: 15 mg Multivitamins/Minerals (Multivitamin W/Minerals Tablet) 1 tab PO DAILYWM [facility] Last Admin: 06/23/22 07:42 Dose: 1 tab Nitroglycerin (Nitroglycerin Sl 0.4 Mg Tablet) 0.4 mg SL Q5MIN PRN PRN Reason: Chest Pain Ondansetron HCl (Ondansetron 4 Mg/2 Ml Vial) 4 mg IVP Q6HR PRN PRN Reason: Nausea / Vomiting Pantoprazole Sodium (Pantoprazole 40 Mg Tablet) 40 mg PO QDAC [facility] Last Admin: 06/23/22 06:43 Dose: 40 mg Polyethylene Glycol (Polyethylene Glycol 3350 17 Gm Packet) 17 gm PO DAILY PRN PRN Reason: Constipation Albuterol Sulfate [Proair Hfa Inhaler] 2 puffs INH Q6H PRN 03/31/15 Loratadine [Allergy Relief] 10 mg PO DAILY 03/31/15 [place]-3 Fatty Acids/Fish Oil [[place] 3 1,000 mg Softgel] 1 gm PO DAILY 03/31/15 Temperature 36.3. Heart rate 75. Blood pressure 114/53. Respirations 20. 100% on room air. 5 feet 7 inches tall and weighs 68 kg Alert, forgetful elderly female, again tearful. Neck is supple. Lungs are clear to auscultation and percussion Regular rate and rhythm Abdomen is soft, nontender, normal bowel sounds. Last bowel movement was today. She is incontinent and needs a pure wick when she is in bed. Extremities are warm. She does not have any edema. Neurologically she is alert, understands where she is and why she is here. She is hard of hearing. Very forgetful. Assessment/plan This is an elderly female who was brought in by EMS to our emergency room [facility]an Alvarez. She is homeless and living with her son and their dogs on the street. She was sleeping on a park bench at night. She was brought in because of bilateral eye irritation. She was treated for conjunctivitis and then hydrated and was to be sent back to her son's care. However he did not want to pick her up. Her urine then grew E. coli a day later. Face was felt to have cellulitis while in the ER. She had a temperature 38.7. As such she was admitted 9/10 for IV ceftriaxone and vancomycin. Urine grew out E. coli on June 02. Blood cultures when she had a temperature spike grew out staph epidermidis. However that staph grew out on June 07 from the June 04 blood cultures. Repeat blood cultures June 06 were negative. We do feel that those staph cultures are contaminant.She is completed treatment for her UTI. She has been avoidable day since June 07. 06/18/22 she grew more somnolent and less talkative. Recheck labs and found to have hyponatremia again with a sodium of 124, potassium 5.2. BUN 35 creatinine 0.8. She had been drinking quite a bit of water. We will fluid restrict her to, given her some normal saline, and sodium is now 131 with potassium 5.3. Today, she is refusing an IV again. She is depressed, tearful. She promises to eat and drink enough but is under fluid restriction. Problems resolved: E. coli UTI Conjunctivitis History of coronary artery disease COPD without exacerbation History of DVTs Facial cellulits we are awaiting placement plans again.
[2022-06-23] MEDS: MIRTAZAPINE 15 MG TABLET PO SCH (20:17)
[2022-06-24] MEDS: IBUPROFEN 400 MG TABLET PO PRN ×2 (00:18→12:57)
[2022-06-24 05:27] LABS: CALCIUM 8.7 mg/dL (8.5-10.3); CREATININE 0.7 mg/dL (0.4-1.0); POTASSIUM 5.1 mmol/L (3.5-5.0)
[2022-06-24] MEDS: PANTOPRAZOLE 40 MG TABLET PO SCH (06:29)
[2022-06-24] MEDS: GABAPENTIN 300 MG CAPSULE PO SCH ×3 (06:29→20:44)
[2022-06-24] MEDS: DOCUSATE SODIUM 250 MG CAPSULE PO SCH (08:18)
[2022-06-24] MEDS: MULTIVITAMIN W/MINERALS TABLET PO SCH (08:19)
[2022-06-24] MEDS: APIXABAN 5 MG TABLET PO SCH ×2 (08:19→20:37)
[2022-06-24] MEDS: LOSARTAN 50 MG TABLET PO SCH (08:19)
[2022-06-24] MEDS: METOPROLOL TARTRATE 25 MG TABLET PO SCH ×2 (08:20→20:37)
--- NOTE | 2022-06-24 13:15 | PROVIDER PROGRESS NOTE ---
Progress Note June 24, 2022 1:10 PM No new events overnight in this elderly female. She lost her IV yesterday and really does not want a new IV. My concern is that she gets electrolyte abnormalities when she does this. She was hyponatremic, hyperkalemic. We treated this with normal saline and she improved. This morning her hyponatremia is slightly worse. She was 134 yesterday and 132 today. Potassium is 5.1. We have restricted her free fluid, she is eating, and we have sepsis due to some of her fluid to be Gatorade and she drank that this morning. Temperature 36.7. Heart rate 55. Blood pressure 165/61. Respirations 16. 98% on room air. Slender, alert, elderly female with cognitive deficits, forgetful, tearful. She cries almost every day because she would love to go home but is just not in a workout with her son's plans. Neck is supple. Lungs are clear and diminished at the bases but there is no increased respiratory effort or distress with talking to me or walking in the room. Regular rate and rhythm. Abdomen is soft and nontender. Last bowel movement was yesterday. She is incontinent of urine and needs a pure wick when in bed. Neurologically she is an elderly woman who is forgetful but is able to feed herself, get up out of bed and walk around in the room. Sodium 132, potassium 5.1, anion gap 5, creatinine 38, BUN 0.7 White cell count 6.0, hemoglobin 9.2. She is gradually going down and was 12.2 on June 05. Hematocrit 28.7. Assessment/plan This is an elderly female who was brought in by EMS to our emergency room June 02. She is homeless and living with her son and their dogs on the street. She was sleeping on a park bench at night. She was brought in because of bilateral eye irritation. She was treated for conjunctivitis and then hydrated and was to be sent back to her son's care. However he did not want to pick her up. Her urine then grew E. coli a day later. Face was felt to have cellulitis while in the ER. She had a temperature 38.7. As such she was admitted 06/05 for IV ceftriaxone and vancomycin. Urine grew out E. coli on June 02. Blood cultures when she had a temperature spike grew out staph epidermidis. However that staph grew out on June 07 from the June 04 blood cultures. Repeat blood cultures June 06 were negative. We do feel that those staph cultures are contaminant.She is completed treatment for her UTI. She has been avoidable day since June 07 and until 06/18. 06/18/22 she grew more somnolent and less talkative. Recheck labs and found to have hyponatremia again with a sodium of 124, potassium 5.2. BUN 35 creatinine 0.8. She had been drinking quite a bit of water. We will fluid restrict her to, given her some normal saline, and sodium is now 131 with potassium 5.3. , she is refusing an IV again since 06/23. She is depressed, tearful. She promises to eat and drink enough but is under fluid restriction. We thought we were going to be able to discharge her to her son's care in a safe living environment on June 23. However her son's plans fell through. Social work is assiduously working on the problem. Problems resolved: E. coli UTI Conjunctivitis History of coronary artery disease COPD without exacerbation History of DVTs Facial cellulits we are awaiting placement plans again.
[2022-06-24] MEDS: MIRTAZAPINE 15 MG TABLET PO SCH (20:44)
[2022-06-25] MEDS: PANTOPRAZOLE 40 MG TABLET PO SCH (06:37)
[2022-06-25] MEDS: GABAPENTIN 300 MG CAPSULE PO SCH ×3 (06:37→20:25)
[2022-06-25] MEDS: IBUPROFEN 400 MG TABLET PO PRN (07:48)
[2022-06-25] MEDS: MULTIVITAMIN W/MINERALS TABLET PO SCH (07:48)
[2022-06-25] MEDS: DOCUSATE SODIUM 250 MG CAPSULE PO SCH (08:13)
[2022-06-25] MEDS: APIXABAN 5 MG TABLET PO SCH ×2 (08:13→20:25)
[2022-06-25] MEDS: LOSARTAN 50 MG TABLET PO SCH (08:14)
[2022-06-25] MEDS: METOPROLOL TARTRATE 25 MG TABLET PO SCH ×2 (08:21→20:23)
--- NOTE | 2022-06-25 17:23 | PROVIDER PROGRESS NOTE ---
Progress Note June 25, 2022 5:20 PM No new events for this valeria elderly female. There is no fever and vital signs of been stable. Very sad, expressing loneliness. Misses her son. She is at 68 kg. When she was admitted she was admitted at 62.5 kg. She is eating 100% of her food. Temperature is 37.2. Heart rate 60. Blood pressure 110/91. Respirations 20. 95% on room air. Tearful, alert, elderly female but very forgetful. Neck is supple Lungs are clear Regular rate and rhythm Abdomen soft nontender Extremities without edema Yesterday sodium 132. Potassium 5.1. She continues to refuse an IV today for hydration. She is on fluid restriction Assessment/plan This is an elderly female who was brought in by EMS to our emergency room Se ptember 7. She is homeless and living with her son and their dogs on the street. She was sleeping on a park bench at night. She was brought in because of bilateral eye irritation. She was treated for conjunctivitis and then hydrated and was to be sent back to her son's care. However he did not want to pick her up. Her urine then grew E. coli a day later. Face was felt to have cellulitis while in the ER. She had a temperature 38.7. As such she was admitted 06/05 for IV ceftriaxone and vancomycin. Urine grew out E. coli on June 02. Blood cultures when she had a temperature spike grew out staph epidermidis. However that staph grew out on June 07 from the June 04 blood cultures. Repeat blood cultures June 06 were negative. We do feel that those staph cultures are contaminant.She is completed treatment for her UTI. She has been avoidable day since June 07 and until 06/18. 06/18/22 she grew more somnolent and less talkative. Recheck labs and found to have hyponatremia again with a sodium of 124, potassium 5.2. BUN 35 creatinine 0.8. She had been drinking quite a bit of water. We will fluid restrict her to, given her some normal saline, and sodium is now 132 with potassium 5.1 , she is refusing an IV again since 06/23. Will check BMP on 06/26/22 We thought we were going to be able to discharge her to her son's care in a safe living environment on June 23. However her son's plans fell through. Social work is assiduously working on the problem. Problems resolved: E. coli UTI Conjunctivitis History of coronary artery disease COPD without exacerbation History of DVTs Facial cellulits we are awaiting placement plans again.
[2022-06-25] MEDS: MIRTAZAPINE 15 MG TABLET PO SCH (20:25)
[2022-06-26] MEDS: PANTOPRAZOLE 40 MG TABLET PO SCH (06:07)
[2022-06-26] MEDS: GABAPENTIN 300 MG CAPSULE PO SCH ×3 (06:08→21:20)
[2022-06-26] MEDS: APIXABAN 5 MG TABLET PO SCH ×2 (08:18→20:00)
[2022-06-26] MEDS: LOSARTAN 50 MG TABLET PO SCH (08:18)
[2022-06-26] MEDS: DOCUSATE SODIUM 250 MG CAPSULE PO SCH (08:18)
[2022-06-26] MEDS: MULTIVITAMIN W/MINERALS TABLET PO SCH (08:18)
[2022-06-26] MEDS: METOPROLOL TARTRATE 25 MG TABLET PO SCH ×2 (08:19→20:00)
[2022-06-26] MEDS: IBUPROFEN 400 MG TABLET PO PRN ×2 (14:23→21:20)
[2022-06-26] MEDS: LIDOCAINE PATCH 5% TOP PRN (15:08)
--- NOTE | 2022-06-26 16:03 | PROVIDER PROGRESS NOTE ---
Progress Note June 26, 2022 4 PM No changes. We have tentative acceptance from [facility] in [place]. We are just awaiting [place] conversation with the POA/son on Tuesday (today is Tuesday). No new events. Vitals been stable. No fevers. Temperature is 36.7. Heart rate 72. Blood pressure 133/45. Respirations 16. 95% on room air. Gavi elderly female. Eating 100% of her food. Weight on admission was 62.5 kg. She is now 69.5 kg with regular eating. Neck is supple. Lungs are clear to auscultation and percussion. Regular rate and rhythm. Abdomen is soft, nontender. She is ambulating in her room. Watches TV. Declines walking in the hallway. She has been avoidable day since June 07 and until 06/18. 06/18/22 she grew more somnolent and less talkative. Recheck labs and found to have hyponatremia again with a sodium of 124, potassium 5.2. BUN 35 creatinine 0.8. She had been drinking quite a bit of water. We will fluid restrict her to, given her some normal saline, and sodium is now 132 with potassium 5.1 , she is refusing an IV again since 06/23. And labs reviewed struggling with hyponatremia and hyperkalemia. Today's labs show a sodium of 132, a potassium of 6.3. BUN is 37, creatinine is 0.7. Assessment/plan: Recurrent problem of hyperkalemia. She really is refusing IVs but I am going to try and put an IV in her, give her D50, and then followed by 10 units of IV push insulin. Recheck 2 hours after that. Chronic/resolved problems: We thought we were going to be able to discharge her to her son's care in a safe living environment on June 23. However her son's plans fell through. Social work is assiduously working on the problem. E. coli UTI Conjunctivitis History of coronary artery disease COPD without exacerbation History of DVTs Facial cellulits we are awaiting placement plans again.
[2022-06-26 16:38] LABS: CALCIUM 8.9 mg/dL (8.5-10.3); CREATININE 0.7 mg/dL (0.4-1.0)
[2022-06-26 16:39] LABS: POTASSIUM 6.3 mmol/L (3.5-5.0)
[2022-06-26] MEDS ORDERED: DEXTROSE 50% ABBOJECT 25 GM/50 ML SYRINGE IVP ONE (17:17)
[2022-06-26] MEDS ORDERED: INSULIN REGULAR HUMAN 300 UNIT/3 ML VIAL IVP ONE (17:18)
[2022-06-26] MEDS: MIRTAZAPINE 15 MG TABLET PO SCH (20:00)
[2022-06-26 21:28] LABS: CALCIUM 8.9 mg/dL (8.5-10.3); CREATININE 0.7 mg/dL (0.4-1.0); POTASSIUM 5.1 mmol/L (3.5-5.0)
[2022-06-27] MEDS: PANTOPRAZOLE 40 MG TABLET PO SCH (05:14)
[2022-06-27] MEDS: GABAPENTIN 300 MG CAPSULE PO SCH ×3 (05:14→21:22)
[2022-06-27] MEDS: APIXABAN 5 MG TABLET PO SCH ×2 (08:19→21:22)
[2022-06-27] MEDS: DOCUSATE SODIUM 250 MG CAPSULE PO SCH (08:20)
[2022-06-27] MEDS: LOSARTAN 50 MG TABLET PO SCH (08:20)
[2022-06-27] MEDS: METOPROLOL TARTRATE 25 MG TABLET PO SCH ×2 (08:21→21:24)
[2022-06-27] MEDS: SODIUM POLYSTYRENE SULFONATE 15 GM/60 ML BOTTLE PO SCH (08:21)
[2022-06-27] MEDS: MULTIVITAMIN W/MINERALS TABLET PO SCH (11:36)
--- NOTE | 2022-06-27 13:16 | PROVIDER PROGRESS NOTE ---
Subjective - Prog Note Date Prog Note Date: 06/27/22 Prog Note Time: 13:16 - Subjective Subjective: She is quiet, muted affect. Not tearful. Knows where she is and just wants to go home with her son. Even though she acknowledges that sometimes is very cold and wet living outdoors in the winter, she would prefer to be with him and the dogs then be without him. She is currently eating 100% of her meals. Has been doing so since her admission. Very rarely which she cannot eat. Current Medications - Current Medications Current Medications: Active Medications Apixaban (Apixaban 5 Mg Tablet) 5 mg PO BID [facility] Last Admin: 06/27/22 08:19 Dose: 5 mg Carboxymethylcellulose (Carboxymethylcellulose Ophth Drops) 1 drops EACHEYE PRN PRN PRN Reason: Dry Eye Last Admin: 06/15/22 17:08 Dose: 1 drops Docusate Sodium (Docusate Sodium 250 Mg Capsule) 250 - 500 mg PO DAILY [facility] Last Admin: 06/27/22 08:20 Dose: Not Given Gabapentin (Gabapentin 300 Mg Capsule) 300 mg PO TID [facility] Last Admin: 06/27/22 13:21 Dose: 300 mg Guaifenesin (Guaifenesin/Dextromethorphan 10 Ml Udc) 10 ml PO Q6HR PRN PRN Reason: Cough Ibuprofen (Ibuprofen 400 Mg Tablet) 400 mg PO Q6HR PRN PRN Reason: PAIN Last Admin: 06/27/22 13:20 Dose: 400 mg Lidocaine (Lidocaine Patch 5%) 1 patch TOP DAILY PRN PRN Reason: PAIN Last Admin: 06/26/22 15:08 Dose: 1 patch Losartan Potassium (Losartan 50 Mg Tablet) 25 mg PO DAILY [facility] Last Admin: 06/27/22 08:20 Dose: 25 mg Metoprolol Tartrate (Metoprolol Tartrate 25 Mg Tablet) 25 mg PO BID [facility] Last Admin: 06/27/22 08:21 Dose: 25 mg Mirtazapine (Mirtazapine 15 Mg Tablet) 15 mg PO QPM [facility] Last Admin: 06/26/22 20:00 Dose: 15 mg Multivitamins/Minerals (Multivitamin W/Minerals Tablet) 1 tab PO DAILYWM [facility] Last Admin: 06/27/22 11:36 Dose: 1 tab Nitroglycerin (Nitroglycerin Sl 0.4 Mg Tablet) 0.4 mg SL Q5MIN PRN PRN Reason: Chest Pain Ondansetron HCl (Ondansetron 4 Mg/2 Ml Vial) 4 mg IVP Q6HR PRN PRN Reason: Nausea / Vomiting Pantoprazole Sodium (Pantoprazole 40 Mg Tablet) 40 mg PO QDAC [facility] Last Admin: 06/27/22 05:14 Dose: 40 mg Polyethylene Glycol (Polyethylene Glycol 3350 17 Gm Packet) 17 gm PO DAILY PRN PRN Reason: Constipation Sodium Polystyrene Sulfonate (Sodium Polystyrene Sulfonate 15 Gm/60 Ml Bottle) 15 gm PO DAILY [facility] Last Admin: 06/27/22 08:21 Dose: 15 g Albuterol Sulfate [Proair Hfa Inhaler] 2 puffs INH Q6H PRN 03/31/15 Loratadine [Allergy Relief] 10 mg PO DAILY 03/31/15 [place]-3 Fatty Acids/Fish Oil [[place] 3 1,000 mg Softgel] 1 gm PO DAILY 03/31/15 Objective - Vital Signs/Intake & Output Reviewed Vital Signs: Yes Vital Signs: Vital Signs x48h Temp Pulse Resp BP Pulse Ox 06/27/22 07:21 36.5 C 81 16 112/88 H 92 Intake & Output: Intake & Output 06/24/22 06/25/22 06/26/22 06/27/22 23:59 23:59 23:59 23:59 Intake Total 1492 1560 2590 570 Output Total 2600 2250 1800 1100 Balance -1108 -690 790 -530 - Objective General Appearance: positive: Alert, Other (Frail elderly female, who has been steadily gaining weight since being here.) Eyes Bilateral: positive: PERRL ENT: positive: No signs of dehydration Neck: positive: No JVD Respiratory: positive: No respiratory distress. negative: Wheezes, Rales, Rhonchi Cardiovascular: positive: Regular rate & rhythm Abdomen: positive: Non-tender, No organomegaly, Nml bowel sounds, No distention Skin: positive: No rash, Warm, Pallor Extremities: positive: Non-tender, Pedal edema Neurologic/Psychiatric: positive: CN's nml (2-12), Motor nml, Disoriented to time (Is oriented to place and person but easily forgetful.) - Lab Results Fish Bones: 06/22/22 05:18 06/26/22 21:13 Other Labs: Lab Results x24hrs 06/26/22 06/26/22 Range/Units 21:13 16:15 Sodium 132 L 132 L (135-145) mmol/L Potassium 5.1 H 6.3 H* (3.5-5.0) mmol/L Chloride 99 L 99 L (101-111) mmol/L Carbon Dioxide 27 28 (21-32) mmol/L Anion Gap 6.0 5.0 L (6-13) BUN 34 H 37 H (6-20) mg/dL Creatinine 0.7 0.7 (0.4-1.0) mg/dL Estimated GFR (MDRD) 80 L 80 L (>89) Glucose 107 H 71 (70-100) mg/dL Calcium 8.9 8.9 (8.5-10.3) mg/dL Assessment/Plan - Problem List (1) Hyponatremia Impression: Developed during her stay. She was 141 on admission. Was stabilized, treated for UTI, and we were stopping IV fluids. On the we check labs after not being checked since June 08. That was a conscious decision not to do daily labs and she was stable. Sodium was 124. Since then with intermittent IV fluid hydration and encouraging the patient to eat and drink sodium has been stable at 132 for the last few days. She really does not like the IVN, and sometimes it falls out and she does not let us put it back in again. At this time she is eating, drinking. Sodium staying stable. (2) Hyperkalemia Impression: She let us put in another IV June 26. I gave her an amp of D50, followed by 10 units of IV push insulin. Potassium was 6.3 and came down to 5.1. I have looked at her home medications and she is not on any medications that would give her potassium retention. Except for Cozaar. Here, again, the only medication that I can see would be giving her potassium retention is Cozaar. Plan: Daily Kayexalate. Chronic/resolved problems: We thought we were going to be able to discharge her to her son's care in a safe living environment on June 23. However her son's plans fell through. Social work is assiduously working on the problem. E. coli UTI Conjunctivitis History of coronary artery disease COPD without exacerbation History of DVTs Facial cellulits we are awaiting placement plans again.
[2022-06-27] MEDS: IBUPROFEN 400 MG TABLET PO PRN ×2 (13:20→21:22)
[2022-06-27] MEDS: LIDOCAINE PATCH 5% TOP PRN (15:55)
[2022-06-27] MEDS ORDERED: PHENAZOPYRIDINE 100 MG TABLET PO SCH (19:00)
[2022-06-27 21:10] LABS: BILIRUBIN,URINE NEGATIVE (NEGATIVE); GLUCOSE, URINE (UA) NEGATIVE (NEGATIVE); KETONES,URINE (UA) NEGATIVE (NEGATIVE); LEUKOCYTE ESTERASE, URINE TRACE (NEGATIVE); NITRITE,URINE NEGATIVE (NEGATIVE); OCCULT BLOOD,URINE NEGATIVE (NEGATIVE); PROTEIN,URINE NEGATIVE (NEGATIVE); UROBILINOGEN,URINE 0.2 (NORMAL) E.U./dL (NORMAL)
[2022-06-27 21:13] LABS: CLARITY,URINE CLEAR (CLEAR)
[2022-06-27 21:22] LABS: BACTERIA,URINE Rare /HPF (None Seen); RBC,URINE 0-5 /HPF (0-5); SQUAMOUS EPITHELIAL CELL,UR FEW Squamous (<= Few)
[2022-06-27] MEDS: MIRTAZAPINE 15 MG TABLET PO SCH (21:22)
[2022-06-28] MEDS: PHENAZOPYRIDINE 100 MG TABLET PO SCH ×4 (02:19→21:23)
[2022-06-28] MEDS: GABAPENTIN 300 MG CAPSULE PO SCH ×3 (06:10→21:22)
[2022-06-28] MEDS: PANTOPRAZOLE 40 MG TABLET PO SCH (06:10)
[2022-06-28 06:41] LABS: CALCIUM 8.5 mg/dL (8.5-10.3); CREATININE 0.9 mg/dL (0.4-1.0); POTASSIUM 4.9 mmol/L (3.5-5.0)
[2022-06-28] MEDS: DOCUSATE SODIUM 250 MG CAPSULE PO SCH (08:09)
[2022-06-28] MEDS: LOSARTAN 50 MG TABLET PO SCH (08:09)
[2022-06-28] MEDS: MULTIVITAMIN W/MINERALS TABLET PO SCH (08:09)
[2022-06-28] MEDS: APIXABAN 5 MG TABLET PO SCH ×2 (08:11→21:22)
[2022-06-28] MEDS: SODIUM POLYSTYRENE SULFONATE 15 GM/60 ML BOTTLE PO SCH (08:12)
[2022-06-28] MEDS: METOPROLOL TARTRATE 25 MG TABLET PO SCH ×2 (10:54→21:21)
[2022-06-28] MEDS: IBUPROFEN 400 MG TABLET PO PRN (10:54)
[2022-06-28] MEDS: CARBOXYMETHYLCELLULOSE OPHTH DROPS EACHEYE PRN (11:09)
--- NOTE | 2022-06-28 14:49 | PROVIDER PROGRESS NOTE ---
Subjective - Prog Note Date Prog Note Date: 06/28/22 Prog Note Time: 14:47 - Subjective Subjective: She was asleep this morning. I did not want to wake her up. Came back around breakfast time and she was up eating breakfast. Alert. She does not quite know that this is a hospital and she just knows that she is in a facility and does not want to be here. She keeps on stating that she wants to be home with her son. She does recognize that they were homeless and were living in bad conditions. She remembers being cold and sometimes hungry but she says that that was okay because she was with her son and her dog. Currently, social work is still in the process of trying to find placement for her. Tentatively she may be going to [facility] in [place]. Jckevin is talking to the POA/son today to get the paperwork finalized. She may be disch arged as soon as tomorrow. Twice now I have initiated discharge plan, got everything ready for discharge. This is on the basis of the son agreeing to the discharge disposition. And at the last second he is change his mind. So until she is actually leaving the building I will not to discharge plan She complained of urgency and dysuria yesterday. Started on Pyridium. Wanting to give her 3 days. Urinalysis was completely clean of UTI Current Medications - Current Medications Current Medications: Active Medications Apixaban (Apixaban 5 Mg Tablet) 5 mg PO BID [facility] Last Admin: 06/28/22 08:11 Dose: 5 mg Carboxymethylcellulose (Carboxymethylcellulose Ophth Drops) 1 drops EACHEYE PRN PRN PRN Reason: Dry Eye Last Admin: 06/28/22 11:09 Dose: 2 drops Docusate Sodium (Docusate Sodium 250 Mg Capsule) 250 - 500 mg PO DAILY [facility] Last Admin: 06/28/22 08:09 Dose: 250 mg Gabapentin (Gabapentin 300 Mg Capsule) 300 mg PO TID [facility] Last Admin: 06/28/22 14:13 Dose: 300 mg Guaifenesin (Guaifenesin/Dextromethorphan 10 Ml Udc) 10 ml PO Q6HR PRN PRN Reason: Cough Ibuprofen (Ibuprofen 400 Mg Tablet) 400 mg PO Q6HR PRN PRN Reason: PAIN Last Admin: 06/28/22 10:54 Dose: 400 mg Lidocaine (Lidocaine Patch 5%) 1 patch TOP DAILY PRN PRN Reason: PAIN Last Admin: 06/27/22 15:55 Dose: 1 patch Losartan Potassium (Losartan 50 Mg Tablet) 25 mg PO DAILY [facility] Last Admin: 06/28/22 08:09 Dose: 25 mg Metoprolol Tartrate (Metoprolol Tartrate 25 Mg Tablet) 25 mg PO BID [facility] Last Admin: 06/28/22 10:54 Dose: Not Given Mirtazapine (Mirtazapine 15 Mg Tablet) 15 mg PO QPM [facility] Last Admin: 06/27/22 21:22 Dose: 15 mg Multivitamins/Minerals (Multivitamin W/Minerals Tablet) 1 tab PO DAILYWM [facility] Last Admin: 06/28/22 08:09 Dose: 1 tab Nitroglycerin (Nitroglycerin Sl 0.4 Mg Tablet) 0.4 mg SL Q5MIN PRN PRN Reason: Chest Pain Ondansetron HCl (Ondansetron 4 Mg/2 Ml Vial) 4 mg IVP Q6HR PRN PRN Reason: Nausea / Vomiting Pantoprazole Sodium (Pantoprazole 40 Mg Tablet) 40 mg PO QDAC [facility] Last Admin: 06/28/22 06:10 Dose: 40 mg Phenazopyridine HCl (Phenazopyridine 100 Mg Tablet) 100 mg PO TID [facility] Last Admin: 06/28/22 14:29 Dose: 100 mg Polyethylene Glycol (Polyethylene Glycol 3350 17 Gm Packet) 17 gm PO DAILY PRN PRN Reason: Constipation Sodium Polystyrene Sulfonate (Sodium Polystyrene Sulfonate 15 Gm/60 Ml Bottle) 15 gm PO DAILY [facility] Last Admin: 06/28/22 08:12 Dose: 15 g Albuterol Sulfate [Proair Hfa Inhaler] 2 puffs INH Q6H PRN 03/31/15 Loratadine [Allergy Relief] 10 mg PO DAILY 03/31/15 [place]-3 Fatty Acids/Fish Oil [[place] 3 1,000 mg Softgel] 1 gm PO DAILY 03/31/15 Objective - Vital Signs/Intake & Output Reviewed Vital Signs: Yes Vital Signs: Vital Signs x48h Temp Pulse Resp BP Pulse Ox 06/28/22 07:33 36.4 C L 66 16 153/50 H 98 Intake & Output: Intake & Output 06/25/22 06/26/22 06/27/22 06/28/22 23:59 23:59 23:59 23:59 Intake Total 1560 2590 1650 820 Output Total 2250 1800 1850 1625 Balance -690 790 -200 -805 - Objective General Appearance: positive: Alert, Other (Elderly, frail, valeria female. She can be easily distracted from her tears. She likes to view outside. Sometimes pointing something out on the TV makes her happy. But then she reverts to being sad and flat because she wants to be with her son) Eyes Bilateral: positive: PERRL, EOMI ENT: positive: No signs of dehydration Neck: positive: No JVD. negative: Stiff neck Respiratory: positive: No respiratory distress. negative: Wheezes, Rales, Rhonchi Cardiovascular: positive: Regular rate & rhythm Abdomen: positive: Non-tender, No distention Skin: positive: Warm, Dry Extremities: positive: Full ROM, No pedal edema Neurologic/Psychiatric: positive: CN's nml (2-12), Motor nml, Depressed mood/affect (Except for generalized weakness. She keeps on refusing IV fluids. She does walk in the room with a gait belt and her walker. She is getting more emotionally withdrawn. Last bowel movement was June 26. She is incontinent of urine and uses a pure wick. Eating 100% of her food.) - Lab Results Fish Bones: 06/22/22 05:18 06/28/22 05:31 Other Labs: Lab Results x24hrs 06/28/22 06/27/22 Range/Units 05:31 21:00 Sodium 129 L (135-145) mmol/L Potassium 4.9 (3.5-5.0) mmol/L Chloride 94 L (101-111) mmol/L Carbon Dioxide 30 (21-32) mmol/L Anion Gap 5.0 L (6-13) BUN 37 H (6-20) mg/dL Creatinine 0.9 (0.4-1.0) mg/dL Estimated GFR (MDRD) 60 L (>89) Glucose 69 L (70-100) mg/dL Calcium 8.5 (8.5-10.3) mg/dL Urine Color YELLOW Urine Clarity CLEAR (CLEAR) Urine pH 6.0 (5.0-7.5) PH Ur Specific [place] 1.015 (1.002-1.030) Urine Protein NEGATIVE (NEGATIVE) mg/dL Urine Glucose (UA) NEGATIVE (NEGATIVE) mg/dL Urine Ketones NEGATIVE (NEGATIVE) mg/dL Urine Occult Blood NEGATIVE (NEGATIVE) Urine Nitrite NEGATIVE (NEGATIVE) Urine Bilirubin NEGATIVE (NEGATIVE) Urine Urobilinogen 0.2 (NORMAL) (NORMAL) E.U./dL Ur Leukocyte Esterase TRACE H (NEGATIVE) Urine RBC 0-5 (0-5) /HPF Urine WBC 4-5 (0-5) /HPF Ur Squamous Epith Cells FEW Squamous (<= Few) Urine Bacteria Rare (None Seen) /HPF Ur Microscopic Review INDICATED Urine Culture Comments INDICATED Assessment/Plan - Problem List (1) Hyponatremia Impression: Developed during her stay. She was 141 on admission. Was stabilized, treated for UTI, and we were stopping IV fluids. On the we check labs after not being checked since June 08. That was a conscious decision not to do daily labs becayse she was stable. Sodium was 124. Since then with intermittent IV fluid hydration and encouraging the patient to eat and drink sodium has been stable at 132 for the last few days. She really does not like the IVN, and sometimes it falls out and she does not let us put it back in again. Today sodium is 129. June when she was +790 cc for fluid balance. June 27 she was -200 cc. Today she is -805 cc so far by 3 PM. We will add salt tablets to see if that helps. She is drinking fluids. She is eating 100% of her food. (2) Hyperkalemia Impression: She let us put in another IV June 26. I gave her an amp of D50, followed by 10 units of IV push insulin. Potassium was 6.3 and came down to 5.1. I have looked at her home medications and she is not on any medications that would give her potassium retention. Except for Cozaar. Here, again, the only medication that I can see would be giving her potassium retention is Cozaar. Plan: Daily Kayexalate. Chronic/resolved problems: We thought we were going to be able to discharge her to her son's care in a safe living environment on June 23. However her son's plans fell through. Social work is assiduously working on the problem. E. coli UTI Conjunctivitis History of coronary artery disease COPD without exacerbation History of DVTs Facial cellulits we are awaiting placement plans again.
[2022-06-28] MEDS: LIDOCAINE PATCH 5% TOP PRN (16:36)
[2022-06-28] MEDS: MIRTAZAPINE 15 MG TABLET PO SCH (21:22)
[2022-06-29] MEDS ORDERED: SODIUM CHLORIDE 0.9% 500 ML IV PRN (01:41)
[2022-06-29 05:18] LABS: CALCIUM 8.7 mg/dL (8.5-10.3); CREATININE 0.7 mg/dL (0.4-1.0); POTASSIUM 4.9 mmol/L (3.5-5.0)
[2022-06-29] MEDS: GABAPENTIN 300 MG CAPSULE PO SCH ×3 (07:00→21:34)
[2022-06-29] MEDS: PHENAZOPYRIDINE 100 MG TABLET PO SCH ×3 (07:00→21:36)
[2022-06-29] MEDS: PANTOPRAZOLE 40 MG TABLET PO SCH (07:01)
[2022-06-29] MEDS: APIXABAN 5 MG TABLET PO SCH ×2 (08:44→21:36)
[2022-06-29] MEDS: DOCUSATE SODIUM 250 MG CAPSULE PO SCH (08:44)
[2022-06-29] MEDS: MULTIVITAMIN W/MINERALS TABLET PO SCH (08:44)
[2022-06-29] MEDS: LOSARTAN 50 MG TABLET PO SCH (08:45)
[2022-06-29] MEDS: METOPROLOL TARTRATE 25 MG TABLET PO SCH ×2 (08:45→21:37)
[2022-06-29] MEDS: SODIUM CHLORIDE FLUSH 0.9% 10 ML SYRINGE IVP SCH ×2 (08:46→21:36)
[2022-06-29] MEDS: SODIUM POLYSTYRENE SULFONATE 15 GM/60 ML BOTTLE PO SCH (08:46)
[2022-06-29] MEDS: IBUPROFEN 400 MG TABLET PO PRN (10:40)
--- NOTE | 2022-06-29 13:51 | PROVIDER PROGRESS NOTE ---
Assessment/Plan - Problem List (1) Hyponatremia Assessment/Plan: This developed during her stay here. Serum Na was 141 on admission. She was stabilized, treated for UTI, and we stopped IV fluids. On the 06/18 we checked labs after not being checked since 06/08. Sodium was 124. Since then we have followed labs daily and with intermittent IV saline fluid hydration and encouraging the patient to eat and by ordering a free water restriction, her sodium has been stable at 132 for the last few days. She really does not like the IV, and sometimes it falls out and she does not let us put it back in again. We have added daily salt tablets to see if that helps. She is eating 100% of her food. (2) Hyperkalemia Impression: She let us put in another IV June 26. We gave her an amp of D50, followed by 10 units of IV push insulin to treat a Potassium of 6.3 that came down to 5.1. Her home medications were reviewed and she was not on any medications that would give her potassium retention, except for Cozaar. Here, again, the only medication that I can see would be giving her potassium retention is Cozaar. Plan: Daily Kayexalate now ordered. We will stop the Cozaar. Will start Amlodipine in its place. Follow BMP daily Will stop the Kayexalate after the potassium is in a safe range (3) Cognitive impairment Assessment/Plan: On 06/07/22, she underwent cognitive eval and scored 14/30, indicating moderate cognitive impairment. This is likely from her old stroke. This made her impulsive. She worked with OT to stay functional and is redirectable, communicates well, follows directions. She still wanted to live in a tent with her son, who is homeless; once she commented to OT that "she would be too cold in a tent". We are looking for placement for her. However, according to SW, the son did not give consent in the past. We thought we were going to be able to discharge her to her son's care in a safe living environment twice, but her son's plans fell through. Social work is assiduously working on the placement plans again. Other chronic and resolved Diagnoses: (4) History of CVA (cerebrovascular accident) (5) Homeless family (6) Hx of coronary artery disease (7) COPD without exacerbation (J44.9) (8) History of blood clots (9) E. coli UTI, treated (10) Conjunctivitis, resolved (11) Facial cellulitis, resolved - Current Meds Current Meds: Current Medications Generic Name Dose Route Start Last Admin Trade Name Freq PRN Reason Stop Dose Admin Apixaban 5 mg 06/03/22 21:00 06/29/22 08:44 Apixaban 5 Mg Tablet PO 5 mg BID DENILSON Administration Carboxymethylcellulose 1 drops 06/12/22 15:42 06/28/22 11:09 Carboxymethylcellulose Ophth Drops EACHEYE 2 drops PRN PRN Administration Dry Eye Docusate Sodium 250 - 500 mg 06/23/22 11:00 06/29/22 08:44 Docusate Sodium 250 Mg Capsule PO 250 mg DAILY DENILSON Administration Gabapentin 300 mg 06/15/22 10:00 06/29/22 13:32 Gabapentin 300 Mg Capsule PO 300 mg TID DENILSON Administration Ibuprofen 400 mg 06/19/22 12:11 06/29/22 10:40 Ibuprofen 400 Mg Tablet PO 400 mg Q6HR PRN Administration PAIN Lidocaine 1 patch 06/13/22 16:11 06/28/22 16:36 Lidocaine Patch 5% TOP 1 patch DAILY PRN Administration PAIN Losartan Potassium 25 mg 06/03/22 13:00 06/29/22 08:45 Losartan 50 Mg Tablet PO 25 mg DAILY DENILSON Administration Metoprolol Tartrate 25 mg 06/14/22 21:00 06/29/22 08:45 Metoprolol Tartrate 25 Mg Tablet PO 25 mg BID DENILSON Administration Mirtazapine 15 mg 06/03/22 21:00 06/28/22 21:22 Mirtazapine 15 Mg Tablet PO 15 mg QPM DENILSON Administration Multivitamins/Minerals 1 tab 06/15/22 08:00 06/29/22 08:44 Multivitamin W/Minerals Tablet PO 1 tab DAILYWM DENILSON Administration Pantoprazole Sodium 40 mg 06/07/22 07:00 06/29/22 07:01 Pantoprazole 40 Mg Tablet PO 40 mg QDAC DENILSON Administration Phenazopyridine HCl 100 mg 06/28/22 02:00 06/29/22 13:32 Phenazopyridine 100 Mg Tablet PO 100 mg TID DENILSON Administration Sodium Chloride 10 ml 06/29/22 09:00 06/29/22 08:46 Sodium Chloride Flush 0.9% 10 Ml Syringe IVP 10 ml 0100,0900,1700 DENILSON Administration Sodium Polystyrene Sulfonate 15 gm 06/27/22 09:00 06/29/22 08:46 Sodium Polystyrene Sulfonate 15 Gm/60 Ml Bottle PO 15 g DAILY DENILSON Administration - Lab Result Fish Bone Diagrams: 06/22/22 05:18 06/29/22 04:47 Subjective - Subjective Patient Reports: Resting Comfortably, No Complaints Objective Vital Signs: Vital Signs - 24 hr 06/28/22 06/28/22 06/29/22 15:45 21:21 07:37 Temperature 36.7 C 36.7 C Heart Rate [ 63 66 Brachial] Respiratory 20 20 Rate Blood Pressure 129/48 L Blood Pressure 132/56 H [Left Brachial artery] Blood Pressure 138/47 H [Right Brachial artery] O2 Saturation 95 93 06/29/22 08:45 Temperature Heart Rate [ Brachial] Respiratory Rate Blood Pressure 132/56 H Blood Pressure [Left Brachial artery] Blood Pressure [Right Brachial artery] O2 Saturation Oxygen O2 Source Room air I&O (Last 24 Hrs): Intake and Output Totals x24h 06/27/22 06/28/22 06/29/22 23:59 23:59 23:59 Intake Total 1650 1477 840 Output Total 1850 3175 2050 Balance -200 -1698 -1210 General: Alert, No acute distress HEENT: Mucous membr. moist/pink Neck: Supple, No JVD Neuro: Alert, Disoriented (to place and time (poor memory)) Cardiovascular: Regular rate Respiratory: No respiratory distress Abdomen: Soft Extremities: No edema - Results Results: Laboratory Results WBC 6.0 x10^3/uL (4.8-10.8) 06/22/22 05:18 RBC 2.97 10^6/uL (4.20-5.40) L 06/22/22 05:18 Hgb 9.2 g/dL (12.0-16.0) L 06/22/22 05:18 Hct 28.7 % (37.0-47.0) L 06/22/22 05:18 MCV 96.6 fL (81.0-99.0) 06/22/22 05:18 MCH 31.0 pg (27.0-31.0) 06/22/22 05:18 MCHC 32.1 g/dL (32.0-36.0) 06/22/22 05:18 RDW 15.3 % (12.0-15.0) H 06/22/22 05:18 Plt Count 234 10^3/uL (130-450) 06/22/22 05:18 MPV 9.4 fL (7.9-10.8) 06/22/22 05:18 Neut # (Auto) 3.5 10^3/uL (1.5-6.6) 06/22/22 05:18 Lymph # (Auto) 1.7 10^3/uL (1.5-3.5) 06/22/22 05:18 Moody # (Auto) 0.6 10^3/uL (0.0-1.0) 06/22/22 05:18 Eos # (Auto) 0.2 10^3/uL (0.0-0.7) 06/22/22 05:18 Baso # (Auto) 0.0 10^3/uL (0.0-0.1) 06/22/22 05:18 Absolute Nucleated RBC 0.00 x10^3/uL 06/22/22 05:18 Nucleated RBC % 0.0 /100WBC 06/22/22 05:18 Sodium 132 mmol/L (135-145) L 06/29/22 04:47 Potassium 4.9 mmol/L (3.5-5.0) 06/29/22 04:47 Chloride 97 mmol/L (101-111) L 06/29/22 04:47 Carbon Dioxide 29 mmol/L (21-32) 06/29/22 04:47 Anion Gap 6.0 (6-13) 06/29/22 04:47 BUN 33 mg/dL (6-20) H 06/29/22 04:47 Creatinine 0.7 mg/dL (0.4-1.0) 06/29/22 04:47 Estimated GFR (MDRD) 80 (>89) L 06/29/22 04:47 Glucose 77 mg/dL (70-100) 06/29/22 04:47 Lactic Acid 1.7 mmol/L (0.5-2.2) 06/06/22 09:00 Calcium 8.7 mg/dL (8.5-10.3) 06/29/22 04:47 Magnesium 2.3 mg/dL (1.7-2.8) 06/18/22 07:20 Total Bilirubin 0.8 mg/dL (0.2-1.0) 06/04/22 14:40 AST 19 IU/L (10-42) 06/04/22 14:40 ALT 12 IU/L (10-60) 06/04/22 14:40 Alkaline Phosphatase 87 IU/L (42-121) 06/04/22 14:40 C-Reactive Protein 4.9 mg/dL (0-1.0) H 06/07/22 06:12 Total Protein 7.5 g/dL (6.7-8.2) 06/04/22 14:40 Albumin 3.8 g/dL (3.2-5.5) 06/04/22 14:40 Globulin 3.7 g/dL (2.1-4.2) 06/04/22 14:40 Albumin/Globulin Ratio 1.0 (1.0-2.2) 06/04/22 14:40 Lipase 28 U/L (22-51) 06/04/22 14:40 Urine Color YELLOW 06/27/22 21:00 Urine Clarity CLEAR (CLEAR) 06/27/22 21:00 Urine pH 6.0 PH (5.0-7.5) 06/27/22 21:00 Ur Specific [place] 1.015 (1.002-1.030) 06/27/22 21:00 Urine Protein NEGATIVE mg/dL (NEGATIVE) 06/27/22 21:00 Urine Glucose (UA) NEGATIVE mg/dL (NEGATIVE) 06/27/22 21:00 Urine Ketones NEGATIVE mg/dL (NEGATIVE) 06/27/22 21:00 Urine Occult Blood NEGATIVE (NEGATIVE) 06/27/22 21:00 Urine Nitrite NEGATIVE (NEGATIVE) 06/27/22 21:00 Urine Bilirubin NEGATIVE (NEGATIVE) 06/27/22 21:00 Urine Urobilinogen 0.2 (NORMAL) E.U./dL (NORMAL) 06/27/22 21:00 Ur Leukocyte Esterase TRACE (NEGATIVE) H 06/27/22 21:00 Urine RBC 0-5 /HPF (0-5) 06/27/22 21:00 Urine WBC 4-5 /HPF (0-5) 06/27/22 21:00 Urine WBC Clumps PRESENT 06/02/22 17:25 Ur Squamous Epith Cells FEW Squamous (<= Few) 06/27/22 21:00 Urine Bacteria Rare /HPF (None Seen) 06/27/22 21:00 Ur Microscopic Review INDICATED 06/27/22 21:00 Urine Culture Comments INDICATED 06/27/22 21:00 SARS-CoV-2 (PCR) NOT DETECTED 06/05/22 17:53 - Procedures Procedures: Procedures INSPECTION OF UPPER INTESTINAL TRACT, ENDO (05/16/18) LOCAL EXCIS BREAST LES (04/01/15)
[2022-06-29] MEDS: MIRTAZAPINE 15 MG TABLET PO SCH (21:34)
[2022-06-30] MEDS: SODIUM CHLORIDE FLUSH 0.9% 10 ML SYRINGE IVP SCH ×3 (00:58→18:47)
[2022-06-30] MEDS: IBUPROFEN 400 MG TABLET PO PRN ×3 (02:38→18:47)
[2022-06-30 05:11] LABS: CALCIUM 8.5 mg/dL (8.5-10.3); CREATININE 0.8 mg/dL (0.4-1.0); POTASSIUM 4.7 mmol/L (3.5-5.0)
[2022-06-30] MEDS: PHENAZOPYRIDINE 100 MG TABLET PO SCH ×3 (06:57→21:33)
[2022-06-30] MEDS: GABAPENTIN 300 MG CAPSULE PO SCH ×3 (06:57→21:33)
[2022-06-30] MEDS: PANTOPRAZOLE 40 MG TABLET PO SCH (06:57)
[2022-06-30] MEDS: CARBOXYMETHYLCELLULOSE OPHTH DROPS EACHEYE PRN (07:04)
[2022-06-30] MEDS: METOPROLOL TARTRATE 25 MG TABLET PO SCH ×2 (08:37→21:33)
[2022-06-30] MEDS: DOCUSATE SODIUM 250 MG CAPSULE PO SCH (08:37)
[2022-06-30] MEDS: SODIUM POLYSTYRENE SULFONATE 15 GM/60 ML BOTTLE PO SCH (08:37)
[2022-06-30] MEDS: MULTIVITAMIN W/MINERALS TABLET PO SCH (08:38)
[2022-06-30] MEDS: amLODIPine 5 MG TABLET PO SCH (08:38)
[2022-06-30] MEDS: APIXABAN 5 MG TABLET PO SCH ×2 (08:38→21:33)
--- NOTE | 2022-06-30 10:06 | Discharge Plan ---
"Discharge Plan for SNF / [facility] - Discharge Plan And Transition Orders Problem Reviewed?: Yes Disposition: 03 SNF DC/Xfer Condition: Stable Allergies and Adverse Reactions: Allergies Allergy/AdvReac Type Severity Reaction Status Date / Time furosemide Allergy Intermediate Rash Verified 06/02/22 16:45 Penicillins Allergy Rash Verified 06/02/22 16:45 lisinopril AdvReac Mild Cough Verified 06/02/22 16:45 Health Concerns: You were a homeless elderly female who was brought to the Emergency Room by your son for conjunctivitis and a urinary tract infection. He opted not to pick you up and you stayed with us for many days. We did wonder at one point if the infection had spread to your blood stream but it had not. You have responded to eye medicine and antibiotics for your urinary tact infection and still take a medicine for burning with urination. While you were here, we did find you to have memory loss, probably caused by your prior stroke, and your score card for memory showed you scored 14/30 (the highest points are 30). We also started to treat your high blood pressure and your previous history of blood clots, with prescription medicines. At this time you are being discharged to an Adult Family Home. We have newly prescribed all your medications. Plan of Treatment: 1. You will be discharged to live in an Adult Family Home, and your son knows. 2. You have been prescribed medications and need supervision daily to take them correctly. 3. Please establish with a Primary Care Provider in the next 2-3 weeks for followup. Care Goals: To remain in a safe environment where you are fed, kept warm, and given your medications on a regular basis, plus a bath or shower 3 times a week. We also would like you to have clean clothes on a regular basis. Assessment: This patient has memory loss and has tangential conversations. She is most likely not able to make her own financial or healthcare decisions because of dementia. Son is financial and [employer]. Adult Protective Services will be following the case. - SNF / SNF Transition Orders Admit to (Facility): [facility] Under the care of (Name): Needs to estabish with a local PCP Discharge Diagnosis: 1) Dementia/Cognitive impairment 2) Old stroke 3) HTN 4) Hyponatremia, stabilized 5) Hyperkalemia, stabilized 6) Hx of blood clots 7) Hyperlipidemia 8) UTI, treated 9) Chronic pain Medicare Certification Statement: I certify that Post Hospital assisted care is medically necessary on a continuing basis for any of the conditions for which she/he is receiving care during hospitalization. Notify PCP of admission and forward orders to primary provider for signature. Other Notification Orders: Call PCP immediately if patient develops dyspnea, chest pain/tightness or edema. House Bowel Program: Yes Additional Bowel Program Orders: If no BM after 2 days, nurse may give M.O.M. 30ml PO PRN and/or ducolax Supp 1 ID and/or ROSANNA 250mg P.O., and/or senna 1-2 tabs PO. On day 3 nurse may give repeat above order until residents constipation is resolved. Annual Influenza Vaccine (between May 27 and December 24): Yes Two-step PPD per [facility] [phone] or approved exception documents: Yes Lab Tests or X-ray Orders: BMP blood test every Mon for 1 month to check Sodium and Potassium Medication Orders: PLEASE REFER TO THE DISCHARGE MEDICATION LIST. Insulin Orders?: No - Medications New Prescriptions: Nitroglycerin [Nitrostat] 0.4 mg SL Q5MIN PRN #30 tab PRN Reason: Chest Pain Atorvastatin Calcium 40 mg PO QPM #30 tab Apixaban [Eliquis] 5 mg PO BID #30 tab Metoprolol Tartrate [Lopressor] 25 mg PO BID #60 tab Gabapentin [Neurontin] 300 mg PO TID #90 cap Pantoprazole Sodium [Protonix] 40 mg PO DAILY #30 tab Phenazopyridine [Pyridium] 100 mg PO TID #21 tab Mirtazapine [Remeron] 15 mg PO QPM #30 tab - Diet Type: Geriatric Texture: Mech soft (Minced and moist) Liquids: Thin (Limit water intake to 2L per day max, all other liquids are OK to take ad greg) Supplements: Protein suppl drink 4 oz daily in afternoon May have monthly special meal: Yes - Therapies | Activity Rehabilitation Potential: Maintain present ADL Functional Activity: Activity as Tolerated Assistance Devices: Walker, Cane Follow Up: Patient needs to establish with a new PCP in [place]"
--- NOTE | 2022-06-30 10:25 | DISCHARGE SUMMARY ---
Discharge Summary Admit Date: 06/05/22 Discharge Date: 07/01/22 Discharging Provider: Dr Stephanie Ayers Primary Care Provider: Dr Alyssa Robison Code Status: Attempt Resuscitation Condition at Discharge: Stable Discharge Disposition: 03 SNF DC/Xfer - HPI History of Present Illness: This is an 86-year-old white female who lives with her son and now they are both homeless for unknown period of time. 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 She was brought to the ER on 06/02/2022 by her son, who then left the ER, with c/o bilateral eyes swollen and crusted shut and diagnosed with bilateral conjunctivitis, and was put on eyes drops. Her u/a was also abnormal, but she had normal WBC and normal BMP. The son did not want to return to get her from the ER to take her home. She was boarding in the ER therefore, and social work was involved in the case. On 06/03/22, her urine culture turned positive for E. coli, and she was started on Macrobid. On 06/04/22, she had a fever of 38.7 degrees C and there was evidence of swelling of her face and she was diagnosed with facial cellulitis. Blood cultures were drawn and she had one IV Rocephin given, in addition to being on p.o. Macrobid. Today, 06/05/2022, the blood culture has turned positive for gram-positive cocci. The ED provider reached out to the Hospitalist team to have her admitted for treatment of bacteremia. She has a POLST on record from 2018 which states she wants full treatment and to be a full code. Additional history obtained from ER staff told to our [facility] staff is that the patient used to live in a long-term care facility. The son signed her out of the long-term care facility to live with him and probably in order to get her monthly Social Security check money. They used to live in a trailer. They have been kicked out of the trailer park because of his drug abuse, specifically he used meth and fentanyl. - HOSPITAL COURSE Hospital Course: 1) UTI She completed a course of IV antibiotics. Her blood cultures were not positive. She did continue to need occasional Pyridium for dysuria and was discharged on this new med. 2) Conjunctivitis She completed a course of eyedrops and her symptoms cleared. 3) Dementia Patient was noted to be very forgetful and impulsive. She underwent a SLUMS cognitive evaluation and scored 14/30, indicating moder-severe cognitive impairment. The Social Workers were in contact with APS because of her homeless situation and the situation with her son. Patient first wanted to be discharged to live in a tent with the son then realized that colder weather is approaching. SW worked arrdently to have her accepted at an [facility], which the son initially was opposed to. She was finally discharged to [facility] in [place], in stable condition, which the son agreed to. The patient already has an appointment to a new PCP: she has an appointment at [facility] in [place] on July 13, 2022, at 10 AM. 4) Old stroke As per Hx. She worked with Physical Therapy and Occupational Therapy while here and met all her goals. She uses a front wheel walker or a cane when walking. 3) HTN She was treated with Lopressor, Losartan and Amlodipine in various doses. At the time of discharge, only the Metoprolol was continued and newly prescribed. 5) Hyponatremia Later in the hospital stay, after labs had not been done for a week, while placement was being located, her BMP came back showing her sodium at 124. She was put on free water restriction. She received IV saline on and off. She had salt tablets for just several days. At the time of discharge her daily sodium was running 130-132. Weekly BMP labs to be drawn every Tuesday were ordered to be done to check sodium and potassium levels after discharge. 6) Hyperkalemia This was found when she developed hyponatremia, later during her hospital stay. She needed D50 and insulin once and several oral dose of Kayexalate. Her Los enma was discontinued, since it can add to potassium retention. Weekly BMP labs every Tuesday were ordered to be done to check sodium and potassium levels after discharge. 7) Hx of blood clots Eliquis 5 mg twice daily was restarted 8) Hyperlipidemia She was kept on her home dose of Lipitor 9) Neuropathic pain She was restarted on her gabapentin and had minimal complaints of neck pain and shoulder pain. - ALLERGIES Allergies/Adverse Reactions: Allergies Allergy/AdvReac Type Severity Reaction Status Date / Time furosemide Allergy Intermediate Rash Verified 06/02/22 16:45 Penicillins Allergy Rash Verified 06/02/22 16:45 lisinopril AdvReac Mild Cough Verified 06/02/22 16:45 - MEDICATIONS Home Medications: Ambulatory Orders Medication Instructions Recorded Confirmed Albuterol Sulfate [Proair Hfa 2 puffs INH Q6H PRN 03/31/15 06/03/22 Inhaler] Loratadine [Allergy Relief] 10 mg PO DAILY 03/31/15 06/03/22 Kennedy-3 Fatty Acids/Fish Oil 1 gm PO DAILY 03/31/15 06/03/22 [Kennedy 3 1,000 mg Softgel] polyethylene glycoL 3350 [Miralax] 17 gm PO DAILY PRN #1 bottle 10/10/21 2 Apixaban [Eliquis] 5 mg PO BID #30 tab 06/23/22 Atorvastatin Calcium 40 mg PO QPM #30 tab 06/23/22 Gabapentin [Neurontin] 300 mg PO TID #90 cap 06/23/22 Ibuprofen [Motrin] 400 mg PO Q6HR PRN tab 06/23/22 Metoprolol Tartrate [Lopressor] 25 mg PO BID #60 tab 06/23/22 Mirtazapine [Remeron] 15 mg PO QPM #30 tab 06/23/22 Multivitamin W/Minerals [Theragran 1 tab PO DAILYWM tab 06/23/22 M] Nitroglycerin [Nitrostat] 0.4 mg SL Q5MIN PRN #30 tab 06/23/22 Pantoprazole Sodium [Protonix] 40 mg PO DAILY #30 tab 06/23/22 Benzocaine [Hurricaine] 1 applic ORAL QID PRN 06/30/22 06/30/22 Phenazopyridine [Pyridium] 100 mg PO TID #21 tab 06/30/22 - PHYSICAL EXAM AT DISCHARGE General Appearance: positive: No acute distress, Alert Eyes Bilateral: positive: Normal inspection, EOMI ENT: positive: ENT inspection nml, No signs of dehydration Neck: positive: Nml inspection, No JVD Respiratory: positive: No respiratory distress Cardiovascular: positive: Regular rate & rhythm, No murmur Abdomen: positive: Non-tender, No distention Skin: positive: Warm, Dry Extremities: positive: Non-tender, No pedal edema Neurologic/Psychiatric: positive: Oriented x3 (Non-focal, poor memory.) - LABS Result Diagrams: 06/22/22 05:18 06/30/22 04:45 - DIAGNOSTIC IMAGING Diagnostic Imaging Results: Final report reviewed - FOLLOW UP Follow Up: The patient already has an appointment to a new PCP: she has an appointment at [facility] in [place] on July 13, 2022, at 10 AM (a 9a.m. ar karthik is requested). - TIME SPENT Time Spent in Discharge (Minutes): 50
--- NOTE | 2022-06-30 12:11 | PROVIDER PROGRESS NOTE ---
Assessment/Plan - Problem List (1) Hyponatremia Assessment/Plan: Sodium has improved to 130-132 on daily morning labs. She is not on salt tablets. She is finishing IV fluids of saline today. In preparation for discharge today, her daily labs have been discontinued. Then the discharge was canceled. We will continue with daily BMP checks. (2) Hyperkalemia Impression: She needed D50 and insulin once and several oral dose of Kayexalate. Her Losartan was discontinued yesterday, because it can add to potassium retention. In preparation for discharge today, her daily labs have been discontinued. Then the discharge was canceled. We will continue with daily BMP checks. (3) Dementia Assessment/Plan: On 06/07/22, she underwent cognitive eval and scored 14/30, indicating moderate cognitive impairment. This is likely from her old stroke. This made her impulsive. She worked with OT to stay functional and is redirectable, communicates well, follows directions. She still wanted to live in a tent with her son, who is homeless; once she commented to OT that "she would be too cold in a tent". We are looking for placement for her. However, according to SW, the son did not give consent in the past. We thought we were going to be able to discharge her to her son's care in a safe living environment twice, but her son's plans fell through. Social work had found an Adult Family Home for her to go, but today's planned d ischarge was cancelled (due to [employer]CS/Medicaid not agreeing to pay, per SW) Other chronic and resolved Diagnoses: (4) History of CVA (cerebrovascular accident) (5) Homeless family (6) Hx of coronary artery disease (7) COPD without exacerbation (J44.9) (8) History of blood clots (9) HTN (10) Neuropathic pain (11) E. coli UTI, treated (12) Conjunctivitis, resolved (13) Facial cellulitis, resolved - Current Meds Current Meds: Current Medications Generic Name Dose Route Start Last Admin Trade Name Freq PRN Reason Stop Dose Admin Amlodipine Besylate 2.5 mg 06/30/22 09:00 06/30/22 08:38 Amlodipine 5 Mg Tablet PO 2.5 mg DAILY DENILSON Administration Apixaban 5 mg 06/03/22 21:00 06/30/22 08:38 Apixaban 5 Mg Tablet PO 5 mg BID DENILSON Administration Carboxymethylcellulose 1 drops 06/12/22 15:42 06/30/22 07:04 Carboxymethylcellulose Ophth Drops EACHEYE 1 drops PRN PRN Administration Dry Eye Docusate Sodium 250 - 500 mg 06/23/22 11:00 06/30/22 08:37 Docusate Sodium 250 Mg Capsule PO 250 mg DAILY DENILSON Administration Gabapentin 300 mg 06/15/22 10:00 06/30/22 06:57 Gabapentin 300 Mg Capsule PO 300 mg TID DENILSON Administration Ibuprofen 400 mg 06/19/22 12:11 06/30/22 11:16 Ibuprofen 400 Mg Tablet PO 400 mg Q6HR PRN Administration PAIN Lidocaine 1 patch 06/13/22 16:11 06/28/22 16:36 Lidocaine Patch 5% TOP 1 patch DAILY PRN Administration PAIN Metoprolol Tartrate 25 mg 06/14/22 21:00 06/30/22 08:37 Metoprolol Tartrate 25 Mg Tablet PO 25 mg BID DENILSON Administration Mirtazapine 15 mg 06/03/22 21:00 06/29/22 21:34 Mirtazapine 15 Mg Tablet PO 15 mg QPM DENILSON Administration Multivitamins/Minerals 1 tab 06/15/22 08:00 06/30/22 08:38 Multivitamin W/Minerals Tablet PO 1 tab DAILYWM DENILSON Administration Pantoprazole Sodium 40 mg 06/07/22 07:00 06/30/22 06:57 Pantoprazole 40 Mg Tablet PO 40 mg QDAC DENILSON Administration Phenazopyridine HCl 100 mg 06/28/22 02:00 06/30/22 06:57 Phenazopyridine 100 Mg Tablet PO 100 mg TID DENILSON Administration Sodium Chloride 10 ml 06/29/22 09:00 06/30/22 08:38 Sodium Chloride Flush 0.9% 10 Ml Syringe IVP 10 ml 0100,0900,1700 DENILSON Administration Sodium Polystyrene Sulfonate 15 gm 06/27/22 09:00 06/30/22 08:37 Sodium Polystyrene Sulfonate 15 Gm/60 Ml Bottle PO 15 g DAILY DENILSON Administration - Lab Result Fish Bone Diagrams: 06/22/22 05:18 06/30/22 04:45 - Additional Planning My Orders: My Active Orders 06/30/22 09:00 amLODIPine [Norvasc] 2.5 mg PO DAILY Subjective - Subjective Patient Reports: Resting Comfortably, No Complaints Nursing Reports: Other (Wants her home "packet" of lidocaine gel for her painful gums restarted.) Objective Vital Signs: Vital Signs - 24 hr 06/29/22 06/29/22 06/30/22 16:01 21:37 07:53 Temperature 36.5 C 36.9 C Heart Rate [ 61 64 Brachial] Respiratory 16 16 Rate Blood Pressure 132/49 H Blood Pressure 164/73 H 141/70 H [Right Brachial artery] O2 Saturation 96 94 06/30/22 08:37 Temperature Heart Rate [ Brachial] Respiratory Rate Blood Pressure 141/70 H Blood Pressure [Right Brachial artery] O2 Saturation Oxygen O2 Source Room air I&O (Last 24 Hrs): Intake and Output Totals x24h 06/28/22 06/29/22 06/30/22 23:59 23:59 23:59 Intake Total 1477 1530 600 Output Total 3175 2850 2050 Balance -1698 -1320 -1450 General: Alert, Oriented x3 HEENT: Mucous membr. moist/pink Neck: Supple, No JVD Neuro: Alert, Non Focal, Other (Poor memory) Cardiovascular: Regular rate Respiratory: No respiratory distress Abdomen: Soft Extremities: No edema, No tenderness/swelling - Results Results: Laboratory Results WBC 6.0 x10^3/uL (4.8-10.8) 06/22/22 05:18 RBC 2.97 10^6/uL (4.20-5.40) L 06/22/22 05:18 Hgb 9.2 g/dL (12.0-16.0) L 06/22/22 05:18 Hct 28.7 % (37.0-47.0) L 06/22/22 05:18 MCV 96.6 fL (81.0-99.0) 06/22/22 05:18 MCH 31.0 pg (27.0-31.0) 06/22/22 05:18 MCHC 32.1 g/dL (32.0-36.0) 06/22/22 05:18 RDW 15.3 % (12.0-15.0) H 06/22/22 05:18 Plt Count 234 10^3/uL (130-450) 06/22/22 05:18 MPV 9.4 fL (7.9-10.8) 06/22/22 05:18 Neut # (Auto) 3.5 10^3/uL (1.5-6.6) 06/22/22 05:18 Lymph # (Auto) 1.7 10^3/uL (1.5-3.5) 06/22/22 05:18 [place] # (Auto) 0.6 10^3/uL (0.0-1.0) 06/22/22 05:18 Eos # (Auto) 0.2 10^3/uL (0.0-0.7) 06/22/22 05:18 Baso # (Auto) 0.0 10^3/uL (0.0-0.1) 06/22/22 05:18 Absolute Nucleated RBC 0.00 x10^3/uL 06/22/22 05:18 Nucleated RBC % 0.0 /100WBC 06/22/22 05:18 Sodium 130 mmol/L (135-145) L 06/30/22 04:45 Potassium 4.7 mmol/L (3.5-5.0) 06/30/22 04:45 Chloride 95 mmol/L (101-111) L 06/30/22 04:45 Carbon Dioxide 30 mmol/L (21-32) 06/30/22 04:45 Anion Gap 5.0 (6-13) L 06/30/22 04:45 BUN 29 mg/dL (6-20) H 06/30/22 04:45 Creatinine 0.8 mg/dL (0.4-1.0) 06/30/22 04:45 Estimated GFR (MDRD) 68 (>89) L 06/30/22 04:45 Glucose 77 mg/dL (70-100) 06/30/22 04:45 Lactic Acid 1.7 mmol/L (0.5-2.2) 06/06/22 09:00 Calcium 8.5 mg/dL (8.5-10.3) 06/30/22 04:45 Magnesium 2.3 mg/dL (1.7-2.8) 06/18/22 07:20 Total Bilirubin 0.8 mg/dL (0.2-1.0) 06/04/22 14:40 AST 19 IU/L (10-42) 06/04/22 14:40 ALT 12 IU/L (10-60) 06/04/22 14:40 Alkaline Phosphatase 87 IU/L (42-121) 06/04/22 14:40 C-Reactive Protein 4.9 mg/dL (0-1.0) H 06/07/22 06:12 Total Protein 7.5 g/dL (6.7-8.2) 06/04/22 14:40 Albumin 3.8 g/dL (3.2-5.5) 06/04/22 14:40 Globulin 3.7 g/dL (2.1-4.2) 06/04/22 14:40 Albumin/Globulin Ratio 1.0 (1.0-2.2) 06/04/22 14:40 Lipase 28 U/L (22-51) 06/04/22 14:40 Urine Color YELLOW 06/27/22 21:00 Urine Clarity CLEAR (CLEAR) 06/27/22 21:00 Urine pH 6.0 PH (5.0-7.5) 06/27/22 21:00 Ur Specific [place] 1.015 (1.002-1.030) 06/27/22 21:00 Urine Protein NEGATIVE mg/dL (NEGATIVE) 06/27/22 21:00 Urine Glucose (UA) NEGATIVE mg/dL (NEGATIVE) 06/27/22 21:00 Urine Ketones NEGATIVE mg/dL (NEGATIVE) 06/27/22 21:00 Urine Occult Blood NEGATIVE (NEGATIVE) 06/27/22 21:00 Urine Nitrite NEGATIVE (NEGATIVE) 06/27/22 21:00 Urine Bilirubin NEGATIVE (NEGATIVE) 06/27/22 21:00 Urine Urobilinogen 0.2 (NORMAL) E.U./dL (NORMAL) 06/27/22 21:00 Ur Leukocyte Esterase TRACE (NEGATIVE) H 06/27/22 21:00 Urine RBC 0-5 /HPF (0-5) 06/27/22 21:00 Urine WBC 4-5 /HPF (0-5) 06/27/22 21:00 Urine WBC Clumps PRESENT 06/02/22 17:25 Ur Squamous Epith Cells FEW Squamous (<= Few) 06/27/22 21:00 Urine Bacteria Rare /HPF (None Seen) 06/27/22 21:00 Ur Microscopic Review INDICATED 06/27/22 21:00 Urine Culture Comments INDICATED 06/27/22 21:00 SARS-CoV-2 (PCR) NOT DETECTED 06/30/22 09:30 - Procedures Procedures: Procedures INSPECTION OF UPPER INTESTINAL TRACT, ENDO (05/16/18) LOCAL EXCIS BREAST LES (04/01/15)
[2022-06-30] MEDS: BENZOCAINE 20% PO PRN (18:50)
[2022-06-30] MEDS: [UNRECOGNIZED DRUG - OTHER] PO PRN (18:50)
[2022-06-30] MEDS: MIRTAZAPINE 15 MG TABLET PO SCH (21:33)
[2022-07-01] MEDS: GABAPENTIN 300 MG CAPSULE PO SCH ×2 (07:18→13:27)
[2022-07-01] MEDS: PHENAZOPYRIDINE 100 MG TABLET PO SCH ×2 (07:18→13:27)
[2022-07-01] MEDS: PANTOPRAZOLE 40 MG TABLET PO SCH (07:18)
[2022-07-01] MEDS: IBUPROFEN 400 MG TABLET PO PRN ×2 (07:20→13:33)
[2022-07-01] MEDS: SODIUM CHLORIDE FLUSH 0.9% 10 ML SYRINGE IVP SCH ×2 (07:39→09:12)
[2022-07-01] MEDS: SODIUM POLYSTYRENE SULFONATE 15 GM/60 ML BOTTLE PO SCH (09:09)
[2022-07-01] MEDS: APIXABAN 5 MG TABLET PO SCH (09:09)
[2022-07-01] MEDS: amLODIPine 5 MG TABLET PO SCH (09:09)
[2022-07-01] MEDS: METOPROLOL TARTRATE 25 MG TABLET PO SCH (09:09)
[2022-07-01] MEDS: DOCUSATE SODIUM 250 MG CAPSULE PO SCH ×2 (09:09→09:15)
[2022-07-01] MEDS: MULTIVITAMIN W/MINERALS TABLET PO SCH (09:12)
[2022-07-01] MEDS: LIDOCAINE PATCH 5% TOP PRN (09:44)
[2022-07-01] MEDS: BENZOCAINE 20% PO PRN ×2 (10:24→13:05)
[2022-07-01] MEDS: [UNRECOGNIZED DRUG - OTHER] PO PRN ×2 (10:24→13:05)
[2022-07-01 14:25] VITALS: BP 119/85
== END 2022-07-01 16:00 | DRG 690 ==
LOC: EDUNIT# → ED 16:18 → MS2 06-05 01:09 → UNDOADMIN 06-05 01:09 → MS2 06-05 17:41
PROVIDERS: ADMIT Internal Medicine; ATTEND Internal Medicine
DX: N39.0 Urinary tract infection, site not specified (principal); L03.211 Cellulitis of face; E87.1 Hypo-osmolality and hyponatremia; N30.00 Acute cystitis without hematuria; I10 Essential (primary) hypertension; J44.9 Chronic obstructive pulmonary disease, unspecified; I70.209 Unspecified atherosclerosis of native arteries of extremities, unspecified extremity; F03.90 Unspecified dementia, unspecified severity, without behavioral disturbance, psychotic disturbance, mood disturbance, and anxiety; M79.2 Neuralgia and neuritis, unspecified; E78.00 Pure hypercholesterolemia, unspecified; J45.909 Unspecified asthma, uncomplicated; K21.9 Gastro-esophageal reflux disease without esophagitis; M19.90 Unspecified osteoarthritis, unspecified site; M54.9 Dorsalgia, unspecified; G89.29 Other chronic pain; B96.20 Unspecified Escherichia coli [E. coli] as the cause of diseases classified elsewhere; H10.33 Unspecified acute conjunctivitis, bilateral; I25.10 Atherosclerotic heart disease of native coronary artery without angina pectoris; M54.2 Cervicalgia; R79.89 Other specified abnormal findings of blood chemistry; R40.0 Somnolence; E87.5 Hyperkalemia; E87.6 Hypokalemia; Z20.822 Contact with and (suspected) exposure to COVID-19; Z59.02 Unsheltered homelessness; Z79.01 Long term (current) use of anticoagulants; Z79.899 Other long term (current) drug therapy; Z86.718 Personal history of other venous thrombosis and embolism; Z86.73 Personal history of transient ischemic attack (TIA), and cerebral infarction without residual deficits; Z95.1 Presence of aortocoronary bypass graft
CPT/HCPCS: 36415; 71045; 80048; 80053; 81001; 83605; 83690; 83735; 85025; 86140; 87040; 87077; 87086; 87150; 87181; 87635; 96372; 97110; 97116; 97162; 97166; 97530; 97535; 99284; 99285; A9270; J1815; J3370; 81003

== ENCOUNTER 2022-08-10 23:55 | Outpatient (CLI) | payer MEDICARE, OTHER, MEDICAID | END 2022-08-10 23:59 | disposition critical access hospital (66) | LOC: EMS 23:55 | DX: K92.1 Melena (principal); R19.7 Diarrhea, unspecified; R42 Dizziness and giddiness | CPT/HCPCS: A0425; A0429 ==

== ENCOUNTER 2022-08-11 00:15 | Emergency (ER) | payer MEDICARE, OTHER, MEDICAID ==
[2022-08-11] MEDS ORDERED: SODIUM CHLORIDE 0.9% 1,000 ML IV STA (00:23)
[2022-08-11] MEDS ORDERED: ONDANSETRON 4 MG/2 ML VIAL IVP STA (00:24)
--- NOTE | 2022-08-11 00:28 | ED Physician Documentation ---
History of Present Illness - Stated complaint Stated Complaint: BLOODY DIAHREA - History obtained from History obtained from: Patient, EMS - Additonal information Additional information: The patient is brought to the emergency department by EMS for chief complaint of diarrhea and blood in stool that started today. The patient states that her diarrhea has not been watery necessarily, but has been sometimes thick, yet runny, and that she has had numerous episodes today. This morning, the patient states that her son commented that he noticed some dark red drops in the toilet after she had used it. Patient also uses a an adult diaper, but states she has not seen any blood in this, despite a number of episodes of diarrhea with incontinence. The patient states she is felt a little dizzy today. No syncope. No nausea or vomiting. No fevers or chills. No respiratory symptoms. She was feeling fine yesterday. Nobody else is sick that she knows of. The patient lives at home with her son, who is her caregiver. No other complaints at this time. The patient has a history of atrial fibrillation, and takes Eliquis. Review of Systems Ten Systems: 10 systems reviewed and negative Constitutional: reports: Reviewed and negative Eyes: reports: Reviewed and negative Ears: reports: Reviewed and negative Nose: reports: Reviewed and negative Throat: reports: Reviewed and negative Cardiac: reports: Reviewed and negative Respiratory: reports: Reviewed and negative GI: reports: Abdominal Pain (Cramping, low abdomen), Diarrhea, Bloody / black stool : reports: Reviewed and negative Skin: reports: Reviewed and negative Musculoskeletal: reports: Reviewed and negative Neurologic: reports: Reviewed and negative Psychiatric: reports: Reviewed and negative Endocrine: reports: Reviewed and negative Immunocompromised: reports: Reviewed and negative PD PAST MEDICAL HISTORY - Past Medical History Cardiovascular: Hypertension, High cholesterol, Coronary artery disease, [place] Respiratory: Asthma, Pneumonia, Other Neuro: None, Alzhiemer's, CVA, Peripheral neuropathy Endocrine/Autoimmune: None GI: GERD, Colon polyps, Chronic diarrhea, Other : Kidney stones, Other HEENT: Other Psych: Anxiety, Other Musculoskeletal: Osteoarthritis, Chronic back pain Derm: None - Past Surgical History Past Surgical History: Yes General: Cholecystectomy, Colonoscopy Ortho: Arthroscopic surgery /[employer]NER: 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, Other Cardiovascular: CABG, Coronary stent - Present Medications Home Medications: Ambulatory Orders Medication Instructions Recorded Confirmed Albuterol Sulfate [Proair Hfa 2 puffs INH Q6H PRN 03/31/15 06/03/22 Inhaler] Loratadine [Allergy Relief] 10 mg PO DAILY 03/31/15 06/03/22 [place]-3 Fatty Acids/Fish Oil 1 gm PO DAILY 03/31/15 06/03/22 [[place] 3 1,000 mg Softgel] polyethylene glycoL 3350 [Miralax] 17 gm PO DAILY PRN #1 bottle 10/10/21 06/03/22 Apixaban [Eliquis] 5 mg PO BID #30 tab 06/23/22 Atorvastatin Calcium 40 mg PO QPM #30 tab 06/23/22 Gabapentin [Neurontin] 300 mg PO TID #90 cap 06/23/22 Metoprolol Tartrate [Lopressor] 25 mg PO BID #60 tab 06/23/22 Mirtazapine [Remeron] 15 mg PO QPM #30 tab 06/23/22 Multivitamin W/Minerals [Theragran 1 tab PO DAILYWM tab 06/23/22 M] Nitroglycerin [Nitrostat] 0.4 mg SL Q5MIN PRN #30 tab 06/23/22 Pantoprazole Sodium [Protonix] 40 mg PO DAILY #30 tab 06/23/22 Benzocaine [Hurricaine] 1 applic ORAL QID PRN 06/30/22 06/30/22 Phenazopyridine [Pyridium] 100 mg PO TID #21 tab 06/30/22 Acetaminophen [Tylenol] 650 mg PO Q6H PRN #30 tablet 07/06/22 - Allergies Allergies/Adverse Reactions: Allergies Allergy/AdvReac Type Severity Reaction Status Date / Time furosemide Allergy Intermediate Rash Verified 08/11/22 00:21 Penicillins Allergy Rash Verified 08/11/22 00:21 lisinopril AdvReac Mild Cough Verified 08/11/22 00:21 - Social History Does the pt smoke?: No Smoking Status: Never smoker Does the pt drink ETOH?: No Does the pt have substance abuse?: No - Immunizations Immunizations are current?: Yes - POLST Patient has POLST: No POLST Status: Full Code PD ED PE NORMAL - Vitals Vital signs reviewed: Yes - General General: No acute distress, Well developed/nourished, Other (Alert, fairly well- appearing elderly female in no apparent distress, sitting up in bed.) - HEENT HEENT: Atraumatic, PERRL, EOMI, Moist mucous membranes - Neck Neck: Supple, no meningeal sign - Cardiac Cardiac: No murmur, Strong equal pulses, Other (Irregular rhythm, normal rate) - Respiratory Respiratory: No respiratory distress, Clear bilaterally - Abdomen Abdomen: Soft, Non tender, Non distended - Female Female : Night Clerk Auditor present (Nurse Saira Jimenez), Other (No gross blood, either in stool, around anus, or on adult diaper. Mild amount of claylike yellowish- brown, pasty stool noted perianally and on the diaper.) - Derm Derm: Normal color, Warm and dry, No rash - Extremities Extremities: No deformity, No edema - Neuro Neuro: Other (The patient is mildly repetitive in describing her diarrhea, but otherwise, answers questions appropriately and neuro exam is grossly intact) - Psych Psych: Normal mood, Normal affect Results - Vitals Vitals: Vital Signs - 24 hr 08/11/22 08/11/22 08/11/22 00:21 02:43 02:54 Temperature 36.5 C 36.5 C Heart Rate 88 75 72 Respiratory 18 14 15 Rate Blood Pressure 150/70 H 192/87 H 192/87 H O2 Saturation 95 96 96 Oxygen O2 Source Room air - Labs Labs: Laboratory Tests 08/11/22 08/11/22 01:07 01:07 WBC 6.8 RBC 3.85 L Hgb 11.6 L Hct 38.9 MCV 101.0 H MCH 30.1 MCHC 29.8 L RDW 13.3 Plt Count 172 MPV 9.8 Neut # (Auto) 4.9 Lymph # (Auto) 1.3 L [place] # (Auto) 0.5 Eos # (Auto) 0.1 Baso # (Auto) 0.0 Absolute Nucleated RBC 0.00 Nucleated RBC % 0.0 Sodium 138 Potassium 3.6 Chloride 104 Carbon Dioxide 22 Anion Gap 12.0 BUN 12 Creatinine 0.8 Estimated GFR (MDRD) 68 L Glucose 113 H Calcium 8.9 Total Bilirubin 0.9 AST 16 ALT 13 Alkaline Phosphatase 112 Total Protein 6.9 Albumin 3.5 Globulin 3.4 Albumin/Globulin Ratio 1.0 Lipase 27 PD MEDICAL DECISION MAKING - ED course Complexity details: reviewed results, re-evaluated patient, considered differential, d/w patient ED course: The patient was treated symptomatically with IV fluids and Zofran. She was worked up with laboratory studies, which were unremarkable, including normal H&H. The patient's IV infiltrated after only a couple 100 cc of IV fluid, but the patient was able to drink approximately 600 cc of water in the emergency department without difficulty. She did not have any stools other than the residue that we observed on rectal exam while in the ED. The patient did not have any evidence of gross GI bleeding and the H&H were normal and I did not feel that this patient had life-threatening bleeding at this point in time. She is hemodynamically stable and though she is in A. fib, her rate has been normal here. I felt she was stable for discharge home. The son stated he did not drive and could not come get her so we did give her an ambulance ride home. We have discussed symptomatic management at home and the usual indications for return.. Departure - Departure Disposition: 01 Home, Self Care Clinical Impression: Blood per rectum Diarrhea Qualifiers: Diarrhea type: unspecified type Qualified Code(s): R19.7 - Diarrhea, unspecified Condition: Stable Instructions: ED Diarrhea Viral, ED Diet Vomiting Diarrhea, ED Hematochezia Stable Comments: Your laboratory studies look great. You have been rehydrated in the emergency department, as well. On rectal examination, your stool is actually pasty and not watery, and there is no blood visualized in the stool or around your anal area, whatsoever. At this point in time, there is no evidence of significant blood loss. Additionally, you are well able to take fluids on your own, since you are not nauseated or vomiting. You have done this very well here in the emergency department tonight. Most likely, the diarrhea that you have experienced today is either due to something dietary that did not agree with you, or to one of the many common viruses that cause such symptoms. In general, these diarrheal illnesses are short-lived and resolve on their own in anywhere from 1 to 3 days. Please focus on drinking plenty of fluids at home. You may follow-up with your doctor as needed. Discharge Date/Time: 08/11/22 02:54
[2022-08-11 01:12] LABS: BASOPHILS % (AUTO) 0.3 %; EOSINOPHILS # (AUTO) 0.1 10^3/uL (0.0-0.7); HCT - HEMATOCRIT 38.9 % (37.0-47.0); HGB - HEMOGLOBIN 11.6 g/dL (12.0-16.0); LYMPHOCYTES # (AUTO) 1.3 10^3/uL (1.5-3.5); LYMPHOCYTES % (AUTO) 19.6 %; MEAN CORPUSCULAR HEMOGLOBIN 30.1 pg (27.0-31.0); MEAN CORPUSCULAR HGB CONC 29.8 g/dL (32.0-36.0); MEAN PLATELET VOLUME 9.8 fL (7.9-10.8); MONOCYTES # (AUTO) 0.5 10^3/uL (0.0-1.0); MONOCYTES % (AUTO) 7.2 %; NEUTROPHILS # (AUTO) 4.9 10^3/uL (1.5-6.6); NEUTROPHILS % (AUTO) 71.5 %; PLT - PLATELET COUNT 172 10^3/uL (130-450); RED BLOOD COUNT 3.85 10^6/uL (4.20-5.40); RED CELL DISTRIBUTION WIDTH 13.3 % (12.0-15.0); WHITE BLOOD COUNT 6.8 x10^3/uL (4.8-10.8)
[2022-08-11 01:23] LABS: ALBUMIN 3.5 g/dL (3.2-5.5); BILIRUBIN,TOTAL 0.9 mg/dL (0.2-1.0); CALCIUM 8.9 mg/dL (8.5-10.3); CREATININE 0.8 mg/dL (0.4-1.0); POTASSIUM 3.6 mmol/L (3.5-5.0); TOTAL PROTEIN 6.9 g/dL (6.7-8.2)
[2022-08-11 02:44] VITALS: BP 192/87
== END 2022-08-11 02:54 | disposition home or self-care (01) ==
LOC: EDUNIT# → ED 00:15
DX: K62.5 Hemorrhage of anus and rectum (principal); R19.7 Diarrhea, unspecified
CPT/HCPCS: 36415; 80053; 83690; 85025; 86850; 86900; 86901; 96361; 96374; 99284

== ENCOUNTER 2022-08-11 02:52 | Outpatient (CLI) | payer MEDICARE, OTHER, MEDICAID | END 2022-08-11 02:53 | disposition home or self-care (01) | LOC: EMS 02:52 | PROVIDERS: ATTEND Emergency Medicine | DX: R41.0 Disorientation, unspecified (principal) | CPT/HCPCS: A0425; A0428 ==

== ENCOUNTER 2022-08-11 15:21 | Outpatient (CLI) | payer MEDICARE, OTHER, MEDICAID | END 2022-08-11 15:22 | disposition critical access hospital (66) | LOC: EMS 15:21 | DX: Z04.89 Encounter for examination and observation for other specified reasons (principal); Z74.8 Other problems related to care provider dependency; Z59.01 Sheltered homelessness; Z99.3 Dependence on wheelchair | CPT/HCPCS: A0425; A0429 ==

== ENCOUNTER 2022-08-11 16:08 | Emergency (ER) | payer MEDICARE, OTHER, MEDICAID ==
--- NOTE | 2022-08-11 16:48 | ED Physician Documentation ---
History of Present Illness - Stated complaint Stated Complaint: CANDI/APS - Chief complaint Chief Complaint: Abd Pain - Additonal information Additional information: Very pleasant 86-year-old female was brought in by ambulance under an CANDI from [place] and in [place]. She was seen last night in this emergency department with bloody diarrhea. Patient has been reporting painful urination. Today APS was serving papers on her son to prevent him from having contact with her. APS called 911 on behalf of the patient for reports of continued diarrhea, abdominal pain and dysuria. Patient states she has had a number of days of bloody diarrhea. She was seen in this emergency department yesterday evening and the provider examining did not find bloody stool and no worrisome lab abnormalities therefore she was discharged home. Historically the patient has been homeless and living with her son in a tent and as well as a motel. She did have long-term placement at an adult family home [facility] when she was discharged from this hospital after a stay for urinary tract infection . She was also scheduled to see primary care provider on July 13. The patient does come under an CANDI from [facility]. 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 Review of Systems Unable to obtain: Dementia Constitutional: denies: Fever GI: reports: Abdominal Pain, Diarrhea : reports: Dysuria Skin: denies: Rash, Lesions Musculoskeletal: reports: Reviewed and negative Neurologic: reports: Generalized weakness Psychiatric: reports: Reviewed and negative Endocrine: reports: Reviewed and negative PD PAST MEDICAL HISTORY - Past Medical History Cardiovascular: Hypertension, High cholesterol, Coronary artery disease, [place] Respiratory: Asthma, Pneumonia, Other Neuro: None, Alzhiemer's, CVA, Peripheral neuropathy Endocrine/Autoimmune: None GI: GERD, Colon polyps, Chronic diarrhea, Other : Kidney stones, Other HEENT: Other Psych: Anxiety, Other Musculoskeletal: Osteoarthritis, Chronic back pain Derm: None - Past Surgical History Past Surgical History: Yes General: Cholecystectomy, Colonoscopy Ortho: Arthroscopic surgery /SHIRT CREASER: 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, Other Cardiovascular: CABG, Coronary stent - Present Medications Home Medications: Ambulatory Orders Medication Instructions Recorded Confirmed Albuterol Sulfate [Proair Hfa 2 puffs INH Q6H PRN 03/31/15 06/03/22 Inhaler] Loratadine [Allergy Relief] 10 mg PO DAILY 03/31/15 06/03/22 Emery-3 Fatty Acids/Fish Oil 1 gm PO DAILY 03/31/15 06/03/22 [Emery 3 1,000 mg Softgel] polyethylene glycoL 3350 [Miralax] 17 gm PO DAILY PRN #1 bottle 10/10/21 06/03/22 Apixaban [Eliquis] 5 mg PO BID #30 tab 06/23/22 Atorvastatin Calcium 40 mg PO QPM #30 tab 06/23/22 Gabapentin [Neurontin] 300 mg PO TID #90 cap 06/23/22 Metoprolol Tartrate [Lopressor] 25 mg PO BID #60 tab 06/23/22 Mirtazapine [Remeron] 15 mg PO QPM #30 tab 06/23/22 Multivitamin W/Minerals [Theragran 1 tab PO DAILYWM tab 06/23/22 M] Nitroglycerin [Nitrostat] 0.4 mg SL Q5MIN PRN #30 tab 06/23/22 Pantoprazole Sodium [Protonix] 40 mg PO DAILY #30 tab 06/23/22 Benzocaine [Hurricaine] 1 applic ORAL QID PRN 06/30/22 06/30/22 Phenazopyridine [Pyridium] 100 mg PO TID #21 tab 06/30/22 Acetaminophen [Tylenol] 650 mg PO Q6H PRN #30 tablet 07/06/22 - Allergies Allergies/Adverse Reactions: Allergies Allergy/AdvReac Type Severity Reaction Status Date / Time furosemide Allergy Intermediate Rash Verified 08/11/22 16:30 Penicillins Allergy Rash Verified 08/11/22 16:30 lisinopril AdvReac Mild Cough Verified 08/11/22 16:30 - Social History Does the pt smoke?: No Smoking Status: Never smoker Does the pt drink ETOH?: No Does the pt have substance abuse?: No - Immunizations Immunizations are current?: Yes - POLST Patient has POLST: No POLST Status: Full Code PD ED PE NORMAL - General General: Alert and oriented X 3, No acute distress, Well developed/nourished (Elderly frail-appearing female) - HEENT HEENT: Atraumatic - Neck Neck: Supple, no meningeal sign - Cardiac Cardiac: Strong equal pulses (2+ radial pulses). No: RRR (Bradycardic) - Respiratory Respiratory: No respiratory distress. No: Clear bilaterally - Abdomen Abdomen: Normal bowel sounds, Soft. No: Non tender (Generally tender abdomen without distention or tympany. Nonperitoneal.) - Back Back: No CVA TTP, No spinal TTP - Derm Derm: Normal color, Warm and dry - Extremities Extremities: No deformity, No tenderness to palpate, Normal ROM s pain - Neuro Neuro: technical services assistant 2-12 intact, No motor deficit. No: Alert and oriented X 3 (Pleasantly confused to time oriented to person and place) Eye Opening: Spontaneous Motor: Obeys Commands Verbal: Confused GCS Score: 14 Results - Vitals Vitals: Vital Signs - 24 hr 08/11/22 08/11/22 08/11/22 16:23 16:46 18:30 Temperature 37.1 C Heart Rate 74 80 55 L Respiratory 20 16 14 Rate Blood Pressure 158/146 H 142/82 H 162/88 H O2 Saturation 92 96 96 08/11/22 20:41 Temperature Heart Rate 99 Respiratory 12 Rate Blood Pressure 153/78 H O2 Saturation 92 Oxygen O2 Source Room air - Labs Labs: Laboratory Tests 08/11/22 08/11/22 08/11/22 16:44 16:44 16:45 WBC 8.9 RBC 4.18 L Hgb 12.6 Hct 40.8 MCV 97.6 MCH 30.1 MCHC 30.9 L RDW 13.2 Plt Count 198 MPV 9.3 Neut # (Auto) 6.9 H Lymph # (Auto) 1.3 L [place] # (Auto) 0.6 Eos # (Auto) 0.1 Baso # (Auto) 0.0 Absolute Nucleated RBC 0.00 Nucleated RBC % 0.0 Sodium 139 Potassium 3.9 Chloride 101 Carbon Dioxide 28 Anion Gap 10.0 BUN 11 Creatinine 0.8 Estimated GFR (MDRD) 68 L Glucose 117 H Calcium 9.3 Total Bilirubin 0.9 AST 19 ALT 14 Alkaline Phosphatase 126 H Total Protein 7.9 Albumin 3.8 Globulin 4.1 Albumin/Globulin Ratio 0.9 L Lipase 24 Urine Color YELLOW Urine Clarity CLEAR Urine pH 6.0 Ur Specific Forgan <=1.005 Urine Protein NEGATIVE Urine Glucose (UA) NEGATIVE Urine Ketones TRACE Urine Occult Blood NEGATIVE Urine Nitrite NEGATIVE Urine Bilirubin NEGATIVE Urine Urobilinogen 0.2 (NORMAL) Ur Leukocyte Esterase NEGATIVE Ur Microscopic Review NOT INDICATED Urine Culture Comments NOT INDICATED Stl C. diff Tox B Gene 08/11/22 17:24 WBC RBC Hgb Hct MCV MCH MCHC RDW Plt Count MPV Neut # (Auto) Lymph # (Auto) [place] # (Auto) Eos # (Auto) Baso # (Auto) Absolute Nucleated RBC Nucleated RBC % Sodium Potassium Chloride Carbon Dioxide Anion Gap BUN Creatinine Estimated GFR (MDRD) Glucose Calcium Total Bilirubin AST ALT Alkaline Phosphatase Total Protein Albumin Globulin Albumin/Globulin Ratio Lipase Urine Color Urine Clarity Urine pH Ur Specific Forgan Urine Protein Urine Glucose (UA) Urine Ketones Urine Occult Blood Urine Nitrite Urine Bilirubin Urine Urobilinogen Ur Leukocyte Esterase Ur Microscopic Review Urine Culture Comments Stl C. diff Tox B Gene NEGATIVE - Rads (name of study) CT abd Radiology: Final report received (Large amount of fecal material distending the rectum and distal sigmoid colon with circumferential wall thickening of the distal and mid sigmoid colon with associated mild stranding may represent fecal impaction with sterile colocolitis. Marked distention of the urinary bladder. ) PD MEDICAL DECISION MAKING - ED course Complexity details: reviewed results, re-evaluated patient, considered differential ED course: 86-year-old female was brought to the emergency department for further evaluation of abdominal pain and reported dysuria. History is limited due to the patient's dementia. History is also complicated because the patient was brought into the ER under an CANDI by APS. The patient had been taken from an adult family home in [place] where she had recently been transferred after lengthy hospitalization. APS has removed the patient from the care of her son and he is not allowed to visit. Patient has reported some diarrhea for the better part of 3 days. C. difficile was negative. On exam she has a generally tender but nonperitoneal belly. I did obtain a CBC and electrolytes today in the emergency department that were unremarkable. Urine catheterization shows no findings to suggest acute cystitis. CT of the abdomen shows markedly distended colon with some fecal impaction however the patient does continue to have a large amount of stool output, that is non bloody. I have requested nursing staff to apply barrier cream/Cavilon with each dressing change. Patient will board in the emergency department overnight to be seen by social work in the morning. With a history of dementia and previous homelessness there is no safe disposition at this time. Reportedly the previous adult family home she was placed to is interested in having her return there. Departure - Departure Clinical Impression: History of dementia Diarrhea Qualifiers: Diarrhea type: unspecified type Qualified Code(s): R19.7 - Diarrhea, unspecified Constipation Qualifiers: Constipation type: unspecified constipation type Qualified Code(s): K59.00 - Constipation, unspecified
[2022-08-11 16:50] LABS: BASOPHILS % (AUTO) 0.3 %; EOSINOPHILS # (AUTO) 0.1 10^3/uL (0.0-0.7); HCT - HEMATOCRIT 40.8 % (37.0-47.0); HGB - HEMOGLOBIN 12.6 g/dL (12.0-16.0); LYMPHOCYTES # (AUTO) 1.3 10^3/uL (1.5-3.5); LYMPHOCYTES % (AUTO) 14.3 %; MEAN CORPUSCULAR HEMOGLOBIN 30.1 pg (27.0-31.0); MEAN CORPUSCULAR HGB CONC 30.9 g/dL (32.0-36.0); MEAN CORPUSCULAR VOLUME 97.6 fL (81.0-99.0); MEAN PLATELET VOLUME 9.3 fL (7.9-10.8); MONOCYTES # (AUTO) 0.6 10^3/uL (0.0-1.0); MONOCYTES % (AUTO) 6.4 %; NEUTROPHILS # (AUTO) 6.9 10^3/uL (1.5-6.6); NEUTROPHILS % (AUTO) 77.5 %; PLT - PLATELET COUNT 198 10^3/uL (130-450); RED BLOOD COUNT 4.18 10^6/uL (4.20-5.40); RED CELL DISTRIBUTION WIDTH 13.2 % (12.0-15.0); WHITE BLOOD COUNT 8.9 x10^3/uL (4.8-10.8)
[2022-08-11] MEDS ORDERED: SODIUM CHLORIDE 0.9% 1,000 ML IV STA (16:53)
[2022-08-11 16:58] LABS: BILIRUBIN,URINE NEGATIVE (NEGATIVE); GLUCOSE, URINE (UA) NEGATIVE (NEGATIVE); KETONES,URINE (UA) TRACE mg/dL (NEGATIVE); LEUKOCYTE ESTERASE, URINE NEGATIVE (NEGATIVE); NITRITE,URINE NEGATIVE (NEGATIVE); OCCULT BLOOD,URINE NEGATIVE (NEGATIVE); PROTEIN,URINE NEGATIVE (NEGATIVE); UROBILINOGEN,URINE 0.2 (NORMAL) E.U./dL (NORMAL)
[2022-08-11 17:00] LABS: CLARITY,URINE CLEAR (CLEAR)
[2022-08-11] MEDS ORDERED: iohexoL-300 100 ML VIAL ONE (17:01)
[2022-08-11 17:02] LABS: ALBUMIN 3.8 g/dL (3.2-5.5); ALBUMIN/GLOBULIN RATIO 0.9 (1.0-2.2); BILIRUBIN,TOTAL 0.9 mg/dL (0.2-1.0); CALCIUM 9.3 mg/dL (8.5-10.3); CREATININE 0.8 mg/dL (0.4-1.0); POTASSIUM 3.9 mmol/L (3.5-5.0); TOTAL PROTEIN 7.9 g/dL (6.7-8.2)
--- NOTE | 2022-08-11 19:01 | CT Report ---
PROCEDURE: ABDOMEN/PELVIS W INDICATIONS: Bloody diarrhea CONTRAST: 100ml Omnipaque 300 TECHNIQUE: After the administration of weight appropriate dose of intravenous contrast, 5 mm thick sections acqu ired from the diaphragms to the symphysis. 5 mm thick coronal and sagittal reformats were acquired. For radiation dose reduction, the following was used: automated exposure control, adjustment of mA and/or kV according to patient size. COMPARISON: 05/14/2018. FINDINGS: Image quality: Diagnostic. ABDOMEN: Lung bases: Bibasilar atelectasis. Small left pleural effusion. Heart size is mildly enlarged. Solid organs: Liver and spleen are normal in size and enhancement. Gallbladder is surgically absent . Biliary system is non dilated. Pancreas enhances normally. No adrenal nodules. Kidneys demonstr ate normal size and enhancement, without hydronephrosis. Redemonstration of bilateral renal hypodens ities. Peritoneum and bowel: Stomach and small bowel loops demonstrate normal wall thickness and caliber. Th ere is a large amount of fecal material distending the distal sigmoid and rectum with associated circ umferential wall thickening of the mid and distal sigmoid colon. Mild surrounding inflammatory strand ing. There is also minimal circumferential wall thickening of the distal descending colon. No evidenc e for free air or organized fluid collection. Nodes and vessels: No retroperitoneal or mesenteric adenopathy by size criteria. Aorta and inferior vena cava are normal in size. Moderate atherosclerotic calcifications noted in the abdominal aorta a nd iliac vessels. Miscellaneous: No ventral hernias. PELVIS: Genitourinary: Urinary bladder is markedly distended.. Miscellaneous: No inguinal hernias or adenopathy. Bones: No suspicious bony lesions. No acute vertebral body compression fractures. Moderate multilev el spondylosis. IMPRESSION: 1. Large amount of fecal material distending the rectum and distal sigmoid colon with circumferential wall thickening of the distal and mid sigmoid colon with associated mild stranding. Findings may rep resent fecal impaction with early stercoral colitis. 2. Markedly distended urinary bladder. No evidence for obstructive uropathy. 3. Moderate atherosclerosis. 4. Small left pleural effusion with compressive atelectasis. 5. Status post cholecystectomy and hysterectomy. 6. Moderate multilevel spondylosis. Reviewed by: Devang Espinoza MD on 08/11/2022 7:00 PM PST Approved by: Devang Espinoza MD on 08/11/2022 7:00 PM PST Station ID: [id number]
[2022-08-11] MEDS ORDERED: fentaNYL 100 MCG/2 ML VIAL IVP STA (21:34)
[2022-08-11] MEDS ORDERED: MIN OIL/DIMETHICON/COCONUT OIL 92 GM TUBE TOP STA (21:46)
[2022-08-11] MEDS ORDERED: PANTOPRAZOLE 40 MG TABLET PO STA (21:51)
[2022-08-11] MEDS: METOPROLOL TARTRATE 50 MG TABLET PO SCH (22:43)
[2022-08-11] MEDS: GABAPENTIN 100 MG CAPSULE PO SCH (22:43)
[2022-08-12] MEDS ORDERED: iohexoL-300 100 ML VIAL IVP ONE (02:46)
[2022-08-12] MEDS: GABAPENTIN 100 MG CAPSULE PO SCH ×3 (06:16→21:49)
[2022-08-12] MEDS ORDERED: LOPERAMIDE 2 MG CAPSULE PO STA (09:13)
[2022-08-12] MEDS ORDERED: SOAP SUDS ENEMA 1 EACH RC ONE (13:12)
[2022-08-12] MEDS: MULTIVITAMIN TABLET PO SCH (13:27)
[2022-08-12] MEDS: APIXABAN 5 MG TABLET PO SCH ×2 (13:27→21:49)
[2022-08-12] MEDS: METOPROLOL TARTRATE 50 MG TABLET PO SCH ×2 (13:27→21:49)
[2022-08-12] MEDS: ATORVASTATIN 40 MG TABLET PO SCH (13:27)
--- NOTE | 2022-08-12 13:27 | ED Physician Documentation ---
ED Addendum - Addendum Addendum: Subjective:Patient was seen yesterday in the emergency department after APS Removed her from her guardian. She was continuing to have loose stools. She had been evaluated in the ER the night before also for diarrhea. Her C. difficile is negative. Her CT scan shows fecal impaction. She is boarding overnight in the emergency department awaiting social work evaluation it is unclear who her guardian is aware she is to be dispositioned to as Her son is not allowed contact with her. Objective:Has had 2 small loose stools this morning.Seems that she is just having stool run around her fecal impaction. No abdominal tenderness on my exam. Is eating breakfast. Assessment: Dementia; Constipation Plan: Boarding in ED for SW and placement. Will try enema today.
[2022-08-12] MEDS: PANTOPRAZOLE 40 MG TABLET PO SCH (13:28)
[2022-08-13] MEDS: GABAPENTIN 100 MG CAPSULE PO SCH ×3 (05:55→22:25)
[2022-08-13] MEDS: METOPROLOL TARTRATE 50 MG TABLET PO SCH ×2 (09:48→21:06)
[2022-08-13] MEDS: ATORVASTATIN 40 MG TABLET PO SCH (09:48)
[2022-08-13] MEDS: APIXABAN 5 MG TABLET PO SCH ×2 (09:48→21:00)
[2022-08-13] MEDS: PANTOPRAZOLE 40 MG TABLET PO SCH (09:49)
[2022-08-13] MEDS: MULTIVITAMIN TABLET PO SCH (09:49)
[2022-08-13] MEDS ORDERED: BISACODYL 10 MG SUPP PR STA (13:23)
[2022-08-13] MEDS ORDERED: DOCUSATE SODIUM 100 MG CAPSULE PO STA (13:23)
[2022-08-13] MEDS ORDERED: ACETAMINOPHEN 325 MG TABLET PO STA (13:29)
--- NOTE | 2022-08-13 16:35 | ED Physician Documentation ---
ED Addendum - Addendum Addendum: 08/13/22 16:33 I talked with the patient. She was comfortable and relaxed. She denied any need for added medication at this time. She was wondering where her son was and states that he had been taking care of her at a hotel. She does not remember the details very well. This seems consistent with her dementia. She had eaten breakfast okay without any problems. Awake and alert and conversant. Respirations unlabored. She did complain of not having a bowel movement but not having any abdominal pain. Still waiting to hear from social work and Adult Protective Services today. No notes are on the chart as yet from them. Continue current plan and medication and diet. Add a stool softener and suppository.
[2022-08-13] MEDS: ACETAMINOPHEN 325 MG TABLET PO PRN (19:30)
[2022-08-13] MEDS ORDERED: ACETAMINOPHEN 325 MG TABLET PO ONE (19:32)
[2022-08-14] MEDS: ACETAMINOPHEN 325 MG TABLET PO PRN (02:41)
[2022-08-14] MEDS: GABAPENTIN 100 MG CAPSULE PO SCH ×3 (06:17→21:30)
[2022-08-14] MEDS: APIXABAN 5 MG TABLET PO SCH ×2 (11:15→21:24)
[2022-08-14] MEDS: ATORVASTATIN 40 MG TABLET PO SCH (11:15)
[2022-08-14] MEDS: METOPROLOL TARTRATE 50 MG TABLET PO SCH ×2 (11:15→21:29)
[2022-08-14] MEDS: PANTOPRAZOLE 40 MG TABLET PO SCH (11:15)
[2022-08-14] MEDS: MULTIVITAMIN TABLET PO SCH (11:27)
[2022-08-15] MEDS: GABAPENTIN 100 MG CAPSULE PO SCH ×3 (05:52→21:33)
[2022-08-15] MEDS: METOPROLOL TARTRATE 50 MG TABLET PO SCH ×2 (08:46→21:07)
[2022-08-15] MEDS: ACETAMINOPHEN 325 MG TABLET PO PRN (08:46)
[2022-08-15] MEDS: ATORVASTATIN 40 MG TABLET PO SCH (08:46)
[2022-08-15] MEDS: APIXABAN 5 MG TABLET PO SCH ×2 (08:46→21:07)
[2022-08-15] MEDS: MULTIVITAMIN TABLET PO SCH (08:46)
[2022-08-15] MEDS: PANTOPRAZOLE 40 MG TABLET PO SCH (08:46)
[2022-08-16] MEDS: GABAPENTIN 100 MG CAPSULE PO SCH ×3 (05:40→21:29)
[2022-08-16] MEDS: MULTIVITAMIN TABLET PO SCH (10:07)
[2022-08-16] MEDS: METOPROLOL TARTRATE 50 MG TABLET PO SCH ×2 (10:07→21:29)
[2022-08-16] MEDS: PANTOPRAZOLE 40 MG TABLET PO SCH (10:07)
[2022-08-16] MEDS: APIXABAN 5 MG TABLET PO SCH ×2 (10:07→21:29)
[2022-08-16] MEDS: ATORVASTATIN 40 MG TABLET PO SCH (10:07)
[2022-08-16] MEDS: ACETAMINOPHEN 325 MG TABLET PO PRN (18:09)
--- NOTE | 2022-08-16 18:15 | ED Physician Documentation ---
ED Addendum - Addendum Addendum: 08/16/22 18:14 Assumed care of this patient at change of shift this morning. Patient has had no issues throughout the day and continues to remain stable in the emergency department. She continues to be evaluated by social work for long-term placement.
[2022-08-17] MEDS: METOPROLOL TARTRATE 50 MG TABLET PO SCH ×2 (08:54→21:34)
[2022-08-17] MEDS: GABAPENTIN 100 MG CAPSULE PO SCH ×3 (08:55→21:34)
[2022-08-17] MEDS: MULTIVITAMIN TABLET PO SCH (08:55)
[2022-08-17] MEDS: APIXABAN 5 MG TABLET PO SCH ×2 (08:55→21:34)
[2022-08-17] MEDS: PANTOPRAZOLE 40 MG TABLET PO SCH (08:55)
[2022-08-17] MEDS: ATORVASTATIN 40 MG TABLET PO SCH (08:55)
--- NOTE | 2022-08-17 13:51 | ED Physician Documentation ---
ED Addendum - Addendum Addendum: 08/17/22 13:49 The patient was sleeping at the time of my evaluation. I did arouse her little bit to interact and she seemed to be having no apparent discomfort. She was pleasant. She does not really recall much events of recent. She was asking for her son. Review of basic vital signs are good. Reportedly has had normal diet. Plan at this time is to maintain current diet activity and medications. I will look for social work notes regarding any updates on placement.
[2022-08-17] MEDS: ACETAMINOPHEN 325 MG TABLET PO PRN (16:04)
[2022-08-18] MEDS: GABAPENTIN 100 MG CAPSULE PO SCH ×3 (05:23→21:40)
[2022-08-18] MEDS: APIXABAN 5 MG TABLET PO SCH ×2 (09:16→21:15)
[2022-08-18] MEDS: PANTOPRAZOLE 40 MG TABLET PO SCH (09:16)
[2022-08-18] MEDS: ATORVASTATIN 40 MG TABLET PO SCH (09:16)
[2022-08-18] MEDS: METOPROLOL TARTRATE 50 MG TABLET PO SCH ×2 (09:17→21:15)
[2022-08-18] MEDS: MULTIVITAMIN TABLET PO SCH (09:22)
--- NOTE | 2022-08-18 17:54 | ED Physician Documentation ---
ED Addendum - Addendum Addendum: 08/18/22 17:53 The patient was signed out to me at change of shift, continuing to board in the emergency department, pending acceptance at a assisted living facility. The patient had no complaints throughout the day and no acute medical issues arose. She is continue to get her medications as ordered. We will continue to work with social work on and ultimate disposition for her.
[2022-08-18] MEDS: ACETAMINOPHEN 325 MG TABLET PO PRN (18:43)
[2022-08-19] MEDS: GABAPENTIN 100 MG CAPSULE PO SCH ×3 (05:29→20:50)
[2022-08-19] MEDS: ATORVASTATIN 40 MG TABLET PO SCH (09:05)
[2022-08-19] MEDS: APIXABAN 5 MG TABLET PO SCH ×2 (09:05→20:50)
[2022-08-19] MEDS: METOPROLOL TARTRATE 50 MG TABLET PO SCH ×2 (09:06→20:50)
[2022-08-19] MEDS: PANTOPRAZOLE 40 MG TABLET PO SCH (09:06)
[2022-08-19] MEDS: MULTIVITAMIN TABLET PO SCH (09:06)
[2022-08-19] MEDS: ACETAMINOPHEN 325 MG TABLET PO PRN (14:07)
[2022-08-19] MEDS ORDERED: LIDOCAINE VISCOUS 2% 15 ML UDC MM STA (19:20)
[2022-08-20] MEDS: GABAPENTIN 100 MG CAPSULE PO SCH ×3 (05:34→22:16)
[2022-08-20] MEDS: MULTIVITAMIN TABLET PO SCH (09:26)
[2022-08-20] MEDS: ATORVASTATIN 40 MG TABLET PO SCH (09:26)
[2022-08-20] MEDS: METOPROLOL TARTRATE 50 MG TABLET PO SCH ×2 (09:26→22:15)
[2022-08-20] MEDS: APIXABAN 5 MG TABLET PO SCH ×2 (09:26→22:15)
[2022-08-20] MEDS: PANTOPRAZOLE 40 MG TABLET PO SCH (09:26)
[2022-08-20] MEDS: ACETAMINOPHEN 325 MG TABLET PO PRN (14:30)
[2022-08-21] MEDS: GABAPENTIN 100 MG CAPSULE PO SCH ×3 (05:49→21:40)
[2022-08-21] MEDS: ACETAMINOPHEN 325 MG TABLET PO PRN (10:16)
[2022-08-21] MEDS: ATORVASTATIN 40 MG TABLET PO SCH (10:17)
[2022-08-21] MEDS: METOPROLOL TARTRATE 50 MG TABLET PO SCH ×2 (10:17→20:52)
[2022-08-21] MEDS: MULTIVITAMIN TABLET PO SCH (10:17)
[2022-08-21] MEDS: PANTOPRAZOLE 40 MG TABLET PO SCH (10:17)
[2022-08-21] MEDS: APIXABAN 5 MG TABLET PO SCH ×2 (10:18→20:52)
--- NOTE | 2022-08-21 18:20 | ED Physician Documentation ---
ED Addendum - Addendum Addendum: 08/21/22 18:19 The patient was resting at the time I went in to talk with her. Subsequently later she was up to a commode with assistance by the textile science technician. Otherwise no particular interventions needed. Reportedly ate. Still working on custody and placement guardianship issues. Plan: No particular change in medications or treatments or diet. Social work still working with APS regarding guardianship.
[2022-08-22] MEDS: GABAPENTIN 100 MG CAPSULE PO SCH ×3 (05:45→21:49)
[2022-08-22] MEDS: PANTOPRAZOLE 40 MG TABLET PO SCH (08:19)
[2022-08-22] MEDS: MULTIVITAMIN TABLET PO SCH (08:19)
[2022-08-22] MEDS: METOPROLOL TARTRATE 50 MG TABLET PO SCH ×2 (08:19→21:27)
[2022-08-22] MEDS: ATORVASTATIN 40 MG TABLET PO SCH (08:19)
[2022-08-22] MEDS: APIXABAN 5 MG TABLET PO SCH ×2 (08:19→21:27)
[2022-08-22] MEDS: ACETAMINOPHEN 325 MG TABLET PO PRN (08:20)
[2022-08-23] MEDS: GABAPENTIN 100 MG CAPSULE PO SCH ×3 (06:09→21:42)
[2022-08-23] MEDS: APIXABAN 5 MG TABLET PO SCH ×2 (08:56→20:35)
[2022-08-23] MEDS: MULTIVITAMIN TABLET PO SCH (08:56)
[2022-08-23] MEDS: METOPROLOL TARTRATE 50 MG TABLET PO SCH ×2 (08:56→20:35)
[2022-08-23] MEDS: ATORVASTATIN 40 MG TABLET PO SCH (08:56)
[2022-08-23] MEDS: PANTOPRAZOLE 40 MG TABLET PO SCH (08:56)
[2022-08-23] MEDS: ACETAMINOPHEN 325 MG TABLET PO PRN ×2 (08:57→19:20)
[2022-08-24] MEDS: GABAPENTIN 100 MG CAPSULE PO SCH ×2 (06:05→14:56)
[2022-08-24] MEDS: ATORVASTATIN 40 MG TABLET PO SCH (09:42)
[2022-08-24] MEDS: APIXABAN 5 MG TABLET PO SCH ×2 (09:42→20:33)
[2022-08-24] MEDS: MULTIVITAMIN TABLET PO SCH (09:43)
[2022-08-24] MEDS: PANTOPRAZOLE 40 MG TABLET PO SCH (09:43)
[2022-08-24] MEDS: METOPROLOL TARTRATE 50 MG TABLET PO SCH ×2 (09:43→20:33)
[2022-08-24] MEDS: GABAPENTIN 300 MG CAPSULE PO SCH ×2 (14:56→21:14)
[2022-08-25] MEDS: GABAPENTIN 300 MG CAPSULE PO SCH ×3 (05:42→21:14)
[2022-08-25] MEDS: METOPROLOL TARTRATE 50 MG TABLET PO SCH ×2 (11:10→20:53)
[2022-08-25] MEDS: APIXABAN 5 MG TABLET PO SCH ×2 (11:10→20:53)
[2022-08-25] MEDS: ATORVASTATIN 40 MG TABLET PO SCH (11:10)
[2022-08-25] MEDS: PANTOPRAZOLE 40 MG TABLET PO SCH (11:11)
[2022-08-25] MEDS: MULTIVITAMIN TABLET PO SCH (11:11)
--- NOTE | 2022-08-25 13:36 | ED Physician Documentation ---
ED Addendum - Addendum Addendum: Patient has been boarding in the emergency department pending guardianship and placement. I saw the patient she was resting comfortably in her hospital bed without any complaints. She had eaten some breakfast and has been up to the bedside commode. Per her RN Radha, she did have a video meeting with the courts regarding guardianship. She did become tearful during that conversation. Unclear as to the results of that meeting. Patient to remain in the emergency department pending guardianship and placement.
[2022-08-25] MEDS: ACETAMINOPHEN 325 MG TABLET PO PRN (19:48)
[2022-08-26] MEDS: GABAPENTIN 300 MG CAPSULE PO SCH ×3 (05:26→21:29)
[2022-08-26] MEDS: ATORVASTATIN 40 MG TABLET PO SCH (10:39)
[2022-08-26] MEDS: PANTOPRAZOLE 40 MG TABLET PO SCH (10:39)
[2022-08-26] MEDS: METOPROLOL TARTRATE 50 MG TABLET PO SCH ×2 (10:39→21:29)
[2022-08-26] MEDS: MULTIVITAMIN TABLET PO SCH (10:39)
[2022-08-26] MEDS: APIXABAN 5 MG TABLET PO SCH ×2 (10:39→21:29)
[2022-08-27] MEDS: GABAPENTIN 300 MG CAPSULE PO SCH ×3 (05:30→21:36)
[2022-08-27] MEDS: PANTOPRAZOLE 40 MG TABLET PO SCH (09:25)
[2022-08-27] MEDS: METOPROLOL TARTRATE 50 MG TABLET PO SCH ×2 (09:25→20:52)
[2022-08-27] MEDS: ATORVASTATIN 40 MG TABLET PO SCH (09:25)
[2022-08-27] MEDS: APIXABAN 5 MG TABLET PO SCH ×2 (09:25→20:52)
[2022-08-27] MEDS: MULTIVITAMIN TABLET PO SCH (09:25)
[2022-08-28] MEDS: GABAPENTIN 300 MG CAPSULE PO SCH ×3 (05:55→22:02)
[2022-08-28] MEDS: PANTOPRAZOLE 40 MG TABLET PO SCH (09:30)
[2022-08-28] MEDS: ATORVASTATIN 40 MG TABLET PO SCH (09:30)
[2022-08-28] MEDS: APIXABAN 5 MG TABLET PO SCH ×2 (09:30→21:17)
[2022-08-28] MEDS: METOPROLOL TARTRATE 50 MG TABLET PO SCH ×2 (09:39→21:05)
[2022-08-28] MEDS: MULTIVITAMIN TABLET PO SCH (09:39)
--- NOTE | 2022-08-28 16:10 | ED Physician Documentation ---
ED Addendum - Addendum Addendum: 08/28/22 16:08 The patient had no particular complaints when I met briefly with her. Nursing notes do not point out any obvious abnormalities or complaints. At this point we would maintain current medication and diet. I will asked the nursing staff about hygiene such as skin care and washing and skin checks.
[2022-08-29] MEDS: GABAPENTIN 300 MG CAPSULE PO SCH ×3 (06:00→21:59)
[2022-08-29] MEDS: ATORVASTATIN 40 MG TABLET PO SCH (08:51)
[2022-08-29] MEDS: APIXABAN 5 MG TABLET PO SCH ×2 (08:51→20:57)
[2022-08-29] MEDS: METOPROLOL TARTRATE 50 MG TABLET PO SCH ×2 (08:51→20:58)
[2022-08-29] MEDS: ACETAMINOPHEN 325 MG TABLET PO PRN (08:52)
[2022-08-29] MEDS: MULTIVITAMIN TABLET PO SCH (08:52)
[2022-08-29] MEDS: PANTOPRAZOLE 40 MG TABLET PO SCH (08:52)
[2022-08-29] MEDS ORDERED: LIDOCAINE VISCOUS 2% 15 ML UDC MM STA (12:36)
--- NOTE | 2022-08-29 12:40 | ED Physician Documentation ---
ED Addendum - Addendum Addendum: 08/29/22 12:40 Seen and examined at the bedside. She is complaining gum pain today. On exam there she is edentulous, may be some mild inflammation of the inferior anterior gums. She is eating a soft diet as high speak. Otherwise her only complaint is general aches and pains "from g etting old." Vital signs are unremarkable. There was an affidavit regarding her ability to care for herself which I filled out this morning and left for the social welfare administrator for tomorrow as today is Tuesday.
[2022-08-30] MEDS: GABAPENTIN 300 MG CAPSULE PO SCH ×3 (05:38→22:37)
[2022-08-30] MEDS: ACETAMINOPHEN 325 MG TABLET PO PRN (08:41)
[2022-08-30] MEDS: METOPROLOL TARTRATE 50 MG TABLET PO SCH ×2 (08:41→20:52)
[2022-08-30] MEDS: PANTOPRAZOLE 40 MG TABLET PO SCH (08:42)
[2022-08-30] MEDS: ATORVASTATIN 40 MG TABLET PO SCH (08:42)
[2022-08-30] MEDS: APIXABAN 5 MG TABLET PO SCH ×2 (08:42→20:52)
[2022-08-30] MEDS: MULTIVITAMIN TABLET PO SCH (09:01)
--- NOTE | 2022-08-30 09:21 | ED Physician Documentation ---
ED Addendum - Addendum Addendum: 08/30/22 09:19 Talked briefly with the patient. She did not really remember me from the other days. No particular complaints or pains at this time. No notable problems from nursing notes. Still looking at placement through social work and DPS. Plan continue current medications and diet. Promote activity level. Continue assistance with bedside commode etc.
[2022-08-31] MEDS: GABAPENTIN 300 MG CAPSULE PO SCH ×3 (06:05→22:07)
[2022-08-31] MEDS: MULTIVITAMIN TABLET PO SCH (10:45)
[2022-08-31] MEDS: ATORVASTATIN 40 MG TABLET PO SCH (10:45)
[2022-08-31] MEDS: METOPROLOL TARTRATE 50 MG TABLET PO SCH ×2 (10:45→22:02)
[2022-08-31] MEDS: PANTOPRAZOLE 40 MG TABLET PO SCH (10:45)
[2022-08-31] MEDS: APIXABAN 5 MG TABLET PO SCH ×2 (10:45→22:02)
[2022-08-31] MEDS: LIDOCAINE VISCOUS 2% 15 ML UDC MM PRN (19:34)
[2022-08-31] MEDS: ACETAMINOPHEN 325 MG TABLET PO PRN (23:06)
[2022-09-01] MEDS: GABAPENTIN 300 MG CAPSULE PO SCH ×3 (09:57→21:30)
[2022-09-01] MEDS: MULTIVITAMIN TABLET PO SCH (09:57)
[2022-09-01] MEDS: PANTOPRAZOLE 40 MG TABLET PO SCH (09:57)
[2022-09-01] MEDS: METOPROLOL TARTRATE 50 MG TABLET PO SCH ×2 (09:57→21:07)
[2022-09-01] MEDS: ATORVASTATIN 40 MG TABLET PO SCH (09:57)
[2022-09-01] MEDS: APIXABAN 5 MG TABLET PO SCH ×2 (09:57→21:06)
[2022-09-02] MEDS: ACETAMINOPHEN 325 MG TABLET PO PRN ×3 (00:21→18:49)
[2022-09-02] MEDS: GABAPENTIN 300 MG CAPSULE PO SCH ×3 (05:30→21:31)
[2022-09-02] MEDS ORDERED: IBUPROFEN 600 MG TABLET PO STA (05:38)
[2022-09-02] MEDS: METOPROLOL TARTRATE 50 MG TABLET PO SCH ×2 (11:23→21:13)
[2022-09-02] MEDS: MULTIVITAMIN TABLET PO SCH (11:24)
[2022-09-02] MEDS: PANTOPRAZOLE 40 MG TABLET PO SCH (11:24)
[2022-09-02] MEDS: ATORVASTATIN 40 MG TABLET PO SCH (11:24)
[2022-09-02] MEDS: APIXABAN 5 MG TABLET PO SCH ×2 (11:24→21:13)
--- NOTE | 2022-09-02 12:22 | ED Physician Documentation ---
ED Addendum - Addendum Addendum: 09/02/22 12:21 Patient seen by myself and examined at the bedside. She reports that she is doing so-so. Reports that she misses her son. States she has a difficult time eating or food because of Gum pain. I will order viscous lidocaine to help with analgesia. She is denying chest pain or shortness of air. Nursing notes were reviewed. We do note that they have held the dose of metoprolol due to bradycardia but she remains normotensive. Social work continues to work with APS as well as the court system in order to find appropriate placement for this patient. She remains here with a no contact order in place regarding her son.
[2022-09-03] MEDS: GABAPENTIN 300 MG CAPSULE PO SCH ×3 (05:37→22:00)
[2022-09-03] MEDS: METOPROLOL TARTRATE 50 MG TABLET PO SCH ×2 (10:26→20:40)
[2022-09-03] MEDS: APIXABAN 5 MG TABLET PO SCH ×2 (10:26→20:40)
[2022-09-03] MEDS: ACETAMINOPHEN 325 MG TABLET PO PRN ×2 (10:26→18:36)
[2022-09-03] MEDS: PANTOPRAZOLE 40 MG TABLET PO SCH (10:26)
[2022-09-03] MEDS: ATORVASTATIN 40 MG TABLET PO SCH (10:26)
[2022-09-03] MEDS: MULTIVITAMIN TABLET PO SCH (10:26)
[2022-09-03] MEDS ORDERED: ONDANSETRON ODT 4 MG TABLET TL STA (13:43)
--- NOTE | 2022-09-03 14:34 | ED Physician Documentation ---
ED Addendum - Addendum Addendum: 09/03/22 14:33 I have personally evaluated the patient at the bedside she is alert and well- appearing. She had endorsed some nausea to the nurses and I did prescribe Zofran for this. At the time of my evaluation she had just been out of bed to defecate and nursing staff reported a large amount of feces as well as urine in the commode. I have reviewed her vitals she has been afebrile. She does have some intermittent bradycardia with a heart rate in the 40s and 50s though she is normotensive. She does remain on metoprolol. If the bradycardia persist it may be appropriate to adjust the dose and we will continue to monitor. I have discussed her case with social work. They indicate to me that because there is no money in the patient's account its not likely she will be able to be transferred to the adult [facility] until early September at the earliest though she has been accepted. They are simply waiting for a payee source for this to occur.
[2022-09-04] MEDS: GABAPENTIN 300 MG CAPSULE PO SCH ×3 (05:31→21:37)
[2022-09-04] MEDS: ACETAMINOPHEN 325 MG TABLET PO PRN ×3 (06:02→20:47)
--- NOTE | 2022-09-04 12:06 | ED Physician Documentation ---
ED Addendum - Addendum Addendum: 09/04/22 12:02 I have seen and examined patient at the bedside. She is alert and well- appearing. She reports that she misses her son and would like to see him. She has been eating her diet adequately and has had minimal assistance to get out of bed to use the commode. She appears to have had adequate bowel and urinary output over the last 24 hours. I do note that nursing staff is held a dose metoprolol due to persistent bradycardia therefore I have reduced the dose. She has remained normotensive and without fevers. Cardiopulmonary auscultation was unremarkable today. Abdomen was soft and benign. I was able to adequately evaluate all of her skin surfaces and find no areas of breakdown She continues to board pending appropriate placement with the help of the courts, APS and social work. She continues to have a court order for no contact with her son. She has been previously seen by court appointed criminal attorney as well.
[2022-09-04] MEDS: PANTOPRAZOLE 40 MG TABLET PO SCH (14:34)
[2022-09-04] MEDS: APIXABAN 5 MG TABLET PO SCH ×2 (14:34→21:37)
[2022-09-04] MEDS: ATORVASTATIN 40 MG TABLET PO SCH (14:35)
[2022-09-04] MEDS: MULTIVITAMIN TABLET PO SCH (16:59)
[2022-09-04] MEDS: METOPROLOL TARTRATE 50 MG TABLET PO SCH ×2 (17:43→21:37)
[2022-09-05] MEDS: GABAPENTIN 300 MG CAPSULE PO SCH ×3 (05:37→22:04)
[2022-09-05] MEDS: LIDOCAINE VISCOUS 2% 15 ML UDC MM PRN ×2 (05:43→16:10)
[2022-09-05] MEDS: PANTOPRAZOLE 40 MG TABLET PO SCH (12:36)
[2022-09-05] MEDS: ACETAMINOPHEN 325 MG TABLET PO PRN (12:36)
[2022-09-05] MEDS: APIXABAN 5 MG TABLET PO SCH ×2 (12:36→20:53)
[2022-09-05] MEDS: ATORVASTATIN 40 MG TABLET PO SCH (12:36)
[2022-09-05] MEDS: MULTIVITAMIN TABLET PO SCH (12:38)
[2022-09-05] MEDS: METOPROLOL TARTRATE 50 MG TABLET PO SCH ×2 (12:51→20:53)
--- NOTE | 2022-09-05 21:01 | ED Physician Documentation ---
ED Addendum - Addendum Addendum: 09/05/22 21:00 I did speak briefly with the patient this evening. She was alert sitting in bed eating dinner. She reported that it must of been very busy in the emergency department today. She had no complaints of pain or distress otherwise. She did inquire to how long she would be remaining here and we told her likely at least a few weeks. Her metoprolol dose was adjusted yesterday due to persistent low bradycardia though I do note a vital signs today that showed a heart rate of 121. I am asking nursing staff to repeat. She will continue to board until appropriate placement is found with APS and social work. She is otherwise stable.
[2022-09-06] MEDS: GABAPENTIN 300 MG CAPSULE PO SCH ×3 (05:31→21:31)
[2022-09-06] MEDS: METOPROLOL TARTRATE 50 MG TABLET PO SCH ×2 (09:11→20:59)
[2022-09-06] MEDS: MULTIVITAMIN TABLET PO SCH (09:11)
[2022-09-06] MEDS: PANTOPRAZOLE 40 MG TABLET PO SCH (09:11)
[2022-09-06] MEDS: ATORVASTATIN 40 MG TABLET PO SCH (09:11)
[2022-09-06] MEDS: APIXABAN 5 MG TABLET PO SCH ×2 (09:12→20:59)
--- NOTE | 2022-09-06 18:01 | ED Physician Documentation ---
ED Addendum - Addendum Addendum: Patient remains boarding in the emergency department awaiting placement.Vitals have been stable. Social work continues to seek guardianship and placement.
[2022-09-06] MEDS: LIDOCAINE VISCOUS 2% 15 ML UDC MM PRN (21:00)
[2022-09-07] MEDS: GABAPENTIN 300 MG CAPSULE PO SCH ×3 (05:33→22:00)
[2022-09-07] MEDS: MULTIVITAMIN TABLET PO SCH (08:29)
[2022-09-07] MEDS: ATORVASTATIN 40 MG TABLET PO SCH (08:43)
[2022-09-07] MEDS: METOPROLOL TARTRATE 25 MG TABLET PO SCH ×2 (08:43→20:58)
[2022-09-07] MEDS: APIXABAN 5 MG TABLET PO SCH ×2 (08:43→20:58)
[2022-09-07] MEDS: PANTOPRAZOLE 40 MG TABLET PO SCH (08:43)
--- NOTE | 2022-09-07 09:15 | ED Physician Documentation ---
ED Addendum - Addendum Addendum: 09/07/22 09:14 Patient is boarding in the emergency department pending placement. She was sleeping when I went to check on her this morning so we will allow her to continue to rest. I did speak with her nurse Tutu regarding how much she is getting out of bed. Patient has been getting out of bed to get to the bedside commode But otherwise not much other activity. I will order for PT and OT to see her to also work with her to make sure she is not becoming deconditioned while awaiting placement in the emergency department.
[2022-09-08] MEDS: ACETAMINOPHEN 325 MG TABLET PO PRN (00:19)
[2022-09-08] MEDS: GABAPENTIN 300 MG CAPSULE PO SCH ×3 (06:06→21:53)
[2022-09-08] MEDS: ATORVASTATIN 40 MG TABLET PO SCH (09:26)
[2022-09-08] MEDS: METOPROLOL TARTRATE 25 MG TABLET PO SCH ×2 (09:26→21:53)
[2022-09-08] MEDS: APIXABAN 5 MG TABLET PO SCH ×2 (09:26→21:53)
[2022-09-08] MEDS: MULTIVITAMIN TABLET PO SCH (09:27)
[2022-09-08] MEDS: PANTOPRAZOLE 40 MG TABLET PO SCH (09:27)
[2022-09-09] MEDS: GABAPENTIN 300 MG CAPSULE PO SCH ×3 (05:52→21:38)
[2022-09-09] MEDS: MULTIVITAMIN TABLET PO SCH (11:07)
[2022-09-09] MEDS: ATORVASTATIN 40 MG TABLET PO SCH (11:07)
[2022-09-09] MEDS: APIXABAN 5 MG TABLET PO SCH ×2 (11:07→20:56)
[2022-09-09] MEDS: PANTOPRAZOLE 40 MG TABLET PO SCH (11:07)
[2022-09-09] MEDS: METOPROLOL TARTRATE 25 MG TABLET PO SCH ×2 (11:07→20:56)
[2022-09-09] MEDS: LIDOCAINE VISCOUS 2% 15 ML UDC MM PRN (11:08)
--- NOTE | 2022-09-09 14:30 | ED Physician Documentation ---
ED Addendum - Addendum Addendum: The patient was signed out to me at change of shift, continuing to pend placement in an assisted living facility after a long-term stay in the emergency department. She has been without complaints today. No acute issues have arisen as of this time of this dictation. 09/09/22 14:29
--- NOTE | 2022-09-09 16:13 | ED Physician Documentation ---
ED Addendum - Addendum Addendum: 09/09/22 16:10 I was asked by social work to consider filling out a POLST form for the patient met as a potentially has placement pending for Tuesday. However I do not believe that the patient has capacity to fill out her own POLST form or make her own medical decisions. The last time she had a POLST form completed was in 2018. It was signed by her son Ino. In addition to this patient recently signed paperwork to make her son Ino her durable medical power of corporate associate attorney which in dicates that she did not have medical decision-making capacity. Though her son is legally restricted from interacting with her or even being her DPOA at this time, certainly at some point within the last few months she trusted her son to make medical decisions and in the past he has indicated she would like to be a full code. At this time here in the emergency department the patient is a full code. Moving forward I think it would be important to recognize with the previous DPOA and POLST form indicate as it would not be appropriate for me at this time to fill a new one out.
[2022-09-10] MEDS: GABAPENTIN 300 MG CAPSULE PO SCH ×3 (06:08→21:24)
[2022-09-10] MEDS: ACETAMINOPHEN 325 MG TABLET PO PRN (07:34)
[2022-09-10] MEDS: MULTIVITAMIN TABLET PO SCH (09:25)
[2022-09-10] MEDS: APIXABAN 5 MG TABLET PO SCH ×2 (09:25→21:23)
[2022-09-10] MEDS: ATORVASTATIN 40 MG TABLET PO SCH (09:25)
[2022-09-10] MEDS: PANTOPRAZOLE 40 MG TABLET PO SCH (09:25)
[2022-09-10] MEDS: METOPROLOL TARTRATE 25 MG TABLET PO SCH ×3 (09:25→21:24)
[2022-09-11] MEDS: GABAPENTIN 300 MG CAPSULE PO SCH ×3 (05:32→22:13)
[2022-09-11] MEDS: METOPROLOL TARTRATE 25 MG TABLET PO SCH ×2 (09:50→21:00)
[2022-09-11] MEDS: APIXABAN 5 MG TABLET PO SCH ×2 (11:16→21:10)
[2022-09-11] MEDS: MULTIVITAMIN TABLET PO SCH (11:16)
[2022-09-11] MEDS: PANTOPRAZOLE 40 MG TABLET PO SCH (11:16)
[2022-09-11] MEDS: ATORVASTATIN 40 MG TABLET PO SCH (11:16)
--- NOTE | 2022-09-11 12:04 | ED Physician Documentation ---
ED Addendum - Addendum Addendum: 09/11/22 12:03 I was asked by the high school social studies teacher to fill out a POLST form. She will need 1 for disposition on Tuesday. Patient cannot make a decision and my understanding is the son cannot either. She was documented on prior H&P's to be full code, so I filled out the POLST form with full code measures. Obviously this can be changed once she has a fully appointed broth mixer.
[2022-09-11] MEDS: ACETAMINOPHEN 325 MG TABLET PO PRN (19:18)
[2022-09-12] MEDS: GABAPENTIN 300 MG CAPSULE PO SCH ×3 (05:50→21:32)
[2022-09-12] MEDS: METOPROLOL TARTRATE 25 MG TABLET PO SCH ×2 (09:27→20:32)
[2022-09-12] MEDS: MULTIVITAMIN TABLET PO SCH (09:27)
[2022-09-12] MEDS: ATORVASTATIN 40 MG TABLET PO SCH (09:27)
[2022-09-12] MEDS: PANTOPRAZOLE 40 MG TABLET PO SCH (09:27)
[2022-09-12] MEDS: APIXABAN 5 MG TABLET PO SCH ×2 (09:27→20:33)
--- NOTE | 2022-09-12 18:47 | ED Physician Documentation ---
ED Addendum - Addendum Addendum: 09/12/22 18:47 No complaints today. Continuing to await placement. No change.
[2022-09-12 20:15] VITALS: BP 134/86
[2022-09-12] MEDS: ACETAMINOPHEN 325 MG TABLET PO PRN (22:48)
[2022-09-13] MEDS: GABAPENTIN 300 MG CAPSULE PO SCH ×2 (05:30→14:07)
[2022-09-13] MEDS: ATORVASTATIN 40 MG TABLET PO SCH (09:53)
[2022-09-13] MEDS: APIXABAN 5 MG TABLET PO SCH (09:53)
[2022-09-13] MEDS: METOPROLOL TARTRATE 25 MG TABLET PO SCH (09:53)
[2022-09-13] MEDS: PANTOPRAZOLE 40 MG TABLET PO SCH (09:55)
[2022-09-13] MEDS: MULTIVITAMIN TABLET PO SCH (09:55)
--- NOTE | 2022-09-13 10:48 | ED Physician Documentation ---
ED Addendum - Addendum Addendum: 09/13/22 10:46 The patient was signed out to me at change of shift, pending continued efforts by social work to find a home for the patient. The patient had actually been accepted to an adult family home a couple of weeks ago, but they were waiting for finances to clear to be able to go ahead with full acceptance of the patient. I was informed by social work today that the finances had been cleared and that the patient could be transferred to the adult family home today. Arrange paperwork for this and the patient was very agreeable to the plan. Final impression: See original note Disposition: Discharged to adult family home via ambulance in stable condition.
--- NOTE | 2022-09-14 10:07 | ED Physician Documentation ---
ED Addendum - Addendum Addendum: 09/14/22 10:05 Per box office manager, the facility pt was discharged to is requesting a list of the medications she should be taking and a prescription for a walker. Pt was discharged yesterday. Pina Middleton should continue on the following medications: Apixaban 5 mg p.o. twice daily Atorvastatin 40 mg p.o. daily Gabapentin 300 mg p.o. 3 times daily Metoprolol tartrate 12.5 mg p.o. BID Multivitamin 1 tab p.o. Omeprazole 40 mg daily
== END 2022-09-13 16:25 | disposition home or self-care (01) ==
LOC: ED 16:08 → EEVIPCON 16:08 → ED 09-13 16:25
DX: K62.5 Hemorrhage of anus and rectum (principal); K59.00 Constipation, unspecified; R19.7 Diarrhea, unspecified; F03.90 Unspecified dementia, unspecified severity, without behavioral disturbance, psychotic disturbance, mood disturbance, and anxiety
CPT/HCPCS: 36415; 74177; 80053; 81003; 83690; 85025; 87045; 87046; 87427; 87493; 87635; 96361; 96374; 99283; 99284; A6250; A9270; Q0162; Q9967; 81001; 86850; 86900; 86901; 87086

== ENCOUNTER 2024-02-01 08:00 | Outpatient (CLI) | payer MEDICARE, OTHER, MEDICAID ==
[2024-02-01 21:43] LABS: BASOPHILS % (AUTO) 0.5 %; EOSINOPHILS # (AUTO) 0.1 10^3/uL (0.0-0.7); EOSINOPHILS % (AUTO) 2.2 %; LYMPHOCYTES # (AUTO) 2.4 10^3/uL (1.5-3.5); LYMPHOCYTES % (AUTO) 38.1 %; MEAN CORPUSCULAR HEMOGLOBIN 30.2 pg (27.0-31.0); MEAN CORPUSCULAR HGB CONC 31.3 g/dL (32.0-36.0); MEAN CORPUSCULAR VOLUME 96.7 fL (81.0-99.0); MEAN PLATELET VOLUME 9.5 fL (7.9-10.8); MONOCYTES # (AUTO) 0.6 10^3/uL (0.0-1.0); MONOCYTES % (AUTO) 9.9 %; NEUTROPHILS # (AUTO) 3.1 10^3/uL (1.5-6.6); NEUTROPHILS % (AUTO) 49.1 %; PLT - PLATELET COUNT 299 10^3/uL (130-450); RED BLOOD COUNT 3.31 10^6/uL (4.20-5.40); RED CELL DISTRIBUTION WIDTH 14.5 % (12.0-15.0); WHITE BLOOD COUNT 6.4 x10^3/uL (4.8-10.8)
[2024-02-01 22:04] LABS: BILIRUBIN,TOTAL 0.4 mg/dL (0.2-1.0); CALCIUM 8.9 mg/dL (8.5-10.3); CREATININE 0.9 mg/dL (0.6-1.3); TOTAL PROTEIN 6.1 g/dL (6.4-8.9)
== END 2024-02-01 23:59 | disposition home or self-care (01) ==
LOC: LAB.R 08:00
PROVIDERS: ATTEND Registered Nurse
DX: I50.22 Chronic systolic (congestive) heart failure (principal)
CPT/HCPCS: 80053; 85025

== ENCOUNTER 2024-02-02 13:01 | Outpatient (CLI) | payer MEDICARE, OTHER, MEDICAID ==
[2024-02-02 13:09] LABS: BILIRUBIN,URINE NEGATIVE (NEGATIVE); GLUCOSE, URINE (UA) NEGATIVE (NEGATIVE); KETONES,URINE (UA) NEGATIVE (NEGATIVE); LEUKOCYTE ESTERASE, URINE NEGATIVE (NEGATIVE); NITRITE,URINE NEGATIVE (NEGATIVE); OCCULT BLOOD,URINE NEGATIVE (NEGATIVE); PROTEIN,URINE NEGATIVE (NEGATIVE); UROBILINOGEN,URINE 0.2 (NORMAL) E.U./dL (NORMAL)
[2024-02-02 13:13] LABS: CLARITY,URINE CLEAR (CLEAR)
[2024-02-02 13:33] LABS: BACTERIA,URINE Rare /HPF (None Seen); RBC,URINE None Seen /HPF (0-5); SQUAMOUS EPITHELIAL CELL,UR FEW Squamous (<= Few); WBC,URINE 0-3 /HPF (0-5)
== END 2024-02-02 13:02 | disposition home or self-care (01) ==
LOC: LAB.R 13:01
PROVIDERS: ATTEND Registered Nurse
DX: G30.9 Alzheimer's disease, unspecified (principal); F02.80 Dementia in other diseases classified elsewhere, unspecified severity, without behavioral disturbance, psychotic disturbance, mood disturbance, and anxiety
CPT/HCPCS: 81001; 87086

== ENCOUNTER 2024-02-10 15:43 | Outpatient (CLI) | payer MEDICARE, OTHER, MEDICAID ==
--- NOTE | 2024-02-10 16:40 | XRAY Report ---
PROCEDURE: Knee 2V LT INDICATIONS: LEFT KNEE PAIN TECHNIQUE: 2 views of the knee(s) were acquired. COMPARISON: None. FINDINGS: Bones: No fractures or dislocations. Tricompartmental osteoarthritic changes with osteophytosis and severe joint space narrowing involving the medial and lateral compartments. No suspicious bony lesio ns. Soft tissues: No knee joint effusion. No suspicious soft tissue calcifications or masses. Surgical c lips projecting over the soft tissues around the knee. IMPRESSION: No acute bony abnormality. Severe osteoarthritic changes of the left knee. Reviewed by: Trino Dan MD on 02/10/2024 4:38 PM PDT Approved by: Trino Dan MD on 02/10/2024 4:38 PM PDT Station ID: [id number]
== END 2024-02-10 15:44 | disposition home or self-care (01) ==
LOC: DI 15:43
PROVIDERS: ATTEND Registered Nurse
DX: M17.12 Unilateral primary osteoarthritis, left knee (principal)

== ENCOUNTER 2024-04-08 08:41 | Outpatient (CLI) | payer MEDICARE, OTHER, MEDICAID | END 2024-04-08 23:59 | disposition critical access hospital (66) | LOC: EMS 08:41 | DX: R07.89 Other chest pain (principal) | CPT/HCPCS: A0425; A0429 ==

== ENCOUNTER 2024-04-08 08:50 | Emergency (ER) | payer MEDICARE, OTHER, MEDICAID ==
[2024-04-08 09:40] LABS: BASOPHILS % (AUTO) 0.4 %; EOSINOPHILS # (AUTO) 0.1 10^3/uL (0.0-0.7); EOSINOPHILS % (AUTO) 1.5 %; HCT - HEMATOCRIT 34.2 % (37.0-47.0); HGB - HEMOGLOBIN 10.5 g/dL (12.0-16.0); LYMPHOCYTES % (AUTO) 27.2 %; MEAN CORPUSCULAR HEMOGLOBIN 28.7 pg (27.0-31.0); MEAN CORPUSCULAR HGB CONC 30.7 g/dL (32.0-36.0); MEAN CORPUSCULAR VOLUME 93.4 fL (81.0-99.0); MEAN PLATELET VOLUME 9.6 fL (7.9-10.8); MONOCYTES # (AUTO) 0.5 10^3/uL (0.0-1.0); MONOCYTES % (AUTO) 7.1 %; NEUTROPHILS # (AUTO) 4.7 10^3/uL (1.5-6.6); NEUTROPHILS % (AUTO) 63.5 %; PLT - PLATELET COUNT 227 10^3/uL (130-450); RED BLOOD COUNT 3.66 10^6/uL (4.20-5.40); RED CELL DISTRIBUTION WIDTH 14.5 % (12.0-15.0); WHITE BLOOD COUNT 7.3 x10^3/uL (4.8-10.8)
--- NOTE | 2024-04-08 09:52 | ED Physician Documentation ---
PD HPI CHEST PAIN - Stated complaint Stated Complaint: CP - Chief complaint Chief Complaint: Cardiac - History obtained from History obtained from: Patient, Caregiver - History of Present Illness Timing - onset: How many days ago (2) Timing - onset during: Rest, Light activity Timing - duration: Days (2) Timing - details: Gradual onset, Still present Quality: Sharp, Pain (she is having consistent right parasternal chest wall tenderness and pain for 2 days. No edema, dyspnea. No cough. Not aware of i njury/fall.) Location: Right chest (parasternal.) Improved by: No: Nitro Associated symptoms: No: Shortness of air, Diaphoresis, Nausea, Cough Similar symptoms before: Has not had sx before Recently seen: Not recently seen Review of Systems Constitutional: denies: Fever, Chills Nose: denies: Rhinorrhea / runny nose, Congestion Throat: denies: Sore throat Respiratory: denies: Cough Skin: denies: Rash, Lesions Musculoskeletal: denies: Extremity swelling PD PAST MEDICAL HISTORY - Past Medical History Past Medical History: Yes Cardiovascular: Hypertension, High cholesterol, Coronary artery disease, [place] Respiratory: Asthma, Pneumonia, Other Neuro: None, Alzhiemer's, CVA, Peripheral neuropathy Endocrine/Autoimmune: None GI: GERD, Colon polyps, Chronic diarrhea, Other : Kidney stones, Other HEENT: Other Psych: Anxiety, Other Musculoskeletal: Osteoarthritis, Chronic back pain Derm: None - Past Surgical History Past Surgical History: Yes General: Cholecystectomy, Colonoscopy Ortho: 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, Other Cardiovascular: CABG, Coronary stent - Present Medications Home Medications: Ambulatory Orders Medication Instructions Recorded Confirmed Albuterol Sulfate [Proair Hfa 2 puffs INH Q6H PRN 03/31/15 06/03/22 Inhaler] Loratadine [Allergy Relief] 10 mg PO DAILY 03/31/15 06/03/22 Hunter-3 Fatty Acids/Fish Oil 1 gm PO DAILY 03/31/15 06/03/22 [Hunter 3 1,000 mg Softgel] polyethylene glycoL 3350(BULK) 17 gm PO DAILY PRN #1 bottle 10/10/21 06/03/22 [Miralax (Bulk)] Apixaban [Eliquis] 5 mg PO BID #30 tab 06/23/22 Atorvastatin Calcium 40 mg PO QPM #30 tab 06/23/22 Gabapentin [Neurontin] 300 mg PO TID #90 cap 06/23/22 Metoprolol Tartrate [Lopressor] 25 mg PO BID #60 tab 06/23/22 Mirtazapine [Remeron] 15 mg PO QPM #30 tab 06/23/22 Multivitamin W/Minerals [Theragran 1 tab PO DAILYWM tab 06/23/22 M] Nitroglycerin [Nitrostat] 0.4 mg SL Q5MIN PRN #30 tab 06/23/22 Pantoprazole Sodium [Protonix] 40 mg PO DAILY #30 tab 06/23/22 Benzocaine [Hurricaine] 1 applic ORAL QID PRN 06/30/22 06/30/22 Phenazopyridine [Pyridium] 100 mg PO TID #21 tab 06/30/22 Acetaminophen [Tylenol] 650 mg PO Q6H PRN #30 tablet 07/06/22 Acetaminophen [Tylenol] 650 mg PO Q6H PRN #30 tab 09/13/22 Apixaban [Eliquis] 5 mg PO BID #60 tablet 09/13/22 Atorvastatin [Lipitor] 40 mg PO QPM #60 tablet 09/13/22 Gabapentin [Neurontin] 300 mg PO TID #90 cap 09/13/22 Metoprolol Tartrate [Lopressor] 12.5 mg PO BID #60 tablet 09/13/22 Omeprazole 40 mg PO DAILY #30 cap 09/13/22 Walker [Ultra-Light Rollator] 1 each MC DAILY #1 each 09/14/22 Acetaminophen [Acetaminophen Extra 500 mg PO QID PRN #50 tablet 04/08/24 Strength] Diclofenac Sodium 1% Gel [Voltaren 2 gm TOP QID #50 gm 04/08/24 Gel] Lidocaine Patch 5% [Lidoderm Patch] 1 patch TOP DAILY PRN #10 patch 04/08/24 Sucralfate [Carafate] 1 gm PO HS 10 Days #100 ml 04/08/24 - Allergies Allergies/Adverse Reactions: Allergies Allergy/AdvReac Type Severity Reaction Status Date / Time furosemide Allergy Intermediate Rash Verified 04/08/24 09:04 Penicillins Allergy Rash Verified 04/08/24 09:04 lisinopril AdvReac Mild Cough Verified 04/08/24 09:04 - Social History Does the pt smoke?: No Smoking Status: Never smoker Does the pt drink ETOH?: No Does the pt have substance abuse?: No - Immunizations Immunizations are current?: Yes - POLST Patient has POLST: No POLST Status: Full Code PD ED PE NORMAL - Vitals Vital signs reviewed: Yes - General General: No acute distress, Well developed/nourished. No: Alert and oriented X 3 (person and place but not time.) - Neck Neck: Supple, no meningeal sign, No adenopathy, No JVD - Cardiac Cardiac: No murmur. No: RRR - Respiratory Respiratory: No respiratory distress, Clear bilaterally, Other (very localized chest wall tenderness right parasternal. Palpable are her sternotomy wires under skin but are central over sternum and not tender there. No rash nor redness. ) - Abdomen Abdomen: Soft, Non tender - Extremities Extremities: Normal ROM s pain, No edema, No calf tenderness / cord - Neuro Neuro: No motor deficit, No sensory deficit Results - Vitals Vitals: Vital Signs - 24 hr 04/08/24 04/08/24 04/08/24 08:59 09:07 10:40 Temperature 36.3 C L Heart Rate 60 60 65 Respiratory 20 16 Rate Blood Pressure 154/104 H 181/94 H O2 Saturation 99 98 95 04/08/24 11:35 Temperature Heart Rate 82 Respiratory 16 Rate Blood Pressure 194/84 H O2 Saturation 95 Oxygen O2 Source Room air - EKG (time done) 08:59 EKG releavant findings:: EKG personally interpreted by author of this note. Relevant findings are: Rate: Rate (enter#) (52) Rhythm: Atrial fibrillation QRS: Normal Ischemia: Normal ST segments. No: ST elevation c/w ischemia, ST depression - Labs Labs: Laboratory Tests 04/08/24 04/08/24 09:34 09:34 WBC 7.3 RBC 3.66 L Hgb 10.5 L Hct 34.2 L MCV 93.4 MCH 28.7 MCHC 30.7 L RDW 14.5 Plt Count 227 MPV 9.6 Neut # (Auto) 4.7 Lymph # (Auto) 2.0 [place] # (Auto) 0.5 Eos # (Auto) 0.1 Baso # (Auto) 0.0 Absolute Nucleated RBC 0.00 Nucleated RBC % 0.0 Sodium 130 L Potassium 4.7 H Chloride 95 L Carbon Dioxide 30 Anion Gap 5.0 L BUN 16 Creatinine 0.7 Estimated GFR (MDRD) 79 L Glucose 85 Calcium 9.5 Total Bilirubin 0.5 AST 13 ALT 9 L Alkaline Phosphatase 102 Troponin I High Sens 5.1 Total Protein 7.0 Albumin 3.8 Globulin 3.2 Albumin/Globulin Ratio 1.2 Lipase 23 - Rads (name of study) chest xray Relevant Findings:: Prelim report reviewed (no acute process.), EMP independent interpretation of test ( Noted is prior CABG wires and apparent valve repladcement. Clips in chest likely c/w use of RUSS for bypass. ) PD Medical Decision Making - ED course Complexity details: reviewed results (normal Trop and labs, lipase and Lfts. No ischmia on ECG. rate controlled fib. CXR clear. ), re-evaluated patient (clinically distinct local costchondral tenderness. No signs of CAD or lung related on testing. Due to being on DOAC, will treat with tylenol, but then NSAID topical and lido patches. ), considered differential (distinctly tender right parasternal chest wall. hurts with movement and breathing locally. No no reyna injury. No cough nor URI syptoms. ), d/w patient Departure - Departure Disposition: Home, Self Care Clinical Impression: Anterior chest wall pain, GERD (gastroesophageal reflux disease) Condition: Stable Record reviewed to determine appropriate education?: Yes Instructions: ED Chest Pain Costochondritis Prescriptions: Acetaminophen [Acetaminophen Extra Strength] 500 mg PO QID PRN #50 tablet PRN Reason: Pain Sucralfate [Carafate] 1 gm PO HS 10 Days #100 ml Lidocaine Patch 5% [Lidoderm Patch] 1 patch TOP DAILY PRN #10 patch PRN Reason: pain Diclofenac Sodium 1% Gel [Voltaren Gel] 2 gm TOP QID #50 gm Comments: Your EKG and chest x-ray and blood tests are good. You do have an abnormal rhythm called atrial fibrillation which is known for you. You are on a blood thinner for that and medications. Your chest x-ray does not show any obvious lung abnormalities. Your blood tests did not show show any signs of heart injury/heart attack. You are tender locally in that area. It seems likely to be some irritation or inflammation of the cartilage adjacent to the breastbone/sternum. I would have you take Tylenol 4 times daily to help with the pain. With your b lood thinner, that limits the other types of medications such as anti- inflammatories to take orally. We can use 1 locally as well as some numbing patch to the area to help with the pain. I wrote for medications called Voltaren/diclofenac to use 3 times daily to the area and then a lidocaine patch can be applied daily as well. Recheck if not improved well over the next several days. Regarding your complaint of heartburn, I also added a acid reducing medicine. Forms: PCP List Discharge Date/Time: 04/08/24 11:35
[2024-04-08 09:55] LABS: ALBUMIN 3.8 g/dL (3.2-5.5); ALBUMIN/GLOBULIN RATIO 1.2 (1.0-2.2); BILIRUBIN,TOTAL 0.5 mg/dL (0.2-1.0); CALCIUM 9.5 mg/dL (8.5-10.3); CREATININE 0.7 mg/dL (0.6-1.3); POTASSIUM 4.7 mmol/L (3.5-4.5)
[2024-04-08 10:00] LABS: TROPONIN I HIGH SENSITIVITY 5.1 ng/L (2.3-14.8)
--- NOTE | 2024-04-08 10:05 | XRAY Report ---
PROCEDURE: Chest 1V INDICATIONS: Chest pain TECHNIQUE: One view of the chest was acquired. COMPARISON: 06/02/2022. Correlation is made with chest CT, 05/17/2018. FINDINGS: Surgical changes and devices: Sternotomy changes are noted. Left chest wall and axillary clips are seen. Cholecystectomy clips are seen. Lungs and pleura: An incomplete inspiratory result is noted, with low lung volumes and crowding of t he vascular markings. No focal infiltrates are seen. No large pneumothorax or large pleural effusion can be seen. Mediastinum: Mediastinal contours appear normal. Heart size is normal. Bones and chest wall: No suspicious bony lesions. Age-appropriate degenerative changes are seen. O verlying soft tissues appear unremarkable. IMPRESSION: Low lung volumes, without an acute cardiopulmonary abnormality seen. Postoperative and degenerative changes are seen. Reviewed by: Quinton Gasca MD on 04/08/2024 9:04 AM MIKAELA Approved by: Quinton Gasca MD on 04/08/2024 9:04 AM MIKAELA Station ID: [id number]
[2024-04-08] MEDS: KETOROLAC 15 MG/ML VIAL IVP STA (10:47)
[2024-04-08] MEDS: LIDOCAINE PATCH 5% TOP STA (10:47)
[2024-04-08] MEDS: ACETAMINOPHEN 325 MG TABLET PO STA (10:47)
[2024-04-08 10:49] VITALS: O2SAT 95
[2024-04-08 11:52] VITALS: BP 194/84
== END 2024-04-08 11:35 | disposition home or self-care (01) ==
LOC: EDUNIT# → ED 08:50
DX: R07.89 Other chest pain (principal); K21.9 Gastro-esophageal reflux disease without esophagitis; I48.91 Unspecified atrial fibrillation; Z79.01 Long term (current) use of anticoagulants
CPT/HCPCS: 36415; 71045; 80053; 83690; 84484; 85025; 93005; 96374; 99284; A9270

== ENCOUNTER 2024-04-08 11:32 | Outpatient (CLI) | payer MEDICARE, OTHER, MEDICAID | END 2024-04-08 23:59 | disposition home or self-care (01) | LOC: EMS 11:32 | PROVIDERS: ATTEND Emergency Medicine | DX: R41.0 Disorientation, unspecified (principal) | CPT/HCPCS: A0425; A0428 ==

== ENCOUNTER 2024-04-20 08:00 | Outpatient (CLI) | payer MEDICARE, OTHER, MEDICAID ==
[2024-04-20 20:06] LABS: BILIRUBIN,URINE NEGATIVE (NEGATIVE); GLUCOSE, URINE (UA) NEGATIVE (NEGATIVE); KETONES,URINE (UA) NEGATIVE (NEGATIVE); LEUKOCYTE ESTERASE, URINE LARGE (NEGATIVE); NITRITE,URINE POSITIVE (NEGATIVE); OCCULT BLOOD,URINE MODERATE (NEGATIVE); PROTEIN,URINE NEGATIVE (NEGATIVE); UROBILINOGEN,URINE 0.2 (NORMAL) E.U./dL (NORMAL)
[2024-04-20 20:12] LABS: CLARITY,URINE CLOUDY (CLEAR)
[2024-04-20 20:40] LABS: AMORPHOUS SEDIMENT,UR Moderate /LPF; BACTERIA,URINE Few /HPF (None Seen); RBC,URINE 0-5 /HPF (0-5); SQUAMOUS EPITHELIAL CELL,UR RARE Squamous (<= Few)
[2024-04-21 00:07] LABS: CALCIUM 8.9 mg/dL (8.5-10.3); CREATININE 0.7 mg/dL (0.6-1.3); POTASSIUM 4.9 mmol/L (3.5-4.5)
== END 2024-04-20 23:59 | disposition home or self-care (01) ==
LOC: LAB.R 08:00
DX: R30.0 Dysuria (principal); I50.22 Chronic systolic (congestive) heart failure; I10 Essential (primary) hypertension
CPT/HCPCS: 80048; 81001; 81003; 87086

== ENCOUNTER 2024-06-13 06:05 | Outpatient (CLI) | payer MEDICARE, OTHER, MEDICAID | END 2024-06-13 23:59 | disposition critical access hospital (66) | LOC: EMS 06:05 | DX: R10.32 Left lower quadrant pain (principal); R11.2 Nausea with vomiting, unspecified; R00.1 Bradycardia, unspecified; R10.814 Left lower quadrant abdominal tenderness | CPT/HCPCS: A0425; A0429 ==

== ENCOUNTER 2024-06-13 06:13 | Emergency (ER) | payer MEDICARE, OTHER, MEDICAID ==
--- NOTE | 2024-06-13 06:22 | ED Physician Documentation ---
PD HPI ABD PAIN - Stated complaint Stated Complaint: RLQ ABD PX - History obtained from History obtained from: Patient, EMS, Caregiver - History of Present Illness Timing - onset: How many hours ago (few), Today (Reported onset about 3 in the morning with abdominal pain and several episodes of vomiting. No diarrhea. No noted fever. EMS was called. Patient lives at [facility].) Timing - duration: Hours (few) Timing - details: Abrupt onset, Still present Quality: Cramping, Aching, Pain Location: Periumbilical, RLQ Associated symptoms: Nausea, Vomiting (several times) Review of Systems Constitutional: denies: Fever Nose: denies: Congestion Respiratory: denies: Cough GI: reports: Abdominal Pain, Nausea, Vomiting. 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, Other Cardiovascular: CABG, Coronary stent - Present Medications Home Medications: Ambulatory Orders Medication Instructions Recorded Confirmed polyethylene glycoL 3350(BULK) 17 gm PO DAILY PRN #1 bottle 10/10/21 06/13/24 [Miralax (Bulk)] Metoprolol Tartrate [Lopressor] 25 mg PO BID #60 tab 06/23/22 06/13/24 Mirtazapine [Remeron] 15 mg PO QPM #30 tab 06/23/22 06/13/24 Multivitamin W/Minerals [Theragran 1 tab PO DAILYWM tab 06/23/22 06/13/24 M] Nitroglycerin [Nitrostat] 0.4 mg SL Q5MIN PRN #30 tab 06/23/22 06/13/24 Acetaminophen [Tylenol] 650 mg PO Q6H PRN #30 tab 09/13/22 06/13/24 Atorvastatin [Lipitor] 40 mg PO QPM #60 tablet 09/13/22 06/13/24 Gabapentin [Neurontin] 300 mg PO TID #90 cap 09/13/22 06/13/24 Metoprolol Tartrate [Lopressor] 12.5 mg PO BID #60 tablet 09/13/22 Omeprazole 40 mg PO DAILY #30 cap 09/13/22 06/13/24 Walker [Ultra-Light Rollator] 1 each MC DAILY #1 each 09/14/22 Diclofenac Sodium 1% Gel [Voltaren 2 gm TOP QID #50 gm 04/08/24 06/13/24 Gel] Lidocaine Patch 5% [Lidoderm Patch] 1 patch TOP DAILY PRN #10 patch 04/08/24 06/13/24 Sucralfate [Carafate] 1 gm PO HS 10 Days #100 ml 04/08/24 06/13/24 Sulfamethox/Trimeth 800/160 1 each PO BID #14 tablet 06/13/24 [Bactrim Ds 800/160] - Allergies Allergies/Adverse Reactions: Allergies Allergy/AdvReac Type Severity Reaction Status Date / Time furosemide Allergy Intermediate Rash Verified 06/13/24 08:15 Penicillins Allergy Rash Verified 06/13/24 08:15 lisinopril AdvReac Mild Cough Verified 06/13/24 08:15 - Social History Does the pt smoke?: No Smoking Status: Never smoker Does the pt drink ETOH?: No Does the pt have substance abuse?: No - Immunizations Immunizations are current?: Yes - POLST Patient has POLST: Yes POLST Status: Limited Interventions PD ED PE NORMAL - Vitals Vital signs reviewed: Yes - General General: No acute distress, Well developed/nourished - Respiratory Respiratory: No respiratory distress, Clear bilaterally - Abdomen Abdomen: Normal bowel sounds, Soft, Non distended, No organomegaly, Other (Tender with minimal local guarding. No percussion tenderness to the right abdomen predominantly right lower. No flank tenderness. Left side not tender.) - Female Female : Deferred - Rectal Rectal: Deferred - Back Back: No CVA TTP - Derm Derm: Normal color, Warm and dry - Extremities Extremities: No edema, No calf tenderness / cord - Neuro Neuro: No motor deficit, Normal speech Results - Vitals Vitals: Vital Signs - 24 hr 06/13/24 06/13/24 06/13/24 06:18 07:00 09:00 Temperature 36.9 C Heart Rate 74 67 68 Respiratory 16 18 17 Rate Blood Pressure 179/98 H 176/100 H 156/88 H O2 Saturation 95 95 94 06/13/24 10:04 Temperature 36.4 C L Heart Rate 58 L Respiratory 15 Rate Blood Pressure 156/88 H O2 Saturation 98 Oxygen O2 Source Room air - Labs Labs: Laboratory Tests 06/13/24 06/13/24 06/13/24 06:34 06:34 08:46 WBC 9.3 RBC 4.01 L Hgb 11.9 L Hct 37.6 MCV 93.8 MCH 29.7 MCHC 31.6 L RDW 14.5 Plt Count 239 MPV 9.5 Neut # (Auto) 6.6 Lymph # (Auto) 2.0 [place] # (Auto) 0.6 Eos # (Auto) 0.1 Baso # (Auto) 0.0 Absolute Nucleated RBC 0.00 Nucleated RBC % 0.0 Sodium 132 L Potassium 4.8 H Chloride 97 L Carbon Dioxide 29 Anion Gap 6.0 BUN 14 Creatinine 0.7 Estimated GFR (MDRD) 79 L Glucose 104 Calcium 9.8 Total Bilirubin 0.7 AST 15 ALT 10 Alkaline Phosphatase 133 H Total Protein 7.1 Albumin 3.8 Globulin 3.3 Albumin/Globulin Ratio 1.2 Lipase 19 Urine Color YELLOW Urine Clarity CLOUDY Urine pH 8.0 H Ur Specific [place] 1.015 Urine Protein 30 H Urine Glucose (UA) NEGATIVE Urine Ketones NEGATIVE Urine Occult Blood TRACE-INTA Urine Nitrite POSITIVE H Urine Bilirubin NEGATIVE Urine Urobilinogen 0.2 (NORMAL) Ur Leukocyte Esterase LARGE H Urine RBC 6-10 H Urine WBC 11-25 H Ur Squamous Epith Cells FEW Squamous Amorphous Sediment Few Urine Bacteria Moderate H Ur Microscopic Review INDICATED Urine Culture Comments INDICATED PD Medical Decision Making - ED course Complexity details: considered differential (Abrupt onset crampy abdominal pain mid to right associated with repetitive vomiting. Tenderness in the right abdomen. Consideration of viral illness versus obstruction versus urinary tract versus appendix. Will get labs and CT scan and give IV fluids with meds.), d/w patient Departure - Departure Disposition: 01 Home, Self Care Clinical Impression: Right sided abdominal pain, Urinary tract infection Nausea and vomiting Qualifiers: Vomiting type: bilious vomiting Qualified Code(s): R11.14 - Bilious vomiting Condition: Stable Record reviewed to determine appropriate education?: Yes Instructions: ED UTI Cystitis Female Prescriptions: Sulfamethox/Trimeth 800/160 [Bactrim Ds 800/160] 1 each PO BID #14 tablet Comments: Your laboratory studies actually look fairly good, but your urinalysis does show a urinary tract infection. This is probably causing your pain, as your CT of the abdomen and pelvis does not show any concerning findings. Please take the antibiotics as directed. Please follow-up with your primary doctor for further concerns. A prescription for your antibiotics has been electronically transmitted to the [facility] in [place]. Forms: PCP List Discharge Date/Time: 06/13/24 10:06
[2024-06-13] MEDS ORDERED: iohexoL-300 100 ML VIAL ONE (06:35)
[2024-06-13 06:42] LABS: BASOPHILS % (AUTO) 0.2 %; EOSINOPHILS # (AUTO) 0.1 10^3/uL (0.0-0.7); EOSINOPHILS % (AUTO) 1.2 %; HCT - HEMATOCRIT 37.6 % (37.0-47.0); HGB - HEMOGLOBIN 11.9 g/dL (12.0-16.0); LYMPHOCYTES % (AUTO) 21.1 %; MEAN CORPUSCULAR HEMOGLOBIN 29.7 pg (27.0-31.0); MEAN CORPUSCULAR HGB CONC 31.6 g/dL (32.0-36.0); MEAN CORPUSCULAR VOLUME 93.8 fL (81.0-99.0); MEAN PLATELET VOLUME 9.5 fL (7.9-10.8); MONOCYTES # (AUTO) 0.6 10^3/uL (0.0-1.0); MONOCYTES % (AUTO) 6.3 %; NEUTROPHILS # (AUTO) 6.6 10^3/uL (1.5-6.6); PLT - PLATELET COUNT 239 10^3/uL (130-450); RED BLOOD COUNT 4.01 10^6/uL (4.20-5.40); RED CELL DISTRIBUTION WIDTH 14.5 % (12.0-15.0); WHITE BLOOD COUNT 9.3 x10^3/uL (4.8-10.8)
[2024-06-13] MEDS: MORPHINE 10 MG/ML VIAL IVP STA (06:56)
[2024-06-13 06:57] LABS: ALBUMIN 3.8 g/dL (3.2-5.5); ALBUMIN/GLOBULIN RATIO 1.2 (1.0-2.2); BILIRUBIN,TOTAL 0.7 mg/dL (0.2-1.0); CALCIUM 9.8 mg/dL (8.5-10.3); CREATININE 0.7 mg/dL (0.6-1.3); POTASSIUM 4.8 mmol/L (3.5-4.5); TOTAL PROTEIN 7.1 g/dL (6.4-8.9)
[2024-06-13] MEDS: SODIUM CHLORIDE 0.9% 1,000 ML IV STA (06:57)
[2024-06-13] MEDS: ONDANSETRON 4 MG/2 ML VIAL IVP STA (06:57)
[2024-06-13] MEDS: KETOROLAC 15 MG/ML VIAL IVP STA (06:57)
--- NOTE | 2024-06-13 07:53 | CT Report ---
PROCEDURE: Abdomen/Pelvis W INDICATIONS: RLQ Abdominal pain, appendicitis suspected CONTRAST: Iohex 300 100ml TECHNIQUE: After the administration of intravenous contrast, a CT scan of the abdomen and pelvis was performed. Images were recorded and evaluated at appropriate window settings. Reformats: coronal and sagittal. F or radiation dose reduction, the following was used: automated exposure control, adjustment of mA and /or kV according to patient size. COMPARISON: 08/11/2022. FINDINGS: Image quality: Diagnostic. Lower chest: Four-chamber cardiomegaly, most notably involving the bilateral atria. Mild to moderate left pleural effusion with compressive left basilar atelectasis.. Liver: No solid mass. Gallbladder: Surgically absent. Biliary tree: Interval increase in the size of the biliary tree. The right posterior bile duct measur es 9.7 mm. The distal common duct measures 15.1 mm. The right posterior hepatic duct previously measu red 4 mm and the distal common duct previously measured 8.9 mm. Spleen: No splenomegaly. Pancreas: No pancreatic ductal dilation. Adrenals: No adrenal nodule. Kidneys and ureters: No hydronephrosis. No renal cystic lesion which requires follow up. No solid mas s. Both kidneys are small.. Stomach, bowel and peritoneum: No gastric or small bowel dilation. No abnormal wall thickening. No pa thologic free fluid. A normal appendix extends to the entrance of a fat-containing right inguinal her lila. Reference coronal image 56 of series 4. It has a normal caliber and has air within it. Lymph nodes: No central or retroperitoneal adenopathy. Vessels: No infrarenal aortic aneurysm. Patent portal vein. PELVIS Reproductive organs: Uterus is surgically absent. No adnexal masses.. Bladder: Mild diffuse wall thickening. Consider possible bacterial cystitis. Pelvic lymph nodes: No pelvic adenopathy by size criteria. Bones: No aggressive osseous abnormality. Other: No significant ventral or inguinal hernia. IMPRESSION: 1. Normal appendix. 2. Fat-containing right inguinal hernia. 3. Mild diffuse bladder wall thickening. Consider possible bacterial cystitis. 4. Interval increase in biliary ductal dilatation. 5. Remote cholecystectomy and hysterectomy. 6. Four-chamber cardiomegaly. 7. Mild to moderate left pleural effusion with minimal left basilar atelectasis. Comment: If suspect biliary stone, consider MRCP. Reviewed by: Isidro Jeff MD on 06/13/2024 7:52 AM PDT Approved by: Isidro Jeff MD on 06/13/2024 7:52 AM PDT Station ID: [id number]
[2024-06-13] MEDS: iohexoL-300 100 ML VIAL IVP ONE (08:42)
[2024-06-13 08:59] LABS: BILIRUBIN,URINE NEGATIVE (NEGATIVE); GLUCOSE, URINE (UA) NEGATIVE (NEGATIVE); KETONES,URINE (UA) NEGATIVE (NEGATIVE); LEUKOCYTE ESTERASE, URINE LARGE (NEGATIVE); NITRITE,URINE POSITIVE (NEGATIVE); OCCULT BLOOD,URINE TRACE-INTA (NEGATIVE); PROTEIN,URINE 30 mg/dL (NEGATIVE); UROBILINOGEN,URINE 0.2 (NORMAL) E.U./dL (NORMAL)
[2024-06-13 09:04] LABS: CLARITY,URINE CLOUDY (CLEAR)
[2024-06-13 09:15] LABS: AMORPHOUS SEDIMENT,UR Few /LPF; BACTERIA,URINE Moderate /HPF (None Seen); SQUAMOUS EPITHELIAL CELL,UR FEW Squamous (<= Few)
--- NOTE | 2024-06-13 09:26 | ED Physician Documentation ---
ED Addendum - Addendum Addendum: 06/13/24 09:25 The patient was signed out to me at change of shift, pending completion of workup after presenting with vague right-sided abdominal pain. The patient's labs showed a normal white blood cell count at 9 and a slight hyponatremia at 132. Her urinalysis was strongly positive for infection without evidence of contamination. CT scan was negative for acute findings. The patient was started on Bactrim for her UTI and was deemed stable for discharge home. I have sent a prescription for the same to the pharmacy of choice on patient's record. Final impression: 1. Abdominal pain 2. Vomiting 3. UTI Disposition: Discharged home in stable and improved condition. 06/13/24 09:50
[2024-06-13] MEDS: SULFAMETH/TRIMETH DS 800/160 MG TABLET PO STA (09:45)
[2024-06-13 09:58] VITALS: BP 156/88
[2024-06-13 10:09] VITALS: O2SAT 98
--- NOTE | 2024-06-15 11:53 | ED Physician Documentation ---
ED Addendum - Addendum Addendum: 06/15/24 11:52 The patient's urine culture came back showing Aerococcus species greater than 100,000. Review of the literature shows this to be a gram-positive coccus typically sensitive to beta-lactam's and vancomycin as well as cephalosporins. She is allergic to penicillin. Had been discharged on Bactrim to which this typically shows resistance. The lab states sensitivity is not indicated for this isolated based on the usual susceptibilities. Therefore we would be in a position to need to change from the Bactrim to cephalexin 500 mg 3 times a day for 7 days. I sent this to her pharmacy. Will have nursing call her.
== END 2024-06-13 10:06 | disposition home or self-care (01) ==
LOC: EDUNIT# → ED 06:13
DX: N39.0 Urinary tract infection, site not specified (principal); B96.89 Other specified bacterial agents as the cause of diseases classified elsewhere; R10.31 Right lower quadrant pain; R11.14 Bilious vomiting; K40.90 Unilateral inguinal hernia, without obstruction or gangrene, not specified as recurrent; I51.7 Cardiomegaly; J90 Pleural effusion, not elsewhere classified
CPT/HCPCS: 36415; 74177; 80053; 81001; 83690; 85025; 87086; 96361; 96374; 96375; 99284; A9270; P9612; Q9967; 51701; 81003

== ENCOUNTER 2024-06-13 10:06 | Outpatient (CLI) | payer MEDICARE, OTHER, MEDICAID | END 2024-06-13 23:59 | disposition home or self-care (01) | LOC: EMS 10:06 | PROVIDERS: ATTEND Emergency Medicine | DX: R10.9 Unspecified abdominal pain (principal); N39.0 Urinary tract infection, site not specified; F03.90 Unspecified dementia, unspecified severity, without behavioral disturbance, psychotic disturbance, mood disturbance, and anxiety; R41.0 Disorientation, unspecified | CPT/HCPCS: A0425; A0428 ==